=== PATIENT | male | born 1965 | race Caucasian/White ===

== ENCOUNTER 2023-12-25 16:57 | Inpatient (IN) | payer OTHER, SELFPAY ==
[2023-12-25] VITALS (17 sets, daily range): BP systolic 93–157; BP diastolic 67–138; BMI 39.0; BMI 37.7
[2023-12-25 14:04] LABS: % Basophils 0.2 % (0-2); % Eosinophils 0.1 % (0-6); % Immature Granulocytes 0.5 % (0-0.5); % Lymphocytes 6.4 % (20.5-51.1); % Monocytes 6.7 % (1.7-9.3); % Neutrophils 86.1 % (42.2-75.2); Absolute Immature Granulocytes 0.1 10^3/uL (0-0.05); Absolute Lymphocytes 1.1 10^3/uL (1.2-3.4); Absolute Monocytes 1.2 10^3/uL (0.1-0.6); Absolute Neutrophils 15.2 10^3/uL (1.4-6.5); Hematocrit 38.8 % (39.0-52.0); Hemoglobin 13.1 g/dL (13.0-18.0); Mean Corp Hgb Conc. 33.8 g/dL (33.0-37.0); Mean Corpuscular Hgb 32.3 pg (27.0-31.0); Mean Corpuscular Volume 95.6 fL (80.0-94.0); Mean Platelet Volume 10.6 fL (7.4-10.4); Nucleated Red Blood Cells % 5.5 % (-); Platelet Count 178 10^3/uL (130-400); Red Blood Cell Count 4.06 10^6/uL (4.70-6.10); Red Cell Dist. Width 13.7 % (11.5-14.5); White Blood Cell Count 17.7 10^3/uL (4.8-10.8)
[2023-12-25] MEDS: CARDIZEM 10 MG IV (14:11)
[2023-12-25] MEDS: CARDIZEM 125 IV ×2 (14:15→22:03)
--- NOTE | 2023-12-25 14:16 | ED.GENMED ---
History of Present Illness
<Felicita Lewis [employer] CLAIMS ADJUSTER - Last Filed: 12/25/23 18:43>
General
Chief Complaint: Cardiac Symptoms
Source: patient and family (Brother at bedside)
Exam Limitations: none
Time Seen by Provider: 12/25/23 13:44
Nursing documentation reviewed up to this point in time: agreed with
Travel History
Have you had any contact with someone who has COVID-19?: No
Do you have any symptoms of coronavirus? Fever > 100 degrees, chills, cough, shortness of breath, sore throat, loss of taste or smell, muscle aches, or headache?: No
History of Present Illness
History of Present Illness:
58-year-old male with history of A-fib, on Eliquis, Cardiomyopathy, HFrEF EF 25%CHF, 06/2023 acute limb ischemia LLE with occlusion and had emergent revascularization surgery: LLE thrombectomy. Lives alone, presents with his brother at bedside.
Patient states he has had weakness, fatigue, 'a little' shortness of breath past 2 to 3 days. He denies feeling palpitations or chest pain. He denies N/V/D/C. Denies abdominal pain. Patient denies using Tylenol or drinking alcohol.
Past History
<Felicita Lewis, [employer] CLAIMS ADJUSTER - Last Filed: 12/25/23 18:43>
Past History
ED Past Medical History: Arrthythmia (Atrial fibrillation on Eliquis) and CHF
ED Past Surgical History: Other (LLE critical limb ischemia needing revascularization surgery 06/2023)
Patient has exhibited threatening behavior?: No
PSI?: No
Social History
Tobacco: Former smoker
Alcohol: None
Personal: Single
Living: alone
Review of Systems
<Felicita Lewis, [employer] CLAIMS ADJUSTER - Last Filed: 12/25/23 18:43>
Review of Systems
Allergies reviewed?: Yes
All Other Systems: ROS reviewed and negative except as documented in HPI and ROS
Constitutional: Reports fatigue; Denies fever or chills
Respiratory: Reports cough and trouble breathing
Cardiac: Denies chest pain, diaphoresis, palpitations or syncope
ABD/GI: Denies abdominal pain, nausea, vomiting or diarrhea
: Denies dysuria or difficulty voiding
Musculoskeletal: Denies edema
Skin: Reports no symptoms
Neurological: Reports no symptoms
Phy Exam
<Felicita Lewis, [employer] CLAIMS ADJUSTER - Last Filed: 12/25/23 18:43>
Physical Exam
Physical Exam:
GENERAL: No acute distress. A&Ox3.
CONSTITUTIONAL: Afebrile.
EYES: PERRL, conjunctivae normal
ENMT: moist mucus membranes, Pharynx nl
RESPIRATORY: Regular respirations, mildly labored, lungs clear, diminished BS throughout.
CARDIOVASCULAR:Tachycardia rate 140's, no murmurs, no rubs.
GI: Soft, nontender, normal BS
MUSCULOSKELETAL: Moves with ease. Well perfused. Trace bilateral ankle swelling
SKIN: Warm, dry, grayish-tinge
PSYCH: Normal mood and affect. Well kept, interactive and appropriate
NEUROLOGIC: Awake, alert and oriented. No focal neurological deficits
Course
<Felicita Lewis, [employer] CLAIMS ADJUSTER - Last Filed: 12/25/23 18:43>
Orders/Labs/Results
Orders:
Orders
12/25/23 13:28
Electrocardiogram (*1) Urgent
Reason for Study: Chest Pain
EKG- Treatment ONCE
12/25/23 13:57
Acetaminophen Urgent
Comment: ADD-ON
Complete Blood Count/With Diff Urgent
Comprehensive Metabolic Panel Urgent
Hepatitis A Antibody, Total Urgent
Comment: add-on
Hepatitis B Core Ab, Total Urgent
Comment: ADD-ON
Hepatitis B Surface Antibody Urgent
Comment: ADD-ON
Hepatitis C Antibody Urgent
Comment: ADD-ON
NT-proBNP Urgent
Comment: ADD-ON
TSH Urgent
Comment: ADD-ON
Troponin I Urgent
12/25/23 14:04
Diltiazem 125 mg/125 ml Nss [Cardizem] 125 mg in 125 ml IV NOW
Initial dose in mg/hr, then titrate:: 5
Titrate to keep:: Heart rate 80-100 bpm
Titrate by mg/hr:: 5 mg/hr
Frequency of titrations (minutes):: 15
Maximum dose in mg/hr:: 15
Diltiazem HCl [Cardizem] 10 mg IV NOW STA
12/25/23 14:20
Add On- LAB Urgent
Tests Added?: BNP
12/25/23 14:36
Cr Chest Portable [CR Chest Portable - 1 View] Urgent
Comment:
Reason For Exam: chest pressure
Reason Study Needs to be Portable: Patient Unstable
12/25/23 14:40
COVID-19 Antigen Urgent
Source: Nasal Swab
Influenza A+B Rapid Molecular Urgent
EMMIE Source: Nasal Swab
Specimen Description:
12/25/23 15:18
Add On- LAB Urgent
Tests Added?: hepatitis panel
12/25/23 15:29
Add On- LAB Urgent
Tests Added?: TSH
12/25/23 16:01
Protime/PTT Urgent
12/25/23 16:06
Lactic Acid Stat
12/25/23 16:42
CARDIOLOGY CONSULT Routine
Consulting Provider: Jose Angelo
Was physician already notified: Yes
Reason for consult: Afib
GASTROINTESTINAL CONSULT Routine
Consulting Provider: Janie Keys
Was physician already notified: Yes
Reason for consult: elevated lft
Devulcanizer Operator Consult Routine
Consulting Provider: Dereck Henderson
Was physician already notified: Yes
Reason for consult: ICU admission
12/25/23 16:43
Add On- LAB Urgent
Tests Added?: tylenol
Abdomen & Abd Doppler US [US Abd W Abd Doppler] Urgent
Comment:
Reason For Exam: elevated LFTS
12/25/23 16:44
Venous Doppler Lwr Ext Bilat [US Periph Venous LOWER Ext Julio] Urgent
Comment:
Reason For Exam: edema
12/25/23 16:45
Admit/Transfer Patient As Directed
Co-Sign Provider:
Level of Care: Inpatient admission
Assign to:: ICU
Physician / Group: Hospitalist
Diagnosis: Afib,Lactic acidosis,Elevated LFTS
Reason for Hospitalization: Afib,Lactic acidosis,Elevated LFTS
Expected length of stay greater than two midnights?: Yes
ELOS- Estimated Length of Stay in days: 4
I certify the patient meets the requirements for IP care: Yes
Urinalysis Reflex To Culture Urgent
Date Specimen was Collected: 12/25/23
Time Specimen was Collected: 16:51
12/25/23 16:48
Code Status As Directed
Resuscitation Status: Full Code
12/25/23 16:50
Furosemide [Lasix] 20 mg IV NOW STA
12/25/23 16:51
Blood Culture Q30M
EMMIE Source: Blood/Venous
Specimen Description:
12/25/23 16:55
Furosemide [Lasix] 40 mg IV NOW STA
12/25/23 17:57
Lactate Level [Lactic Acid] Q4H
Blood Culture Q30M
EMMIE Source: Blood/Venous
Specimen Description:
12/25/23 18:00
Apixaban [Eliquis] 5 mg PO BID
12/25/23 22:00
Lactate Level [Lactic Acid] Q4H
Abnormal Lab Results
12/25/23 12/25/2312/25/24
13:57 16:01 16:06
WBC 17.7 H 10^3/uL
(4.8-10.8)
RBC 4.06 L 10^6/uL
(4.70-6.10)
Hct 38.8 L %
(39.0-52.0)
MCV 95.6 H fL
(80.0-94.0)
MCH 32.3 H pg
(27.0-31.0)
MPV 10.6 H fL
(7.4-10.4)
Abs Immat Gran (auto) 0.1 H 10^3/uL
(0-0.05)
Absolute Neuts (auto) 15.2 H 10^3/uL
(1.4-6.5)
Absolute Lymphs (auto) 1.1 L 10^3/uL
(1.2-3.4)
Absolute Monos (auto) 1.2 H 10^3/uL
(0.1-0.6)
Neutrophils % 86.1 H %
(42.2-75.2)
Lymphocytes % 6.4 L %
(20.5-51.1)
PT 42.9 H Sec
(11.4-14.6)
Sodium 129 L mmol/L
(135-145)
Chloride 97 L mmol/L
(98-107)
Carbon Dioxide 16 L mmol/L
(22-30)
BUN 50 H mg/dl
(9-20)
Creatinine 2.0 H mg/dL
(0.7-1.3)
Glucose 134 H mg/dl
(70-99)
Lactic Acid 8.0 H* mmol/L
(0.7-2.0)
Total Bilirubin 5.0 H mg/dl
(0.2-1.3)
AST 1708 H* U/L
(17-59)
ALT 1248 H* U/L
(0-50)
Troponin I 0.101 H* ng/ml
Total Protein 6.2 L g/dl
(6.3-8.2)
TSH < 0.02 L uIU/ml
(0.47-4.68)
Acetaminophen < 10 L ug/ml
(10-30)
12/25/23 13:57
12/25/23 13:57
Vital Signs
Initial and Last Documented VS:
Initial Vital Signs
Pulse Resp Pulse Ox
56 18 97
12/25/23 13:27 12/25/23 13:27 12/25/23 13:27
Last Documented Vital Signs
Temp Pulse Resp BP Pulse Ox
97.4 F 131 39 110/83 95
12/25/23 13:30 12/25/23 17:15 12/25/23 17:15 12/25/23 17:12 12/25/23 17:15
<Lauren Coles MD - Last Filed: 12/25/23 16:06>
Orders/Labs/Results
Orders:
Orders
12/25/23 13:28
Electrocardiogram (*1) Urgent
Reason for Study: Chest Pain
EKG- Treatment ONCE
12/25/23 13:57
Acetaminophen Urgent
Comment: ADD-ON
Complete Blood Count/With Diff Urgent
Comprehensive Metabolic Panel Urgent
Hepatitis A Antibody, Total Urgent
Comment: add-on
Hepatitis B Core Ab, Total Urgent
Comment: ADD-ON
Hepatitis B Surface Antibody Urgent
Comment: ADD-ON
Hepatitis C Antibody Urgent
Comment: ADD-ON
NT-proBNP Urgent
Comment: ADD-ON
TSH Urgent
Comment: ADD-ON
Troponin I Urgent
12/25/23 14:04
Diltiazem 125 mg/125 ml Nss [Cardizem] 125 mg in 125 ml IV NOW
Initial dose in mg/hr, then titrate:: 5
Titrate to keep:: Heart rate 80-100 bpm
Titrate by mg/hr:: 5 mg/hr
Frequency of titrations (minutes):: 15
Maximum dose in mg/hr:: 15
Diltiazem HCl [Cardizem] 10 mg IV NOW STA
12/25/23 14:20
Add On- LAB Urgent
Tests Added?: BNP
12/25/23 14:36
Cr Chest Portable [CR Chest Portable - 1 View] Urgent
Comment:
Reason For Exam: chest pressure
Reason Study Needs to be Portable: Patient Unstable
12/25/23 14:40
COVID-19 Antigen Urgent
Source: Nasal Swab
Influenza A+B Rapid Molecular Urgent
EMMIE Source: Nasal Swab
Specimen Description:
12/25/23 15:18
Add On- LAB Urgent
Tests Added?: hepatitis panel
12/25/23 15:29
Add On- LAB Urgent
Tests Added?: TSH
12/25/23 16:01
Protime/PTT Urgent
12/25/23 16:06
Lactic Acid Stat
12/25/23 16:42
CARDIOLOGY CONSULT Routine
Consulting Provider: Jose Angelo
Was physician already notified: Yes
Reason for consult: Afib
GASTROINTESTINAL CONSULT Routine
Consulting Provider: Janie Keys
Was physician already notified: Yes
Reason for consult: elevated lft
Devulcanizer Operator Consult Routine
Consulting Provider: Dereck Henderson
Was physician already notified: Yes
Reason for consult: ICU admission
12/25/23 16:43
Add On- LAB Urgent
Tests Added?: tylenol
Abdomen & Abd Doppler US [US Abd W Abd Doppler] Urgent
Comment:
Reason For Exam: elevated LFTS
12/25/23 16:44
Venous Doppler Lwr Ext Bilat [US Periph Venous LOWER Ext Julio] Urgent
Comment:
Reason For Exam: edema
12/25/23 16:45
Admit/Transfer Patient As Directed
Co-Sign Provider:
Level of Care: Inpatient admission
Assign to:: ICU
Physician / Group: Hospitalist
Diagnosis: Afib,Lactic acidosis,Elevated LFTS
Reason for Hospitalization: Afib,Lactic acidosis,Elevated LFTS
Expected length of stay greater than two midnights?: Yes
ELOS- Estimated Length of Stay in days: 4
I certify the patient meets the requirements for IP care: Yes
Urinalysis Reflex To Culture Urgent
Date Specimen was Collected: 12/25/23
Time Specimen was Collected: 16:51
12/25/23 16:48
Code Status As Directed
Resuscitation Status: Full Code
12/25/23 16:50
Furosemide [Lasix] 20 mg IV NOW STA
12/25/23 16:51
Blood Culture Q30M
EMMIE Source: Blood/Venous
Specimen Description:
12/25/23 16:55
Furosemide [Lasix] 40 mg IV NOW STA
12/25/23 17:57
Lactate Level [Lactic Acid] Q4H
Blood Culture Q30M
EMMIE Source: Blood/Venous
Specimen Description:
12/25/23 18:00
Apixaban [Eliquis] 5 mg PO BID
12/25/23 22:00
Lactate Level [Lactic Acid] Q4H
Abnormal Lab Results
12/25/23 12/25/23 12/25/23
13:57 16:01 16:06
WBC 17.7 H 10^3/uL
(4.8-10.8)
RBC 4.06 L 10^6/uL
(4.70-6.10)
Hct 38.8 L %
(39.0-52.0)
MCV 95.6 H fL
(80.0-94.0)
MCH 32.3 H pg
(27.0-31.0)
MPV 10.6 H fL
(7.4-10.4)
Abs Immat Gran (auto) 0.1 H 10^3/uL
(0-0.05)
Absolute Neuts (auto) 15.2 H 10^3/uL
(1.4-6.5)
Absolute Lymphs (auto) 1.1 L 10^3/uL
(1.2-3.4)
Absolute Monos (auto) 1.2 H 10^3/uL
(0.1-0.6)
Neutrophils % 86.1 H %
(42.2-75.2)
Lymphocytes % 6.4 L %
(20.5-51.1)
PT 42.9 H Sec
(11.4-14.6)
Sodium 129 L mmol/L
(135-145)
Chloride 97 L mmol/L
(98-107)
Carbon Dioxide 16 L mmol/L
(22-30)
BUN 50 H mg/dl
(9-20)
Creatinine 2.0 H mg/dL
(0.7-1.3)
Glucose 134 H mg/dl
(70-99)
Lactic Acid 8.0 H* mmol/L
(0.7-2.0)
Total Bilirubin 5.0 H mg/dl
(0.2-1.3)
AST 1708 H* U/L
(17-59)
ALT 1248 H* U/L
(0-50)
Troponin I 0.101 H* ng/ml
Total Protein 6.2 L g/dl
(6.3-8.2)
TSH < 0.02 L uIU/ml
(0.47-4.68)
Acetaminophen < 10 L ug/ml
(10-30)
12/25/23 13:57
12/25/23 13:57
Vital Signs
Initial and Last Documented VS:
Initial Vital Signs
Pulse Resp Pulse Ox
56 18 97
12/25/23 13:27 12/25/23 13:27 12/25/23 13:27
Last Documented Vital Signs
Temp Pulse Resp BP Pulse Ox
97.4 F 131 39 110/83 95
12/25/23 13:30 12/25/23 17:15 12/25/23 17:15 12/25/23 17:12 12/25/23 17:15
<Felicita Lewis [employer] CLAIMS ADJUSTER - Last Filed: 12/25/23 18:43>
MDM/Problems Addressed
Differential Diagnosis Includes:
CHF, UT, Cardiogenic shock
MDM/Problems Addressed:
58-year-old male with history of A-fib, on Eliquis, Cardiomyopathy, HFrEF EF 25%CHF, 06/2023 acute limb ischemia LLE with occlusion and had emergent revascularization surgery: LLE thrombectomy. Lives alone, presents with his brother at bedside.
Patient states he has had weakness, fatigue, 'a little' shortness of breath past 2 to 3 days. He denies feeling palpitations or chest pain. He denies N/V/D/C. Denies abdominal pain. Patient denies using Tylenol or drinking alcohol.
Last admission 06/2023 records reviewed, Has hx alcohol use disorder as well as smoking. Had similar symptoms of cardiogenic shock, A-fib with RVR was initially diagnosed then.
Patient presents alert cooperative but in moderate distress with tachycardia on arrival. EKG showing A-fib with RVR with a heart rate in the 140s to 150s. Normotensive.
12/25/2023 1518 PM
CBC: WBC 17.7
CMP: Sodium 129, bicarb 16 BUN/creat 50/2.0 GFR 37.74
Anion gap 16
AST 1708
ALT 1248
BNP 57362
Troponin 0.101
Influenza test is negative
COVID test: Negative
12/25/2023 1539 PM
Heart rate in the 130s to 140s, blood pressure remaining stable, patient admits that he is not compliant to taking his medications including Eliquis so we will hold off on cardioversion for now
Dr. Coles in to evaluate patient.
12/25/2023 1636 PM
Chest x-ray radiology report read: No significant change, no acute cardiopulmonary process, mild cardiomegaly
HR minimally improved on Cardizem drip
Critical care statement: A total of 40 minutes of critical care time was provided for this patient. This includes management of unstable vital signs, evaluation of the patient at bedside, reviewing the patient's pertinent medical records, discussion
with consultants, review of old EKGs and review of pertinent medical records. This time with separate from time utilized to perform the aforementioned documented procedures
12/25/2023 1700 PM
Cardiology in to evaluate
Hospitalist in to admit
12/25/2023 1838 PM
RN reports patient is unable to urinate. Bladder scan reveals 500 mL of urine, Wilkerson catheter ordered.
Patient heart rate 118-120 BP 104/72
Chronic conditions affecting care: HTN, Cardiomyopathy, Arrhythmia and PVD
<Felicita Lewis [employer] CLAIMS ADJUSTER - Last Filed: 12/25/23 18:43>
*Critical Care Note
Total Time (30-74mins, 75-104mins- exclusive of procedures): Not Applicable
ED Attending Note
<Felicita Lewis [employer] CLAIMS ADJUSTER - Last Filed: 12/25/23 18:43>
-
Portions of this chart may have been created with voice recognition software.� Occasional wrong word or��sound alike� substitutions may have occurred due to the inherent limitations of voice recognition software.
<Lauren Coles MD - Last Filed: 12/25/23 16:06>
ED Attending Note
Patient seen and examined by attending physician: Yes
I performed the substantive portion of visit, reviewed & personally made and approve the management plan that is documented in note by myself or ERIN.: Yes
ED Attending Note:
On exam, patient appears grayish, pale and clammy. He is fully awake however. He has bilateral lung crackles and has an irregular rapid heartbeat. Patient has cool extremities to the touch. I am worried about cardiogenic shock. Given that
patient is noncompliant with his blood thinners, we cannot cardiovert him. We will discuss case with hospitalist and construction carpenters helper.
35 minutes critical care given to the patient by me including speaking to cardiology, hospitalist, reviewing his recent discharge summary from last year when he was admitted for limb ischemia from cardio embolic process
Discharge Plan
Departure
Patient Disposition: Admit
Date of Disposition: 12/25/23
Time of Disposition: 15:46
Admit to: ICU
Admit to doctor: Ellis
Presentation/result/management discussed w/ accepting MD/DO: Hospitalist
Condition: Serious
Covid-19: Negative COVID-19
Discharge Problem:
Atrial fibrillation with rapid ventricular response, Shortness of breath, Elevated LFTs, NAM (acute kidney injury)
Interventions
Interventions:
*Risk Screen - Suicide Last Done: 12/25/23 13:44
*General Assessment Last Done: 12/25/23 13:44
*Neglect/Abuse Screening Last Done: 12/25/23 13:44
ED- Fall Risk Assessment Last Done: 12/25/23 13:44
*ED COVID-19 Vaccine History Last Done: 12/25/23 13:44
ED- Pulmonary Assessment Last Done: 12/25/23 13:44
ED- Cardiac Assessment Last Done: 12/25/23 13:44
[2023-12-25 14:27] LABS: Albumin 3.6 g/dl (3.5-5.0); Alkaline Phosphatase 115 U/L (38-126); Blood Urea Nitrogen 50 mg/dl (9-20); Calcium 8.8 mg/dl (8.4-10.2); Carbon Dioxide 16 mmol/L (22-30); Chloride 97 mmol/L (98-107); Estimated Creatinine Clearance 56 ml/min; Glucose 134 mg/dl (70-99); Potassium 5.1 mmol/L (3.5-5.1); Sodium 129 mmol/L (135-145); Total Protein 6.2 g/dl (6.3-8.2); eGFR 37.74
[2023-12-25 14:34] LABS: Troponin I 0.101 ng/ml
[2023-12-25 14:41] LABS: ALT (SGPT) 1248 U/L (0-50)
[2023-12-25 14:52] LABS: NT-proBNP 23100 pg/ml
[2023-12-25 15:06] LABS: AST (SGOT) 1708 U/L (17-59)
[2023-12-25 15:28] LABS: COVID-19 Antigen Negative (Negative)
--- NOTE | 2023-12-25 16:13 | CON.CAR ---
Consultation
Consultation Request
Date/Time Consultation Requested: 12/25/2023 at 1600
Date/Time Consultation Performed: 12/25/2023 at 1630
Requesting Provider: Dr. Coles
Performing Provider: Jose Angelo
Reason for Consultation: Atrial fibrillation with rapid ventricular response
Medical History
-
History of Present Illness:
Unfortunate 58-year-old man who was admitted in July with cardioembolic occlusion of the left common femoral artery related to atrial fibrillation and presumed tachycardia mediated cardiomyopathy with an EF of 25%. He had hyperthyroidism. He
was seen once in our office, was to begin amiodarone, but thereafter lost to follow-up. He states he takes his medications 'from time to time' over the last week, he has felt progressively unwell and his brother urged him to come to the emergency
department. He is short of breath, fatigued, initially appeared in a low output state in the ER, was started on diltiazem and now feels better. He says he does not drink much alcohol. He says he quit smoking 2 months ago. 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
but thinks he has last worked over the summer and does not not think he could work now. His brother is at the bedside.
PMH:
Chronic HFrEF
Hypothyroidism
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
Persistent atrial fibrillation, first discovered July 2023
Noncompliance
Depression
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
Past Medical History
Past Medical History: Other (See HPI)
Past Surgical History: Other (Left common femoral embolectomy 2022)
Social History
Tobacco: Smoker
Drug: None
Personal: Single
Living: Alone
Family History
Family History: Reviewed & Not Pertinent
Allergies / Home Medications
Allergy/AdvReac Type Severity Reaction Status Date / Time
No Known Allergies Allergy Unverified 07/13/18 14:03
Medication Instructions Recorded Confirmed Type
apixaban 5 mg tablet (Eliquis) 5 mg PO BID #60 tabs 07/15/23 12/25/23 Rx
carvedilol 6.25 mg tablet 6.25 mg PO BID #60 tabs 07/15/23 12/25/23 Rx
furosemide 40 mg tablet (Lasix) 40 mg PO DAILY #30 tabs 07/15/23 12/25/23 Rx
lisinopril 2.5 mg tablet 2.5 mg PO DAILY #30 tabs 07/15/23 12/25/23 Rx
methimazole 10 mg tablet 10 mg PO BID #60 tabs 07/15/23 12/25/23 Rx
potassium chloride 20 mEq 20 meq PO DAILY #30 tabs 07/15/23 12/25/23 Rx
tablet,extended release(part/cryst)
Review of Systems
-
All other systems: Negative unless noted
Physical Exam
Vital Signs
Temp Pulse Resp BP Pulse Ox
36.3 C 125 35 127/90 100
12/25/23 13:30 12/25/23 16:00 12/25/23 16:00 12/25/23 16:00 12/25/23 16:00
Lab Results
12/25/23 13:57
12/25/23 13:57
Troponin I 0.101 ng/ml H* 12/25/23 13:57
Vbp-D-Kbazvyjujky Pept 80083 pg/ml 12/25/23 13:57
Physical Exam
General: Other (Chronically ill-appearing, some respiratory distress,)
HEENT: Normocephalic
Respiratory: Other (Diminished breath sounds)
Cardiac: Irregular Rhythm, Murmur (Soft systolic murmur at apex) and JVD (Elevated)
Musculoskeletal: Edema (Mild edema)
Skin: Dry
Neuro: AO x 3
Psych: Other (Flat affect)
Impression / Plan
-
Impression:
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
Persistent atrial fibrillation with rapid ventricular response, first diagnosed July 2023
Hyperthyroidism
Shock liver
Acute kidney injury
Noncompliance
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
Tobacco dependance
Echo 07/04/2023: EF is 25%, dilated RV, RV hypokinesis, biatrial dilatation, mild to moderate MR, mild TR, pulmonary artery systolic pressure 45 mmHg
Office ECG July 2023 atrial fibrillation, nonspecific ST and T wave changes, possible lateral MA
Plan:
Difficult situation, he is relatively hypotensive, tachycardic, has evidence of acute hepatic injury and acute kidney injury, presumably related to acute on chronic HFrEF with congestion of the liver and marginal cardiac output.
Amiodarone is contraindicated at this time. Diltiazem is relatively contraindicated in the setting of HFpEF but options are limited. Unclear that he would tolerate a beta-renee. Will add 2 doses of digoxin short-term to assist in rate control.
He may need phenylephrine to support his blood pressure. Norepinephrine may be required.
Start IV heparin
Recheck echocardiogram.
Utility of cardioversion at present limited and contraindicated without transesophageal echocardiography.
Eventually, if he is willing to be compliant, cardioversion, PVI, GDMT all options to consider. PVI is probably a class I indication in his particular case if we can get him through the procedure.
Data Reviewed
-
EKG: Tracing Personally Visualized and interpreted (Atrial fibrillation with rapid ventricular response, left axis deviation, LVH, suspected anterolateral myocardial infarction, possible inferior myocardial infarction)
Radiology: Image Personally Visualized and interpreted (Chest x-ray shows massive cardiomegaly)
Labs: Labs Reviewed by me (Hemoglobin is 13.1 white count is 17.7, platelets 178, sodium 129, potassium 5.1, CO2 is 16, anion gap is 16, BUN/creatinine are 50 and 2.0, creatinine had been 0.9, AST is 1708, ALT is 1248, troponin is 0.101, proBNP is
23,100,)
Old Records: Reviewed
[2023-12-25 16:19] LABS: PT 42.9 Sec (11.4-14.6)
[2023-12-25 16:20] LABS: APTT 33.3 Sec (23.4-35.0)
--- NOTE | 2023-12-25 16:26 | HPS.HSE ---
Family Physician
-
Family Physician: * NONE
Chief Complaint
-
Shortness of breath
History of Present Illness
58-year-old male presented to the hospital with shortness of breath which he stated started 2 days ago. 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 He does not take medicines every single day as he is
supposed to may have missed doses. He does not weigh himself at home or watch salt and fluid restriction. Had some chest pain this morning but not now. Denies any use of Tylenol. Denies any dysuria, fever or cough. Denies any abdominal pain.
Some abdominal distention but no pain.
Medical History
Past Medical History
Past Medical History: Reports CHF
Additional Past Medical History:
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
Past Surgical History: Reports Other
Additional Past Surgical History:
Left lower extremity thrombectomy June 2023
Social History
Tobacco: Former Smoker (Quit less than a year ago)
Alcohol: Occasional (last use was august 2023)
Living: Alone
Employment: Employed
Family History
Family History: CAD (mom)
Allergies / Home Medications
Allergies reflects when Allergies were last updated in [facility].
Home Medications with original date entered in [facility]
Allergy/Medication List:
Allergies
Allergy/AdvReac Type Severity Reaction Status Date / Time
No Known Allergies Allergy Unverified 07/13/18 14:03
Home Medications
apixaban 5 mg tablet (Eliquis) 5 mg PO BID #60 tabs 07/15/23
carvedilol 6.25 mg tablet 6.25 mg PO BID #60 tabs 07/15/23
furosemide 40 mg tablet (Lasix) 40 mg PO DAILY #30 tabs 07/15/23
lisinopril 2.5 mg tablet 2.5 mg PO DAILY #30 tabs 07/15/23
methimazole 10 mg tablet 10 mg PO BID #60 tabs 07/15/23
potassium chloride 20 mEq tablet,extended release(part/cryst) 20 meq PO DAILY #30 tabs 07/15/23
Review of Systems
-
A 12 point ROS was completed and negative except as noted: Yes
Respiratory: Denies Cough
Cardiac: Reports Chest Pain
Abdomen/GI: Reports Other (distension); Denies Abdominal Pain
Physical Exam
Vital Signs
Vital Signs
Temp Pulse Resp BP Pulse Ox
97.4 F 125 35 127/90 100
12/25/23 13:30 12/25/23 16:00 12/25/23 16:00 12/25/23 16:00 12/25/23 16:00
Physical Exam
General: Respiratory Distress
Respiratory: Decreased Breath Sounds (at bases)
Cardiac: S1/S2, Irregular Rhythm, Tachycardia and Murmur (apex)
GI: Soft, Non Tender, Normal Bowel Sounds and Distended
Musculoskeletal: Edema, Left Lower Extremity and Edema, Right Lower Extremity
Neuro: AO x 3 and No Motor Deficits
Psych: Intact Judgment/Insight
Laboratory Results
-
12/25/23 13:57
12/25/23 13:57
Laboratory Results
Lactic Acid Cancelled 12/25/23 15:49
Total Bilirubin 5.0 mg/dl (0.2-1.3) H 12/25/23 13:57
AST 1708 U/L (17-59) H* 12/25/23 13:57
ALT 1248 U/L (0-50) H* 12/25/23 13:57
Alkaline Phosphatase 115 U/L (38-126) 12/25/23 13:57
Troponin I 0.101 ng/ml H* 12/25/23 13:57
Data Reviewed
-
Diagnostic Radiology: Image Personally Visualized and interpreted (No infiltrates)
Medical Tests (Nuc Med, Echo, EKG etc): Image Personally Visualized and interpreted (Atrial fibrillation with rapid ventricular response, left axis deviation, anterolateral infarct age undetermined)
Impression/Plan
-
IMPRESSION/PLAN:
# Shortness of breath
Admit to ICU
Looks fluid overloaded clinically
Thromboembolic disease is a consideration-hold off on CTA given elevated creat. Eliquis being resumed.
Lasix 40 mg IV now
Acute on chronic heart failure with reduced ejection fraction
May have right heart failure also-Never had sleep study
I do not think patient has had a heart catheterization-type of cardiomyopathy unclear
Needs an echo
# Elevated lactic acid
Likely secondary to liver dysfunction and CHF with fluid overload
No evidence of infection
Check a procalcitonin level
Check blood cultures
Urinalysis and culture
Chest x-ray without evidence of pneumonia
If there is any indication on ultrasound or urinalysis we will start antibiotic
Over the patient has fevers we will start antibiotics
# Elevated LFTs
Looks like shock liver however no hypotension noted
Hepatic congestion need to be considered however numbers are too high for that
Check Doppler and ultrasound of the abdomen
Check Tylenol level
Hepatitis panel has been ordered-pending
GI evaluation
# Atrial fibrillation with rapid ventricular rate
Continue Coreg
Cardizem drip
Anticoagulation with Eliquis
Does not look like his current medications list has amiodarone
# Elevated troponin-trend
# Hyperthyroidism
Low TSH noted. Check T4 level
Continue methimazole
# Acute kidney injury
Likely secondary to cardiorenal reasons
Follow on Lasix
Hold lisinopril and potassium
# Hyponatremia-looks hypervolemic
# History of cardioembolic ischemia to left lower extremity status post thrombectomy left common femoral vein June 2023
# Obesity
# Ex-smoker
# DVT prophylaxis-Eliquis
# Full code
CC time 50 minutes
Discussed with ER attending
Discussed with patient's brother at bedside reviewed that he is extremely sick and that his liver tests are really abnormal. Also discussed that patient is being getting admitted to the ICU
Prognosis guarded
[2023-12-25 16:29] LABS: TSH < 0.02 uIU/ml (0.47-4.68)
[2023-12-25 17:10] LABS: Acetaminophen < 10 ug/ml (10-30)
[2023-12-25] MEDS: LASIX 40 MG IV (17:12)
[2023-12-25] MEDS: SODIUM BICARBONATE 650 MG PO ×2 (17:56→21:47)
[2023-12-25 18:28] LABS: Lactic Acid 7.4 mmol/L (0.7-2.0)
[2023-12-25 18:43] LABS: Procalcitonin 3.35 ng/ml (0.0-0.25)
--- NOTE | 2023-12-25 18:49 | W.PN.UPDATE ---
Addendum entered and electronically signed by Marcin Corral MD 12/25/23 18:59:
Difficult situation with elevated INR therefore we will hold Tanya skinner.
Original Note:
Update Note
Progress Note Update
Elevated white count and elevated procalcitonin noted
Unclear if this is related to liver and kidney dysfunction
Will cover with antibiotics pending cultures-Zosyn ordered
U/A and USS pending
[2023-12-25] MEDS: ZOSYN 50 IV (19:44)
[2023-12-25] MEDS: LANOXIN 250 MCG IV (19:44)
[2023-12-25 19:56] LABS: Urine Albumin Trace (Neg - Trace); Urine Bilirubin Negative (Negative); Urine Character Clear (Clear); Urine Color Yellow; Urine Glucose Negative (Negative); Urine Ketone Trace (Negative); Urine Leukocyte Negative (Negative); Urine Nitrite Negative (Negative); Urine Occult Blood Trace (Negative); Urine Specific Gravity 1.025 (<1.030); Urine Urobilinogen 1+ (Neg - 1+)
--- NOTE | 2023-12-25 20:00 | PTCARENOTE ---
pt admit to ICU from ER, oriented x 3, AFib HR 1teens, RA IV x 2, cardizem gtt infusing at 15mg/hr. candelaria cath present, draining nicole urine. CHG cloths. POC discussed, call marshall with pt.
[2023-12-25 20:03] LABS: Urine Hyaline Cast >15 /LPF (0-2)
[2023-12-25 20:04] LABS: Urine Bacteria Few (Negative); Urine Red Blood Cell 0-2 /HPF (0-2); Urine White Cell None Seen /HPF (0-5)
[2023-12-25] MEDS: COREG 6.25 MG PO (21:46)
[2023-12-25] MEDS: TAPAZOLE 10 MG PO (21:47)
[2023-12-25 22:15] LABS: Lactic Acid 6.9 mmol/L (0.7-2.0)
[2023-12-26] VITALS (24 sets, daily range): BP systolic 89–125; BP diastolic 57–108; BMI 37.7
--- NOTE | 2023-12-26 00:30 | PTCARENOTE ---
pt restless/impulsive, removing monitors and 02 multiple times, attempts made to get OOB, diaphoretic, denies pain, attempts made to reorient patient. pt sleeping/restful in between episodes of impulsiveness. HR 70-80s- weaning cardizem gtt down.
no other changes in assessment.
--- NOTE | 2023-12-26 02:00 | PTCARENOTE ---
pt ordered for additional digoxin dose at 0200, HR now 60-70s, cardizem gtt off at 0112, hold dose for now per Reshma & monitor HR.
[2023-12-26] MEDS: ZOSYN 50 IV ×4 (02:30→21:45)
[2023-12-26 02:39] LABS: % Basophils 0.2 % (0-2); % Eosinophils 0.1 % (0-6); % Immature Granulocytes 0.8 % (0-0.5); % Lymphocytes 8.5 % (20.5-51.1); % Monocytes 8.5 % (1.7-9.3); % Neutrophils 81.9 % (42.2-75.2); Absolute Immature Granulocytes 0.1 10^3/uL (0-0.05); Absolute Lymphocytes 1.5 10^3/uL (1.2-3.4); Absolute Monocytes 1.5 10^3/uL (0.1-0.6); Absolute Neutrophils 14.6 10^3/uL (1.4-6.5); Hematocrit 39.8 % (39.0-52.0); Hemoglobin 13.2 g/dL (13.0-18.0); Mean Corp Hgb Conc. 33.2 g/dL (33.0-37.0); Mean Corpuscular Hgb 31.6 pg (27.0-31.0); Mean Corpuscular Volume 95.2 fL (80.0-94.0); Mean Platelet Volume 10.9 fL (7.4-10.4); Nucleated Red Blood Cells % 8.4 % (-); Platelet Count 165 10^3/uL (130-400); Red Blood Cell Count 4.18 10^6/uL (4.70-6.10); Red Cell Dist. Width 13.9 % (11.5-14.5); White Blood Cell Count 17.8 10^3/uL (4.8-10.8)
[2023-12-26 02:53] LABS: Lactic Acid 9.4 mmol/L (0.7-2.0)
[2023-12-26 03:14] LABS: Troponin I 0.099 ng/ml
[2023-12-26 03:15] LABS: ALT (SGPT) 969 U/L (0-50); AST (SGOT) 1059 U/L (17-59); Albumin 3.3 g/dl (3.5-5.0); Alkaline Phosphatase 108 U/L (38-126); Blood Urea Nitrogen 60 mg/dl (9-20); Calcium 8.3 mg/dl (8.4-10.2); Carbon Dioxide 16 mmol/L (22-30); Chloride 98 mmol/L (98-107); Estimated Creatinine Clearance 50 ml/min; Glucose 114 mg/dl (70-99); Magnesium 3.2 mg/dl (1.6-2.3); Potassium 6.3 mmol/L (3.5-5.1); Sodium 129 mmol/L (135-145); Total Bilirubin 6.2 mg/dl (0.2-1.3); Total Protein 5.7 g/dl (6.3-8.2); eGFR 33.66
[2023-12-26 03:27] LABS: TSH < 0.02 uIU/ml (0.47-4.68)
[2023-12-26 03:46] LABS: Vitamin B12 > 1000 pg/ml (239-931)
[2023-12-26] MEDS: NOVOLIN R 10 UNITS IV (04:25)
[2023-12-26] MEDS: DEXTROSE 50% SYRINGE 25 GRAMS IV (04:25)
--- NOTE | 2023-12-26 04:25 | PTCARENOTE ---
K+ 6.3, D50/insulin per MAR, no further changes in assessment.
[2023-12-26] MEDS: SODIUM BICARBONATE 50 MEQ IV (04:26)
--- NOTE | 2023-12-26 05:45 | PTCARENOTE ---
pt continues to remove BP cuff, nasal cannula, pulse ox. pt again reminded of importance of leaving monitors and [address] Sat mid to high 80s on RA when removes NC.
--- NOTE | 2023-12-26 07:03 | CON.GI ---
Addendum entered and electronically signed by Janie Keys MD 12/26/23 16:11:
I saw and examined the patient.
The STEREO COMPILER or PA's note was reviewed and I agree with the note.
Comment: 58-year-old male with history of atrial fibrillation, cardiomyopathy, congestive heart failure, femoral artery occlusion status post thrombectomy in June 2023 presenting with shortness of breath, fluid overload, noted to have
leukocytosis, elevated troponin and lactate but also markedly elevated LFTs with AST and ALT and 1000's range. Reviewing previous LFTs from June 2023, transaminases within normal range, mildly elevated total bilirubin at 1.[address]
scan of the chest/abdomen/pelvis without any abnormalities of the liver. Abdominal ultrasound with Doppler showing hepatomegaly and fatty liver but otherwise no evidence of thrombus.
From a GI standpoint, he denies any abdominal pain, nausea or vomiting. Denies any heartburn or trouble swallowing. No constipation, diarrhea, blood in the stool or black stool. No history of jaundice or hepatitis. No previous GI evaluation with
upper endoscopy or colonoscopy either.
No family history of colon cancer or polyps.
No history of liver disease in the family.
-Elevated transaminases and bilirubin, likely shock liver/ischemic hepatopathy given transaminases were in the thousands range
Abdominal ultrasound and CT scan without any evidence of cirrhosis or hepatic lesions.
Await hepatitis serologies. No history of Tylenol intake.
Keep MAP more than 60
Will trend LFTs, if going up we will add blood work for underlying liver disease panel.
Will follow for now
-Elevated creatinine noted as well.
Original Note:
Consultation
-
Date/Time Consultation Requested: 12/25/23 1645
Date/Time Consultation Performed: 12/26/23 0830
Requesting Provider: Marcin Billingsley MD
Performing Provider: JEANINE Aguayo, Janie Keys MD
Reason for Consultation: increased LFT's
Medical History
Chief Complaint / HPI
Chief Complaint: shortness of breath, weakness
History of Present Illness:
Pt is a 58yo with hx CHF, tachycardia with cardiomyopathy and hypothyroidism, afib, fem artery occlusion with thrombectomy in June 2023 and medical non compliance. He was lost in follow up and now presents with weakness with shortness of breath
with concern for fluid overload. On admission noted with leukocytosis, hyponatremia, elevated troponin elevated lactate, NAM and marked elevated LFT's with bili 5, AST 1708, ALT 1248, alk phos 115. After admission with further rise in K to 6.3.
12/25 US abd with doppler- HM, fatty infiltration of liver, limited doppler, pancreas not well seen. abnormal gallbladder with thickening sludge in gallbladder no stones. possible chronic cholecystitis, small amount free fluid.
Pt denies hx hepatitis or liver issues in past. No currently excessive Tylenol, supplements or new medication. Hx social ETOH last in August and prior tobacco abuse. Pt admits to dry throat and weakness but denies dysphagia, GERD, nasuea,
vomiting, abdominal pain, diarrhea, constipation or rectal bleeding. No EGD or colonoscopy in past. No prior EGD or colonsocopy in past.
Past Medical History
Past Medical History: Arrhythmias (tachy mediated cardiomyopathy, afib ), CHF, Hypothyroidism, Psychiatric (depression) and Other (cardiomolic occlusion of left common femoral artery with thrombectomy 06/2023 medical non compliance)
Social History
Tobacco: Former Smoker
Alcohol: Occasional
Drug: None
Personal: Single
Living: Alone
Employment: Retired
Family History
Family History: Other (no family hx colon CA or polyps)
Allergies / Home Medications
Allergy/AdvReac Type Severity Reaction Status Date / Time
No Known Allergies Allergy Unverified 07/13/18 14:03
Medication Instructions Recorded
apixaban 5 mg tablet (Eliquis) 5 mg PO BID #60 tabs 07/15/23
carvedilol 6.25 mg tablet 6.25 mg PO BID #60 tabs 07/15/23
furosemide 40 mg tablet (Lasix) 40 mg PO DAILY #30 tabs 07/15/23
lisinopril 2.5 mg tablet 2.5 mg PO DAILY #30 tabs 07/15/23
methimazole 10 mg tablet 10 mg PO BID #60 tabs 07/15/23
potassium chloride 20 mEq 20 meq PO DAILY #30 tabs 07/15/23
tablet,extended release(part/cryst)
Review of Systems
-
History Source: Patient
Constitutional: Reports Fatigue
EENT: Reports No Symptoms
Respiratory: Reports Trouble Breathing
Cardiac: Reports No Symptoms
Abdomen/GI: Reports No Symptoms
: Reports No Symptoms
Musculoskeletal: Reports No Symptoms
Skin: Reports No Symptoms
Neurological: Reports Weakness
Endocrine: Reports No Symptoms
Hematologic/Lymphatic: Reports No Symptoms
Vital Signs
Temp Pulse Resp BP Pulse Ox
98.4 F 82 16 103/74 81
12/26/23 04:00 12/26/23 06:30 12/26/23 06:30 12/26/23 06:08 12/26/23 06:30
Physical Exam
Exam
General: Well Developed, Well Nourished and No Apparent Distress
Respiratory: Other (decreased bases )
Cardiac: Regular Rhythm
GI: Soft, Non Tender and Non Distended
Musculoskeletal: No Clubbing and No Cyanosis
Skin: Warm and Dry
Neuro: Awake, Alert and AO x 3
Psych: Calm
Results
WBC 17.8 10^3/uL (4.8-10.8) H 12/26/23 02:23
Hgb 13.2 g/dL (13.0-18.0) 12/26/23 02:23
Hct 39.8 % (39.0-52.0) 12/26/23 02:23
MCV 95.2 fL (80.0-94.0) H 12/26/23 02:23
Plt Count 165 10^3/uL (130-400) 12/26/23 02:23
Absolute Neuts (auto) 14.6 10^3/uL (1.4-6.5) H 12/26/23 02:23
PT 42.9 Sec (11.4-14.6) H 12/25/23 16:01
INR 4.50 12/25/23 16:01
APTT 33.3 Sec (23.4-35.0) 12/25/23 16:01
Sodium 129 mmol/L (135-145) L 12/26/23 02:23
Potassium 6.3 mmol/L (3.5-5.1) H* 12/26/23 02:23
Chloride 98 mmol/L (98-107) 12/26/23 02:23
Carbon Dioxide 16 mmol/L (22-30) L 12/26/23 02:23
BUN 60 mg/dl (9-20) H 12/26/23 02:23
Creatinine 2.2 mg/dL (0.7-1.3) H 12/26/23 02:23
Calcium 8.3 mg/dl (8.4-10.2) L 12/26/23 02:23
Total Bilirubin 6.2 mg/dl (0.2-1.3) H 12/26/23 02:23
AST 1059 U/L (17-59) H* 12/26/23 02:23
ALT 969 U/L (0-50) H* 12/26/23 02:23
Alkaline Phosphatase 108 U/L (38-126) 12/26/23 02:23
Diagnostic Image Results:
12/25/23 US abdomen with doppler
1. � Hepatomegaly. Fatty infiltration of the liver. No biliary ductal dilatation.
2. � Limited Doppler evaluation. Patent vessels. Patient is in atrial fibrillation, limiting evaluation. High resistance waveform in the hepatic artery.
3. � Pancreas not well seen.
4. � Abnormal gallbladder, with gallbladder wall thickening. Negative sonographic Castorena's sign. Sludge in the gallbladder. No definite gallstones. Consider nuclear medicine imaging to further evaluate gallbladder function. This may represent
chronic cholecystitis, however does not meet all of the criteria for acute cholecystitis. There is a small amount of free fluid in the right upper quadrant.
12/25/23 US - LE
IMPRESSION: No evidence of deep venous thrombosis bilaterally.
Prior GI Procedures:
EGD: none
Colonoscopy: none
Assessment / Plan
-
Pt is a 58yo with hx CHF, tachycardia with cardiomyopathy and hypothyroidism, afib, fem artery occlusion with thrombectomy in June 2023 and medical non compliance. He was lost in follow up and now presents with weakness with shortness of breath
with concern for fluid overload. On admission noted with leukocytosis, hyponatremia, elevated troponin elevated lactate, NAM and marked elevated LFT's with bili 5, AST 1708, ALT 1248, alk phos 115. After admission with further rise in K to 6.3.
12/25 US abd with doppler- HM, fatty infiltration of liver, limited doppler, pancreas not well seen. abnormal gallbladder with thickening sludge in gallbladder no stones. possible chronic cholecystitis, small amount free fluid. Tylenol level <10.
-elevated LFT's
-marked elevated INR
-US with some abnormal gallbladder with thickening
-acute on chronic CHF mediated cardiomyopathy
-afib with RVR on admission
-NAM
-elevated lactate
-elevated troponin
-hyponatremia
other medical problems:
-cardioembolic occlusion LLE thrombectomy 06/2023
-hypothyroidism
-tobacco abuse
-medical non compliance
PLAN:
etiology of LFT elevation related to shock liver, hepatic congestion vs other
LFT's with some improvement after admission cont to trend
also noted marked elevated INR 4.96 cont to trend
lactate with some improvement this am
if develops abdominal pain or rise in LFT consider HIDA with some GB thickening on imaging
avoid hepatotoxic medications
hepatitis panel pending
for nephrology evaluation with NAM
will follow
-
-
Thank you for consultation and allowing me to participate in the patient's care. Please call the operations research group manager GI physician during the after hours with any questions or concerns.
[2023-12-26] MEDS: TAPAZOLE 10 MG PO ×2 (07:32→09:36)
[2023-12-26] MEDS: SODIUM BICARBONATE 650 MG PO ×3 (07:33→21:45)
[2023-12-26] MEDS: COREG 6.25 MG PO (07:33)
--- NOTE | 2023-12-26 08:18 | PTCARENOTE ---
Assumed care of pt. Lethargic but DRAKE and oriented. SpO2 87-91% when asleep. Reapplied O2 at 92%. Afib 90s continues. Cardizem gtt off. Labs drawn. Wilkerson draining cloudy yellow urine. Assessment as noted.
[2023-12-26 08:20] LABS: Blood Urea Nitrogen 74 mg/dl (9-20); Calcium 8.1 mg/dl (8.4-10.2); Carbon Dioxide 21 mmol/L (22-30); Chloride 96 mmol/L (98-107); Glucose 127 mg/dl (70-99); Potassium 5.1 mmol/L (3.5-5.1); Sodium 131 mmol/L (135-145)
[2023-12-26 08:28] LABS: Lactic Acid 5.3 mmol/L (0.7-2.0); Troponin I 0.078 ng/ml
[2023-12-26 08:31] LABS: Estimated Creatinine Clearance 57 ml/min; eGFR 40.13
--- NOTE | 2023-12-26 08:51 | CON.INTV ---
Consultation
Consultation Request
Date/Time Consultation Requested: 12/25/2023 - 1641
Date/Time Consultation Performed: 12/26/2023 - 822
Requesting Provider: Dr. Corral
Performing Provider: Dr. Christie
Reason for Consultation: A-fib/AMS
Medical History
-
Chief Complaint: Malaise/SOB
History of Present Illness:
58-year-old M with PMHx of chronic HFrEF with RV systolic dysfunction, A-fib, hypothyroidism and LLE ischemia who p/w weakness, reduced appetite and leg swelling x 2-3 days. Patient was afebrile in the ER, tachycardic to 115, blood pressure 123/96
and saturating 99% on room air. Patient was tachypneic in the ER. Labs showed hyponatremia, metabolic acidosis, acute kidney injury, lactate was elevated at 8, LFTs elevated with AST 1708, ALT 1248, and total bilirubin 5. No acute cardiopulmonary
process was seen on initial chest x-ray. Abdominal ultrasound with Doppler was obtained showing hepatomegaly with fatty liver infiltration without biliary ductal dilation, and gallbladder wall thickening with no definite gallstones and gallbladder
sludge. On evening of 12/25, patient went to [facility] and was hypotensive. He was thus transferred to the ICU for further management. When I saw the patient in the ICU, his BP was 102/45. He continues to be confused but not agitated. He is
continuing to try to take off his gown, but is on sure why he keeps doing it. He does answer my questions appropriately, and he denies any abdominal pain, chest pain, shortness of breath, headache, fevers or chills.
PMHx: Hypothyroidism, LLE ischemia, A-fib on Eliqu, CHF, hypertension, former tobacco use disorder
PSHx: LLE thrombectomy -June 2023; appendectomy
Past Medical History
Past Medical History: Other (Above as per HPI)
Past Surgical History: Other (Above as per HPI)
Social History
Tobacco: Former Smoker (Quit less than 1 year ago)
Alcohol: Occasional
Drug: None
Living: Alone
Employment: Employed
Family History
Family History: CAD (Mother)
Allergies / Home Medications
Allergies
Allergy/AdvReac Type Severity Reaction Status Date / Time
No Known Allergies Allergy Unverified 07/13/18 14:03
Home Medications
Medication Instructions Recorded Confirmed Last Taken Type
apixaban 5 mg tablet (Eliquis) 5 mg PO BID #60 tabs 07/15/23 12/25/23 12/24/23 Rx
carvedilol 6.25 mg tablet 6.25 mg PO BID #60 tabs 07/15/23 12/25/23 12/24/23 Rx
furosemide 40 mg tablet (Lasix) 40 mg PO DAILY #30 tabs 07/15/23 12/25/23 12/24/23 Rx
lisinopril 2.5 mg tablet 2.5 mg PO DAILY #30 tabs 07/15/23 12/25/23 12/24/23 Rx
methimazole 10 mg tablet 10 mg PO BID #60 tabs 07/15/23 12/25/23 12/24/23 Rx
potassium chloride 20 mEq 20 meq PO DAILY #30 tabs 07/15/23 12/25/23 12/24/23 Rx
tablet,extended release(part/cryst)
Review of Systems
-
History Source: Patient
All other systems: Negative unless noted
Vitals / Labs / Diagnostic Testing
Vital Signs
Temp Pulse Resp BP Pulse Ox
97.2 F 73 21 92/66 96
12/26/23 07:40 12/26/23 10:30 12/26/23 10:30 12/26/23 10:00 12/26/23 10:30
Lab Data
12/26/23 02:23
12/26/23 07:47
Laboratory Results
12/25/23 12/26/23
16:01 08:31
PT 42.9 H 46.4 H
INR 4.50 4.96
APTT 33.3
Microbiology
12/25/23 14:40 Nasal Swab Influenza Types A & B (SHERLYN) - Final
Negative for Influenza A & B, NAAT
Negative results must be combined with clinical observations
and patient history.
Nucleic Acid Amplification test (NAAT)performed on the
[employer] platform.
Diagnostic Testing:
Physical Exam
-
HEENT: Normocephalic and Anicteric
Cardiovascular: S1/S2 and Irregular Rhythm (Irregularly irregular)
Respiratory: Clear, Wheeze (Negative), Rales (Negative) and Rhonchi (Negative)
GI: Soft, Non Distended, Non Tender and Normal Bowel Sounds
Neurology: Awake, Alert and Other (Occasionally disoriented)
Skin: Warm and Dry
General: Comfortable and Chills (Negative)
Assessment
-
Assessment: 58-year-old M with PMHx of chronic HFrEF with RV systolic dysfunction, A-fib, hypothyroidism and LLE ischemia who p/w weakness, reduced appetite and leg swelling x 2-3 days. Patient was afebrile in the ER, tachycardic to 115, blood
pressure 123/96 and saturating 99% on room air. Patient was tachypneic in the ER. Labs showed hyponatremia, metabolic acidosis, acute kidney injury, lactate was elevated at 8, LFTs elevated with AST 1708, ALT 1248, and total bilirubin 5. No acute
cardiopulmonary process was seen on initial chest x-ray. Abdominal ultrasound with Doppler was obtained showing hepatomegaly with fatty liver infiltration without biliary ductal dilation, and gallbladder wall thickening with no definite gallstones
and gallbladder sludge. On evening of 12/25, patient went to rapid A-fib and was hypotensive. He was thus transferred to the ICU for further management.
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
Impression:
#Altered mental status - due to TME - given triad of elevated LFTs with AMS and high INR, this is suggestive of acute liver failure; NAM + sepsis also on differential (UTI + cholecystitis as possible sources)
#Atrial fibrillation with RVR - likely being triggered by hyperthyroidism with [id number] TSH
#Supratherapeutic INR with transaminitis and hyperbilirubinemia --> acute liver failure on differential
#Acute on chronic HFrEF with bilateral pleural effusions and ascites
#Lactic acidosis
#Acute kidney injury with hyperkalemia
#Hx of biventricular heart failure with valvular heart disease (moderate MR, severe TR)
#Generalized weakness
#Elevated troponin - likely demand ischemia/type II TX in setting of rapid A-fib
#Abnormal TFTs with undetectable TSH suspicious for hyperthyroidism
#Former tobacco use disorder with centrilobular emphysema seen, and ar risk for COPD
Plan:
- Heart rate control with goal HR<110
- Replete electrolytes with K>4, Mg>2
- Maintain MAP>65
- Trend lactate level until <2 mmol/L
- No need to continue trending troponin given it has already begun to downtrend
- Check viral hepatitis panel, autoimmune serologies, HIV, lipase/amylase and trend LFTs with GGT, LDH and INR
- Check CT head, Chest, Abd/pelvis to assure not missing a focus of infection
- Check HIDA scan
- if fever persists then would sample ascitic fluid if safe enough pocket for paracentesis
- Continue broad spectrum Abx and follow up infectious workup
- renally dose all meds/Abx
- fluid + sodium restriction
- PT/OT once his disorientation has improved
- Maintain euglycemia with goal BG 140�180
- Check/trend ammonia level
- stress ulcer ppx: N/A
- DVT ppx - hold given elevated INR
Critical care statement: A total of 40 minutes of critical care time was provided for this patient today. This includes management of unstable vital signs, evaluation of the patient at bedside, reviewing the patient's pertinent medical records
including radiographs, microbiology, laboratory evaluations, and discussion with primary team, consultants, pharmacy, nutrition, physical therapy, case management, charge nurse, critical care nursing, and respiratory therapy.
Data:
CT Chest/Abd/pelvis 12-26-2023:
Small bilateral pleural effusions. Right greater than left. Improved.
Bibasilar groundglass opacities concerning for pneumonia, moderate on the right. Mild on the left. Both progressed
Minimal ascites. New
New moderate diffuse bladder wall thickening likely at least partially due to limited distention. Cystitis and bladder outlet obstruction not excluded.
Abdominal US 12-25-2023:
1. � Hepatomegaly. Fatty infiltration of the liver. No biliary ductal dilatation.
2. � Limited Doppler evaluation. Patent vessels. Patient is in atrial fibrillation, limiting evaluation. High resistance waveform in the hepatic artery.
3. � Pancreas not well seen.
4. � Abnormal gallbladder, with gallbladder wall thickening. Negative sonographic Castorena's sign. Sludge in the gallbladder. No definite gallstones. Consider nuclear medicine imaging to further evaluate gallbladder function. This may represent
chronic cholecystitis, however does not meet all of the criteria for acute cholecystitis. There is a small amount of free fluid in the right upper quadrant.
TTE 12-26-2023:
�1.� Severely dilated left ventricle (FL-pxl-xzdfvzllk dimension of 7.0 cm) with
�severely reduced left ventricular systolic function.� Global hypokinesis with
�regional variation.� Abnormal septal motion due to underlying bundle branch
�block.� Estimated left ventricular ejection fraction is 10 to 15% by visual
�estimation. Diastolic function indeterminate due to atrial fibrillation.
�2.� Enlarged right ventricular size with reduced RV systolic function.
�3.� Moderately dilated left atrium.
�4.� Moderate mitral regurgitation.
�5.� Severe eccentric tricuspid regurgitation with� pulmonary hypertension.�
�Estimated pulmonary artery systolic pressure of 47 mmHg, assuming a right
�atrial pressure of 15 mmHg.
�6.� Trivial pericardial effusion.
[2023-12-26 08:57] LABS: INR 4.96; PT 46.4 Sec (11.4-14.6)
--- NOTE | 2023-12-26 09:50 | W.PN.HOSP.TC ---
Addendum entered and electronically signed by Marcin Corral MD 12/26/23 10:49:
Patient has a Wilkerson catheter
Original Note:
Today's Communication/Plan
-
LFTs trending down
Check echo
Check VQ scan
Once echo is done if EF is low we will give more Lasix today
Check bladder scan
Hold Eliquis
ID consultation and nephrology consultation requested
Assessment / Plan
Assessment / Plan
Awake and Alert
CVS: S1-S2 normal
Chest: CTA B/L
Abdomen: Soft, NT / Bowel sounds present
Extremities: trace edema, normal pulses
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
Denies any chest pain or abdominal pain
# Shortness of breath
Acute hypoxic resp insufficiency
Looks fluid overloaded clinically
Thromboembolic disease is a consideration-hold off on CTA given elevated creat. Eliquis was held because of elevated INR
Check VQ scan
Lasix 40 mg IV now
Acute on chronic heart failure with reduced ejection fraction
May have right heart failure also-Never had sleep study
I do not think patient has had a heart catheterization-type of cardiomyopathy unclear
Needs an echo
# Elevated lactic acid-Lactic acidosis
Likely secondary to liver dysfunction and CHF with fluid overload
Elevated procal- No source of infection-ID eval.
Blood cultures
Urinalysis and culture
Chest x-ray without evidence of pneumonia
Zosyn started empirically
# Elevated LFTs
Looks like shock liver however no hypotension noted
Hepatic congestion need to be considered however numbers are too high for that
Ultrasound noted with abnormal gallbladder however no evidence of cholecystitis
Doppler without any obstruction
Tylenol level less than 10
Hepatitis panel has been ordered-pending
Check a urine drug screen also
GI evaluation
# Atrial fibrillation with rapid ventricular rate
Change Coreg to metoprolol 50 twice daily
Cardizem drip has been off
Hold Eliquis in the setting of coagulopathy
Does not look like his current medications list has amiodarone-patient is not sure when he took it last
# Coagulopathy likely secondary to liver disease-patient not very compliant with Eliquis
# Elevated [id number] type
# Hyperthyroidism
Low TSH noted.� T4 11
Continue methimazole
Methimazole 20 mg twice daily for 2 days per discussion with endocrine-Dr. Kuhn
Go back to 10 twice daily after that
# Acute kidney injury
Likely secondary to cardiorenal reasons
Follow on Lasix
Metabolic acidosis better with sodium bicarb
Hold lisinopril and potassium
Urinalysis noted with hyaline casts
Check urine sodium-may not be accurate as the patient got a dose of Lasix
Ultrasound of the kidneys with no hydronephrosis
Bladder scan
# Hyponatremia-looks hypervolemic
# History of cardioembolic ischemia to left lower extremity status post thrombectomy left common femoral vein June 2023
# Obesity
# Ex-smoker
# DVT prophylaxis-SCDs
# Full code
Patient is still critically ill and prognosis guarded
Discussed with endocrinology
Discussed with cardiology
Discussed with ICU staff
Total Critical Care Time 35 minutes. I was immediately available to the patient and staff. I personally examined, reviewed labs, diagnostic images/reports, interpretations, treatment plans, discussed patient care with other providers entered
orders as appropriate and documented the medical record.
Anticipated Discharge: > 48 hours
Subjective/Interval History
-
Date of Service: December 26, 2023
Objective Data
-
Labs:
Laboratory Results
12/26/23 12/26/23 12/26/23
02:23 07:47 08:31
WBC 17.8 H
Hgb 13.2
Hct 39.8
Plt Count 165
PT 46.4 H
INR 4.96
Sodium 129 L 131 L
Potassium 6.3 H* 5.1
Chloride 98 96 L
Carbon Dioxide 16 L 21 L
BUN 60 H 74 H
Creatinine 2.2 H 1.9 H
Glucose 114 H 127 H
Calcium 8.3 L 8.1 L
Total Bilirubin 6.2 H
AST 1059 H*
ALT 969 H*
Alkaline Phosphatase 108
Vital Signs:
Vital Signs
Temp Pulse Resp BP Pulse Ox
97.2 F 80 21 105/69 98
12/26/23 07:40 12/26/23 09:30 12/26/23 09:30 12/26/23 09:00 12/26/23 09:30
I&O
12/25/23 12/26/23 12/27/23
06:59 06:59 06:59
Intake Total 425 / 425 50 / 50
Output Total 600 / 850 250 / 250
Balance -175 / -425 -200 / -200
[2023-12-26 10:43] LABS: Amphetamines Negative (Negative); Barbiturates Negative (Negative); Benzodiazepines Negative (Negative); Buprenorphine Negative (Negative); Cocaine Negative (Negative); Marijuana Negative (Negative); Methadone Negative (Negative); Methamphetamines Negative (Negative); Opiates Negative (Negative); Phencyclidine Negative (Negative); Tricyclic Antidepressants Negative (Negative)
--- NOTE | 2023-12-26 10:54 | CM ---
CM following re: discharge planning.
Reviewed pt's chart, met with pt.
Pt is a 58 year old male, admitted with primary dx of Shortness of breath.
Pt is well known to this CM from previous admission. Pt reports he lives in an apartment, 2nd floor, 2FF of steps to get to his apartment. Pt reports he has 2 brothers and a mother, one brother lives with mother and brother Jag lives in [facility]
area. Pt reports he has supportive friend Angie. 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 No DME, VN or SNF history. Pt expressed his desire to return back home at discharge.
PCP: Pt reports he does not have one. A list of PCP providers given to the pt.
Pharmacy: [facility].
D/C plan: home with anticipated no needs. Friend/family to transport at discharge.
CM will follow with discharge plan updates as hospitalization progresses
[2023-12-26 11:28] LABS: Creatine Phosphokinase 111 U/L (55-170)
--- NOTE | 2023-12-26 11:50 | W.PN.CARDCBS ---
Addendum entered and electronically signed by Austen Grove MD 12/26/23 12:03:
Correction no IV heparin with INR 4.5
Original Note:
Today's Communication / Plan
-
Rate control reasonable in atrial fibrillation
Continue IV heparin with plans to change back to Eliquis
Check echocardiogram
Check VQ scan
Renal and ID consults
Impression / Plan
-
Impression:
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
Persistent atrial fibrillation with rapid ventricular response, first diagnosed July 2023
Hyperthyroidism
Shock liver
Acute kidney injury
Noncompliance
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
Tobacco dependance
Echo 07/04/2023: EF is 25%, dilated RV, RV hypokinesis, biatrial dilatation, mild to moderate MR, mild TR, pulmonary artery systolic pressure 45 mmHg
Office ECG July 2023 atrial fibrillation, nonspecific ST and T wave changes, possible lateral IN
Plan:
Heart rate control in atrial fibrillation is reasonable and will cont rate control
cont coreg although bp is borderline low
Amiodarone is contraindicated at this time with hyperthyroidism.
Might consider eventual cardioversion but better chance to stay in SR if hyperthyroidism is treated.
cont IV heparin with eventual plans to restart Eliquis
check echo
Renal function improving and nephrology has been consulted
ID consulted as well
Progress Note - Hide Curer
Subjective
Date of Service: December 26, 2023
No complaints
Objective
Labs:
12/26/23 02:23
12/26/23 07:47
Labs
Hgb 13.2 g/dL (13.0-18.0) 12/26/23 02:23
Hct 39.8 % (39.0-52.0) 12/26/23 02:23
Plt Count 165 10^3/uL (130-400) 12/26/23 02:23
PT 46.4 Sec (11.4-14.6) H 12/26/23 08:31
INR 4.96 12/26/23 08:31
APTT 33.3 Sec (23.4-35.0) 12/25/23 16:01
Sodium 131 mmol/L (135-145) L 12/26/23 07:47
Potassium 5.1 mmol/L (3.5-5.1) 12/26/23 07:47
BUN 74 mg/dl (9-20) H 12/26/23 07:47
Creatinine 1.9 mg/dL (0.7-1.3) H 12/26/23 07:47
Glucose 127 mg/dl (70-99) H 12/26/23 07:47
Troponins
12/25/23 12/25/23 12/26/23
13:57 19:41 02:23
Troponin I 0.101 H* 0.090 H* 0.099 H*
12/26/23
07:47
Troponin I 0.078 H*
Vital Signs and I&O:
Vital Signs
Temp Pulse Resp BP Pulse Ox
97.2 F 73 21 92/66 96
12/26/23 07:40 12/26/23 10:30 12/26/23 10:30 12/26/23 10:00 12/26/23 10:30
Vital Signs
Temp Pulse Resp BP Pulse Ox
97.2 F 73 21 92/66 96
12/26/23 07:40 12/26/23 10:30 12/26/23 10:30 12/26/23 10:00 12/26/23 10:30
Intake & Output
12/24/23 12/25/23 12/26/23 12/27/23
06:59 06:59 06:59 06:59
Intake Total 425 / 425 50 / 50
Output Total 600 / 850 250 / 250
Balance -175 / -425 -200 / -200
Physical Exam
Physical Exam
General: Well developed, well nourished in NAD.
Neck: Supple, no JVD, HJR, carotids +2 B/L, no bruits bilaterally.
Heart: Non displaced PMI, irregular, no murmurs, No S3, S4, no rubs.
Lungs: Scattered rhonchi
Abdomen: Normal bowel sounds, soft, non-tender, non-distended.
Extremities: No clubbing, cyanosis or edema bilaterally.
Neuro: Grossly nonfocal, awake, alert and oriented x3.
--- NOTE | 2023-12-26 11:51 | CARDSERVDEF ---
Echocardiogram with Definity completed after protocol screening completed. Allergies verified.
Patent IV site: _Right hand 20 G PC, site clear____
IV site flushed with 0.9% NaCl pre and post administration.
Diluted bolus method utilized to enhance visualization of ventricular krishnan.
Total volume given: __2__ mL
Patient tolerated all procedures well without complications.
--- NOTE | 2023-12-26 13:00 | PTCARENOTE ---
V/Q scan and CT head/abd/pelvis ongoing. VSS with HR 89-90s afib.
--- NOTE | 2023-12-26 14:47 | W.CON.NEPH ---
Consultation
-
Date/Time Consultation Requested: 12/26 8:24AM
Date/Time Consultation Performed: 12/26 2:47PM
Requesting Provider: Marcin Corral
Performing Provider: Patricia Lechuga
Reason for Consultation: NAM
Medical History
-
Chief Complaint: NAM
History of Present Illness:
Mr. Velazquez is a 58-year-old male with PMH of Afib, cardiomyopathy 2/2 to tachycardia, hypothyroidism, fem artery occlusion with thrombectomy in Jun 2023 who presents to the hospital for SOB that started about 2 days prior to presentation. He does
have a history of CHF and was lost to follow up with cardiology. Patient admits to being non compliant with his medications and states he missed doses. Does not follow fluid or salt restriction. States he feels very fatigued and felt that his heart
was racing athome. Had some chest pain, now resolved. Denies trouble with urination, denies abdominal pain, dysuria, fever, cough or chills. Nephrology is consulted for hyponatremia, lactic acidosis, and NAM noted on admission labs. Of note, his
baseline Cr is around 1.
Past Medical History
History of left lower extremity ischemia with cardioembolic occlusion
paroxysmal atrial fibrillation
CHF (EF 25%)
hypothyroidism
Past Medical History: Arrhythmias and CHF
Past Surgical History: Other (LLE thrombectomy)
Social History
Tobacco: Former Smoker
Alcohol: Occasional
Drug: None
Family History
Family History: Not Pertinent
Allergies / Home Medications
Allergy/AdvReac Type Severity Reaction Status Date / Time
No Known Allergies Allergy Unverified 07/13/18 14:03
Medication Instructions Recorded Confirmed Type
apixaban 5 mg tablet (Eliquis) 5 mg PO BID #60 tabs 07/15/23 12/25/23 Rx
carvedilol 6.25 mg tablet 6.25 mg PO BID #60 tabs 07/15/23 12/25/23 Rx
methimazole 10 mg tablet 10 mg PO BID #60 tabs 07/15/23 12/25/23 Rx
furosemide 40 mg tablet (Lasix) 40 mg PO DAILY Fluid 12/26/23 12/25/23 History
Retention/Swelling
lisinopril 2.5 mg tablet 2.5 mg PO DAILY Heart Failure 12/26/23 12/25/23 History
potassium chloride 20 mEq 20 meq PO DAILY Electrolyte 12/26/23 12/25/23 History
tablet,extended release(part/cryst) Repletion
Review of Systems
-
Constitutional: Weight Gain and Fatigue
EENT: No Symptoms
Respiratory: Cough and Trouble Breathing
Cardiac: Chest Pain and Palpitations
Abdomen/GI: No Symptoms
: No Symptoms
Musculoskeletal: Edema
Skin: No Symptoms
Neurological: No Symptoms
Endocrine: No Symptoms
Hematologic/Lymphatic: No Symptoms
Physical Exam
Vital Signs
Vital Signs
Temp Pulse Resp BP Pulse Ox
97.2 F 73 21 92/66 96
12/26/23 11:30 12/26/23 10:30 12/26/23 10:30 12/26/23 10:00 12/26/23 10:30
Lab Results
WBC 17.8 10^3/uL (4.8-10.8) H 12/26/23 02:23
RBC 4.18 10^6/uL (4.70-6.10) L 12/26/23 02:23
Hgb 13.2 g/dL (13.0-18.0) 12/26/23 02:23
Hct 39.8 % (39.0-52.0) 12/26/23 02:23
Plt Count 165 10^3/uL (130-400) 12/26/23 02:23
Sodium 131 mmol/L (135-145) L 12/26/23 07:47
Potassium 5.1 mmol/L (3.5-5.1) 12/26/23 07:47
Chloride 96 mmol/L (98-107) L 12/26/23 07:47
Carbon Dioxide 21 mmol/L (22-30) L 12/26/23 07:47
BUN 74 mg/dl (9-20) H 12/26/23 07:47
Creatinine 1.9 mg/dL (0.7-1.3) H 12/26/23 07:47
eGFR 40.13 12/26/23 07:47
Glucose 127 mg/dl (70-99) H 12/26/23 07:47
Calcium 8.1 mg/dl (8.4-10.2) L 12/26/23 07:47
Mhp-G-Uooklnlnmkm Pept 83589 pg/ml 12/25/23 13:57
Albumin 3.3 g/dl (3.5-5.0) L 12/26/23 02:23
Physical Exam
General: AOx3
HEENT: PERRL, EOMI and Anicteric
Respiratory: Other (coarse breath sounds bilaterally)
Cardiac: S1/S2 and Other (irregularly irregular)
Breast: N/A
Abdomen: Soft, Nontender and Nondistended
Rectal: Deferred by Provider
Genito-urinary: No Costovertebral Tender and Other (Wilkerson in place)
Musculoskeletal: Edema
Skin: No Rash
Neuro: Nonfocal/Grossly Intact
Hematologic/Lymphatic: No Cervical Lymphadenopathy
Psych: Mood/afflect pleasant
Assessment/Plan
-
Assessment:
NAM (bl Cr 1)
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
Persistent atrial fibrillation with rapid ventricular response, first diagnosed July 2023
Hyperthyroidism
Shock liver
Noncompliance
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
Tobacco dependance
Plan:
- NAM most likely 2/2 to cardiorenal and low flow state
- hyaline casts noted on A
- mild improvement noted with lasix, will give another dose of IV lasix 40mg then scheduled
- likely some component of congestive hepatopathy
- HAGMA from lactic acidosis --> lactate downtrending with diuresis. likely from low output state. would attempt diuresis again today
- hyponatremia from vol overload?
- will obtain uosm and urina Na
- continue to trend BMPs
- low BPs noted, please keep MAP >65
Data Reviewed
-
Radiology: Image Personally Visualized and interpreted (vascular congestion noted on CXR)
CT Scan: Report Reviewed by me
Labs: Labs Reviewed by me
Old Records: Reviewed
[2023-12-26] MEDS: LASIX 40 MG IV (15:21)
--- NOTE | 2023-12-26 15:28 | PTCARENOTE ---
Assessment unchanged. Pt continues to be drowsy/lethargic. Afib 80. Lasix given as ordered.
--- NOTE | 2023-12-26 15:41 | CON.ID ---
Consultation
-
Date/Time Consultation Requested: 12/26/2023 1007
Date/Time Consultation Performed: 12/26/2023 1527
Requesting Provider: Dr. Corral
Performing Provider: Dr. Bruno
Reason for Consultation: Sepsis
Chief Complaint / Past History
History of Present Illness
Buster Velazquez is a 58-year-old man with a significant past medical history of A-fib, CHF and PAD being evaluated at the request of Dr. Corral in regards to sepsis. History is obtained from chart review, along with patient interview, although
history from patient was exceedingly limited secondary to profound somnolence.. According to reviewed notes the patient has had generalized weakness, increasing fatigue and shortness of breath over the past 2 to 3 days. Symptomatology increased to
the point that he felt it necessary to come to the emergency room. Once here he was found to have a marked leukocytosis and significant transaminitis. Additionally, lactate is noted to be elevated, and Infectious Diseases is asked to comment upon
empiric antimicrobial coverage.
At this point in time, the patient only reports ongoing fatigue. He reports possible temperatures at home, although he is not entirely clear on this point. He denies any current pain. He denies any shortness of breath. He denies any abdominal
discomfort.
Past History
Additional Past Medical History:
Atrial fibrillation; on Eliquis
CHF (EF~25%)
Additional Past Surgical History:
Left lower extremity thrombectomy revascularization secondary to critical limb ischemia (June 2023)
Allergy History:
No Known Allergies Allergy (Unverified 07/13/18 14:03)
Medications Reviewed: Yes
Current Antibiotics:
Zosyn 3.375 g IV every 6 hours
Social History
Tobacco: Former Smoker
Alcohol: Occasional
Drug: None
Personal: Single
Living: Alone
Employment: Employed ([employer])
Family History
Family History: Unable to Obtain
Review of Systems
Vital Signs
Temp Pulse Resp BP Pulse Ox
97.2 F 80 22 116/78 95
12/26/23 11:30 12/26/23 14:30 12/26/23 14:30 12/26/23 14:14 12/26/23 14:30
Physical Exam
Physical Exam
Constitutional: Well Developed, Comfortable and Non-toxic
Head: Normocephalic
Eyes: Pupils Equal, Pupils Round, No Conjunctival Hemorrhage and Sclera Anicteric
Oral: No Thrush and No Ulcers
Cardiovascular: Irregular Rate and S1/S2; Negative S3/S4 or Murmur
Pulmonary: Non Labored; Negative Wheezes, Rales or Rhonchi
Gastrointestinal: Soft, Non Tender, Non Distended and Normal Bowel Sounds
Extremities: Negative Edema, Clubbing, Cyanosis, Splinter Hemorrhage or [place]ay Lesions
Musculoskeletal: Negative Joint Swelling or Joint Effusion
Neurological: Awake and Alert
Psychological: Calm
.
Lab / Diagnostic Study Results
12/26/23 02:23
12/26/23 07:47
Abs Immat Gran (auto) 0.1 10^3/uL (0-0.05) H 12/26/23 02:23
Absolute Neuts (auto) 14.6 10^3/uL (1.4-6.5) H 12/26/23 02:23
Absolute Lymphs (auto) 1.5 10^3/uL (1.2-3.4) 12/26/23 02:23
Absolute Monos (auto) 1.5 10^3/uL (0.1-0.6) H 12/26/23 02:23
Absolute Basos (auto) 0.0 10^3/uL (0-0.2) 12/26/23 02:23
Immature Gran % 0.8 % (0-0.5) H 12/26/23 02:23
Neutrophils % 81.9 % (42.2-75.2) H 12/26/23 02:23
Lymphocytes % 8.5 % (20.5-51.1) L 12/26/23 02:23
Monocytes % 8.5 % (1.7-9.3) 12/26/23 02:23
Eosinophils % 0.1 % (0-6) 12/26/23 02:23
Basophils % 0.2 % (0-2) 12/26/23 02:23
PT 46.4 Sec (11.4-14.6) H 12/26/23 08:31
INR 4.96 12/26/23 08:31
Lactic Acid 5.3 mmol/L (0.7-2.0) H* 12/26/23 07:47
Procalcitonin 3.35 ng/ml (0.0-0.25) H* 12/25/23 17:57
Microbiology Results
Micro:
12/25/23 17:57 Blood Culture - Pending
Blood/Venous
12/25/23 16:51 Blood Culture - Pending
Blood/Venous
12/25/23 14:40 Influenza Types A & B (SHERLYN) - Final
Nasal Swab Negative for Influenza A & B, NAAT
Negative results must be combined with clinical observations
and patient history.
Nucleic Acid Amplification test (NAAT)performed on the
[employer] platform.
Imaging:
12/26/2023 CT chest/abdomen/pelvis: No abnormal pleural or parenchymal pulmonary masses. No significant parenchymal airspace disease. No pleural effusion. No abnormal mediastinal masses. No hilar lymphadenopathy. Mild groundglass opacification
in the right lower lung and left lower lung [place].
Assessment / Plan
Leukocytosis
Hyponatremia
NAM
Lactic acidosis
Transaminitis
-Shock liver versus and/or passive congestion
Elevated procalcitonin
- Difficult to interpret in the context of NAM
Hypothyroidism
A-fib
CHF
Recommendations:
Continue with empiric Zosyn for the present.
Blood cultures pending. Will continue to follow.
Monitor white count and temperature curve.
Further antibiotic selection/de-escalation based upon culture data and clinical status.
[2023-12-26 19:03] LABS: Osmolality Urine 548 mOsm/kg (300-900)
[2023-12-26 19:06] LABS: Hepatitis B Core Ab, Total Negative (Negative); Hepatitis B Surface Antibody Negative; Hepatitis C Antibody Negative (Negative)
[2023-12-26 19:38] LABS: Hepatitis A Antibody, Total Negative (Negative)
[2023-12-26 19:41] LABS: Urine Sodium < 5 mmol/L (30-90)
[2023-12-26 20:54] LABS: Free T4 4.75 ng/dl (0.78-2.19)
--- NOTE | 2023-12-26 21:30 | PTCARENOTE ---
pt resting with eyes closed, arousable to voice, full assessment per work list documentation.
[2023-12-26] MEDS: TOPROL XL 50 MG PO (21:45)
[2023-12-26] MEDS: TAPAZOLE 20 MG PO (21:46)
[2023-12-27] VITALS (26 sets, daily range): BP systolic 79–154; BP diastolic 11–137; PULSE 91–93; O2SAT 94–96; BMI 37.3
--- NOTE | 2023-12-27 | PTCARENOTE ---
no changes in assessment.
[2023-12-27] MEDS: ZOSYN 50 IV ×2 (02:42→07:46)
[2023-12-27 04:57] LABS: % Basophils 0.1 % (0-2); % Eosinophils 1.4 % (0-6); % Immature Granulocytes 0.6 % (0-0.5); % Monocytes 7.4 % (1.7-9.3); % Neutrophils 80.5 % (42.2-75.2); Absolute Eosinophils 0.2 10^3/uL (0-0.7); Absolute Immature Granulocytes 0.1 10^3/uL (0-0.05); Absolute Lymphocytes 1.3 10^3/uL (1.2-3.4); Absolute Monocytes 0.9 10^3/uL (0.1-0.6); Absolute Neutrophils 10.1 10^3/uL (1.4-6.5); Hematocrit 43.1 % (39.0-52.0); Hemoglobin 14.1 g/dL (13.0-18.0); Mean Corp Hgb Conc. 32.7 g/dL (33.0-37.0); Mean Corpuscular Hgb 31.4 pg (27.0-31.0); Mean Platelet Volume 11.3 fL (7.4-10.4); Nucleated Red Blood Cells % 2.6 % (-); Platelet Count 164 10^3/uL (130-400); Red Blood Cell Count 4.49 10^6/uL (4.70-6.10); Red Cell Dist. Width 13.8 % (11.5-14.5); White Blood Cell Count 12.5 10^3/uL (4.8-10.8)
[2023-12-27 05:16] LABS: INR 2.77; PT 29.2 Sec (11.4-14.6)
--- NOTE | 2023-12-27 05:34 | PTCARENOTE ---
no changes in pt assessment.
[2023-12-27 05:51] LABS: ALT (SGPT) 896 U/L (0-50); AST (SGOT) 378 U/L (17-59); Albumin 2.9 g/dl (3.5-5.0); Alkaline Phosphatase 124 U/L (38-126); Amylase 40 U/L (30-110); Blood Urea Nitrogen 75 mg/dl (9-20); Calcium 7.8 mg/dl (8.4-10.2); Carbon Dioxide 29 mmol/L (22-30); Chloride 101 mmol/L (98-107); Estimated Creatinine Clearance 72 ml/min; GGTP 41 U/L (15-73); Glucose 124 mg/dl (70-99); LDH 400 U/L (120-246); Lipase 186 U/L (23-300); Potassium 4.1 mmol/L (3.5-5.1); Sodium 135 mmol/L (135-145); Total Bilirubin 5.4 mg/dl (0.2-1.3); Total Protein 5.5 g/dl (6.3-8.2)
[2023-12-27] MEDS: TOPROL XL 50 MG PO ×2 (07:46→20:21)
[2023-12-27] MEDS: SODIUM BICARBONATE 650 MG PO (07:46)
[2023-12-27] MEDS: LASIX 40 MG IV ×2 (07:46→15:42)
[2023-12-27] MEDS: TAPAZOLE 20 MG PO ×2 (07:46→20:21)
--- NOTE | 2023-12-27 08:02 | W.PN.INTV ---
Today's Communication / Plan
Recommendations
Abx as per ID
Aspiration precautions
Heart rate control
Replete K>4, Mg>2
Check HIDA scan --> will be done tomorrow --> keep NPO p MN
Patient stable for downgrade to IMU. He remains on room air saturating over 94%, heart rate is controlled and he is HDN stable and although lethargic he is protecting his airway. Trade Specialist/pulmonary service will now sign off. Please reconsult
if there are any additional questions/concerns or if respiratory status deteriorates.
Assessment
-
Assessment: 58-year-old M with PMHx of chronic HFrEF with RV systolic dysfunction, A-fib, hypothyroidism and LLE ischemia who p/w weakness, reduced appetite and leg swelling x 2-3 days. Patient was afebrile in the ER, tachycardic to 115, blood
pressure 123/96 and saturating 99% on room air. Patient was tachypneic in the ER. Labs showed hyponatremia, metabolic acidosis, acute kidney injury, lactate was elevated at 8, LFTs elevated with AST 1708, ALT 1248, and total bilirubin 5. No acute
cardiopulmonary process was seen on initial chest x-ray. Abdominal ultrasound with Doppler was obtained showing hepatomegaly with fatty liver infiltration without biliary ductal dilation, and gallbladder wall thickening with no definite gallstones
and gallbladder sludge. On evening of 12/25, patient went to rapid A-fib and was hypotensive. He was thus transferred to the ICU for further management.
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
Impression:
#Altered mental status - due to TME - given triad of elevated LFTs with AMS and high INR, this is suggestive of acute liver failure; NAM + sepsis also contributing (UTI + cholecystitis as possible sources)
#Streptococcal bacteremia (seen on BCx from 12/25/2023)
#Atrial fibrillation with RVR - heart rate now controlled - likely was triggered by hyperthyroidism with undetectable TSH and elevated free T4
#Supratherapeutic INR with transaminitis and hyperbilirubinemia --> acute liver failure on differential
#Acute on chronic HFrEF with bilateral pleural effusions and ascites
#Lactic acidosis -improved
#Acute kidney injury with hyperkalemia -NAM improved, hyperkalemia resolved
#Hx of biventricular heart failure with valvular heart disease (moderate MR, severe TR)
#Generalized weakness
#Elevated troponin - likely demand ischemia/type II [place] in setting of rapid A-fib -troponin peaked at 0.101 on 12/25/2023
#Primary hyperthyroidism with undetectable TSH and elevated fT4
#Former tobacco use disorder with centrilobular emphysema seen, and ar risk for COPD
Plan:
- Check HIDA scan and if gallbaldder dysfunction then consult surgery and IR for treatment
- neurochecks q2-4hr
- Heart rate control with goal HR<110
- Replete electrolytes with K>4, Mg>2
- Maintain MAP>65
- Trend lactate level until <2 mmol/L
- No need to continue trending troponin given it has already begun to downtrend
- Follow up: viral hepatitis panel (negative), autoimmune serologies, HIV (negative), lipase/amylase (WNL) and trend LFTs with GGT, LDH and INR
- if fever recurs then would sample ascitic fluid if safe enough pocket for paracentesis
- Continue broad spectrum Abx and follow up infectious workup --> ID changed Abx from Zosyn to Unasyn
- renally dose all meds/Abx
- fluid + sodium restriction
- PT/OT once his disorientation has improved
- Maintain euglycemia with goal BG 140�180
- Check/trend ammonia level
- stress ulcer ppx: N/A
- DVT ppx - hold given elevated INR
Patient stable for downgrade to IMU. He remains on room air saturating over 94%, heart rate is controlled and he is hemodynamically stable and although lethargic he is protecting his airway. Trade Specialist/pulmonary service will now sign off. Please
reconsult if there are any additional questions/concerns or if respiratory status deteriorates.
Data:
CT Chest/Abd/pelvis 12-26-2023:
Small bilateral pleural effusions. Right greater than left. Improved.
Bibasilar groundglass opacities concerning for pneumonia, moderate on the right. Mild on the left. Both progressed
Minimal ascites. New
New moderate diffuse bladder wall thickening likely at least partially due to limited distention. Cystitis and bladder outlet obstruction not excluded.
Abdominal US 12-25-2023:
1. � Hepatomegaly. Fatty infiltration of the liver. No biliary ductal dilatation.
2. � Limited Doppler evaluation. Patent vessels. Patient is in atrial fibrillation, limiting evaluation. High resistance waveform in the hepatic artery.
3. � Pancreas not well seen.
4. � Abnormal gallbladder, with gallbladder wall thickening. Negative sonographic Castorena's sign. Sludge in the gallbladder. No definite gallstones. Consider nuclear medicine imaging to further evaluate gallbladder function. This may represent
chronic cholecystitis, however does not meet all of the criteria for acute cholecystitis. There is a small amount of free fluid in the right upper quadrant.
TTE 12-26-2023:
�1.� Severely dilated left ventricle (PI-mde-xdhsiyrat dimension of 7.0 cm) with
�severely reduced left ventricular systolic function.� Global hypokinesis with
�regional variation.� Abnormal septal motion due to underlying bundle branch
�block.� Estimated left ventricular ejection fraction is 10 to 15% by visual
�estimation. Diastolic function indeterminate due to atrial fibrillation.
�2.� Enlarged right ventricular size with reduced RV systolic function.
�3.� Moderately dilated left atrium.
�4.� Moderate mitral regurgitation.
�5.� Severe eccentric tricuspid regurgitation with� pulmonary hypertension.�
�Estimated pulmonary artery systolic pressure of 47 mmHg, assuming a right
�atrial pressure of 15 mmHg.
�6.� Trivial pericardial effusion.
Subjective Dataa
Subjective Data
Date of Service:
Date of Service: December 27, 2023
Chief Complaint: Trade Specialist Follow Up
Subjective:
Seen this AM. Sleepy but answers questions appropraitely. BP 133/76, HR 94 and SpO2 93% on room air. He has been off cardizem since yesterday AM.
Review of Systems
General: Other (Negative unless mentioned above)
Objective Data
Data Reviewed
Vital Signs / I&O / Oxygen:
Vital Signs
Temp Pulse Resp BP Pulse Ox
97.6 F 82 22 130/73 92
12/27/23 08:17 12/27/23 08:00 12/27/23 08:00 12/27/23 08:00 12/27/23 08:03
Intake and Output
12/26/23 12/27/23 12/28/23
06:59 06:59 06:59
Intake Total 425 / 425 1130 / 1130 50 / 50
Output Total 600 / 850 2705 / 2705 310 / 310
Balance -175 / -425 -1575 / -1575 -260 / -260
SaO2 92
Nasal Cannula flow liters per 2
minute
Physical Exam
General: Comfortable
HEENT: Normocephalic and Anicteric
Cardiovascular: Irregular Rhythm and Other (Normal rate)
Respiratory: Clear, Wheeze (negative), Crackles (negative) and Rhonchi (negative)
GI: Soft, Non Distended and Non Tender
Neurology: No Motor Deficits and Lethargic (Easily arousable but then goes back to sleep)
Skin: Warm and Dry
Labs/Micro/Reports
Lab Data
12/27/23 04:37
12/27/23 04:37
Laboratory Results
12/27/23
04:36
PT 29.2 H
INR 2.77 D
Microbiology
12/25/23 17:57 Blood/Venous Blood Culture - Preliminary
Positive culture in progress
12/25/23 17:57 Blood/Venous Gram Stain - Preliminary
12/25/23 16:51 Blood/Venous Blood Culture - Preliminary
No Growth in 24 hours- Final report to follow
12/25/23 14:40 Nasal Swab Influenza Types A & B (SHERLYN) - Final
Negative for Influenza A & B, NAAT
Negative results must be combined with clinical observations
and patient history.
Nucleic Acid Amplification test (NAAT)performed on the
[employer] platform.
--- NOTE | 2023-12-27 08:18 | PTCARENOTE ---
Assumed care of pt. Lethargic but DRAKE and oriented. SpO2 87-91% when asleep. Reapplied O2 at 92%. Afib 80s continues. Assessment as noted.
--- NOTE | 2023-12-27 09:20 | W.PN.GI.CBS2 ---
Addendum entered and electronically signed by Jamal Munoz MD 12/27/23 19:05:
I saw and examined the patient.
The PA's note was reviewed and I agree with the note.
Comment:
LFT improving. Current suspicion for elevated LFT was possible shock liver. Viral hep panel -ve, few tests pending. Will follow.
Original Note:
Today's Communication / Plan
-
etiology of LFT elevation related to shock liver, hepatic congestion vs other
LFT's and INR improving cont to trend
if develops abdominal pain or rise in LFT consider HIDA with some GB thickening on imaging
avoid hepatotoxic medications
hepatitis panel neg
appreciate cards input
nephrology following evaluation with NAM on admission with improvement
remains on empiric abx per ID
will follow
Assessment / Plan
-
Pt is a 58yo with hx CHF, tachycardia with cardiomyopathy and hypothyroidism, afib, fem artery occlusion with thrombectomy in June 2023 and medical non compliance. He was lost in follow up and now presents with weakness with shortness of breath
with concern for fluid overload. On admission noted with leukocytosis, hyponatremia, elevated troponin elevated lactate, NAM and marked elevated LFT's with bili 5, AST 1708, ALT 1248, alk phos 115. After admission with further rise in K to 6.3.
12/25 US abd with doppler- HM, fatty infiltration of liver, limited doppler, pancreas not well seen. abnormal gallbladder with thickening sludge in gallbladder no stones. possible chronic cholecystitis, small amount free fluid. Tylenol level <10.
-elevated LFT's
-marked elevated INR
-US with some abnormal gallbladder with thickening
-acute on chronic CHF mediated cardiomyopathy
-afib with RVR on admission
-NAM
-elevated lactate
-elevated troponin
-hyponatremia
other medical problems:
-cardioembolic occlusion LLE thrombectomy 06/2023
-hypothyroidism
-tobacco abuse
-medical non compliance
PLAN:
etiology of LFT elevation related to shock liver, hepatic congestion vs other
LFT's and INR improving cont to trend
if develops abdominal pain or rise in LFT consider HIDA with some GB thickening on imaging
avoid hepatotoxic medications
hepatitis panel neg
appreciate cards input
nephrology following evaluation with NAM on admission with improvement
remains on empiric abx per ID
will follow
Subjective
Subjective
Date of Service: December 27, 2023
2 gram K diet, no stools feeling better
Objective
Data Reviewed
Laboratory Data:
Laboratory Results
12/27/23 04:37
12/27/23 04:37
Laboratory Results
PT 29.2 Sec (11.4-14.6) H 12/27/23 04:36
INR 2.77 D 12/27/23 04:36
APTT 33.3 Sec (23.4-35.0) 12/25/23 16:01
Magnesium 3.2 mg/dl (1.6-2.3) H 12/26/23 02:23
Total Bilirubin 5.4 mg/dl (0.2-1.3) H 12/27/23 04:37
AST 378 U/L (17-59) H 12/27/23 04:37
ALT 896 U/L (0-50) H* 12/27/23 04:37
Alkaline Phosphatase 124 U/L (38-126) 12/27/23 04:37
Amylase 40 U/L (30-110) 12/27/23 04:37
Lipase 186 U/L (23-300) 12/27/23 04:37
Vital Signs and I&O:
Vital Signs
Temp Pulse Resp BP Pulse Ox
97.6 F 82 22 130/73 92
12/27/23 08:17 12/27/23 08:00 12/27/23 08:00 12/27/23 08:00 12/27/23 08:03
I&O
12/26/23 12/27/23 12/28/23
06:59 06:59 06:59
Intake Total 425 / 425 1130 / 1130 50 / 50
Output Total 600 / 850 2705 / 2705 310 / 310
Balance -175 / -425 -1575 / -1575 -260 / -260
Physical Exam
Physical Exam
HEENT: Other (mild jaundice )
Cardiology: Normal Sinus Rhythm
Pulmonary: Clear
GI: Soft, Non Distended and Non Tender
Extremities: No Edema
Neuro: Non Focal
--- NOTE | 2023-12-27 09:51 | W.PN.HOSP.TC ---
Today's Communication/Plan
-
Discussed with case management- check pricing for Jardiance and Entresto ( sent scripts per request to check)- Hold off on starting till renal function recovers
Lasix 40 IV BID
Repeat BC
Eliquis tinight
PT OT
Transfer to Tele/IVU if OK with flight attendant ramp and cardiology
Assessment / Plan
Assessment / Plan
Awake and Alert
CVS: S1-S2 normal
Chest: CTA B/L
Abdomen: Soft, NT / Bowel sounds present
Extremities: edema
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
Head CT-no acute changes , sinusitis
CT of the chest abdomen and pelvis-small bilateral pleural effusions groundglass opacities.Moderate on the right mild on the left, minimal ascites, new moderate diffuse bladder wall thickening
# Shortness of breath
Acute hypoxic resp insufficiency
Lasix 40 mg IV twice daily
Acute on chronic heart failure with reduced ejection fraction
Acute right heart failure
I do not think patient has had a heart catheterization-type of cardiomyopathy unclear
Echo 12/26/2023-severely reduced LV with severely reduced LV systolic function. Global hypokinesis with regional variation. Abnormal septal motion due to underlying bundle branch block. Ejection fraction 10 to 15%. Diastolic function
indeterminate due to A-fib. Enlarged RV size and reduced RV systolic function. Moderately dilated LA. Moderate MR. Severe eccentric TR with pulmonary hypertension. Pulm artery pressure 47 mmHg.
# Elevated lactic acid-Lactic acidosis
Likely secondary to liver dysfunction and CHF with fluid overload
Elevated procal- No source of infection-ID eval.
Blood cultures with gram-positive cocci in chains
Urinalysis and culture-negative
Unclear if the CT scan finding is pneumonia versus CHF
Zosyn -continue
No vegetations on echo
Repeat blood cultures today
# Elevated LFTs
Looks like shock liver however no hypotension noted
Shock liver could have been secondary to hepatic congestion from really low ejection fraction
Ultrasound noted with abnormal gallbladder however no evidence of cholecystitis
Doppler without any obstruction
Tylenol level less than 10
Hepatitis panel has been ordered-pending
Urine drug screen negative
GI evaluation-appreciated
# Atrial fibrillation with rapid ventricular rate
Changed Coreg to metoprolol 50 twice daily
Cardizem drip has been off
Restart Eliquis as INR is better
Does not look like his current medications list has amiodarone-patient is not sure when he took it last
# Coagulopathy likely secondary to liver disease-patient not very compliant with Eliquis-can restart Eliquis tonight
# Elevated ljszbcie-vmk-RS type
# Hyperthyroidism
Low TSH noted.� T4 11
Continue methimazole
Methimazole 20 mg twice daily for 2 days per discussion with endocrine-Dr. Kuhn
Go back to 10 twice daily after that
# Acute kidney injury
Likely secondary to cardiorenal reasons
Follow on Lasix
Metabolic acidosis better with sodium bicarb-stop sodium bicarb
Hold lisinopril and potassium
Urinalysis noted with hyaline casts
Ultrasound of the kidneys with no hydronephrosis
Bladder scan-to be continued
# Hyponatremia-looks hypervolemic
Resolving with Lasix
# History of cardioembolic ischemia to left lower extremity status post thrombectomy left common femoral vein June 2023
# Obesity
# Ex-smoker
# DVT prophylaxis-restart Eliquis
# Full code
Discussed with ICU staff
Discussed with case management- check pricing for Jardiance and Entresto ( sent scripts per request to check)
Discussed with the patient in detail regarding the need to be compliant with medicines otherwise could lead complications, heart failure which could to his . I spoke to patient's brother and he confirmed that he would be the electrical contacts adjuster and
not his mother. We reviewed everything what I told the patient about arrhythmias, worsening heart muscle function, heart failure even if he does not take medicines as he is supposed to. We also did discuss that heart muscle function can
recover with medicines taken as prescribed
time 55 minutes
Anticipated Discharge: > 48 hours
Subjective/Interval History
-
Date of Service: December 27, 2023
Objective Data
-
Labs:
Laboratory Results
12/27/23 12/27/23
04:36 04:37
WBC 12.5 H
Hgb 14.1
Hct 43.1
Plt Count 164
PT 29.2 H
INR 2.77 D
Sodium 135
Potassium 4.1
Chloride 101
Carbon Dioxide 29
BUN 75 H
Creatinine 1.5 H
Glucose 124 H
Calcium 7.8 L
Total Bilirubin 5.4 H
AST 378 H
ALT 896 H*
Alkaline Phosphatase 124
Vital Signs:
Vital Signs
Temp Pulse Resp BP Pulse Ox
97.6 F 82 22 130/73 92
12/27/23 08:17 12/27/23 08:00 12/27/23 08:00 12/27/23 08:00 12/27/23 08:03
I&O
12/26/23 12/27/23 12/28/23
06:59 06:59 06:59
Intake Total 425 / 425 1130 / 1130 50 / 50
Output Total 600 / 850 2705 / 2705 310 / 310
Balance -175 / -425 -1575 / -1575 -260 / -260
--- NOTE | 2023-12-27 12:54 | W.PN.ID1 ---
Date of Service
Date of Service: December 27, 2023
Today's Communication
Continue abx. Narrow to Unasyn.
Assessment / Plan
Leukocytosis
- improving
Hyponatremia
NAM
- improved
Lactic acidosis
Transaminitis
-Shock liver versus and/or passive congestion
- numbers trending down.
Elevated procalcitonin
- Difficult to interpret in the context of NAM
Positive blood culture with Strep spp.
- not clear if real or contaminate.
Hypothyroidism
A-fib
CHF
Recommendations:
Continue antibiotics. De-escalate to Unasyn.
Repeat blood cultures obtained. Will monitor for clearance.
Monitor white count and temperature curve.
Further antibiotic selection/de-escalation based upon culture data and clinical status.
����������������������������������������������������������
Chief Complaint
-: Leukocytosis and Bacteremia
Subjective / Review of Systems
Review of Systems: No Fever, No Chills, No Cough, No Sputum Production, No Abdominal Pain, No Nausea and No Dysuria
Vital Signs / Physical Exam
Vital Signs
Vital Signs
Temp Pulse Resp BP Pulse Ox
97.4 F 84 33 119/92 95
12/27/23 12:11 12/27/23 11:00 12/27/23 11:00 12/27/23 11:00 12/27/23 11:00
Physical Exam
Constitutional: Comfortable and Non-toxic
Head: Normocephalic
Eyes: No Conjunctival Hemorrhage and Sclera Anicteric
Oropharyngeal: Negative Thrush
Cardiovascular: S1/S2; Negative S3/S4 or Murmur
Pulmonary: Non Labored; Negative Wheezes or Rales
Gastrointestinal: Soft, Non Tender, Non Distended, Normal Bowel Sounds, No Rebound and No Guarding
Extremities: Negative Edema, Cyanosis or Erythema
Neurological: Awake and Alert
Psychological: Calm
Objective Data
Lab Data
Lab Results
12/27/23 04:37
12/27/23 04:37
PT 29.2 Sec (11.4-14.6) H 12/27/23 04:36
INR 2.77 D 12/27/23 04:36
APTT 33.3 Sec (23.4-35.0) 12/25/23 16:01
Estimated Creat Clear 72 ml/min 12/27/23 04:37
Lactic Acid 5.3 mmol/L (0.7-2.0) H* 12/26/23 07:47
Total Bilirubin 5.4 mg/dl (0.2-1.3) H 12/27/23 04:37
GGT 41 U/L (15-73) 12/27/23 04:37
AST 378 U/L (17-59) H 12/27/23 04:37
ALT 896 U/L (0-50) H* 12/27/23 04:37
Alkaline Phosphatase 124 U/L (38-126) 12/27/23 04:37
Amylase 40 U/L (30-110) 12/27/23 04:37
Most recent labs reviewed.
Micro Results:
12/27/23 10:39 Blood Culture - Pending
Blood/Venous
12/25/23 17:57 Blood Culture - Preliminary
Blood/Venous Streptococcus species
Gram Stain - Preliminary
12/27/23 10:52 Blood Culture - Pending
Blood/Venous
12/25/23 16:51 Blood Culture - Preliminary
Blood/Venous No Growth in 24 hours- Final report to follow
12/25/23 14:40 Influenza Types A & B (SHERLYN) - Final
Nasal Swab Negative for Influenza A & B, NAAT
Negative results must be combined with clinical observations
and patient history.
Nucleic Acid Amplification test (NAAT)performed on the
[employer] platform.
Imaging:
12/26/2023 CT chest/abdomen/pelvis: No abnormal pleural or parenchymal pulmonary masses. No significant parenchymal airspace disease. No pleural effusion. No abnormal mediastinal masses. No hilar lymphadenopathy. Mild groundglass opacification
in the right lower lung and left lower lung [place].
--- NOTE | 2023-12-27 13:35 | W.PN.NEPH.PH ---
Today's Communication / Plan
-
- Cr improving with diuresis
- continue lasix
Assessment/Plan
-
Assessment:
NAM (bl Cr 1)
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
Persistent atrial fibrillation with rapid ventricular response, first diagnosed July 2023
Hyperthyroidism
Shock liver
Noncompliance
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
Tobacco dependance
Plan:
- NAM most likely 2/2 to cardiorenal and low flow state
- hyaline casts noted on A
- continue lasix as Cr and LFTs improving with diuresis
- likely some component of congestive hepatopathy
- HAGMA from lactic acidosis --> lactate downtrending with diuresis. likely from low output state. would attempt diuresis again today and continue
-hy hyponatremia likely from cardiac overload
- continue to trend BMPs
- low BPs noted, please keep MAP >65
-
-
Date of Service: December 27, 2023
CC / HPI / ROS
-
Chief Complaint:
NAM
History of Present Illness:
Afib
NAM (bl Cr 1)
Lactic acidosis
Review of Systems:
feeling improved today
cough
Labs
-
Labs:
WBC 12.5 10^3/uL (4.8-10.8) H 12/27/23 04:37
RBC 4.49 10^6/uL (4.70-6.10) L 12/27/23 04:37
Hgb 14.1 g/dL (13.0-18.0) 12/27/23 04:37
Hct 43.1 % (39.0-52.0) 12/27/23 04:37
Plt Count 164 10^3/uL (130-400) 12/27/23 04:37
Sodium 135 mmol/L (135-145) 12/27/23 04:37
Potassium 4.1 mmol/L (3.5-5.1) 12/27/23 04:37
Chloride 101 mmol/L (98-107) 12/27/23 04:37
Carbon Dioxide 29 mmol/L (22-30) 12/27/23 04:37
BUN 75 mg/dl (9-20) H 12/27/23 04:37
Creatinine 1.5 mg/dL (0.7-1.3) H 12/27/23 04:37
eGFR 53.30 12/27/23 04:37
Glucose 124 mg/dl (70-99) H 12/27/23 04:37
Calcium 7.8 mg/dl (8.4-10.2) L 12/27/23 04:37
Crn-E-Uqaurmtuukf Pept 23058 pg/ml 12/25/23 13:57
Albumin 2.9 g/dl (3.5-5.0) L 12/27/23 04:37
Physical Exam
-
Vital Signs:
Vital Signs
Temp Pulse Resp BP Pulse Ox
97.4 F 84 33 119/92 95
12/27/23 12:11 12/27/23 11:00 12/27/23 11:00 12/27/23 11:00 12/27/23 11:00
Cardiovascular:: Irregular rate and rhythm
Respiratory:: Bilateral: Coarse
Lung Excursion:: Normal
Abdomen:: Nontender and Soft
Bowel Sounds:: Normal
Extremity Edema:: +1: Bilateral:
Wilkerson Catheter: Yes
[2023-12-27] MEDS: UNASYN IV ×2 (13:38→20:21)
[2023-12-27 14:22] LABS: HIV Combo Negative (Negative)
--- NOTE | 2023-12-27 14:27 | PTCARENOTE ---
Pt OOB to chair eith PT/OT-see note. Incontinent of stool. 12 beat run of VT noted. Wilkerson cath removed.
--- NOTE | 2023-12-27 14:28 | W.PN.CARDCBS ---
Addendum entered and electronically signed by Austen Grove MD 12/27/23 15:22:
I saw and examined the patient.
The ROCK DUSTER or PA's note was reviewed and I agree with the note.
Comment: General: Well developed, well nourished in NAD.
Neck: Supple, no JVD, HJR, carotids +2 B/L, no bruits bilaterally.
Heart: Non displaced PMI, irregular, no murmurs, No S3, S4, no rubs.
Lungs: Scattered rhonchi
Abdomen: Normal bowel sounds, soft, non-tender, non-distended.
Extremities: No clubbing, cyanosis or edema bilaterally.
Neuro: Awake but confused
Slowly improving although mental status appears to be compromised. Etiology of reduced ejection fraction is likely due to poor heart rate control of atrial fibrillation and possibly a component of hyperthyroidism. We could consider catheterization
although unclear if he will be compliant with antiplatelet therapy. Creatinine continues to improve to 1.5 with ongoing diuresis although weight has not changed much. Will restart Eliquis. Might consider LUIS ENRIQUE/cardioversion at some point but again
compliance with medications might be an issue. He would be at risk of stroke if he stopped anticoagulation after cardioversion. Unable to give amiodarone because of hyperthyroidism.
Original Note:
Today's Communication / Plan
-
Ongoing diuresis
HR control with Toprol XL
Eliquis starting tonight
Impression / Plan
-
PCP: None
Cardiology: Dr. Onofre, last seen in office 07/20/23
Impression:
Acute on chronic HFrEF
CM, likely nonischemic and tachycardia mediated, EF was 25% by echo 07/04/23, but down to 10-15% by echo 12/26/23
Persistent atrial fibrillation with rapid ventricular response
initially diagnosed July 2023
Hyperthyroidism
Shock liver
NAM
Noncompliance
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
Tobacco dependance
Elevated Troponin
Office ECG July 2023 atrial fibrillation, nonspecific ST and T wave changes, possible lateral KS
Echo 07/04/2023: EF is 25%, dilated RV, RV hypokinesis, biatrial dilatation, mild to moderate MR, mild TR, pulmonary artery systolic pressure 45 mmHg
Echo 12/26/23: EF 10-15%, global hypokinesis, enlarged RV size with reduced RV systolic function, mod MR, severe eccentric TR with PHTN and PAP 47 mmHg
Plan:
-Patient with a h/o newly diagnosed, rapid Afib during admission 07/03/23 until 07/15/23. Also with a new left common femoral artery occlusion that was treated with LLE thrombectomy that admission. Patient eventually started on Eliquis OAC and
amiodarone for HR control then seen in office 07/20/23 and found to still be in Afib. Patient was supposed to be seen in follow up on 09/05/23, but cancelled the day of the appointment and never rescheduled. Patient then admitted with acute HF 12/25/23
and again was in Afib with RVR.
-Patient is noncompliant with follow up, but reportedly was taking meds 'from time to time' prior to admission. Amiodarone is no longer listed on his home med list, but not clear who might have stopped it or why. Patient was taking methimazole with
a h/o hyperthyroidism prior to admission.
-HR control with Toprol XL 50 mg BID. HRs generally less than 110.
-Outpatient dose of Coreg has been held since admission.
-Eliquis 5 mg BID restarted 12/27/23. Not clear that patient was taking Eliquis as prescribed as an outpatient
-Not a candidate for LUIS ENRIQUE/CV given noncompliance and ongoing hyperthyroidism.
-EF down to 10-15% by echo 12/26/23 with global hypokinesis.
-GDMT includes Toprol XL 50 mg BID.
-Outpatient dose of lisinopril 2.5 mg daily is on hold due to hypotension.
-Weight is only down 2 lbs with Lasix 40 mg IV BID. Patient was ordered Lasix 40 mg daily prior to admission, but not taking on a regular basis.
-Cre has improved with diuresis
-Troponin 0.101 on admission and trended down thereafter. No chest pain and global hypokinesis on echo. Will manage as a nonischemic myocardial injury Troponin elevation for now.
HPI: Unfortunate 58-year-old man who was admitted in July with cardioembolic occlusion of the left common femoral artery related to atrial fibrillation and presumed tachycardia mediated cardiomyopathy with an EF of 25%.� He had
hyperthyroidism.� He was seen once in our office, was to begin amiodarone, but thereafter lost to follow-up.� He states he takes his medications 'from time to time' over the last week, he has felt progressively unwell and his brother urged him to
come to the emergency department.� He is short of breath, fatigued, initially appeared in a low output state in the ER, was started on diltiazem and now feels better.� He says he does not drink much alcohol.� He says he quit smoking 2 months ago.�
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
Subjective
Date of Service: December 27, 2023
No chest pain
Objective
Labs:
12/27/23 04:37
12/27/23 04:37
Labs
Hgb 14.1 g/dL (13.0-18.0) 12/27/23 04:37
Hct 43.1 % (39.0-52.0) 12/27/23 04:37
Plt Count 164 10^3/uL (130-400) 12/27/23 04:37
PT 29.2 Sec (11.4-14.6) H 12/27/23 04:36
INR 2.77 D 12/27/23 04:36
APTT 33.3 Sec (23.4-35.0) 12/25/23 16:01
Sodium 135 mmol/L (135-145) 12/27/23 04:37
Potassium 4.1 mmol/L (3.5-5.1) 12/27/23 04:37
BUN 75 mg/dl (9-20) H 12/27/23 04:37
Creatinine 1.5 mg/dL (0.7-1.3) H 12/27/23 04:37
Glucose 124 mg/dl (70-99) H 12/27/23 04:37
Troponins
12/25/23 12/25/23 12/26/23
13:57 19:41 02:23
Troponin I 0.101 H* 0.090 H* 0.099 H*
12/26/23
07:47
Troponin I 0.078 H*
Vital Signs and I&O:
Vital Signs
Temp Pulse Resp BP Pulse Ox
97.4 F 84 33 119/92 95
12/27/23 12:11 12/27/23 11:00 12/27/23 11:00 12/27/23 11:00 12/27/23 11:00
Vital Signs
Temp Pulse Resp BP Pulse Ox
97.4 F 84 33 119/92 95
12/27/23 12:11 12/27/23 11:00 12/27/23 11:00 12/27/23 11:00 12/27/23 11:00
Intake & Output
12/25/23 12/26/23 12/27/23 12/28/23
06:59 06:59 06:59 06:59
Intake Total 425 / 425 1130 / 1130 50 / 50
Output Total 600 / 850 2705 / 2705 1010 / 1010
Balance -175 / -425 -1575 / -1575 -960 / -960
Physical Exam
Physical Exam
General: NAD.
HEENT: EOMI.
Lungs: Scattered rhonchi
Abdomen: +BS
Extremities: No edema bilaterally.
Neuro: Grossly nonfocal
[2023-12-27 16:11] LABS: Ammonia 12 umol/L (9-30); Lactic Acid 2.2 mmol/L (0.7-2.0)
--- NOTE | 2023-12-27 19:14 | PTCARENOTE ---
Patient received into room 3349 from ICU 3371 approx 1815. Patient sitting in chair with chair alarm, starting to eat dinner. Pt given call marshall for tv but unable to use himself to change channels. Pt using urinal himself while in the chair. Vital
signs stable.
[2023-12-27] MEDS: ELIQUIS 5 MG PO (20:20)
--- NOTE | 2023-12-27 20:36 | PTCARENOTE ---
Received pt at change of shift. Pt OOB to chair. Hygiene care provided. x1 assist back to the bed. Pt appears lethargic but oriented and easily arousable. Able to take all oral medications. Controlled AFib on the monitor with occasional PVCs.
Pulse ox 98% while awake on RA but does dip into the high 80s while sleeping. 2L NC while sleeping. Pt resting comfortably in bed with call marshall in reach.
[2023-12-28] VITALS (13 sets, daily range): BP systolic 89–137; BP diastolic 56–99; PULSE 83–94; BMI 36.5
[2023-12-28] MEDS: UNASYN IV ×4 (03:21→20:42)
[2023-12-28 04:25] LABS: % Basophils 0.2 % (0-2); % Eosinophils 2.3 % (0-6); % Immature Granulocytes 0.5 % (0-0.5); % Monocytes 11.3 % (1.7-9.3); % Neutrophils 74.7 % (42.2-75.2); Absolute Eosinophils 0.2 10^3/uL (0-0.7); Absolute Immature Granulocytes 0.1 10^3/uL (0-0.05); Absolute Lymphocytes 1.1 10^3/uL (1.2-3.4); Absolute Monocytes 1.1 10^3/uL (0.1-0.6); Absolute Neutrophils 7.3 10^3/uL (1.4-6.5); Hematocrit 46.6 % (39.0-52.0); Mean Corp Hgb Conc. 32.2 g/dL (33.0-37.0); Mean Corpuscular Hgb 31.8 pg (27.0-31.0); Mean Corpuscular Volume 98.7 fL (80.0-94.0); Mean Platelet Volume 10.8 fL (7.4-10.4); Nucleated Red Blood Cells % 1.2 % (-); Platelet Count 157 10^3/uL (130-400); Red Blood Cell Count 4.72 10^6/uL (4.70-6.10); Red Cell Dist. Width 14.1 % (11.5-14.5); White Blood Cell Count 9.8 10^3/uL (4.8-10.8)
[2023-12-28 04:36] LABS: INR 2.05
[2023-12-28 04:39] LABS: Ammonia < 9 umol/L (9-30)
[2023-12-28 05:25] LABS: ALT (SGPT) 557 U/L (0-50); AST (SGOT) 171 U/L (17-59); Albumin 2.8 g/dl (3.5-5.0); Alkaline Phosphatase 128 U/L (38-126); Blood Urea Nitrogen 55 mg/dl (9-20); Calcium 8.4 mg/dl (8.4-10.2); Carbon Dioxide 35 mmol/L (22-30); Chloride 99 mmol/L (98-107); Estimated Creatinine Clearance 97 ml/min; Glucose 133 mg/dl (70-99); Magnesium 2.8 mg/dl (1.6-2.3); Potassium 3.7 mmol/L (3.5-5.1); Sodium 141 mmol/L (135-145); Total Bilirubin 4.7 mg/dl (0.2-1.3); Total Protein 5.6 g/dl (6.3-8.2); eGFR > 60.00
[2023-12-28] MEDS: TAPAZOLE 10 MG PO ×2 (08:30→20:42)
[2023-12-28] MEDS: LASIX 40 MG IV ×2 (08:30→17:11)
[2023-12-28] MEDS: TOPROL XL 50 MG PO ×2 (08:31→20:42)
[2023-12-28] MEDS: ELIQUIS 5 MG PO ×2 (08:31→20:42)
--- NOTE | 2023-12-28 08:52 | W.PN.NEPH.PH ---
Today's Communication / Plan
-
Sign off
Assessment/Plan
-
Assessment:
NAM (bl Cr 1)
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
Persistent atrial fibrillation with rapid ventricular response, first diagnosed July 2023
Hyperthyroidism
Shock liver
Noncompliance
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
Tobacco dependance
Plan:
- NAM most likely 2/2 to cardiorenal and low flow state
-Creatinine down to baseline 1.1
- continue lasix as Cr and LFTs improving with diuresis, grossly nonoliguric with improving weight
- likely some component of congestive hepatopathy
- HAGMA from lactic acidosis --> lactate downtrending with diuresis. likely from low output state. would attempt diuresis again today and continue
-We will sign off
-
-
Date of Service: December 28, 2023
CC / HPI / ROS
-
Chief Complaint:
NAM
History of Present Illness:
Afib
NAM (bl Cr 1), creatinine down to 1.1
Hemodynamically stable
Review of Systems:
feeling improved today
cough
Weight is down
Grossly nonoliguric
Labs
-
Labs:
WBC 9.8 10^3/uL (4.8-10.8) 12/28/23 04:07
RBC 4.72 10^6/uL (4.70-6.10) 12/28/23 04:07
Hgb 15.0 g/dL (13.0-18.0) 12/28/23 04:07
Hct 46.6 % (39.0-52.0) 12/28/23 04:07
Plt Count 157 10^3/uL (130-400) 12/28/23 04:07
Sodium 141 mmol/L (135-145) 12/28/23 04:07
Potassium 3.7 mmol/L (3.5-5.1) 12/28/23 04:07
Chloride 99 mmol/L (98-107) 12/28/23 04:07
Carbon Dioxide 35 mmol/L (22-30) H 12/28/23 04:07
BUN 55 mg/dl (9-20) H 12/28/23 04:07
Creatinine 1.1 mg/dL (0.7-1.3) 12/28/23 04:07
eGFR > 60.00 12/28/23 04:07
Glucose 133 mg/dl (70-99) H 12/28/23 04:07
Calcium 8.4 mg/dl (8.4-10.2) 12/28/23 04:07
Lfo-Q-Idpcleynrxf Pept 32511 pg/ml 12/25/23 13:57
Albumin 2.8 g/dl (3.5-5.0) L 12/28/23 04:07
Physical Exam
-
Vital Signs:
Vital Signs
Temp Pulse Resp BP Pulse Ox
97.6 F 87 11 108/66 94
12/28/23 08:13 12/28/23 08:35 12/28/23 08:35 12/28/23 08:35 12/28/23 08:35
Cardiovascular:: Irregular rate and rhythm
Respiratory:: Bilateral: Coarse
Lung Excursion:: Normal
Abdomen:: Nontender and Soft
Bowel Sounds:: Normal
Extremity Edema:: +1: Bilateral:
Wilkerson Catheter: Yes
--- NOTE | 2023-12-28 10:33 | W.PN.GI.CBS2 ---
Addendum entered and electronically signed by Jamal Munoz MD 12/29/23 18:21:
Delayed entry, pt was seen and examined on 12/28, I saw and examined the patient.
The PA's note was reviewed and I agree with the note.
Comment:
LFT continues to improve, presumed shock liver, GI s/o, call with questions.
Original Note:
Today's Communication / Plan
-
etiology of LFT elevation related to shock liver, hepatic congestion vs other less likely med- Tapazole with some report of acute liver injury but no diarrhea
LFT's and INR improving cont to trend
for HIDA today with abnormal CT but remains pain free
now with new diarrhea-- check stool studies ? abx related vs other
avoid hepatotoxic medications monitor closely with tapazole
hepatitis panel neg other liver serology pending
remains on abx per ID
Assessment / Plan
-
Pt is a 58yo with hx CHF, tachycardia with cardiomyopathy and hypothyroidism, afib, fem artery occlusion with thrombectomy in June 2023 and medical non compliance. He was lost in follow up and now presents with weakness with shortness of breath
with concern for fluid overload. On admission noted with leukocytosis, hyponatremia, elevated troponin elevated lactate, NAM and marked elevated LFT's with bili 5, AST 1708, ALT 1248, alk phos 115. After admission with further rise in K to 6.3.
12/25 US abd with doppler- HM, fatty infiltration of liver, limited doppler, pancreas not well seen. abnormal gallbladder with thickening sludge in gallbladder no stones. possible chronic cholecystitis, small amount free fluid. Tylenol level <10.
-elevated LFT's likely shock liver/hepatic congestion
-marked elevated INR on admission-- improving
-US with some abnormal gallbladder with thickening
-diarrhea after admission
-acute on chronic CHF mediated cardiomyopathy
-afib with RVR on admission
-strep species on blood cx
-NAM
-elevated lactate/leukocytosis on admission
-elevated troponin
-hyponatremia
other medical problems:
-cardioembolic occlusion LLE thrombectomy 06/2023
-hypothyroidism
-tobacco abuse
-medical non compliance
PLAN:
etiology of LFT elevation related to shock liver, hepatic congestion vs other less likely med- Tapazole with some report of acute liver injury but no diarrhea
LFT's and INR improving cont to trend
for HIDA today with abnormal CT but remains pain free
now with new diarrhea-- check stool studies ? abx related vs other
avoid hepatotoxic medications monitor closely with tapazole
hepatitis panel neg other liver serology pending
remains on abx per ID
Subjective
Subjective
Date of Service: December 28, 2023
12/27 brown stool but per nursing now with loose stools still overnight, NPO for HIDA scan
Objective
Data Reviewed
Laboratory Data:
Laboratory Results
12/28/23 04:07
12/28/23 04:07
Laboratory Results
PT 23.0 Sec (11.4-14.6) H 12/28/23 04:07
INR 2.05 12/28/23 04:07
APTT 33.3 Sec (23.4-35.0) 12/25/23 16:01
Magnesium 2.8 mg/dl (1.6-2.3) H 12/28/23 04:07
Total Bilirubin 4.7 mg/dl (0.2-1.3) H 12/28/23 04:07
AST 171 U/L (17-59) H 12/28/23 04:07
ALT 557 U/L (0-50) H* 12/28/23 04:07
Alkaline Phosphatase 128 U/L (38-126) H 12/28/23 04:07
Amylase 40 U/L (30-110) 12/27/23 04:37
Lipase 186 U/L (23-300) 12/27/23 04:37
Vital Signs and I&O:
Vital Signs
Temp Pulse Resp BP Pulse Ox
97.6 F 87 11 108/66 94
12/28/23 08:13 12/28/23 08:35 12/28/23 08:35 12/28/23 08:35 12/28/23 08:35
I&O
12/27/23 12/28/23 12/29/23
06:59 06:59 06:59
Intake Total 1130 / 1130 300 / 300
Output Total 2705 / 2705 2034 / 2034
Balance -1575 / -1575 -1735 / -1735
Physical Exam
Physical Exam
HEENT: Anicteric and Moist mucous membranes
Cardiology: Normal Sinus Rhythm
Pulmonary: Clear
GI: Soft, Non Distended and Non Tender
Neuro: Non Focal
--- NOTE | 2023-12-28 11:13 | W.PN.HOSP.TC ---
Today's Communication/Plan
-
Case management to check pricing for Jardiance and Entresto they are covered
Hold off on starting Entresto today because of patient's low blood pressure and recovering renal function and the need for diuresis
Continue diuresis
Follow creatinine and weights
Assessment / Plan
Assessment / Plan
Awake and Alert
CVS: S1-S2 irregular,
Chest: CTA B/L
Abdomen: Soft, NT / Bowel sounds present
Extremities: edema-better
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
Head CT-no acute changes , sinusitis
CT of the chest abdomen and pelvis-small bilateral pleural effusions groundglass opacities.Moderate on the right mild on the left, minimal ascites, new moderate diffuse bladder wall thickening
# Shortness of breath-Acute hypoxic resp insufficiency
Lasix 40 mg IV twice daily
Acute on chronic heart failure with reduced ejection fraction
Acute right heart failure
I do not think patient has had a heart catheterization-type of cardiomyopathy unclear
Cardiology is hesitant to do heart catheterization due to fear that the patient may not be compliant with antiplatelets
Echo 12/26/2023-severely reduced LV with severely reduced LV systolic function. Global hypokinesis with regional variation. Abnormal septal motion due to underlying bundle branch block. Ejection fraction 10 to 15%. Diastolic function
indeterminate due to A-fib. Enlarged RV size and reduced RV systolic function. Moderately dilated LA. Moderate MR. Severe eccentric TR with pulmonary hypertension. Pulm artery pressure 47 mmHg.
Weight was 130.3 kg on admission-121.9 kg today
# Elevated lactic acid-Lactic acidosis
Likely secondary to liver dysfunction and CHF with fluid overload
Elevated procal
Blood cultures with gram-positive cocci in chains -1 set-unclear if this is true versus contaminant
Urinalysis and culture-negative
Unclear if the CT scan finding is pneumonia versus CHF-likely CHF
On Unasyn now
No vegetations on echo
Repeat blood cultures negative
# Elevated LFTs
Looks like shock liver however no hypotension noted
Shock liver could have been secondary to hepatic congestion from really low ejection fraction
Ultrasound noted with abnormal gallbladder however no evidence of cholecystitis
Doppler without any obstruction
Tylenol level less than 10
Hepatitis panel negative
LFTs trending down
Urine drug screen negative
GI evaluation-appreciated
# Atrial fibrillation with rapid ventricular rate
Changed Coreg to metoprolol 50 twice daily
Heart rate under control
Cardizem drip has been off
Continue Eliquis
Does not look like his current medications list has amiodarone-patient is not sure when he took it last
May not be a good candidate for amiodarone given hyperthyroidism
Consider LUIS ENRIQUE cardioversion however compliance with anticoagulation is a big issue
# Coagulopathy likely secondary to liver disease-getting better
# Elevated [id number] type
# Hyperthyroidism
Low TSH noted.� T4 11
Continue methimazole
Methimazole 20 mg twice daily for 2 days per discussion with endocrine-Dr. Kuhn
Then Go back to 10 twice daily after that
# Acute kidney injury
Likely secondary to cardiorenal reasons
Follow on Lasix
Metabolic acidosis better with sodium bicarb-stop sodium bicarb
Hold lisinopril and potassium
Urinalysis noted with hyaline casts
Ultrasound of the kidneys with no hydronephrosis
# Hyponatremia-looks hypervolemic
Resolving with Lasix
# History of cardioembolic ischemia to left lower extremity status post thrombectomy left common femoral vein June 2023
# Obesity
#Hypoalbuminemia
# Ex-smoker
# DVT prophylaxis-restart Eliquis
# Full code
Brother updated yesterday in detail-implications of patient not compliant with medicines discussed in detail including
Have been educating patient every day regarding the importance of taking medicines as prescribed and the ramifications of noncompliance.
Case management to check pricing for Jardiance and Entresto they are covered
Hold off on starting Entresto today because of patient's low blood pressure and recovering renal function and the need for diuresis
Anticipated Discharge: > 48 hours
Subjective/Interval History
-
Date of Service: December 28, 2023
Objective Data
-
Labs:
Laboratory Results
12/28/23
04:07
WBC 9.8
Hgb 15.0
Hct 46.6
Plt Count 157
PT 23.0 H
INR 2.05
Sodium 141
Potassium 3.7
Chloride 99
Carbon Dioxide 35 H
BUN 55 H
Creatinine 1.1
Glucose 133 H
Calcium 8.4
Total Bilirubin 4.7 H
AST 171 H
ALT 557 H*
Alkaline Phosphatase 128 H
Vital Signs:
Vital Signs
Temp Pulse Resp BP Pulse Ox
97.6 F 70 17 99/75 83
12/28/23 08:13 12/28/23 10:00 12/28/23 10:00 12/28/23 10:00 12/28/23 10:00
I&O
12/27/23 12/28/23 12/29/23
06:59 06:59 06:59
Intake Total 1130 / 1130 300 / 300
Output Total 2705 / 2705 2034
Balance -1575 / -1575 -1735 / -1735
--- NOTE | 2023-12-28 11:20 | W.PN.CARDCBS ---
Today's Communication / Plan
-
Agree with further IV diuresis
Metoprolol for rate control of AFib
Add back SGLT2 - doubt his BP will tolerate Entreso or spironolactone at this time
Impression / Plan
-
PCP: None
Cardiology: Dr. Onofre, last seen in office 07/20/23
Impression:
Acute on chronic HFrEF (EF 10%)
CM, likely nonischemic and tachycardia mediated, EF was 25% by echo 07/04/23, but down to 10-15% by echo 12/26/23
Persistent atrial fibrillation with rapid ventricular response
initially diagnosed July 2023
Hyperthyroidism
Lactic acidosis
Shock liver
NAM
Noncompliance
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
Tobacco dependance
Elevated Troponin
Echo 07/04/2023: EF is 25%, dilated RV, RV hypokinesis, biatrial dilatation, mild to moderate MR, mild TR, pulmonary artery systolic pressure 45 mmHg
Echo 12/26/23: EF 10-15%, global hypokinesis, enlarged RV size with reduced RV systolic function, mod MR, severe eccentric TR with PHTN and PAP 47 mmHg
Plan:
-Presenting in decompensated HF in setting of rapid AFib, patient reportedly non-complaint with meds and follow up
-Agree with further IV lasix to improve volume status
-EF down to 10-15% by echo 12/26/23 with global hypokinesis
-Add back SGLT2
-BP is unlikely to tolerate afterload reduction at this time with ARNI/ALO/ARB or addition of spironolactone
-AFib likely precipitated/exacerbated by hyperthyroidism
-Cont Toprol XL 50 mg BID for HR goal < 110 bpm
-Eliquis 5 mg BID restarted 12/27/23 for cardioembolic ppx
-Not a candidate for LUIS ENRIQUE/CV given noncompliance and ongoing hyperthyroidism
-Troponin 0.101 on admission and trended down thereafter. No chest pain and global hypokinesis on echo. Will manage as a nonischemic myocardial injury Troponin elevation d/t HF and rapid AFib.
HPI: Unfortunate 58-year-old man who was admitted in July with cardioembolic occlusion of the left common femoral artery related to atrial fibrillation and presumed tachycardia mediated cardiomyopathy with an EF of 25%.� He had
hyperthyroidism.� He was seen once in our office, was to begin amiodarone, but thereafter lost to follow-up.� He states he takes his medications 'from time to time' over the last week, he has felt progressively unwell and his brother urged him to
come to the emergency department.� He is short of breath, fatigued, initially appeared in a low output state in the ER, was started on diltiazem and now feels better.� He says he does not drink much alcohol.� He says he quit smoking 2 months ago.�
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
Progress Note - Director Sanitation [employer]
Subjective
Date of Service: December 28, 2023
NAOE. Tells me breathing is comfortable, does report some orthopnea. No CP. Feels LE edema is significantly improved.
Objective
Labs:
12/28/23 04:07
12/28/23 04:07
Labs
Hgb 15.0 g/dL (13.0-18.0) 12/28/23 04:07
Hct 46.6 % (39.0-52.0) 12/28/23 04:07
Plt Count 157 10^3/uL (130-400) 12/28/23 04:07
PT 23.0 Sec (11.4-14.6) H 12/28/23 04:07
INR 2.05 12/28/23 04:07
APTT 33.3 Sec (23.4-35.0) 12/25/23 16:01
Sodium 141 mmol/L (135-145) 12/28/23 04:07
Potassium 3.7 mmol/L (3.5-5.1) 12/28/23 04:07
BUN 55 mg/dl (9-20) H 12/28/23 04:07
Creatinine 1.1 mg/dL (0.7-1.3) 12/28/23 04:07
Glucose 133 mg/dl (70-99) H 12/28/23 04:07
Troponins
12/25/23 12/25/23 12/26/23
13:57 19:41 02:23
Troponin I 0.101 H* 0.090 H* 0.099 H*
12/26/23
07:47
Troponin I 0.078 H*
Vital Signs and I&O:
Vital Signs
Temp Pulse Resp BP Pulse Ox
97.6 F 70 17 99/75 83
12/28/23 08:13 12/28/23 10:00 12/28/23 10:00 12/28/23 10:00 12/28/23 10:00
Vital Signs
Temp Pulse Resp BP Pulse Ox
97.6 F 70 17 99/75 83
12/28/23 08:13 12/28/23 10:00 12/28/23 10:00 12/28/23 10:00 12/28/23 10:00
Intake & Output
12/26/23 12/27/23 12/28/23 12/29/23
06:59 06:59 06:59 06:59
Intake Total 425 / 425 1130 / 1130 300 / 300
Output Total 600 / 850 2705 / 2705 2034
Balance -175 / -425 -1575 / -1575 -1735 / -173
Physical Exam
Physical Exam
Gen: NAD, AA
HEENT: NC/AT, sclera anicteric
Neck: No JVD
CV: irregularly irregular, NL s1/s2
Lungs: CTAB
Abd: S/ND
Ext: 1+ LE edema b/l
Skin: Warm, dry
Neuro: Non-focal
[2023-12-28] MEDS: JARDIANCE 10 MG PO (14:05)
[2023-12-28] MEDS: KLOR-CON 20 MEQ PO (14:05)
[2023-12-28] MEDS: FLORASTOR 250 MG PO ×2 (14:07→20:42)
--- NOTE | 2023-12-28 15:15 | CM ---
Addendum entered by Lo Burger RN 12/28/23 16:35:
corrected email to brother Jag [email or web address]
Original Note:
Patient with Dx Acute hypoxic resp insufficiency, Lactic acidosis, Elevated LFTs, A fib, NAM. Hida Scan today. Receiving IV Unasyn, IV Lasix. PT & OT recommends skilled rehab v home PT.
SNF referrals reviewed; accepting facilities are [facility], [facility].
Spoke with patient and discussed short term SNF for rehab and for assistance taking his meds (medication compliance). Patient says he would prefer to go home but will consider going to SNF, and will discuss this with his brother. He provides
permission for CM to contact his brother to discuss d/c plans. He will consider [facility] and agrees to additional SNF referrals in the [place] area.
Spoke with Jag Gifford, patient's brother; Jag strongly prefers that the patient go to SNF for rehab, saying that the patient will not help himself at home, and he was not always taking his meds at home. Jag says that the patient has no source of
income and needs to be on disability. He has a wrapper caser who got him set up with the SNAP food stamp program. The patient does not have a PCP. Advised Jag that the first step would be for the patient to quickly set up appt with a PCP, and PCP
may be able to discuss disability and initiate that paperwork. Informed Jag that CM would be unable to make VN referral for home care nurse for medication management, PT & OT until patient has a PCP. He would agree to the patient going to [facility]
or [facility]. Jag agrees to receive copy of [facility] PCP list to his email ---> sent to [email or web address]: [email or web address].
Additional SNF referral placed for [facility].
Plan follow up with patient/brother about SNF.
--- NOTE | 2023-12-28 16:23 | W.PN.ID1 ---
Date of Service
Date of Service: December 28, 2023
Today's Communication
Continue abx.
Assessment / Plan
Leukocytosis
- improving
Streptococcal bacteremia
- ?GI source
Hyponatremia
NAM
- improved
Lactic acidosis
Transaminitis
-Shock liver versus and/or passive congestion
- numbers trending down.
Elevated procalcitonin
- Difficult to interpret in the context of NAM
Positive blood culture with Strep spp.
- not clear if real or contaminate.
Hypothyroidism
A-fib
CHF
Recommendations:
Continue Unasyn.
Repeat blood cultures obtained; following for clearance.
Monitor white count and temperature curve.
����������������������������������������������������������
Chief Complaint
-: Leukocytosis and Bacteremia
Subjective / Review of Systems
Review of Systems: No Fever and No Chills
Vital Signs / Physical Exam
Vital Signs
Vital Signs
Temp Pulse Resp BP Pulse Ox
97.9 F 70 17 99/75 83
12/28/23 12:30 12/28/23 10:00 12/28/23 10:00 12/28/23 10:00 12/28/23 10:00
Physical Exam
Constitutional: No Acute Distress, Comfortable and Chronically Ill
Cardiovascular: S1/S2; Negative S3/S4
Pulmonary: Clear; Negative Wheezes, Rales or Rhonchi
Gastrointestinal: Soft, Non Tender and Non Distended
Neurological: Awake and Alert
Psychological: Calm
Objective Data
Lab Data
Lab Results
12/28/23 04:07
12/28/23 04:07
PT 23.0 Sec (11.4-14.6) H 12/28/23 04:07
INR 2.05 12/28/23 04:07
APTT 33.3 Sec (23.4-35.0) 12/25/23 16:01
Estimated Creat Clear 97 ml/min 12/28/23 04:07
Lactic Acid 2.2 mmol/L (0.7-2.0) H 12/27/23 15:54
Total Bilirubin 4.7 mg/dl (0.2-1.3) H 12/28/23 04:07
GGT 41 U/L (15-73) 12/27/23 04:37
AST 171 U/L (17-59) H 12/28/23 04:07
ALT 557 U/L (0-50) H* 12/28/23 04:07
Alkaline Phosphatase 128 U/L (38-126) H 12/28/23 04:07
Amylase 40 U/L (30-110) 12/27/23 04:37
Most recent labs reviewed.
Micro Results:
12/27/23 10:39 Blood Culture - Preliminary
Blood/Venous No Growth in 24 hours- Final report to follow
12/27/23 10:52 Blood Culture - Preliminary
Blood/Venous No Growth in 24 hours- Final report to follow
12/25/23 17:57 Blood Culture - Preliminary
Blood/Venous Streptococcus species
Gram Stain - Preliminary
12/25/23 16:51 Blood Culture - Preliminary
Blood/Venous No Growth in 48 hours- Final report to follow
12/25/23 14:40 Influenza Types A & B (SHERLYN) - Final
Nasal Swab Negative for Influenza A & B, NAAT
Negative results must be combined with clinical observations
and patient history.
Nucleic Acid Amplification test (NAAT)performed on the
[employer] platform.
Imaging:
12/26/2023 CT chest/abdomen/pelvis: No abnormal pleural or parenchymal pulmonary masses. No significant parenchymal airspace disease. No pleural effusion. No abnormal mediastinal masses. No hilar lymphadenopathy. Mild groundglass opacification
in the right lower lung and left lower lung [place].
--- NOTE | 2023-12-28 18:37 | PTCARENOTE ---
Incontinent of stool this am- showered- placed in enhanced precautions. Awaiting more stool to send for studies. Ambulatory, showered in bathroom- but does c/o lightheadness with activity. BP 89-90s/ 60s Returned to 110s-130s when back in bed.
Neuro checks d/cd today as well- D/w Dr. Corral. He is AAO/ pleasant and quiet- not making it known when he is incontinent. IV antibx as ordered. D/w dietary probiotics and MD started oral meds.
--- NOTE | 2023-12-28 22:41 | PTCARENOTE ---
Received pt at change of shift. Pt grossly incontinent. Applied CC#25 as pt doesn't appear to always wake when needing to urinate. Waiting on stool sample. 3L NC applied to pt for desatting to low 80s while sleeping. Pt easily arousable.
Resting comfortably in bed with call marshall in reach.
[2023-12-29] VITALS (13 sets, daily range): BP systolic 85–140; BP diastolic 57–106; PULSE 90; O2SAT 95; BMI 35.6
[2023-12-29] MEDS: UNASYN IV ×2 (01:55→08:59)
[2023-12-29 04:01] LABS: Hemoglobin 14.7 g/dL (13.0-18.0); Mean Corpuscular Hgb 31.2 pg (27.0-31.0); Mean Corpuscular Volume 97.7 fL (80.0-94.0); Mean Platelet Volume 10.6 fL (7.4-10.4); Platelet Count 158 10^3/uL (130-400); Red Blood Cell Count 4.71 10^6/uL (4.70-6.10); Red Cell Dist. Width 14.6 % (11.5-14.5); White Blood Cell Count 9.2 10^3/uL (4.8-10.8)
[2023-12-29 04:17] LABS: INR 2.13; PT 23.7 Sec (11.4-14.6)
[2023-12-29 04:20] LABS: ALT (SGPT) 428 U/L (0-50); AST (SGOT) 127 U/L (17-59); Albumin 2.8 g/dl (3.5-5.0); Alkaline Phosphatase 196 U/L (38-126); Direct Bilirubin 2.3 mg/dl (0.0-0.4); Magnesium 2.6 mg/dl (1.6-2.3); Total Bilirubin 3.9 mg/dl (0.2-1.3); Total Protein 5.6 g/dl (6.3-8.2)
[2023-12-29] MEDS: ELIQUIS 5 MG PO ×2 (08:57→20:52)
[2023-12-29] MEDS: JARDIANCE 10 MG PO (08:58)
[2023-12-29] MEDS: KLOR-CON 20 MEQ PO (08:58)
[2023-12-29] MEDS: FLORASTOR 250 MG PO ×2 (08:58→20:53)
[2023-12-29] MEDS: TAPAZOLE 10 MG PO ×2 (08:58→20:55)
[2023-12-29] MEDS: LASIX 40 MG IV ×2 (08:58→16:47)
[2023-12-29] MEDS: TOPROL XL 50 MG PO (08:58)
[2023-12-29 09:16] LABS: Blood Urea Nitrogen 35 mg/dl (9-20); Calcium 8.3 mg/dl (8.4-10.2); Carbon Dioxide 37 mmol/L (22-30); Chloride 102 mmol/L (98-107); Estimated Creatinine Clearance 88 ml/min; Glucose 116 mg/dl (70-99); Potassium 3.7 mmol/L (3.5-5.1); Sodium 141 mmol/L (135-145); eGFR > 60.00
[2023-12-29 10:01] LABS: F-Actin Antibody IgG 10 Units (0-19)
--- NOTE | 2023-12-29 10:26 | W.PN.CARDCBS ---
Today's Communication / Plan
-
Continue diuresis
Add Entresto
Follow labs
Impression / Plan
-
PCP: None
Cardiology: Dr. Onofre, last seen in office 07/20/23
Impression:
Acute on chronic HFrEF (EF 10%)
CM, likely nonischemic and tachycardia mediated, EF was 25% by echo 07/04/23, but down to 10-15% by echo 12/26/23
Persistent atrial fibrillation with rapid ventricular response
initially diagnosed July 2023
Hyperthyroidism
Lactic acidosis
Shock liver
NAM
Noncompliance
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
Tobacco dependance
Elevated Troponin
Echo 07/04/2023: EF is 25%, dilated RV, RV hypokinesis, biatrial dilatation, mild to moderate MR, mild TR, pulmonary artery systolic pressure 45 mmHg
Echo 12/26/23: EF 10-15%, global hypokinesis, enlarged RV size with reduced RV systolic function, mod MR, severe eccentric TR with PHTN and PAP 47 mmHg
Plan:
-Presenting in decompensated HF in setting of rapid AFib, patient reportedly non-complaint with meds and follow up
-Still mildly volume overloaded on exam. Agree with further IV lasix to improve volume status. Given addition of guideline directed medical therapy for heart failure May be ready to switch to oral diuretics tomorrow. Pending labs and exam.
-EF down to 10-15% by echo 12/26/23 with global hypokinesis. Discussed with patient importance of guideline directed medical therapy.
-SGLT2 has been resumed
-Continue Toprol-XL. (This was switched from carvedilol given better rate control with atrial fibrillation)
-Will try Entresto 24/26 mg twice daily. Follow creatinine and blood pressure.
-If stable and remains compliant as an outpatient could consider spironolactone but given we will need to follow renal function and potassium closely will hold for now
-Could eventually consider cardiac catheterization as an outpatient once patient demonstrates compliance. Discussed at length with the patient.
-AFib likely precipitated/exacerbated by hyperthyroidism
-Cont Toprol XL 50 mg BID for HR goal < 110 bpm
-Eliquis 5 mg BID restarted 12/27/23 for cardioembolic ppx
-Not a candidate for LUIS ENRIQUE/CV given noncompliance and ongoing hyperthyroidism
-Treatment of hyperthyroidism per primary service
-Troponin 0.101 on admission and trended down thereafter. No chest pain and global hypokinesis on echo. Will manage as a nonischemic myocardial injury Troponin elevation d/t HF and rapid AFib.
-Abnormal LFTs being evaluated by GI
Discussed plan with primary service.
HPI: Unfortunate 58-year-old man who was admitted in July with cardioembolic occlusion of the left common femoral artery related to atrial fibrillation and presumed tachycardia mediated cardiomyopathy with an EF of 25%.� He had
hyperthyroidism.� He was seen once in our office, was to begin amiodarone, but thereafter lost to follow-up.� He states he takes his medications 'from time to time' over the last week, he has felt progressively unwell and his brother urged him to
come to the emergency department.� He is short of breath, fatigued, initially appeared in a low output state in the ER, was started on diltiazem and now feels better.� He says he does not drink much alcohol.� He says he quit smoking 2 months ago.�
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
Progress Note - Metals Analyst
Subjective
Date of Service: December 29, 2023
Denies chest pain, palpitations and dizziness.
Objective
Labs:
12/29/23 03:45
12/29/23 03:45
Labs
Hgb 14.7 g/dL (13.0-18.0) 12/29/23 03:45
Hct 46.0 % (39.0-52.0) 12/29/23 03:45
Plt Count 158 10^3/uL (130-400) 12/29/23 03:45
PT 23.7 Sec (11.4-14.6) H 12/29/23 03:45
INR 2.13 12/29/23 03:45
APTT 33.3 Sec (23.4-35.0) 12/25/23 16:01
Sodium 141 mmol/L (135-145) 12/29/23 03:45
Potassium 3.7 mmol/L (3.5-5.1) 12/29/23 03:45
BUN 35 mg/dl (9-20) H 12/29/23 03:45
Creatinine 1.2 mg/dL (0.7-1.3) 12/29/23 03:45
Glucose 116 mg/dl (70-99) H 12/29/23 03:45
Vital Signs and I&O:
Vital Signs
Temp Pulse Resp BP Pulse Ox
97.2 F 97 20 131/106 99
12/29/23 07:28 12/29/23 08:00 12/29/23 08:00 12/29/23 08:00 12/29/23 08:00
Vital Signs
Temp Pulse Resp BP Pulse Ox
97.2 F 97 20 131/106 99
12/29/23 07:28 12/29/23 08:00 12/29/23 08:00 12/29/23 08:00 12/29/23 08:00
Intake & Output
12/27/23 12/28/23 12/29/23 12/30/23
06:59 06:59 06:59 06:59
Intake Total 1130 / 1130 300 / 300 2160 / 2160
Output Total 2705 / 2705 2035 / 2035 4325 / 4325
Balance -1575 / -1575 -1735 / -1735 -2165 / -2165
Physical Exam
Physical Exam
General: Well developed, well nourished in NAD.
Neck: Supple, JVD 9cm with positive HJR
Heart: Distant heart sounds irregular
Lungs: Decreased breath sounds at the bases with few crackles
Extremities: No clubbing, cyanosis and trace edema bilaterally.
Neuro: Grossly nonfocal, awake, alert and oriented x3.
--- NOTE | 2023-12-29 10:30 | PTCARENOTE ---
Found pt with large amt liquid stool in attends again this am- did not notify staff. Condom cath was intact still. Cleansed and replaced brief.
He is AAO, slow with odd affect. He can not answer any questions regarding his meds/ taking care of himself at home. He states his brother comes monthly or twice a month. AF on tele. Monitor BP closely with med administration.
--- NOTE | 2023-12-29 10:32 | W.PN.HOSP.TC ---
Today's Communication/Plan
-
Jardiance started yesterday, Entresto started today
Watch overnight
Discharge planning for rehab tomorrow
Assessment / Plan
Assessment / Plan
Awake and Alert
CVS: S1-S2 irregular,
Chest: CTA B/L
Abdomen: Soft, NT / Bowel sounds present
Extremities: edema-better
GARDE MANAGER: able to move extremities with out difficulty.
Head CT-no acute changes , sinusitis
CT of the chest abdomen and pelvis-small bilateral pleural effusions groundglass opacities.Moderate on the right mild on the left, minimal ascites, new moderate diffuse bladder wall thickening
# Shortness of breath-Acute hypoxic resp insufficiency
Lasix 40 mg IV twice daily
Jardiance and Entresto started
Patient already on beta-renee
Acute on chronic heart failure with reduced ejection fraction
Acute right heart failure
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
Cardiology is hesitant to do heart catheterization due to fear that the patient may not be compliant with antiplatelets
Echo 12/26/2023-severely reduced LV with severely reduced LV systolic function. Global hypokinesis with regional variation. Abnormal septal motion due to underlying bundle branch block. Ejection fraction 10 to 15%. Diastolic function
indeterminate due to A-fib. Enlarged RV size and reduced RV systolic function. Moderately dilated LA. Moderate MR. Severe eccentric TR with pulmonary hypertension. Pulm artery pressure 47 mmHg.
Weight was 130.3 kg on admission-118.8 kg today
# Elevated lactic acid-Lactic acidosis
Likely secondary to liver dysfunction and CHF with fluid overload
Elevated procal
Blood cultures with gram-positive cocci in chains -1 set-unclear if this is true versus contaminant
Urinalysis and culture-negative
Unclear if the CT scan finding is pneumonia versus CHF-likely CHF
On Unasyn now
No vegetations on echo
Repeat blood cultures negative
# Elevated LFTs
Looks like shock liver however no hypotension noted
Shock liver could have been secondary to hepatic congestion from really low ejection fraction
Ultrasound noted with abnormal gallbladder however no evidence of cholecystitis
Doppler without any obstruction
Tylenol level less than 10/Hepatitis panel negative/Urine drug screen negative
LFTs trending down
# Atrial fibrillation with rapid ventricular rate
Changed Coreg to metoprolol 50 twice colin-Cardizem drip has been offy
Heart rate under control
Continue Eliquis
Does not look like his current medications list has amiodarone-patient is not sure when he took it last
May not be a good candidate for amiodarone given hyperthyroidism
No LUIS ENRIQUE cardioversion however compliance with anticoagulation is a big issue- therefore not entertained.
# Coagulopathy likely secondary to liver disease-getting better
# Elevated [id number]-PW type
# Hyperthyroidism
Low TSH noted.� T4 11
Continue methimazole
Methimazole 20 mg twice daily for 2 days per discussion with endocrine-Dr. Kuhn
Then Go back to 10 twice daily after that
# Acute kidney injury
Likely secondary to cardiorenal reasons
Follow on Lasix
Metabolic acidosis better with sodium bicarb-stop sodium bicarb
Hold lisinopril and potassium
Urinalysis noted with hyaline casts
Ultrasound of the kidneys with no hydronephrosis
# Hyponatremia-looks hypervolemic
Resolving with Lasix
# History of cardioembolic ischemia to left lower extremity status post thrombectomy left common femoral vein June 2023
# Obesity
# Diarrhea-likely secondary to antibiotics.
No more diarrhea to send any stool studies.
#Hypoalbuminemia
# Ex-smoker
# DVT prophylaxis- Eliquis
# Full code
D/W RN
Discussed with cardiology at bedside
Discussed with the patient's brother and updated.
Anticipated Discharge: Within 24 hours
Subjective/Interval History
-
Date of Service: December 29, 2023
Objective Data
-
Labs:
Laboratory Results
12/29/23
03:45
WBC 9.2
Hgb 14.7
Hct 46.0
Plt Count 158
PT 23.7 H
INR 2.13
Sodium 141
Potassium 3.7
Chloride 102
Carbon Dioxide 37 H
BUN 35 H
Creatinine 1.2
Glucose 116 H
Calcium 8.3 L
Total Bilirubin 3.9 H
AST 127 H
ALT 428 H
Alkaline Phosphatase 196 H
Vital Signs:
Vital Signs
Temp Pulse Resp BP Pulse Ox
97.2 F 97 20 131/106 99
12/29/23 07:28 12/29/23 08:00 12/29/23 08:00 12/29/23 08:00 12/29/23 08:00
I&O
12/28/23 12/29/23 12/30/23
06:59 06:59 06:59
Intake Total 300 / 300 2160 / 2160
Output Total 5 / 5 4325 / 4325
Balance -1735 / -1735 -2165 / -2165
--- NOTE | 2023-12-29 10:37 | W.PN.ID1 ---
Date of Service
Date of Service: December 29, 2023
Today's Communication
Transition to amoxicillin.
Assessment / Plan
Leukocytosis
- improving
Streptococcal bacteremia
- ?GI source
Hyponatremia
NAM
- improved
Lactic acidosis
Transaminitis
-Shock liver versus and/or passive congestion
- numbers trending down.
Elevated procalcitonin
- Difficult to interpret in the context of NAM
Positive blood culture with Strep spp.
- not clear if real or contaminate.
Hypothyroidism
A-fib
CHF
Recommendations:
On Unasyn (d#5 abx). WBC normalized.
Repeat blood cultures negative thus far.
Will transition to oral amoxicillin for an additional 7 days
Monitor white count and temperature curve.
����������������������������������������������������������
Chief Complaint
-: Leukocytosis and Bacteremia
Subjective / Review of Systems
Review of Systems: No Fever and No Chills
Vital Signs / Physical Exam
Vital Signs
Vital Signs
Temp Pulse Resp BP Pulse Ox
97.2 F 97 20 131/106 99
12/29/23 07:28 12/29/23 08:00 12/29/23 08:00 12/29/23 08:00 12/29/23 08:00
Physical Exam
Constitutional: No Acute Distress, Comfortable and Non-toxic
Eyes: Sclera Anicteric
Cardiovascular: S1/S2; Negative S3/S4
Pulmonary: Non Labored
Gastrointestinal: Soft, Non Tender and Non Distended
Neurological: Awake and Alert
Psychological: Calm
Objective Data
Lab Data
Lab Results
12/29/23 03:45
12/29/23 03:45
PT 23.7 Sec (11.4-14.6) H 12/29/23 03:45
INR 2.13 12/29/23 03:45
APTT 33.3 Sec (23.4-35.0) 12/25/23 16:01
Estimated Creat Clear 88 ml/min 12/29/23 03:45
Lactic Acid 2.2 mmol/L (0.7-2.0) H 12/27/23 15:54
Total Bilirubin 3.9 mg/dl (0.2-1.3) H 12/29/23 03:45
GGT 41 U/L (15-73) 12/27/23 04:37
AST 127 U/L (17-59) H 12/29/23 03:45
ALT 428 U/L (0-50) H 12/29/23 03:45
Alkaline Phosphatase 196 U/L (38-126) H 12/29/23 03:45
Amylase 40 U/L (30-110) 12/27/23 04:37
Most recent labs reviewed.
Micro Results:
12/25/23 16:51 Blood Culture - Preliminary
Blood/Venous No Growth in 72 hours- Final report to follow
12/27/23 10:39 Blood Culture - Preliminary
Blood/Venous No Growth in 24 hours- Final report to follow
12/27/23 10:52 Blood Culture - Preliminary
Blood/Venous No Growth in 24 hours- Final report to follow
12/25/23 17:57 Blood Culture - Preliminary
Blood/Venous Streptococcus species
Gram Stain - Preliminary
12/25/23 14:40 Influenza Types A & B (SHERLYN) - Final
Nasal Swab Negative for Influenza A & B, NAAT
Negative results must be combined with clinical observations
and patient history.
Nucleic Acid Amplification test (NAAT)performed on the
[employer] platform.
Imaging:
12/26/2023 CT chest/abdomen/pelvis: No abnormal pleural or parenchymal pulmonary masses. No significant parenchymal airspace disease. No pleural effusion. No abnormal mediastinal masses. No hilar lymphadenopathy. Mild groundglass opacification
in the right lower lung and left lower lung [place].
[2023-12-29] MEDS: ENTRESTO 24 MG/26 MG 1 TAB PO ×2 (11:36→20:54)
--- NOTE | 2023-12-29 12:50 | CM ---
Addendum entered by Lo Burger RN 12/29/23 15:49:
Message from Mateo [facility]; they are able to accept once insurance approves. Ph for report [phone], fax [phone].
Spoke with [employer] (ph [phone], fax [phone]); initiated SNF auth for 12/30. Reference # [id number]. Clinicals sent via [employer].
Plan [facility] tomorrow once insurance approves.
Original Note:
Patient with Dx Acute hypoxic resp insufficiency, Lactic acidosis, Elevated LFTs, A fib, NAM. Receiving IV Lasix. PT & OT recommends skilled rehab v home PT.
Spoke with nurse Orozco; not on O2 currently. Patient incontinent stool and stool specimens were sent.
SNF referrals reviewed; accepted by [facility] and [facility]. [facility] does not have an available male bed.
Spoke with Mateo Kurt[facility]; they have accepted and she will check and see if bed will be available tomorrow and provide NPIs for auth.
Met with patient and spoke with his brother Jag; both agree to [facility] for short term rehab, and understand that insurance will need to approve. They are aware MD indicated he may be ready for d/c tomorrow.
Plan insurance auth for [facility] once facility confirms availability.
--- NOTE | 2023-12-29 15:25 | W.PN.UPDATE ---
Update Note
Progress Note Update
TT communication with nursing indicating patient with NSVT. Tele reviewed and patient had NSVT that was self-terminating. Potassium was 3.7 this morning and magnesium 2.6. Will give KCl 40 meq PO x1 now and recheck BMP in AM. Cannot start amiodarone
due to shock liver and elevated LFTs. Instead increased Toprol XL to 75 mg BID including an extra dose of 25 mg NOW.
[2023-12-29] MEDS: KCL 40 MEQ PO (16:47)
[2023-12-29] MEDS: AMOXIL 500 MG PO (16:47)
[2023-12-29] MEDS: TOPROL XL 25 MG PO (16:47)
[2023-12-29 18:58] LABS: LKM-1 Ab (IgG) 1.4 U (0.0-24.9); Soluble Liver Antigen Ab 2.8 U (0.0-24.9)
--- NOTE | 2023-12-29 19:15 | PTCARENOTE ---
Tele alarmed VT today 1414- approx 20 sec in length- BP 98/72- notified Dr. Estela Wagner and Dr. Corral. Orders noted and given extra dose Toprol. Started on Entresto today. Order obtained to place back on IMU status.
--- NOTE | 2023-12-29 19:24 | PTCARENOTE ---
OOB this pm worked with PT- No further VT noted this shift. Med education sheets given to pt for entresto, toprol and lasix.
[2023-12-29] MEDS: DESENEX/MITRAZOL/ZEASORB 1 APPLIC TOPICAL (20:51)
[2023-12-29] MEDS: TOPROL XL 75 MG PO (20:56)
--- NOTE | 2023-12-29 21:36 | PTCARENOTE ---
Assumed care of pt at shift change, pt was sleeping. when assessed and PM meds given, pt said he could take his pills with water. [place]oke pt and he took his pills and didn't swallow them but chewed them instead. so crushed his meds and gave in
applesauce. Pt is drowsy but arousable and is oriented X3 but is just very tired. Noted when sleeping on room air his O2 sat will drop to 85%. Placed on 2L NC and O2 sat improved to 97%. He does have periods of irregular breathing and apnea when
sleeping. Heart monitor is Atrial fibrillation. Will monitor.
[2023-12-30] VITALS (7 sets, daily range): BP systolic 94–127; BP diastolic 58–105; BMI 35.4
[2023-12-30] MEDS: AMOXIL 500 MG PO ×3 (01:14→16:20)
--- NOTE | 2023-12-30 03:03 | PTCARENOTE ---
Pt has continued to have periods of apnea while sleeping. He will remove his oxygen while sleeping and desat to 86%. With )2 his O2 sat has been 87% to 99% depending on if he is apneic. When placing oxygen back on him, he doesn't know how it came
off. PO antibiotic has given without difficulty with applesauce once awake. Heart monitor is atrial fib with ventricular response at 86.
[2023-12-30 05:04] LABS: Blood Urea Nitrogen 31 mg/dl (9-20); Calcium 8.5 mg/dl (8.4-10.2); Carbon Dioxide 33 mmol/L (22-30); Chloride 101 mmol/L (98-107); Estimated Creatinine Clearance 106 ml/min; Glucose 118 mg/dl (70-99); Potassium 4.3 mmol/L (3.5-5.1); Sodium 139 mmol/L (135-145); eGFR > 60.00
[2023-12-30] MEDS: JARDIANCE 10 MG PO (08:21)
[2023-12-30] MEDS: ENTRESTO 24 MG/26 MG 1 TAB PO (08:21)
[2023-12-30] MEDS: TOPROL XL 75 MG PO (08:22)
[2023-12-30] MEDS: TAPAZOLE 10 MG PO (08:22)
[2023-12-30] MEDS: ELIQUIS 5 MG PO (08:25)
[2023-12-30] MEDS: LASIX 40 MG IV ×2 (08:26→16:17)
[2023-12-30] MEDS: FLORASTOR 250 MG PO (08:26)
[2023-12-30] MEDS: KLOR-CON 20 MEQ PO (08:27)
[2023-12-30] MEDS: DESENEX/MITRAZOL/ZEASORB 1 APPLIC TOPICAL (08:32)
--- NOTE | 2023-12-30 10:12 | W.PN.ID1 ---
Date of Service
Date of Service: December 30, 2023
Today's Communication
Continue antibiotics for an additional 6 days
Assessment / Plan
Leukocytosis
- improving
Streptococcal bacteremia
- ?GI source
Hyponatremia
NAM
- improved
Lactic acidosis
Transaminitis
-Shock liver versus and/or passive congestion
- numbers trending down.
Elevated procalcitonin
- Difficult to interpret in the context of NAM
Positive blood culture with Strep spp.
- not clear if real or contaminate.
Hypothyroidism
A-fib
CHF
Recommendations:
Continue amoxicillin for an additional 6 days
Monitor white count and temperature curve.
����������������������������������������������������������
Chief Complaint
-: Leukocytosis and Bacteremia
Subjective / Review of Systems
Review of Systems: No Fever, No Chills and No Abdominal Pain
Vital Signs / Physical Exam
Vital Signs
Vital Signs
Temp Pulse Resp BP Pulse Ox
97.8 F 89 20 104/58 99
12/30/23 07:54 12/30/23 08:26 12/30/23 06:00 12/30/23 08:26 12/30/23 02:04
Physical Exam
Constitutional: No Acute Distress, Comfortable and Non-toxic
Eyes: No Conjunctival Hemorrhage and Sclera Anicteric
Cardiovascular: S1/S2; Negative S3/S4
Neurological: Awake and Alert
Psychological: Calm
Objective Data
Lab Data
Lab Results
12/29/23 03:45
12/30/23 04:21
PT 23.7 Sec (11.4-14.6) H 12/29/23 03:45
INR 2.13 12/29/23 03:45
APTT 33.3 Sec (23.4-35.0) 12/25/23 16:01
Estimated Creat Clear 106 ml/min 12/30/23 04:21
Lactic Acid 2.2 mmol/L (0.7-2.0) H 12/27/23 15:54
Total Bilirubin 3.9 mg/dl (0.2-1.3) H 12/29/23 03:45
GGT 41 U/L (15-73) 12/27/23 04:37
AST 127 U/L (17-59) H 12/29/23 03:45
ALT 428 U/L (0-50) H 12/29/23 03:45
Alkaline Phosphatase 196 U/L (38-126) H 12/29/23 03:45
Amylase 40 U/L (30-110) 12/27/23 04:37
Most recent labs reviewed.
Micro Results:
12/25/23 16:51 Blood Culture - Preliminary
Blood/Venous No Growth in 4 days- Final report to follow
12/29/23 11:35 Cryptosporidium/Giardia - Final
Feces/Stool Negative for Cryptosporidium and/or Giardia Lamblia
antigens.
C. difficile GDH Antigen & Toxins - Final
Negative for toxigenic C.difficile
12/29/23 11:35 Salmonella/Shigella Culture - Pending
Feces/Stool Campylobacter Culture - Pending
Shiga Toxin Test - Pending
Stool Leukocytes - Final
12/27/23 10:39 Blood Culture - Preliminary
Blood/Venous No Growth in 48 hours- Final report to follow
12/27/23 10:52 Blood Culture - Preliminary
Blood/Venous No Growth in 48 hours- Final report to follow
12/25/23 17:57 Blood Culture - Preliminary
Blood/Venous Streptococcus species
Gram Stain - Preliminary
12/25/23 14:40 Influenza Types A & B (SHERLYN) - Final
Nasal Swab Negative for Influenza A & B, NAAT
Negative results must be combined with clinical observations
and patient history.
Nucleic Acid Amplification test (NAAT)performed on the
[employer] NOW platform.
Imaging:
12/26/2023 CT chest/abdomen/pelvis: No abnormal pleural or parenchymal pulmonary masses. No significant parenchymal airspace disease. No pleural effusion. No abnormal mediastinal masses. No hilar lymphadenopathy. Mild groundglass opacification
in the right lower lung and left lower lung [place].
Care Review
Plan reviewed with: Physician (Hospitalist)
--- NOTE | 2023-12-30 10:35 | W.PN.HOSP.TC ---
Addendum entered and electronically signed by Marcin Corral MD 12/30/23 16:31:
Dictation- [id number]
Original Note:
Today's Communication/Plan
-
Discharge to rehab today if OK with Cards
Assessment / Plan
Assessment / Plan
Awake and Alert
CVS: S1-S2 irregular,
Chest: CTA B/L
Abdomen: Soft, NT / Bowel sounds present
Extremities: edema-better
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
Head CT-no acute changes , sinusitis
CT of the chest abdomen and pelvis-small bilateral pleural effusions groundglass opacities.Moderate on the right mild on the left, minimal ascites, new moderate diffuse bladder wall thickening
# Shortness of breath-Acute hypoxic resp insufficiency
Lasix 40 mg IV twice daily-to be changed to p.o.
Jardiance and Entresto started
Patient already on fmij-ngycybs-tyzjjrtwl to 75 twice daily
Acute on chronic heart failure with reduced ejection fraction
Acute right heart failure
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
Cardiology is hesitant to do heart catheterization due to fear that the patient may not be compliant with antiplatelets
Echo 12/26/2023-severely reduced LV with severely reduced LV systolic function. Global hypokinesis with regional variation. Abnormal septal motion due to underlying bundle branch block. Ejection fraction 10 to 15%. Diastolic function
indeterminate due to A-fib. Enlarged RV size and reduced RV systolic function. Moderately dilated LA. Moderate MR. Severe eccentric TR with pulmonary hypertension. Pulm artery pressure 47 mmHg.
Weight was 130.3 kg on admission-118.4 kg today
#Episode of NSVT-increase Lopressor to 75 twice daily
# Elevated lactic acid-Lactic acidosis
Likely secondary to liver dysfunction and CHF with fluid overload
Elevated procal
Blood cultures with gram-positive cocci in chains -1 set-unclear if this is true versus contaminant
Urinalysis and culture-negative
Unclear if the CT scan finding is pneumonia versus CHF-likely CHF
On Unasyn now
No vegetations on echo
Repeat blood cultures negative
# Elevated LFTs
Looks like shock liver however no hypotension noted
Shock liver could have been secondary to hepatic congestion from really low ejection fraction
Ultrasound noted with abnormal gallbladder however no evidence of cholecystitis
Doppler without any obstruction
Tylenol level less than 10/Hepatitis panel negative/Urine drug screen negative
LFTs trending down
# Atrial fibrillation with rapid ventricular rate
Changed Coreg to metoprolol 50 twice colin-Cardizem drip has been offy
Heart rate under control
Continue Eliquis
Does not look like his current medications list has amiodarone-patient is not sure when he took it last
May not be a good candidate for amiodarone given hyperthyroidism
No LUIS ENRIQUE cardioversion however compliance with anticoagulation is a big issue- therefore not entertained.
# Coagulopathy likely secondary to liver disease-getting better
# Elevated [id number] type
# Hyperthyroidism
Low TSH noted.� T4 11
Continue methimazole
Methimazole 20 mg twice daily for 2 days per discussion with endocrine-Dr. Kuhn
Now back to 10 twice daily
# Acute kidney injury
Likely secondary to cardiorenal reasons
Follow on Lasix
Metabolic acidosis better with sodium bicarb
Urinalysis noted with hyaline casts
Ultrasound of the kidneys with no hydronephrosis
# Hyponatremia-looks hypervolemic
Resolving with Lasix
# History of cardioembolic ischemia to left lower extremity status post thrombectomy left common femoral vein June 2023
# Obesity
# Diarrhea-likely secondary to antibiotics.
#Hypoalbuminemia
# Ex-smoker
# DVT prophylaxis- Eliquis
# Full code
Discussed with cardiology
Discussed with the patient's brother and updated RE IMPORTANCE OF MEDS . Also discussed about pillbox being set up for the patient or blister packs
D/w CASE MANAGEMENT
Discharge today if okay with cardiology
Anticipated Discharge: Today
Subjective/Interval History
-
Date of Service: December 30, 2023
Objective Data
-
Labs:
Laboratory Results
12/30/23
04:21
Sodium 139
Potassium 4.3
Chloride 101
Carbon Dioxide 33 H
BUN 31 H
Creatinine 1.0
Glucose 118 H
Calcium 8.5
Vital Signs:
Vital Signs
Temp Pulse Resp BP Pulse Ox
97.8 F 89 20 104/58 99
12/30/23 07:54 12/30/23 08:26 12/30/23 06:00 12/30/23 08:26 12/30/23 02:04
I&O
12/29/23 12/30/23 12/31/23
06:59 06:59 06:59
Intake Total 2160 / 2160 1420 / 1420
Output Total 4325 / 4325 4875 / 4875
Balance -2165 / -2165 -3455 / -3455
[2023-12-30 12:44] LABS: ALT (SGPT) 267 U/L (0-50); AST (SGOT) 81 U/L (17-59); Albumin 2.7 g/dl (3.5-5.0); Alkaline Phosphatase 201 U/L (38-126); Direct Bilirubin 1.5 mg/dl (0.0-0.4); Total Bilirubin 2.8 mg/dl (0.2-1.3); Total Protein 5.4 g/dl (6.3-8.2)
--- NOTE | 2023-12-30 15:38 | W.PN.CARDCBS ---
Today's Communication / Plan
-
Okay for transfer to rehab
Continue Toprol, Entresto, Jardiance, and Lasix 40 P.o. twice daily
A-fib is rate controlled.. Continue Eliquis and Toprol
Impression / Plan
-
PCP: None
Cardiology: Dr. Onofre, last seen in office 07/20/23
Impression:
Acute on chronic HFrEF (EF 10%)
CM, likely nonischemic and tachycardia mediated, EF was 25% by echo 07/04/23, but down to 10-15% by echo 12/26/23
Persistent atrial fibrillation with rapid ventricular response
initially diagnosed July 2023
Hyperthyroidism
Lactic acidosis
Shock liver
NAM
Noncompliance
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
Tobacco dependance
Elevated Troponin
Echo 07/04/2023: EF is 25%, dilated RV, RV hypokinesis, biatrial dilatation, mild to moderate MR, mild TR, pulmonary artery systolic pressure 45 mmHg
Echo 12/26/23: EF 10-15%, global hypokinesis, enlarged RV size with reduced RV systolic function, mod MR, severe eccentric TR with PHTN and PAP 47 mmHg
Plan:
-Presenting in decompensated HF in setting of rapid AFib, patient reportedly non-complaint with meds and follow up
-He has diuresed relatively well. Will switch to Lasix 40 mg p.o. twice daily.
-EF down to 10-15% by echo 12/26/23 with global hypokinesis. Discussed with patient importance of guideline directed medical therapy.
-Continue Toprol and Entresto. Continue Jardiance
-If stable and remains compliant as an outpatient could consider spironolactone but given we will need to follow renal function and potassium closely will hold for now
-Could eventually consider cardiac catheterization as an outpatient once patient demonstrates compliance. Discussed at length with the patient.
-AFib likely precipitated/exacerbated by hyperthyroidism
-Eliquis 5 mg BID restarted 12/27/23 for cardioembolic ppx
-Not a candidate for LUIS ENRIQUE/CV given noncompliance and ongoing hyperthyroidism
-Treatment of hyperthyroidism per primary service
-Troponin 0.101 on admission and trended down thereafter. No chest pain and global hypokinesis on echo. Will manage as a nonischemic myocardial injury Troponin elevation d/t HF and rapid AFib.
-Okay for transfer to rehab.
HPI: Unfortunate 58-year-old man who was admitted in July with cardioembolic occlusion of the left common femoral artery related to atrial fibrillation and presumed tachycardia mediated cardiomyopathy with an EF of 25%.� He had
hyperthyroidism.� He was seen once in our office, was to begin amiodarone, but thereafter lost to follow-up.� He states he takes his medications 'from time to time' over the last week, he has felt progressively unwell and his brother urged him to
come to the emergency department.� He is short of breath, fatigued, initially appeared in a low output state in the ER, was started on diltiazem and now feels better.� He says he does not drink much alcohol.� He says he quit smoking 2 months ago.�
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
Progress Note - Ergonomic Specialist
Subjective
Date of Service: December 30, 2023
Breathing is overall improved. Denies chest pains
Objective
Labs:
12/29/23 03:45
12/30/23 04:21
Labs
Hgb 14.7 g/dL (13.0-18.0) 12/29/23 03:45
Hct 46.0 % (39.0-52.0) 12/29/23 03:45
Plt Count 158 10^3/uL (130-400) 12/29/23 03:45
PT 23.7 Sec (11.4-14.6) H 12/29/23 03:45
INR 2.13 12/29/23 03:45
APTT 33.3 Sec (23.4-35.0) 12/25/23 16:01
Sodium 139 mmol/L (135-145) 12/30/23 04:21
Potassium 4.3 mmol/L (3.5-5.1) 12/30/23 04:21
BUN 31 mg/dl (9-20) H 12/30/23 04:21
Creatinine 1.0 mg/dL (0.7-1.3) 12/30/23 04:21
Glucose 118 mg/dl (70-99) H 12/30/23 04:21
Vital Signs and I&O:
Vital Signs
Temp Pulse Resp BP Pulse Ox
97.6 F 96 24 94/61 95
12/30/23 11:30 12/30/23 11:46 12/30/23 11:46 12/30/23 11:46 12/30/23 13:15
Vital Signs
Temp Pulse Resp BP Pulse Ox
97.6 F 96 24 94/61 95
12/30/23 11:30 12/30/23 11:46 12/30/23 11:46 12/30/23 11:46 12/30/23 13:15
Intake & Output
12/28/23 12/29/23 12/30/23 12/31/23
06:59 06:59 06:59 06:59
Intake Total 300 / 300 2160 / 2160 1420 / 1420
Output Total 2034 / 2034 4325 / 4325 4875 / 4875 1500 / 1500
Balance -1735 / -1735 -2165 / -2165 -3455 / -3455 -1500 / -1500
Physical Exam
Physical Exam
GEN: No distress, awake, Ox3
HEENT: supple, anicteric, mmm
LUNGS: CTA, no wheezes/rales
CV: Irreg, S1/S2, 1/6 syst LSB, no gallop
ABD: soft, BS+, NT/ND
EXT: No edema
NEURO: Gross non-focal
SKIN: No rash
--- NOTE | 2023-12-30 16:03 | CM ---
patient stable for discharge today per attending and cardiology.i received auth from tevin at [facility] for 7 days starting today reference number [id number],i spoke with brother morgan who was fine with patient discharging to [facility].i
spoke with adm at facility and gave them the auth number.patient signed imm letter.
--- NOTE | 2023-12-30 16:26 | W.DS.TRANS ---
DC Summary - Director Search
-
Discharge Instructions:
Discharge Diagnosis/Procedures Streptococcal bacteremia, acute kidney injury,
lactic acidosis, acute hypoxic respiratory
insufficiency, acute on chronic heart failure
with reduced ejection fraction, NSVT, shock
liver with elevated LFTs, atrial fibrillation,
coagulopathy secondary to liver disease, non-MA
troponin elevation, hypothyroidism, obesity,
diarrhea, hypoalbuminemia, noncompliance with
medicines, fatty liver
Diet 2 Gram Sodium,Restrict fluids to 48 oz
Activity With assistance
Driving Restrictions As prior to admission
Blood Work cbc, bmp 2 days, follow LFTS till normal
Other Services PT,OT
Specialty Instructions Weigh Daily
Instructions:
Stand-Alone Forms:
Changes to Home Medications: Yes
Discharge Medications:
DC Medications w/original date entered in [employer]
potassium chloride 20 mEq tablet,extended release(part/cryst) 20 meq PO DAILY Electrolyte Repletion 12/26/23
Saccharomyces boulardii 250 mg capsule 250 mg PO BID loose stools #0 caps 12/30/23
amoxicillin 500 mg capsule 500 mg PO Q8 Infection #0 caps 12/30/23
apixaban 5 mg tablet (Eliquis) 5 mg PO BID Blood clot prevention/tx #60 tabs 12/30/23
empagliflozin 10 mg tablet (Jardiance) 10 mg PO DAILY Heart Failure #0 tabs 12/30/23
furosemide 40 mg tablet (Lasix) 40 mg PO BID Fluid Retention/Swelling #0 tabs 12/30/23
methimazole 10 mg tablet 10 mg PO BID Thyroid #60 tabs 12/30/23
metoprolol succinate 50 mg tablet,extended release 24 hr 75 mg PO BID Heart Failure #0 tabs 12/30/23
sacubitril 24 mg-valsartan 26 mg tablet (Entresto) 1 tab PO BID Heart Failure #0 tabs 12/30/23
Home Medication Changes
new
amoxicillin 500 mg capsule 500 mg PO Q8 Infection #0 caps 12/30/23
apixaban 5 mg tablet (Eliquis) 5 mg PO BID Blood clot prevention/tx #60 tabs 12/30/23
empagliflozin 10 mg tablet (Jardiance) 10 mg PO DAILY Heart Failure #0 tabs 12/30/23
furosemide 40 mg tablet (Lasix) 40 mg PO BID Fluid Retention/Swelling #0 tabs 12/30/23
metoprolol succinate 50 mg tablet,extended release 24 hr 75 mg PO BID Heart Failure #0 tabs 12/30/23
sacubitril 24 mg-valsartan 26 mg tablet (Entresto) 1 tab PO BID Heart Failure #0 tabs 12/30/23
Stopped
Lisinopril , coreg
Pending Results: Yes
Additional Pending Results:
stool Cx
== END 2023-12-30 17:04 | DRG 291 ==
LOC: IMU 16:57
PROVIDERS: Emergency Medicine; Internal Medicine Critical Care Medicine; Nurse Practitioner Adult Health; Nurse Practitioner Family; Physician Assistant Medical; Registered Nurse; ADMITTING PHYSICIAN Hospitalist; CONSULT PHYSICIAN Internal Medicine Cardiovascular Disease; CONSULT PHYSICIAN Internal Medicine Critical Care Medicine; CONSULT PHYSICIAN Internal Medicine Gastroenterology; CONSULT PHYSICIAN Internal Medicine Infectious Disease; CONSULT PHYSICIAN Student in an Organized Health Care Education/Training Program; EMERGENCY PHYSICIAN Emergency Medicine
DX: I11.0 Hypertensive heart disease with heart failure (principal); G92.8 Other toxic encephalopathy; I50.23 Acute on chronic systolic (congestive) heart failure; K72.00 Acute and subacute hepatic failure without coma; N17.9 Acute kidney failure, unspecified; I48.19 Other persistent atrial fibrillation; E87.20 Acidosis, unspecified; I47.20 Ventricular tachycardia, unspecified; D68.4 Acquired coagulation factor deficiency; E87.1 Hypo-osmolality and hyponatremia; R78.81 Bacteremia; E66.9 Obesity, unspecified; I5A Non-ischemic myocardial injury (non-traumatic); R09.02 Hypoxemia; E03.9 Hypothyroidism, unspecified; E88.09 Other disorders of plasma-protein metabolism, not elsewhere classified; I27.20 Pulmonary hypertension, unspecified; I08.1 Rheumatic disorders of both mitral and tricuspid valves; B95.5 Unspecified streptococcus as the cause of diseases classified elsewhere; Z68.35 Body mass index [BMI] 35.0-35.9, adult; Z91.148 Patient's other noncompliance with medication regimen for other reason
CPT/HCPCS: 70450; 71045; 71250; 74176; 76700; 78226; 78582; 80048; 80053; 80143; 80306; 81003; 81015; 82140; 82150; 82248; 82550; 82607; 82977; 83516; 83605; 83615; 83690; 83735; 83880; 83935; 84145; 84300; 84436; 84439; 84443; 84484; 85025; 85027; 85610; 85730; 86015; 86376; 86704; 86706; 86708; 86803; 87040; 87045; 87046; 87149; 87205; 87324; 87328; 87329; 87389; 87427; 87449; 87502; 87811; 89055; 93005; 93306; 93970; 93975; 96374; 97116; 97163; 97167; 97530; 99291; A9537; A9540; A9567; J1160; Q9957

== ENCOUNTER → 2024-02-13 07:06 | Outpatient (REF) | payer OTHER, SELFPAY ==
[2024-02-13 08:27] LABS: % Basophils 1.4 % (0-2); % Eosinophils 4.4 % (0-6); % Immature Granulocytes 0.3 % (0-0.5); % Lymphocytes 26.3 % (20.5-51.1); % Monocytes 10.2 % (1.7-9.3); % Neutrophils 57.4 % (42.2-75.2); Absolute Basophils 0.1 10^3/uL (0-0.2); Absolute Eosinophils 0.4 10^3/uL (0-0.7); Absolute Lymphocytes 2.4 10^3/uL (1.2-3.4); Absolute Monocytes 0.9 10^3/uL (0.1-0.6); Absolute Neutrophils 5.2 10^3/uL (1.4-6.5); Hematocrit 44.3 % (39.0-52.0); Hemoglobin 14.5 g/dL (13.0-18.0); Mean Corp Hgb Conc. 32.7 g/dL (33.0-37.0); Mean Corpuscular Hgb 30.3 pg (27.0-31.0); Mean Corpuscular Volume 92.5 fL (80.0-94.0); Mean Platelet Volume 9.3 fL (7.4-10.4); Nucleated Red Blood Cells % 0 % (-); Platelet Count 300 10^3/uL (130-400); Red Blood Cell Count 4.79 10^6/uL (4.70-6.10); Red Cell Dist. Width 14.6 % (11.5-14.5)
[2024-02-13 09:12] LABS: ALT (SGPT) 18 U/L (0-50); AST (SGOT) 22 U/L (17-59); Albumin 4.1 g/dl (3.5-5.0); Alkaline Phosphatase 137 U/L (38-126); Blood Urea Nitrogen 18 mg/dl (9-20); Calcium 9.4 mg/dl (8.4-10.2); Carbon Dioxide 25 mmol/L (22-30); Chloride 105 mmol/L (98-107); Glucose 113 mg/dl (70-99); Potassium 3.8 mmol/L (3.5-5.1); Sodium 137 mmol/L (135-145); Total Bilirubin 0.8 mg/dl (0.2-1.3); eGFR > 60.00
[2024-02-13 09:37] LABS: TSH Reflex To Free T4 0.04 uIU/ml (0.47-4.68)
[2024-02-13 10:03] LABS: Free T4 0.78 ng/dl (0.78-2.19)
[2024-02-13 10:17] LABS: PSA, Total - Screen 0.82 ng/ml (0.0-4.0)
== END ==
LOC: REG 07:06
PROVIDERS: ATTENDING PHYSICIAN Physician Assistant Medical; FAMILY PHYSICIAN Family Medicine
DX: Z76.89 Persons encountering health services in other specified circumstances (principal); I48.0 Paroxysmal atrial fibrillation; I50.812 Chronic right heart failure; I74.3 Embolism and thrombosis of arteries of the lower extremities; E05.90 Thyrotoxicosis, unspecified without thyrotoxic crisis or storm; Z79.01 Long term (current) use of anticoagulants; Z12.11 Encounter for screening for malignant neoplasm of colon; Z12.5 Encounter for screening for malignant neoplasm of prostate; R74.8 Abnormal levels of other serum enzymes
CPT/HCPCS: 36415; 80053; 84439; 84443; 85025; G0103

== ENCOUNTER → 2024-03-20 07:53 | Outpatient (REF) | payer OTHER, SELFPAY | LOC: REG 07:53 | PROVIDERS: ATTENDING PHYSICIAN Internal Medicine Cardiovascular Disease | DX: E05.90 Thyrotoxicosis, unspecified without thyrotoxic crisis or storm (principal) | CPT/HCPCS: 36415; 84443 ==

== ENCOUNTER → 2024-04-04 07:02 | Outpatient (REF) | payer OTHER, SELFPAY | LOC: HWRCS 07:02 | PROVIDERS: ATTENDING PHYSICIAN Internal Medicine Cardiovascular Disease; FAMILY PHYSICIAN Family Medicine | DX: I42.9 Cardiomyopathy, unspecified (principal) | CPT/HCPCS: 93306 ==

== ENCOUNTER 2024-04-11 07:05 | Day surgery (SDC) | payer OTHER, SELFPAY ==
[2024-04-11] MEDS: ELIQUIS 5 MG PO (07:54)
--- NOTE | 2024-04-11 09:06 | ITS.CL.CARDI ---
[facility] - Cardioversion
Cardioversion
Procedure Report:
Date of Procedure:
Procedure: Cardioversion
Indication: Symptomatic atrial fibrillation
Performing Physician: Gonzalo Onofre MD
Technique: The patient was brought to the holding area. Signed informed consent was obtained. A time out was called and performed. The patient was anesthetized by the anesthesia service. Anticoagulation status was reviewed and appropriate. R2 pads
were placed anteriorly and posteriorly. A 200 J synchronized biphasic shock failed, but a 360J synchronized biphasic shock restored normal sinus rhythm without significant bradycardia. There were no complications.
Conclusion: Uncomplicated cardioversion from atrial fibrillation to sinus rhythm.
Recommendation: Routine post cardioversion care. Continue technician terminal and repeater anticoagulation.
== END 2024-04-11 09:30 | disposition home or self-care (01) ==
LOC: CATH 07:05
PROVIDERS: ATTENDING PHYSICIAN Internal Medicine Cardiovascular Disease; FAMILY PHYSICIAN Family Medicine
DX: I48.0 Paroxysmal atrial fibrillation (principal); I42.9 Cardiomyopathy, unspecified; I50.22 Chronic systolic (congestive) heart failure; N17.9 Acute kidney failure, unspecified; Z87.891 Personal history of nicotine dependence; Z79.84 Long term (current) use of oral hypoglycemic drugs; Z79.01 Long term (current) use of anticoagulants
CPT/HCPCS: 92960; 93005

== ENCOUNTER 2024-05-22 06:17 | Day surgery (SDC) | payer OTHER, SELFPAY ==
[2024-05-22] VITALS (12 sets, daily range): BP systolic 102–143; BP diastolic 56–91; BMI 37.5
[2024-05-22] MEDS: LOW STRENGTH ASPIRIN 324 MG PO (07:04)
[2024-05-22 07:11] LABS: Hematocrit 44.4 % (39.0-52.0); Hemoglobin 15.2 g/dL (13.0-18.0); Mean Corp Hgb Conc. 34.2 g/dL (33.0-37.0); Mean Corpuscular Hgb 33.9 pg (27.0-31.0); Mean Corpuscular Volume 98.9 fL (80.0-94.0); Mean Platelet Volume 9.3 fL (7.4-10.4); Platelet Count 247 10^3/uL (130-400); Red Blood Cell Count 4.49 10^6/uL (4.70-6.10); Red Cell Dist. Width 12.5 % (11.5-14.5); White Blood Cell Count 7.2 10^3/uL (4.8-10.8)
--- NOTE | 2024-05-22 07:23 | ITS.CL.CATH ---
Floorworker Lasting - Catheterization
Cardiac Catheterization
Procedure Report:
LEFT AND RIGHT HEART CATHETERIZATION
Date of Procedure: May 22, 2024
Referring: JOSE Pickett; Gonzalo Onofre MD
PROCEDURES:
1. Left catheterization, coronary angiogram.
2. Right heart catheterization.
3. Ultrasound-guided access
INDICATION: Cardiomyopathy
ACCESS:
1. Right radial artery, 6 [place]raini sheath, under ultrasound guidance.
2. Right brachial vein, 6 [place]rain[place] sheath, under ultrasound guidance.
HEMODYNAMICS : (mmHg)
RA (m) : 6
RV (s/d,m) : 34/1, 8
PA (s/d, m) : 39/12, 25
PCWP (m) : 16
PA saturation: 63.5% on room air
AO saturation: 88% on room air
RA saturation: 61.9% on room air
Cardiac Output : 6.26 L/min
Cardiac Index : 2.61 L/min/m-2
Systemic vascular resistance: 945 dsc^(-5)
Pulmonary vascular resistance: 1.6 vance unit
Heart rate: 84 bpm
AO (s/d) : 109/61
LV (s/d) : 105/10
LVEDP : 14
CORONARY FINDINGS
DOMINANCE: Codominant
LEFT MAIN: The left main artery is a large-caliber, short vessel which gives rise to the left anterior descending artery and the left circumflex artery. There is minimal luminal irregularities.
LEFT ANTERIOR DESCENDING: The left anterior descending artery is a large-caliber vessel which gives rise to 2 major diagonal branches as it courses through the anterior interventricular groove and wraps around the apex. There is minimal luminal
irregularities.
CIRCUMFLEX: The left circumflex artery is a medium to large caliber, dominant vessel which gives rise to 1 major obtuse marginal branch (along with multiple small caliber OM's), 1 left posterolateral branch and a small left posterior descending
artery. There is mild diffuse atherosclerotic plaque
RIGHT CORONARY ARTERY: The right coronary artery is a large-caliber, co-dominant vessel which gives rise to a small right posterior descending artery and a small right posterolateral system. There is mild diffuse atherosclerotic plaque.
SEDATION: 61 minutes of procedural sedation was utilized. An independent biomedical equipment technician was present to assist with and help manage the patient's level of consciousness and physiologic status.
RADIATION SUMMARY: Fluoro Time (min): 5.6, Dose (mGy): 491.75 DAP (Gy.cm2) : 37.4
Closure Device:
1. Vascular band over right radial artery, 9 cc of air.
2. Manual pressure was held over the right brachial venous access site with successful hemostasis
CONCLUSIONS
1. No obstructive coronary artery disease.
2. Normal to mildly elevated right and left-sided filling pressures with normal cardiac output.
RECOMMENDATIONS
1. Continued optimization of goal-directed medical therapy for nonischemic cardiomyopathy.
2. Wean radial band per protocol.
3. Referral for outpatient cardiac rehab.
4. Aggressive management cardiovascular risk factors.
Copy to: JOSE Pickett; Gonzalo Onofre MD
Anay Shin MD, [facility], [facility]
[2024-05-22 07:31] LABS: ALT (SGPT) 11 U/L (0-50); AST (SGOT) 18 U/L (17-59); Albumin 4.1 g/dl (3.5-5.0); Alkaline Phosphatase 138 U/L (38-126); Blood Urea Nitrogen 13 mg/dl (9-20); Calcium 9.6 mg/dl (8.4-10.2); Carbon Dioxide 24 mmol/L (22-30); Chloride 107 mmol/L (98-107); Estimated Creatinine Clearance > 125 ml/min; Glucose 113 mg/dl (70-99); Sodium 139 mmol/L (135-145); Total Bilirubin 0.5 mg/dl (0.2-1.3); Total Protein 6.6 g/dl (6.3-8.2); eGFR > 60.00
[2024-05-22] MEDS: NSS 1000 IV (10:13)
--- NOTE | 2024-05-22 11:34 | PTCARENOTE ---
small hematoma noted before discharge. FREELANCE TRANSLATOR made aware and manual pressure held for 5 min. Patient also unable to urinate. FREELANCE TRANSLATOR also made aware. Patient fine to discharge.
== END 2024-05-22 11:35 | disposition home or self-care (01) ==
LOC: CATH 06:17
PROVIDERS: ATTENDING PHYSICIAN Internal Medicine Interventional Cardiology; FAMILY PHYSICIAN Family Medicine
DX: I25.10 Atherosclerotic heart disease of native coronary artery without angina pectoris (principal); I48.0 Paroxysmal atrial fibrillation; I42.9 Cardiomyopathy, unspecified; I50.23 Acute on chronic systolic (congestive) heart failure; E05.90 Thyrotoxicosis, unspecified without thyrotoxic crisis or storm; Z87.891 Personal history of nicotine dependence; Z79.84 Long term (current) use of oral hypoglycemic drugs; Z79.01 Long term (current) use of anticoagulants
CPT/HCPCS: 99152; 99153; C1894; 80053; 85027; 93460; Q9967

== ENCOUNTER 2024-10-29 21:41 | Inpatient (IN) | payer OTHER, SELFPAY ==
[2024-10-29] VITALS (15 sets, daily range): BP systolic 92–144; BP diastolic 57–113; BMI 40.9
--- NOTE | 2024-10-29 14:46 | ED.GENMED ---
ED Provider Triage
<Felicita Lewis HANDLE ASSEMBLER - Last Filed: 10/29/24 14:52>
-
Patient seen by provider in Triage?: Seen in Triage
Attestation: A medical screening examination has been initiated by a qualified medical provider. Based on the assessment performed at this time, it has been determined that an emergent medical condition may exist and the patient has been informed
that further medical evaluation and possible additional diagnostic testing may be needed.
HPI: 59-year-old male with history of CHF, LLE DVT, A-fib on Eliquis, presents for right leg swelling and pain, cysts had similar event with left lower extremity and had DVT, had embolectomy on that leg,
In triage heart rate anywhere from 80s to 160. Patient denies feeling palpitations. Denies chest pain or shortness of breath. Denies fever or chills
Pain is medial right thigh, knee and ankle. Pain started this a.m. after awakening at 5 a.m.
GENERAL: Alert , in no apparent distress
EYE: No visual abnormalities.
NECK: Trachea midline
ENT: No visible abnormalities.
LUNGS: No acute respiratory distress
NEUROLOGICAL: Alert and oriented
SKIN: Skin intact. No visible changes.
MUSCULOSKELETAL: Moving extremities normally
PSYCH: Normal and appropriate interaction.
This is a medical evaluation conducted in person to initiate diagnostic evaluation and provide initial therapeutics. Please see further documentation by the treating clinician.
History of Present Illness
<Felicita Lewis HANDLE ASSEMBLER - Last Filed: 10/29/24 14:52>
General
Chief Complaint: Swelling
Time Seen by Provider: 10/29/24 16:04
<Kari Hernandez PA-C - Last Filed: 10/29/24 21:58>
General
Source: patient
Exam Limitations: none
Nursing documentation reviewed up to this point in time: agreed with
History of Present Illness
History of Present Illness:
59 y/o M with h/o afib on eliquis, metoprolol, CHF on lasix
here with pain and swelling R leg this morning
pt says most pain is in the knee and he has pain with walking
the pain is better at rest but he feels like it is a little tingling
he denies cp, sob, ysncope, fever, chills, redness, injury
pt says he is unaware if he took his meds this morning, sometimes he misses meds
06/2023 he presented with acute ischemic L lower extremity secondary to thromboemblic disease and new onset afib
he had a thrombectomy
Past History
<Felicita Lewis HANDLE ASSEMBLER - Last Filed: 10/29/24 14:52>
Past History
ED Past Medical History: Arrthythmia (Atrial fibrillation on Eliquis) and CHF
ED Past Surgical History: Other (LLE critical limb ischemia needing revascularization surgery 06/2023)
Patient has exhibited threatening behavior?: No
PSI?: No
Social History
Tobacco: Former smoker
Alcohol: None
Personal: Single
Living: alone
Review of Systems
<Kari Hernandez PA-C - Last Filed: 10/29/24 21:58>
Review of Systems
Allergies reviewed?: Yes
All Other Systems: Not applicable
Phy Exam
<Kari Hernandez PA-C - Last Filed: 10/29/24 21:58>
Physical Exam
Physical Exam:
GENERAL: Alert , in no apparent distress
EYE: pupils equal and reactive
NECK: Supple
ENT: o/p clr, mmm.
CARDIAC: Irregularly irregular, tachycardic
LUNGS: mildly tachypneic, no respiratory distress, no crackles at his bases, moving good air
ABDOMEN: Soft, without focal tenderness, no r/g, no cvat, normal bowel sounds
NEUROLOGICAL: Alert and oriented, no focal neuro deficits
SKIN: Warm and dry, skin intact.
MUSCULOSKELETAL: Slightly swollen right knee down to his foot, slightly pale, cool to the touch foot and the toes, no palpable pulse, patient able to flex his knee 45 degrees, no significant effusion or erythema or warmth, trace pink skin laterally
lower extremity
PSYCH: Normal and appropriate interaction.
Scores
<Kari Hernandez PA-C - Last Filed: 10/29/24 21:58>
Heart Failure Risk
Heart Failure Risk Score: Not Applicable
Course
<Felicita Lewis NP - Last Filed: 10/29/24 14:52>
Orders/Labs/Results
Orders:
Orders
10/29/24 14:50
US Periph Venous LOWER Ext RT Urgent
Comment:
Reason For Exam: pain med R thigh, knee and ankle. Hx DVt, on Eliqu
10/29/24 14:56
Complete Blood Count/With Diff Urgent
Comprehensive Metabolic Panel Urgent
Free T4 Urgent
Comment: ADD ON
10/29/24 16:27
Electrocardiogram (*1) Urgent
Reason for Study: Atrial Fibrillation
EKG- Treatment ONCE
10/29/24 16:35
Metoprolol [Lopressor] 5 mg IV NOW STA
10/29/24 16:36
CR Chest Portable - 1 View Urgent
Comment:
Reason For Exam: afib with rvr
Reason Study Needs to be Portable: Patient Unstable
10/29/24 16:53
NT-proBNP Urgent
10/29/24 16:54
CT Abd Aorta Angio W/ Run Off Urgent
Comment:
Reason For Exam: pulseless R foot, swelling, pain, afib rvr
10/29/24 16:56
CT Chest Pe Study Urgent
Comment:
Reason For Exam: r leg swelling, afib rvr, noncompliant eliquis,
10/29/24 18:50
Heparin 4,000 units IV NOW STA
10/29/24 18:51
Fentanyl Citrate/Pf [Sublimaze] 250 mcg .ROUTE .STK-MED ONE
Lidocaine 2% Mpf [Xylocaine Mpf 2%] 100 mg .ROUTE .STK-MED ONE
Midazolam HCl [Versed] 2 mg .ROUTE .STK-MED ONE
Rocuronium Hull [Rocuronium] 100 mg .ROUTE .STK-MED ONE
10/29/24 18:53
PTT Urgent
Comment: Obtain baseline before beginning heparin infusion if not already collected
Nursing to Place Non Medication Order As Directed
Physician Order: PTT 6 hours after initial start of Heparin infusion
10/29/24 19:00
Heparin 13441 Units/250 ml 25,000 units in 250 ml IV PER PROTOCOL
Weight to be used for heparin protocol in kilograms (kg):: 136.8
Protocol:: Vascular Surgery
PTT Goal Range to be used:: PTT 73 to 111 seconds
Order type:: Initial
INITIAL Infusion Dose (UNITS/KG/hr) & then follow protocol:: 18 units/kg/hr
Infusion Dose in UNITS/hr & then follow protocol (UNITS/hr):: 2,000
INFUSION RATE in mL/hr & then follow protocol (mL/hr):: 20
PTT less than or equal to 64 seconds:: Notify Ordering Provider. obtain orders for rate increase &
possible bolus
PTT 64.1 to 72.9 seconds:: Increase rate by 100 units/hr (+ 1 mL/hr)
PTT 73 to 111 seconds:: Target Range. No change in rate.
PTT 111.1 to 130.9 seconds:: Decrease rate by 100 units/hr (- 1 mL/hr)
PTT 131 to 199.9 seconds:: HOLD for 1 hour. Then decrease rate by 200 units/hr (- 2 mL/hr)
PTT greater than or equal to 200 seconds:: STOP INFUSION. Notify Ordering provider to obtain further orders.
Lab follow-up:: Each change, PTT q6h until 2 consecutive are therapeutic. Then PTT
daily.
10/29/24 19:04
Heparin 10,000 units .ROUTE .STK-MED ONE
10/29/24 19:05
Lidocaine HCl/Pf [Xylocaine-Mpf 1% Vial] 50 mg .ROUTE .STK-MED ONE
10/29/24 19:07
EPINEPHrine PF [Adrenalin] 4 mg .ROUTE .STK-MED ONE
NORepinephrine 4 MG/250 ML [Levophed] 4 mg in 250 ml .ROUTE .STK-MED
10/29/24 19:08
Vasopressin [Pitressin] 20 units .ROUTE .STK-MED ONE
10/29/24 19:28
Ketamine 5 ml .ROUTE .STK-MED
10/29/24 19:30
Lactic Acid Urgent
10/29/24 19:46
Type+Screen Stat
10/29/24 19:54
CeFAZolin SODIUM [Ancef] 1,000 mg .ROUTE .STK-MED ONE
10/29/24 19:56
CeFAZolin SODIUM [Ancef] 1,000 mg .ROUTE .STK-MED ONE
10/29/24 19:57
CeFAZolin SODIUM [Ancef] 1,000 mg .ROUTE .STK-MED ONE
10/29/24 19:58
CeFAZolin SODIUM [Ancef] 1,000 mg .ROUTE .STK-MED ONE
CeFAZolin SODIUM [Ancef] 1,000 mg .ROUTE .STK-MED ONE
10/29/24 20:12
Metoprolol [Lopressor] 5 mg .ROUTE .STK-MED ONE
10/29/24 20:16
Diphenhydramine [Benadryl] 50 mg .ROUTE .STK-MED ONE
Famotidine [Pepcid] 20 mg .ROUTE .STK-MED ONE
10/29/24 20:24
Midazolam HCl [Versed] 5 mg .ROUTE .STK-MED ONE
10/29/24 20:27
Rocuronium Hull [Rocuronium] 100 mg .ROUTE .STK-MED ONE
10/29/24 20:52
Thrombin Topical (Bovine) [Thrombin-Jmi 09750 Unit Vial] 20,000 units .ROUTE .STK-MED ONE
10/29/24 20:56
Phenylephrine [Zaki-Synephrine] 10 mg .ROUTE .STK-MED ONE
10/29/24 20:59
VASCULAR OR PATHOLOGY Routine
Pre-Operative Diagnosis: ACUTE LIMB ISCHEMIA
Operative Procedure: RIGHT LOWER EXTREMITY THROMBOEMBOLECTOMY
Surgeon: ROBBI
Circulating Nurse: YARELIS
Specimen Type: R LE THROMBUS
10/29/24 21:09
Dexmedetomidine HCl [Precedex] 200 mcg .ROUTE .STK-MED ONE
Dexmedetomidine HCl [Precedex] 400 mcg .ROUTE .STK-MED ONE
10/29/24 21:14
Vasopressin [Pitressin] 40 units .ROUTE .STK-MED ONE
10/29/24 21:26
Admit/Transfer Patient As Directed
Co-Sign Provider:
Level of Care: Inpatient admission
Assign to:: ICU
Physician / Group: Wilfredo
Diagnosis: RLE Vascular Occlusion, A-Fib with RVR
Reason for Hospitalization: RLE Vascular Occlusion, A-Fib with RVR
Expected length of stay greater than two midnights?: Yes
ELOS- Estimated Length of Stay in days: 3
I certify the patient meets the requirements for IP care: Yes
PRN Pain Medication Management As Directed
May give lesser potent ordered pain med per pt: Yes
preference::
Protocol:: Medication orders for pain may be administered in a
manner that supports deferring to patient preference
when the pt is:
- Requesting an ordered lesser potent pain medication.
Least to most potent pain medications are defined
as: acetaminophen < NSAID < tramadol < opioids
(morphine, oxycodone, hydromorphone).
- Requesting a lesser dose of the same medication IF
ORDERED.
- Requesting a less intrusive route of administration
if both routes are prescribed by the provider (PO <
IV).
10/29/24 21:43
Diltiazem 125 mg/125 ml Nss [Cardizem] 125 mg in 125 ml IV PER PROTOCOL
Initial dose in mg/hr, then titrate:: 5
Titrate to keep:: Heart rate 80-100 bpm
Titrate by mg/hr:: 5 mg/hr
Frequency of titrations (minutes):: 15
Maximum dose in mg/hr:: 15
10/29/24 21:43
Echo 2D MMode Doppler [Echo 2D MMode Color/Doppler] Routine
Reason for Study: CHF, A-Fib
Heparin Protocol- PTT Orders As Directed
PTT per Heparin protocol: -Obtain CBC and baseline PTT - if not already collected.
-Obtain PTT 6 hours from start of infusion. Then, every 6 hours until 2 consecutive
PTT's are therapeutic. Then, PTT Daily.
-With each rate change, obtain PTT every 6 hours until 2 consecutive PTT's are
therapeutic. Then, PTT Daily.
Notify MD As Directed
Notify physician if: PTT is greater than or equal to 200.
10/29/24 22:00
CeFAZolin 2 GRAM [Ancef] 2 grams in 10 ml IV Q8H
10/30/24 08:00
Methimazole [Tapazole] 10 mg PO DAILY
Metoprolol Xl [Toprol Xl] 50 mg PO BID
10/31/24 06:00
Complete Blood Count/No Diff Q2D
Comment: notify provider: Platelet count < 130,000 or decrease by 50% from baseline
11/02/24 06:00
Complete Blood Count/No Diff Q2D
Comment: notify provider: Platelet count < 130,000 or decrease by 50% from baseline
11/04/24 06:00
Complete Blood Count/No Diff Q2D
Comment: notify provider: Platelet count < 130,000 or decrease by 50% from baseline
11/06/24 06:00
Complete Blood Count/No Diff Q2D
Comment: notify provider: Platelet count < 130,000 or decrease by 50% from baseline
11/08/24 06:00
Complete Blood Count/No Diff Q2D
Comment: notify provider: Platelet count < 130,000 or decrease by 50% from baseline
11/10/24 06:00
Complete Blood Count/No Diff Q2D
Comment: notify provider: Platelet count < 130,000 or decrease by 50% from baseline
11/12/24 06:00
Complete Blood Count/No Diff Q2D
Comment: notify provider: Platelet count < 130,000 or decrease by 50% from baseline
11/14/24 06:00
Complete Blood Count/No Diff Q2D
Comment: notify provider: Platelet count < 130,000 or decrease by 50% from baseline
Abnormal Lab Results
10/29/24 10/29/24 10/29/24
14:56 20:06 20:14
WBC 12.7 H 10^3/uL
(4.8-10.8)
MCV 97.5 H fL
(80.0-94.0)
MCH 32.1 H pg
(27.0-31.0)
RDW 15.4 H %
(11.5-14.5)
Absolute Neuts (auto) 9.9 H 10^3/uL
(1.4-6.5)
Absolute Monos (auto) 1.1 H 10^3/uL
(0.1-0.6)
Neutrophils % 78.5 H %
(42.2-75.2)
Lymphocytes % 11.7 L %
(20.5-51.1)
POC ABG O2 Sat (Calc) 99.7 H %
(94-98)
Chloride 108 H mmol/L
(98-107)
Carbon Dioxide 20 L mmol/L
(22-30)
Glucose 118 H mg/dl
(70-99)
Total Bilirubin 3.9 H mg/dl
(0.2-1.3)
Total Protein 6.1 L g/dl
(6.3-8.2)
POC pH 7.32 L
(7.35-7.45)
POC pO2 228 H mmHg
(83-108)
POC Glucose 101 H mg/dl
(70-99)
POC Lactate 1.65 H mmol/L
(0.36-0.75)
POC ACT Low Range 160 H Seconds 382 H Seconds
(116-155) (116-155)
10/29/24 14:56
10/29/24 14:56
Vital Signs
Initial and Last Documented VS:
Initial Vital Signs
Temp Pulse Resp BP Pulse Ox
36.7 C 139 20 119/75 98
10/29/24 14:44 10/29/24 14:44 10/29/24 14:44 10/29/24 14:44 10/29/24 14:44
Last Documented Vital Signs
Temp Pulse Resp BP Pulse Ox
36.7 C 141 19 110/72 98
10/29/24 14:44 10/29/24 19:00 10/29/24 19:00 10/29/24 18:15 10/29/24 19:00
Nolt;Froy Hopkins, DO - Last Filed: 10/29/24 20:00>
Orders/Labs/Results
Orders:
Orders
10/29/24 14:50
US Periph Venous LOWER Ext RT Urgent
Comment:
Reason For Exam: pain med R thigh, knee and ankle. Hx DVt, on Eliqu
10/29/24 14:56
Complete Blood Count/With Diff Urgent
Comprehensive Metabolic Panel Urgent
Free T4 Urgent
Comment: ADD ON
10/29/24 16:27
Electrocardiogram (*1) Urgent
Reason for Study: Atrial Fibrillation
EKG- Treatment ONCE
10/29/24 16:35
Metoprolol [Lopressor] 5 mg IV NOW STA
10/29/24 16:36
CR Chest Portable - 1 View Urgent
Comment:
Reason For Exam: afib with rvr
Reason Study Needs to be Portable: Patient Unstable
10/29/24 16:53
NT-proBNP Urgent
10/29/24 16:54
CT Abd Aorta Angio W/ Run Off Urgent
Comment:
Reason For Exam: pulseless R foot, swelling, pain, afib rvr
10/29/24 16:56
CT Chest Pe Study Urgent
Comment:
Reason For Exam: r leg swelling, afib rvr, noncompliant eliquis,
10/29/24 18:50
Heparin 4,000 units IV NOW STA
10/29/24 18:51
Fentanyl Citrate/Pf [Sublimaze] 250 mcg .ROUTE .STK-MED ONE
Lidocaine 2% Mpf [Xylocaine Mpf 2%] 100 mg .ROUTE .STK-MED ONE
Midazolam HCl [Versed] 2 mg .ROUTE .STK-MED ONE
Rocuronium Hull [Rocuronium] 100 mg .ROUTE .STK-MED ONE
10/29/24 18:53
PTT Urgent
Comment: Obtain baseline before beginning heparin infusion if not already collected
Nursing to Place Non Medication Order As Directed
Physician Order: PTT 6 hours after initial start of Heparin infusion
10/29/24 19:00
Heparin 37016 Units/250 ml 25,000 units in 250 ml IV PER PROTOCOL
Weight to be used for heparin protocol in kilograms (kg):: 136.8
Protocol:: Vascular Surgery
PTT Goal Range to be used:: PTT 73 to 111 seconds
Order type:: Initial
INITIAL Infusion Dose (UNITS/KG/hr) & then follow protocol:: 18 units/kg/hr
Infusion Dose in UNITS/hr & then follow protocol (UNITS/hr):: 2,000
INFUSION RATE in mL/hr & then follow protocol (mL/hr):: 20
PTT less than or equal to 64 seconds:: Notify Ordering Provider. obtain orders for rate increase &
possible bolus
PTT 64.1 to 72.9 seconds:: Increase rate by 100 units/hr (+ 1 mL/hr)
PTT 73 to 111 seconds:: Target Range. No change in rate.
PTT 111.1 to 130.9 seconds:: Decrease rate by 100 units/hr (- 1 mL/hr)
PTT 131 to 199.9 seconds:: HOLD for 1 hour. Then decrease rate by 200 units/hr (- 2 mL/hr)
PTT greater than or equal to 200 seconds:: STOP INFUSION. Notify Ordering provider to obtain further orders.
Lab follow-up:: Each change, PTT q6h until 2 consecutive are therapeutic. Then PTT
daily.
10/29/24 19:04
Heparin 10,000 units .ROUTE .STK-MED ONE
10/29/24 19:05
Lidocaine HCl/Pf [Xylocaine-Mpf 1% Vial] 50 mg .ROUTE .STK-MED ONE
10/29/24 19:07
EPINEPHrine PF [Adrenalin] 4 mg .ROUTE .STK-MED ONE
NORepinephrine 4 MG/250 ML [Levophed] 4 mg in 250 ml .ROUTE .STK-MED
10/29/24 19:08
Vasopressin [Pitressin] 20 units .ROUTE .STK-MED ONE
10/29/24 19:28
Ketamine 5 ml .ROUTE .STK-MED
10/29/24 19:30
Lactic Acid Urgent
10/29/24 19:46
Type+Screen Stat
10/29/24 19:54
CeFAZolin SODIUM [Ancef] 1,000 mg .ROUTE .STK-MED ONE
10/29/24 19:56
CeFAZolin SODIUM [Ancef] 1,000 mg .ROUTE .STK-MED ONE
10/29/24 19:57
CeFAZolin SODIUM [Ancef] 1,000 mg .ROUTE .STK-MED ONE
10/29/24 19:58
CeFAZolin SODIUM [Ancef] 1,000 mg .ROUTE .STK-MED ONE
CeFAZolin SODIUM [Ancef] 1,000 mg .ROUTE .STK-MED ONE
10/29/24 20:12
Metoprolol [Lopressor] 5 mg .ROUTE .STK-MED ONE
10/29/24 20:16
Diphenhydramine [Benadryl] 50 mg .ROUTE .STK-MED ONE
Famotidine [Pepcid] 20 mg .ROUTE .STK-MED ONE
10/29/24 20:24
Midazolam HCl [Versed] 5 mg .ROUTE .STK-MED ONE
10/29/24 20:27
Rocuronium Hull [Rocuronium] 100 mg .ROUTE .STK-MED ONE
10/29/24 20:52
Thrombin Topical (Bovine) [Thrombin-Jmi 51325 Unit Vial] 20,000 units .ROUTE .STK-MED ONE
10/29/24 20:56
Phenylephrine [Zaki-Synephrine] 10 mg .ROUTE .STK-MED ONE
10/29/24 20:59
VASCULAR OR PATHOLOGY Routine
Pre-Operative Diagnosis: ACUTE LIMB ISCHEMIA
Operative Procedure: RIGHT LOWER EXTREMITY THROMBOEMBOLECTOMY
Surgeon: ROBBI
Circulating Nurse: YARELIS
Specimen Type: R LE THROMBUS
10/29/24 21:09
Dexmedetomidine HCl [Precedex] 200 mcg .ROUTE .STK-MED ONE
Dexmedetomidine HCl [Precedex] 400 mcg .ROUTE .STK-MED ONE
10/29/24 21:14
Vasopressin [Pitressin] 40 units .ROUTE .STK-MED ONE
10/29/24 21:26
Admit/Transfer Patient As Directed
Co-Sign Provider:
Level of Care: Inpatient admission
Assign to:: ICU
Physician / Group: Wilfredo
Diagnosis: RLE Vascular Occlusion, A-Fib with RVR
Reason for Hospitalization: RLE Vascular Occlusion, A-Fib with RVR
Expected length of stay greater than two midnights?: Yes
ELOS- Estimated Length of Stay in days: 3
I certify the patient meets the requirements for IP care: Yes
PRN Pain Medication Management As Directed
May give lesser potent ordered pain med per pt: Yes
preference::
Protocol:: Medication orders for pain may be administered in a
manner that supports deferring to patient preference
when the pt is:
- Requesting an ordered lesser potent pain medication.
Least to most potent pain medications are defined
as: acetaminophen < NSAID < tramadol < opioids
(morphine, oxycodone, hydromorphone).
- Requesting a lesser dose of the same medication IF
ORDERED.
- Requesting a less intrusive route of administration
if both routes are prescribed by the provider (PO <
IV).
10/29/24 21:43
Diltiazem 125 mg/125 ml Nss [Cardizem] 125 mg in 125 ml IV PER PROTOCOL
Initial dose in mg/hr, then titrate:: 5
Titrate to keep:: Heart rate 80-100 bpm
Titrate by mg/hr:: 5 mg/hr
Frequency of titrations (minutes):: 15
Maximum dose in mg/hr:: 15
10/29/24 21:43
Echo 2D MMode Doppler [Echo 2D MMode Color/Doppler] Routine
Reason for Study: CHF, A-Fib
Heparin Protocol- PTT Orders As Directed
PTT per Heparin protocol: -Obtain CBC and baseline PTT - if not already collected.
-Obtain PTT 6 hours from start of infusion. Then, every 6 hours until 2 consecutive
PTT's are therapeutic. Then, PTT Daily.
-With each rate change, obtain PTT every 6 hours until 2 consecutive PTT's are
therapeutic. Then, PTT Daily.
Notify MD As Directed
Notify physician if: PTT is greater than or equal to 200.
10/29/24 22:00
CeFAZolin 2 GRAM [Ancef] 2 grams in 10 ml IV Q8H
10/30/24 08:00
Methimazole [Tapazole] 10 mg PO DAILY
Metoprolol Xl [Toprol Xl] 50 mg PO BID
10/31/24 06:00
Complete Blood Count/No Diff Q2D
Comment: notify provider: Platelet count < 130,000 or decrease by 50% from baseline
11/02/24 06:00
Complete Blood Count/No Diff Q2D
Comment: notify provider: Platelet count < 130,000 or decrease by 50% from baseline
11/04/24 06:00
Complete Blood Count/No Diff Q2D
Comment: notify provider: Platelet count < 130,000 or decrease by 50% from baseline
11/06/24 06:00
Complete Blood Count/No Diff Q2D
Comment: notify provider: Platelet count < 130,000 or decrease by 50% from baseline
11/08/24 06:00
Complete Blood Count/No Diff Q2D
Comment: notify provider: Platelet count < 130,000 or decrease by 50% from baseline
11/10/24 06:00
Complete Blood Count/No Diff Q2D
Comment: notify provider: Platelet count < 130,000 or decrease by 50% from baseline
11/12/24 06:00
Complete Blood Count/No Diff Q2D
Comment: notify provider: Platelet count < 130,000 or decrease by 50% from baseline
11/14/24 06:00
Complete Blood Count/No Diff Q2D
Comment: notify provider: Platelet count < 130,000 or decrease by 50% from baseline
Abnormal Lab Results
10/29/24 10/29/24 10/29/24
14:56 20:06 20:14
WBC 12.7 H 10^3/uL
(4.8-10.8)
MCV 97.5 H fL
(80.0-94.0)
MCH 32.1 H pg
(27.0-31.0)
RDW 15.4 H %
(11.5-14.5)
Absolute Neuts (auto) 9.9 H 10^3/uL
(1.4-6.5)
Absolute Monos (auto) 1.1 H 10^3/uL
(0.1-0.6)
Neutrophils % 78.5 H %
(42.2-75.2)
Lymphocytes % 11.7 L %
(20.5-51.1)
POC ABG O2 Sat (Calc) 99.7 H %
(94-98)
Chloride 108 H mmol/L
(98-107)
Carbon Dioxide 20 L mmol/L
(22-30)
Glucose 118 H mg/dl
(70-99)
Total Bilirubin 3.9 H mg/dl
(0.2-1.3)
Total Protein 6.1 L g/dl
(6.3-8.2)
POC pH 7.32 L
(7.35-7.45)
POC pO2 228 H mmHg
(83-108)
POC Glucose 101 H mg/dl
(70-99)
POC Lactate 1.65 H mmol/L
(0.36-0.75)
POC ACT Low Range 160 H Seconds 382 H Seconds
(116-155) (116-155)
10/29/24 14:56
10/29/24 14:56
Vital Signs
Initial and Last Documented VS:
Initial Vital Signs
Temp Pulse Resp BP Pulse Ox
36.7 C 139 20 119/75 98
10/29/24 14:44 10/29/24 14:44 10/29/24 14:44 10/29/24 14:44 10/29/24 14:44
Last Documented Vital Signs
Temp Pulse Resp BP Pulse Ox
36.7 C 141 19 110/72 98
10/29/24 14:44 10/29/24 19:00 10/29/24 19:00 10/29/24 18:15 10/29/24 19:00
<Kari Hernandez PA-C - Last Filed: 10/29/24 21:58>
Orders/Labs/Results
Orders:
Orders
10/29/24 14:50
US Periph Venous LOWER Ext RT Urgent
Comment:
Reason For Exam: pain med R thigh, knee and ankle. Hx DVt, on Eliqu
10/29/24 14:56
Complete Blood Count/With Diff Urgent
Comprehensive Metabolic Panel Urgent
Free T4 Urgent
Comment: ADD ON
10/29/24 16:27
Electrocardiogram (*1) Urgent
Reason for Study: Atrial Fibrillation
EKG- Treatment ONCE
10/29/24 16:35
Metoprolol [Lopressor] 5 mg IV NOW STA
10/29/24 16:36
CR Chest Portable - 1 View Urgent
Comment:
Reason For Exam: afib with rvr
Reason Study Needs to be Portable: Patient Unstable
10/29/24 16:53
NT-proBNP Urgent
10/29/24 16:54
CT Abd Aorta Angio W/ Run Off Urgent
Comment:
Reason For Exam: pulseless R foot, swelling, pain, afib rvr
10/29/24 16:56
CT Chest Pe Study Urgent
Comment:
Reason For Exam: r leg swelling, afib rvr, noncompliant eliquis,
10/29/24 18:50
Heparin 4,000 units IV NOW STA
10/29/24 18:51
Fentanyl Citrate/Pf [Sublimaze] 250 mcg .ROUTE .STK-MED ONE
Lidocaine 2% Mpf [Xylocaine Mpf 2%] 100 mg .ROUTE .STK-MED ONE
Midazolam HCl [Versed] 2 mg .ROUTE .STK-MED ONE
Rocuronium Hull [Rocuronium] 100 mg .ROUTE .STK-MED ONE
10/29/24 18:53
PTT Urgent
Comment: Obtain baseline before beginning heparin infusion if not already collected
Nursing to Place Non Medication Order As Directed
Physician Order: PTT 6 hours after initial start of Heparin infusion
10/29/24 19:00
Heparin 93118 Units/250 ml 25,000 units in 250 ml IV PER PROTOCOL
Weight to be used for heparin protocol in kilograms (kg):: 136.8
Protocol:: Vascular Surgery
PTT Goal Range to be used:: PTT 73 to 111 seconds
Order type:: Initial
INITIAL Infusion Dose (UNITS/KG/hr) & then follow protocol:: 18 units/kg/hr
Infusion Dose in UNITS/hr & then follow protocol (UNITS/hr):: 2,000
INFUSION RATE in mL/hr & then follow protocol (mL/hr):: 20
PTT less than or equal to 64 seconds:: Notify Ordering Provider. obtain orders for rate increase &
possible bolus
PTT 64.1 to 72.9 seconds:: Increase rate by 100 units/hr (+ 1 mL/hr)
PTT 73 to 111 seconds:: Target Range. No change in rate.
PTT 111.1 to 130.9 seconds:: Decrease rate by 100 units/hr (- 1 mL/hr)
PTT 131 to 199.9 seconds:: HOLD for 1 hour. Then decrease rate by 200 units/hr (- 2 mL/hr)
PTT greater than or equal to 200 seconds:: STOP INFUSION. Notify Ordering provider to obtain further orders.
Lab follow-up:: Each change, PTT q6h until 2 consecutive are therapeutic. Then PTT
daily.
10/29/24 19:04
Heparin 10,000 units .ROUTE .STK-MED ONE
10/29/24 19:05
Lidocaine HCl/Pf [Xylocaine-Mpf 1% Vial] 50 mg .ROUTE .STK-MED ONE
10/29/24 19:07
EPINEPHrine PF [Adrenalin] 4 mg .ROUTE .STK-MED ONE
NORepinephrine 4 MG/250 ML [Levophed] 4 mg in 250 ml .ROUTE .STK-MED
10/29/24 19:08
Vasopressin [Pitressin] 20 units .ROUTE .STK-MED ONE
10/29/24 19:28
Ketamine 5 ml .ROUTE .STK-MED
10/29/24 19:30
Lactic Acid Urgent
10/29/24 19:46
Type+Screen Stat
10/29/24 19:54
CeFAZolin SODIUM [Ancef] 1,000 mg .ROUTE .STK-MED ONE
10/29/24 19:56
CeFAZolin SODIUM [Ancef] 1,000 mg .ROUTE .STK-MED ONE
10/29/24 19:57
CeFAZolin SODIUM [Ancef] 1,000 mg .ROUTE .STK-MED ONE
10/29/24 19:58
CeFAZolin SODIUM [Ancef] 1,000 mg .ROUTE .STK-MED ONE
CeFAZolin SODIUM [Ancef] 1,000 mg .ROUTE .STK-MED ONE
10/29/24 20:12
Metoprolol [Lopressor] 5 mg .ROUTE .STK-MED ONE
10/29/24 20:16
Diphenhydramine [Benadryl] 50 mg .ROUTE .STK-MED ONE
Famotidine [Pepcid] 20 mg .ROUTE .STK-MED ONE
10/29/24 20:24
Midazolam HCl [Versed] 5 mg .ROUTE .STK-MED ONE
10/29/24 20:27
Rocuronium [place] [Rocuronium] 100 mg .ROUTE .STK-MED ONE
10/29/24 20:52
Thrombin Topical (Bovine) [Thrombin-Jmi 72268 Unit Vial] 20,000 units .ROUTE .STK-MED ONE
10/29/24 20:56
Phenylephrine [Zaki-Synephrine] 10 mg .ROUTE .STK-MED ONE
10/29/24 20:59
VASCULAR OR PATHOLOGY Routine
Pre-Operative Diagnosis: ACUTE LIMB ISCHEMIA
Operative Procedure: RIGHT LOWER EXTREMITY THROMBOEMBOLECTOMY
Surgeon: ROBBI
Circulating Nurse: YARELIS
Specimen Type: R LE THROMBUS
10/29/24 21:09
Dexmedetomidine HCl [Precedex] 200 mcg .ROUTE .STK-MED ONE
Dexmedetomidine HCl [Precedex] 400 mcg .ROUTE .STK-MED ONE
10/29/24 21:14
Vasopressin [Pitressin] 40 units .ROUTE .STK-MED ONE
10/29/24 21:26
Admit/Transfer Patient As Directed
Co-Sign Provider:
Level of Care: Inpatient admission
Assign to:: ICU
Physician / Group: Wilfredo
Diagnosis: RLE Vascular Occlusion, A-Fib with RVR
Reason for Hospitalization: RLE Vascular Occlusion, A-Fib with RVR
Expected length of stay greater than two midnights?: Yes
ELOS- Estimated Length of Stay in days: 3
I certify the patient meets the requirements for IP care: Yes
PRN Pain Medication Management As Directed
May give lesser potent ordered pain med per pt: Yes
preference::
Protocol:: Medication orders for pain may be administered in a
manner that supports deferring to patient preference
when the pt is:
- Requesting an ordered lesser potent pain medication.
Least to most potent pain medications are defined
as: acetaminophen < NSAID < tramadol < opioids
(morphine, oxycodone, hydromorphone).
- Requesting a lesser dose of the same medication IF
ORDERED.
- Requesting a less intrusive route of administration
if both routes are prescribed by the provider (PO <
IV).
10/29/24 21:43
Diltiazem 125 mg/125 ml Nss [Cardizem] 125 mg in 125 ml IV PER PROTOCOL
Initial dose in mg/hr, then titrate:: 5
Titrate to keep:: Heart rate 80-100 bpm
Titrate by mg/hr:: 5 mg/hr
Frequency of titrations (minutes):: 15
Maximum dose in mg/hr:: 15
10/29/24 21:43
Echo 2D MMode Doppler [Echo 2D MMode Color/Doppler] Routine
Reason for Study: CHF, A-Fib
Heparin Protocol- PTT Orders As Directed
PTT per Heparin protocol: -Obtain CBC and baseline PTT - if not already collected.
-Obtain PTT 6 hours from start of infusion. Then, every 6 hours until 2 consecutive
PTT's are therapeutic. Then, PTT Daily.
-With each rate change, obtain PTT every 6 hours until 2 consecutive PTT's are
therapeutic. Then, PTT Daily.
Notify MD As Directed
Notify physician if: PTT is greater than or equal to 200.
10/29/24 22:00
CeFAZolin 2 GRAM [Ancef] 2 grams in 10 ml IV Q8H
10/30/24 08:00
Methimazole [Tapazole] 10 mg PO DAILY
Metoprolol Xl [Toprol Xl] 50 mg PO BID
10/31/24 06:00
Complete Blood Count/No Diff Q2D
Comment: notify provider: Platelet count < 130,000 or decrease by 50% from baseline
11/02/24 06:00
Complete Blood Count/No Diff Q2D
Comment: notify provider: Platelet count < 130,000 or decrease by 50% from baseline
11/04/24 06:00
Complete Blood Count/No Diff Q2D
Comment: notify provider: Platelet count < 130,000 or decrease by 50% from baseline
11/06/24 06:00
Complete Blood Count/No Diff Q2D
Comment: notify provider: Platelet count < 130,000 or decrease by 50% from baseline
11/08/24 06:00
Complete Blood Count/No Diff Q2D
Comment: notify provider: Platelet count < 130,000 or decrease by 50% from baseline
11/10/24 06:00
Complete Blood Count/No Diff Q2D
Comment: notify provider: Platelet count < 130,000 or decrease by 50% from baseline
11/12/24 06:00
Complete Blood Count/No Diff Q2D
Comment: notify provider: Platelet count < 130,000 or decrease by 50% from baseline
11/14/24 06:00
Complete Blood Count/No Diff Q2D
Comment: notify provider: Platelet count < 130,000 or decrease by 50% from baseline
Abnormal Lab Results
10/29/24 10/29/24 10/29/24
14:56 20:06 20:14
WBC 12.7 H 10^3/uL
(4.8-10.8)
MCV 97.5 H fL
(80.0-94.0)
MCH 32.1 H pg
(27.0-31.0)
RDW 15.4 H %
(11.5-14.5)
Absolute Neuts (auto) 9.9 H 10^3/uL
(1.4-6.5)
Absolute Monos (auto) 1.1 H 10^3/uL
(0.1-0.6)
Neutrophils % 78.5 H %
(42.2-75.2)
Lymphocytes % 11.7 L %
(20.5-51.1)
POC ABG O2 Sat (Calc) 99.7 H %
(94-98)
Chloride 108 H mmol/L
(98-107)
Carbon Dioxide 20 L mmol/L
(22-30)
Glucose 118 H mg/dl
(70-99)
Total Bilirubin 3.9 H mg/dl
(0.2-1.3)
Total Protein 6.1 L g/dl
(6.3-8.2)
POC pH 7.32 L
(7.35-7.45)
POC pO2 228 H mmHg
(83-108)
POC Glucose 101 H mg/dl
(70-99)
POC Lactate 1.65 H mmol/L
(0.36-0.75)
POC ACT Low Range 160 H Seconds 382 H Seconds
(116-155) (116-155)
10/29/24 14:56
10/29/24 14:56
Vital Signs
Initial and Last Documented VS:
Initial Vital Signs
Temp Pulse Resp BP Pulse Ox
36.7 C 139 20 119/75 98
10/29/24 14:44 10/29/24 14:44 10/29/24 14:44 10/29/24 14:44 10/29/24 14:44
Last Documented Vital Signs
Temp Pulse Resp BP Pulse Ox
36.7 C 141 19 110/72 98
10/29/24 14:44 10/29/24 19:00 10/29/24 19:00 10/29/24 18:15 10/29/24 19:00
<Froy Hopkins DO - Last Filed: 10/29/24 20:00>
MDM/Problems Addressed
Differential Diagnosis Includes:
DVT arterial insufficiency A-fib occult infection
MDM/Problems Addressed:
pvd
Chronic conditions affecting care:
pvd
<Kari Hernandez PA-C - Last Filed: 10/29/24 21:58>
MDM/Problems Addressed
MDM/Problems Addressed:
janae bargers 59 y/o M
afib noncompliant with meds
06/2023 had thrombectomy L iliac artery
woke up this morning with RLE pain/swelling
has been in afib with RVR with bp 110s, not hypoxic,
with slight swelling in the RLE, minimally cool foot and no dopplered pulses;
d/w dr. candelaria's PA who was aware of the w/u with CT pe, aorta with runoff
we did give small bolus of lopressor which didn't help much with rate control
but wanted to know if he had a PE before more rate control
waiting on the PE study but in the meantime, dr candelaria saw the angio of the abdomen with run off and pt has complete R iliac artery occlusion
vascular surgeon dr. candelaria will take pt to the OR
pe study negative
before HR could be addressed pt was taken up for OR
we were allowing for permissive tachycardia until we knew whether pt had PE
pt maintained BP
ICU admission
<Froy Hopkins DO - Last Filed: 10/29/24 20:00>
*City Marshal Interpretation
Rate: tachycardiac
Interpretation: abnormal
Heart Rate: 140
Rhythm: a-fib and atrial flutter
*Critical Care Note
Total Time (30-74mins, 75-104mins- exclusive of procedures): 32
ED Attending Note
<Felicita Lewis, HANDLE ASSEMBLER - Last Filed: 10/29/24 14:52>
-
Portions of this chart may have been created with voice recognition software.� Occasional wrong word or��sound alike� substitutions may have occurred due to the inherent limitations of voice recognition software.
<Froy Hopkins DO - Last Filed: 10/29/24 20:00>
ED Attending Note
Patient seen and examined by attending physician: Yes
I performed a history and physical exam of patient and discussed management with resident, I reviewed resident's note and agree with documented findings and plan of care.: Yes
ED Attending Note:
seen with Pa agree with assessment and plan 59-year-old male history of thrombectomy question noncompliant with his anticoagulation looks like the rapid A-fib here, poor historian, swollen but cool lower extremity on the right diminished pulses are
present plan will be CT angiogram chest abdomen pelvis, vascular consult
Discharge Plan
Departure
Patient Disposition: Admit
Date of Disposition: 10/29/24
Time of Disposition: 18:55
Admit to: ICU
Presentation/result/management discussed w/ accepting MD/DO: Hospitalist
Condition: Critical
Discharge Problem:
Acute lower limb ischemia, Atrial fibrillation with rapid ventricular response
Interventions
Interventions:
*Risk Screen - Suicide Last Done: 10/29/24 16:34
*General Assessment Last Done: 10/29/24 14:44
*Neglect/Abuse Screening Last Done: 10/29/24 16:34
ED- Fall Risk Assessment Last Done: 10/29/24 16:34
*ED COVID-19 Vaccine History Last Done: 10/29/24 16:34
*Nursing Disposition Last Done: 10/29/24 19:24
ED- Cardiac Assessment Last Done: 10/29/24 16:34
ED- Pulmonary Assessment Last Done: 10/29/24 16:34
ED-Skin Assessment Last Done: 10/29/24 16:34
Discharge Date and Time
Discharge Date/Time: 10/29/24 20:23
[2024-10-29 15:07] LABS: % Basophils 0.6 % (0-2); % Eosinophils 0.4 % (0-6); % Immature Granulocytes 0.3 % (0-0.5); % Lymphocytes 11.7 % (20.5-51.1); % Monocytes 8.5 % (1.7-9.3); % Neutrophils 78.5 % (42.2-75.2); Absolute Basophils 0.1 10^3/uL (0-0.2); Absolute Eosinophils 0.1 10^3/uL (0-0.7); Absolute Lymphocytes 1.5 10^3/uL (1.2-3.4); Absolute Monocytes 1.1 10^3/uL (0.1-0.6); Absolute Neutrophils 9.9 10^3/uL (1.4-6.5); Hematocrit 46.4 % (39.0-52.0); Hemoglobin 15.3 g/dL (13.0-18.0); Mean Corpuscular Hgb 32.1 pg (27.0-31.0); Mean Corpuscular Volume 97.5 fL (80.0-94.0); Mean Platelet Volume 9.6 fL (7.4-10.4); Nucleated Red Blood Cells % 0.2 % (-); Platelet Count 295 10^3/uL (130-400); Red Blood Cell Count 4.76 10^6/uL (4.70-6.10); Red Cell Dist. Width 15.4 % (11.5-14.5); White Blood Cell Count 12.7 10^3/uL (4.8-10.8)
[2024-10-29 15:22] LABS: ALT (SGPT) 18 U/L (0-50); AST (SGOT) 19 U/L (17-59); Albumin 3.5 g/dl (3.5-5.0); Alkaline Phosphatase 122 U/L (38-126); Blood Urea Nitrogen 14 mg/dl (9-20); Calcium 9.1 mg/dl (8.4-10.2); Carbon Dioxide 20 mmol/L (22-30); Chloride 108 mmol/L (98-107); Glucose 118 mg/dl (70-99); Potassium 4.1 mmol/L (3.5-5.1); Sodium 139 mmol/L (135-145); Total Bilirubin 3.9 mg/dl (0.2-1.3); Total Protein 6.1 g/dl (6.3-8.2); eGFR > 60.00
[2024-10-29] MEDS: LOPRESSOR 5 MG IV (16:48)
[2024-10-29 17:35] LABS: NT-proBNP 5640 pg/ml
--- NOTE | 2024-10-29 19:23 | CON.VAS ---
Consultation
Consultation Request
Date/Time Consultation Requested: 10/29/24
Date/Time Consultation Performed: 10/29/24
Requesting Provider: Mary
Performing Provider: Rock
Reason for Consultation: Cold right leg
Medical History
-
Chief Complaint: Leg swelling and inability to stand
History of Present Illness:
59 yo male with multiple medical problems including Afib, HFrEF (10%) and previous LLE thromboembolectomy in 2022 who presents with acute onset leg swelling and discomfort with standing starting this AM
Feeling fine in the days/weeks leading up to this AM
No pain currently
Afib/RVR in the ED
Reports being fully compliant with anticoagulation as well as all of his medication but cannot remember if he took anticoagulation this AM
ED noted patients right foot to be cooler than the left
No Dopp signals present in right foot
CTA obtained
CTA images personally reviewed by me. Right iliac occlusion with distal reconstitution identified
Past Medical History
Past Medical History: Arrhythmias, CHF and HTN
Past Surgical History: Other (LLE thrombectomy (Holder) 2022)
Allergies / Home Medications
Allergy/AdvReac Type Severity Reaction Status Date / Time
No Known Allergies Allergy Verified 10/29/24 14:44
�Medication �Instructions �Recorded �Confirmed �Type
apixaban 5 mg tablet (Eliquis) 5 mg PO BID Blood clot 12/30/23 10/29/24 Rx
prevention/tx #60 tabs
empagliflozin 10 mg tablet 10 mg PO DAILY Heart Failure #0 12/30/23 10/29/24 Rx
(Jardiance) tabs
furosemide 40 mg tablet (Lasix) 40 mg PO BID Fluid 12/30/23 10/29/24 Rx
Retention/Swelling #0 tabs
methimazole 10 mg tablet 10 mg PO DAILY Thyroid 04/11/24 10/29/24 History
metoprolol succinate 50 mg 50 mg PO BID Heart Failure 04/11/24 10/29/24 History
tablet,extended release 24 hr
sacubitril 24 mg-valsartan 26 mg 1 tab PO BID 04/11/24 10/29/24 History
tablet (Entresto)
potassium chloride 20 mEq 20 meq PO DAILY 05/22/24 10/29/24 History
tablet,extended release
spironolactone 25 mg tablet 25 mg PO DAILY #90 tabs 05/22/24 10/29/24 Rx
Review of Systems
-
History Source: Patient
All other systems: Negative unless noted
Physical Exam
Vital Signs
Temp Pulse Resp BP Pulse Ox
98.1 F 141 19 110/72 98
10/29/24 14:44 10/29/24 19:00 10/29/24 19:00 10/29/24 18:15 10/29/24 19:00
Lab Results
10/29/24 14:56
10/29/24 14:56
Aif-L-Nyvetfmpxrs Pept 5640 pg/ml 10/29/24 16:53
Physical Exam
General: Well Developed and Well Nourished
HEENT: Moist Mucous Membranes
Respiratory: Non Labored Respirations
Cardiac: Irregular Rhythm
Skin: Dry and Other (Sluggish cap refill right toes compared to the left. No wounds/ulcers. Scattered varicose veins right leg)
Neuro: AO x 3
Pulses: Left Femoral: +1, Left Dorsalis Pedis: Doppler and Left Posterior Tibial: Doppler
Assessment / Plan
-
Acute limb ischemia with suspected thromboembolism to right iliac system
OR now for thrombectomy
Technical aspects discussed with him in detail
Benefits/rationale discussed with him in detail
Operative risks discussed with him in detail including but not limited to bleeding, infection, wound healing complications, [place], stroke, , distal embolization, need for additional procedures, limb loss.
He expressed a clear understanding and agrees to proceed.
-PJF3
Vascular Surgery
Data Reviewed
-
CT Scan: Image Personally Visualized and interpreted, Discussed with Physician and Discussed with Patient
Labs: Labs Reviewed by me
--- NOTE | 2024-10-29 19:42 | W.SUR.PREOP ---
Pre-Operative Surgical Note
-
I have examined this patient prior to the performance of the scheduled procedure.
The patient's condition is unchanged from the time of the current History and
Physical and the patient is able to undergo the scheduled procedure.
[2024-10-29 20:10] LABS: ACT-LR - POC 160 Seconds (116-155)
[2024-10-29 20:11] LABS: B.E. - POC -1.9 mmol/L; Glucose - POC 101 mg/dl (70-99); HCO3 - POC 25 mmol/L (21-28); Hematocrit - POC 47 % PCV (42-52); Hemodilution- POC No; Hemoglobin Calculated - POC 16.1; Ionized Calcium - POC 1.21 mmol/L (1.15-1.33); Lactate - POC 1.65 mmol/L (0.36-0.75); O2 Saturation %Calculated-POC 99.7 % (94-98); PCO2 - POC 48 mmHg (35-48); PO2 - POC 228 mmHg (83-108); Potassium - POC 4.6 mmol/L (3.5-5.1); Sodium - POC 143 mmol/L (136-145); Specimen Type - POC Arterial; pH - POC 7.32 (7.35-7.45)
[2024-10-29 20:21] LABS: ACT-LR - POC 382 Seconds (116-155)
--- NOTE | 2024-10-29 21:32 | OR.RPT ---
Operative Report
Operative Report
Date of Operation: 10/29/2024
Pre Op Diagnosis:
1. Acute limb ischemia right lower extremity
2. Thromboembolic occlusion right iliac system
3. Severe cardiomyopathy with reduced ejection fraction
4. Atrial fibrillation with rapid ventricular response
Post Op Diagnosis:
1. Acute limb ischemia right lower extremity
2. Thromboembolic occlusion right iliac system
3. Severe cardiomyopathy with reduced ejection fraction
4. Atrial fibrillation with rapid ventricular response
Procedure:
1. Thromboembolectomy of right iliac system from right femoral artery exposure
2. Thromboembolectomy of right superficial femoral artery, popliteal artery and profunda femoral artery from right femoral artery exposure
Surgeon: Elvis Wilkerson III, MD
Photography Intern: Rupert Martinez MD PhD, PGY2
Anesthesia: General
Complications: None
Estimated Blood Loss: 25 cc
History and Indications for Procedure: 59-year-old male with atrial fibrillation, cardiomyopathy with reduced ejection fraction of 10% and prior left lower extremity thromboembolism in 2022 who presents with acute limb ischemia involving his right
lower extremity. He was taken to the OR for thromboembolectomy
Procedure in Detail: Buster Velazquez was correctly identified and placed supine on the operating table. After adequate induction of anesthesia his abdomen, pelvis, bilateral groins and right lower extremity was prepped and draped in the usual sterile
fashion. He received preoperative antibiotics. A timeout procedure was performed with the nursing and anesthesia staff confirming the patient's identity as well as the nature and laterality of the procedure.
A vertical incision was made in the right groin. Electrocautery and sharp dissection were used to expose the common femoral artery. Lymphatics were identified, ligated and divided between silk ties. Proximal and distal control was obtained on the
common femoral artery. There was a very weak pulse in the common femoral artery. The common femoral artery was soft with some mild plaque palpable. Systemic heparin was administered. A transverse arteriotomy was made on the common femoral
artery. No thrombus was identified in the lumen of the common femoral artery. A #5 Wei balloon catheter was passed proximally. Several sweeps were made through the iliac system with dark chronic appearing thrombus removed. The Wei
balloon was passed until I had 3 negative sequential passes. Following this there was return of very brisk pulsatile arterial inflow. The proximal artery was flushed with heparinized saline. The vessel loop was resecured.
I then attempted to pass a #4 Wei catheter distally but had difficulty from the arteriotomy I had made directing the catheter into the SFA and profunda. I therefore closed the arteriotomy with a running 5-0 Prolene suture. I then continued
distal dissection and expose the proximal superficial femoral artery and profunda femoral artery. These were individually controlled with vessel loops. I then made a new arteriotomy on the common femoral artery at the femoral bifurcation. Again
no thrombus was identified in the lumen here. With this approach I was then able to individually pass Wei catheters down the profunda femoral artery and superficial femoral artery. I passed a #4 Wei down the profunda femoral artery first.
The first 2 passes returned chronic dark appearing thrombus. I then made additional passes returning no additional thrombus. I also passed a #3 Ewi and did not return any additional thrombus. There was pulsatile backbleeding from the profunda
femoral artery at this point and it was flushed with heparinized saline. I then secured the profunda vessel loop. I then directed a #4 Wei catheter distally down the superficial femoral artery. I passed the catheter down to the popliteal
artery. No thrombus was returned from the superficial femoral artery. Brisk backbleeding was identified from the superficial femoral artery and this was flushed with heparinized saline. The transverse arteriotomy was closed with 2 interrupted 5-0
Prolene sutures. All vessel loops were released. There was an easily palpable pulse in the common femoral artery, profunda femoral artery and proximal superficial femoral artery.
Both suture lines were closely inspected for hemostasis which was achieved. The wound was irrigated with saline solution. Hemostasis was achieved in the wound bed. The wound was then closed in layers and a sterile Kendell dressing was applied. The
patient had Doppler signals in the right foot at the conclusion of the case. These were marked at the skin level.
The patient tolerated the procedure with no immediate complication.
Attestation: I was present and responsible for the entire procedure
Signed:
Elvis Wilkerson III, MD
[facility] V[facility] Surgery
[phone] (irlh)
[2024-10-29] MEDS: CARDIZEM 125 IV (22:28)
[2024-10-29 22:36] LABS: Lactic Acid 2.4 mmol/L (0.7-2.0)
[2024-10-29 22:42] LABS: Free T4 2.33 ng/dl (0.78-2.19)
[2024-10-29 22:50] LABS: APTT 199.8 Sec (23.4-35.0)
--- NOTE | 2024-10-29 23:00 | PTCARENOTE ---
Pt received from OR at 2200. Sedated and intubated; no response to verbal/tactile stimulation, pupils round, sluggish, and equal, 1mm; afib on monitor rates 150-180's, pressures stable, radial pulses present; R DP pulse absent with Doppler, vascular
aware, ICUNP aware, PT pulse present with Doppler. Irregular apical pulse, distant heart tones. Lungs sounds rhonchus and diminished; ETT size 8 positioned and secured at 25 cm right lip; ventilator settings A/C 12/550/5 FiO2 100%; Normoactive BS
abdomen SNT, obese; Wilkerson catheter in place draining nicole urine, initial output 55; Diaphoretic, R groin vascular surgical site intact with JERRI dressing in place, device attached, indicator light blinking green. +1 lower extremity edema. L radial
a-line in place, line leveled and zeroed; REJ infusing gtt present, PIVx2; Precedex/KVO infusing; vaso initially on when patient brought to CVICU but subsequently removed shortly after. Cardizem gtt initiated for rate control. See nursing worklist
for further details.
[2024-10-29] MEDS: SUBLIMAZE 50 MCG IV (23:33)
--- NOTE | 2024-10-29 23:37 | HPS.HSE ---
Family Physician
-
Family Physician: Edmundo Hammond
Chief Complaint
-
RLE pain / swelling
History of Present Illness
Patient is a 59y M with PMH significant for PA-Fib, HFrEF and prior LLE embolism / ischemia who presents to ED complaining of RLE pain and swelling since this AM. History obtained from ED staff, Vascular Surgery and review of the chart. At [facility]
time of my examination, patient is sedated and intubated in the ICU.
Patient presented to the ED c.o new onset RLE pain that was worse with standing / weight bearing.
Evaluation in the ED revealed evidence of complete occlusion of the R iliac artery and patient was taken emergently to the OR for re-vascularization.
He was also noted to be in A-Fib with rapid ventricular rates in the ED - with rates into the 180s.
Patient had stated to staff that he was compliant with his prescribed medications. It is noted that he has a prior history of med non-compliance.
Medical History
Past Medical History
Past Medical History: Reports Other
Additional Past Medical History:
Paroxysmal Atrial Fibrillation
Limb Threatening Ischemic / Embolic Event LLE (06/2023)
Chronic HFrEF
Hyperthyroidism
Morbid Obesity
Past Surgical History: Reports Other
Additional Past Surgical History:
LLE Thrombectomy (06/2023)
Cardiac Cath - no significant coronary disease (05/2024)
Appendectomy
DCCV
Social History
Tobacco: Former Smoker
Alcohol: Occasional
Living: Alone
Employment: Employed
Family History
Family History: CAD (mom)
Allergies / Home Medications
Allergies reflects when Allergies were last updated in [facility].
Home Medications with original date entered in [facility]
Allergy/Medication List:
Allergies
Allergy/AdvReac Type Severity Reaction Status Date / Time
No Known Allergies Allergy Verified 10/29/24 14:44
Home Medications
apixaban 5 mg tablet (Eliquis) 5 mg PO BID Blood clot prevention/tx #60 tabs 12/30/23
empagliflozin 10 mg tablet (Jardiance) 10 mg PO DAILY Heart Failure #0 tabs 12/30/23
furosemide 40 mg tablet (Lasix) 40 mg PO BID Fluid Retention/Swelling #0 tabs 12/30/23
methimazole 10 mg tablet 10 mg PO DAILY Thyroid 04/11/24
metoprolol succinate 50 mg tablet,extended release 24 hr 50 mg PO BID Heart Failure 04/11/24
sacubitril 24 mg-valsartan 26 mg tablet (Entresto) 1 tab PO BID 04/11/24
potassium chloride 20 mEq tablet,extended release 20 meq PO DAILY 05/22/24
spironolactone 25 mg tablet 25 mg PO DAILY #90 tabs 05/22/24
Review of Systems
-
Unable to obtain full review of systems at this time due to: Patient Intubation
Physical Exam
Vital Signs
Vital Signs
Temp Pulse Resp BP Pulse Ox
98.1 F 168 14 144/112 97
10/29/24 14:44 10/29/24 22:50 10/29/24 22:10 10/29/24 22:39 10/29/24 22:50
Physical Exam
General: Other (59y M currently sedated / intubated in the ICU.)
HEENT: Moist mucous membranes, PERRLA and Other (ETT in place. R EJ / IJ single-lumen catheter in place. Neck supple.)
Respiratory: Clear; No Wheezes, Rales or Rhonchi
Cardiac: S1/S2, Irregular Rhythm and Tachycardia; No Murmur
GI: Soft, Non Tender, Non Distended and Normal Bowel Sounds
Musculoskeletal: Other (Doppler-able pulses in the R foot.)
Neuro: Sedated
Laboratory Results
-
10/29/24 14:56
Laboratory Results
APTT 199.8 Sec (23.4-35.0) H* 10/29/24 22:16
Lactic Acid 2.4 mmol/L (0.7-2.0) H 10/29/24 22:16
Total Bilirubin 3.9 mg/dl (0.2-1.3) H 10/29/24 14:56
AST 19 U/L (17-59) 10/29/24 14:56
ALT 18 U/L (0-50) 10/29/24 14:56
Alkaline Phosphatase 122 U/L (38-126) 10/29/24 14:56
Impression/Plan
-
A/P: Patient is a 59y M with PMH significant for PA-Fib, HFrEF and hyperthyroidism who presents to ED complaining of R foot pain and swelling since this AM.
Limb-Threatening Ischemia of the RLE
Thromboembolic Occlusion of the Right Iliac Artery
- Admit to ICU s/p R iliac thromboembolectomy by Vascular Surgery this evening.
- Follow post-op Vascular protocols including site checks, pulse checks, etc.
- Continuous anticoagulation with IV heparin and adjust based on PTT.
- Follow for clinical response.
- Appreciate Vascular Surgery evaluation and intervention.
Paroxysmal Atrial Fibrillation with Rapid Ventricular Response
- Rates into the 180s at times on presentation.
- Patient was reportedly fairly asymptomatic in terms of his rate control in the ED.
- IV diltiazem and titrate as needed for rate control.
- IV heparin as noted above.
- Change metoprolol to IV Lopressor for now - resume PO medications once extubated.
- Cardiology evaluation for additional recommendations.
Chronic HFrEF
- Patient does not appear grossly volume overloaded at present.
- GDMT on hold acutely due to hypotension.
- Follow I/Os, daily weights, etc.
- Dose IV Lasix as needed for now.
- BNP - while elevated at 5640 - is significantly lower than prior at 23k.
Hyperthyroidism
- Free T4 is elevated at present indicating poor control.
- Continue methimazole via OGT / PO.
- IV beta blockers acutely as noted above for heart rate / symptom control.
VDRF
- Patient is currently sedated / on vent.
- Maintain vent support overnight.
- Mobile Unit Assistant evaluation, hopefully SBT / extubation in the AM.
Morbid Obesity due to excess calories
- Affects all aspects of care.
- Encourage healthy diet and increased activity with goal of weight loss.
Medical Non-Compliance
- Patient with documented history of poor compliance.
- Though he states that he has been compliant with hid prescribed medications of late - his constellation of presenting symptoms would suggest otherwise.
- Continue to reinforce importance of med compliance.
DVT Prophylaxis: On IV Heparin.
Code Status: Full
[2024-10-29 23:38] LABS: B.E. -9.8 mmol/L; HCO3 20.8 mmol/L (21-28); O2 Saturation % 98.9 % (94-98); PCO2 64 mmHg (35-48); PO2 111 mmHg (83-108); Potassium 5.7 mMOL/L (3.5-5.1); Sodium 133 mMOL/L (136-145); pH 7.12 (7.35-7.45)
[2024-10-29 23:44] LABS: O2 Therapy 100%
[2024-10-29 23:50] LABS: Glucose - Point of Care 112 mg/dl (70-99)
[2024-10-30] VITALS (30 sets, daily range): BP systolic 71–146; BP diastolic 58–128; BMI 40.4
--- NOTE | 2024-10-30 | PTCARENOTE ---
No urine output after the initial output on arrival. ICU AMMONIUM NITRATE CRYSTALLIZER made aware. Patient periodically awakens, not following commands. IV gtts added per protocol, see work list. Heparin held for approx 1 hour after result and then initiated based on PTT of
199.8 - per ICU AMMONIUM NITRATE CRYSTALLIZER, started initial rate at 1800 and recheck PTT per protocol. Assessment of needs ongoing.
[2024-10-30 00:17] LABS: Blood Urea Nitrogen 16 mg/dl (9-20); Calcium 8.3 mg/dl (8.4-10.2); Carbon Dioxide 21 mmol/L (22-30); Chloride 106 mmol/L (98-107); Estimated Creatinine Clearance > 125 ml/min; Glucose 110 mg/dl (70-99); Magnesium 2.3 mg/dl (1.6-2.3); Potassium 5.5 mmol/L (3.5-5.1); Sodium 139 mmol/L (135-145); eGFR > 60.00
[2024-10-30] MEDS: SUBLIMAZE 50 MCG IV ×4 (00:33→09:51)
[2024-10-30] MEDS: CALCIUM CHLORIDE 10% SYRINGE 60 MG IV (01:48)
[2024-10-30 02:10] LABS: B.E. -6.2 mmol/L; HCO3 19.6 mmol/L (21-28); O2 Saturation % 99.7 % (94-98); PCO2 39 mmHg (35-48); PO2 135 mmHg (83-108); pH 7.31 (7.35-7.45)
[2024-10-30 02:12] LABS: O2 Therapy 80%
[2024-10-30] MEDS: SUBLIMAZE 100 IV (02:43)
[2024-10-30] MEDS: PRECEDEX 100 IV ×3 (03:26→10:57)
[2024-10-30] MEDS: ANCEF 10 IV ×2 (03:49→12:53)
--- NOTE | 2024-10-30 04:00 | PTCARENOTE ---
Patient placed in restraints around 0130 d/t spontaneous awakening/attempting to pull out tubes. Strengths 5/5 B/L in UEs, not following commands, unable to reorient. Fentanyl bolus + gtt initiated for sedation. Patient overbreathing ventilator,
continue intubation and defer to day team per ICU CONTRACTS ADVISOR. HR decreased to 80-110's, Cardizem gtt d/c'ed, hypotension subsequently improved. Weaning Zaki per protocol. Precedex and heparin continued. See work list for data.
[2024-10-30 06:06] LABS: Glucose - Point of Care 96 mg/dl (70-99)
[2024-10-30 06:21] LABS: Hematocrit 50.6 % (39.0-52.0); Hemoglobin 16.2 g/dL (13.0-18.0); Mean Corpuscular Hgb 31.9 pg (27.0-31.0); Mean Corpuscular Volume 99.6 fL (80.0-94.0); Mean Platelet Volume 9.3 fL (7.4-10.4); Platelet Count 261 10^3/uL (130-400); Red Blood Cell Count 5.08 10^6/uL (4.70-6.10); Red Cell Dist. Width 15.3 % (11.5-14.5); White Blood Cell Count 10.2 10^3/uL (4.8-10.8)
[2024-10-30] MEDS: LOPRESSOR 5 MG IV ×3 (06:30→17:15)
[2024-10-30 06:36] LABS: APTT 58.3 Sec (23.4-35.0); Lactic Acid 2.9 mmol/L (0.7-2.0)
[2024-10-30 07:11] LABS: Blood Urea Nitrogen 22 mg/dl (9-20); Calcium 9.2 mg/dl (8.4-10.2); Carbon Dioxide 18 mmol/L (22-30); Chloride 110 mmol/L (98-107); Estimated Creatinine Clearance 93 ml/min; Glucose 114 mg/dl (70-99); Potassium 5.1 mmol/L (3.5-5.1); Sodium 141 mmol/L (135-145); eGFR > 60.00
--- NOTE | 2024-10-30 07:50 | PTCARENOTE ---
Assumed care of patient at 0700. Pt is intubated and sedated on Precedex 0.7mcg/kg/hr and Fentanyl 50mcg/hr. Pupils 1, round, equal, and reactive to light. Pt remains in Afib with HR 89. BP 108/70 MAP 79. Currently on Zaki 20mcg/min. Remains
intubated with #8ET tube at 24cm right lip. Vent set to AC FiO2 60%, TV 550, Rate 20, PEEP 5. Pulse oximetry 97%. Bowel sounds hypoactive. Wilkerson catheter in place draining yellow urine. Right groin JERRI dressing intact. Right dorsalis pedal pulses
absent, right posterior tibial pulses present with Doppler. Bilateral lower extremities pale and cool. Left radial [place] intact. Pt remains on heparin gtt 1900units/hr.
--- NOTE | 2024-10-30 07:58 | CON.CAR ---
Addendum entered and electronically signed by Dev Onofre MD 10/30/24 09:35:
I saw and examined the patient.
The Paper Bags Sewing Machine Operator's note was reviewed and I agree with the note.
Comment:
GEN: No distress, intubated/sedated
HEENT: supple, anicteric, mmm, ET tube
LUNGS: CTA, no wheezes/rales
CV: irreg, S1/S2, 1/6 syst LSB, no gallop
ABD: soft, BS+, NT/ND
EXT: No edema
NEURO: Gross non-focal
SKIN: No rash
Plan:
He is known to our service with past medical history of nonischemic cardiomyopathy with EF of 10 to 15%, persistent atrial fibrillation, hypertension, hyperlipidemia, and noncompliance. He presented with an acute right iliac occlusion undergoing
thrombectomy. He remains intubated.
His ventricular rates are currently adequate on Lopressor IV. Continue IV heparin.
If he is unable to be extubated today would place NG tube for initiation of oral medications.
I likely would not switch his Eliquis to a different anticoagulant as I suspect he has been noncompliant. Will continue rate control strategy for his A-fib.
His potassium is slightly high. Will recheck in a.m. before restarting Entresto.
Would resume Jardiance. Creatinine stable at 1.2
Will repeat echo to reevaluate LVEF. Check TSH
He has not followed up in the past to pursue ICD for secondary prevention.
Original Note:
Consultation
Consultation Request
Date/Time Consultation Performed: 10/30/24
Requesting Provider: Dr. Haley
Performing Provider: Mely Cox PA-C for Dr. Kirkland
Reason for Consultation: afib
Medical History
-
Chief Complaint: cold R foot
History of Present Illness:
Patient is a 59-year-old male with past medical history of suspected cardioembolic occlusion of left common femoral artery related to likely persistent atrial fibrillation and presumed tachycardia mediated cardiomyopathy with EF 10 to 15% 03/2024.
Cardiac catheterization this year with nonobstructive coronary disease. He also has hyperthyroidism on methimazole. He has history of alcohol and tobacco abuse and issues with medication and follow-up noncompliance. He presented back to [facility] yesterday due to right lower extremity pain which woke him from sleep. He was found to have a right iliac occlusion and underwent a thrombectomy 10/29/2024 by vascular. There had been discussion as an outpatient about initiating
amiodarone, however was then lost to follow-up. He was in rapid atrial fibrillation on arrival to ER. Currently intubated and sedated.
PMH:
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
Persistent atrial fibrillation, first discovered July 2023
Chronic OAC with eliquis
Chronic HFrEF
Tachycardia mediated cardiomyopathy
Hyperthyroidism
Noncompliance
Depression
History of ETOH and tobacco abuse
Obesity
Past Medical History
Past Medical History: Other (See HPI)
Past Surgical History: Other (Left common femoral embolectomy 2022)
Social History
Tobacco: Smoker
Drug: None
Personal: Single
Living: Alone
Family History
Family History: Reviewed & Not Pertinent
Allergies / Home Medications
Allergy/AdvReac Type Severity Reaction Status Date / Time
No Known Allergies Allergy Verified 10/29/24 14:44
�Medication �Instructions �Recorded �Confirmed �Type
apixaban 5 mg tablet (Eliquis) 5 mg PO BID Blood clot 12/30/23 10/29/24 Rx
prevention/tx #60 tabs
empagliflozin 10 mg tablet 10 mg PO DAILY Heart Failure #0 12/30/23 10/29/24 Rx
(Jardiance) tabs
furosemide 40 mg tablet (Lasix) 40 mg PO BID Fluid 12/30/23 10/29/24 Rx
Retention/Swelling #0 tabs
methimazole 10 mg tablet 10 mg PO DAILY Thyroid 04/11/24 10/29/24 History
metoprolol succinate 50 mg 50 mg PO BID Heart Failure 04/11/24 10/29/24 History
tablet,extended release 24 hr
sacubitril 24 mg-valsartan 26 mg 1 tab PO BID 04/11/24 10/29/24 History
tablet (Entresto)
potassium chloride 20 mEq 20 meq PO DAILY 05/22/24 10/29/24 History
tablet,extended release
spironolactone 25 mg tablet 25 mg PO DAILY #90 tabs 05/22/24 10/29/24 Rx
Review of Systems
-
Unable to obtain full review of systems at this time due to: Patient Intubation
Physical Exam
Vital Signs
Temp Pulse Resp BP Pulse Ox
101.3 F H 102 19 110/87 97
10/30/24 07:00 10/30/24 07:30 10/30/24 07:30 10/30/24 07:00 10/30/24 07:47
Lab Results
10/30/24 06:05
10/30/24 06:05
Fkf-Y-Ysizrzvalzq Pept 5640 pg/ml 10/29/24 16:53
Physical Exam
General: No Apparent Distress and Intubated
HEENT: Normocephalic, Anicteric and Moist Mucous Membranes
Respiratory: Clear and Non Labored Respirations
Cardiac: S1/S2 and Irregular Rhythm
GI: Soft, Non Tender, Non Distended and Normal Bowel Sounds
Musculoskeletal: No Clubbing, No Cyanosis and Edema (1+ of RLE)
Skin: Other (R foot cold to touch. R groin with dressing to drain in place)
Neuro: Sedated
Impression / Plan
-
Primary Horse Doctor: Dr. Onofre
Assessment:
Presentation with RLE pain
Acute limb ischemia with R iliac artery occlusion s/p thromboembolectomy of right iliac system, right superficial femoral artery, popliteal artery, profunda femoral artery 10/29/2024
Atrial fibrillation with RVR
Hypotension requiring pressors
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
Persistent atrial fibrillation, first discovered July 2023
Chronic OAC with eliquis
Chronic HFrEF
Tachycardia mediated cardiomyopathy
Hyperthyroidism
Noncompliance
Depression
History of ETOH and tobacco abuse
Obesity
ECHO 04/04/2024: EF 10 to 15%, severe global hypokinesis, mild MR, trace TR, PAP 30 to 33 mmHg
Cardiac catheterization 05/22/2024: Nonobstructive coronary disease with normal to mildly elevated right and left-sided filling pressures with normal cardiac output
Plan:
-Patient with history of cardioembolic occlusion to left common femoral artery status post thromboembolectomy 06/2023, now presents back to [facility] with right lower extremity pain and found to have acute limb ischemia with right iliac
artery occlusion status post thrombectomy on 10/29/2024. Currently remains intubated and sedated
-Extubate as able
-Continue postoperative care per vascular. Drain in place
-Currently on nevin at 20, wean as able
-Was in atrial fibrillation with rapid ventricular response on arrival by review of EKG. Heart rates presently improved. Continue IV Lopressor 5mg every 6 hours. Continue IV heparin.
-Was on Eliquis as an outpatient. There is concern for medication compliance as etiology of event. Will need to confirm with patient once extubated
-Would consider for antiarrhythmic drug therapy
-Last echo from 03/2024 with EF 10 to 15%. Will repeat today.
-Resume outpatient Toprol, Entresto, spironolactone, Jardiance, Lasix as able. Chest x-ray without evidence of acute heart failure by my review
-If EF remains reduced, would consider candidacy for ICD
-Check TSH. On methimazole as an outpatient for hyperthyroidism
-Will need to encourage compliance with appointments, medications as well as alcohol and tobacco cessation moving forward
-Discussed with nursing
Data Reviewed
-
EKG: Tracing Personally Visualized and interpreted
Radiology: Report Reviewed by me
Medical Tests (Nuc Med, Echo etc): Report Reviewed by me
Labs: Labs Reviewed by me
Old Records: Reviewed
--- NOTE | 2024-10-30 08:17 | W.PN.VS ---
Today's Communication / Plan
-
Seen and assessed with Dr. Wilkerson
Assessment/Plan
-
POD 0.5 Thromboembolectomy of right iliac system from right femoral artery exposure. Thromboembolectomy of right superficial femoral artery, popliteal artery and profunda femoral artery from right femoral artery exposure
Plan:
-Wean to extubate per the electrical estimator
-Continue heparin drip
-Continue neurovascular checks
-Echo today per cardiology
-UA, blood cultures for rising temps
Subjective Data
-
Date of Service: October 30, 2024
Patient seen at bedside this a.m. with Dr. Wilkerson. Intubated and sedated. Heparin, zaki-, Precedex, fentanyl all running. Patient started with low-grade temperatures this morning.
Objective Data
-
Vital Signs
Temp Pulse Resp BP Pulse Ox
101.7 F H 96 21 110/87 98
10/30/24 08:00 10/30/24 08:00 10/30/24 08:00 10/30/24 07:00 10/30/24 08:05
Intake and Output
10/29/24 10/30/24 10/31/24
06:59 06:59 06:59
Intake Total 763.6 / 832.4 132.6 / 132.6
Output Total 825 / 855 80 / 80
Balance -61.4 / -22.6 52.6 / 52.6
Intake:
Oral fluids 0 / 0
IV fluids (Total) 653.6 / 722.4 132.6 / 132.6
Cardizem 21.3 / 21.3
Fentanyl 17.5 / 22.5 10
Heparin 100.9 / 118.9 37 / 37
KVO 120 / 130 20 / 20
Zaki 227.3 / 239.3
Precedex 166.6 / 190.4 47.6 / 47.6
Vaso 0 / 0
IV piggybacks 110 / 110
Output:
Urine, Wilkerson 825 / 855 80 / 80
Lab Results
10/30/24 06:05
10/30/24 06:05
Calcium 9.2 mg/dl (8.4-10.2) 10/30/24 06:05
Magnesium 2.3 mg/dl (1.6-2.3) 10/29/24 23:27
Total Bilirubin 3.9 mg/dl (0.2-1.3) H 10/29/24 14:56
AST 19 U/L (17-59) 10/29/24 14:56
ALT 18 U/L (0-50) 10/29/24 14:56
Alkaline Phosphatase 122 U/L (38-126) 10/29/24 14:56
Total Protein 6.1 g/dl (6.3-8.2) L 10/29/24 14:56
Albumin 3.5 g/dl (3.5-5.0) 10/29/24 14:56
Physical Exam
-
Intubated and sedated
No tachycardia
Abdomen soft
Groin site clean, dry, intact, soft, flat
Weak PT Doppler signal
--- NOTE | 2024-10-30 08:18 | W.PN.HOSP.TC ---
Today's Communication/Plan
-
see plan
Assessment / Plan
Assessment / Plan
Mr. Buster Velazquez is a 59 yo man with hx paroxysmal afib, HFrEF, prior LLE embolism/ischemia presents to the ER with new onset RLE pain found ot have complete occlusion right iliac artery s/p emergent OR for re-vascularization. He was also noted to
be in rapid afib.
10/29/24
Procedure:
1. Thromboembolectomy of right iliac system from right femoral artery exposure
2. Thromboembolectomy of right superficial femoral artery, popliteal artery and profunda femoral artery from right femoral artery exposure
Limb-Threatening Ischemia of the RLE
Thromboembolic Occlusion of the Right Iliac Artery
- Admit to ICU s/p R iliac thromboembolectomy by Vascular Surgery evening 10/29
-Post-op Vascular protocols
- Continuous anticoagulation with IV heparin and adjust based on PTT.
Appreciate Vascular - follow up further recommendations
Paroxysmal Atrial Fibrillation with Rapid Ventricular Response
- Rates into the 180s at times on presentation, asymptomatic
- IV diltiazem off; HR controlled with IV precedex and standing meotp
- IV heparin as noted above.
- Cardiology eval
Chronic HFrEF
- Patient does not appear grossly volume overloaded at present.
- GDMT on hold acutely due to hypotension.
- Follow I/Os, daily weights, etc.
- Dose IV Lasix as needed for now.
- BNP - while elevated at 5640 - is significantly lower than prior at 23k.
Hyperthyroidism
- Free T4 is elevated at present indicating poor control.
- Continue methimazole via OGT / PO.
- IV beta blockers acutely as noted above for heart rate / symptom control.
VDRF
- Patient is currently sedated / on vent.
- Maintain vent support overnight.
- Metal Box Maker evaluation, hopefully SBT / extubation in the AM.
Morbid Obesity due to excess calories
- Affects all aspects of care.
- Encourage healthy diet and increased activity with goal of weight loss.
Medical Non-Compliance
- Patient with documented history of poor compliance.
DVT Prophylaxis: On IV Heparin.
Code Status: Full
Anticipated Discharge: > 48 hours
Subjective/Interval History
-
Date of Service: October 30, 2024
intubated, sedated
Objective Data
-
Labs:
Laboratory Results
10/29/24 10/29/24 10/30/24
22:16 23:27 01:55
WBC
Hgb
Hct
Plt Count
APTT 199.8 H*
HCO3 20.8 L Cancelled
Sodium 139
Potassium 5.5 H D
Chloride 106
Carbon Dioxide 21 L
BUN 16
Creatinine 0.9
Glucose 110 H
Calcium 8.3 L
10/30/24 10/30/24
02:05 06:05
WBC 10.2
Hgb 16.2
Hct 50.6
Plt Count 261
APTT 58.3 H
HCO3 19.6 L
Sodium 141
Potassium 5.1
Chloride 110 H
Carbon Dioxide 18 L
BUN 22 H
Creatinine 1.2
Glucose 114 H
Calcium 9.2
Vital Signs:
Vital Signs
Temp Pulse Resp BP Pulse Ox
101.7 F H 96 21 110/87 98
10/30/24 08:00 10/30/24 08:00 10/30/24 08:00 10/30/24 07:00 10/30/24 08:05
I&O
10/29/24 10/30/24 10/31/24
06:59 06:59 06:59
Intake Total 763.6 / 832.4 132.6 / 132.6
Output Total 825 / 855 80 / 80
Balance -61.4 / -22.6 52.6 / 52.6
Review of Systems
-
Unable to obtain full review of systems at this time due to: Patient Intubation
Physical Exam
-
General: Intubated and Obese
HEENT: PERRLA
Respiratory: Clear to Auscultation
Cardiac: Regular Rhythm and S1/S2
GI: Soft and Nontender
Musculoskeletal: Other (right groin without hematoma)
Skin: Warm and Dry; Negative Rash
Neuro: Sedated
Psych: Calm
Data Reviewed
-
Diagnostic Radiology: Report Reviewed by me
Labs: Labs Reviewed by me
--- NOTE | 2024-10-30 08:28 | CON.INTV ---
Consultation
Consultation Request
Date/Time Consultation Requested: 10/29/20242302
Date/Time Consultation Performed: 10/30/2024825
Requesting Provider: JEANINE Silverman
Performing Provider: Ishmael Christie MD
Reason for Consultation: Thrombectomy of right iliac system/thromboembolectomy of right SFA
Medical History
-
Chief Complaint: RLE swelling + pain
History of Present Illness:
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
right lower extremity pain and swelling. Right lower extremity duplex US showed no evidence of DVT. CTA abdominal aorta with runoff showed an occluded right common iliac artery with occluded internal + external iliac arteries with reconstitution
of the right femoral artery. Also an occluded left internal iliac artery. Initially in ER he was afebrile to 98.1 �F, pulse rate 139, breathing at 20 breaths/min, BP 119/75 and saturating 98% on room air. Initial labs showed leukocytosis to 12.7,
T. bili elevated at 3.9, and proBNP elevated at 5640. Vascular surgery was consulted. Of note, patient was in A-fib with RVR in the ER. There were no Doppler signals present in the right foot. Patient urgently brought to the OR where he
underwent thromboembolectomy of the right iliac system from a right femoral artery exposure, as well as thromboembolectomy of the right superficial femoral artery, popliteal artery and profunda femoral artery. There were no complications with EBL
of 25 cc. He was transferred to the ICU postoperatively and historic interpreter services consulted for additional management/recommendations
This morning I saw and evaluated the patient. Right sided DP pulse are absent via Doppler, although r-sided PT pulse is positive (via Doppler). Not on any pressors. On precedex gtt at 0.7mcg/kg/hr. Fentanyl gtt is at 100mcg/hr. Currently
intubated on AC/CMV at 16/550/5/40% with PIP 19 cmH2O, VTe 533mL and breathing at 18 breaths/minute. Currently, heart rate 93, BP via arterial catheter: 96/61, BP via NIBP: 108/74 and saturating 95%.
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
PSHx: Appendectomy, left lower extremity arterial thrombosis s/p thrombectomy (06/2023), cardioversion
Past Medical History
Past Medical History: Other (Above as per HPI)
Past Surgical History: Other (Above as per HPI)
Social History
Tobacco: Former Smoker
Alcohol: Occasional (Socially)
Drug: None
Family History
Family History: CAD (Mother: History of coronary stents)
Allergies / Home Medications
Allergies
Allergy/AdvReac Type Severity Reaction Status Date / Time
No Known Allergies Allergy Verified 10/29/24 14:44
Home Medications
�Medication �Instructions �Recorded �Confirmed �Last Taken �Type
apixaban 5 mg tablet (Eliquis) 5 mg PO BID Blood clot 12/30/23 10/29/24 10/29/24 Rx
prevention/tx #60 tabs
empagliflozin 10 mg tablet 10 mg PO DAILY Heart Failure #0 12/30/23 10/29/24 10/29/24 Rx
(Jardiance) tabs
furosemide 40 mg tablet (Lasix) 40 mg PO BID Fluid 12/30/23 10/29/24 10/29/24 Rx
Retention/Swelling #0 tabs
methimazole 10 mg tablet 10 mg PO DAILY Thyroid 04/11/24 10/29/24 10/29/24 History
metoprolol succinate 50 mg 50 mg PO BID Heart Failure 04/11/24 10/29/24 10/29/24 History
tablet,extended release 24 hr
sacubitril 24 mg-valsartan 26 mg 1 tab PO BID 04/11/24 10/29/24 10/29/24 History
tablet (Entresto)
potassium chloride 20 mEq 20 meq PO DAILY 05/22/24 10/29/24 10/29/24 History
tablet,extended release
spironolactone 25 mg tablet 25 mg PO DAILY #90 tabs 05/22/24 10/29/24 10/29/24 Rx
Review of Systems
-
Unable to Obtain full review of systems at this time due to: Patient Intubation
Vitals / Labs / Diagnostic Testing
Vital Signs
Temp Pulse Resp BP Pulse Ox
101.7 F H 96 21 101/68 97
10/30/24 08:00 10/30/24 08:20 10/30/24 08:20 10/30/24 08:00 10/30/24 08:20
Lab Data
10/30/24 06:05
10/30/24 06:05
Laboratory Results
10/29/24 10/29/24 10/30/24
22:16 23:27 01:55
APTT 199.8 H*
pH 7.12 L* Cancelled
pCO2 64 H Cancelled
pO2 111 H Cancelled
HCO3 20.8 L Cancelled
O2 Delivery Level 100% Cancelled
10/30/24 10/30/24
02:05 06:05
APTT 58.3 H
pH 7.31 L
pCO2 39
pO2 135 H
HCO3 19.6 L
O2 Delivery Level 80%
Diagnostic Testing:
Physical Exam
-
HEENT: Normocephalic, Anicteric and Other (ETT in place)
Cardiovascular: S1/S2 and Peripheral Edema (negative)
Respiratory: Wheeze (negative), Rales (negative), Rhonchi (negative), Non-Labored Respirations and Other (Mechanical breath sounds heard bilaterally)
GI: Soft, Non Distended, Non Tender and Normal Bowel Sounds
Neurology: Tremors (negative) and Other (Sedated)
Skin: Warm and Dry
General: Respiratory Distress (negative), Comfortable, Fever (negative) and Chills (negative)
Assessment
-
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
presents with right lower extremity pain and swelling. Right lower extremity duplex US showed no evidence of DVT. CTA abdominal aorta with runoff showed an occluded right common iliac artery with occluded internal + external iliac arteries with
reconstitution of the right femoral artery. Also an occluded left internal iliac artery. Initially in ER he was afebrile to 98.1 �F, pulse rate 139, breathing at 20 breaths/min, BP 119/75 and saturating 98% on room air. Initial labs showed
leukocytosis to 12.7, T. bili elevated at 3.9, and proBNP elevated at 5640. Vascular surgery was consulted. Of note, patient was in A-fib with RVR in the ER. There were no Doppler signals present in the right foot. Patient urgently brought to
the OR on 10/30/2024 where he underwent thromboembolectomy of the right iliac system from a right femoral artery exposure, as well as thromboembolectomy of the right superficial femoral artery, popliteal artery and profunda femoral artery. There
were no complications with EBL of 25 cc. He was transferred to the ICU postoperatively and historic interpreter services consulted for additional management/recommendations
Chronic conditions LOGGING ASSISTANT: Paroxysmal a-fib on Eliquis, hyperthyroidism, chronic HFrEF, left lower extremity arterial occlusion due to thromboembolism (06/2023)
Impression:
#Acute limb ischemia of right lower extremity with thromboembolic occlusion of the right iliac system s/p thromboembolectomy of the right iliac system + thromboembolectomy of the right SFA, popliteal artery and profundofemoral artery (POD #1)
#Acute respiratory failure with hypoxia + hypercapnia on mechanical ventilation
#Metabolic acidosis with increased anion gap due to lactic acidosis
#Lactic acidosis due to hypoperfusion of the right lower extremity
#Hypocalcemia
#Hyperbilirubinemia
#Elevated proBNP (5640 on 10/29/2024 although he was 23,100 on 12/25/2023 and 5230 on 07/03/2023) with small bilateral pleural effusions seen on current imaging with CTA chest on 10/29/2024
#Primary hyperthyroidism with undetectable TSH and elevated free T4 at 2.33
#Former tobacco smoker with centrilobular emphysema seen on CTA chest (10/29/2024 - at risk for COPD, although no PFTs on file
#Chronic HFrEF with LVEF 10-15% with severe global hypokinesis via TTE from 04/04/2024
Plan:
Postoperative surgical intensive care unit monitoring
Remains intubated --> wean down sedation as tolerated and plan for SBT
Titrate FiO2 + PEEP to maintain SpO2 >90-94%
Maintain plateau pressure <30
prn nebulized bronchodilators � not currently bronchospastic
Incentive spirometry encouraged 10x per hour for at least 4 hrs a day
Aspiration precautions
Pain control
Patient had persistent fevers since this morning --> could be related to his ischemia of his lower extremity
Continue to monitor for fever and treat with Tylenol; trend WBC
Follow-up blood cultures (collected today - 10/30/2024)
Empirically start Unasyn (there was concern for aspiration during weaning trial this AM)
Patient has small bilateral pleural effusions seen on imaging (CTA chest from 10/29/2024) with mild pulmonary vascular congestion seen predominantly in the bases
- Patient does take Lasix 40 mg BID at home; will diurese today with IV Lasix and then resume home dosing
Once extubated then resume home medications including his methimazole, Entresto, metoprolol and Eliquis, assuming that he is awake, alert and not at risk of aspiration
- Defer GDMT to cardiology (on board and recs appreciated)
Trend serum bicarbonate level as well as lactic acid
- Goal serum bicarbonate level 22�26
- Trend lactate until <2 mmol/L
Neuro and vascular checks per protocol
Maintain MAP>65
Replete electrolytes with K>4, Mg>2
Maintain euglycemia with goal BG 140-180
Vascular surgery following-correspondence and operative notes reviewed
Transfuse blood products as needed to keep Hb>7g/dL, and plt>50k (given post-operative status)
DVT prophylaxis - on heparin gtt
Early nutrition - once extubated, check CONTINUOUS IMPROVEMENT LEAD before starting PO diet
Early mobilization once extubated
Critical care statement: A total of 44 minutes of critical care time was provided for this patient today. This includes management of unstable vital signs, evaluation of the patient at bedside, reviewing the patient's pertinent medical records
including radiographs, microbiology, laboratory evaluations, and discussion with primary team, consultants, pharmacy, nutrition, physical therapy, case management, charge nurse, critical care nursing, and respiratory therapy.
Data:
CTA abdominal aorta with runoff 10/29/2024:
Occluded right common iliac artery. Occluded internal and external iliac arteries. Reconstitution of the right femoral artery. Three-vessel runoff in the calf, though at the level of the ankle, the anterior tibial artery and peroneal artery appear
attenuated with lack of intraluminal contrast identified. The posterior tibial artery appears patent distal to the ankle, though somewhat attenuated compared to the contralateral side.
Occluded left internal iliac artery.
Hepatomegaly. Fatty infiltration. 10 mm low-attenuation right adrenal nodule, likely adenoma. Small left renal cyst. Trace ascites.
Minor diverticulosis. No evidence of acute diverticulitis. No bowel obstruction.
Mild retroperitoneal soft tissue stranding along the course of the common and external iliac vessels.
CTA chest 10/29/2024:
Limited evaluation the lower lobes secondary to respiratory motion degradation. As far as visualized, no evidence of pulmonary embolism with confidence to the segmental pulmonary arteries in the lower lobes. No evidence of upper lobe pulmonary
embolism with confidence to the subsegmental levels.
Minor bilateral pleural effusions. Atelectasis. Mild emphysematous lung changes. No pneumonia.
Small lymph nodes, nonspecific, likely reactive.
Transthoracic echocardiogram 04/04/2024:
Left ventricle is severely dilated with severely reduced left ventricular
systolic function; left ventricular ejection fraction is 10-15% by visual
assessment. Severe global hypokinesis. Normal left ventricular wall thickness.
Diastolic function indeterminate due to atrial fibrillation.
Normal right ventricular size and function.
Mitral valve opens normally with mild mitral regurgitation.
The aortic valve is structurally and functionally normal.
Tricuspid valve opens normally with trace tricuspid regurgitation. Estimated
pulmonary artery pressure of 30-33 mmHg, assuming a right atrial pressure of 3
mmHg.
Compared to prior study 12/26/2023 No significant change noted.
--- NOTE | 2024-10-30 09:17 | W.IMMPOSTOP ---
Surgical Immed Post Op Note
-
Primary Surgeon: Dr. Elvis Wilkerson III, MD
Assisting Surgeon: Rupert Martinez MD, PhD (PGY-2)
Pre-op Diagnosis: Acute limb ischemia of the right lower extremity
Post-op Diagnosis: Acute limb ischemia of the right lower extremity
Procedure Performed: Femoral artery cut down, thrombectomy of right iliac system proximally and SFA/profunda distally
Anesthesia Type: General
Specimen / Cultures: None
Estimated Blood Loss: Minimal
Complications: None
Operative Findings: The patient was brought to the OR and placed in the supine position. After induction of anesthesia, the patient was prepped and draped in usual sterile fashion. Ultrasound guidance was used to tevin the course of the right SOFT METALS ENGRAVER HAND
and bifurcation, this was marked at the skin. We began by performing a cut down over the right femoral artery. Electrocautery and sharp dissection were used to expose the vessel. Proximal and distal control was obtained. A transverse incision was
made on the right SOFT METALS ENGRAVER HAND. A igssell balloon catheter was passed proximally through the iliofemoral system for multiple rounds, removing several fragments of thrombus. The arteriotomy site was closed. A separate new arteriotomy was made more distally on
the right SOFT METALS ENGRAVER HAND. We used this new site to pass a gissell balloon catheter distally into the SFA and profunda. After multiple passes, several fragments of thrombus were removed from the SFA/profunda. After no additional thrombus could be removed, the
arteriotomy was closed with two interrupted sutures. All vessel loops were removed and there was a palpable pulse in the right SOFT METALS ENGRAVER HAND, SFA, and peroneal arteries. The wound bed was irrigated and closed with two layers of suture 2-0, 3-0, and bry
and nylon interrupted sutures at the skin. A JERRI dressing was applied to the wound. At the conclusion of the case, the patient had a dopplerable PT but no DP. The patient was transported to the ICU in stable condition.
[2024-10-30 09:30] LABS: Urine Albumin Trace (Neg - Trace); Urine Bilirubin 1+ (Negative); Urine Character Clear (Clear); Urine Color Yellow; Urine Glucose Negative (Negative); Urine Ketone Trace (Negative); Urine Leukocyte Negative (Negative); Urine Nitrite Negative (Negative); Urine Occult Blood 2+ (Negative); Urine Urobilinogen 3+ (Neg - 1+)
[2024-10-30] MEDS: VERSED 4 MG IV (09:36)
[2024-10-30] MEDS: TAPAZOLE PO (10:01)
[2024-10-30 10:28] LABS: TSH Reflex To Free T4 < 0.02 uIU/ml (0.47-4.68)
[2024-10-30 10:34] LABS: Urine Hyaline Cast >15 /LPF (0-2)
[2024-10-30 10:35] LABS: Urine White Cell 0-2 /HPF (0-5)
[2024-10-30 10:36] LABS: Urine Squamous Cell 0-2 /LPF (Few)
[2024-10-30] MEDS: OFIRMEV 100 IV (10:40)
--- NOTE | 2024-10-30 11:40 | PTCARENOTE ---
Pt move to 3366 from CVICU for bed management. Assessment as noted. Upon arrival pt twisting and thrashing. Versed and fentanyl bolus given. IV in REJ not functioning and removed. all IVF moved to PIV. Fentanyl off at 1040 and precedex
decreased. SAT started @ 1100.
[2024-10-30 12:12] LABS: B.E. -5.3 mmol/L; HCO3 19.2 mmol/L (21-28); O2 Saturation % 98.4 % (94-98); PCO2 34 mmHg (35-48); PO2 92 mmHg (83-108); pH 7.36 (7.35-7.45)
[2024-10-30 12:13] LABS: O2 Therapy 40%
--- NOTE | 2024-10-30 12:56 | PTCARENOTE ---
Pt extubated to 6L NC after extubation. SpO2 88-90%. RR22-26. Very lethargic but opens eyes to touch. Restraints removed. IV removed by pt thrashing during extubation. IV restarted in L hand. Fent, precedex, neosynephrine off.
[2024-10-30 13:30] LABS: APTT 56.9 Sec (23.4-35.0)
--- NOTE | 2024-10-30 14:20 | CARDSERVLU ---
Echocardiogram with Lumason completed after protocol screening completed. Allergies verified.
Patent IV site: __L hand___
IV site flushed with 0.9% NaCl pre and post administration.
Diluted bolus method utilized to enhance visualization of ventricular krishnan.
Total volume given: __2.5__ mL
Patient tolerated all procedures well without complications.
[2024-10-30] MEDS: HEPARIN 25000 UNITS/250 ML IV (14:37)
[2024-10-30] MEDS: LASIX 40 MG IV ×2 (14:40→20:27)
[2024-10-30] MEDS: UNASYN IV ×2 (16:08→22:35)
[2024-10-30 16:29] LABS: Lactic Acid 1.7 mmol/L (0.7-2.0)
--- NOTE | 2024-10-30 17:41 | PTCARENOTE ---
Speech therapist to bedside. Passed swallow eval with Purreed, thin liq, and meds whole in puree recommended-see note. A&OX3 but drifts off to sleep with no interaction. States no pain.
--- NOTE | 2024-10-30 17:59 | PTOTSP ---
ST Acute Care Evaluation
Pt currently presents with clinical signs of mild to moderate oropharyngeal and esophageal dysphagia characterized by disorganized removal of solids from utensils, prolonged sold bolus manipulation and propulsion posteriorly in oral cavity,
increased fatigue with eating/drinking, piecemeal deglutition, occasional overt s/s of penetration/aspiration with thin liquid consistencies, and intermittent eructation.
Recommendations:
- Initiate PO diet of PUREED SOLIDS and THIN LIQUIDS with meds whole in puree.
- Aspiration & reflux precautions: HOB fully upright for all PO intake and for at least 60 minutes after PO intake; CLOSE supervision for all PO intake; small bites/sips; encourage pt to eat/drink slowly; alternate bites/sips; d/c PO intake if pt is
not sufficiently awake/alert or if pt is in respiratory distress.
- PREPARING BOX TENDER to f/u re: diet tolerance and to determine if pt is a candidate for further diet upgrades.
[2024-10-30 19:21] LABS: Glucose - Point of Care 157 mg/dl (70-99)
[2024-10-30] MEDS: TAPAZOLE 10 MG PO (20:00)
--- NOTE | 2024-10-30 20:00 | PTCARENOTE ---
Received patient AAOx3, following commands, DRAKE, denies pain. Drowsy, PERRLA 3. Afib 80s-90s, PVCs. +1 b/l lower extremity edema. PT pulse present on doppler b/l, DP pulses absent on doppler b/l. Normothermic, left radial a-line zeroed, flushed, and
leveled. On 6 liters nasal cannula, saturating 95%. Lung sounds diminished in the bases. Abdomen soft, round, obese, hypoactive bowel sounds. Wilkerson in place draining yellow urine. Right JERRI dressing CDI. PIVs patent, WNL. Heparin gtt ongoing. Call
marshall within reach.
[2024-10-30] MEDS: NEO-SYNEPHRINE 250 IV (20:27)
[2024-10-30 20:34] LABS: APTT 114.5 Sec (23.4-35.0)
[2024-10-30] MEDS: LOPRESSOR IV (23:47)
[2024-10-31 00:03] LABS: Glucose - Point of Care 161 mg/dl (70-99)
[2024-10-31] MEDS: HEPARIN 25000 UNITS/250 ML IV (00:06)
--- NOTE | 2024-10-31 00:09 | PTCARENOTE ---
Patient on nevin to maintain MAP>65. Heparin gtt ongoing, next PTT 0245. Otherwise patient assessment remains unchanged from previous, call marshall within reach.
[2024-10-31 01:14] VITALS: BP 101/56
[2024-10-31 02:45] LABS: Venous Blood Gas B.E. -0.3 mmol/L (-4 to +4); Venous Blood Gas HCO3 23.1 mmol/L (22-27); Venous Blood Gas pCO2 34 mmHg (35-48); Venous Blood Gas pH 7.44 (7.32-7.43); Venous Blood Gas pO2 199 mmHg (30-50)
[2024-10-31 02:47] LABS: Venous Blood Gas O2 Therapy 6L/min
[2024-10-31 02:50] LABS: Hematocrit 48.9 % (39.0-52.0); Hemoglobin 15.9 g/dL (13.0-18.0); Mean Corp Hgb Conc. 32.5 g/dL (33.0-37.0); Mean Corpuscular Hgb 31.4 pg (27.0-31.0); Mean Corpuscular Volume 96.6 fL (80.0-94.0); Mean Platelet Volume 9.6 fL (7.4-10.4); Platelet Count 266 10^3/uL (130-400); Red Blood Cell Count 5.06 10^6/uL (4.70-6.10); Red Cell Dist. Width 15.5 % (11.5-14.5); White Blood Cell Count 14.7 10^3/uL (4.8-10.8)
[2024-10-31 03:02] LABS: APTT 80.4 Sec (23.4-35.0)
[2024-10-31 03:12] LABS: Blood Urea Nitrogen 42 mg/dl (9-20); Calcium 8.1 mg/dl (8.4-10.2); Carbon Dioxide 22 mmol/L (22-30); Chloride 108 mmol/L (98-107); Estimated Creatinine Clearance 93 ml/min; Glucose 130 mg/dl (70-99); Magnesium 2.3 mg/dl (1.6-2.3); Phosphorus 4.1 mg/dl (2.5-4.5); Potassium 4.2 mmol/L (3.5-5.1); Sodium 140 mmol/L (135-145); eGFR > 60.00
[2024-10-31 03:20] LABS: NT-proBNP 5480 pg/ml
[2024-10-31] MEDS: UNASYN IV ×4 (03:51→21:25)
[2024-10-31 04:59] VITALS: BMI 40.0
--- NOTE | 2024-10-31 04:59 | PTCARENOTE ---
Patient had short run of vtach, CERTIFIED CONTROL SYSTEMS TECHNICIAN aware, labs sent. CHG bath done, sheets changed. Otherwise patient assessment unchanged from previous, call marshall within reach.
[2024-10-31] MEDS: LOPRESSOR IV (05:15)
[2024-10-31 06:21] LABS: Glucose - Point of Care 121 mg/dl (70-99)
--- NOTE | 2024-10-31 07:37 | W.PN.HOSP.TC ---
Today's Communication/Plan
-
Wean pressors as tolerated
Heart rate control
Continue heparin drip
Restart Jardiance
Assessment / Plan
Assessment / Plan
Mr. Buster Velazquez is a 59 yo man with hx paroxysmal afib, HFrEF, prior LLE embolism/ischemia presents to the ER with new onset RLE pain found ot have complete occlusion right iliac artery s/p emergent OR for re-vascularization. He was also noted to
be in rapid afib.
10/29/24
Procedure:
1. Thromboembolectomy of right iliac system from right femoral artery exposure
2. Thromboembolectomy of right superficial femoral artery, popliteal artery and profunda femoral artery from right femoral artery exposure
Chest x-ray reviewed by me left lower lobe opacity
Awake and alert
Cardiovascular system S1-S2 appreciated
Chest rales at left base
Abdomen soft and nontender
Bilateral feet are warm, pulses by Doppler
# Fever treat as aspiration pneumonia left lower lobe opacity
Agree with Unasyn
# Shock unclear reason possibly cardiogenic-wean pressors as tolerated
#Limb-Threatening Ischemia of the RLE
-Thromboembolic Occlusion of the Right Iliac Artery
-s/p R Femoral artery cut down, thrombectomy of right iliac system proximally and SFA/profunda distally - 10/29
-PVD with history of thrombectomy June 2023
-Post-op Vascular protocols
-Continuous anticoagulation with IV heparin and adjust based on PTT.
#VDRF for acute hypoxic respiratory failure and hypercapnic respiratory failure
- Patient is currently extubated
# Metabolic acidosis-lactic acidosis secondary to hypoperfusion-improved
# Paroxysmal Atrial Fibrillation with Rapid Ventricular Response
-History of cardioversion in the past
- Rates into the 180s at times on presentation
- IV diltiazem off; standing IV metoprolol
- IV heparin as noted above.
- Cardiology following.
# Chronic HFrEF
-Echo 10/30/2024-LV severely dilated. Mild concentric LVH. Severely reduced LV systolic function. Global hypokinesis. EF 5 to 10%. Stage II diastolic dysfunction. Normal RV size and function. Mild MR. Moderate to severe TR. Pulmonary artery
pressure 30 to 35 mmHg. Small pericardial effusion.
- Patient does not appear grossly volume overloaded at present.
- GDMT . Restart SGLT2 inhibitors. Continue beta-blockers hypotension prohibits Entresto or Aldactone at present
- Follow I/Os, daily weights
- BNP - while elevated at 5640 - is significantly lower than prior at 23k.
-Patient has not followed up for ICD evaluation
# Hypocalcemia-replace as needed
# Hyperthyroidism
- Free T4 is elevated at present indicating poor control.
- Continue methimazole via OGT / PO.
- IV beta blockers acutely as noted above for heart rate / symptom control.
# Morbid Obesity due to excess calories
- Affects all aspects of care.
- Encourage healthy diet and increased activity with goal of weight loss.
# Medical Non-Compliance- Patient with documented history of poor compliance.
# History of alcohol abuse in the past
# Prediabetes-hemoglobin A1c 6.0-was 6.3 earlier
# Microscopic hematuria
# Fatty infiltration of the liver according to CAT scan
# Diverticulosis
# Ex Smoker
# DVT Prophylaxis: On IV Heparin.
# Code Status: Full
Total Critical Care Time 32 minutes. I was immediately available to the patient and staff. I personally examined, reviewed labs, diagnostic images/reports, interpretations, treatment plans, discussed patient care with other providers , entered
orders as appropriate and documented the medical record.
Anticipated Discharge: 24 - 48 hours
Subjective/Interval History
-
Date of Service: October 31, 2024
Objective Data
-
Labs:
Laboratory Results
10/30/24 10/31/24 10/31/24
20:16 02:40 09:30
WBC 14.7 H
Hgb 15.9
Hct 48.9
Plt Count 266
APTT 114.5 H 80.4 H Pending
Sodium 140
Potassium 4.2
Chloride 108 H
Carbon Dioxide 22
BUN 42 H
Creatinine 1.2
Glucose 130 H
Calcium 8.1 L
Vital Signs:
Vital Signs
Temp Pulse Resp BP Pulse Ox
99 F 103 32 101/56 97
10/31/24 03:50 10/31/24 06:00 10/31/24 06:00 10/31/24 01:14 10/31/24 06:00
I&O
10/30/24 10/31/24 11/01/24
06:59 06:59 06:59
Intake Total 763.6 / 832.4 1094.4 / 1094.4
Output Total 825 / 855 3237 / 3237
Balance -61.4 / -22.6 -2142.6 / -2142.6
[2024-10-31 08:00] VITALS: BP 115/80
--- NOTE | 2024-10-31 08:21 | W.PN.INTV ---
Today's Communication / Plan
Recommendations
Continue with phenylephrine and maintain MAP 70�100
Hold antihypertensives but start low-dose beta-renee to help his A-fib with RVR
Goal HR <110
Replete K>4, Mg>2
Pain control
Neurovascular checks of lower extremities (particularly his right lower extremity)
Maintain SpO2 >90- 94% with supplemental oxygen
Encourage incentive spirometer use
Continue with ICU level of care
Assessment
-
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
presents with right lower extremity pain and swelling. Right lower extremity duplex US showed no evidence of DVT. CTA abdominal aorta with runoff showed an occluded right common iliac artery with occluded internal + external iliac arteries with
reconstitution of the right femoral artery. Also an occluded left internal iliac artery. Initially in ER he was afebrile to 98.1 �F, pulse rate 139, breathing at 20 breaths/min, BP 119/75 and saturating 98% on room air. Initial labs showed
leukocytosis to 12.7, T. bili elevated at 3.9, and proBNP elevated at 5640. Vascular surgery was consulted. Of note, patient was in A-fib with RVR in the ER. There were no Doppler signals present in the right foot. Patient urgently brought to
the OR on 10/30/2024 where he underwent thromboembolectomy of the right iliac system from a right femoral artery exposure, as well as thromboembolectomy of the right superficial femoral artery, popliteal artery and profunda femoral artery. There
were no complications with EBL of 25 cc. He was transferred to the ICU postoperatively and transfer machine operator services consulted for additional management/recommendations
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
Impression:
#Acute limb ischemia of right lower extremity with thromboembolic occlusion of the right iliac system s/p thromboembolectomy of the right iliac system + thromboembolectomy of the right SFA, popliteal artery and profundofemoral artery (POD #2)
#Acute respiratory failure with hypoxia + hypercapnia on mechanical ventilation (10/29/2024) --> extubated 10/30/2024
#Metabolic acidosis with increased anion gap due to lactic acidosis - acidosis now resolved
#Lactic acidosis due to hypoperfusion of the right lower extremity - lactate now normalized
#Hypocalcemia - resolved
#Hyperbilirubinemia
#Elevated proBNP (5640 on 10/29/2024 although he was 23,100 on 12/25/2023 and 5230 on 07/03/2023) with small bilateral pleural effusions seen on current imaging with CTA chest on 10/29/2024
#Primary hyperthyroidism with undetectable TSH and elevated free T4 at 2.33
#Former tobacco smoker with centrilobular emphysema seen on CTA chest (10/29/2024 - at risk for COPD, although no PFTs on file
#Chronic HFrEF with LVEF 10-15% with severe global hypokinesis via TTE from 04/04/2024
#Paroxysmal A-fib on Eliquis at home
Plan:
Postoperative surgical intensive care unit monitoring
Extubated on 10/30 and he is now breathing comfortably on 6 L/min via nasal cannula saturating 94%
Wean down supplemental O2 to maintain SpO2 >90-94%
prn nebulized bronchodilators � not currently bronchospastic
Incentive spirometry encouraged 10x per hour for at least 4 hrs a day
Aspiration precautions
Pain control
Patient had persistent fevers on morning of 10/30, now resolved --> this could have been related to his ischemia of his lower extremity
Continue to monitor for fever and treat with Tylenol; trend WBC
Follow-up blood cultures x2 (collected on 10/30/2024)
Continue empiric Unasyn (there was concern for aspiration during weaning trial/extubation on 10/30)
Patient has small bilateral pleural effusions seen on imaging (CTA chest from 10/29/2024) with mild pulmonary vascular congestion seen predominantly in the bases
- Patient does take Lasix 40 mg BID at home; diuresed with IV Lasix on 10/30, and now will resume home PO lasix
Resume home medications including his methimazole and transition from heparin gtt to Eliquis
- Defer GDMT to cardiology (on board and recs appreciated)
- Hold Entresto given he remains on phenylephrine gtt
- Restart PO Lopressor but at a lower dose with holding parameters
Trend serum bicarbonate
- Goal serum bicarbonate level 22�26
- No longer need to trend lactate given it is now <2 mmol/L as of 10/30
Neuro and vascular checks per protocol
Maintain MAP>65
Replete electrolytes with K>4, Mg>2
Maintain euglycemia with goal BG 140-180
Vascular surgery following-correspondence and operative notes reviewed
Transfuse blood products as needed to keep Hb>7g/dL, and plt>50k (given post-operative status)
DVT prophylaxis - changing heparin gtt to Eliquis
Early nutrition - Diet as per TAIL DOGGER
Early mobilization
Continue with ICU level of care for this critically ill patient who remains on vasopressors.
Critical care statement: A total of 38 minutes of critical care time was provided for this patient today. This includes management of unstable vital signs, evaluation of the patient at bedside, reviewing the patient's pertinent medical records
including radiographs, microbiology, laboratory evaluations, and discussion with primary team, consultants, pharmacy, nutrition, physical therapy, case management, charge nurse, critical care nursing, and respiratory therapy.
Data:
CTA abdominal aorta with runoff 10/29/2024:
Occluded right common iliac artery. Occluded internal and external iliac arteries. Reconstitution of the right femoral artery. Three-vessel runoff in the calf, though at the level of the ankle, the anterior tibial artery and peroneal artery appear
attenuated with lack of intraluminal contrast identified. The posterior tibial artery appears patent distal to the ankle, though somewhat attenuated compared to the contralateral side.
Occluded left internal iliac artery.
Hepatomegaly. Fatty infiltration. 10 mm low-attenuation right adrenal nodule, likely adenoma. Small left renal cyst. Trace ascites.
Minor diverticulosis. No evidence of acute diverticulitis. No bowel obstruction.
Mild retroperitoneal soft tissue stranding along the course of the common and external iliac vessels.
CTA chest 10/29/2024:
Limited evaluation the lower lobes secondary to respiratory motion degradation. As far as visualized, no evidence of pulmonary embolism with confidence to the segmental pulmonary arteries in the lower lobes. No evidence of upper lobe pulmonary
embolism with confidence to the subsegmental levels.
Minor bilateral pleural effusions. Atelectasis. Mild emphysematous lung changes. No pneumonia.
Small lymph nodes, nonspecific, likely reactive.
Transthoracic echocardiogram 04/04/2024:
Left ventricle is severely dilated with severely reduced left ventricular
systolic function; left ventricular ejection fraction is 10-15% by visual
assessment. Severe global hypokinesis. Normal left ventricular wall thickness.
Diastolic function indeterminate due to atrial fibrillation.
Normal right ventricular size and function.
Mitral valve opens normally with mild mitral regurgitation.
The aortic valve is structurally and functionally normal.
Tricuspid valve opens normally with trace tricuspid regurgitation. Estimated
pulmonary artery pressure of 30-33 mmHg, assuming a right atrial pressure of 3
mmHg.
Compared to prior study 12/26/2023 No significant change noted.
Subjective Dataa
Subjective Data
Date of Service:
Date of Service: October 31, 2024
Chief Complaint: Strip Roller Follow Up
Subjective:
Had 19 beats of VT overnight. Patient is sleepy but easily arousable and answering my questions appropriately. He is much more awake today than yesterday. Currently on Zaki-Synephrine at 30mcg/min and BP is 124/58 via A-line, heart rate 98 and
saturating 94% on 6 L/min. He denies chest pain, abdominal pain, nausea, headache, shortness of breath, fevers or chills.
Review of Systems
General: Other (Negative unless mentioned above)
Objective Data
Data Reviewed
Vital Signs / I&O / Oxygen:
Vital Signs
Temp Pulse Resp BP Pulse Ox
99 F 109 32 124/62 97
10/31/24 03:50 10/31/24 08:53 10/31/24 06:00 10/31/24 08:53 10/31/24 06:00
Intake and Output
10/30/24 10/31/24 11/01/24
06:59 06:59 06:59
Intake Total 763.6 / 832.4 1094.4 / 1094.4
Output Total 825 / 855 3237 / 3237
Balance -61.4 / -22.6 -2142.6 / -2142.6
SaO2 [CPAP] 93
SaO2 [A/C] 98
SaO2 97
Nasal Cannula flow liters per 6
minute
Physical Exam
General: Respiratory Distress (negative), Comfortable, Chills (negative) and Sweats (negative)
HEENT: Normocephalic and Anicteric
Cardiovascular: Irregular Rhythm (Irregularly irregular), Peripheral Edema (+1 lower extremity pitting edema bilaterally) and Other (Tachycardic)
Respiratory: Wheeze (negative), Crackles (negative), Rhonchi (negative), Non-Labored Respirations and Stridor (negative)
GI: Soft, Distended (Abdominal obesity), Non Tender and Normal Bowel Sounds
Neurology: AO x 3 and Tremors (negative)
Skin: Warm, Dry, Cyanosis (negative) and Jaundice (negative)
Labs/Micro/Reports
Lab Data
10/31/24 02:40
10/31/24 02:40
Laboratory Results
10/30/24 10/30/24 10/30/24
12:00 13:11 20:16
APTT 56.9 H 114.5 H
pH 7.36
pCO2 34 L
pO2 92
HCO3 19.2 L
O2 Delivery Level 40%
10/31/24
02:40
APTT 80.4 H
pH
pCO2
pO2
HCO3
O2 Delivery Level
--- NOTE | 2024-10-31 08:30 | PTCARENOTE ---
Assumed care of pt at 0715 following shift report. Pt awake and resting quietly in bed watching TV. Denies c/o pain or SOB. POx 98% on O2 at 6l/min- O2 decreased to 4l/min - will monitor. Rt groin dressing intact w/ JERRI blinking green light.
Bilateral LE cool to touch and absent pedal pulses- unchanged per outgoing shift RN. Wilkerson patent and draining clear nicole. Heparin and Neosynephrine gtts infusing as documented. Physical assessment completed as documented. Comfort care/hygiene
completed.
--- NOTE | 2024-10-31 08:33 | W.PN.VS ---
Addendum entered and electronically signed by Costa Holder MD 10/31/24 17:36:
Seen and examined with MANISHA Saab. Agree with findings and plan as noted below. This is a late entry now.
Original Note:
Today's Communication / Plan
-
Patient seen and examined at bedside with Dr. Costa Holder, below plan reviewed with attending
Assessment/Plan
-
POD #2 Thromboembolectomy of right iliac system from right femoral artery exposure. Thromboembolectomy of right superficial femoral artery, popliteal artery and profunda femoral artery from right femoral artery exposure
Plan:
-Okay from a vascular surgical perspective to discontinue arterial line once phenylephrine titrated off
-Okay from a vascular surgical respective to transition to oral anticoagulation of primary teams choosing
-Okay from a vascular surgical perspective to discontinue Wilkerson catheter
-Continue neurovascular checks
Subjective Data
-
Date of Service: October 31, 2024
Patient seen and examined at bedside, offers no complaints. Reports adequate postoperative pain management. Reports vast improvement in right foot pain to near resolution.
Objective Data
-
Vital Signs
Temp Pulse Resp BP Pulse Ox
99 F 103 32 101/56 97
10/31/24 03:50 10/31/24 06:00 10/31/24 06:00 10/31/24 01:14 10/31/24 06:00
Intake and Output
10/30/24 10/31/24 11/01/24
06:59 06:59 06:59
Intake Total 763.6 / 832.4 1094.4 / 1094.4
Output Total 825 / 855 3237 / 3237
Balance -61.4 / -22.6 -2142.6 / -2142.6
Intake:
Oral fluids 0 / 0
IV fluids (Total) 653.6 / 722.4 854.4 / 854.4
Cardizem 21.3 / 21.3
Fentanyl 17.5 / 22.5 26 / 26
Heparin 100.9 / 118.9 502 / 502
KVO 120 / 130 50 / 50
Zaki 227.3 / 239.3 138 / 138
Precedex 166.6 / 190.4 138.4 / 138.4
Vaso 0 / 0
IV piggybacks 110 / 110 240 / 240
Output:
Urine, Wilkerson 825 / 855 3237 / 3237
Lab Results
10/31/24 02:40
10/31/24 02:40
Calcium 8.1 mg/dl (8.4-10.2) L 10/31/24 02:40
Phosphorus 4.1 mg/dl (2.5-4.5) 10/31/24 02:40
Magnesium 2.3 mg/dl (1.6-2.3) 10/31/24 02:40
Total Bilirubin 3.9 mg/dl (0.2-1.3) H 10/29/24 14:56
AST 19 U/L (17-59) 10/29/24 14:56
ALT 18 U/L (0-50) 10/29/24 14:56
Alkaline Phosphatase 122 U/L (38-126) 10/29/24 14:56
Total Protein 6.1 g/dl (6.3-8.2) L 10/29/24 14:56
Albumin 3.5 g/dl (3.5-5.0) 10/29/24 14:56
Physical Exam
-
Awake and alert in bed resting comfortably
Irregular rhythm
No dyspnea
ABD rotund, nondistended, nontender
Right groin site clean, dry, intact, soft, flat
Right PT Doppler signal, right foot warm
[2024-10-31] MEDS: LASIX 40 MG PO ×2 (08:53→17:01)
[2024-10-31] MEDS: TAPAZOLE 10 MG PO ×2 (08:54→19:36)
--- NOTE | 2024-10-31 09:23 | PN.CDI ---
CDI
- -
CDI:
Physician Documentation Request
Admit Date: 10/29/24 21:41
Dear Doctor Sudha,
Patient admitted for limb threatening ischemia.
10/30 Cardiology Consult: 'Persistent atrial fibrillation, first discovered July 2023'
10/30 Hospitalist PN: 'Paroxysmal Atrial Fibrillation with Rapid Ventricular Response - Rates into the 180s at times on presentation, asymptomatic'
If possible, please provide further specificity regarding atrial fibrillation, such as:
Persistent atrial fibrillation - episodes of continuous AF that last more than 7 days and do not self-terminate
Paroxysmal atrial fibrillation - terminates spontaneously or with intervention within 7 days of onset
Other - please specify
Use of terms such as suspected, likely, concern for, or probable (associated with a specific diagnosis that is being evaluated, monitored, or treated as if it exists) are acceptable and can be coded in the inpatient setting, when documented at the
time of discharge.
Thank you,
Esther Sanon RN, BSN
CDI Specialist
Available via [place] text
Please use your independent medical judgment in providing your response.
--- NOTE | 2024-10-31 10:27 | CM ---
CM following re: discharge planning.
Reviewed pt's chart, met with pt.
Pt is a 59 year old male, admitted with primary dx of POD #2 Thromboembolectomy of right iliac system from right femoral artery exposure.
Pt is well known to this CM from previous admission. Pt reports he lives in an apartment, 2nd floor, 2FF of steps to get to his apartment. Pt reports he has 2 brothers and a mother, one brother lives with mother and brother Jag lives in [place]
area. Pt reports he has supportive friend Angie. 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 Pt reports he was at [facility] in the past. Pt expressed his desire to return back home at discharge.
PT and OT will evaluate the pt to determine a level of care at discharge.
PCP: Edmundo Hammond
Pharmacy: [facility]
D/C plan: uncertain at this time and will depend on pt's progress. PT/OT evaluations pending.
CM will follow with discharge plan updates as hospitalization progresses
--- NOTE | 2024-10-31 10:36 | W.PN.CARDCBS ---
Today's Communication / Plan
-
Stop IV heparin and start Eliquis
Remains on pressors
Eventually resume outpatient cardiomyopathy meds when off of pressors
Follow on telemetry with nonsustained V. tach
Impression / Plan
-
Primary Fish Farm Laborer: Dr. Onofre
Assessment:
Presentation with RLE pain
Acute limb ischemia with R iliac artery occlusion s/p thromboembolectomy of right iliac system, right superficial femoral artery, popliteal artery, profunda femoral artery 10/29/2024
Atrial fibrillation with RVR
Hypotension requiring pressors
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
Persistent atrial fibrillation, first discovered July 2023
Chronic OAC with eliquis
Chronic HFrEF
Tachycardia mediated cardiomyopathy
nsvt
Hyperthyroidism
Noncompliance
Depression
History of ETOH and tobacco abuse
Obesity
ECHO 04/04/2024: EF 10 to 15%, severe global hypokinesis, mild MR, trace TR, PAP 30 to 33 mmHg
Cardiac catheterization 05/22/2024: Nonobstructive coronary disease with normal to mildly elevated right and left-sided filling pressures with normal cardiac output
Echocardiogram 10/30/2024: Severely dilated left ventricle, severely reduced LV systolic function, global hypokinesis with ejection fraction of 5-10%, moderate to severe eccentric TR with PA pressure of 30-35 mmHg, small pericardial effusion.
Plan:
He has improved and is extubated
Still requiring pressors
Vascular surgery approved restart of Eliquis and will stop IV heparin
It is felt that clot may have been due to noncompliance with Eliquis as an outpatient and will not change med
Rate control of A-fib is reasonable with IV Lopressor
Episodes of nonsustained VT. Follow on telemetry
Resume outpatient Toprol, Entresto, spironolactone, Jardiance, Lasix as able wean off of pressors. Chest x-ray without evidence of acute heart failure by my review
He has not followed up in the past regarding ICD
TSH less than 0.02. on methimazole as an outpatient for hyperthyroidism. Med may need to be adjusted.
Progress Note - Fish Farm Laborer
Subjective
Date of Service: October 31, 2024
No complaints
Objective
Labs:
10/31/24 02:40
10/31/24 02:40
Labs
Hgb 15.9 g/dL (13.0-18.0) 10/31/24 02:40
Hct 48.9 % (39.0-52.0) 10/31/24 02:40
Plt Count 266 10^3/uL (130-400) 10/31/24 02:40
APTT 46.0 Sec (23.4-35.0) H 10/31/24 10:00
Sodium 140 mmol/L (135-145) 10/31/24 02:40
Potassium 4.2 mmol/L (3.5-5.1) 10/31/24 02:40
BUN 42 mg/dl (9-20) H 10/31/24 02:40
Creatinine 1.2 mg/dL (0.7-1.3) 10/31/24 02:40
Glucose 130 mg/dl (70-99) H 10/31/24 02:40
Vital Signs and I&O:
Vital Signs
Temp Pulse Resp BP Pulse Ox
99 F 109 32 124/62 97
10/31/24 03:50 10/31/24 08:53 10/31/24 06:00 10/31/24 08:53 10/31/24 06:00
Vital Signs
Temp Pulse Resp BP Pulse Ox
99 F 109 32 124/62 97
10/31/24 03:50 10/31/24 08:53 10/31/24 06:00 10/31/24 08:53 10/31/24 06:00
Intake & Output
10/29/24 10/30/24 10/31/24 11/01/24
06:59 06:59 06:59 06:59
Intake Total 763.6 / 832.4 1094.4 / 1127.4 366 / 366
Output Total 825 / 855 3237 / 3312 730 / 730
Balance -61.4 / -22.6 -2142.6 / -2184.6 -364 / -364
Physical Exam
Physical Exam
General: Well developed, well nourished in NAD.
Neck: Supple, no JVD, HJR, carotids +2 B/L, no bruits bilaterally.
Heart: Non displaced PMI, irregular, no murmurs, No S3, S4, no rubs.
Lungs: Scattered rhonchi
Extremities: No clubbing, cyanosis or edema bilaterally.
Neuro: Grossly nonfocal, awake, alert and oriented x3.
[2024-10-31] MEDS: LOPRESSOR 12.5 MG PO ×2 (11:53→19:35)
[2024-10-31] MEDS: ELIQUIS 5 MG PO ×2 (11:53→21:25)
[2024-10-31] MEDS: FARXIGA 10 MG PO (11:54)
--- NOTE | 2024-10-31 12:00 | PTCARENOTE ---
Pt's brother visiting at bedside. Heparin gtt d/c'ed at 1155 per order- Eliquis started. Pox 92-95% on 4l/min O2 via NC. Continues to deny c/o pain. No additional changes from previous assessment findings.
[2024-10-31 12:10] LABS: Glucose - Point of Care 163 mg/dl (70-99)
[2024-10-31 12:26] LABS: Blood Urea Nitrogen 41 mg/dl (9-20); Calcium 8.1 mg/dl (8.4-10.2); Carbon Dioxide 25 mmol/L (22-30); Chloride 107 mmol/L (98-107); Estimated Creatinine Clearance 111 ml/min; Glucose 154 mg/dl (70-99); Magnesium 2.3 mg/dl (1.6-2.3); Phosphorus 3.5 mg/dl (2.5-4.5); Potassium 4.1 mmol/L (3.5-5.1); Sodium 138 mmol/L (135-145); eGFR > 60.00
[2024-10-31 16:00] VITALS: BP 120/103
--- NOTE | 2024-10-31 16:00 | PTCARENOTE ---
All systems reassessed. No changes or new complaints received.
[2024-10-31] MEDS: NEO-SYNEPHRINE 250 IV (17:52)
--- NOTE | 2024-10-31 19:27 | PTCARENOTE ---
All systems reassessed. No changes or new complaints received.
[2024-10-31 19:41] VITALS: BP 95/73
--- NOTE | 2024-10-31 20:33 | PTCARENOTE ---
Received patient AAOx3, following commands, denying pain. DRAKE, PERRLA 3 mm. Neurovascular checks ongoing q4. Afib 90s-130s, BP 90s-100s/50s-60s. On phenylephrine gtt to maintain MAP>65. Normothermic, trace lower extremity edema.. On 4 liters nasal
cannula, lung sounds diminished in the bases. Abdomen large, round, obese, hyperactive bowel sounds. Wilkerson in place draining yellow urine. Right JERRI dressing CDI. PIVs patent, WNL. Left radial jonh zeroed, flushed, leveled. Call marshall within reach.
[2024-11-01] VITALS (19 sets, daily range): BP systolic 83–148; BP diastolic 64–116; PULSE 131; BMI 39.5
--- NOTE | 2024-11-01 00:20 | PTCARENOTE ---
Patient assessment unchanged from previous, call marshall within reach.
--- NOTE | 2024-11-01 04:05 | PTCARENOTE ---
Patient assessment unchanged from previous. labs sent, call marshall within reach.
[2024-11-01] MEDS: UNASYN IV ×4 (04:09→21:42)
[2024-11-01 04:38] LABS: NT-proBNP 5130 pg/ml
[2024-11-01 04:46] LABS: ALT (SGPT) 470 U/L (0-50); AST (SGOT) 456 U/L (17-59); Albumin 2.8 g/dl (3.5-5.0); Alkaline Phosphatase 104 U/L (38-126); Blood Urea Nitrogen 36 mg/dl (9-20); Calcium 8.2 mg/dl (8.4-10.2); Carbon Dioxide 25 mmol/L (22-30); Chloride 106 mmol/L (98-107); Estimated Creatinine Clearance 123 ml/min; Glucose 120 mg/dl (70-99); Magnesium 2.1 mg/dl (1.6-2.3); Potassium 3.9 mmol/L (3.5-5.1); Sodium 137 mmol/L (135-145); Total Protein 5.1 g/dl (6.3-8.2); eGFR > 60.00
[2024-11-01] MEDS: LASIX 40 MG PO ×2 (07:17→15:40)
[2024-11-01] MEDS: TAPAZOLE 10 MG PO ×2 (07:17→19:47)
[2024-11-01] MEDS: LOPRESSOR 12.5 MG PO ×2 (07:17→11:52)
[2024-11-01] MEDS: FARXIGA 10 MG PO (07:17)
[2024-11-01] MEDS: ELIQUIS 5 MG PO ×2 (07:17→19:37)
--- NOTE | 2024-11-01 07:30 | PTCARENOTE ---
Received patient from warehouse worker 2nd shift. Patient is AAOx4, can move all extremities. patient is on 2L, diminished throughout. He is in an afib rhythm on monitor. Yvette pressure not correlating with cuff, Vascular team at bedside. order for yvette to
come out. Patient ordered breakfast. Candelaria catheter in, draining, asked that cardiology address further need for candelaria. PT pulses by doppler bilaterally. will review orders.
--- NOTE | 2024-11-01 08:10 | W.PN.VS ---
Addendum entered and electronically signed by Costa Holder MD 11/01/24 13:38:
Seen and examined earlier this a.m. with SUPERVISOR BE[employer] [facility]. Agree with findings as noted below. Right groin dressing clean dry and intact. Groin flat. Right foot warm. Compartments all soft. Plan/as discussed and noted below.
Original Note:
Today's Communication / Plan
-
Patient seen and examined at bedside with Dr. Costa Holder, below plan reviewed with attending.
Assessment/Plan
-
POD #3 Thromboembolectomy of right iliac system from right femoral artery exposure. Thromboembolectomy of right superficial femoral artery, popliteal artery and profunda femoral artery from right femoral artery exposure
Plan:
-Okay from a vascular surgical perspective to discontinue arterial line
-Continue neurovascular checks
-This provider will return later today to readdress aishwarya dressing
-Will place office follow-up in discharge instructions
-We will sign off please call with questions or concerns
Subjective Data
-
Date of Service: November 01, 2024
Patient seen and examined at bedside, offers no complaints. Reports complete resolution in foot pain.
Objective Data
-
Vital Signs
Temp Pulse Resp BP Pulse Ox
97.9 F 127 21 120/68 96
11/01/24 07:15 11/01/24 07:17 11/01/24 04:00 11/01/24 07:17 11/01/24 07:37
Intake and Output
10/31/24 11/01/24 11/02/24
06:59 06:59 06:59
Intake Total 1094.4 / 1127.4 2936 / 3176 690 / 690
Output Total 3237 / 3312 4469 / 4469 200 / 200
Balance -2142.6 / -2184.6 -1533 / -1293 490 / 490
Intake:
Oral fluids 2160 / 2400 690 / 690
IV fluids (Total) 854.4 / 887.4 296 / 296
Fentanyl 26 / 26
Heparin 502 / 523 110 / 110
KVO 50 / 50
Zaki 138 / 150 186 / 186
Precedex 138.4 / 138.4
IV piggybacks 240 / 240 480 / 480
Output:
Urine, Wilkerson 3237 / 3312 4469 / 4469 200 / 200
Lab Results
10/31/24 02:40
11/01/24 03:58
Calcium 8.2 mg/dl (8.4-10.2) L 11/01/24 03:58
Phosphorus 3.0 mg/dl (2.5-4.5) 11/01/24 03:58
Magnesium 2.1 mg/dl (1.6-2.3) 11/01/24 03:58
Total Bilirubin 2.0 mg/dl (0.2-1.3) H D 11/01/24 03:58
Direct Bilirubin 1.0 mg/dl (0.0-0.4) H 11/01/24 03:58
AST 456 U/L (17-59) H 11/01/24 03:58
ALT 470 U/L (0-50) H 11/01/24 03:58
Alkaline Phosphatase 104 U/L (38-126) 11/01/24 03:58
Total Protein 5.1 g/dl (6.3-8.2) L 11/01/24 03:58
Albumin 2.8 g/dl (3.5-5.0) L 11/01/24 03:58
Physical Exam
-
Awake and alert in bed resting comfortably
Irregular rhythm
No dyspnea
ABD rotund, nondistended, nontender
Right groin aishwarya dressing clean, dry, intact, soft, flat
Right foot warm
--- NOTE | 2024-11-01 08:19 | W.PN.INTV ---
Today's Communication / Plan
Recommendations
Maintain MAP 70�100
Change PO lopressor to toprol-XL with holding parameters to help his A-fib with RVR
Goal HR <110
Replete K>4, Mg>2
Pain control
Neurovascular checks of lower extremities (particularly his right lower extremity)
Maintain SpO2 >90- 94% with supplemental oxygen --> if resting SpO2 remains <96% on room air then check ambulatory pulse oximetry prior to discharge
Encourage incentive spirometer use
Patient is stable for downgrade out of ICU to telemetry. No additional recommendations at this time. Sorting Grapple Operator/Pulmonary service will now sign off. Please reconsult if there are any additional questions/concerns, or if patient's respiratory
status deteriorates.
Assessment
-
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
presents with right lower extremity pain and swelling. Right lower extremity duplex US showed no evidence of DVT. CTA abdominal aorta with runoff showed an occluded right common iliac artery with occluded internal + external iliac arteries with
reconstitution of the right femoral artery. Also an occluded left internal iliac artery. Initially in ER he was afebrile to 98.1 �F, pulse rate 139, breathing at 20 breaths/min, BP 119/75 and saturating 98% on room air. Initial labs showed
leukocytosis to 12.7, T. bili elevated at 3.9, and proBNP elevated at 5640. Vascular surgery was consulted. Of note, patient was in A-fib with RVR in the ER. There were no Doppler signals present in the right foot. Patient urgently brought to
the OR on 10/30/2024 where he underwent thromboembolectomy of the right iliac system from a right femoral artery exposure, as well as thromboembolectomy of the right superficial femoral artery, popliteal artery and profunda femoral artery. There
were no complications with EBL of 25 cc. He was transferred to the ICU postoperatively and networking technician services consulted for additional management/recommendations
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
Impression:
#Acute limb ischemia of right lower extremity with thromboembolic occlusion of the right iliac system s/p thromboembolectomy of the right iliac system + thromboembolectomy of the right SFA, popliteal artery and profundofemoral artery (POD #3)
#Acute respiratory failure with hypoxia + hypercapnia on mechanical ventilation (10/29/2024) --> extubated 10/30/2024
#Metabolic acidosis with increased anion gap due to lactic acidosis - acidosis now resolved
#Lactic acidosis due to hypoperfusion of the right lower extremity - lactate now normalized
#Hypocalcemia - resolved
#Hyperbilirubinemia � improving
#Transaminitis
#Elevated proBNP (5640 on 10/29/2024 although he was 23,100 on 12/25/2023 and 5230 on 07/03/2023) with small bilateral pleural effusions seen on current imaging with CTA chest on 10/29/2024
#Primary hyperthyroidism with undetectable TSH and elevated free T4 at 2.33
#Former tobacco smoker with centrilobular emphysema seen on CTA chest (10/29/2024 - at risk for COPD, although no PFTs on file
#Chronic HFrEF with LVEF 10-15% with severe global hypokinesis via TTE from 04/04/2024
#Paroxysmal A-fib on Eliquis at home
Plan:
Postoperative management as per vascular surgery � they have now signed off
- Advised to follow-up with vascular surgery as an outpatient
Extubated on 10/30 and he is now breathing comfortably on 2 L/min via nasal cannula saturating 95%
Maintain SpO2 >90-94% and wean down supplemental O2 as tolerated --> if resting SpO2 <96% on room air then check ambulatory pulse oximetry prior to discharge
prn nebulized bronchodilators � not currently bronchospastic
Incentive spirometry encouraged 10x per hour for at least 4 hrs a day
Aspiration precautions
Pain control
Patient had persistent fevers on morning of 10/30, now resolved --> this could have been related to his ischemia of his lower extremity
Continue to monitor for fever and treat with Tylenol; trend WBC
Follow-up blood cultures x2 (collected on 10/30/2024)
Continue empiric Unasyn (there was concern for aspiration during weaning trial/extubation on 10/30)
Patient had small bilateral pleural effusions seen on imaging (CTA chest from 10/29/2024) with mild pulmonary vascular congestion seen predominantly in the bases
- Patient does take Lasix 40 mg BID at home; diuresed with IV Lasix on 10/30, and now on home PO lasix
Resume home medications including his methimazole and Eliquis
- Defer GDMT to cardiology (on board and recs appreciated)
- Resume Entresto once deemed safe per cardiology
- Given his tachycardia, change PO Lopressor to toprol-XL at 25mg BID (half his usual home dose as he is still hypotensive); continue holding parameters
Trend serum bicarbonate
- Goal serum bicarbonate level 22�26
- No longer need to trend lactate given it is now <2 mmol/L as of 10/30
Neuro and vascular checks per protocol
Maintain MAP>65
Replete electrolytes with K>4, Mg>2
Maintain euglycemia with goal BG 140-180
Vascular surgery following-correspondence and operative notes reviewed
Transfuse blood products as needed to keep Hb>7g/dL, and plt>50k (given post-operative status)
DVT prophylaxis - Eliquis
Early nutrition - Diet as per [employer] PORTAL DEVELOPER
Early mobilization
Patient is stable for downgrade out of ICU to telemetry. No additional recommendations at this time. Sorting Grapple Operator/Pulmonary service will now sign off. Thank you for allowing us to be involved in the care of this patient. Please reconsult if there
are any additional questions/concerns, or if patient's respiratory status deteriorates.
Data:
CTA abdominal aorta with runoff 10/29/2024:
Occluded right common iliac artery. Occluded internal and external iliac arteries. Reconstitution of the right femoral artery. Three-vessel runoff in the calf, though at the level of the ankle, the anterior tibial artery and peroneal artery appear
attenuated with lack of intraluminal contrast identified. The posterior tibial artery appears patent distal to the ankle, though somewhat attenuated compared to the contralateral side.
Occluded left internal iliac artery.
Hepatomegaly. Fatty infiltration. 10 mm low-attenuation right adrenal nodule, likely adenoma. Small left renal cyst. Trace ascites.
Minor diverticulosis. No evidence of acute diverticulitis. No bowel obstruction.
Mild retroperitoneal soft tissue stranding along the course of the common and external iliac vessels.
CTA chest 10/29/2024:
Limited evaluation the lower lobes secondary to respiratory motion degradation. As far as visualized, no evidence of pulmonary embolism with confidence to the segmental pulmonary arteries in the lower lobes. No evidence of upper lobe pulmonary
embolism with confidence to the subsegmental levels.
Minor bilateral pleural effusions. Atelectasis. Mild emphysematous lung changes. No pneumonia.
Small lymph nodes, nonspecific, likely reactive.
Transthoracic echocardiogram 04/04/2024:
Left ventricle is severely dilated with severely reduced left ventricular
systolic function; left ventricular ejection fraction is 10-15% by visual
assessment. Severe global hypokinesis. Normal left ventricular wall thickness.
Diastolic function indeterminate due to atrial fibrillation.
Normal right ventricular size and function.
Mitral valve opens normally with mild mitral regurgitation.
The aortic valve is structurally and functionally normal.
Tricuspid valve opens normally with trace tricuspid regurgitation. Estimated
pulmonary artery pressure of 30-33 mmHg, assuming a right atrial pressure of 3
mmHg.
Compared to prior study 12/26/2023 No significant change noted.
Total time spent today was 58 minutes for this encounter. Time includes reviewing laboratory test/imaging results, reviewing pertinent medical records, obtaining and reviewing medical history, performing an appropriate exam, ordering medications,
tests and procedures. Time also includes documentation of this encounter, coordinating patient care and communicating with other healthcare professionals. Total time does not include separately billed tests performed on this date of service.
Subjective Dataa
Subjective Data
Date of Service:
Date of Service: November 01, 2024
Chief Complaint: Sorting Grapple Operator Follow Up
Subjective:
Patient was seen and evaluated this morning. Heart rate 125, BP 116/76 and saturating 93% on 2 L/min nasal cannula. He feels well this morning. Off of Zaki-Synephrine since 3AM. HR jumps to 140s with movement. He currently denies chest pain, GORDON,
abdominal pain, nausea, fevers or chills.
Review of Systems
General: Other (Negative unless mentioned above)
Objective Data
Data Reviewed
Vital Signs / I&O / Oxygen:
Vital Signs
Temp Pulse Resp BP Pulse Ox
97.9 F 127 21 120/68 96
11/01/24 07:15 11/01/24 07:17 11/01/24 04:00 11/01/24 07:17 11/01/24 07:37
Intake and Output
10/31/24 11/01/24 11/02/24
06:59 06:59 06:59
Intake Total 1094.4 / 1127.4 2936 / 3176 690 / 690
Output Total 3237 / 3312 4469 / 4469 200 / 200
Balance -2142.6 / -2184.6 -1533 / -1293 490 / 490
SaO2 [CPAP] 93
SaO2 [A/C] 98
SaO2 96
Nasal Cannula flow liters per 2
minute
Physical Exam
General: Respiratory Distress (negative), Comfortable, Chills (negative) and Sweats (negative)
HEENT: Normocephalic and Anicteric
Cardiovascular: Irregular Rhythm (Irregularly irregular), Peripheral Edema (+1 lower extremity pitting edema bilaterally) and Other (Tachycardic)
Respiratory: Wheeze (negative), Crackles (negative), Rhonchi (negative), Non-Labored Respirations and Stridor (negative)
GI: Soft, Distended (Abdominal obesity), Non Tender and Normal Bowel Sounds
Neurology: AO x 3 and Tremors (negative)
Skin: Warm, Dry, Cyanosis (negative) and Jaundice (negative)
Labs/Micro/Reports
Lab Data
10/31/24 02:40
11/01/24 03:58
Laboratory Results
10/31/24 10/31/24
10:00 16:30
APTT 46.0 H Cancelled
Microbiology
10/30/24 10:26 Blood/Venous Blood Culture - Preliminary
No Growth in 24 hours- Final report to follow
10/30/24 10:26 Blood/Venous Blood Culture - Preliminary
No Growth in 24 hours- Final report to follow
--- NOTE | 2024-11-01 08:41 | PN.CDI ---
CDI
- -
CDI:
Physician Documentation Request
Admit Date: 10/29/24 21:41
Dear Doctor Sudha,
Patient admitted with critical limb ischemia.
10/30 Cardiology PN: 'Persistent atrial fibrillation, first discovered July 2023'
10/30 Hospitalist PN: 'Paroxysmal Atrial Fibrillation with Rapid Ventricular Response - Rates into the 180s at times on presentation, asymptomatic'
If possible, please provide further specificity regarding atrial fibrillation, such as:
Persistent atrial fibrillation - episodes of continuous AF that last more than 7 days and do not self-terminate
Paroxysmal atrial fibrillation - terminates spontaneously or with intervention within 7 days of onset
Other - please specify
Use of terms such as suspected, likely, concern for, or probable (associated with a specific diagnosis that is being evaluated, monitored, or treated as if it exists) are acceptable and can be coded in the inpatient setting, when documented at the
time of discharge.
Thank you,
Esther Sanon RN, BSN
CDI Specialist
Available via [place] text
Please use your independent medical judgment in providing your response.
--- NOTE | 2024-11-01 08:46 | PN.CDI ---
CDI
- -
CDI:
Physician Documentation Request
Admit Date: 10/29/24 21:41
Dear Doctor Ellis,
Patient admitted with critical limb ischemia.
10/30 Cardiology Consult: 'Persistent atrial fibrillation, first discovered July 2023'
10/31 Hospitalist PN: 'Paroxysmal Atrial Fibrillation with Rapid Ventricular Response - Rates into the 180s at times on presentation, asymptomatic'
If possible, please provide further specificity regarding atrial fibrillation, such as:
Persistent atrial fibrillation - episodes of continuous AF that last more than 7 days and do not self-terminate
Paroxysmal atrial fibrillation - terminates spontaneously or with intervention within 7 days of onset
Other - please specify
Use of terms such as suspected, likely, concern for, or probable (associated with a specific diagnosis that is being evaluated, monitored, or treated as if it exists) are acceptable and can be coded in the inpatient setting, when documented at the
time of discharge.
Thank you,
Esther Sanon RN, BSN
CDI Specialist
Available via [place] text
Please use your independent medical judgment in providing your response.
--- NOTE | 2024-11-01 08:51 | W.PN.CARDCBS ---
Today's Communication / Plan
-
Okay to leave ICU
Add amiodarone for better rate control. Tachycardia may be a fundamental problem producing longstanding persistently reduced EF.
Reinstitute GDMT as blood pressure permits
Patient should likely undergo ICD implantation, timing to be determined
Impression / Plan
-
Primary Technical Account Manager: Dr. Onofre
Assessment:
Acute limb ischemia with R iliac artery occlusion s/p thromboembolectomy of right iliac system, right superficial femoral artery, popliteal artery, profunda femoral artery 10/29/2024
Atrial fibrillation with RVR
Hypotension requiring pressors
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
Persistent atrial fibrillation, first discovered July 2023
Chronic OAC with eliquis
Chronic HFrEF
Tachycardia mediated cardiomyopathy
nsvt
Hyperthyroidism
Noncompliance
Depression
History of ETOH and tobacco abuse
Obesity
ECHO 04/04/2024: EF 10 to 15%, severe global hypokinesis, mild MR, trace TR, PAP 30 to 33 mmHg
Cardiac catheterization 05/22/2024: Nonobstructive coronary disease with normal to mildly elevated right and left-sided filling pressures with normal cardiac output
Echocardiogram 10/30/2024: Severely dilated left ventricle, severely reduced LV systolic function, global hypokinesis with ejection fraction of 5-10%, moderate to severe eccentric TR with PA pressure of 30-35 mmHg, small pericardial effusion.
Plan:
He looks surprisingly well on physical exam. Appreciate efforts of vascular surgery to save his leg.
However his heart rate is rapid.
Ability to can control heart rate is limited. Will add amiodarone for rate control.
His EF is persistently down and I wonder if this is longstanding tachycardia mediated. Hopefully amiodarone will permit heart rate control and might permit improvement in EF. I think it is unlikely that amiodarone will restore sinus rhythm
ICD implantation is likely indicated and the issue is timing. His EF was markedly depressed in March of this year as well. If we can establish better rate control, we may wish to hold off for the time being.
TSH less than 0.02. on methimazole as an outpatient for hyperthyroidism. Med may need to be adjusted.
Progress Note - Technical Account Manager
Subjective
Date of Service: November 01, 2024:
He says that he has been compliant with Eliquis.
PMH: History of left common femoral thrombectomy June 2023, persistent atrial fibrillation, chronic HFrEF, tachycardia mediated cardiomyopathy, nonsustained VT, noncompliance, hyperthyroidism, depression, history of tobacco and alcohol abuse
PSH/FH/SH: Reviewed
Allergies: None
Outpatient medicines: Eliquis, furosemide 40 twice daily, Jardiance 10, methimazole, metoprolol ER 50 twice daily, potassium 20 mill equivalents daily, Entresto, spironolactone
Current meds: Zaki-Synephrine, methimazole 10 twice daily, furosemide 40 mg p.o. twice daily, ampicillin/sulbactam, Farxiga 10 mg a day, apixaban 5 twice daily, metoprolol ER 12.5 mg daily, Entresto, potassium, spironolactone on hold, Jardiance on
hold
ROS: No new changes
120/68, pulse 127, respiratory 21, afebrile, sats 96%, intake and output -0.96 L, weight is 131.9 kg, down 1.7 kg
No acute distress, head neck exam unremarkable, lungs are diminished, tachycardic rate and rhythm, JVD okay, abdomen benign, right lower extremity pulse intact leg looks benign.
BUN and creatinine are 36 and 0.9, bilirubin is 2, AST 456, ALT 470, proBNP is 5130, which is baseline, hemoglobin 15.9 yesterday
Echo October 2024: EF 5-10%, mild MR, moderate to severe TR, pulmonary artery pressure 30-35
ECG A-fib, rapid ventricular response, IVCD, possible anterior AL, left axis deviation possible inferior AL
Objective
Labs:
10/31/24 02:40
11/01/24 03:58
Labs
Hgb 15.9 g/dL (13.0-18.0) 10/31/24 02:40
Hct 48.9 % (39.0-52.0) 10/31/24 02:40
Plt Count 266 10^3/uL (130-400) 10/31/24 02:40
APTT Cancelled 10/31/24 16:30
Sodium 137 mmol/L (135-145) 11/01/24 03:58
Potassium 3.9 mmol/L (3.5-5.1) 11/01/24 03:58
BUN 36 mg/dl (9-20) H 11/01/24 03:58
Creatinine 0.9 mg/dL (0.7-1.3) 11/01/24 03:58
Glucose 120 mg/dl (70-99) H 11/01/24 03:58
Vital Signs and I&O:
Vital Signs
Temp Pulse Resp BP Pulse Ox
36.6 C 127 21 120/68 96
11/01/24 07:15 11/01/24 07:17 11/01/24 04:00 11/01/24 07:17 11/01/24 07:37
Vital Signs
Temp Pulse Resp BP Pulse Ox
36.6 C 127 21 120/68 96
11/01/24 07:15 11/01/24 07:17 11/01/24 04:00 11/01/24 07:17 11/01/24 07:37
Intake & Output
10/30/24 10/31/24 11/01/24 11/02/24
07:59 07:59 07:59 07:59
Intake Total 832.4 / 896.2 1058.6 / 1091.6 3593 / 3593
Output Total 855 / 905 3282 / 3357 4594 / 4594
Balance -22.6 / -8.8 -2223.4 / -2265.4 -1001 / -1001
Physical Exam
Physical Exam
See above
--- NOTE | 2024-11-01 11:45 | W.PN.UPDATE ---
Update Note
Progress Note Update
Right groin aishwarya dressing changed, bry and sutures well-approximated, CDI, no evidence of hematoma, all surrounding areas soft. Aishwarya dressing can stay in place till 11/03/24, following removal surgical incision can be left open to air or
covered with gauze and secured with paper tape change daily or as needed if soiled. Vascular surgery follow-up placed in discharge instructions, we will sign off please call with questions or concerns
[2024-11-01] MEDS: PACERONE 400 MG PO ×3 (11:52→21:41)
[2024-11-01 12:05] LABS: Glucose - Point of Care 136 mg/dl (70-99)
--- NOTE | 2024-11-01 12:11 | PTCARENOTE ---
JERRI dressing removed by vascular team. cardiology adjusting meds for better HR control. Wilkerson to be pulled, possible downgrade to 2S
--- NOTE | 2024-11-01 13:05 | PTOTSP ---
ST Follow-Up
Pt currently presents with clinical signs of a fairly functional oropharyngeal swallow. Pt is at an increased risk for aspiration given his impulsivity with his increased bite size, occasional eructation s/p ingestion, recent intubation, and
increased respiratory demands.
Recommendations:
- Upgrade diet to REGULAR SOLIDS and THIN LIQUIDS with meds as tolerated.
- Aspiration precautions: HOB fully upright for all PO intake; encourage pt to take small bites and small sips with slow intake rate.
- ELECTRICAL AND RADIO MOCK UP MECHANIC to f/u re: diet tolerance.
--- NOTE | 2024-11-01 14:12 | W.PN.HOSP.TC ---
Today's Communication/Plan
-
Okay to transfer to telemetry
Off pressors now
Continue antibiotics
Follow LFTs
Assessment / Plan
Assessment / Plan
Mr. Buster Velazquez is a 59 yo man with hx paroxysmal afib, HFrEF, prior LLE embolism/ischemia presents to the ER with new onset RLE pain found ot have complete occlusion right iliac artery s/p emergent OR for re-vascularization. He was also noted to
be in rapid afib.
10/29/24
Procedure:
1. Thromboembolectomy of right iliac system from right femoral artery exposure
2. Thromboembolectomy of right superficial femoral artery, popliteal artery and profunda femoral artery from right femoral artery exposure
Chest x-ray reviewed by me left lower lobe opacity
Awake and alert
Cardiovascular system S1-S2 appreciated
Chest rales at left base
Abdomen soft and nontender
Bilateral feet are warm, pulses by Doppler
# Fever treat as aspiration pneumonia left lower lobe opacity
Agree with Unasyn
# Shock unclear reason possibly cardiogenic-off pressors
# Abnormal LFTs-possible shock liver. Follow
#Limb-Threatening Ischemia of the RLE
-Thromboembolic Occlusion of the Right Iliac Artery
-s/p R Femoral artery cut down, thrombectomy of right iliac system proximally and SFA/profunda distally - 10/29
-PVD with history of thrombectomy June 2023
-Post-op Vascular protocols
-Heparin switched to Eliquis
#VDRF for acute hypoxic respiratory failure and hypercapnic respiratory failure
- Patient is currently extubated doing well on nasal cannula oxygen
# Metabolic acidosis-lactic acidosis secondary to hypoperfusion-improved
# Paroxysmal Atrial Fibrillation with Rapid Ventricular Response
-History of cardioversion in the past
- Rates into the 180s at times on presentation
- IV diltiazem off; metoprolol 25 mg twice daily and also amiodarone 400 mg 3 times daily started
- Eliquis
- Cardiology following.
# Chronic HFrEF
-Echo 10/30/2024-LV severely dilated. Mild concentric LVH. Severely reduced LV systolic function. Global hypokinesis. EF 5 to 10%. Stage II diastolic dysfunction. Normal RV size and function. Mild MR. Moderate to severe TR. Pulmonary artery
pressure 30 to 35 mmHg. Small pericardial effusion.
- Patient does not appear grossly volume overloaded at present.
- GDMT . Continue SGLT2 inhibitors. Continue beta-blockers
- Follow I/Os, daily weights
-Continue Lasix 40 mg p.o. twice daily
- BNP - while elevated at 5640 - is significantly lower than prior at 23k.
-Patient has not followed up for ICD evaluation
# Hypocalcemia-replace as needed
# Hyperthyroidism
- Free T4 is elevated at present indicating poor control.
- Continue methimazole via OGT / PO.
# Morbid Obesity due to excess calories
- Affects all aspects of care.
- Encourage healthy diet and increased activity with goal of weight loss.
# Medical Non-Compliance- Patient with documented history of poor compliance.
# History of alcohol abuse in the past
# Prediabetes-hemoglobin A1c 6.0-was 6.3 earlier
# Microscopic hematuria
# Fatty infiltration of the liver according to CAT scan
# Diverticulosis
# Ex Smoker
# DVT Prophylaxis: Eliquis
# Code Status: Full
Discussed with food sales clerk
Anticipated Discharge: 24 - 48 hours
Subjective/Interval History
-
Date of Service: November 01, 2024
Objective Data
-
Labs:
Laboratory Results
11/01/24
03:58
Sodium 137
Potassium 3.9
Chloride 106
Carbon Dioxide 25
BUN 36 H
Creatinine 0.9
Glucose 120 H
Calcium 8.2 L
Total Bilirubin 2.0 H D
AST 456 H
ALT 470 H
Alkaline Phosphatase 104
Vital Signs:
Vital Signs
Temp Pulse Resp BP Pulse Ox
98.9 F 120 31 139/88 93
11/01/24 11:51 11/01/24 12:00 11/01/24 12:00 11/01/24 12:00 11/01/24 08:30
I&O
10/31/24 11/01/24 11/02/24
06:59 06:59 06:59
Intake Total 1094.4 / 1127.4 2936 / 3176 810 / 810
Output Total 3237 / 3312 4469 / 4469 900 / 900
Balance -2142.6 / -2184.6 -1533 / -1293 -90 / -90
--- NOTE | 2024-11-01 16:18 | CM ---
CM following re: discharge planning.
Reviewed pt's chart, met with pt.
PT and OT evaluations pending.
Pt expressed his desire to return back home at discharge with family support.
Pt lives in an apartment, 2nd floor, 2FF of steps to get to his apartment, has 2 brothers and a mother, one brother lives with mother and brother Jag lives in [facility], has supportive friend Angie. Pt described himself as independent in all
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
D/C plan: home with anticipated no needs.
CM will follow with discharge plan updates as hospitalization progresses
[2024-11-01 16:36] LABS: Glucose - Point of Care 106 mg/dl (70-99)
--- NOTE | 2024-11-01 16:36 | PTCARENOTE ---
Patient now written for tele. Patient's HR in the 160s-170s when ambulating with physical therapy.
[2024-11-01] MEDS: TOPROL XL 25 MG PO (19:38)
--- NOTE | 2024-11-01 20:39 | PTCARENOTE ---
Received patient AAOx3, following commands, denying pain, OOB to the chair. Neurovascular and neurological checks Q4 ongoing. Afib 110s-150s, BP 110s/80s. Normothermic, +1 lower extremity edema. Doppler PT pulses b.l, absent DP pulses b/l. On room
air saturating 95%, lung sounds diminished. Abdomen round, obese, positive bowel sounds, last BM today. Urinal to void. R groin JERRI dressing CDI, PIVs patent, WNL. Call marshall within reach.
--- NOTE | 2024-11-01 22:45 | PTCARENOTE ---
Pt arrived to the floor as transfer from ICU. Pt ambulatory from wheelchair into room independently. Pt AAOx3. Heart monitor applied, HR in the 120's at rest, 140's with activity in Afib with PVC's . POX 95% on RA. lungs clear, NOONAN. Pt ambulatory to
bathroom. Left hand int, left ac int capped. Neurovascular checks as documented. Pt denies any complaints of pain at this time. Will continue to monitor.
[2024-11-02] VITALS (8 sets, daily range): BP systolic 104–141; BP diastolic 65–94; PULSE 58–122; O2SAT 97; BMI 38.4
--- NOTE | 2024-11-02 05:00 | PTCARENOTE ---
Pt awake most of the night. Pt walking around room. HR 120's-130's. Low 100's at rest. IV access assessed upon IV ABX administration, both IV's no longer in place and sitting on bedside table. Pt doesnt recall removing them. New #20 Int placed in
right wrist. IV abx now infusing as ordered. No other changes in assessment noted at this time. Will monitor.
[2024-11-02] MEDS: UNASYN IV ×4 (05:26→22:07)
[2024-11-02 06:36] LABS: Hemoglobin 15.4 g/dL (13.0-18.0); Mean Corp Hgb Conc. 32.1 g/dL (33.0-37.0); Mean Corpuscular Hgb 31.4 pg (27.0-31.0); Mean Corpuscular Volume 97.8 fL (80.0-94.0); Mean Platelet Volume 10.3 fL (7.4-10.4); Platelet Count 221 10^3/uL (130-400); Red Blood Cell Count 4.91 10^6/uL (4.70-6.10); Red Cell Dist. Width 15.6 % (11.5-14.5); White Blood Cell Count 12.7 10^3/uL (4.8-10.8)
[2024-11-02 07:02] LABS: ALT (SGPT) 433 U/L (0-50); AST (SGOT) 342 U/L (17-59); Albumin 3.3 g/dl (3.5-5.0); Alkaline Phosphatase 114 U/L (38-126); Blood Urea Nitrogen 31 mg/dl (9-20); Calcium 8.7 mg/dl (8.4-10.2); Carbon Dioxide 31 mmol/L (22-30); Chloride 100 mmol/L (98-107); Direct Bilirubin 1.3 mg/dl (0.0-0.4); Estimated Creatinine Clearance 121 ml/min; Glucose 106 mg/dl (70-99); Magnesium 2.2 mg/dl (1.6-2.3); Phosphorus 3.4 mg/dl (2.5-4.5); Potassium 3.8 mmol/L (3.5-5.1); Sodium 137 mmol/L (135-145); Total Bilirubin 2.8 mg/dl (0.2-1.3); Total Protein 5.8 g/dl (6.3-8.2); eGFR > 60.00
--- NOTE | 2024-11-02 07:29 | W.PN.CARDCBS ---
Addendum entered and electronically signed by Dev Onofre MD 11/02/24 12:16:
I saw and examined the patient.
[employer]'s note was reviewed and I agree with the note.
Comment:
GEN: No distress, awake, Ox3
HEENT: supple, anicteric, mmm
LUNGS: CTA, no wheezes/rales
CV: Irreg, S1/S2, 1/6 syst LSB, no gallop
ABD: soft, BS+, NT/ND
EXT: No edema
NEURO: Gross non-focal
SKIN: No rash
Plan:
Continues to recover from thrombectomy.
Ventricular rates remain modestly elevated. Continue amiodarone load for another 24 hours. Blood pressure is stable today. This has prevented us from adding other medications for his cardiomyopathy. I suspect that his poorly controlled
ventricular rate is contributing somewhat to his cardiomyopathy. Continue Toprol 25 mg p.o. twice daily. Hopefully titrate this further.
Cont Lasix 40mg po bid /Farxiga
Continue Eliquis.
Adjust Synthroid per medical team.
Eventually would consider Entresto/Aldactone as outpatient once ventricular rates are improved.
Would consider ICD as outpatient after follow-up and he has been on adequate medical therapy. He has been noncompliant in the past.
Original Note:
Today's Communication / Plan
-
continue amio load, toprol, eliquis
EKG
GDMT as BP allows
po lasix
likely will need ICD, timing to be determined, likely as OP
thyroid correction
Impression / Plan
-
Primary Supervisor [employer]: Dr. Onofre
Assessment:
Acute limb ischemia with R iliac artery occlusion s/p thromboembolectomy of right iliac system, right superficial femoral artery, popliteal artery, profunda femoral artery 10/29/2024
Atrial fibrillation with RVR
Hypotension requiring pressors
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
Persistent atrial fibrillation, first discovered July 2023
Chronic OAC with eliquis
Chronic HFrEF
Tachycardia mediated cardiomyopathy
nsvt
Hyperthyroidism
Noncompliance
Depression
History of ETOH and tobacco abuse
Obesity
ECHO 04/04/2024: EF 10 to 15%, severe global hypokinesis, mild MR, trace TR, PAP 30 to 33 mmHg
Cardiac catheterization 05/22/2024: Nonobstructive coronary disease with normal to mildly elevated right and left-sided filling pressures with normal cardiac output
Echocardiogram 10/30/2024: Severely dilated left ventricle, severely reduced LV systolic function, global hypokinesis with ejection fraction of 5-10%, moderate to severe eccentric TR with PA pressure of 30-35 mmHg, small pericardial effusion.
Plan:
-Heart rate trends improving. Continue amiodarone loading with 400 mg 3 times daily. Continue Toprol 25 mg twice daily, unlikely able to uptitrate due to relative hypotension
-repeat EKG to assess QTc on amio
-continue eliquis. discussed importance of this medication given now 2 episodes of thromboembolic events.
-EF 5 to 10% by echo this admission, which is longstanding and nonischemic. Suspected tachycardia contributing.
-Guideline directed medical therapy will be limited by patient noncompliance as well as by hypotension. Continue SGLT2
-proBNP 5130. Prior outpatient Lasix dose 40 mg p.o. twice daily has been resumed
-Will likely need eventual ICD, timing to be discussed with the EP
-Thyroid correction per primary service-methimazole has been increased
-Continue postoperative care status post right lower extremity thromboembolectomy
Progress Note - Supervisor Home [employer]
Subjective
Date of Service: November 02, 2024
Without complaints
Objective
Labs:
11/02/24 05:29
11/02/24 05:29
Labs
Hgb 15.4 g/dL (13.0-18.0) 11/02/24 05:29
Hct 48.0 % (39.0-52.0) 11/02/24 05:29
Plt Count 221 10^3/uL (130-400) 11/02/24 05:29
APTT Cancelled 10/31/24 16:30
Sodium 137 mmol/L (135-145) 11/02/24 05:29
Potassium 3.8 mmol/L (3.5-5.1) 11/02/24 05:29
BUN 31 mg/dl (9-20) H 11/02/24 05:29
Creatinine 0.9 mg/dL (0.7-1.3) 11/02/24 05:29
Glucose 106 mg/dl (70-99) H 11/02/24 05:29
Vital Signs and I&O:
Vital Signs
Temp Pulse Resp BP Pulse Ox
98.4 F 101 17 114/75 97
11/02/24 07:06 11/02/24 07:06 11/02/24 07:06 11/02/24 07:06 11/02/24 07:06
Vital Signs
Temp Pulse Resp BP Pulse Ox
98.4 F 101 17 114/75 97
11/02/24 07:06 11/02/24 07:06 11/02/24 07:06 11/02/24 07:06 11/02/24 07:06
Intake & Output
10/30/24 10/31/24 11/01/24 11/02/24
07:59 07:59 07:59 07:59
Intake Total 832.4 / 896.2 1058.6 / 1091.6 3593 / 3593 910 / 910
Output Total 855 / 905 3282 / 3357 4594 / 4594 700 / 700
Balance -22.6 / -8.8 -2223.4 / -2265.4 -1001 / -1001 210 / 210
Physical Exam
Physical Exam
GEN: No distress, awake, alert, oriented x3
HEENT: supple, anicteric, mmm, eomi
LUNGS: CTA B/L, no wheezes
CV: Irreg, S1/S2
ABD: soft, BS+, NT/ND
EXT: No cyanosis, clubbing. 1+ edema of B/L LE
NEURO: Gross non-focal
SKIN: Warm, pink, dry. No rash
[2024-11-02] MEDS: KCL 20 MEQ PO (09:07)
[2024-11-02] MEDS: PACERONE 400 MG PO ×3 (09:07→22:07)
[2024-11-02] MEDS: FARXIGA 10 MG PO (09:08)
[2024-11-02] MEDS: LASIX 40 MG PO ×2 (09:08→16:32)
[2024-11-02] MEDS: TOPROL XL 25 MG PO (09:08)
[2024-11-02] MEDS: ELIQUIS 5 MG PO ×2 (09:08→20:36)
[2024-11-02] MEDS: TAPAZOLE 10 MG PO ×2 (09:09→20:36)
--- NOTE | 2024-11-02 11:23 | PTOTSP ---
pt currently demonstrates ability to complete simple ADLs, functional transfers, ambulation with supervision to no assistance. no acute OT needs identified at this time, will sign off.
--- NOTE | 2024-11-02 12:18 | W.PN.HOSP.TC ---
Today's Communication/Plan
-
Monitor vital signs see plan
Monitor LFTs closely
Continue with Amio
cw lasix
Assessment / Plan
Assessment / Plan
Mr. Buster Velazquez is a 59 yo man with hx paroxysmal afib, HFrEF, prior LLE embolism/ischemia presents to the ER with new onset RLE pain found to have complete occlusion right iliac artery s/p emergent OR for re-vascularization. He was also noted to
be in rapid afib.
10/29/24
Procedure:
1. Thromboembolectomy of right iliac system from right femoral artery exposure
2. Thromboembolectomy of right superficial femoral artery, popliteal artery and profunda femoral artery from right femoral artery exposure
Chest x-ray reviewed by me left lower lobe opacity
# Fever treat as aspiration pneumonia left lower lobe opacity
Agree with Unasyn
Last day 11/05
# Shock unclear reason possibly cardiogenic-off pressors
# Abnormal LFTs-possible shock liver. Follow. especially with amio load
#Limb-Threatening Ischemia of the RLE
-Thromboembolic Occlusion of the Right Iliac Artery
-s/p R Femoral artery cut down, thrombectomy of right iliac system proximally and SFA/profunda distally - 10/29
-PVD with history of thrombectomy June 2023
-Post-op Vascular protocols
-Heparin switched to Eliquis
Patient with follow-up with vascular surgery outpatient
#VDRF for acute hypoxic respiratory failure and hypercapnic respiratory failure
- Patient is currently extubated doing well on nasal cannula oxygen; now off oxygen
# Metabolic acidosis-lactic acidosis secondary to hypoperfusion-improved
# Paroxysmal Atrial Fibrillation with Rapid Ventricular Response
-History of cardioversion in the past
- Rates into the 180s at times on presentation
- IV diltiazem off; metoprolol 25 mg twice daily and also amiodarone 400 mg 3 times daily started
- Eliquis
- Cardiology following.
# Chronic HFrEF
-Echo 10/30/2024-LV severely dilated. Mild concentric LVH. Severely reduced LV systolic function. Global hypokinesis. EF 5 to 10%. Stage II diastolic dysfunction. Normal RV size and function. Mild MR. Moderate to severe TR. Pulmonary artery
pressure 30 to 35 mmHg. Small pericardial effusion.
- Patient does not appear grossly volume overloaded at present.
- GDMT . Continue SGLT2 inhibitors. Continue beta-blockers
- Follow I/Os, daily weights
-Continue Lasix 40 mg p.o. twice daily
- BNP - while elevated at 5640 - is significantly lower than prior at 23k.
-Patient has not followed up for ICD evaluation. ICD consideration by cardiology
# Hypocalcemia-replace as needed
# Hyperthyroidism
- Free T4 is elevated at present indicating poor control.
- Continue methimazole
# Morbid Obesity due to excess calories
- Affects all aspects of care.
- Encourage healthy diet and increased activity with goal of weight loss.
# Medical Non-Compliance- Patient with documented history of poor compliance.
# History of alcohol abuse in the past
# Prediabetes-hemoglobin A1c 6.0-was 6.3 earlier
# Microscopic hematuria
# Fatty infiltration of the liver according to CAT scan
# Diverticulosis
# Ex Smoker
# DVT Prophylaxis: Eliquis
# Code Status: Full
General: No acute distress
HEENT: PERRLA
Respiratory: Clear to Auscultation
Cardiac: Regular Rhythm and S1/S2
GI: Soft and Nontender
Skin: Warm and Dry; Negative Rash
Psych: Calm
Anticipated Discharge: 24 - 48 hours
Subjective/Interval History
-
Date of Service: November 02, 2024
Denies pain
Objective Data
-
Labs:
Laboratory Results
11/02/24
05:29
WBC 12.7 H
Hgb 15.4
Hct 48.0
Plt Count 221
Sodium 137
Potassium 3.8
Chloride 100
Carbon Dioxide 31 H
BUN 31 H
Creatinine 0.9
Glucose 106 H
Calcium 8.7
Total Bilirubin 2.8 H
AST 342 H
ALT 433 H
Alkaline Phosphatase 114
Vital Signs:
Vital Signs
Temp Pulse Resp BP Pulse Ox
98 F 88 17 115/89 98
11/02/24 11:10 11/02/24 11:10 11/02/24 11:10 11/02/24 11:10 11/02/24 11:10
I&O
11/01/24 11/02/24 11/03/24
06:59 06:59 06:59
Intake Total 2936 / 3176 1600 / 1600
Output Total 4469 / 4469 900 / 900
Balance -1533 / -1293 700 / 700
--- NOTE | 2024-11-02 14:23 | CM ---
Chart reviewed
PT/OT evals - no needs
Following labs
Plan - home with anticipated no needs when medically stable
[2024-11-02] MEDS: TOPROL XL 50 MG PO (20:35)
[2024-11-03] VITALS (8 sets, daily range): BP systolic 92–129; BP diastolic 58–83; BMI 37.6
[2024-11-03] MEDS: UNASYN IV ×4 (04:19→21:44)
[2024-11-03 05:34] LABS: % Basophils 0.1 % (0-2); % Eosinophils 0.5 % (0-6); % Immature Granulocytes 1.5 % (0-0.5); % Lymphocytes 11.8 % (20.5-51.1); % Monocytes 11.4 % (1.7-9.3); % Neutrophils 74.7 % (42.2-75.2); Absolute Eosinophils 0.1 10^3/uL (0-0.7); Absolute Immature Granulocytes 0.2 10^3/uL (0-0.05); Absolute Lymphocytes 1.2 10^3/uL (1.2-3.4); Absolute Monocytes 1.2 10^3/uL (0.1-0.6); Absolute Neutrophils 7.9 10^3/uL (1.4-6.5); Hematocrit 48.1 % (39.0-52.0); Hemoglobin 15.8 g/dL (13.0-18.0); Mean Corp Hgb Conc. 32.8 g/dL (33.0-37.0); Mean Corpuscular Hgb 31.7 pg (27.0-31.0); Mean Corpuscular Volume 96.4 fL (80.0-94.0); Mean Platelet Volume 10.2 fL (7.4-10.4); Nucleated Red Blood Cells % 0 % (-); Platelet Count 232 10^3/uL (130-400); Red Blood Cell Count 4.99 10^6/uL (4.70-6.10); Red Cell Dist. Width 15.6 % (11.5-14.5); White Blood Cell Count 10.5 10^3/uL (4.8-10.8)
[2024-11-03 06:02] LABS: ALT (SGPT) 370 U/L (0-50); AST (SGOT) 188 U/L (17-59); Albumin 3.5 g/dl (3.5-5.0); Alkaline Phosphatase 131 U/L (38-126); Blood Urea Nitrogen 29 mg/dl (9-20); Calcium 8.7 mg/dl (8.4-10.2); Carbon Dioxide 28 mmol/L (22-30); Chloride 100 mmol/L (98-107); Estimated Creatinine Clearance 109 ml/min; Glucose 114 mg/dl (70-99); Potassium 4.1 mmol/L (3.5-5.1); Sodium 136 mmol/L (135-145); Total Bilirubin 2.7 mg/dl (0.2-1.3); eGFR > 60.00
[2024-11-03] MEDS: FARXIGA 10 MG PO (08:13)
[2024-11-03] MEDS: TAPAZOLE 10 MG PO ×2 (08:13→19:28)
[2024-11-03] MEDS: PACERONE 400 MG PO ×3 (08:13→21:44)
[2024-11-03] MEDS: ELIQUIS 5 MG PO ×2 (08:14→19:28)
[2024-11-03] MEDS: LASIX 40 MG PO ×2 (08:14→15:55)
[2024-11-03] MEDS: TOPROL XL 50 MG PO (08:15)
[2024-11-03] MEDS: KCL 20 MEQ PO (08:16)
--- NOTE | 2024-11-03 10:24 | W.PN.CARDCBS ---
Today's Communication / Plan
-
Continue amiodarone load. Repeat EKG in AM. QTc borderline but acceptable. Likely will decrease amiodarone dose in AM.
Increase Toprol to 75 mg p.o. every 12 for tonight.
Continue Lasix 40 mg p.o. twice daily. Continue Farxiga.
He has not on Entresto due to borderline blood pressure.
Eventually would recommend repeat LUIS ENRIQUE cardioversion once he heals from his thrombectomy. Another option long-term would be ablation.
Will discuss ICD as outpatient.
Impression / Plan
-
Primary Manager Nursing Home: Dr. Onofre
Assessment:
Acute limb ischemia with R iliac artery occlusion s/p thromboembolectomy of right iliac system, right superficial femoral artery, popliteal artery, profunda femoral artery 10/29/2024
Atrial fibrillation with RVR
Hypotension requiring pressors
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
Persistent atrial fibrillation, first discovered July 2023
Chronic OAC with eliquis
Chronic HFrEF
Tachycardia mediated cardiomyopathy
nsvt
Hyperthyroidism
Noncompliance
Depression
History of ETOH and tobacco abuse
Obesity
ECHO 04/04/2024: EF 10 to 15%, severe global hypokinesis, mild MR, trace TR, PAP 30 to 33 mmHg
Cardiac catheterization 05/22/2024: Nonobstructive coronary disease with normal to mildly elevated right and left-sided filling pressures with normal cardiac output
Echocardiogram 10/30/2024: Severely dilated left ventricle, severely reduced LV systolic function, global hypokinesis with ejection fraction of 5-10%, moderate to severe eccentric TR with PA pressure of 30-35 mmHg, small pericardial effusion.
Plan:
-Continue amiodarone load. QTc 512 but acceptable. Continue higher dose of Toprol 50 mg p.o. twice daily. May need to further titrate to 75 p.o. twice daily.
-continue eliquis. discussed importance of this medication given now 2 episodes of thromboembolic events.
-EF 5 to 10% by echo this admission, which is longstanding and nonischemic. Suspected tachycardia contributing.
-Would eventually consider cardioversion once on amiodarone for a period of time. Another option would be ablation.
-Guideline directed medical therapy will be limited by patient noncompliance as well as by hypotension. His blood pressure is stable on higher dose of Toprol could consider Entresto. Continue SGLT2
-proBNP 5130. Prior outpatient Lasix dose 40 mg p.o. twice daily has been resumed
-Will likely need eventual ICD, timing to be discussed with the EP
-Thyroid correction per primary service-methimazole has been increased
-Continue postoperative care status post right lower extremity thromboembolectomy
Progress Note - Manager Nursing Home
Subjective
Date of Service: November 03, 2024
Feeling better. Leg pains are improved. Still in A-fib with modestly elevated rates.
Objective
Labs:
11/03/24 04:35
11/03/24 04:35
Labs
Hgb 15.8 g/dL (13.0-18.0) 11/03/24 04:35
Hct 48.1 % (39.0-52.0) 11/03/24 04:35
Plt Count 232 10^3/uL (130-400) 11/03/24 04:35
APTT Cancelled 10/31/24 16:30
Sodium 136 mmol/L (135-145) 11/03/24 04:35
Potassium 4.1 mmol/L (3.5-5.1) 11/03/24 04:35
BUN 29 mg/dl (9-20) H 11/03/24 04:35
Creatinine 1.0 mg/dL (0.7-1.3) 11/03/24 04:35
Glucose 114 mg/dl (70-99) H 11/03/24 04:35
Vital Signs and I&O:
Vital Signs
Temp Pulse Resp BP Pulse Ox
98.0 F 83 16 119/58 97
11/03/24 07:05 11/03/24 08:15 11/03/24 07:05 11/03/24 08:15 11/03/24 07:05
Vital Signs
Temp Pulse Resp BP Pulse Ox
98.0 F 83 16 119/58 97
11/03/24 07:05 11/03/24 08:15 11/03/24 07:05 11/03/24 08:15 11/03/24 07:05
Intake & Output
11/01/24 11/02/24 11/03/24 11/04/24
06:59 06:59 06:59 06:59
Intake Total 2936 / 3176 1600 / 1600 520 / 520
Output Total 4469 / 4469 900 / 900
Balance -1533 / -1293 700 / 700 520 / 520
Physical Exam
Physical Exam
GEN: No distress, awake, Ox3
HEENT: supple, anicteric, mmm
LUNGS: CTA, no wheezes/rales
CV: irreg, S1/S2, 1/6 syst LSB, no gallop
ABD: soft, BS+, NT/ND
EXT: No edema
NEURO: Gross non-focal
SKIN: No rash
--- NOTE | 2024-11-03 10:47 | CM ---
Patient seen at bedside. Concerns expressed about cost of medications as he had just signed up for insurance with his job [employer] and [employer] to assess. CM will continue to follow for discharge planning needs.
Plan; [employer] to assess for [facility].
--- NOTE | 2024-11-03 12:09 | W.PN.HOSP.TC ---
Today's Communication/Plan
-
Monitor vital signs see plan
Continue to monitor LFTs
Increase Toprol
Continue Amio
Assessment / Plan
Assessment / Plan
Mr. Buster Velazquez is a 59 yo man with hx paroxysmal afib, HFrEF, prior LLE embolism/ischemia presents to the ER with new onset RLE pain found to have complete occlusion right iliac artery s/p emergent OR for re-vascularization. He was also noted to
be in rapid afib.
10/29/24
Procedure:
1. Thromboembolectomy of right iliac system from right femoral artery exposure
2. Thromboembolectomy of right superficial femoral artery, popliteal artery and profunda femoral artery from right femoral artery exposure
Chest x-ray reviewed by me left lower lobe opacity
# Fever treat as aspiration pneumonia left lower lobe opacity
Agree with Unasyn
Last day 11/05
# Shock unclear reason possibly cardiogenic-off pressors
# Abnormal LFTs-possible shock liver. Follow. especially with amio load
if LFT's dont come down then check US abdomen
#Limb-Threatening Ischemia of the RLE
-Thromboembolic Occlusion of the Right Iliac Artery
-s/p R Femoral artery cut down, thrombectomy of right iliac system proximally and SFA/profunda distally - 10/29
-PVD with history of thrombectomy June 2023
-Post-op Vascular protocols
-Heparin switched to Eliquis
Patient with follow-up with vascular surgery outpatient
#VDRF for acute hypoxic respiratory failure and hypercapnic respiratory failure
- Patient is currently extubated doing well on nasal cannula oxygen; now off oxygen
# Metabolic acidosis-lactic acidosis secondary to hypoperfusion-improved
# Paroxysmal Atrial Fibrillation with Rapid Ventricular Response
-History of cardioversion in the past
- Rates into the 180s at times on presentation
- IV diltiazem off; metoprolol 25 mg twice daily and also amiodarone load; Toprol increased
- Eliquis
- Cardiology following.
# Chronic HFrEF
-Echo 10/30/2024-LV severely dilated. Mild concentric LVH. Severely reduced LV systolic function. Global hypokinesis. EF 5 to 10%. Stage II diastolic dysfunction. Normal RV size and function. Mild MR. Moderate to severe TR. Pulmonary artery
pressure 30 to 35 mmHg. Small pericardial effusion.
- Patient does not appear grossly volume overloaded at present.
- GDMT . Continue SGLT2 inhibitors. Continue beta-blockers
- Follow I/Os, daily weights
-Continue Lasix 40 mg p.o. twice daily
- BNP - while elevated at 5640 - is significantly lower than prior at 23k.
-Patient has not followed up for ICD evaluation. ICD consideration by cardiology
# Hypocalcemia-replace as needed
# Hyperthyroidism
- Free T4 is elevated at present indicating poor control.
- Continue methimazole
# Morbid Obesity due to excess calories
- Affects all aspects of care.
- Encourage healthy diet and increased activity with goal of weight loss.
# Medical Non-Compliance- Patient with documented history of poor compliance.
# History of alcohol abuse in the past
# Prediabetes-hemoglobin A1c 6.0-was 6.3 earlier
# Microscopic hematuria
# Fatty infiltration of the liver according to CAT scan
# Diverticulosis
# Ex Smoker
# DVT Prophylaxis: Eliquis
# Code Status: Full
General: No acute distress
HEENT: PERRLA
Respiratory: Clear to Auscultation
Cardiac: Regular Rhythm and S1/S2
GI: Soft and Nontender
Skin: Warm and Dry; Negative Rash
Psych: Calm
Anticipated Discharge: 24 - 48 hours
Subjective/Interval History
-
Date of Service: November 03, 2024
denies nausea
Objective Data
-
Labs:
Laboratory Results
11/03/24
04:35
WBC 10.5
Hgb 15.8
Hct 48.1
Plt Count 232
Sodium 136
Potassium 4.1
Chloride 100
Carbon Dioxide 28
BUN 29 H
Creatinine 1.0
Glucose 114 H
Calcium 8.7
Total Bilirubin 2.7 H
AST 188 H
ALT 370 H
Alkaline Phosphatase 131 H
Vital Signs:
Vital Signs
Temp Pulse Resp BP Pulse Ox
97.6 F 87 16 129/68 99
11/03/24 11:12 11/03/24 11:12 11/03/24 11:12 11/03/24 11:12 11/03/24 11:12
I&O
11/02/24 11/03/24 11/04/24
06:59 06:59 06:59
Intake Total 1600 / 1600 520 / 520
Output Total 900 / 900
Balance 700 / 700 520 / 520
[2024-11-03] MEDS: TOPROL XL 75 MG PO (20:41)
[2024-11-04] VITALS (7 sets, daily range): BP systolic 94–133; BP diastolic 60–86; PULSE 98; O2SAT 98; BMI 38.0
[2024-11-04] MEDS: UNASYN IV ×4 (04:32→21:30)
[2024-11-04 06:31] LABS: % Basophils 0.2 % (0-2); % Eosinophils 0.6 % (0-6); % Immature Granulocytes 0.6 % (0-0.5); % Lymphocytes 12.2 % (20.5-51.1); % Monocytes 9.4 % (1.7-9.3); Absolute Eosinophils 0.1 10^3/uL (0-0.7); Absolute Immature Granulocytes 0.1 10^3/uL (0-0.05); Absolute Lymphocytes 1.2 10^3/uL (1.2-3.4); Absolute Neutrophils 7.8 10^3/uL (1.4-6.5); Hematocrit 49.2 % (39.0-52.0); Hemoglobin 15.8 g/dL (13.0-18.0); Mean Corp Hgb Conc. 32.1 g/dL (33.0-37.0); Mean Corpuscular Hgb 30.9 pg (27.0-31.0); Mean Corpuscular Volume 96.1 fL (80.0-94.0); Nucleated Red Blood Cells % 0 % (-); Platelet Count 270 10^3/uL (130-400); Red Blood Cell Count 5.12 10^6/uL (4.70-6.10); Red Cell Dist. Width 15.3 % (11.5-14.5); White Blood Cell Count 10.1 10^3/uL (4.8-10.8)
[2024-11-04 07:03] LABS: ALT (SGPT) 272 U/L (0-50); AST (SGOT) 74 U/L (17-59); Albumin 3.7 g/dl (3.5-5.0); Alkaline Phosphatase 125 U/L (38-126); Blood Urea Nitrogen 30 mg/dl (9-20); Calcium 8.8 mg/dl (8.4-10.2); Carbon Dioxide 24 mmol/L (22-30); Chloride 100 mmol/L (98-107); Estimated Creatinine Clearance 98 ml/min; Glucose 121 mg/dl (70-99); Potassium 4.1 mmol/L (3.5-5.1); Sodium 135 mmol/L (135-145); Total Protein 6.4 g/dl (6.3-8.2); eGFR > 60.00
[2024-11-04] MEDS: PACERONE 400 MG PO ×3 (08:43→21:31)
[2024-11-04] MEDS: LASIX 40 MG PO ×2 (08:44→15:33)
[2024-11-04] MEDS: TAPAZOLE 10 MG PO ×2 (08:44→20:22)
[2024-11-04] MEDS: KCL 20 MEQ PO (08:44)
[2024-11-04] MEDS: TOPROL XL 75 MG PO ×2 (08:44→22:53)
[2024-11-04] MEDS: ELIQUIS 5 MG PO ×2 (08:44→20:22)
[2024-11-04] MEDS: FARXIGA 10 MG PO (08:45)
--- NOTE | 2024-11-04 10:12 | W.PN.CARDCBS ---
Today's Communication / Plan
-
-Continue amiodarone load 400mg TID and likely transition to 200 mg BID next 24 hrs.
Monitor QTc. Prior QTc 512 but acceptable.
Continue higher dose of Toprol 75 mg p.o. twice daily. HR improved
-Continue Eliquis. discussed importance of this medication given now 2 episodes of thromboembolic events. Some hx of noncompliance
-EF 5 to 10% by echo this admission, which is longstanding and nonischemic. Suspected tachycardia contributing.
-Add Entresto
-Would eventually consider cardioversion as outpt if remains in aFib. Could eventually consider PVI given tachy-induced CM.
-Guideline directed medical therapy will be limited by patient noncompliance as well as by hypotension.
-Continue SGLT2
-proBNP 5130. Prior outpatient Lasix dose 40 mg p.o. twice daily has been resumed
-Will likely need eventual ICD, timing to be discussed with the EP
-Thyroid correction per primary service-methimazole has been increased
-Continue postoperative care status post right lower extremity thromboembolectomy
Impression / Plan
-
.
Primary Remote Broadcast Engineer: Dr. Onofre
Impression:
Acute limb ischemia with R iliac artery occlusion s/p thromboembolectomy of right iliac system, right superficial femoral artery, popliteal artery, profunda femoral artery 10/29/2024
Atrial fibrillation with RVR
Hypotension requiring pressors, improved
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
Persistent atrial fibrillation, first discovered July 2023
-Chronic OAC with eliquis
Chronic HFrEF
Tachycardia mediated cardiomyopathy
NSVT
Hyperthyroidism
Noncompliance
Depression
Hx ETOH and tobacco abuse
Obesity
ECHO 04/04/2024: EF 10 to 15%, severe global hypokinesis, mild MR, trace TR, PAP 30 to 33 mmHg
Cardiac catheterization 05/22/2024: Nonobstructive coronary disease with normal to mildly elevated right and left-sided filling pressures with normal cardiac output
Echocardiogram 10/30/2024: Severely dilated left ventricle, severely reduced LV systolic function, global hypokinesis with ejection fraction of 5-10%, moderate to severe eccentric TR with PA pressure of 30-35 mmHg, small pericardial effusion.
Plan:
-Continue amiodarone load 400mg TID and likely transition to 200 mg BID next 24 hrs.
Monitor QTc. Prior QTc 512 but acceptable.
Continue higher dose of Toprol 75 mg p.o. twice daily. HR improved
-Continue Eliquis. discussed importance of this medication given now 2 episodes of thromboembolic events. Some hx of noncompliance
-EF 5 to 10% by echo this admission, which is longstanding and nonischemic. Suspected tachycardia contributing.
-Add Entresto
-Would eventually consider cardioversion as outpt if remains in aFib. Could eventually consider PVI given tachy-induced CM.
-Guideline directed medical therapy will be limited by patient noncompliance as well as by hypotension.
-Continue SGLT2
-proBNP 5130. Prior outpatient Lasix dose 40 mg p.o. twice daily has been resumed
-Will likely need eventual ICD, timing to be discussed with the EP
-Thyroid correction per primary service-methimazole has been increased
-Continue postoperative care status post right lower extremity thromboembolectomy
Progress Note - Remote Broadcast Engineer
Subjective
Date of Service: November 04, 2024
Pt seen and examined. Complaints of fatigue. No chest pain
Objective
Labs:
11/04/24 06:10
11/04/24 06:10
Labs
Hgb 15.8 g/dL (13.0-18.0) 11/04/24 06:10
Hct 49.2 % (39.0-52.0) 11/04/24 06:10
Plt Count 270 10^3/uL (130-400) 11/04/24 06:10
APTT Cancelled 10/31/24 16:30
Sodium 135 mmol/L (135-145) 11/04/24 06:10
Potassium 4.1 mmol/L (3.5-5.1) 11/04/24 06:10
BUN 30 mg/dl (9-20) H 11/04/24 06:10
Creatinine 1.1 mg/dL (0.7-1.3) 11/04/24 06:10
Glucose 121 mg/dl (70-99) H 11/04/24 06:10
Vital Signs and I&O:
Vital Signs
Temp Pulse Resp BP Pulse Ox
98.2 F 102 16 133/82 96
11/04/24 07:00 11/04/24 07:00 11/04/24 07:00 11/04/24 07:00 11/04/24 07:00
Vital Signs
Temp Pulse Resp BP Pulse Ox
98.2 F 102 16 133/82 96
11/04/24 07:00 11/04/24 07:00 11/04/24 07:00 11/04/24 07:00 11/04/24 07:00
Intake & Output
11/02/24 11/03/24 11/04/24 11/05/24
06:59 06:59 06:59 06:59
Intake Total 1600 / 1600 520 / 520 1740 / 1740
Output Total 900 / 900
Balance 700 / 700 520 / 520 1740 / 1740
Physical Exam
Physical Exam
General: No acute distress, AAOX3
Neck: Negative JVD
Heart: Irregularly irregular, Negative S3 positive S1/S2, Negative S4, No murmur
Lungs: CTA b/l, negative wheezes/rales/rhonchi
Abd: Positive BS, NT/ND, neg rebound/rigidity/guarding
Ext: Negative cyanosis/clubbing/edema
Neuro: nonfocal
--- NOTE | 2024-11-04 11:17 | W.PN.HOSP.TC ---
Today's Communication/Plan
-
Monitor vital signs see plan
Continue with metoprolol, amiodarone
Tigan if needed for nausea
Check ultrasound abdomen
Continue with Lasix
Monitor LFTs
Assessment / Plan
Assessment / Plan
Mr. Buster Velazquez is a 59 yo man with hx paroxysmal afib, HFrEF, prior LLE embolism/ischemia presents to the ER with new onset RLE pain found to have complete occlusion right iliac artery s/p emergent OR for re-vascularization. He was also noted to
be in rapid afib.
10/29/24
Procedure:
1. Thromboembolectomy of right iliac system from right femoral artery exposure
2. Thromboembolectomy of right superficial femoral artery, popliteal artery and profunda femoral artery from right femoral artery exposure
Chest x-ray reviewed by me left lower lobe opacity
# Fever treat as aspiration pneumonia left lower lobe opacity
cw Unasyn
Last day 11/05
# Shock unclear reason possibly cardiogenic-off pressors
# Abnormal LFTs-possible shock liver. Follow. especially with amio load
check US abdomen
#Limb-Threatening Ischemia of the RLE
-Thromboembolic Occlusion of the Right Iliac Artery
-s/p R Femoral artery cut down, thrombectomy of right iliac system proximally and SFA/profunda distally - 10/29
-PVD with history of thrombectomy June 2023
-Post-op Vascular protocols
-Heparin switched to Eliquis
Patient with follow-up with vascular surgery outpatient
#VDRF for acute hypoxic respiratory failure and hypercapnic respiratory failure
- Patient is currently extubated doing well on nasal cannula oxygen; now off oxygen
# Metabolic acidosis-lactic acidosis secondary to hypoperfusion-improved
# Paroxysmal Atrial Fibrillation with Rapid Ventricular Response
-History of cardioversion in the past
- Rates into the 180s at times on presentation
HR now still elevated especially upon ambulation
- IV diltiazem off; metoprolol 75 mg twice daily and also amiodarone load; now on Entresto
- Eliquis
- Cardiology following.
# Chronic HFrEF
-Echo 10/30/2024-LV severely dilated. Mild concentric LVH. Severely reduced LV systolic function. Global hypokinesis. EF 5 to 10%. Stage II diastolic dysfunction. Normal RV size and function. Mild MR. Moderate to severe TR. Pulmonary artery
pressure 30 to 35 mmHg. Small pericardial effusion.
- Patient does not appear grossly volume overloaded at present.
- GDMT . Continue SGLT2 inhibitors. Continue beta-blockers
- Follow I/Os, daily weights
-Continue Lasix 40 mg p.o. twice daily
- BNP - while elevated at 5640 - is significantly lower than prior at 23k.
-Patient has not followed up for ICD evaluation. ICD consideration by cardiology but likely outpatient
# Hypocalcemia-replace as needed
# Hyperthyroidism
- Free T4 is elevated at present indicating poor control.
- Continue methimazole
# Morbid Obesity due to excess calories
- Affects all aspects of care.
- Encourage healthy diet and increased activity with goal of weight loss.
# Medical Non-Compliance- Patient with documented history of poor compliance.
# History of alcohol abuse in the past
# Prediabetes-hemoglobin A1c 6.0-was 6.3 earlier
# Microscopic hematuria
# Fatty infiltration of the liver according to CAT scan
# Diverticulosis
# Ex Smoker
# DVT Prophylaxis: Eliquis
# Code Status: Full
General: No acute distress
HEENT: PERRLA
Respiratory: Clear to Auscultation
Cardiac: Regular Rhythm and S1/S2
GI: Soft and Nontender
Skin: Warm and Dry; Negative Rash
Psych: Calm
I spent a total of 52 minutes with the patient or on the floor. More than 50% of this time involved counseling and coordination of care.
Anticipated Discharge: 24 - 48 hours
Subjective/Interval History
-
Date of Service: November 04, 2024
denies pain
Objective Data
-
Labs:
Laboratory Results
11/04/24
06:10
WBC 10.1
Hgb 15.8
Hct 49.2
Plt Count 270
Sodium 135
Potassium 4.1
Chloride 100
Carbon Dioxide 24
BUN 30 H
Creatinine 1.1
Glucose 121 H
Calcium 8.8
Total Bilirubin 3.0 H
AST 74 H
ALT 272 H
Alkaline Phosphatase 125
Vital Signs:
Vital Signs
Temp Pulse Resp BP Pulse Ox
98.2 F 102 16 133/82 96
11/04/24 07:00 11/04/24 07:00 11/04/24 07:00 11/04/24 07:00 11/04/24 07:00
I&O
11/03/24 11/04/24 11/05/24
06:59 06:59 06:59
Intake Total 520 / 520 1740 / 1740
Balance 520 / 520 1740 / 1740
[2024-11-04] MEDS: TIGAN 200 MG IM (11:38)
[2024-11-04] MEDS: ENTRESTO 24 MG/26 MG 1 TAB PO (11:38)
--- NOTE | 2024-11-04 12:40 | PTCARENOTE ---
Pt c/o SOB and chest tightness x2 within 20 minutes. Evaluation of patient visibly SOB, satting 100% on RA, diminished lung sounds throughout, no wheezing noted. BP 129/91, HR 77. Dr. Strauss and Dr. Kirkland notified. Dr. Strauss ordered EKG and chest
x-ray. EKG completed, awaiting CXR. Dr. Pickett came to evaluate patient at bedside, recommended BNP and Troponin; Dr. Strauss ordered. SOB and chest tightness immediately resolved. Patient placed on 1L NC for comfort. Care ongoing.
[2024-11-04 15:13] LABS: NT-proBNP 9190 pg/ml; Troponin I 0.029 ng/ml
[2024-11-04] MEDS: ENTRESTO 24 MG/26 MG PO (20:57)
--- NOTE | 2024-11-04 22:47 | W.PN.UPDATE ---
Update Note
Progress Note Update
bp tonight on soft side sbp 90s-low 100s HR 70s
will add parameters to shannono and thad
[2024-11-04] MEDS: NICODERM TRANSDERMAL 14 MG TRANSDERM (23:25)
[2024-11-05] MEDS: NICODERM TRANSDERMAL 7 MG TRANSDERM (01:36)
[2024-11-05 03:00] VITALS: BP 104/77
[2024-11-05] MEDS: UNASYN IV ×2 (03:58→10:14)
[2024-11-05 06:00] VITALS: BMI 38.1
[2024-11-05 07:02] LABS: % Basophils 0.4 % (0-2); % Immature Granulocytes 0.5 % (0-0.5); % Lymphocytes 11.3 % (20.5-51.1); % Monocytes 9.3 % (1.7-9.3); % Neutrophils 77.5 % (42.2-75.2); Absolute Basophils 0.1 10^3/uL (0-0.2); Absolute Eosinophils 0.1 10^3/uL (0-0.7); Absolute Immature Granulocytes 0.1 10^3/uL (0-0.05); Absolute Lymphocytes 1.5 10^3/uL (1.2-3.4); Absolute Monocytes 1.2 10^3/uL (0.1-0.6); Hematocrit 50.4 % (39.0-52.0); Hemoglobin 16.4 g/dL (13.0-18.0); Mean Corp Hgb Conc. 32.5 g/dL (33.0-37.0); Mean Corpuscular Hgb 31.7 pg (27.0-31.0); Mean Corpuscular Volume 97.5 fL (80.0-94.0); Mean Platelet Volume 10.1 fL (7.4-10.4); Nucleated Red Blood Cells % 0 % (-); Platelet Count 287 10^3/uL (130-400); Red Blood Cell Count 5.17 10^6/uL (4.70-6.10); Red Cell Dist. Width 15.4 % (11.5-14.5); White Blood Cell Count 12.9 10^3/uL (4.8-10.8)
[2024-11-05 07:32] LABS: ALT (SGPT) 184 U/L (0-50); AST (SGOT) 43 U/L (17-59); Albumin 3.5 g/dl (3.5-5.0); Alkaline Phosphatase 136 U/L (38-126); Blood Urea Nitrogen 32 mg/dl (9-20); Calcium 8.7 mg/dl (8.4-10.2); Carbon Dioxide 29 mmol/L (22-30); Chloride 99 mmol/L (98-107); Estimated Creatinine Clearance 90 ml/min; Glucose 99 mg/dl (70-99); Potassium 4.5 mmol/L (3.5-5.1); Sodium 136 mmol/L (135-145); Total Bilirubin 2.3 mg/dl (0.2-1.3); eGFR > 60.00
[2024-11-05 08:08] VITALS: BP 114/61
[2024-11-05] MEDS: LASIX 40 MG PO (08:09)
[2024-11-05] MEDS: NICODERM TRANSDERMAL 21 MG TRANSDERM ×2 (08:09→16:32)
[2024-11-05] MEDS: ELIQUIS 5 MG PO ×2 (08:10→20:41)
[2024-11-05] MEDS: KCL 20 MEQ PO (08:10)
[2024-11-05] MEDS: TOPROL XL 75 MG PO ×2 (08:10→20:48)
[2024-11-05] MEDS: PACERONE 400 MG PO (08:11)
[2024-11-05] MEDS: ENTRESTO 24 MG/26 MG 1 TAB PO ×2 (08:11→20:47)
[2024-11-05] MEDS: TAPAZOLE 10 MG PO ×2 (08:11→20:41)
[2024-11-05] MEDS: FARXIGA 10 MG PO (08:11)
--- NOTE | 2024-11-05 11:40 | W.PN.CARDCBS ---
Today's Communication / Plan
-
Will start IV Lasix 40 mg IV twice daily for 24 hours.
Decrease amiodarone to 200 mg p.o. twice daily. QTc 532 ms
Continue higher dose of Toprol. Continue Entresto and Farxiga.
Long-term plan will be for repeat cardioversion versus ablation to try to restore sinus rhythm to help his cardiomyopathy.
Continue postop care for thrombectomy.
Impression / Plan
-
.
Primary Dog Or Animal Sitter: Dr. Onofre
Impression:
Acute limb ischemia with R iliac artery occlusion s/p thromboembolectomy of right iliac system, right superficial femoral artery, popliteal artery, profunda femoral artery 10/29/2024
Atrial fibrillation with RVR
Hypotension requiring pressors, improved
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
Persistent atrial fibrillation, first discovered July 2023
-Chronic OAC with eliquis
Chronic HFrEF
Tachycardia mediated cardiomyopathy
NSVT
Hyperthyroidism
Noncompliance
Depression
Hx ETOH and tobacco abuse
Obesity
ECHO 04/04/2024: EF 10 to 15%, severe global hypokinesis, mild MR, trace TR, PAP 30 to 33 mmHg
Cardiac catheterization 05/22/2024: Nonobstructive coronary disease with normal to mildly elevated right and left-sided filling pressures with normal cardiac output
Echocardiogram 10/30/2024: Severely dilated left ventricle, severely reduced LV systolic function, global hypokinesis with ejection fraction of 5-10%, moderate to severe eccentric TR with PA pressure of 30-35 mmHg, small pericardial effusion.
Plan:
-Continue amiodarone, transition to 200 mg BID next 24 hrs.
Monitor QTc. Prior QTc 512 but acceptable.
Continue higher dose of Toprol 75 mg p.o. twice daily. HR improved
-Continue Eliquis. discussed importance of this medication given now 2 episodes of thromboembolic events. Some hx of noncompliance
-EF 5 to 10% by echo this admission, which is longstanding and nonischemic. Suspected tachycardia contributing.
-Cont Entresto and watch for hypotension
-Would eventually consider cardioversion as outpt if remains in aFib. Could eventually consider PVI given tachy-induced CM.
-Guideline directed medical therapy will be limited by patient noncompliance as well as by hypotension.
-Continue SGLT2
-Events yesterday noted. proBNP is somewhat elevated. Will start IV Lasix for 24 hours to help diurese. LFTs are improving. Creatinine at 1.2
-Will likely need eventual ICD, timing to be discussed with the EP
-Thyroid correction per primary service-methimazole has been increased
-Continue postoperative care status post right lower extremity thromboembolectomy
Progress Note - Dog Or Animal Sitter
Subjective
Date of Service: November 05, 2024
breathing is improved. no chest pains
Objective
Labs:
11/05/24 05:58
11/05/24 05:58
Labs
Hgb 16.4 g/dL (13.0-18.0) 11/05/24 05:58
Hct 50.4 % (39.0-52.0) 11/05/24 05:58
Plt Count 287 10^3/uL (130-400) 11/05/24 05:58
APTT Cancelled 10/31/24 16:30
Sodium 136 mmol/L (135-145) 11/05/24 05:58
Potassium 4.5 mmol/L (3.5-5.1) 11/05/24 05:58
BUN 32 mg/dl (9-20) H 11/05/24 05:58
Creatinine 1.2 mg/dL (0.7-1.3) 11/05/24 05:58
Glucose 99 mg/dl (70-99) 11/05/24 05:58
Troponins
11/04/24
14:42
Troponin I 0.029
Vital Signs and I&O:
Vital Signs
Temp Pulse Resp BP Pulse Ox
97.9 F 95 18 114/61 96
11/05/24 08:08 11/05/24 08:10 11/05/24 08:08 11/05/24 08:11 11/05/24 08:08
Vital Signs
Temp Pulse Resp BP Pulse Ox
97.9 F 95 18 114/61 96
11/05/24 08:08 11/05/24 08:10 11/05/24 08:08 11/05/24 08:11 11/05/24 08:08
Intake & Output
11/03/24 11/04/24 11/05/24 11/06/24
06:59 06:59 06:59 06:59
Intake Total 520 / 520 1740 / 1740 480 / 480
Balance 520 / 520 1740 / 1740 480 / 480
Physical Exam
Physical Exam
GEN: No distress, awake, Ox3
HEENT: supple, anicteric, mmm
LUNGS: CTA, no wheezes/rales
CV: Irreg, S1/S2, 1/6 syst LSB, S3+
ABD: soft, BS+, NT/ND
EXT: trace edema
NEURO: Gross non-focal
SKIN: No rash
[2024-11-05] MEDS: LASIX 40 MG IV ×2 (12:20→16:12)
[2024-11-05 12:35] VITALS: BP 100/63
--- NOTE | 2024-11-05 13:02 | W.PN.HOSP.TC ---
Today's Communication/Plan
-
see A/P
Assessment / Plan
Assessment / Plan
HPI: 59 yo man with PMH paroxysmal afib, HFrEF, prior LLE embolism/ischemia; presented with new onset RLE pain and was found to have complete occlusion right iliac artery s/p emergent OR for re-vascularization. He was also noted to be in rapid
afib.
10/29/24
1. Thromboembolectomy of right iliac system from right femoral artery exposure
2. Thromboembolectomy of right superficial femoral artery, popliteal artery and profunda femoral artery from right femoral artery exposure
A/P:
# Fever, resolved. Treated as aspiration pneumonia left lower lobe opacity
s/p Unasyn, last day 11/05
# Shock unclear reason, possibly cardiogenic
off pressors
# Abnormal LFTs, improving
Abd US noted Hepatomegaly with findings suggesting diffuse fatty liver.
Follow LFT
# Threatening Ischemia of the RLE
# Thromboembolic Occlusion of the Right Iliac Artery
# PVD with history of thrombectomy June 2023
s/p R Femoral artery cut down, thrombectomy of right iliac system proximally and SFA/profunda distally by Dr. Wilkerson on 10/29
Post-op Vascular protocols
Heparin switched to Eliquis
Patient with follow-up with vascular surgery outpatient
# VDRF for acute hypoxic respiratory failure and hypercapnic respiratory failure
extubated doing well, now on room air
# Metabolic acidosis, resolved
# lactic acidosis, resolved
# Paroxysmal Atrial Fibrillation with Rapid Ventricular Response
# History of cardioversion in the past
Off IV diltiazem
Cont metoprolol 75 mg twice daily
Amiodarone dose adjusted to 200 mg BID
Cont Eliquis
Cardiology following.
# Chronic HFrEF
Echo 10/30/2024- Global hypokinesis. EF 5 to 10%. Stage II diastolic dysfunction.
Patient does not appear grossly volume overloaded at present.
GDMT . Continue SGLT2 inhibitors. Continue beta-blockers
Follow I/Os, daily weights
Continue Lasix 40 mg IV twice daily
Card following
Long-term plan will be for repeat cardioversion versus ablation to try to restore sinus rhythm to help his cardiomyopathy.
# Hypocalcemia
replace as needed
# Hyperthyroidism
Continue methimazole
# Morbid Obesity due to excess calories
Affects all aspects of care. Encourage healthy diet and increased activity with goal of weight loss.
# Medical Non-Compliance- Patient with documented history of poor compliance.
# History of alcohol abuse in the past
# Prediabetes-hemoglobin A1c 6.0
# Diverticulosis
# Ex Smoker
DVT Prophylaxis: Eliquis
Code Status: Full
PT OT: likely no need
Anticipated Discharge: 24 - 48 hours
Subjective/Interval History
-
Date of Service: November 05, 2024
Objective Data
-
Labs:
Laboratory Results
11/05/24
05:58
WBC 12.9 H
Hgb 16.4
Hct 50.4
Plt Count 287
Sodium 136
Potassium 4.5
Chloride 99
Carbon Dioxide 29
BUN 32 H
Creatinine 1.2
Glucose 99
Calcium 8.7
Total Bilirubin 2.3 H
AST 43
ALT 184 H
Alkaline Phosphatase 136 H
Vital Signs:
Vital Signs
Temp Pulse Resp BP Pulse Ox
36.2 C 77 18 100/63 99
11/05/24 12:35 11/05/24 12:35 11/05/24 12:35 11/05/24 12:35 11/05/24 12:35
I&O
11/04/24 11/05/24 11/06/24
06:59 06:59 06:59
Intake Total 1740 / 1740 480 / 480
Balance 1739 480 / 480
Review of Systems
-
All other systems: Reviewed and negative
Physical Exam
-
General: Well Developed, Well Nourished, No Apparent Distress, Comfortable and Conversant
HEENT: Normocephalic and Atraumatic
Respiratory: Clear to Auscultation and Non Labored Respirations; Negative Accessory Resp Muscle Use
Cardiac: Regular Rhythm and S1/S2
GI: Soft, Nontender, Nondistended and Normal Bowel Sounds
Skin: Warm and Dry
Neuro: Awake and Alert
Psych: Calm and Intact Judgement/Insight
Data Reviewed
-
Labs: Labs Reviewed by me
[2024-11-05 15:00] VITALS: BP 127/90
[2024-11-05] MEDS: NICORETTE 2 MG PO (15:33)
[2024-11-05 19:35] VITALS: BP 96/65
[2024-11-05] MEDS: PACERONE 200 MG PO (20:41)
[2024-11-05 23:40] VITALS: BP 100/66
[2024-11-06 03:05] VITALS: BP 97/72
[2024-11-06 06:00] VITALS: BMI 37.7
[2024-11-06 06:24] LABS: Hematocrit 50.1 % (39.0-52.0); Mean Corp Hgb Conc. 31.9 g/dL (33.0-37.0); Mean Corpuscular Hgb 31.3 pg (27.0-31.0); Mean Corpuscular Volume 97.9 fL (80.0-94.0); Mean Platelet Volume 10.1 fL (7.4-10.4); Platelet Count 292 10^3/uL (130-400); Red Blood Cell Count 5.12 10^6/uL (4.70-6.10); Red Cell Dist. Width 15.3 % (11.5-14.5); White Blood Cell Count 11.7 10^3/uL (4.8-10.8)
[2024-11-06 06:58] LABS: ALT (SGPT) 139 U/L (0-50); AST (SGOT) 31 U/L (17-59); Albumin 3.2 g/dl (3.5-5.0); Alkaline Phosphatase 127 U/L (38-126); Blood Urea Nitrogen 28 mg/dl (9-20); Calcium 8.7 mg/dl (8.4-10.2); Carbon Dioxide 29 mmol/L (22-30); Chloride 102 mmol/L (98-107); Estimated Creatinine Clearance 98 ml/min; Glucose 97 mg/dl (70-99); Magnesium 2.3 mg/dl (1.6-2.3); Sodium 136 mmol/L (135-145); Total Bilirubin 2.3 mg/dl (0.2-1.3); Total Protein 5.8 g/dl (6.3-8.2); eGFR > 60.00
[2024-11-06 07:00] VITALS: BP 103/70
[2024-11-06] MEDS: LASIX 40 MG IV (07:37)
[2024-11-06] MEDS: NICODERM TRANSDERMAL 21 MG TRANSDERM (07:38)
[2024-11-06] MEDS: ENTRESTO 24 MG/26 MG PO (07:38)
[2024-11-06] MEDS: KCL 20 MEQ PO (07:39)
[2024-11-06] MEDS: ELIQUIS 5 MG PO (07:39)
[2024-11-06] MEDS: TAPAZOLE 10 MG PO (07:39)
[2024-11-06] MEDS: TOPROL XL PO (07:39)
[2024-11-06] MEDS: FARXIGA 10 MG PO (07:39)
[2024-11-06] MEDS: PACERONE 200 MG PO (07:39)
--- NOTE | 2024-11-06 08:13 | W.PN.CARDCBS ---
Today's Communication / Plan
-
Has diuresed and feels well.
Stable for discharge today. Will arrange follow up
Continue Toprol 75 p.o. twice daily, amiodarone 20 mg p.o. twice daily for 1 month then 200 mg daily.
Continue Entresto and Jardiance.
Will discharge on Lasix 40 mg p.o. bid with an extra 40 mg as needed.
Continue Eliquis.
As outpatient will discuss repeat cardioversion or ablation.
Encouraged compliance
Impression / Plan
-
.
Primary Acid Pump Operator: Dr. Onofre
Impression:
Acute limb ischemia with R iliac artery occlusion s/p thromboembolectomy of right iliac system, right superficial femoral artery, popliteal artery, profunda femoral artery 10/29/2024
Atrial fibrillation with RVR
Hypotension requiring pressors, improved
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
Persistent atrial fibrillation, first discovered July 2023
-Chronic OAC with eliquis
Chronic HFrEF
Tachycardia mediated cardiomyopathy
NSVT
Hyperthyroidism
Noncompliance
Depression
Hx ETOH and tobacco abuse
Obesity
ECHO 04/04/2024: EF 10 to 15%, severe global hypokinesis, mild MR, trace TR, PAP 30 to 33 mmHg
Cardiac catheterization 05/22/2024: Nonobstructive coronary disease with normal to mildly elevated right and left-sided filling pressures with normal cardiac output
Echocardiogram 10/30/2024: Severely dilated left ventricle, severely reduced LV systolic function, global hypokinesis with ejection fraction of 5-10%, moderate to severe eccentric TR with PA pressure of 30-35 mmHg, small pericardial effusion.
Plan:
-Continue amiodarone 200 mg BID
Continue higher dose of Toprol 75 mg p.o. twice daily. HR improved
-Continue Eliquis. discussed importance of this medication given now 2 episodes of thromboembolic events. Some hx of noncompliance
-EF 5 to 10% by echo this admission, which is longstanding and nonischemic. Suspected tachycardia contributing.
-Cont Entresto and watch for hypotension
-Would eventually consider cardioversion as outpt if remains in aFib. Could eventually consider PVI given tachy-induced CM.
-Guideline directed medical therapy will be limited by patient noncompliance as well as by hypotension.
-Continue SGLT2
-Has diuresed well. will swicth back to lasix 40mg po bid, extra 40mg for 2-3lb weight gain. Creat 1.1
-Will likely need eventual ICD, timing to be discussed with the EP
-Thyroid correction per primary service-methimazole has been increased
-Continue postoperative care status post right lower extremity thromboembolectomy
Progress Note - Acid Pump Operator
Subjective
Date of Service: November 06, 2024
Breathing is improved and he feels well. Denies chest pain.
Objective
Labs:
11/06/24 05:36
11/06/24 05:36
Labs
Hgb 16.0 g/dL (13.0-18.0) 11/06/24 05:36
Hct 50.1 % (39.0-52.0) 11/06/24 05:36
Plt Count 292 10^3/uL (130-400) 11/06/24 05:36
APTT Cancelled 10/31/24 16:30
Sodium 136 mmol/L (135-145) 11/06/24 05:36
Potassium 4.0 mmol/L (3.5-5.1) 11/06/24 05:36
BUN 28 mg/dl (9-20) H 11/06/24 05:36
Creatinine 1.1 mg/dL (0.7-1.3) 11/06/24 05:36
Glucose 97 mg/dl (70-99) 11/06/24 05:36
Troponins
11/04/24
14:42
Troponin I 0.029
Vital Signs and I&O:
Vital Signs
Temp Pulse Resp BP Pulse Ox
98.1 F 79 16 103/70 99
11/06/24 07:00 11/06/24 07:00 11/06/24 07:00 11/06/24 07:39 11/06/24 07:00
Vital Signs
Temp Pulse Resp BP Pulse Ox
98.1 F 79 16 103/70 99
11/06/24 07:00 11/06/24 07:00 11/06/24 07:00 11/06/24 07:39 11/06/24 07:00
Intake & Output
11/04/24 11/05/24 11/06/24 11/07/24
06:59 06:59 06:59 06:59
Intake Total 1740 / 1740 480 / 480 700 / 700
Balance 1740 / 1740 480 / 480 700 / 700
Physical Exam
Physical Exam
GEN: No distress, awake, Ox3
HEENT: supple, anicteric, mmm
LUNGS: CTA, no wheezes/rales
CV: Irreg, S1/S2, 1/6 syst LSB, no gallop
ABD: soft, BS+, NT/ND
EXT: No edema
NEURO: Gross non-focal
SKIN: No rash
--- NOTE | 2024-11-06 10:28 | CM ---
Addendum entered by Katherine Oliver 11/06/24 12:47:
Coupons given to patient for Entresto, Jardiance, Eliquis
friend to transport home.
Original Note:
Patient seen at bedside.
Spoke with Iqra DICKENS
She states she will need pay stubs for Dec to submit application (she will revisit patient)
Also she re-send employer verification to [employer]
PT/OT notes no needs
Discussed Good Rx with patient
Spoke with pharmacist Gregory at [facility] [phone]-stated patient last filled meds Oct
Has Informed Insurance for pharmacy
PLAN: Home, no needs
--- NOTE | 2024-11-06 10:49 | W.PN.HOSP.TC ---
Today's Communication/Plan
-
see A/P
Assessment / Plan
Assessment / Plan
HPI: 59 yo man with PMH paroxysmal afib, HFrEF, prior LLE embolism/ischemia; presented with new onset RLE pain and was found to have complete occlusion right iliac artery s/p emergent OR for re-vascularization. He was also noted to be in rapid
afib.
10/29/24
1. Thromboembolectomy of right iliac system from right femoral artery exposure
2. Thromboembolectomy of right superficial femoral artery, popliteal artery and profunda femoral artery from right femoral artery exposure
A/P:
# Fever, resolved. Treated as aspiration pneumonia left lower lobe opacity
s/p Unasyn, last day 11/05
# Shock unclear reason, possibly cardiogenic
off pressors
# Abnormal LFTs, improving
Abd US noted Hepatomegaly with findings suggesting diffuse fatty liver.
Follow LFT, improving
# Threatening Ischemia of the RLE
# Thromboembolic Occlusion of the Right Iliac Artery
# PVD with history of thrombectomy June 2023
s/p R Femoral artery cut down, thrombectomy of right iliac system proximally and SFA/profunda distally by Dr. Wilkerson on 10/29
Post-op Vascular protocols
Heparin switched to Eliquis
Patient with follow-up with vascular surgery outpatient
# VDRF for acute hypoxic respiratory failure and hypercapnic respiratory failure
extubated doing well, now on room air
# Metabolic acidosis, resolved
# lactic acidosis, resolved
# Paroxysmal Atrial Fibrillation with Rapid Ventricular Response
# History of cardioversion in the past
Off IV diltiazem
Cont metoprolol 75 mg twice daily, Amiodarone 200 mg BID for 1 month then 200 mg daily.
Continue Entresto and Jardiance (coupons to be provided to patient).
Cont Eliquis
Cardiology following. As outpatient will discuss repeat cardioversion or ablation.
# Chronic HFrEF
Echo 10/30/2024- Global hypokinesis. EF 5 to 10%. Stage II diastolic dysfunction.
Patient does not appear grossly volume overloaded at present.
GDMT . Continue SGLT2 inhibitors. Continue beta-blockers
Follow I/Os, daily weights
IV Lasix 40 mg twice daily -> PO BID, with an extra 40 mg as needed.
Card following
Long-term plan will be for repeat cardioversion versus ablation to try to restore sinus rhythm to help his cardiomyopathy.
# Hypocalcemia
replace as needed
# Hyperthyroidism
Continue methimazole
# Morbid Obesity due to excess calories
Affects all aspects of care. Encourage healthy diet and increased activity with goal of weight loss.
# Medical Non-Compliance- Patient with documented history of poor compliance.
# History of alcohol abuse in the past
# Prediabetes-hemoglobin A1c 6.0
# Diverticulosis
# Ex Smoker
DVT Prophylaxis: Eliquis
Code Status: Full
PT OT: likely no need
DW Card
DW CM
Anticipated Discharge: Today
Subjective/Interval History
-
Date of Service: November 06, 2024
Objective Data
-
Labs:
Laboratory Results
11/06/24
05:36
WBC 11.7 H
Hgb 16.0
Hct 50.1
Plt Count 292
Sodium 136
Potassium 4.0
Chloride 102
Carbon Dioxide 29
BUN 28 H
Creatinine 1.1
Glucose 97
Calcium 8.7
Total Bilirubin 2.3 H
AST 31
ALT 139 H
Alkaline Phosphatase 127 H
Vital Signs:
Vital Signs
Temp Pulse Resp BP Pulse Ox
36.7 C 79 16 103/70 99
11/06/24 07:00 11/06/24 07:00 11/06/24 07:00 11/06/24 07:39 11/06/24 08:00
I&O
11/05/24 11/06/24 11/07/24
06:59 06:59 06:59
Intake Total 480 / 480 700 / 700
Balance 480 / 480 700 / 700
Review of Systems
-
All other systems: Reviewed and negative
Physical Exam
-
General: Well Developed, Well Nourished, No Apparent Distress, Comfortable and Conversant
HEENT: Normocephalic and Atraumatic
Respiratory: Clear to Auscultation and Non Labored Respirations; Negative Accessory Resp Muscle Use
Cardiac: Regular Rhythm and S1/S2
GI: Soft, Nontender, Nondistended and Normal Bowel Sounds
Skin: Warm and Dry
Neuro: Awake and Alert
Psych: Calm and Intact Judgement/Insight
Data Reviewed
-
Labs: Labs Reviewed by me
[2024-11-06 11:00] VITALS: BP 150/86
--- NOTE | 2024-11-06 13:06 | W.DCSUMMARY ---
Discharge Summary
Discharge Data
Date of Admission: 10/29/24
Date of Discharge: 11/06/24
-
Pending Results: No
Hospital Course
Principal Diagnosis:
Right lower extremity critical limb ischemia status post emergent surgery with thromboembolectomy by vascular surgeon Dr. Wilkerson on 10/29/24.
Aspiration pneumonia left lower lobe opacity.
Acute on chronic heart failure with reduced ejection fraction (HFrEF).
Chronic Diagnoses:�
Left leg embolism/ischemia
Paroxysmal atrial fibrillation. History of cardioversion in the past.
Heart failure with reduced ejection fraction
Hyperthyroidism, on methimazole
Morbid Obesity due to excess calories
Medication non-compliance
History of alcohol abuse in the past
Prediabetes- hemoglobin A1c 6.0 %
Diverticulosis
Smoker
Consultations:�
Vascular surgery
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
Procedures:�
10/29/24
1. Thromboembolectomy of right iliac system from right femoral artery exposure
2. Thromboembolectomy of right superficial femoral artery, popliteal artery and profunda femoral artery from right femoral artery exposure
Clinical course:�
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
Problem 1:
Right lower extremity critical limb ischemia status post emergent surgery with thromboembolectomy by vascular surgeon Dr. Wilkerson on 10/29/24.
He can follow-up with vascular surgery outpatient.
Of note, he was intubated initially, and was extubated successfully with weaning of oxygen back to room air.
He has been counseled extensively regarding smoking cessation.
Problem 2:
Fever, resolved.
Treated as aspiration pneumonia left lower lobe opacity.
He received Unasyn for 7 days while in the hospital.
Problem 3:
Paroxysmal Atrial Fibrillation with Rapid Ventricular Response.
He was treated with IV Cardizem initially, which was discontinued.
His prior to admission Toprol was increased to 75 mg twice daily which she can continue going forward.
He can also continue with amiodarone 200 mg twice daily for 1 month, then 200 mg daily after that.
He can follow-up with cardiology outpatient to discuss possible repeat cardioversion or ablation.
Problem 4:
Acute on chronic HFrEF.
His Echo this admission 10/30/2024 showed Global hypokinesis, EF 5 to 10%, Stage II diastolic dysfunction.
He can continue Toprol as stated above.
He was treated with IV Lasix 40 mg twice daily while in the hospital per cardiology, and was discharged with oral Lasix twice daily to continue going forward.
He can continue Entresto and Jardiance (coupons provided to patient) per cardiology.
Of note, his LFT were elevated which trended down, likely due to acute illness and CHF.
He can check repeat LFT outpatient with result to his PCP.
As for the rest of his medical problems, they were stable during his hospital stay.
Discharge Plan
-
Patient Disposition: Home (Routine Discharge)
Discharge Diagnosis/Procedures: Right leg peripheral artery disease/critical limb ischemia status post R Femoral artery cut down and thrombectomy;
Resolved metabolic acidosis and lactic acidosis;
Resolved shock;
Paroxysmal Atrial Fibrillation with Rapid Ventricular Response;
Chronic heart failure with reduced ejection fraction;
Condition: Fair
Diet: 2 Gram Sodium and Restrict fluids to 48 oz
Activity: No strenuous activity
Driving Restrictions: As prior to admission
Bathing Restrictions: OK to Shower
Specialty Instructions: Weigh Daily- Call MD for wt gain/loss 3 lbs overnight/5 lbs in 1 week
Activity Restrictions/Additional Instructions:
The white JERRI dressing on the groin site can be peeled off and removed on 11/03/24. you may throw the dressing and battery pack away.
Until removal you may disconnect at hub closest to your body to shower and re-connect after shower
The battery pack will vibrate and blink different colors, this is normal.
If the dressing becomes saturated or peels away before removal date that is ok, you may remove it at that time.
After removal if you would like to cover the site with gauze you may, change this daily. You also may leave open to air.
DO NOT SOAK incision. Showering is fine but no standing water(tub/pool).Keep this incision as dry as you can when not showering
Stand Alone Forms: DC Instr - Vascular OR
Referrals:
Edmundo Hammond MD [Family Provider] -
Kathie Abernathy PA-C [Specified Professional Personl] - 11/15/24 9:30 am
Dev Onofre MD [Active] - 11/09/24 8:20 am (You have an appt to see Dr. Onofre's nurse practitioner, Janna, at the [place] office on 11/09/24 at 8:20 AM. Please call [phone] if you need to reschedule.)
Additional Discharge Medication Instructions: Take metoprolol 75 mg twice daily;
Take Amiodarone 200 mg twice daily for 1 month then 200 mg daily after that.
Take Lasix 40 mg twice daily, with an extra 40 mg as needed for weight gain (> 3 pound in a day)
Prescriptions:
New
amiodarone 200 mg Tablet
200 mg PO BID Qty: 90 0RF
Rx Instructions:
twice daily for 1 month then 200 mg daily.
metoprolol succinate 50 mg Tablet Extended Release 24 Hr
75 mg PO BID Qty: 60 0RF
Continued
methimazole 10 mg tablet
10 mg PO DAILY
potassium chloride 20 mEq Tablet Extended Release
20 meq PO DAILY
furosemide [Lasix] 40 mg tablet
40 mg PO BID Qty: 60 0RF
Eliquis 5 mg Tablet
5 mg PO BID Qty: 60 0RF
Jardiance 10 mg Tablet
10 mg PO DAILY Qty: 30 0RF
sacubitril-valsartan [Entresto] 24-26 mg Tablet
1 tab PO BID Qty: 60 0RF
Discontinued
metoprolol succinate 50 mg tablet extended release 24 hr
50 mg PO BID
spironolactone 25 mg tablet
25 mg PO DAILY Qty: 90 3RF
Discharge Orders:
Discharge Patient (As Directed); Ordered 11/06/24
Ordered By: Bonnie Garcia
Care Plan Goals
Care Plan Goals:
Problem: Readiness for enhanced knowledge related to diagnosis and treatment plan
Goal: Understand your diagnosis and treatment plan needs, including medications if applicable.
Instructions: Know your diagnosis, underlying causes and treatment plan options, including medications if applicable. Consult with your health care team to learn about your diagnosis and treatment plan, including medications if applicable.
Discharge Date and Time
Print Language: KYRGYZ
== END 2024-11-06 14:25 | disposition home or self-care (01) | DRG 270 ==
LOC: 2 SOUTH 21:41
PROVIDERS: Hospitalist; Internal Medicine; Nurse Practitioner Acute Care; Nurse Practitioner Primary Care; Physician Assistant; Registered Nurse; Student in an Organized Health Care Education/Training Program; ADMITTING PHYSICIAN Hospitalist; ATTENDING PHYSICIAN Internal Medicine; CONSULT PHYSICIAN Internal Medicine Critical Care Medicine; EMERGENCY PHYSICIAN Emergency Medicine; FAMILY PHYSICIAN Family Medicine; OTHER PHYSICIAN Internal Medicine Cardiovascular Disease; OTHER PHYSICIAN Surgery Vascular Surgery
PROC: 04CH0ZZ Extirpation of Matter from Right External Iliac Artery, Open Approach (ICD-10-PCS; 2024-10-29)
PROC: 04CK0ZZ Extirpation of Matter from Right Femoral Artery, Open Approach (ICD-10-PCS; 2024-10-29)
PROC: 0BH17EZ Insertion of Endotracheal Airway into Trachea, Via Natural or Artificial Opening (ICD-10-PCS; 2024-10-29)
PROC: 5A1935Z Respiratory Ventilation, Less than 24 Consecutive Hours (ICD-10-PCS; 2024-10-29)
PROC: 0BP1XDZ Removal of Intraluminal Device from Trachea, External Approach (ICD-10-PCS; 2024-10-30)
DX: I82.421 Acute embolism and thrombosis of right iliac vein (principal); I50.23 Acute on chronic systolic (congestive) heart failure; J69.0 Pneumonitis due to inhalation of food and vomit; J96.02 Acute respiratory failure with hypercapnia; J96.01 Acute respiratory failure with hypoxia; R57.0 Cardiogenic shock; I48.92 Unspecified atrial flutter; I74.5 Embolism and thrombosis of iliac artery; I42.8 Other cardiomyopathies; Z99.11 Dependence on respirator [ventilator] status; E87.20 Acidosis, unspecified; I31.39 Other pericardial effusion (noninflammatory); I47.20 Ventricular tachycardia, unspecified; R57.9 Shock, unspecified; I70.221 Atherosclerosis of native arteries of extremities with rest pain, right leg; E05.90 Thyrotoxicosis, unspecified without thyrotoxic crisis or storm; F32.A Depression, unspecified; F17.200 Nicotine dependence, unspecified, uncomplicated; E66.01 Morbid (severe) obesity due to excess calories; I11.0 Hypertensive heart disease with heart failure; E83.51 Hypocalcemia; R73.03 Prediabetes; I48.0 Paroxysmal atrial fibrillation; F10.11 Alcohol abuse, in remission; K76.0 Fatty (change of) liver, not elsewhere classified; J43.2 Centrilobular emphysema; K57.30 Diverticulosis of large intestine without perforation or abscess without bleeding; R31.29 Other microscopic hematuria; M79.89 Other specified soft tissue disorders; Z60.2 Problems related to living alone; Z86.718 Personal history of other venous thrombosis and embolism; Z79.01 Long term (current) use of anticoagulants; Z91.199 Patient's noncompliance with other medical treatment and regimen due to unspecified reason; Z91.148 Patient's other noncompliance with medication regimen for other reason; Z68.37 Body mass index [BMI] 37.0-37.9, adult; Z82.49 Family history of ischemic heart disease and other diseases of the circulatory system; Z87.19 Personal history of other diseases of the digestive system
CPT/HCPCS: 88304; 34201; 71045; 71046; 71275; 75635; 76700; 80048; 80053; 81003; 81015; 82248; 82330; 82805; 82962; 83036; 83605; 83735; 83880; 84100; 84132; 84302; 84439; 84443; 84484; 85025; 85027; 85730; 86850; 86900; 86901; 87040; 92526; 92610; 93005; 93306; 93971; 94002; 96374; 97162; 97166; 97530; 99291; 99406; C1757; Q9950; Q9967

== ENCOUNTER → 2024-11-27 09:37 | Outpatient (REF) | payer OTHER, SELFPAY | LOC: RAD 09:37 | PROVIDERS: ATTENDING PHYSICIAN Physician Assistant | DX: I74.3 Embolism and thrombosis of arteries of the lower extremities (principal) | CPT/HCPCS: 93922; 93925; 93978 ==

== ENCOUNTER 2024-11-27 20:01 | Inpatient (IN) | payer OTHER, SELFPAY ==
[2024-11-27] VITALS (13 sets, daily range): BP systolic 104–124; BP diastolic 59–96; BMI 39.1; BMI 39.0
--- NOTE | 2024-11-27 12:30 | ED.GENMED ---
History of Present Illness
<Edmundo Cortez, DO - Last Filed: 11/27/24 19:28>
General
Chief Complaint: Weakness
Source: patient
Exam Limitations: none
Time Seen by Provider: 11/27/24 12:39
Nursing documentation reviewed up to this point in time: agreed with
History of Present Illness
History of Present Illness:
59 yo male presents to the emergency department c/o not feeling well since his hospital dc on 11/06/24. He had a right iliac thrombectomy
Past History
<Maxx Herron MD, Resident - Last Filed: >
Past History
ED Past Medical History: Arrthythmia (Atrial fibrillation on Eliquis) and CHF
ED Past Surgical History: Other (LLE critical limb ischemia needing revascularization surgery 06/2023)
Patient has exhibited threatening behavior?: No
PSI?: No
Social History
Tobacco: Former smoker
Alcohol: None
Personal: Single
Living: alone
Review of Systems
<Edmundo Cortez, DO - Last Filed: 11/27/24 19:28>
Review of Systems
Allergies reviewed?: Yes
All Other Systems: Not applicable
Constitutional: Reports no symptoms
EENT: Reports no symptoms
Respiratory: Reports cough
Cardiac: Reports no symptoms
ABD/GI: Reports no symptoms
: Reports no symptoms
Musculoskeletal: Reports no symptoms
Skin: Reports no symptoms
Neurological: Reports no symptoms
Endocrine: Reports no symptoms
Hematologic/Lymphatic: Reports no symptoms
Psychiatric: Reports no symptoms
Phy Exam
<Edmundo Cortez, DO - Last Filed: 11/27/24 19:28>
Physical Exam
Physical Exam:
afebrile
Right groin site 3 small openings, draining serosanguineous fluid
General Physical Exam
General Presentation: well appearing
General age: appears stated age
General Skin: warm
General Habitus: normal
ENT Exam
ENT Exam: EOMI
Cardiovascular Exam
Cardiovascular Exam: regular rate/rhythm, no edema and no JVD
Pulmonary Exam
Pulmonary Exam: lungs clear and no respiratory distress
Gastrointestinal Exam
Gastrointestinal Exam: non tender, soft and non distended
Neurological Exam
Neurological Exam: alert, oriented x3, no motor deficits and speech normal
Course
<Edmundo Cortez, DO - Last Filed: 11/27/24 19:28>
Orders/Labs/Results
Orders:
Orders
11/27/24 12:11
Electrocardiogram (*1) Urgent
Reason for Study: Fatigue / Weakness
EKG- Treatment ONCE
11/27/24 12:33
Complete Blood Count/With Diff Urgent
11/27/24 12:50
Add On- LAB Urgent
Tests Added?: troponin
11/27/24 12:59
Cardiac Monitoring- Treatment ONCE
CR Chest - 2 Views Urgent
Comment:
Reason For Exam: cough, short of breath
11/27/24 13:10
Comprehensive Metabolic Panel Urgent
NT-proBNP Urgent
Comment: ADD ON
Troponin I Urgent
11/27/24 14:17
Add On- LAB Urgent
Tests Added?: bnp
11/27/24 16:38
Piperacillin/Tazo 4.5 Gram [Zosyn] 4.5 gram in 100 ml IV NOW
11/27/24 17:22
CT Abd/pelvis Angio W/wo Iv Urgent
Comment: please view to mid thigh
Reason For Exam: open, draining left groin surg incision
11/27/24 18:29
Admit Patient As Directed
Co-Sign Provider:
Level of Care: Inpatient admission
Assign to:: Telemetry
Physician / Group: Hospitalist
Diagnosis: Acute Exacerbation of HFrEF, Wound Dehiscence
Reason for Telemetry: Arrhythmia
Date to Stop Telemetry: 11/30/24
Time to Stop Telemetry: 11:00
Reason for Hospitalization: Acute Exacerbation of HFrEF, Wound Dehiscence
Expected length of stay greater than two midnights?: Yes
ELOS- Estimated Length of Stay in days: 3
I certify the patient meets the requirements for IP care: Yes
PRN Pain Medication Management As Directed
May give lesser potent ordered pain med per pt: Yes
preference::
Protocol:: Medication orders for pain may be administered in a
manner that supports deferring to patient preference
when the pt is:
- Requesting an ordered lesser potent pain medication.
Least to most potent pain medications are defined
as: acetaminophen < NSAID < tramadol < opioids
(morphine, oxycodone, hydromorphone).
- Requesting a lesser dose of the same medication IF
ORDERED.
- Requesting a less intrusive route of administration
if both routes are prescribed by the provider (PO <
IV).
11/27/24 18:59
Wound Culture [Wound/Abscess/Other Culture] Urgent
EMMIE Source: Groin
Specimen Description: Right
11/27/24 20:00
Amiodarone [Pacerone] 200 mg PO BID
Apixaban [Eliquis] 5 mg PO BID
Furosemide [Lasix] 40 mg PO BID
Metoprolol Xl [Toprol Xl] 50 mg PO BID
Sacubitril 24/Valsartan 26 [Entresto 24 mg/26 mg] 1 tab PO BID
11/28/24 Breakfast
2 Gram Sodium [Sodium, 2 Gram]
At Your Request: Full Participation
Does patient need a safe tray?: No
Fluid Restriction: 1920 mL/day (64 oz)
11/28/24 08:00
Potassium Chloride [KCl] 20 meq PO DAILY
empagliflozin [Jardiance] 10 mg PO DAILY
methimazole 10 mg PO DAILY
11/30/24 11:00
DC Protocol for Telemetry ONCE
Abnormal Lab Results
11/27/24 11/27/24
12:33 13:10
MCV 96.0 H fL
(80.0-94.0)
MCH 31.8 H pg
(27.0-31.0)
RDW 15.9 H %
(11.5-14.5)
Absolute Monos (auto) 0.8 H 10^3/uL
(0.1-0.6)
Lymphocytes % 19.1 L %
(20.5-51.1)
Monocytes % 9.5 H %
(1.7-9.3)
Potassium 3.2 L mmol/L
(3.5-5.1)
Glucose 110 H mg/dl
(70-99)
Total Bilirubin 1.9 H mg/dl
(0.2-1.3)
Alkaline Phosphatase 128 H U/L
(38-126)
Total Protein 5.9 L g/dl
(6.3-8.2)
Albumin 3.4 L g/dl
(3.5-5.0)
11/27/24 12:33
11/27/24 13:10
Vital Signs
Initial and Last Documented VS:
Initial Vital Signs
Temp Pulse Resp BP Pulse Ox
98.1 F 87 20 104/76 98
11/27/24 11:11 11/27/24 11:11 11/27/24 11:11 11/27/24 11:11 11/27/24 11:11
Last Documented Vital Signs
Temp Pulse Resp BP Pulse Ox
98.1 F 106 28 120/86 98
11/27/24 11:11 11/27/24 16:00 11/27/24 16:00 11/27/24 16:00 11/27/24 14:00
<Maxx Herron MD, Resident - Last Filed: >
Orders/Labs/Results
Orders:
Orders
11/27/24 12:11
Electrocardiogram (*1) Urgent
Reason for Study: Fatigue / Weakness
EKG- Treatment ONCE
11/27/24 12:33
Complete Blood Count/With Diff Urgent
11/27/24 12:50
Add On- LAB Urgent
Tests Added?: troponin
11/27/24 12:59
Cardiac Monitoring- Treatment ONCE
CR Chest - 2 Views Urgent
Comment:
Reason For Exam: cough, short of breath
11/27/24 13:10
Comprehensive Metabolic Panel Urgent
NT-proBNP Urgent
Comment: ADD ON
Troponin I Urgent
11/27/24 14:17
Add On- LAB Urgent
Tests Added?: bnp
11/27/24 16:38
Piperacillin/Tazo 4.5 Gram [Zosyn] 4.5 gram in 100 ml IV NOW
11/27/24 17:22
CT Abd/pelvis Angio W/wo Iv Urgent
Comment: please view to mid thigh
Reason For Exam: open, draining left groin surg incision
11/27/24 18:29
Admit Patient As Directed
Co-Sign Provider:
Level of Care: Inpatient admission
Assign to:: Telemetry
Physician / Group: Hospitalist
Diagnosis: Acute Exacerbation of HFrEF, Wound Dehiscence
Reason for Telemetry: Arrhythmia
Date to Stop Telemetry: 11/30/24
Time to Stop Telemetry: 11:00
Reason for Hospitalization: Acute Exacerbation of HFrEF, Wound Dehiscence
Expected length of stay greater than two midnights?: Yes
ELOS- Estimated Length of Stay in days: 3
I certify the patient meets the requirements for IP care: Yes
PRN Pain Medication Management As Directed
May give lesser potent ordered pain med per pt: Yes
preference::
Protocol:: Medication orders for pain may be administered in a
manner that supports deferring to patient preference
when the pt is:
- Requesting an ordered lesser potent pain medication.
Least to most potent pain medications are defined
as: acetaminophen < NSAID < tramadol < opioids
(morphine, oxycodone, hydromorphone).
- Requesting a lesser dose of the same medication IF
ORDERED.
- Requesting a less intrusive route of administration
if both routes are prescribed by the provider (PO <
IV).
11/27/24 18:59
Wound Culture [Wound/Abscess/Other Culture] Urgent
EMMIE Source: Groin
Specimen Description: Right
11/27/24 20:00
Amiodarone [Pacerone] 200 mg PO BID
Apixaban [Eliquis] 5 mg PO BID
Furosemide [Lasix] 40 mg PO BID
Metoprolol Xl [Toprol Xl] 50 mg PO BID
Sacubitril 24/Valsartan 26 [Entresto 24 mg/26 mg] 1 tab PO BID
11/28/24 Breakfast
2 Gram Sodium [Sodium, 2 Gram]
At Your Request: Full Participation
Does patient need a safe tray?: No
Fluid Restriction: 1920 mL/day (64 oz)
11/28/24 08:00
Potassium Chloride [KCl] 20 meq PO DAILY
empagliflozin [Jardiance] 10 mg PO DAILY
methimazole 10 mg PO DAILY
11/30/24 11:00
DC Protocol for Telemetry ONCE
Abnormal Lab Results
11/27/24 11/27/24
12:33 13:10
MCV 96.0 H fL
(80.0-94.0)
MCH 31.8 H pg
(27.0-31.0)
RDW 15.9 H %
(11.5-14.5)
Absolute Monos (auto) 0.8 H 10^3/uL
(0.1-0.6)
Lymphocytes % 19.1 L %
(20.5-51.1)
Monocytes % 9.5 H %
(1.7-9.3)
Potassium 3.2 L mmol/L
(3.5-5.1)
Glucose 110 H mg/dl
(70-99)
Total Bilirubin 1.9 H mg/dl
(0.2-1.3)
Alkaline Phosphatase 128 H U/L
(38-126)
Total Protein 5.9 L g/dl
(6.3-8.2)
Albumin 3.4 L g/dl
(3.5-5.0)
11/27/24 12:33
11/27/24 13:10
Vital Signs
Initial and Last Documented VS:
Initial Vital Signs
Temp Pulse Resp BP Pulse Ox
98.1 F 87 20 104/76 98
11/27/24 11:11 11/27/24 11:11 11/27/24 11:11 11/27/24 11:11 11/27/24 11:11
Last Documented Vital Signs
Temp Pulse Resp BP Pulse Ox
98.1 F 106 28 120/86 98
11/27/24 11:11 11/27/24 16:00 11/27/24 16:00 11/27/24 16:00 11/27/24 14:00
<Edmundo Cortez, DO - Last Filed: 11/27/24 19:28>
MDM/Problems Addressed
Differential Diagnosis Includes:
Wound dehiscence, CHF, atrial fibrillation
MDM/Problems Addressed:
67-year-old male with wound dehiscence of right groin, CHF, rapid atrial fibrillation.
Chronic conditions affecting care: Cardiomyopathy, Arrhythmia and Previous abdomnial surgery
Acute Exacerbation and/or Progression of Chronic Illness: Cardiomyopathy, Arrhythmia and Previous abdomnial surgery
<Edmundo Cortez, DO - Last Filed: 11/27/24 19:28>
*Pulse Oximetry
Patient hypoxic: no
*EKG
Interpreted by ED Provider?: Yes
EKG Intrepretation Date: 11/27/24
EKG Intrepretation Time: 12:39
Interpretation: abnormal
Comparison EKG: changes noted
Heart Rate: 102
Rate: tachycardiac
Rhythm: a-fib
[place]: normal axis
Interval: normal interval
QRS Pattern: normal QRS
Ischemia: non-specific ST changes
*Critical Care Note
Total Time (30-74mins, 75-104mins- exclusive of procedures): Not Applicable
ED Attending Note
<Maxx Herron MD, Resident - Last Filed: >
-
Portions of this chart may have been created with voice recognition software.� Occasional wrong word or��sound alike� substitutions may have occurred due to the inherent limitations of voice recognition software.
Discharge Plan
Departure
Patient Disposition: Admit
Date of Disposition: 11/27/24
Time of Disposition: 16:36
Admit to: Telemetry
Presentation/result/management discussed w/ accepting MD/DO: Hospitalist
Patient with high blood pressure during this ER visit?: No
Condition: Fair
Discharge Problem:
Atrial fibrillation with rapid ventricular response, Postoperative complication of skin involving drainage from surgical wound, CHF (congestive heart failure), Acute exacerbation of CHF (congestive heart failure)
Prescriptions:
No Action
methimazole 10 mg tablet
10 mg PO DAILY
potassium chloride 20 mEq Tablet Extended Release
20 meq PO DAILY
amiodarone 200 mg Tablet
200 mg PO BID Qty: 90 0RF
Rx Instructions:
twice daily for 1 month then 200 mg daily.
furosemide [Lasix] 40 mg tablet
40 mg PO BID Qty: 60 0RF
Eliquis 5 mg Tablet
5 mg PO BID Qty: 60 0RF
Jardiance 10 mg Tablet
10 mg PO DAILY Qty: 30 0RF
sacubitril-valsartan [Entresto] 24-26 mg Tablet
1 tab PO BID Qty: 60 0RF
metoprolol succinate 50 mg tablet extended release 24 hr
50 mg PO BID
Referrals:
Thomas Peñaloza MD [Family Provider] -
Interventions
Interventions:
*Risk Screen - Suicide Last Done: 11/27/24 11:11
*General Assessment Last Done: 11/27/24 11:11
*Neglect/Abuse Screening Last Done: 11/27/24 11:11
ED- Fall Risk Assessment Last Done: 11/27/24 12:00
*ED COVID-19 Vaccine History Last Done: 11/27/24 12:00
ED- Cardiac Assessment Last Done: 11/27/24 12:01
ED- Neurological Assessment Last Done: 11/27/24 12:00
ED- Pulmonary Assessment Last Done: 11/27/24 12:01
Discharge Date and Time
Print Language: CHINESE
[2024-11-27 13:42] LABS: ALT (SGPT) 14 U/L (0-50); AST (SGOT) 17 U/L (17-59); Albumin 3.4 g/dl (3.5-5.0); Alkaline Phosphatase 128 U/L (38-126); Blood Urea Nitrogen 14 mg/dl (9-20); Calcium 8.6 mg/dl (8.4-10.2); Carbon Dioxide 28 mmol/L (22-30); Chloride 104 mmol/L (98-107); Estimated Creatinine Clearance 122 ml/min; Glucose 110 mg/dl (70-99); Potassium 3.2 mmol/L (3.5-5.1); Sodium 141 mmol/L (135-145); Total Protein 5.9 g/dl (6.3-8.2); eGFR > 60.00
[2024-11-27 13:57] LABS: % Basophils 0.9 % (0-2); % Eosinophils 2.4 % (0-6); % Immature Granulocytes 0.4 % (0-0.5); % Lymphocytes 19.1 % (20.5-51.1); % Monocytes 9.5 % (1.7-9.3); % Neutrophils 67.7 % (42.2-75.2); Absolute Basophils 0.1 10^3/uL (0-0.2); Absolute Eosinophils 0.2 10^3/uL (0-0.7); Absolute Lymphocytes 1.5 10^3/uL (1.2-3.4); Absolute Monocytes 0.8 10^3/uL (0.1-0.6); Absolute Neutrophils 5.5 10^3/uL (1.4-6.5); Hematocrit 45.6 % (39.0-52.0); Hemoglobin 15.1 g/dL (13.0-18.0); Mean Corp Hgb Conc. 33.1 g/dL (33.0-37.0); Mean Corpuscular Hgb 31.8 pg (27.0-31.0); Mean Platelet Volume 10.1 fL (7.4-10.4); Nucleated Red Blood Cells % 0 % (-); Platelet Count 309 10^3/uL (130-400); Red Blood Cell Count 4.75 10^6/uL (4.70-6.10); Red Cell Dist. Width 15.9 % (11.5-14.5); White Blood Cell Count 8.1 10^3/uL (4.8-10.8)
[2024-11-27 14:16] LABS: Total Bilirubin 1.9 mg/dl (0.2-1.3)
[2024-11-27 14:29] LABS: Troponin I 0.031 ng/ml
[2024-11-27 15:08] LABS: NT-proBNP 4060 pg/ml
[2024-11-27] MEDS: ZOSYN 100 IV (17:07)
--- NOTE | 2024-11-27 17:16 | CON.VAS ---
Addendum entered and electronically signed by Elvis Wilkerson III, MD 11/27/24 18:18:
This patient was seen and examined with JEANINE Headley in the emergency department. I agree with the history and physical exam as well as the assessment and plan. I have the following additions:
Known to me following recent right lower extremity thromboembolectomy for acute limb ischemia in mid October
Cardiomyopathy with significantly reduced ejection fraction
Presents with malaise
On physical examination he has wound breakdown of the right groin incision
No surrounding erythema
No odor
Serous drainage is evident
Some superficial fibrinous exudate is present but no purulence is identified
He is afebrile and has a normal white count
Will plan for cross-sectional imaging of the groin to evaluate for deeper collection or signs of infection
May need operative washout/debridement if deeper involvement is identified on imaging. There is no prosthetic material present in the right groin and the artery was repaired primarily after thrombectomy.
Admit for intravenous antibiotics
Cover right groin wound with dry dressings for now until further recommendations made after CT completed and reviewed
Will follow with you
Call with clinical questions or concerns
Signed: Elvis Wilkerson III, MD
[facility]
[phone] (cgrk)
Original Note:
Consultation
Consultation Request
Performing Provider: Rock
Reason for Consultation: Nonhealing right groin surgical incision
Medical History
-
Chief Complaint: Weakness
History of Present Illness:
59-year-old male presents to the ER today for malaise since discharge on 11/06/2024. Past medical history A-fib, CHF(EF 10), previous left lower extremity thrombectomy in 2022. Most recently seen by our service about 1 month ago for
Thromboembolectomy of right iliac system from right femoral artery exposure and thromboembolectomy of right superficial femoral artery, popliteal artery and profunda femoral artery from right femoral artery exposure by Dr. Wilkerson on 10/29/2024.
During that admission patient was also treated for aspiration pneumonia left lower lobe opacity and acute on chronic heart failure with reduced ejection fraction. Patient seen at bedside in the ER with Dr. Wilkerson. Patient visibly short of breath,
pants when speaking in sentences. Patient states he has felt like this since he was discharged last month. When asked how his incision has been healing he states ' it is healing well.' Upon examining his right groin incision it has dehisced and 3
small locations and has serosanguineous drainage and fibrinous tissue. His legs have +2/3 pitting edema. Patient states he has been compliant with all of his medications including his anticoagulation.
Past Medical History
Past Medical History: Arrhythmias, CHF and HTN
Past Surgical History: Other (Left lower extremity thrombectomy in 2022, right lower extremity thrombectomy 2023)
Family History
Family History: Reviewed & Not Pertinent
Allergies / Home Medications
Allergy/AdvReac Type Severity Reaction Status Date / Time
No Known Allergies Allergy Verified 11/27/24 11:19
�Medication �Instructions �Recorded �Confirmed �Type
methimazole 10 mg tablet 10 mg PO DAILY Thyroid 04/11/24 11/27/24 History
potassium chloride 20 mEq 20 meq PO DAILY Electrolyte 05/22/24 11/27/24 History
tablet,extended release Repletion
amiodarone 200 mg tablet 200 mg PO BID #90 tabs 11/06/24 11/27/24 Rx
apixaban 5 mg tablet (Eliquis) 5 mg PO BID Blood clot 11/06/24 11/27/24 Rx
prevention/tx #60 tabs
empagliflozin 10 mg tablet 10 mg PO DAILY Heart Failure #30 11/06/24 11/27/24 Rx
(Jardiance) tabs
furosemide 40 mg tablet (Lasix) 40 mg PO BID Fluid 11/06/24 11/27/24 Rx
Retention/Swelling #60 tabs
sacubitril 24 mg-valsartan 26 mg 1 tab PO BID Heart 11/06/24 11/27/24 Rx
tablet (Entresto) Disease/Condition #60 tabs
metoprolol succinate 50 mg 50 mg PO BID 11/27/24 11/27/24 History
tablet,extended release 24 hr
Review of Systems
-
History Source: Patient
All other systems: Negative unless noted
Constitutional: Reports Weight Gain and Fatigue
EENT: Reports No Symptoms
Respiratory: Reports Trouble Breathing
Cardiac: Reports No Symptoms
Vascular: Denies Leg Pain / Claudication
Abdomen/GI: Reports No Symptoms
: Reports No Symptoms
Musculoskeletal: Reports Edema
Skin: Reports No Symptoms
Neurological: Reports No Symptoms
Endocrine: Reports No Symptoms
Physical Exam
Vital Signs
Temp Pulse Resp BP Pulse Ox
98.1 F 106 28 120/86 98
11/27/24 11:11 11/27/24 16:00 11/27/24 16:00 11/27/24 16:00 11/27/24 14:00
Lab Results
11/27/24 12:33
11/27/24 13:10
Troponin I 0.031 ng/ml 11/27/24 13:10
Nzu-M-Kmgrdebndig Pept 4060 pg/ml 11/27/24 13:10
Physical Exam
General: No Apparent Distress
HEENT: Normocephalic and Atraumatic
Respiratory: Other (NOONAN)
Cardiac: Negative JVD
GI: Soft, Non Tender and Other (Obese)
Musculoskeletal: No Clubbing, No Cyanosis and Edema (+3 bilateral lower extremity)
Skin: Warm, Dry and Other (Right groin site with 3 small openings in incision, fibrinous tissue, draining serosanguineous fluid)
Neuro: Awake, Alert and Oriented
Psych: Calm
Assessment / Plan
-
59-year-old male presenting to the ER with 1 month of general malaise, now with some shortness of breath
Has dehiscing right groin surgical incision with serosanguineous drainage
Plan:
-CTA abdomen/pelvis to mid thigh
-Admit to hospitalist
-IV antibiotics
-Santyl and wound care right groin
-May require right groin washout in OR pending what CT reveals (possibly Tuesday)
-Recommend cardiology
Data Reviewed
-
Labs: Labs Reviewed by me
--- NOTE | 2024-11-27 19:43 | HPS.HSE ---
Addendum entered and electronically signed by David Nileson MD, Resident 11/30/24 15:15:
Error, patient did meet criteria for sepsis on admission (tachycardia >100, tachypnea RR>20)
Addendum entered and electronically signed by Lety Gilbert MD 11/27/24 21:01:
I personally performed a history and physical exam of the patient and discussed management with the resident. I reviewed the resident's note and agree with the documented findings and plan of care HPI/CC.
GENERAL: well developed, well nourished, obese male in no apparent distress
HEENT: NC/AT--no O2 requirements
HEART: irreg irreg
LUNGS : clear to auscultation bilaterally
ABDOM: soft, nontender, nondistended, + bowel sounds
EXT: no cyanosis, clubbing-- 2+ LE edema bilaterally
NEUROLOGIC: grossly intact
SKIN: right groin wound dehiscence with foul smelling d/c
Allergies
Allergy/AdvReac Type Severity Reaction Status Date / Time
No Known Allergies Allergy Verified 11/27/24 11:19
Home Medications
methimazole 10 mg tablet 10 mg PO DAILY Thyroid 04/11/24
potassium chloride 20 mEq tablet,extended release 20 meq PO DAILY Electrolyte Repletion 05/22/24
amiodarone 200 mg tablet 200 mg PO BID #90 tabs 11/06/24
apixaban 5 mg tablet (Eliquis) 5 mg PO BID Blood clot prevention/tx #60 tabs 11/06/24
empagliflozin 10 mg tablet (Jardiance) 10 mg PO DAILY Heart Failure #30 tabs 11/06/24
furosemide 40 mg tablet (Lasix) 40 mg PO BID Fluid Retention/Swelling #60 tabs 11/06/24
sacubitril 24 mg-valsartan 26 mg tablet (Entresto) 1 tab PO BID Heart Disease/Condition #60 tabs 11/06/24
metoprolol succinate 50 mg tablet,extended release 24 hr 50 mg PO BID 11/27/24
Wound Dehiscence, s/p R Iliac Thromboembolectomy (11/06)--meets sepsis criteria (tachycardic, tachypneic) with likely groin infection--apprec vascular input--wound culture--cont IV zosyn--likely CT scan of leg/vessels per vascular--wound care consult
Acute Exacerbation of HFrEF--last echo from 10/30 shows severe LV dilation, severely reduced LVSF w/ EF of 5-10% and Stage II diastolic dysfunction (unclear if patient aware as family sais his EF last documents was 35% 1 year prior)--has BL pitting
edema, cough, but is saturating well w/ CXR findings negative for acute cardiopulmonary process--will give 24 hours of IV lasix BID then convert back to home doses--consider cards eval--ProBNP today was 4060, on last admission was 9160--- continue
with home GDMT metoprolol succinate, jardiance, entresto
hypokalemia--KCl replete
Permanent Afib with RVR-- ECG on admission shows Afib w/ RVR--consider cards consult- Cont Eliquis for now as no emergent surgical intervention is planned. If needed, can switch to IV heparin prior to any procedures--cont amio
Hyperthyroid - asymptomatic at this time. Will continue on Methimazole
DVT PPx - on Eliquis
Code - Full Code
Original Note:
Family Physician
-
Family Physician: Thomas Peñaloza MD
Chief Complaint
-
Fatigue, Feeling Week
History of Present Illness
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
thrombectomy who presented with fatigue/weakness.
Patient states that on 11/06/2024 he was discharged from following a stay wherein he had a thromboembolectomy for RLE critical limb ischemia (Dr. Wilkerson) where he was also treated for aspiration pneumonia and acute exacerbation of HFrEF. He states
that his wound has been 'feeling well' with at home dressing changes (though he says he did not the wound opening, remarks it was draining clear fluid) and his only symptom has been feeling weak and fatigued. He has not had any groin pain, swelling,
or difficulty moving his leg. He is not sure if his leg/ankle swelling is changed from normal, though he is aware of it.
His shortness of breath is at his baseline, which for him includes being short of breath climbing stairs. He states he is compliant with all his medication. He has not had any symptoms of fever, chills, weight gain, chest pain, headache, numbness,
tingling, nausea, vomiting, diarrhea, or difficulty ambulating. Of note, he was seen earlier today in for a follow up ultrasound (report pending), though he states the wound was not examined directly.
Medical History
Past Medical History
Past Medical History: Reports Arrhythmia and Hyperthyroidism (New diagnosis, on Methimazole)
Past Surgical History: Reports Appendectomy
Additional Past Surgical History:
RLE Thrombectomy (2023), LLE Thrombectomy (2022)
Social History
Tobacco: Smoker (1-2 packs per day, >40 years)
Alcohol: Occasional
Drug: None
Personal: Single
Living: Alone
Family History
Family History: CAD and Hypertension
Allergies / Home Medications
Allergies reflects when Allergies were last updated in [facility].
Home Medications with original date entered in [facility]
Allergy/Medication List:
NKDA
Review of Systems
-
History Source: Patient
A 12 point ROS was completed and negative except as noted: Yes
Constitutional: Reports Fatigue; Denies Fever, Weight Gain, Night Sweats or Chills
EENT: Reports No Symptoms
Respiratory: Reports Trouble Breathing
Cardiac: Denies Chest Pain or Palpitations
Abdomen/GI: Reports No Symptoms
: Reports No Symptoms
Musculoskeletal: Reports No Symptoms
Skin: Reports No Symptoms
Neurological: Reports No Symptoms
Endocrine: Reports No Symptoms
Hematologic/Lymphatic: Reports No Symptoms
Psych: Reports No Symptoms
Physical Exam
Vital Signs
Vital Signs
Temp Pulse Resp BP Pulse Ox
98.1 F 106 28 120/86 98
11/27/24 11:11 11/27/24 16:00 11/27/24 16:00 11/27/24 16:00 11/27/24 14:00
Physical Exam
General: Well Developed, Well Nourished, No Apparent Distress and Comfortable
HEENT: NormoCephalic, Anicteric, Moist mucous membranes, Atraumatic and PERRLA
Respiratory: Clear
Cardiac: S1/S2 and Irregular Rhythm
Breast: N/A
GI: Soft, Non Tender, Non Distended and Normal Bowel Sounds
Rectal: Deferred by Provider
Musculoskeletal: No Clubbing, No Cyanosis, Edema, Left Lower Extremity, Edema, Right Lower Extremity and Normal Gait & Station
Neuro: Awake, Alert, Oriented, Nonfocal/grossly intact and No Sensory Deficits
Psych: Calm and Intact Judgment/Insight
Laboratory Results
-
11/27/24 12:33
11/27/24 13:10
Laboratory Results
Total Bilirubin 1.9 mg/dl (0.2-1.3) H 11/27/24 13:10
AST 17 U/L (17-59) 11/27/24 13:10
ALT 14 U/L (0-50) 11/27/24 13:10
Alkaline Phosphatase 128 U/L (38-126) H 11/27/24 13:10
Troponin I 0.031 ng/ml 11/27/24 13:10
Impression/Plan
-
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
thrombectomy who presented with fatigue/weakness.
#Wound Dehiscence, s/p R Iliac Thromboembolectomy (11/06)
- Does not currently meet SIRS criteria for sepsis, on IV Zosyn for coverage.
- Wound cx sent, will follow in am and adjust abx accordingly
- Vascular seen and will follow. Planning for cross sectional imaging in AM. Possible debridement pending imaging. Rec dry dressings for now, will update after imaging.
- Will place wound care consult for dressing changes
#Acute Exacerbation of HFrEF
- last echo from 10/30 shows severe LV dilation, severely reduced LVSF w/ EF of 5-10% and Stage II diastolic dysfunction
- has BL pitting edema, cough, but is saturating well w/ CXR findings negative for acute cardiopulmonary process.
- ProBNP today was 4060, on last admission was 9160.
- On home lasix w/ KCl replenishment. Will hold PO and give IV Lasix and re-evaluate in AM.
- continue with home GDMT metoprolol succinate, jardiance, entresto
#Afib with RVR
- ECG on admission shows Afib w/ RVR.
- C/w Eliquis for now as no emergent surgical intervention is planned. If needed, can switch to IV heparin prior to procedure. OK to continue Amiodarone 200 BID
#Hypokalemia - On KCL replenishment at home. K on admission was 3.2. Will increase KCL to 40meq and check bmp in am.
#Hyperthyroid - asymptomatic at this time. Will continue on Methimazole
Diet - HF Diet, <2g sodium
DVT PPx - on Eliquis
Code - Full Code
[2024-11-27] MEDS: ENTRESTO 24 MG/26 MG 1 TAB PO (20:32)
[2024-11-27] MEDS: ELIQUIS 5 MG PO (20:32)
[2024-11-27] MEDS: PACERONE 200 MG PO (20:33)
[2024-11-27] MEDS: TOPROL XL 50 MG PO (20:33)
[2024-11-27] MEDS: LASIX 40 MG PO (20:33)
[2024-11-28 03:50] VITALS: BP 115/78
[2024-11-28 04:58] VITALS: BMI 38.4
[2024-11-28] MEDS: NICODERM TRANSDERMAL 7 MG TRANSDERM (06:33)
[2024-11-28 07:00] VITALS: BP 110/74
--- NOTE | 2024-11-28 07:10 | W.PN.HOSP.TC ---
Addendum entered and electronically signed by Lety Gilbert MD 11/28/24 17:53:
I saw and evaluated the patient independently. I reviewed the resident�s note and agree with findings and plan as documented by Dr. Nielson.
GENERAL: well developed, well nourished, obese male in no apparent distress
HEENT: NC/AT--no O2 requirements
HEART: irreg irreg
LUNGS : clear to auscultation bilaterally
ABDOM: soft, nontender, nondistended, + bowel sounds
EXT: no cyanosis, clubbing-- 2+ LE edema bilaterally
NEUROLOGIC: grossly intact
SKIN: right groin wound dehiscence with foul smelling d/c
Wound Dehiscence, s/p R Iliac Thromboembolectomy (11/06)--meets sepsis criteria (tachycardic, tachypneic) with likely groin infection--apprec vascular input--wound culture gm stain with many WBC and moderate gm positive cocci--cont IV zosyn-- CT
scan of leg shows fluid collection--apprec wound care consult--for surgery tomorrow 11/29/24--Eliquis NOW on hold
Acute Exacerbation of HFrEF--last echo from 10/30 shows severe LV dilation, severely reduced LVSF w/ EF of 5-10% and Stage II diastolic dysfunction (unclear if patient aware)--has BL pitting edema, cough, but is saturating well w/ CXR findings
negative for acute cardiopulmonary process--will give 24 hours of IV lasix BID then convert back to home doses--apprec cards--ProBNP today was 4060, on last admission was 9160--- continue with home GDMT metoprolol succinate, jardiance, entresto
hypokalemia--KCl replete
Permanent Afib with RVR-- ECG on admission shows Afib w/RVR--apprec cards-- hold Eliquis since surgical intervention is planned for 11/29/24--cont amio
Hyperthyroid - asymptomatic at this time. Will continue on Methimazole
DVT PPx - on Eliquis
Code - Full Code
Original Note:
Today's Communication/Plan
-
Hold Eliquis. Cleared for vascular surgery tomorrow. C/w Abx.
Assessment / Plan
Assessment / Plan
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
thrombectomy who presented with fatigue/weakness.
#Wound Dehiscence, s/p R Iliac Thromboembolectomy (11/06)
- Does not currently meet SIRS criteria for sepsis, on IV Zosyn (day 2) for coverage. Pending wound cx.
- Wound cx sent, will follow and adjust abx accordingly
- Vascular seen, planning to take for surgery tomorrow for R groin washout & wound VAC placement. Will hold Eliquis for now. Cardio to clear for surgery in setting of Afib & HFrEF
- Wound care consult placed
#Acute Exacerbation of HFrEF
- last echo from 10/30 shows severe LV dilation, severely reduced LVSF w/ EF of 5-10% and Stage II diastolic dysfunction
- has BL pitting edema, cough, but is saturating well w/ CXR findings negative for acute cardiopulmonary process.
- ProBNP today was 4060, on last admission was 9160.
- S/p x1 dose IV lasix. Will give another IV dose, then resume home PO lasix. C/w KCL 40meq for K replenishment. K today 3.6
- continue with home GDMT metoprolol succinate, jardiance, entresto
#Afib with RVR
- ECG on admission shows Afib w/ RVR.
- Will hold Eliquis as above in anticipation for surgery. OK to resume immediately after surgery. OK to continue Amiodarone 200 BID. Appreciate cardio recc.
#Hypokalemia (resolved) - On KCL replenishment at home. K on admission was 3.2. Will increase KCL to 40meq and check bmp in am.
#Hyperthyroid - asymptomatic at this time. Will continue on Methimazole.
Diet - HF Diet, <2g sodium
DVT PPx - on Eliquis
Code - Full Code
Anticipated Discharge: 24 - 48 hours
Subjective/Interval History
-
He has no acute complaints this morning. No new fevers, chills, groin pain, shortness of breath, orthopnea. His leg swelling and fatigue have improved slightly.
Objective Data
-
Labs:
Laboratory Results
11/28/24
06:38
WBC Pending
Hgb Pending
Hct Pending
Plt Count Pending
Sodium Pending
Potassium Pending
Chloride Pending
Carbon Dioxide Pending
BUN Pending
Creatinine Pending
Glucose Pending
Calcium Pending
Total Bilirubin Pending
AST Pending
ALT Pending
Alkaline Phosphatase Pending
Vital Signs:
Vital Signs
Temp Pulse Resp BP Pulse Ox
97.9 F 62 18 115/78 98
11/28/24 03:50 11/28/24 03:50 11/28/24 03:50 11/28/24 03:50 11/28/24 03:50
I&O
11/27/24 11/28/24 11/29/24
06:59 06:59 06:59
Intake Total 480 / 480
Balance 480 / 480
Review of Systems
-
History Source: Patient
Constitutional: Reports No Symptoms and Fatigue (improved since yesterday); Denies Fever, Weight Gain or Chills
EENT: Reports No Symptoms Reported
Respiratory: Reports No Symptoms
Cardiac: Denies Chest Pain, Diaphoresis, Palpitations or Orthopnea
Abdomen/GI: Denies Abdominal Pain, Nausea, Vomiting, Diarrhea or Constipated
Breast: Reports N/A
Genitourinary: Denies Dysuria, Frequency or Difficulty Voiding
Musculoskeletal: Reports Edema; Denies Joint Pain, Joint Swelling or Muscle Pain
Skin: Reports Other (Opening of prior surgical incision in the R groin)
Neuro: Denies Dizzy, Headache, Weakness, Numbness or Lightheadedness
Physical Exam
-
General: Well Developed, Well Nourished, No Apparent Distress, Comfortable and Appears Chronically Ill
HEENT: Normocephalic, Atraumatic, Moist Mucous Membranes and PERRLA
Respiratory: Crackles (BL Lower lung [place]); Negative Wheezes, Rhonchi or Non Labored Respirations
Cardiac: S1/S2 and Irregular Rhythm; Negative Murmur or Rub
Breast: N/A
GI: Soft, Nontender, Nondistended and Normal Bowel Sounds
Genito-urinary: Other (Fresh dressing on R groin wound, dry and intact)
Musculoskeletal: No Clubbing, No Cyanosis, Edema, Right Lower Extrem (1-2+ pitting edema) and Edema, Left Lower Extrem (1-2+ pitting edema)
Neuro: Awake, Alert and Oriented
Psych: Calm
[2024-11-28 07:36] LABS: Hematocrit 49.3 % (39.0-52.0); Hemoglobin 15.6 g/dL (13.0-18.0); Mean Corp Hgb Conc. 31.6 g/dL (33.0-37.0); Mean Corpuscular Hgb 31.5 pg (27.0-31.0); Mean Corpuscular Volume 99.6 fL (80.0-94.0); Mean Platelet Volume 9.6 fL (7.4-10.4); Platelet Count 306 10^3/uL (130-400); Red Blood Cell Count 4.95 10^6/uL (4.70-6.10); Red Cell Dist. Width 15.9 % (11.5-14.5); White Blood Cell Count 8.1 10^3/uL (4.8-10.8)
[2024-11-28] MEDS: ENTRESTO 24 MG/26 MG 1 TAB PO ×2 (07:57→19:44)
[2024-11-28] MEDS: ELIQUIS 5 MG PO (07:58)
[2024-11-28] MEDS: TAPAZOLE 10 MG PO (07:58)
[2024-11-28] MEDS: FARXIGA 10 MG PO (07:58)
[2024-11-28] MEDS: TOPROL XL 50 MG PO ×2 (07:58→19:44)
[2024-11-28] MEDS: PACERONE 200 MG PO ×2 (07:58→19:44)
[2024-11-28] MEDS: KCL 40 MEQ PO (08:01)
[2024-11-28] MEDS: LASIX 40 MG IV (08:01)
[2024-11-28 08:21] LABS: ALT (SGPT) 13 U/L (0-50); AST (SGOT) 18 U/L (17-59); Albumin 3.4 g/dl (3.5-5.0); Alkaline Phosphatase 127 U/L (38-126); Blood Urea Nitrogen 16 mg/dl (9-20); Calcium 8.7 mg/dl (8.4-10.2); Carbon Dioxide 27 mmol/L (22-30); Chloride 104 mmol/L (98-107); Estimated Creatinine Clearance 99 ml/min; Glucose 98 mg/dl (70-99); Potassium 3.6 mmol/L (3.5-5.1); Sodium 141 mmol/L (135-145); Total Bilirubin 1.8 mg/dl (0.2-1.3); eGFR > 60.00
[2024-11-28 11:00] VITALS: BP 112/76
--- NOTE | 2024-11-28 12:27 | W.PN.UPDATE ---
Update Note
Progress Note Update
Seen and examined. Patient without significant complaints this morning. No significant pain. Right groin incision as noted in prior notes. Dehiscence at the inferior aspect and superior aspect. Likely not healed just deep to that. Serous
drainage noted. No purulent drainage. No bleeding. CT scan reviewed. Demonstrates collection superficial to the femoral bifurcation vessels. No evidence of pseudoaneurysm. Plan/recommend washout right groin. Discussed with patient likely
keeping superficial tissues open and packing or VAC placement. May require sartorius muscle flap closure, but hopefully not. Will likely plan in OR tomorrow likely.
--- NOTE | 2024-11-28 12:32 | W.PN.VS ---
Today's Communication / Plan
-
Patient seen and examined at bedside with Dr. Costa Holder, below plan reviewed with attending.
Assessment/Plan
-
Assessment: 59-year-old male status post right lower extremity thromboembolectomy for acute limb ischemia in mid October, with wound breakdown of the right groin incision
Plan:
Tentative OR for tomorrow for right groin washout and likely wound VAC placement
N.p.o. after midnight
[place] held, reviewed with hospitalist Dr. Gilbert via [place] text
Subjective Data
-
Date of Service: November 28, 2024
Patient seen and examined at chair side, offers no complaints. Denies nausea, fever, chills, nausea, and vomiting. Does endorse continued drainage at right groin.
Objective Data
-
Vital Signs
Temp Pulse Resp BP Pulse Ox
97.7 F 88 18 112/76 99
11/28/24 11:00 11/28/24 11:00 11/28/24 11:00 11/28/24 11:00 11/28/24 11:00
Intake and Output
11/27/24 11/28/24 11/29/24
06:59 06:59 06:59
Intake Total 480 / 480 240 / 240
Output Total 1850 / 1850
Balance 480 / 480 -1610 / -1610
Intake:
Oral fluids 480 / 480 240 / 240
Output:
Urine, Voided 1850 / 1850
Other:
Number of approximated MODERATE 3
amounts of urine
Lab Results
11/28/24 06:38
11/28/24 06:38
Calcium 8.7 mg/dl (8.4-10.2) 11/28/24 06:38
Total Bilirubin 1.8 mg/dl (0.2-1.3) H 11/28/24 06:38
AST 18 U/L (17-59) 11/28/24 06:38
ALT 13 U/L (0-50) 11/28/24 06:38
Alkaline Phosphatase 127 U/L (38-126) H 11/28/24 06:38
Total Protein 6.0 g/dl (6.3-8.2) L 11/28/24 06:38
Albumin 3.4 g/dl (3.5-5.0) L 11/28/24 06:38
Physical Exam
-
No apparent distress resting in chair comfortably
No tachycardia
No dyspnea on room air
Right groin surgical incision with dehiscence at upper and lower incision pole and serous drainage, non-malodorous, no erythema, no tenderness with palpation
--- NOTE | 2024-11-28 12:45 | WOUNDNOTE ---
[facility] RN note: Patient admitted with HF, wound dehiscence.
See H&P for complete history.
PMH: 10/2024 R iliac thrombectomy, a fib (Eliquis), obesity.
Wound Location and type/assessment: Patient admitted with: R groin full thickness surgical wound, pink with yellow fibrin, +surrounding erythema, large amount of serous drainage. Coccyx mild MASD (liner red/intact). Faint linear red tevin R
anterior ankle from his sock.
Appetite: on 2gm sodium diet. NPO after midnight for R groin washout with vac.
Pressure redistribution devices in place: [employer] air bed. Patient is mobile.
Plan: R groin dressing changed. Air chair cushion given.
Discussed with CARROL Grant.
Care plan to be updated and will follow as needed.
Note to case management of equipment requested for discharge: Patient will probably need VN for wound vac at discharge.
[2024-11-28 15:00] VITALS: BP 129/87
--- NOTE | 2024-11-28 16:11 | CM ---
Patient seen at bedside. Patient stated that he lives alone in a 3 story home with no DME at this time. Patient has not completed MA application and was anticipating that he would talk to Iqra from [facility]. Patient uses the [facility] for
pharmacy needs. Patient PCP is Dr. Tucker. Per patient for surgery tomorrow with possible wound vac following. Patient will need VN and possible antibiotics. CM will continue to follow for discharge planning needs.
Plan; home with VN and watch for antibiotics/ wound care possible SNF.
--- NOTE | 2024-11-28 16:15 | CON.CAR ---
Addendum entered and electronically signed by Estela Wagner MD 11/28/24 16:56:
I saw and examined the patient.
The Jewel Bearing Broacher's note was reviewed and I agree with the note.
Comment: Patient well-known to our service. Now admitted with right groin drainage. Plan is for surgical right groin evaluation/washout and wound VAC. He has multiple cardiovascular issues but currently stable from a cardiac point of view. He
has atrial fibrillation with multiple peripheral thromboembolic events. 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 He denies chest pain or new shortness of breath. Volume status appears
fairly stable. Avoid excess volume. He has upcoming evaluation for pulmonary vein isolation and consult for ICD as an outpatient with electrophysiology.
-Currently he is stable from a cardiac point of view to proceed with upcoming surgery as outlined. EKG is abnormal but stable. He is at high but not prohibitive cardiovascular risk to proceed. And would proceed with planned procedure tomorrow.
We will continue to follow closely.
-Continue telemetry.
-Resume oral anticoagulation as soon as possible after procedure given multiple thromboembolic events prior.
-Continue current medications.
Original Note:
Consultation
Consultation Request
Date/Time Consultation Performed: 11/28/24
Requesting Provider: Dr. Nielson Resident
Performing Provider: Mely Cox PA-C for Dr. Estela Wagner
Reason for Consultation: preop eval
Medical History
-
Chief Complaint: malaise, R groin drainage
History of Present Illness:
Patient is a 59-year-old male with past medical history of suspected cardioembolic occlusion of left common femoral artery related to likely persistent atrial fibrillation and presumed tachycardia mediated cardiomyopathy with EF 10 to 15% 03/2024.
Cardiac catheterization this year with nonobstructive coronary disease. He also has hyperthyroidism on methimazole. He has history of alcohol and tobacco abuse and issues with medication and follow-up noncompliance. He was admitted last month with
cold R foot and found to have right iliac occlusion s/p thrombectomy 10/29/2024 by vascular. He was in afib during this visit with RVR and started on amiodarone. He now presents back to with malaise and clear drainage from groin site, no blood.
Reports may have felt occasionally feverish however did not check his temperature. CTAP with evidence of R groin seroma, plan for washout and likely wound vac placement in AM per vascular. Cardiology consulted for preop evaluation. Denies CP.
Reports baseline SOB. CTAP without evidence of pleural effusions.
PMH:
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
Persistent atrial fibrillation, first discovered July 2023
Chronic OAC with eliquis
Chronic HFrEF
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
NSVT
Hyperthyroidism
Noncompliance
Depression
History of ETOH and tobacco abuse
Obesity
Past Medical History
Past Medical History: Other (See HPI)
Past Surgical History: Other (Left common femoral embolectomy 2022)
Social History
Tobacco: Smoker
Drug: None
Personal: Single
Living: Alone
Family History
Family History: Reviewed & Not Pertinent
Allergies / Home Medications
Allergy/AdvReac Type Severity Reaction Status Date / Time
No Known Allergies Allergy Verified 11/27/24 11:19
�Medication �Instructions �Recorded �Confirmed �Type
methimazole 10 mg tablet 10 mg PO DAILY Thyroid 04/11/24 11/27/24 History
potassium chloride 20 mEq 20 meq PO DAILY Electrolyte 05/22/24 11/27/24 History
tablet,extended release Repletion
amiodarone 200 mg tablet 200 mg PO BID #90 tabs 11/06/24 11/27/24 Rx
apixaban 5 mg tablet (Eliquis) 5 mg PO BID Blood clot 11/06/24 11/27/24 Rx
prevention/tx #60 tabs
empagliflozin 10 mg tablet 10 mg PO DAILY Heart Failure #30 11/06/24 11/27/24 Rx
(Jardiance) tabs
furosemide 40 mg tablet (Lasix) 40 mg PO BID Fluid 11/06/24 11/27/24 Rx
Retention/Swelling #60 tabs
sacubitril 24 mg-valsartan 26 mg 1 tab PO BID Heart 11/06/24 11/27/24 Rx
tablet (Entresto) Disease/Condition #60 tabs
metoprolol succinate 50 mg 50 mg PO BID 11/27/24 11/27/24 History
tablet,extended release 24 hr
Review of Systems
-
History Source: Patient
All other systems: Negative unless noted
Physical Exam
Vital Signs
Temp Pulse Resp BP Pulse Ox
97.8 F 76 18 129/87 99
11/28/24 15:00 11/28/24 15:00 11/28/24 15:00 11/28/24 15:00 11/28/24 15:00
Lab Results
11/28/24 06:38
11/28/24 06:38
Troponin I 0.031 ng/ml 11/27/24 13:10
Hqv-F-Gsmcahvtcun Pept 4060 pg/ml 11/27/24 13:10
Physical Exam
General: No Apparent Distress, Comfortable and Other (sitting in chair)
HEENT: Normocephalic, Anicteric and Moist Mucous Membranes
Respiratory: Clear and Non Labored Respirations
Cardiac: S1/S2 and Irregular Rhythm
GI: Soft, Non Tender, Non Distended and Normal Bowel Sounds
Musculoskeletal: No Clubbing, No Cyanosis and Edema (1+ edema of B/L ankles)
Skin: Warm and Dry
Neuro: AO x 3
Impression / Plan
-
Primary Barley Steeper: Dr. Clements
Assessment:
Presentation with malaise
R groin drainage, suspected seroma
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
Persistent atrial fibrillation, first discovered July 2023
Chronic OAC with eliquis
Chronic HFrEF
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
NSVT
Hyperthyroidism
Noncompliance
Depression
History of ETOH and tobacco abuse
Obesity
ECHO 04/04/2024: EF 10 to 15%, severe global hypokinesis, mild MR, trace TR, PAP 30 to 33 mmHg
Cardiac catheterization 05/22/2024: Nonobstructive coronary disease with normal to mildly elevated right and left-sided filling pressures with normal cardiac output
Echocardiogram 10/30/2024: Severely dilated left ventricle, severely reduced LV systolic function, global hypokinesis with ejection fraction of 5-10%, moderate to severe eccentric TR with PA pressure of 30-35 mmHg, small pericardial effusion.
Plan:
-Patient with history of cardioembolic occlusion of left common femoral artery 06/2023 presented back to [facility] last month due to right iliac artery occlusion status post thromboembolectomy 10/29/2024. During that time was also noted to
be in persistent rapid A-fib initially discovered 07/2023 with history of noncompliance with medications. Also with known low EF suspected tachycardia mediated status post cath 05/2024 with nonobstructive CAD. He presented back to the ER due to
generalized malaise and was noted to have a suspected seroma of his right groin. Vascular is following and is planning for right groin washout with likely wound VAC placement in a.m. Cardiology has been consulted for preoperative risk assessment
-He is on room air with stable O2 saturations. no CP or SOB above his reported baseline
-CT of the abdomen and pelvis with mild atelectasis however no evidence of pleural effusions. proBNP 4060 and is receiving IV lasix 40mg daily as with some LE edema. weight trending down from admission, Cr up slightly to 1.1, likely hold IV lasix
tomorrow morning preproceure. was on po lasix 40mg BID prior to admission
-remains in afib with adequate rate control. continue toprol and amiodarone. QTc stable by EKG 11/27.
-eliquis on hold with plan for procedure in AM. given recent R artery occlusion requiring intervention, would plan to resume OAC as soon as able post procedure when ok per vascular surgery
-given history of NSVT and CM, would plan to keep K>4 and mag>2. replete K, 3.6 on 11/28.
-given risk factors including EF 5-10% by echo 10/30/24, patient is felt to be high cardiovascular risk for any procedure, however this risk is not prohibitive.
-would follow on tele perioperatively
-his prior noncompliance reportedly secondary to financial issues. patient without insurance, working on medical assistance. he had been scheduled for CV 11/26 however cancelled due to no insurance/cost.
-he is scheduled for EP evaluation 12/03/24 to discuss options regarding afib ie. ablation and ICD placement.
Data Reviewed
-
EKG: Tracing Personally Visualized and interpreted
CT Scan: Report Reviewed by me
Medical Tests (Nuc Med, Echo etc): Report Reviewed by me
Labs: Labs Reviewed by me
Old Records: Reviewed
[2024-11-28 19:40] VITALS: BP 101/69
[2024-11-28 23:44] VITALS: BP 105/72
[2024-11-29] VITALS (17 sets, daily range): BP systolic 87–114; BP diastolic 47–86; BMI 38.2; BMI 38.4
--- NOTE | 2024-11-29 06:25 | W.DCSUMMARY ---
Documented by User: David Nielson MD, Resident 12/04/24 14:15
Discharge Summary
Discharge Data
Date of Admission: 11/27/24
Date of Discharge: 12/04/24
Total time spent discharging patient (in min): >30min
-
Pending Results: No
Hospital Course
Discharging Physician : Dr. David Nielson, Dr. Lety Gilbert
Disposition : Home w/ VN
Primary care physician : Thomas Peñaloza
Principal Discharge diagnosis : Wound Dehiscence s/p R groin washout of seroma w/ Wound VAC placement, Acute Exacerbation of HFrEF, Hypokalemia
Chronic Discharge diagnosis : Afib w/ RVR, Hyperthyroidism, Current Tobacco Use
Hospital Course :
Buster Velazquez is a 59 year old man who presented to [facility] after several weeks of feeling weak and fatigued. He had been discharged from on 11/06/24 after undergoing R Iliac Thromboembolectomy and was managing his wound dressing changes at home. On
exam, he was volume overloaded with BL LE swelling and his R groin closure from prior procedure had dehisced. Patient met SIRS criteria for sepsis on admission and was given a dose of IV Zosyn. Wound cultures were drawn. Extremity arterial study was
done (results below) which ruled out significant stenosis/occlusion. He was admitted to with plans for CT imaging of the abdomen and pelvis to plan for washout vs. observation & management of acute exacerbation of HFrEF.
Repeat CT imaging demonstrated seroma vs. hematoma and the decision was made to pursue operative management with a wound debridement with wound vac placement. His Eliquis was held in anticipation of surgery. Cardiology was consulted to clear the
patient for the procedure in light of severely reduced cardiac function (last Echo 5-10% EF). Patient was cleared for surgery and underwent wound debridement and wound vac placement. Cultures of the wound were done intra-operatively and demonstrated
NG.
He received IV Lasix dosing leading up to his procedure; resulting hypokalemia was repleted.
During the procedure the patient required norepinephrine, vasopressin and phenylephedrine intraoperatively to maintain pressures, though was taken off post operatively. Immediately post op he was hypotensive and very lethargic. Distal pulses of the
LE not found with Doppler per nursing. Patient was seen immediately and was eventually arousable and conversant. The decision was made, given low EF and cardiac dysfunction, to observe overnight in the ICU. He was put on supplemental O2. The
arterial line was kept and patient was transferred to the ICU.
The following day the patient was back to his baseline and without acute findings. His arterial line was taken out, he was weaned off of O2, and he was downgraded to IVU. His Eliquis was restarted post op. While he was admitted he was seen by
cardiology who increased his metoprolol succinate to 75mg BID and reduced his amiodarone to 200mg QD. The rest of his GDMT for heart failure was kept the same.
His chronic hyperthyroidism was managed throughout the hospital stay with methimazole 10mg TID.
He was discharged home with VN for assistance in changing the wound VAC and given instructions to follow up with Vascular Surgery on 12/17/2024 and with Pulmonology in 4-6 weeks.
Important imaging findings :
US Periph Art LOWER Ext w MAUREEN:
RIGHT LOWER EXTREMITY: MAUREEN within normal limits at 1.15. TBI within normal limits at 0.79. Arterial duplex examination reveals multiphasic waveforms from the common femoral artery through the popliteal artery with no focal velocity elevations to
suggest significant stenosis
LEFT LOWER EXTREMITY: MAUREEN within normal limits at 1.06. TBI moderately reduced at 0.52. Arterial duplex examination reveals multiphasic waveforms from the common femoral artery through the popliteal artery with no focal velocity elevations to
suggest significant stenosis.
CR Chest - 2 Views:
Patient is slightly rotated to the right. Hazy opacity over bilateral lower lungs on the frontal projection related to overlying soft tissues. Lung volumes slightly low. No dense airspace consolidation identified. No effusion or pneumothorax.
Moderate cardiomegaly is unchanged. Mediastinal silhouette within normal limits. Pulmonary vasculature within normal limits. No acute osseous abnormality is seen. Moderate degenerative changes thoracic spine with multilevel bridging osteophyte
formation.
IMPRESSION: No acute pulmonary process identified radiographically. Unchanged cardiomegaly.
CT Abd/pelvis Angio W/wo Iv:
FINDINGS: The patient is noted to be status post right iliac thrombectomy in the interval since prior CTA.
CTA: The abdominal aorta is normal in caliber with calcific atherosclerotic changes and likely small volume soft plaque. There is some atherosclerotic changes of the common iliac arteries bilaterally. In comparison to prior study, blood flow is seen
through the right common iliac artery. Blood flow is seen through the left common iliac artery. The external iliac arteries are approximately equal and symmetric bilaterally. Incidental note is again made of right hepatic artery origin from the
abdominal aorta, developmental variant of normal. The renal arteries, SMA and ELLIOTT are patent. Small soft tissue fluid collection with surrounding thickened stranding is seen in the right groin extending anteriorly from the vasculature measuring
approximately 4 cm in overall greatest dimension without active blood flow within and some mild surrounding stranding. There is no air-fluid level within.
Chest: The included lung bases contain some mild dependent subsegmental atelectasis.
Abdomen: The stomach is filled with food material likely accounting for contracted gallbladder. There are no findings to suggest biliary tract dilatation. There is no focal intrinsic abnormality of the pancreas, spleen, adrenal glands or kidneys
except for a possible small left renal cyst. There is no retroperitoneal lymphadenopathy. Some colonic diverticulosis is noted. There is no intestinal obstruction or free air. Degenerative changes are noted within the lumbar spine.
Pelvis: The urinary bladder is unopacified and incompletely distended with likely relative diffuse wall thickening due to underdistention. There is no true pelvis free fluid or significant lymphadenopathy.
IMPRESSION:
Patent right common iliac artery in this patient with apparent recent right iliac thrombectomy.
Small abnormal focal fluid collection with thickened periphery and surrounding stranding within the anterior soft tissues of the right groin without blood flow within. Most likely differential diagnostic possibility would be a seroma. Hematoma or
infected collection less likely. No findings on this study to suggest pseudoaneurysm.
Additional nonurgent findings, as noted above.
Procedure findings :
Right groin incision and drainage with washout, and wound VAC placement:
Successful removal of seroma and washout of nonhealing wound
Discharge Plan
-
Patient Disposition: Home with Home Care
Discharge Diagnosis/Procedures: Acute Exacerbation of Congestive Heart Failure
Atrial Fibrillation with Rapid Ventricular Response
Congestive Heart Failure
Post Operative Wound Complication w/ infected seroma
Condition: Good
Diet: Low Cholesterol and 2 Gram Sodium
Driving Restrictions: As prior to admission
Bathing Restrictions: None
Other Services: VN
Activity Restrictions/Additional Instructions:
Wound Care Instructions
R groin: Black foam to 125mmhg, can add piece of Edy seal in groin crease for better seal.
Change every 48 - 72 hours (i. e. [id number]-Eokomeo) and prn if unable to obtain a seal. Low Intensity, Continuous at 125 mmHg. Upon discharge or transfer to another facility, remove VAC foam and apply NS moistened gauze dressing unless
home VAC unit available.
Follow up with vascular as scheduled.
Instructions: *[facility] Heart Failure Instructions
Referrals:
[facility] [Outside]
Kathie Abernathy PA-C [Specified Professional Personl] - 12/17/24 10:30 am
Thomas Peñaloza MD [Family Provider] -
Dereck Henderson MD [Active] - in four to six weeks (Eventually needs PFTs, yearly low-dose lung cancer screening CT, possible inhalers, smoking cessation counseling, sleep apnea evaluation)
Tyrel Solorio DO [Active] - 12/18/24 9:40 am (Your EP appointment has changed. You are now scheduled on December 18 at 9:40 at the [facility]. Please call with questions)
Additional Discharge Medication Instructions: Take Amoxicillin-Clavulanate twice per day AND Ciprofloxacin twice per day
Take Amiodarone 200mg ONCE per day.
Take Metoprolol Succinate 75mg (three 25mg) TWICE per day.
Continue all other home medications as prescribed.
Follow up with [facility] in 4-6 weeks for evaluation of possible Sleep Apnea
Prescriptions:
New
amiodarone 200 mg Tablet
200 mg PO DAILY 30 Days Qty: 30 0RF
metoprolol succinate 25 mg Tablet Extended Release 24 Hr
75 mg PO BID 30 Days Qty: 180 0RF
ciprofloxacin HCl 500 mg Tablet
500 mg PO Q12H 10 Days Qty: 20 0RF
Rx Instructions:
aware drug interaction with amiodarone; potential benefits outweigh risks
amoxicillin-pot clavulanate 875-125 mg Tablet
1 tab PO Q12 10 Days Qty: 20 0RF
Continued
methimazole 10 mg tablet
10 mg PO DAILY
potassium chloride 20 mEq Tablet Extended Release
20 meq PO DAILY
furosemide [Lasix] 40 mg tablet
40 mg PO BID Qty: 60 0RF
Eliquis 5 mg Tablet
5 mg PO BID Qty: 60 0RF
Jardiance 10 mg Tablet
10 mg PO DAILY Qty: 30 0RF
sacubitril-valsartan [Entresto] 24-26 mg Tablet
1 tab PO BID Qty: 60 0RF
Discontinued
amiodarone 200 mg Tablet
200 mg PO BID Qty: 90 0RF
Rx Instructions:
twice daily for 1 month then 200 mg daily.
metoprolol succinate 50 mg tablet extended release 24 hr
50 mg PO BID
Discharge Orders:
Discharge Patient (As Directed); Ordered 12/05/24
Ordered By: David Nielson
Care Plan Goals
Care Plan Goals:
Problem: Readiness for enhanced knowledge related to diagnosis and treatment plan
Goal: Understand your diagnosis and treatment plan needs, including medications if applicable.
Instructions: Know your diagnosis, underlying causes and treatment plan options, including medications if applicable. Consult with your health care team to learn about your diagnosis and treatment plan, including medications if applicable.
Discharge Date and Time
Print Language: AMERICAN

Documented by User: Bonnie Garcia MD 12/05/24 14:19
Discharge Summary
Discharge Data
Date of Admission: 11/27/24
Date of Discharge: 12/05/24
Hospital Course
Discharging Physician : Dr. David Nielson, Dr. Lety Gilbert
Disposition : Home w/ VN
Primary care physician : Thomas Peñaloza
Principal Discharge diagnosis : Wound Dehiscence s/p R groin washout of seroma w/ Wound VAC placement, Acute Exacerbation of HFrEF, Hypokalemia
Chronic Discharge diagnosis : Afib w/ RVR, Hyperthyroidism, Current Tobacco Use
Hospital Course :
Buster Velazquez is a 59 year old man who presented to ED after several weeks of feeling weak and fatigued. He had been discharged from on 11/06/24 after undergoing R Iliac Thromboembolectomy and was managing his wound dressing changes at home. On
exam, he was volume overloaded with BL LE swelling and his R groin closure from prior procedure had dehisced. Patient met SIRS criteria for sepsis on admission and was given a dose of IV Zosyn. Wound cultures were taken. Extremity arterial study was
done (results below) which ruled out significant stenosis/occlusion. He was admitted to with plans for CT imaging of the abdomen and pelvis to plan for washout vs. observation & management of acute exacerbation of HFrEF.
Repeat CT imaging demonstrated seroma vs. hematoma and the decision was made to pursue operative management with a wound debridement with wound vac placement. His Eliquis was held in anticipation of surgery. Cardiology was consulted to clear the
patient for the procedure in light of severely reduced cardiac function (last Echo 5-10% EF). Patient was cleared for surgery and underwent wound debridement and wound vac placement. Cultures of the wound were done intra-operatively grew
Enterococcus, E. coli, Pseudomonas; sensitivities reviewed (pansensitive).
He received IV Lasix dosing leading up to his procedure; resulting hypokalemia was repleted.
During the procedure the patient required norepinephrine, vasopressin and phenylephedrine intraoperatively to maintain pressures, though was taken off post operatively. Immediately post op he was hypotensive and very lethargic. Patient was
eventually arousable and conversant. The decision was made, given low EF and cardiac dysfunction, to observe overnight in the ICU. He was put on supplemental O2. The arterial line was kept and patient was transferred to the ICU.
The following day the patient was back to his baseline and without acute findings. His arterial line was taken out, he was weaned off of O2, and he was downgraded to IVU. His Eliquis was restarted post op. While he was admitted he was seen by
cardiology who increased his metoprolol succinate to 75mg BID and reduced his amiodarone to 200mg QD. The rest of his GDMT for heart failure was kept the same.
His chronic hyperthyroidism was managed throughout the hospital stay with methimazole 10mg TID.
He was discharged home with VN for assistance in changing the wound VAC and given instructions to follow up with Vascular Surgery on 12/17/2024 and with Pulmonology in 4-6 weeks.
He was also sent home with antibiotics Cipro 500 mg every 12 hours and Augmentin 1 tablet every 12 hours, for 10 days, per ID recommendation.
Important imaging findings :
US Periph Art LOWER Ext w MAUREEN:
RIGHT LOWER EXTREMITY: MAUREEN within normal limits at 1.15. TBI within normal limits at 0.79. Arterial duplex examination reveals multiphasic waveforms from the common femoral artery through the popliteal artery with no focal velocity elevations to
suggest significant stenosis
LEFT LOWER EXTREMITY: MAUREEN within normal limits at 1.06. TBI moderately reduced at 0.52. Arterial duplex examination reveals multiphasic waveforms from the common femoral artery through the popliteal artery with no focal velocity elevations to
suggest significant stenosis.
CR Chest - 2 Views:
Patient is slightly rotated to the right. Hazy opacity over bilateral lower lungs on the frontal projection related to overlying soft tissues. Lung volumes slightly low. No dense airspace consolidation identified. No effusion or pneumothorax.
Moderate cardiomegaly is unchanged. Mediastinal silhouette within normal limits. Pulmonary vasculature within normal limits. No acute osseous abnormality is seen. Moderate degenerative changes thoracic spine with multilevel bridging osteophyte
formation.
IMPRESSION: No acute pulmonary process identified radiographically. Unchanged cardiomegaly.
CT Abd/pelvis Angio W/wo Iv:
FINDINGS: The patient is noted to be status post right iliac thrombectomy in the interval since prior CTA.
CTA: The abdominal aorta is normal in caliber with calcific atherosclerotic changes and likely small volume soft plaque. There is some atherosclerotic changes of the common iliac arteries bilaterally. In comparison to prior study, blood flow is seen
through the right common iliac artery. Blood flow is seen through the left common iliac artery. The external iliac arteries are approximately equal and symmetric bilaterally. Incidental note is again made of right hepatic artery origin from the
abdominal aorta, developmental variant of normal. The renal arteries, SMA and ELLIOTT are patent. Small soft tissue fluid collection with surrounding thickened stranding is seen in the right groin extending anteriorly from the vasculature measuring
approximately 4 cm in overall greatest dimension without active blood flow within and some mild surrounding stranding. There is no air-fluid level within.
Chest: The included lung bases contain some mild dependent subsegmental atelectasis.
Abdomen: The stomach is filled with food material likely accounting for contracted gallbladder. There are no findings to suggest biliary tract dilatation. There is no focal intrinsic abnormality of the pancreas, spleen, adrenal glands or kidneys
except for a possible small left renal cyst. There is no retroperitoneal lymphadenopathy. Some colonic diverticulosis is noted. There is no intestinal obstruction or free air. Degenerative changes are noted within the lumbar spine.
Pelvis: The urinary bladder is unopacified and incompletely distended with likely relative diffuse wall thickening due to underdistention. There is no true pelvis free fluid or significant lymphadenopathy.
IMPRESSION:
Patent right common iliac artery in this patient with apparent recent right iliac thrombectomy.
Small abnormal focal fluid collection with thickened periphery and surrounding stranding within the anterior soft tissues of the right groin without blood flow within. Most likely differential diagnostic possibility would be a seroma. Hematoma or
infected collection less likely. No findings on this study to suggest pseudoaneurysm.
Additional nonurgent findings, as noted above.
Procedure findings :
Right groin incision and drainage with washout, and wound VAC placement:
Successful removal of seroma and washout of nonhealing wound
Discharge Plan
-
Patient Disposition: Home with Home Care
Discharge Diagnosis/Procedures: Acute Exacerbation of Congestive Heart Failure
Atrial Fibrillation with Rapid Ventricular Response
Congestive Heart Failure
Post Operative Wound Complication w/ infected seroma
Condition: Good
Diet: Low Cholesterol and 2 Gram Sodium
Driving Restrictions: As prior to admission
Bathing Restrictions: None
Other Services: VN
Activity Restrictions/Additional Instructions:
Wound Care Instructions
R groin: Black foam to 125mmhg, can add piece of Edy seal in groin crease for better seal.
Change every 48 - 72 hours (i. e. [id number]-Vaaxnvcpbe-Thbvmyj) and prn if unable to obtain a seal. Low Intensity, Continuous at 125 mmHg. Upon discharge or transfer to another facility, remove VAC foam and apply NS moistened gauze dressing unless
home VAC unit available.
Follow up with vascular as scheduled.
Instructions: *[facility] Heart Failure Instructions
Referrals:
[facility] [Outside]
Kathie Abernathy PA-C [Specified Professional Personl] - 12/17/24 10:30 am
Thomas Peñaloza MD [Family Provider] -
Dereck Henderson MD [Active] - in four to six weeks (Eventually needs PFTs, yearly low-dose lung cancer screening CT, possible inhalers, smoking cessation counseling, sleep apnea evaluation)
Tyrel Solorio DO [Active] - 12/18/24 9:40 am (Your EP appointment has changed. You are now scheduled on December 18 at 9:40 at the [facility] office. Please call with questions)
Additional Discharge Medication Instructions: Take Amoxicillin-Clavulanate twice per day AND Ciprofloxacin twice per day
Take Amiodarone 200mg ONCE per day.
Take Metoprolol Succinate 75mg (three 25mg) TWICE per day.
Continue all other home medications as prescribed.
Follow up with [facility] in 4-6 weeks for evaluation of possible Sleep Apnea
Prescriptions:
New
amiodarone 200 mg Tablet
200 mg PO DAILY 30 Days Qty: 30 0RF
metoprolol succinate 25 mg Tablet Extended Release 24 Hr
75 mg PO BID 30 Days Qty: 180 0RF
ciprofloxacin HCl 500 mg Tablet
500 mg PO Q12H 10 Days Qty: 20 0RF
Rx Instructions:
aware drug interaction with amiodarone; potential benefits outweigh risks
amoxicillin-pot clavulanate 875-125 mg Tablet
1 tab PO Q12 10 Days Qty: 20 0RF
Continued
methimazole 10 mg tablet
10 mg PO DAILY
potassium chloride 20 mEq Tablet Extended Release
20 meq PO DAILY
furosemide [Lasix] 40 mg tablet
40 mg PO BID Qty: 60 0RF
Eliquis 5 mg Tablet
5 mg PO BID Qty: 60 0RF
Jardiance 10 mg Tablet
10 mg PO DAILY Qty: 30 0RF
sacubitril-valsartan [Entresto] 24-26 mg Tablet
1 tab PO BID Qty: 60 0RF
Discontinued
amiodarone 200 mg Tablet
200 mg PO BID Qty: 90 0RF
Rx Instructions:
twice daily for 1 month then 200 mg daily.
metoprolol succinate 50 mg tablet extended release 24 hr
50 mg PO BID
Discharge Orders:
Discharge Patient (As Directed); Ordered 12/05/24
Ordered By: David Nielson
Care Plan Goals
Care Plan Goals:
Problem: Readiness for enhanced knowledge related to diagnosis and treatment plan
Goal: Understand your diagnosis and treatment plan needs, including medications if applicable.
Instructions: Know your diagnosis, underlying causes and treatment plan options, including medications if applicable. Consult with your health care team to learn about your diagnosis and treatment plan, including medications if applicable.
Discharge Date and Time
Print Language: AMERICAN
--- NOTE | 2024-11-29 06:26 | W.PN.HOSP.TC ---
Addendum entered and electronically signed by Lety Gilbert MD 11/29/24 16:18:
I saw and evaluated the patient independently. I reviewed the resident�s note and agree with findings and plan as documented by Dr. Nielson.
GENERAL: well developed, well nourished, obese male in no apparent distress
HEENT: NC/AT--no O2 requirements
HEART: irreg irreg
LUNGS : clear to auscultation bilaterally
ABDOM: soft, nontender, nondistended, + bowel sounds
EXT: no cyanosis, clubbing-- 2+ LE edema bilaterally
NEUROLOGIC: grossly intact
SKIN: right groin wound dehiscence with foul smelling d/c
Called to see patient in PACU. Patient with low blood pressure, very lethargic needing sternal rub to awaken, Doppler pulses to both legs only. Arrived at bedside and patient does wake up and speak to me. Explained that we were going to put him
in the ICU overnight at which point he asked 'for a beer on the way over there'. A-line reading systolic blood pressure of 100, manual blood pressure cuff reading systolic blood pressure of 89--would presumably rely on A-line readings. Patient
with 5 to 10% ejection fraction but did not get significant amounts of fluid in the OR--did however, receive norepinephrine, vasopressin and phenylephrine intraoperatively. Currently not on any of those.
Wound Dehiscence, s/p R Iliac Thromboembolectomy (11/06)--meets sepsis criteria (tachycardic, tachypneic) with likely groin infection--apprec vascular input--wound culture gm stain with many WBC and moderate gm positive cocci, culture itself still
pending--cont IV zosyn-- CT scan of leg shows fluid collection--apprec wound care consult--s/p OR washout with wound vac 11/29/24--Eliquis can restart tonight per vascular
Acute Exacerbation of HFrEF--last echo from 10/30 shows severe LV dilation, severely reduced LVSF w/ EF of 5-10% and Stage II diastolic dysfunction (unclear if patient aware)--has BL pitting edema, cough, but is saturating well w/ CXR findings
negative for acute cardiopulmonary process--will give IV lasix BID as tolerated then convert back to home doses--apprec cards--ProBNP today was 4060, on last admission was 9160--- continue with home GDMT metoprolol succinate, jardiance, entresto
hypokalemia--KCl replete
Permanent Afib with RVR-- ECG on admission shows Afib w/RVR--apprec cards-- restarting eliquis tonight--cont amio
Hyperthyroid - asymptomatic at this time. Will continue on Methimazole
DVT PPx - on Eliquis
Code - Full Code
Original Note:
Today's Communication/Plan
-
Surgery today, c/w abx.
Assessment / Plan
Assessment / Plan
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
thrombectomy who presented with fatigue/weakness.
#Wound Dehiscence, s/p R Iliac Thromboembolectomy (11/06)
- Does not currently meet SIRS criteria for sepsis, on IV Zosyn (day 3) for coverage. Pending wound cx.
- Wound cx sent, prelim showing many WBCs w/ moderate Gram positive cocci
- Vascular seen, surgery today for R groin washout & wound VAC placement. Will hold Eliquis for now; OK restart after procedure pending vascular reccs. Cardio to clear for surgery in setting of Afib & HFrEF
- Wound care following
#Acute Exacerbation of HFrEF
- last echo from 10/30 shows severe LV dilation, severely reduced LVSF w/ EF of 5-10% and Stage II diastolic dysfunction
- has BL pitting edema, cough, but is saturating well w/ CXR findings negative for acute cardiopulmonary process.
- ProBNP today was 4060, on last admission was 9160.
- S/p x2 dose IV lasix. Will continue one more day on IV 40 lasix BID, then consider resuming home PO lasix. C/w KCL 40meq for K replenishment. K today 3.6
- continue with home GDMT metoprolol succinate, jardiance, entresto
#Afib with RVR
- ECG on admission shows Afib w/ RVR.
- Will hold Eliquis as above in anticipation for surgery. OK to resume immediately after surgery. OK to continue Amiodarone 200 BID. Appreciate cardio recc.
#Hypokalemia (resolved) - On KCL replenishment at home. K on admission was 3.2. Will increase KCL to 40meq and continue to monitor bmp.
#Hyperthyroid - asymptomatic at this time. Will continue on Methimazole.
Diet - HF Diet, <2g sodium
DVT PPx - none, holding Eliquis until after surgery
Code - Full Code
Anticipated Discharge: 24 - 48 hours
Subjective/Interval History
-
Seen this morning,he has no acute complaints. Nicotine patch is helping cravings. he has no chest pain, shortness of breath, palpitations. He had no fevers, chills or groin pain overnight. he is going for surgery later today.
Objective Data
-
Labs:
Laboratory Results
11/29/24
06:07
WBC Pending
Hgb Pending
Hct Pending
Plt Count Pending
PT Pending
INR Pending
APTT Pending
Sodium Pending
Potassium Pending
Chloride Pending
Carbon Dioxide Pending
BUN Pending
Creatinine Pending
Glucose Pending
Calcium Pending
Vital Signs:
Vital Signs
Temp Pulse Resp BP Pulse Ox
97.3 F 105 20 98/65 100
11/29/24 03:40 11/29/24 03:40 11/29/24 03:40 11/29/24 03:40 11/29/24 03:40
I&O
11/27/24 11/28/24 11/29/24
06:59 06:59 06:59
Intake Total 480 / 480 1860 / 1860
Output Total 2875 / 2875
Balance 480 / 480 -1015 / -1015
Review of Systems
-
History Source: Patient
Constitutional: Denies Fever, Fatigue, Sleep Disturbance, Night Sweats or Chills
Respiratory: Denies Cough, Trouble Breathing, Wheezing or Pleurisy
Cardiac: Denies Chest Pain, Diaphoresis, Palpitations or Orthopnea
Abdomen/GI: Denies Abdominal Pain, Nausea or Vomiting
Breast: Reports N/A
Genitourinary: Reports No Symptoms
Musculoskeletal: Denies Joint Pain, Joint Swelling, Muscle Pain or Muscle Weakness
Neuro: Denies Dizzy or Headache
Physical Exam
-
General: Well Developed, Well Nourished, No Apparent Distress and Comfortable; Negative Respiratory Distress, Pain, Fever or Chills
HEENT: Normocephalic, Atraumatic, Moist Mucous Membranes, Hatch Conjunctivae and PERRLA
Respiratory: Clear to Auscultation and Non Labored Respirations; Negative Wheezes, Rales or Rhonchi
Cardiac: Regular Rhythm and S1/S2; Negative Murmur, Rub or Tachycardic
Breast: N/A
GI: Soft, Nontender, Nondistended and Normal Bowel Sounds
Musculoskeletal: No Clubbing, No Cyanosis, Edema, Right Lower Extrem (1+, Improved from yesterday) and Edema, Left Lower Extrem (1+, Improved from yesterday)
Neuro: Awake, Alert and Oriented
Psych: Calm
[2024-11-29 06:43] LABS: Hematocrit 48.2 % (39.0-52.0); Hemoglobin 15.6 g/dL (13.0-18.0); Mean Corp Hgb Conc. 32.4 g/dL (33.0-37.0); Mean Corpuscular Hgb 31.6 pg (27.0-31.0); Mean Corpuscular Volume 97.6 fL (80.0-94.0); Mean Platelet Volume 9.5 fL (7.4-10.4); Platelet Count 305 10^3/uL (130-400); Red Blood Cell Count 4.94 10^6/uL (4.70-6.10); Red Cell Dist. Width 15.9 % (11.5-14.5); White Blood Cell Count 7.8 10^3/uL (4.8-10.8)
[2024-11-29 07:02] LABS: INR 1.34; PT 17.1 Sec (11.4-14.6)
[2024-11-29 07:03] LABS: APTT 51.3 Sec (23.4-35.0)
[2024-11-29] MEDS: NICODERM TRANSDERMAL 14 MG TRANSDERM (07:31)
[2024-11-29] MEDS: PACERONE 200 MG PO ×2 (07:32→20:20)
[2024-11-29] MEDS: KCL 40 MEQ PO (07:32)
[2024-11-29] MEDS: TAPAZOLE 10 MG PO (07:32)
[2024-11-29] MEDS: FARXIGA 10 MG PO (07:32)
[2024-11-29] MEDS: ENTRESTO 24 MG/26 MG 1 TAB PO ×2 (07:40→20:20)
[2024-11-29] MEDS: TOPROL XL 50 MG PO ×2 (07:41→20:19)
[2024-11-29] MEDS: LASIX IV (07:46)
[2024-11-29 07:50] LABS: Blood Urea Nitrogen 19 mg/dl (9-20); Calcium 8.9 mg/dl (8.4-10.2); Carbon Dioxide 30 mmol/L (22-30); Chloride 103 mmol/L (98-107); Estimated Creatinine Clearance 108 ml/min; Glucose 91 mg/dl (70-99); Potassium 3.6 mmol/L (3.5-5.1); Sodium 142 mmol/L (135-145); eGFR > 60.00
[2024-11-29] MEDS: PERIDEX 0.12% ORAL RINSE 15 ML PO (12:50)
[2024-11-29] MEDS: BACTROBAN 2% OINTMENT 1 APPLIC NASAL (12:51)
--- NOTE | 2024-11-29 13:32 | OR.RPT ---
Operative Report
Operative Report
PROCEDURE DATE: 11/29/2024
Preoperative diagnosis: Seroma right groin with superficial dehiscence of right groin incision (status post right lower extremity arterial thrombectomy).
Postoperative diagnosis: Same
Procedure: Washout right groin with evacuation/debridement of seromatous collection and fibrinous exudate. Pulse lavage irrigation. Placement of wound VAC.
Surgeon: Gallo
Line Manager: MANISHA Saab, required for all aspects of procedure including assistance with traction/countertraction.
Complications: None
Anesthesia: General
Indications for procedure:
Right lower extremity thrombectomy relatively recently. Presented with seromatous drainage from wound with superficial dehiscence. Brought for washout. Risk/benefit/alternatives also discussed. Patient understood all wished to proceed.
Description of procedure:
Patient was identified brought to the operating room placed on the table in supine position. After the adequate administration of anesthesia he was prepped and draped in the standard surgical fashion. A standard preoperative timeout was undertaken
and everybody was in agreement the plan. The incision site in the right groin had dehisced at the superior and inferior aspects. I was able to insert my finger and clearly the tissues underneath were not healed and therefore I just used a 15 blade
to incise to bridge between the 2 different sites. As soon as I did this I drained a significant amount of seromatous fluid. Culture swabs were sent. There is no purulence. A gelatinous seroma capsule was then withdrawn intact. This had a
fibrinous exudative covering. Once I remove this I could see all the tissues and all tissues appeared healthy and clean and there was about a golf ball sized pocket extending down to just superficial to the artery. The artery was not visualized.
I could palpate the pulsation posteriorly. However there is no exposed artery. At this point, any loose fibrinous debris was debrided. We then used a pulse lavage [employer] consultant to irrigate 3 L of saline solution through the wound. We then placed a
wound VAC. The patient tolerated the procedure well.
--- NOTE | 2024-11-29 14:39 | W.SUR.POST ---
Surgical Immediate Post Op
Note
Pre Op Diagnosis: Nonhealing healing right groin
Post Op Diagnosis: Nonhealing right groin
Procedure Performed: Right groin incision and drainage with washout, and wound VAC placement, wound dimensions 8 cm x 3.5 cm x 4.5 cm
Primary Surgeon: Costa Holder MD
first assistant manager: Sharon Saab, ADDRESSER-C
Anesthesia: GETA
Estimated Blood Loss: 2 mL
Fluids: See anesthesia flowsheet
Drains/Shunts: N/A
Specimens/Cultures: Cultures of wound and pathology of seroma
Doppler/Duplex/Angio (Y/N): No
Complications: Complications
Operative Findings: Successful removal of seroma and washout of nonhealing wound
--- NOTE | 2024-11-29 14:57 | W.PN.CARDCBS ---
Addendum entered and electronically signed by Chela Clements DO 11/29/24 16:47:
Communicated with hospitalist service and vascular�will restart Eliquis 5 mg twice daily tonight.
Addendum entered and electronically signed by Chela Clements DO 11/29/24 16:46:
I saw and examined the patient.
The Tank Tender's note was reviewed and I agree with the note.
Comment: Seen and examined in PACU following washout right groin with evacuation/debridement of seroma and placement of a wound VAC with Dr. Holder. Events immediately postop reviewed�patient was briefly lethargic with periods of apnea without any
significant decompensations. He is now awake/alert and denies any complaints of pain including groin pain/chest pain/shortness of breath/ abdominal pain. He denies leg pain or weakness. He denies headache or focal weakness.
GEN: Awake alert and oriented x 3. NAD on nasal cannula O2, lying supine and comfortable
HEENT: mmm
LUNGS: CTA B/L, no wheezes
CV: Irreg, S1/S2, 1/6 murmur
ABD: soft, BS+, NT/ND
EXT: Warm distal extremities. Doppler pulses bilaterally. 1+ edema of B/L LE. R groin with wound vac in place. Left radial A-line present
Plan:
Medically complex 59-year-old gentleman with history of nonischemic cardiomyopathy with chronic HFrEF, atrial fibrillation on chronic Eliquis anticoagulation, cardioembolic occlusion of the left common femoral artery status post thrombectomy in
June 2023 and right iliac artery occlusion status post thrombectomy 10/29/2024 admitted with right groin seroma
-s/p R groin seroma removal, washout, and wound vac placement 11/29
-Initial, brief postop lethargy has improved related to anesthesia
-Relatively stable hemodynamics with borderline BP (MAP 77-89), not requiring pressors. Spoke with belle observe overnight in the ICU with A-line monitoring
-Postop wound care per vascular surgery
-Would resume anticoagulation as soon as possible given history of thromboembolism; timing to be determined by vascular surgery.
Permanent atrial fibrillation
-Oral anticoagulation, Eliquis 5 mg twice daily; currently held for surgery in the immediate postop.; Will review anticoagulation as soon as possible with timing to be determined by vascular surgery
-Continue rate control strategy with hold parameters: Currently on Toprol succinate 50 mg twice daily, amiodarone 200 mg twice daily
History of hyperthyroidism on methimazole
-Check TSH as outpatient
Nonischemic cardiomyopathy, tachycardia mediated +/- alcohol
-Left heart catheterization May 22, 2024 with nonobstructive coronary artery disease in a codominant system
-Has EP appointment to discuss ICD placement as well as options for A-fib. He had previously been scheduled for cardioversion November 26 but canceled due to no insurance/cost prohibitive
-Outpatient goal-directed medical therapy: Metoprolol succinate 50 mg twice daily, Entresto 24/26 mg twice daily, Lasix 40 mg twice daily, Farxiga 10 mg daily.
-Monitor blood pressure trends in the immediate postop.; Hold parameters on medical therapy.
-Consider addition of Aldactone prior to discharge
-Monitor on telemetry given history of NSVT.
-Appears mildly volume overloaded; proBNP 4066 (proBNP was 9190 10/2024). lasix held 11/29/24 for surgery. Will resume Lasix 40mg IV tonight if BP allows and continue IV Lasix for 24/48 hours before transition back to oral Lasix.
-Follow I's and O's/daily weights
-Keep K greater than 4, mag greater than 2
-Tobacco and alcohol cessation/avoidance
History of thromboembolism of the left common femoral artery in 2022 and more recently of the right iliac artery requiring thrombectomy
-Resume anticoagulation as soon as possible
-Will review outpatient records but send of and a hypercoagulable labs while off anticoagulation
Type 2 diabetes mellitus with last hemoglobin A1c 10/31/2024 6%
-Goal normoglycemia
-Continue Farxiga
-History of noncompliance was reportedly secondary to financial issues. patient without insurance, working on medical assistance.
Will follow with you
Original Note:
Today's Communication / Plan
-
follow mental status
would consider observation overnight in higher level of care
resume OAC post op when ok per vascular
replete K
Impression / Plan
-
Primary Barn Manager: Dr. Clements
Assessment:
Presentation with malaise
R groin drainage, suspected seroma
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
Persistent atrial fibrillation, first discovered July 2023
Chronic OAC with eliquis
Chronic HFrEF
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
NSVT
Hyperthyroidism
Noncompliance
Depression
History of ETOH and tobacco abuse
Obesity
ECHO 04/04/2024: EF 10 to 15%, severe global hypokinesis, mild MR, trace TR, PAP 30 to 33 mmHg
Cardiac catheterization 05/22/2024: Nonobstructive coronary disease with normal to mildly elevated right and left-sided filling pressures with normal cardiac output
Echocardiogram 10/30/2024: Severely dilated left ventricle, severely reduced LV systolic function, global hypokinesis with ejection fraction of 5-10%, moderate to severe eccentric TR with PA pressure of 30-35 mmHg, small pericardial effusion.
Plan:
-s/p R groin seroma removal, washout, and wound vac placement 11/29
-seen in pacu. remains sedated, lethargic. awakened with sternal rub and encouraged to take deep breaths. BPs stable. remains with jonh in place, anesthesia placed during case due to elevated cardiac risk, may be able to be removed as patient
awakens more. d/w vascular, hospitalist, PACU nursing. would consider observation overnight in higher level of care
-follow volume status. IV lasix dose was held this morning due to hypotension however would resume as BP tolerates
-remains in afib with adequate rate control on toprol, amiodarone
-eliquis on hold with plan for procedure given recent R artery occlusion requiring intervention, would resume OAC as soon as able post procedure when ok per vascular surgery
-given history of NSVT and CM, would plan to keep K>4 and mag>2. replete K, 3.6 on 11/29
-would follow on tele
-his prior noncompliance was reportedly secondary to financial issues. patient without insurance, working on medical assistance. he had been scheduled for CV 11/26 however cancelled due to no insurance/cost.
-he is scheduled for EP evaluation 12/03/24 to discuss options regarding afib ie. ablation and ICD placement.
PREADMIT DATA:
-Patient with history of cardioembolic occlusion of left common femoral artery 06/2023 presented back to [facility] last month due to right iliac artery occlusion status post thromboembolectomy 10/29/2024. During that time was also noted to
be in persistent rapid A-fib initially discovered 07/2023 with history of noncompliance with medications. Also with known low EF suspected tachycardia mediated status post cath 05/2024 with nonobstructive CAD. He presented back to the ER due to
generalized malaise and was noted to have a suspected seroma of his right groin.
Progress Note - Barn Manager
Subjective
Date of Service: November 29, 2024
patient lethargic, opens eyes to sternal rub but not to solely verbal stimuli
Objective
Labs:
11/29/24 06:07
11/29/24 06:07
Labs
Hgb 15.6 g/dL (13.0-18.0) 11/29/24 06:07
Hct 48.2 % (39.0-52.0) 11/29/24 06:07
Plt Count 305 10^3/uL (130-400) 11/29/24 06:07
PT 17.1 Sec (11.4-14.6) H 11/29/24 06:07
INR 1.34 11/29/24 06:07
APTT 51.3 Sec (23.4-35.0) H 11/29/24 06:07
Sodium 142 mmol/L (135-145) 11/29/24 06:07
Potassium 3.6 mmol/L (3.5-5.1) 11/29/24 06:07
BUN 19 mg/dl (9-20) 11/29/24 06:07
Creatinine 1.0 mg/dL (0.7-1.3) 11/29/24 06:07
Glucose 91 mg/dl (70-99) 11/29/24 06:07
Troponins
11/27/24 11/27/24
12:33 13:10
Troponin I Cancelled 0.031
Vital Signs and I&O:
Vital Signs
Temp Pulse Resp BP Pulse Ox
97.7 F 89 23 110/74 99
11/29/24 12:31 11/29/24 13:45 11/29/24 13:45 11/29/24 12:31 11/29/24 13:45
Vital Signs
Temp Pulse Resp BP Pulse Ox
97.7 F 89 23 110/74 99
11/29/24 12:31 11/29/24 13:45 11/29/24 13:45 11/29/24 12:31 11/29/24 13:45
Intake & Output
11/27/24 11/28/24 11/29/24 11/30/24
07:59 07:59 07:59 07:59
Intake Total 480 / 480 1860 / 1860
Output Total 2875 / 2875
Balance 480 / 480 -1015 / -1015
Physical Exam
Physical Exam
GEN: No distress, lethargic. on supp O2
HEENT: supple, anicteric, mmm
LUNGS: CTA B/L, no wheezes
CV: Irreg, S1/S2, 1/6 murmur
ABD: soft, BS+, NT/ND
EXT: No cyanosis, clubbing. 1+ edema of B/L LE
NEURO: Gross non-focal
SKIN: Warm, pink, dry. No rash. R groin with wound vac in place
--- NOTE | 2024-11-29 15:06 | WOUNDNOTE ---
WOC RN note: Sharon Saab, Vascular PA notified this underwriter mortgage loan that the vascular service will be changing Buster Velazquez next vac dressing change on Tuesday.
[2024-11-29] MEDS: KCL 160 MEQ IV (16:02)
[2024-11-29 16:11] LABS: % Basophils 1.4 % (0-2); % Eosinophils 2.7 % (0-6); % Immature Granulocytes 0.3 % (0-0.5); % Lymphocytes 12.7 % (20.5-51.1); % Monocytes 8.2 % (1.7-9.3); % Neutrophils 74.7 % (42.2-75.2); Absolute Basophils 0.1 10^3/uL (0-0.2); Absolute Eosinophils 0.2 10^3/uL (0-0.7); Absolute Lymphocytes 0.9 10^3/uL (1.2-3.4); Absolute Monocytes 0.6 10^3/uL (0.1-0.6); Absolute Neutrophils 5.5 10^3/uL (1.4-6.5); Hemoglobin 15.4 g/dL (13.0-18.0); Mean Corp Hgb Conc. 31.4 g/dL (33.0-37.0); Mean Corpuscular Hgb 31.6 pg (27.0-31.0); Mean Corpuscular Volume 100.6 fL (80.0-94.0); Mean Platelet Volume 9.5 fL (7.4-10.4); Nucleated Red Blood Cells % 0 % (-); Platelet Count 293 10^3/uL (130-400); Red Blood Cell Count 4.87 10^6/uL (4.70-6.10); Red Cell Dist. Width 15.9 % (11.5-14.5); White Blood Cell Count 7.4 10^3/uL (4.8-10.8)
--- NOTE | 2024-11-29 16:11 | PN.CDI ---
CDI
- -
CDI:
Physician Documentation Request
Admit Date: 11/27/24 20:01
Dear Doctor Gallo,
11/29 patient underwent 'Washout right groin with evacuation/debridement of seromatous collection and fibrinous exudate. Pulse lavage irrigation. Placement of wound VAC.
Report states At this point, any loose fibrinous debris was debrided. We then used a pulse lavage research center partner to irrigate 3 L of saline solution through the wound.
Could you provide, in the progress notes further clarification regarding the debridement.
Please specify the type of debridement performed:
1. Excisional Debridement - defined as removal by excision of devitalized tissue, necrosis or slough
2. Non-excisional debridement - defined as removal of devitalized tissue, necrosis or slough by such methods as irrigation, brushing, scrubbing or washing.
If the debridement was excisional, please also include:
1. Type of instrument used (#11 blade, #15 blade etc.)
2. What was excised (necrotic tissue, gangrenous tissue, slough etc.)
For excisional or non-excisional, please also include:
1. Depth of debridement (skin, subcutaneous tissue, fascia, muscle, bone etc)
2. Size and appearance of the wound (L, W, D, color of wound, drainage)
Use of terms such as suspected, likely, concern for, or probable (associated with a specific diagnosis that is being evaluated, monitored, or treated as if it exists) are acceptable and can be coded in the inpatient setting, when documented at the
time of discharge.
Thank you,
Tari Tovar RN, BSN
CDI Specialist
tiger text
Please use your independent medical judgment in providing your response.
[2024-11-29 16:23] LABS: INR 1.39; PT 17.5 Sec (11.4-14.6)
[2024-11-29 16:25] LABS: Blood Urea Nitrogen 19 mg/dl (9-20); Calcium 8.6 mg/dl (8.4-10.2); Carbon Dioxide 24 mmol/L (22-30); Chloride 106 mmol/L (98-107); Estimated Creatinine Clearance 108 ml/min; Glucose 104 mg/dl (70-99); Potassium 3.6 mmol/L (3.5-5.1); Sodium 140 mmol/L (135-145); eGFR > 60.00
--- NOTE | 2024-11-29 16:29 | CON.INTV ---
Consultation
Consultation Request
Date/Time Consultation Requested: 11/29/2024-4:30 PM
Date/Time Consultation Performed: 11/29/2024-4:30 PM
Requesting Provider: Hospitalist
Performing Provider: Dr. Henderson
Reason for Consultation: Critical care management
Medical History
-
Chief Complaint: PAD
History of Present Illness:
59-year-old male smoker with a history of atrial fibrillation, heart failure reduced EF, cardiomyopathy, CAD with a history of acute limb ischemia and revascularizations underwent washout right groin with evacuation/debridement of seromatous
collection and fibrinous exudate and placement of wound VAC with subsequent instability requiring transfer to ICU-stockholder consulted for postoperative critical care management 11/29/2024. Reportedly he was very lethargic postoperatively, I am now
seeing him in the ICU where he is alert and oriented. He does not complain of any shortness of breath at rest, chest pain, chest tightness, chest congestion, productive cough, abdominal pain or increased lower extremity weakness.
Past Medical History
Past Medical History: None (Cardioembolic occlusion left common femoral/thrombectomy 06/2023. 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 Atrial fibrillation. Chronic anticoagulation. Chronic heart failure reduced EF. Nonischemic
cardiomyopathy. NSVT. Hypothyroid. Noncompliance. History EtOH abuse. Obesit)
Social History
Tobacco: Smoker (Half to 1 pack cigarettes daily-over [id number])
Alcohol: Occasional
Drug: None
Personal: Single
Living: Alone
Occupational Exposures: No known asbestos exposure
Environmental Exposures: No known tuberculosis exposure
Family History
Family History: Reviewed & Not Pertinent
Allergies / Home Medications
Allergies
Allergy/AdvReac Type Severity Reaction Status Date / Time
No Known Allergies Allergy Verified 11/27/24 11:19
Home Medications
�Medication �Instructions �Recorded �Confirmed �Last Taken �Type
methimazole 10 mg tablet 10 mg PO DAILY Thyroid 04/11/24 11/27/24 11/26/24 History
potassium chloride 20 mEq 20 meq PO DAILY Electrolyte 05/22/24 11/27/24 11/26/24 History
tablet,extended release Repletion
amiodarone 200 mg tablet 200 mg PO BID #90 tabs 11/06/24 11/27/24 11/26/24 Rx
apixaban 5 mg tablet (Eliquis) 5 mg PO BID Blood clot 11/06/24 11/27/24 11/26/24 Rx
prevention/tx #60 tabs
empagliflozin 10 mg tablet 10 mg PO DAILY Heart Failure #30 11/06/24 11/27/24 11/26/24 Rx
(Jardiance) tabs
furosemide 40 mg tablet (Lasix) 40 mg PO BID Fluid 11/06/24 11/27/24 11/26/24 Rx
Retention/Swelling #60 tabs
sacubitril 24 mg-valsartan 26 mg 1 tab PO BID Heart 11/06/24 11/27/24 11/26/24 Rx
tablet (Entresto) Disease/Condition #60 tabs
metoprolol succinate 50 mg 50 mg PO BID 11/27/24 11/27/24 11/26/24 History
tablet,extended release 24 hr
Review of Systems
-
Unable to Obtain full review of systems at this time due to: Other (Per HPI)
Vitals / Labs / Diagnostic Testing
Vital Signs
Temp Pulse Resp BP Pulse Ox
97.7 F 94 23 101/62 98
11/29/24 14:48 11/29/24 16:15 11/29/24 16:15 11/29/24 16:15 11/29/24 16:15
Lab Data
11/29/24 16:05
11/29/24 16:05
Laboratory Results
11/29/24 11/29/24
06:07 16:05
PT 17.1 H 17.5 H
INR 1.34 1.39
APTT 51.3 H 32.0
Microbiology
11/27/24 21:31 Groin - Right Wound Culture - Preliminary
11/27/24 21:31 Groin - Right Gram Stain - Preliminary
11/27/24 21:23 Nose MRSA Screen - Final
No Methicillin Resistant Staphylococcus aureus isolated.
Diagnostic Testing:
Physical Exam
-
Exam:
Well-nourished and well-developed in no apparent distress
HEENT-atraumatic, normocephalic
Neck-supple, no JVD, no bruit
Heart-regular rate and rhythm-no murmurs, rubs or gallops
Chest with diminished breath sounds, prolonged expiratory time, few rhonchi and no wheezes
Abdomen-soft, nontender, nondistended, no hepatosplenomegaly
Extremities-no cyanosis, clubbing, edema and good peripheral pulses
Integument-intact, no rashes, lesions or ecchymosis
Neurology-alert and oriented, nonfocal motor and sensory exam
Assessment
-
59-year-old male smoker with a history of atrial fibrillation, heart failure reduced EF, cardiomyopathy, CAD with a history of acute limb ischemia and revascularizations underwent washout right groin with evacuation/debridement of seromatous
collection and fibrinous exudate and placement of wound VAC with subsequent instability requiring transfer to ICU-stockholder consulted for postoperative critical care management 11/29/2024.
Hypotension and lethargy postop
Right groin evacuation/debridement, washout and placement of wound VAC 11/29/2024
Suspected groin seroma
Heart failure with reduced EF
Hypokalemia
Permanent atrial fibrillation
Mild hyperglycemia
Conditions present prior to admission:
Cardioembolic occlusion left common femoral/thrombectomy 06/2023.
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
Atrial fibrillation.
Chronic anticoagulation.
Chronic heart failure reduced EF.
Nonischemic cardiomyopathy-chronic tachycardia induced
NSVT.
Hyperthyroid-on methimazole.
Noncompliance.
History EtOH abuse.
Cigarette smoker
COPD suspected-centrilobular emphysema noted on CT chest 10/2024
History of Acute respiratory failure with hypoxia + hypercapnia on mechanical ventilation (10/29/2024) --> extubated 10/30/2024
Obesity
Plan
Patient admitted to ICU for close observation with lethargy and hypotension
Supplemental oxygen as needed
Aspiration precautions
Incentive spirometry
Nebulizers if needed-currently not bronchospastic
VBG or ABG if becomes lethargic-history of hypercapnic and hypoxemic respiratory failure requiring mechanical ventilation for 24 hours a month ago
Monitor for arrhythmias
Replace electrolytes
Vascular surgery following
Neurovascular checks
Check cultures
Antibiotics if needed
Cardiology following-correspondence reviewed
Monitor electrolytes closely given nonsustained ventricular tachycardia and cardiomyopathy
Keep potassium greater than 4 and magnesium greater than 2
Atrial fibrillation rate control on amiodarone and Toprol
He has prior noncompliance-reportedly secondary to financial issues. patient without insurance, working on medical assistance.
He had been scheduled for CV 11/26 however cancelled due to no insurance/cost.
He iis scheduled for EP evaluation 12/03/24 to discuss options regarding afib ie. ablation and ICD placement.
Smoking cessation counseling
Nicotine patch
DVT prophylaxis-on Eliquis
Nutrition
Outpatient pulmonary [id number] cessation counseling, PFTs, inhalers, yearly low-dose lung cancer screening CT, etc.
Critical care statement: A total of 55 minutes of critical care time was provided for this patient today. This includes management of unstable vital signs, evaluation of the patient at bedside, reviewing the patient's pertinent medical records
including radiographs, microbiology, laboratory evaluations, and discussion with primary team, consultants, pharmacy, nutrition, physical therapy, case management, charge nurse, critical care nursing, and respiratory therapy.
Diagnostic data:
Chest x-ray 07/05/2023-mild opacifications likely representing pulmonary edema and small bilateral pleural effusions
Chest x-ray 10/29/2024-NAD, moderate cardiomegaly
Chest x-ray 11/27/2024-NAD
CT chest 10/29/2024-no obvious pulmonary embolism, minor bilateral pleural effusions, emphysematous changes
CT abdomen and pelvis 11/27/2024-patent right common iliac artery with apparent recent right iliac thrombectomy, abnormal focal fluid collection, hematoma, seroma or infection
CTA abdominal aorta with runoff 10/29/2024:Occluded right common iliac artery. Occluded internal and external iliac arteries. Reconstitution of the right femoral artery. Three-vessel runoff in the calf, though at the level of theankle, the anterior
tibial artery and peroneal artery appear attenuated with lack of intraluminal contrast identified. The posterior tibial artery appears patent distal to the ankle, though somewhat attenuated compared to thecontralateral side.Occluded left internal
iliac artery.Hepatomegaly. Fatty infiltration. 10 mm low-attenuation right adrenal nodule, likely adenoma. Small left renal cyst. Trace ascites.Minor diverticulosis. No evidence of acute diverticulitis. No bowel obstruction.retroperitoneal soft
tissue stranding along the course of the common and external iliac vessels.
CTA chest 10/29/2024:Limited evaluation the lower lobes secondary to respiratory motion degradation. As far as visualized, no evidence of pulmonary embolism with confidence to the segmental pulmonary arteries in the lowerlobes. No evidence of upper
lobe pulmonary embolism with confidence to the subsegmental levels.Minor bilateral pleural effusions. Atelectasis. Mild emphysematous lung changes. No pneumonia.Small lymph nodes, nonspecific, likely reactive.
Transthoracic echocardiogram 04/04/2024: Left ventricle is severely dilated with severely reduced left ventricular systolic function; left ventricular ejection fraction is 10-15% by visual assessment. Severe global hypokinesis. Normal left
ventricular wall thickness. Diastolic function indeterminate due to atrial fibrillation.Normal right ventricular size and function.Mitral valve opens normally with mild mitral regurgitation.The aortic valve is structurally and functionally
normal.Tricuspid valve opens normally with trace tricuspid regurgitation. Estimated pulmonary artery pressure of 30-33 mmHg, assuming a right atrial pressure of 3 mmHg.Compared to prior study 12/26/2023 No significant change noted.
ECHO 04/04/2024: EF 10 to 15%, severe global hypokinesis, mild MR, trace TR, PAP 30 to 33 mmHg
Cardiac catheterization 05/22/2024: Nonobstructive coronary disease with normal to mildly elevated right and left-sided filling pressures with normal cardiac output
Echocardiogram 10/30/2024: Severely dilated left ventricle, severely reduced LV systolic function, global hypokinesis with ejection fraction of 5-10%, moderate to severe eccentric TR with PA pressure of 30-35 mmHg, small pericardial effusion.
Data Reviewed
-
EKG: Report reviewed by me
Radiology: Report reviewed by me
CT Scan: Report reviewed by me
Medical Tests (Nuc Med, Echo etc): Report reviewed by me
Old Records: Reviewed
Critical Care Time (in minutes): 55
--- NOTE | 2024-11-29 17:27 | SUR.PHASEI ---
pacu addendum - patient received from [facility] - sleeping with stable vitals - moffett cyanotic color - normal for this patient. feet cold to touch, unable to ascultate DP pulses, warm blankets around feet, jonh zeroed, patient's cardiac status noted.
Within 10 minutes of arrival patient begun having periods of apnea, 30seconds or greater. Required sternal rub to stimulate to breathe. Dr Lorenz and Dr Holder updated, Hospitalist TT and updated, - Dr Trejo and Dr Cruz visit. KCL bolus
started after labs drawn. Patient continued to arouse better - color and temp improved slightly. Needs HOB elevated to decrease apnea periods. Discharge to ICCU
--- NOTE | 2024-11-29 18:37 | PTCARENOTE ---
Severe sleep apnea, Frequent alarming. Apnea alarm now @ 40seconds. Orthopneic. He stated he was never worked up for sleep apnea. Will keep Oxygen 2 liters nasal cannula on.
[2024-11-29 19:42] LABS: Phosphorus 4.5 mg/dl (2.5-4.5)
[2024-11-29] MEDS: LASIX 40 MG IV (20:20)
[2024-11-29] MEDS: ELIQUIS 5 MG PO (20:20)
--- NOTE | 2024-11-29 20:52 | PTCARENOTE ---
Received patient AAOx3, following commands, denying pain. Afib 80s, BP stable 100s-110s/60s-70s, normothermic. Trace b/l foot edema. B/l DP pulses present with doppler. 98% on 2 liters nasal cannula, alarming for apnea frequently. Lung sounds
diminished throughout. Abdomen soft, round, positive bowel sounds. No BM since admission. Urinal to void. Right shoulder nicotine patch, right groin dressing with wound vac CDI, wound vac seal working appropriately. PIVs patent, WNL. Left radial
jonh flushed, zeroed, and leveled. Call marshall within reach.
[2024-11-30] VITALS (18 sets, daily range): BP systolic 85–113; BP diastolic 57–85; BMI 38.8
[2024-11-30 00:20] LABS: Glucose - Point of Care 133 mg/dl (70-99)
--- NOTE | 2024-11-30 01:33 | PTCARENOTE ---
Patient assessment unchanged from previous, resting comfortably. Call marshall within reach.
[2024-11-30 04:13] LABS: Hematocrit 47.4 % (39.0-52.0); Hemoglobin 15.2 g/dL (13.0-18.0); Mean Corp Hgb Conc. 32.1 g/dL (33.0-37.0); Mean Corpuscular Hgb 31.3 pg (27.0-31.0); Mean Corpuscular Volume 97.7 fL (80.0-94.0); Mean Platelet Volume 9.5 fL (7.4-10.4); Platelet Count 281 10^3/uL (130-400); Red Blood Cell Count 4.85 10^6/uL (4.70-6.10); Red Cell Dist. Width 15.9 % (11.5-14.5); White Blood Cell Count 7.9 10^3/uL (4.8-10.8)
[2024-11-30 04:39] LABS: Blood Urea Nitrogen 19 mg/dl (9-20); Calcium 8.5 mg/dl (8.4-10.2); Carbon Dioxide 24 mmol/L (22-30); Chloride 108 mmol/L (98-107); Estimated Creatinine Clearance 109 ml/min; Glucose 102 mg/dl (70-99); Potassium 3.7 mmol/L (3.5-5.1); Sodium 140 mmol/L (135-145); eGFR > 60.00
[2024-11-30] MEDS: KCL 40 MEQ PO ×3 (05:04→19:15)
--- NOTE | 2024-11-30 07:30 | W.PN.HOSP.TC ---
Addendum entered and electronically signed by Lety Gilbert MD 11/30/24 19:23:
I saw and evaluated the patient independently. I reviewed the resident�s note and agree with findings and plan as documented by Dr. Nielson.
GENERAL: well developed, well nourished, obese male in no apparent distress
HEENT: NC/AT--NC O2 requirements
HEART: irreg irreg
LUNGS : clear to auscultation bilaterally
ABDOM: soft, nontender, nondistended, + bowel sounds
EXT: no cyanosis, clubbing-- 1+ LE edema bilaterally
NEUROLOGIC: grossly intact
SKIN: right groin wound dehiscence with foul smelling d/c
Episode of lethargy and apnea in PACU--strong possibility of sleep apnea--cont O2--will need outpt sleep study--also EF 5-10%--upgraded to ICU but now stable--d/c A line and transfer to IVU
Wound Dehiscence, s/p R Iliac Thromboembolectomy (11/06)--met sepsis criteria (tachycardic, tachypneic POA) with likely groin infection--apprec vascular input--wound culture with pseudomonas and E. coli (superficial)--cultures from OR no growth--was
not IV zosyn as previously thought--no need to restart with negative OR cultures---apprec wound care/vacular--s/p OR washout with wound vac 11/29/24--Eliquis can restart per vascular--first wound vac change to be done Tuesday
Acute Exacerbation of HFrEF--last echo from 10/30 shows severe LV dilation, severely reduced LVEF w/EF of 5-10% and Stage II diastolic dysfunction--has BL pitting edema, cough, but is saturating well w/ CXR findings negative for acute
cardiopulmonary process--will give IV lasix BID as tolerated then convert back to home doses when stable--apprec cards--ProBNP on admission was 4060, on last admission was 9160--- continue with home GDMT metoprolol succinate, jardiance, entresto
hypokalemia--KCl replete
Permanent Afib with RVR-- ECG on admission shows Afib w/RVR--apprec cards-- restarting eliquis --cont amio
Hyperthyroid - asymptomatic at this time. Will continue on Methimazole
DVT PPx - on Eliquis
Code - Full Code
Original Note:
Today's Communication/Plan
-
Downgrade to IVU. Pending wound Cx. Resume Eliquis. Wound vac care per vascular.
Assessment / Plan
Assessment / Plan
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
thrombectomy who presented with fatigue/weakness.
#Episode of lethargy and apnea following surgery
- Patient briefly lethargic with weak pulses and intermittent apnea in PACU following surgery. Patient has severely low EF at 5-10% on last Echo and an A-line placed, decision made to place him in ICU overnight. Symptoms have since resolved. Will
remove A-line and downgrade to IVU.
#Wound Dehiscence following R Iliac Thromboembolectomy (11/06)
#S/p R groin washout of seroma w/ Wound VAC placement
- Does not currently meet SIRS criteria for sepsis. thought patient was still on IV Zosyn, but he only got one dose in ED on 11/27. patient has been afebrile since, no leukocytosis this admission, superficial culture shows pseudomonas which is a
common skin contaminant. No need to re-initiate antibiotics at this time.
- Intra-operative wound culture pending; currently showing WBCs and rare GPC
- Wound care following, Wound VAC draining
- Will order PT/OT eval
#Apneic Episodes
- Several episodes of apnea observed overnight. Possible Sleep Apnea given patient's history, STOP BANG score >4
- will continue to observe saturations, strong suggestion for OP follow up for sleep testing
- Wean o2 as tolerated
#Acute Exacerbation of HFrEF, resolved
- last echo from 10/30 shows severe LV dilation, severely reduced LVSF w/ EF of 5-10% and Stage II diastolic dysfunction. ProBNP on admission was 4060, on last admission was 9160. CXR negative for acute cardiopulmonary process.
- Edema resolving, cough resolving, is saturating well. Wean O2 as tolerated.
- C/w IV 40 Lasix BID, then consider resuming home PO lasix. Continue with home GDMT metoprolol succinate, Farxiga, Entresto
#Hypokalemia - C/w KCL 40meq for K replenishment. Will monitor and replete.
#Afib with RVR
- ECG on admission showed Afib w/ RVR.
- Resume Eliquis. OK to continue Amiodarone 200 BID. Appreciate cardio recc.
#Hypokalemia (resolved) - On KCL replenishment at home. K on admission was 3.2. Trend bmp and replete as needed.
#Hyperthyroid - asymptomatic at this time. Will continue on Methimazole.
#Current Tobacco Use - Nicotine patch 14mg, can increase if not working
Diet - HF Diet, <2g sodium
DVT PPx - resume Eliquis
Code - Full Code
Anticipated Discharge: 24 - 48 hours
Subjective/Interval History
-
Feeling well this morning. No acute complaints. Overnight he had some episodes of apnea, though the patient has no reported diagnosis of sleep apnea. He was put on supplemental O2 for apneic episodes.
Objective Data
-
Labs:
Laboratory Results
11/30/24
04:00
WBC 7.9
Hgb 15.2
Hct 47.4
Plt Count 281
Sodium 140
Potassium 3.7
Chloride 108 H
Carbon Dioxide 24
BUN 19
Creatinine 1.0
Glucose 102 H
Calcium 8.5
Vital Signs:
Vital Signs
Temp Pulse Resp BP Pulse Ox
97.6 F 95 18 113/85 97
11/30/24 04:22 11/30/24 06:00 11/30/24 06:00 11/30/24 06:00 11/30/24 06:00
I&O
11/29/24 11/30/24 12/01/24
06:59 06:59 06:59
Intake Total 1860 / 1860 1050 / 1050
Output Total 2875 / 2875 2775 / 2775
Balance -1015 / -1015 -1725 / -1725
Review of Systems
-
History Source: Patient
Constitutional: Denies Fever, Fatigue, Night Sweats or Chills
EENT: Reports No Symptoms Reported
Respiratory: Denies Cough, Trouble Breathing or Wheezing
Cardiac: Denies Chest Pain, Diaphoresis, Palpitations or Syncope
Abdomen/GI: Denies Abdominal Pain, Nausea or Vomiting
Breast: Reports N/A
Genitourinary: Reports No Symptoms
Musculoskeletal: Reports Edema; Denies Joint Pain, Joint Swelling or Muscle Pain
Skin: Reports No Symptoms
Neuro: Reports No Symptoms
Physical Exam
-
General: Well Developed, Well Nourished, No Apparent Distress and Comfortable
HEENT: Normocephalic, Atraumatic, Moist Mucous Membranes, Anicteric, Harmon Conjunctivae, PERRLA and Oxygen (2L NC)
Respiratory: Crackles (RLL crackles) and Non Labored Respirations; Negative Wheezes or Rhonchi
Cardiac: S1/S2, Irregular Rhythm, Tachycardic and Other (BL post tibial, dorsalis pedis pulses present); Negative Murmur
Breast: N/A
GI: Soft, Nontender, Nondistended and Normal Bowel Sounds
Genito-urinary: Deferred by me
Musculoskeletal: No Clubbing, No Cyanosis, Edema, Right Lower Extrem, Edema, Left Lower Extrem and Other (R groin wound VAC placed. Site is clean, nonflucutant, none erythematous, non tender and body-temperature w/o drainage. )
Skin: IV Access / Catheter Site (A-line L upper arm)
Neuro: Awake, Alert, Oriented and No Sensory Deficits (Touch/pressure sensation of the BL LE grossly intact. )
--- NOTE | 2024-11-30 07:42 | W.PN.INTV ---
Today's Communication / Plan
Recommendations
Neurovascular checks
Wean oxygen
Increase activity
Diuresis as tolerated
Atrial fibrillation rate control
Transfer out of ICU-call pulmonary if respiratory issues arise
Assessment
-
59-year-old male smoker with a history of atrial fibrillation, heart failure reduced EF, cardiomyopathy, CAD with a history of acute limb ischemia and revascularizations underwent washout right groin with evacuation/debridement of seromatous
collection and fibrinous exudate and placement of wound VAC with subsequent instability requiring transfer to ICU-office director consulted for postoperative critical care management 11/29/2024.
Hypotension and lethargy postop
Right groin evacuation/debridement, washout and placement of wound VAC 11/29/2024
Suspected groin seroma
Heart failure with reduced EF
Hypokalemia
Permanent atrial fibrillation
Mild hyperglycemia
Conditions present prior to admission:
Cardioembolic occlusion left common femoral/thrombectomy 06/2023.
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
Atrial fibrillation.
Chronic anticoagulation.
Chronic heart failure reduced EF.
Nonischemic cardiomyopathy-chronic tachycardia induced
NSVT.
Hyperthyroid-on methimazole.
Noncompliance.
History EtOH abuse.
Cigarette smoker
COPD suspected-centrilobular emphysema noted on CT chest 10/2024
History of Acute respiratory failure with hypoxia + hypercapnia on mechanical ventilation (10/29/2024) --> extubated 10/30/2024
Obesity
Plan
Neurologically and hemodynamically stable
Supplemental oxygen as needed-attempt to wean to room air
Aspiration precautions
Incentive spirometry-encouraged
Nebulizers if needed-currently not bronchospastic
VBG or ABG if becomes lethargic-history of hypercapnic and hypoxemic respiratory failure requiring mechanical ventilation for 24 hours a month ago
Monitor for arrhythmias
Replace electrolytes
Vascular surgery following
Neurovascular checks
Check cultures
Antibiotics if needed
Cardiology following-correspondence reviewed
Monitor electrolytes closely given nonsustained ventricular tachycardia and cardiomyopathy
Keep potassium greater than 4 and magnesium greater than 2
Atrial fibrillation rate control on amiodarone and Toprol
He has prior noncompliance-reportedly secondary to financial issues. patient without insurance, working on medical assistance.
He had been scheduled for CV 11/26 however cancelled due to no insurance/cost.
He iis scheduled for EP evaluation 12/03/24 to discuss options regarding afib ie. ablation and ICD placement.
Smoking cessation counseling ongoing
Nicotine patch
DVT prophylaxis-on Eliquis
Nutrition
The patient can be downgraded to telemetry-call pulmonary if respiratory issues arise
Outpatient pulmonary gahtvs-vr-pyvobke cessation counseling, PFTs, inhalers, yearly low-dose lung cancer screening CT, etc.
Reviewed the patient's pertinent medical records including radiographs, microbiology, laboratory evaluations, and discussion with primary team, consultants, pharmacy, nutrition, physical therapy, case management, charge nurse, critical care
nursing, and respiratory therapy.
Diagnostic data:
Chest x-ray 07/05/2023-mild opacifications likely representing pulmonary edema and small bilateral pleural effusions
Chest x-ray 10/29/2024-NAD, moderate cardiomegaly
Chest x-ray 11/27/2024-NAD
CT chest 10/29/2024-no obvious pulmonary embolism, minor bilateral pleural effusions, emphysematous changes
CT abdomen and pelvis 11/27/2024-patent right common iliac artery with apparent recent right iliac thrombectomy, abnormal focal fluid collection, hematoma, seroma or infection
CTA abdominal aorta with runoff 10/29/2024:Occluded right common iliac artery. Occluded internal and external iliac arteries. Reconstitution of the right femoral artery. Three-vessel runoff in the calf, though at the level of theankle, the anterior
tibial artery and peroneal artery appear attenuated with lack of intraluminal contrast identified. The posterior tibial artery appears patent distal to the ankle, though somewhat attenuated compared to thecontralateral side.Occluded left internal
iliac artery.Hepatomegaly. Fatty infiltration. 10 mm low-attenuation right adrenal nodule, likely adenoma. Small left renal cyst. Trace ascites.Minor diverticulosis. No evidence of acute diverticulitis. No bowel obstruction.retroperitoneal soft
tissue stranding along the course of the common and external iliac vessels.
CTA chest 10/29/2024:Limited evaluation the lower lobes secondary to respiratory motion degradation. As far as visualized, no evidence of pulmonary embolism with confidence to the segmental pulmonary arteries in the lowerlobes. No evidence of upper
lobe pulmonary embolism with confidence to the subsegmental levels.Minor bilateral pleural effusions. Atelectasis. Mild emphysematous lung changes. No pneumonia.Small lymph nodes, nonspecific, likely reactive.
Transthoracic echocardiogram 04/04/2024: Left ventricle is severely dilated with severely reduced left ventricular systolic function; left ventricular ejection fraction is 10-15% by visual assessment. Severe global hypokinesis. Normal left
ventricular wall thickness. Diastolic function indeterminate due to atrial fibrillation.Normal right ventricular size and function.Mitral valve opens normally with mild mitral regurgitation.The aortic valve is structurally and functionally
normal.Tricuspid valve opens normally with trace tricuspid regurgitation. Estimated pulmonary artery pressure of 30-33 mmHg, assuming a right atrial pressure of 3 mmHg.Compared to prior study 12/26/2023 No significant change noted.
ECHO 04/04/2024: EF 10 to 15%, severe global hypokinesis, mild MR, trace TR, PAP 30 to 33 mmHg
Cardiac catheterization 05/22/2024: Nonobstructive coronary disease with normal to mildly elevated right and left-sided filling pressures with normal cardiac output
Echocardiogram 10/30/2024: Severely dilated left ventricle, severely reduced LV systolic function, global hypokinesis with ejection fraction of 5-10%, moderate to severe eccentric TR with PA pressure of 30-35 mmHg, small pericardial effusion.
Subjective Dataa
Subjective Data
Date of Service:
Date of Service: November 30, 2024
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
Subjective:
No complaints of shortness of breath, chest pain, did not sleep well, no abdominal pain
Review of Systems
General: Other (Per HPI)
Objective Data
Data Reviewed
Vital Signs / I&O / Oxygen:
Vital Signs
Temp Pulse Resp BP Pulse Ox
97.6 F 95 18 113/85 97
11/30/24 07:35 11/30/24 06:00 11/30/24 06:00 11/30/24 06:00 11/30/24 06:00
Intake and Output
11/29/24 11/30/24 12/01/24
06:59 06:59 06:59
Intake Total 1860 / 1860 1050 / 1050
Output Total 2875 / 2875 2775 / 2775
Balance -1015 / -1015 -1725 / -1725
SaO2 97
Nasal Cannula flow liters per 2
minute
Physical Exam
General: Respiratory Distress (n) and Comfortable
HEENT: Normocephalic, Anicteric and Moist Mucous Membranes
Cardiovascular: Regular Rhythm
Respiratory: Wheeze (n), Crackles, Rhonchi (n), Non-Labored Respirations, Accessory Resp Muscle Use (n) and Stridor
GI: Soft, Non Distended and Non Tender
Neurology: Awake, Alert and No Motor Deficits
Skin: Warm, Good Color, Cyanosis (n), Jaundice (n) and Rash
Labs/Micro/Reports
Lab Data
11/30/24 04:00
11/30/24 04:00
Laboratory Results
11/29/24
16:05
PT 17.5 H
INR 1.39
APTT 32.0
Microbiology
11/29/24 14:32 Groin - Right Gram Stain - Preliminary
11/27/24 21:31 Groin - Right Wound Culture - Preliminary
11/27/24 21:31 Groin - Right Gram Stain - Preliminary
11/27/24 21:23 Nose MRSA Screen - Final
No Methicillin Resistant Staphylococcus aureus isolated.
[2024-11-30] MEDS: PACERONE 200 MG PO ×2 (08:00→19:56)
--- NOTE | 2024-11-30 08:00 | PTCARENOTE ---
Patient received lying in bed, awake, alert and oriented. He is without apparent signs of distress or discomfort. He currently denies pain. No CP or SOB. Left radial Yvette with good wave form and good square wave, leveled and zeroed as needed.
Correlates with peripheral cuff BP. Appetite is good. Fluid restriction maintained. Peripheral pulses via doppler BLE. Right groin dressing to wound vac, no drainage noted, dressing CDI. BBS clear. S1S2 irregular with positive murmur. Afib on CM.
[2024-11-30] MEDS: TOPROL XL 50 MG PO ×2 (08:03→19:56)
[2024-11-30] MEDS: TAPAZOLE 10 MG PO (08:03)
[2024-11-30] MEDS: ENTRESTO 24 MG/26 MG 1 TAB PO ×2 (08:04→19:56)
[2024-11-30] MEDS: ELIQUIS 5 MG PO ×2 (08:05→19:56)
[2024-11-30] MEDS: FARXIGA 10 MG PO (08:05)
[2024-11-30] MEDS: NICODERM TRANSDERMAL 14 MG TRANSDERM (08:05)
[2024-11-30] MEDS: LASIX 40 MG IV (08:47)
--- NOTE | 2024-11-30 09:19 | W.PN.VS ---
Today's Communication / Plan
-
See below.
Assessment/Plan
-
Assessment: 59-year-old male POD #1 Washout right groin with evacuation/debridement of seromatous collection and fibrinous exudate. Pulse lavage irrigation. Placement of wound VAC. Wound dimensions 8 cm x 3.5 cm x 4.5 cm
Plan:
Continue wound VAC, next change will be Tuesday12/03/2024 by vascular surgery team
Appreciate wound care nursing initiating dispo planning for wound VAC
Subjective Data
-
Date of Service: November 30, 2024
Patient seen and examined at bedside, relaxing comfortably eating breakfast. Offers no complaints, reports well-managed pain at right groin.
Objective Data
-
Vital Signs
Temp Pulse Resp BP Pulse Ox
97.6 F 98 18 113/60 97
11/30/24 07:35 11/30/24 08:47 11/30/24 06:00 11/30/24 08:47 11/30/24 06:00
Intake and Output
11/29/24 11/30/24 12/01/24
06:59 06:59 06:59
Intake Total 1859 / 0 1050 / 1050
Output Total 2875 / 2875 2775 / 2775
Balance -1015 / -1015 -1725 / -1725
Intake:
Oral fluids 1860 / 1860 770 / 770
IV fluids (Total) 120 / 120
kcl IV 20 / 20
nss 100 / 100
IV piggybacks 160 / 160
Output:
Urine, Wilkerson 325 / 325
Urine, Voided 2875 / 2875 2450 / 2450
Other:
Number of approximated MODERATE 5
amounts of urine
Lab Results
11/30/24 04:00
11/30/24 04:00
Calcium 8.5 mg/dl (8.4-10.2) 11/30/24 04:00
Phosphorus Cancelled 11/29/24 16:25
Magnesium 2.0 mg/dl (1.6-2.3) 11/30/24 04:00
Total Bilirubin 1.8 mg/dl (0.2-1.3) H 11/28/24 06:38
AST 18 U/L (17-59) 11/28/24 06:38
ALT 13 U/L (0-50) 11/28/24 06:38
Alkaline Phosphatase 127 U/L (38-126) H 11/28/24 06:38
Total Protein 6.0 g/dl (6.3-8.2) L 11/28/24 06:38
Albumin 3.4 g/dl (3.5-5.0) L 11/28/24 06:38
Physical Exam
-
No apparent distress, resting bed comfortably
No tachycardia
ABD rotund, nondistended, nontender
Right groin CDI, wound VAC holding suction, all surrounding skin intact
Bilateral feet warm
--- NOTE | 2024-11-30 10:37 | PTCARENOTE ---
Left Yvette discontinued per order. Manual pressure held x 5 minutes. No evidence of bleeding after manual pressure. Pressure dressing donned. Sats 98% on 1L/nc. Placed on RA. When patient fell asleep, noted with apneic periods and desaturating to
85% on RA. Replaced on oxygen at 1L/nc.
--- NOTE | 2024-11-30 14:35 | W.PN.CARDCBS ---
Addendum entered and electronically signed by Chela Clements DO 11/30/24 20:48:
I saw and examined the patient.
The Clinical Esthetician's note was reviewed and I agree with the note.
Comment: Seen and examined in ICU 3363. Overall feels well denies chest pain or pressure, shortness of breath or edema. No significant groin pain/foot pain.
GEN: No distress, awake, alert, oriented x3.
HEENT:mmm
LUNGS: CTA B/L, no wheezes/rales
CV: Irreg, S1/S2, no murmur
ABD: soft, BS+, NT/ND
EXT: Warm distal extremities. Trace bilateral edema, better than yesterday
NEURO: Gross non-focal
SKIN: R groin to wound vac
Plan:
Plan:
Medically complex 59-year-old gentleman with history of nonischemic cardiomyopathy with chronic HFrEF, atrial fibrillation on chronic Eliquis anticoagulation, cardioembolic occlusion of the left common femoral artery status post thrombectomy in
June 2023 and right iliac artery occlusion status post thrombectomy 10/29/2024 admitted with right groin seroma
-s/p R groin seroma removal, washout, and wound vac placement 11/29
-Initial, brief postop lethargy has improved related to anesthesia
-Relatively stable hemodynamics with borderline BP (MAP 77-89), not requiring pressors.
-DC A-line this morning.
-Okay to transfer to IVU per cardiology
-Postop wound care per vascular surgery
Permanent atrial fibrillation
-Eliquis anticoagulation resumed 11/29/2024 in the PM after surgery
-Continue rate control strategy with hold parameters: Currently on Toprol succinate 50 mg twice daily, amiodarone 200 mg twice daily. Plan to decrease amiodarone to 200 mg once daily starting 12/07/2024
-EP appointment 12/18/2024
History of hyperthyroidism on methimazole
-Check TSH as outpatient
Nonischemic cardiomyopathy, tachycardia mediated +/- alcohol
-Left heart catheterization May 22, 2024 with nonobstructive coronary artery disease in a codominant system
-Has EP appointment to discuss ICD placement as well as options for A-fib. He had previously been scheduled for cardioversion November 26 but canceled due to no insurance/cost prohibitive
-Outpatient goal-directed medical therapy: Metoprolol succinate 50 mg twice daily, Entresto 24/26 mg twice daily, Lasix 40 mg twice daily, Farxiga 10 mg daily.
-Consider addition of Aldactone prior to discharge
-Monitor on telemetry given history of NSVT.
-Appears mildly volume overloaded; proBNP 4066 (proBNP was 9190 10/2024). lasix held 11/29/24 for surgery. Volume status better after IV Lasix. Will continue today and hopefully resume oral Lasix tomorrow
-Follow I's and O's/daily weights
-Keep K greater than 4, mag greater than 2
-Tobacco and alcohol cessation/avoidance
History of thromboembolism of the left common femoral artery in 2022 and more recently of the right iliac artery requiring thrombectomy
-Anticoagulation resumed
-Hypercoagulable workup initiated by hospitalist
Type 2 diabetes mellitus with last hemoglobin A1c 10/31/2024 6%
-Goal normoglycemia
-Continue Farxiga.
Original Note:
Today's Communication / Plan
-
follow BPs. resume OP CM regimen as able
amio decreases to 200mg daily starting 12/07/24
wound care
EP follow up 12/18/24
Impression / Plan
-
Primary Forge Helper: Dr. Clements
Assessment:
Presentation with malaise
R groin drainage, suspected seroma
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
Persistent atrial fibrillation, first discovered July 2023
Chronic OAC with eliquis
Chronic HFrEF
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
NSVT
Hyperthyroidism
Noncompliance
Depression
History of ETOH and tobacco abuse
Obesity
ECHO 04/04/2024: EF 10 to 15%, severe global hypokinesis, mild MR, trace TR, PAP 30 to 33 mmHg
Cardiac catheterization 05/22/2024: Nonobstructive coronary disease with normal to mildly elevated right and left-sided filling pressures with normal cardiac output
Echocardiogram 10/30/2024: Severely dilated left ventricle, severely reduced LV systolic function, global hypokinesis with ejection fraction of 5-10%, moderate to severe eccentric TR with PA pressure of 30-35 mmHg, small pericardial effusion.
Plan:
-s/p R groin seroma removal, washout, and wound vac placement 11/29
-remains with hypotension, asymptomatic. continue toprol, entresto with hold parameters in place. OP lasix on hold, hopefully can resume in next 24 hours
-EF 5-10%, non ischemic CM. continue BB, entresto, farxiga.
-started on amiodarone last admission. remains in rate controlled afib on review of tele. continue BID amio dosing for 1 additional week then patient to decrease to 200mg daily as of 12/07.
-eliquis has been resumed post procedure.
-given history of NSVT and CM, would plan to keep K>4 and mag>2. replete K
-would follow on tele
-his prior noncompliance was reportedly secondary to financial issues. patient without insurance, working on medical assistance. he had been scheduled for CV 11/26 however cancelled due to no insurance/cost.
-EP evaluation has been rescheduled to 12/18/24 to discuss options regarding afib ie. ablation and ICD placement - which were discussed with patient 11/30 in detail. timeline likely pushed back due to groin issue as will need to be fully healed prior
to accessing for ablation.
PREADMIT DATA:
-Patient with history of cardioembolic occlusion of left common femoral artery 06/2023 presented back to [facility] last month due to right iliac artery occlusion status post thromboembolectomy 10/29/2024. During that time was also noted to
be in persistent rapid A-fib initially discovered 07/2023 with history of noncompliance with medications. Also with known low EF suspected tachycardia mediated status post cath 05/2024 with nonobstructive CAD. He presented back to the ER due to
generalized malaise and was noted to have a suspected seroma of his right groin.
Progress Note - Forge Helper
Subjective
Date of Service: November 30, 2024
no CP, SOB, lightheadedness
Objective
Labs:
11/30/24 04:00
11/30/24 04:00
Labs
Hgb 15.2 g/dL (13.0-18.0) 11/30/24 04:00
Hct 47.4 % (39.0-52.0) 11/30/24 04:00
Plt Count 281 10^3/uL (130-400) 11/30/24 04:00
PT 17.5 Sec (11.4-14.6) H 11/29/24 16:05
INR 1.39 11/29/24 16:05
APTT 32.0 Sec (23.4-35.0) 11/29/24 16:05
Sodium 140 mmol/L (135-145) 11/30/24 04:00
Potassium 3.7 mmol/L (3.5-5.1) 11/30/24 04:00
BUN 19 mg/dl (9-20) 11/30/24 04:00
Creatinine 1.0 mg/dL (0.7-1.3) 11/30/24 04:00
Glucose 102 mg/dl (70-99) H 11/30/24 04:00
Vital Signs and I&O:
Vital Signs
Temp Pulse Resp BP Pulse Ox
97.4 F 88 19 92/70 89
11/30/24 11:19 11/30/24 13:00 11/30/24 13:00 11/30/24 13:00 11/30/24 13:00
Vital Signs
Temp Pulse Resp BP Pulse Ox
97.4 F 88 19 92/70 89
11/30/24 11:19 11/30/24 13:00 11/30/24 13:00 11/30/24 13:00 11/30/24 13:00
Intake & Output
11/28/24 11/29/24 11/30/24 12/01/24
07:59 07:59 07:59 07:59
Intake Total 480 / 480 1860 / 1860 1050 / 1290 240 / 240
Output Total 2875 / 2875 2775 / 3050 1625 / 1625
Balance 480 / 480 -1015 / -1015 -1725 / -1760 -1385 / -1385
Physical Exam
Physical Exam
GEN: No distress, awake, alert, oriented x3. sitting in chair
HEENT: supple, anicteric, mmm, eomi
LUNGS: CTA B/L, no wheezes/rales
CV: Irreg, S1/S2, no murmur
ABD: soft, BS+, NT/ND
EXT: No cyanosis, clubbing. 1+ edema of B/L LE
NEURO: Gross non-focal
SKIN: Warm, pink, dry. No rash. R groin to wound vac
--- NOTE | 2024-11-30 17:00 | PTCARENOTE ---
Advised ANGELA Cox that patient's BP is soft with SBP 85-92, but MAP is within acceptable limits > 65. Orders requested for parameters on oral medications, received. Patient denies dizziness and is tolerating OOB to chair.
--- NOTE | 2024-11-30 17:41 | CM ---
Patient seen at bedside today with physicians. Patient is interested in possible SNF [facility] pending acceptance. [facility] has submitted MA application will need to send referrals when medically stable for referral. Patient now transferred to
IVU. CM will continue to follow for discharge planning needs.
Plan; SNF
--- NOTE | 2024-11-30 19:19 | PTCARENOTE ---
Report given verbally to CARROL Mccollum in IVU. Questions answered.
--- NOTE | 2024-11-30 19:45 | TRANSFER ---
Patient transferred from 3363 to 2257, verbal report given from off going RN. Patient transferred in bed with all belongings with RN and PCT.
[2024-12-01] VITALS (12 sets, daily range): BP systolic 89–121; BP diastolic 54–98; PULSE 104–131; O2SAT 95–98; BMI 37.6
--- NOTE | 2024-12-01 01:02 | PTCARENOTE ---
Received patient from ICU into room 2257. Patient ambulated to bed w/out difficulties. Denies any dizziness. Tele remains Afib w/ occasional PVCs. HR in the 90-110's at rest. Right groin dressing C/D/I, and wound vac maintained per order. Patient
denies any pain or discomfort. POC ongoing, call marshall within reach.
[2024-12-01 05:41] LABS: % Eosinophils 2.2 % (0-6); % Immature Granulocytes 0.3 % (0-0.5); % Lymphocytes 18.9 % (20.5-51.1); % Monocytes 8.1 % (1.7-9.3); % Neutrophils 69.5 % (42.2-75.2); Absolute Basophils 0.1 10^3/uL (0-0.2); Absolute Eosinophils 0.2 10^3/uL (0-0.7); Absolute Lymphocytes 1.5 10^3/uL (1.2-3.4); Absolute Monocytes 0.6 10^3/uL (0.1-0.6); Absolute Neutrophils 5.4 10^3/uL (1.4-6.5); Hematocrit 49.9 % (39.0-52.0); Hemoglobin 15.8 g/dL (13.0-18.0); Mean Corp Hgb Conc. 31.7 g/dL (33.0-37.0); Mean Corpuscular Hgb 31.3 pg (27.0-31.0); Mean Platelet Volume 9.6 fL (7.4-10.4); Nucleated Red Blood Cells % 0 % (-); Platelet Count 264 10^3/uL (130-400); Red Blood Cell Count 5.04 10^6/uL (4.70-6.10); Red Cell Dist. Width 15.9 % (11.5-14.5); White Blood Cell Count 7.7 10^3/uL (4.8-10.8)
[2024-12-01 06:14] LABS: Blood Urea Nitrogen 22 mg/dl (9-20); Calcium 9.3 mg/dl (8.4-10.2); Carbon Dioxide 26 mmol/L (22-30); Chloride 104 mmol/L (98-107); Estimated Creatinine Clearance 98 ml/min; Glucose 98 mg/dl (70-99); Potassium 4.4 mmol/L (3.5-5.1); Sodium 140 mmol/L (135-145); eGFR > 60.00
[2024-12-01] MEDS: ELIQUIS 5 MG PO ×2 (08:37→20:34)
[2024-12-01] MEDS: KCL 40 MEQ PO (08:37)
[2024-12-01] MEDS: LASIX 40 MG PO ×2 (08:38→17:06)
[2024-12-01] MEDS: PACERONE 200 MG PO ×2 (08:38→20:34)
[2024-12-01] MEDS: NICODERM TRANSDERMAL 14 MG TRANSDERM (08:38)
[2024-12-01] MEDS: TAPAZOLE 10 MG PO (08:39)
[2024-12-01] MEDS: FARXIGA 10 MG PO (08:39)
[2024-12-01] MEDS: TOPROL XL 50 MG PO (08:39)
[2024-12-01] MEDS: FLUSH (NSS) 2 FLUSH IV (08:40)
[2024-12-01] MEDS: ENTRESTO 24 MG/26 MG 1 TAB PO ×2 (08:40→20:34)
--- NOTE | 2024-12-01 09:39 | PTCARENOTE ---
Received patient this morning resting in bed, wound vac in place right groin with the dressing dry and intact. Patient ordering breakfast, offers no complaints, call marshall in reach.
--- NOTE | 2024-12-01 10:31 | W.PN.HOSP.TC ---
Today's Communication/Plan
-
PT/OT
wound vac change Tuesday
hopeful d/c afterwards
Assessment / Plan
Assessment / Plan
pt is a 59 year old male
Wound Dehiscence, s/p R Iliac Thromboembolectomy (11/06)--met sepsis criteria (tachycardic, tachypneic POA) with likely groin infection--apprec vascular input--wound culture with pseudomonas and E. coli (superficial)--cultures from OR no growth--was
not IV zosyn as previously thought--no need to restart with negative OR cultures---apprec wound care/vacular--s/p OR washout with wound vac 11/29/24--Eliquis restarted--first wound vac change to be done Tuesday
Acute Exacerbation of HFrEF--last echo from 10/30 shows severe LV dilation, severely reduced LVEF w/EF of 5-10% and Stage II diastolic dysfunction--has BL pitting edema, cough, but is saturating well w/ CXR findings negative for acute
cardiopulmonary process--will give IV lasix BID as tolerated then convert back to home doses when stable--apprec cards--ProBNP on admission was 4060, on last admission was 9160--- continue with home GDMT metoprolol succinate, jardiance, entresto
Episode of lethargy and apnea in PACU--strong possibility of sleep apnea--cont O2--will need outpt sleep study--also EF 5-10%-resolved
hypokalemia--KCl replete
Permanent Afib with RVR-- ECG on admission shows Afib w/RVR--apprec cards-- restarting eliquis --cont amio
Hyperthyroid - asymptomatic at this time. Will continue on Methimazole
DVT PPx - on Eliquis
Code - Full Code
Anticipated Discharge: > 48 hours
Subjective/Interval History
-
Date of Service: December 01, 2024
pt without c/o
Objective Data
-
Labs:
Laboratory Results
12/01/24
04:30
WBC 7.7
Hgb 15.8
Hct 49.9
Plt Count 264
Sodium 140
Potassium 4.4
Chloride 104
Carbon Dioxide 26
BUN 22 H
Creatinine 1.1
Glucose 98
Calcium 9.3
Vital Signs:
max temp for 24 hours
12/01/24
04:21
Temp 97.8 F
Vital Signs
Temp Pulse Resp BP Pulse Ox
98.2 F 102 18 110/71 97
12/01/24 08:02 12/01/24 08:02 12/01/24 08:02 12/01/24 08:02 12/01/24 08:02
I&O
11/30/24 12/01/24 12/02/24
06:59 06:59 06:59
Intake Total 1050 / 1050 1080 / 1080
Output Total 2775 / 2775 2600 / 2600
Balance -1725 / -1725 -1520 / -1520
Review of Systems
-
All other systems: Reviewed and negative
Physical Exam
-
General: Well Developed, Well Nourished and No Apparent Distress
HEENT: Normocephalic and Atraumatic
Respiratory: Clear to Auscultation; Negative Wheezes or Rhonchi
Cardiac: Irregular Rhythm and Tachycardic; Negative Murmur
GI: Soft, Nontender, Nondistended and Normal Bowel Sounds
Musculoskeletal: No Clubbing and No Cyanosis; Negative No Edema (1+ bilateral LE edema)
Neuro: Awake and Alert
Psych: Calm
--- NOTE | 2024-12-01 10:34 | W.PN.CARDCBS ---
Addendum entered and electronically signed by Cezar Wanger MD 12/01/24 11:23:
Patient seen, interviewed and examined by me.
Well-appearing, no acute distress
Regular rate and rhythm with normal S1 and S2, no S3 no S4. There is a grade 1/6 apical holosystolic murmur and no rubs. PMI is normally placed.
Lungs are clear to auscultation bilaterally without wheezes rales or rhonchi.
Abdomen soft nontender nondistended with normoactive bowel sounds
Extremities show trace pretibial edema bilaterally no clubbing or cyanosis.
Neurologic exam is grossly nonfocal.
Patient with history of cardioembolic occlusion of left common femoral artery 06/2023 presented back to [facility] last month due to right iliac artery occlusion status post thromboembolectomy 10/29/2024. During that time was also noted to
be in persistent rapid A-fib initially discovered 07/2023 with history of noncompliance with medications. Also with known low EF suspected tachycardia mediated status post cath 05/2024 with nonobstructive CAD. He presented back to the ER due to
generalized malaise and was noted to have a suspected seroma of his right groin.
ECHO 04/04/2024: EF 10 to 15%, severe global hypokinesis, mild MR, trace TR, PAP 30 to 33 mmHg
Cardiac catheterization 05/22/2024: Nonobstructive coronary disease with normal to mildly elevated right and left-sided filling pressures with normal cardiac output
Echocardiogram 10/30/2024: Severely dilated left ventricle, severely reduced LV systolic function, global hypokinesis with ejection fraction of 5-10%, moderate to severe eccentric TR with PA pressure of 30-35 mmHg, small pericardial effusion.
Assessment and plan
HFrEF possibly tachycardia mediated related to atrial fibrillation
Continue amiodarone loading.
Increase beta-renee to better obtain rate control, increase Toprol-XL from 50 mg twice daily to 75 mg twice daily
Likely euvolemic, continue current dose of Lasix 40 mg p.o. twice daily
Atrial fibrillation, persistent atrial fibrillation first diagnosed in 2022. Rates are now rapid
Continue amiodarone loading.
Increase beta-renee to better obtain rate control, increase Toprol-XL from 50 mg twice daily to 75 mg twice daily
Maintain Eliquis 5 mg twice daily for atrial fibrillation related thromboembolic risk reduction
Patient has had previous discussion regarding possibility of EP study ablation targeting atrial fibrillation also consideration for ICD given his cardiomyopathy.
Plans were for outpatient discussion given ongoing need for right groin wound VAC to treat his seroma.
Original Note:
Today's Communication / Plan
-
increase Toprol to 75 mg bid for better rate control- I ordered
cont Eliquis
Impression / Plan
-
Primary Music Education Adjunct Professor: Dr. Clements
Assessment:
Presentation with malaise
R groin drainage, suspected seroma
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
Persistent atrial fibrillation, first discovered July 2023
Chronic OAC with eliquis
Chronic HFrEF
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
NSVT
Hyperthyroidism
Noncompliance
Depression
History of ETOH and tobacco abuse
Obesity
ECHO 04/04/2024: EF 10 to 15%, severe global hypokinesis, mild MR, trace TR, PAP 30 to 33 mmHg
Cardiac catheterization 05/22/2024: Nonobstructive coronary disease with normal to mildly elevated right and left-sided filling pressures with normal cardiac output
Echocardiogram 10/30/2024: Severely dilated left ventricle, severely reduced LV systolic function, global hypokinesis with ejection fraction of 5-10%, moderate to severe eccentric TR with PA pressure of 30-35 mmHg, small pericardial effusion.
Plan:
-s/p R groin seroma removal, washout, and wound vac placement 11/29
-remains with hypotension at times, asymptomatic. continue toprol, entresto with hold parameters in place. OP lasix on hold, hopefully can resume in next 24 hours
-EF 5-10%, non ischemic CM. continue BB, entresto, farxiga.
-started on amiodarone last admission. remains in rate controlled afib on review of tele. continue BID amio dosing for 1 additional week then patient to decrease to 200mg daily as of 12/07.
-eliquis has been resumed post procedure.
-given history of NSVT and CM, would plan to keep K>4 and mag>2. K 4.4 12/01/2024, Mag 1.1 11/30/2024
-Telem: afib with HRs 80s-120s
-his prior noncompliance was reportedly secondary to financial issues. patient without insurance, working on medical assistance. he had been scheduled for CV 11/26 however cancelled due to no insurance/cost.
-EP evaluation has been rescheduled to 12/18/24 to discuss options regarding afib ie. ablation and ICD placement - which were discussed with patient 11/30 in detail. timeline likely pushed back due to groin issue as will need to be fully healed prior
to accessing for ablation.
PREADMIT DATA:
-Patient with history of cardioembolic occlusion of left common femoral artery 06/2023 presented back to [facility] last month due to right iliac artery occlusion status post thromboembolectomy 10/29/2024. During that time was also noted to
be in persistent rapid A-fib initially discovered 07/2023 with history of noncompliance with medications. Also with known low EF suspected tachycardia mediated status post cath 05/2024 with nonobstructive CAD. He presented back to the ER due to
generalized malaise and was noted to have a suspected seroma of his right groin.
Progress Note - Music Education Adjunct Professor
Subjective
Date of Service: December 01, 2024
denies palps, LH, SOB, CP
in afib with HRs up to 120s
Objective
Labs:
12/01/24 04:30
12/01/24 04:30
Labs
Hgb 15.8 g/dL (13.0-18.0) 12/01/24 04:30
Hct 49.9 % (39.0-52.0) 12/01/24 04:30
Plt Count 264 10^3/uL (130-400) 12/01/24 04:30
PT 17.5 Sec (11.4-14.6) H 11/29/24 16:05
INR 1.39 11/29/24 16:05
APTT 32.0 Sec (23.4-35.0) 11/29/24 16:05
Sodium 140 mmol/L (135-145) 12/01/24 04:30
Potassium 4.4 mmol/L (3.5-5.1) 12/01/24 04:30
BUN 22 mg/dl (9-20) H 12/01/24 04:30
Creatinine 1.1 mg/dL (0.7-1.3) 12/01/24 04:30
Glucose 98 mg/dl (70-99) 12/01/24 04:30
Vital Signs and I&O:
Vital Signs
Temp Pulse Resp BP Pulse Ox
98.2 F 102 18 110/71 97
12/01/24 08:02 12/01/24 08:02 12/01/24 08:02 12/01/24 08:02 12/01/24 08:02
Vital Signs
Temp Pulse Resp BP Pulse Ox
98.2 F 102 18 110/71 97
12/01/24 08:02 12/01/24 08:02 12/01/24 08:02 12/01/24 08:02 12/01/24 08:02
Intake & Output
11/29/24 11/30/24 12/01/24 12/02/24
06:59 06:59 06:59 06:59
Intake Total 1860 / 1860 1050 / 1050 1080 / 1080
Output Total 2875 / 2875 2775 / 2775 2600 / 2600
Balance -1015 / -1015 -1725 / -1725 -1520 / -1520
Physical Exam
Physical Exam
GEN: No distress, awake, Ox3
HEENT: supple, anicteric, mmm
LUNGS: CTA, no wheezes/rales
CV: tachy, irreg, irreg
ABD: soft, BS+, NT/ND
EXT: No edema
NEURO: Gross non-focal
SKIN: No rash
[2024-12-01] MEDS: TOPROL XL 75 MG PO (20:35)
[2024-12-01] MEDS: MYLICON 80 MG PO (21:34)
[2024-12-02] VITALS (8 sets, daily range): BP systolic 94–105; BP diastolic 66–83; BMI 37.5
[2024-12-02 01:00] LABS: Beta-2-Glycoprotein I Ab. IgA 11 SAU (<=20); Beta-2-Glycoprotein I Ab. IgG <10 SGU (<=20); Beta-2-Glycoprotein I Ab. IgM <10 SMU (<=20)
[2024-12-02 02:48] LABS: % Basophils 1.5 % (0-2); % Eosinophils 1.9 % (0-6); % Immature Granulocytes 0.4 % (0-0.5); % Lymphocytes 21.6 % (20.5-51.1); % Monocytes 8.5 % (1.7-9.3); % Neutrophils 66.1 % (42.2-75.2); Absolute Basophils 0.1 10^3/uL (0-0.2); Absolute Eosinophils 0.2 10^3/uL (0-0.7); Absolute Lymphocytes 1.8 10^3/uL (1.2-3.4); Absolute Monocytes 0.7 10^3/uL (0.1-0.6); Absolute Neutrophils 5.4 10^3/uL (1.4-6.5); Hematocrit 52.2 % (39.0-52.0); Hemoglobin 16.8 g/dL (13.0-18.0); Mean Corp Hgb Conc. 32.2 g/dL (33.0-37.0); Mean Corpuscular Hgb 31.5 pg (27.0-31.0); Mean Corpuscular Volume 97.9 fL (80.0-94.0); Mean Platelet Volume 9.5 fL (7.4-10.4); Nucleated Red Blood Cells % 0 % (-); Platelet Count 280 10^3/uL (130-400); Red Blood Cell Count 5.33 10^6/uL (4.70-6.10); Red Cell Dist. Width 15.9 % (11.5-14.5); White Blood Cell Count 8.1 10^3/uL (4.8-10.8)
[2024-12-02 03:12] LABS: Blood Urea Nitrogen 20 mg/dl (9-20); Calcium 9.3 mg/dl (8.4-10.2); Carbon Dioxide 25 mmol/L (22-30); Chloride 103 mmol/L (98-107); Estimated Creatinine Clearance 98 ml/min; Glucose 113 mg/dl (70-99); Magnesium 2.1 mg/dl (1.6-2.3); Potassium 4.5 mmol/L (3.5-5.1); Sodium 140 mmol/L (135-145); eGFR > 60.00
--- NOTE | 2024-12-02 07:29 | W.PN.CARDCBS ---
Today's Communication / Plan
-
Maintain amiodarone
Maintain current dose beta-renee which was just increased yesterday, heart rate has improved, continue to follow may need to further uptitrate beta-renee
Impression / Plan
-
Primary Director Of Direct Marketing: Dr. Clements
PREADMIT DATA:
Patient with history of cardioembolic occlusion of left common femoral artery 06/2023 presented back to [facility] last month due to right iliac artery occlusion status post thromboembolectomy 10/29/2024. During that time was also noted to
be in persistent rapid A-fib initially discovered 07/2023 with history of noncompliance with medications. Also with known low EF suspected tachycardia mediated status post cath 05/2024 with nonobstructive CAD.
He presented back to the ER due to generalized malaise and was noted to have a suspected seroma of his right groin. He was also found to be in decompensated heart failure with reduced ejection fraction and have atrial fibrillation with rapid
ventricular rates.
Assessment:
Presentation with malaise
R groin drainage, suspected seroma
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
Persistent atrial fibrillation, first discovered July 2023
Chronic OAC with eliquis
Chronic HFrEF
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
NSVT
Hyperthyroidism
Noncompliance
Depression
History of ETOH and tobacco abuse
Obesity
ECHO 04/04/2024: EF 10 to 15%, severe global hypokinesis, mild MR, trace TR, PAP 30 to 33 mmHg
Cardiac catheterization 05/22/2024: Nonobstructive coronary disease with normal to mildly elevated right and left-sided filling pressures with normal cardiac output
Echocardiogram 10/30/2024: Severely dilated left ventricle, severely reduced LV systolic function, global hypokinesis with ejection fraction of 5-10%, moderate to severe eccentric TR with PA pressure of 30-35 mmHg, small pericardial effusion.
Assessment and plan
HFrEF possibly tachycardia mediated related to atrial fibrillation
Continue amiodarone loading.
Increased beta-renee to better obtain rate control, increase Toprol-XL from 50 mg twice daily to 75 mg twice daily and heart rate control has improved
Likely euvolemic, continue current dose of Lasix 40 mg p.o. twice daily
Atrial fibrillation, persistent atrial fibrillation first diagnosed in 2022. Rates are now rapid
Continue amiodarone loading.
Increased beta-renee to better obtain rate control, increase Toprol-XL from 50 mg twice daily to 75 mg twice daily on 12/01/24 and heart rate has improved
Maintain Eliquis 5 mg twice daily for atrial fibrillation related thromboembolic risk reduction
Patient has had previous discussion regarding possibility of EP study ablation targeting atrial fibrillation also consideration for ICD given his cardiomyopathy.
Plans were for outpatient ablation / consideration for ICD discussion planned for 12/19/24 (will likely be some delay in scheduling procedure date given ongoing need for right groin wound VAC to treat his seroma).
History of medical noncompliance with lack of insurance playing a significant role, working on medical assistance.
Left SFA seroma
Being followed by vascular surgery and wound VAC, next change will be Tuesday12/03/2024 by vascular surgery team
total time 50 min
Progress Note - Director Of Direct Marketing
Subjective
Date of Service: December 02, 2024
Denies chest pain shortness of breath palpitations or dizziness
Objective
Labs:
12/02/24 02:34
12/02/24 02:34
Labs
Hgb 16.8 g/dL (13.0-18.0) 12/02/24 02:34
Hct 52.2 % (39.0-52.0) H 12/02/24 02:34
Plt Count 280 10^3/uL (130-400) 12/02/24 02:34
PT 17.5 Sec (11.4-14.6) H 11/29/24 16:05
INR 1.39 11/29/24 16:05
APTT 32.0 Sec (23.4-35.0) 11/29/24 16:05
Sodium 140 mmol/L (135-145) 12/02/24 02:34
Potassium 4.5 mmol/L (3.5-5.1) 12/02/24 02:34
BUN 20 mg/dl (9-20) 12/02/24 02:34
Creatinine 1.1 mg/dL (0.7-1.3) 12/02/24 02:34
Glucose 113 mg/dl (70-99) H 12/02/24 02:34
Vital Signs and I&O:
Vital Signs
Temp Pulse Resp BP Pulse Ox
97.5 F 88 20 103/78 98
12/02/24 06:51 12/02/24 05:00 12/02/24 06:51 12/02/24 02:18 12/02/24 06:51
Vital Signs
Temp Pulse Resp BP Pulse Ox
97.5 F 88 20 103/78 98
12/02/24 06:51 12/02/24 05:00 12/02/24 06:51 12/02/24 02:18 12/02/24 06:51
Intake & Output
11/30/24 12/01/24 12/02/24 12/03/24
06:59 06:59 06:59 06:59
Intake Total 1050 / 1050 1080 / 1080 1200 / 1200
Output Total 2775 / 2775 2600 / 2600 1425 / 1425
Balance -1725 / -1725 -1520 / -1520 -225 / -225
Physical Exam
Physical Exam
Well-appearing, no acute distress
Regular rate and rhythm with normal S1 and S2, no S3 no S4. There is a grade 1/6 apical holosystolic murmur and no rubs. PMI is normally placed.
Lungs are clear to auscultation bilaterally without wheezes rales or rhonchi.
Abdomen soft nontender nondistended with normoactive bowel sounds
Extremities show trace pretibial edema bilaterally no clubbing or cyanosis.
Neurologic exam is grossly nonfocal.
[2024-12-02 07:35] LABS: Cardiolipin IgA Antibody <10 APL (<=11); Cardiolipin IgM Antibody <10 MPL (<=12); Cardiolipin Igg Antibody <10 GPL (<=14)
[2024-12-02] MEDS: ELIQUIS 5 MG PO ×2 (09:09→20:38)
[2024-12-02] MEDS: TAPAZOLE 10 MG PO (09:09)
[2024-12-02] MEDS: PACERONE 200 MG PO ×2 (09:09→20:38)
[2024-12-02] MEDS: FLUSH (NSS) 1 FLUSH IV (09:10)
[2024-12-02] MEDS: TOPROL XL 75 MG PO ×2 (09:10→20:38)
[2024-12-02] MEDS: FARXIGA 10 MG PO (09:11)
[2024-12-02] MEDS: KCL 40 MEQ PO (09:11)
[2024-12-02] MEDS: ENTRESTO 24 MG/26 MG 1 TAB PO ×2 (09:11→20:38)
[2024-12-02] MEDS: NICODERM TRANSDERMAL 14 MG TRANSDERM (09:12)
[2024-12-02] MEDS: LASIX 40 MG PO ×2 (09:12→16:43)
--- NOTE | 2024-12-02 10:33 | W.PN.HOSP.TC ---
Today's Communication/Plan
-
wound vac change Tuesday
CM for d/c planning
Assessment / Plan
Assessment / Plan
pt is a 59 year old male
Wound Dehiscence, s/p R Iliac Thromboembolectomy (11/06)--met sepsis criteria (tachycardic, tachypneic POA) initially thought to be groin infection--apprec vascular input--superficial wound culture (from ED) with pseudomonas and E. coli
(superficial)--cultures from OR no growth--was not IV zosyn as previously thought--no need to restart with negative OR cultures---apprec wound care/vacular--s/p OR washout with wound vac 11/29/24--Eliquis restarted--first wound vac change to be done
Tuesday
Acute Exacerbation of HFrEF--last echo from 10/30 shows severe LV dilation, severely reduced LVEF w/EF of 5-10% and Stage II diastolic dysfunction--has BL pitting edema, cough, but is saturating well w/ CXR findings negative for acute
cardiopulmonary process--will give IV lasix BID as tolerated then convert back to home doses when stable--apprec cards--ProBNP on admission was 4060, on last admission was 9160--- continue with home GDMT metoprolol succinate, jardiance, entresto
Episode of lethargy and apnea in PACU--strong possibility of sleep apnea--cont O2--will need outpt sleep study--also EF 5-10%-resolved
hypokalemia--KCl replete
Permanent Afib with RVR-- ECG on admission shows Afib w/RVR--apprec cards-- restarting eliquis --cont amio
Hyperthyroid - asymptomatic at this time. Will continue on Methimazole
DVT PPx - on Eliquis
Code - Full Code
Anticipated Discharge: Within 24 hours
Subjective/Interval History
-
Date of Service: December 02, 2024
pt waiting for wound vac change Tuesday
Objective Data
-
Labs:
Laboratory Results
12/02/24
02:34
WBC 8.1
Hgb 16.8
Hct 52.2 H
Plt Count 280
Sodium 140
Potassium 4.5
Chloride 103
Carbon Dioxide 25
BUN 20
Creatinine 1.1
Glucose 113 H
Calcium 9.3
Vital Signs:
max temp for 24 hours
12/01/24
08:02
Temp 98.2 F
Vital Signs
Temp Pulse Resp BP Pulse Ox
97.5 F 93 20 100/68 98
12/02/24 06:51 12/02/24 07:00 12/02/24 06:51 12/02/24 06:57 12/02/24 06:51
I&O
12/01/24 12/02/24 12/03/24
06:59 06:59 06:59
Intake Total 1080 / 1080 1200 / 1200
Output Total 2600 / 2600 1425 / 1425
Balance -1520 / -1520 -225 / -225
Review of Systems
-
All other systems: Reviewed and negative
Physical Exam
-
General: Well Developed, Well Nourished and No Apparent Distress
HEENT: Normocephalic and Atraumatic
Respiratory: Clear to Auscultation; Negative Wheezes or Rhonchi
Cardiac: Irregular Rhythm
GI: Soft, Nontender, Nondistended and Normal Bowel Sounds
Musculoskeletal: No Clubbing and No Cyanosis; Negative No Edema (1+ LE edema bilaterally--wound vac in right groin)
Neuro: Awake
Psych: Calm
--- NOTE | 2024-12-02 10:51 | PTCARENOTE ---
Received patient this morning sitting oob in the chair, wound vac in place and dressing is dry and intact. Offers no complaints, call marshall in reach.
--- NOTE | 2024-12-02 16:48 | PTCARENOTE ---
Wound vac dressing dry and intact right groin, no leakage noted but vac machine alarming blockage. Tubing free of kinks, patient repositioned and it appears some fluid is moving through the drainage tube but despite multiple attempts to secure with
extra tegaderm, checking connections, resetting device, machine continues to alarm blockage and pressure not maintained. TT to Dr. Carl, vascular induction machine setter who telephoned back. Explained issue and order to remove vac dressing and apply wet to
dry dressing until vascular sees in the morning and changes dressing. Foam vac dressing noted to be deeply packed into right groin, gently removed from the right groin with saline, public area very excoriated- 3m skin prep applied to surrounding
area. Wet to dry saline dressing applied to wound and secured with tegaderm.
--- NOTE | 2024-12-02 23:27 | PTCARENOTE ---
received patient at the change of shift. AAOx3. Afib on [id number]. denies any cp/sob. bp stable. + 1 LE edema noted/doppler pulses present. patient states feeling 'wet' at Rt groin site. dressing not intact. redressed Rt groin with a wet to dry
dressing. cleansed with sterile saline. new Tegaderm applied. educated patient to inform RN with any changes. call marshall within reach. makes needs known.
[2024-12-03] VITALS (9 sets, daily range): BP systolic 83–119; BP diastolic 59–79; BMI 37.2
[2024-12-03 03:41] LABS: Hemoglobin 16.9 g/dL (13.0-18.0); Mean Corp Hgb Conc. 32.5 g/dL (33.0-37.0); Mean Corpuscular Hgb 31.8 pg (27.0-31.0); Mean Corpuscular Volume 97.7 fL (80.0-94.0); Mean Platelet Volume 9.6 fL (7.4-10.4); Platelet Count 277 10^3/uL (130-400); Red Blood Cell Count 5.32 10^6/uL (4.70-6.10); Red Cell Dist. Width 15.9 % (11.5-14.5); White Blood Cell Count 9.5 10^3/uL (4.8-10.8)
[2024-12-03 04:04] LABS: Blood Urea Nitrogen 19 mg/dl (9-20); Calcium 9.2 mg/dl (8.4-10.2); Carbon Dioxide 27 mmol/L (22-30); Chloride 102 mmol/L (98-107); Estimated Creatinine Clearance 98 ml/min; Glucose 114 mg/dl (70-99); Magnesium 2.1 mg/dl (1.6-2.3); Potassium 4.1 mmol/L (3.5-5.1); Sodium 139 mmol/L (135-145); eGFR > 60.00
[2024-12-03] MEDS: PACERONE 200 MG PO (08:06)
[2024-12-03] MEDS: LASIX 40 MG PO ×2 (08:06→16:45)
[2024-12-03] MEDS: FARXIGA 10 MG PO (08:06)
[2024-12-03] MEDS: ELIQUIS 5 MG PO ×2 (08:06→20:18)
[2024-12-03] MEDS: ENTRESTO 24 MG/26 MG 1 TAB PO ×2 (08:06→20:18)
[2024-12-03] MEDS: KCL 40 MEQ PO (08:06)
[2024-12-03] MEDS: NICODERM TRANSDERMAL 14 MG TRANSDERM (08:07)
[2024-12-03] MEDS: TOPROL XL 75 MG PO ×2 (08:08→20:18)
--- NOTE | 2024-12-03 08:08 | W.PN.VS ---
Addendum entered and electronically signed by Costa Holder MD 12/03/24 08:26:
Seen and examined with MANISHA Saab. Agree with findings as noted below. Right groin dressing change. Wound is clean. Excellent granulation tissue. No purulent drainage. Right foot warm. Plan/as discussed and noted below.
Original Note:
Today's Communication / Plan
-
Patient seen and examined at bedside with Dr. Costa Holder, below plan reviewed with attending.
Assessment/Plan
-
Assessment: 59-year-old male POD #4 Washout right groin with evacuation/debridement of seromatous collection and fibrinous exudate. Pulse lavage irrigation. Placement of wound VAC. Wound dimensions 8 cm x 3.5 cm x 4.5 cm
Plan:
For the time wet-to-dry dressing change this morning, patient requesting dispo planning to rehab/SNF facility, agree with this plan given patient resides alone and is unable to observe the wound or visualize it
Appreciate wound care nursing initiating dispo planning for wound VAC
Case management consult for rehab placement
If patient is going to rehab today will keep wet-to-dry dressing as the facility will place their own wound VAC to incision, if unable to find placement for today I will return to replace wound VAC
Subjective Data
-
Date of Service: December 03, 2024
Patient seen and examined at bedside, does endorse that wound VAC began to not hold suction yesterday and replaced with wet-to-dry dressing. He expresses concerns for being able to care for himself at home especially if with the need of wound VAC.
He states he resides alone and if the wound VAC is to stop holding suction or if he requires any additional help with wound care he will not be able to do it alone and he is not able to observe the incision as he cannot see it.
Objective Data
-
Vital Signs
Temp Pulse Resp BP Pulse Ox
97.5 F 89 18 105/69 99
12/03/24 07:06 12/03/24 08:00 12/03/24 07:06 12/03/24 07:08 12/03/24 07:06
Intake and Output
12/02/24 12/03/24 12/04/24
06:59 06:59 06:59
Intake Total 1200 / 1200 1690 / 1690
Output Total 1425 / 1425 1600 / 1600
Balance -225 / -225 90 / 90
Intake:
Oral fluids 1200 / 1200 1690 / 1690
Output:
Urine, Voided 1425 / 1425 1600 / 1600
Lab Results
12/03/24 03:26
12/03/24 03:26
Calcium 9.2 mg/dl (8.4-10.2) 12/03/24 03:26
Phosphorus Cancelled 11/29/24 16:25
Magnesium 2.1 mg/dl (1.6-2.3) 12/03/24 03:26
Total Bilirubin 1.8 mg/dl (0.2-1.3) H 11/28/24 06:38
AST 18 U/L (17-59) 11/28/24 06:38
ALT 13 U/L (0-50) 11/28/24 06:38
Alkaline Phosphatase 127 U/L (38-126) H 11/28/24 06:38
Total Protein 6.0 g/dl (6.3-8.2) L 11/28/24 06:38
Albumin 3.4 g/dl (3.5-5.0) L 11/28/24 06:38
Physical Exam
-
No apparent distress, resting bed comfortably
No tachycardia
ABD rotund, nondistended, nontender
Right groin wet-to-dry dressing changed, no evidence of infection, pocket with good granulation tissue, all surrounding skin intact
Bilateral feet warm
[2024-12-03] MEDS: TAPAZOLE 10 MG PO (08:10)
--- NOTE | 2024-12-03 08:27 | W.PN.HOSP.TC ---
Addendum entered and electronically signed by Lety Gilbert MD 12/03/24 18:11:
I saw and evaluated the patient independently. I reviewed the resident�s note and agree with findings and plan as documented by Dr. Nielson.
GENERAL: well developed, well nourished, male in no apparent distress
HEENT: NC/AT
HEART: irreg irreg
LUNGS : clear to auscultation bilaterally
ABDOM: soft, nontender, nondistended, + bowel sounds
EXT: no cyanosis, clubbing, or edema--wound vac right groin
NEUROLOGIC: grossly intact
Wound Dehiscence, s/p R Iliac Thromboembolectomy (11/06)--met sepsis criteria on admission--apprec vascular input--superficial wound culture (from ED) with pseudomonas and E. coli (superficial)--cultures from OR no growth--was not IV zosyn as
previously thought--no need to restart with negative OR cultures---apprec wound care/vacular--s/p OR washout with wound vac 11/29/24--Eliquis restarted--wound vac changed Tuesday
Acute Exacerbation of HFrEF--last echo from 10/30 shows severe LV dilation, severely reduced LVEF w/EF of 5-10% and Stage II diastolic dysfunction--has BL pitting edema, cough, but is saturating well w/ CXR findings negative for acute
cardiopulmonary process--will give IV lasix BID as tolerated then convert back to home doses when stable--apprec cards--ProBNP on admission was 4060, on last admission was 9160--- continue with home GDMT metoprolol succinate, jardiance, entresto
Episode of lethargy and apnea in PACU--strong possibility of sleep apnea--cont O2--will need outpt sleep study--also EF 5-10%-resolved
hypokalemia--KCl replete
Permanent Afib with RVR-- ECG on admission shows Afib w/RVR--apprec cards-- restarting eliquis --cont amio
Hyperthyroid - asymptomatic at this time. Will continue on Methimazole
DVT PPx - on Eliquis
Code - Full Code
medically stable for discharge
Original Note:
Today's Communication/Plan
-
Discharge planning, likely home with VN for wound vac changes.
Assessment / Plan
Assessment / Plan
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
thrombectomy who presented with fatigue/weakness.
#Episode of lethargy and apnea following surgery
- Patient briefly lethargic with weak pulses and intermittent apnea in PACU following surgery. Patient has severely low EF at 5-10% on last Echo and an A-line was placed, decision made to place him in ICU overnight immediately postop. Symptoms have
since resolved. Downgraded to IVU. Doing well, pending discharge planning.
#Wound Dehiscence following R Iliac Thromboembolectomy (11/06)
#S/p R groin washout of seroma w/ Wound VAC placement
- SIRS positive on admission (tachy, tachypneic, possible infection). Had dose of abx in ED. Intraop cultures NGTD. Pending placement to SNF which can accommodate wound vac. Talked to CM, patient does not meet requirements for SNF and will have to
be discharged home with VN for wound care/wound vac changes.
#Apneic Episodes
- Several episodes of apnea observed overnight. Possible Sleep Apnea given patient's history, STOP BANG score >4
- will continue to observe saturations, strong suggestion for OP follow up for sleep testing
#Acute Exacerbation of HFrEF, resolved
- last echo from 10/30 shows severe LV dilation, severely reduced LVSF w/ EF of 5-10% and Stage II diastolic dysfunction. ProBNP on admission was 4060, on last admission was 9160. CXR negative for acute cardiopulmonary process.
- Edema resolving, cough resolving, is saturating well. Off O2.
- C/w PO Lasix 40 BID. Continue with home GDMT metoprolol succinate, Farxiga, Entresto.
#Hypokalemia - C/w KCL 40meq for K replenishment. Will monitor and replete as necessary.
#Afib with RVR - ECG on admission showed Afib w/ RVR. Resume Eliquis. Reduce Amiodarone to qd. Appreciate cardio recc.
#Hyperthyroid - asymptomatic at this time. Will continue on Methimazole.
#Current Tobacco Use - Nicotine patch 14mg, can increase if not working
Diet - HF Diet, <2g sodium
DVT PPx - resume Eliquis
Code - Full Code
Anticipated Discharge: Within 24 hours
Subjective/Interval History
-
Feeling well this morning, no acute complaints.
Objective Data
-
Labs:
Laboratory Results
12/03/24
03:26
WBC 9.5
Hgb 16.9
Hct 52.0
Plt Count 277
Sodium 139
Potassium 4.1
Chloride 102
Carbon Dioxide 27
BUN 19
Creatinine 1.1
Glucose 114 H
Calcium 9.2
Vital Signs:
Vital Signs
Temp Pulse Resp BP Pulse Ox
97.5 F 89 18 105/69 99
12/03/24 07:06 12/03/24 08:00 12/03/24 07:06 12/03/24 07:08 12/03/24 07:06
I&O
12/02/24 12/03/24 12/04/24
06:59 06:59 06:59
Intake Total 1200 / 1200 1690 / 1690
Output Total 1425 / 1425 1600 / 1600
Balance -225 / -225 90 / 90
Review of Systems
-
History Source: Patient
All other systems: Reviewed and negative
Constitutional: Denies Fever or Chills
EENT: Reports No Symptoms Reported
Respiratory: Denies Cough, Trouble Breathing or Wheezing
Cardiac: Denies Chest Pain or Diaphoresis
Abdomen/GI: Reports No Symptoms
Breast: Reports N/A
Genitourinary: Reports No Symptoms
Musculoskeletal: Reports No Symptoms
Skin: Reports No Symptoms
Neuro: Reports No Symptoms
Physical Exam
-
General: Well Developed, Well Nourished, No Apparent Distress and Comfortable; Negative Fever or Sweats
HEENT: Normocephalic, Atraumatic, Moist Mucous Membranes and PERRLA
Respiratory: Clear to Auscultation; Negative Wheezes, Rales or Rhonchi
Cardiac: Regular Rhythm and S1/S2; Negative Murmur
Breast: N/A
GI: Soft, Nontender, Nondistended and Normal Bowel Sounds
Musculoskeletal: No Clubbing, No Cyanosis and No Edema
Skin: Other (R groin dressing freshly changed. Surrounding area nontender/non-erythematous. )
Neuro: Awake, Alert and Oriented
--- NOTE | 2024-12-03 10:37 | W.PN.CARDCBS ---
Addendum entered and electronically signed by Luis Kirkland DO 12/03/24 12:34:
I saw and examined the patient.
The Child Development Assistant's note was reviewed and I agree with the note.
Comment:
Plan:
Amiodarone reduce to 200 mg daily
Cont Eliquis
Cont Toprol
Rates are improved.
He appears euvolemic, cont oral lasix.
Cont seroma tx and wound vac as per surgery
Outpt follow up with EP to discuss consideration for PVI and ICD
Outpt follow up arranged
Stable cv status
Please recall if needed
Original Note:
Today's Communication / Plan
-
-discharge planning
-f/u with EP in outpt setting to discuss managment of afib with ablation and also possible ICD tx for cardiomyopathy
Impression / Plan
-
Primary Rabbet Operator: Dr. Clements
PREADMIT DATA:
Patient with history of cardioembolic occlusion of left common femoral artery 06/2023 presented back to [facility] last month due to right iliac artery occlusion status post thromboembolectomy 10/29/2024. During that time was also noted to
be in persistent rapid A-fib initially discovered 07/2023 with history of noncompliance with medications. Also with known low EF suspected tachycardia mediated status post cath 05/2024 with nonobstructive CAD.
He presented back to the ER due to generalized malaise and was noted to have a suspected seroma of his right groin. He was also found to be in decompensated heart failure with reduced ejection fraction and have atrial fibrillation with rapid
ventricular rates.
Assessment:
Presentation with malaise
R groin drainage, suspected seroma
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
Persistent atrial fibrillation, first discovered July 2023
Chronic OAC with eliquis
Chronic HFrEF
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
NSVT
Hyperthyroidism
Noncompliance
Depression
History of ETOH and tobacco abuse
Obesity
ECHO 04/04/2024: EF 10 to 15%, severe global hypokinesis, mild MR, trace TR, PAP 30 to 33 mmHg
Cardiac catheterization 05/22/2024: Nonobstructive coronary disease with normal to mildly elevated right and left-sided filling pressures with normal cardiac output
Echocardiogram 10/30/2024: Severely dilated left ventricle, severely reduced LV systolic function, global hypokinesis with ejection fraction of 5-10%, moderate to severe eccentric TR with PA pressure of 30-35 mmHg, small pericardial effusion.
Assessment and plan
HFrEF possibly tachycardia mediated related to atrial fibrillation
Continue amiodarone loading, on Amio 200 mg bid
Increased beta-renee to better obtain rate control, increase Toprol-XL from 50 mg twice daily to 75 mg twice daily and heart rate control has improved
Likely euvolemic, continue current dose of Lasix 40 mg p.o. twice daily. Wt down 14 lbs over course of admission. Wt today 274 lbs
Atrial fibrillation, persistent atrial fibrillation first diagnosed in 2022. Rates are now rapid
Continue amiodarone loading (Amio was started during prior admission 11/01/2024), remains on 200 mg bid
Given nausea , consider reducing dose to 200 mg daily. He has been on Amiodarone for a month now.
Increased beta-renee to better obtain rate control, increase Toprol-XL from 50 mg twice daily to 75 mg twice daily on 12/01/24 and heart rate has improved
Telemetry personally reviewed: afib 80s-90s
Maintain Eliquis 5 mg twice daily for atrial fibrillation related thromboembolic risk reduction
Patient has had previous discussion regarding possibility of EP study ablation targeting atrial fibrillation also consideration for ICD given his cardiomyopathy
Plans were for outpatient ablation / consideration for ICD discussion planned for 12/19/24 (will likely be some delay in scheduling procedure date given ongoing need for right groin wound VAC to treat his seroma).
History of medical noncompliance with lack of insurance playing a significant role, working on medical assistance.
Left SFA seroma
Being followed by vascular surgery and wound VAC, had dressing change today 12/03/2024 by vascular surgery team
pt requesting to go to SNF for continued wound care. He lives alone and does not feel he can manage the wound alone
total time 45 min
Progress Note - Rabbet Operator
Subjective
Date of Service: December 03, 2024
sore from dressing change earlier today, when moves in certain positions can get SOB for soreness
no palps, lightheadedness
a little nausea after meds
Objective
Labs:
12/03/24 03:26
12/03/24 03:26
Labs
Hgb 16.9 g/dL (13.0-18.0) 12/03/24 03:26
Hct 52.0 % (39.0-52.0) 12/03/24 03:26
Plt Count 277 10^3/uL (130-400) 12/03/24 03:26
PT 17.5 Sec (11.4-14.6) H 11/29/24 16:05
INR 1.39 11/29/24 16:05
APTT 32.0 Sec (23.4-35.0) 11/29/24 16:05
Sodium 139 mmol/L (135-145) 12/03/24 03:26
Potassium 4.1 mmol/L (3.5-5.1) 12/03/24 03:26
BUN 19 mg/dl (9-20) 12/03/24 03:26
Creatinine 1.1 mg/dL (0.7-1.3) 12/03/24 03:26
Glucose 114 mg/dl (70-99) H 12/03/24 03:26
Vital Signs and I&O:
Vital Signs
Temp Pulse Resp BP Pulse Ox
97.5 F 89 18 105/69 99
12/03/24 07:06 12/03/24 08:00 12/03/24 07:06 12/03/24 07:08 12/03/24 07:06
Vital Signs
Temp Pulse Resp BP Pulse Ox
97.5 F 89 18 105/69 99
12/03/24 07:06 12/03/24 08:00 12/03/24 07:06 12/03/24 07:08 12/03/24 07:06
Intake & Output
12/01/24 12/02/24 12/03/24 12/04/24
06:59 06:59 06:59 06:59
Intake Total 1080 / 1080 1200 / 1200 1690 / 1690
Output Total 2600 / 2600 1425 / 1425 1600 / 1600
Balance -1520 / -1520 -225 / -225 90 / 90
Physical Exam
Physical Exam
GEN: No distress, awake, Ox3
HEENT: supple, anicteric, mmm
LUNGS: CTA, no wheezes/rales
CV: irreg, irreg 1/6 syst LSB
ABD: soft, BS+, NT/ND
EXT: No edema
NEURO: Gross non-focal
SKIN: No rash
[2024-12-03] MEDS: ROXICODONE 5 MG PO (12:18)
--- NOTE | 2024-12-03 13:36 | W.PN.UPDATE ---
Update Note
Progress Note Update
Wound VAC to right groin replaced by this provider, evidence of good granulation tissue and serous fluid, no signs of infection. Wound measurements are 7 cm length x 3.5 cm diameter x 4 cm width. [facility] wound VAC paperwork filled out and signed, case
management and wound care following. Follow-up placed in discharge instructions. We will sign off please call with questions or concerns.
--- NOTE | 2024-12-03 14:42 | WOUNDNOTE ---
WOC RN note: Faxed signed MA 97 for and dough mixer consult to Edith Velazquez from [employer] around 12:15pm. They faxed albumin lab to Edith Velazquez as requested by Angelica Davis from [employer].
--- NOTE | 2024-12-03 15:00 | PTCARENOTE ---
Wound vac placed to right groin wound at 1340. Pt with no c/o.
--- NOTE | 2024-12-03 16:31 | CM ---
pt set up with [facility], will get wound vac prior to dc. need REPLACED BY [facility] to approve wound vac- hospital faxed proff that the Medical assist applic was in progress. awaiting finial approval from the wound vac to dispense. once approved pt is set for dc. cm to
follow up with rep and WOC in am.
[2024-12-03 19:18] LABS: Phosphatidylserine Ab, IgA 2 APS (0-19); Phosphatidylserine Ab, IgG 5 GPS (0-15); Phosphatidylserine Ab, IgM 5 MPS (0-21)
--- NOTE | 2024-12-03 20:46 | PTCARENOTE ---
received patient at the change of shift. AAOx3. resting in the chair. Afib on tele 70s-80s. R groin wound vac intact. maintained per order. serosanguineous drainage in canister. patient expresses disappointment regarding wound vac and going home.
patient is worried he will not be able take care of it. provided reassurance. answered all questions. educated patient to inform RN with any changes. call marshall within reach.
[2024-12-04] VITALS (9 sets, daily range): BP systolic 91–120; BP diastolic 55–109; PULSE 90; BMI 37.2
[2024-12-04 04:59] LABS: Hematocrit 53.3 % (39.0-52.0); Hemoglobin 16.9 g/dL (13.0-18.0); Mean Corp Hgb Conc. 31.7 g/dL (33.0-37.0); Mean Corpuscular Hgb 31.4 pg (27.0-31.0); Mean Corpuscular Volume 98.9 fL (80.0-94.0); Mean Platelet Volume 9.8 fL (7.4-10.4); Platelet Count 288 10^3/uL (130-400); Red Blood Cell Count 5.39 10^6/uL (4.70-6.10); Red Cell Dist. Width 16.4 % (11.5-14.5); White Blood Cell Count 8.1 10^3/uL (4.8-10.8)
[2024-12-04 05:23] LABS: Blood Urea Nitrogen 19 mg/dl (9-20); Calcium 8.7 mg/dl (8.4-10.2); Carbon Dioxide 29 mmol/L (22-30); Chloride 100 mmol/L (98-107); Creatine Phosphokinase 22 U/L (55-170); Estimated Creatinine Clearance 97 ml/min; Glucose 91 mg/dl (70-99); Potassium 4.1 mmol/L (3.5-5.1); Sodium 140 mmol/L (135-145); eGFR > 60.00
[2024-12-04] MEDS: FARXIGA 10 MG PO (07:37)
[2024-12-04] MEDS: LASIX 40 MG PO ×2 (07:37→16:10)
[2024-12-04] MEDS: PACERONE 200 MG PO (07:37)
[2024-12-04] MEDS: ENTRESTO 24 MG/26 MG 1 TAB PO ×2 (07:38→20:02)
[2024-12-04] MEDS: TOPROL XL 75 MG PO ×2 (07:38→20:02)
[2024-12-04] MEDS: NICODERM TRANSDERMAL 14 MG TRANSDERM (07:38)
[2024-12-04] MEDS: KCL 40 MEQ PO (07:38)
[2024-12-04] MEDS: ELIQUIS 5 MG PO ×2 (07:39→19:56)
[2024-12-04] MEDS: TAPAZOLE 10 MG PO (07:51)
--- NOTE | 2024-12-04 08:06 | W.PN.HOSP.TC ---
Addendum entered and electronically signed by Bonnie Garcia MD 12/04/24 15:05:
I saw and evaluated the patient. I reviewed the resident�s note and agree with findings and plan as documented in the resident�s note.
A/P:
# Wound Dehiscence, s/p R Iliac Thromboembolectomy (11/06)
superficial wound culture from ED with pseudomonas and E. coli
s/p OR washout with wound vac 11/29/24
cultures from OR 11/29 grew Enterococcus, E. coli, Pseudomonas
ID CS
Eliquis restarted
apprec wound care/vacular
wound vac changed Tuesday
# Acute on chronic HFrEF
last echo from 10/30 showed severe LV dilation, severely reduced LVEF w/EF of 5-10% and Stage II diastolic dysfunction
IV lasix 40 mg BID as tolerated then converted back to home dose when stable
continue with home GDMT metoprolol succinate, jardiance, entresto
apprec cards
# Episode of lethargy and apnea in PACU, strong possibility of sleep apnea, resolved
cont O2
will need outpt sleep study
# hypokalemia, repleted
# Permanent Afib with RVR
ECG on admission showed Afib w/RVR
cont amio, Eliquis
apprec cards
# Hyperthyroidism, asymptomatic at this time.
Will continue on Methimazole
DVT PPx - on Eliquis
Code - Full Code
Original Note:
Today's Communication/Plan
-
D/c home with wound vac and VN orders.
Assessment / Plan
Assessment / Plan
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
thrombectomy who presented with fatigue/weakness.
#Episode of lethargy and apnea following surgery (resolved)
- Patient briefly lethargic with weak pulses and intermittent apnea in PACU following surgery. Symptoms have since resolved. Doing well, pending discharge.
#Wound Dehiscence following R Iliac Thromboembolectomy (11/06)
#S/p R groin washout of seroma w/ Wound VAC placement
- SIRS positive on admission (tachy, tachypneic, possible infection). Had dose of abx in ED. Intraop cultures NGTD. Pending placement to SNF which can accommodate wound vac. Wound VAC ordered, will be dsicharged home today with VN services for wound
VAC changes.
#Apneic Episodes
- Several episodes of apnea observed overnight. Possible Sleep Apnea given patient's history, STOP BANG score >4
- will continue to observe saturations, strong suggestion for OP follow up for sleep testing
#Acute Exacerbation of HFrEF (resolved)
- last echo from 10/30 shows severe LV dilation, severely reduced LVSF w/ EF of 5-10% and Stage II diastolic dysfunction. ProBNP on admission was 4060, on last admission was 9160. CXR negative for acute cardiopulmonary process.
- C/w PO Lasix 40 BID. Continue with home GDMT metoprolol succinate, Farxiga, Entresto.
#Hypokalemia - C/w KCL 40meq for K replenishment. Will monitor and replete as necessary.
#Afib with RVR - ECG on admission showed Afib w/ RVR. Resume Eliquis. now on Amiodarone 200 qd per cards. Metoprolol XR 5mg BID per cards. Appreciate recs.
#Hyperthyroid - asymptomatic at this time. Will continue on Methimazole.
#Current Tobacco Use - Nicotine patch 14mg, can increase if not working
Diet - HF Diet, <2g sodium
DVT PPx - resume Eliquis
Code - Full Code
Anticipated Discharge: Today
Subjective/Interval History
-
No acute complaints this morning.
Objective Data
-
Labs:
Laboratory Results
12/04/24
03:56
WBC 8.1
Hgb 16.9
Hct 53.3 H
Plt Count 288
Sodium 140
Potassium 4.1
Chloride 100
Carbon Dioxide 29
BUN 19
Creatinine 1.1
Glucose 91
Calcium 8.7
Vital Signs:
Vital Signs
Temp Pulse Resp BP Pulse Ox
97.6 F 81 16 112/90 95
12/04/24 03:48 12/04/24 03:49 12/04/24 03:48 12/04/24 03:49 12/04/24 03:48
I&O
12/03/24 12/04/24 12/05/24
06:59 06:59 06:59
Intake Total 1690 / 1690 400 / 400
Output Total 1600 / 1600 1775 / 1775
Balance 90 / 90 -1375 / -1375
Review of Systems
-
History Source: Patient
All other systems: Reviewed and negative
Constitutional: Reports No Symptoms
EENT: Reports No Symptoms Reported
Respiratory: Reports No Symptoms
Cardiac: Reports No Symptoms
Abdomen/GI: Reports No Symptoms
Breast: Reports N/A
Genitourinary: Reports No Symptoms
Musculoskeletal: Reports No Symptoms
Skin: Reports No Symptoms
Neuro: Reports No Symptoms
Hematologic / Lymphatic: Reports No Symptoms
Physical Exam
-
General: Well Developed, Well Nourished, No Apparent Distress and Comfortable; Negative Respiratory Distress, Fever or Chills
HEENT: Normocephalic, Atraumatic, Moist Mucous Membranes, Anicteric, Young Conjunctivae, PERRLA, Nose Appears Normal and Ears Appear Normal
Respiratory: Clear to Auscultation; Negative Wheezes, Rales or Rhonchi
Cardiac: Regular Rhythm and S1/S2; Negative Murmur
Breast: N/A
GI: Soft, Nontender and Normal Bowel Sounds
Genito-urinary: Deferred by me
Musculoskeletal: No Clubbing, No Cyanosis, No Edema and Normal Gait & Station
Neuro: AO x 3 and No Motor Deficits
Psych: Calm
--- NOTE | 2024-12-04 09:45 | WOUNDNOTE ---
WON RN NOTE: Patient approved for home vac, nurse Alice and CM aware. Teaching done with patient regarding home vac unit, how to change canister with return demonstration. Switched tubing to [employer] machine and reviewed basics with patient. Having
an air leak from R groin crease vac reading 75mmhg, before switching over. Piece of Edy seal placed in area of groin crease followed by skin prep and multiple Tegaderm to seal. Able to get suction to 100mmhg, suction intact and functioning without
alarming. Confirmed vac setting is 125mmhg, ANGELA Saab made aware of the above. Approval given by ANGELA Saab that vac can be at 100mmhg if unable to get to 125mmhg. Attempted several times and suction remains at 100mmhg with good seal. Patient for
next vac change tomorrow. He will have VN for wound vac changes CM confirmed. Will print up proof of delivery for patient to sign. Patient aware to take home vac supplies upon discharge later today.
--- NOTE | 2024-12-04 12:13 | WOUNDNOTE ---
MERLY RN NOTE ADDENDUM: Patient signed proof of delivery form and faxed to /[facility]. Vac unit reading 125mmhg now. Teaching wound vac pamphlet given to patient and reviewed. Hospital vac placed in soiled utility rm, updated express site. Answered all
questions, patient is good for discharge.
--- NOTE | 2024-12-04 15:46 | CON.ID ---
Consultation
-
Date/Time Consultation Requested: December 04, 2024 1510
Date/Time Consultation Performed: December 04, 2024 1545
Requesting Provider: Dr. David Nielson
Performing Provider: Dr. Sharon Molina
Reason for Consultation: Wound dehiscence with polymicrobial organisms
Chief Complaint / Past History
Chief Complaint
Weakness
History of Present Illness
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
October 29, 2024 who presented to the ER on November 27 complaining of feeling dizzy, malaise, and unwell. In the ER, patient noted to have wound dehiscence on the right groin. There was serous drainage which was swabbed and culture grew
Pseudomonas plus E. coli. He was taken to the OR on November 29 and found to have seroma in right groin with superficial dehiscence status post washout of the seroma, artery was not exposed. Wound VAC placed and he was supposed to be discharged
today which was canceled when OR culture returned with Pseudomonas, E. coli, Enterococcus, and Peptostreptococcus. Patient denies fevers or chills. He is feeling better. He is currently not on any antibiotic.
Past History
Additional Past Medical History:
Atrial fibrillation
Heart failure with reduced EF
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
Recent right iliac artery occlusion status post thromboembolectomy October 29, 2024
Hyperthyroidism
Depression
Tobacco use disorder
Appendectomy
Allergy History:
No Known Allergies Allergy (Verified 11/27/24 11:19)
Medications Reviewed: Yes
Current Antibiotics:
s/p Zosyn x 1 dose in ED
Social History
Tobacco: Smoker
Alcohol: Former
Drug: None
Family History
Family History: Not Pertinent
Review of Systems
Review of Systems
General: Negative Fever or Chills
HEENT: Negative Sinus Problems, Headache or Pharyngitis
Cardiovascular: Negative Chest Pain or Dyspnea
Respiratory: Negative Dyspnea or Cough
Gasteroenterology: Negative Nausea, Vomiting or Diarrhea
Skin / Hair / Nails: Negative Rash
All systems: All other systems were reviewed and were negative
Vital Signs
Temp Pulse Resp BP Pulse Ox
97.7 F 84 20 118/57 99
12/04/24 15:15 12/04/24 08:00 12/04/24 15:15 12/04/24 07:48 12/04/24 15:15
Physical Exam
Physical Exam
Constitutional: No Acute Distress and Comfortable
Eyes: No Conjunctival Hemorrhage and Sclera Anicteric
Cardiovascular: Irregular Rate and S1/S2
Pulmonary: Clear
Gastrointestinal: Soft, Non Tender, Non Distended and Normal Bowel Sounds
Genito-Urinary: Negative CVA Tenderness
Extremities: Negative Edema
Wound: Other (Right groin wound vac in place)
Neurological: AO x 3
Lab / Diagnostic Study Results
12/04/24 03:56
12/04/24 03:56
Abs Immat Gran (auto) 0.0 10^3/uL (0-0.05) 12/02/24 02:34
Absolute Neuts (auto) 5.4 10^3/uL (1.4-6.5) 12/02/24 02:34
Absolute Lymphs (auto) 1.8 10^3/uL (1.2-3.4) 12/02/24 02:34
Absolute Monos (auto) 0.7 10^3/uL (0.1-0.6) H 12/02/24 02:34
Absolute Basos (auto) 0.1 10^3/uL (0-0.2) 12/02/24 02:34
Immature Gran % 0.4 % (0-0.5) 12/02/24 02:34
Neutrophils % 66.1 % (42.2-75.2) 12/02/24 02:34
Lymphocytes % 21.6 % (20.5-51.1) 12/02/24 02:34
Monocytes % 8.5 % (1.7-9.3) 12/02/24 02:34
Eosinophils % 1.9 % (0-6) 12/02/24 02:34
Basophils % 1.5 % (0-2) 12/02/24 02:34
PT 17.5 Sec (11.4-14.6) H 11/29/24 16:05
INR 1.39 11/29/24 16:05
Microbiology Results
Micro:
11/29/24 14:32 Anaerobic Culture - Final
Groin - Right Peptostrep. asaccharolyticus
11/29/24 14:32 Wound Culture - Preliminary
Groin - Right Enterococcus species
Escherichia coli
Pseudomonas aeruginosa
Gram Stain - Preliminary
11/27/24 21:31 Wound Culture - Final
Groin - Right Pseudomonas aeruginosa
Escherichia coli
Gram Stain - Final
11/27/24 21:23 MRSA Screen - Final
Nose No Methicillin Resistant Staphylococcus aureus isolated.
11/27/24 CT a/p : Patent right common iliac artery in this patient with apparent recent right iliac thrombectomy. Small abnormal focal fluid collection with thickened periphery and surrounding stranding within the anterior soft tissues of the right
groin without blood flow within. Most likely differential diagnostic possibility would be a seroma. Hematoma or infected collection less likely. No findings on this study to suggest pseudoaneurysm.
11/27/24 CXR: : No acute pulmonary process identified radiographically. Unchanged cardiomegaly.
Assessment / Plan
# Postop Right groin superficial wound dehiscence and infected seroma
- Recent right iliac artery occlusion s/p thromboembolectomy 10/29/2024.
- 11/29/24 Washout right groin with evacuation/debridement of seromatous collection and fibrinous exudate, wound vac application. No pus. Artery was not exposed.
- OR cx: Pseudomonas, E. coli, Enterococcus, Peptostreptococcus
- Recommend Cipro 500mg po bid and Augmentin 875mg po bid x 10-14d
Cipro + amiodarone increase risk of prolonged QTc.
Most recent QTc 437. Follow QTc tomorrow after 2nd dose of cipro.
[2024-12-04] MEDS: CIPRO 500 MG PO (16:58)
--- NOTE | 2024-12-04 18:25 | PTCARENOTE ---
Pt received this am with no c/o. Wound vac intact to right groin. Home vac applied by wound nurse and instructed pt on care.
--- NOTE | 2024-12-04 18:33 | PTCARENOTE ---
Pt received this am oob in the chair. Room air sat 95%. Denies any pain or sob. 24 hour urine started at 0730.
[2024-12-04] MEDS: AUGMENTIN 875 MG/125 MG 1 TABLET PO (19:55)
--- NOTE | 2024-12-04 20:58 | PTCARENOTE ---
Patient received at change of shift resting comfortably in the chair. Patient offers no complaints at this time. Oxygen saturation 98% on room air. 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 Patient's own wound vac is intact and functioning
appropriately. Plan of care discussed with patient. Call marshall within reach. Care ongoing.
[2024-12-05] VITALS (10 sets, daily range): BP systolic 82–101; BP diastolic 46–72; PULSE 85; O2SAT 97; BMI 37.0
--- NOTE | 2024-12-05 02:08 | DOWNTIME ---
There was a [employer] Client Financial Services Sales Representative Downtime on 12/05/2024 from 0100 to 12/05/2023 at 0205 . Downtime documentation of patient's care, including medication administrations, has been reconciled in the electronic record per guidelines. Refer to the
patient's paper chart under the miscellaneous tab to see printed paper medication records and downtime forms.
[2024-12-05] MEDS: CIPRO 500 MG PO ×2 (05:03→16:24)
[2024-12-05] MEDS: NICODERM TRANSDERMAL 14 MG TRANSDERM (09:16)
[2024-12-05] MEDS: AUGMENTIN 875 MG/125 MG 1 TABLET PO (09:17)
[2024-12-05] MEDS: PACERONE 200 MG PO (09:18)
[2024-12-05] MEDS: ELIQUIS 5 MG PO (09:18)
[2024-12-05] MEDS: FARXIGA 10 MG PO (09:18)
[2024-12-05] MEDS: TAPAZOLE 10 MG PO (09:22)
--- NOTE | 2024-12-05 10:30 | WOUNDNOTE ---
WON RN NOTE: R groin wound vac dressing changed today, base of wound with granulation tissue. Pain upon removal mainly due to pubic hair pulling states patient. Shaved pubic hair near where dressing lays, using electric razor. Sealed groin crease
with piece of Edy seal and Tegaderm. Patient has home vac unit still in use, changed canister for moderate drainage. Reviewed with patient again how to change canister if becomes full, states he understands. Confirmed with Dr. Molina that patient
expected to be discharged later today. Supplies at bedside to take upon discharge.
[2024-12-05 10:35] LABS: % Basophils 1.3 % (0-2); % Eosinophils 1.7 % (0-6); % Immature Granulocytes 0.2 % (0-0.5); % Lymphocytes 19.9 % (20.5-51.1); % Monocytes 9.8 % (1.7-9.3); % Neutrophils 67.1 % (42.2-75.2); Absolute Basophils 0.1 10^3/uL (0-0.2); Absolute Eosinophils 0.2 10^3/uL (0-0.7); Absolute Lymphocytes 1.8 10^3/uL (1.2-3.4); Absolute Monocytes 0.9 10^3/uL (0.1-0.6); Absolute Neutrophils 6.1 10^3/uL (1.4-6.5); Hematocrit 50.5 % (39.0-52.0); Hemoglobin 16.1 g/dL (13.0-18.0); Mean Corp Hgb Conc. 31.9 g/dL (33.0-37.0); Mean Corpuscular Hgb 31.2 pg (27.0-31.0); Mean Corpuscular Volume 97.9 fL (80.0-94.0); Mean Platelet Volume 9.4 fL (7.4-10.4); Nucleated Red Blood Cells % 0 % (-); Platelet Count 294 10^3/uL (130-400); Red Blood Cell Count 5.16 10^6/uL (4.70-6.10); Red Cell Dist. Width 15.9 % (11.5-14.5)
[2024-12-05] MEDS: TOPROL XL 75 MG PO (11:12)
[2024-12-05] MEDS: LASIX 40 MG PO ×2 (11:13→16:24)
[2024-12-05] MEDS: ENTRESTO 24 MG/26 MG 1 TAB PO (11:13)
[2024-12-05 12:57] LABS: ALT (SGPT) 13 U/L (0-50); AST (SGOT) 25 U/L (17-59); Albumin 3.4 g/dl (3.5-5.0); Alkaline Phosphatase 121 U/L (38-126); Blood Urea Nitrogen 21 mg/dl (9-20); Calcium 8.9 mg/dl (8.4-10.2); Carbon Dioxide 25 mmol/L (22-30); Chloride 102 mmol/L (98-107); Estimated Creatinine Clearance 97 ml/min; Glucose 93 mg/dl (70-99); Potassium 4.4 mmol/L (3.5-5.1); Sodium 139 mmol/L (135-145); Total Bilirubin 1.8 mg/dl (0.2-1.3); Total Protein 6.1 g/dl (6.3-8.2); eGFR > 60.00
--- NOTE | 2024-12-05 12:57 | W.PN.ID1 ---
Date of Service
Date of Service: December 05, 2024
Today's Communication
Can dc home on Cipro 500mg po bid and Augmentin 875mg po bid through 12/14/24
Assessment / Plan
# Postop Right groin superficial wound dehiscence and infected seroma
- Recent right iliac artery occlusion s/p thromboembolectomy 10/29/2024.
- 11/29/24 Washout right groin with evacuation/debridement of seromatous collection and fibrinous exudate, wound vac application. No pus. Artery was not exposed.
- OR cx: Pseudomonas, E. coli, Enterococcus, Peptostreptococcus
- Cipro + amiodarone increase risk of prolonged QTc.
QTc (on cipro) 484.
-Can dc home on Cipro 500mg po bid and Augmentin 875mg po bid through 12/14/24
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
Atrial fibrillation
Heart failure with reduced EF
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
Recent right iliac artery occlusion status post thromboembolectomy October 29, 2024
Hyperthyroidism
Depression
Tobacco use disorder
Appendectomy
Chief Complaint
-: Cellulitis
Subjective / Review of Systems
Feels well. Tolerating the abx's.
Vital Signs / Physical Exam
Vital Signs
Vital Signs
Temp Pulse Resp BP Pulse Ox
97.1 F 90 18 96/58 94
12/05/24 11:09 12/05/24 12:00 12/05/24 11:09 12/05/24 11:12 12/05/24 11:09
Physical Exam
Constitutional: No Acute Distress and Comfortable
Cardiovascular: Regular Rate and S1/S2
Pulmonary: Clear
Gastrointestinal: Soft, Non Tender and Non Distended
Wound: Other (Reviewed photo right groin wound clean granulating tissue)
Neurological: AO x 3
Objective Data
Lab Data
Lab Results
12/05/24 10:20
12/05/24 10:20
PT 17.5 Sec (11.4-14.6) H 11/29/24 16:05
INR 1.39 11/29/24 16:05
APTT 32.0 Sec (23.4-35.0) 11/29/24 16:05
Estimated Creat Clear 97 ml/min 12/05/24 10:20
Total Bilirubin 1.8 mg/dl (0.2-1.3) H 12/05/24 10:20
AST 25 U/L (17-59) 12/05/24 10:20
ALT 13 U/L (0-50) 12/05/24 10:20
Alkaline Phosphatase 121 U/L (38-126) 12/05/24 10:20
Most recent labs reviewed.
Micro Results:
11/29/24 14:32 Wound Culture - Final
Groin - Right Enterococcus faecalis
Escherichia coli
Pseudomonas aeruginosa
Gram Stain - Final
11/29/24 14:32 Anaerobic Culture - Final
Groin - Right Peptostrep. asaccharolyticus
11/27/24 21:31 Wound Culture - Final
Groin - Right Pseudomonas aeruginosa
Escherichia coli
Gram Stain - Final
11/27/24 21:23 MRSA Screen - Final
Nose No Methicillin Resistant Staphylococcus aureus isolated.
11/27/24 CT a/p : Patent right common iliac artery in this patient with apparent recent right iliac thrombectomy. Small abnormal focal fluid collection with thickened periphery and surrounding stranding within the anterior soft tissues of the right
groin without blood flow within. Most likely differential diagnostic possibility would be a seroma. Hematoma or infected collection less likely. No findings on this study to suggest pseudoaneurysm.
11/27/24 CXR: : No acute pulmonary process identified radiographically. Unchanged cardiomegaly.
Care Review
Plan reviewed with: Physician (Dr. Jina Garcia)
[2024-12-05] MEDS: KCL 40 MEQ PO (13:23)
--- NOTE | 2024-12-05 13:32 | W.PN.HOSP.TC ---
Addendum entered and electronically signed by Bonnie Garcia MD 12/05/24 14:20:
total DC time 40 min
Addendum entered and electronically signed by Bonnie Garcia MD 12/05/24 14:12:
I saw and evaluated the patient. I reviewed the resident�s note and agree with findings and plan as documented in the resident�s note.
A/P:
# Wound Dehiscence, s/p R Iliac Thromboembolectomy (11/06)
superficial wound culture from ED with pseudomonas, E. coli
s/p OR washout with wound vac 11/29/24 by vascular
cultures from OR 11/29 grew Enterococcus, E. coli, Pseudomonas
Appreciate ID input, treat with Cipro and amoxicillin x 14 days
Eliquis restarted
cont wound vac
apprec wound care/vacular
# Acute on chronic HFrEF
last echo from 10/30 showed severe LV dilation, severely reduced LVEF w/EF of 5-10% and Stage II diastolic dysfunction
Cont lasix 40 mg BID
continue with home GDMT metoprolol succinate, jardiance, entresto
apprec cards
# Episode of lethargy and apnea in PACU, strong possibility of sleep apnea, resolved
cont O2
will need outpt sleep study
# hypokalemia, repleted
# Permanent Afib with RVR
ECG on admission showed Afib w/RVR
cont amio, Eliquis
apprec cards
# Hyperthyroidism, asymptomatic at this time.
Will continue on Methimazole
DVT PPx - on Eliquis
Code - Full Code
Original Note:
Today's Communication/Plan
-
D/c home on PO Augmentin and Cipro x14d. Home VN for wound VAC changes.
Assessment / Plan
Assessment / Plan
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
thrombectomy who presented with fatigue/weakness.
#Episode of lethargy and apnea following surgery (resolved) - Patient briefly lethargic with weak pulses and intermittent apnea in PACU following surgery. Symptoms have since resolved. Doing well, pending discharge.
#Wound Dehiscence following R Iliac Thromboembolectomy (11/06)
#S/p R groin washout of seroma w/ Wound VAC placement
- SIRS positive on admission (tachy, tachypneic, possible infection). Had dose of abx in ED. Intraop cultures NGTD. Pending placement to SNF which can accommodate wound vac. Discharge held yesterday as wound cultures came back + for multiple
organisms, seen by ID, sending home on Cipro & Augmentin through 12/14 per ID. QTc 484.
#Apneic Episodes
- Several episodes of apnea observed overnight. Possible Sleep Apnea given patient's history, STOP BANG score >4
- will continue to observe saturations, strong suggestion for OP follow up for sleep testing
#Acute Exacerbation of HFrEF (resolved)
- last echo from 10/30 shows severe LV dilation, severely reduced LVSF w/ EF of 5-10% and Stage II diastolic dysfunction. ProBNP on admission was 4060, on last admission was 9160. CXR negative for acute cardiopulmonary process.
- C/w PO Lasix 40 BID. Continue with home GDMT metoprolol succinate, Farxiga, Entresto.
#Hypokalemia - C/w KCL 40meq for K replenishment. Will monitor and replete as necessary.
#Afib with RVR - ECG on admission showed Afib w/ RVR. Resume Eliquis. now on Amiodarone 200 qd per cards. Metoprolol XR 75mg BID per cards. Appreciate recs.
#Hyperthyroid - asymptomatic at this time. Will continue on Methimazole.
#Current Tobacco Use - Nicotine patch 14mg, can increase if not working
Diet - HF Diet, <2g sodium
DVT PPx - resume Eliquis
Code - Full Code
Anticipated Discharge: Today
Subjective/Interval History
-
No acute complaints this morning. Feeling well and ready to go home.
Objective Data
-
Labs:
Laboratory Results
12/05/24
10:20
WBC 9.0
Hgb 16.1
Hct 50.5
Plt Count 294
Sodium 139
Potassium 4.4
Chloride 102
Carbon Dioxide 25
BUN 21 H
Creatinine 1.1
Glucose 93
Calcium 8.9
Total Bilirubin 1.8 H
AST 25
ALT 13
Alkaline Phosphatase 121
Vital Signs:
Vital Signs
Temp Pulse Resp BP Pulse Ox
97.1 F 90 18 96/58 94
12/05/24 11:09 12/05/24 12:00 12/05/24 11:09 12/05/24 11:12 12/05/24 11:09
I&O
12/04/24 12/05/24 12/06/24
06:59 06:59 06:59
Intake Total 400 / 400 480 / 480 300 / 300
Output Total 1775 / 1775
Balance -1375 / -1375 480 / 480 300 / 300
Review of Systems
-
History Source: Patient
All other systems: Reviewed and negative
Constitutional: Reports No Symptoms
EENT: Reports No Symptoms Reported
Respiratory: Reports No Symptoms
Cardiac: Reports No Symptoms
Abdomen/GI: Reports No Symptoms
Breast: Reports N/A
Genitourinary: Reports No Symptoms
Musculoskeletal: Reports No Symptoms
Skin: Reports No Symptoms
Neuro: Reports No Symptoms
Hematologic / Lymphatic: Reports No Symptoms
Physical Exam
-
General: Well Developed, Well Nourished, No Apparent Distress, Comfortable and Obese; Negative Pain
HEENT: Normocephalic, Atraumatic, Moist Mucous Membranes, Anicteric, Manuel Garcia Ii Conjunctivae, PERRLA, Nose Appears Normal and Ears Appear Normal
Respiratory: Clear to Auscultation; Negative Wheezes, Rales or Rhonchi
Cardiac: S1/S2 and Irregular Rhythm; Negative Murmur, Rub or Tachycardic
Breast: N/A
GI: Soft, Nontender, Nondistended and Normal Bowel Sounds
Genito-urinary: Deferred by me
Musculoskeletal: No Clubbing, No Cyanosis, No Edema and Other (Wound VAC in R groin. No surrounding erythema, tenderness. Clean dressing. )
Neuro: Awake, Alert, Oriented and Nonfocal/Grossly Intact
Psych: Calm
--- NOTE | 2024-12-05 15:17 | CM ---
CM following for DC planning needs.
Patient anticipating DC to home today. Has transport home.
We reviewed DC plan for home w/ VN thru [facility]. Referral sent, accepted. I updated them on DC date.
Pt. expecting visit from [facility] by Tuesday.
We reviewed that patient has no medical insurance and will be paying storm for prescriptions.
I have printed out [employer] coupons for all of his prescribed medications. I have also notified of less cost medications thru [facility]. Pt. is aware of this.
Plan is for home w/ VN.
--- NOTE | 2024-12-05 18:32 | PTCARENOTE ---
Pt seen by Drs. Nielson and Jesse and Mely Cox NP. Wound vac dressing changed. Pt denies any discomfort but c/o fatigue. Telemetry and IV device removed. Discharge instructions reviewed with pt regarding wound care, VN follow up, CHF
guidelines, medications and their possible side effects, reproting cares and concerns and follow up appt's which have been arranged and that he also needs to make. Very good understanding verbalized. Pt escorted out with all dressing supplies and
discharge to home.
--- NOTE | 2024-12-06 11:34 | W.HF.CON ---
Heart Failure
- LV Function
Left ventricular function study result: LV Ejection fraction </= 35% (ECHO 10/30/24)
Ejection Fraction Percentage: 5-10
- ARNI
Patient already on ARNI: Yes
- ACEI/ARB
Patient already on ACEI/ARB: No
Heart Failure ACEI/ARB Not Indicated: Patient ordered/on ARNI
- Beta Sallie
Patient already on Evidence Based Beta Sallie: Yes
- Mineralocorticord Receptor Antagonist
Patient already on MRA: No
Heart Failure MRA Contraindication: Hypotension
- SGLT-2 Inhibitor
Patient already on SGLT-2 Inhibitor: Yes
- Afib Anticoagulation
Patient already on Anticoagulation for Afib: Yes
- NYHA CHF Classification
NYHA CHF Classification Level: Class III - Symptoms w/ min exertion, interferes w/ nml daily activity
- ACC/AHA Stage
ACC/AHA Stage: Stage C: Symptomatic Heart Failure
== END 2024-12-05 17:30 | disposition home health service (06) | DRG 907 ==
LOC: IVU 20:01
PROVIDERS: Emergency Medicine; Nurse Practitioner; Surgery Vascular Surgery; ADMITTING PHYSICIAN Internal Medicine; ATTENDING PHYSICIAN Internal Medicine; CONSULT PHYSICIAN Internal Medicine Cardiovascular Disease; CONSULT PHYSICIAN Internal Medicine Critical Care Medicine; CONSULT PHYSICIAN Internal Medicine Infectious Disease; EMERGENCY PHYSICIAN Emergency Medicine; FAMILY PHYSICIAN Family Medicine; OTHER PHYSICIAN Surgery Vascular Surgery
PROC: 0JDL0ZZ Extraction of Right Upper Leg Subcutaneous Tissue and Fascia, Open Approach (ICD-10-PCS; 2024-11-29)
DX: T81.31XA Disruption of external operation (surgical) wound, not elsewhere classified, initial encounter (principal); A41.9 Sepsis, unspecified organism; I50.23 Acute on chronic systolic (congestive) heart failure; I48.21 Permanent atrial fibrillation; I42.8 Other cardiomyopathies; I47.20 Ventricular tachycardia, unspecified; J98.11 Atelectasis; F17.210 Nicotine dependence, cigarettes, uncomplicated; T81.30XA Disruption of wound, unspecified, initial encounter; I11.0 Hypertensive heart disease with heart failure; E87.6 Hypokalemia; E05.90 Thyrotoxicosis, unspecified without thyrotoxic crisis or storm; Z79.01 Long term (current) use of anticoagulants; B95.2 Enterococcus as the cause of diseases classified elsewhere; E66.9 Obesity, unspecified; I25.10 Atherosclerotic heart disease of native coronary artery without angina pectoris; I70.202 Unspecified atherosclerosis of native arteries of extremities, left leg; I95.81 Postprocedural hypotension; J43.2 Centrilobular emphysema; K57.30 Diverticulosis of large intestine without perforation or abscess without bleeding; M25.78 Osteophyte, vertebrae; Z71.6 Tobacco abuse counseling; Z90.49 Acquired absence of other specified parts of digestive tract; Z91.148 Patient's other noncompliance with medication regimen for other reason; Z91.199 Patient's noncompliance with other medical treatment and regimen due to unspecified reason
CPT/HCPCS: 88304; 10140; 71046; 74174; 80048; 80053; 82550; 82962; 83735; 83880; 84100; 84484; 85025; 85027; 85610; 85730; 86146; 86147; 86148; 87070; 87071; 87075; 87076; 87077; 87147; 87186; 87205; 93005; 96360; 97116; 97162; 97166; 97530; 99285; Q9967

== ENCOUNTER → 2025-01-04 07:53 | Day surgery (SDC) | payer OTHER, SELFPAY | LOC: CATH 07:53 | PROVIDERS: ATTENDING PHYSICIAN Internal Medicine Cardiovascular Disease | DX: I48.21 Permanent atrial fibrillation (principal); I08.1 Rheumatic disorders of both mitral and tricuspid valves; I50.23 Acute on chronic systolic (congestive) heart failure; F17.210 Nicotine dependence, cigarettes, uncomplicated; Z79.01 Long term (current) use of anticoagulants; Z79.84 Long term (current) use of oral hypoglycemic drugs | CPT/HCPCS: 93312; 93320; 93325 ==

== ENCOUNTER 2025-01-27 05:15 | Inpatient (IN) | payer OTHER, SELFPAY ==
[2025-01-27] VITALS (27 sets, daily range): BP systolic 122–191; BP diastolic 88–142; PULSE 2–127; BMI 37.8
[2025-01-27 01:03] LABS: ALT (SGPT) 12 U/L (0-50); AST (SGOT) 18 U/L (17-59); Albumin 3.4 g/dl (3.5-5.0); Alkaline Phosphatase 113 U/L (38-126); Blood Urea Nitrogen 25 mg/dl (9-20); Carbon Dioxide 19 mmol/L (22-30); Chloride 104 mmol/L (98-107); Estimated Creatinine Clearance 108 ml/min; Glucose 160 mg/dl (70-99); Lipase 56 U/L (23-300); Potassium 2.9 mmol/L (3.5-5.1); Sodium 138 mmol/L (135-145); Total Bilirubin 2.1 mg/dl (0.2-1.3); Total Protein 5.8 g/dl (6.3-8.2); eGFR > 60.00
[2025-01-27 01:09] LABS: NT-proBNP 4580 pg/ml; Troponin I 0.034 ng/ml
[2025-01-27] MEDS: ZOFRAN 4 MG IV (01:17)
[2025-01-27] MEDS: NSS 1000 IV (01:17)
[2025-01-27] MEDS: DILAUDID 1 MG IV (01:18)
--- NOTE | 2025-01-27 01:22 | ED.GENMED ---
History of Present Illness
<Denver Trujillo PA-C - Last Filed: 01/31/25 08:10>
General
Chief Complaint: Abdominal Pain
Source: patient
Time Seen by Provider: 01/27/25 01:05
History of Present Illness
History of Present Illness:
59-year-old male with history of A-fib on Eliquis, CHF, DVT presents complaining of sudden onset mid abdominal pain. He notes associated lightheadedness but denies chest pain shortness of breath or leg pain. Pain does not radiate to his back. No
fevers. No other complaints at this time
Past History
<Denver Trujillo PA-C - Last Filed: 01/31/25 08:10>
Past History
ED Past Medical History: Arrthythmia (Atrial fibrillation on Eliquis) and CHF
ED Past Surgical History: Other (LLE critical limb ischemia needing revascularization surgery 06/2023)
Patient has exhibited threatening behavior?: No
PSI?: No
Social History
Tobacco: Former smoker
Alcohol: None
Personal: Single
Living: alone
Phy Exam
<LORNA Rowe Last Filed: 01/31/25 08:10>
Physical Exam
Physical Exam:
General: Uncomfortable appearing male no acute respiratory distress
HEENT: Normocephalic atraumatic
Heart: Tachycardic and irregular
Lungs: Clear no wheeze
Abdomen soft slightly distended and tender over the epigastric and mid abdomen. No guarding or rebound
Extremities: No cyanosis or edema
Skin warm no rash
Vascular: Dopplerable pulses both dorsal feet
Course
<LORNA Rowe Last Filed: 01/31/25 08:10>
Orders/Labs/Results
Orders:
Orders
01/27/25 00:22
Electrocardiogram (*1) Urgent
Reason for Study: Other
Other Reason for Exam: Respiratory Distress
Cardiac Monitoring- Treatment ONCE
EKG- Treatment ONCE
IV Insert/Care/Rem.- Treatment PRN
O2 Therapy [RESP] Urgent
Titrate/Wean O2 to maintain O2 sat greater than (%): 93
Special Instructions: TO MAINTAIN CONTINUOUS O2 SATS >/= 93%
Pulse Ox/cont/shift [RESP] Urgent
Quantity: 1
Special Instructions: continuous pulse ox
01/27/25 00:31
Complete Blood Count/With Diff Urgent
Comprehensive Metabolic Panel Urgent
Lipase Urgent
NT-proBNP Urgent
Troponin I Urgent
01/27/25 01:10
CT Angio Abd/Pelvis w/wo IV [CT Abd/pelvis Angio W/wo Iv] Urgent
Comment:
Reason For Exam: abdominal pain
0.9% Sodium Chloride 1000 ml [Nss] 1,000 ml IV BOLUS
HYDROmorphone [Dilaudid] 1 mg IV NOW STA
01/27/25 01:13
Ondansetron Injectable [Zofran] 4 mg .ROUTE .STK-MED ONE
01/27/25 01:14
Ondansetron Injectable [Zofran] 4 mg IV NOW STA
01/27/25 02:14
HYDROmorphone [Dilaudid] 0.5 mg IV NOW STA
01/27/25 02:42
Potassium Chloride [KCl] 40 meq 0.9% Sodium Chloride 250 ml [Nss] 250 ml IV NOW
01/27/25 02:59
Lactic Acid Urgent
01/27/25 04:31
Furosemide [Lasix] 40 mg IV NOW STA
01/27/25 04:41
Admit/Transfer Patient As Directed
Co-Sign Provider:
Level of Care: Inpatient admission
Assign to:: ICU
Physician / Group: hospitalist
Diagnosis: sma thrombosis
Reason for Hospitalization: sma thrombosis, chf exacerbation
Expected length of stay greater than two midnights?: Yes
ELOS- Estimated Length of Stay in days: 2
I certify the patient meets the requirements for IP care: Yes
PRN Pain Medication Management As Directed
May give lesser potent ordered pain med per pt: Yes
preference::
Protocol:: Medication orders for pain may be administered in a
manner that supports deferring to patient preference
when the pt is:
- Requesting an ordered lesser potent pain medication.
Least to most potent pain medications are defined
as: acetaminophen < NSAID < tramadol < opioids
(morphine, oxycodone, hydromorphone).
- Requesting a lesser dose of the same medication IF
ORDERED.
- Requesting a less intrusive route of administration
if both routes are prescribed by the provider (PO <
IV).
01/27/25 04:42
Code Status As Directed
Resuscitation Status: Full Code
01/27/25 05:00
Flush (0.9% Sodium Chloride) [Flush (Nss)] See Dose Instructions IV PER PROTOCOL
01/27/25 05:49
Complete Blood Count/No Diff Urgent
Comment: Obtain baseline before beginning heparin infusion if not already collected
PTT Urgent
Prothrombin Time Urgent
01/27/25 Breakfast
NPO
Allow oral meds: Yes
Allow clear liquids: Sips of Clears
01/27/25 09:30
Furosemide [Lasix] 40 mg IV BID AT 0800,1600
HYDROmorphone [Dilaudid] 0.5 mg IV Q4HPRN PRN
Heparin 96059 Units/250 ml 25,000 units in 250 ml IV PER PROTOCOL
Weight to be used for heparin protocol in kilograms (kg):: 126.2
Protocol:: DVT/PE
PTT Goal Range to be used:: PTT 73 to 111 seconds
Order type:: Initial
INITIAL Infusion Dose (UNITS/KG/hr) & then follow protocol:: 18 units/kg/hr
Infusion Dose in UNITS/hr & then follow protocol (UNITS/hr):: 2,000
INFUSION RATE in mL/hr & then follow protocol (mL/hr):: 20
For DVT/PE algorithm, re-bolus for low PTT?: No
PTT less than or equal to 64 seconds:: No Re-bolus. Increase by 500 units/hr (+ 5mL/hr)
PTT 64.1 to 72.9 seconds:: No Re-bolus. Increase by 300 units/hr (+ 3mL/hr)
PTT 73 to 111 seconds:: Target Range. No change in rate.
PTT 111.1 to 130.9 seconds:: Decrease rate by 300 units/hr (- 3 mL/hr)
PTT 131 to 199.9 seconds:: HOLD for 1 hr. Then decrease by 400 units/hr (- 4mL/hr)
PTT greater than or equal to 200 seconds:: HOLD for 2 hrs & Notify Provider. Then decrease by 500 units/hr
(- 5mL/hr)
Lab follow-up:: Each change, PTT q6h until 2 consecutive are therapeutic. Then
PTT daily.
Metoprolol Xl [Toprol Xl] 75 mg PO BID
Pantoprazole [Protonix IV] 40 mg IV DAILY
01/27/25 09:30
CARDIOLOGY CONSULT Routine
Consulting Provider: Cezar Wagner
Was physician already notified: No
Reason for consult: afib rvr, sma thrombus, chf exacerbation
Consult Notification Routine
Specialty to Notify: Cardiology
Date consulting provider notified: 01/27/25
Time consulting provider notified: 08:30
Notified:: Provider
Consult Notification Routine
Specialty to Notify: Voice Over Artist
Date consulting provider notified: 01/27/25
Time consulting provider notified: 08:30
Notified:: Provider
Voice Over Artist Consult Routine
Consulting Provider: Ishmael Christie
Was physician already notified: No
Reason for consult: sma thrombus, chf exacerbation, hypoxic resp distress
Vascular Surgery Consult Routine
Consulting Provider: Elvis Wilkerson III
Was physician already notified: Yes
Reason for consult: sma thrombus
Heparin Protocol- PTT Orders As Directed
PTT per Heparin protocol: -Obtain CBC and baseline PTT - if not already collected.
-Obtain PTT 6 hours from start of infusion. Then, every 6 hours until 2 consecutive
PTT's are therapeutic. Then, PTT Daily.
-With each rate change, obtain PTT every 6 hours until 2 consecutive PTT's are
therapeutic. Then, PTT Daily.
Bladder Scan As Directed
Follow Bladder Retention/Intermittent Cath Algorithm?: Yes
Frequency: Per Retention Algorithm
Comment: as per intermittent urinary catheter algorithm
Bladder Scan As Directed
Follow Bladder Retention/Intermittent Cath Algorithm?: Yes
PRN if no void in __ hours: 6
Frequency: Per Retention Algorithm
If Bladder Scan Result >: 400
then:: Straight cath
Intake/ Output As Directed
Frequency: Per unit guidelines
Notify MD As Directed
Notify physician if: PTT is greater than or equal to 200.
Sequential Compression Device [Pneumatic Compression Sleeves] As Directed
Type: Knee high
Straight Cath As Directed
Frequency: Per Retention Algorithm
Additional Instructions: as per intermittent urinary catheter algorithm
Straight Cath As Directed
Frequency: Per Retention Algorithm
Additional Instructions: straight cath as needed per acute urinary retention algorithm for 24 hrs
Additional Instructions: for bladder scan greater than 400 mL
Vital Signs As Directed
Frequency: Per unit guidelines
Pulse Ox/cont/shift [RESP] Routine
Quantity: 1
Special Instructions: check O2 Sat Q8 hours and at each change in oxygen liter flow and FiO2
DX Deep Vein Thrombosis Video Routine
01/27/25 10:00
Methimazole [Tapazole] 10 mg PO DAILY
Abnormal Lab Results
01/27/25 01/27/25
00:31 02:59
RBC 4.61 L 10^6/uL
(4.70-6.10)
MCV 95.9 H fL
(80.0-94.0)
MCH 31.9 H pg
(27.0-31.0)
RDW 16.1 H %
(11.5-14.5)
MPV 10.6 H fL
(7.4-10.4)
Abs Immat Gran (auto) 0.1 H 10^3/uL
(0-0.05)
Immature Gran % 1.2 H %
(0-0.5)
Lymphocytes % 18.5 L %
(20.5-51.1)
Potassium 2.9 L mmol/L
(3.5-5.1)
Carbon Dioxide 19 L mmol/L
(22-30)
BUN 25 H mg/dl
(9-20)
Glucose 160 H mg/dl
(70-99)
Lactic Acid 5.2 H* mmol/L
(0.7-2.0)
Total Bilirubin 2.1 H mg/dl
(0.2-1.3)
Total Protein 5.8 L g/dl
(6.3-8.2)
Albumin 3.4 L g/dl
(3.5-5.0)
01/27/25 00:31
01/27/25 00:31
Vital Signs
Initial and Last Documented VS:
Initial Vital Signs
Temp Pulse Resp Pulse Ox
98.2 F 135 12 97
01/27/25 00:24 01/27/25 00:24 01/27/25 00:24 01/27/25 00:24
Last Documented Vital Signs
Temp Pulse Resp BP Pulse Ox
98.7 F 113 22 115/61 98
01/31/25 03:30 01/31/25 08:01 01/31/25 08:01 01/31/25 08:01 01/31/25 08:01
<Madelin Lizama, DO - Last Filed: 01/28/25 06:47>
Orders/Labs/Results
Orders:
Orders
01/27/25 00:22
Electrocardiogram (*1) Urgent
Reason for Study: Other
Other Reason for Exam: Respiratory Distress
Cardiac Monitoring- Treatment ONCE
EKG- Treatment ONCE
IV Insert/Care/Rem.- Treatment PRN
O2 Therapy [RESP] Urgent
Titrate/Wean O2 to maintain O2 sat greater than (%): 93
Special Instructions: TO MAINTAIN CONTINUOUS O2 SATS >/= 93%
Pulse Ox/cont/shift [RESP] Urgent
Quantity: 1
Special Instructions: continuous pulse ox
01/27/25 00:31
Complete Blood Count/With Diff Urgent
Comprehensive Metabolic Panel Urgent
Lipase Urgent
NT-proBNP Urgent
Troponin I Urgent
01/27/25 01:10
CT Angio Abd/Pelvis w/wo IV [CT Abd/pelvis Angio W/wo Iv] Urgent
Comment:
Reason For Exam: abdominal pain
0.9% Sodium Chloride 1000 ml [Nss] 1,000 ml IV BOLUS
HYDROmorphone [Dilaudid] 1 mg IV NOW STA
01/27/25 01:13
Ondansetron Injectable [Zofran] 4 mg .ROUTE .STK-MED ONE
01/27/25 01:14
Ondansetron Injectable [Zofran] 4 mg IV NOW STA
01/27/25 02:14
HYDROmorphone [Dilaudid] 0.5 mg IV NOW STA
01/27/25 02:42
Potassium Chloride [KCl] 40 meq 0.9% Sodium Chloride 250 ml [Nss] 250 ml IV NOW
01/27/25 02:59
Lactic Acid Urgent
01/27/25 04:31
Furosemide [Lasix] 40 mg IV NOW STA
01/27/25 04:41
Admit/Transfer Patient As Directed
Co-Sign Provider:
Level of Care: Inpatient admission
Assign to:: ICU
Physician / Group: hospitalist
Diagnosis: sma thrombosis
Reason for Hospitalization: sma thrombosis, chf exacerbation
Expected length of stay greater than two midnights?: Yes
ELOS- Estimated Length of Stay in days: 2
I certify the patient meets the requirements for IP care: Yes
PRN Pain Medication Management As Directed
May give lesser potent ordered pain med per pt: Yes
preference::
Protocol:: Medication orders for pain may be administered in a
manner that supports deferring to patient preference
when the pt is:
- Requesting an ordered lesser potent pain medication.
Least to most potent pain medications are defined
as: acetaminophen < NSAID < tramadol < opioids
(morphine, oxycodone, hydromorphone).
- Requesting a lesser dose of the same medication IF
ORDERED.
- Requesting a less intrusive route of administration
if both routes are prescribed by the provider (PO <
IV).
01/27/25 04:42
Code Status As Directed
Resuscitation Status: Full Code
01/27/25 05:00
Flush (0.9% Sodium Chloride) [Flush (Nss)] See Dose Instructions IV PER PROTOCOL
01/27/25 05:49
Complete Blood Count/No Diff Urgent
Comment: Obtain baseline before beginning heparin infusion if not already collected
PTT Urgent
Prothrombin Time Urgent
01/27/25 Breakfast
NPO
Allow oral meds: Yes
Allow clear liquids: Sips of Clears
01/27/25 09:30
Furosemide [Lasix] 40 mg IV BID AT 0800,1600
HYDROmorphone [Dilaudid] 0.5 mg IV Q4HPRN PRN
Heparin 77313 Units/250 ml 25,000 units in 250 ml IV PER PROTOCOL
Weight to be used for heparin protocol in kilograms (kg):: 126.2
Protocol:: DVT/PE
PTT Goal Range to be used:: PTT 73 to 111 seconds
Order type:: Initial
INITIAL Infusion Dose (UNITS/KG/hr) & then follow protocol:: 18 units/kg/hr
Infusion Dose in UNITS/hr & then follow protocol (UNITS/hr):: 2,000
INFUSION RATE in mL/hr & then follow protocol (mL/hr):: 20
For DVT/PE algorithm, re-bolus for low PTT?: No
PTT less than or equal to 64 seconds:: No Re-bolus. Increase by 500 units/hr (+ 5mL/hr)
PTT 64.1 to 72.9 seconds:: No Re-bolus. Increase by 300 units/hr (+ 3mL/hr)
PTT 73 to 111 seconds:: Target Range. No change in rate.
PTT 111.1 to 130.9 seconds:: Decrease rate by 300 units/hr (- 3 mL/hr)
PTT 131 to 199.9 seconds:: HOLD for 1 hr. Then decrease by 400 units/hr (- 4mL/hr)
PTT greater than or equal to 200 seconds:: HOLD for 2 hrs & Notify Provider. Then decrease by 500 units/hr
(- 5mL/hr)
Lab follow-up:: Each change, PTT q6h until 2 consecutive are therapeutic. Then
PTT daily.
Metoprolol Xl [Toprol Xl] 75 mg PO BID
Pantoprazole [Protonix IV] 40 mg IV DAILY
01/27/25 09:30
CARDIOLOGY CONSULT Routine
Consulting Provider: Cezar Wagner
Was physician already notified: No
Reason for consult: afib rvr, sma thrombus, chf exacerbation
Consult Notification Routine
Specialty to Notify: Cardiology
Date consulting provider notified: 01/27/25
Time consulting provider notified: 08:30
Notified:: Provider
Consult Notification Routine
Specialty to Notify: Voice Over Artist
Date consulting provider notified: 01/27/25
Time consulting provider notified: 08:30
Notified:: Provider
Voice Over Artist Consult Routine
Consulting Provider: Ishmael Christie
Was physician already notified: No
Reason for consult: sma thrombus, chf exacerbation, hypoxic resp distress
Vascular Surgery Consult Routine
Consulting Provider: Elvis Wilkerson III
Was physician already notified: Yes
Reason for consult: sma thrombus
Heparin Protocol- PTT Orders As Directed
PTT per Heparin protocol: -Obtain CBC and baseline PTT - if not already collected.
-Obtain PTT 6 hours from start of infusion. Then, every 6 hours until 2 consecutive
PTT's are therapeutic. Then, PTT Daily.
-With each rate change, obtain PTT every 6 hours until 2 consecutive PTT's are
therapeutic. Then, PTT Daily.
Bladder Scan As Directed
Follow Bladder Retention/Intermittent Cath Algorithm?: Yes
Frequency: Per Retention Algorithm
Comment: as per intermittent urinary catheter algorithm
Bladder Scan As Directed
Follow Bladder Retention/Intermittent Cath Algorithm?: Yes
PRN if no void in __ hours: 6
Frequency: Per Retention Algorithm
If Bladder Scan Result >: 400
then:: Straight cath
Intake/ Output As Directed
Frequency: Per unit guidelines
Notify MD As Directed
Notify physician if: PTT is greater than or equal to 200.
Sequential Compression Device [Pneumatic Compression Sleeves] As Directed
Type: Knee high
Straight Cath As Directed
Frequency: Per Retention Algorithm
Additional Instructions: as per intermittent urinary catheter algorithm
Straight Cath As Directed
Frequency: Per Retention Algorithm
Additional Instructions: straight cath as needed per acute urinary retention algorithm for 24 hrs
Additional Instructions: for bladder scan greater than 400 mL
Vital Signs As Directed
Frequency: Per unit guidelines
Pulse Ox/cont/shift [RESP] Routine
Quantity: 1
Special Instructions: check O2 Sat Q8 hours and at each change in oxygen liter flow and FiO2
DX Deep Vein Thrombosis Video Routine
01/27/25 10:00
Methimazole [Tapazole] 10 mg PO DAILY
Abnormal Lab Results
01/27/25 01/27/25
00:31 02:59
RBC 4.61 L 10^6/uL
(4.70-6.10)
MCV 95.9 H fL
(80.0-94.0)
MCH 31.9 H pg
(27.0-31.0)
RDW 16.1 H %
(11.5-14.5)
MPV 10.6 H fL
(7.4-10.4)
Abs Immat Gran (auto) 0.1 H 10^3/uL
(0-0.05)
Immature Gran % 1.2 H %
(0-0.5)
Lymphocytes % 18.5 L %
(20.5-51.1)
Potassium 2.9 L mmol/L
(3.5-5.1)
Carbon Dioxide 19 L mmol/L
(22-30)
BUN 25 H mg/dl
(9-20)
Glucose 160 H mg/dl
(70-99)
Lactic Acid 5.2 H* mmol/L
(0.7-2.0)
Total Bilirubin 2.1 H mg/dl
(0.2-1.3)
Total Protein 5.8 L g/dl
(6.3-8.2)
Albumin 3.4 L g/dl
(3.5-5.0)
03/16/25 00:31
01/27/25 00:31
Vital Signs
Initial and Last Documented VS:
Initial Vital Signs
Temp Pulse Resp Pulse Ox
98.2 F 135 12 97
01/27/25 00:24 01/27/25 00:24 01/27/25 00:24 01/27/25 00:24
Last Documented Vital Signs
Temp Pulse Resp BP Pulse Ox
98.7 F 113 22 115/61 98
01/31/25 03:30 01/31/25 08:01 01/31/25 08:01 01/31/25 08:01 01/31/25 08:01
<Denver Trujillo PA-C - Last Filed: 01/31/25 08:10>
MDM/Problems Addressed
Differential Diagnosis Includes:
Abdominal pain. Consider gastritis versus bowel obstruction versus dissection versus aneurysm
Patient has history of A-fib. He is in rapid A-fib initially. Pain medicine ordered and did bring his heart rate down some.
Labs reviewed. Normal renal functions. CT angio of the abdomen pending
<LORNA Rowe Last Filed: 01/31/25 08:10>
*Critical Care Note
Total Time (30-74mins, 75-104mins- exclusive of procedures): Not Applicable
<LORNA Rowe Last Filed: 01/31/25 08:10>
Update Note
Update Note:
Labs reviewed, Lactic 5.2. K is 2.9. IV potassium ordered. CT angio official read pending but will admit for abdominal pain concern for possible ischemic bowel. Discussed with emergency room attending
ED Attending Note
<LORNA Rowe Last Filed: 01/31/25 08:10>
-
Portions of this chart may have been created with voice recognition software.� Occasional wrong word or��sound alike� substitutions may have occurred due to the inherent limitations of voice recognition software.
<Madelin Lizama, DO - Last Filed: 01/28/25 06:47>
ED Attending Note
Patient seen and examined by attending physician: Yes
I performed a history and physical exam of patient and discussed management with resident, I reviewed resident's note and agree with documented findings and plan of care.: Yes
ED Attending Note:
59-year-old gentleman with complex past medical history including CHF, cardiomyopathy with EF of 5 to 10%, chronic A-fib with RVR, DVT. Presents with moderate to severe epigastric to supraumbilical abdominal pain. No history of similar episodes in
the past.
Significant concern for ischemic bowel, other consideration is aortic dissection, bowel obstruction, pancreatitis, cholecystitis, gastritis.
Admits to mild to moderate improvement in pain after 1 IV dose of Dilaudid, will give additional pain medication. Will avoid further IV fluids due to history of CHF and severely reduced EF.
Thus far hemodynamically stable.
Awaiting CTA of the abdomen and pelvis
04:15
CAT scan shows thrombus in the SMA. No definitive evidence of bowel ischemia, no portal venous gas but significant concern for development of such.
Case discussed with vascular surgery, Dr. Wilkerson who knows this patient well, will be in to evaluate at the bedside and plans to likely take to the OR.
Patient is currently much more comfortable but after several doses of IV Dilaudid is drowsy, increased tachypnea and now hypoxic.
Will transition nasal cannula oxygen to BiPAP.
BP remains stable.
Continues with A-fib with RVR with heart rate 130s.
If oxygenation does not improve with BiPAP we will plan to intubate.
Discharge Plan
Departure
Patient Disposition: Admit
Date of Disposition: 01/27/25
Time of Disposition: 03:55
Presentation/result/management discussed w/ accepting MD/DO: Hospitalist
Discharge Problem:
Abdominal pain, Acute hypokalemia
Interventions
Interventions:
*Risk Screen - Suicide Last Done: 01/27/25 00:24
*General Assessment Last Done: 01/27/25 00:24
*Neglect/Abuse Screening Last Done: 01/27/25 00:24
*ED- Fall Risk Assessment Last Done: 01/27/25 00:24
*ED COVID-19 Vaccine History Last Done: 01/27/25 15:19
*Nursing Disposition Last Done: 01/27/25 06:54
IW-Pak[facility]-Axkfhmrbmi Assessment Last Done: 01/27/25 00:39
Discharge Date and Time
Discharge Date/Time: 01/27/25 06:55
[2025-01-27 01:31] LABS: % Basophils 1.2 % (0-2); % Eosinophils 2.2 % (0-6); % Immature Granulocytes 1.2 % (0-0.5); % Lymphocytes 18.5 % (20.5-51.1); % Monocytes 7.9 % (1.7-9.3); Absolute Basophils 0.1 10^3/uL (0-0.2); Absolute Eosinophils 0.2 10^3/uL (0-0.7); Absolute Immature Granulocytes 0.1 10^3/uL (0-0.05); Absolute Lymphocytes 1.5 10^3/uL (1.2-3.4); Absolute Monocytes 0.6 10^3/uL (0.1-0.6); Absolute Neutrophils 5.5 10^3/uL (1.4-6.5); Hematocrit 44.2 % (39.0-52.0); Hemoglobin 14.7 g/dL (13.0-18.0); Mean Corp Hgb Conc. 33.3 g/dL (33.0-37.0); Mean Corpuscular Hgb 31.9 pg (27.0-31.0); Mean Corpuscular Volume 95.9 fL (80.0-94.0); Mean Platelet Volume 10.6 fL (7.4-10.4); Nucleated Red Blood Cells % 0 % (-); Platelet Count 262 10^3/uL (130-400); Red Blood Cell Count 4.61 10^6/uL (4.70-6.10); Red Cell Dist. Width 16.1 % (11.5-14.5)
[2025-01-27] MEDS: DILAUDID 0.5 MG IV (02:54)
[2025-01-27] MEDS: KCL 270 MEQ IV (03:35)
[2025-01-27 03:48] LABS: Lactic Acid 5.2 mmol/L (0.7-2.0)
--- NOTE | 2025-01-27 04:26 | HPS.HSE ---
Family Physician
-
Family Physician: Thomas Peñaloza MD
Chief Complaint
-
Abdominal pain
History of Present Illness
This is a 59-year-old with past medical history of severely dilated cardiomyopathy LVEF most recently about 5 to 10% with pulmonary artery systolic pressure from 30-35 and a small pericardial effusion, atrial fibrillation on anticoagulation but
noncompliant and complicated by a large left atrial appendage which was last noted on LUIS ENRIQUE in December 2024, patient also complicated by left lower extremity limb ischemia requiring thrombectomy in 2023 likely cardioembolic presents to the emergency
department with acute episode of abdominal pain.
Patient able to tell me that he was in usual state of health when he suddenly developed periumbilical abdominal pain without nausea or vomiting. He did notice 1 episode of diarrhea but did not look at it to see if it was bloody. He denies any
acute changes in medications. He denies any fevers or chills. By the time he arrived in the ED he was markedly tachycardic and hypoxic and was placed on 6 L of oxygen. He is not requiring BiPAP.
Patient known to have history of noncompliance with Eliquis. Compliance was emphasized and patient states that he has been compliant with the Eliquis.
Here in the emergency department he was afebrile, he was hypertensive to 160/100 and tachycardic to the 130s. ECG shows A-fib with rapid ventricular rate. Troponin was negative. BNP was elevated at 4500. CBC was unremarkable. Electrolytes
notable for a potassium of 2.9 but otherwise unremarkable. Lactic acid was elevated at 5.2. Lipase and LFTs were within the normal range. A CT of the abdomen and pelvis showed a thrombus in the SMA. Multiple branches of the SMA are thrombosed.
No acute cholecystitis. No pancreatitis. There is cardiomegaly with pulmonary interstitial edema and small pleural effusions.
Medical History
Past Medical History
Past Medical History: Reports Arrhythmia and Hyperthyroidism (New diagnosis, on Methimazole)
Past Surgical History: Reports Appendectomy
Additional Past Surgical History:
RLE Thrombectomy (2023), LLE Thrombectomy (2022)
Social History
Tobacco: Smoker (1-2 packs per day, >40 years)
Alcohol: Occasional
Drug: None
Personal: Single
Living: Alone
Family History
Family History: CAD and Hypertension
Allergies / Home Medications
Allergies reflects when Allergies were last updated in [employer].
Home Medications with original date entered in [employer]
Allergy/Medication List:
Allergies
Allergy/AdvReac Type Severity Reaction Status Date / Time
No Known Allergies Allergy Verified 01/27/25 00:21
Home Medications
methimazole 10 mg tablet 10 mg PO DAILY Thyroid 04/11/24
potassium chloride 20 mEq tablet,extended release 20 meq PO DAILY Electrolyte Repletion 05/22/24
apixaban 5 mg tablet (Eliquis) 5 mg PO BID Blood clot prevention/tx #60 tabs 11/06/24
empagliflozin 10 mg tablet (Jardiance) 10 mg PO DAILY Heart Failure #30 tabs 11/06/24
furosemide 40 mg tablet (Lasix) 40 mg PO BID Fluid Retention/Swelling #60 tabs 11/06/24
sacubitril 24 mg-valsartan 26 mg tablet (Entresto) 1 tab PO BID Heart Disease/Condition #60 tabs 11/06/24
amiodarone 200 mg tablet 200 mg PO DAILY Arrhythmia 30 days #30 tabs 12/03/24
metoprolol succinate 25 mg tablet,extended release 24 hr 75 mg (3 x 25 mg) PO BID Heart Failure 30 days #180 tabs 12/03/24
amoxicillin 875 mg-potassium clavulanate 125 mg tablet 1 tab PO Q12 Infection 10 days #20 tabs 12/05/24
ciprofloxacin HCl 500 mg tablet 500 mg PO Q12H Infection 10 days #20 tabs 12/05/24
Review of Systems
-
Unable to obtain full review of systems at this time due to: Acuity
Physical Exam
Vital Signs
Vital Signs
Temp Pulse Resp BP Pulse Ox
98.2 F 137 35 160/102 91
01/27/25 00:24 01/27/25 01:22 01/27/25 01:22 01/27/25 01:30 01/27/25 01:22
Physical Exam
General: Well Developed, Respiratory Distress and Pain
HEENT: NormoCephalic, Moist mucous membranes, Atraumatic, PERRLA and Oxygen
Respiratory: Crackles and Accessory Resp Muscle Use
Cardiac: S1/S2, Irregular Rhythm and Tachycardia
Breast: Deferred by me
GI: Soft, Normal Bowel Sounds and Distended
Rectal: Deferred by Provider
Genito-urinary: Deferred by me
Musculoskeletal: No Clubbing, No Cyanosis and No Edema
Skin: Warm
Neuro: AO x 3 and Nonfocal/grossly intact
Hematologic/Lymphatic: No Lymphadenopathy
Psych: Calm
Laboratory Results
-
01/27/25 00:31
01/27/25 00:31
Laboratory Results
Lactic Acid 5.2 mmol/L (0.7-2.0) H* 01/27/25 02:59
Total Bilirubin 2.1 mg/dl (0.2-1.3) H 01/27/25 00:31
AST 18 U/L (17-59) 01/27/25 00:31
ALT 12 U/L (0-50) 01/27/25 00:31
Alkaline Phosphatase 113 U/L (38-126) 01/27/25 00:31
Troponin I 0.034 ng/ml 01/27/25 00:31
Lipase 56 U/L (23-300) 01/27/25 00:31
Data Reviewed
-
CT Scan: Report Reviewed by me
Medical Tests (Nuc Med, Echo, EKG etc): Image Personally Visualized and interpreted
Lab Data: Labs Reviewed by me
Old Records: Reviewed
Impression/Plan
-
IMPRESSION:
59-year-old with dilated cardiomyopathy EF of 5 to 10%, atrial fibrillation with known left atrial appendage thrombus last seen December 2024 coming into the emergency department with severe periumbilical abdominal pain. History of non-compliance
with medications including eliquis. He has elevated lactic acid. No peritonitis. He has a history of likely cardioembolic ischemia to the limb. The CT scan shows thrombosis affecting multiple branches of the SMA. He is hypoxic and has pulmonary
edema on imaging.
PLAN:
1. SMA Thrombosis
- admit to icu
- d/w Vascular. Dr. Wilkerson coming in to evaluate and take patient to OR
- heparin s/p procedure
- pain control and antiemetics
2. Hypoxia - Pulmonary edema likely secondary to fluid bolus for elevated lactic acid
- bipap for now
- gave lasix 40mg IV x 1
- NPO for now
- continue lasix 40 iv bid
- likely intubation with procedure (full code)
3. AFIB RVR -
- heparin gtt
- diltiazem gtt
- amio gtt if rate remains uncontrolled
- AC with heparin gtt
- keep K, Mag > 4,2
- cardiology consultation
4. CHF
- holding entresto for now
- lasix as above
Code status - Full Code
[2025-01-27] MEDS: LASIX 40 MG IV (04:44)
--- NOTE | 2025-01-27 05:21 | CON.VAS ---
Medical History
-
Chief Complaint: Abd pain
History of Present Illness:
Acute onset abd pain last night
Severe abd pain currently
Reduced EF
Afib, anticoag
Prior LE thromboembolectomies for acute limb ischemia
Recent LUIS ENRIQUE showing large LA thrombus burden
CTA showing SMA occlusion
Past Medical History
Past Medical History: Arrhythmias
Past Surgical History: Other (LE thrombectomies bilat for ALI)
Allergies / Home Medications
Allergy/AdvReac Type Severity Reaction Status Date / Time
No Known Allergies Allergy Verified 01/27/25 00:21
�Medication �Instructions �Recorded �Confirmed �Type
methimazole 10 mg tablet 10 mg PO DAILY Thyroid 04/11/24 01/04/25 History
potassium chloride 20 mEq 20 meq PO DAILY Electrolyte 05/22/24 01/04/25 History
tablet,extended release Repletion
apixaban 5 mg tablet (Eliquis) 5 mg PO BID Blood clot 11/06/24 01/04/25 Rx
prevention/tx #60 tabs
empagliflozin 10 mg tablet 10 mg PO DAILY Heart Failure #30 11/06/24 01/04/25 Rx
(Jardiance) tabs
furosemide 40 mg tablet (Lasix) 40 mg PO BID Fluid 11/06/24 01/04/25 Rx
Retention/Swelling #60 tabs
sacubitril 24 mg-valsartan 26 mg 1 tab PO BID Heart 11/06/24 01/04/25 Rx
tablet (Entresto) Disease/Condition #60 tabs
amiodarone 200 mg tablet 200 mg PO DAILY Arrhythmia 30 days 12/03/24 01/04/25 Rx
#30 tabs
metoprolol succinate 25 mg 75 mg (3 x 25 mg) PO BID Heart 12/03/24 01/04/25 Rx
tablet,extended release 24 hr Failure 30 days #180 tabs
amoxicillin 875 mg-potassium 1 tab PO Q12 Infection 10 days #20 12/05/24 01/04/25 Rx
clavulanate 125 mg tablet tabs
ciprofloxacin HCl 500 mg tablet 500 mg PO Q12H Infection 10 days 12/05/24 01/04/25 Rx
#20 tabs
Physical Exam
Vital Signs
Temp Pulse Resp BP Pulse Ox
98.2 F 143 29 160/104 89
01/27/25 00:24 01/27/25 04:44 01/27/25 04:39 01/27/25 04:44 01/27/25 04:39
Lab Results
01/27/25 00:31
01/27/25 00:31
Troponin I 0.034 ng/ml 01/27/25 00:31
Bpl-P-Ymxqvyeaqvl Pept 4580 pg/ml 01/27/25 00:31
Physical Exam
HEENT: Normocephalic
GI: Tender
Neuro: AO x 3
Assessment / Plan
-
Acute mesenteric ischemia. SMA occlusion. OR for ex lap and SMA thrombectomy.
Discussed with patient and he agrees to proceed with surgery
Data Reviewed
-
CT Scan: Image Personally Visualized and interpreted, Discussed with Physician, Discussed with Patient and Discussed with Family
Medical Tests (Nuc Med, Echo etc): Report Reviewed by me
Labs: Labs Reviewed by me
[2025-01-27] MEDS: FLUSH (NSS) 1 FLUSH IV (05:58)
[2025-01-27] MEDS: LOPRESSOR 5 MG IV (05:59)
[2025-01-27 06:02] LABS: Hematocrit 50.8 % (39.0-52.0); Hemoglobin 16.7 g/dL (13.0-18.0); Mean Corp Hgb Conc. 32.9 g/dL (33.0-37.0); Mean Corpuscular Volume 97.3 fL (80.0-94.0); Platelet Count 271 10^3/uL (130-400); Red Blood Cell Count 5.22 10^6/uL (4.70-6.10); Red Cell Dist. Width 16.4 % (11.5-14.5); White Blood Cell Count 11.9 10^3/uL (4.8-10.8)
[2025-01-27 06:05] LABS: INR 1.27; PT 16.1 Sec (11.4-14.6)
[2025-01-27 06:30] LABS: APTT 24.4 Sec (23.4-35.0)
[2025-01-27 07:56] LABS: B.E. - POC -1.4 mmol/L; Glucose - POC 178 mg/dl (70-99); HCO3 - POC 26 mmol/L (21-28); Hematocrit - POC 51 % PCV (42-52); Hemodilution- POC No; Hemoglobin Calculated - POC 17.2; Ionized Calcium - POC 1.16 mmol/L (1.15-1.33); Lactate - POC 4.38 mmol/L (0.36-0.75); O2 Saturation %Calculated-POC 86.9 % (94-98); PCO2 - POC 52 mmHg (35-48); PO2 - POC 59 mmHg (83-108); Sodium - POC 143 mmol/L (136-145); Specimen Type - POC Arterial; pH - POC 7.31 (7.35-7.45)
[2025-01-27 08:06] LABS: ACT-LR - POC 308 Seconds (116-155)
--- NOTE | 2025-01-27 08:56 | OR.RPT ---
Operative Report
Operative Report
DATE OF OPERATION: 01/27/2025
SURGEON: Brian Wyatt MD
CO-SURGEON: Elvis Wilkerson MD
PREOPERATIVE DIAGNOSIS: SMA occlusion, acute mesenteric ischemia
POSTOPERATIVE DIAGNOSIS: SMA embolus, acute mesenteric ischemia
OPERATION: Exploratory laparotomy, remainder of surgery per Dr. Wilkerson of vascular
ANESTHESIA: General
ESTIMATED BLOOD LOSS: 0 mL for my portion
FINDINGS:
1. Patchy segmental ischemia scattered throughout length of small bowel without elizabeth evidence of necrosis; good dopplerable signals throughout the mesenteric arcade and visible peristalsis throughout entire length of small bowel
2. Colon from cecum to proximal rectum appeared well-perfused without evidence of ischemia or perforation
SPECIMENS:
1. None
DRAINS: None
COMPLICATIONS: Patient in septic shock on 3 pressors; ABThera wound VAC closure and transfer to ICU for aggressive resuscitation
INDICATIONS: The patient is a 59-year-old male with history of A-fib and prior embolectomies for critical limb ischemia presents with SMA embolus. I was consulted intraoperatively to evaluate the bowel for perfusion and possible resection. On my
arrival, the patient was intubated with a open midline incision with Omni retractor in place. Dr. Wilkerson had just reperfused the SMA and explained that the bowel appeared dusky prior to reperfusion. I reviewed the CT scan, which demonstrated clot
within the SMA, but no obvious bowel wall thickening, bowel dilation or free air to suggest perforation. I scrubbed into evaluate the bowel
PROCEDURE IN DETAIL: Dr. Wilkerson removed the vessel loops and exposed the SMA to reveal the SMA with a good pulse and excellent distal dopplerable signal. I ran the bowel from the ligament of Treitz to the ligament of Treves and checked the
mesenteric Dopplers throughout. There was no obvious gangrene or necrosis. There was scattered patchy ischemia throughout the length of the small bowel, but there was visible peristalsis noted along its entire length. The ischemia was more of a
dark pink/light purple and no perforation was noted. There were a handful of short segment (about 2 to 3 cm segments) areas where the bowel was a darker hue of purple, but there was still peristalsis and dopplerable signal in these areas. On
examination of the terminal ileum, there was some adhesions to the right lower quadrant, but these did not obscure my visualization of the bowel so these were left in place. I identified the cecum, which appeared pink. I ran the large bowel from
the cecum to the proximal rectum. There was fatty epiploica and fatty omentum throughout its length, but enough of the bowel wall was visible for assessment. The large bowel appeared pink and well-perfused throughout its length without concern for
perforation. I checked in with anesthesia, who explained that the patient was on epi, levo and vasopressin and the plan was to keep him intubated. Although there were a few questionable areas, the bowel perfusion seem to be improving even during
the time of my evaluation and there were no segments of elizabeth necrosis. Therefore, after discussion with Dr. Wilkerson, we felt the best route at this point would be to place an ABThera VAC and transfer him to the ICU for aggressive rewarming and
resuscitation and to reevaluate the bowel in 24 to 48 hours depending on his clinical course. Dr. Wilkerson closed the mesentery over the SMA. The Omni retractor was removed. The omentum was examined and was well-perfused. It was draped over the
entire small bowel. The inner layer of the ABThera was cut to size placed over the abdominal contents. The sponge was placed over the inner layer and secured in place with the adhesive layer. The VAC was attached and the abdomen was suctioned.
This concluded my portion of the surgery. Please refer to Dr. Wilkerson's dictation for the majority of the case.
All needle, sponge and instrument counts were reported as correct.
DICTATED BY: Brian Wyatt MD
--- NOTE | 2025-01-27 09:12 | W.IMMPOSTOP ---
Surgical Immed Post Op Note
-
Primary Surgeon: Rock
Assisting Surgeon: Edmundo
Pre-op Diagnosis: acute mesenteric ischemia
Post-op Diagnosis: acute mesenteric ischemia
Procedure Performed: Ex lap, SMA embolectomy
Anesthesia Type: General
Specimen / Cultures: SMA thrombus
Estimated Blood Loss: 50 cc
Complications: None
Operative Findings: SMA thrombus, palpable SMA pulse at concl of case with Dopp signals throughout mesentery
[id number]
--- NOTE | 2025-01-27 09:13 | OR.RPT ---
Operative Report
Operative Report
Date of Operation: 01/27/2025
Pre Op Diagnosis:
1. Acute mesenteric ischemia
2. Superior mesenteric artery occlusion
3. Heart failure
4. Atrial fibrillation with known left atrial thrombus
Post Op Diagnosis:
1. Acute mesenteric ischemia
2. Superior mesenteric artery occlusion
3. Heart failure
4. Atrial fibrillation with known left atrial thrombus
Procedure:
1. Exploratory laparotomy
2. Thromboembolectomy of superior mesenteric artery
3. Placement of AbThera VAC
Surgeon: Elvis Wilkerson III, MD
Co-surgeon: Brian Wyatt MD
Anesthesia: General
Complications: None
Estimated Blood Loss: 50 cc
History and Indications for Procedure: 59-year-old male with atrial fibrillation and heart failure along with known left atrial thrombus who presents with acute onset abdominal pain. Prior history includes bilateral lower extremity acute limb
ischemia from thromboembolic events. Preoperative CT angiogram demonstrated an occluded superior mesenteric artery consistent with an embolus. He was taken to the operating room for embolectomy
Procedure in Detail: Buster Velazquez was correctly identified and placed supine on the operating table. After adequate induction of anesthesia his abdomen and pelvis were prepped and draped in the usual sterile fashion. He received preoperative
antibiotics. A timeout procedure was performed with the nursing and anesthesia staff confirming the patient's identity as well as the nature and laterality of the procedure.
The midline periumbilical incision was made. Electrocautery was used on the subcutaneous tissue and midline fascia. The peritoneal cavity was entered sharply. The entire incision was opened. Retractors were placed. The transverse colon was pink
and healthy appearing. The stomach was pink and healthy appearing. Proper NG tube placement was confirmed. The small bowel was run from the ligament of Treitz to the terminal ileum. The proximal jejunum was pink and healthy appearing. The
remainder of the small bowel was diffusely dusky but no areas of perforation or full-thickness necrosis were identified. The right colon was inspected and was healthy appearing.
The transverse colon was retracted cephalad. The small bowel was retracted caudad and towards the patient's right. The superior mesenteric artery was then sharply exposed. Proximal and distal control was obtained with vessel loops. Systemic
heparin was administered and a therapeutic ACT was confirmed. There was no pulse in the exposed segment of SMA. Proximal to this there was a palpable pulse in the SMA. A transverse arteriotomy was made on the superior mesenteric artery. Thrombus
was removed under the arteriotomy with forceps. A #3 Wei balloon was passed proximally and returned thrombus. After the initial pass there was brisk pulsatile bleeding from the proximal SMA. I passed the Wei balloon 2 additional times but
no additional thrombus was returned. The proximal artery was then flushed with heparinized saline solution.
I then passed the #3 Wei balloon distally. On the initial pass I returned significant amounts of thrombus. All of the thrombus returned was sent to pathology. The Wei balloon was passed distally until I had 3 negative sequential passes.
At this point good backbleeding was established. I did pass on #2 Wei balloon distally as well but did not return any thrombus on 2 separate passes. The distal artery was flushed with heparinized saline solution. The artery was repaired with
3 interrupted 6-0 Prolene sutures. The proximal and distal vessel loops were released. Immediately there was a good pulse in the superior mesenteric artery proximal and distal to the suture line.
At this point the vessel loops were removed. The small bowel was once again inspected. There was gross improvement in the appearance of the small bowel after reperfusion of the superior mesenteric artery. Doppler signals were audible throughout
the small bowel mesentery from the ligament of Treitz to the terminal ileum. There were areas of patchy duskiness diffusely throughout the small bowel but no full-thickness necrosis or perforation was identified. I did have Dr. Brian Wyatt
evaluate the small bowel and colon as well which will be dictated separately. The patient was on several pressors and we made the decision to place an ABThera VAC dressing and return for a second look following a period of continued resuscitation.
The ABThera VAC dressing was cut to size and then placed appropriately. Adhesive dressings were applied and the dressing was connected to negative pressure.
The patient tolerated the procedure well and was taken to the intensive care unit intubated and in critical but stable condition.
Signed:
Elvis Wilkerson III, MD
[facility]
[phone] (cell)
--- NOTE | 2025-01-27 09:50 | W.PN.HOSP.TC ---
Today's Communication/Plan
-
follow labs/ABG
wean pressors to off
start zosyn
muñoz culture
candelaria
I/Os
IV heparin
await consultants input
Assessment / Plan
Assessment / Plan
pt is a 59 year old male
shock with metabolic/lactic acidosis--septic (from ischemia from SMA thrombus) vs cardiogenic (EF 5-10% with SMA thrombus)--apprec vascular--s/p OR 01/27/25--on pressors/IVF--would have goal SBP > 90 as opposed to using MBP given EF 5-10%)--consult
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
acute hypoxemic resp failure--intubated--keep for now--follow ABGs--hold diuretics given above shock physiology
hypokalemia--replete--check Mag
permanent AFIB with RVR - rate above 120s--cont cardizem drip, IV heparin drip--check K, mag--await cards
acute on chronic HFrEF (EF 5-10%)--holding lasix/entresto--cont IVF/pressors but would keep SBP >90
hyperthyroid--new diagnosis last admission?--on methimazole but would hold for now--consideration for checking TFTs but pt critically ill....
PAD--active smoker--MUST quit--had wound dehiscence and R iliac thromboembolectomy 11/06, OR washout 11/29/24
DVT proph--IV hepairn drip
Code status - Full Code
Total Critical Care Time 40 minutes. I was immediately available to the patient and staff. I personally examined, reviewed labs, diagnostic images/reports, interpretations, treatment plans, discussed patient care with other providers and family
or caregivers (if patient is unable to make decisions), entered orders as appropriate and documented the medical record.
Anticipated Discharge: > 48 hours
Subjective/Interval History
-
Date of Service: January 27, 2025
pt seen in ICU post op--intubated
Objective Data
-
Labs:
max temp for 24 hours
01/27/25
00:24
Temp 98.2 F
Laboratory Results
01/27/25 01/27/25 01/27/25
00:31 05:49 05:49
WBC 8.0 11.9 H
Hgb 14.7 16.7
Hct 44.2 50.8
Plt Count 262 271
PT Cancelled 16.1 H
INR Cancelled
APTT
HCO3
Sodium 138
Potassium 2.9 L
Chloride 104
Carbon Dioxide 19 L
BUN 25 H
Creatinine 1.0
Glucose 160 H
Calcium 9.0
Total Bilirubin 2.1 H
AST 18
ALT 12
Alkaline Phosphatase 113
01/27/25 01/27/25 01/27/25
05:49 05:49 09:15
WBC Pending
Hgb Pending
Hct Pending
Plt Count Pending
PT
INR 1.27
APTT Cancelled 24.4
HCO3
Sodium
Potassium
Chloride
Carbon Dioxide
BUN
Creatinine
Glucose
Calcium
Total Bilirubin
AST
ALT
Alkaline Phosphatase
01/27/25 01/27/25
09:45 09:47
WBC Pending
Hgb Pending
Hct Pending
Plt Count Pending
PT Pending
INR Pending
APTT
HCO3 Pending
Sodium Pending
Potassium Pending
Chloride Pending
Carbon Dioxide Pending
BUN Pending
Creatinine Pending
Glucose Pending
Calcium Pending
Total Bilirubin Pending
AST Pending
ALT Pending
Alkaline Phosphatase Pending
Vital Signs:
Vital Signs
Temp Pulse Resp BP Pulse Ox
98.2 F 120 32 163/97 91
01/27/25 00:24 01/27/25 06:30 01/27/25 06:30 01/27/25 06:30 01/27/25 06:30
I&O
01/26/25 01/27/25 01/28/25
06:59 06:59 06:59
Output Total 1200 / 1200
Balance -1200 / -1200
Review of Systems
-
Unable to obtain full review of systems at this time due to: Patient Intubation
Physical Exam
-
General: Well Developed, Well Nourished and Intubated
HEENT: Normocephalic and Atraumatic
Respiratory: Clear to Auscultation; Negative Wheezes, Rales, Rhonchi or Crackles
Cardiac: Irregular Rhythm and Tachycardic
GI: Soft, Nontender, Nondistended and Other (wound vac on large abdominal wound/incision); Negative Normal Bowel Sounds (no bowel sounds)
Genito-urinary: Candelaria
Musculoskeletal: No Clubbing and No Cyanosis; Negative No Edema (2+ LE edema bilaterally)
Skin: Warm
Neuro: Awake
Psych: Calm
--- NOTE | 2025-01-27 09:58 | CON.INTV ---
Consultation
Consultation Request
Date/Time Consultation Requested: 01/27/2025929
Date/Time Consultation Performed: 01/27/2025954
Requesting Provider: Dr. Moreno
Performing Provider: Dr. Christie
Reason for Consultation: SMA thrombus/hypoxia
Medical History
-
Chief Complaint: Abdominal pain + SOB
History of Present Illness:
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
of the right iliac system s/p thromboembolectomy of the right iliac system + thromboembolectomy of the right SFA, popliteal artery and profundofemoral artery (10/2024) who presents with abdominal pain and SOB. He was in his usual state of health
[employer]ING RE[employer] when he developed sudden periumbilical abdominal pain without nausea or vomiting. In the ER he was afebrile to 98.2 �F, pulse rate 135, breathing at 12 breaths/min, BP 162/110 and saturating 97% on room air. Initial labs showed potassium 2.9,
lactate 5.2, T. bili 2.1, and proBNP 4580. CTA A/P showed thrombosis of the SMA with small bilateral pleural effusions and groundglass attenuation in the bases of the lungs. He was given 40 mg IV Lasix in the ER, Dilaudid 0.5 mg, potassium
repletion, 1 L NS 0.9% and Zofran. Vascular surgery was consulted and given his significant abdominal pain of acute onset he was consented for the OR. He underwent exploratory laparotomy with thromboembolectomy of superior mesenteric artery and
placement of an AbThera VAC. Postoperatively he returned to the ICU intubated, and Budget Record Clerk services consulted for additional management/recommendations.
This morning when I saw the patient, he had just returned from the OR. Currently on Levophed at 16 mcg/min, insulin drip at 1.7 units/hr, and on the ventilator via AC/CMV at 18/600/10/40%, with PIP 22 cmH2O, VTe 606 cc and breathing at 18
breaths/min. He has bloody output from his abdominal wound VAC. Family numbers at bedside. The mother was clearly upset with the current situation. Patient is sedated on propofol at 20 mcg/kg/min and also on a heparin drip.
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
PSHx: Appendectomy, left lower extremity arterial thrombosis s/p thrombectomy (06/2023), cardioversion
Past Medical History
Past Medical History: Other (Above as per HPI)
Past Surgical History: Other (Above as per HPI)
Social History
Tobacco: Former Smoker
Alcohol: Occasional (Social)
Drug: None
Family History
Family History: CAD (Mother: History of coronary stents)
Allergies / Home Medications
Allergies
Allergy/AdvReac Type Severity Reaction Status Date / Time
No Known Allergies Allergy Verified 01/27/25 00:21
Home Medications
�Medication �Instructions �Recorded �Confirmed �Last Taken �Type
methimazole 10 mg tablet 10 mg PO DAILY Thyroid 04/11/24 01/04/25 01/04/25 06:30 History
potassium chloride 20 mEq 20 meq PO DAILY Electrolyte 05/22/24 01/04/25 01/04/25 06:30 History
tablet,extended release Repletion
apixaban 5 mg tablet (Eliquis) 5 mg PO BID Blood clot 11/06/24 01/04/25 01/04/25 06:30 Rx
prevention/tx #60 tabs
empagliflozin 10 mg tablet 10 mg PO DAILY Heart Failure #30 11/06/24 01/04/25 01/04/25 06:30 Rx
(Jardiance) tabs
furosemide 40 mg tablet (Lasix) 40 mg PO BID Fluid 11/06/24 01/04/25 01/04/25 06:30 Rx
Retention/Swelling #60 tabs
sacubitril 24 mg-valsartan 26 mg 1 tab PO BID Heart 11/06/24 01/04/25 01/04/25 06:30 Rx
tablet (Entresto) Disease/Condition #60 tabs
amiodarone 200 mg tablet 200 mg PO DAILY Arrhythmia 30 days 12/03/24 01/04/25 01/04/25 06:30 Rx
#30 tabs
metoprolol succinate 25 mg 75 mg (3 x 25 mg) PO BID Heart 12/03/24 01/04/25 01/04/25 06:30 Rx
tablet,extended release 24 hr Failure 30 days #180 tabs
amoxicillin 875 mg-potassium 1 tab PO Q12 Infection 10 days #20 12/05/24 01/04/25 01/03/25 08:00 Rx
clavulanate 125 mg tablet tabs
ciprofloxacin HCl 500 mg tablet 500 mg PO Q12H Infection 10 days 12/05/24 01/04/25 01/03/25 08:00 Rx
#20 tabs
Review of Systems
-
Unable to Obtain full review of systems at this time due to: Patient Intubation
Vitals / Labs / Diagnostic Testing
Vital Signs
Temp Pulse Resp BP Pulse Ox
98.2 F 120 32 163/97 91
01/27/25 00:24 01/27/25 06:30 01/27/25 06:30 01/27/25 06:30 01/27/25 06:30
Lab Data
01/27/25 00:31
Laboratory Results
01/27/25 01/27/25 01/27/25
05:49 05:49 05:49
PT Cancelled 16.1 H
INR Cancelled 1.27
APTT Cancelled
01/27/25
05:49
PT
INR
APTT 24.4
Diagnostic Testing:
Physical Exam
-
HEENT: Normocephalic, Anicteric and Other (ETT in place)
Cardiovascular: Irregular Rhythm (Irregularly irregular) and Peripheral Edema (+2 lower extremity pitting edema)
Respiratory: Wheeze (negative), Rales (Bibasilar), Rhonchi (negative), Non-Labored Respirations and Other (Mechanical breath sounds heard bilaterally)
GI: Soft, Distended, Other (Hypoactive bowel sounds) and Other (Wound VAC in place in mid abdominal area)
Neurology: Tremors (negative) and Other (Sedated)
Skin: Warm and Dry
General: Respiratory Distress (negative), Chills (negative) and Sweats (negative)
Assessment
-
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
thromboembolic occlusion of the right iliac system s/p thromboembolectomy of the right iliac system + thromboembolectomy of the right SFA, popliteal artery and profundofemoral artery (10/2024) who presents with abdominal pain and SOB. 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
usual state of health [employer] when he developed sudden periumbilical abdominal pain without nausea or vomiting. In the ER he was afebrile to 98.2 �F, pulse rate 135, breathing at 12 breaths/min, BP 162/110 and saturating 97% on room air. Initial labs
showed potassium 2.9, lactate 5.2, T. bili 2.1, and proBNP 4580. CTA A/P showed thrombosis of the SMA with small bilateral pleural effusions and groundglass attenuation in the bases of the lungs. He was given 40 mg IV Lasix in the ER, Dilaudid 0.5
mg, potassium repletion, 1 L NS 0.9% and Zofran. Vascular surgery was consulted and given his significant abdominal pain of acute onset he was consented for the OR. He underwent exploratory laparotomy with thromboembolectomy of superior mesenteric
artery and placement of an AbThera VAC. Postoperatively he returned to the ICU intubated, and Budget Record Clerk services consulted for additional management/recommendations.
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
Impression:
#Acute mesenteric ischemia with SMA occlusion s/p ex lap with SMA thrombectomy and placement of AbThera VAC
#Lactic acidosis due to above
#Circulatory shock likely due to sedation and translocation of bacteremia from SMA thrombosis with ischemia
#A fib with RVR
#Ventilator dependent respiratory failure
#Suspected acute pulmonary edema/elevated proBNP (4580 on 01/27/2025)
#Leukocytosis likely reactive due to above
#Elevated troponin likely due to demand ischemia with type II ME
#Hyperglycemia
#Chronic hyperbilirubinemia
#Hx of acute limb ischemia of right lower extremity with thromboembolic occlusion of the right iliac system s/p thromboembolectomy of the right iliac system + thromboembolectomy of the right SFA, popliteal artery and profundofemoral artery (10/2024)
#Former tobacco smoker with centrilobular emphysema seen on CTA chest (10/29/2024 - at risk for COPD, although no PFTs on file
#Chronic HFrEF with LVEF 10-15% with global hypokinesis with massive occlusive thrombus in the MELISSA via LUIS ENRIQUE from 01/04/2025
Plan:
Postoperative surgical intensive care unit monitoring
prn nebulized bronchodilators - not currently bronchospastic
Continue with mechanical ventilation and would keep intubated and sedated with goal RASS -2 to -3 as he is planned to go to the OR again tomorrow as he has an open abdomen currently
Maintain plateau pressure <30; adjust vent settings based on blood gas; titrate PEEP + FiO2 to maintain SpO2 >90-94%
Maintain aspiration precautions with HOB as high as tolerated based on abdominal surgery
Oropharyngeal + ETT deep suctioning as needed
Pain control
Continue with Zosyn and follow-up blood cultures (collected today)
Monitor volume status and trend UOP
Continue with IV Lasix 40 mg BID
Strict I/O
Continue Levophed and wean as tolerated to keep MAP>65
Trend lactate until <2mmol/L
Control HR with goal <110
Consider starting cardizem gtt vs amio gtt
Trend T bili (although chronic)
Neuro and vascular checks per protocol
Replete electrolytes with K>4, Mg>2
Maintain euglycemia with goal BG 140-180; currently on insulin gtt
Continue to trend troponin level until it peaks
Vascular surgery following-correspondence and operative notes reviewed
Transfuse blood products as needed to keep Hb>7g/dL, and plt>50k (given post-operative status)
DVT prophylaxis: Heparin gtt
Stress ulcer ppx
Early nutrition
Early mobilization
Critical care statement: A total of 38 minutes of critical care time was provided for this patient today. This includes management of unstable vital signs, evaluation of the patient at bedside, reviewing the patient's pertinent medical records
including radiographs, microbiology, laboratory evaluations, and discussion with primary team, consultants, pharmacy, nutrition, physical therapy, case management, charge nurse, critical care nursing, and respiratory therapy.
Data:
CTA Abd/Pelvis w/wo IV contrast 01/27/2025:
Thrombosis of superior mesenteric artery branches, new since prior examination.
No bowel thickening or pneumatosis to suggest bowel ischemia.
No acute inflammatory changes within the abdomen or pelvis.
Mild diverticulosis without acute diverticulitis.
Stable fatty infiltration of liver. Stable low-attenuation right adrenal mass 1.3 cm, most consistent with benign adenoma.
Hazy attenuation in the dependent lung bases. Groundglass attenuation. Small bilateral pleural effusions. Possible mild pulmonary edema and/or atelectasis.
[2025-01-27] MEDS: HEPARIN 25000 UNITS/250 ML IV ×2 (10:00→20:18)
[2025-01-27 10:14] LABS: Glucose - Point of Care 168 mg/dl (70-99)
--- NOTE | 2025-01-27 10:30 | PTCARENOTE ---
Pt received into 3361at 0940 via bed from Vascular OR. Pt remains intubated w/ #8 ETT, 22cm to Rt lip. Resp Therapy in room and placed pt on vent. Rt nare NGT @71cm and placed to [facility]. Midline/medial abdominal incision w/ wound vac in place with
blood drainage. Edges of wound vac dressing sealed. Periwound soft to palpation and skin intact. Wilkreson patent and draining nicole urine. Lt radial Yvette in place- leveled and zero balanced. Following gtts infusing at time of arrival to ICU:
Vasopressin at 0.04 units/min, Epinephrine at 4 mcg/min, and Levophed at 24mcg/min. Shortly after arrival to ICU, pt's HR 150's w/ SBP 170's and pt becoming restless. Dr Hebert notified Propofol gtt started as documented. Epi gtt turned off and
Levophed gtt tapered as documented. Bilateral soft wrist restraints applied. Dr Gilbert in room to evaluate pt and confirmed order to begin Heparin gtt per Dr Wilkerson. Ordered labs drawn and sent.
[2025-01-27 10:40] LABS: Hemoglobin 16.2 g/dL (13.0-18.0); Mean Corp Hgb Conc. 32.4 g/dL (33.0-37.0); Mean Corpuscular Hgb 31.8 pg (27.0-31.0); Mean Platelet Volume 10.1 fL (7.4-10.4); Platelet Count 294 10^3/uL (130-400); Red Cell Dist. Width 16.6 % (11.5-14.5); White Blood Cell Count 15.7 10^3/uL (4.8-10.8)
[2025-01-27 10:46] LABS: B.E. -4.3 mmol/L; PCO2 49 mmHg (35-48); PO2 252 mmHg (83-108); pH 7.28 (7.35-7.45)
[2025-01-27 10:49] LABS: INR 1.37; PT 17.1 Sec (11.4-14.6)
[2025-01-27 10:57] LABS: Lactic Acid 3.3 mmol/L (0.7-2.0)
[2025-01-27 10:58] LABS: ALT (SGPT) 15 U/L (0-50); AST (SGOT) 28 U/L (17-59); Albumin 3.2 g/dl (3.5-5.0); Alkaline Phosphatase 101 U/L (38-126); Blood Urea Nitrogen 26 mg/dl (9-20); Calcium 8.4 mg/dl (8.4-10.2); Carbon Dioxide 24 mmol/L (22-30); Chloride 104 mmol/L (98-107); Estimated Creatinine Clearance 108 ml/min; Glucose 206 mg/dl (70-99); Magnesium 1.9 mg/dl (1.6-2.3); Potassium 4.2 mmol/L (3.5-5.1); Sodium 139 mmol/L (135-145); Total Bilirubin 2.1 mg/dl (0.2-1.3); Total Protein 5.7 g/dl (6.3-8.2); Triglycerides 98 mg/dl (10-149); eGFR > 60.00
[2025-01-27 11:11] LABS: Troponin I 0.112 ng/ml
[2025-01-27 11:32] LABS: Glucose - Point of Care 196 mg/dl (70-99)
[2025-01-27] MEDS: NOVOLIN R INSULIN INFUSION 100 IV (11:40)
[2025-01-27 12:33] LABS: Glucose - Point of Care 161 mg/dl (70-99)
[2025-01-27 12:39] LABS: Urine Albumin 2+ (Neg - Trace); Urine Bilirubin Negative (Negative); Urine Character Clear (Clear); Urine Color Yellow; Urine Glucose Negative (Negative); Urine Ketone Negative (Negative); Urine Leukocyte Negative (Negative); Urine Nitrite Negative (Negative); Urine Occult Blood 4+ (Negative); Urine Urobilinogen Negative (Neg - 1+)
--- NOTE | 2025-01-27 12:40 | PTCARENOTE ---
Dr Hebert notified at 1130 of lab results including ABGs. Resp Therapy notified of order to increase RR to 18. Insulin gtt started per ordered glycemic protocol - see worklist intervention. Pt noted to be draining approx 100ml/hr of bright red
blood into wound vac- current total 400ml since applied in OR. Talmage text to Dr Wilkerson informing him of amount and color of drainage along w/ pt's current VS and pressor requirements. Orders received for serial labs. IV Team RN notified of need for
PICC placement.
[2025-01-27 12:44] LABS: Urine Bacteria Few (Negative); Urine Squamous Cell 0-2 /LPF (Few); Urine White Cell 0-2 /HPF (0-5)
[2025-01-27] MEDS: ZOSYN 100 IV ×2 (12:50→18:20)
[2025-01-27] MEDS: NSS (PRESERVATIVE FREE) 10 ML IV (12:53)
[2025-01-27] MEDS: PROTONIX IV 40 MG IV (12:53)
[2025-01-27] MEDS: SUBLIMAZE 50 MCG IV ×4 (12:58→16:30)
[2025-01-27 13:17] LABS: Glucose - Point of Care 135 mg/dl (70-99)
[2025-01-27] MEDS: DIPRIVAN 100 IV ×2 (13:20→20:18)
[2025-01-27 14:17] LABS: Glucose - Point of Care 149 mg/dl (70-99)
--- NOTE | 2025-01-27 15:10 | PTCARENOTE ---
IV Team RN in room to place PICC at 1410. Pt's mom and sister here to visit at [address] Gilbert on pt's present status/plan of care. Hospital sliver cutter in room to provide support. Tapering Propofol and administering Fentanyl as
documented. Wound vac continues with approx 100ml/hr blood drainage. No change in appearance of abdomen- remains soft to palpation.
[2025-01-27 15:15] LABS: Lactic Acid 2.2 mmol/L (0.7-2.0)
[2025-01-27 15:33] LABS: Glucose - Point of Care 123 mg/dl (70-99)
--- NOTE | 2025-01-27 15:53 | CHAP ---
Called by niece, Radha, to visit and pray with Buster, who is known as 'Delta.' Delta's mother, Keyla, and sister, Aparna, were there when I arrived. Keyla shared her sorrow at seeing her son so ill. Emotional and spiritual support provided, along
with a prayer blanket, and assurance of our on-going availability.
[2025-01-27 16:15] LABS: Glucose - Point of Care 123 mg/dl (70-99)
[2025-01-27] MEDS: SUBLIMAZE 100 IV (16:31)
[2025-01-27 16:34] LABS: Hematocrit 49.2 % (39.0-52.0); Hemoglobin 16.4 g/dL (13.0-18.0); Mean Corp Hgb Conc. 33.3 g/dL (33.0-37.0); Mean Corpuscular Hgb 31.7 pg (27.0-31.0); Mean Corpuscular Volume 95.2 fL (80.0-94.0); Platelet Count 276 10^3/uL (130-400); Red Blood Cell Count 5.17 10^6/uL (4.70-6.10); White Blood Cell Count 13.7 10^3/uL (4.8-10.8)
[2025-01-27 16:39] LABS: B.E. 0.5 mmol/L; HCO3 23.3 mmol/L (21-28); O2 Saturation % 99.9 % (94-98); PCO2 32 mmHg (35-48); PO2 120 mmHg (83-108); pH 7.47 (7.35-7.45)
[2025-01-27 16:49] LABS: APTT 63.9 Sec (23.4-35.0)
[2025-01-27 16:52] LABS: Carbon Dioxide 25 mmol/L (22-30); Chloride 105 mmol/L (98-107); Lactic Acid 1.8 mmol/L (0.7-2.0); Potassium 4.1 mmol/L (3.5-5.1); Sodium 136 mmol/L (135-145)
[2025-01-27 17:06] LABS: Troponin I 0.138 ng/ml
[2025-01-27] MEDS: CARDIZEM 125 IV (17:07)
[2025-01-27 17:21] LABS: Glucose - Point of Care 131 mg/dl (70-99)
--- NOTE | 2025-01-27 17:30 | PTCARENOTE ---
Dr Wyatt to room at 1615 to see pt- updated on blood drainage and amount from wound vac. No additional order received at this time. Fentanyl gtt started at 1630 per CPOT. Pt's HR persistently 120-130's AFib. Cardizem gtt started at [address]
Emilee. Titrating as documented in worklist intervention. Comfort care/hygiene provided q2hr and prn.
[2025-01-27 19:07] LABS: Glucose - Point of Care 114 mg/dl (70-99)
--- NOTE | 2025-01-27 20:13 | PTCARENOTE ---
Received pt at 19:00. Pt intubated and sedated. Opens eyes intermittently, pupils 2mm and reactive, grimaces to pain. HR 90s-100s, afib, cardizem gtt continues. Weak but palpable radial pulses, DP and PT present with doppler. +1 generalized edema.
#8 ETT @ 22cm on the R. 18/500/40%/+8. Breath sounds diminished t/o. R nare NGT @ 71cm, LIWS with clear/robles output. Wilkerson in place, draining cloudy yellow-nicole urine. Abdomen with wound vac in place, 125 continuous--bloody output. L radial a-line
zeroed and transduced.
PTT result 63.9, per order Dr. Wilkerson made aware, order received to increase heparin gtt to 2200 units/hr.
[2025-01-27 21:20] LABS: Glucose - Point of Care 127 mg/dl (70-99)
[2025-01-27 21:43] LABS: B.E. 1.3 mmol/L; HCO3 25.9 mmol/L (21-28); O2 Saturation % 99.8 % (94-98); PCO2 40 mmHg (35-48); PO2 117 mmHg (83-108); pH 7.42 (7.35-7.45)
[2025-01-27 21:44] LABS: O2 Therapy %Oxygen/Room Air 40
[2025-01-27 21:55] LABS: Lactic Acid 1.5 mmol/L (0.7-2.0)
[2025-01-27 23:17] LABS: Glucose - Point of Care 114 mg/dl (70-99)
[2025-01-28] MEDS: ZOSYN 100 IV ×5 (00:14→23:43)
[2025-01-28] MEDS: CARDIZEM 125 IV (00:14)
[2025-01-28 00:39] LABS: Hematocrit 50.6 % (39.0-52.0); Hemoglobin 16.6 g/dL (13.0-18.0); Mean Corp Hgb Conc. 32.8 g/dL (33.0-37.0); Mean Corpuscular Hgb 31.9 pg (27.0-31.0); Mean Corpuscular Volume 97.1 fL (80.0-94.0); Mean Platelet Volume 10.3 fL (7.4-10.4); Platelet Count 261 10^3/uL (130-400); Red Blood Cell Count 5.21 10^6/uL (4.70-6.10); Red Cell Dist. Width 17.3 % (11.5-14.5); White Blood Cell Count 10.3 10^3/uL (4.8-10.8)
[2025-01-28 00:40] LABS: APTT 81.6 Sec (23.4-35.0)
[2025-01-28 00:46] VITALS: BP_SYST 83
[2025-01-28 01:12] LABS: Glucose - Point of Care 126 mg/dl (70-99)
[2025-01-28 03:20] LABS: Glucose - Point of Care 124 mg/dl (70-99)
[2025-01-28 03:48] LABS: B.E. 2.3 mmol/L; HCO3 26.5 mmol/L (21-28); PCO2 39 mmHg (35-48); PO2 133 mmHg (83-108); pH 7.44 (7.35-7.45)
[2025-01-28] MEDS: SUBLIMAZE 50 MCG IV ×2 (03:53→22:40)
[2025-01-28 03:55] LABS: Hematocrit 50.1 % (39.0-52.0); Hemoglobin 16.4 g/dL (13.0-18.0); Mean Corp Hgb Conc. 32.7 g/dL (33.0-37.0); Mean Corpuscular Hgb 31.5 pg (27.0-31.0); Mean Corpuscular Volume 96.2 fL (80.0-94.0); Mean Platelet Volume 10.1 fL (7.4-10.4); Platelet Count 250 10^3/uL (130-400); Red Blood Cell Count 5.21 10^6/uL (4.70-6.10); Red Cell Dist. Width 17.2 % (11.5-14.5); White Blood Cell Count 9.2 10^3/uL (4.8-10.8)
[2025-01-28] MEDS: LEVOPHED 258 MG IV ×3 (03:57→20:14)
[2025-01-28] MEDS: DIPRIVAN 100 IV ×3 (03:57→20:13)
--- NOTE | 2025-01-28 04:04 | PTCARENOTE ---
Pt with episode of agitation/restlessness and grimacing. PRN fentanyl IVP given and gtt titrated as per protocol. Otherwise, assessment remains unchanged.
[2025-01-28 04:18] LABS: Troponin I 0.132 ng/ml
[2025-01-28 04:24] LABS: ALT (SGPT) 10 U/L (0-50); AST (SGOT) 38 U/L (17-59); Albumin 2.7 g/dl (3.5-5.0); Alkaline Phosphatase 81 U/L (38-126); Blood Urea Nitrogen 30 mg/dl (9-20); Calcium 8.4 mg/dl (8.4-10.2); Carbon Dioxide 24 mmol/L (22-30); Chloride 103 mmol/L (98-107); Estimated Creatinine Clearance 98 ml/min; Glucose 122 mg/dl (70-99); Magnesium 1.9 mg/dl (1.6-2.3); Potassium 4.1 mmol/L (3.5-5.1); Sodium 137 mmol/L (135-145); Total Bilirubin 2.9 mg/dl (0.2-1.3); Total Protein 5.1 g/dl (6.3-8.2); eGFR > 60.00
[2025-01-28 05:22] LABS: Glucose - Point of Care 107 mg/dl (70-99)
[2025-01-28 06:00] VITALS: BMI 37.4
[2025-01-28 06:53] LABS: INR 1.46
[2025-01-28 06:55] LABS: APTT 90.9 Sec (23.4-35.0)
[2025-01-28 06:56] VITALS: BP_SYST 85
[2025-01-28 07:26] LABS: Glucose - Point of Care 109 mg/dl (70-99)
--- NOTE | 2025-01-28 08:00 | PTCARENOTE ---
Assumed care of pt at 0715 following shift report. Pt remains intubated, on vent at ordered settings. Pox 91% at time of shift report- RT in room to increase FiO2 to 60%. Rt PICC w/ gtts infusing as documented in workl ist hand off validation. Lt
radial A-Line leveled and zero-balanced- waveform wnl. Pt remains in AFib w/ HR 70's. Cardizem gtt decreased to 10mg/min per ordered parameters. Wilkerson patent and draining cloudy yellow urine w/ sediment. Rt NGT to LCWS w/ brown drainage- placement
confirmed by measurement. Medial abdominal wound vac w/ edges sealed with bloody drainage. Physical assessment completed as documented. Hygiene, comfort care provided. Repositioned. Restraints remain in use to protect tubes/lines. Safe environment
maintained.
--- NOTE | 2025-01-28 08:28 | W.PN.HOSP.TC ---
Today's Communication/Plan
-
see plan
Assessment / Plan
Assessment / Plan
pt is a 59 year old male with hx dilated cardiomyopathy, EF 5-10%, afib with known LV thrombus on AC non-compliant, left lower extremity arterial occlusion due to thromboembolism 07/06 and acute limb ischemia RLE s/p thromboembolectomy 11/06
presents to the ER with abdominal pain and shortness of breath. CT A/P showed thrombosis of the SMA s/p ex lap with thromboembolectomy of SMA and placement of an AbThera Vac 01/27/25.
CT A/P
IMPRESSION:
Thrombosis of superior mesenteric artery branches, new since prior examination.
No bowel thickening or pneumatosis to suggest bowel ischemia.
No acute inflammatory changes within the abdomen or pelvis.
Mild diverticulosis without acute diverticulitis.
Stable fatty infiltration of liver. Stable low-attenuation right adrenal mass 1.3 cm, most consistent with benign adenoma.
Hazy attenuation in the dependent lung bases. Groundglass attenuation. Small bilateral pleural effusions. Possible mild pulmonary edema and/or atelectasis.
LUIS ENRIQUE 01/04/25
CONCLUSIONS
Left ventricle is mildly dilated. Severely reduced left ventricular systolic
function. Global hypokinesis. Normal left ventricular wall thickness. Left
ventricular ejection fraction is 10-15%.
Normal right ventricular size and function.
Moderately dilated left atrium.
Mildly dilated right atrium.
Left atrial appendage is mildly dilated. Definite massive occlusive thrombus in
the left atrial appendage. Peak velocities within the left atrial appendage are
30cm/sec.
Mild mitral regurgitation.
Moderate to severe tricuspid regurgitation.
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
-appreciate vascular s/p OR 01/27/25; thromboembolectomy of SMA, placement ABThera Vac
-plan to go to OR later today per CRS
-appreciate Intensvisit and Vascular consult, CRS consult
--IV heparin as per vascular
-IV Zosyn
-IV pressors - on Levophed
acute hypoxemic resp failure--intubated
-diuretics held
hypokalemia--replete--check Mag
permanent AFIB with RVR - rate above 120s--cont cardizem drip, IV heparin drip--check K, mag--await cards
acute on chronic HFrEF (EF 5-10%)--holding lasix/entresto
monitor volume status closely
hyperthyroid--new diagnosis last admission?--on methimazole but would hold for now--consideration for checking TFTs but pt critically ill....
PAD--active smoker--MUST quit--had wound dehiscence and R iliac thromboembolectomy 11/06, OR washout 11/29/24
DVT proph--IV hepairn drip
Code status - Full Code
Total Critical Care Time 40 minutes. I was immediately available to the patient and staff. I personally examined, reviewed labs, diagnostic images/reports, interpretations, treatment plans, discussed patient care with other providers and family
or caregivers (if patient is unable to make decisions), entered orders as appropriate and documented the medical record.
Anticipated Discharge: > 48 hours
Subjective/Interval History
-
Date of Service: January 28, 2025
intubated
Objective Data
-
Labs:
Laboratory Results
01/27/25 01/27/25 01/28/25
18:00 21:32 00:20
WBC Cancelled 10.3
Hgb Cancelled 16.6
Hct Cancelled 50.6
Plt Count Cancelled 261
PT
INR
APTT 81.6 H
HCO3 25.9
Sodium
Potassium
Chloride
Carbon Dioxide
BUN
Creatinine
Glucose
Calcium
Total Bilirubin
AST
ALT
Alkaline Phosphatase
0301/28/25 01/28/25
03:31 06:36 12:00
WBC 9.2 Pending
Hgb 16.4 Pending
Hct 50.1 Pending
Plt Count 250 Pending
PT 18.0 H
INR 1.46
APTT 90.9 H
HCO3 26.5
Sodium 137
Potassium 4.1
Chloride 103
Carbon Dioxide 24
BUN 30 H
Creatinine 1.1
Glucose 122 H
Calcium 8.4
Total Bilirubin 2.9 H
AST 38
ALT 10
Alkaline Phosphatase 81
Vital Signs:
Vital Signs
Temp Pulse Resp BP Pulse Ox
98.5 F 81 18 163/97 96
01/28/25 07:37 01/28/25 06:30 01/28/25 06:00 01/27/25 06:30 01/28/25 07:55
I&O
01/27/25 01/28/25 01/29/25
06:59 06:59 06:59
Intake Total 1829.2 / 1829.2
Output Total 4239 / 4239
Balance -2409.8 / -2409.8
Review of Systems
-
History Source: Patient
All other systems: Reviewed and negative
Physical Exam
-
General: Well Developed, Well Nourished and Intubated
HEENT: Normocephalic and Atraumatic
Respiratory: Clear to Auscultation; Negative Wheezes, Rales, Rhonchi or Crackles
Cardiac: Irregular Rhythm and Tachycardic
GI: Soft, Nontender, Nondistended and Other (wound vac on large abdominal wound/incision); Negative Normal Bowel Sounds (no bowel sounds)
Genito-urinary: Wilkerson
Musculoskeletal: No Clubbing and No Cyanosis; Negative No Edema (2+ LE edema bilaterally)
Skin: Warm
Neuro: Awake
Psych: Calm
Data Reviewed
-
Diagnostic Radiology: Report Reviewed by me
Labs: Labs Reviewed by me
--- NOTE | 2025-01-28 08:35 | CON.CAR ---
Addendum entered and electronically signed by Jose Angelo MD 01/28/25 10:55:
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 AbTheraVac in place. Currently intubated, will be going back to the OR later
today.
PMH: Cardioembolic occlusion left common femoral artery June 2023, right iliac cardioembolic occlusion October 2024, persistent atrial fibrillation, tachycardia mediated cardiomyopathy EF 5-10% October 2024, nonsustained VT, hyperthyroidism,
noncompliance, depression, obesity
SH: Tobacco and alcohol abuse, single, lives alone
Outpatient meds: Reviewed
Rest of history as below
on fentanyl and propofol,On norepinephrine, IV insulin, heparin fentanyl, propofol, now on amiodarone, diltiazem discontinued. On metoprolol ER 75 twice daily as outpatient, on Entresto as outpatient, amiodarone is 200 mg daily as outpatient, also
on Eliquis, furosemide is 40 twice daily, also on Jardiance as outpatient with potassium
163/97, pulse 81, respiratory rate 18, afebrile, sats 96%, intubated, appears comfortable, rhonchi, irregular rate rhythm, rate controlled,Soft systolic murmur abdomen benign, pulses intact, 1+ edema
Hemoglobin 16.4, white count 9.2, platelets 250, BUN/creatinine 30 and 1.1, potassium 4.1, troponin 0.14, proBNP 4580, had been as high as 23,000 in past
Cardiac catheterization May 2024: Pulmonary capillary wedge pressure 16, no obstructive CAD
Chest x-ray: Cardiomegaly, possible mild vascular congestion
ECG atrial fibrillation, RVR, LVH, left axis deviation, left bundle branch block
Transesophageal echo December 2024: Mildly dilated left ventricle, global hypokinesis, EF 10-15%, normal RV, dilated atria, massive occlusive thrombus in left atrial appendage, velocities 30 cm/s, mild mitral regurgitation, mild to severe tricuspid
regurgitation, aortic valve with trace aortic regurgitation
Impression:
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
Permanent atrial fibrillation with left atrial appendage thrombus by transesophageal echo December 2024
Tachycardia mediated cardiomyopathy, EF 10 to 15%
Noncompliance
Vent dependent respiratory failure
Prior cardioembolic events to right iliac, right superficial, popliteal, and profunda October 2024
Prior cardioembolic event to left common femoral artery June 2023
Acute on chronic HFrEF
Nonsustained VT
Alcohol tobacco abuse
Obesity
Plan:
Patient scheduled for relook laparotomy later today
Continue heparin, continue pressors, patient now on amiodarone in place of diltiazem, may need to add intravenous beta-blockade if hemodynamics permit
Continue supportive care with optimization of hemodynamics reinstitution of GDMT as possible
This is his third cardioembolic event in 9 months
Original Note:
Documented by User: JEANINE Garcia 01/28/25 10:01
Consultation
Consultation Request
Date/Time Consultation Requested: 01/27/2025, 0930
Date/Time Consultation Performed: 01/28/2025, 0830
Requesting Provider: To Moreno MD
Performing Provider: JEANINE Garcia for Jose Angelo MD
Reason for Consultation: A-fib with RVR, heart failure exacerbation, SMA thrombus.
Medical History
-
Chief Complaint: Abdominal pain
History of Present Illness:
Patient is a 59-year-old male with past medical history of nonischemic cardiomyopathy, heart failure reduced ejection fraction, peripheral arterial disease status post cardioembolic occlusion of the left common femoral artery with left lower
extremity limb ischemia requiring thrombectomy in 2022, more recently status post right iliac thromboembolectomy 10/2024, hospitalization November 2024 with wound dehiscence status post washout and groin evacuation/debridement of seromatous
collection and fibrinous exudate with wound VAC placement 11/29/2024, hyperthyroidism on methimazole, alcohol use, tobacco use, medication nonadherence. During last hospitalization November/2024 for seroma, was also found to be in decompensated heart
failure with reduced EF and A-fib with rapid ventricular rates. He was loaded with amiodarone and beta-renee was uptitrated for better rate control. He had plan to see EP in outpatient setting for consideration of EP study/ablation and ICD given
his cardiomyopathy. He diuresed 14 pounds over the course of admission. He was Discharged on GDMT including Entresto, Jardiance, Toprol as well as Lasix 40 mg twice daily.
He was seen by EP, Dr. Juarez, for consultation on 12/18/2024. Plan for scheduling ablation procedure and also recommendation he undergo LUIS ENRIQUE/cardioversion to restore sinus rhythm. Plan to repeat echo 3 months after samaritan of sinus rhythm and if
LVEF remains reduced then proceed with ICD for primary prevention. He underwent LUIS ENRIQUE on 01/04/2025 showing a massive occlusive thrombus in the left atrial appendage, EF 10 to 15%, moderate to severe TR.
He was seen again for EP follow-up on 01/15/2025 and medication adherence was discussed. Plan for repeat LUIS ENRIQUE 6 weeks to reassess left atrial thrombus. Toprol was uptitrated from 50 mg twice daily to 50 mg in the morning 75 mg in the evening for
better rate control.
Cardiac catheterization May 2024 with nonobstructive coronary disease. His cardiomyopathy is presumed tachycardia mediated +/- alcohol abuse.
T
with EF 10 to 15% 03/2024.He was admitted last month with cold R foot and found to have right iliac occlusion s/p thrombectomy 10/29/2024 by vascular. He was in afib during this visit with RVR and started on amiodarone. He now presents back to
with malaise and clear drainage from groin site, no blood. Reports may have felt occasionally feverish however did not check his temperature. CTAP with evidence of R groin seroma, plan for washout and likely wound vac placement in AM per vascular.
Cardiology consulted for preop evaluation. Denies CP. Reports baseline SOB. CTAP without evidence of pleural effusions.
PMH:
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
Persistent atrial fibrillation, first discovered July 2023
Chronic OAC with eliquis
Chronic HFrEF
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
NSVT
Hyperthyroidism
Noncompliance
Depression
History of ETOH and tobacco abuse
Obesity
Past Medical History
Past Medical History: Other (See HPI)
Past Surgical History: Other (Left common femoral embolectomy 2022)
Social History
Tobacco: Smoker
Drug: None
Personal: Single
Living: Alone
Family History
Family History: Reviewed & Not Pertinent
Allergies / Home Medications
Allergy/AdvReac Type Severity Reaction Status Date / Time
No Known Allergies Allergy Verified 01/27/25 00:21
�Medication �Instructions �Recorded �Confirmed �Type
methimazole 10 mg tablet 10 mg PO DAILY Thyroid 04/11/24 01/04/25 History
potassium chloride 20 mEq 20 meq PO DAILY Electrolyte 05/22/24 01/04/25 History
tablet,extended release Repletion
apixaban 5 mg tablet (Eliquis) 5 mg PO BID Blood clot 11/06/24 01/04/25 Rx
prevention/tx #60 tabs
empagliflozin 10 mg tablet 10 mg PO DAILY Heart Failure #30 11/06/24 01/04/25 Rx
(Jardiance) tabs
furosemide 40 mg tablet (Lasix) 40 mg PO BID Fluid 11/06/24 01/04/25 Rx
Retention/Swelling #60 tabs
sacubitril 24 mg-valsartan 26 mg 1 tab PO BID Heart 11/06/24 01/04/25 Rx
tablet (Entresto) Disease/Condition #60 tabs
amiodarone 200 mg tablet 200 mg PO DAILY Arrhythmia 30 days 12/03/24 01/04/25 Rx
#30 tabs
metoprolol succinate 25 mg 75 mg (3 x 25 mg) PO BID Heart 12/03/24 01/04/25 Rx
tablet,extended release 24 hr Failure 30 days #180 tabs
amoxicillin 875 mg-potassium 1 tab PO Q12 Infection 10 days #20 12/05/24 01/04/25 Rx
clavulanate 125 mg tablet tabs
ciprofloxacin HCl 500 mg tablet 500 mg PO Q12H Infection 10 days 12/05/24 01/04/25 Rx
#20 tabs
Physical Exam
Vital Signs
Temp Pulse Resp BP Pulse Ox
98.5 F 81 18 163/97 96
01/28/25 07:37 01/28/25 06:30 01/28/25 06:00 01/27/25 06:30 01/28/25 07:55
Lab Results
01/28/25 03:31
Troponin I 0.132 ng/ml H* 01/28/25 03:31
Jmv-I-Knvjwmbplgc Pept 4580 pg/ml 01/27/25 00:31
GEN: intubated, sedate
HEENT: supple, anicteric, mmm
LUNGS: rhonchorous BS
CV: irreg, irreg, S1/S2,
EXT: trace edema
Impression / Plan
-
Primary Field Machinist: Dr. Pickett
Primary EP: Dr Solorio
PCP: Dr Peñaloza
Patient with history of cardioembolic occlusion of left common femoral artery 06/2023, right iliac artery occlusion status post thromboembolectomy 10/29/2024. During that time was also noted to be in persistent rapid A-fib initially discovered
07/2023 with history of noncompliance with medications. Also with known low EF suspected tachycardia mediated status post cath 05/2024 with nonobstructive CAD.
He presented back to the ED 11/2024 due to generalized malaise and was noted to have a seroma of his right groin s/p I/D and wound vac. He was also found to be in decompensated heart failure with reduced ejection fraction and have atrial
fibrillation with rapid ventricular rates. Plan for LUIS ERNIQUE cardioversion but LUIS ENRIQUE 01/04/2025 showed massive occlusive thrombus in left atrial appendage. Most recently, presented on 01/27/2025 with acute onset abdominal pain found to have acute
mesenteric ischemia with SMA occlusion, went to OR for exploratory laparotomy and SMA thrombectomy. Postop shock with metabolic/lactic acidosis, on Levophed and intubated. Cardiology consulted for management of atrial fibrillation and heart failure
Assessment:
Acute mesenteric ischemia with SMA occlusion, status post exploratory lap and SMA thrombectomy 12/30/2024
Acute hypoxemic respiratory failure
Shock with metabolic/lactic acidosis
Right groin seroma
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
Persistent atrial fibrillation, first discovered July 2023
elevated troponin
Chronic OAC with eliquis
Left atrial appendage thrombus by LUIS ENRIQUE 12/2024
Chronic HFrEF
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
NSVT
Hyperthyroidism
Noncompliance
Depression
History of ETOH and tobacco abuse
Obesity
ECHO 04/04/2024: EF 10 to 15%, severe global hypokinesis, mild MR, trace TR, PAP 30 to 33 mmHg
Cardiac catheterization 05/22/2024: Nonobstructive coronary disease with normal to mildly elevated right and left-sided filling pressures with normal cardiac output
Echocardiogram 10/30/2024: Severely dilated left ventricle, severely reduced LV systolic function, global hypokinesis with ejection fraction of 5-10%, moderate to severe eccentric TR with PA pressure of 30-35 mmHg, small pericardial effusion.
LUIS ENRIQUE 01/04/2025: LVEF 10 to 15%, definite massive occlusive thrombus in left atrial appendage, mild MR, moderate to severe TR
Plan:
HFrEF possibly tachycardia mediated related to atrial fibrillation
HF meds currently on hold due to critically ill status. Watch volume closely
outpt lasix dose 40 mg bid
outpt GDMT: Entresto 24-26 mg bid, Toprol 50/75 mg bid, jardiance 10 mg daily
eventually plan to repeat outpt echo after attempt at resuming NSR (had large MELISSA thrombus on LUIS ENRIQUE 12/2024, for repeat LUIS ENRIQUE in 6 wks). If EF remains <35%, t/c ICD for primary prevention SCD
Atrial fibrillation, persistent atrial fibrillation first diagnosed in 2022. Rates are now rapid
Underwent amiodarone load in November 2024 during admission. Currently on maintenance dose 200 mg daily. Had nausea on higher doses.
Telemetry personally reviewed: afib, HRs 80s
Currently on heparin, eventually transition back to Eliquis 5 mg twice daily
Increased beta-renee to better obtain rate control, increase Toprol-XL from 50 mg twice daily to 75 mg twice daily on 12/01/24 and heart rate has improved
K 4.1, Mag 1.9
Patient seen by EP in outpatient setting and plan for LUIS ENRIQUE/cardioversion then eventual ablation but LUIS ENRIQUE showed large left atrial thrombus. Plan to repeat LUIS ENRIQUE after 6 weeks uninterrupted anticoagulation.
Plan to repeat echocardiogram 3 months post cardioversion to reevaluate LV function in sinus rhythm. If patient remains with persistently reduced LVEF despite GDMT x 3 months and rate control, would have further discussion regarding implantation
of an ICD.
Patient has had previous discussion regarding possibility of EP study ablation targeting atrial fibrillation also consideration for ICD given his cardiomyopathy
Plans were for outpatient ablation / consideration for ICD discussion planned for 12/19/24 (will likely be some delay in scheduling procedure date given ongoing need for right groin wound VAC to treat his seroma).
elevated troponin
-0.034--0.112-0.138-0.140-0.132
-trend to peak
-likely due to demand ischemia
History of medical noncompliance - this is a significant issue. MELISSA thrombus thought to be due to med noncompliance with outpt OAC. Lack of insurance also playing a role, working on medical assistance.
acute thrombosis of SMA s/p ex lap with thromboembolectomy - care per vasc surgery
h/oLeft SFA seroma
Being followed by vascular surgery and wound VAC,

Documented by User: Jose Angelo MD 01/28/25 09:39
Medical History
-
History of Present Illness:
Patient is a 59-year-old male with past medical history of nonischemic cardiomyopathy, heart failure reduced ejection fraction, peripheral arterial disease status post cardioembolic occlusion of the left common femoral artery with left lower
extremity limb ischemia requiring thrombectomy in 2022, more recently status post right iliac thromboembolectomy 10/2024, hospitalization November 2024 with wound dehiscence status post washout and groin evacuation/debridement of seromatous
collection and fibrinous exudate with wound VAC placement 11/29/2024, hyperthyroidism on methimazole, alcohol use, tobacco use, medication nonadherence. During last hospitalization November/2024 for seroma, was also found to be in decompensated heart
failure with reduced EF and A-fib with rapid ventricular rates. He was loaded with amiodarone and beta-renee was uptitrated for better rate control. He had plan to see EP in outpatient setting for consideration of EP study/ablation and ICD given
his cardiomyopathy. He diuresed 14 pounds over the course of admission. He was Discharged on GDMT including Entresto, Jardiance, Toprol as well as Lasix 40 mg twice daily.
He was seen by EP, Dr. Juarez, for consultation on 12/18/2024. Plan for scheduling ablation procedure and also recommendation he undergo LUIS ENRIQUE/cardioversion to restore sinus rhythm. Plan to repeat echo 3 months after samaritan of sinus rhythm and if
LVEF remains reduced then proceed with ICD for primary prevention. He underwent LUIS ENRIQUE on 01/04/2025 showing a massive occlusive thrombus in the left atrial appendage, EF 10 to 15%, moderate to severe TR.
He was seen again for EP follow-up on 01/15/2025 and medication adherence was discussed. Plan for repeat LUIS ENRIQUE 6 weeks to reassess left atrial thrombus. Toprol was uptitrated from 50 mg twice daily to 50 mg in the morning 75 mg in the evening for
better rate control.
Cardiac catheterization May 2024 with nonobstructive coronary disease. His cardiomyopathy is presumed tachycardia mediated +/- alcohol abuse.
with EF 10 to 15% 03/2024.He was admitted last month with cold R foot and found to have right iliac occlusion s/p thrombectomy 10/29/2024 by vascular. He was in afib during this visit with RVR and started on amiodarone. He now presents back to
with malaise and clear drainage from groin site, no blood. Reports may have felt occasionally feverish however did not check his temperature. CTAP with evidence of R groin seroma, plan for washout and likely wound vac placement in AM per vascular.
Cardiology consulted for preop evaluation. Elian EDMONDS. Reports baseline SOB. CTAP without evidence of pleural effusions.
PMH:
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
Persistent atrial fibrillation, first discovered July 2023
Chronic OAC with eliquis
Chronic HFrEF
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
NSVT
Hyperthyroidism
Noncompliance
Depression
History of ETOH and tobacco abuse
Obesity
[2025-01-28] MEDS: HEPARIN 25000 UNITS/250 ML IV ×2 (08:36→22:14)
--- NOTE | 2025-01-28 08:38 | PN.DE.MGMTRT ---
Insulin Management
- -
01/28/2025: Diabetes Management Consult
59 year old male with PMH: A-fib, hyperthyroidism, chronic HFrEF, LLE arterial occlusion due to thromboembolism (06/2023), h/o acute limb ischemia of RLE with thromboembolic occlusion of the right iliac system s/p thromboembolectomy of the right
iliac system + thromboembolectomy of the right SFA, popliteal artery.
Patient presented to the ED with abdominal pain and SOB. CTA showed thrombosis of the SMA s/p ex lap with thromboembolectomy of SMA and placement of an AbThera Vac 01/27/25. Postoperatively he was started on the glycemic protocol due to
hyperglycemia. Was taking Jardiance 10mg daily CUFF CUTTER. A1C 6.3%, Cr 1.1, eGFR >60. Pt remains intubated and sedated, on insulin infusion, glucose 107 to 126, requiring 1 to 1.2 units of insulin/hr.
Plan for OR today with colorectal surgery. Will make no changes to current management plan.
Will cont to follow and assess readiness to transition off drip when medically stable.
Diabetes History
- -
Type of Diabetes: 2 requiring insulin
Pre-Admission Diabetes Regimen
01/27/25 01/28/25
10:29 03:31
Creatinine 1.0 1.1
Insulin Pump Settings
IP Diabetes Regimen
01/27/25 01/27/25 01/27/25
10:02 10:29 11:20
Glucose 206 H
POC Glucose 168 H 196 H
01/27/25 01/27/25 01/27/25
12:21 13:05 14:06
Glucose
POC Glucose 161 H 135 H 149 H
01/27/25 01/27/25 01/27/25
15:22 16:04 17:03
Glucose
POC Glucose 123 H 123 H 131 H
01/27/25 01/27/25 01/27/25
18:56 21:09 23:06
Glucose
POC Glucose 114 H 127 H 114 H
01/28/25 01/28/25 01/28/25
01:01 03:09 03:31
Glucose 122 H
POC Glucose 126 H 124 H
01/28/25 01/28/25
05:09 07:15
Glucose
POC Glucose 107 H 109 H
Patient Education
[2025-01-28] MEDS: NSS (PRESERVATIVE FREE) 10 ML IV (08:48)
[2025-01-28] MEDS: PROTONIX IV 40 MG IV (08:48)
[2025-01-28 08:55] VITALS: BP 114/91
[2025-01-28 09:06] LABS: Glucose - Point of Care 120 mg/dl (70-99)
[2025-01-28 09:09] LABS: Glycohemoglobin (HgbA1c) 6.3 % (4.0-5.6)
--- NOTE | 2025-01-28 09:18 | RESPNOTE ---
ETT seen on CXR well above christopher. BS diminshed b/l, consisent leak around cuff. discussed with Dr. Wade, ETT advanced from 21cm at the lips to 25. repeat CXR ordered.
--- NOTE | 2025-01-28 09:42 | W.PN.CRS1 ---
Addendum entered and electronically signed by Brian Wyatt MD 01/28/25 14:30:
Spoke with Keyla, patient's mother, and updated her on plan for take-back surgery; explained risks/benefits/alternatives, including but not limited to, bleeding (elevated due to need for hep gtt), infection, damage to nearby structures, need for
extensive bowel resection and possible short gut, discovery of non-survivable bowel injury, need for multiple take-backs, anastomotic complications if any created (ie- leak, stricture), recurrence of thromboembolism and anesthetic risk (ie-
SC,CVA,DVT/PE, respiratory failure, ); all questions were answered and mother agreed; consent witnessed by Madelin in the OR
Original Note:
Today's Communication / Plan
-
OR today
maintain NGT/wound vac
hold heparin gtt medical cost consultant to OR
Assessment/Plan
-
POD#1 Ex lap, SMA embolectomy
intbutated and sedated
afebrile past 24 hours
levophed gtt, heparin gtt, cardizem gtt
-Wound vac in place
-Intubated and sedated
-Maintain NGT
-Plan is for OR later this afternoon with Dr. yWatt (~2pm pending OR)
-Hold heparin gtt medical cost consultant to OR, discussed with nursing
-D/C Miralax
Subjective Data
Procedure
01/27/2025- Ex lap, SMA embolectomy
Subjective Data
Date of Service: January 28, 2025
Patient is intubated and sedated. He appears comfortable.
Objective Data
-
Vital Signs
Temp Pulse Resp BP Pulse Ox
98.5 F 81 18 163/97 96
01/28/25 07:37 01/28/25 06:30 01/28/25 06:00 01/27/25 06:30 01/28/25 07:55
Intake & Output
01/27/25 01/28/25 01/29/25
06:59 06:59 06:59
Intake Total 1829.2 / 1829.2
Output Total 4239 / 4239
Balance -2409.8 / -2409.8
Intake:
IV fluids (Total) 1729.2 / 1729.2
Cardizem 200 / 200
Fentanyl 42.5 / 42.5
Heparin 442 / 442
Insulin 32.6 / 32.6
Levophed 750.2 / 750.2
Propofol 261.9 / 261.9
Vasopressin 0 / 0
IV piggybacks 100 / 100
Output:
Drain Output (Total) 1899 / 1899
Abdomen Wound Vac 1899
Gastrointestinal tube output ( 300 / 300
Total)
[place] Sump 300 / 300
Urine, Wilkerson 2038
Lab Results
01/28/25 03:31
Physical Exam
-
General: Other (intubated and sedated)
Abdomen: Other (wound vac in place)
Skin: Warm and Dry
--- NOTE | 2025-01-28 09:55 | W.PN.VS ---
Addendum entered and electronically signed by Elvis Wilkerson III, MD 01/28/25 18:02:
This patient was seen and examined in collaboration with JEANINE Li. I agree with the history and physical exam as well as the assessment and plan.
Signed:
Elvis Wilkerson III, MD
[facility]
[phone] (dffz)
Original Note:
Today's Communication / Plan
-
Patient seen and examined at bedside with Dr. Elvis Wilkerson III, below plan reviewed with attending.
Assessment/Plan
-
Assessment: 59-year-old male POD #1 Exploratory laparotomy, thromboembolectomy of superior mesenteric artery, and placement of AbThera VAC
Plan:
OR today with colorectal
Subjective Data
-
Date of Service: January 28, 2025
Patient seen and examined at bedside, remains intubated and sedated.
Objective Data
-
Vital Signs
Temp Pulse Resp BP Pulse Ox
98.5 F 81 18 163/97 96
01/28/25 07:37 01/28/25 06:30 01/28/25 06:00 01/27/25 06:30 01/28/25 07:55
Intake and Output
01/27/25 01/28/25 01/29/25
06:59 06:59 06:59
Intake Total 1829.2 / 1829.2
Output Total 4239 / 4239
Balance -2409.8 / -2409.8
Intake:
IV fluids (Total) 1729.2 / 1729.2
Cardizem 200 / 200
Fentanyl 42.5 / 42.5
Heparin 442 / 442
Insulin 32.6 / 32.6
Levophed 750.2 / 750.2
Propofol 261.9 / 261.9
Vasopressin 0 / 0
IV piggybacks 100 / 100
Output:
Drain Output (Total) 1899
Abdomen Wound Vac 1899
Gastrointestinal tube output ( 300 / 300
Total)
[place] Sump 300 / 300
Urine, Wilk[place] 2038
Lab Results
01/28/25 03:31
Calcium 8.4 mg/dl (8.4-10.2) 01/28/25 03:31
Magnesium 1.9 mg/dl (1.6-2.3) 01/28/25 03:31
Total Bilirubin 2.9 mg/dl (0.2-1.3) H 01/28/25 03:31
AST 38 U/L (17-59) 01/28/25 03:31
ALT 10 U/L (0-50) 01/28/25 03:31
Alkaline Phosphatase 81 U/L (38-126) 01/28/25 03:31
Total Protein 5.1 g/dl (6.3-8.2) L 01/28/25 03:31
Albumin 2.7 g/dl (3.5-5.0) L 01/28/25 03:31
Physical Exam
-
Intubated and sedated
No tachycardia
ABD with ABThera wound VAC in place
Bilateral feet warm
[2025-01-28] MEDS: CORDARONE 518 MG IV (10:17)
--- NOTE | 2025-01-28 11:00 | PTCARENOTE ---
Pt's mother and daughter visiting at bedside. Updated on pt's present condition and plan of care. Questions answered and emotional support provided. Pt turned and repositioned, hygiene and comfort care provided. Amiodarone continues at 1mg/min w/ HR
90's- AFib. All other gtts unchanged from previous assessment findings. No additional changes noted. Safe environment maintained.
[2025-01-28 11:30] LABS: Glucose - Point of Care 117 mg/dl (70-99)
[2025-01-28 12:14] LABS: HCO3 26.5 mmol/L (21-28); O2 Saturation % 99.8 % (94-98); PCO2 40 mmHg (35-48); PO2 119 mmHg (83-108); pH 7.43 (7.35-7.45)
[2025-01-28 12:17] LABS: Hematocrit 49.3 % (39.0-52.0); Hemoglobin 16.3 g/dL (13.0-18.0); Mean Corp Hgb Conc. 33.1 g/dL (33.0-37.0); Mean Corpuscular Hgb 32.2 pg (27.0-31.0); Mean Corpuscular Volume 97.4 fL (80.0-94.0); Mean Platelet Volume 10.4 fL (7.4-10.4); Platelet Count 240 10^3/uL (130-400); Red Blood Cell Count 5.06 10^6/uL (4.70-6.10); Red Cell Dist. Width 17.5 % (11.5-14.5); White Blood Cell Count 7.3 10^3/uL (4.8-10.8)
[2025-01-28 12:38] LABS: Troponin I 0.114 ng/ml
[2025-01-28 12:45] LABS: Blood Urea Nitrogen 31 mg/dl (9-20); Calcium 8.3 mg/dl (8.4-10.2); Carbon Dioxide 26 mmol/L (22-30); Chloride 104 mmol/L (98-107); Estimated Creatinine Clearance 89 ml/min; Glucose 133 mg/dl (70-99); Potassium 4.1 mmol/L (3.5-5.1); Sodium 136 mmol/L (135-145); eGFR > 60.00
[2025-01-28 12:47] VITALS: BMI 37.4
[2025-01-28 13:19] LABS: Glucose - Point of Care 118 mg/dl (70-99)
--- NOTE | 2025-01-28 13:40 | PTCARENOTE ---
Report given to Brandt' in OR-
--- NOTE | 2025-01-28 14:10 | PTCARENOTE ---
Pt to OR. Pt's mother and sister in room prior to transport. No changes in assessment findings prior to pt leaving room.
[2025-01-28 15:15] LABS: B.E. - POC 0.2 mmol/L; Glucose - POC 133 mg/dl (70-99); HCO3 - POC 29 mmol/L (21-28); Hematocrit - POC 52 % PCV (42-52); Hemodilution- POC Yes; Hemoglobin Calculated - POC 17.8; Ionized Calcium - POC 1.14 mmol/L (1.15-1.33); Lactate - POC 1.68 mmol/L (0.36-0.75); PCO2 - POC 60 mmHg (35-48); PO2 - POC 77 mmHg (83-108); Potassium - POC 4.2 mmol/L (3.5-5.1); Sodium - POC 142 mmol/L (136-145); Specimen Type - POC Arterial; pH - POC 7.29 (7.35-7.45)
--- NOTE | 2025-01-28 15:25 | W.PN.INTV ---
Today's Communication / Plan
Recommendations
-d/o Cardizem infusion
-Start Amiodarone infusion
-ABG and CXR in AM
-Monitor labs
Assessment
-
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
thromboembolic occlusion of the right iliac system s/p thromboembolectomy of the right iliac system + thromboembolectomy of the right SFA, popliteal artery and profundofemoral artery (10/2024) who presents with abdominal pain and SOB. 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
usual state of health [employer] when he developed sudden periumbilical abdominal pain without nausea or vomiting. In the ER he was afebrile to 98.2 �F, pulse rate 135, breathing at 12 breaths/min, BP 162/110 and saturating 97% on room air. Initial labs
showed potassium 2.9, lactate 5.2, T. bili 2.1, and proBNP 4580. CTA A/P showed thrombosis of the SMA with small bilateral pleural effusions and groundglass attenuation in the bases of the lungs. He was given 40 mg IV Lasix in the ER, Dilaudid 0.5
mg, potassium repletion, 1 L NS 0.9% and Zofran. Vascular surgery was consulted and given his significant abdominal pain of acute onset he was consented for the OR. He underwent exploratory laparotomy with thromboembolectomy of superior mesenteric
artery and placement of an AbThera VAC. Postoperatively he returned to the ICU intubated, and [facility] services consulted for additional management/recommendations.
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
Last 24-hour events:
Fluid balance, -1.2 L
Hemoglobin stable at 16.3, white count 7.3, platelet 240
INR at 1.46
ABG 7.43, 40, 119 on volume AC, 500 x 18 x 60% with a PEEP of 8
Normal potassium of 4.1, normal creatinine of 1.2.
Chest x-ray unremarkable
Assessment and plan:
#1. Acute mesenteric ischemia with SMA occlusion, likely embolic, s/p ex lap with SMA thrombectomy, currently open abdomen
-Currently on heparin infusion
-Plan for return to OR today with vascular and colorectal surgery service
#2. Shock.
-This is related to acute mesenteric ischemia, infection cannot be ruled out
-Currently on Levophed, continue. Off vasopressin
-Continue Zosyn, MRSA screen pending
-Cardiac shock also in differential considering low ejection fraction of 10 to 15%.
-DC Cardizem
#3. Chronic heart failure with reduced ejection fraction, LVEF 10 to 15% with history of occlusive thrombus in MELISSA in the past
-Likely the source of embolic event to SMA
-Monitor input and output closely
-Chest x-ray in a.m.
#4. Atrial fibrillation with rapid ventricular rate
-DC Cardizem in view of low EF
-Start amiodarone infusion
-Cardiology service on case
-If worsening hemodynamic instability noted, might need emergent cardioversion
-Heparin drip for anticoagulation
#5. Hyperglycemia
-Insulin infusion
Gi Prophylaxis with IV PPI
Critical care statement: A total of 35 minutes of critical care time was provided for this patient today. This includes management of unstable vital signs, evaluation of the patient at bedside, reviewing the patient's pertinent medical records
including radiographs, microbiology, laboratory evaluations, and discussion with primary team, consultants, pharmacy, nutrition, physical therapy, case management, charge nurse, critical care nursing, and respiratory therapy.
Data:
CTA Abd/Pelvis w/wo IV contrast 01/27/2025:
Thrombosis of superior mesenteric artery branches, new since prior examination.
No bowel thickening or pneumatosis to suggest bowel ischemia.
No acute inflammatory changes within the abdomen or pelvis.
Mild diverticulosis without acute diverticulitis.
Stable fatty infiltration of liver. Stable low-attenuation right adrenal mass 1.3 cm, most consistent with benign adenoma.
Hazy attenuation in the dependent lung bases. Groundglass attenuation. Small bilateral pleural effusions. Possible mild pulmonary edema and/or atelectasis.
Subjective Dataa
Subjective Data
Date of Service:
Date of Service: January 28, 2025
Subjective:
Patient currently intubated and sedated.
Review of Systems
General: Unobtainable - Pat Unresp
Objective Data
Data Reviewed
Vital Signs / I&O / Oxygen:
Vital Signs
Temp Pulse Resp BP Pulse Ox
99 F 94 19 114/91 98
01/28/25 11:30 01/28/25 13:00 01/28/25 13:00 01/28/25 08:55 01/28/25 13:00
Intake and Output
01/27/25 01/28/25 01/29/25
06:59 06:59 06:59
Intake Total 1829.2 / 1913.6 755.0 / 755.0
Output Total 4239 / 4239 285 / 285
Balance -2409.8 / -2325.4 470.0 / 470.0
SaO2 [A/C] 97
SaO2 98
Physical Exam
General: Comfortable
HEENT: Normocephalic
Cardiovascular: Irregular Rhythm
Respiratory: Clear
Neurology: Other (Sedated)
Skin: Warm
Labs/Micro/Reports
Lab Data
01/28/25 11:55
01/28/25 11:55
Laboratory Results
01/27/25 01/27/25 01/28/25
16:20 21:32 00:20
PT
INR
APTT 63.9 H 81.6 H
pH 7.47 H 7.42
pCO2 32 L 40
pO2 120 H 117 H
HCO3 23.3 25.9
O2 Delivery Level %oxygen/room air 40
01/28/25 01/28/25 01/28/25
03:31 06:36 11:55
PT 18.0 H
INR 1.46
APTT 90.9 H
pH 7.44 7.43
pCO2 39 40
pO2 133 H 119 H
HCO3 26.5 26.5
O2 Delivery Level
Microbiology
01/27/25 12:14 Blood/Venous Blood Culture - Preliminary
No Growth in 24 hours- Final report to follow
[2025-01-28 16:02] LABS: B.E. - POC 0.6 mmol/L; Glucose - POC 122 mg/dl (70-99); HCO3 - POC 27 mmol/L (21-28); Hematocrit - POC 49 % PCV (42-52); Hemodilution- POC Yes; Hemoglobin Calculated - POC 16.8; Ionized Calcium - POC 1.09 mmol/L (1.15-1.33); Lactate - POC 1.82 mmol/L (0.36-0.75); O2 Saturation %Calculated-POC 99.1 % (94-98); PCO2 - POC 49 mmHg (35-48); PO2 - POC 145 mmHg (83-108); Potassium - POC 3.9 mmol/L (3.5-5.1); Sodium - POC 143 mmol/L (136-145); Specimen Type - POC Arterial; pH - POC 7.35 (7.35-7.45)
--- NOTE | 2025-01-28 16:35 | W.IMMPOSTOP ---
Surgical Immed Post Op Note
-
Primary Surgeon: Brian Wyatt MD
Assisting Surgeon: QUE Rosen
Pre-op Diagnosis: SMA occlusion, mesenteric ischemia, open abdomen
Post-op Diagnosis: SMA occlusion, mesenteric ischemia, open abdomen
Procedure Performed: Exploratory laparotomy, mesenteric angiography, partial omentectomy, tap block, abdominal closure
Anesthesia Type: General
Specimen / Cultures: Partial omentum
Estimated Blood Loss: 20 mL
Complications: None
Operative Findings: Ran the small bowel from the ligament of Treitz to Treves and entire length of small bowel appeared perfused; no evidence of necrosis or perforation; there were some areas of pallor, but all segments were peristalsing and there
were dopplerable signals along the entire course of the mesentery; ran the large bowel from the cecum to the proximal rectum; the colon appeared pale but perfused with no evidence of necrosis or perforation; from the cecum to the hepatic flexure,
there was areas of hamilton towards the antimesenteric portion; therefore, I took down the white line of Toldt up to the hepatic flexure in order to visualize the colon wall better; this area was pale, slightly more pale than the remainder of the colon;
therefore, I performed mesenteric angiography with ICG; the cecum, ascending colon, hepatic flexure and transverse colon were well-perfused on firefly; there was 1 area on the omentum that appeared oozy, which I had noted in the initial surgery
yesterday; therefore, I resected this area using the vessel sealer; draped mesentery over the abdominal contents, placed Seprafilm and closed fascia with running 0 PDS with internal retention sutures (0 vicryl in figure-of-8) every 4cm); irrigated
subQ space with dilute betadine and closed with interrupted telfa tree
--- NOTE | 2025-01-28 16:47 | OR.RPT ---
Operative Report
Operative Report
DATE OF OPERATION: 01/28/2025
SURGEON: Brian Wyatt MD
PREOPERATIVE DIAGNOSIS: SMA occlusion, mesenteric ischemia, open abdomen
POSTOPERATIVE DIAGNOSIS: SMA occlusion, mesenteric ischemia, open abdomen
OPERATION: Exploratory laparotomy, partial omentectomy, mesenteric angiography with ICG, TAP block, abdominal closure
ASSISTANTS:
1. QUE Gan
ANESTHESIA: General
ESTIMATED BLOOD LOSS: 20 mL
UOP: 100 mL
IVF: 500 mL
FINDINGS:
1. Small bowel well-perfused without evidence of necrosis; good dopplerable signals over the SMA, ICA and ELLIOTT as well as the small bowel mesenteric arcade
2. Performed mesenteric angiography with ICG of the right colon, which was well-perfused
SPECIMENS:
1. Partial omentum
DRAINS: None
COMPLICATIONS: No immediate complications.
INDICATIONS: The patient is a 59-year-old male who presented with SMA occlusion due to thromboembolic disease. He underwent exploratory laparotomy with SMA thromboembolectomy by Dr. Wilkerson. Initially, his bowel appeared dusky, but perfusion
improved after revascularization. There were some questionable areas of ischemia and he was on 3 pressors, so the patient was left open for aggressive resuscitation and a second look operation. Within 24 hours of the index surgery, the patient
significantly improved. He was weaned off of 2 pressors and his acidosis resolved. Therefore, I recommended prompt return to the OR for evaluation of the bowel and possible abdominal closure. The operation was discussed with the patient's mother
in detail, including the risks, benefits and alternatives. Risks described included, but not limited to, bleeding (elevated due to need for hep gtt), infection, damage to nearby structures, need for extensive bowel resection and possible short gut,
discovery of non-survivable bowel injury, need for multiple take-backs, anastomotic complications if any created (ie- leak, stricture), recurrence of thromboembolism and anesthetic risk (ie- NV, CVA, DVT/PE, respiratory failure, organ failure and
). All questions were answered and the patient's mother agreed. The consent was done over the phone and witnessed by Madelin Cook RN in the OR.
PROCEDURE IN DETAIL: The patient was taken to the operating room and placed on the operating table in supine position. Sequential compression devices were placed bilaterally. General anesthesia was induced. The patient was intubated previously.
Wilkerson and NG tube were already in place. The arms were secured to the armboards in extended position. Pressure points were padded. Patient had recently received antibiotics on the floor. The outer layer of the VAC was removed. The abdomen was
prepped and draped in a sterile fashion. A time-out was performed verifying the correct patient, procedure, operative site, positioning, and special equipment.
The inner layer of the ABThera VAC was removed. An extra-large Eliceo was placed. The omentum was retracted over the transverse colon. The bowel was run from the ligament of Treitz to the proximal rectum. The first 50 or so centimeters of the
jejunum appeared pale but perfused without any evidence of necrosis or perforation. There was visible peristalsis throughout this area. The remainder of the small bowel appeared well-perfused without any evidence of necrosis or perforation, and
visible peristalsis was seen throughout. The terminal ileum and the cecum had some adhesions to the right lower quadrant, which did not obscure my view and were left in place. The ascending colon was pale, but well-perfused without necrosis or
perforation. The distal ascending colon and hepatic flexure were somewhat obscured due to fatty epiploica and omentum. It appeared a little more pale than the remainder of the bowel. The transverse colon was elevated and the closure of the
mesentery by the SMA was checked and remained intact. There was a good dopplerable signal at the SMA. The remainder of the large bowel to the proximal rectum did appear a little pale, but otherwise well-perfused without evidence of necrosis or
perforation. There was one thickened spot on the omentum that was oozing a little blood. I resected this small portion using the vessel sealer and hemostasis was assured. In order to improve visualization of the ascending colon and hepatic
flexure, I mobilized the colon by taking down the white line of Toldt up to the hepatic flexure and down to the cecum. I had a much better view of the antimesenteric portion of the colon wall. There was no necrosis, but it did appear pale. I
discussed the case with Dr. Patel from general surgery who agreed that the area appeared pale but there no obvious necrosis and recommended ICG angiography to confirm. 2 cc of ICG were injected and the bowel was visualized on firefly. There was
good perfusion throughout the right side of the colon and transverse colon. The small bowel that was visualized also appeared well-perfused. The first portion of the jejunum was assessed and also well-perfused. Therefore, I did not proceed with
any bowel resection.
There was sufficient domain in the abdomen so I planned for closure. I raised 1 to 2 cm subcutaneous flaps in order to free up the fascial edges. I covered the abdominal contents entirely with the omentum. I grasped the fascial edges with
racquel's and brought them together to estimate the tension and there was minimal tension. I closed the fascia with running 0 PDS starting at the corners and meeting in the middle. I placed internal retention sutures of 0 Vicryl in [id number]
fashion every 3 to 4 cm. Prior to closing the fascia, I requested an extra check on the instrument and sponge count, which was confirmed. I performed a bilateral TAP block using 30mL 0.25% Marcaine with epi mixed with 0.3mg of decadron. I placed
Seprafilm below the fascial closure. I irrigated the subcutaneous space with dilute Betadine. Hemostasis was checked and assured. I closed the skin with interrupted bry and Telfa tree and covered the incision with Aquacel.
At this point, the procedure was complete. All needle, sponge and instrument counts were reported as correct. The patient tolerated the procedure well and was transferred to the ICU in stable condition with the NG tube and Wilkerson in place.
DICTATED BY: Brian Wyatt MD
--- NOTE | 2025-01-28 17:30 | PTCARENOTE ---
Pt returned to ICU rm [id number] from OR at 1700. Arrived w/ Propofol at 5 mcg/kg/min, Fentanyl at 100mcg/hr, Insulin at 1.2 units/hr, Levo @ 18 mcg/min, Amiodarone at 1mg/min - dose adjusted to 0.5mg/min upon arrival to ICU per ordered Amio protocol.
Heparin gtt restarted per order Dr Wyatt. NGT placed back to LIWS w/ dark brown drainage. Pt w/ midline abdominal Aquacell type dressing- very small amount of shadow drainage marked. Pt remains intubated and placed back on vent at previous settings
by Resp. Therapy. Pt remains restrained per protocol. Resting quietly- no distress. Lt radial Yvette leveled and zero-balanced, waveform WNL. SCDs remain in use. Hygiene/comfort care provided.
[2025-01-28 17:53] LABS: Glucose - Point of Care 117 mg/dl (70-99)
[2025-01-28 19:21] LABS: Glucose - Point of Care 92 mg/dl (70-99)
[2025-01-28 20:23] LABS: Glucose - Point of Care 131 mg/dl (70-99)
[2025-01-28 21:18] LABS: Glucose - Point of Care 137 mg/dl (70-99)
--- NOTE | 2025-01-28 21:30 | PTCARENOTE ---
Received patient at start of shift. Patient remains intubated with #8 at 25. Patient increased restless noted, Propofol increased at that time with positive results. Patient afib on the monitor, weak pedal pulses, use of doppler required. Weak
radial pulses as well. Lung sounds diminished throughout. Patient on A/C 18/500/40%/5 at start of shift, pox between 96-98%. BS absent x4 quadrants. Aquacell dressing c/d/i, small areas of shadding noted and outlined. Skin otherwise intact. NGT to
right nare with LWIS draining brown liquid. Wilkerson cath intact and draining cloudy, yellow/pink urine. BG 92 at start of shift. Insulin gtt placed on Hold per protocol at that time. BG checked hourly. Patient continues with Amiodarone gtt, Heparin
gtt, Levo gtt, Propofol and Fentanyl gtts. Will continue to monitor patient closely.
[2025-01-28 22:12] LABS: Glucose - Point of Care 114 mg/dl (70-99)
[2025-01-28 22:43] LABS: APTT 56.2 Sec (23.4-35.0)
[2025-01-28 22:54] LABS: Troponin I 0.081 ng/ml
[2025-01-28 23:15] LABS: Glucose - Point of Care 140 mg/dl (70-99)
[2025-01-29 01:15] LABS: Glucose - Point of Care 131 mg/dl (70-99)
--- NOTE | 2025-01-29 02:08 | PTCARENOTE ---
Patient continues on IV gtts, Insulin remains on hold with BG checks q2 hours per protocol. Will continue to monitor.
[2025-01-29] MEDS: LEVOPHED 258 MG IV ×2 (02:18→10:12)
[2025-01-29] MEDS: DIPRIVAN 100 IV ×3 (02:22→17:24)
[2025-01-29 03:12] LABS: Glucose - Point of Care 162 mg/dl (70-99)
[2025-01-29 03:34] LABS: B.E. 2.8 mmol/L; HCO3 27.2 mmol/L (21-28); PCO2 40 mmHg (35-48); PO2 92 mmHg (83-108); pH 7.44 (7.35-7.45)
[2025-01-29 03:36] LABS: O2 Therapy 60%
[2025-01-29 03:37] LABS: Hematocrit 46.8 % (39.0-52.0); Hemoglobin 15.3 g/dL (13.0-18.0); Mean Corp Hgb Conc. 32.7 g/dL (33.0-37.0); Mean Corpuscular Hgb 31.9 pg (27.0-31.0); Mean Corpuscular Volume 97.7 fL (80.0-94.0); Mean Platelet Volume 10.4 fL (7.4-10.4); Platelet Count 219 10^3/uL (130-400); Red Blood Cell Count 4.79 10^6/uL (4.70-6.10); Red Cell Dist. Width 17.3 % (11.5-14.5); White Blood Cell Count 8.1 10^3/uL (4.8-10.8)
[2025-01-29 04:13] LABS: ALT (SGPT) 11 U/L (0-50); AST (SGOT) 27 U/L (17-59); Albumin 2.2 g/dl (3.5-5.0); Alkaline Phosphatase 69 U/L (38-126); Blood Urea Nitrogen 33 mg/dl (9-20); Carbon Dioxide 27 mmol/L (22-30); Chloride 104 mmol/L (98-107); Estimated Creatinine Clearance 98 ml/min; Glucose 150 mg/dl (70-99); Potassium 4.1 mmol/L (3.5-5.1); Sodium 137 mmol/L (135-145); Total Bilirubin 5.3 mg/dl (0.2-1.3); Total Protein 4.6 g/dl (6.3-8.2); eGFR > 60.00
--- NOTE | 2025-01-29 04:24 | PTCARENOTE ---
Patient remains on amio, heparin, levo, prop, and fentanyl gtts. Insulin on hold per protocol. Last bg 162. Patients aquacell dressing remains intact with minimal addition shadowing since start of shift. Will continue to monitor.
[2025-01-29] MEDS: ZOSYN 100 IV ×3 (05:19→17:24)
[2025-01-29 05:22] LABS: Glucose - Point of Care 138 mg/dl (70-99)
[2025-01-29 05:44] LABS: APTT 60.9 Sec (23.4-35.0)
--- NOTE | 2025-01-29 05:59 | PTCARENOTE ---
Reviewed PTT 60.9 this am and confirmed with JEANINE Silverman, order to increase Heparin gtt to 2400u/24ml/hr. Will continue to monitor.
[2025-01-29 06:00] VITALS: BMI 37.3
[2025-01-29 07:00] VITALS: BP_SYST 126
[2025-01-29 07:05] LABS: Glucose - Point of Care 155 mg/dl (70-99)
[2025-01-29 07:45] VITALS: BP_SYST 123
[2025-01-29] MEDS: CORDARONE 518 MG IV (07:47)
[2025-01-29] MEDS: PROTONIX IV 40 MG IV (07:48)
[2025-01-29] MEDS: NSS (PRESERVATIVE FREE) 10 ML IV (07:48)
[2025-01-29] MEDS: SUBLIMAZE 100 IV (07:49)
--- NOTE | 2025-01-29 08:26 | W.PN.VS ---
Addendum entered and electronically signed by Elvis Wilkerson III, MD 01/29/25 10:42:
This patient was seen and examined in collaboration with JEANINE Li. I agree with the history and physical exam as well as the assessment and plan. I have the following additions:
Spoke with Dr. Wyatt yesterday following return to the OR
Patient making improvements overall
Continue heparin drip with therapeutic PTT goal
Cardiology plan
Signed:
Elvis Wilkerson III, MD
[facility] V[facility] Surgery
[phone] (bcff)
Original Note:
Today's Communication / Plan
-
Patient seen and examined at bedside with Dr. Elvis Wilkerson III, below plan reviewed with attending.
Assessment/Plan
-
Assessment: 59-year-old male POD #2 Exploratory laparotomy, thromboembolectomy of superior mesenteric artery, and placement of AbThera VAC, status post OR with colorectal surgery with abdominal closure
Plan:
Continue anticoagulation
Subjective Data
-
Date of Service: January 29, 2025
Patient remains intubated and sedated, seen at bedside.
Objective Data
-
Vital Signs
Temp Pulse Resp BP Pulse Ox
98.8 F 102 16 114/91 98
01/28/25 23:32 01/29/25 04:00 01/29/25 04:00 01/28/25 08:55 01/29/25 04:00
Intake and Output
01/28/25 01/29/25 01/30/25
06:59 06:59 06:59
Intake Total 1829.2 / 1913.6 2289.67 / 2289.67
Output Total 4239 / 4239 1490 / 1490
Balance -2409.8 / -2325.4 799.67 / 799.67
Intake:
IV fluids (Total) 1729.2 / 1813.6 1889.67 / 1889.67
Amiodarone 367.0 / 367.0
Cardizem 200 / 215 35 / 35
Fentanyl 42.5 / 47.5 105 / 105
Heparin 442 / 464 480 / 480
Insulin 32.6 / 33.6 10.4 / 10.4
Levophed 750.2 / 780.2 683.2 / 683.2
Propofol 261.9 / 273.3 209.07 / 209.07
Vasopressin 0 / 0
IV piggybacks 100 / 100 400 / 400
Output:
Drain Output (Total) 1899
Abdomen Wound Vac 1899
Gastrointestinal tube output ( 300 / 300 250 / 250
Total)
[place] Sump 300 / 300 250 / 250
Urine, Wilkerson 2038 / 2038 1240 / 1240
Lab Results
01/29/25 03:22
01/29/25 03:22
Calcium 8.0 mg/dl (8.4-10.2) L 01/29/25 03:22
Magnesium 2.0 mg/dl (1.6-2.3) 01/29/25 03:22
Total Bilirubin 5.3 mg/dl (0.2-1.3) H D 01/29/25 03:22
AST 27 U/L (17-59) 01/29/25 03:22
ALT 11 U/L (0-50) 01/29/25 03:22
Alkaline Phosphatase 69 U/L (38-126) 01/29/25 03:22
Total Protein 4.6 g/dl (6.3-8.2) L 01/29/25 03:22
Albumin 2.2 g/dl (3.5-5.0) L 01/29/25 03:22
Physical Exam
-
Intubated and sedated
Heart rate low 100s
ABD dressing CDI
Bilateral feet warm
[2025-01-29 08:27] LABS: Glucose - Point of Care 145 mg/dl (70-99)
--- NOTE | 2025-01-29 08:30 | PTCARENOTE ---
Received patient at 0700. Patient remains intubated with #8 at 25. Patient comfortable, Propofol and fentanyl infusing. Patient afib on the monitor, weak pedal pulses, use of doppler required. Weak radial pulses as well. Lung sounds diminished
throughout. Patient on A/C 18/500/40%/5 at start of shift, pox between 96-98%. BS absent x4 quadrants. Aquacell dressing c/d/i, small areas of shadding noted and outlined. Skin otherwise intact. NGT to right nare with LWIS draining brown liquid.
Wilkerson cath intact and draining cloudy, yellow/pink urine. Patient continues with Amiodarone gtt, Heparin gtt, Levo gtt, Propofol and Fentanyl gtts. Will continue to monitor patient closely.
--- NOTE | 2025-01-29 08:36 | W.PN.CARDCBS ---
Today's Communication / Plan
-
Continue heparin, eventual Eliquis
Continue IV amiodarone to assist with rate control
Start IV beta-renee when pressors have been stopped
Will need IV diuretics when pressors are weaned
Compliance with rate controlling meds, anticoagulation will be the troy to prevent additional cardioembolic events
Will need close outpatient cardiac follow-up for management
Impression / Plan
-
Primary Precision Assembler: Dr. Pickett
Primary EP: Dr Solorio
PCP: Dr Peñaloza
Patient with history of cardioembolic occlusion of left common femoral artery 06/2023, right iliac artery occlusion status post thromboembolectomy 10/29/2024. During that time was also noted to be in persistent rapid A-fib initially discovered
07/2023 with history of noncompliance with medications. Also with known low EF suspected tachycardia mediated status post cath 05/2024 with nonobstructive CAD.
He presented back to the ED 11/2024 due to generalized malaise and was noted to have a seroma of his right groin s/p I/D and wound vac. He was also found to be in decompensated heart failure with reduced ejection fraction and have atrial
fibrillation with rapid ventricular rates. Plan for LUIS ENRIQUE cardioversion but LUIS ENRIQUE 01/04/2025 showed massive occlusive thrombus in left atrial appendage. Most recently, presented on 01/27/2025 with acute onset abdominal pain found to have acute
mesenteric ischemia with SMA occlusion, went to OR for exploratory laparotomy and SMA thrombectomy. Postop shock with metabolic/lactic acidosis, on Levophed and intubated. Cardiology consulted for management of atrial fibrillation and heart failure
Assessment:
Acute mesenteric ischemia with SMA occlusion, status post exploratory lap and SMA thrombectomy 12/30/2024
Acute hypoxemic respiratory failure
Shock with metabolic/lactic acidosis
Right groin seroma
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
Persistent atrial fibrillation, first discovered July 2023
elevated troponin
Chronic OAC with eliquis
Left atrial appendage thrombus by LUIS ENRIQUE 12/2024
Chronic HFrEF
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
NSVT
Hyperthyroidism
Noncompliance
Depression
History of ETOH and tobacco abuse
Obesity
Ventilator dependent respiratory failure
ECHO 04/04/2024: EF 10 to 15%, severe global hypokinesis, mild MR, trace TR, PAP 30 to 33 mmHg
Cardiac catheterization 05/22/2024: Nonobstructive coronary disease with normal to mildly elevated right and left-sided filling pressures with normal cardiac output
Echocardiogram 10/30/2024: Severely dilated left ventricle, severely reduced LV systolic function, global hypokinesis with ejection fraction of 5-10%, moderate to severe eccentric TR with PA pressure of 30-35 mmHg, small pericardial effusion.
LUIS ENRIQUE 01/04/2025: LVEF 10 to 15%, definite massive occlusive thrombus in left atrial appendage, mild MR, moderate to severe TR
Plan:
All things considered, he is relatively stable at the present time from a cardiac standpoint
No overt evidence of heart failure on exam. Eventually as norepinephrine is weaned he will need to restart diuretics.
Regarding cardioembolic SMA occlusion/ischemic bowel status post SMA embolectomy with second look laparotomy, abdomen is now closed, no evidence of necrotic bowel, as he recovers, will gradually reintroduce GDMT for severe LV dysfunction.
Regarding 3 cardioembolic events over the last 9 months, this is related to noncompliance and presumably he will now be in a controlled environment for the foreseeable future where anticoagulants can be consistently administered. In the setting of
a massive left atrial appendage thrombus he is not a candidate for Watchman or LA appendage clip for the foreseeable future
His severe LV dysfunction is likely tachycardia mediated and related to noncompliance. As above, since he will presumably require a skilled facility, medications will hopefully be reliably administered and might permit recovery of his ejection
fraction. Ultimately, he should potentially be considered for an ICD if LV function does not improve, but given his inadequate social resources, the utility of this may be limited/contraindicated.
His cardiomyopathy was nonischemic by cardiac catheterization in 2023, so elevated troponin is non-MD myocardial injury.
Management of respiratory failure/ventilator per hospitalist/personal chef
Discussed with personal chef and nursing
Progress Note - Precision Assembler
Subjective
Date of Service: January 29, 2025:
Patient sedated, appears comfortable
Medications: IV heparin, propofol, norepinephrine, amiodarone, fentanyl, IV insulin, metoprolol on hold, methimazole on hold, pantoprazole 40 mg IV daily, furosemide 40 mg IV twice daily on hold, amiodarone 200 mg daily on hold, Zosyn, insulin
114/91, pulse 102, respiratory rate 16, afebrile, sats 98%, weight is 124.6 kg, if accurate down 0.5 kg, was 126.2 kg on admission, intake and output +0.75 L, intubated, poorly responsive, lungs relatively clear, irregular rate and rhythm, around
100, JVD difficult to assess, no obvious murmurs, abdomen with midline incision that is intact, abdomen is soft, extremities without much edema
Hemoglobin 15.3 white count 8.1, platelets 219
pH 7.44, P CO2 40, pO2 92, bicarb 27, BUN and creatinine 33 and 1.1, potassium 4.1, troponin 0.081, peak was 0.14, proBNP was 4580 on the , which is around baseline
Objective
Labs:
01/29/25 03:22
01/29/25 03:22
Labs
Hgb 15.3 g/dL (13.0-18.0) 01/29/25 03:22
Hct 46.8 % (39.0-52.0) 01/29/25 03:22
Plt Count 219 10^3/uL (130-400) 01/29/25 03:22
PT 18.0 Sec (11.4-14.6) H 01/28/25 06:36
INR 1.46 01/28/25 06:36
APTT 60.9 Sec (23.4-35.0) H 01/29/25 05:12
Sodium 137 mmol/L (135-145) 01/29/25 03:22
Potassium 4.1 mmol/L (3.5-5.1) 01/29/25 03:22
BUN 33 mg/dl (9-20) H 01/29/25 03:22
Creatinine 1.1 mg/dL (0.7-1.3) 01/29/25 03:22
Glucose 150 mg/dl (70-99) H 01/29/25 03:22
Troponins
01/27/25 01/27/25 01/27/25
00:31 10:29 16:20
Troponin I 0.034 0.112 H* 0.138 H*
01/27/25 01/28/25 01/28/25
21:32 03:31 11:55
Troponin I 0.140 H* 0.132 H* 0.114 H*
01/28/25 01/28/25
15:30 22:10
Troponin I Cancelled 0.081 H*
Vital Signs and I&O:
Vital Signs
Temp Pulse Resp BP Pulse Ox
37.1 C 102 16 114/91 98
01/28/25 23:32 01/29/25 04:00 01/29/25 04:00 01/28/25 08:55 01/29/25 04:00
Vital Signs
Temp Pulse Resp BP Pulse Ox
37.1 C 102 16 114/91 98
01/28/25 23:32 01/29/25 04:00 01/29/25 04:00 01/28/25 08:55 01/29/25 04:00
Intake & Output
01/27/25 01/28/25 01/29/25 01/30/25
07:59 07:59 07:59 07:59
Intake Total 3.6 1992.0 /
Output Total 4239 / 4354 1490 / 1490
Balance -2325.4 / -2361.0 715. /
Physical Exam
Physical Exam
See above
--- NOTE | 2025-01-29 08:49 | PN.DE.MGMTRT ---
Insulin Management
- -
01/29/2025: Diabetes Management Consult Follow up
59 year old male with PMH: A-fib, hyperthyroidism, chronic HFrEF, LLE arterial occlusion due to thromboembolism (06/2023), h/o acute limb ischemia of RLE with thromboembolic occlusion of the right iliac system s/p thromboembolectomy of the right
iliac system + thromboembolectomy of the right SFA, popliteal artery.
Patient presented to the ED with abdominal pain and SOB. CTA showed thrombosis of the SMA s/p ex lap with thromboembolectomy of SMA and placement of an AbThera Vac 01/27/25. Postoperatively he was started on the glycemic protocol due to
hyperglycemia. 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 A1C 6.3%, Cr 1.1, eGFR >60.
Pt remains intubated and sedated, insulin infusion off due to glucose < 100. Glucose remains stable, to start moderate corrective insulin Q6 hours.
Discussed with nurse.
Will cont to follow.
Diabetes History
- -
Type of Diabetes: 2
Pre-Admission Diabetes Regimen
01/28/25 01/29/25
11:55 03:22
Creatinine 1.2 1.1
Lab Results
Hemoglobin A1c 6.3 % (4.0-5.6) H 01/27/25 14:42
Insulin Pump Settings
IP Diabetes Regimen
01/28/25 01/28/25 01/28/25
08:54 11:19 11:55
Glucose 133 H
POC Glucose 120 H 117 H
01/28/25 01/28/25 01/28/25
13:07 17:42 19:08
Glucose
POC Glucose 118 H 117 H 92
01/28/25 01/28/25 01/28/25
20:11 21:07 22:00
Glucose
POC Glucose 131 H 137 H 114 H
01/28/25 01/29/2525
23:03 01:03 03:00
Glucose
POC Glucose 140 H 131 H 162 H
01/29/25 01/29/25 01/29/25
03:22 05:10 06:53
Glucose 150 H
POC Glucose 138 H 155 H
01/29/25
08:16
Glucose
POC Glucose 145 H
Patient Education
--- NOTE | 2025-01-29 09:07 | W.PN.HOSP.TC ---
Today's Communication/Plan
-
see plan
Assessment / Plan
Assessment / Plan
pt is a 59 year old male with hx dilated cardiomyopathy, EF 5-10%, afib with known LV thrombus on AC non-compliant, left lower extremity arterial occlusion due to thromboembolism 07/06 and acute limb ischemia RLE s/p thromboembolectomy 11/06
presents to the ER with abdominal pain and shortness of breath. CT A/P showed thrombosis of the SMA s/p ex lap with thromboembolectomy of SMA and placement of an AbThera Vac 01/27/25.
CT A/P
IMPRESSION:
Thrombosis of superior mesenteric artery branches, new since prior examination.
No bowel thickening or pneumatosis to suggest bowel ischemia.
No acute inflammatory changes within the abdomen or pelvis.
Mild diverticulosis without acute diverticulitis.
Stable fatty infiltration of liver. Stable low-attenuation right adrenal mass 1.3 cm, most consistent with benign adenoma.
Hazy attenuation in the dependent lung bases. Groundglass attenuation. Small bilateral pleural effusions. Possible mild pulmonary edema and/or atelectasis.
LUIS ENRIQUE 01/04/25
CONCLUSIONS
Left ventricle is mildly dilated. Severely reduced left ventricular systolic
function. Global hypokinesis. Normal left ventricular wall thickness. Left
ventricular ejection fraction is 10-15%.
Normal right ventricular size and function.
Moderately dilated left atrium.
Mildly dilated right atrium.
Left atrial appendage is mildly dilated. Definite massive occlusive thrombus in
the left atrial appendage. Peak velocities within the left atrial appendage are
30cm/sec.
Mild mitral regurgitation.
Moderate to severe tricuspid regurgitation.
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
Hypoxic Resp Failure
-appreciate vascular, CRS, It Data Architect consults
-s/p OR 01/27/25; thromboembolectomy of SMA, placement ABThera Vac
-s/p OR 01/28: Procedure Performed: Exploratory laparotomy, mesenteric angiography, partial omentectomy, tap block, abdominal closure
-IV heparin gtt
-IV Zosyn
-patient remains intubated; vent management per It Data Architect
-continue IV Levophed - wean as able
hypokalemia- repleted
permanent AFIB with RVR - rate above 120s-
-IV amiodarone gtt
-patient is on IV heparin gtt
acute on chronic HFrEF (EF 5-10%)--holding lasix/entresto
monitor volume status closely
hyperthyroid--new diagnosis last admission?--on methimazole but would hold for now--consideration for checking TFTs but pt critically ill....
PAD--active smoker--MUST quit--had wound dehiscence and R iliac thromboembolectomy 11/06, OR washout 11/29/24
DVT proph--IV heparin drip
Code status - Full Code
Total Critical Care Time 40 minutes. I was immediately available to the patient and staff. I personally examined, reviewed labs, diagnostic images/reports, interpretations, treatment plans, discussed patient care with other providers and family
or caregivers (if patient is unable to make decisions), entered orders as appropriate and documented the medical record.
Anticipated Discharge: > 48 hours
Subjective/Interval History
-
Date of Service: January 29, 2025
intubated, sedated
Objective Data
-
Labs:
Laboratory Results
01/28/25 01/29/25 01/29/25
22:10 03:22 05:12
WBC 8.1
Hgb 15.3
Hct 46.8
Plt Count 219
APTT 56.2 H 60.9 H
HCO3 27.2
Sodium 137
Potassium 4.1
Chloride 104
Carbon Dioxide 27
BUN 33 H
Creatinine 1.1
Glucose 150 H
Calcium 8.0 L
Total Bilirubin 5.3 H D
AST 27
ALT 11
Alkaline Phosphatase 69
01/29/25
11:55
WBC
Hgb
Hct
Plt Count
APTT Pending
HCO3
Sodium
Potassium
Chloride
Carbon Dioxide
BUN
Creatinine
Glucose
Calcium
Total Bilirubin
AST
ALT
Alkaline Phosphatase
Vital Signs:
Vital Signs
Temp Pulse Resp BP Pulse Ox
99.9 F 101 18 114/91 97
01/29/25 08:00 01/29/25 08:30 01/29/25 08:30 01/28/25 08:55 01/29/25 08:38
I&O
01/28/25 01/29/25 01/30/25
06:59 06:59 06:59
Intake Total 1829.2 / 1913.6 2289.67 / 2289.67
Output Total 4239 / 4239 1490 / 1490
Balance -2409.8 / -2325.4 799.67 / 799.67
Review of Systems
-
Unable to obtain full review of systems at this time due to: Patient Intubation
History Source: Patient
Physical Exam
-
General: Well Developed, Well Nourished and Intubated
HEENT: Normocephalic and Atraumatic
Respiratory: Clear to Auscultation; Negative Wheezes, Rales, Rhonchi or Crackles
Cardiac: Irregular Rhythm and Tachycardic
GI: Soft, Nontender and Other (abdomen gauze with mild oozing); Negative Normal Bowel Sounds (no bowel sounds)
Genito-urinary: [place]
Musculoskeletal: No Clubbing and No Cyanosis; Negative No Edema (2+ LE edema bilaterally)
Skin: Warm
Neuro: Awake
Psych: Calm
Data Reviewed
-
Diagnostic Radiology: Report Reviewed by me
Labs: Labs Reviewed by me
[2025-01-29] MEDS: HEPARIN 25000 UNITS/250 ML IV ×2 (10:12→20:14)
--- NOTE | 2025-01-29 10:20 | W.PN.CRS1 ---
Today's Communication / Plan
-
diet advance post extubation
daily dressing changes
Assessment/Plan
-
POD#1 Exploratory laparotomy, mesenteric angiography, partial omentectomy, tap block, abdominal closure
Hgb 15.3. WBC 8.1.
Intubated/sedated
on Levophed gtt
-No plans for further surgery at this time
-Extubate per primary team
-Diet advancement when extubated
-Daily dressing changes (tree underneath)
Subjective Data
Procedure
01/27/2025- Ex lap, SMA embolectomy
Subjective Data
Date of Service: January 29, 2025
Patient is intubated and sedated.
Objective Data
-
Vital Signs
Temp Pulse Resp BP Pulse Ox
99.9 F 99 18 114/91 97
01/29/25 08:00 01/29/25 09:00 01/29/25 09:00 01/28/25 08:55 01/29/25 09:00
Intake & Output
01/28/25 01/29/25 01/30/25
06:59 06:59 06:59
Intake Total 1829.2 / 1913.6 2289.67 / 2382.57 362.2 / 362.2
Output Total 4239 / 4239 1490 / 1520 315 / 315
Balance -2409.8 / -2325.4 799.67 / 862.57 47.2 / 47.2
Intake:
IV fluids (Total) 1729.2 / 1813.6 1889.67 / 1982.57 362.2 / 362.2
Amiodarone 367.0 / 383.7 66.8 / 66.8
Cardizem 200 / 215 35 / 35
Fentanyl 42.5 / 47.5 105 / 110 20 / 20
Heparin 442 / 464 480 / 506 104 / 104
Insulin 32.6 / 33.6 10.4 / 10.4
Levophed 750.2 / 780.2 683.2 / 717.0 125.8 / 125.8
Propofol 261.9 / 273.3 209.07 / 220.47 45.6 / 45.6
Vasopressin 0 / 0
IV piggybacks 100 / 100 400 / 400
Output:
Drain Output (Total) 1899
Abdomen Wound Vac 1899
Gastrointestinal tube output ( 300 / 300 250 / 250
Total)
[place] Sump 300 / 300 250 / 250
Urine, Wilkerson 2038 1240 / 1270 315 / 315
Lab Results
01/29/25 03:22
01/29/25 03:22
Physical Exam
-
General: No Acute Distress and Other (intubated/sedated)
Abdomen: Soft and Non Distended
Wound: Dressing in Place
--- NOTE | 2025-01-29 10:31 | W.PN.ANS.POP ---
Anesthesia Post Operative
- Anesthesia Post Op Note
Vital Signs Stable-See Nursing Note: Yes (stable on significant norepinephrine continuous infusion)
Airway Patent: Yes
Adequate Pain Control: Yes
Change in Mental Status: No
Current Postoperative Nausea & Vomiting: No
Anesthesia Complications: No
General Anesthetic Recall: No
Unplanned Admission: No
Post Op Hydration Adequate: Yes
[2025-01-29] MEDS: SUBLIMAZE 50 MCG IV (11:07)
--- NOTE | 2025-01-29 11:40 | PTCARENOTE ---
SAT stopped due to vent dyssynchrony, pt following commands, pulling at gown and trying to reach ETT. Pt reoriented.
[2025-01-29 11:50] VITALS: BP_SYST 122
[2025-01-29 11:53] LABS: Glucose - Point of Care 123 mg/dl (70-99)
[2025-01-29] MEDS: NOVOLOG FLEXPEN-MODERATE RESISTANCE SC ×2 (11:56→17:50)
[2025-01-29 12:29] LABS: APTT 77.8 Sec (23.4-35.0)
--- NOTE | 2025-01-29 14:05 | CM ---
CM following re: discharge planning.
Reviewed pt's chart, met with pt. Pt's mother and sister Keyla at bedside.
Pt is a 59 year old male, admitted with primary dx of POD#1 Exploratory laparotomy, mesenteric angiography, partial omentectomy, tap block, abdominal closure. Pt remains intubated, continue supportive care.
Pt is well known to this CM from previous admission. Per sister pt lives in an apartment/rented room, , 2nd floor, 2FF of steps to get to his apartment. Pt has no children, has 4 brothers, 3 sisters and a mother, one brother lives with mother and
brother Jag lives in [facility] [place]. Pt has supportive friend Angie. Pt dis independent in all areas [employer]GE [employer] UPP[employer], was at [facility] in the past.
PT and OT will evaluate the pt to determine a level of care at discharge.
PCP: Edmundo Hammond
Pharmacy: [facility]
D/C plan: uncertain at this time and will depend on pt's progress.
CM will follow with discharge plan updates as hospitalization progresses
[2025-01-29 14:08] VITALS: BP_SYST 111
--- NOTE | 2025-01-29 14:31 | W.PN.INTV ---
Today's Communication / Plan
Recommendations
-Continue to wean Levophed as tolerated
-Once Levophed further down, will start SBT, goal to extubate in next 24 hours
-N.p.o. pending bowel function return
-CXR and ABG in AM
Assessment
-
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
thromboembolic occlusion of the right iliac system s/p thromboembolectomy of the right iliac system + thromboembolectomy of the right SFA, popliteal artery and profundofemoral artery (10/2024) who presents with abdominal pain and SOB. 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
usual state of health VERTICAL BORER when he developed sudden periumbilical abdominal pain without nausea or vomiting. In the ER he was afebrile to 98.2 �F, pulse rate 135, breathing at 12 breaths/min, BP 162/110 and saturating 97% on room air. Initial labs
showed potassium 2.9, lactate 5.2, T. bili 2.1, and proBNP 4580. CTA A/P showed thrombosis of the SMA with small bilateral pleural effusions and groundglass attenuation in the bases of the lungs. He was given 40 mg IV Lasix in the ER, Dilaudid 0.5
mg, potassium repletion, 1 L NS 0.9% and Zofran. Vascular surgery was consulted and given his significant abdominal pain of acute onset he was consented for the OR. He underwent exploratory laparotomy with thromboembolectomy of superior mesenteric
artery and placement of an AbThera VAC. Postoperatively he returned to the ICU intubated, and Agent services consulted for additional management/recommendations.
Chronic conditions VERTICAL BORER: Paroxysmal a-fib on Eliquis, hyperthyroidism, chronic HFrEF, left lower extremity arterial occlusion due to thromboembolism (06/2023)
Last 24-hour events:
Fluid balance, +844 mL
-7.44, 40, 92 on volume AC, 500 x 18 x 5 at 40% FiO2, chest x-ray question left lower lobe atelectasis
Current drips, propofol at 15, fentanyl at 50, Levophed at 16, heparin and amiodarone infusion. Currently off insulin infusion.
-Good urine output, 3200 cc/h
Assessment and plan:
#1. Acute mesenteric ischemia with SMA occlusion, likely embolic, s/p ex lap with SMA thrombectomy, followed by delayed abdominal wall closure
-Currently on heparin infusion
#2. Shock.
-This is related to acute mesenteric ischemia, infection cannot be ruled out
-Currently on Levophed, continue. Off vasopressin
-Continue Zosyn, MRSA screen negative
-Cardiac shock also in differential considering low ejection fraction of 10 to 15%.
-Off Cardizem
-Vasoplegia also on differential, continue to wean Levophed bed as tolerated
#3. Chronic heart failure with reduced ejection fraction, LVEF 10 to 15% with history of occlusive thrombus in MELISSA in the past
-Likely the source of embolic event to SMA
-Monitor input and output closely
-Chest x-ray in a.m.
#4. Atrial fibrillation with rapid ventricular rate
-off Cardizem in view of low EF
-Continue amiodarone infusion
-Cardiology service on case
-If worsening hemodynamic instability noted, might need emergent cardioversion
-Heparin drip for anticoagulation
#5. Hyperglycemia
-Insulin infusion
Gi Prophylaxis with IV PPI
Critical care statement: A total of 30 minutes of critical care time was provided for this patient today. This includes management of unstable vital signs, evaluation of the patient at bedside, reviewing the patient's pertinent medical records
including radiographs, microbiology, laboratory evaluations, and discussion with primary team, consultants, pharmacy, nutrition, physical therapy, case management, charge nurse, critical care nursing, and respiratory therapy.
Data:
CTA Abd/Pelvis w/wo IV contrast 01/27/2025:
Thrombosis of superior mesenteric artery branches, new since prior examination.
No bowel thickening or pneumatosis to suggest bowel ischemia.
No acute inflammatory changes within the abdomen or pelvis.
Mild diverticulosis without acute diverticulitis.
Stable fatty infiltration of liver. Stable low-attenuation right adrenal mass 1.3 cm, most consistent with benign adenoma.
Hazy attenuation in the dependent lung bases. Groundglass attenuation. Small bilateral pleural effusions. Possible mild pulmonary edema and/or atelectasis.
Subjective Dataa
Subjective Data
Date of Service:
Date of Service: January 29, 2025
Subjective:
Patient intubated, mechanically ventilated.
Review of Systems
General: Unobtainable - Sedation
Objective Data
Data Reviewed
Vital Signs / I&O / Oxygen:
Vital Signs
Temp Pulse Resp BP Pulse Ox
100.0 F 101 18 114/91 97
01/29/25 11:14 01/29/25 14:00 01/29/25 14:00 01/28/25 08:55 01/29/25 14:00
Intake and Output
01/28/25 01/29/25 01/30/25
06:59 06:59 06:59
Intake Total 1829.2 / 1913.6 2289.67 / 2382.57 692.8 / 692.8
Output Total 4239 / 4239 1490 / 1520 595 / 595
Balance -2409.8 / -2325.4 799.67 / 862.57 97.8 / 97.8
SaO2 [A/C] 96
SaO2 97
Physical Exam
General: Comfortable
HEENT: Normocephalic
Cardiovascular: Irregular Rhythm
Respiratory: Clear
GI: Normal Bowel Sounds (Absent bowel sounds)
Neurology: Other (Sedated)
Skin: Warm
Labs/Micro/Reports
Lab Data
01/29/25 03:22
01/29/25 03:22
Laboratory Results
03/01/29/25 01/29/25
22:10 03:22 05:12
APTT 56.2 H 60.9 H
pH 7.44
pCO2 40
pO2 92
HCO3 27.2
O2 Delivery Level 60%
01/29/25
12:00
APTT 77.8 H
pH
pCO2
pO2
HCO3
O2 Delivery Level
Microbiology
01/27/25 12:14 Blood/Venous Blood Culture - Preliminary
No Growth in 48 hours- Final report to follow
01/27/25 21:32 Nose MRSA Screen - Final
No Methicillin Resistant Staphylococcus aureus isolated.
[2025-01-29 16:42] VITALS: BP_SYST 117
[2025-01-29 17:58] LABS: Glucose - Point of Care 119 mg/dl (70-99)
--- NOTE | 2025-01-29 18:16 | PTCARENOTE ---
Assessment unchanged. VSS, able to wean levophed throughout the day. Continuing q2H turn and Q4H oral care. Reached out to colorectal surgery to discuss dressing changes. MANISHA Gray states dressing changes to begin tomorrow.
[2025-01-29 18:18] LABS: APTT 70.1 Sec (23.4-35.0)
[2025-01-29 22:00] VITALS: BP_SYST 134
[2025-01-30] VITALS (12 sets, daily range): BP systolic 94–122; BP diastolic 63–102; BMI 37.6
[2025-01-30] MEDS: SUBLIMAZE 50 MCG IV (00:13)
[2025-01-30] MEDS: ZOSYN 100 IV ×5 (00:14→23:44)
[2025-01-30 00:42] LABS: Glucose - Point of Care 142 mg/dl (70-99)
[2025-01-30] MEDS: DIPRIVAN 100 IV (00:47)
--- NOTE | 2025-01-30 00:56 | PTCARENOTE ---
Addendum entered by Ami Brennan RN 01/30/25 00:56:
correction, L radial a-line
Original Note:
Pt received at 19:00. Intubated and sedated. Opens eyes, tracks, follows some simple commands--squeezes hands/nods. Agitated when awake. afib, 90s-low 100s. R radial jonh zeroed and transduced. +2 generalized edema, DP and PT pulses present with
doppler. #8 ETT, 25cm at the lip. AC 18/500/40%/+5. Suctions for thick white to robles secretions via ETT. NGT to LIWS wtih brown output. Wilkerson in place, draining cloudy nicole urine. Continues on prop, fent, levo, amio, and heparin gtts. Safe
environment maintained, pt repositioned.
[2025-01-30 00:57] LABS: APTT 90.3 Sec (23.4-35.0)
[2025-01-30] MEDS: NOVOLOG FLEXPEN-MODERATE RESISTANCE SC ×5 (00:57→23:53)
[2025-01-30 05:14] LABS: Hematocrit 42.5 % (39.0-52.0); Hemoglobin 13.8 g/dL (13.0-18.0); Mean Corp Hgb Conc. 32.5 g/dL (33.0-37.0); Mean Corpuscular Hgb 31.7 pg (27.0-31.0); Mean Corpuscular Volume 97.7 fL (80.0-94.0); Mean Platelet Volume 10.9 fL (7.4-10.4); Platelet Count 200 10^3/uL (130-400); Red Blood Cell Count 4.35 10^6/uL (4.70-6.10); Red Cell Dist. Width 17.5 % (11.5-14.5); White Blood Cell Count 10.9 10^3/uL (4.8-10.8)
[2025-01-30 05:15] LABS: B.E. 4.2 mmol/L; HCO3 28.4 mmol/L (21-28); O2 Saturation % 99.8 % (94-98); PCO2 40 mmHg (35-48); PO2 118 mmHg (83-108); pH 7.46 (7.35-7.45)
[2025-01-30 05:40] LABS: Blood Urea Nitrogen 32 mg/dl (9-20); Calcium 8.1 mg/dl (8.4-10.2); Carbon Dioxide 29 mmol/L (22-30); Chloride 105 mmol/L (98-107); Estimated Creatinine Clearance 97 ml/min; Glucose 136 mg/dl (70-99); Magnesium 2.2 mg/dl (1.6-2.3); Potassium 4.2 mmol/L (3.5-5.1); Sodium 137 mmol/L (135-145); Triglycerides 155 mg/dl (10-149); eGFR > 60.00
[2025-01-30] MEDS: HEPARIN 25000 UNITS/250 ML IV ×3 (05:58→23:11)
--- NOTE | 2025-01-30 06:51 | PTCARENOTE ---
Pt with thick robles/brown secretions via ETT approx 2am, clogged suction tubing. Lavaged by HOUSE MANAGER. No further episodes.
--- NOTE | 2025-01-30 06:52 | DOWNTIME ---
There was a [employer] Client Service Station Console Operator Downtime on 01/30/2025 from 0100 to 01/31/2024 at 0420 . Downtime documentation of patient's care, including medication administrations, has been reconciled in the electronic record per guidelines. Refer to the
patient's paper chart under the miscellaneous tab to see printed paper medication records and downtime forms.
[2025-01-30 07:00] LABS: APTT 58.2 Sec (23.4-35.0)
--- NOTE | 2025-01-30 07:52 | W.PN.VS ---
Addendum entered and electronically signed by Costa Holder MD 01/30/25 14:50:
Seen and examined earlier this a.m. with MANISHA Joseph. Agree with findings and plan as noted below.
Original Note:
Today's Communication / Plan
-
Seen and assessed with Dr. Holder
Assessment/Plan
-
Assessment: 59-year-old male POD #3 Exploratory laparotomy, thromboembolectomy of superior mesenteric artery, and placement of AbThera VAC, status post OR with colorectal surgery with abdominal closure
Plan:
Consult hematology-heparin drip subtherapeutic at 27/hr increased to 29 this morning
Subjective Data
-
Date of Service: January 30, 2025
Patient seen bedside this a.m. with Dr. Holder. Patient intubated and sedated. Heparin drip subtherapeutic.
Objective Data
-
Vital Signs
Temp Pulse Resp BP Pulse Ox
99 F 92 18 114/91 98
01/30/25 07:47 01/30/25 07:00 01/30/25 07:00 01/28/25 08:55 01/30/25 07:00
Intake and Output
01/29/25 01/30/25 01/31/25
06:59 06:59 06:59
Intake Total 2289.67 / 2382.57 8.2 / 2027.2
Output Total 1490 / 1520 1695 / 1695
Balance 799.67 / 862.57 333.2 / 333.2
Intake:
IV fluids (Total) 1889.67 / 1982.57 1928.2 / 1927.2
Amiodarone 367.0 / 383.7 400.8 / 400.8
Cardizem 35 / 35
Fentanyl 105 / 110 120 / 120
Heparin 480 / 506 636 / 636
Insulin 10.4 / 10.4
Levophed 683.2 / 717.0 509.2 / 509.2
Propofol 209.07 / 220.47 262.2 / 262.2
IV piggybacks 400 / 400 100 / 100
Output:
Gastrointestinal tube output ( 250 / 250 150 / 150
Total)
[place] 250 / 250 150 / 150
Urine, [place] 1240 / 1270 1545 / 1545
Lab Results
01/30/25 04:53
01/30/25 04:53
Calcium 8.1 mg/dl (8.4-10.2) L 01/30/25 04:53
Magnesium 2.2 mg/dl (1.6-2.3) 01/30/25 04:53
Total Bilirubin 5.3 mg/dl (0.2-1.3) H D 01/29/25 03:22
Direct Bilirubin 3.0 mg/dl (0.0-0.4) H 01/29/25 03:22
AST 27 U/L (17-59) 01/29/25 03:22
ALT 11 U/L (0-50) 01/29/25 03:22
Alkaline Phosphatase 69 U/L (38-126) 01/29/25 03:22
Total Protein 4.6 g/dl (6.3-8.2) L 01/29/25 03:22
Albumin 2.2 g/dl (3.5-5.0) L 01/29/25 03:22
Physical Exam
-
Intubated and sedated
Heart rate low 100s
ABD dressing CDI
Bilateral feet warm
--- NOTE | 2025-01-30 08:42 | W.PN.HOSP.TC ---
Today's Communication/Plan
-
see plan
Assessment / Plan
Assessment / Plan
pt is a 59 year old male with hx dilated cardiomyopathy, EF 5-10%, afib with known LV thrombus on AC non-compliant, left lower extremity arterial occlusion due to thromboembolism 07/06 and acute limb ischemia RLE s/p thromboembolectomy 11/06
presents to the ER with abdominal pain and shortness of breath. CT A/P showed thrombosis of the SMA s/p ex lap with thromboembolectomy of SMA and placement of an AbThera Vac 01/27/25.
CT A/P
IMPRESSION:
Thrombosis of superior mesenteric artery branches, new since prior examination.
No bowel thickening or pneumatosis to suggest bowel ischemia.
No acute inflammatory changes within the abdomen or pelvis.
Mild diverticulosis without acute diverticulitis.
Stable fatty infiltration of liver. Stable low-attenuation right adrenal mass 1.3 cm, most consistent with benign adenoma.
Hazy attenuation in the dependent lung bases. Groundglass attenuation. Small bilateral pleural effusions. Possible mild pulmonary edema and/or atelectasis.
LUIS ENRIQUE 01/04/25
CONCLUSIONS
Left ventricle is mildly dilated. Severely reduced left ventricular systolic
function. Global hypokinesis. Normal left ventricular wall thickness. Left
ventricular ejection fraction is 10-15%.
Normal right ventricular size and function.
Moderately dilated left atrium.
Mildly dilated right atrium.
Left atrial appendage is mildly dilated. Definite massive occlusive thrombus in
the left atrial appendage. Peak velocities within the left atrial appendage are
30cm/sec.
Mild mitral regurgitation.
Moderate to severe tricuspid regurgitation.
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
Hypoxic Resp Failure
-appreciate vascular, CRS, [employer] consults
-s/p OR 01/27/25; thromboembolectomy of SMA, placement ABThera Vac
-s/p OR 01/28: Procedure Performed: Exploratory laparotomy, mesenteric angiography, partial omentectomy, tap block, abdominal closure
-IV heparin gtt
-IV Zosyn
-patient remains intubated; vent management per [employer]
-continue IV Levophed - wean as able
hypokalemia- repleted
permanent AFIB with RVR - rate above 120s-
-IV amiodarone gtt
-patient is on IV heparin gtt
acute on chronic HFrEF (EF 5-10%)
-hold UNDERWRITING [employer]IST Entresto and Metop XL
-F/U cardiology recs on timing of resuming lasix
monitor volume status closely
hyperthyroid--new diagnosis last admission?--on methimazole but would hold for now--consideration for checking TFTs but pt critically ill....
PAD--active smoker--MUST quit--had wound dehiscence and R iliac thromboembolectomy 11/06, OR washout 11/29/24
DVT proph--IV heparin drip
Code status - Full Code
Total Critical Care Time 40 minutes. I was immediately available to the patient and staff. I personally examined, reviewed labs, diagnostic images/reports, interpretations, treatment plans, discussed patient care with other providers and family
or caregivers (if patient is unable to make decisions), entered orders as appropriate and documented the medical record.
Anticipated Discharge: > 48 hours
Subjective/Interval History
-
Date of Service: January 30, 2025
intubated
Objective Data
-
Labs:
Laboratory Results
01/30/25 01/30/25 01/30/25
00:38 04:53 06:38
WBC 10.9 H
Hgb 13.8
Hct 42.5
Plt Count 200
APTT 90.3 H 58.2 H
HCO3 28.4 H
Sodium 137
Potassium 4.2
Chloride 105
Carbon Dioxide 29
BUN 32 H
Creatinine 1.1
Glucose 136 H
Calcium 8.1 L
01/30/25
13:30
WBC
Hgb
Hct
Plt Count
APTT Pending
HCO3
Sodium
Potassium
Chloride
Carbon Dioxide
BUN
Creatinine
Glucose
Calcium
Vital Signs:
Vital Signs
Temp Pulse Resp BP Pulse Ox
99 F 92 18 114/91 98
01/30/25 07:47 01/30/25 07:00 01/30/25 07:00 01/28/25 08:55 01/30/25 07:00
I&O
01/29/25 01/30/25 01/31/25
06:59 06:59 06:59
Intake Total 2289.67 / 2382.57 2028.2 / 2103.3 138.6 / 138.6
Output Total 1490 / 1520 1695 / 1695 130 / 130
Balance 799.67 / 862.57 333.2 / 408.3 8.6 / 8.6
Review of Systems
-
Unable to obtain full review of systems at this time due to: Patient Intubation
History Source: Patient
Physical Exam
-
General: Well Developed, Well Nourished and Intubated
HEENT: Normocephalic and Atraumatic
Respiratory: Clear to Auscultation; Negative Wheezes, Rales, Rhonchi or Crackles
Cardiac: Irregular Rhythm and Tachycardic
GI: Soft, Nontender and Other (abdomen gauze with mild oozing); Negative Normal Bowel Sounds (no bowel sounds)
Genito-urinary: [place]
Musculoskeletal: No Clubbing and No Cyanosis; Negative No Edema (2+ LE edema bilaterally)
Skin: Warm
Neuro: Awake
Psych: Calm
Data Reviewed
-
Diagnostic Radiology: Report Reviewed by me
Labs: Labs Reviewed by me
[2025-01-30] MEDS: PROTONIX IV 40 MG IV (09:09)
[2025-01-30] MEDS: NSS (PRESERVATIVE FREE) 10 ML IV (09:09)
--- NOTE | 2025-01-30 09:20 | PN.DE.MGMTRT ---
Insulin Management
- -
01/30/2025: Diabetes Management Consult Follow up
59 year old male with PMH: A-fib, hyperthyroidism, chronic HFrEF, LLE arterial occlusion due to thromboembolism (06/2023), h/o acute limb ischemia of RLE with thromboembolic occlusion of the right iliac system s/p thromboembolectomy of the right
iliac system + thromboembolectomy of the right SFA, popliteal artery.
Patient presented to the ED with abdominal pain and SOB. CTA showed thrombosis of the SMA s/p ex lap with thromboembolectomy of SMA and placement of an AbThera Vac 01/27/25. Postoperatively he was started on the glycemic protocol due to
hyperglycemia. Was taking Jardiance 10mg daily RN PERIOPERATIVE. A1C 6.3%, Cr 1.1, eGFR >60.
Pt self extubated sedation off, insulin infusion off due to glucose < 100. Remains NPO Glucose remains stable, 119 to 155, with moderate corrective insulin Q6 hours.
Will make no change.
Will cont to follow.
Diabetes History
- -
Type of Diabetes: 2
Pre-Admission Diabetes Regimen
01/30/25
04:53
Creatinine 1.1
Lab Results
Hemoglobin A1c 6.3 % (4.0-5.6) H 01/27/25 14:42
Insulin Pump Settings
IP Diabetes Regimen
01/29/25 01/29/25 01/30/25
11:42 17:47 00:30
Glucose
POC Glucose 123 H 119 H 142 H
01/30/25
04:53
Glucose 136 H
POC Glucose
Patient Education
--- NOTE | 2025-01-30 09:25 | CON.ONC ---
Impression
Impression
59-year-old vasculopath, smoker, noncompliant with oral anticoagulation presents with acute abdominal pain and SMA occlusion requiring thromboembolectomy of superior mesenteric artery. Postoperatively he is intubated, septic on pressors, and on IV
heparin requiring high doses and has somewhat subtherapeutic APTT
IMP:
Vasculopathy
Thrombosis of superior mesenteric artery branches
Septic Shock in setting of ischemic bowel from SMA Thrombosis
Hypoxic ventilator dependent resp Failure
permanent AFIB with RVR - rate above 120s-
acute on chronic HFrEF (EF 5-10%)
hyperthyroid
PAD
active smoker
Plan
Plan
At this time, continue IV heparin with management per the IV heparin dosing protocol adjusted per the PTT .
Hypercoagulable testing with antiphospholipid antibody panel and anticardiolipin antibody panel negative for hypercoagulable state. Although I do not see that lupus anticoagulant testing was done. Will try to get that eventually although it may be
hard to interpret in light of his current clinical condition. Therefore, will not order now as it will not change acute management.
For now, also no comment on what chronic anticoagulation therapy should be in light of variety of factors including medical noncompliance.
Discussed with vascular surgery PA and will discuss with ICU pharmacist although she is currently tied up on hospital rounds.
We will help with the aPTT management in this patient who is quite large and may require higher doses of heparin including higher bolus and higher increases in infusion rate.
Patient History
History of Present Illness
Chief Complaint: Abdominal pain
Hematology consultation: For anticoagulation/heparin management from vascular surgery
HPI:
59-year-old male vasculopath with past medical history of nonischemic cardiomyopathy, heart failure reduced ejection fraction, peripheral arterial disease status post cardioembolic occlusion of the left common femoral artery with left lower
extremity limb ischemia requiring thrombectomy in 2022, more recently status post right iliac thromboembolectomy 10/2024, hospitalization November 2024 with wound dehiscence status post washout and groin evacuation/debridement of seromatous
collection and fibrinous exudate with wound VAC placement 11/29/2024, hyperthyroidism on methimazole, alcohol use, tobacco use, medication noncompliance.
He back to after he developed sudden periumbilical abdominal pain without nausea or vomiting. CTA A/P showed thrombosis of the SMA. Vascular surgery was consulted and given his significant abdominal pain of acute onset he was taken to the OR and
underwent exploratory laparotomy with thromboembolectomy of superior mesenteric artery and placement of an AbThera VAC. Postoperatively he returned to the ICU intubated. He then needed to go back to the operating room emergently on 01/28 for
exploratory laparotomy, angiography, partial omentectomy, tap block, abdominal closure. Currently he remains intubated and on Levophed for blood pressure management. Is on IV heparin and despite 29/hr, his PTT has been somewhat subtherapeutic
periodically. Us to help with anticoagulation management.
Patient is intubated and sedated.
Past-Medical/Surgical History
PMH:
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
Persistent atrial fibrillation, first discovered July 2023
Chronic OAC with Eliquis - medical noncompliance
Chronic HFrEF
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
NSVT
Hyperthyroidism
Noncompliance
Depression
History of ETOH and tobacco abuse
Obesity
PSH:
Left common femoral embolectomy 2022
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
SMA thrombectomy 01/27/2025
SH
Tobacco: Smoker
Drug: None
Personal: Single
Living: Alone
Family History
Family History: Reviewed & Not Pertinent
Allergies / Home Medications
Patient Medication
�Medication �Instructions �Recorded �Confirmed �Last Taken �Type
methimazole 10 mg tablet 10 mg PO DAILY Thyroid 04/11/24 01/04/25 01/04/25 06:30 History
potassium chloride 20 mEq 20 meq PO DAILY Electrolyte 05/22/24 01/04/25 01/04/25 06:30 History
tablet,extended release Repletion
apixaban 5 mg tablet (Eliquis) 5 mg PO BID Blood clot 11/06/24 01/04/25 01/04/25 06:30 Rx
prevention/tx #60 tabs
empagliflozin 10 mg tablet 10 mg PO DAILY Heart Failure #30 11/06/24 01/04/25 01/04/25 06:30 Rx
(Jardiance) tabs
furosemide 40 mg tablet (Lasix) 40 mg PO BID Fluid 11/06/24 01/04/25 01/04/25 06:30 Rx
Retention/Swelling #60 tabs
sacubitril 24 mg-valsartan 26 mg 1 tab PO BID Heart 11/06/24 01/04/25 01/04/25 06:30 Rx
tablet (Entresto) Disease/Condition #60 tabs
amiodarone 200 mg tablet 200 mg PO DAILY Arrhythmia 30 days 12/03/24 01/04/25 01/04/25 06:30 Rx
#30 tabs
metoprolol succinate 25 mg 75 mg (3 x 25 mg) PO BID Heart 12/03/24 01/04/25 01/04/25 06:30 Rx
tablet,extended release 24 hr Failure 30 days #180 tabs
amoxicillin 875 mg-potassium 1 tab PO Q12 Infection 10 days #20 12/05/24 01/04/25 01/03/25 08:00 Rx
clavulanate 125 mg tablet tabs
ciprofloxacin HCl 500 mg tablet 500 mg PO Q12H Infection 10 days 12/05/24 01/04/25 01/03/25 08:00 Rx
#20 tabs
Active Medications
Generic Name Dose Route Start Last Admin
Trade Name Freq PRN Reason Stop Dose Admin
Amiodarone HCl 200 mg 01/27/25 09:30 01/27/25 12:54
Amiodarone 200 Mg Tablet PO 02/24/25 09:29 Not Given
DAILY CRISTIANA
Dextrose 12.5 grams 01/29/25 12:00
Dextrose 50% (0.5 Grams/Ml) 50 Ml Syringe IV 02/26/25 11:59
[id number] PRN
hypoglycemia
Protocol
Fentanyl Citrate 50 mcg 01/27/25 09:53 01/30/25 00:13
Fentanyl (50 Mcg/Ml) 100 Mcg/2 Ml Ampul IV 02/10/25 09:52 50 mcg
[id number] PRN Administration
see protocol
Protocol
Furosemide 40 mg 01/27/25 09:30 01/27/25 12:53
Furosemide 40 Mg (10 Mg/Ml) 4 Ml Vial IV 02/24/25 09:29 Not Given
BID AT 0800,1600 CRISTIANA
Glucagon 1 mg 01/29/25 12:00
Glucagon 1 Mg Vial IM 02/26/25 11:59
PRN PRN
hypoglycemia - no IV access
Protocol
Hydromorphone HCl 0.5 mg 01/27/25 09:30
Hydromorphone 0.5 Mg/0.5 Ml Syringe IV 02/10/25 09:29
Q4HPRN PRN
severe pain
Heparin Sodium 25,000 units in 250 mls @ 0 mls/hr 01/27/25 09:15 01/30/25 05:58
Heparin 55081 Units/250 Ml IV 250 mls
PER PROTOCOL CRISTIANA Administration
Protocol
Per Protocol
Propofol 1,000,000 mcg in 100 mls @ 0 mls/hr 01/27/25 10:00 01/30/25 00:47
Diprivan IV 100 mls
PER PROTOCOL CRISTIANA Administration
Protocol
Per Protocol
Piperacillin Sod/Tazobactam Sod 4.5 gram in 100 mls @ 200 mls/hr 01/27/25 12:00 01/30/25 05:58
Zosyn IV 100 mls
Q6H CRISTIANA Administration
Norepinephrine Bitartrate 8 mg 258 mls @ 0 mls/hr 01/27/25 15:45 01/29/25 10:12
/ Sodium Chloride IV 258 mls
PER PROTOCOL CRISTIANA Administration
Protocol
Per Protocol
Amiodarone HCl 900 mg/ 518 mls @ 0 mls/hr 01/28/25 09:30 01/29/25 07:47
Dextrose/Water IV 518 mls
PER PROTOCOL CRISTIANA Administration
Protocol
Per Protocol
Fentanyl Citrate 1,000 mcg in 100 mls @ 0 mls/hr 01/28/25 18:15 01/29/25 07:49
Sublimaze IV 100 mls
PER PROTOCOL CRISTIANA Administration
Protocol
Per Protocol
Insulin Aspart 0 units 01/29/25 12:00 01/30/25 05:59
Insulin Aspart Moderate Resistance 300 Units/3 Ml Pen.Injctr SC 02/26/25 11:59 Not Given
Q6 CRISTIANA
Protocol
Methimazole 10 mg 01/27/25 10:00
Methimazole 5 Mg Tablet PO 02/24/25 09:59
DAILY CRISTIANA
Metoprolol Succinate 75 mg 01/27/25 09:30 01/27/25 12:54
Metoprolol 25 Mg Extended Release Tablet PO 02/24/25 09:29 Not Given
BID CRISTIANA
Pantoprazole Sodium 40 mg 01/27/25 09:30 01/30/25 09:09
Pantoprazole Sodium 40 Mg/10 Ml Vial IV 02/24/25 09:29 40 mg
DAILY CRISTIANA Administration
Sodium Chloride 0 flush 01/27/25 05:00 01/27/25 05:58
Sodium Chloride 0.9% (Flush) Syringe IV 02/24/25 04:59 1 flush
PER PROTOCOL CRISTIANA Administration
Sodium Chloride 10 ml 01/27/25 12:00 01/30/25 09:09
Sodium Chloride 0.9% (Preservative Free) 10 Ml Vial IV 02/24/25 11:59 10 ml
DAILY CRISTIANA Administration
Physical Exam
-
General: Intubated
Cardiology: S1 and S2
Pulmonary: Clear
Labs
Lab Results
WBC 10.9 10^3/uL (4.8-10.8) H 01/30/25 04:53
RBC 4.35 10^6/uL (4.70-6.10) L 01/30/25 04:53
Hgb 13.8 g/dL (13.0-18.0) 01/30/25 04:53
Hct 42.5 % (39.0-52.0) 01/30/25 04:53
MCV 97.7 fL (80.0-94.0) H 01/30/25 04:53
MCH 31.7 pg (27.0-31.0) H 01/30/25 04:53
MCHC 32.5 g/dL (33.0-37.0) L 01/30/25 04:53
RDW 17.5 % (11.5-14.5) H 01/30/25 04:53
Plt Count 200 10^3/uL (130-400) 01/30/25 04:53
MPV 10.9 fL (7.4-10.4) H 01/30/25 04:53
Abs Immat Gran (auto) 0.1 10^3/uL (0-0.05) H 01/27/25 00:31
Absolute Neuts (auto) 5.5 10^3/uL (1.4-6.5) 01/27/25 00:31
Absolute Lymphs (auto) 1.5 10^3/uL (1.2-3.4) 01/27/25 00:31
Absolute Monos (auto) 0.6 10^3/uL (0.1-0.6) 01/27/25 00:31
Absolute Eos (auto) 0.2 10^3/uL (0-0.7) 01/27/25 00:31
Absolute Basos (auto) 0.1 10^3/uL (0-0.2) 01/27/25 00:31
Immature Gran % 1.2 % (0-0.5) H 01/27/25 00:31
Neutrophils % 69.0 % (42.2-75.2) 01/27/25 00:
Lymphocytes % 18.5 % (20.5-51.1) L 01/27/25 00:
Monocytes % 7.9 % (1.7-9.3) 01/27/25 00:
Eosinophils % 2.2 % (0-6) 01/27/25 00:31
Basophils % 1.2 % (0-2) 01/27/25 00:31
Creatinine 1.1 mg/dL (0.7-1.3) 01/30/25 04:53
Laboratory Tests
01/29/25 01/29/25 01/29/25
05:12 12:00 17:48
APTT 60.9 H 77.8 H 70.1 H
01/30/25 01/30/25 01/30/25
00:38 06:38 13:30
APTT 90.3 H 58.2 H Pending
Vital Signs
Vital Signs
Temp Pulse Resp BP Pulse Ox
99 F 92 18 114/91 97
01/30/25 07:47 01/30/25 07:00 01/30/25 07:00 01/28/25 08:55 01/30/25 08:47
--- NOTE | 2025-01-30 09:30 | W.PN.CARDCBS ---
Today's Communication / Plan
-
Overall remains stable. Continue IV amiodarone for A-fib with rapid rates. Continue IV heparin. Eventually restart Toprol.
Weight is up and will restart Lasix 40 mg IV daily. Creatinine stable
Hopefully wean to extubate today. Continue antibiotics.
Once surgical abdomen is stable would restart Eliquis 5 mg p.o. twice daily.
Eventually restart Jardiance, Entresto, and Toprol.
Impression / Plan
-
Primary Commander Internal Affairs: Dr. Pickett
Primary EP: Dr Solorio
PCP: Dr Peñaloza
Patient with history of cardioembolic occlusion of left common femoral artery 06/2023, right iliac artery occlusion status post thromboembolectomy 10/29/2024. During that time was also noted to be in persistent rapid A-fib initially discovered
07/2023 with history of noncompliance with medications. Also with known low EF suspected tachycardia mediated status post cath 05/2024 with nonobstructive CAD.
He presented back to the ED 11/2024 due to generalized malaise and was noted to have a seroma of his right groin s/p I/D and wound vac. He was also found to be in decompensated heart failure with reduced ejection fraction and have atrial
fibrillation with rapid ventricular rates. Plan for LUIS ENRIQUE cardioversion but LUIS ENRIQUE 01/04/2025 showed massive occlusive thrombus in left atrial appendage. Most recently, presented on 01/27/2025 with acute onset abdominal pain found to have acute
mesenteric ischemia with SMA occlusion, went to OR for exploratory laparotomy and SMA thrombectomy. Postop shock with metabolic/lactic acidosis, on Levophed and intubated. Cardiology consulted for management of atrial fibrillation and heart failure
Assessment:
Acute mesenteric ischemia with SMA occlusion, status post exploratory lap and SMA thrombectomy 12/30/2024
Acute hypoxemic respiratory failure
Shock with metabolic/lactic acidosis
Right groin seroma
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
Persistent atrial fibrillation, first discovered July 2023
elevated troponin
Chronic OAC with eliquis
Left atrial appendage thrombus by LUIS ENRIQUE 12/2024
Chronic HFrEF
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
NSVT
Hyperthyroidism
Noncompliance
Depression
History of ETOH and tobacco abuse
Obesity
Ventilator dependent respiratory failure
ECHO 04/04/2024: EF 10 to 15%, severe global hypokinesis, mild MR, trace TR, PAP 30 to 33 mmHg
Cardiac catheterization 05/22/2024: Nonobstructive coronary disease with normal to mildly elevated right and left-sided filling pressures with normal cardiac output
Echocardiogram 10/30/2024: Severely dilated left ventricle, severely reduced LV systolic function, global hypokinesis with ejection fraction of 5-10%, moderate to severe eccentric TR with PA pressure of 30-35 mmHg, small pericardial effusion.
LUIS ENRIQUE 01/04/2025: LVEF 10 to 15%, definite massive occlusive thrombus in left atrial appendage, mild MR, moderate to severe TR
Plan:
He remains on ventilator and sedated in restraints. Hopefully we can begin to wean him. He remains on low-dose Levophed. Hopefully wean today.
Regarding cardioembolic SMA occlusion/ischemic bowel status post SMA embolectomy with second look laparotomy, abdomen is now closed, no evidence of necrotic bowel, as he recovers, will gradually reintroduce GDMT for severe LV dysfunction.
Creatinine is normal at 1.1. His weight is up today. Will restart Lasix 40 mg IV daily.
Continue IV amiodarone for atrial fibrillation with rapid rates. Eventually restart Toprol when blood pressure stable
Regarding 3 cardioembolic events over the last 9 months, this is related to noncompliance and presumably he will now be in a controlled environment for the foreseeable future where anticoagulants can be consistently administered. In the setting of
a massive left atrial appendage thrombus he is not a candidate for Watchman or LA appendage clip for the foreseeable future. Continue IV heparin. Original plan was to attempt a PVI to restore sinus rhythm. Would consider a repeat LUIS ENRIQUE once he
recovers from this event to reevaluate his left atrial appendage.
His severe LV dysfunction is likely tachycardia mediated and related to noncompliance. As above, since he will presumably require a skilled facility, medications will hopefully be reliably administered and might permit recovery of his ejection
fraction.
His cardiomyopathy was nonischemic by cardiac catheterization in 2023, so elevated troponin is non-MN myocardial injury.
Continue Zosyn and supportive ventilatory care.
CC time 32 min
Progress Note - Commander Internal Affairs
Subjective
Date of Service: January 30, 2025
remains intubated, on Levophed/Amiodarome
Objective
Labs:
01/30/25 04:53
01/30/25 04:53
Labs
Hgb 13.8 g/dL (13.0-18.0) 01/30/25 04:53
Hct 42.5 % (39.0-52.0) 01/30/25 04:53
Plt Count 200 10^3/uL (130-400) 01/30/25 04:53
PT 18.0 Sec (11.4-14.6) H 01/28/25 06:36
INR 1.46 01/28/25 06:36
APTT 58.2 Sec (23.4-35.0) H 01/30/25 06:38
Sodium 137 mmol/L (135-145) 01/30/25 04:53
Potassium 4.2 mmol/L (3.5-5.1) 01/30/25 04:53
BUN 32 mg/dl (9-20) H 01/30/25 04:53
Creatinine 1.1 mg/dL (0.7-1.3) 01/30/25 04:53
Glucose 136 mg/dl (70-99) H 01/30/25 04:53
Troponins
0301/27/25 01/27/25
10:29 16:20 21:32
Troponin I 0.112 H* 0.138 H* 0.140 H*
01/28/25 01/28/25 01/28/25
03:31 11:55 15:30
Troponin I 0.132 H* 0.114 H* Cancelled
01/28/25
22:10
Troponin I 0.081 H*
Vital Signs and I&O:
Vital Signs
Temp Pulse Resp BP Pulse Ox
99 F 110 24 114/91 97
01/30/25 07:47 01/30/25 08:55 01/30/25 08:55 01/28/25 08:55 01/30/25 08:55
Vital Signs
Temp Pulse Resp BP Pulse Ox
99 F 110 24 114/91 97
01/30/25 07:47 01/30/25 08:55 01/30/25 08:55 01/28/25 08:55 01/30/25 08:55
Intake & Output
01/28/25 01/29/25 01/30/25 01/31/25
06:59 06:59 06:59 06:59
Intake Total 1829.2 / 1913.6 2289.67 / 2382.57 2028.2 / 2103.3 200.6 / 200.6
Output Total 4239 / 4239 1490 / 1520 1695 / 1695 160 / 160
Balance -2409.8 / -2325.4 799.67 / 862.57 333.2 / 408.3 40.6 / 40.6
Physical Exam
Physical Exam
GEN: anxious, intubated
HEENT: supple, anicteric, mmm, ET tube
LUNGS: bilat rhonchi
CV: Irreg, S1/S2, 1/6 syst LSB, S3+
ABD: soft, +incision
EXT: trace edema
NEURO: Gross non-focal
SKIN: No rash
[2025-01-30] MEDS: LOPRESSOR 2.5 MG IV ×4 (09:50→23:43)
--- NOTE | 2025-01-30 10:13 | W.PN.CRS1 ---
Today's Communication / Plan
-
continue Aquacel dressing another day
will plan on removing/changing tomorrow
Assessment/Plan
-
POD#2 Exploratory laparotomy, mesenteric angiography, partial omentectomy, tap block, abdominal closure
Hgb 13.8 (15.3). WBC 10.9 (8.1)
Intubated/sedated
-No plans for further surgery at this time
-Extubate per primary team
-Diet advancement when extubated
-Daily dressing changes (tree underneath) when Aquacel removed by surgery (likely tomorrow)
Subjective Data
Procedure
01/27/2025- Ex lap, SMA embolectomy
Subjective Data
Date of Service: January 30, 2025
Patient is intubated and sedated.
Objective Data
-
Vital Signs
Temp Pulse Resp BP Pulse Ox
99 F 149 24 127/74 97
01/30/25 07:47 01/30/25 09:50 01/30/25 08:55 01/30/25 09:50 01/30/25 08:55
Intake & Output
01/29/25 01/30/25 01/31/25
06:59 06:59 06:59
Intake Total 2289.67 / 2382.57 2027.2 / 2102.3 200.6 / 200.6
Output Total 1490 / 1520 1695 / 1695 160 / 160
Balance 799.67 / 862.57 333.2 / 408.3 40.6 / 40.6
Intake:
IV fluids (Total) 1889.67 / 1982.57 1928.2 / 2002.3 200.6 / 200.6
Amiodarone 367.0 / 383.7 400.8 / 417.5 50.1 / 50.1
Cardizem 35 / 35
Fentanyl 105 / 110 120 / 125 15 / 15
Heparin 480 / 506 636 / 663 85 / 85
Insulin 10.4 / 10.4
Levophed 683.2 / 717.0 509.2 / 524.2 31.5 / 31.5
Propofol 209.07 / 220.47 262.2 / 273.6 19.0 / 19.0
IV piggybacks 400 / 400 100 / 100
Output:
Gastrointestinal tube output ( 250 / 250 150 / 150
Total)
Pengilly Sump 250 / 250 150 / 150
Urine, Wilkerson 1240 / 1270 1545 / 1545 160 / 160
Lab Results
01/30/25 04:53
01/30/25 04:53
Physical Exam
-
General: No Acute Distress
Abdomen: Soft, Non Distended and Non Tender
Wound: Dressing in Place
--- NOTE | 2025-01-30 10:32 | RESPNOTE ---
pt self extubated himself at 0945
placed on 100% NRB with 02 sats of 99%
switched to 15 L/min midflow as 02 stable on NRB
--- NOTE | 2025-01-30 11:19 | PTCARENOTE ---
Pt self extubated while in restraints during spontaneous awakening trial. Now SpO2 98% on 10L NC. Productive cough with thick robles secretions.
Fentanyl, Propofol and Levophed off. Remains on Amiodarone and Heparin gtt.
Afib. HR 110-120s.
NGT to low intermittent suction. Hypoactive bowel sounds.
Wilkerson draining nicole urine.
Abdominal Aquacel with small amount of drainage.
All other assessments unchanged.
[2025-01-30] MEDS: LASIX 20 MG IV ×2 (11:56→17:12)
[2025-01-30 12:07] LABS: Glucose - Point of Care 119 mg/dl (70-99)
[2025-01-30 14:06] LABS: APTT 91.8 Sec (23.4-35.0)
[2025-01-30] MEDS: CORDARONE 518 MG IV (14:14)
--- NOTE | 2025-01-30 14:49 | CM ---
CM following re: discharge planning.
Reviewed pt's chart, met with pt. Pt's mother at bedside.
Pt is POD#1 Exploratory laparotomy, mesenteric angiography, partial omentectomy, tap block, abdominal closure. Pt self extubated today, continue supportive care.
Pt lives in an apartment/rented room, , 2nd floor, 2FF of steps to get to his apartment. Pt has no children, has 4 brothers, 3 sisters and a mother, one brother lives with mother and brother Jag lives in [facility]. Pt has supportive friend
Angie. Pt is independent in all areas [employer], was at [facility] in the past.
PT and OT will evaluate the pt to determine a level of care at discharge.
D/C plan: uncertain at this time and will depend on pt's progress.
CM will follow with discharge plan updates as hospitalization progress
--- NOTE | 2025-01-30 16:00 | W.PN.INTV ---
Today's Communication / Plan
Recommendations
-Monitor closely in ICU post self extubation
-Lasix 20 mg IV twice a day
-Follow-up electrolytes in a.m
-Await bowel function before starting p.o.
Assessment
-
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
thromboembolic occlusion of the right iliac system s/p thromboembolectomy of the right iliac system + thromboembolectomy of the right SFA, popliteal artery and profundofemoral artery (10/2024) who presents with abdominal pain and SOB. 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
usual state of health CAN PATCHER when he developed sudden periumbilical abdominal pain without nausea or vomiting. In the ER he was afebrile to 98.2 �F, pulse rate 135, breathing at 12 breaths/min, BP 162/110 and saturating 97% on room air. Initial labs
showed potassium 2.9, lactate 5.2, T. bili 2.1, and proBNP 4580. CTA A/P showed thrombosis of the SMA with small bilateral pleural effusions and groundglass attenuation in the bases of the lungs. He was given 40 mg IV Lasix in the ER, Dilaudid 0.5
mg, potassium repletion, 1 L NS 0.9% and Zofran. Vascular surgery was consulted and given his significant abdominal pain of acute onset he was consented for the OR. He underwent exploratory laparotomy with thromboembolectomy of superior mesenteric
artery and placement of an AbThera VAC. Postoperatively he returned to the ICU intubated, and [employer] services consulted for additional management/recommendations.
Chronic conditions CAN PATCHER: Paroxysmal a-fib on Eliquis, hyperthyroidism, chronic HFrEF, left lower extremity arterial occlusion due to thromboembolism (06/2023)
Last 24-hour events:
Fluid balance, -540 ml
01/30. patient self extubated during SAT
Current drips, heparin and amiodarone infusion. Currently off insulin infusion.
Assessment and plan:
#1. Acute mesenteric ischemia with SMA occlusion, likely embolic, s/p ex lap with SMA thrombectomy, followed by delayed abdominal wall closure
-Currently on heparin infusion
-NG to suction
#2. Shock, resolved
-This is related to acute mesenteric ischemia, infection
-Currently off Levophed
-Continue antibiotics for total of 7 days
-Off Cardizem
#3. Chronic heart failure with reduced ejection fraction, LVEF 10 to 15% with history of occlusive thrombus in MELISSA in the past
-Likely the source of embolic event to SMA
-Monitor input and output closely
-Chest x-ray suggestive of volume overload with trace effusions. Increase Lasix to 20 mg IV BID
#4. Atrial fibrillation with rapid ventricular rate
-off Cardizem in view of low EF
-Continue amiodarone infusion
-Cardiology service on case
-Heparin drip for anticoagulation
#5. Hyperglycemia
-Insulin infusion off now
Gi Prophylaxis with IV PPI
Critical care statement: A total of 35 minutes of critical care time was provided for this patient today. This includes management of unstable vital signs, evaluation of the patient at bedside, reviewing the patient's pertinent medical records
including radiographs, microbiology, laboratory evaluations, and discussion with primary team, consultants, pharmacy, nutrition, physical therapy, case management, charge nurse, critical care nursing, and respiratory therapy.
Data:
CTA Abd/Pelvis w/wo IV contrast 01/27/2025:
Thrombosis of superior mesenteric artery branches, new since prior examination.
No bowel thickening or pneumatosis to suggest bowel ischemia.
No acute inflammatory changes within the abdomen or pelvis.
Mild diverticulosis without acute diverticulitis.
Stable fatty infiltration of liver. Stable low-attenuation right adrenal mass 1.3 cm, most consistent with benign adenoma.
Hazy attenuation in the dependent lung bases. Groundglass attenuation. Small bilateral pleural effusions. Possible mild pulmonary edema and/or atelectasis.
Subjective Dataa
Subjective Data
Date of Service:
Date of Service: January 30, 2025
Objective Data
Data Reviewed
Vital Signs / I&O / Oxygen:
Vital Signs
Temp Pulse Resp BP Pulse Ox
97.7 F 105 10 127/74 97
01/30/25 15:24 01/30/25 13:30 01/30/25 13:30 01/30/25 09:50 01/30/25 13:40
Intake and Output
01/29/25 01/30/25 01/31/25
06:59 06:59 06:59
Intake Total 2289.67 / 2382.57 2028.2 / 2103.3 383.4 / 383.4
Output Total 1490 / 1520 1695 / 1695 1085 / 1085
Balance 799.67 / 862.57 333.2 / 408.3 -701.6 / -701.6
SaO2 [A/C] 98
SaO2 97
Nasal Cannula flow liters per 6
minute
Physical Exam
General: Comfortable
HEENT: Normocephalic
Cardiovascular: Irregular Rhythm
Respiratory: Clear
GI: Normal Bowel Sounds (Absent bowel sounds)
Neurology: Other (Sedated)
Skin: Warm
Labs/Micro/Reports
Lab Data
01/30/25 04:53
01/30/25 04:53
Laboratory Results
01/29/25 01/30/25 01/30/25
17:48 00:38 04:53
APTT 70.1 H 90.3 H
pH 7.46 H
pCO2 40
pO2 118 H
HCO3 28.4 H
O2 Delivery Level
01/30/25 01/30/25
06:38 13:27
APTT 58.2 H 91.8 H
pH
pCO2
pO2
HCO3
O2 Delivery Level
Microbiology
01/27/25 12:14 Blood/Venous Blood Culture - Preliminary
No Growth in 72 hours- Final report to follow
01/27/25 21:32 Nose MRSA Screen - Final
No Methicillin Resistant Staphylococcus aureus isolated.
[2025-01-30 17:22] LABS: Glucose - Point of Care 111 mg/dl (70-99)
[2025-01-30 17:53] LABS: Heparin Anti-Xa UF (UFH) 0.57 IU/mL (0.30-0.70)
--- NOTE | 2025-01-30 17:53 | PTCARENOTE ---
O2 weaned to 4L NC. A-line came partially out. No longer reading ABP therefore removed. Improved urine output after receiving IV Lasix. All other assessments unchanged.
--- NOTE | 2025-01-30 20:00 | PTCARENOTE ---
received pt from previous rn. Pt AAOx2 drowsy and forgetful, Afib per tele monitor HR 100s, + pulses, +1 b/l LE edema, pox 98% on 4L NC. lungs diminished, hypoactive bs, candelaria draining clear yellow urine. double lumen picc infusing heparin and
amiodarone. surgical incision intact with small amount of drainage. piv intact. plan of care discussed questions encouraged.
[2025-01-30 20:32] LABS: APTT 106.9 Sec (23.4-35.0)
[2025-01-31] VITALS (24 sets, daily range): BP systolic 95–132; BP diastolic 61–102; BMI 36.3
[2025-01-31 00:03] LABS: Glucose - Point of Care 111 mg/dl (70-99)
--- NOTE | 2025-01-31 01:09 | PTCARENOTE ---
able to wean patient to 2L NC, pt resting comfortably in bed, A-fib per tele monitor, assessment remains unchanged.
[2025-01-31 04:22] LABS: Hematocrit 46.6 % (39.0-52.0); Hemoglobin 14.7 g/dL (13.0-18.0); Mean Corp Hgb Conc. 31.5 g/dL (33.0-37.0); Mean Corpuscular Hgb 31.3 pg (27.0-31.0); Mean Corpuscular Volume 99.4 fL (80.0-94.0); Mean Platelet Volume 10.7 fL (7.4-10.4); Platelet Count 182 10^3/uL (130-400); Red Blood Cell Count 4.69 10^6/uL (4.70-6.10); Red Cell Dist. Width 17.6 % (11.5-14.5); White Blood Cell Count 6.2 10^3/uL (4.8-10.8)
[2025-01-31 04:32] LABS: APTT 114.4 Sec (23.4-35.0)
[2025-01-31 04:41] LABS: ALT (SGPT) 12 U/L (0-50); AST (SGOT) 21 U/L (17-59); Albumin 2.4 g/dl (3.5-5.0); Alkaline Phosphatase 80 U/L (38-126); Blood Urea Nitrogen 33 mg/dl (9-20); Calcium 8.3 mg/dl (8.4-10.2); Carbon Dioxide 34 mmol/L (22-30); Chloride 103 mmol/L (98-107); Estimated Creatinine Clearance 98 ml/min; Glucose 118 mg/dl (70-99); Potassium 3.8 mmol/L (3.5-5.1); Sodium 140 mmol/L (135-145); Total Bilirubin 3.7 mg/dl (0.2-1.3); Total Protein 4.9 g/dl (6.3-8.2); eGFR > 60.00
[2025-01-31 04:48] LABS: NT-proBNP 7670 pg/ml
[2025-01-31] MEDS: LOPRESSOR 2.5 MG IV ×3 (05:28→17:28)
[2025-01-31] MEDS: ZOSYN 100 IV ×3 (05:29→17:28)
[2025-01-31 06:05] LABS: Glucose - Point of Care 121 mg/dl (70-99)
[2025-01-31] MEDS: NOVOLOG FLEXPEN-MODERATE RESISTANCE SC ×3 (06:12→17:41)
--- NOTE | 2025-01-31 07:47 | W.PN.HOSP.TC ---
Today's Communication/Plan
-
see plan
Assessment / Plan
Assessment / Plan
pt is a 59 year old male with hx dilated cardiomyopathy, EF 5-10%, afib with known LV thrombus on AC non-compliant, left lower extremity arterial occlusion due to thromboembolism 07/06 and acute limb ischemia RLE s/p thromboembolectomy 11/06
presents to the ER with abdominal pain and shortness of breath. CT A/P showed thrombosis of the SMA s/p ex lap with thromboembolectomy of SMA and placement of an AbThera Vac 01/27/25.
CT A/P
IMPRESSION:
Thrombosis of superior mesenteric artery branches, new since prior examination.
No bowel thickening or pneumatosis to suggest bowel ischemia.
No acute inflammatory changes within the abdomen or pelvis.
Mild diverticulosis without acute diverticulitis.
Stable fatty infiltration of liver. Stable low-attenuation right adrenal mass 1.3 cm, most consistent with benign adenoma.
Hazy attenuation in the dependent lung bases. Groundglass attenuation. Small bilateral pleural effusions. Possible mild pulmonary edema and/or atelectasis.
LUIS ENRIQUE 01/04/25
CONCLUSIONS
Left ventricle is mildly dilated. Severely reduced left ventricular systolic
function. Global hypokinesis. Normal left ventricular wall thickness. Left
ventricular ejection fraction is 10-15%.
Normal right ventricular size and function.
Moderately dilated left atrium.
Mildly dilated right atrium.
Left atrial appendage is mildly dilated. Definite massive occlusive thrombus in
the left atrial appendage. Peak velocities within the left atrial appendage are
30cm/sec.
Mild mitral regurgitation.
Moderate to severe tricuspid regurgitation.
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
Hypoxic Resp Failure
-appreciate vascular, CRS, Editor Publications consults
-s/p OR 01/27/25; thromboembolectomy of SMA, placement ABThera Vac
-s/p OR 01/28: Procedure Performed: Exploratory laparotomy, mesenteric angiography, partial omentectomy, tap block, abdominal closure
-IV heparin gtt
-IV Zosyn
-IV Levophed now off
-NGT in place, F/U surgery recs on management
Hypoxic Respiratory Failure status post intubation
-extubated on 01/30
hypokalemia- repleted
permanent AFIB with RVR - rate above 120s-
-IV amiodarone gtt
-IV Heparin gtt
-resume Metoprolol when able to take PO
-resume Eliquis when confirm no need for further procedures
acute on chronic HFrEF (EF 5-10%)
-hold NOISE TESTER Entresto and Metop XL
-IV Lasix BID
hyperthyroid--new diagnosis last admission?--on methimazole but would hold for now--consideration for checking TFTs but pt critically ill....
PAD--active smoker--MUST quit--had wound dehiscence and R iliac thromboembolectomy 11/06, OR washout 11/29/24
DVT proph--IV heparin drip
Code status - Full Code
Total Critical Care Time 40 minutes. I was immediately available to the patient and staff. I personally examined, reviewed labs, diagnostic images/reports, interpretations, treatment plans, discussed patient care with other providers and family
or caregivers (if patient is unable to make decisions), entered orders as appropriate and documented the medical record.
Anticipated Discharge: > 48 hours
Subjective/Interval History
-
Date of Service: January 31, 2025
thirsty
denies pain
no chest pain or shortness of breath
Objective Data
-
Labs:
Laboratory Results
01/30/25 01/31/25 01/31/25
20:00 04:00 13:00
WBC 6.2
Hgb 14.7
Hct 46.6
Plt Count 182
APTT 106.9 H 114.4 H Pending
Sodium 140
Potassium 3.8
Chloride 103
Carbon Dioxide 34 H
BUN 33 H
Creatinine 1.1
Glucose 118 H
Calcium 8.3 L
Total Bilirubin 3.7 H
AST 21
ALT 12
Alkaline Phosphatase 80
Vital Signs:
Vital Signs
Temp Pulse Resp BP Pulse Ox
98.7 F 114 24 113/90 93
01/31/25 03:30 01/31/25 06:00 01/31/25 06:00 01/31/25 05:01 01/31/25 06:00
I&O
01/30/25 01/31/25 02/01/25
06:59 06:59 06:59
Intake Total 2028.2 / 2103.3 1360.3 / 1405.0 44.7 / 44.7
Output Total 1695 / 1695 3790 / 3830 40 / 40
Balance 333.2 / 408.3 -2429.7 / -2425.0 4.7 / 4.7
Review of Systems
-
History Source: Patient
All other systems: Reviewed and negative
Physical Exam
-
General: Well Developed, Well Nourished and Intubated
HEENT: Normocephalic and Atraumatic
Respiratory: Clear to Auscultation; Negative Wheezes, Rales, Rhonchi or Crackles
Cardiac: Irregular Rhythm and Tachycardic
GI: Soft and Other (abdomen gauze with mild oozing)
Genito-urinary: Wilkerson
Musculoskeletal: No Clubbing and No Cyanosis; Negative No Edema (2+ LE edema bilaterally)
Skin: Warm
Neuro: Awake and AO x 3
Psych: Calm
Data Reviewed
-
Diagnostic Radiology: Report Reviewed by me
Labs: Labs Reviewed by me
--- NOTE | 2025-01-31 08:10 | PN.DE.MGMTRT ---
Insulin Management
- -
01/31/2025: Diabetes Management Consult Follow up
59 year old male with PMH: A-fib, hyperthyroidism, chronic HFrEF, LLE arterial occlusion due to thromboembolism (06/2023), h/o acute limb ischemia of RLE with thromboembolic occlusion of the right iliac system s/p thromboembolectomy of the right
iliac system + thromboembolectomy of the right SFA, popliteal artery.
Patient presented to the ED with abdominal pain and SOB. CTA showed thrombosis of the SMA s/p ex lap with thromboembolectomy of SMA and placement of an AbThera Vac 01/27/25. Postoperatively he was started on the glycemic protocol due to
hyperglycemia. Was taking Jardiance 10mg daily [employer]. A1C 6.3%, Cr 1.1, eGFR >60.
Pt self extubated sedation off, insulin infusion off due to glucose < 100. Remains NPO Glucose remains stable, 111 to 136, with moderate corrective insulin Q6 hours.
Will make no change.
Will cont to follow.
Diabetes History
- -
Pre-Admission Diabetes Regimen
01/31/25
04:00
Creatinine 1.1
Lab Results
Hemoglobin A1c 6.3 % (4.0-5.6) H 01/27/25 14:42
Insulin Pump Settings
IP Diabetes Regimen
01/30/25 01/30/25 01/30/25
11:56 17:21 23:52
Glucose
POC Glucose 119 H 111 H 111 H
01/31/25 01/31/25
04:00 05:53
Glucose 118 H
POC Glucose 121 H
Patient Education
[2025-01-31] MEDS: NSS (PRESERVATIVE FREE) 10 ML IV (08:14)
[2025-01-31] MEDS: PROTONIX IV 40 MG IV (08:15)
[2025-01-31] MEDS: LASIX 20 MG IV ×2 (08:15→15:27)
--- NOTE | 2025-01-31 08:19 | W.PN.ONC2 ---
Today's Communication / Plan
-
.
Impression
Impression
59-year-old vasculopath, smoker, noncompliant with oral anticoagulation presents with acute abdominal pain and SMA occlusion requiring thromboembolectomy of superior mesenteric artery. Postoperatively he is intubated, septic on pressors, and on IV
heparin requiring high doses and has somewhat subtherapeutic APTT
IMP:
Vasculopathy
Thrombosis of superior mesenteric artery branches
Septic Shock in setting of ischemic bowel from SMA Thrombosis
Hypoxic ventilator dependent resp Failure
permanent AFIB with RVR - rate above 120s-
acute on chronic HFrEF (EF 5-10%)
hyperthyroid
PAD
active smoker
Plan
Plan
At this time, continue IV heparin with management per the IV heparin dosing protocol adjusted per the PTT
Anticardiolipin and beta 2 microglobulin are negative for APLS. Eventual LA, current results would be difficult to interpret in light of his current clinical condition and results would not change acute management
We will continue to consider chronic anticoagulation therapy in light of a variety of factors including medical noncompliance.
Subjective/Objective
Subjective
no new complaints
denies bleeding
Vital Signs:
Vital Signs
Temp Pulse Resp BP Pulse Ox
98.7 F 112 22 115/61 96
01/31/25 03:30 01/31/25 08:15 01/31/25 08:01 01/31/25 08:15 01/31/25 08:08
Lab Results:
Laboratory Data
WBC 6.2 10^3/uL (4.8-10.8) 01/31/25 04:00
Hgb 14.7 g/dL (13.0-18.0) 01/31/25 04:00
Plt Count 182 10^3/uL (130-400) 01/31/25 04:00
PT 18.0 Sec (11.4-14.6) H 01/28/25 06:36
INR 1.46 01/28/25 06:36
APTT 114.4 Sec (23.4-35.0) H 01/31/25 04:00
eGFR > 60.00 01/31/25 04:00
Physical Exam
HEENT: Other (NGT); No Jaundice
Cardiology: Normal Sinus Rhythm
Pulmonary: Clear
GI: Soft and Other (Wilkerson cath)
Extremities: Pulses Present and Edema
[2025-01-31] MEDS: HEPARIN 25000 UNITS/250 ML IV ×2 (08:40→17:37)
--- NOTE | 2025-01-31 09:00 | PTCARENOTE ---
Rec'd care of patient at 0700. Patient alert and oriented. Drowsy. MAEx4. Generalized weakness. Afib on tele monitor. Trace anasarca. +Doppler pt and dp pulses. Pulse ox 96-98% on 2L nc. Lung sounds diminished throughout. BS present (hypo). Abdomen
round/distended/tender. NGT to low intermittent suction. NPO. No BM. Wilkerson in place for critical I/O. Alayna output. Midline aquacell dressing intact; old drainage. Heparin and Amio drips infusing through RDL PICC. Left hand INT capped.
[2025-01-31] MEDS: KCL 100 IV (11:07)
--- NOTE | 2025-01-31 11:33 | W.PN.CARDCBS ---
Today's Communication / Plan
-
Continue IV amiodarone and IV Lopressor.
Continue IV heparin for now eventually restart Eliquis.
Would diurese for another 24 to 40 hours with Lasix 20 mg IV twice daily. Follow potassium and electrolytes.
Hopefully can resume oral medications over the next 24 to 48 hours.
Continue antibiotics. Improving
Impression / Plan
-
Primary Community Sports Coordinator: Dr. Pickett
Primary EP: Dr Solorio
PCP: Dr Peñaloza
Patient with history of cardioembolic occlusion of left common femoral artery 06/2023, right iliac artery occlusion status post thromboembolectomy 10/29/2024. During that time was also noted to be in persistent rapid A-fib initially discovered
07/2023 with history of noncompliance with medications. Also with known low EF suspected tachycardia mediated status post cath 05/2024 with nonobstructive CAD.
He presented back to the ED 11/2024 due to generalized malaise and was noted to have a seroma of his right groin s/p I/D and wound vac. He was also found to be in decompensated heart failure with reduced ejection fraction and have atrial
fibrillation with rapid ventricular rates. Plan for LUIS ENRIQUE cardioversion but LUIS ENRIQUE 01/04/2025 showed massive occlusive thrombus in left atrial appendage. Most recently, presented on 01/27/2025 with acute onset abdominal pain found to have acute
mesenteric ischemia with SMA occlusion, went to OR for exploratory laparotomy and SMA thrombectomy. Postop shock with metabolic/lactic acidosis, on Levophed and intubated. Cardiology consulted for management of atrial fibrillation and heart failure
Assessment:
Acute mesenteric ischemia with SMA occlusion, status post exploratory lap and SMA thrombectomy 12/30/2024
Acute hypoxemic respiratory failure
Shock with metabolic/lactic acidosis
Right groin seroma
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
Persistent atrial fibrillation, first discovered July 2023
elevated troponin
Chronic OAC with eliquis
Left atrial appendage thrombus by LUIS ENRIQUE 12/2024
Chronic HFrEF
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
NSVT
Hyperthyroidism
Noncompliance
Depression
History of ETOH and tobacco abuse
Obesity
Ventilator dependent respiratory failure
ECHO 04/04/2024: EF 10 to 15%, severe global hypokinesis, mild MR, trace TR, PAP 30 to 33 mmHg
Cardiac catheterization 05/22/2024: Nonobstructive coronary disease with normal to mildly elevated right and left-sided filling pressures with normal cardiac output
Echocardiogram 10/30/2024: Severely dilated left ventricle, severely reduced LV systolic function, global hypokinesis with ejection fraction of 5-10%, moderate to severe eccentric TR with PA pressure of 30-35 mmHg, small pericardial effusion.
LUIS ENRIQUE 01/04/2025: LVEF 10 to 15%, definite massive occlusive thrombus in left atrial appendage, mild MR, moderate to severe TR
Plan:
He is now extubated and awake. Off all pressors. Hopefully can restart oral medications soon.
Regarding cardioembolic SMA occlusion/ischemic bowel status post SMA embolectomy with second look laparotomy, abdomen is now closed, no evidence of necrotic bowel, as he recovers, will gradually reintroduce GDMT for severe LV dysfunction.
Continue IV amiodarone and IV Lopressor for atrial fibrillation with rapid rates. Eventually restart Toprol when blood pressure stable. Would also start oral amiodarone to help with rate control.
His weight is down and creatinine remained stable. Continue IV Lasix. His bicarb is trending upwards so may need to decrease Lasix over next 24 to 48 hours.
Regarding 3 cardioembolic events over the last 9 months, this is related to noncompliance and presumably he will now be in a controlled environment for the foreseeable future where anticoagulants can be consistently administered. In the setting of
a massive left atrial appendage thrombus he is not a candidate for Watchman or LA appendage clip for the foreseeable future. Continue IV heparin. Original plan was to attempt a PVI to restore sinus rhythm. Would consider a repeat LUIS ENRIQUE once he
recovers from this event to reevaluate his left atrial appendage. Continue IV heparin for now
His severe LV dysfunction is likely tachycardia mediated and related to noncompliance. As above, since he will presumably require a skilled facility, medications will hopefully be reliably administered and might permit recovery of his ejection
fraction.
His cardiomyopathy was nonischemic by cardiac catheterization in 2023, so elevated troponin is non-PA myocardial injury.
Continue Zosyn and respiratory and postoperative care.
Discussed with family at bedside
CC time 31 min
Progress Note - Community Sports Coordinator
Subjective
Date of Service: January 31, 2025
He is now extubated and awake. He denies chest pains. He is asking to eat and is hungry.
Objective
Labs:
01/31/25 04:00
01/31/25 04:00
Labs
Hgb 14.7 g/dL (13.0-18.0) 01/31/25 04:00
Hct 46.6 % (39.0-52.0) 01/31/25 04:00
Plt Count 182 10^3/uL (130-400) 01/31/25 04:00
PT 18.0 Sec (11.4-14.6) H 01/28/25 06:36
INR 1.46 01/28/25 06:36
APTT 114.4 Sec (23.4-35.0) H 01/31/25 04:00
Sodium 140 mmol/L (135-145) 01/31/25 04:00
Potassium 3.8 mmol/L (3.5-5.1) 01/31/25 04:00
BUN 33 mg/dl (9-20) H 01/31/25 04:00
Creatinine 1.1 mg/dL (0.7-1.3) 01/31/25 04:00
Glucose 118 mg/dl (70-99) H 01/31/25 04:00
Troponins
01/28/25 01/28/25 01/28/25
11:55 15:30 22:10
Troponin I 0.114 H* Cancelled 0.081 H*
Vital Signs and I&O:
Vital Signs
Temp Pulse Resp BP Pulse Ox
97.9 F 119 19 114/72 95
01/31/25 11:21 01/31/25 11:07 01/31/25 11:00 01/31/25 11:07 01/31/25 11:00
Vital Signs
Temp Pulse Resp BP Pulse Ox
97.9 F 119 19 114/72 95
01/31/25 11:21 01/31/25 11:07 01/31/25 11:00 01/31/25 11:07 01/31/25 11:00
Intake & Output
01/29/25 01/30/25 01/31/25 02/01/25
06:59 06:59 06:59 06:59
Intake Total 2289.67 / 2382.57 2028.2 / 2103.3 1360.3 / 1405.0 453.5 / 453.5
Output Total 1490 / 1520 1695 / 1695 3790 / 3830 1230 / 1230
Balance 799.67 / 862.57 333.2 / 408.3 -2429.7 / -2425.0 -776.5 / -776.5
Physical Exam
Physical Exam
GEN: No distress, awake, Ox3
HEENT: supple, anicteric, mmm
LUNGS: scatt rhonchi
CV: Irreg, S1/S2, 1/6 syst LSB, no gallop
ABD: soft, BS dec, + mild tennderness
EXT: No edema
NEURO: Gross non-focal
SKIN: No rash
[2025-01-31 11:52] LABS: Glucose - Point of Care 116 mg/dl (70-99)
--- NOTE | 2025-01-31 12:15 | PTCARENOTE ---
No major changes in assessment. Patient only complaint is he would like to eat. VSS. Urine output improved post administration of IV Lasix. Attempted to wean to RA. Pulse ox down to 88%. Placed back on 1L nc. Pulse ox 94-96%.
--- NOTE | 2025-01-31 13:03 | PTCARENOTE ---
Patient pulled out NGT. Clarified with Colorectal Surgery- NGT does not require replacement.
--- NOTE | 2025-01-31 13:44 | W.PN.INTV ---
Addendum entered and electronically signed by Martinez Wade MD 01/31/25 17:00:
-Appliance [employer] Counter Clerk service will sign off once patient is transferred out of ICU, please call as needed.
Original Note:
Today's Communication / Plan
Recommendations
-Continue Lasix IV twice daily, labs in a.m.
-PT/OT
Assessment
-
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
thromboembolic occlusion of the right iliac system s/p thromboembolectomy of the right iliac system + thromboembolectomy of the right SFA, popliteal artery and profundofemoral artery (10/2024) who presents with abdominal pain and SOB. 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 In the ER he was afebrile to 98.2 �F, pulse rate 135, breathing at 12 breaths/min, BP 162/110 and saturating 97% on room air. Initial labs
showed potassium 2.9, lactate 5.2, T. bili 2.1, and proBNP 4580. CTA A/P showed thrombosis of the SMA with small bilateral pleural effusions and groundglass attenuation in the bases of the lungs. He was given 40 mg IV Lasix in the ER, Dilaudid 0.5
mg, potassium repletion, 1 L NS 0.9% and Zofran. Vascular surgery was consulted and given his significant abdominal pain of acute onset he was consented for the OR. He underwent exploratory laparotomy with thromboembolectomy of superior mesenteric
artery and placement of an AbThera VAC. Postoperatively he returned to the ICU intubated, and Appliance [employer] Counter Clerk services consulted for additional management/recommendations.
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
Last 24-hour events:
Self extubated 01/30
Fluid balance, -3045 ml
Current drips, heparin and amiodarone infusion. Currently off insulin infusion.
Assessment and plan:
#1. Acute mesenteric ischemia with SMA occlusion, likely embolic, s/p ex lap with SMA thrombectomy, followed by delayed abdominal wall closure
-Currently on heparin infusion
-NG to suction, await return of bowel function
#2. Shock, resolved
-This is related to acute mesenteric ischemia, infection
-Currently off Levophed
-Continue antibiotics for total of 7 days, then d/c
-Off Cardizem
#3. Acute on Chronic heart failure with reduced ejection fraction, LVEF 10 to 15% with history of occlusive thrombus in MELISSA in the past
-Likely the source of embolic event to SMA
-Monitor input and output closely
-Diuresing well, continue IV lasix for now
#4. Atrial fibrillation with rapid ventricular rate
-off Cardizem in view of low EF
-Continue amiodarone infusion along with Lopressor IV q 6hrs scheduled
-Cardiology service on case
-Heparin drip for anticoagulation
-Switch to oral meds once able to take PO
#5. Hyperglycemia
-Insulin infusion off now
Gi Prophylaxis with IV PPI
Critical care statement: A total of 30 minutes of critical care time was provided for this patient today. This includes management of unstable vital signs, evaluation of the patient at bedside, reviewing the patient's pertinent medical records
including radiographs, microbiology, laboratory evaluations, and discussion with primary team, consultants, pharmacy, nutrition, physical therapy, case management, charge nurse, critical care nursing, and respiratory therapy.
Data:
CTA Abd/Pelvis w/wo IV contrast 01/27/2025:
Thrombosis of superior mesenteric artery branches, new since prior examination.
No bowel thickening or pneumatosis to suggest bowel ischemia.
No acute inflammatory changes within the abdomen or pelvis.
Mild diverticulosis without acute diverticulitis.
Stable fatty infiltration of liver. Stable low-attenuation right adrenal mass 1.3 cm, most consistent with benign adenoma.
Hazy attenuation in the dependent lung bases. Groundglass attenuation. Small bilateral pleural effusions. Possible mild pulmonary edema and/or atelectasis.
Subjective Dataa
Subjective Data
Date of Service:
Date of Service: January 31, 2025
Subjective:
Patient comfortably lying in bed, in no acute distress. Off restraints now.
Review of Systems
Genitourinary: Other (All 14 systems reviewed and negative except as stated above in the history of present illness.)
Objective Data
Data Reviewed
Vital Signs / I&O / Oxygen:
Vital Signs
Temp Pulse Resp BP Pulse Ox
97.9 F 114 25 118/76 96
01/31/25 11:21 01/31/25 13:18 01/31/25 13:18 01/31/25 13:18 01/31/25 13:18
Intake and Output
01/30/25 01/31/25 02/01/25
06:59 06:59 06:59
Intake Total 2028.2 / 2103.3 1360.3 / 1405.0 542.9 / 542.9
Output Total 1695 / 1695 3790 / 3830 1475 / 1475
Balance 333.2 / 408.3 -2429.7 / -2425.0 -932.1 / -932.1
SaO2 [A/C] 98
SaO2 96
Nasal Cannula flow liters per 2
minute
Physical Exam
General: Comfortable
HEENT: Normocephalic
Cardiovascular: Irregular Rhythm
Respiratory: Clear
GI: Distended (less distended )
Neurology: Awake, Alert and Other (Sedated)
Skin: Warm
Labs/Micro/Reports
Lab Data
01/31/25 04:00
01/31/25 04:00
Laboratory Results
01/30/25 01/30/25 01/31/25
13:27 20:00 04:00
APTT 91.8 H 106.9 H 114.4 H
Microbiology
01/27/25 12:14 Blood/Venous Blood Culture - Preliminary
No Growth in 4 days- Final report to follow
01/27/25 21:32 Nose MRSA Screen - Final
No Methicillin Resistant Staphylococcus aureus isolated.
[2025-01-31 14:04] LABS: APTT 76.6 Sec (23.4-35.0)
[2025-01-31] MEDS: MYLICON 80 MG PO (15:20)
--- NOTE | 2025-01-31 15:42 | PTCARENOTE ---
Systems reviewed. Patient sitting up in chair position in bed. Alert and oriented. Assisting with turns in bed. Afib on tele. Pulse ox 96% on 1L nc. Lung sounds diminished throughout. Hypo BS. No BM. Midline incision dressing drainage unchanged. C/o
gas pains. Contacted Colorectal Surgery. Order for Simethicone obtained. Swallow test performed prior to administration. No s/s aspiration. Wilkerson draining nicole urine. Second dose of Lasix administered. Heparin and Amio gtts maintained.
--- NOTE | 2025-01-31 15:43 | W.PN.VS ---
Today's Communication / Plan
-
See plan below, reviewed with attending Dr. Elvis Wilkerson III
Assessment/Plan
-
Assessment: 59-year-old male POD #4 Exploratory laparotomy, thromboembolectomy of superior mesenteric artery, and placement of AbThera VAC, status post OR with colorectal surgery with abdominal closure
Plan:
Continue anticoagulation, can transition to p.o. anticoagulation once cleared by colorectal. Hematology following can provide guidance on choice for p.o. anticoagulation.
Outpatient vascular surgery follow-up placed in discharge instructions
We will sign off please call with questions or concerns
Subjective Data
-
Date of Service: January 31, 2025
Patient seen and examined at bedside, offers no complaints other than wanting diet advanced. Reports well managed post operative pain.
Objective Data
-
Vital Signs
Temp Pulse Resp BP Pulse Ox
98.7 F 112 22 115/61 96
01/31/25 03:30 01/31/25 08:15 01/31/25 08:01 01/31/25 08:15 01/31/25 08:08
Intake and Output
01/30/25 01/31/25 02/01/25
06:59 06:59 06:59
Intake Total 2027.2 / 2102.3 1360.3 / 1405.0 89.4 / 89.4
Output Total 1695 / 1695 3790 / 3830 80 / 80
Balance 333.2 / 408.3 -2429.7 / -2425.0 9.4 / 9.4
Intake:
Oral fluids 0 / 0
IV fluids (Total) 8.2 / 2002.3 1160.3 / 1205.0 89.4 / 89.4
Amiodarone 400.8 / 417.5 400.8 / 417.5 33.4 / 33.4
Fentanyl 120 / 125 15 / 15
Heparin 636 / 663 694 / 722 56 / 56
Levophed 509.2 / 524.2 31.5 / 31.5
Propofol 262.2 / 273.6 19.0 / 19.0
IV piggybacks 100 / 100 200 / 200
Output:
Gastrointestinal tube output ( 150 / 150
Total)
[place] Sump 150 / 150
Urine, Wilkerson 1545 / 1545 3790 / 3830 80 / 80
Lab Results
01/31/25 04:00
01/31/25 04:00
Calcium 8.3 mg/dl (8.4-10.2) L 01/31/25 04:00
Magnesium 2.2 mg/dl (1.6-2.3) 01/30/25 04:53
Total Bilirubin 3.7 mg/dl (0.2-1.3) H 01/31/25 04:00
Direct Bilirubin 3.0 mg/dl (0.0-0.4) H 01/29/25 03:22
AST 21 U/L (17-59) 01/31/25 04:00
ALT 12 U/L (0-50) 01/31/25 04:00
Alkaline Phosphatase 80 U/L (38-126) 01/31/25 04:00
Total Protein 4.9 g/dl (6.3-8.2) L 01/31/25 04:00
Albumin 2.4 g/dl (3.5-5.0) L 01/31/25 04:00
Physical Exam
-
No apparent distress, resting in bed comfortably
No dyspnea on nasal cannula for submental oxygen
ABD dressing CDI
Bilateral feet warm
--- NOTE | 2025-01-31 16:24 | VATNOTE ---
measured left arm 34 cm and right arm 36cm for swelling lyn. Both arms swollen +3 down to hands. PCN in room at time. This VAT RN not recommending US at this time.
--- NOTE | 2025-01-31 16:26 | PTCARENOTE ---
Patient downgraded to IMU.
[2025-01-31 17:51] LABS: Glucose - Point of Care 109 mg/dl (70-99)
[2025-01-31 20:56] LABS: APTT 78.1 Sec (23.4-35.0)
[2025-01-31] MEDS: CORDARONE 518 MG IV (23:16)
[2025-01-31 23:53] LABS: Glucose - Point of Care 116 mg/dl (70-99)
[2025-02-01] VITALS (15 sets, daily range): BP systolic 99–123; BP diastolic 32–87; PULSE 108; O2SAT 97; BMI 36.0
[2025-02-01] MEDS: ZOSYN 100 IV ×4 (00:14→17:43)
[2025-02-01] MEDS: LOPRESSOR 2.5 MG IV ×4 (00:14→17:40)
[2025-02-01] MEDS: HEPARIN 25000 UNITS/250 ML IV ×3 (03:40→21:23)
[2025-02-01] MEDS: DILAUDID 0.5 MG IV ×2 (05:46→11:03)
[2025-02-01 06:01] LABS: Glucose - Point of Care 112 mg/dl (70-99)
[2025-02-01 06:05] LABS: Hematocrit 50.3 % (39.0-52.0); Hemoglobin 16.3 g/dL (13.0-18.0); Mean Corp Hgb Conc. 32.4 g/dL (33.0-37.0); Mean Corpuscular Hgb 31.6 pg (27.0-31.0); Mean Corpuscular Volume 97.5 fL (80.0-94.0); Mean Platelet Volume 10.4 fL (7.4-10.4); Platelet Count 199 10^3/uL (130-400); Red Blood Cell Count 5.16 10^6/uL (4.70-6.10); Red Cell Dist. Width 17.2 % (11.5-14.5); White Blood Cell Count 9.4 10^3/uL (4.8-10.8)
[2025-02-01 06:11] LABS: APTT 66.9 Sec (23.4-35.0)
[2025-02-01] MEDS: NOVOLOG FLEXPEN-MODERATE RESISTANCE SC ×4 (06:27→17:37)
[2025-02-01 06:31] LABS: ALT (SGPT) 13 U/L (0-50); AST (SGOT) 25 U/L (17-59); Albumin 2.9 g/dl (3.5-5.0); Alkaline Phosphatase 82 U/L (38-126); Blood Urea Nitrogen 33 mg/dl (9-20); Calcium 8.5 mg/dl (8.4-10.2); Carbon Dioxide 28 mmol/L (22-30); Chloride 103 mmol/L (98-107); Estimated Creatinine Clearance 105 ml/min; Glucose 127 mg/dl (70-99); Magnesium 2.2 mg/dl (1.6-2.3); Potassium 4.1 mmol/L (3.5-5.1); Sodium 142 mmol/L (135-145); Total Bilirubin 4.1 mg/dl (0.2-1.3); Total Protein 5.5 g/dl (6.3-8.2); eGFR > 60.00
--- NOTE | 2025-02-01 06:47 | PTCARENOTE ---
Patient drowsy overnight, no complaints. moving self in bed. SCDs on. Patient had incont maroon/brown BM. Prior to cleaning pt medicated with dilaudid IV. Pt then began to vomit moderate amount of brown fluid. Pt sat up in bed and suctioned.
Complete bed change. PCT at bedside to assist. Pt had an ice chip prior to vomiting episode and a hiccup. pt states he feels relief and denies nausea at this time. JEANINE Garza made aware pt vomited. 2L NC in place. Afib on tele. Anasarca present. Abd
midline incision with old drainage present. Hypoactive bowel sounds. denies flatus.
Wilkerson removed this AM. due to void at 1220.
Amiodarone and Heparin gtt continue.
Call marshall within reach. Pt calls appropriately.
--- NOTE | 2025-02-01 07:39 | W.PN.HOSP.TC ---
Today's Communication/Plan
-
IV Heparin gtt
IV Zosyn
IV Amiodarone gtt
IV Lasix
patient pulled out NGT
F/U CRS recs on diet advancement (will then resume Metop/ oral amio)
Assessment / Plan
Assessment / Plan
pt is a 59 year old male with hx dilated cardiomyopathy, EF 5-10%, afib with known LV thrombus on AC non-compliant, left lower extremity arterial occlusion due to thromboembolism 07/06 and acute limb ischemia RLE s/p thromboembolectomy 11/06
presents to the ER with abdominal pain and shortness of breath. CT A/P showed thrombosis of the SMA s/p ex lap with thromboembolectomy of SMA and placement of an AbThera Vac 01/27/25.
CT A/P
IMPRESSION:
Thrombosis of superior mesenteric artery branches, new since prior examination.
No bowel thickening or pneumatosis to suggest bowel ischemia.
No acute inflammatory changes within the abdomen or pelvis.
Mild diverticulosis without acute diverticulitis.
Stable fatty infiltration of liver. Stable low-attenuation right adrenal mass 1.3 cm, most consistent with benign adenoma.
Hazy attenuation in the dependent lung bases. Groundglass attenuation. Small bilateral pleural effusions. Possible mild pulmonary edema and/or atelectasis.
LUIS ENRIQUE 01/04/25
CONCLUSIONS
Left ventricle is mildly dilated. Severely reduced left ventricular systolic
function. Global hypokinesis. Normal left ventricular wall thickness. Left
ventricular ejection fraction is 10-15%.
Normal right ventricular size and function.
Moderately dilated left atrium.
Mildly dilated right atrium.
Left atrial appendage is mildly dilated. Definite massive occlusive thrombus in
the left atrial appendage. Peak velocities within the left atrial appendage are
30cm/sec.
Mild mitral regurgitation.
Moderate to severe tricuspid regurgitation.
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
Hypoxic Resp Failure
-appreciate vascular, CRS, Academic Affairs Assistant consults
-s/p OR 01/27/25; thromboembolectomy of SMA, placement ABThera Vac
-s/p OR 01/28: Procedure Performed: Exploratory laparotomy, mesenteric angiography, partial omentectomy, tap block, abdominal closure
-IV heparin gtt
-IV Zosyn
-IV Levophed now off
-patient pulled NGT out overnight 01/31-02/01 - F/U further CRS recs on diet advancement
Hypoxic Respiratory Failure status post intubation
-extubated on 01/30
hypokalemia- repleted
permanent AFIB with RVR - rate above 120s-
-IV amiodarone gtt
-IV Heparin gtt
-resume Metoprolol when able to take PO
-resume Eliquis when confirm no need for further procedures
acute on chronic HFrEF (EF 5-10%)
-hold DETECTIVE INVESTIGATOR Entresto and Metop XL
-IV Lasix BID
-appreciate Cardiology
-resume Metop when able to take PO
hyperthyroid--new diagnosis last admission?--on methimazole but would hold for now
-repeat TSH tomorrow AM
PAD
active smoker--educated on importance of cessation
DVT proph--IV heparin drip
Code status - Full Code
Total Critical Care Time 40 minutes. I was immediately available to the patient and staff. I personally examined, reviewed labs, diagnostic images/reports, interpretations, treatment plans, discussed patient care with other providers and family
or caregivers (if patient is unable to make decisions), entered orders as appropriate and documented the medical record.
Anticipated Discharge: > 48 hours
Subjective/Interval History
-
Date of Service: February 01, 2025
pulled NGT out himself yesterday
currently denies pain
vomited overnight
Objective Data
-
Labs:
Laboratory Results
01/31/25 02/01/25 02/01/25
20:32 05:40 12:25
WBC 9.4
Hgb 16.3
Hct 50.3
Plt Count 199
APTT 78.1 H 66.9 H Pending
Sodium 142
Potassium 4.1
Chloride 103
Carbon Dioxide 28
BUN 33 H
Creatinine 1.0
Glucose 127 H
Calcium 8.5
Total Bilirubin 4.1 H
AST 25
ALT 13
Alkaline Phosphatase 82
Vital Signs:
Vital Signs
Temp Pulse Resp BP Pulse Ox
97.2 F 102 24 114/82 96
02/01/25 07:25 02/01/25 07:00 02/01/25 07:00 02/01/25 06:16 02/01/25 07:00
I&O
01/31/25 02/01/25 02/02/25
06:59 06:59 06:59
Intake Total 1360.3 / 1405.0 1086.4 / 1086.4
Output Total 3790 / 3830 3030 / 3030
Balance -2429.7 / -2425.0 -1943.6 / -1943.6
Review of Systems
-
History Source: Patient
All other systems: Reviewed and negative
Physical Exam
-
General: Well Developed and Well Nourished
HEENT: Normocephalic and Atraumatic
Respiratory: Clear to Auscultation; Negative Wheezes, Rales, Rhonchi or Crackles
Cardiac: Irregular Rhythm and Tachycardic
GI: Soft and Other (abdomen gauze with mild oozing)
Genito-urinary: Wilkerson
Musculoskeletal: No Clubbing and No Cyanosis; Negative No Edema (2+ LE edema bilaterally)
Skin: Warm
Neuro: Awake and AO x 3
Psych: Calm
Data Reviewed
-
Diagnostic Radiology: Report Reviewed by me
Labs: Labs Reviewed by me
[2025-02-01] MEDS: LASIX 20 MG IV ×2 (08:02→16:46)
[2025-02-01] MEDS: NSS (PRESERVATIVE FREE) 10 ML IV (08:11)
[2025-02-01] MEDS: PROTONIX IV 40 MG IV (08:11)
--- NOTE | 2025-02-01 08:18 | PN.DE.MGMTRT ---
Insulin Management
- -
02/01/2025: Diabetes Management Follow up
59 year old male with PMH: A-fib, hyperthyroidism, chronic HFrEF, LLE arterial occlusion due to thromboembolism (06/2023), h/o acute limb ischemia of RLE with thromboembolic occlusion of the right iliac system s/p thromboembolectomy of the right
iliac system + thromboembolectomy of the right SFA, popliteal artery.
Patient presented to the ED with abdominal pain and SOB. CTA showed thrombosis of the SMA s/p ex lap with thromboembolectomy of SMA and placement of an AbThera Vac 01/27/25. Postoperatively he was started on the glycemic protocol due to
hyperglycemia. Was taking Jardiance 10mg daily MARKER HAND. A1C 6.3%, Cr 1.1, eGFR >60.
Pt awake, alert, oriented, sitting up in bed, offers no complaints, able to discuss diabetes care plan.
POD# 5 exploratory laparotomy, mesenteric angiography, partial omentectomy, tap block, abdominal closure
Pt self extubated and NG tube removed by patient yesterday, transitioned off insulin infusion to SQ
Remains NPO. Glucose stable and in range, 109 to 121, with moderate corrective insulin Q6 hours.
Will make no changes. Will cont to follow. Discussed with Nurse and ICU team.
Diabetes History
- -
Type of Diabetes: 2
Pre-Admission Diabetes Regimen
02/01/25
05:40
Creatinine 1.0
Lab Results
Hemoglobin A1c 6.3 % (4.0-5.6) H 01/27/25 14:42
Insulin Pump Settings
IP Diabetes Regimen
01/31/25 01/31/25 01/31/25
11:40 17:40 23:40
Glucose
POC Glucose 116 H 109 H 116 H
02/01/25 02/01/25
05:40 05:49
Glucose 127 H
POC Glucose 112 H
Meal type: Lunch
Patient Education
--- NOTE | 2025-02-01 10:58 | W.PN.CARDCBS ---
Today's Communication / Plan
-
Continue IV amiodarone. Increase Lopressor to 5 mg IV Q6 for better rate control.
Continue IV heparin.
Eventually restart oral medication when bowel has recovered. Unfortunately NG tube had to be replaced with nausea
Continue IV Lasix. Creatinine normal.
Impression / Plan
-
Primary Grave Cleaner: Dr. Pickett
Primary EP: Dr Solorio
PCP: Dr Peñaloza
Patient with history of cardioembolic occlusion of left common femoral artery 06/2023, right iliac artery occlusion status post thromboembolectomy 10/29/2024. During that time was also noted to be in persistent rapid A-fib initially discovered
07/2023 with history of noncompliance with medications. Also with known low EF suspected tachycardia mediated status post cath 05/2024 with nonobstructive CAD.
He presented back to the ED 11/2024 due to generalized malaise and was noted to have a seroma of his right groin s/p I/D and wound vac. He was also found to be in decompensated heart failure with reduced ejection fraction and have atrial
fibrillation with rapid ventricular rates. Plan for LUIS ENRIQUE cardioversion but LUIS ENRIQUE 01/04/2025 showed massive occlusive thrombus in left atrial appendage. Most recently, presented on 01/27/2025 with acute onset abdominal pain found to have acute
mesenteric ischemia with SMA occlusion, went to OR for exploratory laparotomy and SMA thrombectomy. Postop shock with metabolic/lactic acidosis, on Levophed and intubated. Cardiology consulted for management of atrial fibrillation and heart failure
Assessment:
Acute mesenteric ischemia with SMA occlusion, status post exploratory lap and SMA thrombectomy 12/30/2024
Acute hypoxemic respiratory failure
Shock with metabolic/lactic acidosis
Right groin seroma
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
Persistent atrial fibrillation, first discovered July 2023
elevated troponin
Chronic OAC with eliquis
Left atrial appendage thrombus by LUIS ENRIQUE 12/2024
Chronic HFrEF
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
NSVT
Hyperthyroidism
Noncompliance
Depression
History of ETOH and tobacco abuse
Obesity
Ventilator dependent respiratory failure
ECHO 04/04/2024: EF 10 to 15%, severe global hypokinesis, mild MR, trace TR, PAP 30 to 33 mmHg
Cardiac catheterization 05/22/2024: Nonobstructive coronary disease with normal to mildly elevated right and left-sided filling pressures with normal cardiac output
Echocardiogram 10/30/2024: Severely dilated left ventricle, severely reduced LV systolic function, global hypokinesis with ejection fraction of 5-10%, moderate to severe eccentric TR with PA pressure of 30-35 mmHg, small pericardial effusion.
LUIS ENRIQUE 01/04/2025: LVEF 10 to 15%, definite massive occlusive thrombus in left atrial appendage, mild MR, moderate to severe TR
Plan:
He is now extubated and awake. Off all pressors. Hopefully can restart oral medications soon.
Regarding cardioembolic SMA occlusion/ischemic bowel status post SMA embolectomy with second look laparotomy, abdomen is now closed, no evidence of necrotic bowel, as he recovers, will gradually reintroduce GDMT for severe LV dysfunction.
Continue IV amiodarone and IV Lopressor for atrial fibrillation with rapid rates. Eventually restart Toprol when blood pressure stable. Would also start oral amiodarone to help with rate control. Will increase IV Lopressor to 5 mg Q6.
His weight is down and creatinine remained stable. Continue IV Lasix. His creatinine remains stable.
Regarding 3 cardioembolic events over the last 9 months, this is related to noncompliance and presumably he will now be in a controlled environment for the foreseeable future where anticoagulants can be consistently administered. In the setting of
a massive left atrial appendage thrombus he is not a candidate for Watchman or LA appendage clip for the foreseeable future. Continue IV heparin. Original plan was to attempt a PVI to restore sinus rhythm. Would consider a repeat LUIS ENRIQUE once he
recovers from this event to reevaluate his left atrial appendage. Continue IV heparin for now
His severe LV dysfunction is likely tachycardia mediated and related to noncompliance. As above, since he will presumably require a skilled facility, medications will hopefully be reliably administered and might permit recovery of his ejection
fraction.
His cardiomyopathy was nonischemic by cardiac catheterization in 2023, so elevated troponin is non-ND myocardial injury.
Continue Zosyn and respiratory and postoperative care.
I again discussed with him at length the importance of compliance with his medication.
Discussed with tele grout sewer line repairer.
cc time 32 min
Progress Note - Grave Cleaner
Subjective
Date of Service: February 01, 2025
Had more nausea last night and NG tube placed again. Denies chest pains.
Objective
Labs:
02/01/25 05:40
02/01/25 05:40
Labs
Hgb 16.3 g/dL (13.0-18.0) 02/01/25 05:40
Hct 50.3 % (39.0-52.0) 02/01/25 05:40
Plt Count 199 10^3/uL (130-400) 02/01/25 05:40
PT 18.0 Sec (11.4-14.6) H 01/28/25 06:36
INR 1.46 01/28/25 06:36
APTT 66.9 Sec (23.4-35.0) H 02/01/25 05:40
Sodium 142 mmol/L (135-145) 02/01/25 05:40
Potassium 4.1 mmol/L (3.5-5.1) 02/01/25 05:40
BUN 33 mg/dl (9-20) H 02/01/25 05:40
Creatinine 1.0 mg/dL (0.7-1.3) 02/01/25 05:40
Glucose 127 mg/dl (70-99) H 02/01/25 05:40
Vital Signs and I&O:
Vital Signs
Temp Pulse Resp BP Pulse Ox
97.2 F 115 24 112/79 96
02/01/25 07:25 02/01/25 08:02 02/01/25 07:00 02/01/25 08:02 02/01/25 07:00
Vital Signs
Temp Pulse Resp BP Pulse Ox
97.2 F 115 24 112/79 96
02/01/25 07:25 02/01/25 08:02 02/01/25 07:00 02/01/25 08:02 02/01/25 07:00
Intake & Output
01/30/25 01/31/25 02/01/25 02/02/25
06:59 06:59 06:59 06:59
Intake Total 2028.2 / 2103.3 1360.3 / 1405.0 1086.4 / 1086.4
Output Total 1695 / 1695 3790 / 3830 3030 / 3030
Balance 333.2 / 408.3 -2429.7 / -2425.0 -1943.6 / -1943.6
Physical Exam
Physical Exam
GEN: No distress, awake,
HEENT: supple, anicteric, mmm
LUNGS: scatt rhonchi
CV: Irreg, S1/S2, 1/6 syst LSB, no gallop
ABD: soft, BS dec, mild distended
EXT: No edema
NEURO: Gross non-focal
SKIN: No rash
--- NOTE | 2025-02-01 11:24 | CM ---
CM following re: discharge planning.
Reviewed pt's chart, met with pt.
Pt is s/p Exploratory laparotomy, requires 2L NC of O2, continue supportive care.
Pt lives in an apartment/rented room, , 2nd floor, 2FF of steps to get to his apartment. Pt has no children, has 4 brothers, 3 sisters and a mother, one brother lives with mother and brother Jag lives in [facility]. Pt has supportive friend
Angie. 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
PT and OT will evaluate the pt to determine a level of care at discharge.
D/C plan: uncertain at this time and will depend on pt's progress.
CM will follow with discharge plan updates as hospitalization progress
--- NOTE | 2025-02-01 11:39 | W.PN.CRS1 ---
Today's Communication / Plan
-
NG tube
Assessment/Plan
-
POD# 5 exploratory laparotomy, mesenteric angiography, partial omentectomy, tap block, abdominal closure
01/31-extubated, NG tube removed by patient
Hgb 9.4, hemoglobin 16.3
-No plans for further surgery at this time
-Given nausea and vomiting, replace NG tube. Likely ileus.
-Remain n.p.o.
-Daily wound dressing changes, tree removed by provider at bedside
-Out of bed, okay for ambulation for 30 minutes with NG tube clamped
-Wilkerson in place
Subjective Data
Procedure
01/27/2025- Ex lap, SMA embolectomy
Subjective Data
Date of Service: February 01, 2025
Patient states he feels nauseous and he vomited once this morning. He is distended.
Objective Data
-
Vital Signs
Temp Pulse Resp BP Pulse Ox
97.2 F 107 24 106/56 96
02/01/25 07:25 02/01/25 11:04 02/01/25 07:00 02/01/25 11:04 02/01/25 07:00
Intake & Output
01/31/25 02/01/25 02/02/25
06:59 06:59 06:59
Intake Total 1360.3 / 1405.0 1086.4 / 1086.4
Output Total 3790 / 3830 3030 / 3030
Balance -2429.7 / -2425.0 -1943.6 / -1943.6
Intake:
Oral fluids 120 / 120
IV fluids (Total) 1160.3 / 1205.0 536.4 / 536.4
Amiodarone 400.8 / 417.5 200.4 / 200.4
Fentanyl 15 / 15
Heparin 694 / 722 336 / 336
Levophed 31.5 / 31.5
Propofol 19.0 / 19.0
IV piggybacks 200 / 200 400 / 400
Amount instilled into GI Tube (
Total)
[place] Sump
Output:
Urine, Wilkerson 3790 / 3830 3030 / 3030
Lab Results
02/01/25 05:40
02/01/25 05:40
Physical Exam
-
General: No Acute Distress and AOx3
Abdomen: Distended and Non Tender
Skin: Warm and Dry
--- NOTE | 2025-02-01 11:46 | PTCARENOTE ---
NG tube placement ordered. Reviewed with Pt, Sabra-sump placed in R nare and taped at 70cm, immediately draining small amount of green drainage. During placement pt tried to grab tube and remove but did allow nurse to advance. Pt reported some
relief. Reviewed importance of leaving tube in. Will continue to monitor and assess.
[2025-02-01 12:02] LABS: Glucose - Point of Care 115 mg/dl (70-99)
--- NOTE | 2025-02-01 14:05 | W.PN.ONC2 ---
Today's Communication / Plan
-
.
Impression
Impression
59-year-old PMH vasculopath, smoker, R iliac artery occlusion s/p thromboembolectomy of right iliac system, right superficial femoral artery, popliteal artery, profunda femoral artery 10/29/2024, noncompliant with oral anticoagulation presents with
acute abdominal pain and SMA occlusion requiring thromboembolectomy of superior mesenteric artery.
IMP:
Vasculopathy
Thrombosis of superior mesenteric artery branches
Septic Shock in setting of ischemic bowel from SMA Thrombosis
Hypoxic ventilator dependent resp Failure
permanent AFIB with RVR
acute on chronic HFrEF (EF 5-10%)
hyperthyroid
PAD
active smoker
Plan
Plan
At this time, continue IV heparin with management per the IV heparin dosing protocol adjusted per the PTT
Xa level therapeutic
Anticardiolipin and beta 2 microglobulin are negative for APLS. Eventual LA, current results would be difficult to interpret in light of his current clinical condition and results would not change acute management
Continued management per vascular surgery
Subjective/Objective
Subjective
no new complaints
Vital Signs:
Vital Signs
Temp Pulse Resp BP Pulse Ox
98.3 F 107 24 106/56 95
02/01/25 12:00 02/01/25 11:04 02/01/25 07:00 02/01/25 11:04 02/01/25 08:53
Lab Results:
Laboratory Data
WBC 9.4 10^3/uL (4.8-10.8) 02/01/25 05:40
Hgb 16.3 g/dL (13.0-18.0) 02/01/25 05:40
Plt Count 199 10^3/uL (130-400) 02/01/25 05:40
PT 18.0 Sec (11.4-14.6) H 01/28/25 06:36
INR 1.46 01/28/25 06:36
APTT 97.0 Sec (23.4-35.0) H 02/01/25 12:29
eGFR > 60.00 02/01/25 05:40
[2025-02-01 17:26] LABS: Glucose - Point of Care 110 mg/dl (70-99)
[2025-02-01 19:41] LABS: APTT 89.6 Sec (23.4-35.0)
--- NOTE | 2025-02-01 20:22 | PTCARENOTE ---
Pt Aox3, VSS, Afib on monitor, heparin gtt therapeutic, Amiodarone infusing 0.50mg. NGT right nare, small amount of green output. Pt did have a Watery clear BM. no complaints at this time, plan of care on going.
[2025-02-02] VITALS (12 sets, daily range): BP systolic 104–127; BP diastolic 62–89; BMI 36.1
[2025-02-02 00:03] LABS: Glucose - Point of Care 121 mg/dl (70-99)
[2025-02-02] MEDS: LOPRESSOR 2.5 MG IV ×2 (00:29→06:04)
[2025-02-02] MEDS: ZOSYN 100 IV ×5 (00:29→23:50)
[2025-02-02] MEDS: NOVOLOG FLEXPEN-MODERATE RESISTANCE SC ×4 (00:29→17:18)
[2025-02-02] MEDS: CORDARONE 518 MG IV (04:13)
[2025-02-02 04:30] LABS: Hematocrit 47.6 % (39.0-52.0); Hemoglobin 15.8 g/dL (13.0-18.0); Mean Corp Hgb Conc. 33.2 g/dL (33.0-37.0); Mean Corpuscular Hgb 32.1 pg (27.0-31.0); Mean Corpuscular Volume 96.7 fL (80.0-94.0); Mean Platelet Volume 10.7 fL (7.4-10.4); Platelet Count 186 10^3/uL (130-400); Red Blood Cell Count 4.92 10^6/uL (4.70-6.10); Red Cell Dist. Width 17.2 % (11.5-14.5); White Blood Cell Count 14.1 10^3/uL (4.8-10.8)
[2025-02-02 04:33] LABS: APTT 94.9 Sec (23.4-35.0)
[2025-02-02 04:46] LABS: Blood Urea Nitrogen 35 mg/dl (9-20); Calcium 8.4 mg/dl (8.4-10.2); Carbon Dioxide 29 mmol/L (22-30); Chloride 104 mmol/L (98-107); Estimated Creatinine Clearance 105 ml/min; Glucose 120 mg/dl (70-99); Magnesium 2.3 mg/dl (1.6-2.3); Potassium 3.9 mmol/L (3.5-5.1); Sodium 141 mmol/L (135-145); eGFR > 60.00
[2025-02-02 05:14] LABS: TSH Reflex To Free T4 0.91 uIU/ml (0.47-4.68)
[2025-02-02] MEDS: HEPARIN 25000 UNITS/250 ML IV ×2 (05:15→14:58)
[2025-02-02 06:19] LABS: Glucose - Point of Care 112 mg/dl (70-99)
--- NOTE | 2025-02-02 07:34 | W.PN.HOSP.TC ---
Today's Communication/Plan
-
see plan
Assessment / Plan
Assessment / Plan
pt is a 59 year old male with hx dilated cardiomyopathy, EF 5-10%, afib with known LV thrombus on AC non-compliant, left lower extremity arterial occlusion due to thromboembolism 07/06 and acute limb ischemia RLE s/p thromboembolectomy 11/06
presents to the ER with abdominal pain and shortness of breath. CT A/P showed thrombosis of the SMA s/p ex lap with thromboembolectomy of SMA and placement of an AbThera Vac 01/27/25.
CT A/P
IMPRESSION:
Thrombosis of superior mesenteric artery branches, new since prior examination.
No bowel thickening or pneumatosis to suggest bowel ischemia.
No acute inflammatory changes within the abdomen or pelvis.
Mild diverticulosis without acute diverticulitis.
Stable fatty infiltration of liver. Stable low-attenuation right adrenal mass 1.3 cm, most consistent with benign adenoma.
Hazy attenuation in the dependent lung bases. Groundglass attenuation. Small bilateral pleural effusions. Possible mild pulmonary edema and/or atelectasis.
LUIS ENRIQUE 01/04/25
CONCLUSIONS
Left ventricle is mildly dilated. Severely reduced left ventricular systolic
function. Global hypokinesis. Normal left ventricular wall thickness. Left
ventricular ejection fraction is 10-15%.
Normal right ventricular size and function.
Moderately dilated left atrium.
Mildly dilated right atrium.
Left atrial appendage is mildly dilated. Definite massive occlusive thrombus in
the left atrial appendage. Peak velocities within the left atrial appendage are
30cm/sec.
Mild mitral regurgitation.
Moderate to severe tricuspid regurgitation.
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
Hypoxic Resp Failure
-appreciate vascular, CRS, Chemical Instrumentation Officer consults
-s/p OR 01/27/25; thromboembolectomy of SMA, placement ABThera Vac
-s/p OR 01/28: Procedure Performed: Exploratory laparotomy, mesenteric angiography, partial omentectomy, tap block, abdominal closure
-IV heparin gtt
-IV Zosyn
-IV Levophed now off
-patient pulled NGT out overnight 01/31-02/01 - replaced 02/01 as patient had nausea/likely ileus
-F/U further CRS recs
Hypoxic Respiratory Failure status post intubation
-extubated on 01/30
hypokalemia- repleted
permanent AFIB with RVR - rate above 120s-
-IV amiodarone gtt
-IV Heparin gtt
-resume Metoprolol when able to take PO
-resume Eliquis when confirm no need for further procedures
acute on chronic HFrEF (EF 5-10%)
-hold LOFT WORKER APPRENTICE Entresto and Metop XL
-*hold Lasix for today - monitor weights daily and resume pills when able to take PO
-appreciate Cardiology
-resume Metop when able to take PO
hyperthyroid--new diagnosis last admission?--on methimazole but would hold for now
-repeat TSH this AM WNL
PAD
active smoker--educated on importance of cessation
DVT proph--IV heparin drip
Code status - Full Code
Total Critical Care Time 40 minutes. I was immediately available to the patient and staff. I personally examined, reviewed labs, diagnostic images/reports, interpretations, treatment plans, discussed patient care with other providers and family
or caregivers (if patient is unable to make decisions), entered orders as appropriate and documented the medical record.
Anticipated Discharge: > 48 hours
Subjective/Interval History
-
Date of Service: February 02, 2025
no new complaints
denies chest pain or shortness of breath
denies swelling
no lightheadedness/dizziness
Objective Data
-
Labs:
Laboratory Results
02/01/25 02/02/25
19:15 04:06
WBC 14.1 H
Hgb 15.8
Hct 47.6
Plt Count 186
APTT 89.6 H 94.9 H
Sodium 141
Potassium 3.9
Chloride 104
Carbon Dioxide 29
BUN 35 H
Creatinine 1.0
Glucose 120 H
Calcium 8.4
Vital Signs:
Vital Signs
Temp Pulse Resp BP Pulse Ox
97.3 F 113 24 126/76 96
02/02/25 07:20 02/02/25 06:04 02/02/25 04:30 02/02/25 06:04 02/02/25 04:30
I&O
02/01/25 02/02/25 02/03/25
06:59 06:59 06:59
Intake Total 1086.4 / 1086.4 996 / 996
Output Total 3030 / 3030 1050 / 1050
Balance -1943.6 / -1943.6 -54 / -54
Review of Systems
-
History Source: Patient
All other systems: Reviewed and negative
Physical Exam
-
General: Well Developed and Well Nourished
HEENT: Normocephalic and Atraumatic
Respiratory: Clear to Auscultation; Negative Wheezes, Rales, Rhonchi or Crackles
Cardiac: Irregular Rhythm and Tachycardic
GI: Soft and Other (abdomen gauze with mild oozing)
Genito-urinary: Wilkerson
Musculoskeletal: No Clubbing and No Cyanosis; Negative No Edema (2+ LE edema bilaterally)
Skin: Warm
Neuro: Awake and AO x 3
Psych: Calm
Data Reviewed
-
Diagnostic Radiology: Report Reviewed by me
Labs: Labs Reviewed by me
[2025-02-02] MEDS: PROTONIX IV 40 MG IV (08:28)
[2025-02-02] MEDS: NSS (PRESERVATIVE FREE) 10 ML IV (08:28)
--- NOTE | 2025-02-02 08:43 | W.PN.CARDCBS ---
Today's Communication / Plan
-
Continue IV amiodarone. Increase IV Lopressor to 5 mg IV every 12 for better rate control
Continue IV amiodarone. Hold Lasix for next 24 hours. Creatinine remains normal
Hopefully NG tube will be removed soon.
Continue IV heparin and eventually restart Eliquis.
Would consider eventual repeat LUIS ENRIQUE to reevaluate left atrial appendage as outpatient.
Impression / Plan
-
Primary Refinery Operator Helper: Dr. Pickett
Primary EP: Dr Solorio
PCP: Dr Peñaloza
Patient with history of cardioembolic occlusion of left common femoral artery 06/2023, right iliac artery occlusion status post thromboembolectomy 10/29/2024. During that time was also noted to be in persistent rapid A-fib initially discovered
07/2023 with history of noncompliance with medications. Also with known low EF suspected tachycardia mediated status post cath 05/2024 with nonobstructive CAD.
He presented back to the ED 11/2024 due to generalized malaise and was noted to have a seroma of his right groin s/p I/D and wound vac. He was also found to be in decompensated heart failure with reduced ejection fraction and have atrial
fibrillation with rapid ventricular rates. Plan for LUIS ENRIQUE cardioversion but LUIS ENRIQUE 01/04/2025 showed massive occlusive thrombus in left atrial appendage. Most recently, presented on 01/27/2025 with acute onset abdominal pain found to have acute
mesenteric ischemia with SMA occlusion, went to OR for exploratory laparotomy and SMA thrombectomy. Postop shock with metabolic/lactic acidosis, on Levophed and intubated. Cardiology consulted for management of atrial fibrillation and heart failure
Assessment:
Acute mesenteric ischemia with SMA occlusion, status post exploratory lap and SMA thrombectomy 12/30/2024
Acute hypoxemic respiratory failure
Shock with metabolic/lactic acidosis
Right groin seroma
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
Persistent atrial fibrillation, first discovered July 2023
elevated troponin
Chronic OAC with eliquis
Left atrial appendage thrombus by LUIS ENRIQUE 12/2024
Chronic HFrEF
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
NSVT
Hyperthyroidism
Noncompliance
Depression
History of ETOH and tobacco abuse
Obesity
Ventilator dependent respiratory failure
ECHO 04/04/2024: EF 10 to 15%, severe global hypokinesis, mild MR, trace TR, PAP 30 to 33 mmHg
Cardiac catheterization 05/22/2024: Nonobstructive coronary disease with normal to mildly elevated right and left-sided filling pressures with normal cardiac output
Echocardiogram 10/30/2024: Severely dilated left ventricle, severely reduced LV systolic function, global hypokinesis with ejection fraction of 5-10%, moderate to severe eccentric TR with PA pressure of 30-35 mmHg, small pericardial effusion.
LUIS ENRIQUE 01/04/2025: LVEF 10 to 15%, definite massive occlusive thrombus in left atrial appendage, mild MR, moderate to severe TR
Plan:
Continues to slowly improve but remains n.p.o. with NG tube in place
Regarding cardioembolic SMA occlusion/ischemic bowel status post SMA embolectomy with second look laparotomy, abdomen is now closed, no evidence of necrotic bowel, as he recovers, will gradually reintroduce GDMT for severe LV dysfunction.
Continue IV amiodarone and IV Lopressor for atrial fibrillation with rapid rates. Eventually restart Toprol when blood pressure stable. Would also start oral amiodarone to help with rate control. Will increase IV Lopressor to 5 mg Q6.
His weight is down and creatinine remained stable. Hold Lasix for today as he has diuresed well. Likely resume oral Lasix over next 24 hours his creatinine remains stable.
Regarding 3 cardioembolic events over the last 9 months, this is related to noncompliance and presumably he will now be in a controlled environment for the foreseeable future where anticoagulants can be consistently administered. In the setting of
a massive left atrial appendage thrombus he is not a candidate for Watchman or LA appendage clip for the foreseeable future. Continue IV heparin. Original plan was to attempt a PVI to restore sinus rhythm. Would consider a repeat LUIS ENRIQUE once he
recovers from this event to reevaluate his left atrial appendage. Continue IV heparin for now. Eventually restart Eliquis.
His severe LV dysfunction is likely tachycardia mediated and related to noncompliance. As above, since he will presumably require a skilled facility, medications will hopefully be reliably administered and might permit recovery of his ejection
fraction.
His cardiomyopathy was nonischemic by cardiac catheterization in 2023, so elevated troponin is non-PA myocardial injury.
Continue Zosyn and respiratory and postoperative care.
I again discussed with him at length the importance of compliance with his medication.
cc time 35 min
Progress Note - Refinery Operator Helper
Subjective
Date of Service: February 02, 2025
Awake but still with NG tube in place. Denies chest pain. Denies palpitations
Objective
Labs:
02/02/25 04:06
02/02/25 04:06
Labs
Hgb 15.8 g/dL (13.0-18.0) 02/02/25 04:06
Hct 47.6 % (39.0-52.0) 02/02/25 04:06
Plt Count 186 10^3/uL (130-400) 02/02/25 04:06
PT 18.0 Sec (11.4-14.6) H 01/28/25 06:36
INR 1.46 01/28/25 06:36
APTT 94.9 Sec (23.4-35.0) H 02/02/25 04:06
Sodium 141 mmol/L (135-145) 02/02/25 04:06
Potassium 3.9 mmol/L (3.5-5.1) 02/02/25 04:06
BUN 35 mg/dl (9-20) H 02/02/25 04:06
Creatinine 1.0 mg/dL (0.7-1.3) 02/02/25 04:06
Glucose 120 mg/dl (70-99) H 02/02/25 04:06
Vital Signs and I&O:
Vital Signs
Temp Pulse Resp BP Pulse Ox
97.3 F 113 24 126/76 96
02/02/25 07:20 02/02/25 06:04 02/02/25 04:30 02/02/25 06:04 02/02/25 04:30
Vital Signs
Temp Pulse Resp BP Pulse Ox
97.3 F 113 24 126/76 96
02/02/25 07:20 02/02/25 06:04 02/02/25 04:30 02/02/25 06:04 02/02/25 04:30
Intake & Output
01/31/25 02/01/25 02/02/25 02/03/25
06:59 06:59 06:59 06:59
Intake Total 1360.3 / 1405.0 1086.4 / 1086.4 996 / 996
Output Total 3790 / 3830 3030 / 3030 1050 / 1050
Balance -2429.7 / -2425.0 -1943.6 / -1943.6 -54 / -54
Physical Exam
Physical Exam
GEN: No distress, awake, Ox3
HEENT: supple, anicteric, mmm, ng
LUNGS: CTA, no wheezes/rales
CV: Irreg, S1/S2, 1/6 syst LSB, no gallop
ABD: soft, BS+, incisional tenderness
EXT: No edema
NEURO: Gross non-focal
SKIN: No rash
--- NOTE | 2025-02-02 08:46 | PTCARENOTE ---
pt aaox3. states no pain. nc2l. breath sounds diminished rhonchi. midline dressing c/d/i. ngt placement checked and flushed draining green bile.
[2025-02-02 12:09] LABS: Phosphorus 3.8 mg/dl (2.5-4.5); Triglycerides 208 mg/dl (10-149)
[2025-02-02] MEDS: LOPRESSOR 5 MG IV ×3 (12:21→23:50)
[2025-02-02 12:33] LABS: Glucose - Point of Care 113 mg/dl (70-99)
[2025-02-02] MEDS: THIAMINE INJECTION 100 MG IV (13:15)
[2025-02-02] MEDS: DILAUDID 0.5 MG IV ×2 (13:18→17:57)
--- NOTE | 2025-02-02 13:28 | W.PN.GS2 ---
Addendum entered and electronically signed by Alli Arevalo MD 02/02/25 16:06:
I saw and examined the patient.
The Heel Painter's note was reviewed and I agree with the note.
Comment: No com,plaints. Clamped tube during my encounter and quickly began belching and appeared to have nausea though he denied this. Belly soft, approp ttp. Would cont NPO/NGT. Will initiate TPN as expect ongoing ileus.
Original Note:
Today's Communication / Plan
-
Start TPN
NPO/NGT
Assessment / Plan
-
59-year-old male with hx tobacco abuse, dilated cardiomyopathy, EF 5-10%, afib with known LV thrombus on AC non-compliant, left lower extremity arterial occlusion due to thromboembolism 07/06 and acute limb ischemia RLE s/p thromboembolectomy 11/06
presenting with SMA thrombosis.
POD #6 Exploratory laparotomy, thromboembolectomy of superior mesenteric artery, and placement of AbThera VAC, status post OR with colorectal surgery with abdominal closure
NGT replaced on 02/01 for vomiting, bilious outputs noted, symptomatic with clamping
Some flatus
Tachycardia, BP stable
Leukocytosis present, h/h stable
--Continue NPO with ngt to suction
--Given prolonged NPO status, will start TPN. Dietary consulted for recs
--H/H remains stable on IV heparin, hold on oral AC until good bowel recovery
--Incisional wound care
--analgesics/antiemetics prn
Subjective Data
-
Date of Service: February 02, 2025
Patient seen and examined at bedside with Dr. Arevalo. Denies n/v today. Passed some flatus. Belching when NGT clamped. Pain is minimal/well controlled.
Objective Data
-
Intake and Output
02/01/25 02/02/25 02/03/25
06:59 06:59 06:59
Intake Total 1086.4 / 1086.4 996 / 996
Output Total 3030 / 3030 1050 / 1050
Balance -1943.6 / -1943.6 -54 / -54
Intake:
Oral fluids 120 / 120
IV fluids (Total) 536.4 / 536.4 996 / 996
Amiodarone 200.4 / 200.4 352 / 352
Heparin 336 / 336 644 / 644
IV piggybacks 400 / 400
Amount instilled into GI Tube (
Total)
[place] Sump
Output:
Urine, [place] 3030 / 3030
Urine, Voided 1050 / 1050
Other:
How many times incontinent 1
MODERATE amount urine
How many times incontinent 1
SATURATED amount urine
Vital Signs
Temp Pulse Resp BP Pulse Ox
97.3 F 119 18 115/83 96
02/02/25 07:20 02/02/25 12:21 02/02/25 08:30 02/02/25 12:21 02/02/25 08:30
Lab Results
02/02/25 04:06
02/02/25 04:06
Calcium 8.4 mg/dl (8.4-10.2) 02/02/25 04:06
Phosphorus 3.8 mg/dl (2.5-4.5) 02/02/25 04:06
Magnesium 2.3 mg/dl (1.6-2.3) 02/02/25 04:06
Total Bilirubin 4.1 mg/dl (0.2-1.3) H 02/01/25 05:40
Direct Bilirubin 3.0 mg/dl (0.0-0.4) H 01/29/25 03:22
AST 25 U/L (17-59) 02/01/25 05:40
ALT 13 U/L (0-50) 02/01/25 05:40
Alkaline Phosphatase 82 U/L (38-126) 02/01/25 05:40
Total Protein 5.5 g/dl (6.3-8.2) L 02/01/25 05:40
Albumin 2.9 g/dl (3.5-5.0) L 02/01/25 05:40
Physical Exam
-
NAD
ABD soft, mild distention, incisional tenderness as expected. NGT with bilious outputs (700ml since this am)
Incision with intact dressing, some shadowing
Urine orange in condom cath collection bag
--- NOTE | 2025-02-02 15:25 | CHAP ---
Buster Hsu' was resting, responded to hearing his name. He smiled and spoke softly, welcomed prayer. Emotional and spiritual support provided.
[2025-02-02 17:18] LABS: Glucose - Point of Care 119 mg/dl (70-99)
[2025-02-02] MEDS: Parenteral Nutrition, Central 1060 IV (21:27)
[2025-02-02 23:45] LABS: Glucose - Point of Care 116 mg/dl (70-99)
[2025-02-03] VITALS (13 sets, daily range): BP systolic 99–145; BP diastolic 61–128; BMI 35.0
[2025-02-03] MEDS: NOVOLOG FLEXPEN-MODERATE RESISTANCE SC ×4 (00:16→18:41)
[2025-02-03] MEDS: HEPARIN 25000 UNITS/250 ML IV ×3 (00:22→16:58)
[2025-02-03 04:14] LABS: Hematocrit 45.6 % (39.0-52.0); Hemoglobin 14.7 g/dL (13.0-18.0); Mean Corp Hgb Conc. 32.2 g/dL (33.0-37.0); Mean Corpuscular Hgb 31.4 pg (27.0-31.0); Mean Corpuscular Volume 97.4 fL (80.0-94.0); Mean Platelet Volume 10.9 fL (7.4-10.4); Platelet Count 215 10^3/uL (130-400); Red Blood Cell Count 4.68 10^6/uL (4.70-6.10); Red Cell Dist. Width 17.2 % (11.5-14.5); White Blood Cell Count 14.6 10^3/uL (4.8-10.8)
[2025-02-03 04:20] LABS: APTT 121.7 Sec (23.4-35.0)
[2025-02-03 04:29] LABS: Blood Urea Nitrogen 32 mg/dl (9-20); Calcium 8.3 mg/dl (8.4-10.2); Carbon Dioxide 34 mmol/L (22-30); Chloride 103 mmol/L (98-107); Estimated Creatinine Clearance > 125 ml/min; Glucose 135 mg/dl (70-99); Magnesium 2.3 mg/dl (1.6-2.3); Potassium 3.7 mmol/L (3.5-5.1); Sodium 139 mmol/L (135-145); eGFR > 60.00
[2025-02-03] MEDS: LOPRESSOR 5 MG IV (05:47)
[2025-02-03] MEDS: ZOSYN 100 IV (05:47)
[2025-02-03 06:01] LABS: Glucose - Point of Care 127 mg/dl (70-99)
--- NOTE | 2025-02-03 07:42 | W.PN.HOSP.TC ---
Today's Communication/Plan
-
- monitor weights daily, spot dosing of IV Lasix per Cardiology as cannot take pills
-NGT; TPN
-s/p IV Zosyn course
-continue IV amiodarone
IV Heparin gtt
Assessment / Plan
Assessment / Plan
pt is a 59 year old male with hx dilated cardiomyopathy, EF 5-10%, afib with known LV thrombus on AC non-compliant, left lower extremity arterial occlusion due to thromboembolism 07/06 and acute limb ischemia RLE s/p thromboembolectomy 11/06
presents to the ER with abdominal pain and shortness of breath. CT A/P showed thrombosis of the SMA s/p ex lap with thromboembolectomy of SMA and placement of an AbThera Vac 01/27/25.
CT A/P
IMPRESSION:
Thrombosis of superior mesenteric artery branches, new since prior examination.
No bowel thickening or pneumatosis to suggest bowel ischemia.
No acute inflammatory changes within the abdomen or pelvis.
Mild diverticulosis without acute diverticulitis.
Stable fatty infiltration of liver. Stable low-attenuation right adrenal mass 1.3 cm, most consistent with benign adenoma.
Hazy attenuation in the dependent lung bases. Groundglass attenuation. Small bilateral pleural effusions. Possible mild pulmonary edema and/or atelectasis.
LUIS ENRIQUE 01/04/25
CONCLUSIONS
Left ventricle is mildly dilated. Severely reduced left ventricular systolic
function. Global hypokinesis. Normal left ventricular wall thickness. Left
ventricular ejection fraction is 10-15%.
Normal right ventricular size and function.
Moderately dilated left atrium.
Mildly dilated right atrium.
Left atrial appendage is mildly dilated. Definite massive occlusive thrombus in
the left atrial appendage. Peak velocities within the left atrial appendage are
30cm/sec.
Mild mitral regurgitation.
Moderate to severe tricuspid regurgitation.
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
Hypoxic Resp Failure
-appreciate vascular, CRS, Sales Solutions Representative consults
-s/p OR 01/27/25; thromboembolectomy of SMA, placement ABThera Vac
-s/p OR 01/28: Procedure Performed: Exploratory laparotomy, mesenteric angiography, partial omentectomy, tap block, abdominal closure
-IV heparin gtt
-s/p IV Zosyn - completed 7 day course
-IV Levophed now off
-patient pulled NGT out overnight 01/31-02/01 - replaced 02/01 as patient had nausea/likely ileus; did not pass clamping trial on 02/02
-F/U further CRS recs
Hypoxic Respiratory Failure status post intubation
-extubated on 01/30
hypokalemia- repleted
permanent AFIB with RVR - rate above 120s-
-IV amiodarone gtt
-IV Heparin gtt
-resume Metoprolol when able to take PO
-resume Eliquis when confirm no need for further procedures
acute on chronic HFrEF (EF 5-10%)
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
-*hold Lasix for today - monitor weights daily, spot dosing per Cardiology as cannot take pills
-appreciate Cardiology
-resume Metop when able to take PO
hyperthyroid--new diagnosis last admission?--on methimazole but would hold for now
-repeat TSH this AM WNL
PAD
active smoker--educated on importance of cessation
DVT proph--IV heparin drip
Code status - Full Code
51 minutes spent on patient care
Anticipated Discharge: > 48 hours
Subjective/Interval History
-
Date of Service: February 03, 2025
no chest pain or shortness of breath
Objective Data
-
Labs:
Laboratory Results
02/03/25 02/03/25
03:49 11:15
WBC 14.6 H
Hgb 14.7
Hct 45.6
Plt Count 215
APTT 121.7 H Pending
Sodium 139
Potassium 3.7
Chloride 103
Carbon Dioxide 34 H
BUN 32 H
Creatinine 0.8
Glucose 135 H
Calcium 8.3 L
Vital Signs:
Vital Signs
Temp Pulse Resp BP Pulse Ox
98.3 F 112 24 111/85 94
02/03/25 07:00 02/03/25 05:47 02/03/25 05:00 02/03/25 05:47 02/03/25 05:00
I&O
02/02/25 02/03/25 02/04/25
06:59 06:59 06:59
Intake Total 996 / 996 1207.7 / 1207.7
Output Total 1050 / 1050 2875 / 2875
Balance -54 / -54 -1667.3 / -1667.3
Review of Systems
-
History Source: Patient
All other systems: Reviewed and negative
Physical Exam
-
General: Well Developed and Well Nourished
HEENT: Normocephalic, Atraumatic and Other (NGT in place)
Respiratory: Clear to Auscultation; Negative Wheezes, Rales, Rhonchi or Crackles
Cardiac: Irregular Rhythm and Tachycardic
GI: Soft and Other (abdomen gauze with mild oozing)
Genito-urinary: [place]
Musculoskeletal: No Clubbing and No Cyanosis; Negative No Edema (2+ LE edema bilaterally)
Skin: Warm
Neuro: Awake and AO x 3
Psych: Calm
Data Reviewed
-
Diagnostic Radiology: Report Reviewed by me
Labs: Labs Reviewed by me
[2025-02-03] MEDS: PROTONIX IV 40 MG IV (07:45)
[2025-02-03] MEDS: THIAMINE INJECTION 100 MG IV (07:45)
[2025-02-03] MEDS: NSS (PRESERVATIVE FREE) 10 ML IV (07:45)
--- NOTE | 2025-02-03 08:42 | PTCARENOTE ---
pt aaox3. states min pain. tpn amio heparin running as ordered. midline abd dressing c/d/i. ngt placement checked and flushed. draining green bile. pt inc of soft bn stool.
[2025-02-03] MEDS: CORDARONE 518 MG IV (10:16)
--- NOTE | 2025-02-03 11:18 | W.PN.CARDCBS ---
Today's Communication / Plan
-
Ventricular rates still remain elevated. Will increase Lopressor to 7.5 mg IV every 6. Continue IV amiodarone. Continue IV heparin
Now getting TPN. Hopefully can resume oral medications soon.
Eventually restart Eliquis.
Impression / Plan
-
Primary Distributor Cleaner: Dr. Pickett
Primary EP: Dr Solorio
PCP: Dr Peñaloza
Patient with history of cardioembolic occlusion of left common femoral artery 06/2023, right iliac artery occlusion status post thromboembolectomy 10/29/2024. During that time was also noted to be in persistent rapid A-fib initially discovered
07/2023 with history of noncompliance with medications. Also with known low EF suspected tachycardia mediated status post cath 05/2024 with nonobstructive CAD.
He presented back to the ED 11/2024 due to generalized malaise and was noted to have a seroma of his right groin s/p I/D and wound vac. He was also found to be in decompensated heart failure with reduced ejection fraction and have atrial
fibrillation with rapid ventricular rates. Plan for LUIS ENRIQUE cardioversion but LUIS ENRIQUE 01/04/2025 showed massive occlusive thrombus in left atrial appendage. Most recently, presented on 01/27/2025 with acute onset abdominal pain found to have acute
mesenteric ischemia with SMA occlusion, went to OR for exploratory laparotomy and SMA thrombectomy. Postop shock with metabolic/lactic acidosis, on Levophed and intubated. Cardiology consulted for management of atrial fibrillation and heart failure
Assessment:
Acute mesenteric ischemia with SMA occlusion, status post exploratory lap and SMA thrombectomy 12/30/2024
Acute hypoxemic respiratory failure
Shock with metabolic/lactic acidosis
Right groin seroma
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
Persistent atrial fibrillation, first discovered July 2023
elevated troponin
Chronic OAC with eliquis
Left atrial appendage thrombus by LUIS ENRIQUE 12/2024
Chronic HFrEF
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
NSVT
Hyperthyroidism
Noncompliance
Depression
History of ETOH and tobacco abuse
Obesity
Ventilator dependent respiratory failure
ECHO 04/04/2024: EF 10 to 15%, severe global hypokinesis, mild MR, trace TR, PAP 30 to 33 mmHg
Cardiac catheterization 05/22/2024: Nonobstructive coronary disease with normal to mildly elevated right and left-sided filling pressures with normal cardiac output
Echocardiogram 10/30/2024: Severely dilated left ventricle, severely reduced LV systolic function, global hypokinesis with ejection fraction of 5-10%, moderate to severe eccentric TR with PA pressure of 30-35 mmHg, small pericardial effusion.
LUIS ENRIQUE 01/04/2025: LVEF 10 to 15%, definite massive occlusive thrombus in left atrial appendage, mild MR, moderate to severe TR
Plan:
Now getting TPN
Regarding cardioembolic SMA occlusion/ischemic bowel status post SMA embolectomy with second look laparotomy, abdomen is now closed, no evidence of necrotic bowel, as he recovers, will gradually reintroduce GDMT for severe LV dysfunction.
Continue IV amiodarone and IV Lopressor for atrial fibrillation with rapid rates. Eventually restart Toprol when blood pressure stable. Will increase IV Lopressor to 7.5 mg Q6.
His weight is down and creatinine remained stable. Hold Lasix for today as he has diuresed well. Likely resume oral Lasix over next 24 hours his creatinine remains stable.
Regarding 3 cardioembolic events over the last 9 months, this is related to noncompliance and presumably he will now be in a controlled environment for the foreseeable future where anticoagulants can be consistently administered. In the setting of
a massive left atrial appendage thrombus he is not a candidate for Watchman or LA appendage clip for the foreseeable future. Continue IV heparin. Original plan was to attempt a PVI to restore sinus rhythm. Would consider a repeat LUIS ENRIQUE once he
recovers from this event to reevaluate his left atrial appendage. Continue IV heparin for now. Eventually restart Eliquis.
His severe LV dysfunction is likely tachycardia mediated and related to noncompliance. As above, since he will presumably require a skilled facility, medications will hopefully be reliably administered and might permit recovery of his ejection
fraction.
His cardiomyopathy was nonischemic by cardiac catheterization in 2023, so elevated troponin is non-OR myocardial injury.
he finished Zosyn and respiratory and postoperative care.
I again discussed with him at length the importance of compliance with his medication.
cc time 33 min
Progress Note - Distributor Cleaner
Subjective
Date of Service: February 03, 2025
Awake and denies complaints. Still has NG tube in place. No chest pains
Objective
Labs:
02/03/25 03:49
02/03/25 03:49
Labs
Hgb 14.7 g/dL (13.0-18.0) 02/03/25 03:49
Hct 45.6 % (39.0-52.0) 02/03/25 03:49
Plt Count 215 10^3/uL (130-400) 02/03/25 03:49
PT 18.0 Sec (11.4-14.6) H 01/28/25 06:36
INR 1.46 01/28/25 06:36
APTT 121.7 Sec (23.4-35.0) H 02/03/25 03:49
Sodium 139 mmol/L (135-145) 02/03/25 03:49
Potassium 3.7 mmol/L (3.5-5.1) 02/03/25 03:49
BUN 32 mg/dl (9-20) H 02/03/25 03:49
Creatinine 0.8 mg/dL (0.7-1.3) 02/03/25 03:49
Glucose 135 mg/dl (70-99) H 02/03/25 03:49
Vital Signs and I&O:
Vital Signs
Temp Pulse Resp BP Pulse Ox
98.3 F 104 17 137/105 95
02/03/25 07:00 02/03/25 10:00 02/03/25 10:00 02/03/25 10:00 02/03/25 10:00
Vital Signs
Temp Pulse Resp BP Pulse Ox
98.3 F 104 17 137/105 95
02/03/25 07:00 02/03/25 10:00 02/03/25 10:00 02/03/25 10:00 02/03/25 10:00
Intake & Output
02/01/25 02/02/25 02/03/25 02/04/25
06:59 06:59 06:59 06:59
Intake Total 1086.4 / 1086.4 996 / 996 1207.7 / 1296.4 594.8 / 594.8
Output Total 3030 / 3030 1050 / 1050 2875 / 2875 400 / 400
Balance -1943.6 / -1943.6 -54 / -54 -1667.3 / -1578.6 194.8 / 194.8
Physical Exam
Physical Exam
GEN: No distress, awake,
HEENT: supple, anicteric, mmm
LUNGS: CTA, no wheezes/rales
CV: irreg, S1/S2, 1/6 syst LSB, no gallop
ABD: soft, BS+, NT/ND
EXT: No edema
NEURO: Gross non-focal
SKIN: No rash
[2025-02-03 11:25] LABS: APTT 112.7 Sec (23.4-35.0)
[2025-02-03 12:02] LABS: Glucose - Point of Care 141 mg/dl (70-99)
[2025-02-03] MEDS: LOPRESSOR 7.5 MG IV ×2 (12:34→18:09)
--- NOTE | 2025-02-03 14:17 | W.PN.GS2 ---
Addendum entered and electronically signed by Alli Arevalo MD 02/03/25 15:08:
I saw and examined the patient.
The Pattern Developer's note was reviewed and I agree with the note.
Comment: Slight improvement in ttp and distention on exam. Going slowly. Maintain NGT TPN for today
Original Note:
Today's Communication / Plan
-
Continue NGT and TPN
Assessment / Plan
-
59-year-old male with hx tobacco abuse, dilated cardiomyopathy, EF 5-10%, afib with known LV thrombus on AC non-compliant, left lower extremity arterial occlusion due to thromboembolism 07/06 and acute limb ischemia RLE s/p thromboembolectomy 11/06
presenting with SMA thrombosis.
POD #7 Exploratory laparotomy, thromboembolectomy of superior mesenteric artery, and placement of AbThera VAC, status post OR with colorectal surgery with abdominal closure
NGT replaced on 02/01 for vomiting, bilious outputs still noted. Still passing some flatus
Tachycardia, BP stable
Leukocytosis present, h/h stable
--Continue NPO with ngt to suction
--Continue TPN discussed recs with pharmacist and van owner operator
--H/H remains stable on IV heparin, hold on oral AC until good bowel recovery
--Incisional wound care
--analgesics/antiemetics prn
Subjective Data
-
Date of Service: February 03, 2025
Patient seen and examined at bedside with Dr Arevalo. Denies n/v. Passing a little flatus. Minimal discomfort.
Objective Data
-
Intake and Output
02/02/25 02/03/25 02/04/25
06:59 06:59 06:59
Intake Total 996 / 996 1207.7 / 1296.4 954.2 / 954.2
Output Total 1050 / 1050 2875 / 2875 400 / 400
Balance -54 / -54 -1667.3 / -1578.6 554.2 / 554.2
Intake:
Oral fluids 200 / 200 400 / 400
IV fluids (Total) 996 / 996 897.7 / 942.4 267.2 / 267.2
Amiodarone 352 / 352 183.7 / 200.4 100.2 / 100.2
Heparin 644 / 644 318 / 346 167 / 167
tpn 396 / 396
TPN/PPN 247 / 247
Amount instilled into GI Tube ( 110 / 110 40 / 40
Total)
[place] Sump 110 / 110 40 / 40
Output:
Gastrointestinal tube output ( 1999
Total)
[place] Sump 1999
Urine, Voided 1050 / 1050 875 / 875 400 / 400
Other:
How many times incontinent 1
MODERATE amount urine
How many times incontinent 1
SATURATED amount urine
Vital Signs
Temp Pulse Resp BP Pulse Ox
97.6 F 104 17 137/105 95
02/03/25 11:00 02/03/25 10:00 02/03/25 10:00 02/03/25 10:00 02/03/25 10:00
Lab Results
02/03/25 03:49
02/03/25 03:49
Calcium 8.3 mg/dl (8.4-10.2) L 02/03/25 03:49
Phosphorus 3.8 mg/dl (2.5-4.5) 02/02/25 04:06
Magnesium 2.3 mg/dl (1.6-2.3) 02/03/25 03:49
Total Bilirubin 4.1 mg/dl (0.2-1.3) H 02/01/25 05:40
Direct Bilirubin 3.0 mg/dl (0.0-0.4) H 01/29/25 03:22
AST 25 U/L (17-59) 02/01/25 05:40
ALT 13 U/L (0-50) 02/01/25 05:40
Alkaline Phosphatase 82 U/L (38-126) 02/01/25 05:40
Total Protein 5.5 g/dl (6.3-8.2) L 02/01/25 05:40
Albumin 2.9 g/dl (3.5-5.0) L 02/01/25 05:40
Physical Exam
-
NAD
ABD soft, mild distention, incisional tenderness as expected. NGT with bilious outputs
Incision with intact dressing
[2025-02-03 15:06] LABS: Hemoglobin 14.3 g/dL (13.0-18.0)
--- NOTE | 2025-02-03 16:20 | PTCARENOTE ---
pt having liquid burgundy stool. dr catherine and surgical SPECIALTY SALES CONSULTANT made aware. h/h done.
[2025-02-03 17:47] LABS: APTT 90.3 Sec (23.4-35.0)
[2025-02-03 18:32] LABS: Glucose - Point of Care 119 mg/dl (70-99)
--- NOTE | 2025-02-03 19:30 | PTCARENOTE ---
Patient received lying in bed, awake, alert and oriented. He is without apparent signs of distress or discomfort. He currently denies pain, he denies CP or SOB. He is asking for bedpan. Patient defecated a small to moderate amount of liquid burgundy
stool. Complete bath and skin cares given, perineal care, CHG cloth bath, face washed, brushed teeth, lip care. Patient is taking po ice chips and sips, tolerating well. NGT via right nare to LCS with clear bile green drainage. BBS with upper lobes
clear anteriorly, bilateral bases diminished. S1S2 irregular with positive murmur. Abdomen obese and soft with positive bowel sounds x 4 quadrants, slightly hypoactive RUQ. Voiding dark tea nicole urine per urinal. Generalized anasarca mild. Good
mobility. Heparin gtt verified, to left AC. Right AC PICC line WDL with Amiodarone and TPN infusing per order. Midline Abdominal incision with dressing CDI except for small amount of old drainage lower dressing. Afib on CM with occasional PVCs. Bed
low and in locked position. Call marshall within reach.
[2025-02-03] MEDS: Parenteral Nutrition, Central 1520 IV (20:58)
[2025-02-04] VITALS (15 sets, daily range): BP systolic 91–137; BP diastolic 57–93; PULSE 100–118; O2SAT 93–95; BMI 35.0
[2025-02-04] MEDS: LOPRESSOR 7.5 MG IV ×5 (00:04→23:12)
[2025-02-04 00:05] LABS: Hemoglobin 14.1 g/dL (13.0-18.0)
[2025-02-04] MEDS: DILAUDID 0.5 MG IV (00:05)
[2025-02-04 00:18] LABS: APTT 78.8 Sec (23.4-35.0)
[2025-02-04] MEDS: NOVOLOG FLEXPEN-MODERATE RESISTANCE SC ×4 (02:24→17:58)
[2025-02-04] MEDS: HEPARIN 25000 UNITS/250 ML IV ×2 (02:25→23:13)
[2025-02-04 05:37] LABS: Hematocrit 43.2 % (39.0-52.0); Hemoglobin 13.8 g/dL (13.0-18.0); Mean Corp Hgb Conc. 31.9 g/dL (33.0-37.0); Mean Corpuscular Hgb 31.7 pg (27.0-31.0); Mean Corpuscular Volume 99.1 fL (80.0-94.0); Mean Platelet Volume 10.9 fL (7.4-10.4); Platelet Count 190 10^3/uL (130-400); Red Blood Cell Count 4.36 10^6/uL (4.70-6.10); White Blood Cell Count 8.8 10^3/uL (4.8-10.8)
[2025-02-04 05:47] LABS: APTT 74.9 Sec (23.4-35.0)
[2025-02-04 06:05] LABS: ALT (SGPT) < 10 U/L (0-50); AST (SGOT) 15 U/L (17-59); Albumin 2.3 g/dl (3.5-5.0); Alkaline Phosphatase 76 U/L (38-126); Blood Urea Nitrogen 25 mg/dl (9-20); Calcium 8.4 mg/dl (8.4-10.2); Carbon Dioxide 34 mmol/L (22-30); Chloride 104 mmol/L (98-107); Estimated Creatinine Clearance > 125 ml/min; Glucose 144 mg/dl (70-99); Magnesium 2.3 mg/dl (1.6-2.3); Phosphorus 2.5 mg/dl (2.5-4.5); Potassium 3.4 mmol/L (3.5-5.1); Sodium 140 mmol/L (135-145); Total Bilirubin 3.6 mg/dl (0.2-1.3); Total Protein 4.6 g/dl (6.3-8.2); Triglycerides 160 mg/dl (10-149); eGFR > 60.00
--- NOTE | 2025-02-04 06:56 | PTCARENOTE ---
Report given verbally to RN assuming careVirgen. Questions answered.
[2025-02-04] MEDS: THIAMINE INJECTION 100 MG IV (07:32)
[2025-02-04] MEDS: PROTONIX IV 40 MG IV (07:32)
[2025-02-04] MEDS: NSS (PRESERVATIVE FREE) 10 ML IV (07:32)
--- NOTE | 2025-02-04 07:47 | W.PN.HOSP.TC ---
Today's Communication/Plan
-
IV Heparin gtt
IV Amiodarone gtt
spot dosing IV Lasix per Cardiology
TPN
NGT - F/U further surgery recs
Assessment / Plan
Assessment / Plan
pt is a 59 year old male with hx dilated cardiomyopathy, EF 5-10%, afib with known LV thrombus on AC non-compliant, left lower extremity arterial occlusion due to thromboembolism 07/06 and acute limb ischemia RLE s/p thromboembolectomy 11/06
presents to the ER with abdominal pain and shortness of breath. CT A/P showed thrombosis of the SMA s/p ex lap with thromboembolectomy of SMA and placement of an AbThera Vac 01/27/25; s/p ex lap with partial omentectomy and abdominal closure on
01/28. Post-op course with ileus.
CT A/P
IMPRESSION:
Thrombosis of superior mesenteric artery branches, new since prior examination.
No bowel thickening or pneumatosis to suggest bowel ischemia.
No acute inflammatory changes within the abdomen or pelvis.
Mild diverticulosis without acute diverticulitis.
Stable fatty infiltration of liver. Stable low-attenuation right adrenal mass 1.3 cm, most consistent with benign adenoma.
Hazy attenuation in the dependent lung bases. Groundglass attenuation. Small bilateral pleural effusions. Possible mild pulmonary edema and/or atelectasis.
LUIS ENRIQUE 01/04/25
CONCLUSIONS
Left ventricle is mildly dilated. Severely reduced left ventricular systolic
function. Global hypokinesis. Normal left ventricular wall thickness. Left
ventricular ejection fraction is 10-15%.
Normal right ventricular size and function.
Moderately dilated left atrium.
Mildly dilated right atrium.
Left atrial appendage is mildly dilated. Definite massive occlusive thrombus in
the left atrial appendage. Peak velocities within the left atrial appendage are
30cm/sec.
Mild mitral regurgitation.
Moderate to severe tricuspid regurgitation.
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
Post-op Ileus
-appreciate vascular, CRS, Inventory Control/Shipping Receiving consults
-s/p OR 01/27/25; thromboembolectomy of SMA, placement ABThera Vac
-s/p OR 01/28: Procedure Performed: Exploratory laparotomy, mesenteric angiography, partial omentectomy, tap block, abdominal closure
-IV heparin gtt
-s/p IV Zosyn - completed 7 day course
-IV Levophed now off
-patient pulled NGT out overnight 01/31-02/01 - replaced 02/01 as patient had nausea/likely ileus; did not pass clamping trial on 02/02
-continue NPO, NGT, TPN initiated on 02/02
-02/03 patient had reported burgundy stool, likely old blood; Hg has been stable
-F/U further surgery recommendations
-PT ordered; encouraging OOB to chair
Hypoxic Respiratory Failure status post intubation
-extubated on 01/30
hypokalemia-
-give IV today
permanent AFIB with RVR
-IV amiodarone gtt
-IV Heparin gtt
-resume Metoprolol when able to take PO
-resume Eliquis when confirm no need for further procedures
-appreciate Cardiology
acute on chronic HFrEF (EF 5-10%)
-hold PUBLIC HEALTH INSPECTOR Entresto and Metop XL until patient can take PO meds
-s/p IV diuresis; Lasix on hold 02/03 - spot dose Lasix per Cardiology to keep euvolemic; resume pills when can take PO
-appreciate Cardiology
hyperthyroid--new diagnosis last admission?--on methimazole but would hold for now
-repeat TSH here WNL
PAD
active smoker--educated on importance of cessation
DVT proph--IV heparin drip
Code status - Full Code
51 minutes spent on patient care
Anticipated Discharge: > 48 hours
Subjective/Interval History
-
Date of Service: February 04, 2025
he wants to get up out of bed today
no further burgundy stools
Objective Data
-
Labs:
Laboratory Results
02/03/25 02/04/25 02/04/25
23:56 05:12 05:12
WBC 8.8
Hgb 14.1 13.8 Cancelled
Hct 43.2
Plt Count 190
APTT 78.8 H 74.9 H
Sodium 140
Potassium 3.4 L
Chloride 104
Carbon Dioxide 34 H
BUN 25 H
Creatinine 0.8
Glucose 144 H
Calcium 8.4
Total Bilirubin 3.6 H
AST 15 L
ALT < 10
Alkaline Phosphatase 76
02/04/25
06:42
WBC
Hgb Cancelled
Hct
Plt Count
APTT
Sodium
Potassium
Chloride
Carbon Dioxide
BUN
Creatinine
Glucose
Calcium
Total Bilirubin
AST
ALT
Alkaline Phosphatase
Vital Signs:
Vital Signs
Temp Pulse Resp BP Pulse Ox
97.6 F 88 25 91/63 97
02/04/25 07:26 02/04/25 06:00 02/04/25 06:00 02/04/25 06:00 02/04/25 07:31
I&O
02/03/25 02/04/25 02/05/25
06:59 06:59 06:59
Intake Total 1207.7 / 1296.4 3376.8 / 3483.5 106.7 / 106.7
Output Total 2875 / 2875 1925 / 1925 0 / 0
Balance -1667.3 / -1578.6 1451.8 / 1558.5 106.7 / 106.7
Review of Systems
-
History Source: Patient
All other systems: Reviewed and negative
Physical Exam
-
General: Well Developed and Well Nourished
HEENT: Normocephalic, Atraumatic and Other (NGT in place)
Respiratory: Clear to Auscultation; Negative Wheezes, Rales, Rhonchi or Crackles
Cardiac: Irregular Rhythm and Tachycardic
GI: Soft and Other (abdomen gauze with mild oozing)
Genito-urinary: [place]
Musculoskeletal: No Clubbing, No Cyanosis and No Edema (2+ LE edema bilaterally)
Skin: Warm
Neuro: Awake and AO x 3
Psych: Calm
Data Reviewed
-
Diagnostic Radiology: Report Reviewed by me
Labs: Labs Reviewed by me
--- NOTE | 2025-02-04 08:42 | PN.DE.MGMTRT ---
Insulin Management
- -
02/04/2025: Diabetes Management Follow up
59 year old male with PMH: A-fib, hyperthyroidism, chronic HFrEF, LLE arterial occlusion due to thromboembolism (06/2023), h/o acute limb ischemia of RLE with thromboembolic occlusion of the right iliac system s/p thromboembolectomy of the right
iliac system + thromboembolectomy of the right SFA, popliteal artery.
Patient presented to the ED with abdominal pain and SOB. CTA showed thrombosis of the SMA s/p ex lap with thromboembolectomy of SMA and placement of an AbThera Vac 01/27/25. Postoperatively he was started on the glycemic protocol due to
hyperglycemia. Was taking Jardiance 10mg daily CLOTH WINDER. A1C 6.3%, Cr 1.1, eGFR >60.
Pt awake, alert, oriented, sitting up in bed, offers no complaints, able to discuss diabetes care plan. Family at bedside, all questions answered.
POD# 8 exploratory laparotomy, mesenteric angiography, partial omentectomy, tap block, abdominal closure
Remains NPO. Currently on TPN. Glucose stable and in range, 119 to 141, with moderate corrective insulin Q6 hours.
Will make no changes. Will cont to follow. Discussed with Nurse.
Diabetes History
- -
Type of Diabetes: 2
Pre-Admission Diabetes Regimen
02/04/25
05:12
Creatinine 0.8
Lab Results
Hemoglobin A1c 6.3 % (4.0-5.6) H 01/27/25 14:42
Insulin Pump Settings
IP Diabetes Regimen
02/03/25 02/03/25 02/04/25
11:51 18:20 05:12
Glucose 144 H
POC Glucose 141 H 119 H
Patient Education
[2025-02-04] MEDS: KCL 270 MEQ IV (09:01)
--- NOTE | 2025-02-04 09:20 | PTCARENOTE ---
Patient downgraded to tele level. Alert and oriented. VSS. Afib on tele. Weaned to RA. NGT remains to suction. NPO. No n/v. KCl repletion infusing.
--- NOTE | 2025-02-04 09:43 | PTCARENOTE ---
Addendum entered by Virgen Wills RN 02/04/25 09:59:
Patient sat at side of bed for about 10 minutes.
Original Note:
PT/OT at bedside.
--- NOTE | 2025-02-04 09:45 | W.PN.CARDCBS ---
Today's Communication / Plan
-
Stable cardiology status
Continue rate control of A-fib with amiodarone and IV Lopressor
Continue IV heparin until able to change to Eliquis
Changed to Lasix p.o. 40 mg p.o. twice daily which is outpatient dose
Impression / Plan
-
Primary Mechanical Designer: Dr. Pickett
Primary EP: Dr Solorio
PCP: Dr Peñaloza
Patient with history of cardioembolic occlusion of left common femoral artery 06/2023, right iliac artery occlusion status post thromboembolectomy 10/29/2024. During that time was also noted to be in persistent rapid A-fib initially discovered
07/2023 with history of noncompliance with medications. Also with known low EF suspected tachycardia mediated status post cath 05/2024 with nonobstructive CAD.
He presented back to the ED 11/2024 due to generalized malaise and was noted to have a seroma of his right groin s/p I/D and wound vac. He was also found to be in decompensated heart failure with reduced ejection fraction and have atrial
fibrillation with rapid ventricular rates. Plan for LUIS ENRIQUE cardioversion but LUIS ENRIQUE 01/04/2025 showed massive occlusive thrombus in left atrial appendage. Most recently, presented on 01/27/2025 with acute onset abdominal pain found to have acute
mesenteric ischemia with SMA occlusion, went to OR for exploratory laparotomy and SMA thrombectomy. Postop shock with metabolic/lactic acidosis, on Levophed and intubated. Cardiology consulted for management of atrial fibrillation and heart failure
Assessment:
Acute mesenteric ischemia with SMA occlusion, status post exploratory lap and SMA thrombectomy 12/30/2024
Acute hypoxemic respiratory failure
Shock with metabolic/lactic acidosis
Right groin seroma
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
Persistent atrial fibrillation, first discovered July 2023
Non-NM myocardial injury
Chronic OAC with eliquis
Left atrial appendage thrombus by LUIS ENRIQUE 12/2024
Chronic HFrEF
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
NSVT
Hyperthyroidism
Noncompliance
Depression
History of ETOH and tobacco abuse
Obesity
Ventilator dependent respiratory failure
ECHO 04/04/2024: EF 10 to 15%, severe global hypokinesis, mild MR, trace TR, PAP 30 to 33 mmHg
Cardiac catheterization 05/22/2024: Nonobstructive coronary disease with normal to mildly elevated right and left-sided filling pressures with normal cardiac output
Echocardiogram 10/30/2024: Severely dilated left ventricle, severely reduced LV systolic function, global hypokinesis with ejection fraction of 5-10%, moderate to severe eccentric TR with PA pressure of 30-35 mmHg, small pericardial effusion.
LUIS ENRIQUE 01/04/2025: LVEF 10 to 15%, definite massive occlusive thrombus in left atrial appendage, mild MR, moderate to severe TR
Plan:
Heart rate control reasonable on IV Lopressor and IV amiodarone
Consider change to oral Toprol and amiodarone when able to take p.o.'s reliably
Volume status appears reasonable.
Will resume oral Lasix 40 mg p.o. twice daily which is outpatient dose
He has had 3 cardiac embolic events in the past 9 months felt to be due to noncompliance. Continue IV heparin and eventually restart Eliquis.
His severe LV dysfunction is likely tachycardia mediated and related to noncompliance. Since he will presumably require a skilled facility, medications will hopefully be reliably administered and might permit recovery of his ejection fraction.
Progress Note - Mechanical Designer
Subjective
Date of Service: February 04, 2025
He has no complaints
Objective
Labs:
02/04/25 06:42
02/04/25 05:12
Labs
Hgb Cancelled 02/04/25 06:42
Hct 43.2 % (39.0-52.0) 02/04/25 05:12
Plt Count 190 10^3/uL (130-400) 02/04/25 05:12
PT 18.0 Sec (11.4-14.6) H 01/28/25 06:36
INR 1.46 01/28/25 06:36
APTT 74.9 Sec (23.4-35.0) H 02/04/25 05:12
Sodium 140 mmol/L (135-145) 02/04/25 05:12
Potassium 3.4 mmol/L (3.5-5.1) L 02/04/25 05:12
BUN 25 mg/dl (9-20) H 02/04/25 05:12
Creatinine 0.8 mg/dL (0.7-1.3) 02/04/25 05:12
Glucose 144 mg/dl (70-99) H 02/04/25 05:12
Vital Signs and I&O:
Vital Signs
Temp Pulse Resp BP Pulse Ox
97.6 F 94 22 113/70 95
02/04/25 07:26 02/04/25 08:00 02/04/25 08:00 02/04/25 08:00 02/04/25 08:10
Vital Signs
Temp Pulse Resp BP Pulse Ox
97.6 F 94 22 113/70 95
02/04/25 07:26 02/04/25 08:00 02/04/25 08:00 02/04/25 08:00 02/04/25 08:10
Intake & Output
02/02/25 02/03/25 02/04/25 02/05/25
06:59 06:59 06:59 06:59
Intake Total 996 / 996 1207.7 / 1296.4 3376.8 / 3483.5 477.6 / 477.6
Output Total 1050 / 1050 2875 / 2875 1925 / 1925 0 / 0
Balance -54 / -54 -1667.3 / -1578.6 1451.8 / 1558.5 477.6 / 477.6
Physical Exam
Physical Exam
General: Well developed, well nourished in NAD.
Neck: Supple, no JVD, HJR, carotids +2 B/L, no bruits bilaterally.
Heart: Non displaced PMI, irregular, no murmurs, No S3, S4, no rubs.
Lungs: Clear to auscultation bilaterally, no wheeze, rhonchi, rubs bilaterally,
normal expiratory phase.
Extremities: No clubbing, cyanosis or edema bilaterally.
Neuro: Grossly nonfocal, awake, alert and oriented x3.
--- NOTE | 2025-02-04 11:41 | PTCARENOTE ---
Patient transferred to with belongings. Amio & TPN infusing through RDL PICC. Heparin and KCl infusing through peripheral INT. VSS.
[2025-02-04 12:33] LABS: Glucose - Point of Care 135 mg/dl (70-99)
--- NOTE | 2025-02-04 12:59 | CM ---
CM following re: discharge planning.
Reviewed pt's chart, met with pt and pt's sister at bedside.
PT and OT evaluation noted - SNF level of care recommended. Pt is aware, expressed his agreement and he stated he was at [facility] in the past, liked there and pt is requested [facility]. A referral to [facility] made.
D/C plan: [facility] when medically stable.
CM will follow with discharge plan updates as hospitalization progresses
--- NOTE | 2025-02-04 13:06 | W.PN.CRS1 ---
Today's Communication / Plan
-
tpn
continue ngt
abdominal xrays
Assessment/Plan
-
POD#6 exploratory laparotomy, mesenteric angiography, partial omentectomy, tap block, abdominal closure
01/31-extubated, NG tube removed by patient
Hgb 8.8, Hgb 13.8
Afebrile
-No plans for further surgery at this time
-Continue NGT
-Remain n.p.o. Continue with TPN.
-Daily wound dressing changes
-Out of bed, okay for ambulation for 30 minutes with NG tube clamped
-Abdominal xrays
Subjective Data
Procedure
01/27/2025- Ex lap, SMA embolectomy
Subjective Data
Date of Service: February 04, 2025
Patient states he feels distended still. He is passing flatus and had four bms since last night. His pain is controlled.
Objective Data
-
Vital Signs
Temp Pulse Resp BP Pulse Ox
98.1 F 73 18 114/93 96
02/04/25 11:30 02/04/25 11:30 02/04/25 11:30 02/04/25 11:30 02/04/25 11:30
Intake & Output
02/03/25 02/04/25 02/05/25
06:59 06:59 06:59
Intake Total 1207.7 / 1296.4 3376.8 / 3483.5 826.0 / 826.0
Output Total 2875 / 2875 1925 / 1925 875 / 875
Balance -1667.3 / -1578.6 1451.8 / 1558.5 -49.0 / -49.0
Intake:
Oral fluids 200 / 200 940 / 940 60 / 60
IV fluids (Total) 897.7 / 942.4 1052.8 / 1096.5 218.5 / 218.5
Amiodarone 183.7 / 200.4 400.8 / 417.5 83.5 / 83.5
Heparin 318 / 346 652 / 679 135 / 135
tpn 396 / 396
IV piggybacks 60 / 60 202.5 / 202.5
TPN/PPN 1284 / 1347 315 / 315
Amount instilled into GI Tube ( 110 / 110 40 / 40 30 / 30
Total)
Latimer Sump 110 / 110 40 / 40 30 / 30
Output:
Gastrointestinal tube output ( 1999 900 / 900 300 / 300
Total)
Latimer Sump 1999 900 / 900 300 / 300
Urine, Voided 875 / 875 1025 / 1025 575 / 575
Other:
How many times incontinent 1
MODERATE amount urine
Number of unmeasured liquid
stools
Rectum 1 1
Lab Results
02/04/25 06:42
02/04/25 05:12
Physical Exam
-
General: No Acute Distress and AOx3
Abdomen: Soft, Distended and Non Tender
Wound: Dressing in Place
[2025-02-04] MEDS: LASIX 40 MG TUBE (17:21)
[2025-02-04 17:39] LABS: Glucose - Point of Care 174 mg/dl (70-99)
[2025-02-04] MEDS: CORDARONE 518 MG IV (17:52)
[2025-02-04] MEDS: Parenteral Nutrition, Central 1520 IV (21:41)
--- NOTE | 2025-02-04 21:57 | PTCARENOTE ---
2044 pt pulled out his NGT while sleeping, contacted colorectal call center assistant and reported to leave out for now discontinue order placed. Pt cont for mod watery brown BM, denies nausea. Educated to inform staff immediately if pt is nausea otr any
abdominal pain.
--- NOTE | 2025-02-04 22:56 | PTCARENOTE ---
pt's heparin IV was found removed from LAC, IV team placed new IV and heparin drip resumed. IV was found to be out approx 15 min.
[2025-02-04 23:53] LABS: Glucose - Point of Care 145 mg/dl (70-99)
[2025-02-05] MEDS: NOVOLOG FLEXPEN-MODERATE RESISTANCE SC ×4 (00:27→19:39)
[2025-02-05 01:04] LABS: Hematocrit 41.2 % (39.0-52.0); Hemoglobin 13.4 g/dL (13.0-18.0); Mean Corp Hgb Conc. 32.5 g/dL (33.0-37.0); Mean Corpuscular Hgb 31.9 pg (27.0-31.0); Mean Corpuscular Volume 98.1 fL (80.0-94.0); Mean Platelet Volume 11.3 fL (7.4-10.4); Platelet Count 203 10^3/uL (130-400); Red Cell Dist. Width 17.1 % (11.5-14.5); White Blood Cell Count 8.4 10^3/uL (4.8-10.8)
[2025-02-05 01:09] LABS: Blood Urea Nitrogen 20 mg/dl (9-20); Calcium 8.4 mg/dl (8.4-10.2); Carbon Dioxide 30 mmol/L (22-30); Chloride 107 mmol/L (98-107); Estimated Creatinine Clearance > 125 ml/min; Glucose 146 mg/dl (70-99); Potassium 3.6 mmol/L (3.5-5.1); Sodium 141 mmol/L (135-145); eGFR > 60.00
--- NOTE | 2025-02-05 01:09 | PTCARENOTE ---
Pt calling out from room @ 2317, pt found to be confused of where he was and attempting to use call marshall to call the Governor. VS 128/74 HR 101 95RA temp 98.2 blood glucose 145. HP notified and assessed pt at bedside. At that time pt answered
questions correct but continued to be disoriented to situation and place. STAT labs and CT ordered.
[2025-02-05 01:11] LABS: COVID-19 Antigen Negative (Negative)
[2025-02-05 01:50] LABS: % Basophils 1.1 % (0-2); % Eosinophils 0.8 % (0-6); % Immature Granulocytes 1.8 % (0-0.5); % Lymphocytes 7.5 % (20.5-51.1); % Monocytes 8.5 % (1.7-9.3); % Neutrophils 80.3 % (42.2-75.2); Absolute Basophils 0.1 10^3/uL (0-0.2); Absolute Eosinophils 0.1 10^3/uL (0-0.7); Absolute Immature Granulocytes 0.2 10^3/uL (0-0.05); Absolute Lymphocytes 0.6 10^3/uL (1.2-3.4); Absolute Monocytes 0.7 10^3/uL (0.1-0.6); Absolute Neutrophils 6.7 10^3/uL (1.4-6.5); Nucleated Red Blood Cells % 0.4 % (-)
[2025-02-05 01:54] LABS: B.E. 3.4 mmol/L; HCO3 26.8 mmol/L (21-28); PCO2 36 mmHg (35-48); PO2 69 mmHg (83-108); pH 7.48 (7.35-7.45)
[2025-02-05 01:56] LABS: O2 Saturation % 94.8 % (94-98); O2 Therapy %Oxygen/Room Air RA
--- NOTE | 2025-02-05 02:11 | PTCARENOTE ---
CT shows SBO mid jejunum per radiology, HP notified but pt is not allowing NGT to be placed @ this time. Pt educted on the benefits and risks encouraged to notify staff with any onset of nausea or discomfort, call marshall within reach
--- NOTE | 2025-02-05 02:16 | W.PN.UPDATE ---
Update Note
Progress Note Update
Called at bedside to assess the patient as he is confused to the place and attempting to use the call marshall to call the Governor
before I entered the room.I heard the patient was talking to himself.
-Patient is alert, was able to answer that he in [facility], but has period of confused conversation. He Mary SOB, denies pain but abdomen is distended, tender to touch and moderately firm.
-Patient afebrile, 95% RA, bp 128/74 HR 101 95 RA blood glucose 145.
-CBC, BMP, lactic acid, abg and ua.
-Head CT and abdomen/PLVs CT ordered.
-Normal WBC, stable hgb level, lactic acid is 2.
-Head CT with no acute intracranial process.
-CT abdomen/PLVS shows
-Small bowel obstruction with multiple of fluid and air filled loops of small bowel within the mid abdomen and left upper quadrant measuring up to 4.7cm. Fluid dilated loops of predominantly jejunum.
-Mild stool present within the colon which is mostly decompressed. Small bowel loops appear to taper in the right lower quadrant. No free air. Mild free fluids in the pelvis.
-Small bilateral effusions and mild to moderate associated atelectasis in the bilateral lower lobes. Moderate cardiology.
-Gallbladder is partially contacted. No gall bladder wall thickening.
-No hydronephrosis or obstructing urinary calculi. Bladder is moderately distended containing a small drop of air anteriorly. This may relate to cystitis with no recent instrumentation.
-Post surgical changes in the right inguinal region again seen.
Patient pulled his NGT earlier of the shift and refusing to be replaced. Patient currently with no nausea or vomiting.
--- NOTE | 2025-02-05 03:35 | PTCARENOTE ---
Pt restless and cannot get comfortable in bed, assisted to chair with alarm. Pt denies nausea disoriented to time, callbell within reach
[2025-02-05 03:37] VITALS: BP 104/56
[2025-02-05 04:42] LABS: Hematocrit 42.9 % (39.0-52.0); Hemoglobin 13.8 g/dL (13.0-18.0); Mean Corp Hgb Conc. 32.2 g/dL (33.0-37.0); Mean Corpuscular Hgb 31.7 pg (27.0-31.0); Mean Corpuscular Volume 98.4 fL (80.0-94.0); Mean Platelet Volume 10.6 fL (7.4-10.4); Platelet Count 197 10^3/uL (130-400); Red Blood Cell Count 4.36 10^6/uL (4.70-6.10); White Blood Cell Count 8.7 10^3/uL (4.8-10.8)
[2025-02-05 05:07] LABS: Blood Urea Nitrogen 19 mg/dl (9-20); Calcium 8.4 mg/dl (8.4-10.2); Carbon Dioxide 29 mmol/L (22-30); Chloride 106 mmol/L (98-107); Estimated Creatinine Clearance > 125 ml/min; Glucose 150 mg/dl (70-99); Potassium 3.6 mmol/L (3.5-5.1); Sodium 142 mmol/L (135-145); eGFR > 60.00
[2025-02-05] MEDS: LOPRESSOR IV (05:12)
--- NOTE | 2025-02-05 06:11 | PTCARENOTE ---
Pt refusing all care at this time, blood glucose with lab work 150 refusing 1 unit insulin, refusing VS for Lopressor medication. Pt continues to have episodes of confusion, repeating he want to go home and to the hotel upstairs. When reoriented to
situation and place he feels there is nothing wrong at this time. Pt sitting up in chair alarmed.
--- NOTE | 2025-02-05 06:28 | PTCARENOTE ---
Bed scale broken unable to obtain weight at this time, patient not safe for transfer to standing scale, unsteady gait and uncooperative with staff
--- NOTE | 2025-02-05 06:30 | PTCARENOTE ---
HP provider notified of refusing care and confusion, reports mostly hospital delirium r/t to length of stay. Pt in bed with alarm call marshall within reach
[2025-02-05 07:23] LABS: Glucose - Point of Care 150 mg/dl (70-99)
[2025-02-05 08:25] VITALS: BP 110/56
--- NOTE | 2025-02-05 08:53 | PN.DE.MGMTRT ---
Insulin Management
- -
02/05/2025: Diabetes Management Follow up
59 year old male with PMH: A-fib, hyperthyroidism, chronic HFrEF, LLE arterial occlusion due to thromboembolism (06/2023), h/o acute limb ischemia of RLE with thromboembolic occlusion of the right iliac system s/p thromboembolectomy of the right
iliac system + thromboembolectomy of the right SFA, popliteal artery.
Patient presented to the ED with abdominal pain and SOB. CTA showed thrombosis of the SMA s/p ex lap with thromboembolectomy of SMA and placement of an AbThera Vac 01/27/25. Postoperatively he was started on the glycemic protocol due to
hyperglycemia. 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 A1C 6.3%, Cr 1.1, eGFR >60.
Pt is asleep at the time of my visit. He has been removing IV s 2 removed NGT, combative. Now has 1:1. Did not discuss diabetes plan of care.
POD# 7 exploratory laparotomy, mesenteric angiography, partial omentectomy, tap block, abdominal closure
Remains NPO. Glucose stable and in range, 135 to 174, with moderate corrective insulin Q6 hours.
Will make no changes. Will cont to follow. Discussed with Nurse.
Diabetes History
- -
Type of Diabetes: 2
Pre-Admission Diabetes Regimen
02/05/25 02/05/25
00:32 04:06
Creatinine 0.7 0.7
Lab Results
Hemoglobin A1c 6.3 % (4.0-5.6) H 01/27/25 14:42
Insulin Pump Settings
IP Diabetes Regimen
02/04/25 02/04/25 02/04/25
12:32 17:37 23:52
Glucose
POC Glucose 135 H 174 H 145 H
02/05/25 02/05/25 02/05/25
00:32 04:06 07:22
Glucose 146 H 150 H
POC Glucose 150 H
Meal type: Lunch
Patient Education
[2025-02-05] MEDS: HEPARIN 25000 UNITS/250 ML IV ×2 (09:23→20:31)
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
--- NOTE | 2025-02-05 09:51 | W.PN.HOSP.TC ---
Today's Communication/Plan
-
see bold
Assessment / Plan
Assessment / Plan
HPI: 59 year old male with hx dilated cardiomyopathy, EF 5-10%, afib with known LV thrombus on AC non-compliant, left lower extremity arterial occlusion due to thromboembolism 07/06 and acute limb ischemia RLE s/p thromboembolectomy 11/06 presents
to the ER with abdominal pain and shortness of breath. CT A/P showed thrombosis of the SMA s/p ex lap with thromboembolectomy of SMA and placement of an AbThera Vac 01/27/25; s/p ex lap with partial omentectomy and abdominal closure on 01/28.
Post-op course with ileus.
A/P:
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
Post-op Ileus
-appreciate vascular, CRS, Cube Machine Tender consults
-s/p OR 01/27/25; thromboembolectomy of SMA, placement ABThera Vac
-s/p OR 01/28: Procedure Performed: Exploratory laparotomy, mesenteric angiography, partial omentectomy, tap block, abdominal closure
-s/p IV Zosyn - completed 7 day course, s/p Levophed now off
-patient pulled NGT out overnight 01/31-02/01 - replaced 02/01 as patient had nausea/likely ileus; did not pass clamping trial on 02/02
-TPN initiated on 02/02
-02/03 patient had reported burgundy stool, likely old blood; Hg has been stable
-PT ordered; encouraging OOB to chair
-Continue IV heparin gtt, NPO, TPN as per colorectal surgery. Pulled out his NG tube 02/05 early AM
Hypoxic Respiratory Failure status post intubation
-extubated on 01/30
Hypokalemia
-replete as needed
Toxic metabolic encephalopathy
-Monitor
Permanent AFIB with RVR
Left atrial appendage thrombus
-appreciate Cardiology, continue IV amiodarone drip, IV heparin drip
-resume Metoprolol when able to take PO
-resume Eliquis when confirm no need for further procedures
Acute on chronic HFrEF (EF 5-10%)
-hold ROD BUSTER HELPER Entresto and Metop XL until patient can take PO meds
-s/p IV diuresis; Lasix on hold 02/03 - spot dose Lasix per Cardiology to keep euvolemic; resume pills when can take PO
-appreciate Cardiology
Hyperthyroid--new diagnosis last admission?--on methimazole but would hold for now
-repeat TSH here WNL
PAD
Active smoker--educated on importance of cessation
DVT proph--IV heparin drip
Code status - Full Code
Total time spent to see the patient on the floor, examine the patient, review data and lab results, discuss treatment plan with patient, nursing staff around 50 minutes.
Physical Exam
General: Obese, no acute distress
HEENT: Normocephalic, Atraumatic, EOMI, MMM
Respiratory: Clear to Auscultation bilaterally
Cardiac: Normal S1/S2, Regular Rate and Rhythm
GI: Soft, distended, incision dressed
Extremities: No Clubbing, Cyanosis, or Edema
Neuro: Nonfocal/Grossly Intact
Psych: Intermittently agitated, frustrated
Anticipated Discharge: > 48 hours
Subjective/Interval History
-
Date of Service: February 05, 2025
Overnight events noted. Patient was agitated, pulling out his NG tube, and refusing IV heparin drip. He reports that he is hungry, and wants to drink. Denies chest pain, shortness of breath, or palpitations. No abdominal pain. No nausea, no
vomiting. Reports having gas and bowel movement.
Objective Data
-
Labs:
Laboratory Results
02/05/25 02/05/25 02/05/25
00:32 01:48 04:06
WBC 8.4 8.7
Hgb 13.4 13.8
Hct 41.2 42.9
Plt Count 203 197
APTT 64.0 H
HCO3 26.8
Sodium 141 142
Potassium 3.6 3.6
Chloride 107 106
Carbon Dioxide 30 29
BUN 20 19
Creatinine 0.7 0.7
Glucose 146 H 150 H
Calcium 8.4 8.4
02/05/25
11:00
WBC
Hgb
Hct
Plt Count
APTT Pending
HCO3
Sodium
Potassium
Chloride
Carbon Dioxide
BUN
Creatinine
Glucose
Calcium
Vital Signs:
Vital Signs
Temp Pulse Resp BP Pulse Ox
98.1 F 106 18 110/56 97
02/05/25 08:25 02/05/25 08:25 02/05/25 08:25 02/05/25 08:25 02/05/25 08:25
I&O
02/04/25 02/05/25 02/06/25
06:59 06:59 06:59
Intake Total 3376.8 / 3483.5 3136.0 / 3136.0
Output Total 1924 / 1924 1375 / 1375
Balance 1451.8 / 1558.5 1761.0 / 1761.0
--- NOTE | 2025-02-05 10:22 | W.PN.CRS1 ---
Today's Communication / Plan
-
ngt if vomits
tpn
Assessment/Plan
-
POD#7 exploratory laparotomy, mesenteric angiography, partial omentectomy, tap block, abdominal closure
01/31-extubated, NG tube removed by patient
02/05- repeat CT A/P due to abdominal pain, CT head due to confusion, NGT pulled by patient
Hgb 8.7, Hgb 13.8
Afebrile, 106-115
-No plans for further surgery at this time
-If patient vomits, will need NGT replaced
-Remain n.p.o. Continue with TPN.
-Daily wound dressing changes
-OOB as tolerated
-On a heparin gtt
Subjective Data
Procedure
01/27/2025- Ex lap, SMA embolectomy
Subjective Data
Date of Service: February 05, 2025
Patient states he has some abdominal pain. Per RN, he is confused. He does not remember getting a CT scan early this morning. He denies nausea or vomiting. He pulled out his NGT this morning.
Objective Data
-
Vital Signs
Temp Pulse Resp BP Pulse Ox
98.1 F 106 18 110/56 97
02/05/25 08:25 02/05/25 08:25 02/05/25 08:25 02/05/25 08:25 02/05/25 08:25
Intake & Output
02/04/25 02/05/25 02/06/25
06:59 06:59 06:59
Intake Total 3376.8 / 3483.5 3136.0 / 3136.0
Output Total 1924 / 1924 1375 / 1375
Balance 1451.8 / 1558.5 1761.0 / 1761.0
Intake:
Oral fluids 940 / 940 460 / 460
IV fluids (Total) 1052.8 / 1096.5 218.5 / 218.5
Amiodarone 400.8 / 417.5 83.5 / 83.5
Heparin 652 / 679 135 / 135
IV piggybacks 60 / 60 726.5 / 726.5
TPN/PPN 1284 / 1347 1701 / 1701
Amount instilled into GI Tube ( 40 / 40 30 / 30
Total)
Defiance Sump 40 / 40 30 / 30
Output:
Gastrointestinal tube output ( 900 / 900 800 / 800
Total)
Defiance Sump 900 / 900 800 / 800
Urine, Wilkerson 0 / 0
Urine, Voided 1025 / 1025 575 / 575
Other:
Number of approximated MODERATE 1
amounts of urine
Number of unmeasured liquid
stools
Rectum 1 1
Lab Results
02/05/25 04:06
02/05/25 04:06
Physical Exam
-
General: No Acute Distress
Abdomen: Soft and Distended
Incision: Clear, Dry, Intact
[2025-02-05] MEDS: LASIX 40 MG TUBE ×2 (11:27→17:21)
[2025-02-05] MEDS: THIAMINE INJECTION 100 MG IV (11:29)
[2025-02-05] MEDS: PROTONIX IV 40 MG IV (11:30)
[2025-02-05] MEDS: NSS (PRESERVATIVE FREE) 10 ML IV (11:30)
--- NOTE | 2025-02-05 11:30 | PTCARENOTE ---
Patient is agreeable to have a new IV site put in and resume Heparin drip. Heparin restarted at 1148. PTT cancelled for 1100 and rescheduled for 1745.
[2025-02-05 11:31] VITALS: BP 104/62
--- NOTE | 2025-02-05 11:36 | W.PN.CARDCBS ---
Today's Communication / Plan
-
Heart rate controlled on IV Lopressor and IV amiodarone
Changed to oral Toprol and oral amiodarone when reliably taking p.o.'s as he continues on TPN
Continue IV heparin and changed to Eliquis when okay with surgery
Updated family in room
Impression / Plan
-
Primary Waiter/Waitress Head: Dr. Pickett
Primary EP: Dr Solorio
PCP: Dr Peñaloza
Patient with history of cardioembolic occlusion of left common femoral artery 06/2023, right iliac artery occlusion status post thromboembolectomy 10/29/2024. During that time was also noted to be in persistent rapid A-fib initially discovered
07/2023 with history of noncompliance with medications. Also with known low EF suspected tachycardia mediated status post cath 05/2024 with nonobstructive CAD.
He presented back to the ED 11/2024 due to generalized malaise and was noted to have a seroma of his right groin s/p I/D and wound vac. He was also found to be in decompensated heart failure with reduced ejection fraction and have atrial
fibrillation with rapid ventricular rates. Plan for LUIS ENRIQUE cardioversion but LUIS ENRIQUE 01/04/2025 showed massive occlusive thrombus in left atrial appendage. Most recently, presented on 01/27/2025 with acute onset abdominal pain found to have acute
mesenteric ischemia with SMA occlusion, went to OR for exploratory laparotomy and SMA thrombectomy. Postop shock with metabolic/lactic acidosis, on Levophed and intubated. Cardiology consulted for management of atrial fibrillation and heart failure
Assessment:
Acute mesenteric ischemia with SMA occlusion, status post exploratory lap and SMA thrombectomy 12/30/2024
Acute hypoxemic respiratory failure
Shock with metabolic/lactic acidosis
Right groin seroma
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
Persistent atrial fibrillation, first discovered July 2023
Non-GA myocardial injury
Chronic OAC with eliquis
Left atrial appendage thrombus by LUIS ENRIQUE 12/2024
Chronic HFrEF
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
NSVT
Hyperthyroidism
Noncompliance
Depression
History of ETOH and tobacco abuse
Obesity
Ventilator dependent respiratory failure
ECHO 04/04/2024: EF 10 to 15%, severe global hypokinesis, mild MR, trace TR, PAP 30 to 33 mmHg
Cardiac catheterization 05/22/2024: Nonobstructive coronary disease with normal to mildly elevated right and left-sided filling pressures with normal cardiac output
Echocardiogram 10/30/2024: Severely dilated left ventricle, severely reduced LV systolic function, global hypokinesis with ejection fraction of 5-10%, moderate to severe eccentric TR with PA pressure of 30-35 mmHg, small pericardial effusion.
LUIS ENRIQUE 01/04/2025: LVEF 10 to 15%, definite massive occlusive thrombus in left atrial appendage, mild MR, moderate to severe TR
Plan:
Rate control reasonable in A-fib.
Continue IV amiodarone and IV Lopressor until we know he is able to take p.o.'s reliably
Change to oral Toprol and amiodarone when able to take p.o.'s reliably. He continues with TPN
Volume status appears reasonable.
Continue oral Lasix
He has had 3 cardiac embolic events in the past 9 months felt to be due to noncompliance. Continue IV heparin and eventually restart Eliquis.
His severe LV dysfunction is likely tachycardia mediated and related to noncompliance.
Progress Note - Waiter/Waitress Head
Subjective
Date of Service: February 05, 2025
No complaints. Wants to eat
Objective
Labs:
02/05/25 04:06
02/05/25 04:06
Labs
Hgb 13.8 g/dL (13.0-18.0) 02/05/25 04:06
Hct 42.9 % (39.0-52.0) 02/05/25 04:06
Plt Count 197 10^3/uL (130-400) 02/05/25 04:06
PT 18.0 Sec (11.4-14.6) H 01/28/25 06:36
INR 1.46 01/28/25 06:36
APTT 64.0 Sec (23.4-35.0) H 02/05/25 04:06
Sodium 142 mmol/L (135-145) 02/05/25 04:06
Potassium 3.6 mmol/L (3.5-5.1) 02/05/25 04:06
BUN 19 mg/dl (9-20) 02/05/25 04:06
Creatinine 0.7 mg/dL (0.7-1.3) 02/05/25 04:06
Glucose 150 mg/dl (70-99) H 02/05/25 04:06
Vital Signs and I&O:
Vital Signs
Temp Pulse Resp BP Pulse Ox
98.2 F 101 18 104/62 96
02/05/25 11:31 02/05/25 11:31 02/05/25 11:31 02/05/25 11:31 02/05/25 11:31
Vital Signs
Temp Pulse Resp BP Pulse Ox
98.2 F 101 18 104/62 96
02/05/25 11:31 02/05/25 11:31 02/05/25 11:31 02/05/25 11:31 02/05/25 11:31
Intake & Output
02/03/25 02/04/25 02/05/25 02/06/25
06:59 06:59 06:59 06:59
Intake Total 1207.7 / 1296.4 3376.8 / 3483.5 3136.0 / 3136.0
Output Total 2875 / 2875 1925 / 1925 1375 / 1375
Balance -1667.3 / -1578.6 1451.8 / 1558.5 1761.0 / 1761.0
Physical Exam
Physical Exam
General: Well developed, well nourished in NAD.
Neck: Supple, no JVD, HJR, carotids +2 B/L, no bruits bilaterally.
Heart: Non displaced PMI, irregular, no murmurs, No S3, S4, no rubs.
Lungs: Scattered rhonchi
Abdomen: Distended
Extremities: No clubbing, cyanosis or edema bilaterally.
Neuro: Grossly nonfocal, awake, alert and oriented x3.
[2025-02-05] MEDS: LOPRESSOR 7.5 MG IV ×3 (11:38→23:25)
[2025-02-05 12:28] LABS: Glucose - Point of Care 140 mg/dl (70-99)
[2025-02-05 15:25] VITALS: BP 112/59
--- NOTE | 2025-02-05 15:29 | CM ---
Chart reviewed
NPO
TPN
Wound care
[facility] at d/c
Plan - anticipate SNF when medically ready
[2025-02-05 17:54] LABS: APTT 78.5 Sec (23.4-35.0)
[2025-02-05 18:02] LABS: Glucose - Point of Care 157 mg/dl (70-99)
[2025-02-05 18:44] LABS: Urine Albumin 3+ (Neg - Trace); Urine Bilirubin 3+ (Negative); Urine Character Clear (Clear); Urine Color Amber; Urine Glucose Negative (Negative); Urine Ketone Negative (Negative); Urine Leukocyte 1+ (Negative); Urine Nitrite Positive (Negative); Urine Occult Blood 1+ (Negative); Urine Urobilinogen 2+ (Neg - 1+)
[2025-02-05 18:51] LABS: Urine Squamous Cell 0-2 /LPF (Few)
[2025-02-05 18:53] LABS: Urine Bacteria Many (Negative); Urine Yeast Few (Negative)
[2025-02-05 19:10] VITALS: BP 109/74
[2025-02-05] MEDS: CORDARONE 518 MG IV (19:51)
[2025-02-05] MEDS: Parenteral Nutrition, Central 1520 IV (20:24)
[2025-02-05 23:04] LABS: Glucose - Point of Care 167 mg/dl (70-99)
[2025-02-05 23:10] VITALS: BP 102/61
[2025-02-05] MEDS: NOVOLOG FLEXPEN-MODERATE RESISTANCE 1 UNITS SC (23:44)
[2025-02-06] VITALS (8 sets, daily range): BP systolic 93–144; BP diastolic 49–71; PULSE 101; O2SAT 96; BMI 34.7
[2025-02-06 00:42] LABS: APTT 72.3 Sec (23.4-35.0)
[2025-02-06] MEDS: HEPARIN 25000 UNITS/250 ML IV ×3 (04:18→22:29)
[2025-02-06] MEDS: LOPRESSOR IV (05:00)
[2025-02-06] MEDS: NOVOLOG FLEXPEN-MODERATE RESISTANCE SC ×2 (05:08→11:34)
[2025-02-06 05:09] LABS: Glucose - Point of Care 145 mg/dl (70-99)
[2025-02-06 07:08] LABS: Hematocrit 37.3 % (39.0-52.0); Hemoglobin 12.3 g/dL (13.0-18.0); Mean Corpuscular Hgb 31.5 pg (27.0-31.0); Mean Corpuscular Volume 95.6 fL (80.0-94.0); Mean Platelet Volume 10.7 fL (7.4-10.4); Platelet Count 188 10^3/uL (130-400); Red Cell Dist. Width 17.2 % (11.5-14.5); White Blood Cell Count 7.9 10^3/uL (4.8-10.8)
[2025-02-06 07:18] LABS: Glucose - Point of Care 136 mg/dl (70-99)
[2025-02-06 07:21] LABS: APTT 83.7 Sec (23.4-35.0)
--- NOTE | 2025-02-06 07:37 | PN.DE.MGMTRT ---
Insulin Management
- -
02/06/2025: Diabetes Management Follow up
59 year old male with PMH: A-fib, hyperthyroidism, chronic HFrEF, LLE arterial occlusion due to thromboembolism (06/2023), h/o acute limb ischemia of RLE with thromboembolic occlusion of the right iliac system s/p thromboembolectomy of the right
iliac system + thromboembolectomy of the right SFA, popliteal artery.
Patient presented to the ED with abdominal pain and SOB. CTA showed thrombosis of the SMA s/p ex lap with thromboembolectomy of SMA and placement of an AbThera Vac 01/27/25. Postoperatively he was started on the glycemic protocol due to
hyperglycemia. Was taking Jardiance 10mg daily JOWL TRIMMER. A1C 6.3%, Cr 1.1, eGFR >60.
Pt is asleep at the time of my visit. He has been removing IV s 2 removed NGT, combative. Continues to have 1:1. Did not discuss diabetes plan of care.
POD# 8 exploratory laparotomy, mesenteric angiography, partial omentectomy, tap block, abdominal closure
Remains NPO, receiving TPN, ordered ice chips now. Glucose stable and in range, 140 to 167, with moderate corrective insulin Q6 hours.
Will make no changes. Will cont to follow. Discussed with Nurse.
Diabetes History
- -
Pre-Admission Diabetes Regimen
Lab Results
Hemoglobin A1c 6.3 % (4.0-5.6) H 01/27/25 14:42
Insulin Pump Settings
IP Diabetes Regimen
02/05/25 02/05/25 02/05/25
12:26 18:00 23:01
POC Glucose 140 H 157 H 167 H
02/06/25 02/06/25
05:07 07:17
POC Glucose 145 H 136 H
Meal type: Dinner
Meal type: Lunch
Meal type: Breakfast
Patient Education
[2025-02-06 07:58] LABS: Blood Urea Nitrogen 19 mg/dl (9-20); Carbon Dioxide 27 mmol/L (22-30); Chloride 111 mmol/L (98-107); Estimated Creatinine Clearance > 125 ml/min; Glucose 142 mg/dl (70-99); Potassium 3.2 mmol/L (3.5-5.1); Sodium 143 mmol/L (135-145); eGFR > 60.00
--- NOTE | 2025-02-06 08:52 | W.PN.HOSP.TC ---
Addendum entered and electronically signed by Philip Sharma MD 02/06/25 14:58:
Correction:
Colorectal surgery states if there is no significant bowel dilation on abdominal x-ray today, then he would be okay for clears.
Currently still n.p.o. until colorectal surgery states otherwise.
Original Note:
Today's Communication/Plan
-
see bold
Assessment / Plan
Assessment / Plan
HPI: 59 year old male with hx dilated cardiomyopathy, EF 5-10%, afib with known LV thrombus on AC non-compliant, left lower extremity arterial occlusion due to thromboembolism 07/06 and acute limb ischemia RLE s/p thromboembolectomy 11/06 presents
to the ER with abdominal pain and shortness of breath. CT A/P showed thrombosis of the SMA s/p ex lap with thromboembolectomy of SMA and placement of an AbThera Vac 01/27/25; s/p ex lap with partial omentectomy and abdominal closure on 01/28.
Post-op course with ileus.
A/P:
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
Post-op Ileus
-appreciate vascular, CRS, Attendant [employer] consults
-s/p OR 01/27/25; thromboembolectomy of SMA, placement ABThera Vac
-s/p OR 01/28: Procedure Performed: Exploratory laparotomy, mesenteric angiography, partial omentectomy, tap block, abdominal closure
-s/p IV Zosyn - completed 7 day course, s/p Levophed now off
-patient pulled NGT out overnight 01/31-02/01 - replaced 02/01 as patient had nausea/likely ileus; did not pass clamping trial on 02/02
-TPN initiated on 02/02
-02/03 patient had reported burgundy stool, likely old blood; Hg has been stable
-PT ordered; encouraging OOB to chair
-02/05 early AM, pulled out his NG tube
-02/06, ok for clear liquid diet, continue TPN until tolerating solid food
-continue IV heparin gtt
Hypoxic Respiratory Failure status post intubation
-extubated on 01/30
Hypokalemia
-replete as needed
Toxic metabolic encephalopathy
-Monitor
Permanent AFIB with RVR
Left atrial appendage thrombus
-appreciate Cardiology, continue IV amiodarone drip, IV metoprolol, IV heparin drip
-resume Metoprolol when able to take PO
-resume Eliquis when confirm no need for further procedures
Acute on chronic HFrEF (EF 5-10%)
-hold ROOM SERVICE MANAGER Entresto and Metop XL until patient can take PO meds
-s/p IV diuresis; Lasix on hold 02/03 - spot dose Lasix per Cardiology to keep euvolemic; resume pills when can take PO
-appreciate Cardiology
Bacteruria
-UA on 02/05/25 with bacteuria
-Start Rocephin day 1, check urine cultures
Hyperthyroid--new diagnosis last admission?--on methimazole but would hold for now
-repeat TSH here WNL
PAD
Active smoker--educated on importance of cessation
DVT proph--IV heparin drip
Code status - Full Code
Total time spent to see the patient on the floor, examine the patient, review data and lab results, discuss treatment plan with patient, nursing staff around 51 minutes.
Physical Exam
General: Obese, no acute distress
HEENT: Normocephalic, Atraumatic, EOMI, MMM
Respiratory: Clear to Auscultation bilaterally
Cardiac: Normal S1/S2, Regular Rate and Rhythm
GI: Soft, distended, incision dressed
Extremities: No Clubbing, Cyanosis, or Edema
Neuro: Nonfocal/Grossly Intact
Psych: Intermittently agitated, frustrated
Anticipated Discharge: > 48 hours
Subjective/Interval History
-
Date of Service: February 06, 2025
Patient denies abdominal pain. No nausea, no vomiting. He is passing gas and stool. No fever. No chest pain, no shortness of breath.
Objective Data
-
Labs:
Laboratory Results
02/06/25 02/06/25
00:04 07:01
WBC 7.9
Hgb 12.3 L
Hct 37.3 L
Plt Count 188
APTT 72.3 H 83.7 H
Sodium 143
Potassium 3.2 L
Chloride 111 H
Carbon Dioxide 27
BUN 19
Creatinine 0.7
Glucose 142 H
Calcium 8.0 L
Vital Signs:
Vital Signs
Temp Pulse Resp BP Pulse Ox
98.3 F 90 14 93/54 94
02/06/25 07:20 02/06/25 07:20 02/06/25 07:20 02/06/25 07:20 02/06/25 07:20
I&O
02/05/25 02/06/25 02/07/25
06:59 06:59 06:59
Intake Total 3136.0 / 3136.0 1350 / 1350
Output Total 1375 / 1375 450 / 450
Balance 1761.0 / 1761.0 900 / 900
[2025-02-06] MEDS: THIAMINE INJECTION 100 MG IV (09:35)
[2025-02-06] MEDS: ROCEPHIN 1000 MG IV (09:36)
[2025-02-06] MEDS: NSS (PRESERVATIVE FREE) 10 ML IV (09:36)
[2025-02-06] MEDS: STERILE WATER FOR INJECTION 10 ML IV (09:36)
[2025-02-06] MEDS: PROTONIX IV 40 MG IV (09:36)
[2025-02-06] MEDS: KCL 260 MEQ IV (09:37)
--- NOTE | 2025-02-06 09:38 | W.PN.CRS1 ---
Today's Communication / Plan
-
Abdominal x-rays
TPN
Assessment/Plan
-
POD#8 exploratory laparotomy, mesenteric angiography, partial omentectomy, tap block, abdominal closure
01/31-extubated, NG tube removed by patient
02/05- repeat CT A/P due to abdominal pain, CT head due to confusion, NGT pulled by patient
WBC 7.9, Hgb 12.3
Tmax 100.4. HR 90-110s.
-No plans for further surgery at this time
-Abdominal x-rays ordered
-Remain n.p.o. for now. Okay for ice chips. Continue with TPN.
-Daily wound dressing changes
-OOB as tolerated
-On a heparin gtt
Subjective Data
Procedure
01/27/2025- Ex lap, SMA embolectomy
Subjective Data
Date of Service: February 06, 2025
Patient states he feels like he has a dry mouth. He is having flatus and had a bowel movement overnight that was liquid. He is not confused at the moment.
Objective Data
-
Vital Signs
Temp Pulse Resp BP Pulse Ox
98.3 F 90 14 93/54 94
02/06/25 07:20 02/06/25 07:20 02/06/25 07:20 02/06/25 07:20 02/06/25 07:20
Intake & Output
02/05/25 02/06/25 02/07/25
06:59 06:59 06:59
Intake Total 3136.0 / 3136.0 1350 / 1350
Output Total 1375 / 1375 450 / 450
Balance 1761.0 / 1761.0 900 / 900
Intake:
Oral fluids 460 / 460 120 / 120
IV fluids (Total) 218.5 / 218.5
Amiodarone 83.5 / 83.5
Heparin 135 / 135
IV piggybacks 726.5 / 726.5 480 / 480
TPN/PPN 1701 / 1701 750 / 750
Amount instilled into GI Tube (
Total)
[place] Sump 30 / 30
Output:
Gastrointestinal tube output ( 800 / 800
Total)
[place] Sump 800 / 800
Urine, [place] 0 / 0
Urine, Voided 575 / 575 450 / 450
Other:
Number of approximated MODERATE 1
amounts of urine
Number of unmeasured liquid
stools
Rectum 1
Lab Results
02/06/25 07:01
02/06/25 07:01
Physical Exam
-
General: No Acute Distress and AOx3
Abdomen: Soft, Distended and Non Tender
Wound: Dressing in Place
[2025-02-06] MEDS: LASIX 40 MG TUBE ×2 (09:42→17:22)
--- NOTE | 2025-02-06 11:10 | W.PN.CARDCBS ---
Today's Communication / Plan
-
Continue IV amiodarone and IV Lopressor.
For repeat abdominal x-rays to assess small bowel obstruction and ileus. Hopefully restart clears soon.
Continue IV heparin with eventual transition to Eliquis when taking oral medication
Impression / Plan
-
Primary Eyeglass Fitter: Dr. Pickett
Primary EP: Dr Solorio
PCP: Dr Peñaloza
Patient with history of cardioembolic occlusion of left common femoral artery 06/2023, right iliac artery occlusion status post thromboembolectomy 10/29/2024. During that time was also noted to be in persistent rapid A-fib initially discovered
07/2023 with history of noncompliance with medications. Also with known low EF suspected tachycardia mediated status post cath 05/2024 with nonobstructive CAD.
He presented back to the ED 11/2024 due to generalized malaise and was noted to have a seroma of his right groin s/p I/D and wound vac. He was also found to be in decompensated heart failure with reduced ejection fraction and have atrial
fibrillation with rapid ventricular rates. Plan for LUIS ENRIQUE cardioversion but LUIS ENRIQUE 01/04/2025 showed massive occlusive thrombus in left atrial appendage. Most recently, presented on 01/27/2025 with acute onset abdominal pain found to have acute
mesenteric ischemia with SMA occlusion, went to OR for exploratory laparotomy and SMA thrombectomy. Postop shock with metabolic/lactic acidosis, on Levophed and intubated. Cardiology consulted for management of atrial fibrillation and heart failure
Assessment:
Acute mesenteric ischemia with SMA occlusion, status post exploratory lap and SMA thrombectomy 12/30/2024
Acute hypoxemic respiratory failure
Shock with metabolic/lactic acidosis
Right groin seroma
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
Persistent atrial fibrillation, first discovered July 2023
Non-GA myocardial injury
Chronic OAC with eliquis
Left atrial appendage thrombus by LUIS ENRIQUE 12/2024
Chronic HFrEF
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
NSVT
Hyperthyroidism
Noncompliance
Depression
History of ETOH and tobacco abuse
Obesity
Ventilator dependent respiratory failure
ECHO 04/04/2024: EF 10 to 15%, severe global hypokinesis, mild MR, trace TR, PAP 30 to 33 mmHg
Cardiac catheterization 05/22/2024: Nonobstructive coronary disease with normal to mildly elevated right and left-sided filling pressures with normal cardiac output
Echocardiogram 10/30/2024: Severely dilated left ventricle, severely reduced LV systolic function, global hypokinesis with ejection fraction of 5-10%, moderate to severe eccentric TR with PA pressure of 30-35 mmHg, small pericardial effusion.
LUIS ENRIQUE 01/04/2025: LVEF 10 to 15%, definite massive occlusive thrombus in left atrial appendage, mild MR, moderate to severe TR
Plan:
Remains in rate controlled atrial fibrillation. Getting abdominal x-rays today and hopefully can start oral medication soon.
Continue IV amiodarone and IV Lopressor until we know he is able to take p.o.'s reliably
He continues with TPN
Volume status appears reasonable.
Continue oral Lasix. Creatinine 0.7. Potassium 3.2
He has had 3 cardiac embolic events in the past 9 months felt to be due to noncompliance. Continue IV heparin and eventually restart Eliquis. Hemoglobin stable at 12.3.
His severe LV dysfunction is likely tachycardia mediated and related to noncompliance.
Long-term plan would likely be to repeat transesophageal echo once he recovers from abdominal procedures and then make a plan regarding risk of ablation.
Progress Note - Eyeglass Fitter
Subjective
Date of Service: February 06, 2025
For abdominal x-rays today then hopefully start clear liquids. He denies chest pains or shortness of breath. He does not feel his A-fib.
Objective
Labs:
02/06/25 07:01
02/06/25 07:01
Labs
Hgb 12.3 g/dL (13.0-18.0) L 02/06/25 07:01
Hct 37.3 % (39.0-52.0) L 02/06/25 07:01
Plt Count 188 10^3/uL (130-400) 02/06/25 07:01
PT 18.0 Sec (11.4-14.6) H 01/28/25 06:36
INR 1.46 01/28/25 06:36
APTT 83.7 Sec (23.4-35.0) H 02/06/25 07:01
Sodium 143 mmol/L (135-145) 02/06/25 07:01
Potassium 3.2 mmol/L (3.5-5.1) L 02/06/25 07:01
BUN 19 mg/dl (9-20) 02/06/25 07:01
Creatinine 0.7 mg/dL (0.7-1.3) 02/06/25 07:01
Glucose 142 mg/dl (70-99) H 02/06/25 07:01
Vital Signs and I&O:
Vital Signs
Temp Pulse Resp BP Pulse Ox
98.3 F 94 14 123/70 94
02/06/25 07:20 02/06/25 09:42 02/06/25 07:20 02/06/25 09:42 02/06/25 07:20
Vital Signs
Temp Pulse Resp BP Pulse Ox
98.3 F 94 14 123/70 94
02/06/25 07:20 02/06/25 09:42 02/06/25 07:20 02/06/25 09:42 02/06/25 07:20
Intake & Output
02/04/25 02/05/25 02/06/25 02/07/25
06:59 06:59 06:59 06:59
Intake Total 3376.8 / 3483.5 3136.0 / 3136.0 1350 / 1350
Output Total 1925 / 1925 1375 / 1375 450 / 450
Balance 1451.8 / 1558.5 1761.0 / 1761.0 900 / 900
Physical Exam
Physical Exam
GEN: No distress, awake, Ox3
HEENT: supple, anicteric, mmm
LUNGS: CTA, no wheezes/rales
CV: Irreg, S1/S2, 1/6 syst LSB, no gallop
ABD: soft, BS+, mild tend
EXT: No edema
NEURO: Gross non-focal
SKIN: No rash
[2025-02-06 11:27] LABS: Glucose - Point of Care 123 mg/dl (70-99)
[2025-02-06] MEDS: LOPRESSOR 7.5 MG IV ×2 (12:39→17:23)
--- NOTE | 2025-02-06 12:57 | CM ---
Patient seen at bedside
cont NPO, TPN
1:1 patient pulled NGT last night
PT rec SNF
PLAN: SNF, pending bed availability when medically ready
[2025-02-06 13:45] LABS: APTT 74.2 Sec (23.4-35.0)
[2025-02-06 16:59] LABS: Glucose - Point of Care 164 mg/dl (70-99)
[2025-02-06] MEDS: NOVOLOG FLEXPEN-MODERATE RESISTANCE 1 UNITS SC (17:23)
--- NOTE | 2025-02-06 17:55 | PTCARENOTE ---
Patient had six beat run of V-Tach. Converted back to A-Fib spontaneously. Asymptomatic. Notified covering Philip [facility]IM[facility] Do.
[2025-02-06] MEDS: DILAUDID 0.5 MG IV (19:52)
[2025-02-06] MEDS: Parenteral Nutrition, Central 1520 IV (20:54)
[2025-02-06 23:49] LABS: Glucose - Point of Care 131 mg/dl (70-99)
[2025-02-07] VITALS (12 sets, daily range): BP systolic 109–143; BP diastolic 63–85; BMI 36.3
[2025-02-07] MEDS: LOPRESSOR 7.5 MG IV ×3 (00:13→11:08)
[2025-02-07] MEDS: NOVOLOG FLEXPEN-MODERATE RESISTANCE SC ×3 (00:14→12:02)
[2025-02-07] MEDS: CORDARONE 518 MG IV (03:21)
[2025-02-07] MEDS: DILAUDID 0.5 MG IV ×2 (03:28→09:46)
--- NOTE | 2025-02-07 03:36 | PTCARENOTE ---
Resumed care of pt laying in bed AAOx3. HR 105-120 in Afib on the monitor. Pox 96% on RA. Round abd, hypo bowel. Midline abd dressing intact. Pt reports abd 06/23 at this time, see MAR. Right dual picc in place infusing TPN @63ml/hr, Amiodarone gtt
@0.5mg/min as ordered. Left Hand int infusing Heparin gtt @2900units/hr. LUE int capped. Pt repositioned in bed per comfort. Pt cooperative at this time. Will continue to monitor.
[2025-02-07 05:45] LABS: Glucose - Point of Care 140 mg/dl (70-99)
[2025-02-07 06:49] LABS: APTT 52.9 Sec (23.4-35.0); Hematocrit 37.7 % (39.0-52.0); Mean Corp Hgb Conc. 31.8 g/dL (33.0-37.0); Mean Corpuscular Hgb 31.5 pg (27.0-31.0); Mean Platelet Volume 11.7 fL (7.4-10.4); Platelet Count 185 10^3/uL (130-400); Red Blood Cell Count 3.81 10^6/uL (4.70-6.10); Red Cell Dist. Width 17.4 % (11.5-14.5); White Blood Cell Count 8.3 10^3/uL (4.8-10.8)
[2025-02-07 07:00] LABS: Blood Urea Nitrogen 20 mg/dl (9-20); Calcium 8.1 mg/dl (8.4-10.2); Carbon Dioxide 28 mmol/L (22-30); Chloride 110 mmol/L (98-107); Estimated Creatinine Clearance > 125 ml/min; Glucose 148 mg/dl (70-99); Potassium 3.3 mmol/L (3.5-5.1); Sodium 145 mmol/L (135-145); eGFR > 60.00
[2025-02-07] MEDS: HEPARIN 25000 UNITS/250 ML IV ×2 (07:12→19:07)
--- NOTE | 2025-02-07 07:42 | PN.DE.MGMTRT ---
Insulin Management
- -
02/07/2025: Diabetes Management Follow up
Patient admitted 01/27 with abdominal pain and SOB PMH: A-fib, hyperthyroidism, chronic HFrEF, LLE arterial occlusion due to thromboembolism (06/2023), h/o acute limb ischemia of RLE with thromboembolic occlusion of the right iliac system s/p
thromboembolectomy of the right iliac system + thromboembolectomy of the right SFA, popliteal artery. Prior to admission was taking Jardiance 10mg daily. A1C 6.3%, Cr 1.1, eGFR >60.
CTA showed thrombosis of the SMA s/p ex lap with thromboembolectomy of SMA and placement of an AbThera Vac 01/27/25. Postoperatively he was started on the glycemic protocol due to hyperglycemia.
Patient is confused, continues with 1:1, NPO. For CT of abdomen.
POD# 9 exploratory laparotomy, mesenteric angiography, partial omentectomy, tap block, abdominal closure.
Continues with TPN, glucose 02/06 123 to 164. Will continue moderate corrective Q 6 hours.
Will cont to follow.
Discussed with Nurse.
Diabetes History
- -
Type of Diabetes: 2
Pre-Admission Diabetes Regimen
02/06/25 02/07/25
07:01 05:41
Creatinine 0.7 0.7
Lab Results
Hemoglobin A1c 6.3 % (4.0-5.6) H 01/27/25 14:42
Insulin Pump Settings
IP Diabetes Regimen
02/06/25 02/06/25 02/06/25
07:01 11:25 16:57
Glucose 142 H
POC Glucose 123 H 164 H
02/06/25 02/07/25 02/07/25
23:48 05:41 05:44
Glucose 148 H
POC Glucose 131 H 140 H
Meal type: Lunch
Meal type: Breakfast
Patient Education
--- NOTE | 2025-02-07 08:29 | W.PN.HOSP.TC ---
Today's Communication/Plan
-
Transfer to IMU
Add Cardizem drip, zosyn
Hold heparin drip
For OR today
Assessment / Plan
Assessment / Plan
HPI: 59 year old male with hx dilated cardiomyopathy, EF 5-10%, afib with known LV thrombus on AC non-compliant, left lower extremity arterial occlusion due to thromboembolism 07/06 and acute limb ischemia RLE s/p thromboembolectomy 11/06 presents
to the ER with abdominal pain and shortness of breath. CT A/P showed thrombosis of the SMA s/p ex lap with thromboembolectomy of SMA and placement of an AbThera Vac 01/27/25; s/p ex lap with partial omentectomy and abdominal closure on 01/28.
Post-op course with ileus.
A/P:
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
Post-op Ileus
-appreciate vascular, CRS, Biology Internship consults
-s/p OR 01/27/25; thromboembolectomy of SMA, placement ABThera Vac
-s/p OR 01/28: Procedure Performed: Exploratory laparotomy, mesenteric angiography, partial omentectomy, tap block, abdominal closure
-s/p IV Zosyn - completed 7 day course, s/p Levophed now off
-patient pulled NGT out overnight 01/31-02/01 - replaced 02/01 as patient had nausea/likely ileus; did not pass clamping trial on 02/02
-TPN initiated on 02/02
-02/03 patient had reported burgundy stool, likely old blood; Hg has been stable
-PT ordered; encouraging OOB to chair
-02/05 early AM, pulled out his NG tube
-02/07, CT abdomen and pelvis shows new mild intraperitoneal free air indicating a perforated viscus, for OR today w/ vascular surg
-Hold IV heparin gtt, continue NPO, TPN
-Add zosyn
Hypoxic Respiratory Failure status post intubation
-extubated on 01/30
Hypokalemia
-replete as needed
Toxic metabolic encephalopathy
-Monitor
Permanent AFIB with RVR
Left atrial appendage thrombus
-appreciate Cardiology, continue IV amiodarone drip, IV metoprolol, hold IV heparin drip for OR today
-02/07 - add cardizem drip to rapid fib, HR 135
-resume Metoprolol when able to take PO
-resume Eliquis when confirm no need for further procedures
Acute on chronic HFrEF (EF 5-10%)
-hold [facility] Entresto and Metop XL until patient can take PO meds
-Continue IV Lasix as per cardiology
-Trend creatinine, trend daily weights
Bacteruria
-UA on 02/05/25 with bacteuria
-Was on Rocephin, changed to Zosyn as above
Hyperthyroid--new diagnosis last admission?--on methimazole but would hold for now
-repeat TSH here WNL
PAD
Active smoker--educated on importance of cessation
DVT proph--holding IV heparin drip
Code status - Full Code
Total time spent to see the patient on the floor, examine the patient, review data and lab results, discuss treatment plan with patient, nursing staff around 52 minutes.
Physical Exam
General: Obese, no acute distress
HEENT: Normocephalic, Atraumatic, EOMI, MMM
Respiratory: Clear to Auscultation bilaterally
Cardiac: Normal S1/S2, tachycardic rate and irregular rhythm
GI: Soft, distended, incision dressed
Extremities: No Clubbing, Cyanosis
Neuro: Nonfocal/Grossly Intact
Psych: Intermittently agitated, frustrated
Anticipated Discharge: > 48 hours
Subjective/Interval History
-
Date of Service: February 07, 2025
Patient reports abdominal pain, thinks it is gas discomfort. He had a liquid stool yesterday. No nausea, no vomiting. No chest pain, no shortness of breath. No fever.
Objective Data
-
Labs:
Laboratory Results
02/07/25
05:41
WBC 8.3
Hgb 12.0 L
Hct 37.7 L
Plt Count 185
APTT 52.9 H
Sodium 145
Potassium 3.3 L
Chloride 110 H
Carbon Dioxide 28
BUN 20
Creatinine 0.7
Glucose 148 H
Calcium 8.1 L
Vital Signs:
Vital Signs
Temp Pulse Resp BP Pulse Ox
97.8 F 99 18 120/67 95
02/07/25 07:40 02/07/25 07:40 02/07/25 07:40 02/07/25 07:40 02/07/25 07:40
I&O
02/06/25 02/07/25 02/08/25
06:59 06:59 06:59
Intake Total 1350 / 1350 2499.4 / 2499.4
Output Total 450 / 450 1150 / 1150
Balance 900 / 900 1349.4 / 1349.4
--- NOTE | 2025-02-07 09:01 | W.PN.CRS1 ---
Addendum entered and electronically signed by Brian Wyatt MD 02/07/25 13:25:
Xray showing free air; repeat CT showing free air, possible perforation from proximal small bowel, but not clear; d/w Adan, mesenteric vessels appear patent; will take patient urgently to OR; spoke with patient and patient's mother, both
agreeable
Original Note:
Today's Communication / Plan
-
As below
Assessment/Plan
-
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
POD 10 takeback, abdominal closure�I will well-perfused, confirmed on mesenteric angiography
POD 11 ex lap SMA thromboembolectomy by Dr. Wilkerson; intraoperative consult for mesenteric ischemia without overt signs of necrosis
AFVSS
WBC 8.3 from 7.9, Hb stable, CR 0.7
� Delayed return of bowel function, passing flatus and had a liquid stool
�Abdominal x-rays showing persistent bowel dilation; will repeat today
�Continue n.p.o., okay for ice chips, no p.o. meds
� Continue TPN until tolerating solid food
� Continue pain control with Dilaudid as needed
�Continue hep drip
� Appreciate hospitalist
Subjective Data
Procedure
01/27/2025- Ex lap, SMA embolectomy
Subjective Data
Date of Service: February 07, 2025
No overnight events. Patient still complaining of hiccups.
Pain controlled.
Denies nausea/vomiting. Still bloated.
Unclear about amount of flatus. Passed a liquid stool overnight.
Objective Data
-
Vital Signs
Temp Pulse Resp BP Pulse Ox
97.8 F 99 18 120/67 95
02/07/25 07:40 02/07/25 07:40 02/07/25 07:40 02/07/25 07:40 02/07/25 07:40
Intake & Output
02/06/25 02/07/25 02/08/25
06:59 06:59 06:59
Intake Total 1350 / 1350 2499.4 / 2499.4
Output Total 450 / 450 1150 / 1150
Balance 900 / 900 1349.4 / 1349.4
Intake:
Oral fluids 120 / 120
IV fluids (Total) 502 / 502
IV piggybacks 480 / 480 548.4 / 548.4
TPN/PPN 750 / 750 1449 / 1449
Output:
Urine, Voided 450 / 450 1150 / 1150
Lab Results
02/07/25 05:41
02/07/25 05:41
Physical Exam
-
General: No Acute Distress and AOx3
Abdomen: Soft, Distended (Moderately distended with tympany), Tender (Appropriately tender near incision), No Guarding and No Rebound
Skin: Warm and Dry
Wound: No Signs of Infection, Dressing in Place, No Skin Erythema and Other (Midline incision with intermittent bry, healing well, no surrounding erythema or purulent drainage)
[2025-02-07] MEDS: STERILE WATER FOR INJECTION 10 ML IV (09:04)
[2025-02-07] MEDS: ROCEPHIN 1000 MG IV (09:05)
[2025-02-07] MEDS: PROTONIX IV 40 MG IV (09:06)
[2025-02-07] MEDS: NSS (PRESERVATIVE FREE) 10 ML IV (09:06)
--- NOTE | 2025-02-07 09:15 | W.PN.CARDCBS ---
Today's Communication / Plan
-
Continue IV amiodarone, Lopressor and heparin
He has received quite a bit of volume the past few days resume Lasix in IV form until taking oral.
Impression / Plan
-
Primary Ct Mri Technologist: Dr. Pickett
Primary EP: Dr Solorio
PCP: Dr Peñaloza
Patient with history of cardioembolic occlusion of left common femoral artery 06/2023, right iliac artery occlusion status post thromboembolectomy 10/29/2024. During that time was also noted to be in persistent rapid A-fib initially discovered
07/2023 with history of noncompliance with medications. Also with known low EF suspected tachycardia mediated status post cath 05/2024 with nonobstructive CAD.
He presented back to the ED 11/2024 due to generalized malaise and was noted to have a seroma of his right groin s/p I/D and wound vac. He was also found to be in decompensated heart failure with reduced ejection fraction and have atrial
fibrillation with rapid ventricular rates. Plan for LUIS ENRIQUE cardioversion but LUIS ENRIQUE 01/04/2025 showed massive occlusive thrombus in left atrial appendage. Most recently, presented on 01/27/2025 with acute onset abdominal pain found to have acute
mesenteric ischemia with SMA occlusion, went to OR for exploratory laparotomy and SMA thrombectomy. Postop shock with metabolic/lactic acidosis, on Levophed and intubated. Cardiology consulted for management of atrial fibrillation and heart failure
Assessment:
Acute mesenteric ischemia with SMA occlusion, status post exploratory lap and SMA thrombectomy 12/30/2024
Acute hypoxemic respiratory failure
Shock with metabolic/lactic acidosis
Right groin seroma
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
Persistent atrial fibrillation, first discovered July 2023
Non-AZ myocardial injury
Chronic OAC with eliquis
Left atrial appendage thrombus by LUIS ENRIQUE 12/2024
Chronic HFrEF
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
NSVT
Hyperthyroidism
Noncompliance
Depression
History of ETOH and tobacco abuse
Obesity
Ventilator dependent respiratory failure
ECHO 04/04/2024: EF 10 to 15%, severe global hypokinesis, mild MR, trace TR, PAP 30 to 33 mmHg
Cardiac catheterization 05/22/2024: Nonobstructive coronary disease with normal to mildly elevated right and left-sided filling pressures with normal cardiac output
Echocardiogram 10/30/2024: Severely dilated left ventricle, severely reduced LV systolic function, global hypokinesis with ejection fraction of 5-10%, moderate to severe eccentric TR with PA pressure of 30-35 mmHg, small pericardial effusion.
LUIS ENRIQUE 01/04/2025: LVEF 10 to 15%, definite massive occlusive thrombus in left atrial appendage, mild MR, moderate to severe TR
Plan:
No complaints overnight. Still not taking p.o. medication. Continue to follow. Continue all cardiac medications intravenously for now.
Remains in rate controlled atrial fibrillation. Telemetry reviewed
Continue IV amiodarone, IV heparin and IV Lopressor until we know he is able to take p.o.'s reliably
He continues with TPN
Volume status difficult to assess. He has received quite a bit of volume the past 3 days. He is not receiving oral Lasix, will switch to IV and follow.
Replete potassium per primary service.
He has had 3 cardiac embolic events in the past 9 months felt to be due to noncompliance. Continue IV heparin and eventually restart Eliquis.
His severe LV dysfunction is likely tachycardia mediated and related to noncompliance.
Long-term plan would likely be to repeat transesophageal echo (given large occlusive thrombus in left atrial appendage)once he recovers from abdominal procedures and then make a plan regarding risk of ablation.
Progress Note - Ct Mri Technologist
Subjective
Date of Service: February 07, 2025
He denies chest pain and palpitations.
Objective
Labs:
02/07/25 05:41
02/07/25 05:41
Labs
Hgb 12.0 g/dL (13.0-18.0) L 02/07/25 05:41
Hct 37.7 % (39.0-52.0) L 02/07/25 05:41
Plt Count 185 10^3/uL (130-400) 02/07/25 05:41
PT 18.0 Sec (11.4-14.6) H 01/28/25 06:36
INR 1.46 01/28/25 06:36
APTT 52.9 Sec (23.4-35.0) H 02/07/25 05:41
Sodium 145 mmol/L (135-145) 02/07/25 05:41
Potassium 3.3 mmol/L (3.5-5.1) L 02/07/25 05:41
BUN 20 mg/dl (9-20) 02/07/25 05:41
Creatinine 0.7 mg/dL (0.7-1.3) 02/07/25 05:41
Glucose 148 mg/dl (70-99) H 02/07/25 05:41
Vital Signs and I&O:
Vital Signs
Temp Pulse Resp BP Pulse Ox
97.8 F 99 18 120/67 95
02/07/25 07:40 02/07/25 07:40 02/07/25 07:40 02/07/25 07:40 02/07/25 07:40
Vital Signs
Temp Pulse Resp BP Pulse Ox
97.8 F 99 18 120/67 95
02/07/25 07:40 02/07/25 07:40 02/07/25 07:40 02/07/25 07:40 02/07/25 07:40
Intake & Output
02/05/25 02/06/25 02/07/25 02/08/25
06:59 06:59 06:59 06:59
Intake Total 3136.0 / 3136.0 1350 / 1350 2499.4 / 2499.4
Output Total 1375 / 1375 450 / 450 1150 / 1150
Balance 1761.0 / 1761.0 900 / 900 1349.4 / 1349.4
Physical Exam
Physical Exam
General: Well developed, well nourished in NAD..
Heart: Distant heart sounds irregular
Lungs: Coarse anterior breath sounds.
Abdomen:distended.
Extremities: No clubbing, cyanosis or edema bilaterally.
Neuro: Awake and answers questions
[2025-02-07] MEDS: KCL 260 MEQ IV (09:43)
[2025-02-07] MEDS: LASIX 40 MG IV (09:46)
[2025-02-07] MEDS: LASIX TUBE (10:00)
--- NOTE | 2025-02-07 10:15 | PTCARENOTE ---
aPTT was drawn this AM at 0541 as a routine collect. Per lab it was not received till 0630. Results were not placed till 0747. aPTT was 52.9. Per protocol doctor to dose rate change. Dr. Sharma and Vascular surgery made aware at 0809. Dr. Sharma reached out
to pharmacy for rate change recommendations. Pharmacy reached out to Dr. Wilkerson for dosage recommendations. Order placed to increase rate by 100 units/hr. Rate increased from 29 ml/hr to 30 ml/ hr at 0915. Per surgery, Heparin gtt placed on hold at
1010 for possible OR today.
--- NOTE | 2025-02-07 10:18 | CM ---
Addendum entered by Alivia Martin 02/07/25 12:04:
For transfer to IMU today
Original Note:
Chart reviewed
Pt for CT of abdomen today - free air noted on abd x-ray
CM will follow for needs
Plan - anticipate snf when medically ready
[2025-02-07] MEDS: CARDIZEM IV (11:36)
[2025-02-07] MEDS: CARDIZEM 125 IV ×2 (11:43→17:49)
[2025-02-07 11:59] LABS: Glucose - Point of Care 142 mg/dl (70-99)
--- NOTE | 2025-02-07 12:42 | PTCARENOTE ---
Addendum entered by Cheryl Carreon RN 02/07/25 13:01:
Patient taken to OR via OR staff at 1300.
Original Note:
Patient returned from CT with rigors and HR in 140-150 per tele monitor. Temp 97.8 orally. Respirations 40. BP 133/85. Dr. Sharma and Mackenzie Gray PAC made aware. EKG ordered and done. Cardizem gtt ordered and started. Patient no longer having rigors.
Respirations decreased to 20/ min. Last BP at 1215 was 124/74 HR per monitor was 112. IMU transfer ordered. While waiting for IMU bed, OR called for patient. Report given to OR nurse at 1215. Awaiting OR staff to retrieve patient.
[2025-02-07 14:02] LABS: B.E. - POC -0.1 mmol/L; Glucose - POC 189 mg/dl (70-99); HCO3 - POC 27 mmol/L (21-28); Hematocrit - POC 41 % PCV (42-52); Hemodilution- POC No; Ionized Calcium - POC 1.17 mmol/L (1.15-1.33); Lactate - POC 1.96 mmol/L (0.36-0.75); O2 Saturation %Calculated-POC 98.7 % (94-98); PCO2 - POC 51 mmHg (35-48); PO2 - POC 131 mmHg (83-108); Potassium - POC 3.3 mmol/L (3.5-5.1); Sodium - POC 145 mmol/L (136-145); Specimen Type - POC Arterial; pH - POC 7.33 (7.35-7.45)
--- NOTE | 2025-02-07 16:00 | W.IMMPOSTOP ---
Addendum entered and electronically signed by Brian Wyatt MD 02/07/25 16:27:
updated mother, Keyla, over the phone; preoperatively, patient had indicated his medical proxy to be 'anyone [of my family] you can get a hold of, but my mother works' or if she is not available, his brother Jag
Original Note:
Surgical Immed Post Op Note
-
Primary Surgeon: Brain Wyatt MD
Assisting Surgeon: QUE Montenegro, QUE Whitney, QUE Gan
Pre-op Diagnosis: Pneumoperitoneum, mesenteric ischemia, SMA occlusion
Post-op Diagnosis: Small bowel perforation, mesenteric ischemia, SMA occlusion
Procedure Performed: Exploratory laparotomy, small bowel resection, lysis of adhesions, placement of ABThera wound VAC
Anesthesia Type: General
Specimen / Cultures: Jejunum (about 120 cm)
Estimated Blood Loss: 50 mL
Complications: Worsening septic shock requiring Levophed and vaso
Operative Findings: Reopened prior midline incision; omentum covering entire abdominal contents; delicately pulled omentum back, bluntly taking down adhesions from the small bowel to the omentum; discovered bowel perforation in the left abdomen
associated with ischemia of a segment of jejunum; after meticulous lysis of adhesions of entire small bowel; confirmed NGT placement within the stomach and milked small bowel contents towards the stomach and towards the perforation, which was
suctioned; patient had palpable SMA; resected obviously necrotic jejunum, about 120 cm in length; check the mesenteric arcade along the remaining small bowel and there was dopplerable signals; unable to palpate ileocolic artery; mobilized cecum and
ascending colon; ileocolic artery not palpable, but had audible Doppler signal; the ascending colon was pale but not frankly necrotic; remainder of colon was evaluated and appeared well-perfused down to the proximal rectum; throughout case, patient
had worsening pressor requirement; as remainder of small bowel appeared questionable, I left the abdomen open and placed an ABThera VAC; patient was left intubated and transferred to the ICU
--- NOTE | 2025-02-07 16:17 | OR.RPT ---
Operative Report
Operative Report
DATE OF OPERATION: 02/07/2025
SURGEON: Brian Wyatt MD
PREOPERATIVE DIAGNOSIS: Pneumoperitoneum, mesenteric ischemia, SMA occlusion
POSTOPERATIVE DIAGNOSIS: Small bowel perforation, mesenteric ischemia, SMA occlusion
OPERATION: Exploratory laparotomy, small bowel resection of 120 cm, lysis of adhesions, placement of ABThera wound VAC
ASSISTANTS:
1. Brendon Dong, EDGING SUPERVISOR
2. Julia Mendez EDGING SUPERVISOR
3. Nomi Calderón, EDGING SUPERVISOR
ANESTHESIA: General
ESTIMATED BLOOD LOSS: 50 mL
UOP: 300 mL
IVF: 2.5 L
FINDINGS:
1. Diffuse adhesions between small bowel and omentum as well as interloop adhesions requiring meticulous lysis
2. Segment of necrotic jejunum with bowel perforation; stool was seen emanating; stool contamination was largely localized and controlled, but some stool did extend around the left eliseo-abdomen; bowel necrosis began about 80 cm distal to the
ligament of Treitz; performed bowel resection of about 120 cm and left in discontinuity due to worsening septic shock
3. Significantly dilated stomach and proximal small bowel; confirmed placement of NGT with significant improvement of distention
4. Remainder of small bowel appeared perfused with patchy areas of ischemia; mesenteric arcade with good Dopplerable signals; SMA had good palpable pulse; ICA had good Dopplerable signal; ascending colon appeared pale; remainder of colon appeared
well-perfused to the proximal rectum
SPECIMENS:
1. Jejunum
DRAINS: ABThera wound VAC
COMPLICATIONS: Worsening septic shock
INDICATIONS: The patient is a 59-year-old male who initially presented with acute abdominal pain and was found to have an SMA occlusion. On 01/27/2025, he underwent exploratory laparotomy with thrombectomy of the SMA. The entire small bowel
initially appeared dusky, but perfusion seem to improve after revascularization. He was left open and taken back for a second look on 01/28. At that time, the entire bowel appeared perfused and was confirmed with dopplerable signals and SPY
angiography. Postoperatively, his course was complicated by a prolonged delay of bowel function. He had worsening distention starting yesterday. Abdominal x-rays showed dilated proximal small bowel. Today, abdominal x-rays were repeated and
showed pneumoperitoneum. A CT scan was done showing pneumoperitoneum, patent mesenteric vessels, possible bowel perforation in the proximal small bowel. Therefore, I recommended prompt return to the operating room for identification of the
perforation and control of contamination. The operation was discussed with the patient in detail, including the risks, benefits and alternatives. Risks described included, but not limited to, bleeding, infection, damage nearby structures,
anastomotic leak if created, possible ostomy, complications related to ostomy (i.e.�skin irritation, retraction, prolapse, hernia), nonsurvivable bowel injury, small bowel syndrome, open abdomen, multiple subsequent surgeries, and anesthetic risks,
including but not limited to NJ, stroke, DVT/PE, respiratory failure and . The patient understood and agreed to proceed. The operation and risks were also explained to the patient's mother, Keyla who understood well.
PROCEDURE IN DETAIL: The patient was taken to the operating room and placed on the operating table in supine position. Sequential compression devices were placed bilaterally. General anesthesia was induced and the patient was intubated without
complication. The patient was placed in lithotomy position with the bilateral arms secured to armboards and pressure points padded. Anesthesia obtained better IV access and placed an A-line. Wilkerson catheter was placed with sterile technique.
Anesthesia placed a nasogastric tube. IV Zosyn was given. The abdomen was prepped and draped in a sterile fashion. A marking pen was used to tevin out the midline. A time-out was performed verifying the correct patient, procedure, operative site,
positioning, and special equipment.
The skin bry were removed with a hemostat. The subcutaneous space was opened with blunt dissection. The fascial stitches were removed. The abdomen was reentered. The omentum was draped over the abdominal contents and was adherent to the
small bowel. The omentum was meticulously and delicately retracted over the transverse colon, bluntly lysing the adhesions. There were innumerable adhesions between loops of small bowel, which were meticulously and delicately lysed. In the left
hemiabdomen, a necrotic segment of small bowel was encountered that was densely adherent to the omentum. This adhesion was taken down. Adjacent to this, there was a bowel perforation seen with liquid succus emanating from it. This was quickly
suctioned. The surrounding small bowel was freed from the adhesions and additional spillage was immediately suctioned. This bowel perforation was sewn shut with a running 2-0 Vicryl in order to control contamination. Further adhesions from the
small bowel to the sigmoid and descending colon were freed. Another perforation was encountered just proximal to the first perforation. Again, the succus was immediately suctioned in order to minimize contamination. At this point, the omentum was
completely freed and retracted above the transverse colon. The Bookwalter retractor was set up with 4 points of retraction. The transverse colon was elevated and the SMA was evaluated. There was a palpable pulse from the SMA and the peritoneal
closure was healing well. The remainder of the proximal bowel was freed from the adhesions to the transverse colon.
The stomach was significantly dilated as well as the proximal jejunum. Anesthesia manipulated the NGT and the NGT was then palpable within the stomach, which significantly improved the distention. Enteric contents were milked from the proximal
jejunum into the stomach, which significantly improved the distention. The bowel was then run from the ligament of Treitz to the necrotic segment of jejunum containing the perforations. The bowel appeared well-perfused until about 80 cm. At this
point, there was an abrupt change from perfused bowel to poorly perfused bowel. The following 120 cm, which included the areas of perforation, appeared necrotic. I continued running the bowel distally to the cecum and freed up any additional
adhesions. There were adhesions from the terminal ileum to the right lower quadrant, which I lysed with a combination of blunt and sharp dissection. The cecum and ascending colon appeared pale. The transverse colon and remaining colon to the
proximal rectum appeared well-perfused. In order to control any additional contamination, I performed a bowel resection of the 120 cm of necrotic jejunum. I created holes in the mesentery at the proximal and distal points of concern using
electrocautery and stapled and divided using the purple load of the AHMET stapler. The mesentery was divided with a Voyant LigaSure, staying within 1 to 2 cm of the mesenteric border. The small bowel was measured with a ruler to confirm and was
passed off as specimen. The small bowel mesentery was evaluated with a Doppler machine and the remaining small bowel had good Dopplerable signals throughout. There were patchy scattered areas of questionable ischemia, but no overt necrosis. The
cecum and ascending colon appeared pale. I was unable to palpate a ileocolic artery pulse. Therefore, I mobilized the cecum and ascending colon from a lateral to medial approach, taking care to avoid injury to retroperitoneal structures. Once the
cecum and ascending colon were elevated, I identified the ileocolic pedicle and found a good dopplerable signal.
Throughout the case, I remained in communication with anesthesia, who had been indicating his increasing pressor requirement. At this time, he was on 8 mcg/min of Levophed. Due to the worsening septic shock as well as questionable areas of
perfusion, I elected to proceed with damage control principles and left the bowel in discontinuity. I washed the abdomen out with 5.5 L of warm saline until the effluent was clear. I checked hemostasis at the cut edge of mesentery and along the
small bowel and hemostasis was assured. I placed the omentum over the small bowel and placed to the inner lining of the ABThera wound VAC over the abdominal contents. I placed a blue sponge over this and secured it with the clear adhesive. I cut
a hole in the adhesive in place to the Estelita pad over this. Suction was applied and there was no leak.
At this point, the procedure was complete. The patient was left intubated and sedated. All needle, sponge and instrument counts were reported as correct. The patient tolerated the procedure well and was transferred to the ICU in critical condition
with nasogastric tube and Wilkerson in place. I instructed the ICU team to restart the heparin drip.
An EDGING SUPERVISOR was necessary during this procedure for retraction, countertraction and exploratory purposes. Julia Mendez and Nomi Calderón started the case with me. Alf through, Brendon Dong took over and Vadim left.
DICTATED BY: Brian Wyatt MD
--- NOTE | 2025-02-07 16:45 | PTCARENOTE ---
Pt rec'd from OR into ICU 3360 at approx 16:30 as direct back post op with Dr. Wyatt. Pt with small bowel perf, mesenteric ischemia, SMA occlusion per post op report. Intubated and sedated in OR, now with worsening septic shock requiring
vasopressors. B/L wrist restraints for safety. Pt arrives with amio/cardizem/propofol/levophed/TPN infusing, heparin resumed at prior rate per Dr. Wyatt instructions. Left radial A line and right nare NGT placed in OR, per orders the NGT now
attached to low continuous suction. 16 fr Wilkerson inserted in OR for crit I+Os, nicole urine output noted. ABThera wound vac placed in OR. Labs and blood cultures drawn and sent. Additional IV access needed, VAT RN paged to room and placed left
midline. Pts 2 sisters updated at bedside, questions answered. Handoff to night RN completed at bedside. Safe environment maintained.
[2025-02-07 16:46] LABS: Glucose - Point of Care 237 mg/dl (70-99)
--- NOTE | 2025-02-07 17:00 | W.PN.INTV ---
Today's Communication / Plan
Recommendations
Mechanical ventilation
Resume heparin drip
NGT to low continuous wall suction
Sedate with goal RASS 0 to -2
HR control with goal <110
Amiodarone drip
Levophed; consider changing to Zaki-Synephrine if HR continues to rise >110�120
Broad-spectrum antibiotics with Zosyn
Insert another PICC line for adequate IV access now that he is back here in ICU s/p OR
May need a CVC/TLC
Continue ICU level care for this critically ill patient
Assessment
-
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
thromboembolic occlusion of the right iliac system s/p thromboembolectomy of the right iliac system + thromboembolectomy of the right SFA, popliteal artery and profundo-femoral artery (10/2024) who presents with abdominal pain and SOB. He was in
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 In the ER he was afebrile to 98.2 �F, pulse rate 135, breathing at 12 breaths/min, BP 162/110 and saturating 97% on room air. Initial
labs showed potassium 2.9, lactate 5.2, T. bili 2.1, and proBNP 4580. CTA A/P showed thrombosis of the SMA with small bilateral pleural effusions and groundglass attenuation in the bases of the lungs. He was given 40 mg IV Lasix in the ER,
Dilaudid 0.5 mg, potassium repletion, 1 L NS 0.9% and Zofran. Vascular surgery was consulted and given his significant abdominal pain of acute onset he was consented for the OR. He underwent exploratory laparotomy with thromboembolectomy of
superior mesenteric artery and placement of an AbThera VAC. Postoperatively he returned to the ICU intubated, and Conservation Technician services consulted for additional management/recommendations. Patient was extubated and improved, and subsequently
downgraded to the IMU on 01/31. He was downgraded to telemetry on 02/04 where he has been managed. Unfortunately on 02/05 he developed a small bowel obstruction. On 02/07, repeat CT A/P showed free air in the abdomen indicating a perforated viscus.
He went to the OR for an ex lap with small bowel resection and placement of an ABThera wound VAC, and is now transferred back to the ICU intubated.
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
Assessment and plan:
#1. Small bowel perforation with mesenteric ischemia and SMA occlusion s/p ex lap with small bowel resection, lysis of adhesions and placement of ABThera wound VAC (POD #0)
- Postoperative management as per colorectal surgery
- Pain control
- Continue NGT on low continuous wall suction as his bowel is in discontinuity per colorectal surgery
- Resume heparin drip as per colorectal surgery given his SMA occlusion
- Check/trend lactate
- Trend H&H and transfuse to keep Hb >7 g/dL; also keep platelets >50 K
#2. Ventilator dependent respiratory failure
- Continue with mechanical ventilation with daily SAT/SBT if clinically appropriate
- Check ABG in 30 minutes since coming here to the ICU and make vent adjustments accordingly
- Check CXR as well
- Titrate FiO2 + PEEP to maintain SpO2 >90-94%
- Keep plateau pressure <30
- ETT suctioning as needed
- Aspiration precautions
- Lightly sedated with goal RASS 0 to -2
#3. Circulatory shock
- Likely related to sedation with septic shock in the setting of A-fib with RVR and HFrEF
- Continue with Levophed and titrate down as tolerated while keeping MAP >65
- Trend WBC and monitor for fevers
- Also CT A/P from 02/07/2025 still shows circumferential wall thickening in the distal small bowel suggestive of enteritis
#4. Acute mesenteric ischemia with SMA occlusion, likely embolic, s/p ex lap with SMA embolectomy (on 01/27/2025), followed by delayed abdominal wall closure with ex lap and partial omentectomy (on 01/28/2025)
- Resume heparin infusion as per CRC
- NG to suction as stated above, await return of bowel function
#5. Acute on Chronic heart failure with reduced ejection fraction, LVEF 10 to 15% with history of occlusive thrombus in MELISSA in the past
-Likely the source of embolic event to SMA
-Monitor input and output closely
-Diuresing well, continue IV lasix for now (lasix 40mg IV BID)
#6. Atrial fibrillation with rapid ventricular rate
- Continue amiodarone gtt
- Also on cardizem gtt
- Lopressor IV q6hr with holding paremeters
-Cardiology service on case
-Heparin drip for anticoagulation
-Switch to oral meds once able to take PO
#7. Hyperglycemia
- HbA1c 6.3 on 01/27/2025
-May need to be restarted on insulin drip
-Continue ISS q6 hours for now
#8. Abnormal urinalysis concerning for UTI
-UA on 02/05/2025 was positive for nitrites, with +1 leukocyte esterase and 6�10 urine WBC
-Currently on ceftriaxone however in setting of small bowel perforation we will change to Zosyn
Gi Prophylaxis: PPI IV
DVT ppx: Heparin gtt
Continue ICU level care for this critically ill patient.
Critical care statement: A total of 42 minutes of critical care time was provided for this patient today. This includes management of unstable vital signs, evaluation of the patient at bedside, reviewing the patient's pertinent medical records
including radiographs, microbiology, laboratory evaluations, and discussion with primary team, consultants, pharmacy, nutrition, physical therapy, case management, charge nurse, critical care nursing, and respiratory therapy.
Data:
CTA Abd/Pelvis w/wo IV contrast 01/27/2025:
Thrombosis of superior mesenteric artery branches, new since prior examination.
No bowel thickening or pneumatosis to suggest bowel ischemia.
No acute inflammatory changes within the abdomen or pelvis.
Mild diverticulosis without acute diverticulitis.
Stable fatty infiltration of liver. Stable low-attenuation right adrenal mass 1.3 cm, most consistent with benign adenoma.
Hazy attenuation in the dependent lung bases. Groundglass attenuation. Small bilateral pleural effusions. Possible mild pulmonary edema and/or atelectasis.
CT A/P w IV and oral contrast 02/07/2025:
New mild intraperitoneal free air indicating a perforated viscus. The exact location is difficult to discern, but distribution of free air greatest in the anterior mid to upper abdomen near the persistently dilated proximal small bowel loops that
again contain air-fluid levels. Long segment distal small bowel smaller in caliber with circumferential wall thickening suggestive of an enteritis.
Subjective Dataa
Subjective Data
Date of Service:
Date of Service: February 07, 2025
Chief Complaint: Conservation Technician Follow Up
Subjective:
Patient brought back to the ICU after obtaining an ex-lap with small bowel resection due to small bowel perforation with pneumoperitoneum. Currently intubated on AC/CMV 18/500/100%/5 with PIP 20 cmH2O, VTe 500 cc and breathing at 19 breaths/min.
Sedated on propofol at 20 mcg/kg/min, and currently heart rate is 110 on Cardizem at 10 mg/hr, BP via A-line: 111/58 on Levophed at 14 mcg/min. BP via NIBP: 109/69 saturating 100%.
Review of Systems
General: Unobtainable - Sedation (And intubated)
Objective Data
Data Reviewed
Vital Signs / I&O / Oxygen:
Vital Signs
Temp Pulse Resp BP Pulse Ox
97.8 F 112 22 124/74 99
02/07/25 11:00 02/07/25 12:15 02/07/25 12:15 02/07/25 12:15 02/07/25 16:42
Intake and Output
02/06/25 02/07/25 02/08/25
06:59 06:59 06:59
Intake Total 1350 / 1350 2499.4 / 2499.4
Output Total 450 / 450 1150 / 1150 775 / 775
Balance 900 / 900 1349.4 / 1349.4 -775 / -775
SaO2 [A/C] 98
SaO2 99
Nasal Cannula flow liters per 2
minute
Physical Exam
General: Respiratory Distress (negative), Chills (negative) and Sweats (negative)
HEENT: Normocephalic, Anicteric and Other (ETT in place)
Cardiovascular: Irregular Rhythm (Irregularly irregular), Peripheral Edema (negative) and Other (Tachycardic)
Respiratory: Wheeze (negative), Crackles (Bibasilar), Rhonchi (negative), Stridor (negative) and ET Tube (Mechanical breath sounds heard bilaterally)
GI: Soft, Distended (less distended ), Other (Hypoactive bowel sounds) and Other (Wound VAC on mid-abdomen)
Neurology: Tremors (negative) and Other (Sedated)
Skin: Warm, Dry, Cyanosis (negative) and Jaundice (negative)
Labs/Micro/Reports
Lab Data
02/07/25 05:41
Laboratory Results
02/07/25 02/07/25
05:41 15:15
APTT 52.9 H Cancelled
[2025-02-07] MEDS: SUBLIMAZE 50 MCG IV ×2 (17:16→21:04)
[2025-02-07 17:22] LABS: B.E. -2.8 mmol/L; HCO3 23.2 mmol/L (21-28); PCO2 44 mmHg (35-48); PO2 207 mmHg (83-108); pH 7.33 (7.35-7.45)
[2025-02-07 17:33] LABS: APTT 27.1 Sec (23.4-35.0)
[2025-02-07 17:41] LABS: ALT (SGPT) 16 U/L (0-50); AST (SGOT) 21 U/L (17-59); Albumin 1.9 g/dl (3.5-5.0); Alkaline Phosphatase 78 U/L (38-126); Blood Urea Nitrogen 24 mg/dl (9-20); Calcium 7.3 mg/dl (8.4-10.2); Carbon Dioxide 25 mmol/L (22-30); Chloride 109 mmol/L (98-107); Estimated Creatinine Clearance > 125 ml/min; Glucose 293 mg/dl (70-99); Magnesium 1.8 mg/dl (1.6-2.3); Phosphorus 3.3 mg/dl (2.5-4.5); Potassium 3.9 mmol/L (3.5-5.1); Sodium 142 mmol/L (135-145); Total Bilirubin 6.3 mg/dl (0.2-1.3); Total Protein 4.6 g/dl (6.3-8.2); Triglycerides 184 mg/dl (10-149); eGFR > 60.00
[2025-02-07] MEDS: ZOSYN IV (17:46)
[2025-02-07] MEDS: ZOSYN 50 IV ×2 (17:48→23:56)
--- NOTE | 2025-02-07 17:57 | VATNOTE ---
midline ok instead of picc for levophed on left upper arm per ANNIA New
[2025-02-07 18:05] LABS: Hemoglobin 13.2 g/dL (13.0-18.0); Mean Corp Hgb Conc. 32.2 g/dL (33.0-37.0); Mean Corpuscular Hgb 32.2 pg (27.0-31.0); Mean Platelet Volume 11.8 fL (7.4-10.4); Platelet Count 237 10^3/uL (130-400); Red Cell Dist. Width 17.4 % (11.5-14.5)
[2025-02-07] MEDS: LOPRESSOR IV (18:15)
[2025-02-07] MEDS: LASIX IV (18:15)
[2025-02-07] MEDS: NOVOLOG FLEXPEN-MODERATE RESISTANCE 5 UNITS SC (18:52)
[2025-02-07 18:53] LABS: Glucose - Point of Care 291 mg/dl (70-99)
[2025-02-07 18:59] LABS: Lactic Acid 2.5 mmol/L (0.7-2.0)
--- NOTE | 2025-02-07 20:00 | PTCARENOTE ---
transmission technician, pt intub/sedated, responds to verbal/tactile, no commands. AFib HR 79. R PICC/L midline/Mult peripherals WNL- amio, cardizem, heparin, prop, levo, TPN all infusing per work list. L rad AL WNL- leveled/zeroed. Sat 100% on MV Fi02 80%.
NGT to LIWS, small amt bile noted, flushed. Wilkerson draining adequate amt nicole yellow urine. Abd wound vac ON- small amt SS drainage noted in canister. care ongoing.
[2025-02-07] MEDS: DIPRIVAN 100 IV (21:03)
[2025-02-07] MEDS: Parenteral Nutrition, Central 1520 IV (21:06)
[2025-02-07] MEDS: LEVOPHED 250 IV (22:02)
[2025-02-07 23:56] LABS: Glucose - Point of Care 238 mg/dl (70-99)
[2025-02-07] MEDS: OFIRMEV 100 IV (23:56)
[2025-02-07] MEDS: NOVOLOG FLEXPEN-MODERATE RESISTANCE 3 UNITS SC (23:57)
--- NOTE | 2025-02-08 | PTCARENOTE ---
T101.4- BDoughertyNP aware, Ofirmev IV x 1. no further changes in assessment.
[2025-02-08] MEDS: SUBLIMAZE 50 MCG IV ×5 (01:24→21:25)
[2025-02-08 01:57] LABS: APTT 63.2 Sec (23.4-35.0)
[2025-02-08] MEDS: HEPARIN 25000 UNITS/250 ML IV ×3 (02:29→22:43)
[2025-02-08] MEDS: DIPRIVAN 100 IV ×4 (04:20→21:25)
[2025-02-08 04:38] LABS: B.E. 1.4 mmol/L; HCO3 24.9 mmol/L (21-28); PCO2 35 mmHg (35-48); PO2 167 mmHg (83-108); pH 7.46 (7.35-7.45)
[2025-02-08 04:45] LABS: Hemoglobin 12.7 g/dL (13.0-18.0); Mean Corp Hgb Conc. 32.6 g/dL (33.0-37.0); Mean Corpuscular Hgb 31.8 pg (27.0-31.0); Mean Corpuscular Volume 97.5 fL (80.0-94.0); Mean Platelet Volume 11.8 fL (7.4-10.4); O2 Therapy 60%; Platelet Count 232 10^3/uL (130-400); Red Cell Dist. Width 17.4 % (11.5-14.5)
[2025-02-08 05:11] LABS: Blood Urea Nitrogen 23 mg/dl (9-20); Calcium 7.4 mg/dl (8.4-10.2); Carbon Dioxide 24 mmol/L (22-30); Chloride 111 mmol/L (98-107); Estimated Creatinine Clearance > 125 ml/min; Glucose 243 mg/dl (70-99); Phosphorus 2.2 mg/dl (2.5-4.5); Potassium 3.7 mmol/L (3.5-5.1); Sodium 143 mmol/L (135-145); eGFR > 60.00
--- NOTE | 2025-02-08 05:30 | PTCARENOTE ---
vent alarming, pt coughing, nods head 'yes' when asked if having pain- multiple fent prn pushes t/o shift- BDoughertyNP aware- fent gtt order obtained. pt then tachy to 130s, SBP 160s, desat to 70s, not pulling volumes on vent- RT to bedside-
lavaged pt for thk white secretions- suspected mucus plug. pt gradually recovered back to stable vitals. no further changes. OB/GYN NURSE present at bedside t/o.
[2025-02-08] MEDS: LEVOPHED 250 IV (05:46)
[2025-02-08] MEDS: SUBLIMAZE 100 IV (05:49)
[2025-02-08] MEDS: ZOSYN 50 IV ×3 (05:57→17:45)
[2025-02-08 05:58] VITALS: BMI 35.0
[2025-02-08 06:11] LABS: Glucose - Point of Care 199 mg/dl (70-99)
[2025-02-08] MEDS: NOVOLOG FLEXPEN-MODERATE RESISTANCE 1 UNITS SC (06:11)
--- NOTE | 2025-02-08 07:38 | W.PN.HOSP.TC ---
Today's Communication/Plan
-
see bold
Assessment / Plan
Assessment / Plan
HPI: 59 year old male with hx dilated cardiomyopathy, EF 5-10%, afib with known LV thrombus on AC non-compliant, left lower extremity arterial occlusion due to thromboembolism 07/06 and acute limb ischemia RLE s/p thromboembolectomy 11/06 presents
to the ER with abdominal pain and shortness of breath. CT A/P showed thrombosis of the SMA s/p ex lap with thromboembolectomy of SMA and placement of an AbThera Vac 01/27/25; s/p ex lap with partial omentectomy and abdominal closure on 01/28.
Post-op course with ileus.
A/P:
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
Post-op Ileus
-appreciate vascular, CRS, Rivet Tapping Machine Operator consults
-s/p OR 01/27: thromboembolectomy of SMA, placement ABThera Vac
-s/p OR 01/28: exploratory laparotomy, mesenteric angiography, partial omentectomy, tap block, abdominal closure
-s/p IV Zosyn - completed 7 day course, s/p Levophed now off
-TPN initiated on 02/02
-02/07, CT abdomen and pelvis shows new mild intraperitoneal free air indicating a perforated viscus
-s/p OR 02/07: exploratory laparotomy, small bowel resection, lysis of adhesions, placement of ABThera wound VAC
-Hold IV heparin gtt for repeat OR today, continue NPO, TPN, IV zosyn, micafungin
-Currently on Levophed, wean as tolerated
Hypoxic Respiratory Failure status post intubation
-Appreciate milk sampler input, continue vent management as per milk sampler
Hypokalemia
Hypophosphatemia
-replete as needed
Toxic metabolic encephalopathy
-Monitor
Permanent AFIB with RVR
Left atrial appendage thrombus
-Status post Cardizem drip
-appreciate Cardiology, continue IV amiodarone drip, IV metoprolol, hold IV heparin drip for OR today
-resume Metoprolol when able to take PO
-resume Eliquis when confirm no need for further procedures
Acute on chronic HFrEF (EF 5-10%)
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
-Continue IV Lasix as per cardiology
-Trend creatinine, trend daily weights
Bacteruria
-UA on 02/05/25 with bacteuria
-Was on Rocephin, changed to Zosyn as above
Hyperthyroid--new diagnosis last admission?--on methimazole but would hold for now
-repeat TSH here WNL
PAD
Active smoker--educated on importance of cessation
DVT proph--holding IV heparin drip
Code status - Full Code
Updated brother Jag on phone 02/08
Total time spent to see the patient on the floor, examine the patient, review data and lab results, discuss treatment plan with patient, nursing staff around 51 minutes.
Physical Exam
General: Obese
HEENT: Normocephalic, Atraumatic, EOMI, MMM
Respiratory: Clear to Auscultation bilaterally
Cardiac: Normal S1/S2, tachycardic rate and irregular rhythm
GI: Soft, distended, incision dressed, +wound VAC
Extremities: No Clubbing, No Cyanosis
Psych: Intermittently agitated, frustrated
Anticipated Discharge: > 48 hours
Subjective/Interval History
-
Date of Service: February 08, 2025
Patient was intubated and sedated. +Fever
Objective Data
-
Labs:
Laboratory Results
02/08/25 02/08/25 02/08/25
01:21 04:28 08:30
WBC 11.0 H
Hgb 12.7 L
Hct 39.0
Plt Count 232
APTT 63.2 H Pending
HCO3 24.9
Sodium 143
Potassium 3.7
Chloride 111 H
Carbon Dioxide 24
BUN 23 H
Creatinine 0.8
Glucose 243 H
Calcium 7.4 L
Vital Signs:
Vital Signs
Temp Pulse Resp BP Pulse Ox
101.7 F H 102 20 139/85 98
02/08/25 03:36 02/08/25 06:30 02/08/25 06:30 02/07/25 20:00 02/08/25 06:30
I&O
02/07/25 02/08/25 02/09/25
06:59 06:59 06:59
Intake Total 2499.4 / 2499.4 2400.3 / 2400.3
Output Total 1150 / 1150 2250.0 / 2250.0
Balance 1349.4 / 1349.4 150.3 / 150.3
[2025-02-08] MEDS: PROTONIX IV 40 MG IV (07:56)
[2025-02-08] MEDS: NSS (PRESERVATIVE FREE) 10 ML IV (07:56)
[2025-02-08] MEDS: CORDARONE 518 MG IV (07:56)
--- NOTE | 2025-02-08 08:00 | PTCARENOTE ---
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 patient is intubated and sedated. Propofol and versed are hanging, CPOT 0. He has a number 8 ETT 24 at the lip positioned on right side. copius oral secretions and mouth care performed. oxygen saturation is
98%. Patient is on the monitor, afib rhythm. Amio gtt infusing at 0.5 into right PICC line. Patient also has heparin gtt infusing into right upper arm and has bilateral SCDs. He has generalized anasarca. Patient is NPO with [place] sump to low
intermittent wall suction. He has a large midline incision with wound vac applied. serosanguineous drainage noted. Wilkerson from 01/27 is draining nicole urine. TPN is infusion into other lumen of PICC line. Will review chart, continue to turn and
repostion patient. potential OR today.
--- NOTE | 2025-02-08 08:24 | W.PN.INTV ---
Today's Communication / Plan
Recommendations
Mechanical ventilation
Heparin drip
NGT to low continuous wall suction
Sedate with goal RASS 0 to -2
HR control with goal <110
Amiodarone drip
Broad-spectrum antibiotics with Zosyn
Going back to OR today
Continue ICU level care for this critically ill patient
Assessment
-
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
thromboembolic occlusion of the right iliac system s/p thromboembolectomy of the right iliac system + thromboembolectomy of the right SFA, popliteal artery and profundo-femoral artery (10/2024) who presents with abdominal pain and SOB. 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 In the ER he was afebrile to 98.2 �F, pulse rate 135, breathing at 12 breaths/min, BP 162/110 and saturating 97% on room air. Initial
labs showed potassium 2.9, lactate 5.2, T. bili 2.1, and proBNP 4580. CTA A/P showed thrombosis of the SMA with small bilateral pleural effusions and groundglass attenuation in the bases of the lungs. He was given 40 mg IV Lasix in the ER,
Dilaudid 0.5 mg, potassium repletion, 1 L NS 0.9% and Zofran. Vascular surgery was consulted and given his significant abdominal pain of acute onset he was consented for the OR. He underwent exploratory laparotomy with thromboembolectomy of
superior mesenteric artery and placement of an AbThera VAC. Postoperatively he returned to the ICU intubated, and Sap Bods Developer services consulted for additional management/recommendations. Patient was extubated and improved, and subsequently
downgraded to the IMU on 01/31. He was downgraded to telemetry on 02/04 where he has been managed. Unfortunately on 02/05 he developed a small bowel obstruction. On 02/07, repeat CT A/P showed free air in the abdomen indicating a perforated viscus.
He went to the OR for an ex lap with small bowel resection and placement of an ABThera wound VAC, and is now transferred back to the ICU intubated.
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
Assessment and plan:
#1. Small bowel perforation with mesenteric ischemia and SMA occlusion s/p ex lap with small bowel resection, lysis of adhesions and placement of ABThera wound VAC (POD #1)
- Postoperative management as per colorectal surgery
- Pain control
- Continue NGT on low continuous wall suction as his bowel is in discontinuity per colorectal surgery
- Continue heparin drip as per colorectal surgery given his SMA occlusion
- Lactate was 2 this morning to continue to trend until <2 mmol/L
- Trend H&H and transfuse to keep Hb >7 g/dL; also keep platelets >50 K
#2. Ventilator dependent respiratory failure
- Continue with mechanical ventilation with daily SAT/SBT if clinically appropriate
- Vent adjustments based on daily blood gas
- Daily CXR
- Titrate FiO2 + PEEP to maintain SpO2 >90-94%
- Keep plateau pressure <30
- ETT suctioning as needed
- Aspiration precautions
- Lightly sedated with goal RASS 0 to -2
#3. Circulatory shock
- Likely related to sedation with septic shock in the setting of A-fib with RVR and HFrEF
- Continue with Levophed and titrate down as tolerated while keeping MAP >65
- Trend WBC and monitor for fevers
- Also CT A/P from 02/07/2025 still shows circumferential wall thickening in the distal small bowel suggestive of enteritis
- Start micafungin given his bowel perf
- Exchange candelaria today given nicole colored urine coming out of candelaria on 02/08, and has been present for >7-10 days
#4. Acute mesenteric ischemia with SMA occlusion, likely embolic, s/p ex lap with SMA embolectomy (on 01/27/2025), followed by delayed abdominal wall closure with ex lap and partial omentectomy (on 01/28/2025)
- Continue heparin infusion as per CRC
- NG to suction as stated above, await return of bowel function
#5. Acute on Chronic heart failure with reduced ejection fraction, LVEF 10 to 15% with history of occlusive thrombus in MELISSA in the past
-Likely the source of embolic event to SMA
-Monitor input and output closely
-Lasix to be put on hold today - re-assess daily
#6. Atrial fibrillation with rapid ventricular rate
- Continue amiodarone gtt
- Now off cardizem gtt
- IV lopressor on hold
- Cardiology service on case
- Heparin drip for anticoagulation
- Switch to oral meds once able to take PO
#7. Hyperglycemia
- HbA1c 6.3 on 01/27/2025
- Start insulin drip given he is critically ill with glucose 243 this
#8. Abnormal urinalysis concerning for UTI
-UA on 02/05/2025 was positive for nitrites, with +1 leukocyte esterase and 6�10 urine WBC
- Ceftriaxone changed to Zosyn on 02/07/2025 in setting of small bowel perforation with sepsis
Gi Prophylaxis: PPI IV
DVT ppx: Heparin gtt
Continue ICU level care for this critically ill patient.
Critical care statement: A total of 38 minutes of critical care time was provided for this patient today. This includes management of unstable vital signs, evaluation of the patient at bedside, reviewing the patient's pertinent medical records
including radiographs, microbiology, laboratory evaluations, and discussion with primary team, consultants, pharmacy, nutrition, physical therapy, case management, charge nurse, critical care nursing, and respiratory therapy.
Data:
CTA Abd/Pelvis w/wo IV contrast 01/27/2025:
Thrombosis of superior mesenteric artery branches, new since prior examination.
No bowel thickening or pneumatosis to suggest bowel ischemia.
No acute inflammatory changes within the abdomen or pelvis.
Mild diverticulosis without acute diverticulitis.
Stable fatty infiltration of liver. Stable low-attenuation right adrenal mass 1.3 cm, most consistent with benign adenoma.
Hazy attenuation in the dependent lung bases. Groundglass attenuation. Small bilateral pleural effusions. Possible mild pulmonary edema and/or atelectasis.
CT A/P w IV and oral contrast 02/07/2025:
New mild intraperitoneal free air indicating a perforated viscus. The exact location is difficult to discern, but distribution of free air greatest in the anterior mid to upper abdomen near the persistently dilated proximal small bowel loops that
again contain air-fluid levels. Long segment distal small bowel smaller in caliber with circumferential wall thickening suggestive of an enteritis.
Subjective Dataa
Subjective Data
Date of Service:
Date of Service: February 08, 2025
Chief Complaint: Sap Bods Developer Follow Up
Subjective:
Patient seen and evaluated this morning. No acute events reported overnight. Remains intubated. Currently on Levophed at 8 mcg/min. Vent settings are 18/500/5/40% with PIP [id number], VTe 499mL and breathing at 22 breaths/min. Going back to OR
later this afternoon. On fentanyl gtt at 25mcg/min. Cardizem stopped overnight. Currently on amiodarone at 0.5 mg/min. Also on heparin drip. Abdominal wound VAC is draining serosanguineous fluid. Currently, heart rate 100, BP via A-line 109/53
and saturating 99%.
Review of Systems
General: Unobtainable - Sedation (+ Intubated)
Objective Data
Data Reviewed
Vital Signs / I&O / Oxygen:
Vital Signs
Temp Pulse Resp BP Pulse Ox
101.9 F H 94 19 139/85 99
02/08/25 08:00 02/08/25 08:30 02/08/25 08:30 02/07/25 20:00 02/08/25 08:30
Intake and Output
02/07/25 02/08/2502/09/25
06:59 06:59 06:59
Intake Total 2499.4 / 2499.4 2400.3 / 2566.1 497.4 / 497.4
Output Total 1150 / 1150 2250.0 / 2300.0 100 / 100
Balance 1349.4 / 1349.4 150.3 / 266.1 397.4 / 397.4
SaO2 [A/C] 98
SaO2 99
Nasal Cannula flow liters per 2
minute
Physical Exam
General: Respiratory Distress (negative), Chills (negative) and Sweats (negative)
HEENT: Normocephalic, Anicteric and Other (ETT in place)
Cardiovascular: Irregular Rhythm (Irregularly irregular), Peripheral Edema (negative) and Other (Tachycardic)
Respiratory: Wheeze (negative), Crackles (Bibasilar), Rhonchi (negative), Stridor (negative) and ET Tube (Mechanical breath sounds heard bilaterally)
GI: Soft, Distended (less distended ), Other (Hypoactive bowel sounds) and Other (Wound VAC on mid-abdomen)
Neurology: Tremors (negative) and Other (Sedated)
Skin: Warm, Dry, Cyanosis (negative) and Jaundice (negative)
Labs/Micro/Reports
Lab Data
02/08/25 04:28
02/08/25 04:28
Laboratory Results
02/07/25 02/07/25 02/08/25
15:15 17:13 01:21
APTT Cancelled 27.1 63.2 H
pH 7.33 L
pCO2 44
pO2 207 H
HCO3 23.2
O2 Delivery Level
02/08/25 02/08/25
04:28 08:35
APTT 86.3 H
pH 7.46 H
pCO2 35
pO2 167 H
HCO3 24.9
O2 Delivery Level 60%
--- NOTE | 2025-02-08 08:46 | PTCARENOTE ---
call placed to [facility] [place] for ofirmev orders for fever of 101.9. colorectal at bedside, plan to oreturtn to O R at 1300
[2025-02-08 09:00] LABS: APTT 86.3 Sec (23.4-35.0)
--- NOTE | 2025-02-08 09:17 | W.PN.ANS.POP ---
Anesthesia Post Operative
- Anesthesia Post Op Note
Vital Signs Stable-See Nursing Note: Yes
Airway Patent: Yes
Adequate Pain Control: Yes
Change in Mental Status: No
Current Postoperative Nausea & Vomiting: No
Anesthesia Complications: No
General Anesthetic Recall: No
Unplanned Admission: No
Post Op Hydration Adequate: Yes
[2025-02-08] MEDS: OFIRMEV 100 IV ×2 (09:27→21:56)
--- NOTE | 2025-02-08 09:31 | W.PN.CARDCBS ---
Today's Communication / Plan
-
Continue IV amiodarone and renew IV Levophed for blood pressure support in the setting of likely sepsis
Continue broad-spectrum antibiotics
Can add IV Lopressor if needed for increased rate control with A-fib
Continue IV heparin
He may need to go back to the operating room again today for further eval surgery.
Remains critically ill
Impression / Plan
-
Primary Acute Care Certified Nursing Assistant: Dr. Pickett
Primary EP: Dr Solorio
PCP: Dr Peñaloza
Patient with history of cardioembolic occlusion of left common femoral artery 06/2023, right iliac artery occlusion status post thromboembolectomy 10/29/2024. During that time was also noted to be in persistent rapid A-fib initially discovered
07/2023 with history of noncompliance with medications. Also with known low EF suspected tachycardia mediated status post cath 05/2024 with nonobstructive CAD.
He presented back to the ED 11/2024 due to generalized malaise and was noted to have a seroma of his right groin s/p I/D and wound vac. He was also found to be in decompensated heart failure with reduced ejection fraction and have atrial
fibrillation with rapid ventricular rates. Plan for LUIS ENRIQUE cardioversion but LUIS ENRIQUE 01/04/2025 showed massive occlusive thrombus in left atrial appendage. Most recently, presented on 01/27/2025 with acute onset abdominal pain found to have acute
mesenteric ischemia with SMA occlusion, went to OR for exploratory laparotomy and SMA thrombectomy. Postop shock with metabolic/lactic acidosis, on Levophed and intubated. Cardiology consulted for management of atrial fibrillation and heart failure
Assessment:
Acute mesenteric ischemia with SMA occlusion, status post exploratory lap and SMA thrombectomy 01/27/2025 and redo OR 02/07/25
Acute hypoxemic respiratory failure
Shock with metabolic/lactic acidosis
Right groin seroma
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
Persistent atrial fibrillation, first discovered July 2023
Non-[place] myocardial injury
Chronic OAC with eliquis
Left atrial appendage thrombus by LUIS ENRIQUE 12/2024
Chronic HFrEF
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
NSVT
Hyperthyroidism
Noncompliance
Depression
History of ETOH and tobacco abuse
Obesity
Ventilator dependent respiratory failure
ECHO 04/04/2024: EF 10 to 15%, severe global hypokinesis, mild MR, trace TR, PAP 30 to 33 mmHg
Cardiac catheterization 05/22/2024: Nonobstructive coronary disease with normal to mildly elevated right and left-sided filling pressures with normal cardiac output
Echocardiogram 10/30/2024: Severely dilated left ventricle, severely reduced LV systolic function, global hypokinesis with ejection fraction of 5-10%, moderate to severe eccentric TR with PA pressure of 30-35 mmHg, small pericardial effusion.
LUIS ENRIQUE 01/04/2025: LVEF 10 to 15%, definite massive occlusive thrombus in left atrial appendage, mild MR, moderate to severe TR
Plan:
Unfortunately he had to go back to the operating room yesterday due to free air in his abdomen and perforated viscus. He had a small bowel resection and placement of a wound VAC.
He remains on Levophed for blood pressure support. He remains septic and critically ill. Continue IV heparin with known thromboembolic event.
His ventricular rates are not optimally controlled. For now I will continue IV amiodarone. Could give little bursts of IV Lopressor if needed as well.
Hemoglobin stable at 12.7. Creatinine is normal at 0.8
His volume status appears okay although we will need to continue to follow. Likely will need more IV Lasix over the next 24 to 48 hours.
Unfortunately he may need to go back to the operating room again today.
He has had 3 cardiac embolic events in the past 9 months felt to be due to noncompliance. Continue IV heparin and eventually restart Eliquis.
His severe LV dysfunction is likely tachycardia mediated and related to noncompliance.
Long-term plan would likely be to repeat transesophageal echo (given large occlusive thrombus in left atrial appendage) if he recovers from abdominal procedures and then make a plan regarding risk of ablation.
Critical care time 33 minutes
Progress Note - Acute Care Certified Nursing Assistant
Subjective
Date of Service: February 08, 2025
He is febrile remains on ventilator. Remains on Levophed for blood pressure support. A-fib remains with mildly elevated rates.
Objective
Labs:
02/08/25 04:28
02/08/25 04:28
Labs
Hgb 12.7 g/dL (13.0-18.0) L 02/08/25 04:28
Hct 39.0 % (39.0-52.0) 02/08/25 04:28
Plt Count 232 10^3/uL (130-400) 02/08/25 04:28
PT 18.0 Sec (11.4-14.6) H 01/28/25 06:36
INR 1.46 01/28/25 06:36
APTT 86.3 Sec (23.4-35.0) H 02/08/25 08:35
Sodium 143 mmol/L (135-145) 02/08/25 04:28
Potassium 3.7 mmol/L (3.5-5.1) 02/08/25 04:28
BUN 23 mg/dl (9-20) H 02/08/25 04:28
Creatinine 0.8 mg/dL (0.7-1.3) 02/08/25 04:28
Glucose 243 mg/dl (70-99) H 02/08/25 04:28
Vital Signs and I&O:
Vital Signs
Temp Pulse Resp BP Pulse Ox
101.9 F H 94 19 139/85 99
02/08/25 08:00 02/08/25 08:30 02/08/25 08:30 02/07/25 20:00 02/08/25 08:30
Vital Signs
Temp Pulse Resp BP Pulse Ox
101.9 F H 94 19 139/85 99
02/08/25 08:00 02/08/25 08:30 02/08/25 08:30 02/07/25 20:00 02/08/25 08:30
Intake & Output
02/06/25 02/07/25 02/08/25 02/09/25
06:59 06:59 06:59 06:59
Intake Total 1350 / 1350 2499.4 / 2499.4 2400.3 / 2566.1 331.6 / 331.6
Output Total 450 / 450 1150 / 1150 2250.0 / 2300.0 100 / 100
Balance 900 / 900 1349.4 / 1349.4 150.3 / 266.1 231.6 / 231.6
Physical Exam
Physical Exam
GEN: No distress, intubated and sedated
HEENT: supple, anicteric, mmm, ET
LUNGS: CTA, no wheezes/rales
CV: Irreg, S1/S2, 1/6 syst LSB, no gallop
ABD: soft, BS dec
EXT: No edema
NEURO: Gross non-focal
SKIN: No rash
[2025-02-08] MEDS: POTASSIUM PHOSPHATE 104.5455 MEQ IV (10:00)
--- NOTE | 2025-02-08 10:19 | PTCARENOTE ---
exchanged patient's candelaria
[2025-02-08] MEDS: LEVOPHED 258 MG IV (10:59)
[2025-02-08 11:04] LABS: Glucose - Point of Care 174 mg/dl (70-99)
[2025-02-08 11:58] LABS: Glucose - Point of Care 148 mg/dl (70-99)
[2025-02-08 12:04] VITALS: BP 114/49
[2025-02-08] MEDS: MYCAMINE 105 MG IV (12:18)
--- NOTE | 2025-02-08 12:21 | PTCARENOTE ---
Heparin gtt on hold per order this AM. patient due to go to OR at 1300.
[2025-02-08 12:42] VITALS: BP 136/88
--- NOTE | 2025-02-08 12:45 | CM ---
CM following re: discharge planning.
Reviewed pt's chart, met with pt.
Pt is POD#1 s/p Small bowel perforation with mesenteric ischemia and SMA occlusion s/p ex lap with small bowel resection, lysis of adhesions and placement of ABThera wound VAC . Per Rounds meeting pt intubated yesterday, remains intubated,
continue supportive care.
Pt lives in an apartment/rented room, , 2nd floor, 2FF of steps to get to his apartment. Pt has no children, has 4 brothers, 3 sisters and a mother, one brother lives with mother and brother Jag lives in [facility] [place]. Pt has supportive friend
Angie. 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
D/C plan: [facility] when medically stable.
CM will follow with discharge plan updates as hospitalization progress
[2025-02-08 13:29] LABS: Glucose - Point of Care 110 mg/dl (70-99)
--- NOTE | 2025-02-08 13:34 | W.PN.CRS1 ---
Today's Communication / Plan
-
as below
Assessment/Plan
-
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
POD 1 exlap, SBR of ~120cm, left in discontinuity and open due to worsening septic shock, placed abthera vac
POD 11 takeback, abdominal closure�I will well-perfused, confirmed on mesenteric angiography
POD 12 ex lap SMA thromboembolectomy by Dr. Wilkerson; intraoperative consult for mesenteric ischemia without overt signs of necrosis
Tmax 101.9, HR 100-110, Levo 12,
WBC 11.0 from 8.3, Hb stable, CR 0.7, lac 2.0 (from 2.5)
-- Mesenteric ischemia with perforation and 120cm of necrotic bowel
-Will take back to OR today due to uptrending levo and fevers
-Spoke with brother, Jag, as Keyla is not available today (she was just discharged after a heartattack); explained r/b/a, including risk of additional bowel resection and , and brother understood well and consented
-Appreciate ICU
-Cont vent
-Cont fent/prop
-Wean pressors as able, MAP >65
�Continue n.p.o. with NGT
� Continue TPN until tolerating solid food
�Continue hep drip, hold on-call to OR
� Appreciate hospitalist
Subjective Data
Procedure
01/27/2025- Ex lap, SMA embolectomy
Subjective Data
Date of Service: February 08, 2025
Levo was at 18 last night, trended down to 8, is now back at 12. Had a fever as well. Making good urine
Objective Data
-
Vital Signs
Temp Pulse Resp BP Pulse Ox
101.4 F H 104 20 136/88 96
02/08/25 11:19 02/08/25 12:42 02/08/25 12:42 02/08/25 12:42 02/08/25 12:42
Intake & Output
02/07/25 02/08/25 02/09/25
06:59 06:59 06:59
Intake Total 2499.4 / 2499.4 2400.3 / 2566.1 1045.1 / 1045.1
Output Total 1150 / 1150 2250.0 / 2300.0 250 / 250
Balance 1349.4 / 1349.4 150.3 / 266.1 795.1 / 795.1
Intake:
IV fluids (Total) 502 / 502 1408.3 / 1511.1 647.6 / 647.6
Amiodarone 233.8 / 250.5 116.9 / 116.9
Cardizem 60 / 60
Fentanyl 0 / 2.5 17.5 / 17.5
Heparin 336 / 368 192 / 192
Insulin 4.7 / 4.7
Levophed 562.5 / 592.5 172.5 / 172.5
Propofol 216.0 / 237.6 144.0 / 144.0
IV piggybacks 548.4 / 548.4 50 / 50 52.5 / 52.5
TPN/PPN 1449 / 1449 882 / 945 315 / 315
Amount instilled into GI Tube ( 60 60 30 / 30
Total)
[place] Sump 60 / 60 30 / 30
Output:
Drain Output (Total) 300 / 300
Abdomen Wound Vac 300 / 300
Gastrointestinal tube output ( 50 / 50
Total)
[place] Sump 50 / 50
Urine, Wilkerson 1250 / 1300 250 / 250
Urine, Voided 1150 / 1150 650.0 / 650.0
Lab Results
02/08/25 04:28
02/08/25 04:28
Physical Exam
-
General: No Acute Distress and Other (sedated and intubated)
HEENT: Grossly Normal
Abdomen: Soft, Distended (mildly distended), Tender (appropriately tender) and Other (midline vac functioning)
Skin: Warm and Dry
[2025-02-08 13:48] LABS: Glucose - Point of Care 120 mg/dl (70-99)
[2025-02-08 15:01] LABS: B.E. - POC 1.3 mmol/L; Glucose - POC 158 mg/dl (70-99); HCO3 - POC 29 mmol/L (21-28); Hematocrit - POC 43 % PCV (42-52); Hemodilution- POC Yes; Hemoglobin Calculated - POC 14.7; Ionized Calcium - POC 1.16 mmol/L (1.15-1.33); Lactate - POC 0.87 mmol/L (0.36-0.75); O2 Saturation %Calculated-POC 99.8 % (94-98); PCO2 - POC 55 mmHg (35-48); PO2 - POC 263 mmHg (83-108); Sodium - POC 145 mmol/L (136-145); Specimen Type - POC Arterial; pH - POC 7.33 (7.35-7.45)
--- NOTE | 2025-02-08 15:36 | W.IMMPOSTOP ---
Addendum entered and electronically signed by Brian Wyatt MD 02/08/25 17:12:
spoke with brother, Jag, over the phone
Original Note:
Surgical Immed Post Op Note
-
Primary Surgeon: Brian Wyatt MD
Assisting Surgeon: QUE Montenegro
Pre-op Diagnosis: Mesenteric ischemia, open abdomen, SMA occlusion
Post-op Diagnosis: Mesenteric ischemia, open abdomen, SMA occlusion
Procedure Performed: Exploratory laparotomy, abdominal washout, mesenteric angiography with spy, placement of ABThera VAC
Anesthesia Type: General
Specimen / Cultures: None
Estimated Blood Loss: 5 mL
Complications: None
Operative Findings: Liver appeared more dark/dusky than yesterday but perfused; measured proximal segment of small bowel to staple line and measured about 50 cm, which appeared well-perfused; the distal segment appeared perfused but with patchy
areas of edema and duskiness within the first 100 cm; beyond this point, the bowel appeared perfused and I measured an additional 130 cm to the ileocecal valve; the cecum, ascending colon and hepatic flexure appeared pale with fibrinous exudate, but
without elizabeth necrosis; the transverse colon and splenic flexure appeared well-perfused; the descending, sigmoid and proximal rectum appeared pale but perfused; the SMA had a good Doppler signal throughout its length; the ELLIOTT had a good palpable
pulse; the ileocolic artery had a good dopplerable signal; the mesenteric arcade of the remaining bowel had a good Doppler signal; performed mesenteric angiography with ICG using spy and the entire bowel and colon appeared well-perfused; the patient
remained stable on levo from 8 to 10 mcg/min; left the patient in discontinuity and placed an ABThera wound VAC
�Keep NGT to low continuous suction; NGT must remain in place as bowel is in discontinuity
� Continue IV Zosyn
� Wean pressors; continue vent
� Trend LFTs and lactate
� Will plan for takeback in 48 to 72 hours
[2025-02-08 15:38] VITALS: BP 111/84
--- NOTE | 2025-02-08 15:43 | PN.DE.MGMTRT ---
Insulin Management
- -
02/08/2025: Diabetes Management Follow up
Patient admitted 01/27 with abdominal pain and SOB PMH: A-fib, hyperthyroidism, chronic HFrEF, LLE arterial occlusion due to thromboembolism (06/2023), h/o acute limb ischemia of RLE with thromboembolic occlusion of the right iliac system s/p
thromboembolectomy of the right iliac system + thromboembolectomy of the right SFA, popliteal artery. Prior to admission was taking Jardiance 10mg daily. A1C 6.3%, Cr 1.1, eGFR >60.
CTA showed thrombosis of the SMA s/p ex lap with thromboembolectomy of SMA and placement of an AbThera Vac 01/27/25. Postoperatively he was started on the glycemic protocol due to hyperglycemia.
Pt is POD 1 s/p exploratory laparotomy with small bowel resection.
POD# 9 exploratory laparotomy, mesenteric angiography, partial omentectomy, tap block, abdominal closure
Remains NPO, intubated on ventilator, critically ill.
Glucose elevated overnight, as high as 291, with moderate corrective insulin Q6 hours.
Discussed with nurse, glycemic protocol to resume at this time.
Will cont to follow.
Discussed with Nurse.
Diabetes History
- -
Type of Diabetes: 2
Pre-Admission Diabetes Regimen
02/07/25 02/08/25
17:13 04:28
Creatinine 0.8 0.8
Lab Results
Hemoglobin A1c 6.3 % (4.0-5.6) H 01/27/25 14:42
Insulin Pump Settings
IP Diabetes Regimen
02/07/25 02/07/25 02/07/25
16:43 17:13 18:42
Glucose 293 H
POC Glucose 237 H 291 H
02/07/25 02/08/25 02/08/25
23:55 04:28 06:10
Glucose 243 H
POC Glucose 238 H 199 H
02/08/25 02/08/2525
10:44 11:47 13:00
Glucose
POC Glucose 174 H 148 H 110 H
02/08/25
13:47
Glucose
POC Glucose 120 H
Meal type: Breakfast
Patient Education
--- NOTE | 2025-02-08 15:45 | OR.RPT ---
Operative Report
Operative Report
DATE OF OPERATION: 02/08/2025
SURGEON: Brian Wyatt MD
PREOPERATIVE DIAGNOSIS: Mesenteric ischemia, open abdomen, SMA occlusion, septic shock
POSTOPERATIVE DIAGNOSIS: Mesenteric ischemia, open abdomen, SMA occlusion, septic shock
OPERATION: Exploratory laparotomy, abdominal washout, mesenteric angiography with SPY technology, placement of ABThera VAC
ASSISTANTS:
1. QUE [place]
ANESTHESIA: General
ESTIMATED BLOOD LOSS: 5 mL
FINDINGS:
1. Liver appeared darker than yesterday, but perfused
2. Stomach and duodenum appeared well-perfused; measured from ligament of Treitz to proximal staple line, which measured about 50 cm in length and was well-perfused without ischemia or necrosis
3. The first 100 cm of the distal segment of bowel starting from the distal staple line appeared perfused but with patchy areas of ischemia and fibrinous exudate; the bowel was seen to peristalsis and the mesentery had dopplerable signals; the
remaining ileum measured about 130 cm and was well-perfused without concern for ischemia or necrosis
4. The cecum, ascending colon and hepatic flexure appeared pale with fibrinous exudate; the transverse colon and splenic flexure appeared well-perfused; the descending colon, sigmoid colon and proximal rectum appeared pale
5. There was a good dopplerable signal at the SMA throughout its length and ileocolic artery; the ELLIOTT pulse was palpable
6. Performed mesenteric angiography with SPY and entire length of bowel appeared well-perfused
SPECIMENS:
1. None
DRAINS: None
COMPLICATIONS: No immediate complications.
INDICATIONS: The patient is a 59-year-old male who initially presented with SMA occlusion and underwent ex lap and SMA thromboembolectomy with vascular. At that time, the bowel appeared dusky and he was left open with an ABThera VAC. He was taken
back the next day and his bowel was well-perfused, so the abdomen was closed. He did well postoperatively, but had a delay of bowel function. 2 to 3 days ago, he had worsening abdominal pain and x-rays yesterday showed free air. He was taken back
for exploratory laparotomy and was found to have a 120 cm necrotic segment of small bowel with perforations. This was resected. Due to his septic shock, he was left in discontinuity and left with an open abdomen. Today, his pressor requirement
had improved, but then started to trend upwards. He additionally started having fevers. Therefore, I recommended a takeback for evaluation of the abdominal contents to rule out additional necrotic bowel. The operation was discussed with the
patient's brother (his mother was unavailable due to her health) in detail, including the risks, benefits and alternatives. Risks described included, but not limited to, bleeding, infection, anastomotic complication (if created), damage to nearby
structures, need for additional resection, need for open abdomen and subsequent surgeries, need for ostomy, short-bowel syndrome, discovery of nonsurvivable injury and anesthetic risks, including but not limited to [place], stroke, DVT/PE, respiratory
failure and . The patient's brother understood and agreed to proceed. Consent was taken over the phone and witnessed by the floor nurse.
PROCEDURE IN DETAIL: The patient was taken to the operating room and placed on the operating table in supine position. Sequential compression devices were placed bilaterally. General anesthesia was induced. He was already intubated. The patient was
placed in supine position with bilateral arms secured in extended position. Pressure points were padded. Wilkerson catheter and NG tube were in place previously. Patient recently received antibiotics. The outer layer of the ABThera VAC was removed.
The abdomen was prepped with Betadine and draped in the usual sterile fashion. A time-out was performed verifying the correct patient, procedure, operative site, positioning, and special equipment.
Upon entry, there was noted to be serous ascites. The liver appeared darker than yesterday concerning for some ischemic injury, but overall was perfused. I retracted the omentum over the transverse colon and the bowel was evaluated. The proximal
segment from the ligament of Treitz to the proximal staple line appeared well-perfused without concern for ischemia. This was measured to be about 50 cm in length (on the operative report from yesterday, this was noted to be about 80cm, but that
was visually estimated; today, I made a more precise measurement). The transverse colon was elevated and the SMA was interrogated. There was a good dopplerable signal from the SMA throughout its length. The distal segment of bowel was run from
the distal staple line to the ligament of Treves. The first 100 cm appeared perfused but with scattered patchy areas of ischemia and fibrinous exudate. The mesenteric arcades were evaluated with a Doppler and had good audible signals. The cecum,
ascending colon and hepatic flexure remained pale with fibrinous exudate, possibly paler than it appeared yesterday, but without elizabeth necrosis. The transverse colon and splenic flexure appeared well-perfused without ischemia or necrosis. The
descending colon, sigmoid colon and proximal rectum today appeared slightly pale but without any evidence of ischemia or necrosis. I placed a Bookwalter retractor with 4 points of retraction. I raised the sigmoid colon and was able to palpate the
ELLIOTT, which had a good palpable pulse. I was able to hear an audible dopplerable signal from the ileocolic artery. As the ascending colon appeared questionable and the first portion of the distal segment of small bowel appeared questionable, I
proceeded with mesenteric angiography with SPY. The entire length of the remaining small bowel and colon appeared well-perfused on SPY. Therefore, I elected to avoid any additional bowel resection. I washed the abdomen out with 5 L of warm
saline. After speaking with anesthesia, he still remained on Levophed at 8 to 10 mcg/min. Therefore, I left the bowel in discontinuity and placed an ABThera wound VAC. I retracted the omentum to cover the abdominal contents. I cut to the inner
layer of the ABThera VAC to size and covered the abdominal contents. The blue sponge and clear adhesive were placed and attached to suction.
At this point, the procedure was complete. The patient was stable throughout the surgery. All needle, sponge and instrument counts were reported as correct. The patient tolerated the procedure well and was transferred to the ICU in critical
condition with NG tube and Wilkerson in place.
DICTATED BY: Brian Wyatt MD
[2025-02-08 16:03] LABS: Glucose - Point of Care 140 mg/dl (70-99)
--- NOTE | 2025-02-08 16:26 | PTCARENOTE ---
Received patient back from OR. patient still has open incision with wound vac. remains on all mediations. will speak to physician on when to restart heparin gtt.
--- NOTE | 2025-02-08 16:40 | PTCARENOTE ---
Per luanne Snell to resume heparin gtt at prior rate.
[2025-02-08 17:14] LABS: Glucose - Point of Care 146 mg/dl (70-99)
[2025-02-08 19:01] LABS: Glucose - Point of Care 146 mg/dl (70-99)
[2025-02-08] MEDS: Parenteral Nutrition, Central 1230 IV (20:37)
[2025-02-08 21:16] LABS: Glucose - Point of Care 103 mg/dl (70-99)
--- NOTE | 2025-02-08 22:26 | PTCARENOTE ---
Assumed care of pt at 1900. Received pt intubated, #8.0 ETT 25cm at [facility], AC 18/500/40/5. Pt sedated on Propofol and Fentanyl, also on insulin per CC glycemic protocol, Heparin, Amiodarone, Levophed, and TPN infusions. See med titration flowsheets
for details. Abd currently open with wound vac in place, patent and draining serous drainage. NGT to right nare (75cm) to LIWS draining dark green drainage. See nursing shift assessment flowsheet for full physical assessment details. Pt febrile,
medicated with Ofirmev, see EMAR for details.
[2025-02-08 23:11] LABS: Glucose - Point of Care 108 mg/dl (70-99)
[2025-02-09] MEDS: ZOSYN 50 IV ×5 (00:12→23:57)
--- NOTE | 2025-02-09 00:27 | PTCARENOTE ---
Assessment unchanged. Remains on same drips and same vent settings. Heparin drip therapeutic with 2300 PTT. AFib 110s on monitor.
[2025-02-09] MEDS: SUBLIMAZE 50 MCG IV ×4 (00:40→12:21)
[2025-02-09 01:16] LABS: Glucose - Point of Care 101 mg/dl (70-99)
[2025-02-09] MEDS: DIPRIVAN 100 IV ×4 (03:09→22:01)
[2025-02-09 03:25] LABS: Glucose - Point of Care 106 mg/dl (70-99)
[2025-02-09] MEDS: OFIRMEV 100 IV ×4 (04:10→22:01)
[2025-02-09 04:11] LABS: B.E. 1.3 mmol/L; HCO3 25.9 mmol/L (21-28); O2 Saturation % 99.6 % (94-98); PCO2 40 mmHg (35-48); PO2 150 mmHg (83-108); pH 7.42 (7.35-7.45)
[2025-02-09 04:12] LABS: O2 Therapy 40%
[2025-02-09 04:30] LABS: Hematocrit 34.8 % (39.0-52.0); Hemoglobin 11.5 g/dL (13.0-18.0); Mean Corpuscular Volume 96.9 fL (80.0-94.0); Mean Platelet Volume 12.2 fL (7.4-10.4); Platelet Count 210 10^3/uL (130-400); Red Blood Cell Count 3.59 10^6/uL (4.70-6.10); Red Cell Dist. Width 17.3 % (11.5-14.5); White Blood Cell Count 11.9 10^3/uL (4.8-10.8)
[2025-02-09 04:49] VITALS: BMI 35.3
[2025-02-09 04:54] LABS: Lactic Acid 1.1 mmol/L (0.7-2.0)
[2025-02-09 04:58] LABS: Blood Urea Nitrogen 36 mg/dl (9-20); Calcium 7.6 mg/dl (8.4-10.2); Carbon Dioxide 26 mmol/L (22-30); Chloride 111 mmol/L (98-107); Estimated Creatinine Clearance 95 ml/min; Glucose 118 mg/dl (70-99); Magnesium 2.2 mg/dl (1.6-2.3); Phosphorus 2.9 mg/dl (2.5-4.5); Potassium 4.2 mmol/L (3.5-5.1); Sodium 142 mmol/L (135-145); eGFR > 60.00
[2025-02-09 05:07] VITALS: BP 134/114
[2025-02-09 05:23] LABS: Glucose - Point of Care 110 mg/dl (70-99)
[2025-02-09 05:32] LABS: APTT 80.3 Sec (23.4-35.0)
[2025-02-09] MEDS: HEPARIN 25000 UNITS/250 ML IV ×3 (06:15→23:05)
[2025-02-09] MEDS: SUBLIMAZE 100 IV ×2 (06:15→21:32)
--- NOTE | 2025-02-09 06:39 | PTCARENOTE ---
0400 assessment unchanged. Remains on same drips, see med titration flowsheets for details, Levophed has been titrated slightly up during the shift as well as Fentanyl. PTT now therapeutic x2, next PTT due 3/30 AM. Pt remains febrile, received
another dose of Ofirmev (see EMAR) and is now scheduled x4 doses, temp has started to slightly trend down from the T-max of 102.9. Full bath done both with soap and water and CHG cloths, linens and gown changed.
[2025-02-09 07:40] LABS: Glucose - Point of Care 114 mg/dl (70-99)
--- NOTE | 2025-02-09 07:46 | W.PN.INTV ---
Today's Communication / Plan
Recommendations
Mechanical ventilation
Heparin drip
NGT to low continuous wall suction
Sedate with goal RASS 0 to -2
HR control with goal <110
Amiodarone drip
Broad-spectrum antibiotics with Zosyn + micafungin
Going back to OR this Tuesday (02/11/2025)
Continue ICU level care for this critically ill patient
Assessment
-
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
thromboembolic occlusion of the right iliac system s/p thromboembolectomy of the right iliac system + thromboembolectomy of the right SFA, popliteal artery and profundo-femoral artery (10/2024) who presents with abdominal pain and SOB. He was in
his usual state of health [employer] when he developed sudden periumbilical abdominal pain without nausea or vomiting. In the ER he was afebrile to 98.2 �F, pulse rate 135, breathing at 12 breaths/min, BP 162/110 and saturating 97% on room air. Initial
labs showed potassium 2.9, lactate 5.2, T. bili 2.1, and proBNP 4580. CTA A/P showed thrombosis of the SMA with small bilateral pleural effusions and groundglass attenuation in the bases of the lungs. He was given 40 mg IV Lasix in the ER,
Dilaudid 0.5 mg, potassium repletion, 1 L NS 0.9% and Zofran. Vascular surgery was consulted and given his significant abdominal pain of acute onset he was consented for the OR. He underwent exploratory laparotomy with thromboembolectomy of
superior mesenteric artery and placement of an AbThera VAC. Postoperatively he returned to the ICU intubated, and Digital Marketing Assistant services consulted for additional management/recommendations. Patient was extubated and improved, and subsequently
downgraded to the IMU on 01/31. He was downgraded to telemetry on 02/04 where he has been managed. Unfortunately on 02/05 he developed a small bowel obstruction. On 02/07, repeat CT A/P showed free air in the abdomen indicating a perforated viscus.
He went to the OR for an ex lap with small bowel resection and placement of an ABThera wound VAC, and is now transferred back to the ICU intubated.
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
Assessment and plan:
#1. Small bowel perforation with mesenteric ischemia and SMA occlusion s/p ex lap with small bowel resection, lysis of adhesions and placement of ABThera wound VAC (POD #2)
- Patient did go back to the OR on 02/08/2025 for an ex lap with abdominal washout and mesenteric angiography (no cultures sent)
- Postoperative management as per colorectal surgery
- Pain control
- Continue NGT on low continuous wall suction as his bowel is in discontinuity per colorectal surgery
- Continue heparin drip as per colorectal surgery given his SMA occlusion
- Lactate is now 1.1 this AM --> no need to continue trending
- Trend H&H and transfuse to keep Hb >7 g/dL; also keep platelets >50 K
#2. Ventilator dependent respiratory failure
- Continue with mechanical ventilation with daily SAT/SBT if clinically appropriate --> of note he is going back to OR on Tuesday, hence would rather wait until after OR to do SAT/SBT given he will be re-intubated for this procedure
- Vent adjustments based on daily blood gas
- Daily CXR
- Titrate FiO2 + PEEP to maintain SpO2 >90-94%
- Keep plateau pressure <30
- ETT suctioning as needed
- Aspiration precautions
- Lightly sedated with goal RASS 0 to -2
#3. Circulatory shock
- Likely related to sedation with septic shock in the setting of A-fib with RVR and HFrEF
- Continue with Levophed and titrate down as tolerated while keeping MAP >65
- Trend WBC and monitor for fevers
- Also CT A/P from 02/07/2025 still shows circumferential wall thickening in the distal small bowel suggestive of enteritis
- Started micafungin on 02/08 given his bowel perf
- Exchanged candelaria on 02/08 given nicole colored urine coming out of candelaria on 02/08, and has been present for >7-10 days
#4. Acute mesenteric ischemia with SMA occlusion, likely embolic, s/p ex lap with SMA embolectomy (on 01/27/2025), followed by delayed abdominal wall closure with ex lap and partial omentectomy (on 01/28/2025)
- Continue heparin infusion as per CRC
- NG to suction as stated above, await return of bowel function
#5. Acute on Chronic heart failure with reduced ejection fraction, LVEF 10 to 15% with history of occlusive thrombus in MELISSA in the past
-Likely the source of embolic event to SMA
-Monitor input and output closely
-Lasix now on hold (last dose 02/07) - re-assess daily
#6. Atrial fibrillation with rapid ventricular rate
- Continue amiodarone gtt
- Now off cardizem gtt
- IV lopressor on hold
- Cardiology service on case
- Heparin drip for anticoagulation
- Switch to oral meds once able to take PO
#7. Hyperglycemia
- HbA1c 6.3 on 01/27/2025
- Started insulin drip on 02/08 given he is critically ill with hyperglycemia
#8. Abnormal urinalysis concerning for UTI
- UA on 02/05/2025 was positive for nitrites, with +1 leukocyte esterase and 6�10 urine WBC
- Ceftriaxone changed to Zosyn on 02/07/2025 in setting of small bowel perforation with sepsis
Gi Prophylaxis: PPI IV
DVT ppx: Heparin gtt
Continue ICU level care for this critically ill patient.
Critical care statement: A total of 41 minutes of critical care time was provided for this patient today. This includes management of unstable vital signs, evaluation of the patient at bedside, reviewing the patient's pertinent medical records
including radiographs, microbiology, laboratory evaluations, and discussion with primary team, consultants, pharmacy, nutrition, physical therapy, case management, charge nurse, critical care nursing, and respiratory therapy.
Data:
CTA Abd/Pelvis w/wo IV contrast 01/27/2025:
Thrombosis of superior mesenteric artery branches, new since prior examination.
No bowel thickening or pneumatosis to suggest bowel ischemia.
No acute inflammatory changes within the abdomen or pelvis.
Mild diverticulosis without acute diverticulitis.
Stable fatty infiltration of liver. Stable low-attenuation right adrenal mass 1.3 cm, most consistent with benign adenoma.
Hazy attenuation in the dependent lung bases. Groundglass attenuation. Small bilateral pleural effusions. Possible mild pulmonary edema and/or atelectasis.
CT A/P w IV and oral contrast 02/07/2025:
New mild intraperitoneal free air indicating a perforated viscus. The exact location is difficult to discern, but distribution of free air greatest in the anterior mid to upper abdomen near the persistently dilated proximal small bowel loops that
again contain air-fluid levels. Long segment distal small bowel smaller in caliber with circumferential wall thickening suggestive of an enteritis.
Subjective Dataa
Subjective Data
Date of Service:
Date of Service: February 09, 2025
Chief Complaint: Digital Marketing Assistant Follow Up
Subjective:
Patient was seen and evaluated today at bedside. Went to the OR yesterday afternoon for an ex-lap with abdominal washout. He is currently intubated on AC/CMV at 18/500/5/40%, with PIP: 20 cmH2O, VTe 484 cc and breathing at 18 breaths/minute.
Remains on heparin drip, insulin drip (1.2 units/hr), fentanyl drip at 75 mcg/hr, propofol at 20 mcg/kg/min, Levophed at 6 mcg/min and amiodarone at 0.5 mg/min. He appears comfortable in NAD.
Review of Systems
General: Unobtainable - Sedation (Intubated)
Objective Data
Data Reviewed
Vital Signs / I&O / Oxygen:
Vital Signs
Temp Pulse Resp BP Pulse Ox
101.8 F H 95 18 134/114 99
02/09/25 07:23 02/09/25 06:30 02/09/25 06:30 02/09/25 05:07 02/09/25 06:30
Intake and Output
02/08/25 02/09/25 02/10/25
06:59 06:59 06:59
Intake Total 2400.3 / 2566.1 3564.2 / 3564.2
Output Total 2250.0 / 2300.0 2170 / 2170
Balance 150.3 / 266.1 1394.2 / 1394.2
SaO2 [A/C] 98
SaO2 99
Nasal Cannula flow liters per 2
minute
Physical Exam
General: Respiratory Distress (negative), Comfortable, Chills (negative) and Sweats (negative)
HEENT: Normocephalic, Anicteric and Other (ETT in place)
Cardiovascular: Irregular Rhythm (Irregularly irregular) and Peripheral Edema (negative)
Respiratory: Wheeze (negative), Crackles (Bibasilar), Rhonchi (negative), Stridor (negative) and ET Tube (Mechanical breath sounds heard bilaterally)
GI: Soft, Distended (less distended ), Other (Hypoactive bowel sounds) and Other (Wound VAC on mid-abdomen)
Neurology: Tremors (negative) and Other (Sedated)
Skin: Warm, Dry, Cyanosis (negative) and Jaundice (negative)
Labs/Micro/Reports
Lab Data
02/09/25 04:00
02/09/25 04:00
Laboratory Results
02/08/25 02/08/25 02/09/25
08:35 22:59 04:00
APTT 86.3 H 77.0 H
pH 7.42
pCO2 40
pO2 150 H
HCO3 25.9
O2 Delivery Level 40%
02/09/25
05:11
APTT 80.3 H
pH
pCO2
pO2
HCO3
O2 Delivery Level
Microbiology
02/07/25 18:36 Blood/Venous Blood Culture - Preliminary
No Growth in 24 hours- Final report to follow
--- NOTE | 2025-02-09 08:00 | PTCARENOTE ---
Assumed care of patient. Pt rec'd intubated and sedated on vent. Pt occasionally grimaces to repositioning/care. Occasionally attempts to open eyes to verbal stimuli. Bilateral wrist restraints on. DRAKE's but weak. Heels elevated on pillows.
S1 S2 irregular w/ afib on monitor. Weak PP's. Trace/+1 generalized edema. Knee hi SCD's on. #8 ETT 25cm right lip. Current vent settings: 18/500/+5/40%...sats 97%. Lungs diminished. Occasional NPC. Abdomen round...tender to palpation. No
BS. Right nare [place] (75cm) -> LIWS...draining green liquid. Irrigated w/ 30mls of tap water (per MD order) without issue. Temp sensing candelaria draining cloudy yellow urine w/ sediment. Candelaria care done. Skin sallow in color. Wound vac intact
over open abdominal wound...draining serous fluid. Protective sacral foam intact. Left radial jonh...flushed and zeroed. Left midline. Multiple left arm INT's. Right DL PICC. TPN, levo, amiodarone, propofol, fentanyl, heparin, and insulin
gtts infusing...see interventions. VS documented. Safe environment confirmed. Will continue to monitor.
--- NOTE | 2025-02-09 08:17 | W.PN.ANS.POP ---
Anesthesia Post Operative
- Anesthesia Post Op Note
Vital Signs Stable-See Nursing Note: Yes (stable on 6 mcg/min norepinephrine)
Airway Patent: Yes
Adequate Pain Control: Yes
Change in Mental Status: No (Intubated and sedated)
Current Postoperative Nausea & Vomiting: No
Anesthesia Complications: No
General Anesthetic Recall: No
Unplanned Admission: No
Post Op Hydration Adequate: Yes
[2025-02-09] MEDS: NSS (PRESERVATIVE FREE) 10 ML IV (08:32)
[2025-02-09] MEDS: PROTONIX IV 40 MG IV (08:32)
--- NOTE | 2025-02-09 08:50 | W.PN.CARDCBS ---
Today's Communication / Plan
-
He remains on Levophed for blood pressure support. He remains septic and critically ill.
Continue IV heparin with known thromboembolic event.
His ventricular rates are stable overall
Continue IV amiodarone.
IV Lopressor if needed for additional rate control.
Continue to monitor volume status closely.
May need to consider resuming IV Lasix if his weight continues to increase. Lasix currently on hold.
Impression / Plan
-
.
Primary Pile Operator: Dr. Pickett
Primary EP: Dr Solorio
PCP: Dr Peñaloza
HPI: Patient with history of cardioembolic occlusion of left common femoral artery 06/2023, right iliac artery occlusion status post thromboembolectomy 10/29/2024. During that time was also noted to be in persistent rapid A-fib initially discovered
07/2023 with history of noncompliance with medications. Also with known low EF suspected tachycardia mediated status post cath 05/2024 with nonobstructive CAD.
He presented back to the ED 11/2024 due to generalized malaise and was noted to have a seroma of his right groin s/p I/D and wound vac. He was also found to be in decompensated heart failure with reduced ejection fraction and have atrial
fibrillation with rapid ventricular rates. Plan for LUIS ENRIQUE cardioversion but LUIS ENRIQUE 01/04/2025 showed massive occlusive thrombus in left atrial appendage. Most recently, presented on 01/27/2025 with acute onset abdominal pain found to have acute
mesenteric ischemia with SMA occlusion, went to OR for exploratory laparotomy and SMA thrombectomy. Postop shock with metabolic/lactic acidosis, on Levophed and intubated. Cardiology consulted for management of atrial fibrillation and heart failure
Impression:
Acute mesenteric ischemia with SMA occlusion, status post exploratory lap and SMA thrombectomy 01/27/2025 and redo OR 02/07/2025 and OR 02/08/2025
Acute hypoxemic respiratory failure
Shock with metabolic/lactic acidosis
Right groin seroma
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
Persistent atrial fibrillation, first discovered July 2023
Non-RI myocardial injury
Chronic OAC with eliquis
Left atrial appendage thrombus by LUIS ENRIQUE 12/2024
Chronic HFrEF
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
NSVT
Hyperthyroidism
Noncompliance
Depression
History of ETOH and tobacco abuse
Obesity
Ventilator dependent respiratory failure
ECHO 04/04/2024: EF 10 to 15%, severe global hypokinesis, mild MR, trace TR, PAP 30 to 33 mmHg
Cardiac catheterization 05/22/2024: Nonobstructive coronary disease with normal to mildly elevated right and left-sided filling pressures with normal cardiac output
Echocardiogram 10/30/2024: Severely dilated left ventricle, severely reduced LV systolic function, global hypokinesis with ejection fraction of 5-10%, moderate to severe eccentric TR with PA pressure of 30-35 mmHg, small pericardial effusion.
LUIS ENRIQUE 01/04/2025: LVEF 10 to 15%, definite massive occlusive thrombus in left atrial appendage, mild MR, moderate to severe TR
Plan:
Unfortunately he had to go back to the operating room 02/07 due to free air in his abdomen and perforated viscus and he had a small bowel resection and placement of a wound VAC. He had to go back to OR 02/08 as well.
He remains on Levophed for blood pressure support. He remains septic and critically ill.
Continue IV heparin with known thromboembolic event.
His ventricular rates are stable overall
Continue IV amiodarone.
IV Lopressor if needed for additional rate control.
Hemoglobin stable at 12.7 on 02/08/2025 and 11.5 on 02/09/2025. Creatinine is normal at 1.1 on 02/09/2025
Continue to monitor volume status closely.
May need to consider resuming IV Lasix if his weight continues to increase. Lasix currently on hold.
He has had 3 cardiac embolic events in the past 9 months felt to be due to noncompliance. Continue IV heparin and eventually restart Eliquis.
His severe LV dysfunction is likely tachycardia mediated and related to noncompliance.
Long-term plan would likely be to repeat transesophageal echo (given large occlusive thrombus in left atrial appendage) if he recovers from abdominal procedures and then make a plan regarding risk of ablation.
Discussed with nursing.
Critical care time 32 minutes
Progress Note - Pile Operator
Subjective
Date of Service: February 09, 2025
Patient seen and examined. Sedated on vent.
Objective
Labs:
02/09/25 04:00
02/09/25 04:00
Labs
Hgb 11.5 g/dL (13.0-18.0) L 02/09/25 04:00
Hct 34.8 % (39.0-52.0) L 02/09/25 04:00
Plt Count 210 10^3/uL (130-400) 02/09/25 04:00
PT 18.0 Sec (11.4-14.6) H 01/28/25 06:36
INR 1.46 01/28/25 06:36
APTT 80.3 Sec (23.4-35.0) H 02/09/25 05:11
Sodium 142 mmol/L (135-145) 02/09/25 04:00
Potassium 4.2 mmol/L (3.5-5.1) 02/09/25 04:00
BUN 36 mg/dl (9-20) H 02/09/25 04:00
Creatinine 1.1 mg/dL (0.7-1.3) 02/09/25 04:00
Glucose 118 mg/dl (70-99) H 02/09/25 04:00
Vital Signs and I&O:
Vital Signs
Temp Pulse Resp BP Pulse Ox
101.8 F H 95 18 134/114 99
02/09/25 07:23 02/09/25 06:30 02/09/25 06:30 02/09/25 05:07 02/09/25 08:04
Vital Signs
Temp Pulse Resp BP Pulse Ox
101.8 F H 95 18 134/114 99
02/09/25 07:23 02/09/25 06:30 02/09/25 06:30 02/09/25 05:07 02/09/25 08:04
Intake & Output
02/07/25 02/08/25 02/09/25 02/10/25
06:59 06:59 06:59 06:59
Intake Total 2499.4 / 2499.4 2400.3 / 2566.1 3564.2 / 3564.2
Output Total 1150 / 1150 2250.0 / 2300.0 2170 / 2170
Balance 1349.4 / 1349.4 150.3 / 266.1 1394.2 / 1394.2
Physical Exam
Physical Exam
General: Sedated on vent.
Neck: Negative JVD
Heart: Irregular irregular, Negative S3 positive S1/S2, Negative S4, No murmur
Lungs: CTA b/l, negative wheezes/rales/rhonchi
Abd: Positive BS, NT/ND, neg rebound/rigidity/guarding
Ext: Negative cyanosis/clubbing/edema
Neuro: nonfocal
--- NOTE | 2025-02-09 08:54 | W.PN.HOSP.TC ---
Today's Communication/Plan
-
see bold
Assessment / Plan
Assessment / Plan
HPI: 59 year old male with hx dilated cardiomyopathy, EF 5-10%, afib with known LV thrombus on AC non-compliant, left lower extremity arterial occlusion due to thromboembolism 07/06 and acute limb ischemia RLE s/p thromboembolectomy 11/06 presents
to the ER with abdominal pain and shortness of breath. CT A/P showed thrombosis of the SMA s/p ex lap with thromboembolectomy of SMA and placement of an AbThera Vac 01/27/25; s/p ex lap with partial omentectomy and abdominal closure on 01/28.
Post-op course with ileus.
A/P:
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
Post-op Ileus
-appreciate vascular, CRS, Process Operator consults
-s/p OR 01/27: thromboembolectomy of SMA, placement ABThera Vac
-s/p OR 01/28: exploratory laparotomy, mesenteric angiography, partial omentectomy, tap block, abdominal closure
-s/p IV Zosyn - completed 7 day course, s/p Levophed now off
-TPN initiated on 02/02
-02/07, CT abdomen and pelvis shows new mild intraperitoneal free air indicating a perforated viscus
-s/p OR 02/07: exploratory laparotomy, small bowel resection, lysis of adhesions, placement of ABThera wound VAC
-Continue NPO, NGT, TPN, IV zosyn, micafungin
-Currently on Levophed, wean as tolerated
-Going back to the OR 02/11/2025
-Trend fever and white count
Hypoxic Respiratory Failure status post intubation
-Appreciate breaker machine operator input, continue vent management as per breaker machine operator
Hypokalemia
Hypophosphatemia
-replete as needed
Toxic metabolic encephalopathy
-Monitor
Permanent AFIB with RVR
Left atrial appendage thrombus
-Status post Cardizem drip
-appreciate Cardiology, continue IV amiodarone drip, IV metoprolol, IV heparin drip
-resume Metoprolol when able to take PO
-resume Eliquis when confirm no need for further procedures
Acute on chronic HFrEF (EF 5-10%)
-hold [employer] Entresto and Metop XL until patient can take PO meds
-Hold IV Lasix until BP improves
-Trend creatinine, trend daily weights
Bacteruria
-UA on 02/05/25 with bacteuria
-Was on Rocephin, changed to Zosyn as above
Hyperthyroid--new diagnosis last admission?--on methimazole but would hold for now
-repeat TSH here WNL
Type 2 diabetes
-IV insulin drip for glycemic protocol
PAD
Active smoker--educated on importance of cessation
DVT proph - IV heparin drip
Code status - Full Code
Updated brother Jag on phone 02/08
Total time spent to see the patient on the floor, examine the patient, review data and lab results, discuss treatment plan with patient, nursing staff around 50 minutes.
Physical Exam
General: Obese
HEENT: Normocephalic, Atraumatic, EOMI, MMM
Respiratory: Clear to Auscultation bilaterally
Cardiac: Normal S1/S2, tachycardic rate and irregular rhythm
GI: Soft, distended, incision dressed, +wound VAC
Extremities: No Clubbing, No Cyanosis
Psych: Intermittently agitated, frustrated
Anticipated Discharge: > 48 hours
Subjective/Interval History
-
Date of Service: February 08, 2025
Patient is intubated and sedated. Continues to be febrile.
Objective Data
-
Labs:
Laboratory Results
02/08/25 02/08/25
04: 08:35
WBC 11.0 H
Hgb 12.7 L
Hct 39.0
Plt Count 232
APTT 86.3 H
HCO3 24.9
Sodium 143
Potassium 3.7
Chloride 111 H
Carbon Dioxide 24
BUN 23 H
Creatinine 0.8
Glucose 243 H
Calcium 7.4 L
Vital Signs:
Vital Signs
Temp Pulse Resp BP Pulse Ox
101.4 F H 104 20 136/88 96
02/08/25 11:19 02/08/25 12:42 02/08/25 12:42 02/08/25 12:42 02/08/25 12:42
I&O
02/07/25 02/08/25 02/09/25
06:59 06:59 06:59
Intake Total 2499.4 / 2499.4 2400.3 / 2566.1 1045.1 / 1045.1
Output Total 1150 / 1150 2250.0 / 2300.0 250 / 250
Balance 1349.4 / 1349.4 150.3 / 266.1 795.1 / 795.1
[2025-02-09 09:10] LABS: Glucose - Point of Care 110 mg/dl (70-99)
[2025-02-09] MEDS: MYCAMINE 105 MG IV (09:32)
[2025-02-09] MEDS: LEVOPHED 258 MG IV (11:02)
[2025-02-09 11:15] LABS: Glucose - Point of Care 124 mg/dl (70-99)
--- NOTE | 2025-02-09 11:30 | PTCARENOTE ---
Spoke with sister, Keyla Peterson, at length. Per her...she has been updated 'daily' and her mother is not able to call as often for updates. Contact info updated in chart.
--- NOTE | 2025-02-09 12:00 | PTCARENOTE ---
Pt reassessed...no major changes in physical assessment. VS documented. Will continue to monitor closely.
[2025-02-09] MEDS: CORDARONE 518 MG IV (12:10)
--- NOTE | 2025-02-09 12:30 | PTCARENOTE ---
Right nare salem removed (due to coiling) per . New 18fr salem placed in left nare without issue at 70cm. Placement confirmed w/ auscultation, xray, and green bile draining from salem. Slowly weaning levo gtt per MD orders. ETT moved
to left side of mouth.
[2025-02-09 13:15] LABS: Glucose - Point of Care 120 mg/dl (70-99)
[2025-02-09 13:52] LABS: ALT (SGPT) 14 U/L (0-50); AST (SGOT) 24 U/L (17-59); Albumin 1.2 g/dl (3.5-5.0); Alkaline Phosphatase 57 U/L (38-126); Direct Bilirubin 4.3 mg/dl (0.0-0.4); Total Bilirubin 5.1 mg/dl (0.2-1.3); Total Protein 3.8 g/dl (6.3-8.2)
--- NOTE | 2025-02-09 14:26 | W.PN.GS2 ---
Addendum entered and electronically signed by Ishmael Hernandes MD 02/09/25 14:44:
Patient seen and examined. Agree with assessment plan as documented below.
Intubated and sedated. Abdomen with ABThera VAC in place holding suction without any leakage or issues.
Patient has been weaned down on pressors. Continue with resuscitation in hopes of weaning off pressors and allowing for a safer reoperation and reanastomosis. Tentative plan for take back on Tuesday for evaluation and potential reestablishment of
intestinal continuity.
Original Note:
Today's Communication / Plan
-
NGT to suction
Continue ABThera Vac
Assessment / Plan
-
59-year-old male with hx tobacco abuse, dilated cardiomyopathy, EF 5-10%, afib with known LV thrombus on AC non-compliant, left lower extremity arterial occlusion due to thromboembolism 07/06 and acute limb ischemia RLE s/p thromboembolectomy
11/06. Who presented with SMA thrombosis.
POD #13 Exploratory laparotomy, thromboembolectomy of superior mesenteric artery, and placement of AbThera VAC, status post OR with colorectal surgery with abdominal closure
POD #2 Exploratory laparotomy, small bowel resection, lysis of adhesions, placement of ABThera wound VAC for small bowel perforation, mesenteric ischemia, SMA occlusion with
POD #1 Exploratory laparotomy, abdominal washout, mesenteric angiography with spy, placement of ABThera VAC
Open abdomen with ABThera Vac, Bowel in discontinuity
VDRF, Hypotension requiring IV pressors
LFT's elevated: shock liver suspected. Bilirubin now trending down
NGT replaced today as it was dislodged
--Continue NPO with ngt to suction
--Continue TPN via PICC, no lipids in TPN given elevated LFT's and concurrent use of propofol
--H/H remains stable on IV heparin
--Continue ABX
--Continue ABThera vac, tentative return to OR in 48-72 hours pending patient progress and ideally off pressors
--Medical management as per primary/icu teams
Subjective Data
-
Date of Service: February 09, 2025
Patient seen and examined at bedside with Dr. Hernandes. Sedated/vented. Comfortable appearing
Objective Data
-
Intake and Output
02/08/25 02/09/25 02/10/25
06:59 06:59 06:59
Intake Total 2400.3 / 2566.1 3564.2 / 3698.3 1371.4 / 1371.4
Output Total 2250.0 / 2300.0 2170 / 2245 575 / 575
Balance 150.3 / 266.1 1394.2 / 1453.3 796.4 / 796.4
Intake:
IV fluids (Total) 1408.3 / 1511.1 1769.7 / 1852.8 653.4 / 653.4
Amiodarone 233.8 / 250.5 367.4 / 384.1 133.6 / 133.6
Cardizem 60 / 60
Fentanyl 0 / 2.5 92.5 / 100.0 60.0 / 60.0
Heparin 336 / 368 640 / 672 256 / 256
Insulin 21.0 / 22.2 9.6 / 9.6
Levophed 562.5 / 592.5 288.8 / 300.1 79.0 / 79.0
Propofol 216.0 / 237.6 360.0 / 374.4 115.2 / 115.2
IV piggybacks 50 / 50 522.5 / 522.5 250 / 250
TPN/PPN 882 / 945 1152 / 1203 408 / 408
Amount instilled into GI Tube ( 60 / 60 120 / 120 60 / 60
Total)
[place] Sump 60 / 60 120 / 120 60 / 60
Output:
Drain Output (Total) 300 / 300
Abdomen Wound Vac 300 / 300
Gastrointestinal tube output ( 50 / 50 550 / 550
Total)
[place]ell Sump 50 / 50 550 / 550
Urine, Candelaria 1250 / 1300 1620 / 1695 575 / 575
Urine, Voided 650.0 / 650.0
Vital Signs
Temp Pulse Resp BP Pulse Ox
100.9 F H 89 18 134/114 99
02/09/25 11:03 02/09/25 14:00 02/09/25 14:00 02/09/25 05:07 02/09/25 14:00
Lab Results
02/09/25 04:00
02/09/25 04:00
Calcium 7.6 mg/dl (8.4-10.2) L 02/09/25 04:00
Phosphorus 2.9 mg/dl (2.5-4.5) 02/09/25 04:00
Magnesium 2.2 mg/dl (1.6-2.3) 02/09/25 04:00
Total Bilirubin 5.1 mg/dl (0.2-1.3) H 02/09/25 13:04
Direct Bilirubin 4.3 mg/dl (0.0-0.4) H 02/09/25 13:04
AST 24 U/L (17-59) 02/09/25 13:04
ALT 14 U/L (0-50) 02/09/25 13:04
Alkaline Phosphatase 57 U/L (38-126) 02/09/25 13:04
Total Protein 3.8 g/dl (6.3-8.2) L 02/09/25 13:04
Albumin 1.2 g/dl (3.5-5.0) L 02/09/25 13:04
Physical Exam
-
NAD
ABD soft, mild distention. NGT with bilious outputs
Midline incision with ABThera vac, serous drainage
Candelaria with bile stained urine
Skin jaundiced
Patient has a candelaria catheter: Yes
Patient has a central line: Yes
[2025-02-09 15:13] LABS: Glucose - Point of Care 117 mg/dl (70-99)
--- NOTE | 2025-02-09 16:00 | PTCARENOTE ---
Pt reassessed...no major changes. Remains intubated and sedated. Gtts infusing per MD orders. Attempting to wean levo gtt to keep MAP > 65. Repositioned q2h. Will continue to monitor closely.
[2025-02-09 17:16] LABS: Glucose - Point of Care 110 mg/dl (70-99)
[2025-02-09 19:14] LABS: Glucose - Point of Care 108 mg/dl (70-99)
[2025-02-09] MEDS: Parenteral Nutrition, Central 1380 IV (21:12)
[2025-02-09 21:29] LABS: Glucose - Point of Care 99 mg/dl (70-99)
--- NOTE | 2025-02-09 22:17 | PTCARENOTE ---
Assumed care of pt at 1900. Received pt intubated, #8.0 ETT 25cm at corner of mouth, AC 18/500/40/5. SpO2 98-100%. AFib 80s-90s on monitor. Received pt on Propofol, Fentanyl, Levophed, Amiodarone, Heparin, and Insulin infusions. See med titration
flowsheets for details. Insulin per CC glycemic protocol--drip turned off at 2114 per protocol and glucose checks ongoing. NGT to left nare to LIWS with green/brown drainage. Wound vac to open abd wound, patent with serous drainage. See nursing
shift assessment flowsheet for further physical assessment details.
[2025-02-09 22:23] LABS: Glucose - Point of Care 126 mg/dl (70-99)
[2025-02-09 23:21] LABS: Glucose - Point of Care 132 mg/dl (70-99)
--- NOTE | 2025-02-10 00:16 | PTCARENOTE ---
Midnight assessment unchanged. Pt remains off insulin drip, all other drips unchanged. AFib 80s-90s on monitor.
[2025-02-10 00:22] LABS: Glucose - Point of Care 130 mg/dl (70-99)
[2025-02-10 01:24] LABS: Glucose - Point of Care 139 mg/dl (70-99)
[2025-02-10] MEDS: DIPRIVAN 100 IV ×4 (03:25→23:02)
[2025-02-10 03:28] LABS: B.E. 0.3 mmol/L; HCO3 25.4 mmol/L (21-28); Ionized Calcium 1.17 mMOL/L (1.15-1.33); PCO2 42 mmHg (35-48); PO2 126 mmHg (83-108); Potassium 4.6 mMOL/L (3.5-5.1); Sodium 136 mMOL/L (136-145); pH 7.39 (7.35-7.45)
[2025-02-10 03:30] LABS: Glucose - Point of Care 152 mg/dl (70-99)
[2025-02-10 03:37] LABS: Hematocrit 32.9 % (39.0-52.0); Hemoglobin 10.7 g/dL (13.0-18.0); Mean Corp Hgb Conc. 32.5 g/dL (33.0-37.0); Mean Corpuscular Hgb 32.1 pg (27.0-31.0); Mean Corpuscular Volume 98.8 fL (80.0-94.0); Platelet Count 199 10^3/uL (130-400); Red Blood Cell Count 3.33 10^6/uL (4.70-6.10); Red Cell Dist. Width 17.2 % (11.5-14.5); White Blood Cell Count 12.7 10^3/uL (4.8-10.8)
[2025-02-10 03:51] LABS: APTT 76.7 Sec (23.4-35.0)
[2025-02-10 03:53] VITALS: BMI 35.5
[2025-02-10 04:04] LABS: ALT (SGPT) 17 U/L (0-50); AST (SGOT) 26 U/L (17-59); Albumin 1.5 g/dl (3.5-5.0); Alkaline Phosphatase 63 U/L (38-126); Blood Urea Nitrogen 42 mg/dl (9-20); Calcium 7.6 mg/dl (8.4-10.2); Carbon Dioxide 24 mmol/L (22-30); Chloride 111 mmol/L (98-107); Direct Bilirubin 4.4 mg/dl (0.0-0.4); Estimated Creatinine Clearance 104 ml/min; Glucose 158 mg/dl (70-99); Magnesium 2.4 mg/dl (1.6-2.3); Phosphorus 3.1 mg/dl (2.5-4.5); Potassium 4.5 mmol/L (3.5-5.1); Sodium 141 mmol/L (135-145); Total Bilirubin 5.3 mg/dl (0.2-1.3); Total Protein 4.5 g/dl (6.3-8.2); Triglycerides 233 mg/dl (10-149); eGFR > 60.00
--- NOTE | 2025-02-10 04:32 | PTCARENOTE ---
Assessment unchanged. Pt has been opening eyes to his name and able to nod/shake head appropriately to simple questions. AFib 90s on monitor. Remains off insulin drip, blood glucose checks now Q2 hours. All other drips remain the same. CHG cloth
bath done and all linens changed. Wound vac canister changed.
[2025-02-10 05:19] LABS: Glucose - Point of Care 138 mg/dl (70-99)
[2025-02-10] MEDS: ZOSYN 50 IV ×3 (05:46→17:34)
[2025-02-10] MEDS: HEPARIN 25000 UNITS/250 ML IV ×3 (06:54→23:03)
[2025-02-10 07:09] LABS: Glucose - Point of Care 145 mg/dl (70-99)
--- NOTE | 2025-02-10 08:00 | PTCARENOTE ---
Assumed care of patient. Pt rec'd intubated and sedated on vent. Pt occasionally grimaces to repositioning/care. Attempts to open eyes to verbal stimuli. Nods head appropriately. Bilateral wrist restraints on. DRAKE's but weak. Heels elevated
on pillows. S1 S2 irregular w/ afib on monitor. Weak PP's. Trace generalized edema. Knee hi SCD's on. #8 ETT 25cm right lip. Current vent settings: 18/500/+5/40%...sats 97%. Lungs diminished. Occasional PC...suctioned for thick yellow
secretions. Abdomen round...tender to palpation. No BS. Left nare salem (70cm) -> LIWS...draining green liquid. Irrigated w/ 30mls of tap water without issue. Temp sensing candelaria draining cloudy yellow urine w/ sediment. Candelaria care done. Skin
sallow in color. Wound vac intact over open abdominal wound...draining serous fluid. Protective sacral foam intact. Left radial jonh...flushed and zeroed. Left midline. Multiple left arm INT's. Right DL PICC. TPN, levo, amiodarone, propofol,
fentanyl, and heparin gtts infusing...see interventions. VS documented. Safe environment confirmed. Will continue to monitor.
[2025-02-10] MEDS: NSS (PRESERVATIVE FREE) 10 ML IV (08:03)
[2025-02-10] MEDS: PROTONIX IV 40 MG IV (08:03)
--- NOTE | 2025-02-10 08:17 | W.PN.INTV ---
Today's Communication / Plan
Recommendations
Mechanical ventilation
Heparin drip
NGT to low continuous wall suction
Sedate with goal RASS 0 to -2
HR control with goal <110
Amiodarone drip
Broad-spectrum antibiotics with Zosyn + micafungin
Going back to OR tomorrow (02/11/2025)
Continue ICU level care for this critically ill patient
Assessment
-
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
thromboembolic occlusion of the right iliac system s/p thromboembolectomy of the right iliac system + thromboembolectomy of the right SFA, popliteal artery and profundo-femoral artery (10/2024) who presents with abdominal pain and SOB. He was in
his usual state of health DATABASE DBA when he developed sudden periumbilical abdominal pain without nausea or vomiting. In the ER he was afebrile to 98.2 �F, pulse rate 135, breathing at 12 breaths/min, BP 162/110 and saturating 97% on room air. Initial
labs showed potassium 2.9, lactate 5.2, T. bili 2.1, and proBNP 4580. CTA A/P showed thrombosis of the SMA with small bilateral pleural effusions and groundglass attenuation in the bases of the lungs. He was given 40 mg IV Lasix in the ER,
Dilaudid 0.5 mg, potassium repletion, 1 L NS 0.9% and Zofran. Vascular surgery was consulted and given his significant abdominal pain of acute onset he was consented for the OR. He underwent exploratory laparotomy with thromboembolectomy of
superior mesenteric artery and placement of an AbThera VAC. Postoperatively he returned to the ICU intubated, and Manager User Interface services consulted for additional management/recommendations. Patient was extubated and improved, and subsequently
downgraded to the IMU on 01/31. He was downgraded to telemetry on 02/04 where he has been managed. Unfortunately on 02/05 he developed a small bowel obstruction. On 02/07, repeat CT A/P showed free air in the abdomen indicating a perforated viscus.
He went to the OR for an ex lap with small bowel resection and placement of an ABThera wound VAC, and is now transferred back to the ICU intubated.
Chronic conditions DATABASE DBA: Paroxysmal a-fib on Eliquis, hyperthyroidism, chronic HFrEF, left lower extremity arterial occlusion due to thromboembolism (06/2023)
Assessment and plan:
#1. Small bowel perforation with mesenteric ischemia and SMA occlusion s/p ex lap with small bowel resection, lysis of adhesions and placement of ABThera wound VAC (POD #3)
- Patient did go back to the OR on 02/08/2025 for an ex lap with abdominal washout and mesenteric angiography (no cultures sent)
- Postoperative management as per colorectal surgery
- Pain control
- Continue NGT on low continuous wall suction as his bowel is in discontinuity per colorectal surgery
- Continue heparin drip as per colorectal surgery given his SMA occlusion
- Lactate is 1.1 as of 02/09--> no need to continue trending
- Trend H&H and transfuse to keep Hb >7 g/dL; also keep platelets >50 K
#2. Ventilator dependent respiratory failure
- Continue with mechanical ventilation with daily SAT/SBT if clinically appropriate --> of note he is going back to OR tomorrow (02/11), hence would rather wait until after OR to do SAT/SBT given he will be re-intubated for this procedure
- Vent adjustments based on daily blood gas
- Daily CXR
- Titrate FiO2 + PEEP to maintain SpO2 >90-94%
- Keep plateau pressure <30
- ETT suctioning as needed
- Aspiration precautions
- Lightly sedated with goal RASS 0 to -2
#3. Circulatory shock
- Likely related to sedation with septic shock in the setting of A-fib with RVR and HFrEF
- Continue with Levophed and titrate down as tolerated while keeping MAP >65
- Trend WBC and monitor for fevers
- Also CT A/P from 02/07/2025 still shows circumferential wall thickening in the distal small bowel suggestive of enteritis
- Started micafungin on 02/08 given his bowel perf
- Exchanged candelaria on 02/08 given nicole colored urine coming out of candelaria on 02/08, and has been present for >7-10 days
#4. Acute mesenteric ischemia with SMA occlusion, likely embolic, s/p ex lap with SMA embolectomy (on 01/27/2025), followed by delayed abdominal wall closure with ex lap and partial omentectomy (on 01/28/2025)
- Continue heparin infusion as per CRC
- NG to suction as stated above, await return of bowel function
#5. Acute on Chronic heart failure with reduced ejection fraction, LVEF 10 to 15% with history of occlusive thrombus in MELISSA in the past
-Likely the source of embolic event to SMA
-Monitor input and output closely
-Lasix now on hold (last dose 02/07) - re-assess daily (will give a dose now as CXR shows that he is becoming volume overloaded on 02/10)
#6. Atrial fibrillation with rapid ventricular rate
- Continue amiodarone gtt
- Now off cardizem gtt
- IV lopressor on hold
- Cardiology service on case
- Heparin drip for anticoagulation
- Switch to oral meds once able to take PO
#7. Hyperglycemia
- HbA1c 6.3 on 01/27/2025
- Started insulin drip on 02/08 given he is critically ill with hyperglycemia - this is now weaned off; will resume ISS q6hr
#8. Abnormal urinalysis concerning for UTI
- UA on 02/05/2025 was positive for nitrites, with +1 leukocyte esterase and 6�10 urine WBC
- Ceftriaxone changed to Zosyn on 02/07/2025 in setting of small bowel perforation with sepsis
Gi Prophylaxis: PPI IV
DVT ppx: Heparin gtt
Continue ICU level care for this critically ill patient.
Critical care statement: A total of 43 minutes of critical care time was provided for this patient today. This includes management of unstable vital signs, evaluation of the patient at bedside, reviewing the patient's pertinent medical records
including radiographs, microbiology, laboratory evaluations, and discussion with primary team, consultants, pharmacy, nutrition, physical therapy, case management, charge nurse, critical care nursing, and respiratory therapy.
Data:
CTA Abd/Pelvis w/wo IV contrast 01/27/2025:
Thrombosis of superior mesenteric artery branches, new since prior examination.
No bowel thickening or pneumatosis to suggest bowel ischemia.
No acute inflammatory changes within the abdomen or pelvis.
Mild diverticulosis without acute diverticulitis.
Stable fatty infiltration of liver. Stable low-attenuation right adrenal mass 1.3 cm, most consistent with benign adenoma.
Hazy attenuation in the dependent lung bases. Groundglass attenuation. Small bilateral pleural effusions. Possible mild pulmonary edema and/or atelectasis.
CT A/P w IV and oral contrast 02/07/2025:
New mild intraperitoneal free air indicating a perforated viscus. The exact location is difficult to discern, but distribution of free air greatest in the anterior mid to upper abdomen near the persistently dilated proximal small bowel loops that
again contain air-fluid levels. Long segment distal small bowel smaller in caliber with circumferential wall thickening suggestive of an enteritis.
Subjective Dataa
Subjective Data
Date of Service:
Date of Service: February 10, 2025
Chief Complaint: Manager User Interface Follow Up
Subjective:
Patient was seen and evaluated today at bedside. Remains intubated on AC/CMV at 18/500/40%/5, with PIP 20 cmH2O, VTe 501 cc and breathing at 19 breaths/min. Heart rate 94, BP 123/59 and saturating 99%. Currently on heparin drip, Levophed at 2
mcg/min, propofol at 20 mcg/kg/min and fentanyl at 75 mcg/hr. He is now off the insulin drip. Remains on amiodarone drip at 0.5 mg/min.
Review of Systems
General: Unobtainable - Sedation (+ Intubated)
Objective Data
Data Reviewed
Vital Signs / I&O / Oxygen:
Vital Signs
Temp Pulse Resp BP Pulse Ox
99.3 F 86 18 116/54 100
02/10/25 07:10 02/10/25 09:51 02/10/25 06:00 02/10/25 09:51 02/10/25 07:51
Intake and Output
02/09/25 02/10/25 02/11/25
06:59 06:59 06:59
Intake Total 3564.2 / 3698.3 3892.5 / 4024.9 329.0 / 329.0
Output Total 2170 / 2245 3415 / 3515 175 / 175
Balance 1394.2 / 1453.3 477.5 / 509.9 154.0 / 154.0
SaO2 [A/C] 99
SaO2 100
Nasal Cannula flow liters per 2
minute
Physical Exam
General: Respiratory Distress (negative), Comfortable, Chills (negative) and Sweats (negative)
HEENT: Normocephalic, Anicteric and Other (ETT in place)
Cardiovascular: Irregular Rhythm (Irregularly irregular) and Peripheral Edema (negative)
Respiratory: Wheeze (negative), Crackles (Bibasilar), Rhonchi (negative), Stridor (negative) and ET Tube (Mechanical breath sounds heard bilaterally)
GI: Soft, Distended (less distended ), Other (Hypoactive bowel sounds) and Other (Wound VAC on mid-abdomen)
Neurology: Tremors (negative) and Other (Sedated)
Skin: Warm, Dry, Cyanosis (negative) and Jaundice (negative)
Labs/Micro/Reports
Lab Data
02/10/25 03:19
02/10/25 03:19
Laboratory Results
02/10/25 02/10/25
03:19 06:00
APTT 76.7 H
pH 7.39 Cancelled
pCO2 42 Cancelled
pO2 126 H Cancelled
HCO3 25.4 Cancelled
O2 Delivery Level Cancelled
Microbiology
02/07/25 18:36 Blood/Venous Blood Culture - Preliminary
No Growth in 48 hours- Final report to follow
--- NOTE | 2025-02-10 08:55 | W.PN.HOSP.TC ---
Today's Communication/Plan
-
See bold
Assessment / Plan
Assessment / Plan
HPI: 59 year old male with hx dilated cardiomyopathy, EF 5-10%, afib with known LV thrombus on AC non-compliant, left lower extremity arterial occlusion due to thromboembolism 07/06 and acute limb ischemia RLE s/p thromboembolectomy 11/06 presents
to the ER with abdominal pain and shortness of breath. CT A/P showed thrombosis of the SMA s/p ex lap with thromboembolectomy of SMA and placement of an AbThera Vac 01/27/25; s/p ex lap with partial omentectomy and abdominal closure on 01/28.
Post-op course with ileus.
A/P:
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
Post-op Ileus
-appreciate vascular, CRS, Acting Instructor consults
-s/p OR 01/27: thromboembolectomy of SMA, placement ABThera Vac
-s/p OR 01/28: exploratory laparotomy, mesenteric angiography, partial omentectomy, tap block, abdominal closure
-s/p IV Zosyn - completed 7 day course, s/p Levophed now off
-TPN initiated on 02/02
-02/07, CT abdomen and pelvis shows new mild intraperitoneal free air indicating a perforated viscus
-s/p OR 02/07: exploratory laparotomy, small bowel resection, lysis of adhesions, placement of ABThera wound VAC
-Continue NPO, NGT, TPN, IV zosyn, micafungin
-Currently on low dose Levophed, wean as tolerated
-Going back to the OR 02/11/2025
-Trend fever and white count
Hypoxic Respiratory Failure status post intubation
-Appreciate director of slot operations input, continue vent management as per director of slot operations
Hypokalemia
Hypophosphatemia
-replete as needed
Toxic metabolic encephalopathy
-Monitor
Permanent AFIB with RVR
Left atrial appendage thrombus
-Status post Cardizem drip
-appreciate Cardiology, continue IV amiodarone drip, IV heparin drip
-holding IV metoprolol due to hypotension
-resume Metoprolol when able to take PO
-resume Eliquis when confirm no need for further procedures
Acute on chronic HFrEF (EF 5-10%)
-hold [place] Entresto and Metop XL until patient can take PO meds
-IV Lasix as needed as per cardiology
-Trend creatinine, trend daily weights
Bacteruria
-UA on 02/05/25 with bacteuria
-Was on Rocephin, changed to Zosyn as above
Hyperthyroid--new diagnosis last admission?--on methimazole but would hold for now
-repeat TSH here WNL
Type 2 diabetes
-IV insulin drip for glycemic protocol
PAD
Active smoker--educated on importance of cessation
DVT proph - IV heparin drip
Code status - Full Code
Updated brother Jag on phone 02/08
Total time spent to see the patient on the floor, examine the patient, review data and lab results, discuss treatment plan with patient, nursing staff around 51 minutes.
Physical Exam
General: Obese
HEENT: Normocephalic, Atraumatic, DMM
Respiratory: Clear to Auscultation bilaterally
Cardiac: Normal S1/S2, tachycardic rate and irregular rhythm
GI: Soft, distended, incision dressed, +wound VAC
Extremities: No Clubbing, No Cyanosis
Psych: Intermittently agitated, frustrated
Anticipated Discharge: > 48 hours
Subjective/Interval History
-
Date of Service: February 10, 2025
Intubated and sedated. Continues to have fever, overall improved.
Objective Data
-
Labs:
Laboratory Results
02/10/25 02/10/25
03:19 06:00
WBC 12.7 H
Hgb 10.7 L
Hct 32.9 L
Plt Count 199
APTT 76.7 H
HCO3 25.4 Pending
Sodium 141
Potassium 4.5
Chloride 111 H
Carbon Dioxide 24
BUN 42 H
Creatinine 1.0
Glucose 158 H
Calcium 7.6 L
Total Bilirubin 5.3 H
AST 26
ALT 17
Alkaline Phosphatase 63
Vital Signs:
Vital Signs
Temp Pulse Resp BP Pulse Ox
99.3 F 80 18 134/114 100
02/10/25 07:10 02/10/25 06:00 02/10/25 06:00 02/09/25 05:07 02/10/25 07:51
I&O
02/09/25 02/10/25 02/11/25
06:59 06:59 06:59
Intake Total 3564.2 / 3698.3 3892.5 / 4024.9 329.0 / 329.0
Output Total 2170 / 2245 3415 / 3515 175 / 175
Balance 1394.2 / 1453.3 477.5 / 509.9 154.0 / 154.0
--- NOTE | 2025-02-10 09:04 | W.PN.CARDCBS ---
Today's Communication / Plan
-
A-fib remains rate controlled on IV amiodarone.
He remains on Levophed for blood pressure support.
Can use IV Lopressor if needed.
Plan is to go back to the operating room in AM.
Will give Lasix 40 g IV x 1 today.
Impression / Plan
-
.
Primary Safety And Security Manager: Dr. Pickett
Primary EP: Dr Solorio
PCP: Dr Peñaloza
HPI: Patient with history of cardioembolic occlusion of left common femoral artery 06/2023, right iliac artery occlusion status post thromboembolectomy 10/29/2024. During that time was also noted to be in persistent rapid A-fib initially discovered
07/2023 with history of noncompliance with medications. Also with known low EF suspected tachycardia mediated status post cath 05/2024 with nonobstructive CAD.
He presented back to the ED 11/2024 due to generalized malaise and was noted to have a seroma of his right groin s/p I/D and wound vac. He was also found to be in decompensated heart failure with reduced ejection fraction and have atrial
fibrillation with rapid ventricular rates. Plan for LUIS ENRIQUE cardioversion but LUIS ENRQIUE 01/04/2025 showed massive occlusive thrombus in left atrial appendage. Most recently, presented on 01/27/2025 with acute onset abdominal pain found to have acute
mesenteric ischemia with SMA occlusion, went to OR for exploratory laparotomy and SMA thrombectomy. Postop shock with metabolic/lactic acidosis, on Levophed and intubated. Cardiology consulted for management of atrial fibrillation and heart failure
Impression:
Acute mesenteric ischemia with SMA occlusion, status post exploratory lap and SMA thrombectomy 01/27/2025 and redo OR 02/07/2025 and OR 02/08/2025
Acute hypoxemic respiratory failure
Shock with metabolic/lactic acidosis
Right groin seroma
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
Persistent atrial fibrillation, first discovered July 2023
Non-AZ myocardial injury
Chronic OAC with eliquis
Left atrial appendage thrombus by LUIS ENRIQUE 12/2024
Chronic HFrEF
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
NSVT
Hyperthyroidism
Noncompliance
Depression
History of ETOH and tobacco abuse
Obesity
Ventilator dependent respiratory failure
ECHO 04/04/2024: EF 10 to 15%, severe global hypokinesis, mild MR, trace TR, PAP 30 to 33 mmHg
Cardiac catheterization 05/22/2024: Nonobstructive coronary disease with normal to mildly elevated right and left-sided filling pressures with normal cardiac output
Echocardiogram 10/30/2024: Severely dilated left ventricle, severely reduced LV systolic function, global hypokinesis with ejection fraction of 5-10%, moderate to severe eccentric TR with PA pressure of 30-35 mmHg, small pericardial effusion.
LUIS ENRIQUE 01/04/2025: LVEF 10 to 15%, definite massive occlusive thrombus in left atrial appendage, mild MR, moderate to severe TR
Plan:
His abdomen remains open. He will be going back to the operating room in the AM. His blood pressure is stable.
He remains on Levophed for blood pressure support. He remains septic and critically ill. Continue TPN.
Continue IV heparin with known thromboembolic event.
His ventricular rates are stable overall
Continue IV amiodarone gtt
IV Lopressor if needed for additional rate control.
Hemoglobin is drifting down and now at 10.7. Continue to follow. Creatinine is normal at 1.1 on 02/09/2025
His weight has increased. Will give Lasix 40 mg IV x 1 today.
He has had 3 cardiac embolic events in the past 9 months felt to be due to noncompliance. Continue IV heparin and eventually restart Eliquis.
His severe LV dysfunction is likely tachycardia mediated and related to noncompliance.
Long-term plan would likely be to repeat transesophageal echo (given large occlusive thrombus in left atrial appendage) if he recovers from abdominal procedures and then make a plan regarding risk of ablation.
Discussed with nursing.
Critical care time 31 min
Progress Note - Safety And Security Manager
Subjective
Date of Service: February 10, 2025
Remains intubated with an open abdomen. Plan to go back to the operating room tomorrow.
Remains on pressors with Levophed.
Objective
Labs:
02/10/25 03:19
02/10/25 03:19
Labs
Hgb 10.7 g/dL (13.0-18.0) L 02/10/25 03:19
Hct 32.9 % (39.0-52.0) L 02/10/25 03:19
Plt Count 199 10^3/uL (130-400) 02/10/25 03:19
PT 18.0 Sec (11.4-14.6) H 01/28/25 06:36
INR 1.46 01/28/25 06:36
APTT 76.7 Sec (23.4-35.0) H 02/10/25 03:19
Sodium 141 mmol/L (135-145) 02/10/25 03:19
Potassium 4.5 mmol/L (3.5-5.1) 02/10/25 03:19
BUN 42 mg/dl (9-20) H 02/10/25 03:19
Creatinine 1.0 mg/dL (0.7-1.3) 02/10/25 03:19
Glucose 158 mg/dl (70-99) H 02/10/25 03:19
Vital Signs and I&O:
Vital Signs
Temp Pulse Resp BP Pulse Ox
99.3 F 80 18 134/114 100
02/10/25 07:10 02/10/25 06:00 02/10/25 06:00 02/09/25 05:07 02/10/25 07:51
Vital Signs
Temp Pulse Resp BP Pulse Ox
99.3 F 80 18 134/114 100
02/10/25 07:10 02/10/25 06:00 02/10/25 06:00 02/09/25 05:07 02/10/25 07:51
Intake & Output
02/08/25 02/09/25 02/10/25 02/11/25
06:59 06:59 06:59 06:59
Intake Total 2400.3 / 2566.1 3564.2 / 3698.3 3892.5 / 4024.9 329.0 / 329.0
Output Total 2250.0 / 2300.0 2170 / 2245 3415 / 3515 175 / 175
Balance 150.3 / 266.1 1394.2 / 1453.3 477.5 / 509.9 154.0 / 154.0
Physical Exam
Physical Exam
GEN: No distress, intubated/sedated
HEENT: supple, anicteric, mmm
LUNGS: CTA, no wheezes/rales
CV: Irreg, S1/S2, 1/6 syst LSB, no gallop
ABD: soft, BS+, NT/ND
EXT: No edema
NEURO: Gross non-focal
SKIN: No rash
[2025-02-10 09:14] LABS: Glucose - Point of Care 142 mg/dl (70-99)
[2025-02-10] MEDS: LASIX 40 MG IV (09:51)
[2025-02-10] MEDS: MYCAMINE 105 MG IV (09:51)
--- NOTE | 2025-02-10 10:37 | W.PN.GS2 ---
Today's Communication / Plan
-
--Tentative plan for return to OR tomorrow, hopeful to re-establish intestinal continuity given improvement over the past 24-48 hours
--Will need to coordinate timing of Hep gtt hold for OR tomorrow
--TPN re-ordered
Assessment / Plan
-
59-year-old male with hx tobacco abuse, dilated cardiomyopathy, EF 5-10%, afib with known LV thrombus on AC non-compliant, left lower extremity arterial occlusion due to thromboembolism 07/06 and acute limb ischemia RLE s/p thromboembolectomy 11/06.
Who presented with SMA thrombosis.
POD #14 Exploratory laparotomy, thromboembolectomy of superior mesenteric artery, and placement of AbThera VAC, status post OR with colorectal surgery with abdominal closure
POD #3 Exploratory laparotomy, small bowel resection, lysis of adhesions, placement of ABThera wound VAC for small bowel perforation, mesenteric ischemia, SMA occlusion with
POD #2 Exploratory laparotomy, abdominal washout, mesenteric angiography with spy, placement of ABThera VAC
Open abdomen with ABThera Vac, Bowel in discontinuity
VDRF, Hypotension requiring IV pressors
LFT's elevated: shock liver suspected. Bilirubin now trending down
NGT replaced today as it was dislodged
Recovering well over the past 48 hours beginning to show signs of turning the corner with weaning of pressor requirements and improved urine output. Tentative plan for return to the operating room tomorrow to hopefully reestablish intestinal
continuity. Will need to coordinate holding heparin drip tomorrow.
--Tentative plan for return to OR tomorrow, hopeful to re-establish intestinal continuity given improvement over the past 24-48 hours
--Continue NPO with NGT to suction
--Continue TPN via PICC, no lipids in TPN given elevated LFT's and concurrent use of propofol
--H/H remains stable on IV Hep, will need to coordinate timing of Hep gtt hold for OR tomorrow
--Continue ABX
--Medical management as per primary/icu teams
Subjective Data
-
Date of Service: February 10, 2025
Intubated and sedated
Objective Data
-
Intake and Output
02/09/25 02/10/25 02/11/25
06:59 06:59 06:59
Intake Total 3564.2 / 3698.3 3892.5 / 4024.9 329.0 / 329.0
Output Total 2170 / 2245 3415 / 3515 175 / 175
Balance 1394.2 / 1453.3 477.5 / 509.9 154.0 / 154.0
Intake:
IV fluids (Total) 1769.7 / 1852.8 1855.5 / 1929.9 183.0 / 183.0
Amiodarone 367.4 / 384.1 400.8 / 417.5 33.4 / 33.4
Fentanyl 92.5 / 100.0 180.0 / 187.5 15.0 / 15.0
Heparin 640 / 672 768 / 800 64 / 64
Insulin 21.0 / 22.2 17.6 / 17.6 0 / 0
Levophed 288.8 / 300.1 143.5 / 147.3 41.8 / 41.8
Propofol 360.0 / 374.4 345.6 / 360.0 28.8 / 28.8
IV piggybacks 522.5 / 522.5 570 / 570
TPN/PPN 1152 / 1203 1287 / 1345 116 / 116
Amount instilled into GI Tube ( 120 / 120 180 / 180 30 / 30
Total)
[place] Sump 120 / 120 180 / 180 30 / 30
Output:
Drain Output (Total) 950 / 950
Abdomen Wound Vac 950 / 950
Gastrointestinal tube output ( 550 / 550 660 / 660
Total)
[place] Sump 550 / 550 660 / 660
Urine, Candelaria 1620 / 1695 1805 / 1905 175 / 175
Vital Signs
Temp Pulse Resp BP Pulse Ox
99.3 F 86 18 116/54 100
02/10/25 07:10 02/10/25 09:51 02/10/25 06:00 02/10/25 09:51 02/10/25 07:51
Lab Results
02/10/25 03:19
02/10/25 03:19
Calcium 7.6 mg/dl (8.4-10.2) L 02/10/25 03:19
Phosphorus 3.1 mg/dl (2.5-4.5) 02/10/25 03:19
Magnesium 2.4 mg/dl (1.6-2.3) H 02/10/25 03:19
Total Bilirubin 5.3 mg/dl (0.2-1.3) H 02/10/25 03:19
Direct Bilirubin 4.4 mg/dl (0.0-0.4) H 02/10/25 03:19
AST 26 U/L (17-59) 02/10/25 03:19
ALT 17 U/L (0-50) 02/10/25 03:19
Alkaline Phosphatase 63 U/L (38-126) 02/10/25 03:19
Total Protein 4.5 g/dl (6.3-8.2) L 02/10/25 03:19
Albumin 1.5 g/dl (3.5-5.0) L 02/10/25 03:19
Physical Exam
-
Gen: NAD
HEENT: NGT with bilious outputs
ABD soft, mild distention, midline incision with ABThera vac, holding suction, minimal serous drainage
Skin: jaundiced (stable to slightly improved)
Patient has a candelaria catheter: Yes
Patient has a central line: Yes
[2025-02-10 11:45] LABS: Glucose - Point of Care 148 mg/dl (70-99)
--- NOTE | 2025-02-10 12:00 | PTCARENOTE ---
No major changes in physical assessment since am. Lasix given per cardiology....adequate output noted...see I/O's. Per ...pt to go back to OR w/ tmr to tentatively close abdomen. VS documented. Safe environment confirmed. Will
continue to monitor.
[2025-02-10] MEDS: SUBLIMAZE 100 IV (12:32)
[2025-02-10] MEDS: SUBLIMAZE 50 MCG IV (15:17)
--- NOTE | 2025-02-10 15:47 | CHAP ---
Buster Sorenson was sleeping, non-responsive. No family was present. Words of comfort and a prayer offered bedside.
--- NOTE | 2025-02-10 16:00 | PTCARENOTE ---
Levophed gtt off since 1230. Off GP since 0900. Accuchecks q6H w/ SSC. No major changes in physical assessment. Fentanyl 50mcg IV x 1 provided...pt nodded head when asked if he had abdominal pain...see JAN. Will continue to monitor.
[2025-02-10] MEDS: NOVOLOG FLEXPEN-MODERATE RESISTANCE SC ×2 (17:49→23:59)
[2025-02-10] MEDS: CORDARONE 518 MG IV (17:54)
[2025-02-10 17:55] LABS: Glucose - Point of Care 123 mg/dl (70-99)
[2025-02-10] MEDS: OFIRMEV 100 IV (18:17)
[2025-02-10] MEDS: Parenteral Nutrition, Central 1380 IV (21:11)
--- NOTE | 2025-02-10 21:39 | PTCARENOTE ---
Assumed care of pt at 1900. Received pt intubated, #8.0 ETT 25cm at [facility], AC 18/500/40/5. Pt on Propofol, Fentanyl, Heparin, and Amiodarone infusions, as well as TPN. Remains off Levophed and Insulin drip. AFib 80s-90s on monitor, SpO2
98-100%. Wound vac to abd patent and draining serous fluid. NGT to left nare to LIWS with thick green/brown drainage. See nursing shift assessment flowsheet for full physical assessment details.
[2025-02-11] MEDS: ZOSYN 50 IV ×3 (00:02→11:29)
[2025-02-11 00:08] LABS: Glucose - Point of Care 125 mg/dl (70-99)
[2025-02-11] MEDS: OFIRMEV 100 IV ×3 (00:47→20:59)
--- NOTE | 2025-02-11 00:50 | PTCARENOTE ---
Assessment unchanged. Pt remains febrile, Ofirmev ordered PRN, administered at around 0050 (see EMAR). Arterial line tubing and flush bag changed. AFib 90s on monitor. Drips unchanged.
[2025-02-11] MEDS: SUBLIMAZE 100 IV ×2 (02:26→20:08)
[2025-02-11] MEDS: DIPRIVAN 100 IV ×4 (03:52→17:54)
[2025-02-11] MEDS: SUBLIMAZE 50 MCG IV (03:53)
[2025-02-11 04:07] VITALS: BMI 35.1
[2025-02-11 04:28] LABS: B.E. 1.3 mmol/L; HCO3 26.6 mmol/L (21-28); O2 Saturation % 99.4 % (94-98); PCO2 44 mmHg (35-48); PO2 118 mmHg (83-108); pH 7.39 (7.35-7.45)
[2025-02-11 04:40] LABS: Hematocrit 32.3 % (39.0-52.0); Hemoglobin 10.4 g/dL (13.0-18.0); Mean Corp Hgb Conc. 32.2 g/dL (33.0-37.0); Mean Corpuscular Hgb 31.7 pg (27.0-31.0); Mean Corpuscular Volume 98.5 fL (80.0-94.0); Mean Platelet Volume 11.6 fL (7.4-10.4); Platelet Count 218 10^3/uL (130-400); Red Blood Cell Count 3.28 10^6/uL (4.70-6.10); Red Cell Dist. Width 16.6 % (11.5-14.5); White Blood Cell Count 14.9 10^3/uL (4.8-10.8)
[2025-02-11 04:44] LABS: APTT 81.2 Sec (23.4-35.0)
[2025-02-11 05:03] LABS: ALT (SGPT) 30 U/L (0-50); AST (SGOT) 47 U/L (17-59); Albumin 1.8 g/dl (3.5-5.0); Alkaline Phosphatase 95 U/L (38-126); Blood Urea Nitrogen 45 mg/dl (9-20); Calcium 7.7 mg/dl (8.4-10.2); Carbon Dioxide 25 mmol/L (22-30); Chloride 110 mmol/L (98-107); Estimated Creatinine Clearance 94 ml/min; Glucose 137 mg/dl (70-99); Magnesium 2.3 mg/dl (1.6-2.3); Phosphorus 3.1 mg/dl (2.5-4.5); Potassium 4.1 mmol/L (3.5-5.1); Sodium 141 mmol/L (135-145); Total Bilirubin 5.4 mg/dl (0.2-1.3); Total Protein 4.9 g/dl (6.3-8.2); Triglycerides 240 mg/dl (10-149); eGFR > 60.00
--- NOTE | 2025-02-11 05:47 | PTCARENOTE ---
0400 assessment unchanged. Levo turned back on around 0215 d/t MAP sustaining in upper 50s/low 60s. Levo off again around 0545 (see med titration flowsheet). CHG cloth bath done and linens changed. Required Fentanyl bolus prior to CHG bath/turning,
see EMAR.
[2025-02-11] MEDS: NOVOLOG FLEXPEN-MODERATE RESISTANCE SC ×2 (06:00→11:28)
--- NOTE | 2025-02-11 06:00 | W.PN.HOSP.TC ---
Today's Communication/Plan
-
see a/p
Assessment / Plan
Assessment / Plan
Physical Exam
General: Obese
HEENT: Normocephalic, Atraumatic, DMM,intubated
Respiratory: Clear to Auscultation bilaterally
Cardiac: Normal S1/S2, tachycardic rate and irregular rhythm
GI: Soft, distended, incision dressed, +wound VAC
Extremities: No Clubbing, No Cyanosis
Neuro: sedated responsive to physical stimuli
59M hx dilated cardiomyopathy, EF 5-10%, afib LV thrombus on AC non-compliant, left lower extremity arterial occlusion due to thromboembolism 07/06 and acute limb ischemia RLE s/p thromboembolectomy 11/06 presented to the ER with abdominal pain and
shortness of breath. 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 Post-op course complicated with
ileus.
A/P:
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
Post-op Ileus
-appreciate vascular, CRS, Occ Med Physician consults
-s/p OR 01/27: thromboembolectomy of SMA, placement ABThera Vac
-s/p OR 01/28: exploratory laparotomy, mesenteric angiography, partial omentectomy, tap block, abdominal closure
-s/p IV Zosyn - completed 7 day course, however fever/leukocytosis persist
-TPN initiated on 02/02
-02/07, CT abdomen and pelvis showed new mild intraperitoneal free air indicating a perforated viscus
-s/p OR 02/07: exploratory laparotomy, small bowel resection, lysis of adhesions, placement of ABThera wound VAC
-Continue NPO, NGT, TPN
-ID eval appreciated empiric IV zosyn switched to meropenem, micafungin continued
-wean Levophed as tolerated
-Planned for return OR 02/11/2025
-Trend fever and white count
Hypoxic Respiratory Failure status post intubation
-Appreciate tetryl screen operator input, continue vent management as per tetryl screen operator
Hypokalemia
Hypophosphatemia
-replete as needed
Toxic metabolic encephalopathy
-Monitor
Permanent AFIB with RVR
Left atrial appendage thrombus
-Status post Cardizem drip
-appreciate Cardiology, continue IV amiodarone drip, IV heparin drip
-holding IV metoprolol due to hypotension
-resume Metoprolol when able to take PO
-resume Eliquis when confirm no need for further procedures
Acute on chronic HFrEF (EF 5-10%)
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
-IV Lasix as needed as per cardiology
-Trend creatinine, trend daily weights
Bacteruria
-UA on 02/05/25 with bacteuria
-Was on Rocephin, changed to Zosyn, then meropenem as above
Hyperthyroid--new diagnosis last admission?--on methimazole but would hold for now
-repeat TSH here WNL
Type 2 diabetes
-well controlled on sliding scale
-cont glycemic control
PAD
Active smoker--educated on importance of cessation
DVT proph - IV heparin drip
Code status - Full Code
Total Critical Care Time__50__ minutes. I was immediately available to the patient and staff. I personally examined, reviewed labs, diagnostic images/reports, interpretations, treatment plans, discussed patient care with other providers, entered
orders as appropriate and documented the medical record.
Anticipated Discharge: > 48 hours
Subjective/Interval History
-
Date of Service: February 11, 2025
sedated intubated. Responsive to physical stimuli.
Objective Data
-
Labs:
Laboratory Results
02/11/25 02/11/25
04:17 04:18
WBC 14.9 H
Hgb 10.4 L
Hct 32.3 L
Plt Count 218
APTT 81.2 H
HCO3 26.6
Sodium 141
Potassium 4.1
Chloride 110 H
Carbon Dioxide 25
BUN 45 H
Creatinine 1.1
Glucose 137 H
Calcium 7.7 L
Total Bilirubin 5.4 H
AST 47
ALT 30
Alkaline Phosphatase 95
Vital Signs:
Vital Signs
Temp Pulse Resp BP Pulse Ox
101.0 F H 89 18 116/54 99
02/11/25 04:23 02/11/25 04:05 02/11/25 04:05 02/10/25 09:51 02/11/25 04:06
I&O
02/09/25 02/10/25 02/11/25
06:59 06:59 06:59
Intake Total 3564.2 / 3698.3 3892.5 / 4024.9 3715.6 / 3715.6
Output Total 2170 / 2245 3415 / 3515 3675 / 3675
Balance 1394.2 / 1453.3 477.5 / 509.9 40.6 / 40.6
[2025-02-11 06:11] LABS: Glucose - Point of Care 133 mg/dl (70-99)
[2025-02-11] MEDS: HEPARIN 25000 UNITS/250 ML IV ×2 (07:08→22:14)
--- NOTE | 2025-02-11 07:24 | W.PN.INTV ---
Today's Communication / Plan
Recommendations
Persistent fevers concerning
Blood cultures, urine culture. Chest x-ray today without acute findings
Consult infectious disease. Remains on micafungin/Zosyn
Amiodarone drip continues
Tolerating TPN, follow blood sugars
Assessment
-
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
thromboembolic occlusion of the right iliac system s/p thromboembolectomy of the right iliac system + thromboembolectomy of the right SFA, popliteal artery and profundo-femoral artery (10/2024) who presents with abdominal pain and SOB. He was in
his usual state of health GOLDBEATER when he developed sudden periumbilical abdominal pain without nausea or vomiting. In the ER he was afebrile to 98.2 �F, pulse rate 135, breathing at 12 breaths/min, BP 162/110 and saturating 97% on room air. Initial
labs showed potassium 2.9, lactate 5.2, T. bili 2.1, and proBNP 4580. CTA A/P showed thrombosis of the SMA with small bilateral pleural effusions and groundglass attenuation in the bases of the lungs. He was given 40 mg IV Lasix in the ER,
Dilaudid 0.5 mg, potassium repletion, 1 L NS 0.9% and Zofran. Vascular surgery was consulted and given his significant abdominal pain of acute onset he was consented for the OR. He underwent exploratory laparotomy with thromboembolectomy of
superior mesenteric artery and placement of an AbThera VAC. Postoperatively he returned to the ICU intubated, and Sales Administration Specialist services consulted for additional management/recommendations. Patient was extubated and improved, and subsequently
downgraded to the IMU on 01/31. He was downgraded to telemetry on 02/04 where he has been managed. Unfortunately on 02/05 he developed a small bowel obstruction. On 02/07, repeat CT A/P showed free air in the abdomen indicating a perforated viscus.
He went to the OR for an ex lap with small bowel resection and placement of an ABThera wound VAC, and is now transferred back to the ICU intubated.
Chronic conditions GOLDBEATER: Paroxysmal a-fib on Eliquis, hyperthyroidism, chronic HFrEF, left lower extremity arterial occlusion due to thromboembolism (06/2023)
Assessment and plan:
#1. Small bowel perforation with mesenteric ischemia and SMA occlusion s/p ex lap with small bowel resection, lysis of adhesions and placement of ABThera wound VAC (POD #3)
- Patient did go back to the OR on 02/08/2025 for an ex lap with abdominal washout and mesenteric angiography (no cultures sent)
- Postoperative management as per colorectal surgery
- Pain control
- Continue NGT on low continuous wall suction as his bowel is in discontinuity per colorectal surgery
- Continue heparin drip as per colorectal surgery given his SMA occlusion
- Lactate is 1.1 as of 02/09--> no need to continue trending
- Trend H&H and transfuse to keep Hb >7 g/dL; also keep platelets >50 K
- Plan for wound closure today in OR
#2. Ventilator dependent respiratory failure
- Continue with mechanical ventilation with daily SAT/SBT if clinically appropriate --> of note he is going back to OR tomorrow (02/11), hence would rather wait until after OR to do SAT/SBT given he will be re-intubated for this procedure
- Vent adjustments based on daily blood gas
-Chest x-ray 02/01 without acute findings, ET tube appropriate
- Titrate FiO2 + PEEP to maintain SpO2 >90-94%
- Keep plateau pressure <30
- ETT suctioning as needed
- Aspiration precautions
- Lightly sedated with goal RASS 0 to -2
#3. Circulatory shock
- Likely related to sedation with septic shock in the setting of A-fib with RVR and HFrEF
- Continue with Levophed and titrate down as tolerated while keeping MAP >65
- Trend WBC and monitor for fevers
- Also CT A/P from 02/07/2025 still shows circumferential wall thickening in the distal small bowel suggestive of enteritis
- Started micafungin on 02/08 given his bowel perf. Also remains on Zosyn
- Exchanged candelaria on 02/08 given nicole colored urine coming out of candelaria on 02/08, and has been present for >7-10 days
will have infectious disease evaluate given persistent fevers
Cultures today negative,
Reculture with fever, blood, urine
#4. Acute mesenteric ischemia with SMA occlusion, likely embolic, s/p ex lap with SMA embolectomy (on 01/27/2025), followed by delayed abdominal wall closure with ex lap and partial omentectomy (on 01/28/2025)
- Continue heparin infusion as per CRC
- NG to suction as stated above, await return of bowel function
to OR today for wound closure
#5. Acute on Chronic heart failure with reduced ejection fraction, LVEF 10 to 15% with history of occlusive thrombus in MELISSA in the past
-Likely the source of embolic event to SMA
-Monitor input and output closely
-Lasix now on hold (last dose 02/07) - re-assess daily (will give a dose now as CXR shows that he is becoming volume overloaded on 02/10)
#6. Atrial fibrillation with rapid ventricular rate
- Continue amiodarone gtt
- Now off cardizem gtt
- IV lopressor on hold
- Cardiology service on case
- Heparin drip for anticoagulation
- Switch to oral meds once able to take PO
#7. Hyperglycemia
- HbA1c 6.3 on 01/27/2025
- Started insulin drip on 02/08 given he is critically ill with hyperglycemia - this is now weaned off; will resume ISS q6hr
#8. Abnormal urinalysis concerning for UTI
- UA on 02/05/2025 was positive for nitrites, with +1 leukocyte esterase and 6�10 urine WBC
- Ceftriaxone changed to Zosyn on 02/07/2025 in setting of small bowel perforation with sepsis
Gi Prophylaxis: PPI IV
DVT ppx: Heparin gtt
Continue ICU level care for this critically ill patient.
Critical care statement: A total of 35 minutes of critical care time was provided for this patient today. This includes management of unstable vital signs, evaluation of the patient at bedside, reviewing the patient's pertinent medical records
including radiographs, microbiology, laboratory evaluations, and discussion with primary team, consultants, pharmacy, nutrition, physical therapy, case management, charge nurse, critical care nursing, and respiratory therapy.
Data:
CTA Abd/Pelvis w/wo IV contrast 01/27/2025:
Thrombosis of superior mesenteric artery branches, new since prior examination.
No bowel thickening or pneumatosis to suggest bowel ischemia.
No acute inflammatory changes within the abdomen or pelvis.
Mild diverticulosis without acute diverticulitis.
Stable fatty infiltration of liver. Stable low-attenuation right adrenal mass 1.3 cm, most consistent with benign adenoma.
Hazy attenuation in the dependent lung bases. Groundglass attenuation. Small bilateral pleural effusions. Possible mild pulmonary edema and/or atelectasis.
CT A/P w IV and oral contrast 02/07/2025:
New mild intraperitoneal free air indicating a perforated viscus. The exact location is difficult to discern, but distribution of free air greatest in the anterior mid to upper abdomen near the persistently dilated proximal small bowel loops that
again contain air-fluid levels. Long segment distal small bowel smaller in caliber with circumferential wall thickening suggestive of an enteritis.
Subjective Dataa
Subjective Data
Date of Service:
Date of Service: February 11, 2025
Chief Complaint: Sales Administration Specialist Follow Up
Subjective:
Patient remains critically ill. Heparin drip, amiodarone drip, TPN continues. Remains on volume-cycled ventilation, persistent fevers noted, Tmax 101.7. Patient does move extremities spontaneously
Objective Data
Data Reviewed
Vital Signs / I&O / Oxygen:
Vital Signs
Temp Pulse Resp BP Pulse Ox
101.0 F H 88 19 116/54 100
02/11/25 04:23 02/11/25 06:00 02/11/25 06:00 02/10/25 09:51 02/11/25 07:15
Intake and Output
02/10/25 02/11/25 02/12/25
06:59 06:59 06:59
Intake Total 3892.5 / 4024.9 3937.5 / 3937.5
Output Total 3415 / 3515 4790 / 4790
Balance 477.5 / 509.9 -852.5 / -852.5
SaO2 [A/C] 99
SaO2 100
Nasal Cannula flow liters per 2
minute
Physical Exam
General: Comfortable and Other (Left upper extremity midline, right upper extremity PICC)
HEENT: Normocephalic and Other (ETT in place)
Cardiovascular: S1-S2, Irregular Rhythm (Irregularly irregular), Murmur (n), Rub (n) and Peripheral Edema (negative)
Respiratory: Wheeze (negative), Crackles (n), Rhonchi (negative), Stridor (negative) and ET Tube (Mechanical breath sounds heard bilaterally)
GI: Soft, Distended (less distended ), Other (Hypoactive bowel sounds) and Other (Wound VAC on mid-abdomen)
Neurology: No Motor Deficits (Spontaneously moving extremities) and Other (Sedated)
Skin: Warm, Dry, Cyanosis (negative) and Rash (n)
Labs/Micro/Reports
Lab Data
02/11/25 04:18
02/11/25 04:18
Laboratory Results
02/10/25 02/11/25 02/11/25
06:00 04:17 04:18
APTT 81.2 H
pH Cancelled 7.39
pCO2 Cancelled 44
pO2 Cancelled 118 H
HCO3 Cancelled 26.6
O2 Delivery Level Cancelled
Microbiology
02/07/25 18:36 Blood/Venous Blood Culture - Preliminary
No Growth in 72 hours- Final report to follow
02/09/25 09:21 Urine Urine Culture - Preliminary
NO GROWTH
[2025-02-11] MEDS: PROTONIX IV 40 MG IV (07:51)
[2025-02-11] MEDS: NSS (PRESERVATIVE FREE) 10 ML IV (07:51)
[2025-02-11 08:06] VITALS: BP 126/67
--- NOTE | 2025-02-11 08:47 | PTCARENOTE ---
Assumed care of patient from night RN 07:15. Pt rec'd intubated and sedated on vent. Pt occasionally grimaces to repositioning/care. Pt follows commands and responds to verbal stimuli. DRAKE. Bilateral wrist restraints in place for safety. Heels
elevated on pillows. S1 S2 irregular w/ afib on monitor. Weak PP's. Trace/+1 generalized edema. Knee hi SCD's on. #8 ETT 28cm right lip. Current vent settings: 18/500/+5/40%...sats 100%. Lungs diminished. No cough noted, oral care performed
by RT. Abdomen round...tender to palpation. Wound vac in place draining large amount serous drainage. No BS. Right nare [place] (75cm) -> LIWS...draining green liquid. Irrigated w/ 30mls of tap water (per MD order). Temp sensing candelaria draining
nicole urine with adequate output. Candelaria care done. Skin sallow in color. Protective sacral foam intact. Left radial jonh...flushed and zeroed, correlated with left fa non invasive cuff. Left midline. Multiple left arm INT's. Right DL PICC.
TPN, levo, amiodarone, propofol, fentanyl, heparin infusing, see worklist. Meds and assessment as documented. Safe environment confirmed. Plan discussed with medical coordinator pesticide use, attending and surgeon. Pt for tentative abd closure with Dr. Wyatt this
afternoon at 16:00. Hep to be held at 10:00. Ongoing close monitoring continues.
--- NOTE | 2025-02-11 08:55 | W.PN.CRS1 ---
Today's Communication / Plan
-
as below
Assessment/Plan
-
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
POD 3 take-back, abdominal washout, replacement of vac
POD 4 exlap, SBR of ~120cm, left in discontinuity and open due to worsening septic shock, placed abthera vac
POD 13 takeback, abdominal closure
POD 14 ex lap SMA thromboembolectomy by Dr. Wilkerson; intraoperative consult for mesenteric ischemia without overt signs of necrosis
Tmax 101.7, VSS, off pressors
WBC 14.9 from 12.7, Hb 10.4 from 10.7, CR 1.1
-- Mesenteric ischemia with perforation and 120cm of necrotic bowel
-Will take back to OR this afternoon for possible anastomosis and abdominal closure
-Will speak with mother or brother
-Appreciate ICU
-Cont vent
-Cont fent/prop
-MAP >65
�Continue n.p.o. with NGT
� Continue TPN until tolerating solid food
�Continue hep drip, hold at 10am
� Continue Zosyn and micafungin; f/u cultures
� Appreciate hospitalist
Subjective Data
Procedure
01/27/2025- Ex lap, SMA embolectomy
Subjective Data
Date of Service: February 11, 2025
Per nurse, no overnight events. He has been weaned off of the Levophed. He has been making good urine output. He has been febrile and getting Tylenol.
Objective Data
-
Vital Signs
Temp Pulse Resp BP Pulse Ox
101.1 F H 91 18 126/67 99
02/11/25 07:00 02/11/25 08:06 02/11/25 08:06 02/11/25 08:06 02/11/25 08:06
Intake & Output
02/10/25 02/11/25 02/12/25
06:59 06:59 06:59
Intake Total 3892.5 / 4024.9 3937.5 / 4066.1 357.2 / 357.2
Output Total 3415 / 3515 4790 / 4890 185 / 185
Balance 477.5 / 509.9 -852.5 / -823.9 172.2 / 172.2
Intake:
IV fluids (Total) 1855.5 / 1929.9 1730.5 / 1801.1 141.2 / 141.2
Amiodarone 400.8 / 417.5 400.8 / 417.5 33.4 / 33.4
Fentanyl 180.0 / 187.5 180.0 / 187.5 15.0 / 15.0
Heparin 768 / 800 768 / 800 64 / 64
Insulin 17.6 / 17.6 0 / 0
Levophed 143.5 / 147.3 36.1 / 36.1
Propofol 345.6 / 360.0 345.6 / 360.0 28.8 / 28.8
IV piggybacks 570 / 570 635 / 635 100 / 100
TPN/PPN 1287 / 1345 1392 / 1450 116 / 116
Amount instilled into GI Tube ( 180 / 180 180 / 180
Total)
[place] Sump 180 / 180 180 / 180
Output:
Drain Output (Total) 950 / 950 650 / 650
Abdomen Wound Vac 950 / 950 650 / 650
Gastrointestinal tube output ( 660 / 660 450 / 450
Total)
[place] Sump 660 / 660 450 / 450
Urine, Wilkerson 1805 / 1905 3690 / 3790 185 / 185
Lab Results
02/11/25 04:18
02/11/25 04:18
Physical Exam
-
General: No Acute Distress and Other (Intubated and sedated)
HEENT: Grossly Normal and Other (NGT with 450 bilious output)
Abdomen: Soft, Non Distended, Tender (Appropriately tender), No Guarding, No Rebound and Other (ABThera VAC functioning with serous output)
Skin: Warm and Dry
--- NOTE | 2025-02-11 09:09 | PTCARENOTE ---
Epifanio administered for temp 101.1, see worklist. Dr. Wyatt confirmed he wants NG suction to low continuous. Adjustment made.
[2025-02-11] MEDS: MYCAMINE 105 MG IV (09:33)
--- NOTE | 2025-02-11 09:39 | W.PN.CARDCBS ---
Today's Communication / Plan
-
His abdomen remains open. He will be going back to the operating room February 11 4 PM.
He bp remains stable. He is now off Levophed.
Remains septic and critically ill. Remains febrile. Continue TPN and supportive care
Continue IV heparin with known thromboembolic event.
His ventricular rates are stable overall
Continue IV amiodarone gtt
IV Lopressor if needed for additional rate control.
Remains anemic, hemoglobin is at 10.4 february 11. Continue to follow. Creatinine is normal at 1.1 on 02/11/2025
His weight has increased and now coming down after Lasix 40 mg IV x 1 February 10. Will cont to monitor wts.
He has had 3 cardiac embolic events in the past 9 months felt to be due to noncompliance. Continue IV heparin and eventually restart Eliquis.
Impression / Plan
-
.
Primary Outside Food Server: Dr. Pickett
Primary EP: Dr Solorio
PCP: Dr Peñaloza
HPI: Patient with history of cardioembolic occlusion of left common femoral artery 06/2023, right iliac artery occlusion status post thromboembolectomy 10/29/2024. During that time was also noted to be in persistent rapid A-fib initially discovered
07/2023 with history of noncompliance with medications. Also with known low EF suspected tachycardia mediated status post cath 05/2024 with nonobstructive CAD.
He presented back to the ED 11/2024 due to generalized malaise and was noted to have a seroma of his right groin s/p I/D and wound vac. He was also found to be in decompensated heart failure with reduced ejection fraction and have atrial
fibrillation with rapid ventricular rates. Plan for LUIS ENRIQUE cardioversion but LUIS ENRIQUE 01/04/2025 showed massive occlusive thrombus in left atrial appendage. Most recently, presented on 01/27/2025 with acute onset abdominal pain found to have acute
mesenteric ischemia with SMA occlusion, went to OR for exploratory laparotomy and SMA thrombectomy. Postop shock with metabolic/lactic acidosis, on Levophed and intubated. Cardiology consulted for management of atrial fibrillation and heart failure
Impression:
Acute mesenteric ischemia with SMA occlusion, status post exploratory lap and SMA thrombectomy 01/27/2025 and redo OR 02/07/2025 and OR 02/08/2025
Acute hypoxemic respiratory failure
Shock with metabolic/lactic acidosis
Right groin seroma
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
Persistent atrial fibrillation, first discovered July 2023
Non-[place] myocardial injury
Chronic OAC with eliquis
Left atrial appendage thrombus by LUIS ENRIQUE 12/2024
Chronic HFrEF
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
NSVT
Hyperthyroidism
Noncompliance
Depression
History of ETOH and tobacco abuse
Obesity
Ventilator dependent respiratory failure
ECHO 04/04/2024: EF 10 to 15%, severe global hypokinesis, mild MR, trace TR, PAP 30 to 33 mmHg
Cardiac catheterization 05/22/2024: Nonobstructive coronary disease with normal to mildly elevated right and left-sided filling pressures with normal cardiac output
Echocardiogram 10/30/2024: Severely dilated left ventricle, severely reduced LV systolic function, global hypokinesis with ejection fraction of 5-10%, moderate to severe eccentric TR with PA pressure of 30-35 mmHg, small pericardial effusion.
LUIS ENRIQUE 01/04/2025: LVEF 10 to 15%, definite massive occlusive thrombus in left atrial appendage, mild MR, moderate to severe TR
Plan:
His abdomen remains open. He will be going back to the operating room February 11 4 PM.
He bp remains stable. He is now off Levophed.
Remains septic and critically ill. Remains febrile. Continue TPN and supportive care
Continue IV heparin with known thromboembolic event.
His ventricular rates are stable overall
Continue IV amiodarone gtt
IV Lopressor if needed for additional rate control.
Remains anemic, hemoglobin is at 10.4 february 11. Continue to follow. Creatinine is normal at 1.1 on 02/11/2025
His weight has increased and now coming down after Lasix 40 mg IV x 1 February 10. Will cont to monitor wts.
He has had 3 cardiac embolic events in the past 9 months felt to be due to noncompliance. Continue IV heparin and eventually restart Eliquis.
His severe LV dysfunction is likely tachycardia mediated and related to noncompliance.
Long-term plan would likely be to repeat transesophageal echo (given large occlusive thrombus in left atrial appendage) if he recovers from abdominal procedures and then make a plan regarding risk of ablation.
Discussed with nursing.
Critical care time 30 min
Progress Note - Outside Food Server
Subjective
Date of Service: February 11, 2025
Patient seen and examined. Sedated on vent.
Objective
Labs:
02/11/25 04:18
02/11/25 04:18
Labs
Hgb 10.4 g/dL (13.0-18.0) L 02/11/25 04:18
Hct 32.3 % (39.0-52.0) L 02/11/25 04:18
Plt Count 218 10^3/uL (130-400) 02/11/25 04:18
PT 18.0 Sec (11.4-14.6) H 01/28/25 06:36
INR 1.46 01/28/25 06:36
APTT 81.2 Sec (23.4-35.0) H 02/11/25 04:18
Sodium 141 mmol/L (135-145) 02/11/25 04:18
Potassium 4.1 mmol/L (3.5-5.1) 02/11/25 04:18
BUN 45 mg/dl (9-20) H 02/11/25 04:18
Creatinine 1.1 mg/dL (0.7-1.3) 02/11/25 04:18
Glucose 137 mg/dl (70-99) H 02/11/25 04:18
Vital Signs and I&O:
Vital Signs
Temp Pulse Resp BP Pulse Ox
101.1 F H 91 18 126/67 99
02/11/25 07:00 02/11/25 08:06 02/11/25 08:06 02/11/25 08:06 02/11/25 08:06
Vital Signs
Temp Pulse Resp BP Pulse Ox
101.1 F H 91 18 126/67 99
02/11/25 07:00 02/11/25 08:06 02/11/25 08:06 02/11/25 08:06 02/11/25 08:06
Intake & Output
02/09/25 02/10/25 02/11/25 02/12/25
06:59 06:59 06:59 06:59
Intake Total 3564.2 / 3698.3 3892.5 / 4024.9 3937.5 / 4066.1 520.8 / 520.8
Output Total 2170 / 2245 3415 / 3515 4790 / 4890 220 / 220
Balance 1394.2 / 1453.3 477.5 / 509.9 -852.5 / -823.9 300.8 / 300.8
Physical Exam
Physical Exam
General: Sedated on vent
Neck: Negative JVD
Heart: Irregular irregular, Negative S3 positive S1/S2, Negative S4, No murmur
Lungs: CTA b/l, negative wheezes/rales/rhonchi
Abd: Positive BS, NT/ND, neg rebound/rigidity/guarding
Ext: Negative cyanosis/clubbing/edema
Neuro: nonfocal
--- NOTE | 2025-02-11 10:00 | PTCARENOTE ---
Heparin gtt placed on hold [address] Wyatt.
--- NOTE | 2025-02-11 10:40 | PN.DE.MGMTRT ---
Insulin Management
- -
02/11/2025: Diabetes Management Follow up
Patient admitted 01/27 with abdominal pain and SOB PMH: A-fib, hyperthyroidism, chronic HFrEF, LLE arterial occlusion due to thromboembolism (06/2023), h/o acute limb ischemia of RLE with thromboembolic occlusion of the right iliac system s/p
thromboembolectomy of the right iliac system + thromboembolectomy of the right SFA, popliteal artery. Prior to admission was taking Jardiance 10mg daily. A1C 6.3%, Cr 1.1, eGFR >60.
CTA showed thrombosis of the SMA s/p ex lap with thromboembolectomy of SMA and placement of an AbThera Vac 01/27/25. Postoperatively he was started on the glycemic protocol due to hyperglycemia.
Pt is intubated and sedated, unable to discuss diabetes care plan, sister at bedside, all questions answered.
POD #4 s/p exploratory laparotomy with small bowel resection.
POD# 12 exploratory laparotomy, mesenteric angiography, partial omentectomy, tap block, abdominal closure
Remains NPO, on TPN. Transitioned off glycemic protocol on 02/10 at 7AM to moderate corrective Q6 hrs
Glucose stable and in range, 123 to 148, FBG 137 this AM
Will make no changes to current regimen: Cont moderate corrective Q6 hrs
Discussed with nurse. Will cont to follow.
Diabetes History
- -
Pre-Admission Diabetes Regimen
02/11/25
04:18
Creatinine 1.1
Lab Results
Hemoglobin A1c 6.3 % (4.0-5.6) H 01/27/25 14:42
Insulin Pump Settings
IP Diabetes Regimen
02/10/25 02/10/25 02/10/25
11:43 17:44 23:58
Glucose
POC Glucose 148 H 123 H 125 H
02/11/25 02/11/25
04:18 06:00
Glucose 137 H
POC Glucose 133 H
Patient Education
[2025-02-11 11:09] LABS: COVID-19 Antigen Negative (Negative)
[2025-02-11 11:38] LABS: Glucose - Point of Care 124 mg/dl (70-99)
--- NOTE | 2025-02-11 11:57 | PTCARENOTE ---
Pt reassessed, VSS, calm on current gtts, no vent alarms, oral care and pericare provided, maintaining Q2T. Pt remains febrile to 101.1, no response to Ofirmev dose given this am. Per Email Marketing Manager, ID consult added. Flu and Covid swabs obtained and
sent per orders. Safe environment maintained.
[2025-02-11 13:36] LABS: Urine Albumin 2+ (Neg - Trace); Urine Bilirubin 2+ (Negative); Urine Character Clear (Clear); Urine Color Yellow; Urine Glucose Negative (Negative); Urine Ketone Negative (Negative); Urine Leukocyte Negative (Negative); Urine Nitrite Negative (Negative); Urine Occult Blood Negative (Negative); Urine Specific Gravity 1.015 (<1.030); Urine Urobilinogen Negative (Neg - 1+)
--- NOTE | 2025-02-11 14:04 | CON.ID ---
Consultation
-
Date/Time Consultation Requested: 02/11/2025 1031
Date/Time Consultation Performed: 02/11/2025 1350
Requesting Provider: Dr. Crockett
Performing Provider: Dr. Bruno
Reason for Consultation: Abdominal infection
Chief Complaint / Past History
History of Present Illness
Buster Velazquez is a 59-year-old man being evaluated at the request of Dr. Crockett in regards to abdominal infection. History is obtained from chart review alone, as patient is currently sedated and intubated.
The patient initially presented to [facility] ER on 01/27/2025 complaining of sudden onset mid abdominal pain. At that time he noted lightheadedness but denied any chest pain, shortness of breath or leg pain.
Hospital course has been significant for the finding of an SMA occlusion along with mesenteric ischemia requiring exploratory lap and SMA thrombectomy on 01/28/2025. At that time, he was placed on IV antibiotics (Zosyn) which continued through 02/02.
The patient was taken back to the OR on 01/29 for abdominal closure, and again on 02/07 secondary to pneumoperitoneum, mesenteric ischemia and recurrence of SMA occlusion. He underwent exploratory lap and small bowel resection. Zosyn was restarted
at that time and has continued to the present. Additionally, micafungin was initiated on 02/08/2025. White count has increased over the past 5 days. Infectious Diseases is asked to comment upon further antimicrobial management.
Past History
Additional Past Medical History:
Severe dilated cardiomyopathy (EF~ 5-10%)
A-fib
Additional Past Surgical History:
Appendectomy
Left lower extremity thrombectomy (2022)
Right lower extremity thrombectomy (2023)
Allergy History:
No Known Allergies Allergy (Verified 01/27/25 00:21)
Medications Reviewed: Yes
Current Antibiotics:
Zosyn 3.375 g IV every 6 hours
Micafungin 100 mg every 24 hours
Social History
Tobacco: Smoker
Alcohol: Occasional
Drug: None
Personal: Single
Living: Alone
Family History
Family History: Not Pertinent
Review of Systems
Vital Signs
Temp Pulse Resp BP Pulse Ox
101.1 F H 91 18 126/67 100
02/11/25 07:00 02/11/25 11:00 02/11/25 11:00 02/11/25 08:06 02/11/25 12:00
Physical Exam
Physical Exam
Constitutional: Acutely Ill and Non-toxic
Head: Normocephalic and Other (ET tube in place.)
Eyes: Pupils Equal, Pupils Round and Other (Scleral icterus)
Cardiovascular: Regular Rate and S1/S2; Negative S3/S4
Pulmonary: Non Labored
Gastrointestinal: Soft, Distended, Decreased Bowel Sounds, No Rebound and Other (Large abdominal wound with VAC in place)
Genito-Urinary: Wilkerson and Clear Urine
Extremities: Edema; Negative Cyanosis or Erythema
Skin: Warm, Dry and Jaundice
Neurological: Other (Sedated)
Lines: PICC (Right upper extremity)
Lab / Diagnostic Study Results
02/11/25 04:18
02/11/25 04:18
Abs Immat Gran (auto) 0.2 10^3/uL (0-0.05) H 02/05/25 00:32
Absolute Neuts (auto) 6.7 10^3/uL (1.4-6.5) H 02/05/25 00:32
Absolute Lymphs (auto) 0.6 10^3/uL (1.2-3.4) L 02/05/25 00:32
Absolute Monos (auto) 0.7 10^3/uL (0.1-0.6) H 02/05/25 00:32
Absolute Basos (auto) 0.1 10^3/uL (0-0.2) 02/05/25 00:32
Immature Gran % 1.8 % (0-0.5) H 02/05/25 00:32
Neutrophils % 80.3 % (42.2-75.2) H 02/05/25 00:32
Lymphocytes % 7.5 % (20.5-51.1) L 02/05/25 00:32
Monocytes % 8.5 % (1.7-9.3) 02/05/25 00:32
Eosinophils % 0.8 % (0-6) 02/05/25 00:32
Basophils % 1.1 % (0-2) 02/05/25 00:32
PT 18.0 Sec (11.4-14.6) H 01/28/25 06:36
INR 1.46 01/28/25 06:36
Lactic Acid 1.1 mmol/L (0.7-2.0) 02/09/25 04:00
Urine WBC 6-10 /HPF (0-5) A 02/05/25 18:33
Ur Squamous Epith Cells 0-2 /LPF (Few) 02/05/25 18:33
Microbiology Results
Micro:
02/11/25 13:11 Blood Culture - Pending
Blood/Venous
02/11/25 10:41 Influenza Types A & B (SHERLYN) - Final
Nasal Swab Negative for Influenza A & B, NAAT
Negative results must be combined with clinical observations
and patient history.
Nucleic Acid Amplification test (NAAT)performed on the
[employer] platform.
02/09/25 09:21 Urine Culture - Final
Urine NO GROWTH
02/07/25 18:36 Blood Culture - Preliminary
Blood/Venous No Growth in 72 hours- Final report to follow
01/27/25 12:14 Blood Culture - Final
Blood/Venous No Growth - Final Report
01/27/25 21:32 MRSA Screen - Final
Nose No Methicillin Resistant Staphylococcus aureus isolated.
Imaging:
02/11/2025 CXR (portable): Hazy opacification along both lower lungs without significant change. No significant pleural effusion is noted.
Assessment / Plan
Ongoing fevers
Leukocytosis
Mesenteric ischemia with perforation and necrotic bowel
VDRF
Severely dilated cardiomyopathy
Hx A-fib
Recommendations:
Looking back, fevers have been ongoing since 02/07, when Zosyn was restarted.
Multiple possible etiologies of fever and leukocytosis, including drug fever, versus ongoing abdominal process.
Transition antibiotic therapy to meropenem
Check C. difficile (nursing has noted diarrhea.)
Follow white count and temperature curve.
Review of chart indicates patient may go back to the OR later today. If possible, would check abdominal washings
Patient currently critically ill on vent support in ICU
--- NOTE | 2025-02-11 14:29 | PTCARENOTE ---
Addendum entered by Kasie Walsh RN 02/11/25 15:11:
C-diff negative result noted.
Original Note:
Pt with large liquid BM, sent for C-diff per ID. Enhanced precautions placed.
[2025-02-11 15:15] LABS: Urine Amorphous Seen
--- NOTE | 2025-02-11 15:15 | CM ---
CM following re: discharge planning.
Reviewed pt's chart, met with pt.
Per Rounds meeting pt intubated yesterday, remains intubated, colorectal surgery following, continue supportive care.
Pt lives in an apartment/rented room, , 2nd floor, 2FF of steps to get to his apartment. Pt has no children, has 4 brothers, 3 sisters and a mother, one brother lives with mother and brother Jag lives in [facility]. Pt has supportive friend
Angie. 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
D/C plan: [facility] when medically stable.
CM will follow with discharge plan updates as hospitalization progress
[2025-02-11 15:16] LABS: Urine Hyaline Cast 0-2 /LPF (0-2); Urine Red Blood Cell 0-2 /HPF (0-2)
--- NOTE | 2025-02-11 15:25 | PTCARENOTE ---
Pt sent to OR with team at 15:00.
--- NOTE | 2025-02-11 17:06 | W.IMMPOSTOP ---
Addendum entered and electronically signed by Brian Wyatt MD 02/11/25 17:56:
updated brother, Jag, over the phone
Original Note:
Surgical Immed Post Op Note
-
Primary Surgeon: Brian Wyatt MD
Assisting Surgeon: QUE Gan
Pre-op Diagnosis: mesenteric ischemia, open abdomen, SMA occlusion
Post-op Diagnosis: mesenteric ischemia, open abdomen, SMA occlusion
Procedure Performed: exlap, small bowel anastomosis, abdominal wall closure, bilateral cutaneous advancement flaps
Anesthesia Type: general
Specimen / Cultures: aerobic, anaerobic and fungal cultures
Estimated Blood Loss: 50mL
UOP: 50mL
IVF: 1.0L
Complications: none
Operative Findings: serosanguinous/murky ascites sent for culture; well-perfused bowel from stomach to proximal rectum; right colon remained pale with fibrinous exudate, but no necrosis or ischemia; performed [id number] small bowel anastomosis;
washed with 1.5L of warm saline; measured at least 200cm of small bowel remaining from treitz to treves; covered anastomosis with omentum; fascia was a little tight so raised cutaneous advancement flaps of about 5-6cm bilaterally and fascia came
together without tension; closed fascia with interrupted 0 PDS in [id number]; placed 19Fr dick in subcutaneous space; closed with bry and aquacel
--- NOTE | 2025-02-11 17:16 | OR.RPT ---
Operative Report
Operative Report
DATE OF OPERATION: 02/11/2025
SURGEON: Brian Wyatt MD
PREOPERATIVE DIAGNOSIS: Mesenteric ischemia, open abdomen, SMA occlusion
POSTOPERATIVE DIAGNOSIS: Mesenteric ischemia, open abdomen, SMA occlusion
OPERATION: Exploratory laparotomy, small bowel anastomosis, bilateral cutaneous skin flaps, abdominal wall closure
ASSISTANTS:
1. QUE Gan
ANESTHESIA: General
ESTIMATED BLOOD LOSS: 50 mL
UOP: 50 mL
IVF: 1.0 L
FINDINGS:
1. Bowel perfusion significantly improved from prior takeback; right colon remained pale with fibrinous exudate but no signs of ischemia or necrosis
2. Proximal and distal limbs of small bowel appeared well-perfused; performed [id number] stapled anastomosis
3. Liver remained dark/dusky, consistent with shock liver
SPECIMENS:
1. Ascites cultures�aerobic, anaerobic, fungal
DRAINS: 19 [place] Chu drain in subcutaneous space
COMPLICATIONS: No immediate complications.
INDICATIONS: The patient is a 59-year-old male who initially presented with SMA occlusion and underwent SMA thromboembolectomy with vascular surgery. Due to questionable bowel ischemia, he was left open. The following day, his bowel appeared
well-perfused and the abdomen was closed. Postoperatively, he developed a delayed return of bowel function. Ultimately, he was found to have a bowel perforation with 120 cm segment of necrotic small bowel. This was resected and the patient was
left open due to septic shock. He underwent a second look takeback the following day due to initial improvement of his pressor requirement followed by subsequent worsening with fevers. The bowel at that time appeared perfused with Dopperable
signals throughout the mesenteric vasculature. He was again left open due to septic shock. Over the last 2 days, he has been weaned off the pressors and his acidosis has resolved. Therefore, I recommended takeback for possible bowel
reconstruction and abdominal wall closure. Although the patient remained febrile with evidence of shock liver, the bilirubin was stable and the fever was unlikely related to the abdomen. The operation was discussed with the patient's brother, Jag Abarca"Congaro, in detail, including the risks, benefits and alternatives. Risks described included, but not limited to, bleeding, infection, anastomotic complication (if created), damage to nearby structures, need for additional resection, need for open
abdomen and subsequent surgeries, need for ostomy, short-bowel syndrome and anesthetic risks, including but not limited to NM, stroke, DVT/PE, respiratory failure and . The patient's brother understood and agreed to proceed. Consent was taken
over the phone and witnessed by the office Jinny LR.
PROCEDURE IN DETAIL: The patient was taken to the operating room and placed on the operating table in supine position. Sequential compression devices were placed bilaterally. General anesthesia was induced. The patient was previously intubated. The
patient was placed in supine position with the bilateral arms secured to the armboards in extended position. Pressure points were padded. Wilkerson and nasogastric tube were already in place preoperatively. Patient was on standing IV antibiotics.
The outer layer of the ABThera wound VAC was removed. The abdomen was prepped and draped in a sterile fashion. A time-out was performed verifying the correct patient, procedure, operative site, positioning, and special equipment.
The inner layer of the ABThera wound VAC was removed. The abdomen was explored. The liver remained dusky/dark similar to the last operation, but this appeared stable. The gallbladder appeared perfused. The omentum was retracted over the
transverse colon. The small bowel was mildly dilated and well-perfused. Interloop adhesions and adhesions to the omentum were delicately freed with blunt dissection. The ascites appeared mostly clear with a murky serosanguineous quality. Per the
recommendation of infectious disease, I swabbed the ascites for aerobic, anaerobic and fungal cultures. There was no area of purulence or bowel contamination. The bowel was run from the ligament of Treitz to the ligament of Treves. The entire
length of the small bowel appeared well-perfused without evidence of ischemia or necrosis. This was a significant improvement from the last operation. The right colon extending from the cecum to the hepatic flexure again appeared pale but with
fibrinous exudate. However, there was no doubt that this area was not ischemic or necrotic. Therefore, I left this alone. The transverse colon down to the proximal rectum was evaluated and appeared well-perfused without ischemia or necrosis. The
stomach and duodenum also appeared well-perfused without ischemia or necrosis.
The two ends of the small bowel were evaluated and appeared well-perfused. Therefore, I elected to proceed with the small bowel anastomosis. I draped the operative field with blue towels. I aligned the 2 limbs in a [id number]-eb-[id number] manner. I cut off
the corner of the staple lines with the Velasquez scissors and ensured entry into the bowel. Bowel contents were immediately suctioned. The AHMET stapler with a purple load was advanced and the antimesenteric portion of both limbs were oriented next to
each other. The stapler was clamped and held for 1 minute. The bowel was then stapled and divided. The common channel was evaluated and no bleeding was noted. The common enterotomy was reapproximated with Allis clamps and stapled closed with a
TA 60 stapler. There was oozing from the staple lines, which was controlled with 3-0 Vicryl's. The mesenteric defect was closed with a running 2-0 Vicryl. A crotch stitch of 3-0 Vicryl was placed. The blue towels and dirty instruments were
passed off and gloves were changed. The area was washed with 1.5 L of warm saline.
The operative field was evaluated once more and hemostasis was assured. The omentum was draped over the small bowel. Using Neida clamps, I estimated the tension on the abdominal wall. There did appear to be some tension. Therefore, I proceeded
with raising cutaneous advancement flaps of about 5 to 6 cm bilaterally. After this maneuver, the fascia came together without tension. I closed the fascial layer in succession using interrupted 0 PDS in [id number] fashion, while checking
with anesthesia to ensure no increase in peak pressure. Any perceived fascial gaps were closed with a simple interrupted 0 PDS stitches. The subcutaneous space was irrigated. Hemostasis was checked once more in the subcutaneous space and assured.
A 19 [place] Chu drain was introduced through the skin of the right upper quadrant and placed in the subcutaneous space. This was secured to the skin with 2-0 nylon. The skin was then closed with bry and dressed with Aquacel dressing.
At this point, the procedure was complete. The patient was left intubated. All needle, sponge and instrument counts were reported as correct. The patient tolerated the procedure well and was transferred to the recovery room in stable condition with
nasogastric tube and Wilkerson in place.
DICTATED BY: Brian Wyatt MD
[2025-02-11] MEDS: MERREM 500 MG IV ×2 (17:30→21:22)
[2025-02-11] MEDS: STERILE WATER FOR INJECTION 10 ML IV ×2 (17:30→21:22)
[2025-02-11 17:52] LABS: Glucose - Point of Care 162 mg/dl (70-99)
[2025-02-11] MEDS: NOVOLOG FLEXPEN-MODERATE RESISTANCE 1 UNITS SC (17:54)
--- NOTE | 2025-02-11 18:27 | PTCARENOTE ---
Pt rec'd back to ICU [id number] from OR at approx 15:15. Per Dr. Wyatt via CHIEF SAFETY OFFICER, gtts all resumed (including heparin at preop rate). Pt with middle abd KIKI drain in place s/p abdominal wall closure. Pt turned and repositioned, linens refreshed, VSS at
this time. See worklist. Safe environment maintained.
--- NOTE | 2025-02-11 20:30 | PTCARENOTE ---
adult nurse practitioner, pt intub/sedated, responds to verbal/tactile. Temp 100.9F- prn ofirmev. RDL PICC/LUE midline WNL- Fent,Prop,Heparin,Amio,TPN infusing per work list. L rad AL leveled/zeroed. tolerating vent- Sat 99% on 40% Fi02, minimal secretions. L
NGT to suction- bilious drainage, flushed per order. Wilkerson draining adequate amt nicole urine. mouth care done, pt turned/repositioned. will continue to monitor.
[2025-02-11] MEDS: Parenteral Nutrition, Central 1650 IV (21:20)
--- NOTE | 2025-02-12 | PTCARENOTE ---
no changes in pt assessment.
[2025-02-12] MEDS: CORDARONE 518 MG IV (00:21)
[2025-02-12] MEDS: NOVOLOG FLEXPEN-MODERATE RESISTANCE SC ×3 (00:24→17:37)
[2025-02-12 00:25] LABS: Glucose - Point of Care 123 mg/dl (70-99)
[2025-02-12] MEDS: DIPRIVAN 100 IV ×3 (02:13→16:49)
--- NOTE | 2025-02-12 04:30 | PTCARENOTE ---
CHG cloths, mouth care, turned/repositioned. prn fent per MAR. no changes in assessment.
[2025-02-12 04:38] LABS: APTT 63.1 Sec (23.4-35.0)
[2025-02-12] MEDS: MERREM 500 MG IV ×4 (04:53→21:49)
[2025-02-12] MEDS: STERILE WATER FOR INJECTION 10 ML IV ×4 (04:53→21:49)
[2025-02-12 04:54] LABS: Hematocrit 34.4 % (39.0-52.0); Mean Corpuscular Hgb 32.6 pg (27.0-31.0); Mean Corpuscular Volume 102.1 fL (80.0-94.0); Mean Platelet Volume 11.6 fL (7.4-10.4); Platelet Count 267 10^3/uL (130-400); Red Blood Cell Count 3.37 10^6/uL (4.70-6.10); Red Cell Dist. Width 16.1 % (11.5-14.5); White Blood Cell Count 21.2 10^3/uL (4.8-10.8)
[2025-02-12] MEDS: SUBLIMAZE 50 MCG IV ×3 (04:54→20:03)
[2025-02-12 04:55] LABS: Blood Urea Nitrogen 46 mg/dl (9-20); Calcium 7.8 mg/dl (8.4-10.2); Carbon Dioxide 28 mmol/L (22-30); Chloride 110 mmol/L (98-107); Estimated Creatinine Clearance 104 ml/min; Glucose 133 mg/dl (70-99); Potassium 4.8 mmol/L (3.5-5.1); Sodium 141 mmol/L (135-145); eGFR > 60.00
[2025-02-12] MEDS: HEPARIN 25000 UNITS/250 ML IV ×3 (05:07→21:30)
[2025-02-12 05:29] VITALS: BMI 35.7
--- NOTE | 2025-02-12 07:18 | W.PN.HOSP.TC ---
Today's Communication/Plan
-
see a/p
Assessment / Plan
Assessment / Plan
Physical Exam
General: Obese
HEENT: Normocephalic, Atraumatic, intubated
Respiratory: Clear to Auscultation bilaterally
Cardiac: Normal S1/S2, tachycardic rate and irregular rhythm
GI: Soft, distended, incision dressed
Extremities: No Clubbing, No Cyanosis
Neuro: sedated responsive to physical stimuli
59M hx dilated cardiomyopathy, EF 5-10%, afib LV thrombus on AC non-compliant, left lower extremity arterial occlusion due to thromboembolism 07/06 and acute limb ischemia RLE s/p thromboembolectomy 11/06 presented to the ER with abdominal pain and
shortness of breath. 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 Post-op course complicated with
ileus.
A/P:
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
Post-op Ileus
Fever unknown origin possibly infectious vs drug fever
-appreciate vascular, CRS, Skimmer Scoop Operator consults
-s/p OR 01/27: thromboembolectomy of SMA, placement ABThera Vac
-s/p OR 01/28: exploratory laparotomy, mesenteric angiography, partial omentectomy, tap block, abdominal closure
-s/p IV Zosyn - completed 7 day course, however fever/leukocytosis persist
-TPN initiated on 02/02
-02/07, CT abdomen and pelvis showed new mild intraperitoneal free air indicating a perforated viscus
-s/p OR 02/07: exploratory laparotomy, small bowel resection, lysis of adhesions, placement of ABThera wound VAC
-Continue NPO, NGT, TPN
-ID eval appreciated empiric IV zosyn switched to meropenem, micafungin continued
-cont IV tylenol prn, attempted once IV ibuprofen 02/12/25, ice packs prn
-wean Levophed as tolerated
-Returned to OR with CRS 02/11/2025 exploratory lap, small bowel anastomosis, abd wall closure, bilateral cutaneous advancement flaps,repeat wound culture results pending
-Trend fever and white count
Hypoxic Respiratory Failure status post intubation
-Appreciate computer support technician input, continue vent management as per computer support technician
Hypokalemia
Hypophosphatemia
-monitor and replete as necessary
Toxic metabolic encephalopathy
-Monitor
Permanent AFIB with RVR
Left atrial appendage thrombus
-Status post Cardizem drip
-appreciate Cardiology, continue IV amiodarone drip, IV heparin drip
-holding IV metoprolol due to hypotension
-resume Metoprolol when able to take PO
-resume Eliquis when confirm no need for further procedures
Acute on chronic HFrEF (EF 5-10%)
-hold MACHINE ROOM ENGINEER Entresto and Metop XL until patient can take PO meds
-IV Lasix as needed as per cardiology
-Trend creatinine, trend daily weights
Bacteruria
-UA on 02/05/25 with bacteuria
-Was on Rocephin, changed to Zosyn, then meropenem as above
Hyperthyroid--new diagnosis last admission?--on methimazole but would hold for now
-repeat TSH here WNL
Type 2 diabetes
-well controlled on sliding scale
-cont glycemic control
PAD
Active smoker
smoking cessation counseled
DVT proph - IV heparin drip
Code status - Full Code
Total Critical Care Time__45__ minutes. I was immediately available to the patient and staff. I personally examined, reviewed labs, diagnostic images/reports, interpretations, treatment plans, discussed patient care with other providers, entered
orders as appropriate and documented the medical record.
Anticipated Discharge: > 48 hours
Subjective/Interval History
-
Date of Service: February 12, 2025
sedated intubated. Responsive to physical stimuli.
Objective Data
-
Labs:
Laboratory Results
02/12/25 02/12/25
03:51 11:00
WBC 21.2 H
Hgb 11.0 L
Hct 34.4 L
Plt Count 267 D
APTT 63.1 H Pending
Sodium 141
Potassium 4.8
Chloride 110 H
Carbon Dioxide 28
BUN 46 H
Creatinine 1.0
Glucose 133 H
Calcium 7.8 L
Total Bilirubin Pending
AST Pending
ALT Pending
Alkaline Phosphatase Pending
Vital Signs:
Vital Signs
Temp Pulse Resp BP Pulse Ox
101.4 F H 98 18 126/67 99
02/12/25 00:15 02/12/25 07:00 02/12/25 07:00 02/11/25 08:06 02/12/25 07:00
I&O
02/11/25 02/12/25 02/13/25
06:59 06:59 06:59
Intake Total 3937.5 / 4066.1 2829.3 / 2829.3
Output Total 4790 / 4890 1884 / 1884
Balance -852.5 / -823.9 944.3 / 944.3
[2025-02-12 07:24] LABS: ALT (SGPT) 35 U/L (0-50); AST (SGOT) 36 U/L (17-59); Albumin 1.8 g/dl (3.5-5.0); Alkaline Phosphatase 108 U/L (38-126); Total Bilirubin 6.5 mg/dl (0.2-1.3)
--- NOTE | 2025-02-12 07:37 | PTCARENOTE ---
Thomas upon walking rounds 102.2, attending MD notified that Epifanio has reached stop date-he will reorder, in the meantime, ice packs applied per instructions from Dr. Vaughan.
--- NOTE | 2025-02-12 07:52 | W.PN.INTV ---
Today's Communication / Plan
Recommendations
Sedation vacation, SBT as appropriate
Follow fever curve, white count
Tylenol/ibuprofen
Remains on amiodarone/heparin
Continue with TPN
Assessment
-
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
thromboembolic occlusion of the right iliac system s/p thromboembolectomy of the right iliac system + thromboembolectomy of the right SFA, popliteal artery and profundo-femoral artery (10/2024) who presents with abdominal pain and SOB. He was in
his usual state of health RESAWYER when he developed sudden periumbilical abdominal pain without nausea or vomiting. In the ER he was afebrile to 98.2 �F, pulse rate 135, breathing at 12 breaths/min, BP 162/110 and saturating 97% on room air. Initial
labs showed potassium 2.9, lactate 5.2, T. bili 2.1, and proBNP 4580. CTA A/P showed thrombosis of the SMA with small bilateral pleural effusions and groundglass attenuation in the bases of the lungs. He was given 40 mg IV Lasix in the ER,
Dilaudid 0.5 mg, potassium repletion, 1 L NS 0.9% and Zofran. Vascular surgery was consulted and given his significant abdominal pain of acute onset he was consented for the OR. He underwent exploratory laparotomy with thromboembolectomy of
superior mesenteric artery and placement of an AbThera VAC. Postoperatively he returned to the ICU intubated, and Manager Income Tax services consulted for additional management/recommendations. Patient was extubated and improved, and subsequently
downgraded to the IMU on 01/31. He was downgraded to telemetry on 02/04 where he has been managed. Unfortunately on 02/05 he developed a small bowel obstruction. On 02/07, repeat CT A/P showed free air in the abdomen indicating a perforated viscus.
He went to the OR for an ex lap with small bowel resection and placement of an ABThera wound VAC, and is now transferred back to the ICU intubated.
Chronic conditions RESAWYER: Paroxysmal a-fib on Eliquis, hyperthyroidism, chronic HFrEF, left lower extremity arterial occlusion due to thromboembolism (06/2023)
Assessment and plan:
#1. 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
- Patient to OR on 02/08/2025 for an ex lap with abdominal washout and mesenteric angiography (no cultures sent)
- Patient 2 OR again 02/11 for abdominal washout and wound closure, culture sent
- Postoperative management as per colorectal surgery
- Pain control
- Continue NGT on low continuous wall suction as his bowel is in discontinuity per colorectal surgery
- Continue heparin drip as per colorectal surgery given his SMA occlusion. Consider transition to oral agent when okay per surgery
- Follow hemoglobin
#2. Ventilator dependent respiratory failure
- Continue with mechanical ventilation with daily SAT/SBT as able
- Vent adjustments based on daily blood gas
- Chest x-ray 02/11 without acute findings, ET tube appropriate, cardiomegaly
- Titrate FiO2 + PEEP to maintain SpO2 >90-94%
- Keep plateau pressure <30, presently 16, peak pressure 18
- ETT suctioning as needed
- Aspiration precautions
- Lightly sedated with goal RASS 0 to -2
- Sedation vacation daily
#3. Circulatory shock
- Likely related to sedation with septic shock in the setting of A-fib with RVR and HFrEF
- Continue with Levophed and titrate down as tolerated while keeping MAP >65
- Trend WBC and monitor for fevers
- Also CT A/P from 02/07/2025 still shows circumferential wall thickening in the distal small bowel suggestive of enteritis
- Patient now on micafungin/meropenem. Zosyn discontinued per ID, may be contributing to drug fever
- Follow cultures, follow fever curve, follow leukocytosis
#4. Acute mesenteric ischemia with SMA occlusion, likely embolic, s/p ex lap with SMA embolectomy (on 01/27/2025), followed by delayed abdominal wall closure with ex lap and partial omentectomy (on 01/28/2025)
- Continue heparin infusion as per CRC
- NG to suction as stated above, await return of bowel function
- Transition to oral agent when able
#5. Acute on Chronic heart failure with reduced ejection fraction, LVEF 10 to 15% with history of occlusive thrombus in MELISSA in the past
-Likely the source of embolic event to SMA
-Monitor input and output closely
-Lasix per cardiology
#6. Atrial fibrillation with rapid ventricular rate
- Continue amiodarone gtt
- Now off cardizem gtt
- IV lopressor on hold
- Cardiology service on case
- Heparin drip for anticoagulation
- Switch to oral meds once able to take PO
- LUIS ENRIQUE 01/04/2025 with EF 10 to 15%, normal RV size and function, moderate to severe TR, large occlusive thrombus in left atrial appendage
#7. Hyperglycemia
- HbA1c 6.3 on 01/27/2025
- Started insulin drip on 02/08 given he is critically ill with hyperglycemia - this is now weaned off; will resume ISS q6hr
#8. Abnormal urinalysis concerning for UTI
- UA on 02/05/2025 was positive for nitrites, with +1 leukocyte esterase and 6�10 urine WBC
- Ceftriaxone changed to Zosyn on 02/07/2025 in setting of small bowel perforation with sepsis
-Now on meropenem per ID. Follow cultures
Gi Prophylaxis: PPI IV
DVT ppx: Heparin gtt
Continue ICU level care for this critically ill patient.
Critical care statement: A total of 35 minutes of critical care time was provided for this patient today. This includes management of unstable vital signs, evaluation of the patient at bedside, reviewing the patient's pertinent medical records
including radiographs, microbiology, laboratory evaluations, and discussion with primary team, consultants, pharmacy, nutrition, physical therapy, case management, charge nurse, critical care nursing, and respiratory therapy.
Data:
CTA Abd/Pelvis w/wo IV contrast 01/27/2025:
Thrombosis of superior mesenteric artery branches, new since prior examination.
No bowel thickening or pneumatosis to suggest bowel ischemia.
No acute inflammatory changes within the abdomen or pelvis.
Mild diverticulosis without acute diverticulitis.
Stable fatty infiltration of liver. Stable low-attenuation right adrenal mass 1.3 cm, most consistent with benign adenoma.
Hazy attenuation in the dependent lung bases. Groundglass attenuation. Small bilateral pleural effusions. Possible mild pulmonary edema and/or atelectasis.
CT A/P w IV and oral contrast 02/07/2025:
New mild intraperitoneal free air indicating a perforated viscus. The exact location is difficult to discern, but distribution of free air greatest in the anterior mid to upper abdomen near the persistently dilated proximal small bowel loops that
again contain air-fluid levels. Long segment distal small bowel smaller in caliber with circumferential wall thickening suggestive of an enteritis.
Subjective Dataa
Subjective Data
Date of Service:
Date of Service: February 12, 2025
Chief Complaint: Manager Income Tax Follow Up
Subjective:
Patient remains critically ill, ventilator dependent. Persistent fevers noted. Remains sedated with fentanyl/propofol
Objective Data
Data Reviewed
Vital Signs / I&O / Oxygen:
Vital Signs
Temp Pulse Resp BP Pulse Ox
101.4 F H 98 18 126/67 99
02/12/25 00:15 02/12/25 07:00 02/12/25 07:00 02/11/25 08:06 02/12/25 07:23
Intake and Output
02/11/25 02/12/25 02/13/25
06:59 06:59 06:59
Intake Total 3937.5 / 4066.1 2829.3 / 2969.9 140.6 / 140.6
Output Total 4790 / 4890 1885 / 2110 225 / 225
Balance -852.5 / -823.9 944.3 / 859.9 -84.4 / -84.4
SaO2 [A/C] 98
SaO2 99
Nasal Cannula flow liters per 2
minute
Physical Exam
General: Comfortable and Other (Left upper extremity midline, right upper extremity PICC, left upper extremity A-line)
HEENT: Normocephalic and Other (ETT in place)
Cardiovascular: S1-S2, Irregular Rhythm (Irregularly irregular), Murmur (n), Rub (n) and Peripheral Edema (negative)
Respiratory: Wheeze (negative), Crackles (n), Rhonchi (few), Non-Labored Respirations, Stridor (negative) and ET Tube (Mechanical breath sounds heard bilaterally)
GI: Soft, Distended (less distended ) and Other (Abdominal incision/dressing, KIKI drain)
Neurology: No Motor Deficits (Spontaneously moving extremities, arousable) and Other (Sedated)
Skin: Warm, Dry, Cyanosis (negative) and Rash (n)
Labs/Micro/Reports
Lab Data
02/12/25 03:51
02/12/25 03:51
Laboratory Results
02/12/25
03:51
APTT 63.1 H
Microbiology
02/07/25 18:36 Blood/Venous Blood Culture - Preliminary
No Growth in 4 days- Final report to follow
02/11/25 14:22 Feces/Stool C. difficile GDH Antigen & Toxins - Final
Negative for toxigenic C.difficile
02/11/25 10:41 Nasal Swab Influenza Types A & B (SHERLYN) - Final
Negative for Influenza A & B, NAAT
Negative results must be combined with clinical observations
and patient history.
Nucleic Acid Amplification test (NAAT)performed on the
[employer] platform.
02/09/25 09:21 Urine Urine Culture - Final
NO GROWTH
[2025-02-12] MEDS: OFIRMEV 100 IV (08:00)
[2025-02-12] MEDS: SUBLIMAZE 100 IV ×2 (08:01→21:49)
[2025-02-12] MEDS: NSS (PRESERVATIVE FREE) 10 ML IV (08:01)
[2025-02-12] MEDS: PROTONIX IV 40 MG IV (08:01)
[2025-02-12 08:19] VITALS: BP 131/96
--- NOTE | 2025-02-12 08:42 | PN.DE.MGMTRT ---
Insulin Management
- -
02/12/2025: Diabetes Management Follow up
Patient admitted 01/27 with abdominal pain and SOB PMH: A-fib, hyperthyroidism, chronic HFrEF, LLE arterial occlusion due to thromboembolism (06/2023), h/o acute limb ischemia of RLE with thromboembolic occlusion of the right iliac system s/p
thromboembolectomy of the right iliac system + thromboembolectomy of the right SFA, popliteal artery. Prior to admission was taking Jardiance 10mg daily. A1C 6.3%, Cr 1.1, eGFR >60.
CTA showed thrombosis of the SMA s/p ex lap with thromboembolectomy of SMA and placement of an AbThera Vac 01/27/25. Postoperatively he was started on the glycemic protocol due to hyperglycemia.
Pt is intubated and sedated, unable to discuss diabetes care plan, sister at bedside, all questions answered.
POD 1 s/p exploratory laparotomy, mesenteric ischemia, abdominal washout.
POD #5 s/p exploratory laparotomy with small bowel resection.
POD# 15 exploratory laparotomy, mesenteric angiography, partial omentectomy, tap block, abdominal closure
Remains NPO, on TPN. Transitioned off glycemic protocol on 02/10 at 7AM to moderate corrective Q6 hrs
Glucose stable and in range, 123 to 162, FBG 133 this AM, has required no corrective insulin.
Will make no changes to current regimen: Cont moderate corrective Q6 hrs
Discussed with nurse. Will cont to follow.
Diabetes History
- -
Pre-Admission Diabetes Regimen
02/12/25
03:51
Creatinine 1.0
Lab Results
Hemoglobin A1c 6.3 % (4.0-5.6) H 01/27/25 14:42
Insulin Pump Settings
IP Diabetes Regimen
02/11/25 02/11/25 02/12/25
11:27 17:40 00:23
Glucose
POC Glucose 124 H 162 H 123 H
02/12/25
03:51
Glucose 133 H
POC Glucose
Patient Education
--- NOTE | 2025-02-12 08:43 | PTCARENOTE ---
Pt rec'd from night RN 0700-pt remains intub/sedated, responds to verbal/tactile. Temp 102.2F- prn ofirmev, ice packs utilized. Also rec'd orders for additional IV motrin to alternate. RDL PICC/LUE midline WNL- Fent,Prop,Heparin,Amio,TPN infusing
per work list. L rad AL leveled/zeroed. tolerating vent- Sat 99% on 40% Fi02, large amount thick robles secretions suctioned via oral and ETT. L NGT to suction- bilious drainage, flushed per order. Wilkerson draining adequate amt nicole urine. mouth care
done, pt turned/repositioned. Plan discussed with surgery, attending and math tutor. Sedation vacation started at 0800, propofol off, pt responding to commands, opens eyes, nodding appropriately. SBT started 08:35; RT placed pt on CPAP wean of 10/5
with 40% Fio2. Sa02 97%. will continue to monitor.
[2025-02-12] MEDS: MYCAMINE 105 MG IV (09:41)
--- NOTE | 2025-02-12 09:57 | W.PN.CARDCBS ---
Today's Communication / Plan
-
He went back to the operating room February 11.
Continue IV heparin with known thromboembolic event.
His ventricular rates are stable overall
Continue IV amiodarone gtt
IV Lopressor if needed for additional rate control.
His weight has increased last 24 hrs. He received Lasix 40 mg IV x 1 February 10. Will cont to monitor wts. If any further wt gain would give additional lasix.
Impression / Plan
-
.
Primary Parachutist/Combatant Diver Qualified: Dr. Pickett
Primary EP: Dr Solorio
PCP: Dr Peñaloza
HPI: Patient with history of cardioembolic occlusion of left common femoral artery 06/2023, right iliac artery occlusion status post thromboembolectomy 10/29/2024. During that time was also noted to be in persistent rapid A-fib initially discovered
07/2023 with history of noncompliance with medications. Also with known low EF suspected tachycardia mediated status post cath 05/2024 with nonobstructive CAD.
He presented back to the ED 11/2024 due to generalized malaise and was noted to have a seroma of his right groin s/p I/D and wound vac. He was also found to be in decompensated heart failure with reduced ejection fraction and have atrial
fibrillation with rapid ventricular rates. Plan for LUIS ENRIQUE cardioversion but LUIS ENRIQUE 01/04/2025 showed massive occlusive thrombus in left atrial appendage. Most recently, presented on 01/27/2025 with acute onset abdominal pain found to have acute
mesenteric ischemia with SMA occlusion, went to OR for exploratory laparotomy and SMA thrombectomy. Postop shock with metabolic/lactic acidosis, on Levophed and intubated. Cardiology consulted for management of atrial fibrillation and heart failure
Impression:
Acute mesenteric ischemia with SMA occlusion, status post exploratory lap and SMA thrombectomy 01/27/2025 and redo OR 02/07/2025 and OR 02/08/2025
Acute hypoxemic respiratory failure
Shock with metabolic/lactic acidosis
Right groin seroma
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
Persistent atrial fibrillation, first discovered July 2023
Non-AK myocardial injury
Chronic OAC with eliquis
Left atrial appendage thrombus by LUIS ENRIQUE 12/2024
Chronic HFrEF
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
NSVT
Hyperthyroidism
Noncompliance
Depression
History of ETOH and tobacco abuse
Obesity
Ventilator dependent respiratory failure
ECHO 04/04/2024: EF 10 to 15%, severe global hypokinesis, mild MR, trace TR, PAP 30 to 33 mmHg
Cardiac catheterization 05/22/2024: Nonobstructive coronary disease with normal to mildly elevated right and left-sided filling pressures with normal cardiac output
Echocardiogram 10/30/2024: Severely dilated left ventricle, severely reduced LV systolic function, global hypokinesis with ejection fraction of 5-10%, moderate to severe eccentric TR with PA pressure of 30-35 mmHg, small pericardial effusion.
LUIS ENRIQUE 01/04/2025: LVEF 10 to 15%, definite massive occlusive thrombus in left atrial appendage, mild MR, moderate to severe TR
Plan:
He went back to the operating room February 11.
He bp remains stable off Levophed.
Remains septic and critically ill. Remains febrile. Continue TPN and supportive care
Continue IV heparin with known thromboembolic event.
His ventricular rates are stable overall
Continue IV amiodarone gtt
IV Lopressor if needed for additional rate control.
Remains anemic, hemoglobin is at February 12. Continue to follow. Creatinine is normal at 1.0 on 02/12/2025
His weight has increased last 24 hrs. He received Lasix 40 mg IV x February 10. Will cont to monitor wts. If any further wt gain would give additional lasix.
He has had 3 cardiac embolic events in the past 9 months felt to be due to noncompliance. Continue IV heparin and eventually restart Eliquis.
His severe LV dysfunction is likely tachycardia mediated and related to noncompliance.
Long-term plan would likely be to repeat transesophageal echo (given large occlusive thrombus in left atrial appendage) if he recovers from abdominal procedures and then make a plan regarding risk of ablation.
Discussed with nursing.
Critical care time 30 min
Progress Note - Parachutist/Combatant Diver Qualified
Subjective
Date of Service: February 12, 2025
Pt seen and examined. Sedated on vent.
Objective
Labs:
02/12/25 03:51
02/12/25 03:51
Labs
Hgb 11.0 g/dL (13.0-18.0) L 02/12/25 03:51
Hct 34.4 % (39.0-52.0) L 02/12/25 03:51
Plt Count 267 10^3/uL (130-400) D 02/12/25 03:51
PT 18.0 Sec (11.4-14.6) H 01/28/25 06:36
INR 1.46 01/28/25 06:36
APTT 63.1 Sec (23.4-35.0) H 02/12/25 03:51
Sodium 141 mmol/L (135-145) 02/12/25 03:51
Potassium 4.8 mmol/L (3.5-5.1) 02/12/25 03:51
BUN 46 mg/dl (9-20) H 02/12/25 03:51
Creatinine 1.0 mg/dL (0.7-1.3) 02/12/25 03:51
Glucose 133 mg/dl (70-99) H 02/12/25 03:51
Vital Signs and I&O:
Vital Signs
Temp Pulse Resp BP Pulse Ox
102.2 F H 98 18 126/67 98
02/12/25 08:00 02/12/25 07:00 02/12/25 07:00 02/11/25 08:06 02/12/25 08:35
Vital Signs
Temp Pulse Resp BP Pulse Ox
102.2 F H 98 18 126/67 98
02/12/25 08:00 02/12/25 07:00 02/12/25 07:00 02/11/25 08:06 02/12/25 08:35
Intake & Output
02/10/25 02/11/25 02/12/25 02/13/25
06:59 06:59 06:59 06:59
Intake Total 3892.5 / 4024.9 3937.5 / 4066.1 2829.3 / 2969.9 423.0 / 423.0
Output Total 3415 / 3515 4790 / 4890 1885 / 2110 425 / 425
Balance 477.5 / 509.9 -852.5 / -823.9 944.3 / 859.9 -2.0 / -2.0
Physical Exam
Physical Exam
General: Sedated on vent
Neck: Negative JVD
Heart: Irregular irregular, Negative S3 positive S1/S2, Negative S4, No murmur
Lungs: CTA b/l, negative wheezes/rales/rhonchi
Abd: Positive BS, NT/ND, neg rebound/rigidity/guarding
Ext: Negative cyanosis/clubbing/edema
Neuro: nonfocal
[2025-02-12 10:23] LABS: Folate 7.2 ng/ml (2.76-20); Vitamin B12 > 1000 pg/ml (239-931)
--- NOTE | 2025-02-12 10:23 | PTCARENOTE ---
Plan discussed in walking rounds, pt flipped to 5/5 40% at 10:00 for continued SBT. Pt is tachycardic up to 150s at times, fever slowly coming down (see MAR for med administration times), and pt nods 'yes' to pain. Fent bolus given, pt suctioned for
copious oral and endotracheal secretions, thick white in color. Strong cough noted. Pt now sleeping intermittently, HR down to 1 teens when asleep.
--- NOTE | 2025-02-12 10:48 | W.PN.CRS1 ---
Today's Communication / Plan
-
TPN
heparin drip
Maintain NG tube
Assessment/Plan
-
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
POD 1 exlap, small bowel anastomosis, abdominal wall closure, bilateral cutaneous advancement flaps
POD 4 take-back, abdominal washout, replacement of vac
POD 5 exlap, SBR of ~120cm, left in discontinuity and open due to worsening septic shock, placed abthera vac
POD 14 takeback, abdominal closure
POD 15 ex lap SMA thromboembolectomy by Dr. Wilkerson; intraoperative consult for mesenteric ischemia without overt signs of necrosis
Tmax 102.2, VSS, off pressors
WBC 21.2 (14.9), Hb 11.0 (10.4)
--Extubate per primary team. If extubated, remain n.p.o. with NG tube.
-Appreciate ICU
-Cont fent/prop
-MAP >65
�Continue n.p.o. with NGT
� Continue TPN until tolerating solid food
�Remains on a heparin drip
� Continue Zosyn and micafungin; f/u cultures, appreciate ID. Monitor leukocytosis.
� Appreciate hospitalist
- Maintain subq KIKI drain
Subjective Data
Procedure
01/27/2025- Ex lap, SMA embolectomy
01/28/2025- Exploratory laparotomy, mesenteric angiography, partial omentectomy, tap block, abdominal closure
02/07/2025- Exploratory laparotomy, small bowel resection, lysis of adhesions, placement of ABThera wound VAC
02/08/2025- Exploratory laparotomy, abdominal washout, mesenteric angiography with spy, placement of ABThera VAC
02/11/2025- exlap, small bowel anastomosis, abdominal wall closure, bilateral cutaneous advancement flaps
Subjective Data
Date of Service: February 12, 2025
Patient remains intubated and partially sedated. He has his eyes open but is not able to communicate.
Objective Data
-
Vital Signs
Temp Pulse Resp BP Pulse Ox
102.2 F H 112 17 131/96 98
02/12/25 08:00 02/12/25 10:00 02/12/25 10:00 02/12/25 08:19 02/12/25 10:00
Intake & Output
02/11/25 02/12/25 02/13/25
06:59 06:59 06:59
Intake Total 3937.5 / 4066.1 2829.3 / 2969.9 549.2 / 549.2
Output Total 4790 / 4890 1885 / 2110 475 / 475
Balance -852.5 / -823.9 944.3 / 859.9 74.2 / 74.2
Intake:
IV fluids (Total) 1730.5 / 1801.1 1362.3 / 1433.9 243.2 / 243.2
Amiodarone 400.8 / 417.5 367.5 / 384.2 66.8 / 66.8
Fentanyl 180.0 / 187.5 165.0 / 172.5 30.0 / 30.0
Heparin 768 / 800 513 / 546 132 / 132
Insulin 0 / 0
Levophed 36.1 / 36.1
Propofol 345.6 / 360.0 316.8 / 331.2 14.4 / 14.4
IV piggybacks 635 / 635 255 / 255
TPN/PPN 1392 / 1450 1027 / 1096 276 / 276
Amount instilled into GI Tube ( 180 / 180 185 / 185 30 / 30
Total)
[place] S[place] 180 / 180 185 / 185 30 / 30
Output:
Drain Output (Total) 650 / 650 55 / 55
Abdomen Wound Vac 650 / 650
[place] 55 /
Gastrointestinal tube output ( 450 / 450 100 / 225 125 / 125
Total)
[place] Sump 450 / 450 100 / 225 125 / 125
Urine, Wilkerson 3690 / 3790 1730 / 1830 350 / 350
Other:
Number of unmeasured liquid
stools
Rectum 1
Lab Results
02/12/25 03:51
02/12/25 03:51
Physical Exam
-
General: Other (Intubated and sedated)
Abdomen: Soft, Non Distended, Non Tender and Other (KIKI drain serosanguineous)
Wound: Dressing in Place
[2025-02-12] MEDS: CALDOLOR 104 MG IV (10:54)
--- NOTE | 2025-02-12 11:12 | PTCARENOTE ---
ABG and PTT drawn and sent to lab. Pt resting comfortably on 5/5, 40%, occ coughing. Safe environment continues.
[2025-02-12 11:19] LABS: B.E. 0.5 mmol/L; HCO3 24.6 mmol/L (21-28); O2 Saturation % 99.1 % (94-98); PCO2 37 mmHg (35-48); PO2 105 mmHg (83-108); pH 7.43 (7.35-7.45)
[2025-02-12 11:33] LABS: APTT 75.7 Sec (23.4-35.0)
--- NOTE | 2025-02-12 11:34 | W.PN.ID1 ---
Date of Service
Date of Service: February 12, 2025
Today's Communication
Continue current antibiotics for today
Assessment / Plan
Ongoing fevers
- ?infection ?post-op ?drug fever
Leukocytosis
Mesenteric ischemia with perforation and necrotic bowel
- s/p washout and primary abdominal closure (02/11/2025)
VDRF
Severely dilated cardiomyopathy with markedly diminished EF
Hx A-fib
Recommendations:
Looking back, fevers have been ongoing since 02/07, when Zosyn was restarted.
Multiple possible etiologies of fever and leukocytosis, including drug fever, versus ongoing abdominal process.
-Given persistence of fever, drug fever becomes higher on the differential.
Continue with meropenem (day #2) and micafungin (day #5)
C. difficile is negative.
Abdominal fluid cultures are pending.
Follow white count and temperature curve.
Continue with supportive care.
Patient remains critically ill on vent support in ICU
����������������������������������������������������������
Chief Complaint
-: Fever and Leukocytosis
Subjective / Review of Systems
Patient seen and examined. Remains on vent at this time. Fevers have persisted
S/p OR yesterday for washout and primary closure.
Vital Signs / Physical Exam
Vital Signs
Vital Signs
Temp Pulse Resp BP Pulse Ox
101.6 F H 133 25 131/96 97
02/12/25 10:52 02/12/25 11:00 02/12/25 11:00 02/12/25 08:19 02/12/25 11:14
Physical Exam
Constitutional: Acutely Ill and Non-toxic
Head: Normocephalic
Eyes: No Conjunctival Hemorrhage
Cardiovascular: Regular Rate (Tachycardic) and S1/S2; Negative S3/S4
Pulmonary: Clear and Other (ET tube to vent.)
Gastrointestinal: Soft, Decreased Bowel Sounds, No Rebound and No Guarding
Genito-Urinary: Wilkerson
Extremities: Edema; Negative Cyanosis or Erythema
Neurological: Other (Arousable to touch.)
Objective Data
Lab Data
Lab Results
02/12/25 03:51
02/12/25 03:51
PT 18.0 Sec (11.4-14.6) H 01/28/25 06:36
INR 1.46 01/28/25 06:36
APTT 63.1 Sec (23.4-35.0) H 02/12/25 03:51
Estimated Creat Clear 104 ml/min 02/12/25 03:51
Lactic Acid 1.1 mmol/L (0.7-2.0) 02/09/25 04:00
Total Bilirubin 6.5 mg/dl (0.2-1.3) H 02/12/25 03:51
AST 36 U/L (17-59) 02/12/25 03:51
ALT 35 U/L (0-50) 02/12/25 03:51
Alkaline Phosphatase 108 U/L (38-126) 02/12/25 03:51
Most recent labs reviewed.
Micro Results:
02/11/25 15:30 Fungal Culture - Preliminary
Other-Please specify - Other Culture in progress.
Positive cultures are reported as soon as detected.
Final report to follow in four to five weeks.
02/07/25 18:36 Blood Culture - Preliminary
Blood/Venous No Growth in 4 days- Final report to follow
02/11/25 15:30 Wound Culture - Pending
Abdomen Gram Stain - Pending
02/11/25 15:30 Anaerobic Culture - Pending
Other-Please specify - Other
02/11/25 14:22 C. difficile GDH Antigen & Toxins - Final
Feces/Stool Negative for toxigenic C.difficile
02/11/25 13:11 Blood Culture - Pending
Blood/Venous
02/11/25 10:41 Influenza Types A & B (SHERLYN) - Final
Nasal Swab Negative for Influenza A & B, NAAT
Negative results must be combined with clinical observations
and patient history.
Nucleic Acid Amplification test (NAAT)performed on the
[employer] platform.
02/09/25 09:21 Urine Culture - Final
Urine NO GROWTH
01/27/25 12:14 Blood Culture - Final
Blood/Venous No Growth - Final Report
01/27/25 21:32 MRSA Screen - Final
Nose No Methicillin Resistant Staphylococcus aureus isolated.
Imaging:
02/11/2025 CXR (portable): Hazy opacification along both lower lungs without significant change. No significant pleural effusion is noted.
--- NOTE | 2025-02-12 11:37 | PTCARENOTE ---
SBT ended at 11:25 due to ongoing tachycardia per farm butcher. Prop resumed at 20 mcg/kg/min. HR 114 and RR 20and trending down. emotional support ongoing.
[2025-02-12 12:03] LABS: Glucose - Point of Care 182 mg/dl (70-99)
--- NOTE | 2025-02-12 12:03 | W.PN.UPDATE ---
Update Note
Progress Note Update
Attempted sedation vacation. Patient weaned off fentanyl and propofol
Appeared comfortable, following commands, max Vt 750. Denied any pain
Transition to SBT CPAP 5/5, tolerated for about 30 minutes. He then developed rapid shallow breathing, tachypnea, hypertension with systolic pressure in the 150s, heart rate in the 150s
With this he admitted to shortness of breath, increased secretions, increased rhonchi on exam
Patient evaluated throughout above process over the past few hours
ABG 7.43/37/105 prior to termination of SBT
Transitioned back to volume-cycled ventilation. Will change to ASV 100%
resume sedation, Propofol/fentanyl RASS -2
Will obtain chest x-ray 02/12
Will give additional dose of Lasix
Continue amiodarone drip
Remains on heparin drip
Reviewed LUIS ENRIQUE from December 2024. EF 10%, large clot in left atrial appendage
During sedation vacation, patient moving all extremities, following commands, no focal deficits
Reviewed with critical care nursing, respiratory care
TCCT 15 min
--- NOTE | 2025-02-12 12:14 | PTCARENOTE ---
PTT result noted, within therapeutic range. NO rate change. next PTT ordered for 17:00.
[2025-02-12] MEDS: LASIX 40 MG IV (12:27)
[2025-02-12] MEDS: NOVOLOG FLEXPEN-MODERATE RESISTANCE 1 UNITS SC (12:28)
--- NOTE | 2025-02-12 13:59 | CM ---
CM following re: discharge planning.
Reviewed pt's chart, met with pt.
Per Rounds meeting pt remains intubated, colorectal surgery following, continue supportive care.
Pt lives in an apartment/rented room, , 2nd floor, 2FF of steps to get to his apartment. Pt has no children, has 4 brothers, 3 sisters and a mother, one brother lives with mother and brother Jag lives in [facility]. Pt has supportive friend
Angie. 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
D/C plan: [facility] when medically stable.
CM will follow with discharge plan updates as hospitalization progress
--- NOTE | 2025-02-12 15:19 | PTCARENOTE ---
Pt remains comfortable with RASS -2, meeting parameters to wean down prop...rate lowered to 10 mcg/kg/min at this time-see worklist.
[2025-02-12 17:29] LABS: APTT 106.8 Sec (23.4-35.0)
[2025-02-12 17:48] LABS: Glucose - Point of Care 144 mg/dl (70-99)
--- NOTE | 2025-02-12 18:35 | PTCARENOTE ---
Fent also weaned this afternoon-see worklist. pt tolerating well. Pt continues with large amounts thick tannish white secretions, suctioned frequently for harsh productive cough. Pt indicates ET tube hurting corner of his mouth, repositioned to
center. Pt smiling and winking at staff, interactive. Wrist restraints in place, safe environment continues.
--- NOTE | 2025-02-12 20:30 | PTCARENOTE ---
accounts receivable processor, pt intub/sedated, responds to verbal/tactile. RDL PICC/LUE midline WNL- Fent,Prop,Heparin,Amio,TPN infusing per work list. L rad AL leveled/zeroed. L NGT to suction- bilious drainage, flushed per order. Wilkerson draining adequate amt
nicole urine. mouth care done, pt turned/repositioned. will continue to monitor.
[2025-02-12] MEDS: Parenteral Nutrition, Central 1660 IV (21:51)
[2025-02-13] MEDS: DIPRIVAN 100 IV ×5 (00:17→23:51)
[2025-02-13] MEDS: NOVOLOG FLEXPEN-MODERATE RESISTANCE SC ×3 (00:19→17:28)
[2025-02-13 00:20] LABS: Glucose - Point of Care 145 mg/dl (70-99)
--- NOTE | 2025-02-13 00:30 | PTCARENOTE ---
pt abd appears more distended/firm. aquacell drsg with shadowing marked at 2015- unchanged. KIKI drain with small amt bloody drainage. VSS, no other changes noted. BDougherty aware- to bedside to assess. am labs sent early per BRAKE LINING MAKER. will monitor.
[2025-02-13 00:57] LABS: Hematocrit 30.9 % (39.0-52.0); Hemoglobin 9.8 g/dL (13.0-18.0); Mean Corp Hgb Conc. 31.7 g/dL (33.0-37.0); Mean Corpuscular Hgb 31.9 pg (27.0-31.0); Mean Corpuscular Volume 100.7 fL (80.0-94.0); Platelet Count 289 10^3/uL (130-400); Red Blood Cell Count 3.07 10^6/uL (4.70-6.10); White Blood Cell Count 18.9 10^3/uL (4.8-10.8)
[2025-02-13 01:03] LABS: APTT 89.1 Sec (23.4-35.0)
[2025-02-13 01:09] LABS: Blood Urea Nitrogen 50 mg/dl (9-20); Calcium 7.8 mg/dl (8.4-10.2); Carbon Dioxide 30 mmol/L (22-30); Chloride 110 mmol/L (98-107); Estimated Creatinine Clearance 105 ml/min; Glucose 144 mg/dl (70-99); Potassium 4.3 mmol/L (3.5-5.1); Sodium 140 mmol/L (135-145); Triglycerides 208 mg/dl (10-149); eGFR > 60.00
[2025-02-13] MEDS: CORDARONE 518 MG IV (04:23)
[2025-02-13] MEDS: MERREM 500 MG IV ×4 (04:23→21:39)
[2025-02-13] MEDS: STERILE WATER FOR INJECTION 10 ML IV ×4 (04:23→21:39)
[2025-02-13] MEDS: HEPARIN 25000 UNITS/250 ML IV (04:25)
[2025-02-13] MEDS: SUBLIMAZE 50 MCG IV ×6 (04:34→19:47)
[2025-02-13] MEDS: OFIRMEV 100 IV ×2 (04:35→15:32)
--- NOTE | 2025-02-13 04:51 | PTCARENOTE ---
pt abd more distended, whole aquacell drsg now saturated, BDoughertyNP aware- REMOTE SENSING RESEARCH SCIENTIST calling colorectal sx web content coordinator- awaiting plan.
--- NOTE | 2025-02-13 05:04 | W.PN.UPDATE ---
Update Note
Progress Note Update
0005 Notified by nurse of increasing abdominal distention, during assessment firm spot mid abdomen noted. Concern for bleeding=sent labs, marked site, Hemoglobin drop roughly 1 gram. Hemodynamics stable �
0450 Nurse notified me that abdomen distention has increased. �Doctor Edmundo updated via phone instructed me to start off with a KUB and he will be in early in the morning to assess patient. H&H also ordered. Hemodynamics stable.�
[2025-02-13 05:19] LABS: Hematocrit 28.5 % (39.0-52.0); Hemoglobin 9.2 g/dL (13.0-18.0)
--- NOTE | 2025-02-13 05:26 | PTCARENOTE ---
Stat KUB done
[2025-02-13 05:44] VITALS: BMI 35.6
[2025-02-13 06:16] LABS: Glucose - Point of Care 142 mg/dl (70-99)
--- NOTE | 2025-02-13 06:20 | W.PN.HOSP.TC ---
Today's Communication/Plan
-
see a/p
Assessment / Plan
Assessment / Plan
Physical Exam
General: Obese
HEENT: Normocephalic, Atraumatic, intubated
Respiratory: Clear to Auscultation bilaterally
Cardiac: Normal S1/S2, tachycardic rate and irregular rhythm
GI: Soft, distended, incision dressed
Extremities: No Clubbing, No Cyanosis
Neuro: sedated responsive to physical stimuli
59M hx dilated cardiomyopathy, EF 5-10%, afib LV thrombus on AC non-compliant, left lower extremity arterial occlusion due to thromboembolism 07/06 and acute limb ischemia RLE s/p thromboembolectomy 11/06 presented to the ER with abdominal pain and
shortness of breath. 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 Post-op course complicated with
ileus.
A/P:
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
Post-op Ileus
Fever unknown origin possibly infectious vs drug fever
-appreciate vascular, CRS, Oracle Applications Developer consults
-s/p OR 01/27: thromboembolectomy of SMA, placement ABThera Vac
-s/p OR 01/28: exploratory laparotomy, mesenteric angiography, partial omentectomy, tap block, abdominal closure
-s/p IV Zosyn - completed 7 day course, however fever/leukocytosis persist
-TPN initiated on 02/02
-02/07, CT abdomen and pelvis showed new mild intraperitoneal free air indicating a perforated viscus
-s/p OR 02/07: exploratory laparotomy, small bowel resection, lysis of adhesions, placement of ABThera wound VAC
-Continue NPO, NGT, TPN
-ID eval appreciated empiric IV zosyn switched to meropenem, micafungin continued
-cont IV tylenol prn, attempted once IV ibuprofen 02/12/25, ice packs prn
-wean Levophed as tolerated
-Returned to OR with CRS 02/11/2025 exploratory lap, small bowel anastomosis, abd wall closure, bilateral cutaneous advancement flaps,repeat wound culture results pending
-02/13/25 developed increased abd distension firmness w/ associate drop in hgb overnight, CRS eval appreciated 200-300 mL of dark sanguinous blood expressed from midline wound likely subcutaneous bleed, abd binder applied and hep gtt placed on hold.
-Trend fever and white count
Hypoxic Respiratory Failure status post intubation
-Appreciate crossword puzzle maker input, continue vent management as per crossword puzzle maker
Hypokalemia
Hypophosphatemia
-monitor and replete as necessary
Toxic metabolic encephalopathy
-Monitor
Permanent AFIB with RVR
Left atrial appendage thrombus
-Status post Cardizem drip
-appreciate Cardiology, continue IV amiodarone drip, IV heparin drip on hold as above
-holding IV metoprolol due to hypotension
-resume Metoprolol when able to take PO
-resume Eliquis when confirm no need for further procedures
Acute on chronic HFrEF (EF 5-10%)
-hold COFFEE HOST Entresto and Metop XL until patient can take PO meds
-IV Lasix as needed as per cardiology
-Trend creatinine, trend daily weights
Bacteruria
-UA on 02/05/25 with bacteuria
-Was on Rocephin, changed to Zosyn, then meropenem as above
Hyperthyroid--new diagnosis last admission?--on methimazole but would hold for now
-repeat TSH here WNL
Type 2 diabetes
-well controlled on sliding scale
-cont glycemic control
PAD
Active smoker
smoking cessation counseled
DVT proph - IV heparin drip on hold d/t subq bleed as above
Code status - Full Code
discussed with patient's brother Jag
Total Critical Care Time__45__ minutes. I was immediately available to the patient and staff. I personally examined, reviewed labs, diagnostic images/reports, interpretations, treatment plans, discussed patient care with other providers and
patient's brother Jag (patient unable to make decisions for himself at this time), entered orders as appropriate and documented the medical record.
Anticipated Discharge: > 48 hours
Subjective/Interval History
-
Date of Service: February 13, 2025
sedated intubated.
Objective Data
-
Labs:
Laboratory Results
02/13/25 02/13/25
00:37 05:02
WBC 18.9 H
Hgb 9.8 L 9.2 L
Hct 30.9 L 28.5 L
Plt Count 289
APTT 89.1 H
Sodium 140
Potassium 4.3
Chloride 110 H
Carbon Dioxide 30
BUN 50 H
Creatinine 1.0
Glucose 144 H
Calcium 7.8 L
Vital Signs:
Vital Signs
Temp Pulse Resp BP Pulse Ox
100.4 F H 82 19 115/54 98
02/13/25 04:00 02/13/25 06:00 02/13/25 06:00 02/12/25 12:27 02/13/25 06:00
I&O
02/11/25 02/12/25 02/13/25
06:59 06:59 06:59
Intake Total 3937.5 / 4066.1 2829.3 / 2969.9 3525.8 / 3525.8
Output Total 4790 / 4890 1885 / 2110 3700 / 3700
Balance -852.5 / -823.9 944.3 / 859.9 -174.2 / -174.2
--- NOTE | 2025-02-13 07:00 | PTCARENOTE ---
Bedside change of shift done. Abdomen distended/firm and dressing saturated. aware. Will monitor.
[2025-02-13 07:16] LABS: Iron 39 ug/dl (49-181)
[2025-02-13 07:25] LABS: Percent Saturation 25 % (20-50); Total Iron Binding Capacity 155 ug/dl (261-462)
--- NOTE | 2025-02-13 07:40 | PTCARENOTE ---
Assumed care of patient. Pt rec'd intubated and sedated on vent. Pt occasionally grimaces to repositioning/care. Attempts to open eyes to verbal stimuli. Nods head appropriately. Bilateral wrist restraints on. DRAKE's but weak. Heels elevated
on pillows. S1 S2 irregular w/ afib on monitor. Weak PP's. +2 generalized edema. Knee hi SCD's on. #8 ETT 26cm right lip. Current vent settings: ASV 100% min vol/+5/40%...sats 97%. Lungs diminished and coarse throughout. PC...suctioned for
thick yellow secretions. Abdomen firm/distended...tender to palpation. No BS. Left nare [place] (70cm) -> LIWS...draining green liquid. Irrigated w/ 30mls of tap water without issue. Temp sensing candelaria draining cloudy yellow urine w/ sediment.
Candelaria care done. Skin jaundice/sallow in color. Mid abdominal aquacell dressing saturated. made aware on nights. Left radial jonh...flushed and zeroed. Left midline. Multiple left arm INT's. Right DL PICC. TPN, amiodarone,
propofol, fentanyl, and heparin gtts infusing...see interventions. VS documented. Safe environment confirmed. Will continue to monitor.
[2025-02-13] MEDS: NSS (PRESERVATIVE FREE) 10 ML IV (07:49)
[2025-02-13] MEDS: PROTONIX IV 40 MG IV (07:50)
--- NOTE | 2025-02-13 07:52 | W.PN.INTV ---
Today's Communication / Plan
Recommendations
Persistent fevers noted
Doppler with DVT
Heparin discontinued due to abdominal hematoma this a.m.
Follow hemoglobin
Consider hematology evaluation, thrombotic disease, high levels of heparin required
Check fibrinogen level, repeat coags in a.m.
remains on micafungin, meropenem
Will hold on ventilator wean at this time
Patient is following commands, does not appropriately, comfortable on current pain regimen/sedation
Assessment
-
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
thromboembolic occlusion of the right iliac system s/p thromboembolectomy of the right iliac system + thromboembolectomy of the right SFA, popliteal artery and profundo-femoral artery (10/2024) who presents with abdominal pain and SOB. He was in
his usual state of health [employer] when he developed sudden periumbilical abdominal pain without nausea or vomiting. In the ER he was afebrile to 98.2 �F, pulse rate 135, breathing at 12 breaths/min, BP 162/110 and saturating 97% on room air. Initial
labs showed potassium 2.9, lactate 5.2, T. bili 2.1, and proBNP 4580. CTA A/P showed thrombosis of the SMA with small bilateral pleural effusions and groundglass attenuation in the bases of the lungs. He was given 40 mg IV Lasix in the ER,
Dilaudid 0.5 mg, potassium repletion, 1 L NS 0.9% and Zofran. Vascular surgery was consulted and given his significant abdominal pain of acute onset he was consented for the OR. He underwent exploratory laparotomy with thromboembolectomy of
superior mesenteric artery and placement of an AbThera VAC. Postoperatively he returned to the ICU intubated, and [employer] In[employer] services consulted for additional management/recommendations. Patient was extubated and improved, and subsequently
downgraded to the IMU on 01/31. He was downgraded to telemetry on 02/04 where he has been managed. Unfortunately on 02/05 he developed a small bowel obstruction. On 02/07, repeat CT A/P showed free air in the abdomen indicating a perforated viscus.
He went to the OR for an ex lap with small bowel resection and placement of an ABThera wound VAC, and is now transferred back to the ICU intubated.
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
Assessment and plan:
#1. 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
- Patient to OR on 02/08/2025 for an ex lap with abdominal washout and mesenteric angiography (no cultures sent)
- Patient to OR again 02/11 for abdominal washout and wound closure, culture sent
- Postoperative management as per colorectal surgery
- Pain control
- Continue NGT on low continuous wall suction as his bowel is in discontinuity per colorectal surgery
- Abdominal distention overnight, hematoma evacuated per surgery at the bedside 4/2 am. Heparin drip discontinued
- Was on heparin drip as per colorectal surgery given his SMA occlusion. Will need to hold for now
- Follow hemoglobin, maintain active type and screen
#2. Ventilator dependent respiratory failure
- Continue with mechanical ventilation with daily SAT/SBT as able
- Vent adjustments based on daily blood gas
- Chest x-ray 02/13 without acute findings, ET tube appropriate, cardiomegaly
- Titrate FiO2 + PEEP to maintain SpO2 >90-94%
- Keep plateau pressure <30, presently 16, peak pressure 18
- ETT suctioning as needed
- Aspiration precautions
- Lightly sedated with goal RASS 0 to -2
- Sedation vacation daily, no plans for extubation at this time
#3. Circulatory shock
- Likely related to sedation with septic shock in the setting of A-fib with RVR and HFrEF
- Continue with Levophed and titrate down as tolerated while keeping MAP >65
- Trend WBC and monitor for fevers
- Also CT A/P from 02/07/2025 still shows circumferential wall thickening in the distal small bowel suggestive of enteritis
- Patient now on micafungin/meropenem. Zosyn discontinued per ID, may be contributing to drug fever
- Follow cultures, follow fever curve, follow leukocytosis
#4. Acute mesenteric ischemia with SMA occlusion, likely embolic, s/p ex lap with SMA embolectomy (on 01/27/2025), followed by delayed abdominal wall closure with ex lap and partial omentectomy (on 01/28/2025)
- heparin had to be discontinued due to abdominal hematoma, follow-up
- NG to suction as stated above, await return of bowel function
- Resume anticoagulation once stabilized
#5. Acute on Chronic heart failure with reduced ejection fraction, LVEF 10 to 15% with history of occlusive thrombus in MELISSA in the past
-Likely the source of embolic event to SMA
-Monitor input and output closely
-Lasix per cardiology
#6. Atrial fibrillation with rapid ventricular rate
- Continue amiodarone gtt
- Now off cardizem gtt
- IV lopressor on hold
- Cardiology service on case
- Heparin drip for anticoagulation has been held due to abdominal hematoma
- LUIS ENRIQUE 01/04/2025 with EF 10 to 15%, normal RV size and function, moderate to severe TR, large occlusive thrombus in left atrial appendage
#7. Hyperglycemia
- HbA1c 6.3 on 01/27/2025
- Started insulin drip on 02/08 given he is critically ill with hyperglycemia - this is now weaned off; will resume ISS q6hr
#8. Abnormal urinalysis concerning for UTI
- UA on 02/05/2025 was positive for nitrites, with +1 leukocyte esterase and 6�10 urine WBC
- Ceftriaxone changed to Zosyn on 02/07/2025 in setting of small bowel perforation with sepsis
-Now on meropenem per ID. Follow cultures
Gi Prophylaxis: PPI IV
DVT ppx: Heparin gtt held
Given thromboembolic phenomenon, DVT despite maintaining heparin therapy, high doses of heparin therapy required, may benefit from hematology evaluation
Will discuss with primary service
Continue ICU level care for this critically ill patient.
Critical care statement: A total of 35 minutes of critical care time was provided for this patient today. This includes management of unstable vital signs, evaluation of the patient at bedside, reviewing the patient's pertinent medical records
including radiographs, microbiology, laboratory evaluations, and discussion with primary team, consultants, pharmacy, nutrition, physical therapy, case management, charge nurse, critical care nursing, and respiratory therapy.
Data:
CTA Abd/Pelvis w/wo IV contrast 01/27/2025:
Thrombosis of superior mesenteric artery branches, new since prior examination.
No bowel thickening or pneumatosis to suggest bowel ischemia.
No acute inflammatory changes within the abdomen or pelvis.
Mild diverticulosis without acute diverticulitis.
Stable fatty infiltration of liver. Stable low-attenuation right adrenal mass 1.3 cm, most consistent with benign adenoma.
Hazy attenuation in the dependent lung bases. Groundglass attenuation. Small bilateral pleural effusions. Possible mild pulmonary edema and/or atelectasis.
CT A/P w IV and oral contrast 02/07/2025:
New mild intraperitoneal free air indicating a perforated viscus. The exact location is difficult to discern, but distribution of free air greatest in the anterior mid to upper abdomen near the persistently dilated proximal small bowel loops that
again contain air-fluid levels. Long segment distal small bowel smaller in caliber with circumferential wall thickening suggestive of an enteritis.
Subjective Dataa
Subjective Data
Date of Service:
Date of Service: February 13, 2025
Chief Complaint: [employer] Follow Up
Subjective:
Patient remains critically ill. Events overnight noted. Increased abdominal distention. Blood was evacuated from the abdomen per surgery this morning, heparin drip has been stopped. Hemoglobin remained stable throughout the day.
Objective Data
Data Reviewed
Vital Signs / I&O / Oxygen:
Vital Signs
Temp Pulse Resp BP Pulse Ox
100.3 F 82 19 115/54 98
02/13/25 07:16 02/13/25 06:00 02/13/25 06:00 02/12/25 12:27 02/13/25 06:00
Intake and Output
02/12/25 02/13/25 02/14/25
06:59 06:59 06:59
Intake Total 2829.3 / 2969.9 3525.8 / 3525.8
Output Total 1885 / 2110 3700 / 3700
Balance 944.3 / 859.9 -174.2 / -174.2
SaO2 [ASV] 98
SaO2 [A/C] 99
SaO2 98
Nasal Cannula flow liters per 2
minute
Physical Exam
General: Comfortable and Other (Left upper extremity midline, right upper extremity PICC, left upper extremity A-line)
HEENT: Normocephalic and Other (ETT in place)
Cardiovascular: S1-S2, Irregular Rhythm (Irregularly irregular), Murmur (n), Rub (n) and Peripheral Edema (negative)
Respiratory: Wheeze (negative), Crackles (n), Rhonchi (few), Non-Labored Respirations, Stridor (negative) and ET Tube (Mechanical breath sounds heard bilaterally)
GI: Soft, Distended (Abdominal binder in place) and Other (KIKI drain, mild serosanguineous fluid)
Neurology: No Motor Deficits (Spontaneously moving extremities, arousable) and Other (Sedated, but arousable)
Skin: Warm, Dry, Cyanosis (negative) and Rash (n)
Labs/Micro/Reports
Lab Data
02/13/25 05:02
02/13/25 00:37
Laboratory Results
02/12/25 02/12/25 02/13/25
11:09 17:09 00:37
APTT 75.7 H 106.8 H 89.1 H
pH 7.43
pCO2 37
pO2 105
HCO3 24.6
O2 Delivery Level
Microbiology
02/07/25 18:36 Blood/Venous Blood Culture - Final
No Growth - Final Report
02/11/25 13:11 Blood/Venous Blood Culture - Preliminary
No Growth in 24 hours- Final report to follow
02/11/25 15:30 Abdomen Gram Stain - Preliminary
02/11/25 15:30 Other-Please specify - Other Fungal Culture - Preliminary
Culture in progress.
Positive cultures are reported as soon as detected.
Final report to follow in four to five weeks.
02/11/25 14:22 Feces/Stool C. difficile GDH Antigen & Toxins - Final
Negative for toxigenic C.difficile
02/11/25 10:41 Nasal Swab Influenza Types A & B (SHERLYN) - Final
Negative for Influenza A & B, NAAT
Negative results must be combined with clinical observations
and patient history.
Nucleic Acid Amplification test (NAAT)performed on the
[employer] platform.
02/09/25 09:21 Urine Urine Culture - Final
NO GROWTH
--- NOTE | 2025-02-13 07:55 | PTCARENOTE ---
Addendum entered by Paulina Crane RN 02/13/25 10:35:
Heparin gtt turned off per .
Original Note:
and Mackenzie Gray PAC at bedside to evaluate pt's abdomen. Entire saturated abdominal dressing removed. Copious sanguinous drainage noted. applying pressure to abdomen...attempting to drain hematoma. Area cleaned w/ multiple
4x4's....4x4's and silk tape applied. Abdominal binder to be applied. Will update .
--- NOTE | 2025-02-13 08:11 | PN.DE.MGMTRT ---
Insulin Management
- -
02/13/2025: Diabetes Management Follow up
Patient admitted 01/27 with abdominal pain and SOB PMH: A-fib, hyperthyroidism, chronic HFrEF, LLE arterial occlusion due to thromboembolism (06/2023), h/o acute limb ischemia of RLE with thromboembolic occlusion of the right iliac system s/p
thromboembolectomy of the right iliac system + thromboembolectomy of the right SFA, popliteal artery. Prior to admission was taking Jardiance 10mg daily. A1C 6.3%, Cr 1.1, eGFR >60.
CTA showed thrombosis of the SMA s/p ex lap with thromboembolectomy of SMA and placement of an AbThera Vac 01/27/25. Postoperatively he was started on the glycemic protocol due to hyperglycemia.
Pt is intubated sedation weaned and weaning trial started. Patient required to be placed to vent with cycled breathing and sedation restarted, unable to discuss diabetes care plan.
POD 2 s/p exploratory laparotomy, mesenteric ischemia, abdominal washout.
POD #6 s/p exploratory laparotomy with small bowel resection.
POD 15 s/p closure of abdomen
POD# 16 exploratory laparotomy, mesenteric angiography, partial omentectomy, tap block, abdominal closure
Remains NPO, on TPN. Transitioned off glycemic protocol on 02/10 at 7AM to moderate corrective Q6 hrs
Glucose stable and in range, 133 to 182, FBG 142 this AM, has required only 1 unit corrective insulin in past 24 hours.
Will make no changes to current regimen: Cont moderate corrective Q6 hrs
Discussed with nurse. Will cont to follow.
Diabetes History
- -
Type of Diabetes: 2
Pre-Admission Diabetes Regimen
02/13/25
00:37
Creatinine 1.0
Lab Results
Hemoglobin A1c 6.3 % (4.0-5.6) H 01/27/25 14:42
Insulin Pump Settings
IP Diabetes Regimen
02/12/25 02/12/25 02/13/25
11:49 17:36 00:18
Glucose
POC Glucose 182 H 144 H 145 H
02/13/25 02/13/25
00:37 06:14
Glucose 144 H
POC Glucose 142 H
Patient Education
[2025-02-13] MEDS: MYCAMINE 105 MG IV (09:52)
--- NOTE | 2025-02-13 10:58 | W.PN.CARDCBS ---
Today's Communication / Plan
-
Continue IV amiodarone. A-fib remains rate controlled.
Had bleeding this morning. Hold heparin and follow hemoglobin and transfuse as needed
Will give Lasix 40 mg IV today and follow daily weights. Creatinine remains normal.
Hopefully does not need to go back to the emergency room.
Long-term prognosis is poor.
Impression / Plan
-
.
Primary Cyber Security Administrator: Dr. Pickett
Primary EP: Dr Solorio
PCP: Dr Peñaloza
HPI: Patient with history of cardioembolic occlusion of left common femoral artery 06/2023, right iliac artery occlusion status post thromboembolectomy 10/29/2024. During that time was also noted to be in persistent rapid A-fib initially discovered
07/2023 with history of noncompliance with medications. Also with known low EF suspected tachycardia mediated status post cath 05/2024 with nonobstructive CAD.
He presented back to the ED 11/2024 due to generalized malaise and was noted to have a seroma of his right groin s/p I/D and wound vac. He was also found to be in decompensated heart failure with reduced ejection fraction and have atrial
fibrillation with rapid ventricular rates. Plan for LUIS ENRIQUE cardioversion but LUIS ENRIQUE 01/04/2025 showed massive occlusive thrombus in left atrial appendage. Most recently, presented on 01/27/2025 with acute onset abdominal pain found to have acute
mesenteric ischemia with SMA occlusion, went to OR for exploratory laparotomy and SMA thrombectomy. Postop shock with metabolic/lactic acidosis, on Levophed and intubated. Cardiology consulted for management of atrial fibrillation and heart failure
Impression:
Acute mesenteric ischemia with SMA occlusion, status post exploratory lap and SMA thrombectomy 01/27/2025 and redo OR 02/07/2025 and OR 02/08/2025
Acute hypoxemic respiratory failure
Shock with metabolic/lactic acidosis
Right groin seroma
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
Persistent atrial fibrillation, first discovered July 2023
Non-IL myocardial injury
Chronic OAC with eliquis
Left atrial appendage thrombus by LUIS ENRIQUE 12/2024
Chronic HFrEF
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
NSVT
Hyperthyroidism
Noncompliance
Depression
History of ETOH and tobacco abuse
Obesity
Ventilator dependent respiratory failure
ECHO 04/04/2024: EF 10 to 15%, severe global hypokinesis, mild MR, trace TR, PAP 30 to 33 mmHg
Cardiac catheterization 05/22/2024: Nonobstructive coronary disease with normal to mildly elevated right and left-sided filling pressures with normal cardiac output
Echocardiogram 10/30/2024: Severely dilated left ventricle, severely reduced LV systolic function, global hypokinesis with ejection fraction of 5-10%, moderate to severe eccentric TR with PA pressure of 30-35 mmHg, small pericardial effusion.
LUIS ENRIQUE 01/04/2025: LVEF 10 to 15%, definite massive occlusive thrombus in left atrial appendage, mild MR, moderate to severe TR
Plan:
He had more bleeding this morning and hemoglobin down to 9.2. Continue to follow. Okay to hold IV heparin for now. Hopefully he does not need to go back to the operating room. Will reassess need for heparin in AM.
Will give IV Lasix today 40 mg x 1.
Unfortunately continues to spike fevers and remains critically ill.
Continue IV amiodarone drip for A-fib control. Hold on IV Lopressor. Blood pressure remains overall stable.
Continue meropenem and micafungin for infection.
He has had 3 cardiac embolic events in the past 9 months felt to be due to noncompliance. Continue IV heparin and eventually restart Eliquis.
His severe LV dysfunction is likely tachycardia mediated and related to noncompliance.
Long-term plan would likely be to repeat transesophageal echo (given large occlusive thrombus in left atrial appendage) if he recovers from abdominal procedures and then make a plan regarding risk of ablation.
Discussed with nursing.
Progress Note - Cyber Security Administrator
Subjective
Date of Service: February 13, 2025
Had more bleeding from abdominal wound today. Remains intubated and sedated. Hemoglobin currently stable.
Objective
Labs:
02/13/25 05:02
02/13/25 00:37
Labs
Hgb 9.2 g/dL (13.0-18.0) L 02/13/25 05:02
Hct 28.5 % (39.0-52.0) L 02/13/25 05:02
Plt Count 289 10^3/uL (130-400) 02/13/25 00:37
PT 18.0 Sec (11.4-14.6) H 01/28/25 06:36
INR 1.46 01/28/25 06:36
APTT 89.1 Sec (23.4-35.0) H 02/13/25 00:37
Sodium 140 mmol/L (135-145) 02/13/25 00:37
Potassium 4.3 mmol/L (3.5-5.1) 02/13/25 00:37
BUN 50 mg/dl (9-20) H 02/13/25 00:37
Creatinine 1.0 mg/dL (0.7-1.3) 02/13/25 00:37
Glucose 144 mg/dl (70-99) H 02/13/25 00:37
Vital Signs and I&O:
Vital Signs
Temp Pulse Resp BP Pulse Ox
100.3 F 82 19 115/54 99
02/13/25 07:16 02/13/25 06:00 02/13/25 06:00 02/12/25 12:27 02/13/25 08:01
Vital Signs
Temp Pulse Resp BP Pulse Ox
100.3 F 82 19 115/54 99
02/13/25 07:16 02/13/25 06:00 02/13/25 06:00 02/12/25 12:27 02/13/25 08:01
Intake & Output
02/11/25 02/12/25 02/13/25 02/14/25
06:59 06:59 06:59 06:59
Intake Total 3937.5 / 4066.1 2829.3 / 2969.9 3525.8 / 3663.9 583.4 / 583.4
Output Total 4790 / 4890 1885 / 2110 3700 / 3800 420 / 420
Balance -852.5 / -823.9 944.3 / 859.9 -174.2 / -136.1 163.4 / 163.4
Physical Exam
Physical Exam
GEN: No distress, intubated, sedated
HEENT: supple, anicteric, mmm
LUNGS: scatt rhonchi
CV: Irreg, S1/S2, 1/6 syst LSB, no gallop
ABD: soft, BS dec, + distended
EXT: No edema
NEURO: Gross non-focal
SKIN: No rash
[2025-02-13 11:37] LABS: Hemoglobin 9.3 g/dL (13.0-18.0)
[2025-02-13] MEDS: LASIX 40 MG IV (11:37)
--- NOTE | 2025-02-13 11:37 | W.PN.CRS1 ---
Today's Communication / Plan
-
pressure dressing/abdominal binder
hold heparin gtt
tpn
Assessment/Plan
-
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
POD 2 exlap, small bowel anastomosis, abdominal wall closure, bilateral cutaneous advancement flaps
POD 5 take-back, abdominal washout, replacement of vac
POD 6 exlap, SBR of ~120cm, left in discontinuity and open due to worsening septic shock, placed abthera vac
POD 15 takeback, abdominal closure
POD 16 ex lap SMA thromboembolectomy by Dr. Wilkerson; intraoperative consult for mesenteric ischemia without overt signs of necrosis
Tmax 101.6, off pressors
WBC 18.9 (21.2), Hb 9.2 (9.8, 11.0)
--Pressure dressing applied to midline wound. If saturated please notify colorectal surgeon on-call.
--Hold heparin drip for at least 24 hours. We will reevaluate in the a.m.
--Abdominal binder at all times
--Would prefer remaining intubated today, may require more surgery
�Continue n.p.o. with NGT
� Continue TPN until tolerating solid food
� Continue Zosyn and micafungin; f/u cultures, appreciate ID. Monitor leukocytosis.
� Appreciate hospitalist
- Maintain subq KIKI drain
Subjective Data
Procedure
01/27/2025- Ex lap, SMA embolectomy
01/28/2025- Exploratory laparotomy, mesenteric angiography, partial omentectomy, tap block, abdominal closure
02/07/2025- Exploratory laparotomy, small bowel resection, lysis of adhesions, placement of ABThera wound VAC
02/08/2025- Exploratory laparotomy, abdominal washout, mesenteric angiography with spy, placement of ABThera VAC
02/11/2025- exlap, small bowel anastomosis, abdominal wall closure, bilateral cutaneous advancement flaps
Subjective Data
Date of Service: February 13, 2025
Patient is intubated and sedated. Earlier this morning it was noted that the patient's abdomen became distended. An x-ray was ordered which showed postsurgical changes.
Objective Data
-
Vital Signs
Temp Pulse Resp BP Pulse Ox
101 F H 82 19 115/54 99
02/13/25 10:58 02/13/25 06:00 02/13/25 06:00 02/12/25 12:27 02/13/25 11:09
Intake & Output
02/12/25 02/13/25 02/14/25
06:59 06:59 06:59
Intake Total 2829.3 / 2969.9 3525.8 / 3663.9 688.5 / 688.5
Output Total 1885 / 2110 3700 / 3800 540 / 540
Balance 944.3 / 859.9 -174.2 / -136.1 148.5 / 148.5
Intake:
IV fluids (Total) 1362.3 / 1433.9 1589.8 / 1658.9 213.5 / 213.5
Amiodarone 367.5 / 384.2 400.8 / 417.5 83.5 / 83.5
Fentanyl 165.0 / 172.5 145.0 / 150.0
Heparin 513 / 546 792 / 825 33 /
Propofol 316.8 / 331.2 252.0 / 266.4 72.0 / 72.0
IV piggybacks 255 / 255 100 / 100 100 / 100
TPN/PPN 1027 / 1096 1656 / 1725 345 / 345
Amount instilled into GI Tube ( 185 / 185 180 / 180 30 / 30
Total)
[place] 185 / 185 180 / 180 30 / 30
Output:
Drain Output (Total) 55 / 55 135 / 135 70 / 70
[place] / 55 135 / 135 70 / 70
Gastrointestinal tube output ( 100 / 225 300 / 300
Total)
[place] 100 / 225 300 / 300
Urine, Wilkerson 1730 / 1830 3265 / 3365 470 / 470
Other:
Number of unmeasured liquid
stools
Rectum 1
Lab Results
02/13/25 11:28
02/13/25 00:37
Physical Exam
-
General: Other (Intubated and sedated)
Abdomen: Distended (Over midline incision)
Incision: Other (Incision was palpated and elizabeth amounts of old dark blood was extruded from the wound. A pressure dressing was placed on top after all blood was extruded.)
[2025-02-13] MEDS: NOVOLOG FLEXPEN-MODERATE RESISTANCE 1 UNITS SC (11:44)
--- NOTE | 2025-02-13 11:49 | W.PN.ID1 ---
Date of Service
Date of Service: February 13, 2025
Today's Communication
Continue antibiotics. See below�
Assessment / Plan
Ongoing fevers
- ?infection ?post-op ?drug fever.
Leukocytosis
Mesenteric ischemia with perforation and necrotic bowel
- s/p washout and primary abdominal closure (02/11/2025)
VDRF
Severely dilated cardiomyopathy with markedly diminished EF
Hx A-fib
Recommendations:
Multiple possible etiologies of fever and leukocytosis, including drug fever, versus ongoing abdominal process.
- Given persistence of fever, drug fever becomes higher on the differential.
- check duplex US of upper lower extremities to assess for thrombus
Continue with meropenem (day #3) and micafungin (day #6)
C. difficile is negative.
Abdominal fluid cultures are pending.
Follow white count and temperature curve.
Continue with supportive care.
Patient remains critically ill, vent dependent and in intensive care unit
����������������������������������������������������������
Chief Complaint
-: Fever and Leukocytosis
Subjective / Review of Systems
Patient seen and examined. Remains in ICU, on vent. Bleeding noted from abdominal wound today. Fevers persist.
Vital Signs / Physical Exam
Vital Signs
Vital Signs
Temp Pulse Resp BP Pulse Ox
101 F H 98 19 125/67 99
02/13/25 10:58 02/13/25 11:37 02/13/25 06:00 02/13/25 11:37 02/13/25 11:09
Physical Exam
Constitutional: Acutely Ill and Non-toxic
Head: Normocephalic
Eyes: No Conjunctival Hemorrhage
Oropharyngeal: Other (ET tube in place. NG tube in place.)
Cardiovascular: Regular Rate (Tachycardic) and S1/S2; Negative S3/S4
Pulmonary: Clear and Other (ET tube to vent.)
Gastrointestinal: Soft, Decreased Bowel Sounds, No Rebound, No Guarding and Other (Abdominal binder in place.)
Genito-Urinary: Wilkerson and Clear Urine
Extremities: Edema (2+ bilateral lower extremity edema); Negative Cyanosis or Erythema
Neurological: Other (Arousable to touch.)
Lines: PICC
Objective Data
Lab Data
Lab Results
02/13/25 11:28
02/13/25 00:37
PT 18.0 Sec (11.4-14.6) H 01/28/25 06:36
INR 1.46 01/28/25 06:36
APTT 89.1 Sec (23.4-35.0) H 02/13/25 00:37
Estimated Creat Clear 105 ml/min 02/13/25 00:37
Lactic Acid 1.1 mmol/L (0.7-2.0) 02/09/25 04:00
Total Bilirubin 6.5 mg/dl (0.2-1.3) H 02/12/25 03:51
AST 36 U/L (17-59) 02/12/25 03:51
ALT 35 U/L (0-50) 02/12/25 03:51
Alkaline Phosphatase 108 U/L (38-126) 02/12/25 03:51
Most recent labs reviewed.
Micro Results:
02/11/25 15:30 Wound Culture - Preliminary
Abdomen Gram Stain - Preliminary
02/11/25 15:30 Anaerobic Culture - Preliminary
Other-Please specify - Other Culture pending. Anaerobic cultures are examined after 3
days incubation. Additional information to follow.
02/07/25 18:36 Blood Culture - Final
Blood/Venous No Growth - Final Report
02/11/25 13:11 Blood Culture - Preliminary
Blood/Venous No Growth in 24 hours- Final report to follow
02/11/25 15:30 Fungal Culture - Preliminary
Other-Please specify - Other Culture in progress.
Positive cultures are reported as soon as detected.
Final report to follow in four to five weeks.
02/11/25 14:22 C. difficile GDH Antigen & Toxins - Final
Feces/Stool Negative for toxigenic C.difficile
02/11/25 10:41 Influenza Types A & B (SHERLYN) - Final
Nasal Swab Negative for Influenza A & B, NAAT
Negative results must be combined with clinical observations
and patient history.
Nucleic Acid Amplification test (NAAT)performed on the
[employer] platform.
02/09/25 09:21 Urine Culture - Final
Urine NO GROWTH
01/27/25 12:14 Blood Culture - Final
Blood/Venous No Growth - Final Report
01/27/25 21:32 MRSA Screen - Final
Nose No Methicillin Resistant Staphylococcus aureus isolated.
Imaging:
02/11/2025 CXR (portable): Hazy opacification along both lower lungs without significant change. No significant pleural effusion is noted.
Care Review
Plan reviewed with: Physician (Critical Care)
[2025-02-13 11:54] LABS: Glucose - Point of Care 159 mg/dl (70-99)
--- NOTE | 2025-02-13 12:00 | PTCARENOTE ---
Repeat hgb 9.3....Mackenzie Gray PAC made aware. Left radial jonh redressed due to diaphoresis. Pt remains intubated and sedated on ventilator. No major changes in physical assessment. VS documented. Will continue to monitor closely.
--- NOTE | 2025-02-13 16:00 | PTCARENOTE ---
Ultrasounds done per MD orders. Pt remains intubated and sedated. No major changes in physical assessment. Abdominal dressing and binder assessed per . Dressing dry and intact...abdomen soft to touch. PRN fentanyl provided per order.
VS documented. Will continue to monitor closely.
[2025-02-13 17:39] LABS: Glucose - Point of Care 149 mg/dl (70-99)
--- NOTE | 2025-02-13 19:10 | PTCARENOTE ---
Addendum entered by Caren Johnson RN 02/14/25 01:36:
Abdominal binder in place.
Original Note:
Patient received lying in bed, lightly sedated on Propofol and Fentanyl. He rouses easily to voice and light tactile stimuli. His brow is furrowed and he acknowledges pain when asked. Prn Fentanyl IV given for pain, see MAR. Fentanyl gtt increased,
see flowsheet. Propofol temporarily increased for adequate sedation/patient comfort. BBS with scattered crackles, right more coarse than left. Oral care rendered with large amount of thick clear robles secretions suctioned orally. Moderate thick white
secretions via ETT. #8ETT 26cm on the left, Vent settings verified. S1S2 distant and irregular, Afib on CM. Mild generalized anasarca with BUEs edema 2+ and BLE edema 1+. Bilateral arms elevated on pillows. SCDs BLEs. Positive pulses x 4
extremities. NGT via left nare taped in place. Flushed and to LCS with dark bile green drainage. No bowel sounds audible BUQ of abdomen, Very hypoactive bowel sounds BLQ. Wilkerson cath patent draining dark nicole urine. Core temp 101.6F. Room
temperature cooled and excess linens removed. Midline abdominal incision with dressing CDI. Right KIKI drain to bulb suction with small amount of sanginous drainage. Abdomen soft and tender to palpation. Right arm PICC with TPN and Amiodarone
infusing. Left arm Midline with Propofol and Fentanyl infusing. Left arm #22 IV sites x 2 with good blood return and flush easily. Left hand SL does not flush, leaking, discontinued, catheter intact. Left arm [place] leveled and zeroed prn. Good
waveform with fair square wave--left arm repositioned. Bilateral soft wrist restraints checked and retied, checked every 2 hours. Repositioned every 2 hours. Hourly rounding. HOB up 30 degrees.
--- NOTE | 2025-02-13 19:18 | PTCARENOTE ---
vital signs pulled from 1400. Unable to verify vital signs from [id number].
[2025-02-13] MEDS: SUBLIMAZE 100 IV (20:04)
[2025-02-13 20:30] LABS: Hemoglobin 8.9 g/dL (13.0-18.0)
[2025-02-13] MEDS: Parenteral Nutrition, Central 1660 IV (21:24)
[2025-02-13 22:30] VITALS: BP 118/53
--- NOTE | 2025-02-13 22:55 | W.PN.UPDATE ---
Update Note
Progress Note Update
[address] scanner breathing in the 50s on bipap. Decision made to intubate.�
0140. Patient intubated successfully. CT results showed, large amount of free air in abdomen. [place] updated. OR being formed for procedure.�
0145. Patient hemodynamically unstable. Started on levophed, Significant metabolic acidosis resulting sodium bicarbonate given. Patient started on Zosyn. �
Refractory hypotension: Lactic ringer bolus. Vasopressin started. Family updated multiple times.�
0230 Dr Vance at bedside to evaluate.�
--- NOTE | 2025-02-14 | PTCARENOTE ---
Essentially no change in patient's physical assessment. Left lung more clear after suctioning. Right lung continues with coarse crackles. Complete cares given, hair washed, candelaria care. Complete linen change. ETT position changed to the right. Oral
care and suctioning, ETT suctioning for moderate amount. Midline abdominal dressing remains CDI, abdominal binder replaced.
[2025-02-14] MEDS: NOVOLOG FLEXPEN-MODERATE RESISTANCE SC ×3 (00:22→17:41)
[2025-02-14 00:32] LABS: Glucose - Point of Care 143 mg/dl (70-99)
[2025-02-14] MEDS: MERREM 500 MG IV ×4 (03:42→21:03)
[2025-02-14] MEDS: STERILE WATER FOR INJECTION 10 ML IV ×4 (03:43→21:03)
[2025-02-14] MEDS: SUBLIMAZE 50 MCG IV ×10 (04:09→22:21)
--- NOTE | 2025-02-14 04:15 | PTCARENOTE ---
Moderate thick secretions via ETT and orally, oral care. Midline abdominal dressing remains CDI, abdomen soft, no improvement in bowel sounds. Am labs drawn via PICC. Temp 100.6F core, stable. BP stable. Afib 90s on CM. BBS with some improvement,
KEVEN clear, bilateral bases diminished, RUL fine crackles. Prn IV Fentanyl and Fentanyl gtt increased to 125mcg/hr due to patient acknowledgement of ongoing abdominal discomfort, grimacing and tense, CPOT 5-6.
[2025-02-14 04:25] LABS: Hematocrit 26.1 % (39.0-52.0); Hemoglobin 8.5 g/dL (13.0-18.0); Mean Corp Hgb Conc. 32.6 g/dL (33.0-37.0); Mean Corpuscular Hgb 32.9 pg (27.0-31.0); Mean Corpuscular Volume 101.2 fL (80.0-94.0); Platelet Count 308 10^3/uL (130-400); Red Blood Cell Count 2.58 10^6/uL (4.70-6.10); Red Cell Dist. Width 16.4 % (11.5-14.5); White Blood Cell Count 18.3 10^3/uL (4.8-10.8)
[2025-02-14 04:27] VITALS: BMI 34.6
[2025-02-14 04:50] LABS: Blood Urea Nitrogen 50 mg/dl (9-20); Calcium 8.1 mg/dl (8.4-10.2); Carbon Dioxide 28 mmol/L (22-30); Chloride 110 mmol/L (98-107); Estimated Creatinine Clearance 115 ml/min; Glucose 130 mg/dl (70-99); Magnesium 2.3 mg/dl (1.6-2.3); Potassium 4.5 mmol/L (3.5-5.1); Sodium 143 mmol/L (135-145); eGFR > 60.00
--- NOTE | 2025-02-14 05:00 | PTCARENOTE ---
Patient acknowledges improvement of pain, shakes head yes when asked if pain is better.
[2025-02-14 05:11] LABS: INR 1.19; PT 15.6 Sec (11.4-14.6)
[2025-02-14 05:12] LABS: APTT 26.5 Sec (23.4-35.0); Fibrinogen 546 MG/DL (199-459)
[2025-02-14 05:20] LABS: D-Dimer 4.66 ug/mlFEU (0.00-0.50)
[2025-02-14] MEDS: DIPRIVAN 100 IV (05:55)
[2025-02-14] MEDS: SUBLIMAZE 100 IV ×3 (06:01→20:59)
[2025-02-14 06:09] LABS: TSH Reflex To Free T4 0.15 uIU/ml (0.47-4.68)
--- NOTE | 2025-02-14 06:09 | W.PN.HOSP.TC ---
Today's Communication/Plan
-
see a/p
Assessment / Plan
Assessment / Plan
Physical Exam
General: Obese
HEENT: Normocephalic, Atraumatic, intubated
Respiratory: Clear to Auscultation bilaterally
Cardiac: Normal S1/S2, tachycardic rate and irregular rhythm
GI: Soft, distended, incision dressed
Extremities: No Clubbing, No Cyanosis
Neuro: awake alert following commands
59M hx dilated cardiomyopathy, EF 5-10%, afib LV thrombus on AC non-compliant, left lower extremity arterial occlusion due to thromboembolism 07/06 and acute limb ischemia RLE s/p thromboembolectomy 11/06 presented to the ER with abdominal pain and
shortness of breath. 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 Post-op course complicated with
ileus.
A/P:
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
Post-op Ileus
Fever unknown origin possibly infectious vs drug fever
-appreciate vascular, CRS, Deburrer consults
-s/p OR 01/27: thromboembolectomy of SMA, placement ABThera Vac
-s/p OR 01/28: exploratory laparotomy, mesenteric angiography, partial omentectomy, tap block, abdominal closure
-s/p IV Zosyn - completed 7 day course, however fever/leukocytosis persist
-TPN initiated on 02/02
-02/07, CT abdomen and pelvis showed new mild intraperitoneal free air indicating a perforated viscus
-s/p OR 02/07: exploratory laparotomy, small bowel resection, lysis of adhesions, placement of ABThera wound VAC
-Continue NPO, NGT, TPN
-ID eval appreciated empiric IV zosyn switched to meropenem continue, micafungin completed
-cont IV tylenol prn, attempted once IV ibuprofen 02/12/25, ice packs prn
-wean Levophed as tolerated
-Returned to OR with CRS 02/11/2025 exploratory lap, small bowel anastomosis, abd wall closure, bilateral cutaneous advancement flaps,repeat wound culture results pending
-02/13/25 developed increased abd distension firmness w/ associate drop in hgb overnight, CRS eval appreciated 200-300 mL of dark sanguinous blood expressed from midline wound likely subcutaneous bleed, abd binder applied and hep gtt briefly held
since resumed
-Trend fever and white count
Hypoxic Respiratory Failure status post intubation
-Appreciate inventory control specialist input, continue vent management as per inventory control specialist
Hypokalemia
Hypophosphatemia
-monitor and replete as necessary
Toxic metabolic encephalopathy
-Monitor
Permanent AFIB with RVR
Left atrial appendage thrombus
-Status post Cardizem drip
-appreciate Cardiology, continue IV amiodarone drip, IV heparin drip on hold as above
-IV metoprolol held due to hypotension/shock since resumed
-resume Metoprolol when able to take PO
-resume Eliquis when confirm no need for further procedures
Acute on chronic HFrEF (EF 5-10%)
-hold CLERICAL SECRETARY Entresto and Metop XL until patient can take PO meds
-IV Lasix as needed as per cardiology
-Trend creatinine, trend daily weights
-02/14 ECHO appreciated EF10-15% mod MR TR no significant change from prior ECHO
Bacteruria
-UA on 02/05/25 with bacteuria
-Was on Rocephin, changed to Zosyn, then meropenem as above
Hyperthyroid--new diagnosis last admission?--on methimazole but would hold for now
-repeat TSH here Low but T4 wnl
-cont methimazole hold
-repeat TFTs in 1 month
Type 2 diabetes
-well controlled on sliding scale
-cont glycemic control
PAD
Active smoker
smoking cessation counseled
DVT proph - IV heparin drip
Code status - Full Code
Total Critical Care Time__45__ minutes. I was immediately available to the patient and staff. I personally examined, reviewed labs, diagnostic images/reports, interpretations, treatment plans, discussed patient care with other providers, entered
orders as appropriate and documented the medical record.
Anticipated Discharge: > 48 hours
Subjective/Interval History
-
Date of Service: February 14, 2025
Intubated but awake alert following commands.
Objective Data
-
Labs:
Laboratory Results
02/13/25 02/14/25 02/14/25
20:17 03:58 04:43
WBC 18.3 H
Hgb 8.9 L 8.5 L
Hct 26.1 L
Plt Count 308
PT Cancelled 15.6 H
INR Cancelled 1.19
APTT Cancelled 26.5
Sodium 143
Potassium 4.5
Chloride 110 H
Carbon Dioxide 28
BUN 50 H
Creatinine 0.9
Glucose 130 H
Calcium 8.1 L
Vital Signs:
Vital Signs
Temp Pulse Resp BP Pulse Ox
100.6 F H 92 15 118/53 99
02/14/25 04:00 02/14/25 05:15 02/14/25 05:15 02/13/25 22:30 02/14/25 05:15
I&O
02/12/25 02/13/25 02/14/25
06:59 06:59 06:59
Intake Total 2829.3 / 2969.9 3525.8 / 3663.9 2899.2 / 2899.2
Output Total 1885 / 2110 3700 / 3800 4135 / 4135
Balance 944.3 / 859.9 -174.2 / -136.1 -1235.8 / -1235.8
--- NOTE | 2025-02-14 07:02 | PTCARENOTE ---
Report given verbally to oncoming shift, Jahaira BRANHAM. Questions answered.
[2025-02-14] MEDS: PROTONIX IV 40 MG IV (07:29)
[2025-02-14] MEDS: NSS (PRESERVATIVE FREE) 10 ML IV (07:29)
--- NOTE | 2025-02-14 07:44 | W.PN.INTV ---
Today's Communication / Plan
Recommendations
Plan to resume heparin per surgery
Follow hemoglobin. Abdominal exam improved.
Will pursue CPAP wean, no plans for extubation today, until pain requirement assessed
Repeat echocardiogram
Restart Lopressor IV. Remains on amiodarone
Assessment
-
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
thromboembolic occlusion of the right iliac system s/p thromboembolectomy of the right iliac system + thromboembolectomy of the right SFA, popliteal artery and profundo-femoral artery (10/2024) who presents with abdominal pain and SOB. 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 In the ER he was afebrile to 98.2 �F, pulse rate 135, breathing at 12 breaths/min, BP 162/110 and saturating 97% on room air. Initial
labs showed potassium 2.9, lactate 5.2, T. bili 2.1, and proBNP 4580. CTA A/P showed thrombosis of the SMA with small bilateral pleural effusions and groundglass attenuation in the bases of the lungs. He was given 40 mg IV Lasix in the ER,
Dilaudid 0.5 mg, potassium repletion, 1 L NS 0.9% and Zofran. Vascular surgery was consulted and given his significant abdominal pain of acute onset he was consented for the OR. He underwent exploratory laparotomy with thromboembolectomy of
superior mesenteric artery and placement of an AbThera VAC. Postoperatively he returned to the ICU intubated, and Resolution Expert services consulted for additional management/recommendations. Patient was extubated and improved, and subsequently
downgraded to the IMU on 01/31. He was downgraded to telemetry on 02/04 where he has been managed. Unfortunately on 02/05 he developed a small bowel obstruction. On 02/07, repeat CT A/P showed free air in the abdomen indicating a perforated viscus.
He went to the OR for an ex lap with small bowel resection and placement of an ABThera wound VAC, and is now transferred back to the ICU intubated.
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
Assessment and plan:
#1. 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
- Patient to OR on 02/08/2025 for an ex lap with abdominal washout and mesenteric angiography (no cultures sent)
- Patient to OR again 02/11 for abdominal washout and wound closure, culture sent positive Enterococcus
- Postoperative management as per colorectal surgery
- Pain control
- Continue NGT on low continuous wall suction per surgery
- Abdominal distention improved, abdominal binder in place. Hematoma evacuated per surgery at the bedside 4/2 am. Heparin drip discontinued 02/13 am, now plan to resume per surgery/cardiology 02/14
- Was on heparin drip as per colorectal surgery given his SMA occlusion. Plan to resume today 02/14
- Follow hemoglobin, maintain active type and screen
#2. Ventilator dependent respiratory failure
- Continue with mechanical ventilation with daily SAT/SBT as able
- Vent adjustments based on daily blood gas
- Chest x-ray 02/13 without acute findings, ET tube appropriate, cardiomegaly. Repeat chest x-ray in a.m.
- Titrate FiO2 + PEEP to maintain SpO2 >90-94%
- Keep plateau pressure <30, presently 16, peak pressure 18
- ETT suctioning as needed
- Aspiration precautions
- Sedation vacation today, transition to CPAP
- no plans for extubation today, assess pain requirements
#3. Circulatory shock
- Likely related to sedation with septic shock in the setting of A-fib with RVR and HFrEF
- Remains off pressors
- Trend WBC and monitor for fevers
- Also CT A/P from 02/07/2025 still shows circumferential wall thickening in the distal small bowel suggestive of enteritis
- Patient now on micafungin/meropenem. Zosyn discontinued per ID, may be contributing to drug fever
- Follow cultures, follow fever curve, follow leukocytosis
- Rev LUIS ENRIQUE from Dec 2024, large thrombus. Will repeat Echo
#4. Acute mesenteric ischemia with SMA occlusion, likely embolic, s/p ex lap with SMA embolectomy (on 01/27/2025), followed by delayed abdominal wall closure with ex lap and partial omentectomy (on 01/28/2025)
- heparin had to be discontinued due to abdominal hematoma, follow-up
- NG to suction as stated above, await return of bowel function
- Resume hep gtt today
- Reviewed oncology evaluation few weeks ago, hypercoagulable workup negative at that time. Fibrinogen normal, no evidence of DIC presently
#5. Acute on Chronic heart failure with reduced ejection fraction, LVEF 10 to 15% with history of occlusive thrombus in MELISSA in the past
-Likely the source of embolic event to SMA
-Monitor input and output closely
-Lasix per cardiology
#6. Atrial fibrillation with rapid ventricular rate
- Continue amiodarone gtt
- Now off cardizem gtt
- IV lopressor on hold, will resume today, hold parameters
- Reviewed with cardiology
- Heparin drip for anticoagulation has been held due to abdominal hematoma, plan to resume 02/14
- LUIS ENRIQUE 01/04/2025 with EF 10 to 15%, normal RV size and function, moderate to severe TR, large occlusive thrombus in left atrial appendage. Will repeat Echo
#7. Hyperglycemia
- HbA1c 6.3 on 01/27/2025
- Started insulin drip on 02/08 given he is critically ill with hyperglycemia - this is now weaned off; will resume ISS q6hr
#8. Abnormal urinalysis concerning for UTI
- UA on 02/05/2025 was positive for nitrites, with +1 leukocyte esterase and 6�10 urine WBC
- Ceftriaxone changed to Zosyn on 02/07/2025 in setting of small bowel perforation with sepsis
-Now on meropenem per ID. Follow cultures
Gi Prophylaxis: PPI IV
DVT ppx: Heparin gtt plan to resume 02/14
Continue ICU level care for this critically ill patient.
Critical care statement: A total of 37 minutes of critical care time was provided for this patient today. This includes management of unstable vital signs, evaluation of the patient at bedside, reviewing the patient's pertinent medical records
including radiographs, microbiology, laboratory evaluations, and discussion with primary team, consultants, pharmacy, nutrition, physical therapy, case management, charge nurse, critical care nursing, and respiratory therapy.
Data:
CTA Abd/Pelvis w/wo IV contrast 01/27/2025:
Thrombosis of superior mesenteric artery branches, new since prior examination.
No bowel thickening or pneumatosis to suggest bowel ischemia.
No acute inflammatory changes within the abdomen or pelvis.
Mild diverticulosis without acute diverticulitis.
Stable fatty infiltration of liver. Stable low-attenuation right adrenal mass 1.3 cm, most consistent with benign adenoma.
Hazy attenuation in the dependent lung bases. Groundglass attenuation. Small bilateral pleural effusions. Possible mild pulmonary edema and/or atelectasis.
CT A/P w IV and oral contrast 02/07/2025:
New mild intraperitoneal free air indicating a perforated viscus. The exact location is difficult to discern, but distribution of free air greatest in the anterior mid to upper abdomen near the persistently dilated proximal small bowel loops that
again contain air-fluid levels. Long segment distal small bowel smaller in caliber with circumferential wall thickening suggestive of an enteritis.
Subjective Dataa
Subjective Data
Date of Service:
Date of Service: February 14, 2025
Chief Complaint: Resolution Expert Follow Up
Subjective:
Patient remains critically ill. Complaining of more abdominal discomfort, requiring fentanyl as needed bolus. Arousable, following commands. During my assessment he is without abdominal pain, chest pain, shortness of breath. Remains on
volume-cycled ventilation. Hemoglobin remains stable
Objective Data
Data Reviewed
Vital Signs / I&O / Oxygen:
Vital Signs
Temp Pulse Resp BP Pulse Ox
100.4 F H 91 20 118/53 100
02/14/25 07:03 02/14/25 06:15 02/14/25 06:15 02/13/25 22:30 02/14/25 07:15
Intake and Output
02/13/25 02/14/25 02/15/25
06:59 06:59 06:59
Intake Total 3525.8 / 3663.9 2939.2 / 3050.7 111.5 / 111.5
Output Total 3700 / 3800 4660 / 4680
Balance -174.2 / -136.1 -1720.8 / -1629.3 91.5 / 91.5
SaO2 [ASV] 100
SaO2 [A/C] 99
SaO2 100
Nasal Cannula flow liters per 2
minute
Physical Exam
General: Comfortable and Other (Left upper extremity midline, right upper extremity PICC, left upper extremity A-line)
HEENT: Normocephalic and Other (ETT in place)
Cardiovascular: S1-S2, Irregular Rhythm (Irregularly irregular), Murmur (n), Rub (n) and Peripheral Edema (negative)
Respiratory: Wheeze (negative), Crackles (n), Rhonchi (few), Non-Labored Respirations, Stridor (negative) and ET Tube (Mechanical breath sounds heard bilaterally)
GI: Soft, Non Distended (Abdominal binder in place), NG Tube and Other (KIKI drain, mild serosanguineous fluid)
Neurology: No Motor Deficits (Spontaneously moving extremities, arousable) and Other (Sedated, but arousable)
Skin: Warm, Dry, Cyanosis (negative) and Rash (n)
Labs/Micro/Reports
Lab Data
02/14/25 03:58
02/14/25 03:58
Laboratory Results
02/14/25 02/14/25
03:58 04:43
PT Cancelled 15.6 H
INR Cancelled 1.19
APTT Cancelled 26.5
Microbiology
02/11/25 13:11 Blood/Venous Blood Culture - Preliminary
No Growth in 48 hours- Final report to follow
02/11/25 15:30 Abdomen Wound Culture - Preliminary
02/11/25 15:30 Abdomen Gram Stain - Preliminary
02/11/25 15:30 Other-Please specify - Other Anaerobic Culture - Preliminary
Culture pending. Anaerobic cultures are examined after 3
days incubation. Additional information to follow.
02/07/25 18:36 Blood/Venous Blood Culture - Final
No Growth - Final Report
02/11/25 15:30 Other-Please specify - Other Fungal Culture - Preliminary
Culture in progress.
Positive cultures are reported as soon as detected.
Final report to follow in four to five weeks.
02/11/25 14:22 Feces/Stool C. difficile GDH Antigen & Toxins - Final
Negative for toxigenic C.difficile
02/11/25 10:41 Nasal Swab Influenza Types A & B (SHERLYN) - Final
Negative for Influenza A & B, NAAT
Negative results must be combined with clinical observations
and patient history.
Nucleic Acid Amplification test (NAAT)performed on the
[employer] platform.
02/09/25 09:21 Urine Urine Culture - Final
NO GROWTH
--- NOTE | 2025-02-14 08:00 | PTCARENOTE ---
Received pt @ change of shift. Pt. intubated/sedated w b/l soft limb restraints/4 rails- see flow sheet. Pt. drowsy, awakens to verbal stimuli, nods head yes/no approp, able to follow simple commands, DRAKE/gen weakness. PERRLA 3mmm/sluggish. Afib
on monitor. SpO2 99% on vent settings ASV 100%/.40/+5. ETT #8.0/26 @ lip on R side. Auscultated coarse breath sounds w scattered rhonchi throughout. Suctioned for small amt clear secretions from ett; mod amt of clear oral secretions; mouth care
provided per protocol. Absent BS, abd round/tender to palpation. L nare NGT secured @ 70cm on low continuous suction, draining mod amts of green bile. R KIKI drain w sang drainage. Therm candelaria in place draining yellow urine. Dr. Wyatt to bedside
this AM. No further bleeding from midline incision overnight. Dressing changed by Dr. Wyatt @ bedside this AM. R DL PICC w amio and TPN infusing- see flow sheet. L midline w prop/fent- see flow sheet. #20 L FA patent, dressing c/d/i; KVO
infusing. L rad A-line transduced, calibrated, and monitored; all ports patent and secured. Pt. repositioned per protocol. Safe environment maintained.
[2025-02-14 08:46] VITALS: BP_SYST 140
[2025-02-14 09:03] VITALS: BP_SYST 140
--- NOTE | 2025-02-14 09:04 | W.PN.CRS1 ---
Today's Communication / Plan
-
as below
Assessment/Plan
-
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
POD 6 take-back, abdominal washout, replacement of vac
POD 7 exlap, SBR of ~120cm, left in discontinuity and open due to worsening septic shock, placed abthera vac
POD 16 takeback, abdominal closure
POD 17 ex lap SMA thromboembolectomy by Dr. Wilkerson; intraoperative consult for mesenteric ischemia without overt signs of necrosis
4/2 - 200-300mL dark blood expressed from midline, held hepgtt, applied pressure dressing and binder
4/3 - no additional bleeding, but 265mL of sanguinous output from subQ drain
Tmax 102.1, VSS, off pressors
WBC 18.3 from 18.9, Hb 8.5 from 8.9 from 9.3, CR 0.9
- Mesenteric ischemia, c/b perforation and 120cm of necrotic bowel, s/p open abdomen, s/p SB anastomosis with abdominal closure
-C/b subQ bleeding, seems to have stopped; cont abdominal binder for tamponade effect
� Repeat Hb at 10am, if stable, trial of restarting hep gtt; remains at high risk for bleeding but also high risk for complications of VTE
-Appreciate ICU
-Wean vent as tolerated, no plan for surgery at this time
-Cont pain control
-MAP >65
�Continue n.p.o. with NGT
� Continue TPN until tolerating solid food; hold on tube feeds due to NGT output
� Continue Zosyn and micafungin; f/u cultures, appreciate ID
� Appreciate hospitalist
Subjective Data
Procedure
01/27/2025- Ex lap, SMA embolectomy
01/28/2025- Exploratory laparotomy, mesenteric angiography, partial omentectomy, tap block, abdominal closure
02/07/2025- Exploratory laparotomy, small bowel resection, lysis of adhesions, placement of ABThera wound VAC
02/08/2025- Exploratory laparotomy, abdominal washout, mesenteric angiography with spy, placement of ABThera VAC
02/11/2025- exlap, small bowel anastomosis, abdominal wall closure, bilateral cutaneous advancement flaps
Subjective Data
Date of Service: February 14, 2025
Per nurse, no overnight events. No further bleeding events. No BMs. Having bilious output from the NGT.
Objective Data
-
Vital Signs
Temp Pulse Resp BP Pulse Ox
100.4 F H 110 20 118/53 99
02/14/25 07:03 02/14/25 09:03 02/14/25 09:03 02/13/25 22:30 02/14/25 09:03
Intake & Output
02/13/25 02/14/25 02/15/25
06:59 06:59 06:59
Intake Total 3525.8 / 3663.9 2939.2 / 3050.7 253.0 / 253.0
Output Total 3700 / 3800 4660 / 4680 120 / 120
Balance -174.2 / -136.1 -1720.8 / -1629.3 133.0 / 133.0
Intake:
IV fluids (Total) 1589.8 / 1658.9 952.2 / 994.7 85.0 / 85.0
Amiodarone 400.8 / 417.5 400.8 / 417.5 33.4 / 33.4
Fentanyl 145.0 / 150.0 180.0 / 195.0
Heparin 792 / 825
Propofol 252.0 / 266.4 338.4 / 349.2 21.6 / 21.6
IV piggybacks 100 / 100 220 / 220
TPN/PPN 1656 / 1725 1587 / 1656 138 / 138
Amount instilled into GI Tube ( 180 / 180 180 / 180 30 / 30
Total)
[place] Sump 180 / 180 180 / 180 30 / 30
Output:
Drain Output (Total) 135 / 135 265 / 265
[facility] 135 / 135 265 / 265
Gastrointestinal tube output ( 300 / 300 650 / 650
Total)
[place] Sump 300 / 300 650 / 650
Urine, Wilkerson 3265 / 3365 3745 / 3765 120 / 120
Lab Results
02/14/25 03:58
02/14/25 03:58
Physical Exam
-
General: No Acute Distress and Other (Intubated/sedated)
HEENT: Grossly Normal
Abdomen: Soft, Non Distended, Tender (Appropriately tender), No Guarding, No Rebound and Other (NGT-650 mL bilious, KIKI-265 mL sanguinous)
Skin: Warm and Dry
Wound: No Signs of Infection, Dressing Changed and No Skin Erythema
[2025-02-14 09:20] VITALS: BP_SYST 140
--- NOTE | 2025-02-14 09:35 | PN.DE.MGMTRT ---
Insulin Management
- -
02/14/2025: Diabetes Management Follow up
Patient admitted 01/27 with abdominal pain and SOB PMH: A-fib, hyperthyroidism, chronic HFrEF, LLE arterial occlusion due to thromboembolism (06/2023), h/o acute limb ischemia of RLE with thromboembolic occlusion of the right iliac system s/p
thromboembolectomy of the right iliac system + thromboembolectomy of the right SFA, popliteal artery. Prior to admission was taking Jardiance 10mg daily. A1C 6.3%, Cr 1.1, eGFR >60.
CTA showed thrombosis of the SMA s/p ex lap with thromboembolectomy of SMA and placement of an AbThera Vac 01/27/25. Postoperatively he was started on the glycemic protocol due to hyperglycemia.
Pt is intubated sedation weaned and weaning trial started. Patient required to be placed to vent with cycled breathing and sedation restarted, unable to discuss diabetes care plan.
POD 3 s/p exploratory laparotomy, mesenteric ischemia, abdominal washout.
POD #7 s/p exploratory laparotomy with small bowel resection.
POD 16 s/p closure of abdomen
POD# 17 exploratory laparotomy, mesenteric angiography, partial omentectomy, tap block, abdominal closure
Remains NPO, on TPN. Transitioned off glycemic protocol on 02/10 at 7AM to moderate corrective Q6 hrs
Glucose stable and in range, 142 to 159, FBG 130 this AM, has required only 1 unit corrective insulin in past 24 hours.
Will make no changes to current regimen: Cont moderate corrective Q6 hrs
Discussed with nurse. Will cont to follow.
Diabetes History
- -
Type of Diabetes: 2
Pre-Admission Diabetes Regimen
02/14/25
03:58
Creatinine 0.9
Lab Results
Hemoglobin A1c 6.3 % (4.0-5.6) H 01/27/25 14:42
Insulin Pump Settings
IP Diabetes Regimen
02/13/25 02/13/25 02/14/25
11:42 17:28 00:21
Glucose
POC Glucose 159 H 149 H 143 H
02/14/25
03:58
Glucose 130 H
POC Glucose
Patient Education
[2025-02-14 09:45] VITALS: BP_SYST 140
[2025-02-14 09:59] LABS: Free T3 2.69 pg/ml (2.77-5.27)
[2025-02-14] MEDS: MYCAMINE 105 MG IV (10:16)
[2025-02-14 10:25] LABS: % Basophils 0.4 % (0-2); % Eosinophils 0.4 % (0-6); % Monocytes 4.4 % (1.7-9.3); % Neutrophils 86.8 % (42.2-75.2); Absolute Basophils 0.1 10^3/uL (0-0.2); Absolute Eosinophils 0.1 10^3/uL (0-0.7); Absolute Immature Granulocytes 0.6 10^3/uL (0-0.05); Absolute Monocytes 0.8 10^3/uL (0.1-0.6); Absolute Neutrophils 16.5 10^3/uL (1.4-6.5); Hematocrit 26.9 % (39.0-52.0); Hemoglobin 8.8 g/dL (13.0-18.0); Mean Corp Hgb Conc. 32.7 g/dL (33.0-37.0); Mean Corpuscular Hgb 32.8 pg (27.0-31.0); Mean Corpuscular Volume 100.4 fL (80.0-94.0); Mean Platelet Volume 11.1 fL (7.4-10.4); Nucleated Red Blood Cells % 0 % (-); Platelet Count 339 10^3/uL (130-400); Red Blood Cell Count 2.68 10^6/uL (4.70-6.10); Red Cell Dist. Width 16.8 % (11.5-14.5)
[2025-02-14] MEDS: LOPRESSOR 5 MG IV ×2 (11:35→17:42)
[2025-02-14] MEDS: OFIRMEV 100 IV ×3 (11:36→23:55)
[2025-02-14 11:37] LABS: Glucose - Point of Care 166 mg/dl (70-99)
[2025-02-14] MEDS: NOVOLOG FLEXPEN-MODERATE RESISTANCE 1 UNITS SC (11:38)
--- NOTE | 2025-02-14 11:57 | W.PN.CARDCBS ---
Today's Communication / Plan
-
Plan to wean on respirator if possible. Continue antibiotics.
Diuresed well with IV Lasix yesterday. Hold diuresis today.
Hemoglobin overall stable at 8.8. Would like to restart IV heparin if possible.
A-fib remains relatively well rate controlled with some occasional spikes. Continue IV amiodarone for now.
Hopefully continues to slowly recover.
Impression / Plan
-
.
Primary Pattern Illustrator: Dr. Pickett
Primary EP: Dr Solorio
PCP: Dr Peñaloza
HPI: Patient with history of cardioembolic occlusion of left common femoral artery 06/2023, right iliac artery occlusion status post thromboembolectomy 10/29/2024. During that time was also noted to be in persistent rapid A-fib initially discovered
07/2023 with history of noncompliance with medications. Also with known low EF suspected tachycardia mediated status post cath 05/2024 with nonobstructive CAD.
He presented back to the ED 11/2024 due to generalized malaise and was noted to have a seroma of his right groin s/p I/D and wound vac. He was also found to be in decompensated heart failure with reduced ejection fraction and have atrial
fibrillation with rapid ventricular rates. Plan for LUIS ENRIQUE cardioversion but LUIS ENRIQUE 01/04/2025 showed massive occlusive thrombus in left atrial appendage. Most recently, presented on 01/27/2025 with acute onset abdominal pain found to have acute
mesenteric ischemia with SMA occlusion, went to OR for exploratory laparotomy and SMA thrombectomy. Postop shock with metabolic/lactic acidosis, on Levophed and intubated. Cardiology consulted for management of atrial fibrillation and heart failure
Impression:
Acute mesenteric ischemia with SMA occlusion, status post exploratory lap and SMA thrombectomy 01/27/2025 and redo OR 02/07/2025 and OR 02/08/2025
Acute hypoxemic respiratory failure
Shock with metabolic/lactic acidosis
Right groin seroma
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
Persistent atrial fibrillation, first discovered July 2023
Non-IA myocardial injury
Chronic OAC with eliquis
Left atrial appendage thrombus by LUIS ENRIQUE 12/2024
Chronic HFrEF
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
NSVT
Hyperthyroidism
Noncompliance
Depression
History of ETOH and tobacco abuse
Obesity
Ventilator dependent respiratory failure
ECHO 04/04/2024: EF 10 to 15%, severe global hypokinesis, mild MR, trace TR, PAP 30 to 33 mmHg
Cardiac catheterization 05/22/2024: Nonobstructive coronary disease with normal to mildly elevated right and left-sided filling pressures with normal cardiac output
Echocardiogram 10/30/2024: Severely dilated left ventricle, severely reduced LV systolic function, global hypokinesis with ejection fraction of 5-10%, moderate to severe eccentric TR with PA pressure of 30-35 mmHg, small pericardial effusion.
LUIS ENRIQUE 01/04/2025: LVEF 10 to 15%, definite massive occlusive thrombus in left atrial appendage, mild MR, moderate to severe TR
Plan:
Bleeding has stopped. Remains off heparin for now but would like to restart over the next 12 hours if possible. Hemoglobin at 8.8. Overall stable.
Unfortunately continues to spike fevers and remains critically ill. Plan is to try to wean him some on ventilator today if possible.
Continue IV amiodarone drip for A-fib control. Hold on IV Lopressor. Blood pressure remains overall stable. Remains off pressors.
Lasix was given for 02/13/25, he did diurese well. Weight is overall down. Will continue to diurese.
Continue meropenem and micafungin for infection.
He has had 3 cardiac embolic events in the past 9 months felt to be due to noncompliance.
His severe LV dysfunction is likely tachycardia mediated and related to noncompliance.
Long-term plan would likely be to repeat transesophageal echo (given large occlusive thrombus in left atrial appendage) if he recovers from abdominal procedures and then make a plan regarding risk of ablation.
Discussed with nursing.
Progress Note - Pattern Illustrator
Subjective
Date of Service: February 14, 2025
awake on vent. still with low grade fevers
Objective
Labs:
02/14/25 10:14
02/14/25 03:58
Labs
Hgb 8.8 g/dL (13.0-18.0) L 02/14/25 10:14
Hct 26.9 % (39.0-52.0) L 02/14/25 10:14
Plt Count 339 10^3/uL (130-400) 02/14/25 10:14
PT 15.6 Sec (11.4-14.6) H 02/14/25 04:43
INR 1.19 02/14/25 04:43
APTT 26.5 Sec (23.4-35.0) 02/14/25 04:43
Sodium 143 mmol/L (135-145) 02/14/25 03:58
Potassium 4.5 mmol/L (3.5-5.1) 02/14/25 03:58
BUN 50 mg/dl (9-20) H 02/14/25 03:58
Creatinine 0.9 mg/dL (0.7-1.3) 02/14/25 03:58
Glucose 130 mg/dl (70-99) H 02/14/25 03:58
Vital Signs and I&O:
Vital Signs
Temp Pulse Resp BP Pulse Ox
100.6 F H 118 20 147/72 99
02/14/25 11:05 02/14/25 11:35 02/14/25 09:03 02/14/25 11:35 02/14/25 11:32
Vital Signs
Temp Pulse Resp BP Pulse Ox
100.6 F H 118 20 147/72 99
02/14/25 11:05 02/14/25 11:35 02/14/25 09:03 02/14/25 11:35 02/14/25 11:32
Intake & Output
02/12/25 02/13/25 02/14/25 02/15/25
06:59 06:59 06:59 06:59
Intake Total 2829.3 / 2969.9 3525.8 / 3663.9 2939.2 / 3050.7 525.1 / 525.1
Output Total 1885 / 2110 3700 / 3800 4660 / 4680 455 / 455
Balance 944.3 / 859.9 -174.2 / -136.1 -1720.8 / -1629.3 70.1 / 70.1
Physical Exam
Physical Exam
GEN: No distress, awake on vent
HEENT: supple, anicteric, mmm
LUNGS: CTA, no wheezes/rales
CV: Irreg, S1/S2, 1/6 syst LSB, no murmur
ABD: soft, BS+, incision dressing intact
EXT: No edema
NEURO: Gross non-focal
SKIN: No rash
[2025-02-14 12:06] LABS: B.E. 2.2 mmol/L; HCO3 27.3 mmol/L (21-28); O2 Saturation % 99.9 % (94-98); PCO2 44 mmHg (35-48); PO2 147 mmHg (83-108)
[2025-02-14] MEDS: HEPARIN 25000 UNITS/250 ML IV ×2 (12:49→20:52)
--- NOTE | 2025-02-14 13:11 | PTCARENOTE ---
SAT initiated- prop off and fent half'd @ 0815-see flow sheet. Pt. awake; follow commands; nods head approp. SBT initiated by RT per orders @ 0845 to CPAP 8/5/.40. Pt. tolerating wean. Fent completely off @ 0915-see flow sheet. S/P fent gtt
off; pt.'s HR/BP/CPOT elevated. Dr. Crockett made aware. Admin PRN IV fent bolus and fent gtt back @ half'd rate per MD- see flow sheets. VS and CPOT improved s/p pain biomedical service engineer. Grand round performed and no plan to extubate today but continue to
vent wean. Pt. tolerated CPAP wean until approx 1200, ABG sent to lab while on wean, reviewed by Dr. Crockett. RT placed pt. back on ASV settings 70%/.40/+5 @ 1215 per orders; pt. tolerating settings. AM Hgb reviewed, stable. No s/s of active
bleeding; midline abd dressing remains c/d/i. Family @ bedside, updated. Safe environment maintained.
--- NOTE | 2025-02-14 13:45 | W.PN.ID1 ---
Date of Service
Date of Service: February 14, 2025
Today's Communication
Continue meropenem. Discontinue further micafungin.
Assessment / Plan
Ongoing fevers
- ?infection ?post-op ?drug fever.
Leukocytosis
Mesenteric ischemia with perforation and necrotic bowel
- s/p washout and primary abdominal closure (02/11/2025)
VDRF
Severely dilated cardiomyopathy with markedly diminished EF
Hx A-fib
Recommendations:
Multiple possible etiologies of fever and leukocytosis, including drug fever, versus ongoing abdominal process.
- Given persistence of fever, drug fever becomes higher on the differential.
Duplex ultrasound positive for left mid brachial vein, although doubt that this is the etiology of the ongoing fever.
Continue with meropenem (day #4).
No fungus has been recovered thus far. Discontinue further micafungin.
C. difficile is negative.
Abdominal fluid cultures with Enterococcus (preliminary result)
Follow white count and temperature curve.
Continue with supportive care.
Patient remains critically ill, vent dependent and in intensive care unit
����������������������������������������������������������
Chief Complaint
-: Fever and Leukocytosis
Subjective / Review of Systems
Seen and examined. Remains on vent. Decreased bloody drainage from KIKI. Fevers persist
Vital Signs / Physical Exam
Vital Signs
Vital Signs
Temp Pulse Resp BP Pulse Ox
100.6 F H 106 25 147/72 99
02/14/25 11:05 02/14/25 13:00 02/14/25 13:00 02/14/25 11:35 02/14/25 13:00
Physical Exam
Constitutional: Acutely Ill and Non-toxic
Head: Normocephalic
Eyes: No Conjunctival Hemorrhage
Oropharyngeal: Other (ET tube in place. NG tube in place.)
Cardiovascular: Regular Rate (Tachycardic) and S1/S2; Negative S3/S4
Pulmonary: Clear and Other (ET tube to vent.)
Gastrointestinal: Soft, Decreased Bowel Sounds, No Rebound, No Guarding and Other (Abdominal binder in place.)
Genito-Urinary: Wilkerson and Clear Urine
Extremities: Edema (2+ bilateral lower extremity edema); Negative Cyanosis or Erythema
Neurological: Other (Arousable to touch.)
Lines: PICC
Objective Data
Lab Data
Lab Results
02/14/25 10:14
02/14/25 03:58
PT 15.6 Sec (11.4-14.6) H 02/14/25 04:43
INR 1.19 02/14/25 04:43
APTT 26.5 Sec (23.4-35.0) 02/14/25 04:43
Estimated Creat Clear 115 ml/min 02/14/25 03:58
Lactic Acid 1.1 mmol/L (0.7-2.0) 02/09/25 04:00
Total Bilirubin 6.5 mg/dl (0.2-1.3) H 02/12/25 03:51
AST 36 U/L (17-59) 02/12/25 03:51
ALT 35 U/L (0-50) 02/12/25 03:51
Alkaline Phosphatase 108 U/L (38-126) 02/12/25 03:51
Most recent labs reviewed.
Micro Results:
02/11/25 13:11 Blood Culture - Preliminary
Blood/Venous No Growth in 72 hours- Final report to follow
02/11/25 15:30 Wound Culture - Preliminary
Abdomen Enterococcus species
Gram Stain - Preliminary
02/11/25 15:30 Anaerobic Culture - Preliminary
Other-Please specify - Other Culture pending. Anaerobic cultures are examined after 3
days incubation. Additional information to follow.
02/07/25 18:36 Blood Culture - Final
Blood/Venous No Growth - Final Report
02/11/25 15:30 Fungal Culture - Preliminary
Other-Please specify - Other Culture in progress.
Positive cultures are reported as soon as detected.
Final report to follow in four to five weeks.
02/11/25 14:22 C. difficile GDH Antigen & Toxins - Final
Feces/Stool Negative for toxigenic C.difficile
02/11/25 10:41 Influenza Types A & B (SHERLYN) - Final
Nasal Swab Negative for Influenza A & B, NAAT
Negative results must be combined with clinical observations
and patient history.
Nucleic Acid Amplification test (NAAT)performed on the
[employer] platform.
02/09/25 09:21 Urine Culture - Final
Urine NO GROWTH
01/27/25 12:14 Blood Culture - Final
Blood/Venous No Growth - Final Report
01/27/25 21:32 MRSA Screen - Final
Nose No Methicillin Resistant Staphylococcus aureus isolated.
Imaging:
02/11/2025 CXR (portable): Hazy opacification along both lower lungs without significant change. No significant pleural effusion is noted.
--- NOTE | 2025-02-14 15:04 | CM ---
CM following re: discharge planning.
Reviewed pt's chart, met with pt.
Per Rounds meeting pt remains intubated, colorectal surgery following, continue supportive care.
Pt lives in an apartment/rented room, , 2nd floor, 2FF of steps to get to his apartment. Pt has no children, has 4 brothers, 3 sisters and a mother, one brother lives with mother and brother Jag lives in [facility]. Pt has supportive friend
Angie. Pt is independent in all areas [employer], was at [facility] in the past.
D/C plan: [facility] when medically stable.
CM will follow with discharge plan updates as hospitalization progress
[2025-02-14 17:29] LABS: Hematocrit 28.1 % (39.0-52.0); Mean Corpuscular Hgb 32.6 pg (27.0-31.0); Mean Corpuscular Volume 101.8 fL (80.0-94.0); Mean Platelet Volume 10.8 fL (7.4-10.4); Platelet Count 371 10^3/uL (130-400); Red Blood Cell Count 2.76 10^6/uL (4.70-6.10); Red Cell Dist. Width 16.7 % (11.5-14.5); White Blood Cell Count 18.2 10^3/uL (4.8-10.8)
--- NOTE | 2025-02-14 17:32 | PTCARENOTE ---
Addendum entered by Jahaira Verduzco RN 02/14/25 17:38:
Secretions noted to be increased from AM; suctioned for mod amts of thick white/yellow sputum from ett. Sample sent to lab per orders.
Original Note:
Heparin gtt restarted per surgery @ approx 1300- see flow sheet. No s/s of active bleeding; midline abd incision remains c/d/i. Remains on ASV settings, tolerating. Medicated w prn IV fent bolus prn and gtt increased as needed- see MAR/ flow
sheet. Pt.'s mother updated via phone. Safe environment maintained.
[2025-02-14 17:34] LABS: B.E. 1.7 mmol/L; HCO3 26.6 mmol/L (21-28); O2 Saturation % 99.8 % (94-98); PCO2 42 mmHg (35-48); PO2 145 mmHg (83-108); pH 7.41 (7.35-7.45)
--- NOTE | 2025-02-14 20:00 | PTCARENOTE ---
Received pt intubated and sedated on fentanyl gtt. Awakens to verbal. Follows commands, tracking. Nods yes/no appropriately. PRN fentanyl bolus given for pain. Afib on tele, HR 90-110s. BP 120s-140s/60s via L radial A line- transducing and zeroed.
+1 LE and +2 UE edema present. Febrile 102.4 - tylenol given on dayshift, ice packs in place - will monitor. #8 ETT 26cm on left. Tolerating ASV 70%MV, +5, 40%fio2. Spo2 98%. Lungs coarse with rhonchi. Suctioned ETT for thin clear/sl yellow
secretions. Mouth care provided. Abdominal incision with dsg c/d/i, abdominal binder in place. R KIKI drain with sang. output. Absent bowel sounds x4. L NG to cont suction with green output. Temp sensing candelaria draining nicole urine - see I&O. R DL PICC
with TPN and amio gtt. L midline with heparin gtt and fentanyl gtt. Turning q2. Monitoring closely.
[2025-02-14] MEDS: Parenteral Nutrition, Central 1660 IV (20:52)
[2025-02-14 23:52] LABS: Glucose - Point of Care 161 mg/dl (70-99)
[2025-02-15] MEDS: NOVOLOG FLEXPEN-MODERATE RESISTANCE 1 UNITS SC ×4 (00:08→23:56)
[2025-02-15] MEDS: LOPRESSOR 5 MG IV ×2 (00:08→06:13)
--- NOTE | 2025-02-15 00:28 | PTCARENOTE ---
Pt reassessed. HR gradually increased, sustaining 120s. Temp remained 102. CONSULTANT RN aware. Ofirmev given. Ice packs replaced. Scheduled lopressor given. HR 90s now. No other changes
[2025-02-15 01:40] LABS: APTT 78.7 Sec (23.4-35.0)
[2025-02-15] MEDS: SUBLIMAZE 100 IV (02:07)
[2025-02-15] MEDS: SUBLIMAZE 50 MCG IV (02:54)
--- NOTE | 2025-02-15 03:59 | PTCARENOTE ---
Pt reassessed. Temp improved to 101.1. Mild shadowing noted under abdominal dressing- HYDRAULIC RIVETER to bedside to assess. No new orders, just monitor. Abdomen soft, no discoloration. Bowel sounds remain absent.
Bathed with CHG. AM labs drawn .
[2025-02-15 04:35] LABS: Hematocrit 27.7 % (39.0-52.0); Hemoglobin 8.8 g/dL (13.0-18.0); Mean Corp Hgb Conc. 31.8 g/dL (33.0-37.0); Mean Corpuscular Hgb 32.7 pg (27.0-31.0); Mean Platelet Volume 10.9 fL (7.4-10.4); Platelet Count 394 10^3/uL (130-400); Red Blood Cell Count 2.69 10^6/uL (4.70-6.10); Red Cell Dist. Width 16.8 % (11.5-14.5); White Blood Cell Count 18.9 10^3/uL (4.8-10.8)
[2025-02-15] MEDS: HEPARIN 25000 UNITS/250 ML IV ×3 (04:43→20:25)
[2025-02-15] MEDS: STERILE WATER FOR INJECTION 10 ML IV ×4 (04:47→21:08)
[2025-02-15] MEDS: MERREM 500 MG IV ×4 (04:47→21:08)
[2025-02-15 04:53] VITALS: BMI 35.3
[2025-02-15] MEDS: NOVOLOG FLEXPEN-MODERATE RESISTANCE SC (05:00)
[2025-02-15 05:15] LABS: Blood Urea Nitrogen 46 mg/dl (9-20); Calcium 7.7 mg/dl (8.4-10.2); Carbon Dioxide 23 mmol/L (22-30); Chloride 115 mmol/L (98-107); Estimated Creatinine Clearance > 125 ml/min; Glucose 137 mg/dl (70-99); Magnesium 2.2 mg/dl (1.6-2.3); Phosphorus 3.3 mg/dl (2.5-4.5); Potassium 5.2 mmol/L (3.5-5.1); Sodium 143 mmol/L (135-145); eGFR > 60.00
--- NOTE | 2025-02-15 07:05 | W.PN.HOSP.TC ---
Today's Communication/Plan
-
see a/p
Assessment / Plan
Assessment / Plan
Physical Exam
General: Obese
HEENT: Normocephalic, Atraumatic, intubated
Respiratory: Clear to Auscultation bilaterally
Cardiac: Normal S1/S2, tachycardic rate and irregular rhythm
GI: Soft, distended, incision dressed
Extremities: No Clubbing, No Cyanosis
Neuro: awake alert following commands
59M hx dilated cardiomyopathy, EF 5-10%, afib LV thrombus on AC non-compliant, left lower extremity arterial occlusion due to thromboembolism 07/06 and acute limb ischemia RLE s/p thromboembolectomy 11/06 presented to the ER with abdominal pain and
shortness of breath. 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 Post-op course complicated with
ileus.
A/P:
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
Post-op Ileus
Fever unknown origin possibly infectious vs drug fever
-appreciate vascular, CRS, [employer] Supervisor consults
-s/p OR 01/27: thromboembolectomy of SMA, placement ABThera Vac
-s/p OR 01/28: exploratory laparotomy, mesenteric angiography, partial omentectomy, tap block, abdominal closure
-s/p IV Zosyn - completed 7 day course, however fever/leukocytosis persist
-TPN initiated on 02/02
-02/07, CT abdomen and pelvis showed new mild intraperitoneal free air indicating a perforated viscus
-s/p OR 02/07: exploratory laparotomy, small bowel resection, lysis of adhesions, placement of ABThera wound VAC
-Continue NPO, NGT, TPN
-ID eval appreciated empiric IV zosyn switched to meropenem continue, micafungin completed
-cont IV tylenol prn, attempted once IV ibuprofen 02/12/25, ice packs prn
-wean Levophed as tolerated
-Returned to OR with CRS 02/11/2025 exploratory lap, small bowel anastomosis, abd wall closure, bilateral cutaneous advancement flaps,repeat wound culture results pending
-02/13/25 developed increased abd distension firmness w/ associate drop in hgb overnight, CRS eval appreciated 200-300 mL of dark sanguinous blood expressed from midline wound likely subcutaneous bleed, abd binder applied and hep gtt briefly held
since resumed
-Trend fever and white count
Hypoxic Respiratory Failure status post intubation
-Appreciate bilingual medical assistant input, continue vent management as per bilingual medical assistant
Hypokalemia
Hypophosphatemia
-monitor and replete as necessary
Toxic metabolic encephalopathy
-Monitor
Permanent AFIB with RVR
Left atrial appendage thrombus
-Status post Cardizem drip
-appreciate Cardiology, continue IV amiodarone drip, IV heparin drip on hold as above
-IV metoprolol held due to hypotension/shock since resumed
-resume Metoprolol when able to take PO
-resume Eliquis when confirm no need for further procedures
Acute on chronic HFrEF (EF 5-10%)
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
-IV Lasix as needed as per cardiology
-Trend creatinine, trend daily weights
-02/14 ECHO appreciated EF10-15% mod MR TR no significant change from prior ECHO
Bacteruria
-UA on 02/05/25 with bacteuria
-Was on Rocephin, changed to Zosyn, then meropenem as above
Hyperthyroid--new diagnosis last admission?--on methimazole but would hold for now
-repeat TSH here Low but T4 wnl
-cont methimazole hold
-suspect euthyroid-sick syndrome
-repeat TFTs in 1 month
Type 2 diabetes
-well controlled on sliding scale
-cont glycemic control
PAD
Active smoker
smoking cessation counseled
DVT proph - IV heparin drip
Code status - Full Code
Total Critical Care Time__35__ minutes. I was immediately available to the patient and staff. I personally examined, reviewed labs, diagnostic images/reports, interpretations, treatment plans, discussed patient care with other providers, entered
orders as appropriate and documented the medical record.
Anticipated Discharge: > 48 hours
Subjective/Interval History
-
Date of Service: February 15, 2025
intubated following commands comfortable.
Objective Data
-
Labs:
Laboratory Results
02/15/25 02/15/25 02/15/25
01:17 03:48 07:20
WBC 18.9 H
Hgb 8.8 L
Hct 27.7 L
Plt Count 394
APTT 78.7 H Pending
Sodium 143
Potassium 5.2 H
Chloride 115 H
Carbon Dioxide 23
BUN 46 H
Creatinine 0.8
Glucose 137 H
Calcium 7.7 L
Vital Signs:
Vital Signs
Temp Pulse Resp BP Pulse Ox
101.3 F H 105 16 142/64 98
02/15/25 03:18 02/15/25 06:15 02/15/25 06:15 02/15/25 06:13 02/15/25 05:00
I&O
02/14/25 02/15/25 02/16/25
06:59 06:59 06:59
Intake Total 2939.2 / 3050.7 3252.9 / 3252.9
Output Total 4660 / 4680 2260 / 2260
Balance -1720.8 / -1629.3 992.9 / 992.9
--- NOTE | 2025-02-15 07:05 | W.PN.ID1 ---
Date of Service
Date of Service: February 15, 2025
Today's Communication
Continue meropenem for today.
Assessment / Plan
Ongoing fevers
- ?infection ?post-op ?drug fever.
- Given persistence and curve, suspect drug fever is most likely etiology.
Leukocytosis
Mesenteric ischemia with perforation and necrotic bowel
- s/p washout and primary abdominal closure (02/11/2025)
VDRF
Severely dilated cardiomyopathy with markedly diminished EF
Hx A-fib
Recommendations:
Multiple possible etiologies of fever and leukocytosis, including drug fever, versus ongoing abdominal process.
- Given persistence of fever, drug fever becomes higher on the differential.
Duplex ultrasound positive for left mid brachial vein, although doubt that this is the etiology of the ongoing fever.
Continue with meropenem (day #5).
Micafungin discontinued 02/14/2025
C. difficile is negative.
Abdominal fluid cultures with Enterococcus (preliminary result); sensitivities pending.
Follow white count and temperature curve.
Continue with supportive care. Wean as is possible.
Patient remains critically ill, vent dependent and in intensive care unit
����������������������������������������������������������
Chief Complaint
-: Fever and Leukocytosis
Subjective / Review of Systems
Patient seen and examined. Remains on vent. Fevers persist.
Vital Signs / Physical Exam
Vital Signs
Vital Signs
Temp Pulse Resp BP Pulse Ox
101.3 F H 105 16 142/64 98
02/15/25 03:18 02/15/25 06:15 02/15/25 06:15 02/15/25 06:13 02/15/25 05:00
Physical Exam
Constitutional: Acutely Ill and Non-toxic
Head: Normocephalic
Eyes: No Conjunctival Hemorrhage
Oropharyngeal: Other (ET tube in place. NG tube in place.)
Cardiovascular: Regular Rate (Tachycardic) and S1/S2; Negative S3/S4
Pulmonary: Clear and Other (ET tube to vent.)
Gastrointestinal: Soft, Decreased Bowel Sounds, No Rebound, No Guarding and Other (Abdominal binder in place. KIKI in place with bloody drainage)
Genito-Urinary: Wilkerson and Clear Urine
Extremities: Edema (2+ bilateral lower extremity edema); Negative Cyanosis or Erythema
Neurological: Other (Arousable to touch.)
Lines: PICC (LUE midline; RUE PICC line)
Objective Data
Lab Data
Lab Results
02/15/25 03:48
02/15/25 03:48
PT 15.6 Sec (11.4-14.6) H 02/14/25 04:43
INR 1.19 02/14/25 04:43
APTT 78.7 Sec (23.4-35.0) H 02/15/25 01:17
Estimated Creat Clear > 125 ml/min 02/15/25 03:48
Lactic Acid 1.1 mmol/L (0.7-2.0) 02/09/25 04:00
Total Bilirubin 6.5 mg/dl (0.2-1.3) H 02/12/25 03:51
AST 36 U/L (17-59) 02/12/25 03:51
ALT 35 U/L (0-50) 02/12/25 03:51
Alkaline Phosphatase 108 U/L (38-126) 02/12/25 03:51
Most recent labs reviewed.
Micro Results:
02/14/25 13:46 Respiratory Culture - Pending
Tracheal Aspirate Gram Stain - Preliminary
02/11/25 13:11 Blood Culture - Preliminary
Blood/Venous No Growth in 72 hours- Final report to follow
02/11/25 15:30 Wound Culture - Preliminary
Abdomen Enterococcus species
Gram Stain - Preliminary
02/11/25 15:30 Anaerobic Culture - Preliminary
Other-Please specify - Other Culture pending. Anaerobic cultures are examined after 3
days incubation. Additional information to follow.
02/07/25 18:36 Blood Culture - Final
Blood/Venous No Growth - Final Report
02/11/25 15:30 Fungal Culture - Preliminary
Other-Please specify - Other Culture in progress.
Positive cultures are reported as soon as detected.
Final report to follow in four to five weeks.
02/11/25 14:22 C. difficile GDH Antigen & Toxins - Final
Feces/Stool Negative for toxigenic C.difficile
02/11/25 10:41 Influenza Types A & B (SHERLYN) - Final
Nasal Swab Negative for Influenza A & B, NAAT
Negative results must be combined with clinical observations
and patient history.
Nucleic Acid Amplification test (NAAT)performed on the
[employer] platform.
02/09/25 09:21 Urine Culture - Final
Urine NO GROWTH
01/27/25 12:14 Blood Culture - Final
Blood/Venous No Growth - Final Report
01/27/25 21:32 MRSA Screen - Final
Nose No Methicillin Resistant Staphylococcus aureus isolated.
Imaging:
02/13/2025 CXR (portable): Mild haziness in the right medial lower lung field. Poor visualization of the medial left hemidiaphragm. No pleural effusion or pneumothorax noted.
02/11/2025 CXR (portable): Hazy opacification along both lower lungs without significant change. No significant pleural effusion is noted.
Chest X-Ray: Image Reviewed and Report Reviewed
[2025-02-15] MEDS: PROTONIX IV 40 MG IV (07:11)
[2025-02-15] MEDS: NSS (PRESERVATIVE FREE) 10 ML IV (07:11)
[2025-02-15] MEDS: OFIRMEV 100 IV ×3 (07:12→20:30)
--- NOTE | 2025-02-15 07:53 | W.PN.INTV ---
Today's Communication / Plan
Recommendations
Plan for wean off fentanyl drip, hydromorphone as needed
Transition to CPAP
Resume, increase Lopressor dosing
Lasix today
Follow cultures, sputum culture
Remains on antibiotics per infectious disease
Fevers continue. Drug fever?
Goal is to evaluate for extubation in the next 24 to 48 hours
Assessment
-
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
thromboembolic occlusion of the right iliac system s/p thromboembolectomy of the right iliac system + thromboembolectomy of the right SFA, popliteal artery and profundo-femoral artery (10/2024) who presents with abdominal pain and SOB. He was in
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 In the ER he was afebrile to 98.2 �F, pulse rate 135, breathing at 12 breaths/min, BP 162/110 and saturating 97% on room air. Initial
labs showed potassium 2.9, lactate 5.2, T. bili 2.1, and proBNP 4580. CTA A/P showed thrombosis of the SMA with small bilateral pleural effusions and groundglass attenuation in the bases of the lungs. He was given 40 mg IV Lasix in the ER,
Dilaudid 0.5 mg, potassium repletion, 1 L NS 0.9% and Zofran. Vascular surgery was consulted and given his significant abdominal pain of acute onset he was consented for the OR. He underwent exploratory laparotomy with thromboembolectomy of
superior mesenteric artery and placement of an AbThera VAC. Postoperatively he returned to the ICU intubated, and Felt Puller services consulted for additional management/recommendations. Patient was extubated and improved, and subsequently
downgraded to the IMU on 01/31. He was downgraded to telemetry on 02/04 where he has been managed. Unfortunately on 02/05 he developed a small bowel obstruction. On 02/07, repeat CT A/P showed free air in the abdomen indicating a perforated viscus.
He went to the OR for an ex lap with small bowel resection and placement of an ABThera wound VAC, and is now transferred back to the ICU intubated.
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
Assessment and plan:
#1. 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
- Patient to OR on 02/08/2025 for an ex lap with abdominal washout and mesenteric angiography (no cultures sent)
- Patient to OR again 02/11 for abdominal washout and wound closure, (culture sent positive Enterococcus)
- Postoperative management as per colorectal surgery
- Pain control. Unfortunately requiring fentanyl boluses as needed which during wean he becomes more apneic. Will try Dilaudid when closer to wean today
- Continue NGT on low continuous wall suction per surgery. NG tube drainage is decreasing
- Abdominal distention improved, abdominal binder in place. Hematoma evacuated per surgery at the bedside 4/2 am. Heparin drip discontinued 4 am, resumed per surgery/cardiology 02/14. Hemoglobin remained stable
- Was on heparin drip as per colorectal surgery given his SMA occlusion. Resumed 02/14
- Follow hemoglobin, maintain active type and screen
#2. Ventilator dependent respiratory failure
- Intubated since 02/08
- Continue with mechanical ventilation with daily SAT/SBT as able
- Chest x-ray 02/15 with increased right lower lobe infiltrate, likely combination of plugging, atelectasis. Sputum culture pending
- Maintained on ASV 70% since 02/14. Will transition to CPAP and attempt to wean today. Limiting factor prior wean was tachycardia in the setting of EF 10 to 15%, rapid shallow breathing
- Increase secretions noted. Patient with adequate cough
- Aspiration precautions
- Ongoing plans for weaning and hope for extubation
#3. Circulatory shock
- Likely related to sedation with septic shock in the setting of A-fib with RVR and HFrEF, EF 10% on repeat echocardiogram
- Remains off pressors
- Trend WBC and monitor for fevers
- Also CT A/P from 02/07/2025 still shows circumferential wall thickening in the distal small bowel suggestive of enteritis
- Patient now on meropenem. Zosyn discontinued per ID, micafungin discontinued per ID
- Follow cultures, follow fever curve, follow leukocytosis
- Rev LUIS ENRIQUE from Dec 2024, large thrombus. Repeat echo 02/14 reveals no obvious thrombus, EF 10%
- Has not required pressors over the last week
#4. Acute mesenteric ischemia with SMA occlusion, likely embolic, s/p ex lap with SMA embolectomy (on 01/27/2025), followed by delayed abdominal wall closure with ex lap and partial omentectomy (on 01/28/2025)
- heparin had to be discontinued due to abdominal hematoma, resumed 02/14
- NG to suction as stated above, await return of bowel function
- Reviewed oncology evaluation few weeks ago, hypercoagulable workup negative at that time. Fibrinogen normal, no evidence of DIC presently
#5. Acute on Chronic heart failure with reduced ejection fraction, LVEF 10 to 15% with history of occlusive thrombus in MELISSA in the past
-Likely the source of embolic event to SMA
-Monitor input and output closely
-Will give additional Lasix today
-Repeat echo 02/14 with no obvious thrombus although poor study noted. Her EF remains 10%
#6. Atrial fibrillation with rapid ventricular rate
- Continue amiodarone gtt
- Now off cardizem gtt
- Resumed IV Lo/, will increase to 7.5 mg every 6h
- Prior wean with limited by tachycardia, heart rate in the 150s with rapid shallow breathing. Hopefully this is improved upon resuming beta-renee therapy which she was on as outpatient
- Heparin drip for anticoagulation has been held due to abdominal hematoma, resumed 02/14
- LUIS ENRIQUE 01/04/2025 with EF 10 to 15%, normal RV size and function, moderate to severe TR, large occlusive thrombus in left atrial appendage. Repeat echo 02/14 with resolution of thrombus, EF remains 10%
#7. Hyperglycemia
- HbA1c 6.3 on 01/27/2025
- Started insulin drip on 02/08 given he is critically ill with hyperglycemia - this is now weaned off; will resume ISS q6hr
- Remains on TPN
#8. Abnormal urinalysis concerning for UTI
- UA on 02/05/2025 was positive for nitrites, with +1 leukocyte esterase and 6�10 urine WBC
- Ceftriaxone changed to Zosyn on 02/07/2025 in setting of small bowel perforation with sepsis
-Now on meropenem per ID. Follow cultures
Gi Prophylaxis: PPI IV
DVT ppx: Heparin gtt resumed 02/14
Continue ICU level care for this critically ill patient.
Critical care statement: A total of 43 minutes of critical care time was provided for this patient today. This includes management of unstable vital signs, evaluation of the patient at bedside, reviewing the patient's pertinent medical records
including radiographs, microbiology, laboratory evaluations, and discussion with primary team, consultants, pharmacy, nutrition, physical therapy, case management, charge nurse, critical care nursing, and respiratory therapy.
Data:
CTA Abd/Pelvis w/wo IV contrast 01/27/2025:
Thrombosis of superior mesenteric artery branches, new since prior examination.
No bowel thickening or pneumatosis to suggest bowel ischemia.
No acute inflammatory changes within the abdomen or pelvis.
Mild diverticulosis without acute diverticulitis.
Stable fatty infiltration of liver. Stable low-attenuation right adrenal mass 1.3 cm, most consistent with benign adenoma.
Hazy attenuation in the dependent lung bases. Groundglass attenuation. Small bilateral pleural effusions. Possible mild pulmonary edema and/or atelectasis.
CT A/P w IV and oral contrast 02/07/2025:
New mild intraperitoneal free air indicating a perforated viscus. The exact location is difficult to discern, but distribution of free air greatest in the anterior mid to upper abdomen near the persistently dilated proximal small bowel loops that
again contain air-fluid levels. Long segment distal small bowel smaller in caliber with circumferential wall thickening suggestive of an enteritis.
Subjective Dataa
Subjective Data
Date of Service:
Date of Service: February 15, 2025
Chief Complaint: Felt Puller Follow Up
Subjective:
Patient remains critically ill. Ventilator dependent, had been transition to ASV 70%. Fevers continue, 102.5. Remains with abdominal pain, receiving fentanyl drip and fentanyl bolus. Now off micafungin. Remains on heparin. Hemoglobin appears
to be stable. Secretions are more this morning
Objective Data
Data Reviewed
Vital Signs / I&O / Oxygen:
Vital Signs
Temp Pulse Resp BP Pulse Ox
101.3 F H 97 12 142/64 100
02/15/25 03:18 02/15/25 07:30 02/15/25 07:30 02/15/25 06:13 02/15/25 07:31
Intake and Output
02/14/25 02/15/25 02/16/25
06:59 06:59 06:59
Intake Total 2939.2 / 3050.7 3252.9 / 3480.6 227.7 / 227.7
Output Total 4660 / 4680 2260 / 2435 175 / 175
Balance -1720.8 / -1629.3 992.9 / 1045.6 52.7 / 52.7
SaO2 [ASV] 98
SaO2 [A/C] 99
SaO2 100
Nasal Cannula flow liters per 2
minute
Physical Exam
General: Comfortable and Other (Left upper extremity midline, right upper extremity PICC, left upper extremity A-line)
HEENT: Normocephalic, Other (ETT in place) and Other (Somewhat poor dentition)
Cardiovascular: S1-S2, Irregular Rhythm (Irregularly irregular), Murmur (n), Rub (n) and Peripheral Edema (negative)
Respiratory: Wheeze (negative), Crackles (n), Rhonchi (Scattered), Non-Labored Respirations, Stridor (negative) and ET Tube (Mechanical breath sounds heard bilaterally)
GI: Soft, Non Distended (Abdominal binder in place), NG Tube and Other (KIKI drain, mild serosanguineous fluid)
Neurology: No Motor Deficits (Spontaneously moving extremities, arousable) and Other (Sedated, but arousable)
Skin: Warm, Dry, Cyanosis (negative) and Rash (n)
Labs/Micro/Reports
Lab Data
02/15/25 03:48
02/15/25 03:48
Laboratory Results
02/14/25 02/14/25 02/14/25
11:50 17:17 18:26
APTT 60.0 H
pH 7.40 7.41
pCO2 44 42
pO2 147 H 145 H
HCO3 27.3 26.6
O2 Delivery Level
02/15/25
01:17
APTT 78.7 H
pH
pCO2
pO2
HCO3
O2 Delivery Level
Microbiology
02/14/25 13:46 Tracheal Aspirate Gram Stain - Preliminary
02/11/25 13:11 Blood/Venous Blood Culture - Preliminary
No Growth in 72 hours- Final report to follow
02/11/25 15:30 Abdomen Wound Culture - Preliminary
Enterococcus species
02/11/25 15:30 Abdomen Gram Stain - Preliminary
02/11/25 15:30 Other-Please specify - Other Anaerobic Culture - Preliminary
Culture pending. Anaerobic cultures are examined after 3
days incubation. Additional information to follow.
02/07/25 18:36 Blood/Venous Blood Culture - Final
No Growth - Final Report
02/11/25 15:30 Other-Please specify - Other Fungal Culture - Preliminary
Culture in progress.
Positive cultures are reported as soon as detected.
Final report to follow in four to five weeks.
[2025-02-15 07:58] LABS: APTT 96.8 Sec (23.4-35.0)
[2025-02-15 08:39] LABS: Glucose - Point of Care 137 mg/dl (70-99)
[2025-02-15 08:48] VITALS: BP 129/81; BP_SYST 96
--- NOTE | 2025-02-15 08:49 | PN.DE.MGMTRT ---
Insulin Management
- -
02/15/2025: Diabetes Management Follow up
Patient admitted 01/27 with abdominal pain and SOB PMH: A-fib, hyperthyroidism, chronic HFrEF, LLE arterial occlusion due to thromboembolism (06/2023), h/o acute limb ischemia of RLE with thromboembolic occlusion of the right iliac system s/p
thromboembolectomy of the right iliac system + thromboembolectomy of the right SFA, popliteal artery. Prior to admission was taking Jardiance 10mg daily. A1C 6.3%, Cr 1.1, eGFR >60.
CTA showed thrombosis of the SMA s/p ex lap with thromboembolectomy of SMA and placement of an AbThera Vac 01/27/25. Postoperatively he was started on the glycemic protocol due to hyperglycemia.
Pt remains intubated and sedated, unable to discuss diabetes care plan. No Family at bedside.
POD #4 s/p exploratory laparotomy, mesenteric ischemia, abdominal washout.
POD #8 s/p exploratory laparotomy with small bowel resection.
POD 17 s/p closure of abdomen
POD# 18 s/p exploratory laparotomy, mesenteric angiography, partial omentectomy, tap block, abdominal closure
Remains NPO, on TPN. Transitioned off glycemic protocol on 02/10 at 7AM to moderate corrective Q6 hrs
Glucose stable and in range, 137 to 166, FBG 137 this AM, required only 1 unit corrective insulin @ MN and again yesterday @ Noon.
Will make no changes to current regimen: Cont moderate corrective Q6 hrs
Discussed with nurse. Will cont to follow.
Diabetes History
- -
Type of Diabetes: 2
Pre-Admission Diabetes Regimen
02/15/25
03:48
Creatinine 0.8
Lab Results
Hemoglobin A1c 6.3 % (4.0-5.6) H 01/27/25 14:42
Insulin Pump Settings
IP Diabetes Regimen
02/14/25 02/14/25 02/14/25
11:26 17:40 23:51
Glucose
POC Glucose 166 H 137 H 161 H
02/15/25
03:48
Glucose 137 H
POC Glucose
Meal type: Breakfast
Patient Education
--- NOTE | 2025-02-15 08:53 | PTCARENOTE ---
Rec'd care of patient at 0700. Patient intubated/sedated. Drowsy. Easily arousable to verbal stimuli. MAEx4. Following commands. Nodding head appropriately. Fentanyl drip weaned for SAT. Discussed plan with Industrial Editor and RT, planned SBT today.
Afib on tele monitor. Rate in the 90-100's. Rate increased to 110's with movement and coughing. +1 anasarca. #8 ett, 26cm @ the lip. Vent settings: ASV 70% mv, PEEP 5, 40% FiO2. Lung sounds coarse throughout. Harsh, moist cough present. Large amount
of thick, clear secretions suctioned from ett. Absent BS. Abdomen soft/round/tender to palpation. NGT to continuous suction. Brown output. No BM. Midline incision dressing with serosanguineous drainage. KIKI drain with small amount of sanguineous
output. Wilkerson in place for critical I/O. Output nicole. 90-175 cc's/hr. VSS. Febrile. Ofirmev administered. Left radial jonh leveled and zeroed. TPN and Amio gtts infusing through RDL PICC. Heparin and Fentanyl infusing through left midline. PTT
therapeutic x2. Patient repositioned and music turned on for comfort.
[2025-02-15] MEDS: LOPRESSOR 7.5 MG IV ×3 (10:09→23:50)
[2025-02-15] MEDS: DILAUDID 0.5 MG IV ×9 (10:09→23:04)
--- NOTE | 2025-02-15 10:18 | W.PN.CARDCBS ---
Today's Communication / Plan
-
Continue IV heparin, amiodarone, Lopressor for rate control of A-fib
Eventually change heparin to Eliquis when able to take p.o.'s
Might consider eventual ablation of A-fib as an outpatient
Impression / Plan
-
.
Primary Farm Agent: Dr. Pickett
Primary EP: Dr Solorio
PCP: Dr Peñaloza
HPI: Patient with history of cardioembolic occlusion of left common femoral artery 06/2023, right iliac artery occlusion status post thromboembolectomy 10/29/2024. During that time was also noted to be in persistent rapid A-fib initially discovered
07/2023 with history of noncompliance with medications. Also with known low EF suspected tachycardia mediated status post cath 05/2024 with nonobstructive CAD.
He presented back to the ED 11/2024 due to generalized malaise and was noted to have a seroma of his right groin s/p I/D and wound vac. He was also found to be in decompensated heart failure with reduced ejection fraction and have atrial
fibrillation with rapid ventricular rates. Plan for LUIS ENRIQUE cardioversion but LUIS ENRIQUE 01/04/2025 showed massive occlusive thrombus in left atrial appendage. Most recently, presented on 01/27/2025 with acute onset abdominal pain found to have acute
mesenteric ischemia with SMA occlusion, went to OR for exploratory laparotomy and SMA thrombectomy. Postop shock with metabolic/lactic acidosis, on Levophed and intubated. Cardiology consulted for management of atrial fibrillation and heart failure
Impression:
Acute mesenteric ischemia with SMA occlusion, status post exploratory lap and SMA thrombectomy 01/27/2025 and redo OR 02/07/2025 and OR 02/08/2025
Acute hypoxemic respiratory failure
Shock with metabolic/lactic acidosis
Right groin seroma
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
Persistent atrial fibrillation, first discovered July 2023
Non-ND myocardial injury
Chronic OAC with eliquis
Left atrial appendage thrombus by LUIS ENRIQUE 12/2024
Chronic HFrEF
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
NSVT
Hyperthyroidism
Noncompliance
Depression
History of ETOH and tobacco abuse
Obesity
Ventilator dependent respiratory failure
ECHO 04/04/2024: EF 10 to 15%, severe global hypokinesis, mild MR, trace TR, PAP 30 to 33 mmHg
Cardiac catheterization 05/22/2024: Nonobstructive coronary disease with normal to mildly elevated right and left-sided filling pressures with normal cardiac output
Echocardiogram 10/30/2024: Severely dilated left ventricle, severely reduced LV systolic function, global hypokinesis with ejection fraction of 5-10%, moderate to severe eccentric TR with PA pressure of 30-35 mmHg, small pericardial effusion.
LUIS ENRIQUE 01/04/2025: LVEF 10 to 15%, definite massive occlusive thrombus in left atrial appendage, mild MR, moderate to severe TR
Plan:
Hopefully be able to wean from ventilator later today
Tolerating heparin with relatively stable hemoglobin of 8.8
Continue IV heparin until able to take Eliquis given multiple embolic events in the past
Continue IV amiodarone and Lopressor as unable to take p.o.
Lasix currently on hold and weight is relatively stable at 260 pounds
Continue meropenem and micafungin for infection.
His severe LV dysfunction is likely tachycardia mediated and related to noncompliance.
Long-term plan would likely be to repeat transesophageal echo (given large occlusive thrombus in left atrial appendage) if he recovers from abdominal procedures and then make a plan regarding risk of ablation.
Progress Note - Farm Agent
Subjective
Date of Service: February 15, 2025
He remains intubated but awake
Objective
Labs:
02/15/25 03:48
02/15/25 03:48
Labs
Hgb 8.8 g/dL (13.0-18.0) L 02/15/25 03:48
Hct 27.7 % (39.0-52.0) L 02/15/25 03:48
Plt Count 394 10^3/uL (130-400) 02/15/25 03:48
PT 15.6 Sec (11.4-14.6) H 02/14/25 04:43
INR 1.19 02/14/25 04:43
APTT 96.8 Sec (23.4-35.0) H 02/15/25 07:25
Sodium 143 mmol/L (135-145) 02/15/25 03:48
Potassium 5.2 mmol/L (3.5-5.1) H 02/15/25 03:48
BUN 46 mg/dl (9-20) H 02/15/25 03:48
Creatinine 0.8 mg/dL (0.7-1.3) 02/15/25 03:48
Glucose 137 mg/dl (70-99) H 02/15/25 03:48
Vital Signs and I&O:
Vital Signs
Temp Pulse Resp BP Pulse Ox
101.5 F H 104 147/63 100
02/15/25 08:48 02/15/25 10:09 02/15/25 09:45 02/15/25 10:09 02/15/25 08:02
Vital Signs
Temp Pulse Resp BP Pulse Ox
101.5 F H 104 26 14763 100
02/15/25 08:48 02/15/25 10:09 02/15/25 09:45 02/15/25 10:09 02/15/25 08:02
Intake & Output
02/13/25 02/14/25 02/15/25 02/16/25
06:59 06:59 06:59 06:59
Intake Total 3525.8 / 3663.9 2939.2 / 3050.7 3252.9 / 3480.6 625.8 / 625.8
Output Total 3700 / 3800 4660 / 4680 2260 / 2435 420 / 420
Balance -174.2 / -136.1 -1720.8 / -1629.3 992.9 / 1045.6 205.8 / 205.8
Physical Exam
Physical Exam
General: Intubated but awake
Neck: Supple, no JVD, HJR, carotids +2 B/L, no bruits bilaterally.
Heart: Non displaced PMI, RRR, no murmurs, No S3, S4, no rubs.
Lungs: Scattered rhonchi
Extremities: No clubbing, cyanosis or edema bilaterally.
Neuro: Intubated but awake
--- NOTE | 2025-02-15 10:40 | PTCARENOTE ---
Fentanyl drip off at 1015. PRN Dilaudid ordered and administered for pain management. SBT initiated by RT at 1035. CPAP 8/5 40%.
--- NOTE | 2025-02-15 10:40 | W.PN.CRS1 ---
Today's Communication / Plan
-
TPN
trend labs
abdominal binder/wound care
Assessment/Plan
-
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
POD 7 take-back, abdominal washout, replacement of vac
POD 8 exlap, SBR of ~120cm, left in discontinuity and open due to worsening septic shock, placed abthera vac
POD 17 takeback, abdominal closure
POD 18 ex lap SMA thromboembolectomy by Dr. Wilkerson; intraoperative consult for mesenteric ischemia without overt signs of necrosis
4/2 - 200-300mL dark blood expressed from midline, held hepgtt, applied pressure dressing and binder
4/3 - no additional bleeding, but 265mL of sanguinous output from subQ drain, heparin gtt restarted
Tmax 102.5, VSS, off pressors
WBC 18.9 from 18.3, Hb 8.8 from 8.5
- Mesenteric ischemia, c/b perforation and 120cm of necrotic bowel, s/p open abdomen, s/p SB anastomosis with abdominal closure
-C/b subQ bleeding, seems to have stopped; cont abdominal binder for tamponade effect
-Appreciate ICU
-Wean vent as tolerated, no plan for surgery at this time
-Cont pain control
-MAP >65
�Continue n.p.o. with NGT
� Continue TPN until tolerating solid food; hold on tube feeds due to NGT output
� Continue Zosyn and micafungin; f/u cultures, appreciate ID
� Appreciate hospitalist
Subjective Data
Procedure
01/27/2025- Ex lap, SMA embolectomy
01/28/2025- Exploratory laparotomy, mesenteric angiography, partial omentectomy, tap block, abdominal closure
02/07/2025- Exploratory laparotomy, small bowel resection, lysis of adhesions, placement of ABThera wound VAC
02/08/2025- Exploratory laparotomy, abdominal washout, mesenteric angiography with spy, placement of ABThera VAC
02/11/2025- exlap, small bowel anastomosis, abdominal wall closure, bilateral cutaneous advancement flaps
Subjective Data
Date of Service: February 15, 2025
Patient is intubated. He winces when his abdomen is palpated.
Objective Data
-
Vital Signs
Temp Pulse Resp BP Pulse Ox
101.5 F H 104 26 147/63 100
02/15/25 08:48 02/15/25 10:09 02/15/25 09:45 02/15/25 10:09 02/15/25 08:02
Intake & Output
02/14/25 02/15/25 02/16/25
06:59 06:59 06:59
Intake Total 2939.2 / 3050.7 3252.9 / 3480.6 625.8 / 625.8
Output Total 4660 / 4680 2260 / 2435 420 / 420
Balance -1720.8 / -1629.3 992.9 / 1045.6 205.8 / 205.8
Intake:
Oral fluids 0 / 0
IV fluids (Total) 952.2 / 994.7 1346.9 / 1405.6 219.8 / 219.8
Amiodarone 400.8 / 417.5 400.8 / 417.5 66.8 / 66.8
Fentanyl 180.0 / 195.0 392.5 / 402.5
Heparin 33 / 33 532 / 564 128 / 128
Propofol 338.4 / 349.2 21.6 / 21.6
IV piggybacks 220 / 220 100 / 200 100 / 100
TPN/PPN 1587 / 1656 1656 / 1725 276 / 276
Amount instilled into GI Tube ( 180 / 180 150 / 150 30 / 30
Total)
[place] Sump 180 / 180 150 / 150 30 / 30
Output:
Drain Output (Total) 265 / 265 50 / 50
[facility] 265 / 265 50 / 50
Gastrointestinal tube output ( 650 / 650 150 / 150
Total)
[place] Sump 650 / 650 150 / 150
Urine, Wilkerson 3745 / 3765 2060 / 2235 420 / 420
Lab Results
02/15/25 03:48
02/15/25 03:48
Physical Exam
-
General: Other (Intubated)
Abdomen: Tender (midline, bry in place, no active bleeding noted)
Skin: Warm and Dry
Incision: Serous Drainage (middle aspect of midline)
[2025-02-15] MEDS: LASIX 40 MG IV ×2 (10:56→21:07)
[2025-02-15 12:04] LABS: Glucose - Point of Care 185 mg/dl (70-99)
--- NOTE | 2025-02-15 12:09 | PTCARENOTE ---
Systems reviewed. Around 1100, patient restless and pulling on restraints. Attempting to draw attention to abdomen and ett. CPOT 5. Dilaudid administered as ordered. Patient continuing with agitation and restlessness. BP and HR elevated.
Repositioned for comfort and additional dose of Dilaudid administered. In response to second dose of Dilaudid, patient resting comfortably. HR down to 90-100's (afib). BP down to 130-140's/60's. Episodes of apnea increased on ventilator. RASS -1.
Easily arousable. Pulse ox 99%. Lung sounds coarse throughout. Large amount of thick, clear sputum suctioned from ett. Frequency of cough decreased after suctioning. Urine out 750 cc's s/p administration of 40mg IV Lasix. Core temp 102.6. Ofirmev
administered at 0712. Patient packed in ice packs. Diagnostic Tech aware. No other changes.
--- NOTE | 2025-02-15 12:48 | PTCARENOTE ---
ABG sent. Patient placed back on ASV settings d/t frequent apnea.
[2025-02-15 12:50] LABS: B.E. 1.7 mmol/L; HCO3 27.2 mmol/L (21-28); O2 Saturation % 99.6 % (94-98); PCO2 46 mmHg (35-48); PO2 130 mmHg (83-108); pH 7.38 (7.35-7.45)
--- NOTE | 2025-02-15 12:50 | CM ---
CM following re: discharge planning.
Reviewed pt's chart, met with pt.
Per Rounds meeting pt remains intubated, colorectal surgery following, continue supportive care.
Pt lives in an apartment/rented room, , 2nd floor, 2FF of steps to get to his apartment. Pt has no children, has 4 brothers, 3 sisters and a mother, one brother lives with mother and brother Jag lives in [facility]. Pt has supportive friend
Angie. 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
D/C plan: [facility] when medically stable.
CM will follow with discharge plan updates as hospitalization progress
[2025-02-15] MEDS: CORDARONE 518 MG IV (14:41)
--- NOTE | 2025-02-15 16:27 | PTCARENOTE ---
No major changes in assessment. Patient alert and following commands. Pain controlled with PRN Dilaudid. Afib with rate in the 90-100's. Vent settings unchanged. No BM. NGT remains to suction. Urine output decreased to 125 cc/hr. TPN/Amio/Heparin
infusing as ordered. VSS. Core temp down to 101.
--- NOTE | 2025-02-15 17:22 | W.PN.UPDATE ---
Update Note
Progress Note Update
Updated sister and primary contact at length by phone
Reviewed clinical course over the past few days. Reviewed attempted ventilator wean complicated by tachycardia, rapid shallow breathing, intermittent pain requiring fentanyl which then would lead to episodic apnea. Today we tried hydromorphone,
similar issues
Patient became tachycardic heart rate in the 120s 130s, systolic pressure in the 170s towards the end of CPAP wean on 03/21. With this, ABG pH 7.38/46/130
Significant secretions noted, patient also with coughing which made abdominal pain more problematic
Reviewed at length plan moving forward
Lasix therapy tonight
Discontinue propofol
DuoNebs, budesonide started given significant secretions
Chest x-ray in the a.m.
Resume weaning as able
Discussed with sister limitations to wean, including nutritional status, pain, multiple surgeries, underlying COPD suspected based on significant smoking history, diaphragmatic weakness
Timeline was provided where by if by middle of next week unable to liberate from the ventilator, we will need to consider tracheotomy
She would like to have this discussion with her brother. She would prefer to have this discussion early next week. She is requesting to not discuss it with him as she is afraid that it may make him less inclined to wean
We will respect her wishes
Sister is realistic with regards to long-term outcome
Reviewed at length with critical care nursing
Reviewed with surgery
TCCT 33 min
[2025-02-15 17:33] LABS: Glucose - Point of Care 156 mg/dl (70-99)
--- NOTE | 2025-02-15 17:53 | RESPNOTE ---
ETT finney changed with CARROL New. ETT 8.0 @24 on RIGHT side of mouth.
[2025-02-15] MEDS: FLOVENT 110 MCG INHALER 4 PUFF INH (19:14)
[2025-02-15] MEDS: DUONEB 3 ML INH (19:14)
[2025-02-15] MEDS: Parenteral Nutrition, Central 1650 IV (20:44)
[2025-02-15 23:54] LABS: Glucose - Point of Care 151 mg/dl (70-99)
--- NOTE | 2025-02-16 | PTCARENOTE ---
Pt constantly alarming via the vent. Copious amounts of oral secretions removed. Continuing with PRN Dilaudid for abdominal pain. Pt responded well to IV lasix.
[2025-02-16] MEDS: DILAUDID 0.5 MG IV ×11 (01:00→22:47)
[2025-02-16] MEDS: HEPARIN 25000 UNITS/250 ML IV ×3 (03:07→17:53)
[2025-02-16] MEDS: MERREM 500 MG IV (04:14)
[2025-02-16] MEDS: STERILE WATER FOR INJECTION 10 ML IV (04:14)
[2025-02-16 05:07] LABS: B.E. 3.4 mmol/L; HCO3 28.5 mmol/L (21-28); O2 Saturation % 99.6 % (94-98); PCO2 45 mmHg (35-48); PO2 138 mmHg (83-108); pH 7.41 (7.35-7.45)
[2025-02-16 05:16] LABS: Hematocrit 26.8 % (39.0-52.0); Hemoglobin 8.5 g/dL (13.0-18.0); Mean Corp Hgb Conc. 31.7 g/dL (33.0-37.0); Mean Corpuscular Hgb 32.4 pg (27.0-31.0); Mean Corpuscular Volume 102.3 fL (80.0-94.0); Mean Platelet Volume 10.6 fL (7.4-10.4); Platelet Count 437 10^3/uL (130-400); Red Blood Cell Count 2.62 10^6/uL (4.70-6.10); Red Cell Dist. Width 16.9 % (11.5-14.5); White Blood Cell Count 21.9 10^3/uL (4.8-10.8)
[2025-02-16] MEDS: ATIVAN 1 MG IV (05:28)
[2025-02-16 05:40] LABS: Blood Urea Nitrogen 46 mg/dl (9-20); Calcium 8.1 mg/dl (8.4-10.2); Carbon Dioxide 29 mmol/L (22-30); Chloride 109 mmol/L (98-107); Estimated Creatinine Clearance 116 ml/min; Glucose 150 mg/dl (70-99); Magnesium 2.1 mg/dl (1.6-2.3); Phosphorus 3.3 mg/dl (2.5-4.5); Potassium 4.4 mmol/L (3.5-5.1); Sodium 142 mmol/L (135-145); Triglycerides 226 mg/dl (10-149); eGFR > 60.00
--- NOTE | 2025-02-16 05:45 | RESPNOTE ---
pt awake and alert all shift, working at ETT with tongue. ETT partially dislodged at approx 0515. Pt given ativan to change tube finney and secure tube adequately. VSS throughout tube finney change.
Tube secure, placement verified with BBS noted.
[2025-02-16 05:50] LABS: Glucose - Point of Care 159 mg/dl (70-99)
[2025-02-16 06:00] VITALS: BMI 34.3
[2025-02-16] MEDS: LOPRESSOR 7.5 MG IV ×3 (06:13→17:42)
[2025-02-16 06:17] LABS: APTT 62.2 Sec (23.4-35.0)
--- NOTE | 2025-02-16 06:26 | W.PN.HOSP.TC ---
Today's Communication/Plan
-
see a/p
Assessment / Plan
Assessment / Plan
Physical Exam
General: Obese
HEENT: Normocephalic, Atraumatic, intubated
Respiratory: Clear to Auscultation bilaterally
Cardiac: Normal S1/S2, tachycardic rate and irregular rhythm
GI: Soft, distended, incision dressed
Extremities: No Clubbing, No Cyanosis
Neuro: awake alert following commands
59M hx dilated cardiomyopathy, EF 5-10%, afib LV thrombus on AC non-compliant, left lower extremity arterial occlusion due to thromboembolism 07/06 and acute limb ischemia RLE s/p thromboembolectomy 11/06 presented to the ER with abdominal pain and
shortness of breath. 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 Post-op course complicated with
ileus.
A/P:
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
Post-op Ileus
Fever unknown origin possibly infectious vs drug fever
-appreciate vascular, CRS, Repacker consults
-s/p OR 01/27: thromboembolectomy of SMA, placement ABThera Vac
-s/p OR 01/28: exploratory laparotomy, mesenteric angiography, partial omentectomy, tap block, abdominal closure
-s/p IV Zosyn - completed 7 day course, however fever/leukocytosis persist
-TPN initiated on 02/02
-02/07, CT abdomen and pelvis showed new mild intraperitoneal free air indicating a perforated viscus
-s/p OR 02/07: exploratory laparotomy, small bowel resection, lysis of adhesions, placement of ABThera wound VAC
-Continue NPO, NGT, TPN
-ID eval appreciated micafungin completed, empiric IV zosyn switched to meropenem, later switched to Vancomycin d/t Enterococcus faecium noted in wound culture
-cont IV tylenol prn, ice packs prn
-wean Levophed as tolerated
-Returned to OR with CRS 02/11/2025 exploratory lap, small bowel anastomosis, abd wall closure, bilateral cutaneous advancement flaps,repeat wound culture results pending
-02/13/25 developed increased abd distension firmness w/ associate drop in hgb overnight, CRS eval appreciated 200-300 mL of dark sanguinous blood expressed from midline wound likely subcutaneous bleed, abd binder applied and hep gtt briefly held
since resumed
-Trend fever and white count
Hypoxic Respiratory Failure status post intubation
-Appreciate costume cutter input, continue vent management as per costume cutter
-failed multiple attempts to wean off ventilator.
-Repacker Update Note 02.15.25 discussion with family (sister Keyla) appreciated
Hypokalemia
Hypophosphatemia
-monitor and replete as necessary
Toxic metabolic encephalopathy
-Monitor
Permanent AFIB with RVR
Left atrial appendage thrombus
-Status post Cardizem drip
-appreciate Cardiology, continue IV amiodarone drip, IV heparin drip on hold as above
-IV metoprolol held due to hypotension/shock since resumed
-resume Metoprolol when able to take PO
-resume Eliquis when confirm no need for further procedures
Acute on chronic HFrEF (EF 5-10%)
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
-IV Lasix as needed as per cardiology
-Trend creatinine, trend daily weights
-02/14 ECHO appreciated EF10-15% mod MR TR no significant change from prior ECHO
Bacteruria
-UA on 02/05/25 with bacteuria
-Was on Rocephin, changed to Zosyn, then meropenem as above
Hyperthyroid--new diagnosis last admission?--on methimazole but would hold for now
-repeat TSH here Low but T4 wnl
-cont methimazole hold
-suspect euthyroid-sick syndrome
-repeat TFTs in 1 month
Type 2 diabetes
-well controlled on sliding scale
-cont glycemic control
PAD
Active smoker
smoking cessation counseled
DVT proph - IV heparin drip
Code status - Full Code
Total Critical Care Time__35__ minutes. I was immediately available to the patient and staff. I personally examined, reviewed labs, diagnostic images/reports, interpretations, treatment plans, discussed patient care with other providers, entered
orders as appropriate and documented the medical record.
Anticipated Discharge: > 48 hours
Subjective/Interval History
-
Date of Service: February 16, 2025
Objective Data
-
Labs:
Laboratory Results
02/16/25
04:58
WBC 21.9 H
Hgb 8.5 L
Hct 26.8 L
Plt Count 437 H
APTT 62.2 H
HCO3 28.5 H
Sodium 142
Potassium 4.4
Chloride 109 H
Carbon Dioxide 29
BUN 46 H
Creatinine 0.9
Glucose 150 H
Calcium 8.1 L
Vital Signs:
Vital Signs
Temp Pulse Resp BP Pulse Ox
101.6 F H 101 18 118/50 100
02/16/25 03:06 02/16/25 06:13 02/16/25 02:45 02/16/25 06:13 02/16/25 04:00
I&O
02/14/25 02/15/25 02/16/25
06:59 06:59 06:59
Intake Total 2939.2 / 3050.7 3252.9 / 3480.6 3199.8 / 3199.8
Output Total 4660 / 4680 2260 / 2435 5680 / 5680
Balance -1720.8 / -1629.3 992.9 / 1045.6 -2480.2 / -2480.2
[2025-02-16] MEDS: NOVOLOG FLEXPEN-MODERATE RESISTANCE SC ×3 (07:05→23:54)
[2025-02-16 07:14] LABS: Glucose - Point of Care 144 mg/dl (70-99)
[2025-02-16] MEDS: FLOVENT 110 MCG INHALER 4 PUFF INH ×2 (07:36→19:16)
[2025-02-16] MEDS: DUONEB 3 ML INH ×4 (07:36→19:16)
--- NOTE | 2025-02-16 08:25 | W.PN.ID1 ---
Date of Service
Date of Service: February 16, 2025
Today's Communication
Discontinue meropenem. Begin vancomycin.
Assessment / Plan
Ongoing fevers
- ?infection ?post-op ?drug fever.
- Given persistence and curve, suspect drug fever is most likely etiology.
Leukocytosis
Mesenteric ischemia with perforation and necrotic bowel
- s/p washout and primary abdominal closure (02/11/2025)
VDRF
Severely dilated cardiomyopathy with markedly diminished EF
Hx A-fib
Recommendations:
Multiple possible etiologies of fever and leukocytosis, including drug fever, versus ongoing abdominal process.
- Given persistence of fever, drug fever becomes higher on the differential.
Duplex ultrasound positive for left mid brachial vein, although doubt that this is the etiology of the ongoing fever.
Wound culture noted to be positive with Enterococcus
D/C meropenem. Micafungin discontinued 02/14/2025
Begin vancomycin.
Follow white count and temperature curve.
Continue with supportive care. Wean as is possible.
Patient remains critically ill, vent dependent and in intensive care unit
����������������������������������������������������������
Chief Complaint
-: Fever and Leukocytosis
Subjective / Review of Systems
Patient seen and examined. Ongoing, unrelenting fevers noted. Patient remains vent dependent at this time.
Vital Signs / Physical Exam
Vital Signs
Vital Signs
Temp Pulse Resp BP Pulse Ox
101.6 F H 90 20 118/50 99
02/16/25 07:00 02/16/25 07:41 02/16/25 07:41 02/16/25 06:13 02/16/25 07:41
Physical Exam
Constitutional: Acutely Ill and Non-toxic
Head: Normocephalic
Eyes: No Conjunctival Hemorrhage
Oropharyngeal: Other (ET tube in place. NG tube in place.)
Cardiovascular: Regular Rate (Tachycardic) and S1/S2; Negative S3/S4
Pulmonary: Clear and Other (ET tube to vent.)
Gastrointestinal: Soft, Decreased Bowel Sounds, No Rebound, No Guarding and Other (Abdominal binder in place. KIKI in place with bloody drainage)
Genito-Urinary: Wilkerson and Clear Urine
Extremities: Edema (2+ bilateral lower extremity edema); Negative Cyanosis or Erythema
Neurological: Other (Arousable to touch.)
Lines: PICC (LUE midline; RUE PICC line)
Objective Data
Lab Data
Lab Results
02/16/25 04:58
02/16/25 04:58
PT 15.6 Sec (11.4-14.6) H 02/14/25 04:43
INR 1.19 02/14/25 04:43
APTT 62.2 Sec (23.4-35.0) H 02/16/25 04:58
Estimated Creat Clear 116 ml/min 02/16/25 04:58
Lactic Acid 1.1 mmol/L (0.7-2.0) 02/09/25 04:00
Total Bilirubin 6.5 mg/dl (0.2-1.3) H 02/12/25 03:51
AST 36 U/L (17-59) 02/12/25 03:51
ALT 35 U/L (0-50) 02/12/25 03:51
Alkaline Phosphatase 108 U/L (38-126) 02/12/25 03:51
Most recent labs reviewed.
Micro Results:
02/11/25 13:11 Blood Culture - Preliminary
Blood/Venous No Growth in 4 days- Final report to follow
02/11/25 15:30 Wound Culture - Preliminary
Abdomen Enterococcus faecium
Gram Stain - Preliminary
02/11/25 15:30 Anaerobic Culture - Preliminary
Other-Please specify - Other Culture pending. Anaerobic cultures are examined after 3
days incubation. Additional information to follow.
02/14/25 13:46 Respiratory Culture - Preliminary
Tracheal Aspirate Usual Respiratory Shireen
Gram Stain - Preliminary
02/07/25 18:36 Blood Culture - Final
Blood/Venous No Growth - Final Report
02/11/25 15:30 Fungal Culture - Preliminary
Other-Please specify - Other Culture in progress.
Positive cultures are reported as soon as detected.
Final report to follow in four to five weeks.
02/11/25 14:22 C. difficile GDH Antigen & Toxins - Final
Feces/Stool Negative for toxigenic C.difficile
02/11/25 10:41 Influenza Types A & B (SHERLYN) - Final
Nasal Swab Negative for Influenza A & B, NAAT
Negative results must be combined with clinical observations
and patient history.
Nucleic Acid Amplification test (NAAT)performed on the
[employer] platform.
02/09/25 09:21 Urine Culture - Final
Urine NO GROWTH
01/27/25 12:14 Blood Culture - Final
Blood/Venous No Growth - Final Report
01/27/25 21:32 MRSA Screen - Final
Nose No Methicillin Resistant Staphylococcus aureus isolated.
Imaging:
02/13/2025 CXR (portable): Mild haziness in the right medial lower lung field. Poor visualization of the medial left hemidiaphragm. No pleural effusion or pneumothorax noted.
02/11/2025 CXR (portable): Hazy opacification along both lower lungs without significant change. No significant pleural effusion is noted.
Care Review
Plan reviewed with: Physician (Critical Care)
--- NOTE | 2025-02-16 08:30 | PTCARENOTE ---
Rec'd care of patient at 0700. Patient intubated. Sedation off since yesterday. Following commands and nodding head appropriately. MAEx4. Afib on tele monitor. +1 anasarca. #8 ett, 26cm @ the lip. ASV 70% mv, PEEP 5, 40% FiO2. Lung sounds coarse
throughout. Harsh, moist cough requiring frequent endotracheal suctioning. Hypo BS. Abdomen soft/round/tender to palpation. NGT to continuous suction. Green/brown output. Midline incision dressing intact. KIKI drain with small amount of sanguineous
output. Wilkerson in place for critical I/O. Remains febrile. VSS. Left radial jonh leveled and zeroed. TPN and Amio gtts infusing through RDL PICC. Heparin infusing through left midline. Full assessment and care as charted on worklist.
[2025-02-16] MEDS: NSS (PRESERVATIVE FREE) 10 ML IV (08:37)
[2025-02-16] MEDS: PROTONIX IV 40 MG IV (08:37)
--- NOTE | 2025-02-16 08:41 | PTCARENOTE ---
Addendum entered by Virgen Wills RN 02/16/25 09:19:
Repeat PTT 95.7. Heparin gtt therapeutic. No changes.
Original Note:
PTT result on am labs 62.2. notified. Due to recent bleeding and Heparin gtt therapeutic x2 prior, repeat PTT drawn and sent.
[2025-02-16 09:08] LABS: APTT 95.7 Sec (23.4-35.0)
[2025-02-16 09:13] VITALS: BP 141/97
[2025-02-16 09:14] VITALS: BP 141/97
--- NOTE | 2025-02-16 09:43 | PHA.VAN.IN ---
Assessment
- Assessment
Renal Function: Appears similar to baseline
Maximum Temperature: 102.3 - 02/15/25 @1200
Concomitant Antimicrobials: none
AUC Dosing Plan
- Dosing Variables
Dosing Weight (kg): 114
Dosing CrCl (ml/min): 100
Vd coefficient (L/kg): 0.6
- Empiric Dosing
Initial / Loading Dose: 1500 x 1 now adm pending
Maintenance Regimen: 1500 mg q12h
Estimated AUC (mcg*h/mL): 535
Estimated Peak (mcg*h/mL): 33.8
Estimated Trough (mcg/ml): 13.5
Estimated Half Life (H): 7.9
- Monitoring
No levels ordered at this time: consider levels after 4th dose Tuesday
Pharmacokinetics Vancomycin I
- -
Patient Age: 59
Patient Sex: Male
Vancomycin Day #: 1
Indication: Gi / Intra-Abdominal
Requesting Provider: Irina Bruno
Height / Weight:
Height 6 ft
Actual Weight 114.5 kg
IBW in k.6
Adjusted BW in k.4 (BMI 34.2)
Pertinent Past Medical History: mesenteric ischemia w/perf; intubated
- Vital Signs / Lab Results
Temp Pulse Resp BP Pulse Ox
101.5 F H 103 22 141/97 98
02/16/25 09:13 02/16/25 09:15 02/16/25 09:15 02/16/25 09:14 02/16/25 09:15
Lab Results - Hematology
02/14/25 02/14/25 02/14/25
03:58 10:14 17:17
WBC 18.3 H 19.0 H 18.2 H
02/15/25 02/16/25
03:48 04:58
WBC 18.9 H 21.9 H
Lab Results - Chemistry
02/14/25 02/15/25 02/16/25
03:58 03:48 04:58
BUN 50 H 46 H 46 H
Creatinine 0.9 0.8 0.9
Estimated Creat Clear 115 > 125 116
Microbiology Results
02/11/25 15:30 Wound Culture - Preliminary
Abdomen Enterococcus faecium
Gram Stain - Preliminary
02/11/25 13:11 Blood Culture - Preliminary
Blood/Venous No Growth in 4 days- Final report to follow
02/11/25 15:30 Anaerobic Culture - Preliminary
Other-Please specify - Other Culture pending. Anaerobic cultures are examined after 3
days incubation. Additional information to follow.
02/14/25 13:46 Respiratory Culture - Preliminary
Tracheal Aspirate Usual Respiratory Shireen
Gram Stain - Preliminary
[2025-02-16] MEDS: VANCOCIN 530 MG IV ×2 (10:18→17:41)
--- NOTE | 2025-02-16 10:36 | W.PN.CARDCBS ---
Today's Communication / Plan
-
Remains in A-fib with poor rate control at times not likely affecting clinical status
Continue IV heparin, Lopressor, amiodarone
Overall prognosis remains poor and continues to be unable to wean from ventilator and not able to take p.o.'s
Eventual Eliquis if able to take p.o.'s and stable from surgical standpoint
Impression / Plan
-
.
Primary Coating Mixer Tender: Dr. Pickett
Primary EP: Dr Solorio
PCP: Dr Peñaloza
HPI: Patient with history of cardioembolic occlusion of left common femoral artery 06/2023, right iliac artery occlusion status post thromboembolectomy 10/29/2024. During that time was also noted to be in persistent rapid A-fib initially discovered
07/2023 with history of noncompliance with medications. Also with known low EF suspected tachycardia mediated status post cath 05/2024 with nonobstructive CAD.
He presented back to the ED 11/2024 due to generalized malaise and was noted to have a seroma of his right groin s/p I/D and wound vac. He was also found to be in decompensated heart failure with reduced ejection fraction and have atrial
fibrillation with rapid ventricular rates. Plan for LUIS ENRIQUE cardioversion but LUIS ENRIQUE 01/04/2025 showed massive occlusive thrombus in left atrial appendage. Most recently, presented on 01/27/2025 with acute onset abdominal pain found to have acute
mesenteric ischemia with SMA occlusion, went to OR for exploratory laparotomy and SMA thrombectomy. Postop shock with metabolic/lactic acidosis, on Levophed and intubated. Cardiology consulted for management of atrial fibrillation and heart failure
Impression:
Acute mesenteric ischemia with SMA occlusion, status post exploratory lap and SMA thrombectomy 01/27/2025 and redo OR 02/07/2025 and OR 02/08/2025
Acute hypoxemic respiratory failure
Shock with metabolic/lactic acidosis
Right groin seroma
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
Persistent atrial fibrillation, first discovered July 2023
Non-MN myocardial injury
Chronic OAC with eliquis
Left atrial appendage thrombus by LUIS ENRIQUE 12/2024
Chronic HFrEF
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
NSVT
Hyperthyroidism
Noncompliance
Depression
History of ETOH and tobacco abuse
Obesity
Ventilator dependent respiratory failure
ECHO 04/04/2024: EF 10 to 15%, severe global hypokinesis, mild MR, trace TR, PAP 30 to 33 mmHg
Cardiac catheterization 05/22/2024: Nonobstructive coronary disease with normal to mildly elevated right and left-sided filling pressures with normal cardiac output
Echocardiogram 10/30/2024: Severely dilated left ventricle, severely reduced LV systolic function, global hypokinesis with ejection fraction of 5-10%, moderate to severe eccentric TR with PA pressure of 30-35 mmHg, small pericardial effusion.
LUIS ENRIQUE 01/04/2025: LVEF 10 to 15%, definite massive occlusive thrombus in left atrial appendage, mild MR, moderate to severe TR
Plan:
He was not able to be extubated on. Trying another weaning trial today.
Tolerating heparin with relatively stable hemoglobin of 8.5 on 02/16/2025
Continue IV heparin until able to take Eliquis given multiple embolic events in the past
Continue IV amiodarone and Lopressor as unable to take p.o. heart rate control remains suboptimal but not likely affecting clinical status.
Lasix currently on hold and weight is relatively stable between 252 pounds and 263 pounds but may not be accurate as it is bed scale
Continue meropenem and micafungin for infection.
His severe LV dysfunction is likely tachycardia mediated and related to noncompliance.
Long-term plan would likely be to repeat transesophageal echo (given large occlusive thrombus in left atrial appendage) if he recovers from abdominal procedures and then make a plan regarding risk of ablation.
However long-term prognosis is likely poor and hospice discussions likely to occur
Progress Note - Coating Mixer Tender
Subjective
Date of Service: February 16, 2025
Awake on the ventilator but no response to questions
Objective
Labs:
02/16/25 04:58
02/16/25 04:58
Labs
Hgb 8.5 g/dL (13.0-18.0) L 02/16/25 04:58
Hct 26.8 % (39.0-52.0) L 02/16/25 04:58
Plt Count 437 10^3/uL (130-400) H 02/16/25 04:58
PT 15.6 Sec (11.4-14.6) H 02/14/25 04:43
INR 1.19 02/14/25 04:43
APTT 95.7 Sec (23.4-35.0) H 02/16/25 08:36
Sodium 142 mmol/L (135-145) 02/16/25 04:58
Potassium 4.4 mmol/L (3.5-5.1) 02/16/25 04:58
BUN 46 mg/dl (9-20) H 02/16/25 04:58
Creatinine 0.9 mg/dL (0.7-1.3) 02/16/25 04:58
Glucose 150 mg/dl (70-99) H 02/16/25 04:58
Vital Signs and I&O:
Vital Signs
Temp Pulse Resp BP Pulse Ox
101.5 F H 107 22 141/97 100
02/16/25 09:13 02/16/25 10:00 02/16/25 10:00 02/16/25 09:14 02/16/25 10:00
Vital Signs
Temp Pulse Resp BP Pulse Ox
101.5 F H 107 22 141/97 100
02/16/25 09:13 02/16/25 10:00 02/16/25 10:00 02/16/25 09:14 02/16/25 10:00
Intake & Output
02/14/25 02/15/25 02/16/25 02/17/25
06:59 06:59 06:59 06:59
Intake Total 2939.2 / 3050.7 3252.9 / 3480.6 3199.8 / 3317.5 500.8 / 500.8
Output Total 4660 / 4680 2260 / 2435 5730 / 5830 322 / 322
Balance -1720.8 / -1629.3 992.9 / 1045.6 -2530.2 / -2512.5 178.8 / 178.8
Physical Exam
Physical Exam
General: Awake on ventilator but no response to questions
Neck: Supple, no JVD, HJR, carotids +2 B/L, no bruits bilaterally.
Heart: Non displaced PMI, irregular, no murmurs, No S3, S4, no rubs.
Lungs: Scattered rhonchi
Extremities: No clubbing, cyanosis or edema bilaterally.
Neuro: Awake on ventilator but no response to questions
--- NOTE | 2025-02-16 12:13 | PTCARENOTE ---
No major changes in assessment. Patient experiencing frequent harsh, moist cough. Endotracheal suctioning provided. Large amount of secretions suctioned. Pain treated with PRN Dilaudid. Repositioned for comfort.
[2025-02-16 12:34] LABS: Glucose - Point of Care 147 mg/dl (70-99)
[2025-02-16] MEDS: LASIX 40 MG IV (15:43)
--- NOTE | 2025-02-16 15:44 | W.PN.CRS1 ---
Today's Communication / Plan
-
NPO/NGT/TPN
Assessment/Plan
-
59-year-old male with PMH of A-fib (on Eliquis), hypothyroidism, PVD (s/p LLE thrombectomy 2022, RLE thrombectomy 2023) who presented with acute abdominal pain and found to have SMA occlusion
01/27/2025- Ex lap, SMA embolectomy
01/28/2025- Exploratory laparotomy, mesenteric angiography, partial omentectomy, tap block, abdominal closure
02/07/2025- Exploratory laparotomy, small bowel resection, lysis of adhesions, placement of ABThera wound VAC
02/08/2025- Exploratory laparotomy, abdominal washout, mesenteric angiography with spy, placement of ABThera VAC
02/11/2025- Exploratory laparotomy, small bowel anastomosis, abdominal wall closure, bilateral cutaneous advancement flaps
Febrile, off pressors with tachycardia
WBC continues to be elevated
H/H stable
Vent weaning as per ICU
--Continue NGT to suction
--Continue TPN for nutritional support
--ABX as per ID
--Local wound care
--C/W KIKI
--On PPI for GI ppx
--Continued on heparin gtt
� Medical management as per ICU/hospitalist teams
Subjective Data
Procedure
01/27/2025- Ex lap, SMA embolectomy
01/28/2025- Exploratory laparotomy, mesenteric angiography, partial omentectomy, tap block, abdominal closure
02/07/2025- Exploratory laparotomy, small bowel resection, lysis of adhesions, placement of ABThera wound VAC
02/08/2025- Exploratory laparotomy, abdominal washout, mesenteric angiography with spy, placement of ABThera VAC
02/11/2025- exlap, small bowel anastomosis, abdominal wall closure, bilateral cutaneous advancement flaps
Subjective Data
Date of Service: February 16, 2025
Patient seen and examined at bedside with Dr Woodard. Family present including the patient's sister who were updated on his status. Some coughing, opens eyes to light stimulation. But subjective portion exam limited.
Objective Data
-
Vital Signs
Temp Pulse Resp BP Pulse Ox
101.6 F H 126 18 129/68 98
02/16/25 11:00 02/16/25 15:43 02/16/25 15:33 02/16/25 15:43 02/16/25 15:33
Intake & Output
02/15/25 02/16/25 02/17/25
06:59 06:59 06:59
Intake Total 3252.9 / 3480.6 3199.8 / 3317.5 1649.3 / 1649.3
Output Total 2260 / 2435 5730 / 5830 727 / 727
Balance 992.9 / 1045.6 -2530.2 / -2512.5 922.3 / 922.3
Intake:
Oral fluids 0 / 0 0 / 0
IV fluids (Total) 1346.9 / 1405.6 1193.8 / 1242.5 438.3 / 438.3
Amiodarone 400.8 / 417.5 400.8 / 417.5 150.3 / 150.3
Fentanyl 392.5 / 402.5
Heparin 532 / 564 768 / 800 288 / 288
Propofol 21.6 / 21.6
IV piggybacks 100 / 200 200 / 200 530 / 530
TPN/PPN 1656 / 1725 1656 / 1725 621 / 621
Amount instilled into GI Tube ( 150 / 150 150 / 150 60 / 60
Total)
[place] Sump 150 / 150 150 / 150 60 / 60
Output:
Drain Output (Total) 50 / 50 40 / 40
[place] 50 / 50 40 / 40
Gastrointestinal tube output ( 150 / 150 200 / 200
Total)
[place] Sump 150 / 150 200 / 200
Urine, [place] 2059 7850 / 9790 727 / 727
Lab Results
02/16/25 04:58
02/16/25 04:58
Physical Exam
-
General: Other (Intubated)
Chest: Other (VDRF)
Abdomen: Soft, Non Distended (mild) and Tender (midline, bry in place, no active bleeding noted)
Skin: Warm and Dry
Wound: Dressing Changed
Incision: Serous Drainage (middle aspect of midline, bry intact, KIKI with SSF)
--- NOTE | 2025-02-16 16:10 | CM ---
Received consult to confirm that patient's sister is poa and to obtain paperwork.
--- NOTE | 2025-02-16 16:20 | PTCARENOTE ---
Systems reviewed. HR and BP elevated. HR 120-130's, afib. SBP up to the 150's. CPOT- 5. PRN Dilaudid administered. Urine output increased s/p 40mg IV Lasix. No other changes. Safe environment maintained.
[2025-02-16] MEDS: NOVOLOG FLEXPEN-MODERATE RESISTANCE 1 UNITS SC (17:40)
--- NOTE | 2025-02-16 17:51 | W.PN.INTV ---
Today's Communication / Plan
Recommendations
- Start Lasix 40 mg IV twice a day
-Follow-up chest x-ray and ABG in a.m.
Assessment
-
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
thromboembolic occlusion of the right iliac system s/p thromboembolectomy of the right iliac system + thromboembolectomy of the right SFA, popliteal artery and profundo-femoral artery (10/2024) who presents with abdominal pain and SOB. He was in
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 In the ER he was afebrile to 98.2 �F, pulse rate 135, breathing at 12 breaths/min, BP 162/110 and saturating 97% on room air. Initial
labs showed potassium 2.9, lactate 5.2, T. bili 2.1, and proBNP 4580. CTA A/P showed thrombosis of the SMA with small bilateral pleural effusions and groundglass attenuation in the bases of the lungs. He was given 40 mg IV Lasix in the ER,
Dilaudid 0.5 mg, potassium repletion, 1 L NS 0.9% and Zofran. Vascular surgery was consulted and given his significant abdominal pain of acute onset he was consented for the OR. He underwent exploratory laparotomy with thromboembolectomy of
superior mesenteric artery and placement of an AbThera VAC. Postoperatively he returned to the ICU intubated, and [employer] services consulted for additional management/recommendations. Patient was extubated and improved, and subsequently
downgraded to the IMU on 01/31. He was downgraded to telemetry on 02/04 where he has been managed. Unfortunately on 02/05 he developed a small bowel obstruction. On 02/07, repeat CT A/P showed free air in the abdomen indicating a perforated viscus.
He went to the OR for an ex lap with small bowel resection and placement of an ABThera wound VAC, and is now transferred back to the ICU intubated.
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
Assessment and plan:
#1. 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
- Patient to OR on 02/08/2025 for an ex lap with abdominal washout and mesenteric angiography (no cultures sent)
- Patient to OR again 02/11 for abdominal washout and wound closure, (culture sent positive Enterococcus)
- Postoperative management as per colorectal surgery
- Pain control. Unfortunately requiring fentanyl boluses as needed which during wean he becomes more apneic. Will try Dilaudid when closer to wean today
- Continue NGT on low continuous wall suction per surgery. NG tube drainage is decreasing
- Abdominal distention improved, abdominal binder in place. Hematoma evacuated per surgery at the bedside 4/ am. Heparin drip discontinued 4 am, resumed per surgery/cardiology 02/14. Hemoglobin remained stable
- Was on heparin drip as per colorectal surgery given his SMA occlusion. Resumed 02/14
- Follow hemoglobin, maintain active type and screen
#2. Ventilator dependent respiratory failure
- Intubated since 02/08
- Continue with mechanical ventilation with daily SAT/SBT as able
- Chest x-ray 02/15 with increased right lower lobe infiltrate, likely combination of plugging, atelectasis. Sputum culture pending
- Maintained on ASV 70% since 02/14. Will transition to CPAP and attempt to wean today. Limiting factor prior wean was tachycardia in the setting of EF 10 to 15%, rapid shallow breathing
- Increase secretions noted. Patient with adequate cough
- Aspiration precautions
- Ongoing plans for weaning and hope for extubation. Still volume overloaded.
#3. Circulatory shock
- Likely related to sedation with septic shock in the setting of A-fib with RVR and HFrEF, EF 10% on repeat echocardiogram
- Remains off pressors
- Trend WBC and monitor for fevers
- Also CT A/P from 02/07/2025 still shows circumferential wall thickening in the distal small bowel suggestive of enteritis
- Patient now on meropenem. Zosyn discontinued per ID, micafungin discontinued per ID
- Follow cultures, follow fever curve, follow leukocytosis
- Rev LUIS ENRIQUE from Dec 2024, large thrombus. Repeat echo 02/14 reveals no obvious thrombus, EF 10%
- Has not required pressors over the last week
#4. Acute mesenteric ischemia with SMA occlusion, likely embolic, s/p ex lap with SMA embolectomy (on 01/27/2025), followed by delayed abdominal wall closure with ex lap and partial omentectomy (on 01/28/2025)
- heparin had to be discontinued due to abdominal hematoma, resumed 02/14
- NG to suction as stated above, await return of bowel function
- Reviewed oncology evaluation few weeks ago, hypercoagulable workup negative at that time. Fibrinogen normal, no evidence of DIC presently
#5. Acute on Chronic heart failure with reduced ejection fraction, LVEF 10 to 15% with history of occlusive thrombus in MELISSA in the past
-Likely the source of embolic event to SMA
-Monitor input and output closely
-Start lasix 40 mg IV BID
-Repeat echo 02/14 with no obvious thrombus although poor study noted. Her EF remains 10%
#6. Atrial fibrillation with rapid ventricular rate
- Continue amiodarone gtt
- Now off cardizem gtt
- Resumed IV Lo, will increase to 7.5 mg every 6h
- Prior wean with limited by tachycardia, heart rate in the 150s with rapid shallow breathing. Hopefully this is improved upon resuming beta-renee therapy which she was on as outpatient
- Heparin drip for anticoagulation has been held due to abdominal hematoma, resumed 02/14
- LUIS ENRIQUE 01/04/2025 with EF 10 to 15%, normal RV size and function, moderate to severe TR, large occlusive thrombus in left atrial appendage. Repeat echo 02/14 with resolution of thrombus, EF remains 10%
#7. Hyperglycemia
- HbA1c 6.3 on 01/27/2025
- Started insulin drip on 02/08 given he is critically ill with hyperglycemia - this is now weaned off; will resume ISS q6hr
- Remains on TPN
#8. Abnormal urinalysis concerning for UTI
- UA on 02/05/2025 was positive for nitrites, with +1 leukocyte esterase and 6�10 urine WBC
- Ceftriaxone changed to Zosyn on 02/07/2025 in setting of small bowel perforation with sepsis
-Now on meropenem per ID. Follow cultures
Gi Prophylaxis: PPI IV
DVT ppx: Heparin gtt resumed 02/14
Continue ICU level care for this critically ill patient.
Critical care statement: A total of 36 minutes of critical care time was provided for this patient today. This includes management of unstable vital signs, evaluation of the patient at bedside, reviewing the patient's pertinent medical records
including radiographs, microbiology, laboratory evaluations, and discussion with primary team, consultants, pharmacy, nutrition, physical therapy, case management, charge nurse, critical care nursing, and respiratory therapy.
Data:
CTA Abd/Pelvis w/wo IV contrast 01/27/2025:
Thrombosis of superior mesenteric artery branches, new since prior examination.
No bowel thickening or pneumatosis to suggest bowel ischemia.
No acute inflammatory changes within the abdomen or pelvis.
Mild diverticulosis without acute diverticulitis.
Stable fatty infiltration of liver. Stable low-attenuation right adrenal mass 1.3 cm, most consistent with benign adenoma.
Hazy attenuation in the dependent lung bases. Groundglass attenuation. Small bilateral pleural effusions. Possible mild pulmonary edema and/or atelectasis.
CT A/P w IV and oral contrast 02/07/2025:
New mild intraperitoneal free air indicating a perforated viscus. The exact location is difficult to discern, but distribution of free air greatest in the anterior mid to upper abdomen near the persistently dilated proximal small bowel loops that
again contain air-fluid levels. Long segment distal small bowel smaller in caliber with circumferential wall thickening suggestive of an enteritis.
Subjective Dataa
Subjective Data
Date of Service:
Date of Service: February 16, 2025
Chief Complaint: [employer] Follow Up
Subjective:
Patient currently intubated, mechanically ventilated, on ASV. Off sedation.
Review of Systems
Genitourinary: Other (Noted to have edema both bilateral upper and lower extremities)
Objective Data
Data Reviewed
Vital Signs / I&O / Oxygen:
Vital Signs
Temp Pulse Resp BP Pulse Ox
101.9 F H 125 19 152/69 100
02/16/25 15:46 02/16/25 17:42 02/16/25 17:30 02/16/25 17:42 02/16/25 17:30
Intake and Output
02/15/25 02/16/25 02/17/25
06:59 06:59 06:59
Intake Total 3252.9 / 3480.6 3199.8 / 3317.5 1797.0 / 1797.0
Output Total 2260 / 2435 5730 / 5830 857 / 857
Balance 992.9 / 1045.6 -2530.2 / -2512.5 940.0 / 940.0
SaO2 [CPAP] 99
SaO2 [ASV] 100
SaO2 [A/C] 99
SaO2 100
Nasal Cannula flow liters per 2
minute
Physical Exam
General: Comfortable and Other
HEENT: Normocephalic and Other (ETT in place)
Cardiovascular: S1-S2 and Peripheral Edema (bilateral upper and lower extremities)
Respiratory: Wheeze (negative), Crackles (n), Rhonchi (Scattered), Non-Labored Respirations, Stridor (negative) and ET Tube (Mechanical breath sounds heard bilaterally)
GI: Soft, Non Distended (Abdominal binder in place), NG Tube and Other (KIKI drain, mild serosanguineous fluid)
Neurology: No Motor Deficits (Spontaneously moving extremities, arousable) and Other (Sedated, but arousable)
Skin: Warm, Dry, Cyanosis (negative) and Rash (n)
Labs/Micro/Reports
Lab Data
02/16/25 04:58
02/16/25 04:58
Laboratory Results
02/16/25 02/16/25
:58 08:36
APTT 62.2 H 95.7 H
pH 7.41
pCO2 45
pO2 138 H
HCO3 28.5 H
O2 Delivery Level
Microbiology
02/11/25 13:11 Blood/Venous Blood Culture - Final
No Growth - Final Report
02/11/25 15:30 Other-Please specify - Other Anaerobic Culture - Preliminary
Culture pending. Anaerobic cultures are examined after 3
days incubation. Additional information to follow.
02/14/25 13:46 Tracheal Aspirate Respiratory Culture - Final
Usual Respiratory Shireen
02/14/25 13:46 Tracheal Aspirate Gram Stain - Final
02/11/25 15:30 Abdomen Wound Culture - Preliminary
Enterococcus faecium
02/11/25 15:30 Abdomen Gram Stain - Preliminary
[2025-02-16 17:54] LABS: Glucose - Point of Care 154 mg/dl (70-99)
[2025-02-16] MEDS: LASIX IV (18:06)
--- NOTE | 2025-02-16 19:33 | PTCARENOTE ---
Received pt at 1900. Pt remains Febrile, intubated, alert, able to nod head and follow commands appropriately. Afib on monitor. +1 anasarca. Continuing diuresis. remains on heparin and Amiodarone gtts. #8 ETT 26cm at lip, ASV mv 70%, peep 5, fio2
40%. Pt requiring alot of oral and endotracheal suctioning. Abdomen is soft, tender, with Hypoactive BS. NGT remains low continuous suction. Midline incision dressing CDI, KIKI in place small amount sanguineous output. Wilkerson in place for I&os.
restraints in place. Q2 turns with pillows.
[2025-02-16] MEDS: CORDARONE 518 MG IV (19:54)
[2025-02-16] MEDS: Parenteral Nutrition, Central 1650 IV (20:42)
[2025-02-16] MEDS: PRECEDEX 100 IV (21:45)
[2025-02-16] MEDS: OFIRMEV 100 IV (22:06)
[2025-02-16 23:41] LABS: Glucose - Point of Care 148 mg/dl (70-99)
[2025-02-16 23:47] VITALS: BP 105/75
[2025-02-17] MEDS: LOPRESSOR 7.5 MG IV ×5 (00:16→23:30)
[2025-02-17] MEDS: DILAUDID 0.5 MG IV ×8 (00:16→23:21)
[2025-02-17] MEDS: HEPARIN 25000 UNITS/250 ML IV ×3 (01:51→17:14)
[2025-02-17 03:57] LABS: B.E. 1.7 mmol/L; HCO3 25.6 mmol/L (21-28); PCO2 36 mmHg (35-48); PO2 138 mmHg (83-108); pH 7.46 (7.35-7.45)
[2025-02-17 03:59] LABS: O2 Therapy 40%
[2025-02-17 04:01] LABS: Hematocrit 24.4 % (39.0-52.0); Hemoglobin 7.8 g/dL (13.0-18.0); Mean Corpuscular Hgb 33.1 pg (27.0-31.0); Mean Corpuscular Volume 103.4 fL (80.0-94.0); Mean Platelet Volume 10.6 fL (7.4-10.4); Platelet Count 414 10^3/uL (130-400); Red Blood Cell Count 2.36 10^6/uL (4.70-6.10); White Blood Cell Count 13.7 10^3/uL (4.8-10.8)
[2025-02-17 04:13] LABS: APTT 80.9 Sec (23.4-35.0)
[2025-02-17 04:18] LABS: Blood Urea Nitrogen 45 mg/dl (9-20); Calcium 7.8 mg/dl (8.4-10.2); Carbon Dioxide 28 mmol/L (22-30); Chloride 110 mmol/L (98-107); Estimated Creatinine Clearance 114 ml/min; Glucose 143 mg/dl (70-99); Magnesium 2.1 mg/dl (1.6-2.3); Phosphorus 3.2 mg/dl (2.5-4.5); Potassium 4.1 mmol/L (3.5-5.1); Sodium 141 mmol/L (135-145); eGFR > 60.00
[2025-02-17 04:26] LABS: NT-proBNP 13200 pg/ml
[2025-02-17 05:25] LABS: Glucose - Point of Care 154 mg/dl (70-99)
[2025-02-17] MEDS: NOVOLOG FLEXPEN-MODERATE RESISTANCE 1 UNITS SC ×2 (05:34→11:48)
--- NOTE | 2025-02-17 05:47 | PTCARENOTE ---
Patient continuously alarming on vent, noticeably uncomfortable. Precedex gtt started. Continuing with Dilaudid PRN. Abdomen seems slightly more firm, also beginning to become ecchymotic, brought to circuit tester attention. No further orders at this time.
Hemoglobin 7.8 on AM labs, heparin remains therapeutic. Small amount of drainage from midline incision, wound care complete.
[2025-02-17 06:00] VITALS: BMI 34.4
[2025-02-17] MEDS: VANCOCIN 530 MG IV ×2 (06:00→17:53)
--- NOTE | 2025-02-17 06:49 | W.PN.HOSP.TC ---
Today's Communication/Plan
-
transfuse 1PRBC
agree IV Lasix 40 BID
SAT SBT as per ICU
NGT/NPO/TPN as per CRS
abx as per ID
rate rhythm control as per Cardio
Assessment / Plan
Assessment / Plan
Physical Exam
General: Obese no acute distress
HEENT: Normocephalic, Atraumatic, intubated
Respiratory: Clear to Auscultation bilaterally
Cardiac: Normal S1/S2, irregular irregular rhythm
GI: Soft, distended, incision dressed
Extremities: No Clubbing, No Cyanosis
Neuro: awake alert following commands
59M hx dilated cardiomyopathy, EF 5-10%, afib LV thrombus on AC non-compliant, left lower extremity arterial occlusion due to thromboembolism 07/06 and acute limb ischemia RLE s/p thromboembolectomy 11/06 presented to the ER with abdominal pain and
shortness of breath. 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 Post-op course complicated with
ileus.
A/P:
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
Post-op Ileus
Fever unknown origin possibly infectious vs drug fever
-appreciate vascular, CRS, Dental Director consults
-s/p OR 01/27: thromboembolectomy of SMA, placement ABThera Vac
-s/p OR 01/28: exploratory laparotomy, mesenteric angiography, partial omentectomy, tap block, abdominal closure
-s/p IV Zosyn - completed 7 day course, however fever/leukocytosis persist
-TPN initiated on 02/02
-02/07, CT abdomen and pelvis showed new mild intraperitoneal free air indicating a perforated viscus
-s/p OR 02/07: exploratory laparotomy, small bowel resection, lysis of adhesions, placement of ABThera wound VAC
-Continue NPO, NGT, TPN
-ID eval appreciated micafungin completed, empiric IV zosyn switched to meropenem, later switched to Vancomycin d/t Enterococcus faecium noted in wound culture
-cont IV tylenol prn, ice packs prn
-wean Levophed as tolerated
-Returned to OR with CRS 02/11/2025 exploratory lap, small bowel anastomosis, abd wall closure, bilateral cutaneous advancement flaps,repeat wound culture results pending
-02/13/25 developed increased abd distension firmness w/ associate drop in hgb overnight, CRS eval appreciated 200-300 mL of dark sanguinous blood expressed from midline wound likely subcutaneous bleed, abd binder applied and hep gtt briefly held
since resumed
-Trend fever and white count
Anemia
Acute blood Loss anemia 2/2 surgical procedures, subcutaneous bleed as above
Iron Studies appreciated Anemia of Chronic Disease
B12 Folate non-deficiency
02/17 Hgb drifted down to 7.3 responded well to 1PRBC transfusion, increased to 8.3
Hypoxic Respiratory Failure status post intubation
-Appreciate heavy duty diesel mechanic input, continue vent management as per heavy duty diesel mechanic
-failed multiple attempts to wean off ventilator.
-Dental Director Update Note 02.15.25 discussion with family (sister Keyla) appreciated
Hypokalemia
Hypophosphatemia
-monitor and replete as necessary
Toxic metabolic encephalopathy
-Monitor
Permanent AFIB with RVR
Left atrial appendage thrombus
-Status post Cardizem drip
-appreciate Cardiology, continue IV amiodarone drip, IV heparin drip on hold as above
-IV metoprolol held due to hypotension/shock since resumed
-resume Metoprolol when able to take PO
-resume Eliquis when confirm no need for further procedures
Acute on chronic HFrEF (EF 5-10%)
-hold LANDSCAPE ARCHITECT Entresto and Metop XL until patient can take PO meds
-Trend creatinine, trend daily weights
-02/14 ECHO appreciated EF10-15% mod MR TR no significant change from prior ECHO
-IV lasix as per cardio heavy duty diesel mechanic
-BNP significantly increased [id number]
-IV lasix increased to 40 mg BID
Bacteruria
-UA on 02/05/25 with bacteuria
-Was on Rocephin, changed to Zosyn, then meropenem, now on vancomycin as above
Hyperthyroid--new diagnosis last admission?--on methimazole but would hold for now
-repeat TSH here Low but T4 wnl
-cont methimazole hold
-suspect euthyroid-sick syndrome
-repeat TFTs in 1 month
Type 2 diabetes
-well controlled on sliding scale
-cont glycemic control
PAD
Active smoker
smoking cessation counseled
DVT proph - IV heparin drip
Code status - Full Code
Total Critical Care Time__40__ minutes. I was immediately available to the patient and staff. I personally examined, reviewed labs, diagnostic images/reports, interpretations, treatment plans, discussed patient care with other providers, entered
orders as appropriate and documented the medical record.
Anticipated Discharge: > 48 hours
Subjective/Interval History
-
Date of Service: February 17, 2025
Objective Data
-
Labs:
Laboratory Results
02/17/25 02/17/25
03:33 03:51
WBC 13.7 H
Hgb 7.8 L
Hct 24.4 L
Plt Count 414 H
APTT 80.9 H
HCO3 Cancelled 25.6
Sodium 141
Potassium 4.1
Chloride 110 H
Carbon Dioxide 28
BUN 45 H
Creatinine 0.9
Glucose 143 H
Calcium 7.8 L
Vital Signs:
Vital Signs
Temp Pulse Resp BP Pulse Ox
102.5 F H 85 22 126/50 100
02/17/25 03:14 02/17/25 06:15 02/17/25 06:15 02/17/25 06:01 02/17/25 06:15
I&O
02/15/25 02/16/25 02/17/25
06:59 06:59 06:59
Intake Total 3252.9 / 3480.6 3199.8 / 3317.5 3597.7 / 3597.7
Output Total 2260 / 2435 5730 / 5830 3762 / 3762
Balance 992.9 / 1045.6 -2530.2 / -2512.5 -164.3 / -164.3
[2025-02-17] MEDS: LASIX 40 MG IV ×2 (07:23→15:58)
[2025-02-17] MEDS: PROTONIX IV 40 MG IV (07:23)
[2025-02-17] MEDS: NSS (PRESERVATIVE FREE) 10 ML IV (07:23)
[2025-02-17] MEDS: FLOVENT 110 MCG INHALER 4 PUFF INH (07:38)
[2025-02-17] MEDS: DUONEB 3 ML INH (07:38)
--- NOTE | 2025-02-17 07:54 | W.PN.ID1 ---
Date of Service
Date of Service: February 17, 2025
Today's Communication
Continue vancomycin for today
Assessment / Plan
Ongoing fevers
Leukocytosis
Mesenteric ischemia with perforation and necrotic bowel
- s/p washout and primary abdominal closure (02/11/2025)
VDRF
Severely dilated cardiomyopathy with markedly diminished EF
Hx A-fib
Recommendations:
Multiple possible etiologies of fever and leukocytosis, including drug fever, versus ongoing abdominal process.
- Given persistence of fever, drug fever suspected.
Duplex ultrasound positive for left mid brachial vein, although doubt that this is the etiology of the ongoing fever.
Wound culture noted to be positive with Enterococcus (amp resistant)
Continue vancomycin (d#2)
Follow white count and temperature curve. (of note, current temps are 'core', thus are higher than 'oral')
May consider repeat CT A/P this week.
Continue with supportive care. Wean as is possible. Limit medications as is possible.
Patient remains critically ill, vent dependent and in intensive care unit
����������������������������������������������������������
Chief Complaint
-: Fever and Leukocytosis
Subjective / Review of Systems
Patient seen and examined. Fevers persist. Patient remains on vent.
Vital Signs / Physical Exam
Vital Signs
Vital Signs
Temp Pulse Resp BP Pulse Ox
102.3 F H 95 22 114/53 100
02/17/25 07:38 02/17/25 07:40 02/17/25 07:40 02/17/25 07:23 02/17/25 07:40
Physical Exam
Constitutional: Acutely Ill and Non-toxic
Oropharyngeal: Other (ET tube in place. NG tube in place.)
Cardiovascular: Regular Rate and S1/S2; Negative S3/S4
Pulmonary: Clear and Other (ET tube to vent.)
Gastrointestinal: Soft, Decreased Bowel Sounds, No Rebound, No Guarding and Other (Abdominal binder in place. )
Genito-Urinary: Wilkerson and Clear Urine
Extremities: Edema (2+ bilateral lower extremity edema); Negative Cyanosis or Erythema
Neurological: Other (Arousable to touch.)
Lines: PICC (LUE midline; RUE PICC line)
Objective Data
Lab Data
Lab Results
02/17/25 03:33
02/17/25 03:33
PT 15.6 Sec (11.4-14.6) H 02/14/25 04:43
INR 1.19 02/14/25 04:43
APTT 80.9 Sec (23.4-35.0) H 02/17/25 03:33
Estimated Creat Clear 114 ml/min 02/17/25 03:33
Lactic Acid 1.1 mmol/L (0.7-2.0) 02/09/25 04:00
Total Bilirubin 6.5 mg/dl (0.2-1.3) H 02/12/25 03:51
AST 36 U/L (17-59) 02/12/25 03:51
ALT 35 U/L (0-50) 02/12/25 03:51
Alkaline Phosphatase 108 U/L (38-126) 02/12/25 03:51
Most recent labs reviewed.
Micro Results:
02/11/25 13:11 Blood Culture - Final
Blood/Venous No Growth - Final Report
02/11/25 15:30 Anaerobic Culture - Preliminary
Other-Please specify - Other Culture pending. Anaerobic cultures are examined after 3
days incubation. Additional information to follow.
02/14/25 13:46 Respiratory Culture - Final
Tracheal Aspirate Usual Respiratory Shireen
Gram Stain - Final
02/11/25 15:30 Wound Culture - Preliminary
Abdomen Enterococcus faecium
Gram Stain - Preliminary
02/07/25 18:36 Blood Culture - Final
Blood/Venous No Growth - Final Report
02/11/25 15:30 Fungal Culture - Preliminary
Other-Please specify - Other Culture in progress.
Positive cultures are reported as soon as detected.
Final report to follow in four to five weeks.
02/11/25 14:22 C. difficile GDH Antigen & Toxins - Final
Feces/Stool Negative for toxigenic C.difficile
02/11/25 10:41 Influenza Types A & B (SHERLYN) - Final
Nasal Swab Negative for Influenza A & B, NAAT
Negative results must be combined with clinical observations
and patient history.
Nucleic Acid Amplification test (NAAT)performed on the
TSB platform.
02/09/25 09:21 Urine Culture - Final
Urine NO GROWTH
01/27/25 12:14 Blood Culture - Final
Blood/Venous No Growth - Final Report
01/27/25 21:32 MRSA Screen - Final
Nose No Methicillin Resistant Staphylococcus aureus isolated.
Wound/abscess/other Cult Preliminary 02/16/25-907
Moderate Enterococcus faecium
Moderate Diptheroids
Organism 1 Enterococcus faecium
1. Enterococcus faecium
M.I.C. RX
--------- ---
Ampicillin >8 R
Daptomycin >4 R
Gentamicin Synergy Screen <=500 S
Linezolid 2 S
Vancomycin 1 S
Imaging:
02/13/2025 CXR (portable): Mild haziness in the right medial lower lung field. Poor visualization of the medial left hemidiaphragm. No pleural effusion or pneumothorax noted.
02/11/2025 CXR (portable): Hazy opacification along both lower lungs without significant change. No significant pleural effusion is noted.
Care Review
Plan reviewed with: Nurse and Physician (Critical Care)
[2025-02-17] MEDS: PRECEDEX 100 IV ×2 (09:18→21:16)
--- NOTE | 2025-02-17 10:39 | PTCARENOTE ---
Rec'd care of patient at 0700. Patient alert. Nodding head appropriately. Following commands. MAEx4. Normal strength in b/l UE. Weakness in b/l LE. Precedex drip initiated overnight. Patient drowsy at rest. Anxious and agitated with
stimulation/care. Patient pulling on restraints and trying to pull out ett during turns/repositioning. Precedex drip titrated up for RASS. Pain treated with PRN Dilaudid. Afib on tele monitor. +1 anasarca. Weak, palpable pulses. #8 ett @ 26 cm. ASV
70% mv, 40% fio2, PEEP 5. Lung sounds diminished throughout. Occasional cough. Secretions decreased from yesterday. Hypo BS. Abdomen round/soft/tender. NGT to suction. Green output. Patient incontinent of large amount of liquid, brown stool. While
cleaning patient up, patient continuing to have incontinence. FMS placed. Sample sent to r/o cdiff- negative. Midline incision dressing changed following complete bed bath. Small amount of serosanguineous drainage. Approximated, bry intact. KIKI
drain with scant sanguineous drainage. Dressing changed as well. Wilkerson for critical I/O. Output increased s/p 40mg IV Lasix. TPN and Amio drips infusing through RDL PICC. Heparin and Precedex infusing through left midline. Fevers persist. Per ID,
drug fevers. Plan discussed with Route Supervisor and Hospitalist. Repeat H&H ordered for 1200.
--- NOTE | 2025-02-17 10:43 | PHA.VAN.FU ---
Vancomycin Assessment / Plan
- Assessment
Renal Function: Stable
WBC's are: Trending Down
In the past 24 hrs, patient has been: Febrile (Tmax - 102.5 02/17/25 03:14)
- Dosing Plan
Continue: vancomycin 1500 mg q12h
- Monitoring Plan
Peak Level: 02/17/25 2100 - after 4th dose
Trough Level: 02/18/25 0530
- Follow Up
Pharmacy will continue to follow.
Vancomycin Follow UP
- -
Patient Age: 59
Patient Sex: Male
Vancomycin Day #: 2
Indication: Gi / Intra-Abdominal
Requesting Provider: Irina Bruno
Height / Weight:
Height 6 ft
Actual Weight 115 kg
IBW in k.6
Adjusted BW in k.4 (BMI 34.2)
Pertinent Past Medical History: mesenteric ischemia w/perf; intubated
- Vital Signs / Lab Results
Temp Pulse Resp BP Pulse Ox
102.3 F H 84 21 114/53 100
02/17/25 07:38 02/17/25 10:00 02/17/25 10:00 02/17/25 07:23 02/17/25 10:00
Lab Results - Hematology
02/14/25 02/15/25 02/16/25
17:17 03:48 04:58
WBC 18.2 H 18.9 H 21.9 H
02/17/25
03:33
WBC 13.7 H
Lab Results - Chemistry
02/15/25 02/16/25 02/17/25
03:48 04:58 03:33
BUN 46 H 46 H 45 H
Creatinine 0.8 0.9 0.9
Estimated Creat Clear > 125 116 114
Microbiology Results
02/17/25 09:06 C. difficile GDH Antigen & Toxins - Final
Feces/Stool Negative for toxigenic C.difficile
02/11/25 15:30 Wound Culture - Final
Abdomen Enterococcus faecium
Gram Stain - Final
02/11/25 15:30 Anaerobic Culture - Final
Other-Please specify - Other NO ANAEROBES ISOLATED
02/11/25 13:11 Blood Culture - Final
Blood/Venous No Growth - Final Report
02/14/25 13:46 Respiratory Culture - Final
Tracheal Aspirate Usual Respiratory Shireen
Gram Stain - Final
[2025-02-17 11:00] VITALS: BP 108/43
--- NOTE | 2025-02-17 11:20 | W.PN.CARDCBS ---
Today's Communication / Plan
-
Stable cardiology status with rate control of A-fib
Continue IV amiodarone and IV Lopressor
Continue IV heparin while unable to take p.o.'s
Overall prognosis remains poor
Discussed with nurse
Impression / Plan
-
.
Primary Psychology Teacher: Dr. Pickett
Primary EP: Dr Solorio
PCP: Dr Peñaloza
HPI: Patient with history of cardioembolic occlusion of left common femoral artery 06/2023, right iliac artery occlusion status post thromboembolectomy 10/29/2024. During that time was also noted to be in persistent rapid A-fib initially discovered
07/2023 with history of noncompliance with medications. Also with known low EF suspected tachycardia mediated status post cath 05/2024 with nonobstructive CAD.
He presented back to the ED 11/2024 due to generalized malaise and was noted to have a seroma of his right groin s/p I/D and wound vac. He was also found to be in decompensated heart failure with reduced ejection fraction and have atrial
fibrillation with rapid ventricular rates. Plan for LUIS ENRIQUE cardioversion but LUIS ENRIQUE 01/04/2025 showed massive occlusive thrombus in left atrial appendage. Most recently, presented on 01/27/2025 with acute onset abdominal pain found to have acute
mesenteric ischemia with SMA occlusion, went to OR for exploratory laparotomy and SMA thrombectomy. Postop shock with metabolic/lactic acidosis, on Levophed and intubated. Cardiology consulted for management of atrial fibrillation and heart failure
Impression:
Acute mesenteric ischemia with SMA occlusion, status post exploratory lap and SMA thrombectomy 01/27/2025 and redo OR 02/07/2025 and OR 02/08/2025
Acute hypoxemic respiratory failure
Shock with metabolic/lactic acidosis
Right groin seroma
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
Persistent atrial fibrillation, first discovered July 2023
Non-CO myocardial injury
Chronic OAC with eliquis
Left atrial appendage thrombus by LUIS ENRIQUE 12/2024
Chronic HFrEF
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
NSVT
Hyperthyroidism
Noncompliance
Depression
History of ETOH and tobacco abuse
Obesity
Ventilator dependent respiratory failure
ECHO 04/04/2024: EF 10 to 15%, severe global hypokinesis, mild MR, trace TR, PAP 30 to 33 mmHg
Cardiac catheterization 05/22/2024: Nonobstructive coronary disease with normal to mildly elevated right and left-sided filling pressures with normal cardiac output
Echocardiogram 10/30/2024: Severely dilated left ventricle, severely reduced LV systolic function, global hypokinesis with ejection fraction of 5-10%, moderate to severe eccentric TR with PA pressure of 30-35 mmHg, small pericardial effusion.
LUIS ENRIQUE 01/04/2025: LVEF 10 to 15%, definite massive occlusive thrombus in left atrial appendage, mild MR, moderate to severe TR
Plan:
He continues to remain on the ventilator
Tolerating heparin with relatively stable hemoglobin of 7.8 on 02/17/2025
Continue IV heparin until able to take Eliquis given multiple embolic events in the past
Continue IV amiodarone and Lopressor as unable to take p.o. Heart rate control reasonable at present seems to respond to IV Lopressor per neuro change
Lasix currently on hold and weight is relatively stable between 252 pounds and 263 pounds but may not be accurate as it is bed scale
Continue meropenem and micafungin for infection.
His severe LV dysfunction is likely tachycardia mediated and related to noncompliance.
Long-term plan would likely be to repeat transesophageal echo (given large occlusive thrombus in left atrial appendage) if he recovers from abdominal procedures and then make a plan regarding risk of ablation.
However long-term prognosis is likely poor and hospice discussions likely to occur
Progress Note - Psychology Teacher
Subjective
Date of Service: February 17, 2025
On ventilator awake but not responding to questions
Objective
Labs:
02/17/25 03:33
Labs
Hgb 7.8 g/dL (13.0-18.0) L 02/17/25 03:33
Hct 24.4 % (39.0-52.0) L 02/17/25 03:33
Plt Count 414 10^3/uL (130-400) H 02/17/25 03:33
PT 15.6 Sec (11.4-14.6) H 02/14/25 04:43
INR 1.19 02/14/25 04:43
APTT 80.9 Sec (23.4-35.0) H 02/17/25 03:33
Sodium 141 mmol/L (135-145) 02/17/25 03:33
Potassium 4.1 mmol/L (3.5-5.1) 02/17/25 03:33
BUN 45 mg/dl (9-20) H 02/17/25 03:33
Creatinine 0.9 mg/dL (0.7-1.3) 02/17/25 03:33
Glucose 143 mg/dl (70-99) H 02/17/25 03:33
Vital Signs and I&O:
Vital Signs
Temp Pulse Resp BP Pulse Ox
101.9 F H 76 24 114/53 100
02/17/25 11:03 02/17/25 11:00 02/17/25 11:00 02/17/25 07:23 02/17/25 11:00
Vital Signs
Temp Pulse Resp BP Pulse Ox
101.9 F H 76 24 114/53 100
02/17/25 11:03 02/17/25 11:00 02/17/25 11:00 02/17/25 07:23 02/17/25 11:00
Intake & Output
02/15/25 02/16/25 02/17/25 02/18/25
06:59 06:59 06:59 06:59
Intake Total 3252.9 / 3480.6 3199.8 / 3317.5 3597.7 / 4251.1 1188.6 / 1188.6
Output Total 2260 / 2435 5730 / 5830 3762 / 3822 1400 / 1400
Balance 992.9 / 1045.6 -2530.2 / -2512.5 -164.3 / 429.1 -211.4 / -211.4
Physical Exam
Physical Exam
General: Awake on the ventilator
Neck: Supple, no JVD, HJR, carotids +2 B/L, no bruits bilaterally.
Heart: Non displaced PMI, irregular, no murmurs, No S3, S4, no rubs.
Lungs: Scattered rhonchi
Extremities: No clubbing, cyanosis or edema bilaterally.
Neuro: Awake on the vent
[2025-02-17 11:50] LABS: Hematocrit 22.8 % (39.0-52.0); Hemoglobin 7.3 g/dL (13.0-18.0)
[2025-02-17 11:50] LABS: Glucose - Point of Care 158 mg/dl (70-99)
--- NOTE | 2025-02-17 12:11 | PTCARENOTE ---
Repeat H&H drawn and sent. Hgb-7.3, Hct- 22.8. Stool tested for occult blood- positive. Colorectal surgeon at bedside during testing and aware. No other changes. Patient resting comfortably. RASS 0 to -1. Vitals stable.
--- NOTE | 2025-02-17 12:39 | PTCARENOTE ---
Hospitalist notified of H&H results. Order to transfuse 1 unit PRBCs placed. Repeat type and screen sent.
[2025-02-17 13:33] VITALS: BP 125/50
--- NOTE | 2025-02-17 13:44 | PTCARENOTE ---
1 unit PRBCs transfusing.
[2025-02-17 13:50] VITALS: BP 124/49
--- NOTE | 2025-02-17 15:16 | W.PN.INTV ---
Today's Communication / Plan
Recommendations
- Increase Lasix to 40 mg IV twice daily
- Chest x-ray and blood gas in a.m.
- SAT SBT once patient is near euvolemia
Assessment
-
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
thromboembolic occlusion of the right iliac system s/p thromboembolectomy of the right iliac system + thromboembolectomy of the right SFA, popliteal artery and profundo-femoral artery (10/2024) who presents with abdominal pain and SOB. He was in
his usual state of health [employer] when he developed sudden periumbilical abdominal pain without nausea or vomiting. In the ER he was afebrile to 98.2 �F, pulse rate 135, breathing at 12 breaths/min, BP 162/110 and saturating 97% on room air. Initial
labs showed potassium 2.9, lactate 5.2, T. bili 2.1, and proBNP 4580. CTA A/P showed thrombosis of the SMA with small bilateral pleural effusions and groundglass attenuation in the bases of the lungs. He was given 40 mg IV Lasix in the ER,
Dilaudid 0.5 mg, potassium repletion, 1 L NS 0.9% and Zofran. Vascular surgery was consulted and given his significant abdominal pain of acute onset he was consented for the OR. He underwent exploratory laparotomy with thromboembolectomy of
superior mesenteric artery and placement of an AbThera VAC. Postoperatively he returned to the ICU intubated, and [employer] services consulted for additional management/recommendations. Patient was extubated and improved, and subsequently
downgraded to the IMU on 01/31. He was downgraded to telemetry on 02/04 where he has been managed. Unfortunately on 02/05 he developed a small bowel obstruction. On 02/07, repeat CT A/P showed free air in the abdomen indicating a perforated viscus.
He went to the OR for an ex lap with small bowel resection and placement of an ABThera wound VAC, and is now transferred back to the ICU intubated.
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
Assessment and plan:
#1. 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
- Patient to OR on 02/08/2025 for an ex lap with abdominal washout and mesenteric angiography (no cultures sent)
- Patient to OR again 02/11 for abdominal washout and wound closure, (culture sent positive Enterococcus)
- Postoperative management as per colorectal surgery
- Pain control. Unfortunately requiring fentanyl boluses as needed which during wean he becomes more apneic. Will try Dilaudid when closer to wean today
- Continue NGT on low continuous wall suction per surgery. NG tube drainage is decreasing
- Abdominal distention improved, abdominal binder in place. Hematoma evacuated per surgery at the bedside 4/2 am. Heparin drip discontinued 4/2 am, resumed per surgery/cardiology 02/14. Hemoglobin remained stable
- Was on heparin drip as per colorectal surgery given his SMA occlusion. Resumed 02/14
- Follow hemoglobin, maintain active type and screen
#2. Ventilator dependent respiratory failure
- Intubated since 02/08
- Continue with mechanical ventilation with daily SAT/SBT as able
- Chest x-ray 02/15 with increased right lower lobe infiltrate, likely combination of plugging, atelectasis. Sputum culture pending
- Maintained on ASV 70% since 02/14. Limiting factor during prior wean was tachycardia in the setting of EF 10 to 15%, rapid shallow breathing
- Aspiration precautions
-Patient quite volume overloaded, Lasix dose increased to 40 mg IV twice daily, 02/17
#3. Circulatory shock
- Likely related to sedation with septic shock in the setting of A-fib with RVR and HFrEF, EF 10% on repeat echocardiogram
- Remains off pressors
- Trend WBC and monitor for fevers
- Also CT A/P from 02/07/2025 still shows circumferential wall thickening in the distal small bowel suggestive of enteritis
- Patient now on meropenem. Zosyn discontinued per ID, micafungin discontinued per ID
- Follow cultures, follow fever curve, follow leukocytosis
- Rev LUIS ENRIQUE from Dec 2024, large thrombus. Repeat echo 02/14 reveals no obvious thrombus, EF 10%
- Has not required pressors over the last week
#4. Acute mesenteric ischemia with SMA occlusion, likely embolic, s/p ex lap with SMA embolectomy (on 01/27/2025), followed by delayed abdominal wall closure with ex lap and partial omentectomy (on 01/28/2025)
- heparin had to be discontinued due to abdominal hematoma, resumed 02/14
- NG to suction as stated above, await return of bowel function
- Reviewed oncology evaluation few weeks ago, hypercoagulable workup negative at that time. Fibrinogen normal, no evidence of DIC presently
#5. Acute on Chronic heart failure with reduced ejection fraction, LVEF 10 to 15% with history of occlusive thrombus in MELISSA in the past
-Likely the source of embolic event to SMA
-Monitor input and output closely
-Increase lasix to 40 mg IV BID
-Repeat echo 02/14 with no obvious thrombus although poor study noted. Her EF remains 10%
#6. Atrial fibrillation with rapid ventricular rate
- Continue amiodarone gtt
- Now off cardizem gtt
- Resumed IV Lopressor
- Prior wean with limited by tachycardia, heart rate in the 150s with rapid shallow breathing. Hopefully this is improved upon resuming beta-renee therapy which she was on as outpatient
- Heparin drip for anticoagulation has been held due to abdominal hematoma, resumed 02/14
- LUIS ENRIQUE 01/04/2025 with EF 10 to 15%, normal RV size and function, moderate to severe TR, large occlusive thrombus in left atrial appendage. Repeat echo 02/14 with resolution of thrombus, EF remains 10%
#7. Hyperglycemia
- HbA1c 6.3 on 01/27/2025
- Started insulin drip on 02/08 given he is critically ill with hyperglycemia - this is now weaned off; will resume ISS q6hr
- Remains on TPN
#8. Abnormal urinalysis concerning for UTI
- UA on 02/05/2025 was positive for nitrites, with +1 leukocyte esterase and 6�10 urine WBC
- Ceftriaxone changed to Zosyn on 02/07/2025 in setting of small bowel perforation with sepsis
-Now on meropenem per ID. Follow cultures
Gi Prophylaxis: PPI IV
DVT ppx: Heparin gtt resumed 02/14
Continue ICU level care for this critically ill patient.
Critical care statement: A total of 32 minutes of critical care time was provided for this patient today. This includes management of unstable vital signs, evaluation of the patient at bedside, reviewing the patient's pertinent medical records
including radiographs, microbiology, laboratory evaluations, and discussion with primary team, consultants, pharmacy, nutrition, physical therapy, case management, charge nurse, critical care nursing, and respiratory therapy.
Data:
CTA Abd/Pelvis w/wo IV contrast 01/27/2025:
Thrombosis of superior mesenteric artery branches, new since prior examination.
No bowel thickening or pneumatosis to suggest bowel ischemia.
No acute inflammatory changes within the abdomen or pelvis.
Mild diverticulosis without acute diverticulitis.
Stable fatty infiltration of liver. Stable low-attenuation right adrenal mass 1.3 cm, most consistent with benign adenoma.
Hazy attenuation in the dependent lung bases. Groundglass attenuation. Small bilateral pleural effusions. Possible mild pulmonary edema and/or atelectasis.
CT A/P w IV and oral contrast 02/07/2025:
New mild intraperitoneal free air indicating a perforated viscus. The exact location is difficult to discern, but distribution of free air greatest in the anterior mid to upper abdomen near the persistently dilated proximal small bowel loops that
again contain air-fluid levels. Long segment distal small bowel smaller in caliber with circumferential wall thickening suggestive of an enteritis.
Subjective Dataa
Subjective Data
Date of Service:
Date of Service: February 17, 2025
Chief Complaint: [employer] Follow Up
Subjective:
Patient currently intubated, mechanically ventilated. He wakes up briefly makes eye contact.
Review of Systems
General: Unobtainable - Sedation
Objective Data
Data Reviewed
Vital Signs / I&O / Oxygen:
Vital Signs
Temp Pulse Resp BP Pulse Ox
102.0 F H 92 24 124/49 100
02/17/25 13:50 02/17/25 14:45 02/17/25 14:45 02/17/25 13:50 02/17/25 14:45
Intake and Output
02/16/25 02/17/25 02/18/25
06:59 06:59 06:59
Intake Total 3199.8 / 3317.5 3597.7 / 4251.1 1712.2 / 1712.2
Output Total 5730 / 5830 3762 / 3822 1865 / 1865
Balance -2530.2 / -2512.5 -164.3 / 429.1 -152.8 / -152.8
SaO2 [CPAP] 99
SaO2 [ASV] 100
SaO2 [A/C] 99
SaO2 100
Nasal Cannula flow liters per 2
minute
Physical Exam
General: Comfortable and Other
HEENT: Normocephalic and Other (ETT in place)
Cardiovascular: S1-S2 and Peripheral Edema (bilateral upper and lower extremities)
Respiratory: Wheeze (negative), Crackles (n), Rhonchi (Scattered), Non-Labored Respirations, Stridor (negative) and ET Tube (Mechanical breath sounds heard bilaterally)
GI: Soft, Non Distended (Abdominal binder in place), NG Tube and Other (KIKI drain, mild serosanguineous fluid)
Neurology: No Motor Deficits (Spontaneously moving extremities, arousable) and Other (Sedated, but arousable)
Skin: Warm, Dry, Cyanosis (negative) and Rash (n)
Labs/Micro/Reports
Lab Data
02/17/25 11:42
02/17/25 03:33
Laboratory Results
02/17/25 02/17/25
03:33 03:51
APTT 80.9 H
pH Cancelled 7.46 H
pCO2 Cancelled 36
pO2 Cancelled 138 H
HCO3 Cancelled 25.6
O2 Delivery Level Cancelled 40%
Microbiology
02/17/25 09:06 Feces/Stool C. difficile GDH Antigen & Toxins - Final
Negative for toxigenic C.difficile
02/11/25 15:30 Abdomen Wound Culture - Final
Enterococcus faecium
02/11/25 15:30 Abdomen Gram Stain - Final
02/11/25 15:30 Other-Please specify - Other Anaerobic Culture - Final
NO ANAEROBES ISOLATED
02/11/25 13:11 Blood/Venous Blood Culture - Final
No Growth - Final Report
02/14/25 13:46 Tracheal Aspirate Respiratory Culture - Final
Usual Respiratory Shireen
02/14/25 13:46 Tracheal Aspirate Gram Stain - Final
--- NOTE | 2025-02-17 15:17 | PTCARENOTE ---
Patient's vent alarming. Upon assessment, patient coughing up a large amount of yellow secretions. Oral suctioning and hygiene provided. Vitals stable. Patient resting calmly. RASS 0. Mouthing words and using hands to communicate with RN. Afib on
tele. Rate controlled. +1 anasarca. Vent settings and lung sounds unchanged. FMS and Wilkerson remain in place. PRBCs transfusing.
--- NOTE | 2025-02-17 15:44 | W.PN.CRS1 ---
Today's Communication / Plan
-
NGT/NPO/TPN
Assessment/Plan
-
59-year-old male with PMH of A-fib (on Eliquis), hypothyroidism, PVD (s/p LLE thrombectomy 2022, RLE thrombectomy 2023) who presented with acute abdominal pain and found to have SMA occlusion
01/27/2025- Ex lap, SMA embolectomy
01/28/2025- Exploratory laparotomy, mesenteric angiography, partial omentectomy, tap block, abdominal closure
02/07/2025- Exploratory laparotomy, small bowel resection, lysis of adhesions, placement of ABThera wound VAC
02/08/2025- Exploratory laparotomy, abdominal washout, mesenteric angiography with spy, placement of ABThera VAC
02/11/2025- Exploratory laparotomy, small bowel anastomosis, abdominal wall closure, bilateral cutaneous advancement flaps
Febrile, off pressors, no further tachycardia
Vent weaning as per ICU team
WBC trending down
H/H stable
Passing large dk green liquid stools, no elizabeth blood. Low output bilious drainage noted
--Continue NGT to suction
--Continue TPN for nutritional support
--ABX as per ID
--Local wound care
--C/W KIKI
--On PPI for GI ppx
--Continued on heparin gtt
� Medical management as per ICU/hospitalist teams
Subjective Data
Procedure
01/27/2025- Ex lap, SMA embolectomy
01/28/2025- Exploratory laparotomy, mesenteric angiography, partial omentectomy, tap block, abdominal closure
02/07/2025- Exploratory laparotomy, small bowel resection, lysis of adhesions, placement of ABThera wound VAC
02/08/2025- Exploratory laparotomy, abdominal washout, mesenteric angiography with spy, placement of ABThera VAC
02/11/2025- exlap, small bowel anastomosis, abdominal wall closure, bilateral cutaneous advancement flaps
Subjective Data
Date of Service: February 17, 2025
Patient seen and examined at bedside with Dr. Woodard. D/w primary nurse, patient passing large liquid bm's now. Appears comfortable.
Objective Data
-
Vital Signs
Temp Pulse Resp BP Pulse Ox
102.0 F H 92 24 124/49 100
02/17/25 13:50 02/17/25 14:45 02/17/25 14:45 02/17/25 13:50 02/17/25 15:33
Intake & Output
02/16/25 02/17/25 02/18/25
06:59 06:59 06:59
Intake Total 3199.8 / 3317.5 3597.7 / 4251.1 1712.2 / 1712.2
Output Total 5730 / 5830 3762 / 3822 1865 / 1865
Balance -2530.2 / -2512.5 -164.3 / 429.1 -152.8 / -152.8
Intake:
Oral fluids 0 / 0 0 / 0 0 / 0
IV fluids (Total) 1193.8 / 1242.5 1231.7 / 1286.1 501.2 / 501.2
Amiodarone 400.8 / 417.5 400.8 / 417.5 150.3 / 150.3
Fentanyl / 25
Heparin 768 / 800 768 / 800 288 / 288
Precedx 62.9 / 68.6 62.9 / 62.9
IV piggybacks 200 / 200 530 / 1060 530 / 530
TPN/PPN 1656 / 1725 1656 / 1725 621 / 621
Amount instilled into GI Tube ( 150 / 150 180 / 180 60 / 60
Total)
[place] Sump 150 / 150 180 / 180 60 / 60
Blood Product Amount Infused ( 0 / 0
mL)
Packed Rbc Leukoreduced Unit 0 / 0
[id number]
Output:
Drain Output (Total) 40 / 40 20 / 20
[place] 40 / 40 20 / 20
Gastrointestinal tube output ( 200 / 200 50 / 50
Total)
Brazos Sump 200 / 200 50 / 50
Urine, Wilkerson 3180 / 3011 3692 / 3752 1865 / 1865
Other:
Number of unmeasured liquid
stools
Rectum 3
Lab Results
02/17/25 11:42
02/17/25 03:33
Physical Exam
-
General: Other (Intubated)
Chest: Other (VDRF)
Abdomen: Soft, Non Distended (mild), Tender (expected to midline) and Other (NGT wtih bilious outputs)
Skin: Warm and Dry
Incision: Serous Drainage (middle aspect of midline, bry intact, KIKI with SSF)
[2025-02-17 16:29] VITALS: BP 155/60
--- NOTE | 2025-02-17 16:30 | PTCARENOTE ---
Blood transfusion complete. VSS. 1600 dose of Lasix administered.
[2025-02-17] MEDS: NOVOLOG FLEXPEN-MODERATE RESISTANCE SC ×2 (18:07→23:35)
[2025-02-17 18:08] LABS: Glucose - Point of Care 140 mg/dl (70-99)
[2025-02-17 18:46] LABS: Hematocrit 25.4 % (39.0-52.0); Hemoglobin 8.3 g/dL (13.0-18.0)
--- NOTE | 2025-02-17 20:00 | PTCARENOTE ---
assessment counselor, pt opens eyes to voice, DRAKE, +simple commands. AFib HR 80s. continues to be febrile. LA IV x 2, LUE Midline, RUE DL PICC- WNL- precedex, heparin, amio, TPN infusing per work list. L rad AL leveled/zeroed. intub, Sat 100% on Fi02 40%-
strong Prod cough, tolerating. abd round, hypo BS, RAJINDER drsg CDI- KIKI w/minimal sang drainage, abd binder in place. L NGT flushed, minimal bilious output. Wilkerson draining adequate amt nicole urine. FMS WNL. mouth care, turned, repositioned, skin care,
Wilkerson care. will monitor.
[2025-02-17] MEDS: Parenteral Nutrition, Central 1650 IV (20:05)
[2025-02-17 21:45] LABS: Vancomycin Peak 29.7 ug/ml (18-26)
--- NOTE | 2025-02-17 23:30 | PTCARENOTE ---
Reassessed, pt nods head 'yes' when asked if having pain, prn dilaudid per MAR. no further changes in assessment.
[2025-02-17 23:45] LABS: Glucose - Point of Care 144 mg/dl (70-99)
[2025-02-18] VITALS (14 sets, daily range): BP systolic 111–155; BP diastolic 61–105; PULSE 2–82; BMI 34.3
[2025-02-18] MEDS: HEPARIN 25000 UNITS/250 ML IV ×3 (01:02→17:27)
[2025-02-18] MEDS: DILAUDID 0.5 MG IV ×4 (01:07→21:16)
[2025-02-18] MEDS: CORDARONE 518 MG IV (01:48)
--- NOTE | 2025-02-18 04:00 | PTCARENOTE ---
no changes in assessment.
[2025-02-18 04:03] LABS: Hematocrit 25.2 % (39.0-52.0); Mean Corp Hgb Conc. 31.7 g/dL (33.0-37.0); Mean Corpuscular Hgb 32.4 pg (27.0-31.0); Mean Platelet Volume 10.7 fL (7.4-10.4); Platelet Count 378 10^3/uL (130-400); Red Blood Cell Count 2.47 10^6/uL (4.70-6.10); Red Cell Dist. Width 18.7 % (11.5-14.5); White Blood Cell Count 12.2 10^3/uL (4.8-10.8)
[2025-02-18 04:13] LABS: APTT 116.7 Sec (23.4-35.0)
[2025-02-18 04:30] LABS: Albumin 1.8 g/dl (3.5-5.0); Carbon Dioxide 29 mmol/L (22-30); Estimated Creatinine Clearance 114 ml/min; eGFR > 60.00
[2025-02-18 05:06] LABS: ALT (SGPT) 77 U/L (0-50); AST (SGOT) 55 U/L (17-59); Alkaline Phosphatase 131 U/L (38-126); Blood Urea Nitrogen 41 mg/dl (9-20); Chloride 108 mmol/L (98-107); Glucose 151 mg/dl (70-99); Phosphorus 3.2 mg/dl (2.5-4.5); Potassium 3.2 mmol/L (3.5-5.1); Sodium 143 mmol/L (135-145); Total Bilirubin 4.5 mg/dl (0.2-1.3); Triglycerides 177 mg/dl (10-149)
[2025-02-18 05:28] LABS: Glucose - Point of Care 141 mg/dl (70-99)
[2025-02-18] MEDS: NOVOLOG FLEXPEN-MODERATE RESISTANCE SC ×2 (05:34→17:48)
[2025-02-18] MEDS: VANCOCIN 530 MG IV (05:47)
[2025-02-18] MEDS: LOPRESSOR 7.5 MG IV ×3 (05:48→17:47)
[2025-02-18] MEDS: PRECEDEX 100 IV (05:48)
[2025-02-18] MEDS: KCL 270 MEQ IV (05:55)
--- NOTE | 2025-02-18 07:08 | W.PN.INTV ---
Today's Communication / Plan
Recommendations
Tolerating SBT this AM, extubate planning with BIPAP if needed
Wean precedex to off, likely contributing to fevers, ID following, remains on abx
TPN and NGT maintained, CRS following for eventual PO advancement
Cardiomyopathy noted, on lasix BID, cards following
[facility] prognosis poor given history of ETOH use/noncompliance
PT/OT if able to post extubation
Assessment
-
59-year-old male with a past medical history of A-fib, chronic HFrEF, LLE arterial thromboembolism (06/2023), history of acute limb ischemia of RLE with thromboembolic occlusion of the right iliac system s/p thromboembolectomy right Iliac+SFA,
popliteal artery and profundo-femoral artery (10/2024) who presents with abdominal pain and SOB. 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 In the ER, initial labs
showed potassium 2.9, lactate 5.2, T. bili 2.1, and proBNP 4580. CTA A/P showed thrombosis of the SMA with small bilateral pleural effusions and groundglass attenuation in the bases of the lungs. He was given 40 mg IV Lasix in the ER, Dilaudid 0.5
mg, potassium repletion, 1 L NS 0.9% and Zofran. Vascular surgery was consulted and given his significant abdominal pain of acute onset he was consented for the OR. He underwent exploratory laparotomy with thromboembolectomy of superior mesenteric
artery and placement of an AbThera VAC. Postoperatively he returned to the ICU intubated, and Associate Product Manager services consulted for additional management/recommendations. Patient was extubated and improved, and subsequently downgraded to the IMU on
01/31. He was downgraded to telemetry on 02/04 where he has been managed. Unfortunately on 02/05 he developed a small bowel obstruction. On 02/07, repeat CT A/P showed free air in the abdomen indicating a perforated viscus. He went to the OR for an
ex lap with small bowel resection and placement of an ABThera wound VAC, and is now transferred back to the ICU intubated.
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
Ventilator dependent respiratory failure
Circulatory shock
Acute mesenteric ischemia with SMA occlusion
Acute on Chronic heart failure with reduced ejection fraction, LVEF 10 to 15%, proBNP 98272
Atrial fibrillation with rapid ventricular rate
Hyperglycemia
Abnormal urinalysis concerning for UTI
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
Paroxysmal a-fib on Eliquis s/p DH-Cardioversion 04/11/2024
Hyperthyroidism
Chronic HFrEF
Nonischemic cardiomyopathy
PAD s/p Left lower extremity arterial occlusion due to thromboembolism
status post thrombectomy (Dr. Holder) 07/03/2023
s/p right iliac thromboembolectomy 10/29/24
Washout right groin with evacuation/debridement of seromatous collection and fibrinous exudate (Dr. Holder) 11/29/2024
Appendectomy 1986
Plan
Off sedation, precedex on low dose but turned off
Likely cause of persistent low grade fevers
Can use ativan PRN for now until PO access obtained for agitation
RASS goal 0
Likely related to sedation with septic shock in the setting of A-fib with RVR and HFrEF, EF 10% on repeat echocardiogram
Remains off pressors
Continue amiodarone gtt (AFib history)
Now off cardizem gtt
Resumed IV Lopressor
Prior wean with limited by tachycardia, heart rate in the 150s with rapid shallow breathing. Hopefully this is improved upon resuming beta-renee therapy which she was on as outpatient
Heparin drip for anticoagulation has been held due to abdominal hematoma, resumed 02/14
LUIS ENRIQUE 01/04/2025 with EF 10 to 15%, normal RV size and function, moderate to severe TR, large occlusive thrombus in left atrial appendage.
Repeat echo 02/14 with resolution of thrombus, EF remains 10%
Intubated since 02/08
Continue with mechanical ventilation - daily SAT/SBT as able today
Chest x-ray 02/15 with increased right lower lobe infiltrate, likely combination of plugging, atelectasis. Sputum culture pending
Maintained on ASV 70% since 02/14. Limiting factor during prior wean was tachycardia in the setting of EF 10 to 15%, rapid shallow breathing
Aspiration precautions
Patient quite volume overloaded, Lasix dose increased to 40 mg IV twice daily, 02/17
Plan to extubate today if stable on SBT, apneas are likely DARRON/at risk given BMI/cardiac history
Can add BIPAP nightly and PRN post extubation
NGT in place, NPO--continue post extubation
Also CT A/P from 02/07/2025 still shows circumferential wall thickening in the distal small bowel suggestive of enteritis
Patient to OR on 02/08/2025 for an ex lap with abdominal washout and mesenteric angiography (no cultures sent)
Patient to OR again 02/11 for abdominal washout and wound closure, (culture sent positive Enterococcus)
Postoperative management as per colorectal surgery
Continue NGT on low continuous wall suction per surgery. NG tube drainage is decreasing
Abdominal distention improved, abdominal binder in place. Hematoma evacuated per surgery at the bedside 4/2 am.
Heparin drip discontinued 4/2 am, resumed per surgery/cardiology 02/14. Hemoglobin remained stable
- Was on heparin drip as per colorectal surgery given his SMA occlusion. Resumed 02/14
- Follow hemoglobin, maintain active type and screen
Mesenteric ischemia likely embolic, s/p ex lap with SMA embolectomy (on 01/27/2025), followed by delayed abdominal wall closure with ex lap and partial omentectomy (on 01/28/2025)
Heparin had to be discontinued due to abdominal hematoma, resumed 02/14
Reviewed oncology evaluation few weeks ago, hypercoagulable workup negative at that time. Fibrinogen normal, no evidence of DIC presently
Creat stable, baseline
Monitor input and output closely
Increase lasix to 40 mg IV BID
Follow weights/IOs
Patient now on meropenem. Zosyn discontinued per ID, micafungin discontinued per ID
Rev LUIS ENRIQUE from Dec 2024, large thrombus. Repeat echo 02/14 reveals no obvious thrombus, EF 10%
- UA on 02/05/2025 was positive for nitrites, with +1 leukocyte esterase and 6�10 urine WBC
- Ceftriaxone changed to Zosyn on 02/07/2025 in setting of small bowel perforation with sepsis
-Now on meropenem per ID. Follow cultures
Follow cultures, follow fever curve, follow leukocytosis
ID following
Likely with DM 2
- HbA1c 6.3 on 01/27/2025
- Started insulin drip on 02/08 given he is critically ill with hyperglycemia - this is now weaned off; will resume ISS q6hr
- Remains on TPN
Gi Prophylaxis: PPI IV
DVT ppx: Heparin gtt resumed 02/14
Continue ICU level care for this critically ill patient.
Diagnostic Data:
CXR 02/18/25- Support apparatus in position including right-sided PICC line with tip at the level of the cardiac right atrium. Line could be pulled back 3 cm. Cardiomegaly, unchanged.
Right basilar opacification without significant change including differential diagnostic possibilities.
02/13/25- Mild bibasilar opacification probably due to limited inspiration. Pneumonia not excluded. Stable
CTA Abd/Pelvis w/wo IV contrast 01/27/2025: Thrombosis of superior mesenteric artery branches, new since prior examination. No bowel thickening or pneumatosis to suggest bowel ischemia. No acute inflammatory changes within the abdomen or pelvis. Mild
diverticulosis without acute diverticulitis. Stable fatty infiltration of liver. Stable low-attenuation right adrenal mass 1.3 cm, most consistent with benign adenoma. Hazy attenuation in the dependent lung bases. Groundglass attenuation. Small
bilateral pleural effusions. Possible mild pulmonary edema and/or atelectasis.
CT A/P w IV and oral contrast 02/07/2025: New mild intraperitoneal free air indicating a perforated viscus. The exact location is difficult to discern, but distribution of free air greatest in the anterior mid to upper abdomen near the persistently
dilated proximal small bowel loops that again contain air-fluid levels. Long segment distal small bowel smaller in caliber with circumferential wall thickening suggestive of an enteritis.
ECHO 02/14/25- Left ventricle is severely dilated with severely reduced left ventricular systolic function. Severe Global hypokinesis. Left ventricular ejection fraction is 10 to 15% by visual estimate. Normal right ventricular size and function.
Mildly dilated left atrium. Moderate mitral regurgitation. Moderate tricuspid regurgitation. Estimated pulmonary artery pressure of 45 mmHg, assuming a right atrial pressure of 3 mmHg. Compared to the previous echo 01/04/25, there is no significant
change. The left atrial appendage was unable to be visualized on this transthoracic study.
-----
Critical care statement: A total of 42 minutes of critical care time was provided for this patient today. This includes management of unstable vital signs, evaluation of the patient at bedside, reviewing the patient's pertinent medical records
including radiographs, microbiology, laboratory evaluations, and discussion with primary team, consultants, pharmacy, nutrition, physical therapy, case management, charge nurse, critical care nursing, and respiratory therapy.
Subjective Dataa
Subjective Data
Date of Service:
Date of Service: February 18, 2025
Chief Complaint: Associate Product Manager Follow Up
Subjective:
Remains intubated, no events ON
Remains off pressors
Weaning off sedation, fevers ongoing
Apenic at times on vent when asleep
Objective Data
Data Reviewed
Vital Signs / I&O / Oxygen:
Vital Signs
Temp Pulse Resp BP Pulse Ox
101.5 F H 67 18 134/53 100
02/18/25 03:09 02/18/25 06:00 02/18/25 06:00 02/17/25 17:54 02/18/25 06:00
Intake and Output
02/17/25 02/18/25 02/19/25
06:59 06:59 06:59
Intake Total 3597.7 / 4251.1 4599.6 / 4599.6
Output Total 3762 / 3822 5385 / 5385
Balance -164.3 / 429.1 -785.4 / -785.4
SaO2 [CPAP] 99
SaO2 [ASV] 100
SaO2 [A/C] 99
SaO2 100
Nasal Cannula flow liters per 2
minute
Physical Exam
General: Comfortable and Other (NAD, obese)
HEENT: Normocephalic, Anicteric and Other (ETT in place)
Cardiovascular: S1-S2, Regular Rhythm and Peripheral Edema (bilateral upper and lower extremities)
Respiratory: Wheeze (negative), Crackles (n), Rhonchi (Scattered), Non-Labored Respirations, Stridor (negative) and ET Tube (Mechanical breath sounds heard bilaterally)
GI: Soft, Non Distended (Abdominal binder in place), NG Tube and Other (KIKI drain, mild serosanguineous fluid)
Neurology: Awake, Alert and No Motor Deficits (Spontaneously moving extremities, arousable, following commands/able to answer yes no)
Skin: Warm, Dry, Cyanosis (negative) and Rash (n)
Labs/Micro/Reports
Lab Data
02/18/25 03:53
Laboratory Results
02/18/25 02/18/25
03:53 06:00
APTT 116.7 H
pH Cancelled
pCO2 Cancelled
pO2 Cancelled
HCO3 Cancelled
O2 Delivery Level Cancelled
Microbiology
02/17/25 09:06 Feces/Stool C. difficile GDH Antigen & Toxins - Final
Negative for toxigenic C.difficile
02/11/25 15:30 Abdomen Wound Culture - Final
Enterococcus faecium
02/11/25 15:30 Abdomen Gram Stain - Final
02/11/25 15:30 Other-Please specify - Other Anaerobic Culture - Final
NO ANAEROBES ISOLATED
02/11/25 13:11 Blood/Venous Blood Culture - Final
No Growth - Final Report
02/14/25 13:46 Tracheal Aspirate Respiratory Culture - Final
Usual Respiratory Shireen
02/14/25 13:46 Tracheal Aspirate Gram Stain - Final
--- NOTE | 2025-02-18 08:00 | PTCARENOTE ---
Received pt @ change of shift intubated/lightly sedated on Precedex gtt w b/l soft limb/4rail restraints- see flow sheets. Pt. drowsy, opens eyes/blinks spontaneously; follows simple commands; DRAKE. Nod head yes/no approp; nodded head 'no,' to
pain. Afib on monitor. SpO2 99% on vent settings ASV 70%/.40/+5. Auscultated dim/coarse lung sounds throughout. Suctioned for lg amts of thick yellow from ett; copious amts of oral secretions as well; strong cough. Hypoactive BS, abd
round/tender. NPO status maintained. L nare NGT secured @ 70cm to low continuous suction w mod amts of green output. FMS in place draining liquid/brown stool. Thermistor candelaria in place draining nicole urine. Midline abd dressing c/d/i. KIKI drain w
small amt sang drainage. L midline w dex/heparin gtts; R DL PICC w amio gtt and TPN- see flow sheets. #18 L FA and #22 SHOSHANA patent, dressing c/d/i. L rad A-line transduced, calibrated, and monitored; all ports patent and secured; wave form dampened
requiring repositioning. Pt. repositioned per protocol. Safe environment maintained.
[2025-02-18] MEDS: LASIX 40 MG IV ×3 (08:09→21:16)
[2025-02-18] MEDS: NSS (PRESERVATIVE FREE) 10 ML IV (08:09)
[2025-02-18] MEDS: PROTONIX IV 40 MG IV (08:09)
--- NOTE | 2025-02-18 08:36 | PN.DE.MGMTRT ---
Insulin Management
- -
02/18/2025: Diabetes Management Follow up
Patient admitted 01/27 with abdominal pain and SOB PMH: A-fib, hyperthyroidism, chronic HFrEF, LLE arterial occlusion due to thromboembolism (06/2023), h/o acute limb ischemia of RLE with thromboembolic occlusion of the right iliac system s/p
thromboembolectomy of the right iliac system + thromboembolectomy of the right SFA, popliteal artery. Prior to admission was taking Jardiance 10mg daily. A1C 6.3%, Cr 1.1, eGFR >60.
CTA showed thrombosis of the SMA s/p ex lap with thromboembolectomy of SMA and placement of an AbThera Vac 01/27/25. Postoperatively he was started on the glycemic protocol due to hyperglycemia.
Pt remains in ICU, intubated on Precedex, unable to discuss diabetes care plan. No Family at bedside.
POD #7 s/p exp lap, mesenteric ischemia, abdominal washout. POD #11 s/p exp lap with small bowel resection.
POD #20 s/p abd closure. POD# 21 s/p exp lap, mesenteric angiography, partial omentectomy, tap block, abdominal closure
Remains NPO with NGT, on TPN. Transitioned off glycemic protocol on 02/10 at 7AM to moderate corrective Q6 hrs
Glucose stable and in range, 140 to 158, FBG 151 V, 141 POC this AM, required only 1 unit of corrective insulin @ noon yesterday.
Will make no changes to current regimen: Cont moderate corrective Q6 hrs
Discussed with nurse. Will cont to follow.
Diabetes History
- -
Type of Diabetes: 2
Pre-Admission Diabetes Regimen
02/18/25
03:53
Creatinine 0.9
Lab Results
Hemoglobin A1c 6.3 % (4.0-5.6) H 01/27/25 14:42
Insulin Pump Settings
IP Diabetes Regimen
02/17/25 02/17/25 02/17/25
11:47 18:07 23:34
Glucose
POC Glucose 158 H 140 H 144 H
02/18/25 02/18/25
03:53 05:27
Glucose 151 H
POC Glucose 141 H
Patient Education
--- NOTE | 2025-02-18 08:41 | W.PN.CARDCBS ---
Today's Communication / Plan
-
Increase Lasix
Follow renal function/electrolytes. Keep K greater than 4, mag greater than 2
Follow I's/O's and daily weights
Maintain IV heparin
Discussed with ic design manager
Impression / Plan
-
.
Primary Appeals Reviewer Veteran: Dr. Pickett
Primary EP: Dr Solorio
PCP: Dr Peñaloza
HPI: Patient with history of cardioembolic occlusion of left common femoral artery 06/2023, right iliac artery occlusion status post thromboembolectomy 10/29/2024. During that time was also noted to be in persistent rapid A-fib initially discovered
07/2023 with history of noncompliance with medications. Also with known low EF suspected tachycardia mediated status post cath 05/2024 with nonobstructive CAD.
He presented back to the ED 11/2024 due to generalized malaise and was noted to have a seroma of his right groin s/p I/D and wound vac. He was also found to be in decompensated heart failure with reduced ejection fraction and have atrial
fibrillation with rapid ventricular rates. Plan for LUIS ENRIQUE cardioversion but LUIS ENRIQUE 01/04/2025 showed massive occlusive thrombus in left atrial appendage. Most recently, presented on 01/27/2025 with acute onset abdominal pain found to have acute
mesenteric ischemia with SMA occlusion, went to OR for exploratory laparotomy and SMA thrombectomy. Postop shock with metabolic/lactic acidosis, on Levophed and intubated. Cardiology consulted for management of atrial fibrillation and heart failure
Impression:
Acute mesenteric ischemia with SMA occlusion, status post exploratory lap and SMA thrombectomy 01/27/2025 and redo OR 02/07/2025 and OR 02/08/2025
Acute hypoxemic respiratory failure
Shock with metabolic/lactic acidosis
Right groin seroma
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
Persistent atrial fibrillation, first discovered July 2023
Non-FL myocardial injury
Chronic OAC with eliquis
Left atrial appendage thrombus by LUIS ENRIQUE 12/2024
Chronic HFrEF
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
NSVT
Hyperthyroidism
Noncompliance
Depression
History of ETOH and tobacco abuse
Obesity
Ventilator dependent respiratory failure
ECHO 04/04/2024: EF 10 to 15%, severe global hypokinesis, mild MR, trace TR, PAP 30 to 33 mmHg
Cardiac catheterization 05/22/2024: Nonobstructive coronary disease with normal to mildly elevated right and left-sided filling pressures with normal cardiac output
Echocardiogram 10/30/2024: Severely dilated left ventricle, severely reduced LV systolic function, global hypokinesis with ejection fraction of 5-10%, moderate to severe eccentric TR with PA pressure of 30-35 mmHg, small pericardial effusion.
LUIS ENRIQUE 01/04/2025: LVEF 10 to 15%, definite massive occlusive thrombus in left atrial appendage, mild MR, moderate to severe TR
Plan:
Critically ill 59 year old Hospital day 22
He continues to remain on the ventilator
-Plan for trial of wean today
Persistent atrial fibrillation;R iliac artery occlusion s/p thromboembolectomy of right iliac system, right superficial femoral artery, popliteal artery, profunda femoral artery 10/29/2024; Cardioembolic occlusion of left common femoral artery
status post thrombectomy 06/2023; Left atrial appendage thrombus by LUIS ENRIQUE 12/2024
-Tolerating heparin with relatively stable hemoglobin of 8g/dL s/p 1 unit PBBCs 02/17
-Continue IV heparin until able to take Eliquis given multiple embolic events in the past
-Continue IV amiodarone and Lopressor as unable to take p.o.
-Long-term plan would likely be to repeat transesophageal echo (given large occlusive thrombus in left atrial appendage) if he recovers from abdominal procedures and then make a plan regarding risk of ablation.
Volume overloaded with NICM, EF 10-15%
-Increase Lasix to 40mg IV TID
-Opitmize GDMT once able
Continue meropenem and micafungin for infection.
Long-term prognosis is likely poor
Progress Note - Appeals Reviewer Veteran
Subjective
Date of Service: February 18, 2025
Seen and examined. Ventilated but awake and responsive. Chart/telemetry reviewed
Objective
Labs:
02/18/25 03:53
Labs
Hgb 8.0 g/dL (13.0-18.0) L 02/18/25 03:53
Hct 25.2 % (39.0-52.0) L 02/18/25 03:53
Plt Count 378 10^3/uL (130-400) 02/18/25 03:53
PT 15.6 Sec (11.4-14.6) H 02/14/25 04:43
INR 1.19 02/14/25 04:43
APTT 116.7 Sec (23.4-35.0) H 02/18/25 03:53
Sodium 143 mmol/L (135-145) 02/18/25 03:53
Potassium 3.2 mmol/L (3.5-5.1) L 02/18/25 03:53
BUN 41 mg/dl (9-20) H 02/18/25 03:53
Creatinine 0.9 mg/dL (0.7-1.3) 02/18/25 03:53
Glucose 151 mg/dl (70-99) H 02/18/25 03:53
Vital Signs and I&O:
Vital Signs
Temp Pulse Resp BP Pulse Ox
101 F H 71 9 134/53 100
02/18/25 07:21 02/18/25 08:25 02/18/25 08:25 02/17/25 17:54 02/18/25 08:25
Vital Signs
Temp Pulse Resp BP Pulse Ox
101 F H 71 9 134/53 100
02/18/25 07:21 02/18/25 08:25 02/18/25 08:25 02/17/25 17:54 02/18/25 08:25
Intake & Output
02/16/25 02/17/25 02/18/25 02/19/25
06:59 06:59 06:59 06:59
Intake Total 3199.8 / 3317.5 3597.7 / 4251.1 4599.6 / 4727.8 286.4 / 286.4
Output Total 5730 / 5830 3762 / 3822 5385 / 5485 175 / 175
Balance -2530.2 / -2512.5 -164.3 / 429.1 -785.4 / -757.2 111.4 / 111.4
Physical Exam
Physical Exam
General: Awake on the ventilator.
Heart: irregular, positive S1-S2, no murmurs, distant heart sound
Lungs: Bronchovesicular breath sounds decreased at the bases with fine crackles
Extremities: + edema UE/LE edema
--- NOTE | 2025-02-18 08:45 | W.PN.CRS1 ---
Today's Communication / Plan
-
As below
Assessment/Plan
-
59-year-old male with PMH of A-fib (on Eliquis), hypothyroidism, PVD (s/p LLE thrombectomy 2022, RLE thrombectomy 2023) who presented with acute abdominal pain and found to have SMA occlusion
01/27/2025- Ex lap, SMA thromboembolectomy, open abdomen
01/28/2025- Take-back, mesenteric angiography, partial omentectomy, tap block, abdominal closure
02/07/2025- Exlap, SBR (120cm), lysis of adhesions, placement of ABThera wound VAC
02/08/2025- Take-back, abdominal washout, mesenteric angiography with spy, placement of ABThera VAC
02/11/2025- Take-back, small bowel anastomosis, bilateral cutaneous advancement flaps, abdominal wall closure
Having bowel function
Tmax 102, VSS
WBC 12.2 from 13.7, Hb 8.8 from 8.3, CR 0.9
- Mesenteric ischemia, c/b perforation and 120cm of necrotic bowel, s/p open abdomen, s/p SB anastomosis with abdominal closure
-C/b subQ bleeding, stopped after applying binder and holding hepgtt x24 hrs; cont abdominal binder
�S/p pRBC on 02/17, Hb stable today, cont hep gtt
-Appreciate ICU
-Wean vent as tolerated
-Cont pain control
-MAP >65
�Continue n.p.o. with NGT
� Continue TPN if weaning to extubate today; if going to remain intubated for 1-2+days, ok to transition to TFs
� Appreciate ID, cont abx
� Appreciate hospitalist
Subjective Data
Procedure
01/27/2025- Ex lap, SMA embolectomy
01/28/2025- Exploratory laparotomy, mesenteric angiography, partial omentectomy, tap block, abdominal closure
02/07/2025- Exploratory laparotomy, small bowel resection, lysis of adhesions, placement of ABThera wound VAC
02/08/2025- Exploratory laparotomy, abdominal washout, mesenteric angiography with spy, placement of ABThera VAC
02/11/2025- exlap, small bowel anastomosis, abdominal wall closure, bilateral cutaneous advancement flaps
Subjective Data
Date of Service: February 18, 2025
Patient awake, intubated, responding yes and no appropriately. Denies abdominal pain.
Objective Data
-
Vital Signs
Temp Pulse Resp BP Pulse Ox
101 F H 71 9 134/53 100
02/18/25 07:21 02/18/25 08:25 02/18/25 08:25 02/17/25 17:54 02/18/25 08:25
Intake & Output
02/17/25 02/18/25 02/19/25
06:59 06:59 06:59
Intake Total 3597.7 / 4251.1 4599.6 / 4727.8 286.4 / 286.4
Output Total 3762 / 3822 5385 / 5485 175 / 175
Balance -164.3 / 429.1 -785.4 / -757.2 111.4 / 111.4
Intake:
Oral fluids 0 / 0 0 / 0
IV fluids (Total) 1231.7 / 1286.1 1363.6 / 1422.8 118.4 / 118.4
Amiodarone 400.8 / 417.5 400.8 / 417.5 33.4 / 33.4
Heparin 768 / 800 768 / 799 62 / 62
Precedx 62.9 / 68.6 194.8 / 206.3 23.0 / 23.0
IV piggybacks 530 / 1060 1060 / 1060
TPN/PPN 1656 / 1725 1656 / 1725 138 / 138
Amount instilled into GI Tube ( 180 / 180 150 / 150 30 / 30
Total)
[place] Sump 180 / 180 150 / 150 30 / 30
Fecal management system 120 / 120
irrigation (mL)
Rectum 120 / 120
Blood Product Amount Infused ( 250 / 250
mL)
Packed Rbc Leukoreduced Unit 250 / 250
[id number]
Output:
Liquid stool amount 1000 / 1000
Rectum 1000 / 1000
Drain Output (Total)
[facility]
Gastrointestinal tube output ( 50 / 50 0 / 0
Total)
[place] Sump 50 / 50 0 / 0
Urine, [place] 3692 / 3752 4365 / 4465 175 / 175
Other:
Number of unmeasured liquid
stools
Rectum 3
Lab Results
02/18/25 03:53
Physical Exam
-
General: No Acute Distress and AOx3
HEENT: Grossly Normal
Abdomen: Soft, Non Distended, Tender (Appropriately tender near midline incision), No Guarding, No Rebound and Other (KIKI-serosanguineous output)
Skin: Warm and Dry
Incision: Clear, Dry, Intact, No Skin Erythema and Other (Closed with bry, dressings changed)
--- NOTE | 2025-02-18 09:30 | W.PN.HOSP.TC ---
Today's Communication/Plan
-
see bold
Assessment / Plan
Assessment / Plan
59M hx dilated cardiomyopathy, EF 5-10%, afib LV thrombus on AC non-compliant, left lower extremity arterial occlusion due to thromboembolism 07/06 and acute limb ischemia RLE s/p thromboembolectomy 11/06 presented to the ER with abdominal pain and
shortness of breath. 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 Post-op course complicated with
ileus.
A/P:
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
Post-op Ileus
Fever unknown origin possibly infectious vs drug fever
-appreciate vascular, CRS, Program Developer consults
-s/p OR 01/27: thromboembolectomy of SMA, placement ABThera Vac
-s/p OR 01/28: exploratory laparotomy, mesenteric angiography, partial omentectomy, tap block, abdominal closure
-s/p IV Zosyn - completed 7 day course, however fever/leukocytosis persist
-TPN initiated on 02/02
-02/07, CT abdomen and pelvis showed new mild intraperitoneal free air indicating a perforated viscus
-s/p OR 02/07: exploratory laparotomy, small bowel resection, lysis of adhesions, placement of ABThera wound VAC
-Continue NPO, NGT, TPN
-ID eval appreciated micafungin completed, empiric IV zosyn switched to meropenem, later switched to Vancomycin d/t Enterococcus faecium noted in wound culture
-cont IV tylenol prn, ice packs prn
-s/p Levophed
-Returned to OR with CRS 02/11/2025 exploratory lap, small bowel anastomosis, abd wall closure, bilateral cutaneous advancement flaps,repeat wound culture results pending
-02/13/25 developed increased abd distension firmness w/ associate drop in hgb overnight, CRS eval appreciated 200-300 mL of dark sanguinous blood expressed from midline wound likely subcutaneous bleed, abd binder applied and hep gtt briefly held
since resumed
-Trend fever and white count
Anemia
Acute blood Loss anemia 2/2 surgical procedures, subcutaneous bleed as above
Iron Studies appreciated Anemia of Chronic Disease
B12 Folate non-deficiency
02/17 Hgb drifted down to 7.3 responded well to 1PRBC transfusion, increased to 8.3
Monitor hemoglobin, transfuse as needed
Hypoxic Respiratory Failure status post intubation
-Appreciate asset protection officer input, continue vent management as per asset protection officer
-failed multiple attempts to wean off ventilator.
-Program Developer Update Note 02.15.25 discussion with family (sister Keyla) appreciated
-Extubated 02/18
Hypokalemia
Hypophosphatemia
-monitor and replete as necessary
Toxic metabolic encephalopathy
-Monitor
Permanent AFIB with RVR
Left atrial appendage thrombus
-Status post Cardizem drip
-appreciate Cardiology, continue IV amiodarone drip, IV heparin drip
-IV metoprolol held due to hypotension/shock since resumed
-resume Metoprolol when able to take PO
-resume Eliquis when confirm no need for further procedures
Acute on chronic HFrEF (EF 5-10%)
-hold BEEF PLUCK TRIMMER Entresto and Metop XL until patient can take PO meds
-Trend creatinine, trend daily weights
-02/14 ECHO appreciated EF10-15% mod MR TR no significant change from prior ECHO
-IV lasix as per cardio asset protection officer
-BNP significantly increased 02713
-IV lasix increased to 40 mg BID
Bacteruria
-UA on 02/05/25 with bacteuria
-Was on Rocephin, changed to Zosyn, then meropenem, now on vancomycin as above
Hyperthyroid--new diagnosis last admission?--on methimazole but would hold for now
-repeat TSH here Low but T4 wnl
-cont methimazole hold
-suspect euthyroid-sick syndrome
-repeat TFTs in 1 month
Type 2 diabetes
-well controlled on sliding scale
-cont glycemic control
PAD
Active smoker
smoking cessation counseled
DVT proph - IV heparin drip
Code status - Full Code
Total time spent to see the patient on the floor, examine the patient, review data and lab results, discuss treatment plan with patient, nursing staff around 50 minutes.
Physical Exam
General: Obese no acute distress
HEENT: Normocephalic, Atraumatic, intubated
Respiratory: Clear to Auscultation bilaterally
Cardiac: Normal S1/S2, irregular irregular rhythm
GI: Soft, distended, incision dressed
Extremities: No Clubbing, No Cyanosis
Neuro: awake alert following commands
Anticipated Discharge: > 48 hours
Subjective/Interval History
-
Date of Service: February 18, 2025
Patient was extubated this morning. Complains of abdominal pain. Continues to have fever, no vomiting.
Objective Data
-
Labs:
Laboratory Results
02/18/25 02/18/25 02/18/25
03:53 06:00 12:00
WBC 12.2 H
Hgb 8.0 L
Hct 25.2 L
Plt Count 378
APTT 116.7 H Pending
HCO3 Cancelled
Sodium 143 Pending
Potassium 3.2 L Pending
Chloride 108 H Pending
Carbon Dioxide 29 Pending
BUN 41 H Pending
Creatinine 0.9 Pending
Glucose 151 H Pending
Calcium 8.0 L Pending
Total Bilirubin 4.5 H
AST 55
ALT 77 H
Alkaline Phosphatase 131 H
Vital Signs:
Vital Signs
Temp Pulse Resp BP Pulse Ox
101 F H 71 9 134/53 100
02/18/25 07:21 02/18/25 08:25 02/18/25 08:25 02/17/25 17:54 02/18/25 08:25
I&O
02/17/25 02/18/25 02/19/25
06:59 06:59 06:59
Intake Total 3597.7 / 4251.1 4599.6 / 4727.8 286.4 / 286.4
Output Total 3762 / 3822 5385 / 5485 175 / 175
Balance -164.3 / 429.1 -785.4 / -757.2 111.4 / 111.4
--- NOTE | 2025-02-18 10:24 | PTOTSP ---
pt continues to be intubated. per RN, sign off and will reorder once pt is medically stable.
--- NOTE | 2025-02-18 11:55 | W.PN.ID1 ---
Date of Service
Date of Service: February 18, 2025
Today's Communication
Continue vancomycin.
Assessment / Plan
Ongoing fevers
Leukocytosis
Mesenteric ischemia with perforation and necrotic bowel
- s/p washout and primary abdominal closure (02/11/2025)
VDRF
Severely dilated cardiomyopathy with markedly diminished EF
Hx A-fib
Recommendations:
Multiple possible etiologies of fever and leukocytosis, including drug fever, versus ongoing abdominal process.
- Given persistence of fever, drug fever suspected.
Duplex ultrasound positive for left mid brachial vein, although doubt that this is the etiology of the ongoing fever.
Wound culture noted to be positive with Enterococcus (amp resistant)
Continue vancomycin (d#3). Monitor levels closely to prevent nephrotoxicity.
Follow white count and temperature curve. (of note, current temps are 'core', thus are higher than 'oral')
May consider repeat CT A/P this week.
Continue with supportive care. Limit medications as is possible.
����������������������������������������������������������
Chief Complaint
-: Fever and Leukocytosis
Subjective / Review of Systems
Patient seen and examined. Now extubated. Fevers persist.
Vital Signs / Physical Exam
Vital Signs
Vital Signs
Temp Pulse Resp BP Pulse Ox
101.1 F H 64 22 134/53 99
02/18/25 11:05 02/18/25 10:30 02/18/25 10:30 02/17/25 17:54 02/18/25 10:30
Physical Exam
Constitutional: Acutely Ill and Non-toxic
Oropharyngeal: Other (NG tube in place.)
Cardiovascular: Regular Rate and S1/S2; Negative S3/S4
Pulmonary: Clear
Gastrointestinal: Soft, Decreased Bowel Sounds, No Rebound, No Guarding and Other (Abdominal binder in place. FMS in place)
Genito-Urinary: Wilkerson and Clear Urine
Extremities: Edema (2+ bilateral lower extremity edema); Negative Cyanosis or Erythema
Neurological: Awake and Other (Arousable to touch.)
Psychological: Calm
Lines: PICC (LUE midline; RUE PICC line)
Objective Data
Lab Data
Lab Results
02/18/25 03:53
PT 15.6 Sec (11.4-14.6) H 02/14/25 04:43
INR 1.19 02/14/25 04:43
APTT 116.7 Sec (23.4-35.0) H 02/18/25 03:53
Estimated Creat Clear 114 ml/min 02/18/25 03:53
Lactic Acid 1.1 mmol/L (0.7-2.0) 02/09/25 04:00
Total Bilirubin 4.5 mg/dl (0.2-1.3) H 02/18/25 03:53
AST 55 U/L (17-59) 02/18/25 03:53
ALT 77 U/L (0-50) H 02/18/25 03:53
Alkaline Phosphatase 131 U/L (38-126) H 02/18/25 03:53
Most recent labs reviewed.
Micro Results:
02/17/25 09:06 C. difficile GDH Antigen & Toxins - Final
Feces/Stool Negative for toxigenic C.difficile
02/11/25 15:30 Wound Culture - Final
Abdomen Enterococcus faecium
Gram Stain - Final
02/11/25 15:30 Anaerobic Culture - Final
Other-Please specify - Other NO ANAEROBES ISOLATED
02/11/25 13:11 Blood Culture - Final
Blood/Venous No Growth - Final Report
02/14/25 13:46 Respiratory Culture - Final
Tracheal Aspirate Usual Respiratory Shireen
Gram Stain - Final
02/07/25 18:36 Blood Culture - Final
Blood/Venous No Growth - Final Report
02/11/25 15:30 Fungal Culture - Preliminary
Other-Please specify - Other Culture in progress.
Positive cultures are reported as soon as detected.
Final report to follow in four to five weeks.
02/11/25 14:22 C. difficile GDH Antigen & Toxins - Final
Feces/Stool Negative for toxigenic C.difficile
02/11/25 10:41 Influenza Types A & B (SHERLYN) - Final
Nasal Swab Negative for Influenza A & B, NAAT
Negative results must be combined with clinical observations
and patient history.
Nucleic Acid Amplification test (NAAT)performed on the
[employer]ere[employer] platform.
02/09/25 09:21 Urine Culture - Final
Urine NO GROWTH
01/27/25 12:14 Blood Culture - Final
Blood/Venous No Growth - Final Report
01/27/25 21:32 MRSA Screen - Final
Nose No Methicillin Resistant Staphylococcus aureus isolated.
Wound/abscess/other Cult Preliminary 02/16/25-907
Moderate Enterococcus faecium
Moderate Diptheroids
Organism 1 Enterococcus faecium
1. Enterococcus faecium
M.I.C. RX
--------- ---
Ampicillin >8 R
Daptomycin >4 R
Gentamicin Synergy Screen <=500 S
Linezolid 2 S
Vancomycin 1 S
Imaging:
02/13/2025 CXR (portable): Mild haziness in the right medial lower lung field. Poor visualization of the medial left hemidiaphragm. No pleural effusion or pneumothorax noted.
02/11/2025 CXR (portable): Hazy opacification along both lower lungs without significant change. No significant pleural effusion is noted.
Care Review
Plan reviewed with: Physician (Pulmonary)
[2025-02-18 11:58] LABS: Glucose - Point of Care 155 mg/dl (70-99)
[2025-02-18 12:24] LABS: APTT 98.7 Sec (23.4-35.0)
[2025-02-18] MEDS: NOVOLOG FLEXPEN-MODERATE RESISTANCE 1 UNITS SC (12:29)
[2025-02-18 12:45] LABS: Blood Urea Nitrogen 42 mg/dl (9-20); Carbon Dioxide 33 mmol/L (22-30); Chloride 108 mmol/L (98-107); Estimated Creatinine Clearance 114 ml/min; Glucose 162 mg/dl (70-99); Sodium 143 mmol/L (135-145); eGFR > 60.00
[2025-02-18 12:52] LABS: Potassium 3.4 mmol/L (3.5-5.1)
--- NOTE | 2025-02-18 13:08 | PTCARENOTE ---
RT initiated CPAP wean 03/18/.40 @ 0825. Pt. tolerated wean. Case reviewed by Dr. Rivera during rounds and further orders received to extubate to BiPAP. RT extubated pt @ 0930 to BiPAP 15/ w 2L; tolerated BiPAP. A-line removed per orders. Wiklerson
removed per protocol. At approx 1200, BiPAP removed by RT and pt. transitioned to 2LNC. Mouth care provided. Pt. remains on 2LNC, tolerating. In touch w colorectal surgery; plan to keep pt. strict NPO on TPN and w NGT to cont suction today;
tentative plan for NGT clamping trial tomorrow. Pt.'s sister and mother to bedside, updated. Pt. instructed on how to report care concerns and call marshall in reach.
--- NOTE | 2025-02-18 13:19 | CM ---
M following re: discharge planning.
Discussed in Rounds, reviewed pt's chart, met with pt.
Pt extubated today to 2L NC, continue supportive care.
Pt lives in an apartment/rented room, , 2nd floor, 2FF of steps to get to his apartment. Pt has no children, has 4 brothers, 3 sisters and a mother, one brother lives with mother and brother Jag lives in [facility]. Pt has supportive friend
Angie. Pt is independent in all areas [employer]NA[employer], was at [facility] in the past.
D/C plan: [facility] when medically stable.
CM will follow with discharge plan updates as hospitalization progress
[2025-02-18] MEDS: KCL 160 MEQ IV (14:21)
--- NOTE | 2025-02-18 16:36 | PHA.VAN.FU ---
Addendum entered and electronically signed by Jojo Roth Juliet 02/20/25 11:44:
Note: Vanc 1250mg Q12H predicts AUC 504, peak 30, trough 13.6 based on patient-specific PK calculations
Original Note:
Vancomycin Assessment / Plan
- Assessment
Renal Function: Stable (0.9)
WBC's are: Trending Down (12.2)
In the past 24 hrs, patient has been: Febrile (101.1)
- Assessment - Therapeutic Drug Monitoring
Extrapolated Cmax (mcg/mL): 29.7
Peak level was drawn: Appropriately
Extrapolated Cmin (mcg/mL): 18
Trough Drawn: Appropriately
Levels were drawn: At steady state (after 4th maintenance dose)
Calculated AUC (mcg*h/mL): 571
Calculated ke: 0.0759
Calculated half life (H): 9.1
Calculated Vd (L): 69.15
Calculated Vanc CL (ml/min): 87.44
- Dosing Plan
Adjust Regimen to: Vanco 1250mg Q12H
- Monitoring Plan
No level(s) ordered at this time: Consider in the next few days
- Follow Up
Pharmacy will continue to follow.
Vancomycin Follow UP
- -
Patient Age: 59
Patient Sex: Male
Vancomycin Day #: 3
Indication: Gi / Intra-Abdominal
Requesting Provider: Irina Bruno
Height / Weight:
Height 6 ft
Actual Weight 114.6 kg
IBW in k.6
Adjusted BW in k.4 (BMI 34.2)
Pertinent Past Medical History: mesenteric ischemia w/perf; intubated
- Vital Signs / Lab Results
Temp Pulse Resp BP Pulse Ox
98.2 F 75 17 123/74 98
02/18/25 15:14 02/18/25 16:01 02/18/25 16:00 02/18/25 16:01 02/18/25 16:00
Lab Results - Hematology
02/16/25 02/17/25 02/18/25
04:58 03:33 03:53
WBC 21.9 H 13.7 H 12.2 H
Lab Results - Chemistry
02/16/25 02/17/25 02/18/25
04:58 03:33 03:53
BUN 46 H 45 H 41 H
Creatinine 0.9 0.9 0.9
Estimated Creat Clear 116 114 114
Albumin 1.8 L
02/18/25
12:02
BUN 42 H
Creatinine 0.9
Estimated Creat Clear 114
Albumin
Microbiology Results
02/11/25 15:30 Fungal Culture - Preliminary
Other-Please specify - Other Yeast
02/17/25 09:06 C. difficile GDH Antigen & Toxins - Final
Feces/Stool Negative for toxigenic C.difficile
02/11/25 15:30 Wound Culture - Final
Abdomen Enterococcus faecium
Gram Stain - Final
02/11/25 15:30 Anaerobic Culture - Final
Other-Please specify - Other NO ANAEROBES ISOLATED
02/11/25 13:11 Blood Culture - Final
Blood/Venous No Growth - Final Report
Therapeutic Drug Monitoring
Vancomycin Peak 29.7 ug/ml (18-26) H 02/17/25 21:17
Vancomycin Trough 18.0 ug/ml (5-20) 02/18/25 03:53
[2025-02-18] MEDS: VANCOCIN 275 MG IV (17:47)
[2025-02-18 17:58] LABS: Glucose - Point of Care 145 mg/dl (70-99)
[2025-02-18 18:19] LABS: APTT 89.5 Sec (23.4-35.0)
--- NOTE | 2025-02-18 18:39 | PTCARENOTE ---
Wilkerson removed @1230; pt voided in urinal x2 and saturated. FMS leaking; flushed. Complete hygiene provided and pt. repositioned. Pt. falling asleep; RT notified and placed on BiPAP 15/8, 2LNC; tolerating. Remains on amio/heparin/tpn-see flow
sheets. Pt. using call marshall approp; w in reach.
--- NOTE | 2025-02-18 20:00 | PTCARENOTE ---
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 LA IV x 2, LUE Midline, RUE DL PICC- WNL-heparin, amio, TPN infusing per work list. abd round, + BS, RAJINDER drsg changed- KIKI w/minimal sang drainage, abd binder in place. L NGT flushed, minimal bilious output.
Wilkerson draining adequate amt nicole urine. FMS WNL. mouth care, turned, repositioned, skin care, Wilkerson care. will monitor.
[2025-02-18] MEDS: Parenteral Nutrition, Central 1670 IV (21:07)
[2025-02-19] VITALS (20 sets, daily range): BP systolic 109–171; BP diastolic 67–145; PULSE 2–90; O2SAT 96–97; BMI 33.3
[2025-02-19 00:11] LABS: Glucose - Point of Care 139 mg/dl (70-99)
[2025-02-19] MEDS: NOVOLOG FLEXPEN-MODERATE RESISTANCE SC ×2 (00:11→06:09)
[2025-02-19] MEDS: LOPRESSOR 7.5 MG IV ×4 (00:21→17:17)
[2025-02-19] MEDS: HEPARIN 25000 UNITS/250 ML IV ×3 (01:49→17:17)
[2025-02-19] MEDS: DILAUDID 0.5 MG IV ×2 (02:07→21:32)
[2025-02-19] MEDS: CORDARONE 518 MG IV (05:17)
[2025-02-19 05:46] LABS: Hematocrit 27.1 % (39.0-52.0); Hemoglobin 8.6 g/dL (13.0-18.0); Mean Corp Hgb Conc. 31.7 g/dL (33.0-37.0); Mean Corpuscular Hgb 32.7 pg (27.0-31.0); Mean Platelet Volume 10.8 fL (7.4-10.4); Platelet Count 441 10^3/uL (130-400); Red Blood Cell Count 2.63 10^6/uL (4.70-6.10); Red Cell Dist. Width 18.6 % (11.5-14.5); White Blood Cell Count 15.6 10^3/uL (4.8-10.8)
[2025-02-19 05:48] LABS: APTT 112.6 Sec (23.4-35.0)
[2025-02-19 06:05] LABS: Blood Urea Nitrogen 42 mg/dl (9-20); Carbon Dioxide 34 mmol/L (22-30); Chloride 107 mmol/L (98-107); Estimated Creatinine Clearance 114 ml/min; Glucose 137 mg/dl (70-99); Magnesium 1.9 mg/dl (1.6-2.3); Phosphorus 3.3 mg/dl (2.5-4.5); Sodium 145 mmol/L (135-145); eGFR > 60.00
[2025-02-19] MEDS: VANCOCIN 275 MG IV ×2 (06:14→18:38)
--- NOTE | 2025-02-19 07:17 | W.PN.INTV ---
Today's Communication / Plan
Recommendations
Extubated and doing well, BIPAP continued PRN
Currently with NGT in place, TPN per team
Encouraged OOB, PT
Abx per ID, can consider discontinuation, fevers likely drug-related
Off pressors, precedex
Ongoing cardiac management given CM
Transfer to post surgical floor, we will sign off upon transfer
Assessment
-
59-year-old male with a past medical history of A-fib, chronic HFrEF, LLE arterial thromboembolism (06/2023), history of acute limb ischemia of RLE with thromboembolic occlusion of the right iliac system s/p thromboembolectomy right Iliac+SFA,
popliteal artery and profundo-femoral artery (10/2024) who presents with abdominal pain and SOB. 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 In the ER, initial labs
showed potassium 2.9, lactate 5.2, T. bili 2.1, and proBNP 4580. CTA A/P showed thrombosis of the SMA with small bilateral pleural effusions and groundglass attenuation in the bases of the lungs. He was given 40 mg IV Lasix in the ER, Dilaudid 0.5
mg, potassium repletion, 1 L NS 0.9% and Zofran. Vascular surgery was consulted and given his significant abdominal pain of acute onset he was consented for the OR. He underwent exploratory laparotomy with thromboembolectomy of superior mesenteric
artery and placement of an AbThera VAC. Postoperatively he returned to the ICU intubated, and Director Of Cardiopulmonary Services services consulted for additional management/recommendations. Patient was extubated and improved, and subsequently downgraded to the IMU on
01/31. He was downgraded to telemetry on 02/04 where he has been managed. Unfortunately on 02/05 he developed a small bowel obstruction. On 02/07, repeat CT A/P showed free air in the abdomen indicating a perforated viscus. He went to the OR for an
ex lap with small bowel resection and placement of an ABThera wound VAC, and is now transferred back to the ICU intubated.
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
Ventilator dependent respiratory failure
Circulatory shock
Acute mesenteric ischemia with SMA occlusion
Acute on Chronic heart failure with reduced ejection fraction, LVEF 10 to 15%, proBNP 74219
Atrial fibrillation with rapid ventricular rate
Hyperglycemia
Abnormal urinalysis concerning for UTI
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
Paroxysmal a-fib on Eliquis s/p DH-Cardioversion 04/11/2024
Hyperthyroidism
Chronic HFrEF
Nonischemic cardiomyopathy
PAD s/p Left lower extremity arterial occlusion due to thromboembolism
status post thrombectomy (Dr. Holder) 07/03/2023
s/p right iliac thromboembolectomy 10/29/24
Washout right groin with evacuation/debridement of seromatous collection and fibrinous exudate (Dr. Holder) 11/29/2024
Appendectomy 1986
Plan
Off sedation, precedex off
Likely cause of persistent low grade fevers
Can use ativan PRN for now
RASS goal 0
Likely related to sedation with septic shock in the setting of A-fib with RVR and HFrEF, EF 10% on repeat echocardiogram
Remains off pressors
Continue amiodarone gtt (AFib history)
Now off cardizem gtt
Resumed IV Lopressor
Prior wean with limited by tachycardia, heart rate in the 150s with rapid shallow breathing. Hopefully this is improved upon resuming beta-renee therapy which she was on as outpatient
Heparin drip for anticoagulation has been held due to abdominal hematoma, resumed 02/14
LUIS ENRIQUE 01/04/2025 with EF 10 to 15%, normal RV size and function, moderate to severe TR, large occlusive thrombus in left atrial appendage.
Repeat echo 02/14 with resolution of thrombus, EF remains 10%
Cards following, ongoing diuresis
Intubated since 02/08-- extubated 02/18 doing well
BIPAP continued PRN
Chest x-ray 02/15 with increased right lower lobe infiltrate, likely combination of plugging, atelectasis, sputum cx negative
Aspiration precautions
NGT in place, NPO--continue post extubation
TPN per team
Also CT A/P from 02/07/2025 still shows circumferential wall thickening in the distal small bowel suggestive of enteritis
Patient to OR on 02/08/2025 for an ex lap with abdominal washout and mesenteric angiography (no cultures sent)
Patient to OR again 02/11 for abdominal washout and wound closure, (culture sent positive Enterococcus)
Postoperative management as per colorectal surgery
Continue NGT on low continuous wall suction per surgery.
Heparin drip discontinued 4/2 am, resumed per surgery/cardiology 02/14. Hemoglobin remained stable
- Was on heparin drip as per colorectal surgery given his SMA occlusion. Resumed 02/14
- Follow hemoglobin, maintain active type and screen
Mesenteric ischemia likely embolic, s/p ex lap with SMA embolectomy (on 01/27/2025), followed by delayed abdominal wall closure with ex lap and partial omentectomy (on 01/28/2025)
Heparin had to be discontinued due to abdominal hematoma, resumed 02/14
Reviewed oncology evaluation few weeks ago, hypercoagulable workup negative at that time.
Fibrinogen normal, no evidence of DIC presently
Creat stable, baseline
Monitor input and output closely
Follow weights/IOs
Patient now on meropenem. Zosyn discontinued per ID, micafungin discontinued per ID
Rev LUIS ENRIQUE from Dec 2024, large thrombus. Repeat echo 02/14 reveals no obvious thrombus, EF 10%
- UA on 02/05/2025 was positive for nitrites, with +1 leukocyte esterase and 6�10 urine WBC
- Ceftriaxone changed to Zosyn on 02/07/2025 in setting of small bowel perforation with sepsis
-Now on meropenem per ID. Follow cultures
Follow cultures, follow fever curve, follow leukocytosis
ID following
Likely with DM 2
- HbA1c 6.3 on 01/27/2025
- Started insulin drip on 02/08 given he is critically ill with hyperglycemia - this is now weaned off; will resume ISS q6hr
- Remains on TPN
Gi Prophylaxis: PPI IV
DVT ppx: Heparin gtt resumed 02/14
Diagnostic Data:
CXR 02/18/25- Support apparatus in position including right-sided PICC line with tip at the level of the cardiac right atrium. Line could be pulled back 3 cm. Cardiomegaly, unchanged.
Right basilar opacification without significant change including differential diagnostic possibilities.
02/13/25- Mild bibasilar opacification probably due to limited inspiration. Pneumonia not excluded. Stable
CTA Abd/Pelvis w/wo IV contrast 01/27/2025: Thrombosis of superior mesenteric artery branches, new since prior examination. No bowel thickening or pneumatosis to suggest bowel ischemia. No acute inflammatory changes within the abdomen or pelvis. Mild
diverticulosis without acute diverticulitis. Stable fatty infiltration of liver. Stable low-attenuation right adrenal mass 1.3 cm, most consistent with benign adenoma. Hazy attenuation in the dependent lung bases. Groundglass attenuation. Small
bilateral pleural effusions. Possible mild pulmonary edema and/or atelectasis.
CT A/P w IV and oral contrast 02/07/2025: New mild intraperitoneal free air indicating a perforated viscus. The exact location is difficult to discern, but distribution of free air greatest in the anterior mid to upper abdomen near the persistently
dilated proximal small bowel loops that again contain air-fluid levels. Long segment distal small bowel smaller in caliber with circumferential wall thickening suggestive of an enteritis.
ECHO 02/14/25- Left ventricle is severely dilated with severely reduced left ventricular systolic function. Severe Global hypokinesis. Left ventricular ejection fraction is 10 to 15% by visual estimate. Normal right ventricular size and function.
Mildly dilated left atrium. Moderate mitral regurgitation. Moderate tricuspid regurgitation. Estimated pulmonary artery pressure of 45 mmHg, assuming a right atrial pressure of 3 mmHg. Compared to the previous echo 01/04/25, there is no significant
change. The left atrial appendage was unable to be visualized on this transthoracic study.
-----
Critical care statement: A total of 35 minutes of critical care time was provided for this patient today. This includes management of unstable vital signs, evaluation of the patient at bedside, reviewing the patient's pertinent medical records
including radiographs, microbiology, laboratory evaluations, and discussion with primary team, consultants, pharmacy, nutrition, physical therapy, case management, charge nurse, critical care nursing, and respiratory therapy.
Subjective Dataa
Subjective Data
Date of Service:
Date of Service: February 19, 2025
Chief Complaint: Director Of Cardiopulmonary Services Follow Up
Subjective:
No acute events ON, stable post extubation
NGT remains in place with continuous green output
Objective Data
Data Reviewed
Vital Signs / I&O / Oxygen:
Vital Signs
Temp Pulse Resp BP Pulse Ox
97.1 F 80 18 140/68 99
02/19/25 03:37 02/19/25 06:00 02/19/25 06:00 02/19/25 06:00 02/19/25 06:00
Intake and Output
02/18/25 02/19/25 02/20/25
06:59 06:59 06:59
Intake Total 4599.6 / 4727.8 3181.3 / 3181.3
Output Total 5385 / 5485 4845 / 4845
Balance -785.4 / -757.2 -1663.7 / -1663.7
SaO2 [CPAP] 96
SaO2 [ASV] 100
SaO2 [A/C] 99
SaO2 99
Nasal Cannula flow liters per 2
minute
Physical Exam
General: Comfortable and Other (NAD, obese)
HEENT: Normocephalic and Anicteric
Cardiovascular: S1-S2, Regular Rhythm and Peripheral Edema (bilateral upper and lower extremities)
Respiratory: Wheeze (negative), Crackles (n), Rhonchi (Scattered), Non-Labored Respirations and Stridor (negative)
GI: Soft, Non Distended (Abdominal binder in place), NG Tube and Other (KIKI drain, mild serosanguineous fluid)
Neurology: Awake, Alert, Oriented and No Motor Deficits
Skin: Warm, Dry, Cyanosis (negative) and Rash (n)
Labs/Micro/Reports
Lab Data
02/19/25 05:17
02/19/25 05:17
Laboratory Results
02/18/25 02/18/25 02/19/25
12:02 17:54 05:17
APTT 98.7 H 89.5 H 112.6 H
Microbiology
02/11/25 15:30 Other-Please specify - Other Fungal Culture - Preliminary
Yeast
02/17/25 09:06 Feces/Stool C. difficile GDH Antigen & Toxins - Final
Negative for toxigenic C.difficile
02/11/25 15:30 Abdomen Wound Culture - Final
Enterococcus faecium
02/11/25 15:30 Abdomen Gram Stain - Final
02/11/25 15:30 Other-Please specify - Other Anaerobic Culture - Final
NO ANAEROBES ISOLATED
02/11/25 13:11 Blood/Venous Blood Culture - Final
No Growth - Final Report
02/14/25 13:46 Tracheal Aspirate Respiratory Culture - Final
Usual Respiratory Shireen
02/14/25 13:46 Tracheal Aspirate Gram Stain - Final
[2025-02-19] MEDS: LASIX 40 MG IV (07:40)
[2025-02-19] MEDS: PROTONIX IV 40 MG IV (07:40)
[2025-02-19] MEDS: NSS (PRESERVATIVE FREE) 10 ML IV (07:40)
--- NOTE | 2025-02-19 08:41 | PHA.VAN.FU ---
Vancomycin Assessment / Plan
- Assessment
Renal Function: Stable (0.9)
WBC's are: Trending Up (12.2->15.6)
In the past 24 hrs, patient has been: Afebrile
- Dosing Plan
Continue: Vanco 1250mg Q12H
- Monitoring Plan
No level(s) ordered at this time: Consider in the next few days
- Follow Up
Pharmacy will continue to follow.
Vancomycin Follow UP
- -
Patient Age: 59
Patient Sex: Male
Vancomycin Day #: 4
Indication: Gi / Intra-Abdominal
Requesting Provider: Irina Bruno
Height / Weight:
Height 6 ft
Actual Weight 111.2 kg
IBW in k.6
Adjusted BW in k.4 (BMI 34.2)
Pertinent Past Medical History: mesenteric ischemia w/perf; intubated
- Vital Signs / Lab Results
Temp Pulse Resp BP Pulse Ox
97.9 F 71 18 145/90 99
02/19/25 08:00 02/19/25 07:40 02/19/25 06:00 02/19/25 07:40 02/19/25 06:00
Lab Results - Hematology
02/17/25 02/18/25 02/19/25
03:33 03:53 05:17
WBC 13.7 H 12.2 H 15.6 H
Lab Results - Chemistry
02/17/25 02/18/25 02/18/25
03:33 03:53 12:02
BUN 45 H 41 H 42 H
Creatinine 0.9 0.9 0.9
Estimated Creat Clear 114 114 114
Albumin 1.8 L
02/19/25
05:17
BUN 42 H
Creatinine 0.9
Estimated Creat Clear 114
Albumin
Microbiology Results
02/11/25 15:30 Fungal Culture - Preliminary
Other-Please specify - Other Yeast
02/17/25 09:06 C. difficile GDH Antigen & Toxins - Final
Feces/Stool Negative for toxigenic C.difficile
02/11/25 15:30 Wound Culture - Final
Abdomen Enterococcus faecium
Gram Stain - Final
02/11/25 15:30 Anaerobic Culture - Final
Other-Please specify - Other NO ANAEROBES ISOLATED
Therapeutic Drug Monitoring
Vancomycin Peak 29.7 ug/ml (18-26) H 02/17/25 21:17
Vancomycin Trough 18.0 ug/ml (5-20) 02/18/25 03:53
--- NOTE | 2025-02-19 08:52 | W.PN.CARDCBS ---
Today's Communication / Plan
-
Reduce IV lasix to 40 mg daily.
Replete potassium as needed
Cont IV amio
Cont IV heparin
Impression / Plan
-
.
Primary Hand Reamer: Dr. Pickett
Primary EP: Dr Solorio
PCP: Dr Peñaloza
HPI: Patient with history of cardioembolic occlusion of left common femoral artery 06/2023, right iliac artery occlusion status post thromboembolectomy 10/29/2024. During that time was also noted to be in persistent rapid A-fib initially discovered
07/2023 with history of noncompliance with medications. Also with known low EF suspected tachycardia mediated status post cath 05/2024 with nonobstructive CAD.
He presented back to the ED 11/2024 due to generalized malaise and was noted to have a seroma of his right groin s/p I/D and wound vac. He was also found to be in decompensated heart failure with reduced ejection fraction and have atrial
fibrillation with rapid ventricular rates. Plan for LUIS ENRIQUE cardioversion but LUIS ENRIQUE 01/04/2025 showed massive occlusive thrombus in left atrial appendage. Most recently, presented on 01/27/2025 with acute onset abdominal pain found to have acute
mesenteric ischemia with SMA occlusion, went to OR for exploratory laparotomy and SMA thrombectomy. Postop shock with metabolic/lactic acidosis, on Levophed and intubated. Cardiology consulted for management of atrial fibrillation and heart failure
Impression:
Acute mesenteric ischemia with SMA occlusion, status post exploratory lap and SMA thrombectomy 01/27/2025 and redo OR 02/07/2025 and OR 02/08/2025
Acute hypoxemic respiratory failure
Shock with metabolic/lactic acidosis
Right groin seroma
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
Persistent atrial fibrillation, first discovered July 2023
Non-GA myocardial injury
Chronic OAC with eliquis
Left atrial appendage thrombus by LUIS ENRIQUE 12/2024
Chronic HFrEF
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
NSVT
Hyperthyroidism
Noncompliance
Depression
History of ETOH and tobacco abuse
Obesity
Ventilator dependent respiratory failure
ECHO 04/04/2024: EF 10 to 15%, severe global hypokinesis, mild MR, trace TR, PAP 30 to 33 mmHg
Cardiac catheterization 05/22/2024: Nonobstructive coronary disease with normal to mildly elevated right and left-sided filling pressures with normal cardiac output
Echocardiogram 10/30/2024: Severely dilated left ventricle, severely reduced LV systolic function, global hypokinesis with ejection fraction of 5-10%, moderate to severe eccentric TR with PA pressure of 30-35 mmHg, small pericardial effusion.
LUIS ENRIQUE 01/04/2025: LVEF 10 to 15%, definite massive occlusive thrombus in left atrial appendage, mild MR, moderate to severe TR
Plan:
Critically ill 59 year old Hospital day 23
>Extubated on February 18 2025.
Cont pulm toilet
>Persistent atrial fibrillation;R iliac artery occlusion s/p thromboembolectomy of right iliac system, right superficial femoral artery, popliteal artery, profunda femoral artery 10/29/2024; Cardioembolic occlusion of left common femoral artery
status post thrombectomy 06/2023; Left atrial appendage thrombus by LUIS ENRIQUE 12/2024
-s/p 1 unit PBBCs 02/17
-Continue IV heparin until able to take Eliquis given multiple embolic events in the past
-Continue IV amiodarone and Lopressor until able to take p.o.
-Long-term plan would likely be to repeat transesophageal echo (given large occlusive thrombus in left atrial appendage) if he recovers from abdominal procedures and then make a plan regarding risk of ablation.
>Volume overloaded with NICM, EF 10-15%
-Reduce lasix to 40 mg IV daily as wt is lowest on record and potassium is very low.
Lasix had been increased February 18 to 40 mg IV TID.
-Cont to monitor Is and Os and daily wts.
-He was taking lasix 40 mg BID as outpt.
-Is and Os Negative over 1600cc last 24 hrs
-Replete potassium
Optimize GDMT once able
Continue Vanco for infection, off meropenem and micafungin
He has had 3 cardiac embolic events in the past 9 months felt to be due to noncompliance.
Long-term prognosis is likely poor
Discussed with darrin.
CCT: 30 min
Progress Note - Hand Reamer
Subjective
Date of Service: February 19, 2025
Pt seen and examined. No complaints. No chest pain or shortness of breath.
Objective
Labs:
02/19/25 05:17
02/19/25 05:17
Labs
Hgb 8.6 g/dL (13.0-18.0) L 02/19/25 05:17
Hct 27.1 % (39.0-52.0) L 02/19/25 05:17
Plt Count 441 10^3/uL (130-400) H 02/19/25 05:17
PT 15.6 Sec (11.4-14.6) H 02/14/25 04:43
INR 1.19 02/14/25 04:43
APTT 112.6 Sec (23.4-35.0) H 02/19/25 05:17
Sodium 145 mmol/L (135-145) 02/19/25 05:17
Potassium 3.0 mmol/L (3.5-5.1) L 02/19/25 05:17
BUN 42 mg/dl (9-20) H 02/19/25 05:17
Creatinine 0.9 mg/dL (0.7-1.3) 02/19/25 05:17
Glucose 137 mg/dl (70-99) H 02/19/25 05:17
Vital Signs and I&O:
Vital Signs
Temp Pulse Resp BP Pulse Ox
97.9 F 71 18 145/90 99
02/19/25 08:00 02/19/25 07:40 02/19/25 06:00 02/19/25 07:40 02/19/25 06:00
Vital Signs
Temp Pulse Resp BP Pulse Ox
97.9 F 71 18 145/90 99
02/19/25 08:00 02/19/25 07:40 02/19/25 06:00 02/19/25 07:40 02/19/25 06:00
Intake & Output
02/17/25 02/18/25 02/19/25 02/20/25
06:59 06:59 06:59 06:59
Intake Total 3597.7 / 4251.1 4599.6 / 4727.8 3181.3 / 3298.0 116.7 / 116.7
Output Total 3762 / 3822 5385 / 5485 4845 / 4845
Balance -164.3 / 429.1 -785.4 / -757.2 -1663.7 / -1547.0 116.7 / 116.7
Physical Exam
Physical Exam
General: No acute distress, AAOX3
Neck: Negative JVD
Heart: Irregularly irregular, Negative S3 positive S1/S2, Negative S4, No murmur
Lungs: CTA b/l, negative wheezes/rales/rhonchi
Abd: Truncal obesity. Positive BS, NT/ND, neg rebound/rigidity/guarding
Ext: Negative cyanosis/clubbing/edema
Neuro: nonfocal
--- NOTE | 2025-02-19 09:00 | PTCARENOTE ---
Dr. Woodard at bedside, changed dressing, Patient to remain NPO and NGT to remain in place today. patient may get OOB. consult to be placed for PT OT
--- NOTE | 2025-02-19 09:10 | PN.DE.MGMTRT ---
Insulin Management
- -
02/19/2025: Diabetes Management Follow up
Patient admitted 01/27 with abdominal pain and SOB PMH: A-fib, hyperthyroidism, chronic HFrEF, LLE arterial occlusion due to thromboembolism (06/2023), h/o acute limb ischemia of RLE with thromboembolic occlusion of the right iliac system s/p
thromboembolectomy of the right iliac system + thromboembolectomy of the right SFA, popliteal artery. Prior to admission was taking Jardiance 10mg daily. A1C 6.3%, Cr 1.1, eGFR >60.
CTA showed thrombosis of the SMA s/p ex lap with thromboembolectomy of SMA and placement of an AbThera Vac 01/27/25. Postoperatively he was started on the glycemic protocol due to hyperglycemia.
Pt was extubated 02/18, awake, alert, oriented, able to discuss diabetes care plan. No Family at bedside.
POD # 8 s/p exp lap, mesenteric ischemia, abdominal washout. POD #12 s/p exp lap with small bowel resection.
POD #21 s/p abd closure. POD# 22 s/p exp lap, mesenteric angiography, partial omentectomy, tap block, abdominal closure
Remains NPO with NGT, on TPN. Transitioned off glycemic protocol on 02/10 at 7AM to moderate corrective Q6 hrs
Glucose stable and in range, 145 to 155, FBG 137 V this AM, required only 1 unit of corrective insulin @ noon yesterday.
Will make no changes to current regimen: Cont moderate corrective Q6 hrs
Discussed with nurse. Will cont to follow.
Diabetes History
- -
Type of Diabetes: 2
Pre-Admission Diabetes Regimen
02/18/25 02/19/25
12:02 05:17
Creatinine 0.9 0.9
Lab Results
Hemoglobin A1c 6.3 % (4.0-5.6) H 01/27/25 14:42
Insulin Pump Settings
IP Diabetes Regimen
02/18/25 02/18/25 02/18/25
11:47 12:02 17:46
Glucose 162 H
POC Glucose 155 H 145 H
02/19/25 02/19/25
00:00 05:17
Glucose 137 H
POC Glucose 139 H
Patient Education
[2025-02-19] MEDS: KCL 270 MEQ IV (09:43)
--- NOTE | 2025-02-19 10:00 | W.PN.HOSP.TC ---
Today's Communication/Plan
-
Stable for telemetry
Assessment / Plan
Assessment / Plan
59M hx dilated cardiomyopathy, EF 5-10%, afib LV thrombus on AC non-compliant, left lower extremity arterial occlusion due to thromboembolism 07/06 and acute limb ischemia RLE s/p thromboembolectomy 11/06 presented to the ER with abdominal pain and
shortness of breath. 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 Post-op course complicated with
ileus.
A/P:
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
Post-op Ileus
Fever unknown origin possibly infectious vs drug fever
-appreciate vascular, CRS, Offshore Diver consults
-s/p OR 01/27: thromboembolectomy of SMA, placement ABThera Vac
-s/p OR 01/28: exploratory laparotomy, mesenteric angiography, partial omentectomy, tap block, abdominal closure
-s/p IV Zosyn - completed 7 day course, however fever/leukocytosis persist
-TPN initiated on 02/02
-02/07, CT abdomen and pelvis showed new mild intraperitoneal free air indicating a perforated viscus
-s/p OR 02/07: exploratory laparotomy, small bowel resection, lysis of adhesions, placement of ABThera wound VAC
-ID eval appreciated micafungin completed, empiric IV zosyn switched to meropenem, later switched to Vancomycin d/t Enterococcus faecium noted in wound culture
-Returned to OR with CRS 02/11/2025 exploratory lap, small bowel anastomosis, abd wall closure, bilateral cutaneous advancement flaps,repeat wound culture results pending
-02/13/25 developed increased abd distension firmness w/ associate drop in hgb overnight, CRS eval appreciated 200-300 mL of dark sanguinous blood expressed from midline wound likely subcutaneous bleed, abd binder applied and hep gtt briefly held
since resumed
-Continue NPO, NGT, TPN, IV abx as per ID
-Trend fever and white count
Anemia
Acute blood Loss anemia 2/2 surgical procedures, subcutaneous bleed as above
Iron Studies appreciated Anemia of Chronic Disease
B12 Folate non-deficiency
02/17 Hgb drifted down to 7.3 responded well to 1PRBC transfusion, increased to 8.3
Monitor hemoglobin, transfuse as needed
Hypoxic Respiratory Failure status post intubation
-Appreciate water conservationist input, continue vent management as per water conservationist
-failed multiple attempts to wean off ventilator.
-Offshore Diver Update Note 02.15.25 discussion with family (sister Keyla) appreciated
-Extubated 02/18, now on RA
Hypokalemia
Hypophosphatemia
-monitor and replete as necessary
Toxic metabolic encephalopathy
-Monitor
Permanent AFIB with RVR
Left atrial appendage thrombus
-Status post Cardizem drip
-appreciate Cardiology, continue IV amiodarone drip, IV heparin drip, IV metoprolol
-resume Metoprolol when able to take PO
-resume Eliquis when confirm no need for further procedures
Acute on chronic HFrEF (EF 5-10%)
-hold CLEANING ATTENDANT Entresto and Metop XL until patient can take PO meds
-Trend creatinine, trend daily weights
-02/14 ECHO appreciated EF10-15% mod MR TR no significant change from prior ECHO
-IV lasix as per cardio water conservationist
-BNP significantly increased [id number]
-IV lasix increased to 40 mg TID on 02/18
Bacteruria
-UA on 02/05/25 with bacteuria
-Was on Rocephin, changed to Zosyn, then meropenem, now on vancomycin as above
Hyperthyroid--new diagnosis last admission?--on methimazole but would hold for now
-repeat TSH here Low but T4 wnl
-cont methimazole hold
-suspect euthyroid-sick syndrome
-repeat TFTs in 1 month
Type 2 diabetes
-well controlled on sliding scale
-cont glycemic control
PAD
Active smoker
smoking cessation counseled
DVT proph - IV heparin drip
Code status - Full Code
Total time spent to see the patient on the floor, examine the patient, review data and lab results, discuss treatment plan with patient, nursing staff around 51 minutes.
Physical Exam
General: Obese no acute distress
HEENT: Normocephalic, Atraumatic
Respiratory: Clear to Auscultation bilaterally
Cardiac: Normal S1/S2, irregular irregular rhythm
GI: Soft, distended, incision dressed
Extremities: No Clubbing, No Cyanosis
Neuro: awake alert following commands
Anticipated Discharge: > 48 hours
Subjective/Interval History
-
Date of Service: February 18, 2025
Patient denies chest pain, denies shortness of breath. Does have moderate abdominal pain. Reports passing gas and having liquid stool. No nausea, no vomiting. Fever resolved.
Objective Data
-
Labs:
Laboratory Results
02/18/25 02/18/25 02/18/25
03:53 12:02 18:30
WBC 12.2 H
Hgb 8.0 L
Hct 25.2 L
Plt Count 378
APTT 116.7 H 98.7 H Pending
Sodium 143 143
Potassium 3.2 L 3.4 L
Chloride 108 H 108 H
Carbon Dioxide 29 33 H
BUN 41 H 42 H
Creatinine 0.9 0.9
Glucose 151 H 162 H
Calcium 8.0 L 8.0 L
Total Bilirubin 4.5 H
AST 55
ALT 77 H
Alkaline Phosphatase 131 H
Vital Signs:
Vital Signs
Temp Pulse Resp BP Pulse Ox
98.2 F 74 17 111/79 99
02/18/25 15:14 02/18/25 15:00 02/18/25 15:00 02/18/25 13:19 02/18/25 15:00
I&O
02/17/25 02/18/25 02/19/25
06:59 06:59 06:59
Intake Total 3597.7 / 4251.1 4599.6 / 4727.8 1144.8 / 1144.8
Output Total 3762 / 3822 5385 / 5485 800 / 800
Balance -164.3 / 429.1 -785.4 / -757.2 344.8 / 344.8
--- NOTE | 2025-02-19 11:29 | W.PN.CRS1 ---
Today's Communication / Plan
-
continue TPN
maintain NGT
Assessment/Plan
-
59-year-old male with PMH of A-fib (on Eliquis), hypothyroidism, PVD (s/p LLE thrombectomy 2022, RLE thrombectomy 2023) who presented with acute abdominal pain and found to have SMA occlusion
01/27/2025- Ex lap, SMA thromboembolectomy, open abdomen
01/28/2025- Take-back, mesenteric angiography, partial omentectomy, tap block, abdominal closure
02/07/2025- Exlap, SBR (120cm), lysis of adhesions, placement of ABThera wound VAC
02/08/2025- Take-back, abdominal washout, mesenteric angiography with spy, placement of ABThera VAC
02/11/2025- Take-back, small bowel anastomosis, bilateral cutaneous advancement flaps, abdominal wall closure
Having bowel function
Tmax 102, VSS
WBC 15.6 (12.2), Hb 8.6 (8.8)
- Mesenteric ischemia, c/b perforation and 120cm of necrotic bowel, s/p open abdomen, s/p SB anastomosis with abdominal closure
-C/b subQ bleeding, stopped after applying binder and holding hepgtt x24 hrs; cont abdominal binder
�S/p pRBC on 02/17, Hb stable today, cont hep gtt
�Continue n.p.o. with NGT
� Continue TPN, ok to transition to TFs
� Appreciate ID, cont abx
� Appreciate hospitalist
Subjective Data
Procedure
01/27/2025- Ex lap, SMA embolectomy
01/28/2025- Exploratory laparotomy, mesenteric angiography, partial omentectomy, tap block, abdominal closure
02/07/2025- Exploratory laparotomy, small bowel resection, lysis of adhesions, placement of ABThera wound VAC
02/08/2025- Exploratory laparotomy, abdominal washout, mesenteric angiography with spy, placement of ABThera VAC
02/11/2025- exlap, small bowel anastomosis, abdominal wall closure, bilateral cutaneous advancement flaps
Subjective Data
Date of Service: February 19, 2025
Patient states he is thirsty. He has no other complaints. His pain is controlled.
Objective Data
-
Vital Signs
Temp Pulse Resp BP Pulse Ox
97.9 F 71 18 145/90 99
02/19/25 08:00 02/19/25 07:40 02/19/25 06:00 02/19/25 07:40 02/19/25 08:00
Intake & Output
02/18/25 02/19/25 02/20/25
06:59 06:59 06:59
Intake Total 4599.6 / 4727.8 3181.3 / 3298.0 350.1 / 350.1
Output Total 5385 / 5485 4845 / 4845 1050 / 1050
Balance -785.4 / -757.2 -1663.7 / -1547.0 -699.9 / -699.9
Intake:
Oral fluids 0 / 0
IV fluids (Total) 1363.6 / 1422.8 1178.3 / 1225.0 140.1 / 140.1
Amiodarone 400.8 / 417.5 400.8 / 417.5 50.1 / 50.1
Heparin 768 / 799 743 / 773 90 / 90
Precedx 194.8 / 206.3 34.5 / 34.5
IV piggybacks 1060 / 1060 250 / 250
TPN/PPN 1656 / 1725 1663 / 1733 210 / 210
Amount instilled into GI Tube ( 150 / 150 90 / 90
Total)
[place] S[place] 150 / 150 90 / 90
Fecal management system 120 / 120
irrigation (mL)
Rectum 120 / 120
Blood Product Amount Infused ( 250 / 250
mL)
Packed Rbc Leukoreduced Unit 250 / 250
[id number]
Output:
Liquid stool amount 1000 / 1000
Rectum 1000 / 1000
Drain Output (Total)
[facility]
Gastrointestinal tube output ( 0 / 0 225 / 225
Total)
[place] Sump 0 / 0 225 / 225
Urine, [place] 4365 / 4465 800 / 800
Urine, Voided 3800 / 3800 1050 / 1050
Other:
Number of unmeasured liquid
stools
Rectum 3
Lab Results
02/19/25 05:17
02/19/25 05:17
Physical Exam
-
General: No Acute Distress
Abdomen: Soft, Non Distended, Tender (around midline) and Other (colostomy warm and pink)
Wound: Dressing Changed (mild serous discharge in the middle of incision)
[2025-02-19 12:01] LABS: Glucose - Point of Care 150 mg/dl (70-99)
--- NOTE | 2025-02-19 12:16 | W.PN.ID1 ---
Date of Service
Date of Service: February 19, 2025
Today's Communication
Continue antibiotics.
Assessment / Plan
Persistent fevers
Leukocytosis
Mesenteric ischemia with perforation and necrotic bowel
- s/p washout and primary abdominal closure (02/11/2025)
VDRF
Severely dilated cardiomyopathy with markedly diminished EF
Hx A-fib
Recommendations:
Multiple possible etiologies of fever and leukocytosis, including drug fever, versus ongoing abdominal process.
- Given persistence of fever, drug fever suspected.
-Additionally, it is noted that all prior elevated temperatures were 'core temperatures', but now the normal temperatures are noted to be axillary/oral. ?thermistor error?
- Fevers now normalized
Duplex ultrasound positive for left mid brachial vein, although doubt that this is the etiology of the ongoing fever.
Wound culture noted to be positive with Enterococcus (amp resistant)
Continue vancomycin (d#4). Monitor levels closely to prevent nephrotoxicity.
Follow white count and temperature curve.
Continue with supportive care.
����������������������������������������������������������
Chief Complaint
-: Fever and Leukocytosis
Subjective / Review of Systems
Patient seen and examined. Remains extubated at this time. Denies pain. Notes he feels 'cooler'.
Vital Signs / Physical Exam
Vital Signs
Vital Signs
Temp Pulse Resp BP Pulse Ox
97.9 F 71 18 145/90 99
02/19/25 08:00 02/19/25 07:40 02/19/25 06:00 02/19/25 07:40 02/19/25 08:00
Physical Exam
Constitutional: Acutely Ill and Non-toxic
Oropharyngeal: Other (NG tube in place.)
Cardiovascular: Regular Rate and S1/S2; Negative S3/S4
Pulmonary: Clear
Gastrointestinal: Soft, Decreased Bowel Sounds, No Rebound, No Guarding and Other (Abdominal binder in place. FMS in place)
Genito-Urinary: [place] and Clear Urine
Extremities: Edema (2+ bilateral lower extremity edema); Negative Cyanosis or Erythema
Neurological: Awake
Psychological: Calm
Lines: PICC (LUE midline; RUE PICC line)
Objective Data
Lab Data
Lab Results
02/19/25 05:17
02/19/25 05:17
PT 15.6 Sec (11.4-14.6) H 02/14/25 04:43
INR 1.19 02/14/25 04:43
APTT 112.6 Sec (23.4-35.0) H 02/19/25 05:17
Estimated Creat Clear 114 ml/min 02/19/25 05:17
Lactic Acid 1.1 mmol/L (0.7-2.0) 02/09/25 04:00
Total Bilirubin 4.5 mg/dl (0.2-1.3) H 02/18/25 03:53
AST 55 U/L (17-59) 02/18/25 03:53
ALT 77 U/L (0-50) H 02/18/25 03:53
Alkaline Phosphatase 131 U/L (38-126) H 02/18/25 03:53
Most recent labs reviewed.
Micro Results:
02/11/25 15:30 Fungal Culture - Preliminary
Other-Please specify - Other Yeast
02/17/25 09:06 C. difficile GDH Antigen & Toxins - Final
Feces/Stool Negative for toxigenic C.difficile
02/11/25 15:30 Wound Culture - Final
Abdomen Enterococcus faecium
Gram Stain - Final
02/11/25 15:30 Anaerobic Culture - Final
Other-Please specify - Other NO ANAEROBES ISOLATED
02/11/25 13:11 Blood Culture - Final
Blood/Venous No Growth - Final Report
02/14/25 13:46 Respiratory Culture - Final
Tracheal Aspirate Usual Respiratory Shireen
Gram Stain - Final
02/07/25 18:36 Blood Culture - Final
Blood/Venous No Growth - Final Report
02/11/25 14:22 C. difficile GDH Antigen & Toxins - Final
Feces/Stool Negative for toxigenic C.difficile
02/11/25 10:41 Influenza Types A & B (SHERLYN) - Final
Nasal Swab Negative for Influenza A & B, NAAT
Negative results must be combined with clinical observations
and patient history.
Nucleic Acid Amplification test (NAAT)performed on the
[employer] platform.
02/09/25 09:21 Urine Culture - Final
Urine NO GROWTH
01/27/25 12:14 Blood Culture - Final
Blood/Venous No Growth - Final Report
01/27/25 21:32 MRSA Screen - Final
Nose No Methicillin Resistant Staphylococcus aureus isolated.
Wound/abscess/other Cult Preliminary 02/16/25-907
Moderate Enterococcus faecium
Moderate Diptheroids
Organism 1 Enterococcus faecium
1. Enterococcus faecium
M.I.C. RX
--------- ---
Ampicillin >8 R
Daptomycin >4 R
Gentamicin Synergy Screen <=500 S
Linezolid 2 S
Vancomycin 1 S
Imaging:
02/13/2025 CXR (portable): Mild haziness in the right medial lower lung field. Poor visualization of the medial left hemidiaphragm. No pleural effusion or pneumothorax noted.
02/11/2025 CXR (portable): Hazy opacification along both lower lungs without significant change. No significant pleural effusion is noted.
Care Review
Plan reviewed with: Nurse
[2025-02-19] MEDS: NOVOLOG FLEXPEN-MODERATE RESISTANCE 1 UNITS SC ×2 (12:28→18:40)
--- NOTE | 2025-02-19 13:28 | PTCARENOTE ---
Patient written for tele status.
[2025-02-19 14:02] LABS: APTT 110.8 Sec (23.4-35.0)
[2025-02-19] MEDS: KCL 160 MEQ IV (16:49)
[2025-02-19] MEDS: VANCOCIN IV (17:16)
[2025-02-19 18:38] LABS: Glucose - Point of Care 168 mg/dl (70-99)
--- NOTE | 2025-02-19 19:55 | PTCARENOTE ---
pt transferred to this afternoon to this RN. pt getting TPN and amio through R PICC, and heparin that remains therapeutic through a L midline. pt intermittently agitated at bedside. redirectable. CC remains inplace. NGT connected to low
continuous suction. NGT irrigated by this nurse per order this afternoon and KIKI drain assessed as well as FMS. see worklist for appropriate documentation of output and care.
stat KCl hung this afternoon for this nurse, see MAR for proper documentation. pt placed on bed alarm due to impulsiveness. pt trying to get out of bed ' to go to work'
[2025-02-19] MEDS: Parenteral Nutrition, Central 1660 IV (21:23)
[2025-02-19 22:23] LABS: APTT 84.7 Sec (23.4-35.0)
--- NOTE | 2025-02-19 23:35 | TRANSFER ---
Pt requiring a significant amount of care/attention, not conducive with a 5 patient telemetry assignment. D/w nursing aluminum boat assembly supervisor and covering UPPER DOUBLER, pt to be transferred to IMU for closer monitoring. Report called to CARROL Landis. Pt 2 transporter radiology to
room 3355.
[2025-02-19 23:36] LABS: Glucose - Point of Care 281 mg/dl (70-99)
--- NOTE | 2025-02-19 23:42 | PTCARENOTE ---
Patient arrived into room 3355. Report received from CARROL Torres. Patient confused asking for beer. Re-oriented to place,time and situation. Stage 2 to gluteal cleft; appears to be healing. approx size of nickel. Wound consult placed. Abd binder in
place, dressing CDI. NGT placed to suction. Afib on tele. 94-95% on RA, lungs dim, RLL slightly coarse. Heparin/ Amio/ TPN infusing. FMS intact. Bed alarm set. Call marshall within reach.
[2025-02-20] VITALS (12 sets, daily range): BP systolic 102–146; BP diastolic 70–131; BMI 33.3
[2025-02-20] MEDS: NOVOLOG FLEXPEN-MODERATE RESISTANCE 5 UNITS SC (00:12)
[2025-02-20] MEDS: LOPRESSOR 7.5 MG IV ×4 (00:12→17:49)
--- NOTE | 2025-02-20 00:36 | PTCARENOTE ---
Bipap placed by RT. pt pulled off immediately. back on RA 96%.
[2025-02-20] MEDS: HEPARIN 25000 UNITS/250 ML IV ×3 (01:34→18:58)
[2025-02-20] MEDS: ATIVAN 0.5 MG IV (02:54)
--- NOTE | 2025-02-20 02:59 | PTCARENOTE ---
Patient becoming increasingly agitated and restless. when staff was attempting to reorient pt and calm him down, pt stated 'fuck off'. Pt pulling at NGT and IV lines. JEANINE Doan aware. Bilateral wrist restraints applied. PRN Ativan administered per
the MAR for agitation. RN sitting at closest nursing station. Bed alarm set for safety.
[2025-02-20 06:04] LABS: Glucose - Point of Care 128 mg/dl (70-99)
[2025-02-20] MEDS: NOVOLOG FLEXPEN-MODERATE RESISTANCE SC ×2 (06:10→12:17)
[2025-02-20 06:12] LABS: Hematocrit 27.1 % (39.0-52.0); Hemoglobin 8.6 g/dL (13.0-18.0); Mean Corp Hgb Conc. 31.7 g/dL (33.0-37.0); Mean Corpuscular Hgb 32.6 pg (27.0-31.0); Mean Corpuscular Volume 102.7 fL (80.0-94.0); Mean Platelet Volume 10.7 fL (7.4-10.4); Platelet Count 448 10^3/uL (130-400); Red Blood Cell Count 2.64 10^6/uL (4.70-6.10); Red Cell Dist. Width 18.4 % (11.5-14.5); White Blood Cell Count 14.9 10^3/uL (4.8-10.8)
[2025-02-20] MEDS: VANCOCIN 275 MG IV ×2 (06:12→18:18)
[2025-02-20 06:25] LABS: APTT 105.8 Sec (23.4-35.0)
[2025-02-20 06:31] LABS: ALT (SGPT) 75 U/L (0-50); AST (SGOT) 38 U/L (17-59); Alkaline Phosphatase 130 U/L (38-126); Blood Urea Nitrogen 35 mg/dl (9-20); Carbon Dioxide 33 mmol/L (22-30); Chloride 109 mmol/L (98-107); Estimated Creatinine Clearance 112 ml/min; Glucose 130 mg/dl (70-99); Magnesium 1.9 mg/dl (1.6-2.3); Phosphorus 2.7 mg/dl (2.5-4.5); Potassium 3.1 mmol/L (3.5-5.1); Sodium 146 mmol/L (135-145); Total Bilirubin 3.9 mg/dl (0.2-1.3); eGFR > 60.00
--- NOTE | 2025-02-20 07:34 | PTCARENOTE ---
Pt received in restraints , R dual PICC . L midline and L peripheral. L nare NGT and R KIKI drain and FMS and 25 CC. Pt is agitated and uncooperative. Pt has abd incision mid line with dressing intact. Pt in AFIB
--- NOTE | 2025-02-20 08:18 | PHA.VAN.FU ---
Addendum entered and electronically signed by Jojo Roth RPH 02/22/25 16:37:
02/21/2025 note (entered by resident Lukas Alamo) did not save.
Pertinent information from 02/21/25:
Laboratory Tests
02/20/25 02/21/25
22:15 06:12
BUN 42 H
Creatinine 0.9
Estimated Creat Clear 112
Vancomycin Peak 31.2 H
Vancomycin Trough 20.5 H*
- Assessment - Therapeutic Drug Monitoring
Extrapolated Cmax (mcg/mL): 35.5
Peak level was drawn: Appropriately (drawn ~2.45H after end of previous infusion)
Extrapolated Cmin (mcg/mL): 20.4
Trough Drawn: Appropriately
Levels were drawn: At steady state (levels drawn after 5th dose of current regimen)
Calculated AUC (mcg*h/mL): 656
Calculated ke: 0.0528
Calculated half life (H): 13.1
Calculated Vd (L): 72
Calculated Vanc CL (ml/min): 63
Dosing Assessment / Plan
Patient with supratherapeutic AUC & trough on Vanc 1250mg Q12H
Half-life greater than dosing interval (13.1H)
Patient with accumulation despite decreasing in dosing
Due to elevated trough - will switch to dosing by level to ensure patient adequately clearing vancomycin
Received scheduled 0600 dose of Vancomycin 1250mg dose 02/21 06:22 - hold off on further dosing today
Patient likely will require Q24H dosing interval but will follow levels initially
Original Note:
Vancomycin Assessment / Plan
- Assessment
Renal Function: Stable (0.9)
WBC's are: Trending Down (15.6->14.9)
In the past 24 hrs, patient has been: Afebrile
- Dosing Plan
Continue: Vanco 1250mg Q12H
- Monitoring Plan
Peak Level: Level 02/20/25 2130
Trough Level: Level 02/21/25529
Monitoring Comments: Levels to be drawn after 5th dose of new regimen
- Follow Up
Pharmacy will continue to follow.
Vancomycin Follow UP
- -
Patient Age: 59
Patient Sex: Male
Vancomycin Day #: 5
Indication: Gi / Intra-Abdominal
Requesting Provider: Irina Bruno
Height / Weight:
Height 6 ft
Actual Weight 111.2 kg
IBW in k.6
Adjusted BW in k.4 (BMI 34.2)
Pertinent Past Medical History: mesenteric ischemia w/perf; intubated
- Vital Signs / Lab Results
Temp Pulse Resp BP Pulse Ox
98.1 F 93 20 140/101 95
02/20/25 07:44 02/20/25 07:44 02/20/25 07:44 02/20/25 06:07 02/20/25 07:44
Lab Results - Hematology
02/18/25 02/19/25 02/20/25
03:53 05:17 05:53
WBC 12.2 H 15.6 H 14.9 H
Lab Results - Chemistry
02/18/25 02/18/25 02/19/25
03:53 12:02 05:17
BUN 41 H 42 H 42 H
Creatinine 0.9 0.9 0.9
Estimated Creat Clear 114 114 114
Albumin 1.8 L
02/20/25
05:53
BUN 35 H
Creatinine 0.9
Estimated Creat Clear 112
Albumin 2.0 L
Microbiology Results
02/11/25 15:30 Fungal Culture - Preliminary
Other-Please specify - Other Yeast
Therapeutic Drug Monitoring
Vancomycin Peak 29.7 ug/ml (18-26) H 02/17/25 21:17
Vancomycin Trough 18.0 ug/ml (5-20) 02/18/25 03:53
[2025-02-20] MEDS: NSS (PRESERVATIVE FREE) 10 ML IV (08:38)
[2025-02-20] MEDS: PROTONIX IV 40 MG IV (08:39)
[2025-02-20] MEDS: LASIX 40 MG IV (08:39)
--- NOTE | 2025-02-20 08:44 | W.PN.CRS1 ---
Today's Communication / Plan
-
as below
Assessment/Plan
-
59-year-old male with PMH of A-fib (on Eliquis), hypothyroidism, PVD (s/p LLE thrombectomy 2022, RLE thrombectomy 2023) who presented with acute abdominal pain and found to have SMA occlusion
01/27/2025- Ex lap, SMA thromboembolectomy, open abdomen
01/28/2025- Take-back, mesenteric angiography, partial omentectomy, tap block, abdominal closure
02/07/2025- Exlap, SBR (120cm), lysis of adhesions, placement of ABThera wound VAC
02/08/2025- Take-back, abdominal washout, mesenteric angiography with spy, placement of ABThera VAC
02/11/2025- Take-back, small bowel anastomosis, bilateral cutaneous advancement flaps, abdominal wall closure
AFVSS
WBC 14.9 from 15.6, Hb 8.6 from 8.6, CR 0.9, tbili 3.9 from 4.5
- Mesenteric ischemia, c/b perforation and 120cm of necrotic bowel, s/p open abdomen, s/p SB anastomosis with abdominal closure
-C/b subQ bleeding, resolved; cont abd binder
�S/p pRBC on 02/17, Hb stable, cont hep gtt
-Appreciate ICU
-Extubated 02/19
-Cont pain control
-MAP >65
-Monitor LFTs, elevated tbili likely due to ischemic injury, but improving
�Continue n.p.o.; perform clamp trial; if less than 150mL after 4 hrs, ok to pull and start sips
-Keep rectal tube today, but would like to get that out in the next 1-2 days
� Continue TPN until tolerating solid food
� Appreciate ID, cont abx
� Appreciate hospitalist
Subjective Data
Procedure
01/27/2025- Ex lap, SMA embolectomy
01/28/2025- Exploratory laparotomy, mesenteric angiography, partial omentectomy, tap block, abdominal closure
02/07/2025- Exploratory laparotomy, small bowel resection, lysis of adhesions, placement of ABThera wound VAC
02/08/2025- Exploratory laparotomy, abdominal washout, mesenteric angiography with spy, placement of ABThera VAC
02/11/2025- exlap, small bowel anastomosis, abdominal wall closure, bilateral cutaneous advancement flaps
Subjective Data
Date of Service: February 20, 2025
Patient was extubated yesterday. Rectal tube was placed yesterday and has liquid stool. Denies any N/V. Pain persistent but somewhat controlled.
Objective Data
-
Vital Signs
Temp Pulse Resp BP Pulse Ox
98.1 F 96 20 134/94 95
02/20/25 07:44 02/20/25 08:39 02/20/25 07:44 02/20/25 08:39 02/20/25 07:44
Intake & Output
02/19/25 02/20/25 02/21/25
06:59 06:59 06:59
Intake Total 3181.3 / 3298.0 3311.9 / 3311.9
Output Total 4845 / 4845 3565 / 3565
Balance -1663.7 / -1547.0 -253.1 / -253.1
Intake:
Oral fluids 360 / 360
IV fluids (Total) 1178.3 / 1225.0 1591.9 / 1591.9
Amiodarone 400.8 / 417.5 116.9 / 116.9
Heparin 743 / 773 210 / 210
Precedx 34.5 / 34.5
IV piggybacks 250 / 250
TPN/PPN 1663 / 1733 1330 / 1330
Amount instilled into GI Tube ( 90 / 90
Total)
[place] Sump 90 / 90
Fecal management system 30 / 30
irrigation (mL)
Rectum 30 / 30
Output:
Liquid stool amount 1250 / 1250
Rectum 1250 / 1250
Drain Output (Total)
[facility]
Gastrointestinal tube output ( 225 / 225 250 / 250
Total)
[place] Sump 225 / 225 250 / 250
Urine, [place] 800 / 800
Urine, Voided 3800 / 3800 2049
Other:
How many times incontinent 1
MODERATE amount urine
How many times incontinent 1
SATURATED amount urine
Lab Results
02/20/25 05:53
02/20/25 05:53
Physical Exam
-
General: No Acute Distress and AOx3
HEENT: Grossly Normal
Abdomen: Soft, Non Distended, Tender (Mildly to moderately tender near midline incision), No Guarding, No Rebound and Other (KIKI-serosanguineous output)
Skin: Warm and Dry
Wound: No Signs of Infection, Dressing in Place, No Skin Erythema and Other (Skin edges well-approximated, bry intact)
--- NOTE | 2025-02-20 09:19 | W.PN.HOSP.TC ---
Today's Communication/Plan
-
For clamp trial today
Assessment / Plan
Assessment / Plan
59M hx dilated cardiomyopathy, EF 5-10%, afib LV thrombus on AC non-compliant, left lower extremity arterial occlusion due to thromboembolism 07/06 and acute limb ischemia RLE s/p thromboembolectomy 11/06 presented to the ER with abdominal pain and
shortness of breath. 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 Post-op course complicated with
ileus.
A/P:
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
Post-op Ileus
Fever unknown origin possibly infectious vs drug fever
-appreciate vascular, CRS, Specification Writer consults
-s/p OR 01/27: thromboembolectomy of SMA, placement ABThera Vac
-s/p OR 01/28: exploratory laparotomy, mesenteric angiography, partial omentectomy, tap block, abdominal closure
-s/p IV Zosyn - completed 7 day course, however fever/leukocytosis persist
-TPN initiated on 02/02
-02/07, CT abdomen and pelvis showed new mild intraperitoneal free air indicating a perforated viscus
-s/p OR 02/07: exploratory laparotomy, small bowel resection, lysis of adhesions, placement of ABThera wound VAC
-ID eval appreciated micafungin completed, empiric IV zosyn switched to meropenem, later switched to Vancomycin d/t Enterococcus faecium noted in wound culture
-Returned to OR with CRS 02/11/2025 exploratory lap, small bowel anastomosis, abd wall closure, bilateral cutaneous advancement flaps,repeat wound culture results pending
-02/13/25 developed increased abd distension firmness w/ associate drop in hgb overnight, CRS eval appreciated 200-300 mL of dark sanguinous blood expressed from midline wound likely subcutaneous bleed, abd binder applied and hep gtt briefly held
since resumed
-Continue NPO, NGT, TPN, IV abx as per ID
-Fevers resolved as of 02/19 on vanc (although ID suspects drug fever)
-For clamp trial today, trend fever and white count
Anemia
Acute blood Loss anemia 2/2 surgical procedures, subcutaneous bleed as above
Iron Studies appreciated Anemia of Chronic Disease
B12 Folate non-deficiency
Status post 1 unit packed red blood cells 02/17, hemoglobin improved to greater than 8 from 7.3
Monitor hemoglobin, transfuse as needed
Hypoxic Respiratory Failure status post intubation
-Appreciate supervisor powdered metal input, continue vent management as per supervisor powdered metal
-failed multiple attempts to wean off ventilator.
-Specification Writer Update Note 02.15.25 discussion with family (sister Keyla) appreciated
-Extubated 02/18, now on RA
Hypokalemia
Hypophosphatemia
-monitor and replete as necessary
Toxic metabolic encephalopathy
-Monitor
Permanent AFIB with RVR
Left atrial appendage thrombus
-Status post Cardizem drip
-appreciate Cardiology, continue IV amiodarone drip, IV heparin drip, IV metoprolol
-resume Metoprolol when able to take PO
-resume Eliquis when confirm no need for further procedures
Acute on chronic HFrEF (EF 5-10%)
-hold CLINICAL INFORMATICIST Entresto and Metop XL until patient can take PO meds
-Trend creatinine, trend daily weights
-02/14 ECHO appreciated EF10-15% mod MR TR no significant change from prior ECHO
-IV lasix as per cardio supervisor powdered metal
-BNP significantly increased 32656
-IV lasix reduced to 40 mg daily 02/19
Bacteruria
-UA on 02/05/25 with bacteuria
-Was on Rocephin, changed to Zosyn, then meropenem, now on vancomycin as above
Hyperthyroid--new diagnosis last admission?--on methimazole but would hold for now
-repeat TSH here Low but T4 wnl
-cont methimazole hold
-suspect euthyroid-sick syndrome
-repeat TFTs in 1 month
Type 2 diabetes
-well controlled on sliding scale
-cont glycemic control
PAD
Active smoker
smoking cessation counseled
DVT proph - IV heparin drip
Code status - Full Code
Total time spent to see the patient on the floor, examine the patient, review data and lab results, discuss treatment plan with patient, nursing staff around 50 minutes.
Physical Exam
General: Obese no acute distress
HEENT: Normocephalic, Atraumatic
Respiratory: Clear to Auscultation bilaterally
Cardiac: Normal S1/S2, irregular irregular rhythm
GI: Soft, distended, incision dressed
Extremities: No Clubbing, No Cyanosis
Neuro: awake alert following commands
Anticipated Discharge: > 48 hours
Subjective/Interval History
-
Date of Service: February 19, 2025
Patient reports his abdominal pain is tolerable. Denies nausea, denies vomiting. Continues to pass gas and stool. No shortness of breath, no chest pain. Fever resolved.
Objective Data
-
Labs:
Laboratory Results
02/19/25 02/19/25
05:17 13:44
WBC 15.6 H
Hgb 8.6 L
Hct 27.1 L
Plt Count 441 H
APTT 112.6 H 110.8 H
Sodium 145
Potassium 3.0 L
Chloride 107
Carbon Dioxide 34 H
BUN 42 H
Creatinine 0.9
Glucose 137 H
Calcium 8.0 L
Vital Signs:
Vital Signs
Temp Pulse Resp BP Pulse Ox
98.4 F 85 17 109/70 98
02/19/25 15:45 02/19/25 15:45 02/19/25 15:45 02/19/25 15:45 02/19/25 15:45
I&O
02/18/25 02/19/25 02/20/25
06:59 06:59 06:59
Intake Total 4599.6 / 4727.8 3181.3 / 3298.0 816.9 / 816.9
Output Total 5385 / 5485 4845 / 4845 1050 / 1050
Balance -785.4 / -757.2 -1663.7 / -1547.0 -233.1 / -233.1
--- NOTE | 2025-02-20 09:25 | W.PN.CARDCBS ---
Today's Communication / Plan
-
Remains in persistent atrial fibrillation.
Continue IV heparin anticoagulation with transition to Eliquis once tolerating p.o.'s. He has multiple embolic events in the past.
Continue to monitor H/H, last transfusion 02/17
Continue IV amiodarone and IV Lopressor and transition to once tolerating p.o.'s
Long-term plan would likely be to repeat transesophageal echo (given large occlusive thrombus in left atrial appendage) if he recovers from abdominal procedures and then make a plan regarding risk of ablation.
Continue pulmonary toilet, status post extubation February 18, 2025
Lasix reduced to 40 mg IV daily.
Cont to replete potassium
Start KCL 40 meq daily.
Cont to monitor Is and Os and daily wts.
He was taking lasix 40 mg BID as outpt.
Continue Vanco for infection, off meropenem and micafungin
ID suspects drug fever.
Sips of clears as per colorectal surgery, NGT clamp trial
He has had 3 cardiac embolic events in the past 9 months felt to be due to noncompliance.
Long-term prognosis is likely poor
Impression / Plan
-
.
Primary Patient Information Coordinator: Dr. Pickett
Primary EP: Dr Solorio
PCP: Dr Peñaloza
HPI: Patient with history of cardioembolic occlusion of left common femoral artery 06/2023, right iliac artery occlusion status post thromboembolectomy 10/29/2024. During that time was also noted to be in persistent rapid A-fib initially discovered
07/2023 with history of noncompliance with medications. Also with known low EF suspected tachycardia mediated status post cath 05/2024 with nonobstructive CAD.
He presented back to the ED 11/2024 due to generalized malaise and was noted to have a seroma of his right groin s/p I/D and wound vac. He was also found to be in decompensated heart failure with reduced ejection fraction and have atrial
fibrillation with rapid ventricular rates. Plan for LUIS ENRIQUE cardioversion but LUIS ENRIQUE 01/04/2025 showed massive occlusive thrombus in left atrial appendage. Most recently, presented on 01/27/2025 with acute onset abdominal pain found to have acute
mesenteric ischemia with SMA occlusion, went to OR for exploratory laparotomy and SMA thrombectomy. Postop shock with metabolic/lactic acidosis, on Levophed and intubated. Cardiology consulted for management of atrial fibrillation and heart failure
Impression:
Acute mesenteric ischemia with SMA occlusion, status post exploratory lap and SMA thrombectomy 01/27/2025 and redo OR 02/07/2025 and OR 02/08/2025
Acute hypoxemic respiratory failure
Shock with metabolic/lactic acidosis
Right groin seroma
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
Persistent atrial fibrillation, first discovered July 2023
Non-OH myocardial injury
Chronic OAC with eliquis
Left atrial appendage thrombus by LUIS ENRIQUE 12/2024
Chronic HFrEF
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
NSVT
Hyperthyroidism
Noncompliance
Depression
History of ETOH and tobacco abuse
Obesity
Ventilator dependent respiratory failure
ECHO 04/04/2024: EF 10 to 15%, severe global hypokinesis, mild MR, trace TR, PAP 30 to 33 mmHg
Cardiac catheterization 05/22/2024: Nonobstructive coronary disease with normal to mildly elevated right and left-sided filling pressures with normal cardiac output
Echocardiogram 10/30/2024: Severely dilated left ventricle, severely reduced LV systolic function, global hypokinesis with ejection fraction of 5-10%, moderate to severe eccentric TR with PA pressure of 30-35 mmHg, small pericardial effusion.
LUIS ENRIQUE 01/04/2025: LVEF 10 to 15%, definite massive occlusive thrombus in left atrial appendage, mild MR, moderate to severe TR
Plan:
Remains in persistent atrial fibrillation.
Continue IV heparin anticoagulation with transition to Eliquis once tolerating p.o.'s. He has multiple embolic events in the past.
Continue to monitor H/H, last transfusion 02/17
Continue IV amiodarone and IV Lopressor and transition to once tolerating p.o.'s
Long-term plan would likely be to repeat transesophageal echo (given large occlusive thrombus in left atrial appendage) if he recovers from abdominal procedures and then make a plan regarding risk of ablation.
Continue pulmonary toilet, status post extubation February 18, 2025
Lasix reduced to 40 mg IV daily.
Cont to replete potassium
Consider start KCL 40 meq daily.
Cont to monitor Is and Os and daily wts.
He was taking lasix 40 mg BID as outpt.
Continue Vanco for infection, off meropenem and micafungin
ID suspects drug fever.
Sips of clears as per colorectal surgery, NGT clamp trial
He has had 3 cardiac embolic events in the past 9 months felt to be due to noncompliance.
Long-term prognosis is likely poor
Discussed with nursing.
Progress Note - Patient Information Coordinator
Subjective
Date of Service: February 20, 2025
Pt seen and examined. No complaints. No chest pain or shortness of breath.
Objective
Labs:
02/20/25 05:53
02/20/25 05:53
Labs
Hgb 8.6 g/dL (13.0-18.0) L 02/20/25 05:53
Hct 27.1 % (39.0-52.0) L 02/20/25 05:53
Plt Count 448 10^3/uL (130-400) H 02/20/25 05:53
PT 15.6 Sec (11.4-14.6) H 02/14/25 04:43
INR 1.19 02/14/25 04:43
APTT 105.8 Sec (23.4-35.0) H 02/20/25 05:53
Sodium 146 mmol/L (135-145) H 02/20/25 05:53
Potassium 3.1 mmol/L (3.5-5.1) L 02/20/25 05:53
BUN 35 mg/dl (9-20) H 02/20/25 05:53
Creatinine 0.9 mg/dL (0.7-1.3) 02/20/25 05:53
Glucose 130 mg/dl (70-99) H 02/20/25 05:53
Vital Signs and I&O:
Vital Signs
Temp Pulse Resp BP Pulse Ox
98.1 F 96 20 134/94 95
02/20/25 07:44 02/20/25 08:39 02/20/25 07:44 02/20/25 08:39 02/20/25 07:44
Vital Signs
Temp Pulse Resp BP Pulse Ox
98.1 F 96 20 134/94 95
02/20/25 07:44 02/20/25 08:39 02/20/25 07:44 02/20/25 08:39 02/20/25 07:44
Intake & Output
02/18/25 02/19/25 02/20/25 02/21/25
06:59 06:59 06:59 06:59
Intake Total 4599.6 / 4727.8 3181.3 / 3298.0 3311.9 / 3311.9
Output Total 5385 / 5485 4845 / 4845 3565 / 3565
Balance -785.4 / -757.2 -1663.7 / -1547.0 -253.1 / -253.1
Physical Exam
Physical Exam
General: No acute distress, AAOX3
Neck: Negative JVD
Heart: Irregularly irregular, Negative S3 positive S1/S2, Negative S4, No murmur
Lungs: CTA b/l, negative wheezes/rales/rhonchi
Abd: Truncal obesity. Positive BS, NT/ND, neg rebound/rigidity/guarding
Ext: Negative cyanosis/clubbing/edema
Neuro: nonfocal
[2025-02-20] MEDS: TORADOL 15 MG IV ×3 (09:30→22:36)
--- NOTE | 2025-02-20 10:21 | PN.DE.MGMTRT ---
Insulin Management
- -
02/20/2025: Diabetes Management Follow up
Patient admitted 01/27 with abdominal pain and SOB PMH: A-fib, hyperthyroidism, chronic HFrEF, LLE arterial occlusion due to thromboembolism (06/2023), h/o acute limb ischemia of RLE with thromboembolic occlusion of the right iliac system s/p
thromboembolectomy of the right iliac system + thromboembolectomy of the right SFA, popliteal artery. Prior to admission was taking Jardiance 10mg daily. A1C 6.3%, Cr 1.1, eGFR >60.
CTA showed thrombosis of the SMA s/p ex lap with thromboembolectomy of SMA and placement of an AbThera Vac 01/27/25. Postoperatively he was started on the glycemic protocol due to hyperglycemia. Pt was extubated 4
Pt awake, alert, oriented, able to discuss diabetes care plan. No Family at bedside.
POD # 9 s/p exp lap, mesenteric ischemia, abdominal washout. POD #13 s/p exp lap with small bowel resection.
POD #22 s/p abd closure. POD# 23 s/p exp lap, mesenteric angiography, partial omentectomy, tap block, abdominal closure
Remains NPO with NGT, on TPN. Transitioned off glycemic protocol on 02/10 at 7AM to moderate corrective Q6 hrs
Noted for elevated blood sugar at MN up to 281, received 5 units aspart, otherwise, glucose stable and in range, 150 to 168, FBG 130 V this AM.
Will make no changes to current regimen: Cont moderate corrective Q6 hrs
Discussed with nurse. Will cont to follow.
Diabetes History
- -
Type of Diabetes: 2
Pre-Admission Diabetes Regimen
02/20/25
05:53
Creatinine 0.9
Lab Results
Hemoglobin A1c 6.3 % (4.0-5.6) H 01/27/25 14:42
Insulin Pump Settings
IP Diabetes Regimen
02/19/25 02/19/25 02/19/25
11:54 18:36 23:24
Glucose
POC Glucose 150 H 168 H 281 H
02/20/25
05:53
Glucose 130 H
POC Glucose 128 H
Meal type: Dinner
Meal type: Lunch
Patient Education
--- NOTE | 2025-02-20 10:42 | PTCARENOTE ---
Pt CHG bath abd dressing changed. pt agitated and abusive .
[2025-02-20] MEDS: KCL 100 IV (10:57)
--- NOTE | 2025-02-20 11:10 | PTCARENOTE ---
Pt now spitting , when asked what he was doing he said Im spitting!
--- NOTE | 2025-02-20 11:21 | WOUNDNOTE ---
[facility] RN note: Patient admitted with abdominal pain, hypokalemia.
See H&P for complete history.
PMH: 10/2024 R iliac thrombectomy, a fib (Eliquis), obesity and R groin surgical wound.
Wound Location and type/assessment: Patient known to service, last seen in November. Now asked to see patient for suspected stage 2 PI in gluteal cleft. Patient turned to sides, requiring 3 assist due to patient being combative. Gluteal cleft with
shallow open area, suspect incontinent associated skin damage. L buttock with tiny shallow open area, pink base. Patient had condom catheter, was pulled off himself and has stool leakage, MASD. Heels are intact.
Appetite: Good.
Pressure redistribution devices in place: air mattress, pillow under calves
Plan: Skin care given and soiled linens changed, sacral silicone foam applied in gluteal cleft and buttocks. Will order fungal powder for skin folds and update care plan, will follow as needed.
Note to case management of equipment requested for discharge: TBD
--- NOTE | 2025-02-20 11:22 | W.PN.ID1 ---
Date of Service
Date of Service: February 20, 2025
Today's Communication
Continue vancomycin.
Assessment / Plan
Persistent fevers
Leukocytosis
Mesenteric ischemia with perforation and necrotic bowel
- s/p washout and primary abdominal closure (02/11/2025)
VDRF
Severely dilated cardiomyopathy with markedly diminished EF
Hx A-fib
Recommendations:
Wound culture noted to be positive with Enterococcus (amp resistant)
Continue vancomycin (d#5). Monitor levels closely to prevent nephrotoxicity.
Follow white count and temperature curve.
Continue with supportive care.
����������������������������������������������������������
Chief Complaint
-: Fever and Leukocytosis
Subjective / Review of Systems
Patient seen and examined. Denies abdominal pain.
Vital Signs / Physical Exam
Vital Signs
Vital Signs
Temp Pulse Resp BP Pulse Ox
98.1 F 96 20 144/114 98
02/20/25 07:44 02/20/25 10:00 02/20/25 10:00 02/20/25 10:00 02/20/25 10:00
Physical Exam
Constitutional: Acutely Ill and Non-toxic
Oropharyngeal: Other (NG tube in place.)
Cardiovascular: Regular Rate and S1/S2; Negative S3/S4
Pulmonary: Clear
Gastrointestinal: Soft, Decreased Bowel Sounds, No Rebound, No Guarding and Other (Abdominal binder in place. FMS in place)
Genito-Urinary: Wilkerson and Clear Urine
Extremities: Edema (2+ bilateral lower extremity edema); Negative Cyanosis or Erythema
Wound: Other (Abdominal wound dressed. No strikethrough.)
Neurological: Awake
Psychological: Calm
Lines: PICC (LUE midline; RUE PICC line)
Objective Data
Lab Data
Lab Results
02/20/25 05:53
02/20/25 05:53
PT 15.6 Sec (11.4-14.6) H 02/14/25 04:43
INR 1.19 02/14/25 04:43
APTT 105.8 Sec (23.4-35.0) H 02/20/25 05:53
Estimated Creat Clear 112 ml/min 02/20/25 05:53
Lactic Acid 1.1 mmol/L (0.7-2.0) 02/09/25 04:00
Total Bilirubin 3.9 mg/dl (0.2-1.3) H 02/20/25 05:53
AST 38 U/L (17-59) 02/20/25 05:53
ALT 75 U/L (0-50) H 02/20/25 05:53
Alkaline Phosphatase 130 U/L (38-126) H 02/20/25 05:53
Most recent labs reviewed.
Micro Results:
02/11/25 15:30 Fungal Culture - Preliminary
Other-Please specify - Other Yeast
02/17/25 09:06 C. difficile GDH Antigen & Toxins - Final
Feces/Stool Negative for toxigenic C.difficile
02/11/25 15:30 Wound Culture - Final
Abdomen Enterococcus faecium
Gram Stain - Final
02/11/25 15:30 Anaerobic Culture - Final
Other-Please specify - Other NO ANAEROBES ISOLATED
02/11/25 13:11 Blood Culture - Final
Blood/Venous No Growth - Final Report
02/14/25 13:46 Respiratory Culture - Final
Tracheal Aspirate Usual Respiratory Shireen
Gram Stain - Final
02/07/25 18:36 Blood Culture - Final
Blood/Venous No Growth - Final Report
02/11/25 14:22 C. difficile GDH Antigen & Toxins - Final
Feces/Stool Negative for toxigenic C.difficile
02/11/25 10:41 Influenza Types A & B (SHERLYN) - Final
Nasal Swab Negative for Influenza A & B, NAAT
Negative results must be combined with clinical observations
and patient history.
Nucleic Acid Amplification test (NAAT)performed on the
[employer] NOW platform.
02/09/25 09:21 Urine Culture - Final
Urine NO GROWTH
01/27/25 12:14 Blood Culture - Final
Blood/Venous No Growth - Final Report
01/27/25 21:32 MRSA Screen - Final
Nose No Methicillin Resistant Staphylococcus aureus isolated.
Wound/abscess/other Cult Preliminary 02/16/25-907
Moderate Enterococcus faecium
Moderate Diptheroids
Organism 1 Enterococcus faecium
1. Enterococcus faecium
M.I.C. RX
--------- ---
Ampicillin >8 R
Daptomycin >4 R
Gentamicin Synergy Screen <=500 S
Linezolid 2 S
Vancomycin 1 S
Imaging:
02/13/2025 CXR (portable): Mild haziness in the right medial lower lung field. Poor visualization of the medial left hemidiaphragm. No pleural effusion or pneumothorax noted.
02/11/2025 CXR (portable): Hazy opacification along both lower lungs without significant change. No significant pleural effusion is noted.
Care Review
Plan reviewed with: Nurse
[2025-02-20 12:32] LABS: Glucose - Point of Care 148 mg/dl (70-99)
--- NOTE | 2025-02-20 12:43 | PTCARENOTE ---
50mml from NGT after clamped four hrs removed as ordered
[2025-02-20] MEDS: CORDARONE 518 MG IV (14:12)
[2025-02-20 17:26] LABS: Glucose - Point of Care 154 mg/dl (70-99)
[2025-02-20] MEDS: NOVOLOG FLEXPEN-MODERATE RESISTANCE 1 UNITS SC (17:50)
[2025-02-20] MEDS: DESENEX/MITRAZOL/ZEASORB 1 APPLIC TOPICAL (17:55)
[2025-02-20] MEDS: Parenteral Nutrition, Central 1660 IV (21:02)
[2025-02-20 22:53] LABS: Vancomycin Peak 31.2 ug/ml (18-26)
--- NOTE | 2025-02-20 22:57 | PTCARENOTE ---
Vanco peak sent. Pt washed, all linens changed. Shaved neck and face w/ electric razor. CHG done. hair washed. pt allowed RN to do oral care. Afib on tele w/ BBB. Denies any pain or N/V. KIKI intact. Abd midline dressing CDI, no drainage. FMS flushed.
Barrier cream applied to tyrese anal area for MASD, foam in place to sacrum. Desenex powder applied to groin. pt pulls off [place] cath, unable to obtain accurate output. Pt resisting perineal care; education provided and reinforced. pt with confused
conversation, asking for a beer. bed alarm set. call marshall within reach. movie put on tv, lights dimmed.
[2025-02-21] VITALS (15 sets, daily range): BP systolic 100–166; BP diastolic 69–113; PULSE 108; O2SAT 94; BMI 33.0
[2025-02-21 00:25] LABS: Glucose - Point of Care 147 mg/dl (70-99)
[2025-02-21] MEDS: LOPRESSOR 7.5 MG IV ×4 (00:26→17:38)
[2025-02-21] MEDS: NOVOLOG FLEXPEN-MODERATE RESISTANCE SC ×3 (00:26→11:50)
[2025-02-21] MEDS: ATIVAN 0.5 MG IV (03:51)
[2025-02-21] MEDS: TORADOL 15 MG IV ×4 (03:51→21:12)
[2025-02-21] MEDS: HEPARIN 25000 UNITS/250 ML IV ×3 (04:09→21:01)
--- NOTE | 2025-02-21 04:16 | PTCARENOTE ---
Patient found with KIKI bulb disconnected and blood on gown and sheets. Pt angry and agitated. pt was able to slide down in bed and reach drain even with wrist restraints in place. pt attempting to grab staff's arms when cleaning and turning pt. swung
arms at PCT. PRN ativan given. KIKI drain bulb replaced with a new one. JEANINE Brower aware of situation.
[2025-02-21] MEDS: VANCOCIN 275 MG IV (06:22)
[2025-02-21 06:32] LABS: Glucose - Point of Care 136 mg/dl (70-99)
[2025-02-21 06:35] LABS: Hematocrit 26.9 % (39.0-52.0); Hemoglobin 8.4 g/dL (13.0-18.0); Mean Corp Hgb Conc. 31.2 g/dL (33.0-37.0); Mean Corpuscular Hgb 32.4 pg (27.0-31.0); Mean Corpuscular Volume 103.9 fL (80.0-94.0); Mean Platelet Volume 10.8 fL (7.4-10.4); Platelet Count 443 10^3/uL (130-400); Red Blood Cell Count 2.59 10^6/uL (4.70-6.10); Red Cell Dist. Width 18.5 % (11.5-14.5)
[2025-02-21 06:50] LABS: Blood Urea Nitrogen 42 mg/dl (9-20); Calcium 8.2 mg/dl (8.4-10.2); Carbon Dioxide 29 mmol/L (22-30); Chloride 112 mmol/L (98-107); Estimated Creatinine Clearance 112 ml/min; Glucose 132 mg/dl (70-99); Magnesium 1.9 mg/dl (1.6-2.3); Phosphorus 3.5 mg/dl (2.5-4.5); Potassium 3.2 mmol/L (3.5-5.1); Sodium 147 mmol/L (135-145); eGFR > 60.00
[2025-02-21 06:52] LABS: Vancomycin Trough 20.5 ug/ml (5-20)
[2025-02-21 07:03] LABS: APTT 115.5 Sec (23.4-35.0)
--- NOTE | 2025-02-21 08:10 | W.PN.CRS1 ---
Today's Communication / Plan
-
keep npo and monitor nausea
tpn
Assessment/Plan
-
59-year-old male with PMH of A-fib (on Eliquis), hypothyroidism, PVD (s/p LLE thrombectomy 2022, RLE thrombectomy 2023) who presented with acute abdominal pain and found to have SMA occlusion
01/27/2025- Ex lap, SMA thromboembolectomy, open abdomen
01/28/2025- Take-back, mesenteric angiography, partial omentectomy, tap block, abdominal closure
02/07/2025- Exlap, SBR (120cm), lysis of adhesions, placement of ABThera wound VAC
02/08/2025- Take-back, abdominal washout, mesenteric angiography with spy, placement of ABThera VAC
02/11/2025- Take-back, small bowel anastomosis, bilateral cutaneous advancement flaps, abdominal wall closure
AFVSS
WBC 15.0 (14.9), Hb 8.4 (8.6), CR 0.9
- Mesenteric ischemia, c/b perforation and 120cm of necrotic bowel, s/p open abdomen, s/p SB anastomosis with abdominal closure
-C/b subQ bleeding, resolved; cont abd binder
�S/p pRBC on 02/17, Hb stable, cont hep gtt
-Monitor LFTs, elevated tbili likely due to ischemic injury, but improving
�Continue NPO given nausea. Low threshold to replace NGT.
- Plan on d/c'ing rectal tube today or tomorrow
� Continue TPN until tolerating solid food
- Will likely need speech eval prior to starting something oral
� Appreciate ID, cont abx
� Appreciate hospitalist
Subjective Data
Subjective Data
Date of Service: February 21, 2025
Patient states he has some mild abdominal pain. He is nauseous and it started about 40 minutes ago. He seems to be a little confused but is oriented x 3. He has no other complaints.
Objective Data
-
Vital Signs
Temp Pulse Resp BP Pulse Ox
98.1 F 87 26 120/98 95
02/21/25 07:00 02/21/25 07:30 02/21/25 07:30 02/21/25 06:00 02/21/25 07:30
Intake & Output
02/20/25 02/21/25 02/22/25
06:59 06:59 06:59
Intake Total 3311.9 / 3311.9 700.4 / 700.4
Output Total 3565 / 3565 860 / 860
Balance -253.1 / -253.1 -159.6 / -159.6
Intake:
Oral fluids 360 / 360
IV fluids (Total) 1591.9 / 1591.9 0 / 0
Amiodarone 116.9 / 116.9
Heparin 210 / 210
IV piggybacks 660.4 / 660.4
TPN/PPN 1330 / 1330
Fecal management system 40 / 40
irrigation (mL)
Rectum 40 / 40
Output:
Liquid stool amount 1250 / 1250
Rectum 1250 / 1250
Drain Output (Total)
[facility]
Gastrointestinal tube output ( 250 / 250 50 / 50
Total)
[place] Sump 250 / 250 50 / 50
Urine, Voided 2049 800 / 800
Other:
Number of approximated LARGE 2
amounts of urine
How many times incontinent 1
MODERATE amount urine
How many times incontinent 1 1
SATURATED amount urine
Lab Results
02/21/25 06:11
02/21/25 06:12
Physical Exam
-
General: No Acute Distress
Abdomen: Soft, Distended (mild) and Tender (mild around incision)
Skin: Warm and Dry
Incision: Clear, Dry, Intact (serous discharge at the middle aspect of midline incisions, bry in place)
[2025-02-21] MEDS: DESENEX/MITRAZOL/ZEASORB 1 APPLIC TOPICAL ×2 (09:18→21:12)
[2025-02-21] MEDS: LASIX 40 MG IV (09:21)
[2025-02-21] MEDS: NSS (PRESERVATIVE FREE) 10 ML IV (09:22)
[2025-02-21] MEDS: PROTONIX IV 40 MG IV (09:22)
--- NOTE | 2025-02-21 09:31 | W.PN.CARDCBS ---
Today's Communication / Plan
-
Slowly improving. Continue IV heparin and IV amiodarone
Follow LFTs on IV amiodarone.
Hopefully start oral medication over next 24 to 48 hours.
Hold IV Lasix, eventually start oral Lasix.
Impression / Plan
-
.
Primary Sifter Operator: Dr. Pickett
Primary EP: Dr Solorio
PCP: Dr Peñaloza
HPI: Patient with history of cardioembolic occlusion of left common femoral artery 06/2023, right iliac artery occlusion status post thromboembolectomy 10/29/2024. During that time was also noted to be in persistent rapid A-fib initially discovered
07/2023 with history of noncompliance with medications. Also with known low EF suspected tachycardia mediated status post cath 05/2024 with nonobstructive CAD.
He presented back to the ED 11/2024 due to generalized malaise and was noted to have a seroma of his right groin s/p I/D and wound vac. He was also found to be in decompensated heart failure with reduced ejection fraction and have atrial
fibrillation with rapid ventricular rates. Plan for LUIS ENRIQUE cardioversion but LUIS ENRIQUE 01/04/2025 showed massive occlusive thrombus in left atrial appendage. Most recently, presented on 01/27/2025 with acute onset abdominal pain found to have acute
mesenteric ischemia with SMA occlusion, went to OR for exploratory laparotomy and SMA thrombectomy. Postop shock with metabolic/lactic acidosis, on Levophed and intubated. Cardiology consulted for management of atrial fibrillation and heart failure
Impression:
Acute mesenteric ischemia with SMA occlusion, status post exploratory lap and SMA thrombectomy 01/27/2025 and redo OR 02/07/2025 and OR 02/08/2025
Acute hypoxemic respiratory failure
Shock with metabolic/lactic acidosis
Right groin seroma
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
Persistent atrial fibrillation, first discovered July 2023
Non-[place] myocardial injury
Chronic OAC with eliquis
Left atrial appendage thrombus by LUIS ENRIQUE 12/2024
Chronic HFrEF
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
NSVT
Hyperthyroidism
Noncompliance
Depression
History of ETOH and tobacco abuse
Obesity
Ventilator dependent respiratory failure
ECHO 04/04/2024: EF 10 to 15%, severe global hypokinesis, mild MR, trace TR, PAP 30 to 33 mmHg
Cardiac catheterization 05/22/2024: Nonobstructive coronary disease with normal to mildly elevated right and left-sided filling pressures with normal cardiac output
Echocardiogram 10/30/2024: Severely dilated left ventricle, severely reduced LV systolic function, global hypokinesis with ejection fraction of 5-10%, moderate to severe eccentric TR with PA pressure of 30-35 mmHg, small pericardial effusion.
LUIS ENRIQUE 01/04/2025: LVEF 10 to 15%, definite massive occlusive thrombus in left atrial appendage, mild MR, moderate to severe TR
Plan:
Remains in persistent atrial fibrillation.
Continue IV heparin anticoagulation with transition to Eliquis once tolerating p.o.'s. He has multiple embolic events in the past.
Continue to monitor H/H, last transfusion 02/17. Hemoglobin stable at 8.4.
Continue IV amiodarone and IV Lopressor and transition to once tolerating p.o.'s
Long-term plan would likely be to repeat transesophageal echo (given large occlusive thrombus in left atrial appendage) if he recovers from abdominal procedures and then make a plan regarding risk of ablation.
Continue pulmonary toilet, status post extubation February 18, 2025
Lasix reduced to 40 mg IV daily. Weight is overall significantly down. Will hold IV Lasix in a.m. Likely start p.o. Lasix once tolerating oral meds.
Cont to replete potassium
Consider start KCL 40 meq daily.
Cont to monitor Is and Os and daily wts.
He was taking lasix 40 mg BID as outpt.
LFTs are abnormal. Unclear of the etiology. Okay to continue IV amiodarone for now. Continue to follow.
Continue Vanco for infection, off meropenem and micafungin
ID suspects drug fever.
Hopefully switching to oral medications soon.
He has had 3 cardiac embolic events in the past 9 months felt to be due to noncompliance.
Long-term prognosis is likely poor
Discussed with nursing.
Progress Note - Sifter Operator
Subjective
Date of Service: February 21, 2025
Resting in bed. Denies significant abdominal pains. Still not taking oral medications as of yet.
Objective
Labs:
02/21/25 06:11
02/21/25 06:12
Labs
Hgb 8.4 g/dL (13.0-18.0) L 02/21/25 06:11
Hct 26.9 % (39.0-52.0) L 02/21/25 06:11
Plt Count 443 10^3/uL (130-400) H 02/21/25 06:11
PT 15.6 Sec (11.4-14.6) H 02/14/25 04:43
INR 1.19 02/14/25 04:43
APTT 115.5 Sec (23.4-35.0) H 02/21/25 06:42
Sodium 147 mmol/L (135-145) H 02/21/25 06:12
Potassium 3.2 mmol/L (3.5-5.1) L 02/21/25 06:12
BUN 42 mg/dl (9-20) H 02/21/25 06:12
Creatinine 0.9 mg/dL (0.7-1.3) 02/21/25 06:12
Glucose 132 mg/dl (70-99) H 02/21/25 06:12
Vital Signs and I&O:
Vital Signs
Temp Pulse Resp BP Pulse Ox
98.1 F 97 26 118/88 95
02/21/25 07:00 02/21/25 09:21 02/21/25 07:30 02/21/25 09:21 02/21/25 07:30
Vital Signs
Temp Pulse Resp BP Pulse Ox
98.1 F 97 26 118/88 95
02/21/25 07:00 02/21/25 09:21 02/21/25 07:30 02/21/25 09:21 02/21/25 07:30
Intake & Output
02/19/25 02/20/25 02/21/25 02/22/25
06:59 06:59 06:59 06:59
Intake Total 3181.3 / 3298.0 3311.9 / 3311.9 700.4 / 700.4
Output Total 4845 / 4845 3565 / 3565 860 / 860
Balance -1663.7 / -1547.0 -253.1 / -253.1 -159.6 / -159.6
Physical Exam
Physical Exam
GEN: No distress, awake,
HEENT: supple, anicteric, mmm, ng
LUNGS: CTA, no wheezes/rales
CV: Irreg, S1/S2, 1/6 syst LSB, no murmur
ABD: soft, BS dec, NT/ND
EXT: No edema
NEURO: Gross non-focal
SKIN: No rash
--- NOTE | 2025-02-21 09:53 | W.PN.HOSP.TC ---
Today's Communication/Plan
-
see bold
Assessment / Plan
Assessment / Plan
59M hx dilated cardiomyopathy, EF 5-10%, afib LV thrombus on AC non-compliant, left lower extremity arterial occlusion due to thromboembolism 07/06 and acute limb ischemia RLE s/p thromboembolectomy 11/06 presented to the ER with abdominal pain and
shortness of breath. 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 Post-op course complicated with
ileus.
A/P:
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
Post-op Ileus
Fever unknown origin possibly infectious vs drug fever
-appreciate vascular, CRS, Freight Car Inspector consults
-s/p OR 01/27: thromboembolectomy of SMA, placement ABThera Vac
-s/p OR 01/28: exploratory laparotomy, mesenteric angiography, partial omentectomy, tap block, abdominal closure
-s/p IV Zosyn - completed 7 day course, however fever/leukocytosis persist
-TPN initiated on 02/02
-02/07, CT abdomen and pelvis showed new mild intraperitoneal free air indicating a perforated viscus
-s/p OR 02/07: exploratory laparotomy, small bowel resection, lysis of adhesions, placement of ABThera wound VAC
-ID eval appreciated micafungin completed, empiric IV zosyn switched to meropenem, later switched to Vancomycin d/t Enterococcus faecium noted in wound culture
-Returned to OR with CRS 02/11/2025 exploratory lap, small bowel anastomosis, abd wall closure, bilateral cutaneous advancement flaps,repeat wound culture results pending
-02/13/25 developed increased abd distension firmness w/ associate drop in hgb overnight, CRS eval appreciated 200-300 mL of dark sanguinous blood expressed from midline wound likely subcutaneous bleed, abd binder applied and hep gtt briefly held
since resumed
-Continue TPN, IV vanc as per ID
-Fevers resolved as of 02/19 on vanc (although ID suspects drug fever)
-Started on clears 02/21, trend fever and white count
Anemia
Acute blood Loss anemia 2/2 surgical procedures, subcutaneous bleed as above
Iron Studies appreciated Anemia of Chronic Disease
B12 Folate non-deficiency
Status post 1 unit packed red blood cells 02/17, hemoglobin improved to greater than 8 from 7.3
Monitor hemoglobin, transfuse as needed
Hypoxic Respiratory Failure status post intubation
-Appreciate mover input, continue vent management as per mover
-failed multiple attempts to wean off ventilator.
-Freight Car Inspector Update Note 02.15.25 discussion with family (sister Keyla) appreciated
-Extubated 02/18, now on RA
Hypokalemia
Hypophosphatemia
-monitor and replete as necessary
Toxic metabolic encephalopathy
-Monitor
Permanent AFIB with RVR
Left atrial appendage thrombus
-Status post Cardizem drip
-appreciate Cardiology, continue IV amiodarone drip, IV heparin drip, IV metoprolol
-resume Metoprolol when able to take PO
-resume Eliquis when confirm no need for further procedures
Acute on chronic HFrEF (EF 5-10%)
-hold RUBBER TURNER Entresto and Metop XL until patient can take PO meds
-Trend creatinine, trend daily weights
-02/14 ECHO appreciated EF10-15% mod MR TR no significant change from prior ECHO
-IV lasix as per cardio mover
-BNP significantly increased 34284
-Cards rec holding IV lasix
Hypernatremia
- Holding Lasix as above
Bacteruria
-UA on 02/05/25 with bacteuria
-Was on Rocephin, changed to Zosyn, then meropenem, now on vancomycin as above
Hyperthyroid--new diagnosis last admission?--on methimazole but would hold for now
-repeat TSH here Low but T4 wnl
-cont methimazole hold
-suspect euthyroid-sick syndrome
-repeat TFTs in 1 month
Type 2 diabetes
-well controlled on sliding scale
-cont glycemic control
PAD
Active smoker
smoking cessation counseled
DVT proph - IV heparin drip
Code status - Full Code
Total time spent to see the patient on the floor, examine the patient, review data and lab results, discuss treatment plan with patient, nursing staff around 51 minutes.
Physical Exam
General: Obese no acute distress
HEENT: Normocephalic, Atraumatic
Respiratory: Clear to Auscultation bilaterally
Cardiac: Normal S1/S2, irregular irregular rhythm
GI: Soft, distended, incision dressed
Extremities: No Clubbing, No Cyanosis
Neuro: awake alert following commands
Anticipated Discharge: > 48 hours
Subjective/Interval History
-
Date of Service: February 21, 2025
Patient complains of abdominal pain. No nausea, no vomiting. Continues to have gas and stool. No fever.
Objective Data
-
Labs:
Laboratory Results
02/21/25 02/21/25 02/21/25
06:11 06:12 06:42
WBC 15.0 H
Hgb 8.4 L
Hct 26.9 L
Plt Count 443 H
APTT Cancelled 115.5 H
Sodium 147 H
Potassium 3.2 L
Chloride 112 H
Carbon Dioxide 29
BUN 42 H
Creatinine 0.9
Glucose 132 H
Calcium 8.2 L
02/21/25
13:15
WBC
Hgb
Hct
Plt Count
APTT Pending
Sodium
Potassium
Chloride
Carbon Dioxide
BUN
Creatinine
Glucose
Calcium
Vital Signs:
Vital Signs
Temp Pulse Resp BP Pulse Ox
98.1 F 97 26 118/88 95
02/21/25 07:00 02/21/25 09:21 02/21/25 07:30 02/21/25 09:21 02/21/25 07:30
I&O
02/20/25 02/21/25 02/22/25
06:59 06:59 06:59
Intake Total 3311.9 / 3311.9 700.4 / 700.4
Output Total 3565 / 3565 860 / 860
Balance -253.1 / -253.1 -159.6 / -159.6
--- NOTE | 2025-02-21 10:46 | PTCARENOTE ---
Assumed care of patient this morning. Patient is only oriented to himself. He attempts at conversation but speech is confused and garbled at times. He is easily agitated, resistive to care, especially with pericare. He is excoriated perianally and
has MARLEE in his groin and upper inner thighs. Pt's condom catheter came off and patient attempted to kick RN when trying to place a new one on. Using a calm attitude with patient does help and patient does become more cooperative, briefly. Patient's
family, mom Keyla and sister Keyla at bedside. Assessment, care and VS as charted.
--- NOTE | 2025-02-21 11:13 | PN.DE.MGMTRT ---
Insulin Management
- -
02/21/2025: Diabetes Management Follow up
Patient admitted 01/27 with abdominal pain and SOB PMH: A-fib, hyperthyroidism, chronic HFrEF, LLE arterial occlusion due to thromboembolism (06/2023), h/o acute limb ischemia of RLE with thromboembolic occlusion of the right iliac system s/p
thromboembolectomy of the right iliac system + thromboembolectomy of the right SFA, popliteal artery. Prior to admission was taking Jardiance 10mg daily. A1C 6.3%, Cr 1.1, eGFR >60.
CTA showed thrombosis of the SMA s/p ex lap with thromboembolectomy of SMA and placement of an AbThera Vac 01/27/25. Postoperatively he was started on the glycemic protocol due to hyperglycemia. Pt was extubated 02/18
Pt awake, alert, oriented, able to discuss diabetes care plan. No Family at bedside.
POD # 10 s/p exp lap, mesenteric ischemia, abdominal washout. POD #14 s/p exp lap with small bowel resection.
POD #23 s/p abd closure. POD# 24 s/p exp lap, mesenteric angiography, partial omentectomy, tap block, abdominal closure
Remains NPO with NGT, on TPN. Transitioned off glycemic protocol on 02/10 at 7AM to moderate corrective Q6 hrs
Glucose stable an din range, no excursions. 148 to 154, FBG 132 V this AM.
Will make no changes to current regimen: Cont moderate corrective Q6 hrs
Discussed with nurse. Will cont to follow.
Diabetes History
- -
Type of Diabetes: 2
Pre-Admission Diabetes Regimen
02/21/25
06:12
Creatinine 0.9
Lab Results
Hemoglobin A1c 6.3 % (4.0-5.6) H 01/27/25 14:42
Insulin Pump Settings
IP Diabetes Regimen
02/20/25 02/20/25 02/21/25
12:16 17:14 00:13
Glucose
POC Glucose 148 H 154 H 147 H
02/21/25 02/21/25
06:12 06:20
Glucose 132 H
POC Glucose 136 H
Patient Education
[2025-02-21] MEDS: KCL 270 MEQ IV ×2 (11:25→15:48)
[2025-02-21 11:50] LABS: Glucose - Point of Care 149 mg/dl (70-99)
[2025-02-21 13:30] LABS: APTT 53.7 Sec (23.4-35.0)
--- NOTE | 2025-02-21 14:58 | W.PN.ID1 ---
Date of Service
Date of Service: February 21, 2025
Today's Communication
Continue vancomycin.
Assessment / Plan
Persistent fevers
Leukocytosis
Mesenteric ischemia with perforation and necrotic bowel
- s/p washout and primary abdominal closure (02/11/2025)
VDRF
Severely dilated cardiomyopathy with markedly diminished EF
Hx A-fib
Recommendations:
Abd wound culture with Enterococcus (amp resistant)
Continue vancomycin (d#6). Monitor levels closely to prevent nephrotoxicity.
Leukocytosis stable.
Follow white count and temperature curve.
Continue with supportive care.
����������������������������������������������������������
Chief Complaint
-: Fever and Leukocytosis
Subjective / Review of Systems
Patient seen and examined. NG tube now out.
Review of Systems: No Fever and No Chills
Vital Signs / Physical Exam
Vital Signs
Vital Signs
Temp Pulse Resp BP Pulse Ox
98.4 F 74 20 118/98 95
02/21/25 11:58 02/21/25 12:01 02/21/25 12:01 02/21/25 12:01 02/21/25 12:01
Physical Exam
Constitutional: No Acute Distress, Comfortable and Non-toxic
Cardiovascular: Regular Rate and S1/S2; Negative S3/S4
Pulmonary: Clear
Gastrointestinal: Soft, Decreased Bowel Sounds and Other (Abdominal binder in place. FMS in place)
Genito-Urinary: Wilkerson and Clear Urine
Extremities: Edema (2+ bilateral lower extremity edema); Negative Cyanosis or Erythema
Wound: Other (Abdominal wound dressed. No strikethrough.)
Neurological: Awake
Psychological: Calm
Lines: PICC (LUE midline; RUE PICC line)
Objective Data
Lab Data
Lab Results
02/21/25 06:11
02/21/25 06:12
PT 15.6 Sec (11.4-14.6) H 02/14/25 04:43
INR 1.19 02/14/25 04:43
APTT 53.7 Sec (23.4-35.0) H 02/21/25 13:10
Estimated Creat Clear 112 ml/min 02/21/25 06:12
Lactic Acid 1.1 mmol/L (0.7-2.0) 02/09/25 04:00
Total Bilirubin 3.9 mg/dl (0.2-1.3) H 02/20/25 05:53
AST 38 U/L (17-59) 02/20/25 05:53
ALT 75 U/L (0-50) H 02/20/25 05:53
Alkaline Phosphatase 130 U/L (38-126) H 02/20/25 05:53
Most recent labs reviewed.
Micro Results:
02/11/25 15:30 Fungal Culture - Preliminary
Other-Please specify - Other Yeast
02/17/25 09:06 C. difficile GDH Antigen & Toxins - Final
Feces/Stool Negative for toxigenic C.difficile
02/11/25 15:30 Wound Culture - Final
Abdomen Enterococcus faecium
Gram Stain - Final
02/11/25 15:30 Anaerobic Culture - Final
Other-Please specify - Other NO ANAEROBES ISOLATED
02/11/25 13:11 Blood Culture - Final
Blood/Venous No Growth - Final Report
02/14/25 13:46 Respiratory Culture - Final
Tracheal Aspirate Usual Respiratory Shireen
Gram Stain - Final
02/07/25 18:36 Blood Culture - Final
Blood/Venous No Growth - Final Report
02/11/25 14:22 C. difficile GDH Antigen & Toxins - Final
Feces/Stool Negative for toxigenic C.difficile
02/11/25 10:41 Influenza Types A & B (SHERLYN) - Final
Nasal Swab Negative for Influenza A & B, NAAT
Negative results must be combined with clinical observations
and patient history.
Nucleic Acid Amplification test (NAAT)performed on the
[employer] platform.
02/09/25 09:21 Urine Culture - Final
Urine NO GROWTH
01/27/25 12:14 Blood Culture - Final
Blood/Venous No Growth - Final Report
01/27/25 21:32 MRSA Screen - Final
Nose No Methicillin Resistant Staphylococcus aureus isolated.
Wound/abscess/other Cult Preliminary 02/16/25-907
Moderate Enterococcus faecium
Moderate Diptheroids
Organism 1 Enterococcus faecium
1. Enterococcus faecium
M.I.C. RX
--------- ---
Ampicillin >8 R
Daptomycin >4 R
Gentamicin Synergy Screen <=500 S
Linezolid 2 S
Vancomycin 1 S
Imaging:
02/13/2025 CXR (portable): Mild haziness in the right medial lower lung field. Poor visualization of the medial left hemidiaphragm. No pleural effusion or pneumothorax noted.
02/11/2025 CXR (portable): Hazy opacification along both lower lungs without significant change. No significant pleural effusion is noted.
[2025-02-21] MEDS: NOVOLOG FLEXPEN-MODERATE RESISTANCE 1 UNITS SC (18:18)
[2025-02-21 18:28] LABS: Glucose - Point of Care 179 mg/dl (70-99)
[2025-02-21] MEDS: CORDARONE 518 MG IV (20:02)
[2025-02-21] MEDS: Parenteral Nutrition, Central 1660 IV (21:03)
[2025-02-21] MEDS: DILAUDID 0.5 MG IV (21:08)
[2025-02-21 21:17] LABS: APTT 105.3 Sec (23.4-35.0)
[2025-02-22] VITALS (17 sets, daily range): BP systolic 99–145; BP diastolic 62–118; PULSE 103–132; O2SAT 97; BMI 33.2
[2025-02-22] MEDS: LOPRESSOR 7.5 MG IV ×5 (00:27→23:00)
[2025-02-22] MEDS: NOVOLOG FLEXPEN-MODERATE RESISTANCE SC (00:27)
[2025-02-22 00:38] LABS: Glucose - Point of Care 140 mg/dl (70-99)
[2025-02-22] MEDS: FLUSH (NSS) 1 FLUSH IV (03:21)
[2025-02-22] MEDS: ATIVAN 0.5 MG IV ×2 (03:21→21:00)
[2025-02-22] MEDS: TORADOL 15 MG IV ×4 (03:21→22:00)
[2025-02-22 03:59] LABS: Hematocrit 26.8 % (39.0-52.0); Hemoglobin 8.6 g/dL (13.0-18.0); Mean Corp Hgb Conc. 32.1 g/dL (33.0-37.0); Mean Corpuscular Hgb 33.5 pg (27.0-31.0); Mean Corpuscular Volume 104.3 fL (80.0-94.0); Mean Platelet Volume 11.2 fL (7.4-10.4); Platelet Count 440 10^3/uL (130-400); Red Blood Cell Count 2.57 10^6/uL (4.70-6.10); Red Cell Dist. Width 18.4 % (11.5-14.5); White Blood Cell Count 15.1 10^3/uL (4.8-10.8)
[2025-02-22 04:15] LABS: APTT 99.3 Sec (23.4-35.0)
[2025-02-22 04:33] LABS: Blood Urea Nitrogen 43 mg/dl (9-20); Calcium 8.2 mg/dl (8.4-10.2); Carbon Dioxide 29 mmol/L (22-30); Chloride 112 mmol/L (98-107); Estimated Creatinine Clearance 112 ml/min; Glucose 144 mg/dl (70-99); Magnesium 1.9 mg/dl (1.6-2.3); Phosphorus 3.7 mg/dl (2.5-4.5); Potassium 3.9 mmol/L (3.5-5.1); Sodium 146 mmol/L (135-145); eGFR > 60.00
[2025-02-22] MEDS: HEPARIN 25000 UNITS/250 ML IV ×3 (05:23→21:30)
[2025-02-22] MEDS: NOVOLOG FLEXPEN-MODERATE RESISTANCE 1 UNITS SC ×3 (05:27→17:54)
[2025-02-22 05:38] LABS: Glucose - Point of Care 159 mg/dl (70-99)
--- NOTE | 2025-02-22 07:07 | PTCARENOTE ---
Patient continues to have confused conversation. Pt was washed, all linens changed. CHG done. Barrier cream applied to tyrese area/ scrotum/ tyrese- anal area for MASD. RUE PICC, LUE midline, FMS, KIKI, & abd dressing intact. PRN Dilaudid given for Abd
pain. PRN Ativan given once for agitation x1. Refused bipap. Afib on tele. Rounding frequently for safety.
--- NOTE | 2025-02-22 07:15 | W.PN.CRS1 ---
Today's Communication / Plan
-
as below
Assessment/Plan
-
59-year-old male with PMH of A-fib (on Eliquis), hypothyroidism, PVD (s/p LLE thrombectomy 2022, RLE thrombectomy 2023) who presented with acute abdominal pain and found to have SMA occlusion
01/27/2025- Ex lap, SMA thromboembolectomy, open abdomen
01/28/2025- Take-back, mesenteric angiography, partial omentectomy, tap block, abdominal closure
02/07/2025- Exlap, SBR (120cm), lysis of adhesions, placement of ABThera wound VAC
02/08/2025- Take-back, abdominal washout, mesenteric angiography with spy, placement of ABThera VAC
02/11/2025- Take-back, small bowel anastomosis, bilateral cutaneous advancement flaps, abdominal wall closure
02/19 - extubated
AFVSS
WBC 15.1 from 15.0
- Mesenteric ischemia, c/b perforation and 120cm of necrotic bowel, s/p open abdomen, s/p SB anastomosis with abdominal closure
-C/b subQ bleeding, resolved; cont abd binder
�S/p pRBC on 02/17, Hb stable, cont hep gtt
-Cont pain control
-Monitor LFTs, elevated tbili likely due to ischemic injury, but improving
�Continue TPN, advance to regular
-Yesterday AXR - non-obstructed gas pattern
-Keep rectal tube, but once off restraints, please remove
� Appreciate ID, cont abx
� Appreciate hospitalist
Subjective Data
Subjective Data
Date of Service: February 22, 2025
Denies N/V, tolerating clears, feeling hungry. Rectal tube with output. Pain controlled.
Objective Data
-
Vital Signs
Temp Pulse Resp BP Pulse Ox
98.0 F 106 33 115/94 96
02/22/25 05:15 04/11/25 06:00 02/22/25 06:00 02/22/25 06:00 02/22/25 06:00
Intake & Output
02/21/25 02/22/25 02/23/25
06:59 06:59 06:59
Intake Total 700.4 / 700.4 2901.4 / 2901.4
Output Total 860 / 860 2926 / 2926
Balance -159.6 / -159.6 -24.6 / -24.6
Intake:
Oral fluids 50 / 50
IV fluids (Total) 0 / 0
IV piggybacks 660.4 / 660.4 1928.4 / 1928.4
TPN/PPN 828 / 828
Fecal management system 40 / 40 95 / 95
irrigation (mL)
Rectum 40 / 40 95 / 95
Output:
Liquid stool amount 450 / 450
Rectum 450 / 450
Drain Output (Total)
[place]
Gastrointestinal tube output ( 50 / 50
Total)
Sargeant Sump 50 / 50
Urine, Voided 800 / 800 2475 / 2475
Other:
Number of approximated LARGE 2
amounts of urine
How many times incontinent 1
SATURATED amount urine
Lab Results
02/22/25 03:32
02/22/25 03:32
Physical Exam
-
General: No Acute Distress and AOx3
HEENT: Grossly Normal
Abdomen: Soft, Non Distended, Tender (appropriately tender), No Guarding, No Rebound and Other (KIKI- scant serosang output)
Skin: Warm, Dry and Other (slight jaundice)
Wound: No Signs of Infection, Dressing in Place and No Skin Erythema
Incision: Other (wound edges not fully approximated in mid-portion of incision, but together with staple, no purulent drainage or erythema)
[2025-02-22] MEDS: NSS (PRESERVATIVE FREE) 10 ML IV ×2 (09:02→20:51)
[2025-02-22] MEDS: PROTONIX IV 40 MG IV ×2 (09:02→20:51)
[2025-02-22] MEDS: DESENEX/MITRAZOL/ZEASORB 1 APPLIC TOPICAL ×2 (09:02→20:51)
--- NOTE | 2025-02-22 09:09 | W.PN.HOSP.TC ---
Today's Communication/Plan
-
see bold
Assessment / Plan
Assessment / Plan
59M hx dilated cardiomyopathy, EF 5-10%, afib LV thrombus on AC non-compliant, left lower extremity arterial occlusion due to thromboembolism 07/06 and acute limb ischemia RLE s/p thromboembolectomy 11/06 presented to the ER with abdominal pain and
shortness of breath. 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 Post-op course complicated with
ileus.
A/P:
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
Post-op Ileus
Fever unknown origin possibly infectious vs drug fever
-appreciate vascular, CRS, Professor Of Vegetable Science consults
-s/p OR 01/27: thromboembolectomy of SMA, placement ABThera Vac
-s/p OR 01/28: exploratory laparotomy, mesenteric angiography, partial omentectomy, tap block, abdominal closure
-s/p IV Zosyn - completed 7 day course, however fever/leukocytosis persist
-TPN initiated on 02/02
-02/07, CT abdomen and pelvis showed new mild intraperitoneal free air indicating a perforated viscus
-s/p OR 02/07: exploratory laparotomy, small bowel resection, lysis of adhesions, placement of ABThera wound VAC
-ID eval appreciated micafungin completed, empiric IV zosyn switched to meropenem, later switched to Vancomycin d/t Enterococcus faecium noted in wound culture
-Returned to OR with CRS 02/11/2025 exploratory lap, small bowel anastomosis, abd wall closure, bilateral cutaneous advancement flaps,repeat wound culture results pending
-02/13/25 developed increased abd distension firmness w/ associate drop in hgb overnight, CRS eval appreciated 200-300 mL of dark sanguinous blood expressed from midline wound likely subcutaneous bleed, abd binder applied and hep gtt briefly held
since resumed
-Continue TPN, IV vanc as per ID
-Fevers resolved as of 02/19 on vanc (although ID suspects drug fever)
-Cleared for reg diet on 02/22 but NPO due to dysphagia
-Trend fever and white count
Acute blood Loss anemia /2 surgical procedures, subcutaneous bleed as above
Maroon stools noted 02/22
-Iron Studies appreciated Anemia of Chronic Disease
-B12 Folate non-deficiency
-Status post 1 unit packed red blood cells 02/17, hemoglobin improved to greater than 8 from 7.3
-Hemoglobin 7.9, down from 8.6
-Colorectal surgery recommends continuing IV heparin and trending hemoglobin for now
-Increase PPI to twice daily
Dysphagia
- Speech recommends strict n.p.o., nonoral meds, may have ice chips
Hypoxic Respiratory Failure status post intubation
-Appreciate children's aide input, continue vent management as per children's aide
-failed multiple attempts to wean off ventilator.
-Professor Of Vegetable Science Update Note 02.15.25 discussion with family (sister Keyla) appreciated
-Extubated 02/18, now on RA
Hypokalemia
Hypophosphatemia
-monitor and replete as necessary
Toxic metabolic encephalopathy
-Monitor
Permanent AFIB with RVR
Left atrial appendage thrombus
-Status post Cardizem drip
-appreciate Cardiology, continue IV amiodarone drip, IV heparin drip, IV metoprolol
-resume Metoprolol when able to take PO
-resume Eliquis when confirm no need for further procedures
Acute on chronic HFrEF (EF 5-10%)
-hold FIRER PORTABLE BOILER Entresto and Metop XL until patient can take PO meds
-Trend creatinine, trend daily weights
-02/14 ECHO appreciated EF10-15% mod MR TR no significant change from prior ECHO
-IV lasix as per cardio children's aide
-BNP significantly increased 35083
- IV Lasix as per cardiology
Hypernatremia
- Monitor
Bacteruria
-UA on 02/05/25 with bacteuria
-Was on Rocephin, changed to Zosyn, then meropenem, now on vancomycin as above
Hyperthyroid--new diagnosis last admission?--on methimazole but would hold for now
-repeat TSH here Low but T4 wnl
-cont methimazole hold
-suspect euthyroid-sick syndrome
-repeat TFTs in 1 month
Type 2 diabetes
-well controlled on sliding scale
-cont glycemic control
PAD
Active smoker
smoking cessation counseled
DVT proph - IV heparin drip
Code status - Full Code
Total time spent to see the patient on the floor, examine the patient, review data and lab results, discuss treatment plan with patient, nursing staff around 53 minutes.
Physical Exam
General: Obese no acute distress
HEENT: Normocephalic, Atraumatic
Respiratory: Clear to Auscultation bilaterally
Cardiac: Normal S1/S2, irregular irregular rhythm
GI: Soft, distended, incision dressed
Extremities: No Clubbing, No Cyanosis
Neuro: awake alert following commands
Anticipated Discharge: > 48 hours
Subjective/Interval History
-
Date of Service: February 22, 2025
Patient was able to have a regular diet for breakfast and lunch. However, there was concerns about aspiration when he was eating. No chest pain, no shortness of breath. No fever, no vomiting.
Objective Data
-
Labs:
Laboratory Results
02/21/25 02/22/25
20:52 03:32
WBC 15.1 H
Hgb 8.6 L
Hct 26.8 L
Plt Count 440 H
APTT 105.3 H 99.3 H
Sodium 146 H
Potassium 3.9
Chloride 112 H
Carbon Dioxide 29
BUN 43 H
Creatinine 0.9
Glucose 144 H
Calcium 8.2 L
Vital Signs:
Vital Signs
Temp Pulse Resp BP Pulse Ox
98.0 F 106 33 115/94 96
02/22/25 05:15 02/22/25 06:00 02/22/25 06:00 02/22/25 06:00 02/22/25 06:00
I&O
02/21/25 02/22/25 02/23/25
06:59 06:59 06:59
Intake Total 700.4 / 700.4 2901.4 / 2901.4
Output Total 860 / 860 2926 / 2926
Balance -159.6 / -159.6 -24.6 / -24.6
[2025-02-22 10:09] LABS: Vancomycin Random 13.1 ug/ml
--- NOTE | 2025-02-22 10:10 | PN.DE.MGMTRT ---
Insulin Management
- -
02/22/2025: Diabetes Management Follow up
Patient admitted 01/27 with abdominal pain and SOB PMH: A-fib, hyperthyroidism, chronic HFrEF, LLE arterial occlusion due to thromboembolism (06/2023), h/o acute limb ischemia of RLE with thromboembolic occlusion of the right iliac system s/p
thromboembolectomy of the right iliac system + thromboembolectomy of the right SFA, popliteal artery. Prior to admission was taking Jardiance 10mg daily. A1C 6.3%, Cr 1.1, eGFR >60.
CTA showed thrombosis of the SMA s/p ex lap with thromboembolectomy of SMA and placement of an AbThera Vac 01/27/25. Postoperatively he was started on the glycemic protocol due to hyperglycemia. Pt was extubated 02/18
Pt awake, sleeping at time of visit, unable to discuss diabetes care plan. No Family at bedside.
POD # 11 s/p exp lap, mesenteric ischemia, abdominal washout. POD # 15 s/p exp lap with small bowel resection.
POD # 24 s/p abd closure. POD # 25 s/p exp lap, mesenteric angiography, partial omentectomy, tap block, abdominal closure
Remains NPO with NGT, on TPN. Transitioned off glycemic protocol on 02/10 at 7AM to moderate corrective Q6 hrs
Glucose stable and in range, no excursions. 149 to 179, FBG 144 V this AM.
Will make no changes to current regimen: Cont moderate corrective Q6 hrs
Discussed with nurse. Will cont to follow.
Diabetes History
- -
Type of Diabetes: 2
Pre-Admission Diabetes Regimen
02/22/25
03:32
Creatinine 0.9
Lab Results
Hemoglobin A1c 6.3 % (4.0-5.6) H 01/27/25 14:42
Insulin Pump Settings
IP Diabetes Regimen
02/21/25 02/21/25 02/22/25
11:39 18:17 00:26
Glucose
POC Glucose 149 H 179 H 140 H
02/22/25 02/22/25
03:32 05:27
Glucose 144 H
POC Glucose 159 H
Patient Education
--- NOTE | 2025-02-22 11:30 | PTCARENOTE ---
Assumed care of patient this morning. Patient is tachycardic and tachypneic, he states he feels a little short of breath and his abdomen hurts a little. Pt medicated with scheduled Toradol. Pt's VS otherwise stable. and Dr. Onofre made
aware. Assessment, care and VS as charted.
--- NOTE | 2025-02-22 11:31 | PHA.VAN.FU ---
Vancomycin Assessment / Plan
- Assessment
Renal Function: Stable (0.9)
WBC's are: Stable (15.1)
In the past 24 hrs, patient has been: Afebrile
- Assessment - Therapeutic Drug Monitoring
Random Level: 13.1 ~27Hrs after 1250mg dose 02/21 622
- Dosing Plan
Dosing by Level: Re-dose today
Dosing Comments: Vanco 1250mg x1
- Monitoring Plan
Random Level: 02/23 600
- Follow Up
Pharmacy will continue to follow.
Vancomycin Follow UP
- -
Patient Age: 59
Patient Sex: Male
Vancomycin Day #: 6
Indication: Gi / Intra-Abdominal
Requesting Provider: Irina Bruno
Height / Weight:
Height 6 ft
Actual Weight 110.9 kg
IBW in k.6
Adjusted BW in k.4 (BMI 34.2)
Pertinent Past Medical History: mesenteric ischemia w/perf; intubated
- Vital Signs / Lab Results
Temp Pulse Resp BP Pulse Ox
97.9 F 106 33 115/94 96
02/22/25 07:50 02/22/25 06:00 02/22/25 06:00 02/22/25 06:00 02/22/25 06:00
Lab Results - Hematology
02/20/25 02/21/25 02/22/25
05:53 06:11 03:32
WBC 14.9 H 15.0 H 15.1 H
Lab Results - Chemistry
02/20/25 02/21/25 02/22/25
05:53 06:12 03:32
BUN 35 H 42 H 43 H
Creatinine 0.9 0.9 0.9
Estimated Creat Clear 112 112 112
Albumin 2.0 L
Microbiology Results
02/11/25 15:30 Fungal Culture - Preliminary
Other-Please specify - Other Cira albicans
Therapeutic Drug Monitoring
Vancomycin Peak 31.2 ug/ml (18-26) H 02/20/25 22:15
Vancomycin Trough 20.5 ug/ml (5-20) H* 02/21/25 06:12
Random Vancomycin 13.1 ug/ml 02/22/25 09:14
[2025-02-22 12:22] LABS: Glucose - Point of Care 180 mg/dl (70-99)
--- NOTE | 2025-02-22 12:44 | W.PN.ID1 ---
Date of Service
Date of Service: February 22, 2025
Today's Communication
continue vancomycin
Assessment / Plan
Secondary peritonitis
Fevers - resolved
Leukocytosis - persists
Mesenteric ischemia with perforation and necrotic bowel
- s/p washout and primary abdominal closure (02/11/2025)
VDRF
Severely dilated cardiomyopathy with markedly diminished EF
Hx A-fib
Recommendations:
Abd wound culture with Enterococcus (amp resistant)
Continue vancomycin (d#7). Monitor levels closely to prevent nephrotoxicity.
Leukocytosis stable.
Follow white count and temperature curve.
Continue with supportive care.
����������������������������������������������������������
Chief Complaint
-: Fever and Leukocytosis
Subjective / Review of Systems
remains afebrile
bp stable
no significant events overnight
Vital Signs / Physical Exam
Vital Signs
Vital Signs
Temp Pulse Resp BP Pulse Ox
97.9 F 132 26 126/85 96
02/22/25 07:50 02/22/25 11:00 02/22/25 11:00 02/22/25 08:00 02/22/25 11:35
Physical Exam
Constitutional: No Acute Distress and Chronically Ill
Cardiovascular: Regular Rate and S1/S2; Negative Murmur or Rub
Pulmonary: Clear and Symmetric; Negative Wheezes or Rales
Gastrointestinal: Soft, Non Tender, Non Distended and Normal Bowel Sounds
Skin: Warm and Dry; Negative Rash or Jaundice
Lines: PIV (tender - for removal), PICC (x2 no erythema, warmth or tenderness) and Other (drain with bloody output)
Objective Data
Lab Data
Lab Results
02/22/25 03:32
02/22/25 03:32
PT 15.6 Sec (11.4-14.6) H 02/14/25 04:43
INR 1.19 02/14/25 04:43
APTT 99.3 Sec (23.4-35.0) H 02/22/25 03:32
Estimated Creat Clear 112 ml/min 02/22/25 03:32
Lactic Acid 1.1 mmol/L (0.7-2.0) 02/09/25 04:00
Total Bilirubin 3.9 mg/dl (0.2-1.3) H 02/20/25 05:53
AST 38 U/L (17-59) 02/20/25 05:53
ALT 75 U/L (0-50) H 02/20/25 05:53
Alkaline Phosphatase 130 U/L (38-126) H 02/20/25 05:53
Most recent labs reviewed.
Micro Results:
02/11/25 15:30 Fungal Culture - Preliminary
Other-Please specify - Other Cira albicans
02/17/25 09:06 C. difficile GDH Antigen & Toxins - Final
Feces/Stool Negative for toxigenic C.difficile
02/11/25 15:30 Wound Culture - Final
Abdomen Enterococcus faecium
Gram Stain - Final
02/11/25 15:30 Anaerobic Culture - Final
Other-Please specify - Other NO ANAEROBES ISOLATED
02/11/25 13:11 Blood Culture - Final
Blood/Venous No Growth - Final Report
02/14/25 13:46 Respiratory Culture - Final
Tracheal Aspirate Usual Respiratory Shireen
Gram Stain - Final
02/07/25 18:36 Blood Culture - Final
Blood/Venous No Growth - Final Report
02/11/25 14:22 C. difficile GDH Antigen & Toxins - Final
Feces/Stool Negative for toxigenic C.difficile
02/11/25 10:41 Influenza Types A & B (SHERLYN) - Final
Nasal Swab Negative for Influenza A & B, NAAT
Negative results must be combined with clinical observations
and patient history.
Nucleic Acid Amplification test (NAAT)performed on the
[employer] platform.
02/09/25 09:21 Urine Culture - Final
Urine NO GROWTH
01/27/25 12:14 Blood Culture - Final
Blood/Venous No Growth - Final Report
01/27/25 21:32 MRSA Screen - Final
Nose No Methicillin Resistant Staphylococcus aureus isolated.
Wound/abscess/other Cult Preliminary 02/16/25-907
Moderate Enterococcus faecium
Moderate Diptheroids
Organism 1 Enterococcus faecium
1. Enterococcus faecium
M.I.C. RX
--------- ---
Ampicillin >8 R
Daptomycin >4 R
Gentamicin Synergy Screen <=500 S
Linezolid 2 S
Vancomycin 1 S
Imaging:
02/13/2025 CXR (portable): Mild haziness in the right medial lower lung field. Poor visualization of the medial left hemidiaphragm. No pleural effusion or pneumothorax noted.
02/11/2025 CXR (portable): Hazy opacification along both lower lungs without significant change. No significant pleural effusion is noted.
[2025-02-22] MEDS: VANCOCIN 275 MG IV (12:47)
[2025-02-22] MEDS: DILAUDID 0.5 MG IV ×2 (12:52→20:47)
--- NOTE | 2025-02-22 12:53 | W.PN.CARDCBS ---
Today's Communication / Plan
-
Attempting a regular diet today. Hopefully we can restart oral meds soon.
Continue IV amiodarone and IV metoprolol.
Will resume Lasix 40 mg IV daily today with his dyspnea and mild shortness of breath.
Hopefully transition also to Eliquis soon.
Impression / Plan
-
.
Primary Performance Tester: Dr. Pickett
Primary EP: Dr Solorio
PCP: Dr Peñaloza
HPI: Patient with history of cardioembolic occlusion of left common femoral artery 06/2023, right iliac artery occlusion status post thromboembolectomy 10/29/2024. During that time was also noted to be in persistent rapid A-fib initially discovered
07/2023 with history of noncompliance with medications. Also with known low EF suspected tachycardia mediated status post cath 05/2024 with nonobstructive CAD.
He presented back to the ED 11/2024 due to generalized malaise and was noted to have a seroma of his right groin s/p I/D and wound vac. He was also found to be in decompensated heart failure with reduced ejection fraction and have atrial
fibrillation with rapid ventricular rates. Plan for LUIS ENRIQUE cardioversion but LUIS ENRIQUE 01/04/2025 showed massive occlusive thrombus in left atrial appendage. Most recently, presented on 01/27/2025 with acute onset abdominal pain found to have acute
mesenteric ischemia with SMA occlusion, went to OR for exploratory laparotomy and SMA thrombectomy. Postop shock with metabolic/lactic acidosis, on Levophed and intubated. Cardiology consulted for management of atrial fibrillation and heart failure
Impression:
Acute mesenteric ischemia with SMA occlusion, status post exploratory lap and SMA thrombectomy 01/27/2025 and redo OR 02/07/2025 and OR 02/08/2025
Acute hypoxemic respiratory failure
Shock with metabolic/lactic acidosis
Right groin seroma
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
Persistent atrial fibrillation, first discovered July 2023
Non-HI myocardial injury
Chronic OAC with eliquis
Left atrial appendage thrombus by LUIS ENRIQUE 12/2024
Chronic HFrEF
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
NSVT
Hyperthyroidism
Noncompliance
Depression
History of ETOH and tobacco abuse
Obesity
Ventilator dependent respiratory failure
ECHO 04/04/2024: EF 10 to 15%, severe global hypokinesis, mild MR, trace TR, PAP 30 to 33 mmHg
Cardiac catheterization 05/22/2024: Nonobstructive coronary disease with normal to mildly elevated right and left-sided filling pressures with normal cardiac output
Echocardiogram 10/30/2024: Severely dilated left ventricle, severely reduced LV systolic function, global hypokinesis with ejection fraction of 5-10%, moderate to severe eccentric TR with PA pressure of 30-35 mmHg, small pericardial effusion.
LUIS ENRIQUE 01/04/2025: LVEF 10 to 15%, definite massive occlusive thrombus in left atrial appendage, mild MR, moderate to severe TR
Plan:
Remains in persistent atrial fibrillation.
Continue IV heparin anticoagulation with transition to Eliquis once tolerating p.o.'s. He has multiple embolic events in the past. Going to try oral diet today.
Continue to monitor H/H, last transfusion 02/17. Hemoglobin stable at 8-9.
Continue IV amiodarone and IV Lopressor and transition to once tolerating p.o.'s. Hopefully soon
Long-term plan would likely be to repeat transesophageal echo (given large occlusive thrombus in left atrial appendage) if he recovers from abdominal procedures and then make a plan regarding risk of ablation.
Continue pulmonary toilet, status post extubation February 18, 2025
Weight is up slightly. Will resume Lasix 40 mg IV daily. Creatinine remains stable. Potassium now normal.
Cont to monitor Is and Os and daily wts.
He was taking lasix 40 mg BID as outpt.
LFTs are abnormal. Unclear of the etiology. Okay to continue IV amiodarone for now. Continue to follow. Repeat transaminases in AM.
Continue Vanco for infection, off meropenem and micafungin
ID suspects drug fever.
Hopefully switching to oral medications soon.
He has had 3 cardiac embolic events in the past 9 months felt to be due to noncompliance.
Long-term prognosis is likely poor
Discussed with nursing.
Progress Note - Performance Tester
Subjective
Date of Service: February 22, 2025
Appears somewhat tachypneic today. Weight is up slightly. Remains in A-fib. Attempting to trial of diet.
Objective
Labs:
02/22/25 03:32
02/22/25 03:32
Labs
Hgb 8.6 g/dL (13.0-18.0) L 02/22/25 03:32
Hct 26.8 % (39.0-52.0) L 02/22/25 03:32
Plt Count 440 10^3/uL (130-400) H 02/22/25 03:32
PT 15.6 Sec (11.4-14.6) H 02/14/25 04:43
INR 1.19 02/14/25 04:43
APTT 99.3 Sec (23.4-35.0) H 02/22/25 03:32
Sodium 146 mmol/L (135-145) H 02/22/25 03:32
Potassium 3.9 mmol/L (3.5-5.1) 02/22/25 03:32
BUN 43 mg/dl (9-20) H 02/22/25 03:32
Creatinine 0.9 mg/dL (0.7-1.3) 02/22/25 03:32
Glucose 144 mg/dl (70-99) H 02/22/25 03:32
Vital Signs and I&O:
Vital Signs
Temp Pulse Resp BP Pulse Ox
97.9 F 132 26 126/85 96
02/22/25 07:50 02/22/25 11:00 02/22/25 11:00 02/22/25 08:00 02/22/25 11:35
Vital Signs
Temp Pulse Resp BP Pulse Ox
97.9 F 132 26 126/85 96
02/22/25 07:50 02/22/25 11:00 02/22/25 11:00 02/22/25 08:00 02/22/25 11:35
Intake & Output
02/20/25 02/21/25 02/22/25 02/23/25
06:59 06:59 06:59 06:59
Intake Total 3311.9 / 3311.9 700.4 / 700.4 2901.4 / 2901.4
Output Total 3565 / 3565 860 / 860 2926 / 2926
Balance -253.1 / -253.1 -159.6 / -159.6 -24.6 / -24.6
Physical Exam
Physical Exam
GEN: No distress, awake,
HEENT: supple, anicteric, mmm
LUNGS: CTA, no wheezes/rales
CV: Irreg, S1/S2, 1/6 syst LSB, no murmur
ABD: soft, BS+,
EXT: No edema
NEURO: Gross non-focal
SKIN: No rash
[2025-02-22 13:37] LABS: Hematocrit 24.9 % (39.0-52.0); Hemoglobin 7.9 g/dL (13.0-18.0)
--- NOTE | 2025-02-22 13:40 | PTCARENOTE ---
Pt's FMS stool appears to be reddish-brown in color, which is new. Sample from stool was Hemoocult positive. TT to and . advised with a recent anastomosis, it will always come back hemoccult positive and to keep Heparin
running until we can confirm the patient is bleeding. Stat H&H ordered. Hgb 7.9 from 8.6 this morning. ddvised to get another H&H at 1800. Pt's VS stable.
--- NOTE | 2025-02-22 15:20 | PTOTSP ---
Speech Language Pathology
Pt seen for clinical bedside swallow evaluation. RN reported that pt with delayed coughing up eggs earlier this date. Tachypneic at rest. Oral care completed with use of suction toothbrush. Thick yellow secretions removed from oral cavity/lips.
P.O. trials of puree and thin liquids provided. Adequate oral phase noted with limited consistencies trialed. Audible swallow noted, likely indicative of incoordination. Delayed throat clearing also noted, suspect aspiration. Pt is at an
extremely high risk for aspiration given prolonged extubation, multiple surgeries with significant deconditioning, and alertness level.
Recommend:
(1) NPO
(2) Oral care 4x/day with suctioning as needed
(3) Non-oral meds
(4) Allow ice chips and single sips of thin water sparingly post oral care given supervision per Aspiration Risk Hydration Protocol (ARHP)
(5) LABORER PIPELINE to continue to follow
--- NOTE | 2025-02-22 16:23 | CM ---
Patient with Dx Septic Shock, ischemic bowel from SMA Thrombosis, Post-op Ileus, anemia, extubated 02/18, HF. 5 surgeries as per colorectal surg notes 02/22. Room air. Receiving IV Amiodarone, IV Lasix, Heparin gtt, IV Dilaudid prn, IV Toradol prn.
NPO/TPN. PT/OT recommend skilled rehab.
As per prior CM notes, plan is for d/c to [facility].
Plan [facility] when medically ready.
[2025-02-22 18:01] LABS: Hematocrit 26.1 % (39.0-52.0); Hemoglobin 8.2 g/dL (13.0-18.0)
--- NOTE | 2025-02-22 18:40 | PTCARENOTE ---
Pt's 1800 hgb stable at 8.2. and updated. advised 'keep the hep gtt going, I�d say. If it turns frankly red or black, then hold and would need GI consult. Otherwise, keep watching.' advised next hgb check with morning
labs is fine.
[2025-02-22] MEDS: NSS (PRESERVATIVE FREE) 0.25 ML IV (21:00)
[2025-02-22] MEDS: Parenteral Nutrition, Central 1660 IV (21:00)
[2025-02-22] MEDS: LASIX 40 MG IV (22:00)
[2025-02-22 23:47] LABS: Glucose - Point of Care 148 mg/dl (70-99)
[2025-02-23] VITALS (32 sets, daily range): BP systolic 65–157; BP diastolic 21–135; BMI 33.2
--- NOTE | 2025-02-23 00:08 | W.PN.UPDATE ---
Addendum entered and electronically signed by JEANINE Alaniz 02/23/25 02:18:
Ct scan abd: shows perforated bowel and free air (see report scanned from [facility]). ICU CLAMSHELL ENGINEER notified surgeon and pt will be returning to OR.
add to original note below:: also during this assessment pt was lethargic which is a change from previous assessments. But remains on room air.
Original Note:
Update Note
Progress Note Update
Pt noted to be back in afib with RVR HR up to 160s despite being on amio gtt and lopressor 7.5mg iv q6h. Reached out to cardiology Dr clark for suggestion to treat HR- advised to restart amio rate to 1mg overnight. Also can increase lopressor to
10mg iv q6h if BP can support. Pt also tachypneic with RR in 40s-50s at times.
Abd distended and firm. HH was better at 1800.
Vitals hr 150s-160s, bp 90/50s, t 100.0 axillary
PT with hx of multiple abd surgeries this admission including perf'd bowel. Which presented in a similar way.
Will send for CT abd to r/o bleed vs perforation or other causes of sudden HR increase and tachypnea
check labs ,ABG. put on bipap
Given complex history and high risk for intubation again will transfer to icu for closer monitoring.
--- NOTE | 2025-02-23 00:18 | PTCARENOTE ---
Pt with tachycardia up to 160s, afib, tacypnea to the 50s-60s. Pt appears pale, minimally verbally responsive, moans. Abdomen round, distended. KIKI drain with minimal output, KIKI drain continues to fill with air promptly following decompression of
bulb. GRADING MACHINE FEEDER contacted regarding pt status, PRN medication given per JAN. Stat dose lasix given per JAN. Pt being transported to Stat CT scan prior to tx to ICU per GRADING MACHINE FEEDER orders.
[2025-02-23 01:34] LABS: Hematocrit 27.3 % (39.0-52.0); Hemoglobin 8.4 g/dL (13.0-18.0); Mean Corp Hgb Conc. 30.8 g/dL (33.0-37.0); Mean Corpuscular Hgb 33.6 pg (27.0-31.0); Mean Corpuscular Volume 109.2 fL (80.0-94.0); Mean Platelet Volume 11.1 fL (7.4-10.4); Platelet Count 459 10^3/uL (130-400); Red Cell Dist. Width 18.9 % (11.5-14.5); White Blood Cell Count 40.7 10^3/uL (4.8-10.8)
[2025-02-23 01:35] LABS: INR 1.72; PT 20.3 Sec (11.4-14.6)
[2025-02-23 01:48] LABS: B.E. -16.6 mmol/L; PCO2 30 mmHg (35-48); PO2 214 mmHg (83-108)
[2025-02-23 01:49] LABS: HCO3 10.7 mmol/L (21-28); O2 Therapy ROOM AIR; pH 7.16 (7.35-7.45)
[2025-02-23 01:50] LABS: ALT (SGPT) 66 U/L (0-50); AST (SGOT) 141 U/L (17-59); Albumin 1.8 g/dl (3.5-5.0); Alkaline Phosphatase 115 U/L (38-126); Blood Urea Nitrogen 54 mg/dl (9-20); Calcium 8.3 mg/dl (8.4-10.2); Carbon Dioxide 12 mmol/L (22-30); Chloride 114 mmol/L (98-107); Estimated Creatinine Clearance 63 ml/min; Glucose 127 mg/dl (70-99); Potassium 4.7 mmol/L (3.5-5.1); Sodium 146 mmol/L (135-145); Total Bilirubin 3.9 mg/dl (0.2-1.3); eGFR 49.02
[2025-02-23] MEDS: VERSED 2 MG IV (01:53)
[2025-02-23] MEDS: SODIUM BICARBONATE 100 MEQ IV ×2 (01:54→07:08)
[2025-02-23] MEDS: NOVOLOG FLEXPEN-MODERATE RESISTANCE SC ×3 (01:55→11:18)
--- NOTE | 2025-02-23 01:55 | PTCARENOTE ---
Pt upgraded from IMU due to hemodynamic concerns, tachypnea. Placed on Bipap briefly in IMU. Upon arrival to ICU bed, immediately intubated, GI notified of Free air in abdomen. Surgery team called in, est. time 90 minutes to OR.
[2025-02-23] MEDS: ZOSYN 100 IV (02:23)
[2025-02-23] MEDS: LR 500 IV (02:24)
[2025-02-23] MEDS: LEVOPHED 250 IV ×4 (02:24→12:56)
[2025-02-23] MEDS: PITRESSIN 100 IV ×2 (02:38→08:13)
[2025-02-23 02:52] LABS: Absolute Neutrophils -Man Diff 36.2 10^3/uL (1.4-6.5); Atypical Lymphocytes 1 %; Band Neutrophils 40 % (0-3); Lymphocytes 3 % (20-51); Monocytes 4 % (2-9); Myelocytes 3 % (-); Segmented Neutrophils 49 % (42-75)
[2025-02-23 02:53] LABS: Anisocytosis 1+; Macrocytosis 1+; Normal RBC Morphology No; Nucleated Red Blood Cells 9 (-); Platelets Checked Yes; Polychromasia Slight; Toxic Granulation 1+; Vacuolated Segs 1+
[2025-02-23] MEDS: SODIUM BICARBONATE 1150 MEQ IV ×2 (02:58→11:10)
--- NOTE | 2025-02-23 03:04 | PTCARENOTE ---
Rec pt. from IMU, CT scan revealed free air in ABD, Gen Surg notified.
Pt. immediately upon arrival to ICU became obtunded failed BIPAP, decision made to intubate.
Hemodynamically unstable, Maxed on Norepi, Vasopressin added.
Arterial access gained however not correlating well with NIBP, ICU ERIN notified decision to base titration metrics off of NIBP at this time.
Gen surg bedside to assess patient, decision made to go to OR, Family notified via Gen Surg to gain consent, family in route to make decision on withdrawal of care vs procedure, see Surg note for further details. Heparin placed on hold per surgery
team. TPN stopped due to lack of central access in place of life sustaining vasopressor medications.
[2025-02-23 03:07] LABS: Total Cells Counted 100
--- NOTE | 2025-02-23 03:10 | W.PN.ANESINT ---
Anesthesia Intubation Note
- Intubation Note
Intubation Note:
Diagnosis: Respiratory Failure
Blade: Glidescope 3
Tube Size: 8.0
Depth: 24
Side Taped: Right
Drugs Used: Versed 2 mg, Succinylcholine 120 mg
Grade View: 1 view
EtCO2 Present: Yes
Atraumatic: Yes
Attempts: 1
Insertion Start and Stop Time: 02/24 116, 02/23 117
SaO2 Pre: Unable to attain
SaO2 Post: Unable to attain
Glidescope Used: Yes
Other Airway Adjustments: None
Pre-Oxygenated: BiPAP
Portable Chest X-Ray: Pending
RSI: Yes
Suctioned: No
Bilateral Breath Sounds Confirmed: Present
Vent Settings:
Settings per _ICU__Attending Physician
--- NOTE | 2025-02-23 03:12 | W.PN.ANS.LIN ---
Anesthesia IV & A-Line Note
- IV/Arterial Line
Right Radial Arrow 20 (01/15)
Diagnosis: Respiratory Arrest
IV Line Comments: Uneventful Procedure
Allens test completed pre-procedure: Yes
A-Line Comments: Sterile technique as per standard protocol, Uneventful procedure, Seldinger technique used, Ultrasound guided insertion, Biopatch applied
Funtioning A-line in situ: Yes
A-line Insertion Start Time: 01:32
A-line Insertion Stop Time: 01:38
A-line in at:: 01:38
--- NOTE | 2025-02-23 03:34 | W.PN.UPDATE ---
Update Note
Progress Note Update
Brief colorectal surgery note:
Paged at 1:[address] scan findings by ICU neuroradiologist. Patient recently decompensated on the floor, was transferred to the ICU and stat CT scan was performed which demonstrated free air particularly around the area of the anastomosis.
Patient was intubated, pressors started. I did ask for the heparin drip to be stopped
2 AM I discussed with the patient's Sister Keyla to update them about these findings and discuss goals of care. At this point they were interested in pursuing surgery if deemed necessary.
2:30 AM I examined the patient at bedside. Patient maxed out on pressors with 30 of Levophed and 0.04 vaso. His heparin drip had been briefly restarted but this was stopped. I spoke with Keyla again around 3 AM regarding his clinical situation
and that he has high risk for mortality whether he is brought to the operating room or not. They agreed to see how he settled out in the next 30 minutes but wanted to come in to see him before going to the operating room.
3:30 AM patient's blood pressure holding steady at the same dose of pressors. He he is following commands. His sister Aparna, who is a nurse was at bedside.
Will plan for to take the patient to the OR emergently for an exploratory laparotomy, likely small bowel resection and open abdomen. They understand that if there is a significant amount of bowel that is or dying we would bring him back to the
ICU and plan to withdraw care otherwise the plan will be to bring him back Tuesday for reexploration.
Risks/Benefits/Alternatives, expected postoperative course and possible complications (bleeding, infection, injury to surrounding structures, acute/chronic pain) discussed at length. Patient's family wishes to proceed with surgery. All questions
answered. Consent obtained from his sister Aparna in person, and verbally from Keyla.
I spent 75+ minutes in total for the care of this patient today including direct patient care and counseling, reviewing labs, imaging, coordination of care, as well as documentation.
--- NOTE | 2025-02-23 04:03 | PTCARENOTE ---
Family arrived and are bedside.
Spoke w. Gen Surg, pt. to be taken to OR consent formally signed, OR team in route formally.
[2025-02-23] MEDS: TORADOL IV (04:46)
--- NOTE | 2025-02-23 04:47 | PTCARENOTE ---
Pt. transported to OR for Ex Lap.
--- NOTE | 2025-02-23 05:38 | W.IMMPOSTOP ---
Surgical Immed Post Op Note
-
Primary Surgeon: Saeid Sarah MD
Assisting Surgeon: None
Pre-op Diagnosis: Perforated viscus
Post-op Diagnosis: Same
Procedure Performed:
1. Exploratory laparotomy, washout
2. Small bowel resection
Anesthesia Type: General
Specimen / Cultures: Small bowel
Estimated Blood Loss: 11 cc
Complications: None
Operative Findings: After removing the midline bry, KIKI and midline PDS sutures the abdomen was entered safely with immediate succus and blood noted throughout the abdomen. The abdomen was essentially frozen, but the perforation was immediately
noted at the area of the crossing staple lines of the small bowel-small bowel anastomosis. Using careful blunt dissection we were able to free up the small bowel proximally and distally and this piece was resected using 2 fires of a AHMET 80 purple
load. The remainder the bowel looked dusky/ischemic which was not surprising given the degree of pressors that he was on however there was no elizabeth necrosis identified.
POST OP PLAN:
Imaging: None
Labs: Routine AM
Diet: N.p.o., NG tube to low intermittent wall suction
Analgesia: Per ICU
Neuro/vascular checks: Per ICU
AC/AP: Hold Therapeutic AC, Ok for DVT PPx
Activity: Ad Ilana
Wound/Incisions/Drains: Open abdomen/ABThera VAC dressing in place
Abx: Continue broad-spectrum antibiotics
Dispo: ICU, guarded prognosis. Will update family.
--- NOTE | 2025-02-23 06:36 | PTCARENOTE ---
pt. arrived back from OR.
Wound vac in place, FEM art line placed.
All gtt remain the same.
[2025-02-23 06:41] LABS: B.E. -19.5 mmol/L; Ionized Calcium 1.02 mMOL/L (1.15-1.33); O2 Saturation % 99.8 % (94-98); PCO2 28 mmHg (35-48); PO2 178 mmHg (83-108); Sodium 135 mMOL/L (136-145)
[2025-02-23 06:44] LABS: HCO3 8.7 mmol/L (21-28); Potassium 6.9 mMOL/L (3.5-5.1)
[2025-02-23] MEDS: DEXTROSE 50% SYRINGE 12.5 GRAMS IV ×2 (06:50→12:16)
--- NOTE | 2025-02-23 06:51 | OR.RPT ---
Operative Report
Operative Report
Patient Name: Buster Velazquez
: 1965
Date of Operation: 02/23/2025
Preoperative Diagnosis: Perforated viscus
Postoperative Diagnosis: Same
Procedure(s):
1. Exploratory laparotomy, abdominal washout
2. Small bowel resection
Surgeon(s):
Dr. Sarah
Customer Care Voice Consultant(s):
None
Anesthesia: General
Estimated Blood Loss: 11 cc
Urine Output: See anesthesia records
Drains/Lines/Implants: ABThera VAC placed
Specimens: Small bowel
Indication for surgery:
This is a 59-year-old male with a history of atrial fibrillation on Eliquis, hypothyroidism, known peripheral vascular disease who presented to our hospital in mid January with abdominal pain found to have an SMA occlusion. He was taken back to the
OR multiple times after small bowel resection but ultimately was put back in continuity and closed on 02/11/2025. Overall he had been improving gradually however on 02/22/2025 he became hypotensive and was transferred to the ICU, where he was noted
to have an acidosis and elevated lactate as well as worsening abdominal pain he underwent stat CT scan which demonstrated free air concerning for perforated viscus. The patient continued to deteriorate clinically and was intubated in the ICU. A
family discussion was had and as the patient remained stable on his very high pressor requirement the decision was made to proceed with surgery and surgical exploration. Consent was obtained from his sisters.
Operative Findings: After removing the midline bry, KIKI and midline PDS sutures the abdomen was entered safely with immediate succus and blood noted throughout the abdomen. The abdomen was essentially frozen, but the perforation was immediately
noted at the area of the crossing staple lines of the small bowel-small bowel anastomosis. Using careful blunt dissection we were able to free up the small bowel proximally and distally and this piece was resected using 2 fires of a AHMET 80 purple
load. The remainder the bowel looked dusky/ischemic which was not surprising given the degree of pressors that he was on however there was no elizabeth necrosis identified.
Details of the operation:
The patient was brought to the operating room and positioned supine on the operating table. General anesthesia was induced. A timeout was performed. The abdomen was prepped and draped in the usual fashion. The midline bry and KIKI drain were
removed from. This subcutaneous tissue was opened and small amount of old clot was removed. The midline fascial PDS sutures were identified and cut out. The abdomen was entered safely with immediate almanzar of succus and old blood. The abdomen was
essentially frozen and there was significant staining from the succus throughout the abdomen. His small bowel anastomosis was immediately identified however and it appeared that there was a perforation at the crossing staple lines. Using warm
water and blunt dissection the small bowel proximal and distal to this anastomosis/perforation was freed up. An appropriate division point was identified. While there was no clear necrotic small bowel all of the bowel looked dusky which was
expected given the degree of pressors that he was on. The bowel was divided proximally and distally to the perforation using 2 fires of a AHMET 80 purple load. The intervening mesentery was divided using a LigaSure device. A small enterotomy was
made to the specimen while it was being removed but this was of no consequence as this piece of bowel was already being excised. The abdomen was washed out but given the frozen and friable nature of the tissues a thorough exploration was not
performed as this would likely cause more damage then than good. An ABThera wound VAC was placed and secured to the skin with a few tacking bry. The vacuum suction held without leaking. 2 units of blood were given intraoperatively. His right
radial A-line clotted so anesthesia plan to place a femoral line before returning him to the ICU with guarded prognosis.
I was the attending physician and performed the procedure with no assistance. I was present for all portions of the case.
Saeid Sarah MD
[2025-02-23 06:54] LABS: APTT 69.6 Sec (23.4-35.0); Hematocrit 32.6 % (39.0-52.0); Mean Corp Hgb Conc. 30.7 g/dL (33.0-37.0); Mean Corpuscular Hgb 32.3 pg (27.0-31.0); Mean Corpuscular Volume 105.2 fL (80.0-94.0); Mean Platelet Volume 11.4 fL (7.4-10.4); Platelet Count 390 10^3/uL (130-400); Red Cell Dist. Width 22.5 % (11.5-14.5); White Blood Cell Count 36.8 10^3/uL (4.8-10.8)
[2025-02-23 07:07] LABS: Vancomycin Random 15.5 ug/ml
[2025-02-23 07:20] LABS: Glucose - Point of Care 118 mg/dl (70-99)
[2025-02-23] MEDS: CALCIUM CHLORIDE 10% SYRINGE 60 MG IV (07:27)
[2025-02-23] MEDS: DEXTROSE 50% SYRINGE 50 GRAMS IV (07:28)
[2025-02-23] MEDS: NOVOLIN R 5 UNITS IV (07:31)
[2025-02-23] MEDS: LASIX IV (07:35)
[2025-02-23] MEDS: DESENEX/MITRAZOL/ZEASORB 1 APPLIC TOPICAL (07:35)
[2025-02-23] MEDS: PROTONIX IV 40 MG IV (07:35)
[2025-02-23] MEDS: NSS (PRESERVATIVE FREE) 10 ML IV (07:35)
--- NOTE | 2025-02-23 07:36 | W.PN.INTV ---
Addendum entered and electronically signed by Tana Rivera DO 02/23/25 11:11:
Worsening acidosis, 2 additional amps bicarb given, discussed case with renal, CRRT to begin
Will add epinephrine gtt as well, now on levo@26
Prognosis remains poor, family aware
Original Note:
Today's Communication / Plan
Recommendations
Returned to ICU for recurrent perf s/p intervention by Surg
Now on 2 pressors, profound acidosis
Agree with renal consult, consider CRRT
Reintubated
Very poor prognosis given severity of perforation, NAM, sepsis, acidosis in the background of end stage CM
Discussed with family, he remains full code. They wish to continue all measures despite understanding his condition
Discussed case with care team
Assessment
-
59-year-old male with a past medical history of A-fib, chronic HFrEF, LLE arterial thromboembolism (06/2023), history of acute limb ischemia of RLE with thromboembolic occlusion of the right iliac system s/p thromboembolectomy right Iliac+SFA,
popliteal artery and profundo-femoral artery (10/2024) who presents with abdominal pain and SOB. He was in his usual state of health USER EXPERIENCE TEAM LEAD when he developed sudden periumbilical abdominal pain without nausea or vomiting. In the ER, initial labs
showed potassium 2.9, lactate 5.2, T. bili 2.1, and proBNP 4580. CTA A/P showed thrombosis of the SMA with small bilateral pleural effusions and groundglass attenuation in the bases of the lungs. He was given 40 mg IV Lasix in the ER, Dilaudid 0.5
mg, potassium repletion, 1 L NS 0.9% and Zofran. Vascular surgery was consulted and given his significant abdominal pain of acute onset he was consented for the OR. He underwent exploratory laparotomy with thromboembolectomy of superior mesenteric
artery and placement of an AbThera VAC. Postoperatively he returned to the ICU intubated, and Senior Housekeeper services consulted for additional management/recommendations. Patient was extubated and improved, and subsequently downgraded to the IMU on
01/31. He was downgraded to telemetry on 02/04 where he has been managed. Unfortunately on 02/05 he developed a small bowel obstruction. On 02/07, repeat CT A/P showed free air in the abdomen indicating a perforated viscus. He went to the OR for an
ex lap with small bowel resection and placement of an ABThera wound VAC, and is now transferred back to the ICU intubated.
Recurrent small bowel perforation s/p emergent OR for ex lap and SB resection (16cm) 02/23
s/p Take-Back/Small bowel perforation with mesenteric ischemia and SMA occlusion s/p ex lap with small bowel resection, lysis of adhesions and placement of ABThera wound VAC, wound closure on 02/11
s/p Take-Back/Exploratory laparotomy, abdominal washout, mesenteric angiography with SPY technology, placement of ABThera VAC 02/08/25
s/p Exploratory laparotomy, small bowel resection of 120 cm, lysis of adhesions, placement of ABThera wound VAC 02/07/25
s/p Take-Back/Exploratory laparotomy, partial omentectomy, mesenteric angiography with ICG, TAP block, abdominal closure 01/28/25
Acute mesenteric ischemia with SMA occlusion s/p Exploratory laparotomy, Thromboembolectomy of superior mesenteric artery, Placement of AbThera VAC (Gen Surg + Vasc Sx) 01/27/25
Ventilator dependent respiratory failure, re-intubated 02/22
Intubated 02/08-- extubated 02/18
Septic shock on pressors
Acute on Chronic heart failure with reduced ejection fraction, LVEF 10 to 15%, proBNP 07337
Atrial fibrillation with rapid ventricular rate
Hyperglycemia
Abnormal urinalysis concerning for UTI
Chronic conditions USER EXPERIENCE TEAM LEAD:
Paroxysmal a-fib on Eliquis s/p DH-Cardioversion 04/11/2024
Hyperthyroidism
Chronic HFrEF
Nonischemic cardiomyopathy
PAD s/p Left lower extremity arterial occlusion due to thromboembolism
status post thrombectomy (Dr. Holder) 07/03/2023
s/p right iliac thromboembolectomy 10/29/24
Washout right groin with evacuation/debridement of seromatous collection and fibrinous exudate (Dr. Holder) 11/29/2024
Appendectomy 1986
Plan
Returns to ICU for recurrent small bowel perforation 02/22-02/23
On Dilaudid PRN, will add on fent PRN, prop
RASS goal -2
Recurrent septic shock due to bowel perforation
History of A-fib with RVR and HFrEF, EF 10% on ECHO
Resumed on levo @24, Vaso, add Epi if needed--weaning down again
Continue amiodarone gtt (AFib history)
Heparin drip for anticoagulation has been held due to abdominal hematoma, resumed 02/14
Hold 24 hours postop, resume tomorrow 02/24
LUIS ENRIQUE 01/04/2025 with EF 10 to 15%, normal RV size and function, moderate to severe TR, large occlusive thrombus in left atrial appendage.
Repeat echo 02/14 with resolution of thrombus, EF remains 10%
Cards following, ongoing diuresis
Intubated since 02/08-- extubated 02/18
Reintubated 02/22 for OR, vent settings reviewed: AC 550/20/40/5
ABG(s) reviewed- .09/10/178/8.7 (met acid + resp alk compensatory)
BIPAP continued PRN
Chest x-ray repeat with increased right lower lobe infiltrate, overall mild, ETT low but acceptable
Aspiration precautions
NGT in place, NPO--continued TPN per team
Extensive OR visits as noted above
Postoperative management as per colorectal surgery
Continue NGT on low continuous wall suction per surgery
Could potentially return to OR again on Sunday 02/25
Heparin drip hold x 24 hours
Reviewed oncology evaluation few weeks ago, hypercoagulable workup negative at that time.
Fibrinogen normal, no evidence of DIC presently
Continue SCDs
Follow CBC postop
NAM noted with worsening met acidosis, will need renal consult
Due to severe ATN
Monitor input and output closely
Follow weights/IOs
Can consider CRRT due to profound acidosis
Patient now on meropenem. ID following, resumed on MFG
Rev LUIS ENRIQUE from Dec 2024, large thrombus. Repeat echo 02/14 reveals no obvious thrombus, EF 10%
UA on 02/05/2025 was positive for nitrites, with +1 leukocyte esterase and 6�10 urine WBC
+Enterococcus wound
Follow cultures, follow fever curve, follow leukocytosis
Likely with DM 2
HbA1c 6.3 on 01/27/2025
Started insulin drip on 02/08 given he is critically ill with hyperglycemia - this is now weaned off; will resume ISS q6hr
Remains on TPN
Gi Prophylaxis: PPI IV
DVT ppx: Heparin gtt resumed 02/14
Family Discussions
Miguel 02/23- Prognosis is poor given multiple trips to OR, now with profound acidosis, in setting of low EF. I discussed GOC with sister who wants patient to remain full code. She feels '12 mins of CPR' is a good number. She understands his
prognosis is poor given his end stage CM.
Diagnostic Data
CXR 02/18/25- Support apparatus in position including right-sided PICC line with tip at the level of the cardiac right atrium. Line could be pulled back 3 cm. Cardiomegaly, unchanged.
Right basilar opacification without significant change including differential diagnostic possibilities.
02/13/25- Mild bibasilar opacification probably due to limited inspiration. Pneumonia not excluded. Stable
CTA Abd/Pelvis w/wo IV contrast 01/27/2025: Thrombosis of superior mesenteric artery branches, new since prior examination. No bowel thickening or pneumatosis to suggest bowel ischemia. No acute inflammatory changes within the abdomen or pelvis. Mild
diverticulosis without acute diverticulitis. Stable fatty infiltration of liver. Stable low-attenuation right adrenal mass 1.3 cm, most consistent with benign adenoma. Hazy attenuation in the dependent lung bases. Groundglass attenuation. Small
bilateral pleural effusions. Possible mild pulmonary edema and/or atelectasis.
CT A/P w IV and oral contrast 02/07/2025: New mild intraperitoneal free air indicating a perforated viscus. The exact location is difficult to discern, but distribution of free air greatest in the anterior mid to upper abdomen near the persistently
dilated proximal small bowel loops that again contain air-fluid levels. Long segment distal small bowel smaller in caliber with circumferential wall thickening suggestive of an enteritis.
ECHO 02/14/25- Left ventricle is severely dilated with severely reduced left ventricular systolic function. Severe Global hypokinesis. Left ventricular ejection fraction is 10 to 15% by visual estimate. Normal right ventricular size and function.
Mildly dilated left atrium. Moderate mitral regurgitation. Moderate tricuspid regurgitation. Estimated pulmonary artery pressure of 45 mmHg, assuming a right atrial pressure of 3 mmHg. Compared to the previous echo 01/04/25, there is no significant
change. The left atrial appendage was unable to be visualized on this transthoracic study.
-----
Critical Care time 75 mins -- The patient is admitted for acute critical illness for the treatment of vital organ failure and/or prevention of further life-threatening conditions. Total care includes time spent in review of history, physical exam,
medications, hemodynamic/ventilator parameters, laboratory data, imaging and discussion with house staff, pharmacy, respiratory therapy, demurrage clerk, and nursing. Reviewed events of prior week. Case discussed with care team and family.
Subjective Dataa
Subjective Data
Date of Service:
Date of Service: February 23, 2025
Chief Complaint: Senior Housekeeper Follow Up
Subjective:
Re-eval placed 02/22, developed free air and underwent urgent trip to OR early 02/23 AM
Now intubated in ICU on 2 pressors
Objective Data
Data Reviewed
Vital Signs / I&O / Oxygen:
Vital Signs
Temp Pulse Resp BP Pulse Ox
99 F 98 24 124/86 100
02/23/25 04:34 02/23/25 06:30 02/23/25 06:30 02/23/25 04:34 02/23/25 07:19
Intake and Output
02/22/25 02/23/25 02/24/25
06:59 06:59 06:59
Intake Total 2901.4 / 2901.4 1795.4 / 1795.4
Output Total 2926 / 2926 752 / 752
Balance -24.6 / -24.6 1043.4 / 1043.4
SaO2 [CPAP] 96
SaO2 [ASV] 100
SaO2 [A/C] 100
SaO2 100
Nasal Cannula flow liters per 2
minute
Physical Exam
General: Comfortable, Other (sedated/intubated) and Other (NAD, obese)
HEENT: Normocephalic and Anicteric
Cardiovascular: S1-S2, Regular Rhythm and Peripheral Edema (bilateral upper and lower extremities)
Respiratory: Wheeze (negative), Crackles (n), Rhonchi (Scattered), Non-Labored Respirations, Stridor (negative) and ET Tube
GI: Soft, Non Distended (Abdominal binder in place), NG Tube, Other (KIKI drain, mild serosanguineous fluid) and Other (incision noted)
Neurology: Unresponsive (minimally responsive on low sedation) and Non Verbal
Skin: Warm, Dry, Cyanosis (negative) and Rash (n)
Labs/Micro/Reports
Lab Data
02/23/25 06:29
Laboratory Results
02/22/25 02/23/25 02/23/25
23:59 01:07 01:42
PT Cancelled 20.3 H
INR Cancelled 1.72
APTT
pH 7.16 L*
pCO2 30 L
pO2 214 H
HCO3 10.7 L*
O2 Delivery Level Room air
02/23/25
06:29
PT
INR
APTT 69.6 H
pH 7.10 L*
pCO2 28 L
pO2 178 H
HCO3 8.7 L*
O2 Delivery Level
Microbiology
03/31/25 15:30 Other-Please specify - Other Fungal Culture - Preliminary
Cira albicans
--- NOTE | 2025-02-23 07:58 | PHA.VAN.FU ---
Vancomycin Assessment / Plan
- Assessment
Renal Function: SCR Increasing (BASELINE ~0.8 MG/DL)
WBC's are: Trending Down
In the past 24 hrs, patient has been: Afebrile
- Assessment - Therapeutic Drug Monitoring
Random Level: 15.5 ~18 HRS AFTER 1250MG DOSE 02/22 @1247
- Dosing Plan
Dosing by Level: Re-dose today (VANCO 1250MG X1)
- Monitoring Plan
Random Level: 02/24 @0600
- Follow Up
Pharmacy will continue to follow.
Vancomycin Follow UP
- -
Patient Age: 59
Patient Sex: Male
Vancomycin Day #: 7
Indication: Gi / Intra-Abdominal
Requesting Provider: Irina Bruno
Height / Weight:
Height 6 ft
Actual Weight 111 kg
IBW in k.6
Adjusted BW in k.4 (BMI 34.2)
Pertinent Past Medical History: mesenteric ischemia w/perf; intubated
- Vital Signs / Lab Results
Temp Pulse Resp BP Pulse Ox
99 F 98 24 124/86 100
02/23/25 04:34 02/23/25 06:30 02/23/25 06:30 02/23/25 04:34 02/23/25 07:19
Lab Results - Hematology
02/21/25 02/22/25 02/22/25
06:11 03:32 23:59
WBC 15.0 H 15.1 H Cancelled
Band Neutrophils
02/23/25 02/23/25
01:07 06:29
WBC 40.7 H* 36.8 H
Band Neutrophils 40 H
Lab Results - Chemistry
02/21/25 02/22/25 02/22/25
06:12 03:32 23:59
BUN 42 H 43 H Cancelled
Creatinine 0.9 0.9 Cancelled
Estimated Creat Clear 112 112 Cancelled
Albumin Cancelled
02/23/25
01:07
BUN 54 H
Creatinine 1.6 H
Estimated Creat Clear 63
Albumin 1.8 L
02/22/25 02/23/25
23:59 01:07
Lactic Acid Cancelled 11.0 H*
Microbiology Results
02/11/25 15:30 Fungal Culture - Preliminary
Other-Please specify - Other Cira albicans
Therapeutic Drug Monitoring
Vancomycin Peak 31.2 ug/ml (18-26) H 02/20/25 22:15
Vancomycin Trough 20.5 ug/ml (5-20) H* 02/21/25 06:12
Random Vancomycin 15.5 ug/ml 02/23/25 06:29
[2025-02-23 07:59] LABS: Blood Urea Nitrogen 50 mg/dl (9-20); Calcium 7.5 mg/dl (8.4-10.2); Carbon Dioxide 7 mmol/L (22-30); Chloride 110 mmol/L (98-107); Estimated Creatinine Clearance 51 ml/min; Glucose 32 mg/dl (70-99); Lactic Acid 16.3 mmol/L (0.7-2.0); Magnesium 2.4 mg/dl (1.6-2.3); Sodium 143 mmol/L (135-145)
[2025-02-23 08:11] LABS: Potassium 6.9 mmol/L (3.5-5.1)
[2025-02-23 08:14] LABS: Glucose - Point of Care 222 mg/dl (70-99)
[2025-02-23 08:20] LABS: Triglycerides 122 mg/dl (10-149)
--- NOTE | 2025-02-23 08:28 | W.PN.ID1 ---
Date of Service
Date of Service: February 23, 2025
Today's Communication
continue vancomycin
add meropenem
add micafungin
Note plans for possible return to OR tuesday
Assessment / Plan
Secondary peritonitis
Fevers
Leukocytosis - worsening
Mesenteric ischemia with perforation and necrotic bowel
- s/p washout and primary abdominal closure (02/11/2025)
VDRF
NAM
Severely dilated cardiomyopathy with markedly diminished EF
Hx A-fib
Recommendations:
Abd wound culture with Enterococcus (amp resistant) and harriet albicans
Leukocytosis stable.
Follow white count and temperature curve.
continue vancomycin
add meropenem
add micafungin
Note plans for possible return to OR tuesday
Patient is critically ill
Evaluation required: review of multiple cultures, adjustment of antibiotics
����������������������������������������������������������
Chief Complaint
-: Fever and Leukocytosis
Subjective / Review of Systems
afebrile
now requiring [address] with free air, probably bowel perforation
taken to the OR this AM for Exploratory laparotomy, abdominal washout, Small bowel resection
'succus and blood noted throughout the abdomen'
perforation noted
remainder of bowel dusky/ischemic but no elizabeth necrosis
intubated sedated
Vital Signs / Physical Exam
Vital Signs
Vital Signs
Temp Pulse Resp BP Pulse Ox
97.5 F 98 24 124/86 100
02/23/25 08:18 02/23/25 06:30 02/23/25 06:30 02/23/25 04:34 02/23/25 07:19
Physical Exam
Constitutional: Acutely Ill, Chronically Ill and Other (intubated, sedated)
Cardiovascular: Regular Rate and S1/S2; Negative Murmur or Rub
Pulmonary: Clear and Symmetric; Negative Wheezes or Rales
Gastrointestinal: Soft, Non Tender, Distended and Normal Bowel Sounds
Skin: Warm and Dry; Negative Rash or Jaundice
Wound: Other (wound vac in place)
Neurological: Negative Awake
Objective Data
Lab Data
Lab Results
02/23/25 06:29
PT 20.3 Sec (11.4-14.6) H 02/23/25 01:07
INR 1.72 02/23/25 01:07
APTT 69.6 Sec (23.4-35.0) H 02/23/25 06:29
Estimated Creat Clear 51 ml/min 02/23/25 06:29
Lactic Acid 16.3 mmol/L (0.7-2.0) H* 02/23/25 06:29
Total Bilirubin 3.9 mg/dl (0.2-1.3) H 02/23/25 01:07
AST 141 U/L (17-59) H 02/23/25 01:07
ALT 66 U/L (0-50) H 02/23/25 01:07
Alkaline Phosphatase 115 U/L (38-126) 02/23/25 01:07
Most recent labs reviewed.
Micro Results:
02/11/25 15:30 Fungal Culture - Preliminary
Other-Please specify - Other Harriet albicans
02/17/25 09:06 C. difficile GDH Antigen & Toxins - Final
Feces/Stool Negative for toxigenic C.difficile
02/11/25 15:30 Wound Culture - Final
Abdomen Enterococcus faecium
Gram Stain - Final
02/11/25 15:30 Anaerobic Culture - Final
Other-Please specify - Other NO ANAEROBES ISOLATED
02/11/25 13:11 Blood Culture - Final
Blood/Venous No Growth - Final Report
02/14/25 13:46 Respiratory Culture - Final
Tracheal Aspirate Usual Respiratory Shireen
Gram Stain - Final
02/07/25 18:36 Blood Culture - Final
Blood/Venous No Growth - Final Report
02/11/25 14:22 C. difficile GDH Antigen & Toxins - Final
Feces/Stool Negative for toxigenic C.difficile
02/11/25 10:41 Influenza Types A & B (SHERLYN) - Final
Nasal Swab Negative for Influenza A & B, NAAT
Negative results must be combined with clinical observations
and patient history.
Nucleic Acid Amplification test (NAAT)performed on the
[employer] platform.
02/09/25 09:21 Urine Culture - Final
Urine NO GROWTH
01/27/25 12:14 Blood Culture - Final
Blood/Venous No Growth - Final Report
01/27/25 21:32 MRSA Screen - Final
Nose No Methicillin Resistant Staphylococcus aureus isolated.
Wound/abscess/other Cult Preliminary 02/16/25-907
Moderate Enterococcus faecium
Moderate Diptheroids
Organism 1 Enterococcus faecium
1. Enterococcus faecium
M.I.C. RX
--------- ---
Ampicillin >8 R
Daptomycin >4 R
Gentamicin Synergy Screen <=500 S
Linezolid 2 S
Vancomycin 1 S
Imaging:
02/13/2025 CXR (portable): Mild haziness in the right medial lower lung field. Poor visualization of the medial left hemidiaphragm. No pleural effusion or pneumothorax noted.
02/11/2025 CXR (portable): Hazy opacification along both lower lungs without significant change. No significant pleural effusion is noted.
[2025-02-23] MEDS: VANCOCIN 275 MG IV (08:31)
--- NOTE | 2025-02-23 09:30 | PTCARENOTE ---
Assumed care of pt at 0700. Intubated with vent setting as charted. No sedation infusing at this time. Pt grimaces to central pain, weak cough, no gag, +corneals. PERR-sluggish at 3mm. Wide complex afib in 110s, normothermic, Map 70s supported by
vasopressin and levophed. SCDs applied. SpO2 100% with vent on AC30/550/5/40%. Lung sounds diminished. BG 39, 1amp D50 given with repeat BG 118. TPN no infusing due to lact of vascular access. Temp-sensing candelaria in place draining scant nicole urine.
FMS in place draining maroon liquid stool. ABD open at midline with wound vac in place with good seal at 75mm/Hg. Small amount Sanguinous drainage. Masd @ perinium, cleaned and desenex applied. HCO3 and amiodarone gtt infusing. Ca+ repleated and
elevated K+ treated with d50/insulin, and [address] Sarah to bedside and updated.
[2025-02-23] MEDS: MERREM 500 MG IV (09:56)
[2025-02-23] MEDS: STERILE WATER FOR INJECTION 10 ML IV (09:56)
[2025-02-23] MEDS: MYCAMINE 105 MG IV ×2 (10:04→13:45)
[2025-02-23 10:26] LABS: B.E. -22.4 mmol/L; O2 Saturation % 99.7 % (94-98); PCO2 24 mmHg (35-48); PO2 138 mmHg (83-108)
[2025-02-23 10:27] LABS: HCO3 6.5 mmol/L (21-28); pH 7.04 (7.35-7.45)
[2025-02-23 10:36] LABS: Glucose - Point of Care 92 mg/dl (70-99)
[2025-02-23] MEDS: ADRENALIN 250 IV (10:51)
[2025-02-23 10:55] LABS: Blood Urea Nitrogen 46 mg/dl (9-20); Carbon Dioxide 6 mmol/L (22-30); Chloride 111 mmol/L (98-107); Estimated Creatinine Clearance 53 ml/min; Glucose 94 mg/dl (70-99); Potassium 5.3 mmol/L (3.5-5.1); Sodium 143 mmol/L (135-145); eGFR 39.89
[2025-02-23 10:56] LABS: Lactic Acid 19.3 mmol/L (0.7-2.0)
--- NOTE | 2025-02-23 10:58 | PTCARENOTE ---
Briefly lost pulsitile A-line blood flow as critical lab results returning. 2 amps HCO3 given and epinephrine gtt initiated. BP returned. Bryant Niño and Miguel at bedside. Plan of care discussed with sister, Keyla.
[2025-02-23] MEDS: SODIUM BICARBONATE 50 MEQ IV ×2 (11:03)
--- NOTE | 2025-02-23 11:07 | W.CON.NEPH ---
Consultation
-
Date/Time Consultation Requested: 02/23/2025 9 AM
Date/Time Consultation Performed: 02/23/2025 11 AM
Requesting Provider: Dr. Sharma
Performing Provider: Dr. Niño
Reason for Consultation: NAM
Medical History
-
Chief Complaint: NAM
History of Present Illness:
59-year-old male with A-fib, chronic HFrEF (10%), LLE arterial thromboembolism (06/2023), history of acute limb ischemia of RLE with thromboembolic occlusion of the right iliac system s/p thromboembolectomy right Iliac+SFA, popliteal artery and
profundo-femoral artery (10/2024) who presented with abdominal pain and SOB. He was in his usual state of health CLERICAL OFFICE when he developed sudden periumbilical abdominal pain without nausea or vomiting. In the ER, initial labs showed potassium 2.9,
lactate 5.2, T. bili 2.1, and proBNP 4580. CTA A/P showed thrombosis of the SMA with small bilateral pleural effusions and ground glass attenuation in the bases of the lungs. He was given 40 mg IV Lasix in the ER, Dilaudid 0.5 mg, potassium
repletion, 1 L NS 0.9% and Zofran. Vascular surgery was consulted and given his significant abdominal pain of acute onset he was consented for the OR. He underwent exploratory laparotomy with thromboembolectomy of superior mesenteric artery and
placement of an VAC. Patient was extubated and improved, and subsequently downgraded to the IMU on 01/31. He was downgraded to telemetry on 02/04. Unfortunately on 02/05 he developed a small bowel obstruction. On 02/07, repeat CT A/P showed free air
in the abdomen indicating a perforated viscus. He went to the OR for an ex lap with small bowel resection and placement of an ABThera wound VAC. Since then he has returned to the OR multiple times for exploratory laparotomy, washout as well as
further small bowel resections. In the last 24 hours his clinical status has worsened significantly with hypotension now requiring 3 pressors, development of severe metabolic acidosis with severe lactic acidosis, as well as an episode of
hyperkalemia. His creatinine has risen to 2.0 from a baseline of 0.9. He is critically ill.
Past Medical History
Paroxysmal a-fib on Eliquis, hyperthyroidism, chronic HFrEF, left lower extremity arterial occlusion due to thromboembolism (06/2023)
Social History
Tobacco: Former Smoker
Alcohol: Occasional
Family History
Family History: Not Pertinent
Allergies / Home Medications
Allergy/AdvReac Type Severity Reaction Status Date / Time
No Known Allergies Allergy Verified 01/27/25 00:21
�Medication �Instructions �Recorded �Confirmed �Type
methimazole 10 mg tablet 10 mg PO DAILY Thyroid 04/11/24 01/04/25 History
potassium chloride 20 mEq 20 meq PO DAILY Electrolyte 05/22/24 01/04/25 History
tablet,extended release Repletion
apixaban 5 mg tablet (Eliquis) 5 mg PO BID Blood clot 11/06/24 01/04/25 Rx
prevention/tx #60 tabs
empagliflozin 10 mg tablet 10 mg PO DAILY Heart Failure #30 11/06/24 01/04/25 Rx
(Jardiance) tabs
furosemide 40 mg tablet (Lasix) 40 mg PO BID Fluid 11/06/24 01/04/25 Rx
Retention/Swelling #60 tabs
sacubitril 24 mg-valsartan 26 mg 1 tab PO BID Heart 11/06/24 01/04/25 Rx
tablet (Entresto) Disease/Condition #60 tabs
metoprolol succinate 25 mg 75 mg (3 x 25 mg) PO BID Heart 12/03/24 01/04/25 Rx
tablet,extended release 24 hr Failure 30 days #180 tabs
amiodarone 200 mg tablet 200 mg PO DAILY 02/18/25 History
Review of Systems
-
Unable to obtain full review of systems at this time due to: Patient Intubation
Physical Exam
Vital Signs
Vital Signs
Temp Pulse Resp BP Pulse Ox
97.5 F 88 20 124/86 99
02/23/25 08:18 02/23/25 10:00 02/23/25 10:00 02/23/25 04:34 02/23/25 10:00
Lab Results
WBC 36.8 10^3/uL (4.8-10.8) H 02/23/25 06:29
RBC 3.10 10^6/uL (4.70-6.10) L 02/23/25 06:29
Hgb 10.0 g/dL (13.0-18.0) L 02/23/25 06:29
Hct 32.6 % (39.0-52.0) L 02/23/25 06:29
Plt Count 390 10^3/uL (130-400) 02/23/25 06:29
Sodium 143 mmol/L (135-145) 02/23/25 10:20
Potassium 5.3 mmol/L (3.5-5.1) H 02/23/25 10:20
Chloride 111 mmol/L (98-107) H 02/23/25 10:20
Carbon Dioxide 6 mmol/L (22-30) L* 02/23/25 10:20
BUN 46 mg/dl (9-20) H 02/23/25 10:20
Creatinine 1.9 mg/dL (0.7-1.3) H 02/23/25 10:20
eGFR 39.89 02/23/25 10:20
Glucose 94 mg/dl (70-99) 02/23/25 10:20
Calcium 7.0 mg/dl (8.4-10.2) L 02/23/25 10:20
Phosphorus 3.7 mg/dl (2.5-4.5) 02/22/25 03:32
Cnj-W-Huaevbndgbn Pept 80548 pg/ml 02/17/25 03:33
Albumin 1.8 g/dl (3.5-5.0) L 02/23/25 01:07
Physical Exam
Patient is intubated and sedated. Pupils are equal round and reactive to light, sclera were anicteric. ears and nose are intact. Oropharynx was clear. Neck was supple with trachea midline and no thyromegaly. Heart was regular rate and rhythm
without rubs. Tachycardic lower extremities without edema. Lungs were coarse to auscultation bilaterally and with normal excursion. Abdomen was soft, nontender, with no bowel sounds, and no hepatosplenomegaly. Skin was without rash and with normal
turgor.
Data Reviewed
-
Radiology: Image Personally Visualized and interpreted (Chest x-ray on 02/23/2025 by reading shows cardiomegaly, right lower lobe infiltrate)
Medical Tests (Nuc Med, Echo etc): Image Personally Visualized and interpreted (EKG 02/14/2025 by read atrial fibrillation left axis deviation incomplete left bundle branch block lateral ST-T wave abnormality) and Report Reviewed by me (Echocardiogram
on 02/14/2025 ejection fraction 10% moderate MR moderate TR)
Labs: Labs Reviewed by me
Old Records: Reviewed
Assessment/Plan
-
Assessment
Hypotension
Acute kidney injury
Hyperkalemia
Metabolic acidosis
Lactic acidosis
Heart failure reduced ejection fraction 10%
Recurrent small bowel perforation with multiple exploratory laparotomy and bowel resection
Mesenteric ischemia
Atrial fibrillation
Hypocalcemia
Plan
Maintain mean arterial pressure greater than 65
Will start CRRT
Keep I's and O's even
Treat potassium medically
Sodium bicarbonate ampules as needed
Follow lactate
Replete calcium aggressively
Long discussion with . She clearly understands that his prognosis is exceedingly poor. He is unlikely to survive this hospitalization
However, he does remain full code she would like at least 8 minutes of resuscitation efforts should he code
We discussed dialysis and CRRT. Best case scenario is that it would allow temporization of his acidosis and electrolytes until Tuesday when he could conceivably go back to the operating room for further exploratory laparotomy
Critical care time 45 minutes
[2025-02-23 12:24] LABS: Glucose - Point of Care 66 mg/dl (70-99)
[2025-02-23] MEDS: CALCIUM GLUCONATE 290 MG IV (12:27)
--- NOTE | 2025-02-23 12:55 | W.PN.CARDCBS ---
Today's Communication / Plan
-
Continue support of critical illness per staff electrical engineer, primary service and nephrology along with infectious disease.
Continue amiodarone for rate control of atrial fibrillation
EKG ordered
Eventual anticoagulation when able given high thromboembolic risk
Continue pressors and supportive care
Poor overall prognosis
Impression / Plan
-
.
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 Pickett
Primary EP: Dr Solorio
PCP: Dr Peñaloza
HPI: Patient with history of cardioembolic occlusion of left common femoral artery 06/2023, right iliac artery occlusion status post thromboembolectomy 10/29/2024. During that time was also noted to be in persistent rapid A-fib initially discovered
07/2023 with history of noncompliance with medications. Also with known low EF suspected tachycardia mediated status post cath 05/2024 with nonobstructive CAD.
He presented back to the ED 11/2024 due to generalized malaise and was noted to have a seroma of his right groin s/p I/D and wound vac. He was also found to be in decompensated heart failure with reduced ejection fraction and have atrial
fibrillation with rapid ventricular rates. Plan for LUIS ENRIQUE cardioversion but LUIS ENRIQUE 01/04/2025 showed massive occlusive thrombus in left atrial appendage. Most recently, presented on 01/27/2025 with acute onset abdominal pain found to have acute
mesenteric ischemia with SMA occlusion, went to OR for exploratory laparotomy and SMA thrombectomy. Postop shock with metabolic/lactic acidosis, on Levophed and intubated. Cardiology consulted for management of atrial fibrillation and heart failure
Impression:
Acute mesenteric ischemia with SMA occlusion, status post exploratory lap and SMA thrombectomy 01/27/2025 and redo OR 02/07/2025 and OR 02/08/2025
Recurrence of critical illness 02/22/2025 with worsened acidosis, free air requiring small bowel resection and intubation 02/22 - 02/23/2025.
Acute hypoxemic respiratory failure recurrent with intubation 02/22/2025
Shock with metabolic/lactic acidosis
Right groin seroma
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
Persistent atrial fibrillation, first discovered July 2023
Non-[place] myocardial injury
Chronic OAC with eliquis
Left atrial appendage thrombus by LUIS ENRIQUE 12/2024
Chronic HFrEF
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
NSVT
Hyperthyroidism
Noncompliance
Depression
History of ETOH and tobacco abuse
Obesity
Ventilator dependent respiratory failure
ECHO 04/04/2024: EF 10 to 15%, severe global hypokinesis, mild MR, trace TR, PAP 30 to 33 mmHg
Cardiac catheterization 05/22/2024: Nonobstructive coronary disease with normal to mildly elevated right and left-sided filling pressures with normal cardiac output
Echocardiogram 10/30/2024: Severely dilated left ventricle, severely reduced LV systolic function, global hypokinesis with ejection fraction of 5-10%, moderate to severe eccentric TR with PA pressure of 30-35 mmHg, small pericardial effusion.
LUIS ENRIQUE 01/04/2025: LVEF 10 to 15%, definite massive occlusive thrombus in left atrial appendage, mild MR, moderate to severe TR
Plan:
Spoke with family at the bedside. Patient is currently critically ill. He underwent intubation along with transferred to the intensive care unit and reoperation with small bowel resection in the early hours of the morning. He remains
significantly acidemic. In the setting of septic shock. He has required pressor support.
Nephrology going to start CRRT. Bicarb is also being replaced.
Continue supportive care.
Continue pressor support
Continue intubation managed by staff electrical engineer.
Remains in persistent atrial fibrillation.
EKG ordered for today
Anticoagulation currently on hold. Eventually when okay with surgical team resume IV heparin. He has multiple embolic events in the past.
Continue to monitor H/H
Continue IV amiodarone and could resume IV Lopressor if needed and tolerates
He has had 3 cardiac embolic events in the past 9 months felt to be due to noncompliance.
Long-term plan would likely be to repeat transesophageal echo (given large occlusive thrombus in left atrial appendage) if he recovers from abdominal procedures and then make a plan regarding risk of ablation. Although not in the foreseeable
future.
Monitor volume status. Diuresis as needed. Nephrology managing. Creatinine increased.
LFTs are abnormal consistent with shock.
Antibiotics per infectious disease
Long-term prognosis is likely poor
Discussed with nursing.
Progress Note - [employer] League Baseball Player
Subjective
Date of Service: February 23, 2025
Sedated on ventilator
Objective
Labs:
02/23/25 06:29
02/23/25 10:20
Labs
Hgb 10.0 g/dL (13.0-18.0) L 02/23/25 06:29
Hct 32.6 % (39.0-52.0) L 02/23/25 06:29
Plt Count 390 10^3/uL (130-400) 02/23/25 06:29
PT 20.3 Sec (11.4-14.6) H 02/23/25 01:07
INR 1.72 02/23/25 01:07
APTT 69.6 Sec (23.4-35.0) H 02/23/25 06:29
Sodium 143 mmol/L (135-145) 02/23/25 10:20
Potassium 5.3 mmol/L (3.5-5.1) H 02/23/25 10:20
BUN 46 mg/dl (9-20) H 02/23/25 10:20
Creatinine 1.9 mg/dL (0.7-1.3) H 02/23/25 10:20
Glucose 94 mg/dl (70-99) 02/23/25 10:20
Vital Signs and I&O:
Vital Signs
Temp Pulse Resp BP Pulse Ox
97.5 F 90 20 124/86 40
02/23/25 12:17 02/23/25 12:00 02/23/25 12:00 02/23/25 04:34 02/23/25 12:00
Vital Signs
Temp Pulse Resp BP Pulse Ox
97.5 F 90 20 124/86 40
02/23/25 12:17 02/23/25 12:00 02/23/25 12:00 02/23/25 04:34 02/23/25 12:00
Intake & Output
02/21/25 02/22/25 02/23/25 02/24/25
06:59 06:59 06:59 06:59
Intake Total 700.4 / 700.4 2901.4 / 2901.4 1795.4 / 1795.4 1904.6 / 1904.6
Output Total 860 / 860 2926 / 2926 752 / 752
Balance -159.6 / -159.6 -24.6 / -24.6 1043.4 / 1043.4 1894.6 / 1894.6
Physical Exam
Physical Exam
Critically ill
Heart: Distant heart sounds irregular
Lungs: Intubated with coarse breath sounds
Neuro: Sedated
[2025-02-23 12:57] LABS: Glucose - Point of Care 142 mg/dl (70-99)
--- NOTE | 2025-02-23 13:43 | PTCARENOTE ---
HD cath placed in RIJ by IR and placement confirmed by CXR. CRRT started under sterile technique without issue. See CRRT flowsheet. Assessment unchanged.
--- NOTE | 2025-02-23 14:02 | W.PN.DEATH ---
Pronouncement of
-
Code 99 called, patient asystole. CPR initiated, after 6 mins, family terminated compressions.
No spontaneous heart tones or respirations noted.
Patient not responsive to verbal stimuli.
Patient is pronounced .
Time of : 13:57
Date of : 02/23/25
Cause of : Septic shock, perforated bowel, profound acidemia, NAM
Family Notified: Yes
--- NOTE | 2025-02-23 14:30 | PTCARENOTE ---
Pt on epi, levo, vaso gtt. CRRT running for approx 20 min without issue. SBP noted to be spontaniously dropping quickly from 110s to 70s to 50s to non-pulsitile on A-line. Code called and CPR initiated. Family to bedside and CPR stopped by family
after approx 6min of compressions. Pt asystole immediately at pulse check. Dr. Rivera at bedside to pronounce time of at 1357. Family at bedside.
--- NOTE | 2025-02-23 14:52 | W.PN.UPDATE ---
Update Note
Progress Note Update
CRRT ran for ~25 minutes before hypotension worsened. No apparent issues with initiation of CRRT. Line functioning. no UF set. 2K bath.
Code 9 called, ran for several minutes before family withdrew care.
--- NOTE | 2025-02-23 14:53 | W.DCSUMMARY ---
Discharge Summary
Discharge Data
Date of Admission: 01/27/25
Date of Discharge: 02/23/25
-
Pending Results: No
Hospital Course
diagnosis:
Septic shock
Recurrent bowel perforation
Profound metabolic acidosis
Persistent fever
Acute blood loss anemia
Maroon-colored stools
Dysphagia
Atrial fibrillation with rapid ventricular response
Left atrial appendage thrombus
Acute hypoxic respiratory failure status post surgery
Hypokalemia
Hypophosphatemia
Hypernatremia
Acute toxic metabolic encephalopathy
Hyperthyroidism
Type 2 diabetes
Peripheral artery disease
Cigarette nicotine dependency
Consults: Vascular surgery, toolroom keeper, cardiology, ID, nephrology
Hospital course:
59-year-old male with a past medical history of cigarette nicotine dependency, CHF, atrial fibrillation, atrial appendage thrombus, and left lower extremity critical limb ischemia was admitted for SMA thrombosis. Patient was seen urgently by
vascular surgery, and taken to the OR. He underwent ex - lap with thrombectomy of SMA.
He also had atrial fibrillation with rapid ventricular response. He was seen in conjunction with cardiology, and treated with IV metoprolol, IV amiodarone drip, and IV heparin drip.
He developed a postoperative ileus. He was treated with bowel rest.
Patient was seen in conjunction with ID for persistent fever. He was treated with IV Zosyn, and transitioned to IV vancomycin. His fever resolved.
His hospital course was complicated by recurrent bowel perforations, requiring multiple surgeries and bowel resections.
Early on the morning of 02/23/2025, patient was found to have another bowel perforation, and taken emergently to the OR. Despite maximal medical intervention, his septic shock worsened. Patient was seen in conjunction with the toolroom keeper and
nephrology. He was started on CCRT. Code 9 was called, CPR was initiated. After 6 minutes, the family terminated compressions. Patient at 13:57 on 02/23/25. Family at bedside, condolences were offered.
Discharge Plan
-
Patient Disposition:
Date/Time
Date/Time: 02/23/25 13:57
Discharge Date and Time
Discharge Date/Time: 02/23/25 13:57
Print Language: CHINESE
--- NOTE | 2025-02-23 16:14 | CHAP ---
Responded to code. Emotional support provided to family members at bedside. Prayers for 'Delta' offered at their request.
--- NOTE | 2025-02-23 16:32 | CM ---
Code called.
Notified pt .
[2025-02-25 09:02] LABS: Glucose - Point of Care 181 mg/dl (70-99)
[2025-02-25 09:04] LABS: Glucose - Point of Care 39 mg/dl (70-99)
--- NOTE | 2025-02-25 18:06 | WOUNDNOTE ---
WO RN note: Notified [employer] stop [employer] vac [employer] billing as of 02/24/25 and vac pump picker (Work order # [id number]) for vac serial # [id number] (which was placed in OR on 02/23/25). ICU manager critical care unit gave the serial number and notified this
screenplay writer the vac pump is located in the ICU nurse's station.
== END 2025-02-23 13:57 | disposition expired | DRG 329 ==
LOC: ICU 05:15
PROVIDERS: Emergency Medicine; Internal Medicine; Internal Medicine Cardiovascular Disease; Internal Medicine Critical Care Medicine; Nurse Practitioner Family; Nurse Practitioner Primary Care; Physician Assistant; Radiology Vascular & Interventional Radiology; Registered Nurse; Student in an Organized Health Care Education/Training Program; Surgery; ADMITTING PHYSICIAN Internal Medicine; ATTENDING PHYSICIAN Family Medicine; CONSULT PHYSICIAN Internal Medicine Infectious Disease; CONSULT PHYSICIAN Specialist; CONSULT PHYSICIAN Surgery Vascular Surgery; EMERGENCY PHYSICIAN Emergency Medicine; FAMILY PHYSICIAN Family Medicine; OTHER PHYSICIAN Internal Medicine Cardiovascular Disease; OTHER PHYSICIAN Internal Medicine Critical Care Medicine; OTHER PHYSICIAN Internal Medicine Hematology & Oncology; OTHER PHYSICIAN Surgery
PROC: 02HV33Z Insertion of Infusion Device into Superior Vena Cava, Percutaneous Approach (ICD-10-PCS; 2025-01-27)
PROC: 5A09357 Assistance with Respiratory Ventilation, Less than 24 Consecutive Hours, Continuous Positive Airway Pressure (ICD-10-PCS; 2025-01-27)
PROC: 04C50ZZ Extirpation of Matter from Superior Mesenteric Artery, Open Approach (ICD-10-PCS; 2025-01-27)
PROC: 0DBU0ZZ Excision of Omentum, Open Approach (ICD-10-PCS; 2025-01-28)
PROC: B4141ZZ Fluoroscopy of Superior Mesenteric Artery using Low Osmolar Contrast (ICD-10-PCS; 2025-01-28)
PROC: 3E0436Z Introduction of Nutritional Substance into Central Vein, Percutaneous Approach (ICD-10-PCS; 2025-02-02)
PROC: 0DNU0ZZ Release Omentum, Open Approach (ICD-10-PCS; 2025-02-07)
PROC: 0DN80ZZ Release Small Intestine, Open Approach (ICD-10-PCS; 2025-02-07)
PROC: 0DTA0ZZ Resection of Jejunum, Open Approach (ICD-10-PCS; 2025-02-07)
PROC: 0BH17EZ Insertion of Endotracheal Airway into Trachea, Via Natural or Artificial Opening (ICD-10-PCS; 2025-02-07)
PROC: 5A1955Z Respiratory Ventilation, Greater than 96 Consecutive Hours (ICD-10-PCS; 2025-02-07)
PROC: 0DJW0ZZ Inspection of Peritoneum, Open Approach (ICD-10-PCS; 2025-02-08)
PROC: 0D180Z8 Bypass Small Intestine to Small Intestine, Open Approach (ICD-10-PCS; 2025-02-11)
PROC: 30233N1 Transfusion of Nonautologous Red Blood Cells into Peripheral Vein, Percutaneous Approach (ICD-10-PCS; 2025-02-17)
PROC: 5A1D90Z Performance of Urinary Filtration, Continuous, Greater than 18 hours Per Day (ICD-10-PCS; 2025-02-23)
PROC: 0DT80ZZ Resection of Small Intestine, Open Approach (ICD-10-PCS; 2025-02-23)
PROC: 5A12012 Performance of Cardiac Output, Single, Manual (ICD-10-PCS; 2025-02-23)
PROC: 03HY32Z Insertion of Monitoring Device into Upper Artery, Percutaneous Approach (ICD-10-PCS; 2025-02-23)
PROC: 5A1935Z Respiratory Ventilation, Less than 24 Consecutive Hours (ICD-10-PCS; 2025-02-23)
DX: K55.011 Focal (segmental) acute (reversible) ischemia of small intestine (principal); A41.9 Sepsis, unspecified organism; G92.8 Other toxic encephalopathy; R65.21 Severe sepsis with septic shock; I50.23 Acute on chronic systolic (congestive) heart failure; J95.821 Acute postprocedural respiratory failure; K63.1 Perforation of intestine (nontraumatic); K72.00 Acute and subacute hepatic failure without coma; E87.20 Acidosis, unspecified; I42.0 Dilated cardiomyopathy; I48.21 Permanent atrial fibrillation; I47.29 Other ventricular tachycardia; Z99.11 Dependence on respirator [ventilator] status; K56.50 Intestinal adhesions [bands], unspecified as to partial versus complete obstruction; R18.8 Other ascites; T81.320A Disruption or dehiscence of gastrointestinal tract anastomosis, repair, or closure, initial encounter; N17.9 Acute kidney failure, unspecified; D62 Acute posthemorrhagic anemia; E87.0 Hyperosmolality and hypernatremia; K56.7 Ileus, unspecified; K91.89 Other postprocedural complications and disorders of digestive system; K55.021 Focal (segmental) acute infarction of small intestine; Y83.6 Removal of other organ (partial) (total) as the cause of abnormal reaction of the patient, or of later complication, without mention of misadventure at the time of the procedure; I11.0 Hypertensive heart disease with heart failure; Y83.2 Surgical operation with anastomosis, bypass or graft as the cause of abnormal reaction of the patient, or of later complication, without mention of misadventure at the time of the procedure; I51.3 Intracardiac thrombosis, not elsewhere classified; E87.5 Hyperkalemia; E11.51 Type 2 diabetes mellitus with diabetic peripheral angiopathy without gangrene; E11.65 Type 2 diabetes mellitus with hyperglycemia; E87.6 Hypokalemia; E83.51 Hypocalcemia; E83.39 Other disorders of phosphorus metabolism; R13.10 Dysphagia, unspecified; E05.90 Thyrotoxicosis, unspecified without thyrotoxic crisis or storm; F17.210 Nicotine dependence, cigarettes, uncomplicated; F10.10 Alcohol abuse, uncomplicated; E66.9 Obesity, unspecified; F32.A Depression, unspecified; Z11.52 Encounter for screening for COVID-19; Z59.71 Insufficient health insurance coverage; Z60.2 Problems related to living alone; Z68.33 Body mass index [BMI] 33.0-33.9, adult; Z79.01 Long term (current) use of anticoagulants; Z79.84 Long term (current) use of oral hypoglycemic drugs; Z79.899 Other long term (current) drug therapy; Z82.49 Family history of ischemic heart disease and other diseases of the circulatory system; Z86.718 Personal history of other venous thrombosis and embolism; Z90.49 Acquired absence of other specified parts of digestive tract; Z91.148 Patient's other noncompliance with medication regimen for other reason
CPT/HCPCS: 88304; 88307; 93308; 35121; 36556; 36600; 70450; 71045; 74018; 74019; 74174; 74177; 76937; 80048; 80051; 80053; 80076; 80202; 81003; 81015; 82248; 82330; 82607; 82728; 82746; 82805; 82962; 83036; 83540; 83550; 83605; 83690; 83735; 83880; 84100; 84132; 84302; 84439; 84443; 84478; 84481; 84484; 85014; 85018; 85025; 85027; 85379; 85384; 85520; 85610; 85730; 86850; 86900; 86901; 86920; 87040; 87070; 87075; 87077; 87086; 87102; 87106; 87186; 87205; 87324; 87449; 87502; 87811; 92610; 93005; 93321; 93325; 93970; 94002; 94003; 94640; 94660; 96361; 96374; 96375; 96376; 97163; 97164; 97167; 97168; 97530; 97535; 99285; C1752; C1757; C1776; P9016; P9045; Q9950; Q9967